=== PATIENT | male | born 1975 | race Caucasian/White ===

== ENCOUNTER 2016-03-17 | Inpatient (IN) | END 2017-03-16 23:59 | disposition other institution (70) | DRG 130 | DX: J96.10 Chronic respiratory failure, unspecified whether with hypoxia or hypercapnia (principal); I46.9 Cardiac arrest, cause unspecified; G93.1 Anoxic brain damage, not elsewhere classified; R40.3 Persistent vegetative state; R13.10 Dysphagia, unspecified; Z99.11 Dependence on respirator [ventilator] status; Z93.0 Tracheostomy status; F32.9 Major depressive disorder, single episode, unspecified; Z86.74 Personal history of sudden cardiac arrest; K27.9 Peptic ulcer, site unspecified, unspecified as acute or chronic, without hemorrhage or perforation; F18.10 Inhalant abuse, uncomplicated; Z93.1 Gastrostomy status; Z16.11 Resistance to penicillins; M24.50 Contracture, unspecified joint; S06.890S Other specified intracranial injury without loss of consciousness, sequela; X83.8XXS Intentional self-harm by other specified means, sequela; Z66 Do not resuscitate ==

== ENCOUNTER 2017-03-17 | Inpatient (IN) | END 2018-03-16 23:59 | disposition still patient (30) | DRG 130 | DX: J96.10 Chronic respiratory failure, unspecified whether with hypoxia or hypercapnia (principal); I46.9 Cardiac arrest, cause unspecified; G93.1 Anoxic brain damage, not elsewhere classified; R40.3 Persistent vegetative state; R13.10 Dysphagia, unspecified; Z99.11 Dependence on respirator [ventilator] status; Z93.0 Tracheostomy status; F32.9 Major depressive disorder, single episode, unspecified; Z86.74 Personal history of sudden cardiac arrest; K27.9 Peptic ulcer, site unspecified, unspecified as acute or chronic, without hemorrhage or perforation; F18.10 Inhalant abuse, uncomplicated; Z93.1 Gastrostomy status; T71.162S Asphyxiation due to hanging, intentional self-harm, sequela; Z16.11 Resistance to penicillins; M24.50 Contracture, unspecified joint; S06.890S Other specified intracranial injury without loss of consciousness, sequela; X83.8XXS Intentional self-harm by other specified means, sequela; Z66 Do not resuscitate; R47.02 Dysphasia ==

== ENCOUNTER 2018-03-17 | Inpatient (IN) | END 2019-03-16 23:59 | disposition still patient (30) | DRG 130 | DX: J96.10 Chronic respiratory failure, unspecified whether with hypoxia or hypercapnia (principal); G93.1 Anoxic brain damage, not elsewhere classified; R40.3 Persistent vegetative state; R13.10 Dysphagia, unspecified; Z86.74 Personal history of sudden cardiac arrest; Z93.1 Gastrostomy status; T79.7XXA Traumatic subcutaneous emphysema, initial encounter; Z99.11 Dependence on respirator [ventilator] status; Z93.0 Tracheostomy status; F32.9 Major depressive disorder, single episode, unspecified; K27.9 Peptic ulcer, site unspecified, unspecified as acute or chronic, without hemorrhage or perforation; F18.10 Inhalant abuse, uncomplicated; T71.162S Asphyxiation due to hanging, intentional self-harm, sequela; Z16.11 Resistance to penicillins; M24.50 Contracture, unspecified joint; S06.890S Other specified intracranial injury without loss of consciousness, sequela; X83.8XXS Intentional self-harm by other specified means, sequela; Z66 Do not resuscitate; R47.02 Dysphasia; X58.XXXA Exposure to other specified factors, initial encounter ==

== ENCOUNTER 2018-09-18 08:10 | Inpatient (IN) | payer MEDICARE, MEDICAID ==
[~2018-09-18] VITALS: Ht 172.7 cm; Wt 77.1 kg
--- NOTE | 2018-09-18 08:10 | NUR ---
PT TRANSFERRED TO ER BED 1B FROM SUB ACUTE ROOM 403. PT PLACED ON HOOPER VENT WITH SAME SETTINGS SUB ACUTE ORDER - AC 14, VT 700, 35%. SHILEY 8 DCT TRACH IS PATENT AND SECURED. BACK UP TRACH AND AMBU BAG ARE AT BEDSIDE. VENT ALARMS ARE ON AND AUDIBLE. VENT IS PLUGGED INTO RED EMERGENCY OUTLET. WILL CONTINUE TO MONITOR.
--- NOTE | 2018-09-18 08:20 | NUR ---
PT IS UNRESPONSIVE AND NON-VERBAL, WHICH IS HIS BASELINE, TERESA SUBRAMANIAN RN FROM SUB-ACUTE UNIT FOR SUBCUTANEOUS EMPHYSEMA. PER REPORT, PT IS VENT-DEPENDENT AND HAD HIS ROUTINE TRACH CHANGE ON 09/16/18 AND THE NURSE NOTICED FACIAL SWELLING AROUND 0100 THIS MORNING (09/18/18) AND SUBSEQUENT CXR REVEALED SUBCUTANEOUS EMPHYSEMA. NEW TRACH WAS PLACED BY THE RT THIS AM AT 0715 AND STAT CXR RESULT IS PENDING. PT WAS MEDICATED W/ 3 MG LORAZEPAM G-TUBE AT 0730 INTERVENTIONIST. VSS. PT DOES NOT APPEAR TO BE IN ANY RESPIRATORY DISTRESS AT THIS TIME. PT DOES HAVE FACIAL EDEMA BUT NAD.
--- NOTE | 2018-09-18 08:29 | NUR ---
PER MORIS REAVES'S REPORT, PT IS DNR/DNT, BUT WAS REQUESTED BY PT'S MOTHER TO TRANSFER TO THE ER. PT'S MOTHER IS AT THE PT'S BEDSIDE AT THIS TIME.
--- NOTE | 2018-09-18 08:38 | NUR ---
PT'S PCP, DR. MORE, SPEAKING W/ ER MD ON PHONE RE PT'S STATUS.
--- NOTE | 2018-09-18 08:45 | NUR ---
KAYLAH AMARO SPEAKING W/ DR. GARCIA, SWIMMING POOL CLEANER, RE PT'S CASE.
--- NOTE | 2018-09-18 09:11 | NUR ---
20G IV ACCESS ESTABLISHED IN R FOOT W/ ER APPROVAL.
[2018-09-18] MEDS ORDERED: BETA15CR4 TP (09:22)
[2018-09-18] MEDS ORDERED: ACET-2154 GT (09:22)
[2018-09-18] MEDS ORDERED: LORA1TAB GT (09:22)
[2018-09-18] MEDS ORDERED: OMEP20CA10 GT (09:22)
[2018-09-18] MEDS ORDERED: VIT60OIN3 TP (09:22)
[2018-09-18] MEDS ORDERED: LACT-209 GT (09:22)
[2018-09-18] MEDS ORDERED: [UNRECOGNIZED DRUG - OTHER] TP (09:22)
[2018-09-18] MEDS ORDERED: IPRATROPIUM NEB (09:22)
[2018-09-18] MEDS ORDERED: PHEN100C4 GT (09:22)
[2018-09-18] MEDS ORDERED: PHEN60TA11 GT (09:22)
[2018-09-18] MEDS ORDERED: COD56OIN TP (09:22)
[2018-09-18] MEDS ORDERED: HYDR1SOL TP (09:22)
[2018-09-18] MEDS ORDERED: PROT946L GT (09:22)
[2018-09-18] MEDS ORDERED: CHOL400T GT (09:22)
[2018-09-18] MEDS ORDERED: CLOT15CR63 TP (09:22)
[2018-09-18] MEDS ORDERED: [UNRECOGNIZED DRUG - CODE] GT (09:22)
[2018-09-18] MEDS ORDERED: ALBU2.5V13 NEB ×2 (09:22)
[2018-09-18] MEDS ORDERED: POLY17PO4 GT (09:22)
[2018-09-18] MEDS ORDERED: PROC25SU29 RC ×2 (09:22)
[2018-09-18 09:30] LABS: CREATININE 0.9 mg/dL (0.6-1.3); POTASSIUM 4.7 mmol/L (3.5-5.1)
[2018-09-18 09:36] LABS: BILIRUBIN,DIRECT 0.2 mg/dL (0.0-0.2); BILIRUBIN,TOTAL 0.7 mg/dL (0.2-1.0); TOTAL PROTEIN, SERUM 7.4 g/dL (6.4-8.2)
[2018-09-18 09:38] LABS: BASOPHILS # (AUTO) 0.1 K/uL (0.0-8.0); BASOPHILS % (AUTO) 0.3 % (0.0-2.0); EOSINOPHILS % (AUTO) 0.1 % (0.0-7.0); HEMATOCRIT 49.2 % (36.7-47.1); HEMOGLOBIN 16.3 g/dL (12.5-16.3); LYMPHOCYTES # (AUTO) 0.9 K/uL (20.0-40.0); MEAN CORPUSCULAR HEMOGLOBIN 32.1 uug (23.8-33.4); MEAN CORPUSCULAR HGB CONC 33 g/dL (32.5-36.3); MEAN CORPUSCULAR VOLUME 97.2 fL (73.0-96.2); MONOCYTES % (AUTO) 4.5 % (0.0-11.0); NEUTROPHILS # (AUTO) 19.6 K/uL (1.8-8.9); NEUTROPHILS % (AUTO) 91.1 % (38.5-71.5); PLATELET COUNT (AUTO) 122 K/uL (152-348); RED BLOOD CELL COUNT(AUTO) 5.06 MIL/uL (4.06-5.63); WHITE BLOOD COUNT (AUTO) 21.5 K/uL (3.6-10.2)
[2018-09-18 09:39] LABS: *BILIRUBIN,URIN NEGATIVE (NEGATIVE); *BLOOD, URINE NEGATIVE (NEGATIVE); *CLARITY,URINE CLEAR (CLEAR); *COLOR,URINE DARK YELLOW (YELLOW); *KETONES,URINE NEGATIVE (NEGATIVE); *UROBILINOGEN,URINE 0.2 E.U./dl (NORMAL); LEUKOCYTE ESTERASE ,URINE NEGATIVE (NEGATIVE); NITRITE, URINE NEGATIVE (NEGATIVE); PH,URINE 5.5 (5.0-8.0); UGLUCOSE NEGATIVE (NEGATIVE)
[2018-09-18 09:45] LABS: BACTERIA,URINE FEW /HPF (NONE SEEN); RBC,URINE NONE SEEN /HPF (0-3); SQUAMOUS EPITHELIAL CELL,UR FEW /HPF (NONE SEEN); WBC,URINE 0-3 /HPF (0-3)
[2018-09-18] MEDS ORDERED: IV NORMAL SALINE 1000 ML BAG IV ONE (10:00)
[2018-09-18] MEDS ORDERED: METRONIDAZOLE 500 MG/NS 100ML 100 ML IV ONE (10:00)
[2018-09-18] MEDS ORDERED: VANCOMYCIN IV 1,000 MG in IV DEXTROSE 5% 250 ML IV ONE (10:00)
[2018-09-18] MEDS ORDERED: CEFEPIME HCL 1 G in IV DEXTROSE 5% 50 ML IV ONE (10:00)
[2018-09-18] MEDS ORDERED: CEFEPIME HCL 1 G VIAL ONE (10:11)
--- NOTE | 2018-09-18 10:45 | NUR ---
ADMITTING REPORT GIVEN TO GEOFFREY REAVES.
--- NOTE | 2018-09-18 11:10 | NUR ---
Pt. admitted to [facility], under care of CARTER PARKS NP. Belongs List completed
--- NOTE | 2018-09-18 11:10 | NUR ---
PT TRANSFERRED TO ROOM 303. AMBU BAG AND BACK UP TRACH ARE AT BEDSIDE. VENT PLUGGED INTO RED EMERGENCY OUTLET. NO COMPLICATIONS DURING TRANSPORT.
--- NOTE | 2018-09-18 11:15 | NUR ---
Received patient from ER, Resident in Bed, trach tube intact and midline connected to Ventilator. No signs of Respiratory distress noted. Suctioned PRN. No signs of Pain or Discomfort. Right Foot Peripheral Line gauge 20 intact.l. Gtube intact and patent. kept clean and dry.
[2018-09-18] MEDS ORDERED: PROCHLORPERAZINE MALEATE 25 MG SUPP.RECT RC PRN (12:15)
[2018-09-18] MEDS ORDERED: JEVITY 1.2 1000 ML LIQUID GT SCH (12:15)
[2018-09-18] MEDS ORDERED: CHLORPROMAZINE GT SCH (12:15)
[2018-09-18] MEDS ORDERED: LORAZEPAM 1 MG TABLET GT PRN (12:15)
[2018-09-18 12:26] VITALS: BP 92/69
[2018-09-18] MEDS ORDERED: ONDANSETRON 4 MG/2 ML VIAL IV PRN (12:30)
--- NOTE | 2018-09-18 13:15 | NUR ---
Pt brought down for CT chest with radiology and RT. Pt stable and nad noted upon leaving the floor.
--- NOTE | 2018-09-18 13:27 | NUR ---
Resident in Bed, ISABELL Midline with single Lumen Inserted by PICC LINE RN.
[2018-09-18] MEDS: JEVITY 1.2 1000 ML LIQUID GT SCH (14:00)
[2018-09-18] MEDS ORDERED: CEFEPIME HCL 1 G in IV DEXTROSE 5% 50 ML IV SCH (14:00)
[2018-09-18] MEDS: IV NS 1000 ML 1,000 ML IV PRN (14:10)
[2018-09-18] MEDS ORDERED: chlorproMAZINE 25 MG TABLET GT PRN (14:30)
[2018-09-18] MEDS: ALBUTEROL SULFATE 2.5 MG/ 0.5 ML NEBU NEB SCH ×2 (15:05→19:08)
[2018-09-18] MEDS: IPRATROPIUM BROMIDE 0.5 MG/2.5 ML NEBU NEB SCH ×2 (15:05→19:08)
[2018-09-18] MEDS: METRONIDAZOLE 500 MG/NS 100ML 500 MG in PREMIXED 1 EACH IV SCH ×2 (15:14→21:31)
--- NOTE | 2018-09-18 15:14 | NUR ---
CLINICAL PHARMACY NOTE: VANCOMYCIN DOSING Request for vancomycin dosing on 42 y/o male 172.72cm 76.2Kg for sepsis temp 99.6 WBC 21.5 BUN 15 Scr 0.9 also on Cefepime and Flagyl Received vancomycin 1gm in ER. Continue vancomycin 1gm ivpb q10h estimated trough 15.7. Will order trough level prior to 4th dose. Will continue to monitor
[2018-09-18] MEDS ORDERED: ALBUTEROL SULFATE 2.5 MG/ 0.5 ML NEBU NEB PRN (15:30)
--- NOTE | 2018-09-18 15:34 | NUR ---
Spoke with Dr. Hammond on the telephone and reported CT chest results. New orders received and carried out. Ct Tech made aware of MD's plans.
[2018-09-18 15:53] VITALS: BP 97/66
--- NOTE | 2018-09-18 16:56 | NUR ---
Called KAUSHIK Blair (Mother) and Left Voicemail regarding Trach Placement and Bronchoscopy Consent, awaiting for call back.
[2018-09-18] MEDS ORDERED: Medication Not On Formulary EA (Omeprazole 20 MG) GT SCH (17:00)
--- NOTE | 2018-09-18 17:25 | NUR ---
Spoke with Gelacio (mother) on the telephone and made aware regarding pt's bronchoscopy procedure for 1000 tomorrow. Mother stated that she will be here around 0930 to speak with the MD before signing the consent.
[2018-09-18] MEDS: PANTOPRAZOLE ORAL SUSPENSION 40 MG SUSPDR.PKT GT SCH (17:26)
[2018-09-18] MEDS: CEFEPIME HCL 1 G in IV DEXTROSE 5% 50 ML IV SCH (17:26)
--- NOTE | 2018-09-18 20:00 | NUR ---
RECEIVED PT. OPENS HIS EYES TO ANY NOXIOUS STIMULI. TRACH TO VENT W/ SETTINGS OF AC-14, TV-700, FIO2-35% W/ O2 SAT OF 99%. SUCTIONED VIA TRACH W/ MINIMAL TANNISH THIN MUCOUS. G-TUBE INTACT & CHECKED RESIDUAL NONE NOTED. ON TUBE OF JEVITY 1.2 @70CC/HR. IVF NS @ 75CC/HR VIA ISABELL MIDLINE REPOSITIONED ON HIS SIDE W/ HOB ELEVATED.
[2018-09-18] MEDS: VANCOMYCIN IV 1 G in PREMIXED 0 EACH IV SCH (20:39)
[2018-09-18] MEDS: CHOLECALCIFEROL 400 UNITS TABLET GT SCH (20:39)
[2018-09-18] MEDS: PHENOBARBITAL 60 MG TABLET GT SCH (20:39)
[2018-09-18] MEDS: PHENYTOIN 100 MG/4 ML UDC GT SCH (20:39)
[2018-09-18 20:40] VITALS: BP 101/64
[2018-09-18] MEDS: PROTEIN SUPPLEMENT (PROSTAT) 30 ML LIQUID GT SCH (20:46)
[2018-09-18] MEDS: COD LIVER OIL/ZINC OXIDE OINT 113 GM TUBE TP SCH (20:51)
[2018-09-18] MEDS ORDERED: Medication Not On Formulary EA (Protein Supplement (Promod) 30 ML) GT SCH (21:00)
[2018-09-18] MEDS ORDERED: PHENYTOIN SODIUM EXTENDED 100 MG CAPSULE.SA PO SCH (21:00)
--- NOTE | 2018-09-18 22:00 | NUR ---
HS CARE DONE REPOSITIONED W/ HOB ELEVATED.
[2018-09-19] VITALS (10 sets, daily range): BP systolic 97–135; BP diastolic 56–72
--- NOTE | 2018-09-19 | NUR ---
OFF G-TUBE FDG, PT. IS NPO.
[2018-09-19] MEDS: CEFEPIME HCL 1 G in IV DEXTROSE 5% 50 ML IV SCH ×3 (01:57→17:50)
[2018-09-19] MEDS: METRONIDAZOLE 500 MG/NS 100ML 500 MG in PREMIXED 1 EACH IV SCH ×3 (05:19→21:43)
[2018-09-19 05:28] LABS: BASOPHILS % (AUTO) 0.5 % (0.0-2.0); EOSINOPHILS # (AUTO) 0.1 K/uL (0.0-0.7); EOSINOPHILS % (AUTO) 1.5 % (0.0-7.0); HEMATOCRIT 42.8 % (36.7-47.1); HEMOGLOBIN 14.6 g/dL (12.5-16.3); LYMPHOCYTES # (AUTO) 1.4 K/uL (20.0-40.0); LYMPHOCYTES % (AUTO) 15.8 % (20.5-51.5); MEAN CORPUSCULAR HEMOGLOBIN 32.9 uug (23.8-33.4); MEAN CORPUSCULAR HGB CONC 34 g/dL (32.5-36.3); MEAN CORPUSCULAR VOLUME 96.6 fL (73.0-96.2); MONOCYTES # (AUTO) 0.7 K/uL (2.0-10.0); MONOCYTES % (AUTO) 7.4 % (0.0-11.0); NEUTROPHILS # (AUTO) 6.8 K/uL (1.8-8.9); NEUTROPHILS % (AUTO) 74.8 % (38.5-71.5); PLATELET COUNT (AUTO) 99 K/uL (152-348); RED BLOOD CELL COUNT(AUTO) 4.43 MIL/uL (4.06-5.63); WHITE BLOOD COUNT (AUTO) 9.1 K/uL (3.6-10.2)
--- NOTE | 2018-09-19 05:40 | NUR ---
AM CARE DONE. ORAL CARE DONE. REMAINS NPO.REPOSITIONED W/ HOB ELEVATED.
[2018-09-19 05:47] LABS: BILIRUBIN,TOTAL 0.6 mg/dL (0.2-1.0); CREATININE 0.7 mg/dL (0.6-1.3); MAGNESIUM 1.8 mg/dL (1.8-2.4); PHOSPHOROUS 2.5 mg/dL (2.5-4.9); POTASSIUM 3.7 mmol/L (3.5-5.1); TOTAL PROTEIN, SERUM 6.2 g/dL (6.4-8.2)
[2018-09-19 05:53] LABS: LYMPHOCYTES % (MANUAL) 16 % (20-40); MONOCYTES % (MANUAL) 7 % (2-10); NEUTROPHILS % (MANUAL) 77 % (42-75)
[2018-09-19] MEDS: VANCOMYCIN IV 1 G in PREMIXED 0 EACH IV SCH ×2 (06:13→16:19)
[2018-09-19] MEDS: ALBUTEROL SULFATE 2.5 MG/ 0.5 ML NEBU NEB SCH ×4 (07:28→19:15)
[2018-09-19] MEDS: IPRATROPIUM BROMIDE 0.5 MG/2.5 ML NEBU NEB SCH ×4 (07:28→19:15)
--- NOTE | 2018-09-19 07:28 | NUR ---
PT RECEIVED TRACH TO VENT ON CMV, PT IS ON A HOOPER VENT ON SETTINGS OF A/C 14, VT 700, AND 35% FIO2. VENT PARAMETERS AND ALARMS CHECKED, ALARMS ARE AUDIBLE. SALVADOR #8 TRACH IS PATENT AND SECURE. IN-LINE TX TOLERATED WELL, NO ADVERSE REACTION NOTED. PT IS TOLERATING VENT SETTINGS WELL, NO RESP. DISTRESS NOTED AT THIS TIME. AMBU-BAG AND BACK-UP TRACH AT BEDSIDE. VENT PLUGGED INTO RED OUTLET. SUCTION PRN. WILL CONTINUE TO MONITOR.
[2018-09-19] MEDS ORDERED: LIDOCAINE 2% 30 ML JELLY MC ONE (07:40)
[2018-09-19] MEDS ORDERED: LIDOCAINE 4% TOPICAL 50 ML BOTTLE TP ONE ×2 (07:40→10:00)
[2018-09-19] MEDS: PHENOBARBITAL 60 MG TABLET GT SCH ×2 (08:07→21:29)
[2018-09-19] MEDS: PHENYTOIN 100 MG/4 ML UDC GT SCH ×2 (08:07→21:29)
[2018-09-19] MEDS: PANTOPRAZOLE ORAL SUSPENSION 40 MG SUSPDR.PKT GT SCH ×2 (08:07→16:19)
[2018-09-19] MEDS: CHOLECALCIFEROL 400 UNITS TABLET GT SCH ×2 (08:08→21:29)
[2018-09-19] MEDS: PROTEIN SUPPLEMENT (PROSTAT) 30 ML LIQUID GT SCH ×2 (08:08→21:43)
[2018-09-19] MEDS: MIRALAX 17 GM POWD.PACK GT SCH (08:09)
[2018-09-19] MEDS: COD LIVER OIL/ZINC OXIDE OINT 113 GM TUBE TP SCH ×2 (08:09→21:32)
[2018-09-19] MEDS: VITAMINS A AND D OINT TP SCH (08:09)
[2018-09-19 09:56] LABS: ABG BASE EXCESS -1.1 mmol/L; ABG HCO3 22.8 mmol/L; ABG PH 7.419 (7.350-7.450); ABG PO2 127.6 mmHg (75.0-100.0); ABG SITE RIGHT RADIAL; ABG TOTAL HEMOGLOBIN 15.6 G/dL (13.5-18.0); COHb 1.5 % (0.5-1.5); MetHb 0.2 % (0.0-1.5); O2Hb 97.4 % (94.0-97.0); VENT MODE VENT - A/C; VT, ABG 700 mL
[2018-09-19] MEDS ORDERED: MIDAZOLAM HCL 2 MG/2 ML VIAL IV ONE ×2 (10:15→11:00)
--- NOTE | 2018-09-19 10:45 | NUR ---
Dr. Hammond in the unit for broncoscopy consent signed by pt's mother. patient premedicated with versed 2mg as ordered by Md. vitals stable: HR 99 sbp of 97/64, saturation in the 95-98%. procedure lasted from this time to 1053 trache replaced and shiley #8 XLT distal left in placed. R. T. team at bedside and assisted with procedure, saturation wnl see VS flowsheet. 2nd dose of versed not given. waste of med done per px protocol with charge r.n. as witness. During recovery time patient remained with vitals and saturation wnl.
--- NOTE | 2018-09-19 10:55 | NUR ---
PRE PROCEDURE PT PLACED ON 100% FIO2. LIDOCAINE 4% NEBULIZED PRE PROCEDURE PER DR. GARCIA ORDER. TRACH CHANGE PERFORMED BY NIKI RT AND HARMEET RT, DR. GARCIA AT BEDSIDE. TRACH CHANGE SUCCESSFUL WITHOUT COMPLICATIONS. NEW SHILEY #[id number] DISTAL IS IN PLACE, TRACH IS PATENT AND SECURE. BRONCHOSCOPY PERFORMED BY DR. GARCIA, RT NIKI, HARMEET AND MINDA ASSISTED. PROCEDURE WENT WITHOUT INCIDENT. FIO2 TITRATED BACK TO 35%, SPO2 NORMAL. NO SOB NOTED. WILL CONTINUE TO MONITOR.
[2018-09-19] MEDS ORDERED: MIDAZOLAM HCL 2 MG/2 ML VIAL IV PRN (11:00)
[2018-09-19] MEDS: IV NS 1000 ML 1,000 ML IV PRN (11:14)
[2018-09-19] MEDS: ACETAMINOPHEN 325 MG TABLET GT PRN (12:50)
[2018-09-19] MEDS: JEVITY 1.2 1000 ML LIQUID GT SCH (12:50)
--- NOTE | 2018-09-19 14:16 | NUR ---
CLINICAL PHARMACY NOTE: VANCOMYCIN DOSING S:Continue vancomycin dosing on 42 y/o male 172.72cm 76.2Kg for sepsis O:temp 99.7 WBC 9.1 BUN 14 Scr 0.7 also on Cefepime and Flagyl A/P: Will continue Vancomycin 1gram IV every 10 hrs(3rd dose due at 1700 today) and draw trough by 4th dose(ordered for tomorrow at 0230) for expected trough around 15. Will endorse nurse to hold dose for over 20. Will follow the level in am for further dosing.
[2018-09-20 00:20] VITALS: BP 121/61
[2018-09-20] MEDS: CEFEPIME HCL 1 G in IV DEXTROSE 5% 50 ML IV SCH ×3 (01:52→17:15)
[2018-09-20] MEDS: IV NS 1000 ML 1,000 ML IV PRN ×2 (02:00→21:30)
[2018-09-20] MEDS: VANCOMYCIN IV 1 G in PREMIXED 0 EACH IV SCH (03:28)
[2018-09-20 04:05] VITALS: BP 120/66
[2018-09-20 05:25] LABS: BASOPHILS # (AUTO) 0.1 K/uL (0.0-8.0); BASOPHILS % (AUTO) 0.9 % (0.0-2.0); EOSINOPHILS # (AUTO) 0.2 K/uL (0.0-0.7); EOSINOPHILS % (AUTO) 3.4 % (0.0-7.0); HEMATOCRIT 40.2 % (36.7-47.1); HEMOGLOBIN 13.7 g/dL (12.5-16.3); LYMPHOCYTES # (AUTO) 1.1 K/uL (20.0-40.0); LYMPHOCYTES % (AUTO) 17.3 % (20.5-51.5); MEAN CORPUSCULAR HEMOGLOBIN 32.6 uug (23.8-33.4); MEAN CORPUSCULAR HGB CONC 34 g/dL (32.5-36.3); MEAN CORPUSCULAR VOLUME 95.8 fL (73.0-96.2); MONOCYTES # (AUTO) 0.6 K/uL (2.0-10.0); MONOCYTES % (AUTO) 8.9 % (0.0-11.0); NEUTROPHILS # (AUTO) 4.6 K/uL (1.8-8.9); NEUTROPHILS % (AUTO) 69.5 % (38.5-71.5); PLATELET COUNT (AUTO) 99 K/uL (152-348); WHITE BLOOD COUNT (AUTO) 6.7 K/uL (3.6-10.2)
[2018-09-20 05:31] LABS: CREATININE 0.7 mg/dL (0.6-1.3); MAGNESIUM 1.7 mg/dL (1.8-2.4); PHOSPHOROUS 2.7 mg/dL (2.5-4.9); POTASSIUM 3.6 mmol/L (3.5-5.1)
[2018-09-20] MEDS: METRONIDAZOLE 500 MG/NS 100ML 500 MG in PREMIXED 1 EACH IV SCH ×3 (06:28→22:12)
[2018-09-20] MEDS: ALBUTEROL SULFATE 2.5 MG/ 0.5 ML NEBU NEB SCH ×4 (07:15→19:25)
[2018-09-20] MEDS: IPRATROPIUM BROMIDE 0.5 MG/2.5 ML NEBU NEB SCH ×4 (07:15→19:25)
[2018-09-20] MEDS: PHENOBARBITAL 60 MG TABLET GT SCH ×2 (08:01→21:47)
[2018-09-20] MEDS: CHOLECALCIFEROL 400 UNITS TABLET GT SCH ×2 (08:02→21:47)
[2018-09-20] MEDS: PHENYTOIN 100 MG/4 ML UDC GT SCH ×2 (08:02→21:46)
[2018-09-20] MEDS: MIRALAX 17 GM POWD.PACK GT SCH (08:02)
[2018-09-20] MEDS: PANTOPRAZOLE ORAL SUSPENSION 40 MG SUSPDR.PKT GT SCH ×2 (08:02→17:15)
[2018-09-20 08:04] VITALS: BP 131/60
[2018-09-20] MEDS: VITAMINS A AND D OINT TP SCH (08:11)
[2018-09-20] MEDS: COD LIVER OIL/ZINC OXIDE OINT 113 GM TUBE TP SCH ×2 (08:12→21:51)
[2018-09-20] MEDS: PROTEIN SUPPLEMENT (PROSTAT) 30 ML LIQUID GT SCH ×2 (08:12→21:45)
--- NOTE | 2018-09-20 10:20 | NUR ---
CLINICAL PHARMACY NOTE: VANCOMYCIN DOSING S:To continue vancomycin dosing on 42 y/o male patient for sepsis (likely due to HCAP) O:temp 98.3 WBC 6.7 BUN 13 Scr 0.7 Vanco trough level: 11.6 (on 09/20 at 0230) wt 76 kg ht 172.7 cm A/P: Since vanco trough level is 11.6 mcg/ml, will change dose to Vancomycin 1250 mg IV every 10 hrs. 1st dose due at 1200 today) and draw trough by 4th dose(not yet ordered) for expected trough around 15. Will follow.
[2018-09-20] MEDS: JEVITY 1.2 1000 ML LIQUID GT SCH (11:43)
[2018-09-20] MEDS: MAGNESIUM SULFATE/D5W 100 ML IV SCH ×2 (11:44→13:21)
[2018-09-20 12:00] VITALS: BP 124/61
[2018-09-20] MEDS: VANCOMYCIN IV 1,250 MG in IV DEXTROSE 5% 500 ML IV SCH ×2 (12:15→22:47)
[2018-09-20 16:00] VITALS: BP 119/59
--- NOTE | 2018-09-20 16:50 | NUR ---
Report given to Flash Bolden all questions answered. pending medication administration and I&O doc. endorse to Flash Addendum: 09/20/18 at 1738 by KATI YAO RN patient left with vent and trache in place care done PP. Vent setting of A/C14, tv700, FIO2 35%. G-T to feeding JV 1.2 at 70cc/hr. no residuals, and pt. tolerating well. No skin complications noted. Patient afebrile.
--- NOTE | 2018-09-20 18:03 | NUR ---
PT CONTINUES ON MECHANICAL VENTILATION, NO S/S OF RESPIRATORY DISTRESS NOTED THROUGHOUT SHIFT. DOING WELL ON CURRENT SETTINGS, NO CHANGES MADE. WILL CONTINUE TO MONITOR.
[2018-09-20 20:03] VITALS: BP 151/72
--- NOTE | 2018-09-20 21:52 | NUR ---
Desitin medication does not have a barcode. Medication was transferred with patient from the subacute unit.
--- NOTE | 2018-09-20 23:01 | NUR ---
PT RECEIVED ON A HOOPER VENTILATOR WITH THE FOLLOWING SETTINGS THAT ARE CHARTED ON THE MECHANICAL VENT NOTES. TRACH TUBE IS PATENT AND SECURED WITH TRACH TIES. HME CHANGED. HHN TX GIVEN PER MD ORDER'S AND WAS TOLERATED WELL W/ NO ADVERSE REACTIONS. SUCTIONED SMALL AMOUNTS OF THICK WHITE/YELLOW SECRETIONS. VENT ALARMS ARE ON AND AUDIBLE. VENT IS PLUGGED IN THE RED OUTLET. BACK UP TRACH AND AMBU BAG IS BY BEDSIDE. PT IS TOLERATING CURRENT VENT SETTINGS WELL AT THIS TIME WITH NO SOB NOTED. WILL CONTINUE TO MONITOR.
[2018-09-21] VITALS: BP 111/51
[2018-09-21] MEDS: CEFEPIME HCL 1 G in IV DEXTROSE 5% 50 ML IV SCH ×3 (01:14→16:45)
[2018-09-21 04:00] VITALS: BP 120/52
[2018-09-21] MEDS: METRONIDAZOLE 500 MG/NS 100ML 500 MG in PREMIXED 1 EACH IV SCH ×3 (05:10→21:04)
[2018-09-21 05:45] LABS: CREATININE 0.7 mg/dL (0.6-1.3); MAGNESIUM 1.9 mg/dL (1.8-2.4); POTASSIUM 3.7 mmol/L (3.5-5.1)
[2018-09-21 05:48] LABS: BASOPHILS # (AUTO) 0.1 K/uL (0.0-8.0); EOSINOPHILS # (AUTO) 0.2 K/uL (0.0-0.7); EOSINOPHILS % (AUTO) 3.9 % (0.0-7.0); HEMOGLOBIN 13.7 g/dL (12.5-16.3); LYMPHOCYTES # (AUTO) 0.9 K/uL (20.0-40.0); LYMPHOCYTES % (AUTO) 17.5 % (20.5-51.5); MEAN CORPUSCULAR HEMOGLOBIN 32.4 uug (23.8-33.4); MEAN CORPUSCULAR HGB CONC 34 g/dL (32.5-36.3); MONOCYTES # (AUTO) 0.5 K/uL (2.0-10.0); MONOCYTES % (AUTO) 9.1 % (0.0-11.0); NEUTROPHILS # (AUTO) 3.7 K/uL (1.8-8.9); NEUTROPHILS % (AUTO) 68.5 % (38.5-71.5); PLATELET COUNT (AUTO) 107 K/uL (152-348); RED BLOOD CELL COUNT(AUTO) 4.21 MIL/uL (4.06-5.63); WHITE BLOOD COUNT (AUTO) 5.4 K/uL (3.6-10.2)
--- NOTE | 2018-09-21 07:41 | NUR ---
RECEIVED PT ON HOOPER VENT. PT IS TRACHED WITH A SHILEY 8 XLTD TRACH. TRACH IS PATENT AND SECURED VIA TRACH TIES. REFER TO RESPIRATORY VENT COMPLEX CHARTING FOR VENT SETTINGS. VENT ALARMS CHECKED, ARE ON AND FUNCTIONING PROPERLY. AMBU BAG AND BACK UP TRACH ARE AT BEDSIDE. SUCTIONED MODERATE AMOUNT OF THICK, PALE SECRETIONS. AMBU BAG IS AT BEDSIDE. WILL CONTINUE TO MONITOR.
[2018-09-21 07:45] VITALS: BP 127/72
[2018-09-21] MEDS: VANCOMYCIN IV 1,250 MG in IV DEXTROSE 5% 500 ML IV SCH ×2 (07:48→18:38)
[2018-09-21] MEDS: ALBUTEROL SULFATE 2.5 MG/ 0.5 ML NEBU NEB SCH ×4 (07:55→19:15)
[2018-09-21] MEDS: IPRATROPIUM BROMIDE 0.5 MG/2.5 ML NEBU NEB SCH ×4 (07:55→19:15)
--- NOTE | 2018-09-21 08:00 | NUR ---
RESTING COMFORTABLY, NO SS OF PAIN OR RESPIRATORY DISTRESS WITH CURRENT VENT SETTINGS.
[2018-09-21] MEDS: MIRALAX 17 GM POWD.PACK GT SCH (08:05)
[2018-09-21] MEDS: PANTOPRAZOLE ORAL SUSPENSION 40 MG SUSPDR.PKT GT SCH ×2 (08:06→16:31)
[2018-09-21] MEDS: PHENOBARBITAL 60 MG TABLET GT SCH ×2 (08:06→20:00)
[2018-09-21] MEDS: PHENYTOIN 100 MG/4 ML UDC GT SCH ×2 (08:06→20:00)
[2018-09-21] MEDS: CHOLECALCIFEROL 400 UNITS TABLET GT SCH ×2 (08:06→20:00)
[2018-09-21] MEDS: PROTEIN SUPPLEMENT (PROSTAT) 30 ML LIQUID GT SCH ×2 (08:07→20:03)
[2018-09-21] MEDS: COD LIVER OIL/ZINC OXIDE OINT 113 GM TUBE TP SCH ×2 (08:08→20:01)
[2018-09-21] MEDS: VITAMINS A AND D OINT TP SCH (08:09)
--- NOTE | 2018-09-21 10:09 | NUR ---
CLINICAL PHARMACY NOTE: VANCOMYCIN DOSING S:To continue vancomycin dosing on 42 y/o male patient for sepsis (likely due to HCAP) O:temp 98.7 WBC 5.4 BUN 10 Scr 0.7 Vanco trough level: 11.6 (on 09/20 at 0230) wt 76 kg ht 172.7 cm A/P: Will continue same dose of Vancomycin 1250 mg IV every 10 hrs for now. Plan to draw vanco trough level before 4 th dsoe (ordered for today at 1730). Pharmacy shall review the level & adjust the dose if needed. Will follow. Addendum: 09/21/18 at 1857 by ALAINA DAVIES vancomycin trough is back @ 16.9 within therapeutic range will continue with the same dose.
[2018-09-21 11:40] VITALS: BP 113/60
--- NOTE | 2018-09-21 12:00 | NUR ---
TOLERATING TF WELL AT 70ML/HR. CONTINUE WITH IV ANTIBIOTIC NO REACTION NOTED
[2018-09-21 16:00] VITALS: BP 109/70
--- NOTE | 2018-09-21 16:22 | NUR ---
NO ACUTE CHANGE CONTINUE CURRENT TX PLAN
[2018-09-21] MEDS: IV NS 1000 ML 1,000 ML IV PRN (16:31)
--- NOTE | 2018-09-21 19:15 | NUR ---
RECEIVED PT ON HOOPRE VENT AC 14 VT 700 FIO2 35%. PT AWAKE AND ALERT. TRACH IN PLACED AND SECURED WITH TRACH TIE. TRACH CARE DONE WITHOUT COMPLICATIONS NOTED. BACK UP TRACH AND AMBU BAG AT BEDSIDE. IN LINE TX GIVEN ORDERED. SUCTION LAVAGE PRN. VENT CHECKED, ALARMS WORKING WELL AND AUDIBLE. NO DISTRESS NOTED AT THIS TIME. WILL CONTINUE TO MONITOR.
[2018-09-21 19:30] VITALS: BP 130/76
[2018-09-21] MEDS: JEVITY 1.2 1000 ML LIQUID GT SCH (22:00)
[2018-09-21] MEDS: ACETAMINOPHEN 325 MG TABLET GT PRN (23:59)
[2018-09-22 00:26] VITALS: BP 142/85
[2018-09-22] MEDS: CEFEPIME HCL 1 G in IV DEXTROSE 5% 50 ML IV SCH ×3 (01:53→17:06)
[2018-09-22] MEDS: VANCOMYCIN IV 1,250 MG in IV DEXTROSE 5% 500 ML IV SCH ×2 (03:04→13:49)
[2018-09-22 04:00] VITALS: BP 139/80
[2018-09-22] MEDS: METRONIDAZOLE 500 MG/NS 100ML 500 MG in PREMIXED 1 EACH IV SCH ×2 (05:10→16:09)
--- NOTE | 2018-09-22 05:38 | NUR ---
Patient rested well in between care; suctioned secretions via trache and orally; low grade fever last night at 100.3; cooling measures done and Tylenol administered via GT; pt tolerated GTF no residual; repositioned q2h; aspiration precautions observed; trace and oral care done; continue to monitor; continue plan of care.
[2018-09-22 05:40] LABS: BASOPHILS % (AUTO) 0.9 % (0.0-2.0); EOSINOPHILS # (AUTO) 0.2 K/uL (0.0-0.7); EOSINOPHILS % (AUTO) 3.1 % (0.0-7.0); HEMATOCRIT 41.6 % (36.7-47.1); HEMOGLOBIN 14.3 g/dL (12.5-16.3); LYMPHOCYTES # (AUTO) 0.9 K/uL (20.0-40.0); LYMPHOCYTES % (AUTO) 16.8 % (20.5-51.5); MEAN CORPUSCULAR HEMOGLOBIN 32.8 uug (23.8-33.4); MEAN CORPUSCULAR HGB CONC 34 g/dL (32.5-36.3); MEAN CORPUSCULAR VOLUME 95.2 fL (73.0-96.2); MONOCYTES # (AUTO) 0.5 K/uL (2.0-10.0); NEUTROPHILS # (AUTO) 3.6 K/uL (1.8-8.9); NEUTROPHILS % (AUTO) 70.2 % (38.5-71.5); PLATELET COUNT (AUTO) 116 K/uL (152-348); RED BLOOD CELL COUNT(AUTO) 4.37 MIL/uL (4.06-5.63); WHITE BLOOD COUNT (AUTO) 5.1 K/uL (3.6-10.2)
[2018-09-22 06:08] LABS: CREATININE 0.8 mg/dL (0.6-1.3); MAGNESIUM 1.8 mg/dL (1.8-2.4); PHOSPHOROUS 2.8 mg/dL (2.5-4.9)
--- NOTE | 2018-09-22 07:42 | NUR ---
NO SIGNS OF DISTRESS NOTED ON CURRENT VENT SETTINGS. PT IS CURRENTLY RUNNING LOW GRADE FEVER. WILL INFORM MD. PT AWAKE PT RESPONDS TO VERBAL STIMULI. WILL CONTINUE WITH LIU CARE WILL REMAIN SINUS RHYTHM ON MONITOR. WILL CONTINUE WITH PLAN OF CARE.
[2018-09-22 07:53] VITALS: BP 141/96
[2018-09-22] MEDS: IPRATROPIUM BROMIDE 0.5 MG/2.5 ML NEBU NEB SCH ×4 (07:59→19:33)
[2018-09-22] MEDS: ALBUTEROL SULFATE 2.5 MG/ 0.5 ML NEBU NEB SCH ×4 (07:59→19:33)
--- NOTE | 2018-09-22 08:00 | NUR ---
PATIENT RECEIVED ON VENT WITH SETTINGS OF AC14, VT 700, 35% FiO2. NO SOB NOTED. PATIENT HAS A SHILEY 8XLT IN PLACE, PATENT AND SECURED WITH TRACH TIE. AMBUBAG/BACK UP TRACH AT PATIENT BEDSIDE. VENT IS PLUGGED INTO RED EMERGENCY OUTLET. B/S RHONCHI BILATERALLY. TXS WILL BE GIVEN ORDERED. VENT ALARMS ARE ON AND AUDIBLE. TRACH CARE DONE, NO COMPLICATIONS. ORAL CARE DONE. PATIENT WILL CONTINUE TO BE SUCTIONED PRN AND MONITORED THROUGHOUT SHIFT, WILL REPORT ANY CHANGES.
[2018-09-22] MEDS: PHENYTOIN 100 MG/4 ML UDC GT SCH ×2 (08:19→21:08)
[2018-09-22] MEDS: PANTOPRAZOLE ORAL SUSPENSION 40 MG SUSPDR.PKT GT SCH ×2 (08:19→16:47)
[2018-09-22] MEDS: PHENOBARBITAL 60 MG TABLET GT SCH ×2 (08:20→21:08)
[2018-09-22] MEDS: ACETAMINOPHEN 325 MG TABLET GT PRN (08:20)
[2018-09-22] MEDS: Z GUARD REMEDY PASTE 57 GM TUBE TOP PRN (08:20)
[2018-09-22] MEDS: CHOLECALCIFEROL 400 UNITS TABLET GT SCH ×2 (08:20→21:08)
[2018-09-22] MEDS: CLOTRIMAZOLE 1% CREAM 30 GM TUBE TP PRN (08:21)
[2018-09-22] MEDS: VITAMINS A AND D OINT TP SCH (08:21)
[2018-09-22] MEDS: COD LIVER OIL/ZINC OXIDE OINT 113 GM TUBE TP SCH ×2 (08:22→21:09)
[2018-09-22] MEDS: PROTEIN SUPPLEMENT (PROSTAT) 30 ML LIQUID GT SCH ×2 (08:22→21:08)
[2018-09-22] MEDS: MIRALAX 17 GM POWD.PACK GT SCH (08:23)
[2018-09-22] MEDS: JEVITY 1.2 1000 ML LIQUID GT SCH (09:13)
[2018-09-22 11:41] VITALS: BP 139/86
--- NOTE | 2018-09-22 12:10 | NUR ---
PT IS CURRENTLY RESTING RESTING COMFORTABLY, NO SS OF PAIN OR RESPIRATORY DISTRESS WITH CURRENT VENT SETTINGS. LOW GRADE FEVER OF 99.1 AXILLARY. AWARE. TYLENOL PRN ADMINISTERED. Addendum: 09/22/18 at 1551 by NOEMÍ WILSON RN TYLENOL 650 MG
--- NOTE | 2018-09-22 12:56 | NUR ---
CLINICAL PHARMACY NOTE: VANCOMYCIN DOSING S:To continue vancomycin dosing on 42 y/o male patient for sepsis (likely due to HCAP) O:temp 99 WBC 5.1 BUN 9 Scr 0.8 Vanco trough level: 11.6 (on 09/20 at 0230) Vanco trough level: 16.9 (on 09/21 at 1730) wt 76 kg ht 172.7 cm A/P: Will continue same dose of Vancomycin 1250 mg IV every 10 hrs for today as vanco trough level within therapeutic range yesterday. Will monitor renal function & repeat the level as needed. Will follow.
[2018-09-22] MEDS: IV NS 1000 ML 1,000 ML IV PRN ×2 (13:51→19:00)
--- NOTE | 2018-09-22 16:05 | NUR ---
Pt shows no distress or signs of sob on current vent settings; suctioned secretions via trach and orally; current temperature is 98.7; pt tolerated GTF well no residual; repositioned q2h; aspiration precautions observed; oral care done; continue to monitor; continue with current plan of care.
[2018-09-22 16:23] VITALS: BP 136/65
[2018-09-22 20:06] VITALS: BP 133/69
--- NOTE | 2018-09-22 20:16 | NUR ---
Trached patient endorsed on CMV with ordered vent settings of AC 14, vt700, 35% FiO2. He is trached with a Shiley 8 XT. ASSISTANT BASEBALL COACH used for cuff assessment. No signs of respiratory distress noted at this time. Inline treatment tolerated well, no adverse reactions noted. Alarms are on/audible. Spare trach at bedside. Will continue to monitor throughout shift.
[2018-09-23] MEDS: CEFEPIME HCL 1 G in IV DEXTROSE 5% 50 ML IV SCH ×3 (02:12→17:41)
[2018-09-23 04:00] VITALS: BP 110/62
[2018-09-23 06:25] LABS: BASOPHILS # (AUTO) 0.1 K/uL (0.0-8.0); BASOPHILS % (AUTO) 1.2 % (0.0-2.0); EOSINOPHILS # (AUTO) 0.2 K/uL (0.0-0.7); EOSINOPHILS % (AUTO) 3.7 % (0.0-7.0); HEMATOCRIT 38.6 % (36.7-47.1); HEMOGLOBIN 13.5 g/dL (12.5-16.3); LYMPHOCYTES # (AUTO) 1.1 K/uL (20.0-40.0); LYMPHOCYTES % (AUTO) 19.6 % (20.5-51.5); MEAN CORPUSCULAR HEMOGLOBIN 33.1 uug (23.8-33.4); MEAN CORPUSCULAR HGB CONC 35 g/dL (32.5-36.3); MEAN CORPUSCULAR VOLUME 94.9 fL (73.0-96.2); MONOCYTES # (AUTO) 0.7 K/uL (2.0-10.0); MONOCYTES % (AUTO) 11.7 % (0.0-11.0); NEUTROPHILS # (AUTO) 3.6 K/uL (1.8-8.9); NEUTROPHILS % (AUTO) 63.8 % (38.5-71.5); PLATELET COUNT (AUTO) 108 K/uL (152-348); RED BLOOD CELL COUNT(AUTO) 4.07 MIL/uL (4.06-5.63); WHITE BLOOD COUNT (AUTO) 5.6 K/uL (3.6-10.2)
[2018-09-23 06:47] LABS: CARBON DIOXIDE 26 mmol/L (21-32); CHLORIDE 109 mmol/L (98-107); CREATININE 0.6 mg/dL (0.6-1.3); GLUCOSE 112 mg/dL (74-106); POTASSIUM 3.7 mmol/L (3.5-5.1); UREA NITROGEN, BLOOD 11 mg/dL (7-18)
--- NOTE | 2018-09-23 07:30 | NUR ---
NO SIGNS OF DISTRESS NOTED ON CURRENT VENT SETTINGS. PT AWAKE PT RESPONDS TO VERBAL STIMULI. WILL CONTINUE WITH LIU CARE WILL REMAIN SINUS RHYTHM ON MONITOR. WILL CONTINUE WITH PLAN OF CARE.
[2018-09-23] MEDS: IPRATROPIUM BROMIDE 0.5 MG/2.5 ML NEBU NEB SCH ×3 (07:40→15:18)
[2018-09-23] MEDS: ALBUTEROL SULFATE 2.5 MG/ 0.5 ML NEBU NEB SCH ×3 (07:40→15:18)
[2018-09-23] MEDS: IV NS 1000 ML 1,000 ML IV PRN (08:15)
[2018-09-23] MEDS: MIRALAX 17 GM POWD.PACK GT SCH (08:53)
[2018-09-23] MEDS: PROTEIN SUPPLEMENT (PROSTAT) 30 ML LIQUID GT SCH ×2 (08:53→20:10)
[2018-09-23] MEDS: CHOLECALCIFEROL 400 UNITS TABLET GT SCH ×2 (08:54→20:07)
[2018-09-23] MEDS: PHENOBARBITAL 60 MG TABLET GT SCH ×2 (08:54→20:07)
[2018-09-23] MEDS: ACETAMINOPHEN 325 MG TABLET GT PRN (08:54)
[2018-09-23] MEDS: PANTOPRAZOLE ORAL SUSPENSION 40 MG SUSPDR.PKT GT SCH ×2 (08:54→17:40)
[2018-09-23] MEDS: PHENYTOIN 100 MG/4 ML UDC GT SCH ×2 (08:54→20:07)
[2018-09-23] MEDS: CLOTRIMAZOLE 1% CREAM 30 GM TUBE TP PRN (08:55)
[2018-09-23] MEDS: VITAMINS A AND D OINT TP SCH (08:55)
[2018-09-23] MEDS: Z GUARD REMEDY PASTE 57 GM TUBE TOP PRN (08:55)
[2018-09-23] MEDS: COD LIVER OIL/ZINC OXIDE OINT 113 GM TUBE TP SCH ×2 (08:56→20:10)
--- NOTE | 2018-09-23 10:13 | NUR ---
CLINICAL PHARMACY NOTE: VANCOMYCIN DOSING S:To continue vancomycin dosing on 42 y/o male patient for sepsis (likely due to HCAP) O:temp 98.7 WBC 5.6 BUN 11 Scr 0.6 Vanco trough level: 11.6 (on 09/20 at 0230) Vanco trough level: 16.9 (on 09/21 at 1730) wt 76 kg ht 172.7 cm A/P: Will continue same dose of Vancomycin 1250 mg IV every 10 hrs for today as last trough in range. Will monitor renal function & repeat the level as needed. Will follow.
[2018-09-23] MEDS ORDERED: CEFE1PIG3 IV (10:36)
[2018-09-23 11:00] VITALS: BP 131/57
--- NOTE | 2018-09-23 12:15 | NUR ---
PT IS CURRENTLY RESTING RESTING COMFORTABLY, NO SS OF PAIN OR RESPIRATORY DISTRESS WITH CURRENT VENT SETTINGS. LOW GRADE FEVER OF 99.3 RECTAL.TYLENOL PRN ADMINISTERED.
[2018-09-23 15:00] VITALS: BP 138/68
--- NOTE | 2018-09-23 16:15 | NUR ---
NO ACUTE CHANGE OR DISTRESS. CONTINUE CURRENT TREATMENT PLAN. PT TO BE TRANSFERRED TO [facility] SUBACUTE UNIT ON NEXT SHIFT.
[2018-09-23 20:05] VITALS: BP 141/74
--- NOTE | 2018-09-23 21:00 | NUR ---
Patient transferred dcd to Subacute at 4th floor; report given HS meds administered.
== END 2018-09-23 21:13 | DRG 870 ==
LOC: ER 08:10 → DOU3 10:56 → TELE-TD3 12:11
PROVIDERS: ADMIT Hospitalist; ATTEND Hospitalist
PROC: 5A1955Z Respiratory Ventilation, Greater than 96 Consecutive Hours (ICD-10-PCS; principal; 2018-09-18)
PROC: 05HB33Z Insertion of Infusion Device into Right Basilic Vein, Percutaneous Approach (ICD-10-PCS; 2018-09-18)
PROC: 0B978ZX Drainage of Left Main Bronchus, Via Natural or Artificial Opening Endoscopic, Diagnostic (ICD-10-PCS; 2018-09-19)
PROC: 0B938ZX Drainage of Right Main Bronchus, Via Natural or Artificial Opening Endoscopic, Diagnostic (ICD-10-PCS; 2018-09-19)
PROC: 0B21XFZ Change Tracheostomy Device in Trachea, External Approach (ICD-10-PCS; 2018-09-19)
DX: A41.9 Sepsis, unspecified organism (principal); G82.50 Quadriplegia, unspecified; J69.0 Pneumonitis due to inhalation of food and vomit; T17.890A Other foreign object in other parts of respiratory tract causing asphyxiation, initial encounter; J96.11 Chronic respiratory failure with hypoxia; G93.1 Anoxic brain damage, not elsewhere classified; Z99.11 Dependence on respirator [ventilator] status; E44.0 Moderate protein-calorie malnutrition; E87.2 Acidosis; R40.3 Persistent vegetative state; T81.82XA Emphysema (subcutaneous) resulting from a procedure, initial encounter; Y83.8 Other surgical procedures as the cause of abnormal reaction of the patient, or of later complication, without mention of misadventure at the time of the procedure; Y82.8 Other medical devices associated with adverse incidents; T14.91 Suicide attempt; X83.8XXS Intentional self-harm by other specified means, sequela; Z86.74 Personal history of sudden cardiac arrest; Z93.0 Tracheostomy status; Z93.1 Gastrostomy status; G40.909 Epilepsy, unspecified, not intractable, without status epilepticus; X58.XXXA Exposure to other specified factors, initial encounter; Y92.230 Patient room in hospital as the place of occurrence of the external cause; E83.42 Hypomagnesemia; R13.10 Dysphagia, unspecified; Z66 Do not resuscitate
CPT/HCPCS: 36415; 36600; 70030-TC; 71045; 71250; 83605; 83735; 84100; 85025; 85730; 87040; 87070; 87077; 87086; 87205; 93005; 94002; 94003; 94640; 94664; A4217; A4663; C1758; G0378; J0692; J2250; J3370; J3475; J3490; J3590; J7030; J7040; J7060; J8499

== ENCOUNTER → 2020-03-16 23:59 | Inpatient (IN) | payer MEDICARE, MEDICAID ==
[2019-03-18 08:00] VITALS: BP 122/83
--- NOTE | 2019-03-18 11:25 | NUR ---
PATIENT HAD LAB DONE TODAY, DILANTIN LEVEL WAS LOW; 7.7. PAGED DR. MORE WITH REGARDING THE ABNORMAL LAB RESULT. DR MORE STATED THAT NO ACTION NEEDED THERE HAD BEEN NO SIGN OF SEIZURE NOTED. WILL CONTINUE TO MONITOR.
[2019-03-18] MEDS: IPRATROPIUM BROMIDE 0.5 MG/2.5 ML NEBU NEB SCH (18:46)
[2019-03-18] MEDS: ALBUTEROL SULFATE 2.5 MG/ 0.5 ML NEBU NEB SCH (18:46)
--- NOTE | 2019-03-18 18:47 | NUR ---
Received pt on HT-50 ventilator with the following settings of AC-14, Vt-700, FIO2-35%, trached with Shiley#8 XLT Distal trach, which is in the place and secure. No s/s of respiratory distress noted. Airway care done, pt responded to physical stimuli. In-line HHN tx with 2.5mg Albuterol+0.5mg Atrovent given, no adverse reaction noted. HME changed. Resus. bag and back up trach at bedside. Vent and alarms checked and reset.
[2019-03-18 20:00] VITALS: BP 137/84
[2019-03-18] MEDS: HYDROGEN PEROXIDE 3% 118 ML BOTTLE TOP SCH (21:01)
[2019-03-18] MEDS: CETAPHIL TOP SCH (21:52)
[2019-03-18] MEDS: PROTEIN SUPPLEMENT (PROSTAT) 30 ML LIQUID GT SCH (21:52)
[2019-03-18] MEDS: Z GUARD REMEDY PASTE 57 GM TUBE TOP SCH (21:52)
[2019-03-18] MEDS: OMEPRAZOLE 20 MG CAPSULE.DR GT SCH (21:52)
[2019-03-18] MEDS: CHOLECALCIFEROL 400 UNITS TABLET GT SCH (21:52)
[2019-03-18] MEDS: CLOTRIMAZOLE 1% CREAM 30 GM TUBE TP SCH (21:52)
[2019-03-18] MEDS: VITAMINS A AND D OINT TP SCH (21:52)
[2019-03-18] MEDS: PHENYTOIN 100 MG/4 ML UDC GT SCH (21:52)
[2019-03-18] MEDS: PHENOBARBITAL 30 MG/7.5 ML LIQUID UDC GT SCH (21:52)
[2019-03-18] MEDS: BETAMET DP 0.05% AUGM CR 15 GM CREAM.GM. TP SCH (21:52)
[2019-03-19] MEDS: JEVITY 1.2 1000 ML LIQUID GT PRN (06:36)
[2019-03-19] MEDS: OMEPRAZOLE 20 MG CAPSULE.DR GT SCH ×2 (06:36→21:08)
[2019-03-19] MEDS: ALBUTEROL SULFATE 2.5 MG/ 0.5 ML NEBU NEB SCH ×4 (07:00→19:12)
[2019-03-19] MEDS: IPRATROPIUM BROMIDE 0.5 MG/2.5 ML NEBU NEB SCH ×4 (07:00→19:12)
[2019-03-19] MEDS: PHENYTOIN 100 MG/4 ML UDC GT SCH ×2 (08:51→21:04)
[2019-03-19] MEDS: CHOLECALCIFEROL 400 UNITS TABLET GT SCH ×2 (08:52→21:08)
[2019-03-19] MEDS: PROTEIN SUPPLEMENT (PROSTAT) 30 ML LIQUID GT SCH ×2 (08:52→21:08)
[2019-03-19] MEDS: CETAPHIL TOP SCH ×2 (08:52→21:09)
[2019-03-19] MEDS: CLOTRIMAZOLE 1% CREAM 30 GM TUBE TP SCH ×2 (08:52→21:09)
[2019-03-19] MEDS: VITAMINS A AND D OINT TP SCH ×3 (08:52→21:09)
[2019-03-19] MEDS: Z GUARD REMEDY PASTE 57 GM TUBE TOP SCH ×2 (08:52→21:09)
[2019-03-19] MEDS: PHENOBARBITAL 30 MG/7.5 ML LIQUID UDC GT SCH ×2 (08:52→21:06)
[2019-03-19] MEDS: BETAMET DP 0.05% AUGM CR 15 GM CREAM.GM. TP SCH ×2 (08:52→21:09)
[2019-03-19] MEDS: HYDROGEN PEROXIDE 3% 118 ML BOTTLE TOP SCH ×2 (09:52→20:16)
[2019-03-19 11:59] VITALS: BP 144/92
--- NOTE | 2019-03-19 19:12 | NUR ---
RECEIVED PATIENT ON THE HT-50 VENT WITH THE FOLLOWING SETTINGS THAT ARE CHARTED ON THE MECHANICAL VENT NOTES. TRACH TUBE IS PATENT AND SECURED WITH TRACH TIES. HME CHANGED. TRACH CARE DONE. SUCTIONED SMALL AMOUNTS OF THIN WHITE/YELLOW SECRETIONS. HHN GIVEN PER MD ORDERS AND TOLERATED WELL WITH NO ADVERSE REACTIONS. VENT ALARMS CHECKED AND THEY ARE ON AND AUDIBLE. VENT IS PLUGGED IN THE RED OUTLET. BACK UP TRACH AND AMBU BAG IS BY BEDSIDE. PATIENT IS TOLERATING CURRENT VENT SETTINGS WELL AT THIS TIME WITH NO SOB NOTED. WILL CONTINUE TO MONITOR PATIENT.
[2019-03-19 20:00] VITALS: BP 141/84
[2019-03-20] MEDS: OMEPRAZOLE 20 MG CAPSULE.DR GT SCH ×2 (05:32→21:26)
[2019-03-20] MEDS: IPRATROPIUM BROMIDE 0.5 MG/2.5 ML NEBU NEB SCH ×4 (07:00→19:05)
[2019-03-20] MEDS: ALBUTEROL SULFATE 2.5 MG/ 0.5 ML NEBU NEB SCH ×4 (07:00→19:05)
[2019-03-20] MEDS: HYDROGEN PEROXIDE 3% 118 ML BOTTLE TOP SCH ×2 (07:00→21:10)
[2019-03-20 08:00] VITALS: BP 135/87
[2019-03-20] MEDS: PHENYTOIN 100 MG/4 ML UDC GT SCH ×2 (08:32→21:22)
[2019-03-20] MEDS: CLOTRIMAZOLE 1% CREAM 30 GM TUBE TP SCH ×2 (08:32→21:28)
[2019-03-20] MEDS: VITAMINS A AND D OINT TP SCH ×3 (08:32→21:28)
[2019-03-20] MEDS: Z GUARD REMEDY PASTE 57 GM TUBE TOP SCH ×2 (08:32→21:28)
[2019-03-20] MEDS: PROTEIN SUPPLEMENT (PROSTAT) 30 ML LIQUID GT SCH ×2 (08:32→21:27)
[2019-03-20] MEDS: BETAMET DP 0.05% AUGM CR 15 GM CREAM.GM. TP SCH ×2 (08:32→21:28)
[2019-03-20] MEDS: CHOLECALCIFEROL 400 UNITS TABLET GT SCH ×2 (08:32→21:27)
[2019-03-20] MEDS: CETAPHIL TOP SCH ×2 (08:32→21:28)
[2019-03-20] MEDS: PHENOBARBITAL 30 MG/7.5 ML LIQUID UDC GT SCH ×2 (08:32→21:24)
[2019-03-20] MEDS: BISACODYL 10 MG SUPP.RECT RC PRN (17:21)
--- NOTE | 2019-03-20 19:06 | NUR ---
Received pt on HT-50 ventilator with the following settings of AC-14, Vt-700, FIO2-35%, trached with Shiley#8 XLT Distal trach, which is in the place and secure. No s/s of respiratory distress noted. Airway care done, pt responded to physical stimuli. In-line HHN tx with 2.5mg Albuterol+0.5mg Atrovent given, no adverse reaction noted. HME and Sx Rivera changed. Resus. bag at bedside. Vent and alarms checked and reset.
[2019-03-20 20:00] VITALS: BP 137/84
[2019-03-21] MEDS: JEVITY 1.2 1000 ML LIQUID GT PRN (01:34)
[2019-03-21] MEDS: OMEPRAZOLE 20 MG CAPSULE.DR GT SCH ×2 (05:40→20:40)
[2019-03-21 08:00] VITALS: BP 117/78
[2019-03-21] MEDS: IPRATROPIUM BROMIDE 0.5 MG/2.5 ML NEBU NEB SCH ×4 (08:20→19:00)
[2019-03-21] MEDS: ALBUTEROL SULFATE 2.5 MG/ 0.5 ML NEBU NEB SCH ×4 (08:20→19:00)
[2019-03-21] MEDS: PHENYTOIN 100 MG/4 ML UDC GT SCH ×2 (08:54→20:40)
[2019-03-21] MEDS: PHENOBARBITAL 30 MG/7.5 ML LIQUID UDC GT SCH ×2 (08:54→20:40)
[2019-03-21] MEDS: CHOLECALCIFEROL 400 UNITS TABLET GT SCH ×2 (08:55→20:40)
[2019-03-21] MEDS: PROTEIN SUPPLEMENT (PROSTAT) 30 ML LIQUID GT SCH ×2 (08:55→20:40)
[2019-03-21] MEDS: Z GUARD REMEDY PASTE 57 GM TUBE TOP SCH ×2 (08:55→20:41)
[2019-03-21] MEDS: CETAPHIL TOP SCH ×2 (08:55→20:41)
[2019-03-21] MEDS: CLOTRIMAZOLE 1% CREAM 30 GM TUBE TP SCH ×2 (08:56→20:41)
[2019-03-21] MEDS: VITAMINS A AND D OINT TP SCH ×3 (08:56→20:41)
[2019-03-21] MEDS: BETAMET DP 0.05% AUGM CR 15 GM CREAM.GM. TP SCH ×2 (08:56→20:41)
[2019-03-21] MEDS: HYDROGEN PEROXIDE 3% 118 ML BOTTLE TOP SCH ×2 (09:00→20:04)
--- NOTE | 2019-03-21 19:00 | NUR ---
PT RECEIVED ON THE HT-50 VENTILATOR WITH THE FOLLOWING SETTINGS THAT ARE CHARTED ON THE MECHANICAL VENTILATOR NOTES. TRACH CARE DONE AND HME CHANGED. TRACH TUBE IS PATENT AND SECURED WITH TRACH TIES. SUCTIONED SMALL AMOUNTS OF THICK WHITE/YELLOW SECRETIONS. HHN GIVEN PER MD ORDERS AND TOLERATED WELL WITH NO ADVERSE REACTIONS. VENTILATOR ALARMS CHECKED AND THEY ARE ON AND LOUD. VENTILATOR IS PLUGGED IN THE RED EMERGENCY OUTLET. SPARE TRACH AND BMV IS BY BEDSIDE. PT IS TOLERATING CURRENT VENTILATOR SETTINGS WELL AT THIS TIME WITH NO SHORTNESS OF BREATH NOTED. WILL CONTINUE TO MONITOR PT THROUGHOUT THE REST OF THE SHIFT.
[2019-03-21 20:10] VITALS: BP 125/79
[2019-03-22] MEDS: JEVITY 1.2 1000 ML LIQUID GT PRN (05:00)
[2019-03-22] MEDS: OMEPRAZOLE 20 MG CAPSULE.DR GT SCH ×2 (06:34→20:23)
[2019-03-22] MEDS: IPRATROPIUM BROMIDE 0.5 MG/2.5 ML NEBU NEB SCH ×4 (07:50→18:52)
[2019-03-22] MEDS: ALBUTEROL SULFATE 2.5 MG/ 0.5 ML NEBU NEB SCH ×4 (07:50→18:52)
[2019-03-22 08:00] VITALS: BP 123/69
[2019-03-22] MEDS: PHENYTOIN 100 MG/4 ML UDC GT SCH ×2 (08:03→20:23)
[2019-03-22] MEDS: PHENOBARBITAL 30 MG/7.5 ML LIQUID UDC GT SCH ×2 (08:03→20:23)
[2019-03-22] MEDS: Z GUARD REMEDY PASTE 57 GM TUBE TOP SCH ×2 (08:04→20:24)
[2019-03-22] MEDS: PROTEIN SUPPLEMENT (PROSTAT) 30 ML LIQUID GT SCH ×2 (08:04→20:23)
[2019-03-22] MEDS: CETAPHIL TOP SCH ×2 (08:04→20:24)
[2019-03-22] MEDS: CHOLECALCIFEROL 400 UNITS TABLET GT SCH ×2 (08:04→20:23)
[2019-03-22] MEDS: BETAMET DP 0.05% AUGM CR 15 GM CREAM.GM. TP SCH ×2 (08:05→20:24)
[2019-03-22] MEDS: VITAMINS A AND D OINT TP SCH ×3 (08:05→20:25)
[2019-03-22] MEDS: CLOTRIMAZOLE 1% CREAM 30 GM TUBE TP SCH ×2 (08:05→20:24)
[2019-03-22] MEDS: HYDROGEN PEROXIDE 3% 118 ML BOTTLE TOP SCH ×2 (08:56→21:14)
[2019-03-22 19:54] VITALS: BP 112/79
[2019-03-23] MEDS: OMEPRAZOLE 20 MG CAPSULE.DR GT SCH ×2 (05:39→21:15)
[2019-03-23] MEDS: JEVITY 1.2 1000 ML LIQUID GT PRN (05:40)
[2019-03-23] MEDS: IPRATROPIUM BROMIDE 0.5 MG/2.5 ML NEBU NEB SCH ×4 (06:08→18:08)
[2019-03-23] MEDS: ALBUTEROL SULFATE 2.5 MG/ 0.5 ML NEBU NEB SCH ×4 (06:08→18:08)
[2019-03-23 08:10] VITALS: BP 139/84
[2019-03-23] MEDS: PHENYTOIN 100 MG/4 ML UDC GT SCH ×2 (08:22→21:10)
[2019-03-23] MEDS: Z GUARD REMEDY PASTE 57 GM TUBE TOP SCH ×2 (08:23→21:16)
[2019-03-23] MEDS: CETAPHIL TOP SCH ×2 (08:23→21:16)
[2019-03-23] MEDS: PROTEIN SUPPLEMENT (PROSTAT) 30 ML LIQUID GT SCH ×2 (08:23→21:15)
[2019-03-23] MEDS: PHENOBARBITAL 30 MG/7.5 ML LIQUID UDC GT SCH ×2 (08:23→21:12)
[2019-03-23] MEDS: CHOLECALCIFEROL 400 UNITS TABLET GT SCH ×2 (08:23→21:15)
[2019-03-23] MEDS: CLOTRIMAZOLE 1% CREAM 30 GM TUBE TP SCH ×2 (08:24→21:16)
[2019-03-23] MEDS: BETAMET DP 0.05% AUGM CR 15 GM CREAM.GM. TP SCH ×2 (08:24→21:16)
[2019-03-23] MEDS: VITAMINS A AND D OINT TP SCH ×3 (08:24→21:16)
[2019-03-23] MEDS: HYDROGEN PEROXIDE 3% 118 ML BOTTLE TOP SCH ×2 (09:00→20:23)
[2019-03-23 19:47] VITALS: BP 101/73
[2019-03-24] MEDS: JEVITY 1.2 1000 ML LIQUID GT PRN (02:36)
[2019-03-24] MEDS: OMEPRAZOLE 20 MG CAPSULE.DR GT SCH ×2 (05:31→21:57)
[2019-03-24] MEDS: ALBUTEROL SULFATE 2.5 MG/ 0.5 ML NEBU NEB SCH ×4 (07:40→18:38)
[2019-03-24] MEDS: IPRATROPIUM BROMIDE 0.5 MG/2.5 ML NEBU NEB SCH ×4 (07:40→18:38)
[2019-03-24 08:00] VITALS: BP 141/82
[2019-03-24] MEDS: PHENYTOIN 100 MG/4 ML UDC GT SCH ×2 (08:59→21:54)
[2019-03-24] MEDS: PROTEIN SUPPLEMENT (PROSTAT) 30 ML LIQUID GT SCH ×2 (09:00→21:57)
[2019-03-24] MEDS: PHENOBARBITAL 30 MG/7.5 ML LIQUID UDC GT SCH ×2 (09:00→21:56)
[2019-03-24] MEDS: CHOLECALCIFEROL 400 UNITS TABLET GT SCH ×2 (09:00→21:58)
[2019-03-24] MEDS: HYDROGEN PEROXIDE 3% 118 ML BOTTLE TOP SCH ×2 (09:00→18:38)
[2019-03-24] MEDS: BETAMET DP 0.05% AUGM CR 15 GM CREAM.GM. TP SCH ×2 (09:01→21:58)
[2019-03-24] MEDS: Z GUARD REMEDY PASTE 57 GM TUBE TOP SCH ×2 (09:01→21:58)
[2019-03-24] MEDS: CETAPHIL TOP SCH ×2 (09:01→21:58)
[2019-03-24] MEDS: VITAMINS A AND D OINT TP SCH ×3 (09:01→21:58)
[2019-03-24] MEDS: CLOTRIMAZOLE 1% CREAM 30 GM TUBE TP SCH ×2 (09:01→21:58)
[2019-03-24 22:51] VITALS: BP 137/86
[2019-03-25] MEDS: OMEPRAZOLE 20 MG CAPSULE.DR GT SCH ×2 (06:05→21:48)
[2019-03-25] MEDS: IPRATROPIUM BROMIDE 0.5 MG/2.5 ML NEBU NEB SCH ×4 (07:59→18:52)
[2019-03-25 08:00] VITALS: BP 131/72
[2019-03-25] MEDS: ALBUTEROL SULFATE 2.5 MG/ 0.5 ML NEBU NEB SCH ×4 (08:00→18:52)
[2019-03-25] MEDS: HYDROGEN PEROXIDE 3% 118 ML BOTTLE TOP SCH ×2 (08:00→20:21)
[2019-03-25] MEDS: PROTEIN SUPPLEMENT (PROSTAT) 30 ML LIQUID GT SCH ×2 (09:12→21:48)
[2019-03-25] MEDS: PHENYTOIN 100 MG/4 ML UDC GT SCH ×2 (09:12→21:42)
[2019-03-25] MEDS: PHENOBARBITAL 30 MG/7.5 ML LIQUID UDC GT SCH ×2 (09:12→21:43)
[2019-03-25] MEDS: Z GUARD REMEDY PASTE 57 GM TUBE TOP SCH ×2 (09:13→21:49)
[2019-03-25] MEDS: BETAMET DP 0.05% AUGM CR 15 GM CREAM.GM. TP SCH ×2 (09:13→21:49)
[2019-03-25] MEDS: VITAMINS A AND D OINT TP SCH ×3 (09:13→21:49)
[2019-03-25] MEDS: CLOTRIMAZOLE 1% CREAM 30 GM TUBE TP SCH ×2 (09:13→21:49)
[2019-03-25] MEDS: CHOLECALCIFEROL 400 UNITS TABLET GT SCH ×2 (09:13→21:48)
[2019-03-25] MEDS: CETAPHIL TOP SCH ×2 (09:13→21:48)
[2019-03-25 22:15] VITALS: BP 129/83
[2019-03-26] MEDS: OMEPRAZOLE 20 MG CAPSULE.DR GT SCH ×2 (06:05→20:04)
[2019-03-26] MEDS: IPRATROPIUM BROMIDE 0.5 MG/2.5 ML NEBU NEB SCH ×4 (07:25→20:23)
[2019-03-26] MEDS: ALBUTEROL SULFATE 2.5 MG/ 0.5 ML NEBU NEB SCH ×4 (07:25→20:23)
[2019-03-26] MEDS: CHOLECALCIFEROL 400 UNITS TABLET GT SCH ×2 (08:35→20:04)
[2019-03-26] MEDS: PROTEIN SUPPLEMENT (PROSTAT) 30 ML LIQUID GT SCH ×2 (08:35→20:04)
[2019-03-26] MEDS: PHENYTOIN 100 MG/4 ML UDC GT SCH ×2 (08:35→20:04)
[2019-03-26] MEDS: PHENOBARBITAL 30 MG/7.5 ML LIQUID UDC GT SCH ×2 (08:35→20:04)
[2019-03-26] MEDS: Z GUARD REMEDY PASTE 57 GM TUBE TOP SCH ×2 (08:37→20:04)
[2019-03-26] MEDS: VITAMINS A AND D OINT TP SCH ×3 (08:37→20:05)
[2019-03-26] MEDS: CLOTRIMAZOLE 1% CREAM 30 GM TUBE TP SCH ×2 (08:37→20:05)
[2019-03-26] MEDS: CETAPHIL TOP SCH ×2 (08:37→20:04)
[2019-03-26] MEDS: BETAMET DP 0.05% AUGM CR 15 GM CREAM.GM. TP SCH ×2 (08:37→20:04)
[2019-03-26] MEDS: HYDROGEN PEROXIDE 3% 118 ML BOTTLE TOP SCH ×2 (09:10→20:23)
--- NOTE | 2019-03-26 15:09 | NUR ---
MCKENNA prepared all the annual admission paperwork and turned them over to JEAN PAUL Colon, asking her to give the paperwork to the patient's mother when she visits over the weekend, so the patient's mother can review and sign the forms. SW included instructions on how to review and where to sign on the forms. Darlene verbalized understanding and agreement.
[2019-03-26 22:03] VITALS: BP 122/74
[2019-03-27] MEDS: OMEPRAZOLE 20 MG CAPSULE.DR GT SCH ×2 (05:39→20:07)
[2019-03-27] MEDS: JEVITY 1.2 1000 ML LIQUID GT PRN (05:39)
[2019-03-27] MEDS: HYDROGEN PEROXIDE 3% 118 ML BOTTLE TOP SCH ×2 (07:49→21:00)
[2019-03-27] MEDS: IPRATROPIUM BROMIDE 0.5 MG/2.5 ML NEBU NEB SCH ×4 (07:49→19:05)
[2019-03-27] MEDS: ALBUTEROL SULFATE 2.5 MG/ 0.5 ML NEBU NEB SCH ×4 (07:49→19:05)
[2019-03-27 08:05] VITALS: BP 132/77
[2019-03-27] MEDS: CHOLECALCIFEROL 400 UNITS TABLET GT SCH ×2 (08:32→20:07)
[2019-03-27] MEDS: PHENYTOIN 100 MG/4 ML UDC GT SCH ×2 (08:32→20:07)
[2019-03-27] MEDS: PROTEIN SUPPLEMENT (PROSTAT) 30 ML LIQUID GT SCH ×2 (08:32→20:07)
[2019-03-27] MEDS: PHENOBARBITAL 30 MG/7.5 ML LIQUID UDC GT SCH ×2 (08:32→20:07)
[2019-03-27] MEDS: CETAPHIL TOP SCH ×2 (08:33→20:07)
[2019-03-27] MEDS: Z GUARD REMEDY PASTE 57 GM TUBE TOP SCH ×2 (08:33→20:07)
[2019-03-27] MEDS: CLOTRIMAZOLE 1% CREAM 30 GM TUBE TP SCH ×2 (09:00→20:07)
[2019-03-27] MEDS: VITAMINS A AND D OINT TP SCH ×3 (09:00→20:07)
[2019-03-27] MEDS: BETAMET DP 0.05% AUGM CR 15 GM CREAM.GM. TP SCH ×2 (09:30→20:07)
[2019-03-27 22:33] VITALS: BP 130/76
[2019-03-28] MEDS: OMEPRAZOLE 20 MG CAPSULE.DR GT SCH ×2 (05:36→20:33)
[2019-03-28] MEDS: JEVITY 1.2 1000 ML LIQUID GT PRN (05:36)
[2019-03-28] MEDS: IPRATROPIUM BROMIDE 0.5 MG/2.5 ML NEBU NEB SCH ×4 (07:03→19:18)
[2019-03-28] MEDS: ALBUTEROL SULFATE 2.5 MG/ 0.5 ML NEBU NEB SCH ×4 (07:03→19:18)
[2019-03-28 08:00] VITALS: BP 130/80
[2019-03-28] MEDS: PHENYTOIN 100 MG/4 ML UDC GT SCH ×2 (08:21→20:33)
[2019-03-28] MEDS: PHENOBARBITAL 30 MG/7.5 ML LIQUID UDC GT SCH ×2 (08:21→20:33)
[2019-03-28] MEDS: PROTEIN SUPPLEMENT (PROSTAT) 30 ML LIQUID GT SCH ×2 (08:21→20:33)
[2019-03-28] MEDS: CHOLECALCIFEROL 400 UNITS TABLET GT SCH ×2 (08:21→20:35)
[2019-03-28] MEDS: CETAPHIL TOP SCH ×2 (08:22→20:33)
[2019-03-28] MEDS: CLOTRIMAZOLE 1% CREAM 30 GM TUBE TP SCH ×2 (08:22→20:34)
[2019-03-28] MEDS: Z GUARD REMEDY PASTE 57 GM TUBE TOP SCH ×2 (08:22→20:33)
[2019-03-28] MEDS: VITAMINS A AND D OINT TP SCH ×3 (08:23→20:34)
[2019-03-28] MEDS: BETAMET DP 0.05% AUGM CR 15 GM CREAM.GM. TP SCH ×2 (08:29→20:33)
[2019-03-28] MEDS: HYDROGEN PEROXIDE 3% 118 ML BOTTLE TOP SCH ×2 (09:00→20:28)
[2019-03-28 22:42] VITALS: BP 130/75
[2019-03-29] MEDS: OMEPRAZOLE 20 MG CAPSULE.DR GT SCH ×2 (05:59→21:42)
[2019-03-29] MEDS: ALBUTEROL SULFATE 2.5 MG/ 0.5 ML NEBU NEB SCH ×4 (07:47→19:00)
[2019-03-29] MEDS: IPRATROPIUM BROMIDE 0.5 MG/2.5 ML NEBU NEB SCH ×4 (07:47→19:00)
[2019-03-29 08:00] VITALS: BP 127/82
[2019-03-29] MEDS: HYDROGEN PEROXIDE 3% 118 ML BOTTLE TOP SCH ×2 (08:17→21:10)
[2019-03-29] MEDS: PHENOBARBITAL 30 MG/7.5 ML LIQUID UDC GT SCH ×2 (08:26→21:40)
[2019-03-29] MEDS: CETAPHIL TOP SCH ×2 (08:26→21:47)
[2019-03-29] MEDS: PHENYTOIN 100 MG/4 ML UDC GT SCH ×2 (08:26→21:38)
[2019-03-29] MEDS: VITAMINS A AND D OINT TP SCH ×3 (08:26→21:47)
[2019-03-29] MEDS: CHOLECALCIFEROL 400 UNITS TABLET GT SCH ×2 (08:26→21:42)
[2019-03-29] MEDS: BETAMET DP 0.05% AUGM CR 15 GM CREAM.GM. TP SCH ×2 (08:26→21:47)
[2019-03-29] MEDS: PROTEIN SUPPLEMENT (PROSTAT) 30 ML LIQUID GT SCH ×2 (08:26→21:42)
[2019-03-29] MEDS: Z GUARD REMEDY PASTE 57 GM TUBE TOP SCH ×2 (08:26→21:47)
[2019-03-29] MEDS: CLOTRIMAZOLE 1% CREAM 30 GM TUBE TP SCH ×2 (08:26→21:47)
--- NOTE | 2019-03-29 09:16 | NUR ---
SW received a voicemail message this morning from JEAN PAUL Colon. Voicemail message was left for this SW on Friday03/27/2019, stating that patient's mother BJ had come in to visit the patient, and had taken the annual admission paperwork from Darlene, stating that she will be taking it home to review and sign, and will then return it to nursing and/or social work.
--- NOTE | 2019-03-29 19:01 | NUR ---
Received pt on HT-50 ventilator with the following settings of AC-14, Vt-700, FIO2-35%, trached with Shiley#8 XLT Distal trach, which is in the place and secure. No s/s of respiratory distress noted. Airway care done, pt responded to physical stimuli. In-line HHN tx with 2.5mg Albuterol+0.5mg Atrovent given, no adverse reaction noted. Resus. bag and back up trach at bedside. Vent and alarms checked and reset.
[2019-03-29 20:35] VITALS: BP 134/80
[2019-03-30] MEDS: JEVITY 1.2 1000 ML LIQUID GT PRN (02:04)
[2019-03-30] MEDS: OMEPRAZOLE 20 MG CAPSULE.DR GT SCH ×2 (05:52→20:20)
[2019-03-30 08:00] VITALS: BP 141/87
[2019-03-30] MEDS: IPRATROPIUM BROMIDE 0.5 MG/2.5 ML NEBU NEB SCH ×4 (08:13→19:39)
[2019-03-30] MEDS: ALBUTEROL SULFATE 2.5 MG/ 0.5 ML NEBU NEB SCH ×4 (08:13→19:39)
[2019-03-30] MEDS: Z GUARD REMEDY PASTE 57 GM TUBE TOP SCH ×2 (08:21→20:21)
[2019-03-30] MEDS: CETAPHIL TOP SCH ×2 (08:21→20:21)
[2019-03-30] MEDS: CHOLECALCIFEROL 400 UNITS TABLET GT SCH ×2 (08:21→20:21)
[2019-03-30] MEDS: PHENOBARBITAL 30 MG/7.5 ML LIQUID UDC GT SCH ×2 (08:21→20:27)
[2019-03-30] MEDS: PROTEIN SUPPLEMENT (PROSTAT) 30 ML LIQUID GT SCH ×2 (08:21→20:20)
[2019-03-30] MEDS: PHENYTOIN 100 MG/4 ML UDC GT SCH ×2 (08:21→20:29)
[2019-03-30] MEDS: VITAMINS A AND D OINT TP SCH ×3 (08:27→20:22)
[2019-03-30] MEDS: CLOTRIMAZOLE 1% CREAM 30 GM TUBE TP SCH ×2 (08:27→20:21)
[2019-03-30] MEDS: BETAMET DP 0.05% AUGM CR 15 GM CREAM.GM. TP SCH ×2 (08:27→20:21)
[2019-03-30] MEDS: HYDROGEN PEROXIDE 3% 118 ML BOTTLE TOP SCH ×2 (09:00→21:19)
[2019-03-30 20:00] VITALS: BP 135/77
[2019-03-31] MEDS: OMEPRAZOLE 20 MG CAPSULE.DR GT SCH ×2 (06:19→20:32)
[2019-03-31] MEDS: JEVITY 1.2 1000 ML LIQUID GT PRN (06:19)
--- NOTE | 2019-03-31 07:55 | NUR ---
Pt received in bed, laying semi-Miller's, unable to communicate, withdraws to physical stimuli, tracks with eyes.. Pt trach: Sophie [address]/secure with tie, no skin discoloration/irritation visible under/around trach tie.. Stoma appears normal, no redness noted, trach site clean/dry at this time.. Continuous mechanical ventilation, vent: HT-50 with settings: A/C 14, Vt 700, FiO2 35%, tolerating well, no changes made to vent settings at this time.. Vent alarms on/audible and functioning properly at this time.. Respiratory meds: 2.5 mg Albuterol + 0.5 mg Atrovent Q4 W/A will be given inline as ordered by .. BVM/back up trach at bedside.. Vent plugged in to red emergency outlet.. No s/s of respiratory distress/S.O.B noted, will continue to monitor..
[2019-03-31 08:00] VITALS: BP 124/73
[2019-03-31] MEDS: IPRATROPIUM BROMIDE 0.5 MG/2.5 ML NEBU NEB SCH ×4 (08:02→18:57)
[2019-03-31] MEDS: ALBUTEROL SULFATE 2.5 MG/ 0.5 ML NEBU NEB SCH ×4 (08:02→18:57)
[2019-03-31] MEDS: PHENYTOIN 100 MG/4 ML UDC GT SCH ×2 (08:49→20:30)
[2019-03-31] MEDS: PROTEIN SUPPLEMENT (PROSTAT) 30 ML LIQUID GT SCH ×2 (08:50→20:32)
[2019-03-31] MEDS: PHENOBARBITAL 30 MG/7.5 ML LIQUID UDC GT SCH ×2 (08:50→20:30)
[2019-03-31] MEDS: CHOLECALCIFEROL 400 UNITS TABLET GT SCH ×2 (08:50→20:33)
[2019-03-31] MEDS: Z GUARD REMEDY PASTE 57 GM TUBE TOP SCH ×2 (08:51→20:34)
[2019-03-31] MEDS: BETAMET DP 0.05% AUGM CR 15 GM CREAM.GM. TP SCH ×2 (08:51→20:34)
[2019-03-31] MEDS: CETAPHIL TOP SCH ×2 (08:51→20:34)
[2019-03-31] MEDS: CLOTRIMAZOLE 1% CREAM 30 GM TUBE TP SCH ×2 (08:51→20:34)
[2019-03-31] MEDS: VITAMINS A AND D OINT TP SCH ×3 (08:51→20:34)
[2019-03-31] MEDS: HYDROGEN PEROXIDE 3% 118 ML BOTTLE TOP SCH ×2 (09:00→21:09)
[2019-03-31 20:00] VITALS: BP 135/82
[2019-04-01] MEDS: chlorproMAZINE 25 MG TABLET GT PRN (05:00)
[2019-04-01] MEDS: OMEPRAZOLE 20 MG CAPSULE.DR GT SCH ×2 (05:21→20:32)
[2019-04-01] MEDS: ALBUTEROL SULFATE 2.5 MG/ 0.5 ML NEBU NEB SCH ×4 (07:12→18:59)
[2019-04-01] MEDS: IPRATROPIUM BROMIDE 0.5 MG/2.5 ML NEBU NEB SCH ×4 (07:12→18:58)
[2019-04-01] MEDS: HYDROGEN PEROXIDE 3% 118 ML BOTTLE TOP SCH ×2 (07:12→21:16)
[2019-04-01 08:30] VITALS: BP 142/88
[2019-04-01] MEDS: PHENYTOIN 100 MG/4 ML UDC GT SCH ×2 (08:36→20:32)
[2019-04-01] MEDS: PHENOBARBITAL 30 MG/7.5 ML LIQUID UDC GT SCH ×2 (08:38→20:32)
[2019-04-01] MEDS: CLOTRIMAZOLE 1% CREAM 30 GM TUBE TP SCH ×2 (08:39→20:33)
[2019-04-01] MEDS: CHOLECALCIFEROL 400 UNITS TABLET GT SCH ×2 (08:39→20:32)
[2019-04-01] MEDS: VITAMINS A AND D OINT TP SCH ×3 (08:39→20:33)
[2019-04-01] MEDS: Z GUARD REMEDY PASTE 57 GM TUBE TOP SCH ×2 (08:39→20:32)
[2019-04-01] MEDS: BETAMET DP 0.05% AUGM CR 15 GM CREAM.GM. TP SCH ×2 (08:39→20:33)
[2019-04-01] MEDS: CETAPHIL TOP SCH ×2 (08:39→20:32)
[2019-04-01] MEDS: PROTEIN SUPPLEMENT (PROSTAT) 30 ML LIQUID GT SCH ×2 (08:39→20:32)
[2019-04-01] MEDS: JEVITY 1.2 1000 ML LIQUID GT PRN (15:09)
--- NOTE | 2019-04-01 19:00 | NUR ---
Received pt on HT-50 ventilator with the following settings of AC-14, Vt-700, FIO2-35%, trached with Shiley#8 XLT Distal trach, which is in the place and secure. No respiratory distress noted. Airway care done, pt responded to physical stimuli. In-line HHN tx with 2.5mg Albuterol+0.5mg Atrovent given, no adverse reaction noted. HME changed. Resus. bag and back up trach at bedside. Vent and alarms checked and reset.
[2019-04-01 20:00] VITALS: BP 132/77
[2019-04-02] MEDS: BISACODYL 10 MG SUPP.RECT RC PRN (06:00)
[2019-04-02] MEDS: OMEPRAZOLE 20 MG CAPSULE.DR GT SCH ×2 (06:27→21:40)
[2019-04-02] MEDS: ALBUTEROL SULFATE 2.5 MG/ 0.5 ML NEBU NEB SCH ×4 (07:18→18:49)
[2019-04-02] MEDS: HYDROGEN PEROXIDE 3% 118 ML BOTTLE TOP SCH ×2 (07:18→18:49)
[2019-04-02] MEDS: IPRATROPIUM BROMIDE 0.5 MG/2.5 ML NEBU NEB SCH ×4 (07:18→18:49)
[2019-04-02 08:30] VITALS: BP 112/70
[2019-04-02] MEDS: PHENYTOIN 100 MG/4 ML UDC GT SCH ×2 (08:42→21:38)
[2019-04-02] MEDS: CHOLECALCIFEROL 400 UNITS TABLET GT SCH ×2 (08:43→21:40)
[2019-04-02] MEDS: CETAPHIL TOP SCH ×2 (08:43→21:41)
[2019-04-02] MEDS: PHENOBARBITAL 30 MG/7.5 ML LIQUID UDC GT SCH ×2 (08:43→21:40)
[2019-04-02] MEDS: PROTEIN SUPPLEMENT (PROSTAT) 30 ML LIQUID GT SCH ×2 (08:43→21:40)
[2019-04-02] MEDS: Z GUARD REMEDY PASTE 57 GM TUBE TOP SCH ×2 (08:44→21:41)
[2019-04-02] MEDS: BETAMET DP 0.05% AUGM CR 15 GM CREAM.GM. TP SCH ×2 (08:44→21:41)
[2019-04-02] MEDS: VITAMINS A AND D OINT TP SCH ×3 (08:45→21:41)
[2019-04-02] MEDS: CLOTRIMAZOLE 1% CREAM 30 GM TUBE TP SCH ×2 (08:45→21:41)
[2019-04-02] MEDS: JEVITY 1.2 1000 ML LIQUID GT PRN (11:51)
[2019-04-02 22:11] VITALS: BP 133/82
[2019-04-03] MEDS: OMEPRAZOLE 20 MG CAPSULE.DR GT SCH ×2 (05:50→21:14)
[2019-04-03] MEDS: ALBUTEROL SULFATE 2.5 MG/ 0.5 ML NEBU NEB SCH ×4 (07:15→18:48)
[2019-04-03] MEDS: IPRATROPIUM BROMIDE 0.5 MG/2.5 ML NEBU NEB SCH ×4 (07:15→18:48)
[2019-04-03 08:01] VITALS: BP 123/77
[2019-04-03] MEDS: HYDROGEN PEROXIDE 3% 118 ML BOTTLE TOP SCH ×2 (08:40→20:48)
[2019-04-03] MEDS: PHENYTOIN 100 MG/4 ML UDC GT SCH ×2 (09:10→21:11)
[2019-04-03] MEDS: PHENOBARBITAL 30 MG/7.5 ML LIQUID UDC GT SCH ×2 (09:11→21:12)
[2019-04-03] MEDS: PROTEIN SUPPLEMENT (PROSTAT) 30 ML LIQUID GT SCH ×2 (09:12→21:15)
[2019-04-03] MEDS: CHOLECALCIFEROL 400 UNITS TABLET GT SCH ×2 (09:12→21:15)
[2019-04-03] MEDS: CETAPHIL TOP SCH ×2 (09:12→21:15)
[2019-04-03] MEDS: BETAMET DP 0.05% AUGM CR 15 GM CREAM.GM. TP SCH ×2 (09:13→21:15)
[2019-04-03] MEDS: VITAMINS A AND D OINT TP SCH ×3 (09:13→21:16)
[2019-04-03] MEDS: CLOTRIMAZOLE 1% CREAM 30 GM TUBE TP SCH ×2 (09:13→21:16)
[2019-04-03] MEDS: Z GUARD REMEDY PASTE 57 GM TUBE TOP SCH ×2 (09:13→21:15)
--- NOTE | 2019-04-03 18:49 | NUR ---
Received pt on HT-50 ventilator with the following settings of AC-14, Vt-700, FIO2-35%, trached with Shiley#8 XLT Distal trach, which is in the place and secure. No s/s of respiratory distress noted. Airway care done, pt responded to physical stimuli. In-line HHN tx with 2.5mg Albuterol+0.5mg Atrovent given, no adverse reaction noted. HME, HHN adaptor and Sx Rivera changed. Resus. bag at bedside. Vent and alarms checked and reset.
[2019-04-03 22:08] VITALS: BP 126/77
[2019-04-04] MEDS: JEVITY 1.2 1000 ML LIQUID GT PRN ×2 (01:13→16:32)
[2019-04-04] MEDS: OMEPRAZOLE 20 MG CAPSULE.DR GT SCH ×2 (05:58→20:04)
[2019-04-04] MEDS: HYDROGEN PEROXIDE 3% 118 ML BOTTLE TOP SCH ×2 (07:40→21:09)
[2019-04-04] MEDS: IPRATROPIUM BROMIDE 0.5 MG/2.5 ML NEBU NEB SCH ×4 (07:40→18:47)
[2019-04-04] MEDS: ALBUTEROL SULFATE 2.5 MG/ 0.5 ML NEBU NEB SCH ×4 (07:40→18:47)
[2019-04-04 08:01] VITALS: BP 126/76
[2019-04-04] MEDS: PHENYTOIN 100 MG/4 ML UDC GT SCH ×2 (08:17→20:04)
[2019-04-04] MEDS: PHENOBARBITAL 30 MG/7.5 ML LIQUID UDC GT SCH ×2 (08:17→20:04)
[2019-04-04] MEDS: PROTEIN SUPPLEMENT (PROSTAT) 30 ML LIQUID GT SCH ×2 (08:17→20:04)
[2019-04-04] MEDS: CHOLECALCIFEROL 400 UNITS TABLET GT SCH ×2 (08:17→20:05)
[2019-04-04] MEDS: CETAPHIL TOP SCH ×2 (08:17→20:05)
[2019-04-04] MEDS: VITAMINS A AND D OINT TP SCH ×3 (08:18→20:05)
[2019-04-04] MEDS: Z GUARD REMEDY PASTE 57 GM TUBE TOP SCH ×2 (08:18→20:05)
[2019-04-04] MEDS: CLOTRIMAZOLE 1% CREAM 30 GM TUBE TP SCH ×2 (08:18→20:05)
[2019-04-04] MEDS: BETAMET DP 0.05% AUGM CR 15 GM CREAM.GM. TP SCH ×2 (08:18→20:05)
[2019-04-04 22:50] VITALS: BP 130/83
[2019-04-05] MEDS: OMEPRAZOLE 20 MG CAPSULE.DR GT SCH ×2 (05:34→20:32)
[2019-04-05] MEDS: ALBUTEROL SULFATE 2.5 MG/ 0.5 ML NEBU NEB SCH ×4 (07:10→18:50)
[2019-04-05] MEDS: IPRATROPIUM BROMIDE 0.5 MG/2.5 ML NEBU NEB SCH ×4 (07:10→18:50)
[2019-04-05 08:01] VITALS: BP 131/83
[2019-04-05] MEDS: PHENYTOIN 100 MG/4 ML UDC GT SCH ×2 (08:20→20:32)
[2019-04-05] MEDS: PROTEIN SUPPLEMENT (PROSTAT) 30 ML LIQUID GT SCH ×2 (08:20→20:32)
[2019-04-05] MEDS: Z GUARD REMEDY PASTE 57 GM TUBE TOP SCH ×2 (08:20→20:32)
[2019-04-05] MEDS: CLOTRIMAZOLE 1% CREAM 30 GM TUBE TP SCH ×2 (08:20→20:32)
[2019-04-05] MEDS: BETAMET DP 0.05% AUGM CR 15 GM CREAM.GM. TP SCH ×2 (08:20→20:32)
[2019-04-05] MEDS: VITAMINS A AND D OINT TP SCH ×3 (08:20→20:32)
[2019-04-05] MEDS: CHOLECALCIFEROL 400 UNITS TABLET GT SCH ×2 (08:20→20:32)
[2019-04-05] MEDS: PHENOBARBITAL 30 MG/7.5 ML LIQUID UDC GT SCH ×2 (08:20→20:32)
[2019-04-05] MEDS: CETAPHIL TOP SCH ×2 (08:20→20:32)
[2019-04-05] MEDS: HYDROGEN PEROXIDE 3% 118 ML BOTTLE TOP SCH ×2 (09:05→18:50)
[2019-04-05] MEDS: JEVITY 1.2 1000 ML LIQUID GT PRN (16:45)
[2019-04-05 20:16] VITALS: BP 144/78
[2019-04-06] MEDS: OMEPRAZOLE 20 MG CAPSULE.DR GT SCH ×2 (05:47→20:42)
[2019-04-06] MEDS: IPRATROPIUM BROMIDE 0.5 MG/2.5 ML NEBU NEB SCH ×4 (07:22→18:48)
[2019-04-06] MEDS: ALBUTEROL SULFATE 2.5 MG/ 0.5 ML NEBU NEB SCH ×4 (07:22→18:48)
--- NOTE | 2019-04-06 07:22 | NUR ---
PT REC'D ON HOOPER VENT TOLERATING CURRENT VENT SETTINGS WELL, NO DISTRESS NOTED GIVEN IN AM REPORT. PT VENT'D VIA TRACHEOSTOMY, TUBE IN PLACE PATENT AND SECURE WITH TRACH TIE. INH NEB TX'S TO BE GIVEN PER MD ORDER AND SXN'ING NEEDED. VENT ALARMS AUDIBLE, CHECKED AND RESET. BVM AND BACK-UP TRACH AT BEDSIDE.
[2019-04-06] MEDS: PHENYTOIN 100 MG/4 ML UDC GT SCH ×2 (08:20→20:42)
[2019-04-06 08:23] VITALS: BP 128/77
[2019-04-06] MEDS: CHOLECALCIFEROL 400 UNITS TABLET GT SCH ×2 (08:23→20:42)
[2019-04-06] MEDS: PHENOBARBITAL 30 MG/7.5 ML LIQUID UDC GT SCH ×2 (08:23→20:42)
[2019-04-06] MEDS: CETAPHIL TOP SCH ×2 (09:03→20:42)
[2019-04-06] MEDS: Z GUARD REMEDY PASTE 57 GM TUBE TOP SCH ×2 (09:03→20:42)
[2019-04-06] MEDS: BETAMET DP 0.05% AUGM CR 15 GM CREAM.GM. TP SCH ×2 (09:03→20:42)
[2019-04-06] MEDS: PROTEIN SUPPLEMENT (PROSTAT) 30 ML LIQUID GT SCH ×2 (09:03→20:42)
[2019-04-06] MEDS: CLOTRIMAZOLE 1% CREAM 30 GM TUBE TP SCH ×2 (09:03→20:42)
[2019-04-06] MEDS: VITAMINS A AND D OINT TP SCH ×3 (09:04→20:42)
[2019-04-06] MEDS: HYDROGEN PEROXIDE 3% 118 ML BOTTLE TOP SCH ×2 (09:12→21:00)
--- NOTE | 2019-04-06 14:32 | NUR ---
INTERDISCIPLINARY PLAN OF CARE CONFERENCE was held today. Patient's parents were not able to attend the meeting. Dr. Hammond and the Interdisciplinary Team reviewed the current plan of care in detail. RN reported on patient's current medical condition. No major changes in condition were reported. See RN IDT conference notes. See also all other disciplines IDT notes and physician's progress notes for additional details.
[2019-04-06 20:00] VITALS: BP 106/64
[2019-04-07] MEDS: OMEPRAZOLE 20 MG CAPSULE.DR GT SCH ×2 (06:04→21:28)
[2019-04-07] MEDS: JEVITY 1.2 1000 ML LIQUID GT PRN (06:17)
[2019-04-07] MEDS: IPRATROPIUM BROMIDE 0.5 MG/2.5 ML NEBU NEB SCH ×4 (07:09→18:33)
[2019-04-07] MEDS: ALBUTEROL SULFATE 2.5 MG/ 0.5 ML NEBU NEB SCH ×4 (07:09→18:33)
[2019-04-07 08:00] VITALS: BP 103/74
[2019-04-07] MEDS: PHENYTOIN 100 MG/4 ML UDC GT SCH ×2 (08:25→21:28)
[2019-04-07] MEDS: PROTEIN SUPPLEMENT (PROSTAT) 30 ML LIQUID GT SCH ×2 (08:27→21:28)
[2019-04-07] MEDS: PHENOBARBITAL 30 MG/7.5 ML LIQUID UDC GT SCH ×2 (08:27→21:29)
[2019-04-07] MEDS: CHOLECALCIFEROL 400 UNITS TABLET GT SCH ×2 (08:27→21:29)
[2019-04-07] MEDS: HYDROGEN PEROXIDE 3% 118 ML BOTTLE TOP SCH ×2 (08:42→18:33)
[2019-04-07] MEDS: CETAPHIL TOP SCH ×2 (09:00→21:29)
[2019-04-07] MEDS: CLOTRIMAZOLE 1% CREAM 30 GM TUBE TP SCH ×2 (09:00→21:29)
[2019-04-07] MEDS: BETAMET DP 0.05% AUGM CR 15 GM CREAM.GM. TP SCH ×2 (09:00→21:29)
[2019-04-07] MEDS: VITAMINS A AND D OINT TP SCH ×3 (09:00→21:29)
[2019-04-07] MEDS: Z GUARD REMEDY PASTE 57 GM TUBE TOP SCH ×2 (09:00→21:29)
[2019-04-07 20:02] VITALS: BP 131/75
[2019-04-08] MEDS: OMEPRAZOLE 20 MG CAPSULE.DR GT SCH ×2 (05:40→20:42)
[2019-04-08] MEDS: JEVITY 1.2 1000 ML LIQUID GT PRN (05:41)
[2019-04-08] MEDS: IPRATROPIUM BROMIDE 0.5 MG/2.5 ML NEBU NEB SCH ×4 (07:33→18:33)
[2019-04-08] MEDS: ALBUTEROL SULFATE 2.5 MG/ 0.5 ML NEBU NEB SCH ×4 (07:33→18:33)
[2019-04-08] MEDS: HYDROGEN PEROXIDE 3% 118 ML BOTTLE TOP SCH ×2 (07:33→18:33)
[2019-04-08 08:00] VITALS: BP 143/88
[2019-04-08] MEDS: PHENYTOIN 100 MG/4 ML UDC GT SCH ×2 (08:18→20:40)
[2019-04-08] MEDS: BETAMET DP 0.05% AUGM CR 15 GM CREAM.GM. TP SCH ×2 (08:20→20:42)
[2019-04-08] MEDS: CHOLECALCIFEROL 400 UNITS TABLET GT SCH ×2 (08:20→20:42)
[2019-04-08] MEDS: PHENOBARBITAL 30 MG/7.5 ML LIQUID UDC GT SCH ×2 (08:20→20:42)
[2019-04-08] MEDS: PROTEIN SUPPLEMENT (PROSTAT) 30 ML LIQUID GT SCH ×2 (08:20→20:42)
[2019-04-08] MEDS: CETAPHIL TOP SCH ×2 (08:20→20:42)
[2019-04-08] MEDS: Z GUARD REMEDY PASTE 57 GM TUBE TOP SCH ×2 (08:20→20:42)
[2019-04-08] MEDS: VITAMINS A AND D OINT TP SCH ×3 (08:21→20:43)
[2019-04-08] MEDS: CLOTRIMAZOLE 1% CREAM 30 GM TUBE TP SCH ×2 (08:21→20:42)
[2019-04-08 20:18] VITALS: BP 142/82
[2019-04-08] MEDS: chlorproMAZINE 25 MG TABLET GT PRN (21:12)
[2019-04-09] MEDS: JEVITY 1.2 1000 ML LIQUID GT PRN (01:30)
[2019-04-09] MEDS: OMEPRAZOLE 20 MG CAPSULE.DR GT SCH ×2 (05:41→20:49)
[2019-04-09] MEDS: IPRATROPIUM BROMIDE 0.5 MG/2.5 ML NEBU NEB SCH ×4 (07:59→19:13)
[2019-04-09] MEDS: ALBUTEROL SULFATE 2.5 MG/ 0.5 ML NEBU NEB SCH ×4 (07:59→19:13)
[2019-04-09 08:00] VITALS: BP 138/80
[2019-04-09] MEDS: PHENYTOIN 100 MG/4 ML UDC GT SCH ×2 (08:17→20:49)
[2019-04-09] MEDS: PHENOBARBITAL 30 MG/7.5 ML LIQUID UDC GT SCH ×2 (08:18→20:49)
[2019-04-09] MEDS: Z GUARD REMEDY PASTE 57 GM TUBE TOP SCH ×2 (08:19→20:51)
[2019-04-09] MEDS: PROTEIN SUPPLEMENT (PROSTAT) 30 ML LIQUID GT SCH ×2 (08:19→20:49)
[2019-04-09] MEDS: BETAMET DP 0.05% AUGM CR 15 GM CREAM.GM. TP SCH ×2 (08:19→20:51)
[2019-04-09] MEDS: CETAPHIL TOP SCH ×2 (08:19→20:49)
[2019-04-09] MEDS: VITAMINS A AND D OINT TP SCH ×3 (08:19→20:51)
[2019-04-09] MEDS: CLOTRIMAZOLE 1% CREAM 30 GM TUBE TP SCH ×2 (08:19→20:51)
[2019-04-09] MEDS: CHOLECALCIFEROL 400 UNITS TABLET GT SCH ×2 (08:19→20:49)
[2019-04-09] MEDS: HYDROGEN PEROXIDE 3% 118 ML BOTTLE TOP SCH ×2 (09:00→21:03)
[2019-04-09 20:01] VITALS: BP 109/61
[2019-04-10] MEDS: JEVITY 1.2 1000 ML LIQUID GT PRN (00:15)
[2019-04-10] MEDS: OMEPRAZOLE 20 MG CAPSULE.DR GT SCH ×2 (06:01→20:36)
[2019-04-10] MEDS: ALBUTEROL SULFATE 2.5 MG/ 0.5 ML NEBU NEB SCH ×4 (07:34→20:05)
[2019-04-10] MEDS: IPRATROPIUM BROMIDE 0.5 MG/2.5 ML NEBU NEB SCH ×4 (07:34→20:05)
[2019-04-10 08:00] VITALS: BP 128/70
[2019-04-10] MEDS: HYDROGEN PEROXIDE 3% 118 ML BOTTLE TOP SCH ×2 (09:00→21:45)
[2019-04-10] MEDS: PHENOBARBITAL 30 MG/7.5 ML LIQUID UDC GT SCH ×2 (09:40→20:36)
[2019-04-10] MEDS: PHENYTOIN 100 MG/4 ML UDC GT SCH ×2 (09:40→20:36)
[2019-04-10] MEDS: CHOLECALCIFEROL 400 UNITS TABLET GT SCH ×2 (09:41→20:38)
[2019-04-10] MEDS: Z GUARD REMEDY PASTE 57 GM TUBE TOP SCH ×2 (09:41→20:38)
[2019-04-10] MEDS: PROTEIN SUPPLEMENT (PROSTAT) 30 ML LIQUID GT SCH ×2 (09:41→20:36)
[2019-04-10] MEDS: VITAMINS A AND D OINT TP SCH ×3 (09:41→20:38)
[2019-04-10] MEDS: CETAPHIL TOP SCH ×2 (09:41→20:38)
[2019-04-10] MEDS: CLOTRIMAZOLE 1% CREAM 30 GM TUBE TP SCH ×2 (09:41→20:38)
[2019-04-10] MEDS: BETAMET DP 0.05% AUGM CR 15 GM CREAM.GM. TP SCH ×2 (09:41→20:38)
[2019-04-10 20:13] VITALS: BP 132/81
[2019-04-11] MEDS: JEVITY 1.2 1000 ML LIQUID GT PRN (04:30)
[2019-04-11] MEDS: OMEPRAZOLE 20 MG CAPSULE.DR GT SCH ×2 (05:33→20:03)
[2019-04-11] MEDS: ALBUTEROL SULFATE 2.5 MG/ 0.5 ML NEBU NEB SCH ×4 (07:57→19:11)
[2019-04-11] MEDS: IPRATROPIUM BROMIDE 0.5 MG/2.5 ML NEBU NEB SCH ×4 (07:57→19:11)
[2019-04-11 08:00] VITALS: BP 106/77
[2019-04-11] MEDS: CHOLECALCIFEROL 400 UNITS TABLET GT SCH ×2 (09:00→20:03)
[2019-04-11] MEDS: CETAPHIL TOP SCH ×2 (09:00→20:03)
[2019-04-11] MEDS: Z GUARD REMEDY PASTE 57 GM TUBE TOP SCH ×2 (09:00→20:03)
[2019-04-11] MEDS: PHENYTOIN 100 MG/4 ML UDC GT SCH ×2 (09:00→20:01)
[2019-04-11] MEDS: CLOTRIMAZOLE 1% CREAM 30 GM TUBE TP SCH ×2 (09:00→20:04)
[2019-04-11] MEDS: PROTEIN SUPPLEMENT (PROSTAT) 30 ML LIQUID GT SCH ×2 (09:00→20:03)
[2019-04-11] MEDS: VITAMINS A AND D OINT TP SCH ×3 (09:00→20:04)
[2019-04-11] MEDS: PHENOBARBITAL 30 MG/7.5 ML LIQUID UDC GT SCH ×2 (09:00→20:03)
[2019-04-11] MEDS: HYDROGEN PEROXIDE 3% 118 ML BOTTLE TOP SCH ×2 (09:00→21:23)
[2019-04-11] MEDS: BETAMET DP 0.05% AUGM CR 15 GM CREAM.GM. TP SCH ×2 (09:00→20:03)
--- NOTE | 2019-04-11 19:12 | NUR ---
Pt received on HT-50 ventilator with the following settings of AC-14, Vt-700, FIO2-35%, trached with Shiley#8 XLT Distal trach, which is in the place and secure. No distress noted. Airway care done, pt responded to physical stimuli. In-line HHN tx with 2.5mg Albuterol+0.5mg Atrovent given, no adverse reaction noted. HME changed. Resus. bag and back up trach at bedside. Vent and alarms checked and reset.
[2019-04-11 20:16] VITALS: BP 150/79
[2019-04-12] MEDS: JEVITY 1.2 1000 ML LIQUID GT PRN (05:00)
[2019-04-12] MEDS: OMEPRAZOLE 20 MG CAPSULE.DR GT SCH ×2 (05:15→20:36)
[2019-04-12] MEDS: IPRATROPIUM BROMIDE 0.5 MG/2.5 ML NEBU NEB SCH ×4 (07:38→19:01)
[2019-04-12] MEDS: ALBUTEROL SULFATE 2.5 MG/ 0.5 ML NEBU NEB SCH ×4 (07:38→19:01)
[2019-04-12 08:00] VITALS: BP 103/75
[2019-04-12] MEDS: HYDROGEN PEROXIDE 3% 118 ML BOTTLE TOP SCH ×2 (08:09→21:14)
--- NOTE | 2019-04-12 08:21 | NUR ---
Pharmacy Update from 04/06/19 IDT meeting VS: Temp 97.9 HR 80 BP 128/77 LABS: (from 03/18/18, no new labs) Wbc 6.4 H/H 16/46.5 Plt 138 Na 141 K 4.8 Cl 106 CO2 30 BUN/SCr 14/0.7 BS 85 Ca 9.1 MEDICATION USE REVIEW: > Pt is not any anti-psych medications > Pt is on Phenobarbital 60mg BID; last level on 03/18/19 was 22.2 (15-39) within therapeutic range. > Pt is on Phenytoin 150mg q12hrs; last level on 03/18/19 was 7.7 (10-20), no need for correction, alb wnl. MD elected to continue same dose as pt has been on current regimen for years without seizures. No seizure activity noted > PRN MED USAGE: (Dec) Tylenol for pain used x 0 Tylenol for temp used x 0 Thorazine for hiccups used x 0 Ativan used x 4 on 0 separate days for retching Compro used x 0 days (15min before getting up in chair) Compro used x 0 for N/V (may use with ativan) Bisacodyl PRN used x 3 NEW ORDERS NOTED: > NA Rx reviewed current regimen and patient was discussed in detail with no medication concerns at this time. Patient continues stable on current regimen, no further recs at this time. Recommended anti-seizure med levels ordered and resulted, please see above, no issues per MD or staff. Will continue to follow
[2019-04-12] MEDS: PROTEIN SUPPLEMENT (PROSTAT) 30 ML LIQUID GT SCH ×2 (09:04→20:36)
[2019-04-12] MEDS: CHOLECALCIFEROL 400 UNITS TABLET GT SCH ×2 (09:05→20:36)
[2019-04-12] MEDS: Z GUARD REMEDY PASTE 57 GM TUBE TOP SCH ×2 (09:06→20:36)
[2019-04-12] MEDS: PHENYTOIN 100 MG/4 ML UDC GT SCH ×2 (09:09→20:36)
[2019-04-12] MEDS: PHENOBARBITAL 30 MG/7.5 ML LIQUID UDC GT SCH ×2 (09:11→20:36)
[2019-04-12] MEDS: BETAMET DP 0.05% AUGM CR 15 GM CREAM.GM. TP SCH ×2 (09:11→20:37)
[2019-04-12] MEDS: CLOTRIMAZOLE 1% CREAM 30 GM TUBE TP SCH ×2 (09:11→20:37)
[2019-04-12] MEDS: VITAMINS A AND D OINT TP SCH ×3 (09:11→20:37)
[2019-04-12] MEDS: CETAPHIL TOP SCH ×2 (09:11→20:36)
--- NOTE | 2019-04-12 10:56 | NUR ---
SW received patient's annual admission paperwork that was signed by patient's mother KAUSHIK Blair. KAUSHIK was in on Friday04/10/2019 visiting the patient, and she had dropped the signed paperwork off for this SW. Received by this SW today, Friday04/12/2019. The signed paperwork included: Conditions of Admission, Patient Rights Acknowledgement, An Important Message from Medicare about your Rights, Documentation of Preferred Intensity of Care, Voluntary Prior Express Consent Form, Race and Ethnicity Patient Self-Identification, and the [facility] Agreement. For previous assessment/quarterly information, see patient's previous chart #[id number].
--- NOTE | 2019-04-12 19:02 | NUR ---
Pt received on HT-50 ventilator with the following settings of AC-14, Vt-700, FIO2-35%, trached with Shiley#8 XLT Distal trach, which is in the place and secure. No SOB noted. Airway care done, pt responded to physical stimuli. In-line HHN tx with 2.5mg Albuterol+0.5mg Atrovent given, no adverse reaction noted. HME changed. Resus. bag and back up trach at bedside. Vent and alarms checked and reset.
[2019-04-12 20:47] VITALS: BP 126/72
[2019-04-13] MEDS: JEVITY 1.2 1000 ML LIQUID GT PRN (05:00)
[2019-04-13] MEDS: chlorproMAZINE 25 MG TABLET GT PRN (05:00)
[2019-04-13] MEDS: OMEPRAZOLE 20 MG CAPSULE.DR GT SCH ×2 (06:07→21:03)
[2019-04-13] MEDS: ALBUTEROL SULFATE 2.5 MG/ 0.5 ML NEBU NEB SCH ×4 (07:58→19:10)
[2019-04-13] MEDS: IPRATROPIUM BROMIDE 0.5 MG/2.5 ML NEBU NEB SCH ×4 (07:58→19:10)
[2019-04-13 08:00] VITALS: BP 123/72
[2019-04-13] MEDS: CLOTRIMAZOLE 1% CREAM 30 GM TUBE TP SCH ×2 (08:13→21:03)
[2019-04-13] MEDS: BETAMET DP 0.05% AUGM CR 15 GM CREAM.GM. TP SCH ×2 (08:13→21:03)
[2019-04-13] MEDS: PHENOBARBITAL 30 MG/7.5 ML LIQUID UDC GT SCH ×2 (08:13→21:03)
[2019-04-13] MEDS: VITAMINS A AND D OINT TP SCH ×3 (08:13→21:04)
[2019-04-13] MEDS: Z GUARD REMEDY PASTE 57 GM TUBE TOP SCH ×2 (08:13→21:03)
[2019-04-13] MEDS: CETAPHIL TOP SCH ×2 (08:13→21:03)
[2019-04-13] MEDS: PROTEIN SUPPLEMENT (PROSTAT) 30 ML LIQUID GT SCH ×2 (08:13→21:03)
[2019-04-13] MEDS: CHOLECALCIFEROL 400 UNITS TABLET GT SCH ×2 (08:13→21:03)
[2019-04-13] MEDS: PHENYTOIN 100 MG/4 ML UDC GT SCH ×2 (08:13→21:03)
[2019-04-13] MEDS: HYDROGEN PEROXIDE 3% 118 ML BOTTLE TOP SCH ×2 (09:00→21:05)
[2019-04-13 20:02] VITALS: BP 128/75
--- NOTE | 2019-04-14 01:45 | NUR ---
PT ON CONT HT 50 VENT WITH SHILEY # [address] AND SECURED, WITH SAME CURRENT VENT SETTINGS, PT DOES ASSIST AT TIMES, STRONG COUGH EFFORT, SUCTIONED LIGHT PALE YELL TINGE SECRETIONS, CHECK CUFF, NEB INLINE X 1 TOLL WELL, CHANGE HME , TRACH CARE DONE. Kiki PADILLAP Addendum: 04/14/19 at 0147 by NA CARNES RT Amended: Links added.
[2019-04-14] MEDS: JEVITY 1.2 1000 ML LIQUID GT PRN (05:00)
[2019-04-14] MEDS: OMEPRAZOLE 20 MG CAPSULE.DR GT SCH ×2 (05:36→21:45)
[2019-04-14] MEDS: ALBUTEROL SULFATE 2.5 MG/ 0.5 ML NEBU NEB SCH ×4 (07:38→19:07)
[2019-04-14] MEDS: IPRATROPIUM BROMIDE 0.5 MG/2.5 ML NEBU NEB SCH ×4 (07:38→19:07)
[2019-04-14 08:00] VITALS: BP 110/64
[2019-04-14] MEDS: PHENYTOIN 100 MG/4 ML UDC GT SCH ×2 (08:49→21:42)
[2019-04-14] MEDS: PHENOBARBITAL 30 MG/7.5 ML LIQUID UDC GT SCH ×2 (08:50→21:43)
[2019-04-14] MEDS: PROTEIN SUPPLEMENT (PROSTAT) 30 ML LIQUID GT SCH ×2 (08:50→21:46)
[2019-04-14] MEDS: CHOLECALCIFEROL 400 UNITS TABLET GT SCH ×2 (08:51→21:47)
[2019-04-14] MEDS: CETAPHIL TOP SCH ×2 (08:52→21:48)
[2019-04-14] MEDS: Z GUARD REMEDY PASTE 57 GM TUBE TOP SCH ×2 (08:53→21:48)
[2019-04-14] MEDS: BETAMET DP 0.05% AUGM CR 15 GM CREAM.GM. TP SCH ×2 (08:53→21:48)
[2019-04-14] MEDS: CLOTRIMAZOLE 1% CREAM 30 GM TUBE TP SCH ×2 (08:55→21:48)
[2019-04-14] MEDS: VITAMINS A AND D OINT TP SCH ×3 (08:55→21:48)
[2019-04-14] MEDS: HYDROGEN PEROXIDE 3% 118 ML BOTTLE TOP SCH ×2 (09:00→21:49)
[2019-04-14 20:00] VITALS: BP 138/79
[2019-04-15] MEDS: OMEPRAZOLE 20 MG CAPSULE.DR GT SCH ×2 (06:02→20:21)
[2019-04-15] MEDS: IPRATROPIUM BROMIDE 0.5 MG/2.5 ML NEBU NEB SCH ×4 (07:27→19:11)
[2019-04-15] MEDS: ALBUTEROL SULFATE 2.5 MG/ 0.5 ML NEBU NEB SCH ×4 (07:27→19:11)
[2019-04-15] MEDS: HYDROGEN PEROXIDE 3% 118 ML BOTTLE TOP SCH ×2 (07:27→21:13)
[2019-04-15 08:00] VITALS: BP 115/70
[2019-04-15] MEDS: PHENYTOIN 100 MG/4 ML UDC GT SCH ×2 (08:43→20:21)
[2019-04-15] MEDS: PHENOBARBITAL 30 MG/7.5 ML LIQUID UDC GT SCH ×2 (08:43→20:21)
[2019-04-15] MEDS: PROTEIN SUPPLEMENT (PROSTAT) 30 ML LIQUID GT SCH ×2 (08:44→20:21)
[2019-04-15] MEDS: CHOLECALCIFEROL 400 UNITS TABLET GT SCH ×2 (08:44→20:21)
[2019-04-15] MEDS: BETAMET DP 0.05% AUGM CR 15 GM CREAM.GM. TP SCH ×2 (08:45→20:22)
[2019-04-15] MEDS: CLOTRIMAZOLE 1% CREAM 30 GM TUBE TP SCH ×2 (08:45→20:22)
[2019-04-15] MEDS: Z GUARD REMEDY PASTE 57 GM TUBE TOP SCH ×2 (08:45→20:22)
[2019-04-15] MEDS: VITAMINS A AND D OINT TP SCH ×3 (08:45→21:28)
[2019-04-15] MEDS: CETAPHIL TOP SCH ×2 (08:45→20:22)
[2019-04-15 20:00] VITALS: BP 129/78
[2019-04-16] MEDS: JEVITY 1.2 1000 ML LIQUID GT PRN ×2 (00:51→17:40)
[2019-04-16] MEDS: OMEPRAZOLE 20 MG CAPSULE.DR GT SCH ×2 (05:35→21:29)
[2019-04-16] MEDS: IPRATROPIUM BROMIDE 0.5 MG/2.5 ML NEBU NEB SCH ×4 (07:10→18:42)
[2019-04-16] MEDS: ALBUTEROL SULFATE 2.5 MG/ 0.5 ML NEBU NEB SCH ×4 (07:10→18:42)
[2019-04-16] MEDS: CETAPHIL TOP SCH ×2 (08:54→21:32)
[2019-04-16] MEDS: CHOLECALCIFEROL 400 UNITS TABLET GT SCH ×2 (08:54→21:31)
[2019-04-16] MEDS: PHENYTOIN 100 MG/4 ML UDC GT SCH ×2 (08:54→21:27)
[2019-04-16] MEDS: PHENOBARBITAL 30 MG/7.5 ML LIQUID UDC GT SCH ×2 (08:54→21:28)
[2019-04-16] MEDS: PROTEIN SUPPLEMENT (PROSTAT) 30 ML LIQUID GT SCH ×2 (08:54→21:31)
[2019-04-16] MEDS: BETAMET DP 0.05% AUGM CR 15 GM CREAM.GM. TP SCH ×2 (08:55→21:32)
[2019-04-16] MEDS: Z GUARD REMEDY PASTE 57 GM TUBE TOP SCH ×2 (08:55→21:32)
[2019-04-16] MEDS: CLOTRIMAZOLE 1% CREAM 30 GM TUBE TP SCH ×2 (08:55→21:32)
[2019-04-16] MEDS: VITAMINS A AND D OINT TP SCH ×3 (08:55→21:32)
[2019-04-16] MEDS: HYDROGEN PEROXIDE 3% 118 ML BOTTLE TOP SCH ×2 (09:00→18:42)
[2019-04-16 11:16] VITALS: BP 115/70
[2019-04-16 20:00] VITALS: BP 129/78
[2019-04-17] MEDS: OMEPRAZOLE 20 MG CAPSULE.DR GT SCH ×2 (05:42→21:43)
[2019-04-17] MEDS: IPRATROPIUM BROMIDE 0.5 MG/2.5 ML NEBU NEB SCH ×4 (07:19→19:41)
[2019-04-17] MEDS: ALBUTEROL SULFATE 2.5 MG/ 0.5 ML NEBU NEB SCH ×4 (07:19→19:41)
[2019-04-17] MEDS: PHENYTOIN 100 MG/4 ML UDC GT SCH ×2 (08:34→21:41)
[2019-04-17] MEDS: PHENOBARBITAL 30 MG/7.5 ML LIQUID UDC GT SCH ×2 (08:34→21:42)
[2019-04-17] MEDS: PROTEIN SUPPLEMENT (PROSTAT) 30 ML LIQUID GT SCH ×2 (08:35→21:44)
[2019-04-17] MEDS: CHOLECALCIFEROL 400 UNITS TABLET GT SCH ×2 (08:35→21:44)
[2019-04-17] MEDS: CETAPHIL TOP SCH ×2 (08:36→21:44)
[2019-04-17] MEDS: Z GUARD REMEDY PASTE 57 GM TUBE TOP SCH ×2 (08:36→21:44)
[2019-04-17] MEDS: VITAMINS A AND D OINT TP SCH ×3 (08:36→21:45)
[2019-04-17] MEDS: CLOTRIMAZOLE 1% CREAM 30 GM TUBE TP SCH ×2 (08:36→21:45)
[2019-04-17] MEDS: BETAMET DP 0.05% AUGM CR 15 GM CREAM.GM. TP SCH ×2 (08:36→21:45)
[2019-04-17] MEDS: BISACODYL 10 MG SUPP.RECT RC PRN (08:40)
[2019-04-17] MEDS: HYDROGEN PEROXIDE 3% 118 ML BOTTLE TOP SCH ×2 (10:00→21:00)
[2019-04-17 12:02] VITALS: BP 138/83
[2019-04-17] MEDS: JEVITY 1.2 1000 ML LIQUID GT PRN (13:48)
[2019-04-17 20:04] VITALS: BP 133/78
[2019-04-18] MEDS: OMEPRAZOLE 20 MG CAPSULE.DR GT SCH ×2 (05:45→21:53)
[2019-04-18] MEDS: IPRATROPIUM BROMIDE 0.5 MG/2.5 ML NEBU NEB SCH ×4 (07:32→18:36)
[2019-04-18] MEDS: ALBUTEROL SULFATE 2.5 MG/ 0.5 ML NEBU NEB SCH ×4 (07:32→18:36)
[2019-04-18 08:03] VITALS: BP 123/79
[2019-04-18] MEDS: PHENYTOIN 100 MG/4 ML UDC GT SCH ×2 (08:20→21:53)
[2019-04-18] MEDS: PHENOBARBITAL 30 MG/7.5 ML LIQUID UDC GT SCH ×2 (08:21→21:53)
[2019-04-18] MEDS: PROTEIN SUPPLEMENT (PROSTAT) 30 ML LIQUID GT SCH ×2 (08:22→21:53)
[2019-04-18] MEDS: Z GUARD REMEDY PASTE 57 GM TUBE TOP SCH ×2 (08:22→21:53)
[2019-04-18] MEDS: CHOLECALCIFEROL 400 UNITS TABLET GT SCH ×2 (08:22→21:53)
[2019-04-18] MEDS: CETAPHIL TOP SCH ×2 (08:22→21:53)
[2019-04-18] MEDS: CLOTRIMAZOLE 1% CREAM 30 GM TUBE TP SCH ×2 (08:23→21:54)
[2019-04-18] MEDS: BETAMET DP 0.05% AUGM CR 15 GM CREAM.GM. TP SCH ×2 (08:23→21:54)
[2019-04-18] MEDS: VITAMINS A AND D OINT TP SCH ×3 (08:23→21:54)
[2019-04-18] MEDS: HYDROGEN PEROXIDE 3% 118 ML BOTTLE TOP SCH ×2 (10:10→18:36)
[2019-04-18 20:44] VITALS: BP 140/90
[2019-04-19] MEDS: OMEPRAZOLE 20 MG CAPSULE.DR GT SCH ×2 (05:35→20:22)
[2019-04-19] MEDS: ALBUTEROL SULFATE 2.5 MG/ 0.5 ML NEBU NEB SCH ×4 (07:02→18:55)
[2019-04-19] MEDS: IPRATROPIUM BROMIDE 0.5 MG/2.5 ML NEBU NEB SCH ×4 (07:02→18:55)
--- NOTE | 2019-04-19 07:05 | NUR ---
PT RECEIVED ON CONTINUOUS VENT TOLERATING CURRENT VENT SETTINGS WELL, NO DISTRESS NOTED AT THIS TIME. TRACH CHANGED DONE WITH MINIMAL BLEEDING NOTED. IN LINE TX GIVEN ORDERED. TRACH TUBE IN PLACE PATENT AND SECURE WITH TRACH TIE. VENT ALARMS AUDIBLE, CHECKED AND RESET. AMBU BAG AND BACK-UP TRACH AT BEDSIDE. WILL CONTINUE TO MONITOR.
[2019-04-19 08:00] VITALS: BP 120/79
[2019-04-19] MEDS: PHENOBARBITAL 30 MG/7.5 ML LIQUID UDC GT SCH ×2 (08:07→20:22)
[2019-04-19] MEDS: PHENYTOIN 100 MG/4 ML UDC GT SCH ×2 (08:07→20:22)
[2019-04-19] MEDS: PROTEIN SUPPLEMENT (PROSTAT) 30 ML LIQUID GT SCH ×2 (08:08→20:22)
[2019-04-19] MEDS: CHOLECALCIFEROL 400 UNITS TABLET GT SCH ×2 (08:08→20:23)
[2019-04-19] MEDS: Z GUARD REMEDY PASTE 57 GM TUBE TOP SCH ×2 (08:09→20:24)
[2019-04-19] MEDS: BETAMET DP 0.05% AUGM CR 15 GM CREAM.GM. TP SCH ×2 (08:09→20:24)
[2019-04-19] MEDS: CLOTRIMAZOLE 1% CREAM 30 GM TUBE TP SCH ×2 (08:09→20:24)
[2019-04-19] MEDS: CETAPHIL TOP SCH ×2 (08:09→20:23)
[2019-04-19] MEDS: VITAMINS A AND D OINT TP SCH ×3 (08:09→20:24)
[2019-04-19] MEDS: HYDROGEN PEROXIDE 3% 118 ML BOTTLE TOP SCH ×2 (08:41→21:12)
[2019-04-19 20:10] VITALS: BP 127/80
[2019-04-20] MEDS: JEVITY 1.2 1000 ML LIQUID GT PRN (00:30)
[2019-04-20] MEDS: OMEPRAZOLE 20 MG CAPSULE.DR GT SCH ×2 (06:04→21:19)
[2019-04-20] MEDS: IPRATROPIUM BROMIDE 0.5 MG/2.5 ML NEBU NEB SCH ×4 (07:57→18:51)
[2019-04-20] MEDS: ALBUTEROL SULFATE 2.5 MG/ 0.5 ML NEBU NEB SCH ×4 (07:57→18:51)
[2019-04-20 08:00] VITALS: BP 108/68
[2019-04-20] MEDS: PHENYTOIN 100 MG/4 ML UDC GT SCH ×2 (08:29→21:19)
[2019-04-20] MEDS: PHENOBARBITAL 30 MG/7.5 ML LIQUID UDC GT SCH ×2 (08:29→21:19)
[2019-04-20] MEDS: CHOLECALCIFEROL 400 UNITS TABLET GT SCH ×2 (08:30→21:19)
[2019-04-20] MEDS: PROTEIN SUPPLEMENT (PROSTAT) 30 ML LIQUID GT SCH ×2 (08:30→21:19)
[2019-04-20] MEDS: Z GUARD REMEDY PASTE 57 GM TUBE TOP SCH ×2 (08:31→21:19)
[2019-04-20] MEDS: CETAPHIL TOP SCH ×2 (08:31→21:19)
[2019-04-20] MEDS: VITAMINS A AND D OINT TP SCH ×3 (08:31→21:20)
[2019-04-20] MEDS: CLOTRIMAZOLE 1% CREAM 30 GM TUBE TP SCH ×2 (08:31→21:19)
[2019-04-20] MEDS: BETAMET DP 0.05% AUGM CR 15 GM CREAM.GM. TP SCH ×2 (08:31→21:19)
[2019-04-20] MEDS: HYDROGEN PEROXIDE 3% 118 ML BOTTLE TOP SCH ×2 (09:00→21:31)
--- NOTE | 2019-04-20 18:52 | NUR ---
Received pt awake, on HT-50 ventilator with the following settings of AC-14, Vt-700, FIO2-35%, trached with Shiley#8 XLT Distal trach, which is in the place and secure. No s/s of respiratory distress noted. Airway care done, pt responded to physical stimuli. In-line HHN tx with 2.5mg Albuterol+0.5mg Atrovent given, pt tolerated well. HME changed. Resus. bag and back up trach at bedside. Vent and alarms checked and reset.
[2019-04-20 20:22] VITALS: BP 114/80
[2019-04-21] MEDS: JEVITY 1.2 1000 ML LIQUID GT PRN (02:00)
[2019-04-21] MEDS: OMEPRAZOLE 20 MG CAPSULE.DR GT SCH ×2 (05:19→21:33)
[2019-04-21] MEDS: ALBUTEROL SULFATE 2.5 MG/ 0.5 ML NEBU NEB SCH ×4 (07:30→18:36)
[2019-04-21] MEDS: IPRATROPIUM BROMIDE 0.5 MG/2.5 ML NEBU NEB SCH ×4 (07:30→18:36)
[2019-04-21 08:00] VITALS: BP 129/86
[2019-04-21] MEDS: HYDROGEN PEROXIDE 3% 118 ML BOTTLE TOP SCH ×2 (08:45→18:36)
[2019-04-21] MEDS: Z GUARD REMEDY PASTE 57 GM TUBE TOP SCH ×2 (08:58→21:33)
[2019-04-21] MEDS: CETAPHIL TOP SCH ×2 (08:58→21:33)
[2019-04-21] MEDS: PROTEIN SUPPLEMENT (PROSTAT) 30 ML LIQUID GT SCH ×2 (08:58→21:33)
[2019-04-21] MEDS: BETAMET DP 0.05% AUGM CR 15 GM CREAM.GM. TP SCH ×2 (08:58→21:33)
[2019-04-21] MEDS: PHENOBARBITAL 30 MG/7.5 ML LIQUID UDC GT SCH ×2 (08:58→21:33)
[2019-04-21] MEDS: CHOLECALCIFEROL 400 UNITS TABLET GT SCH ×2 (08:58→21:33)
[2019-04-21] MEDS: PHENYTOIN 100 MG/4 ML UDC GT SCH ×2 (08:58→21:32)
[2019-04-21] MEDS: CLOTRIMAZOLE 1% CREAM 30 GM TUBE TP SCH ×2 (08:59→21:33)
[2019-04-21] MEDS: VITAMINS A AND D OINT TP SCH ×3 (08:59→21:33)
[2019-04-21 22:38] VITALS: BP 132/75
[2019-04-22] MEDS: JEVITY 1.2 1000 ML LIQUID GT PRN (01:00)
[2019-04-22] MEDS: OMEPRAZOLE 20 MG CAPSULE.DR GT SCH ×2 (06:56→21:54)
[2019-04-22] MEDS: IPRATROPIUM BROMIDE 0.5 MG/2.5 ML NEBU NEB SCH ×4 (07:22→19:10)
[2019-04-22] MEDS: HYDROGEN PEROXIDE 3% 118 ML BOTTLE TOP SCH ×2 (07:22→21:04)
[2019-04-22] MEDS: ALBUTEROL SULFATE 2.5 MG/ 0.5 ML NEBU NEB SCH ×4 (07:22→19:10)
[2019-04-22 08:00] VITALS: BP 125/77
--- NOTE | 2019-04-22 08:30 | NUR ---
PT. RECEIVED WITH PERIANAL EXCORIATION AND WITH LOCAL TX STARTED FROM DR. MORE.
[2019-04-22] MEDS: PHENOBARBITAL 30 MG/7.5 ML LIQUID UDC GT SCH ×2 (08:31→21:54)
[2019-04-22] MEDS: PHENYTOIN 100 MG/4 ML UDC GT SCH ×2 (08:31→21:54)
[2019-04-22] MEDS: PROTEIN SUPPLEMENT (PROSTAT) 30 ML LIQUID GT SCH ×2 (08:33→21:54)
[2019-04-22] MEDS: CETAPHIL TOP SCH ×2 (08:33→21:54)
[2019-04-22] MEDS: CHOLECALCIFEROL 400 UNITS TABLET GT SCH ×2 (08:33→21:54)
[2019-04-22] MEDS: CLOTRIMAZOLE 1% CREAM 30 GM TUBE TP SCH ×2 (08:34→21:55)
[2019-04-22] MEDS: BETAMET DP 0.05% AUGM CR 15 GM CREAM.GM. TP SCH ×2 (08:34→21:55)
[2019-04-22] MEDS: Z GUARD REMEDY PASTE 57 GM TUBE TOP SCH ×2 (08:34→21:55)
[2019-04-22] MEDS: VITAMINS A AND D OINT TP SCH ×3 (08:34→21:55)
--- NOTE | 2019-04-22 12:20 | NUR ---
MESSAGE LEFT TO PT'S MOTHER RE:PERIANAL EXCORIATION.
[2019-04-22] MEDS: COD LIVER OIL/ZINC OXIDE OINT 113 GM TUBE TP SCH ×2 (12:54→21:55)
--- NOTE | 2019-04-22 13:50 | NUR ---
NEW ORDER WAS CARRIED OUT FROM DR. MONTANO ,PER YESSY([employer] IV PHARMACIST) START FROM GLENNA BUENO I.V.
--- NOTE | 2019-04-22 13:50 | NUR ---
WRONG ACCOUNT ENTRY.
--- NOTE | 2019-04-22 19:10 | NUR ---
PT RECEIVED ON CONTINUOUS VENT TOLERATING CURRENT VENT SETTINGS WELL, NO DISTRESS NOTED AT THIS TIME. TRACH CARE DONE . IN LINE TX GIVEN ORDERED. TRACH TUBE IN PLACE PATENT AND SECURE WITH TRACH TIE. VENT ALARMS AUDIBLE, CHECKED AND RESET. AMBU BAG AND BACK-UP TRACH AT BEDSIDE. WILL CONTINUE TO MONITOR.
[2019-04-22 20:07] VITALS: BP 138/81
[2019-04-23] MEDS: JEVITY 1.2 1000 ML LIQUID GT PRN (01:00)
[2019-04-23] MEDS: OMEPRAZOLE 20 MG CAPSULE.DR GT SCH ×2 (06:37→20:31)
[2019-04-23] MEDS: ALBUTEROL SULFATE 2.5 MG/ 0.5 ML NEBU NEB SCH ×4 (07:24→19:05)
[2019-04-23] MEDS: IPRATROPIUM BROMIDE 0.5 MG/2.5 ML NEBU NEB SCH ×4 (07:24→19:05)
[2019-04-23 08:02] VITALS: BP 115/79
[2019-04-23] MEDS: PHENYTOIN 100 MG/4 ML UDC GT SCH ×2 (08:44→20:29)
[2019-04-23] MEDS: CHOLECALCIFEROL 400 UNITS TABLET GT SCH ×2 (08:44→20:31)
[2019-04-23] MEDS: PHENOBARBITAL 30 MG/7.5 ML LIQUID UDC GT SCH ×2 (08:44→20:29)
[2019-04-23] MEDS: PROTEIN SUPPLEMENT (PROSTAT) 30 ML LIQUID GT SCH ×2 (08:44→20:31)
[2019-04-23] MEDS: CETAPHIL TOP SCH ×2 (08:44→20:33)
[2019-04-23] MEDS: Z GUARD REMEDY PASTE 57 GM TUBE TOP SCH ×2 (08:44→20:33)
[2019-04-23] MEDS: CLOTRIMAZOLE 1% CREAM 30 GM TUBE TP SCH ×2 (08:45→20:34)
[2019-04-23] MEDS: BETAMET DP 0.05% AUGM CR 15 GM CREAM.GM. TP SCH ×2 (08:45→20:33)
[2019-04-23] MEDS: COD LIVER OIL/ZINC OXIDE OINT 113 GM TUBE TP SCH ×2 (08:45→20:34)
[2019-04-23] MEDS: VITAMINS A AND D OINT TP SCH ×3 (08:45→20:34)
[2019-04-23] MEDS: HYDROGEN PEROXIDE 3% 118 ML BOTTLE TOP SCH ×2 (09:00→20:33)
[2019-04-23 22:42] VITALS: BP 133/83
[2019-04-24] MEDS: OMEPRAZOLE 20 MG CAPSULE.DR GT SCH ×2 (06:35→21:41)
[2019-04-24] MEDS: ALBUTEROL SULFATE 2.5 MG/ 0.5 ML NEBU NEB SCH ×4 (07:00→19:09)
[2019-04-24] MEDS: IPRATROPIUM BROMIDE 0.5 MG/2.5 ML NEBU NEB SCH ×4 (07:00→19:09)
[2019-04-24 08:03] VITALS: BP 127/69
[2019-04-24] MEDS: PHENYTOIN 100 MG/4 ML UDC GT SCH ×2 (08:30→21:41)
[2019-04-24] MEDS: PHENOBARBITAL 30 MG/7.5 ML LIQUID UDC GT SCH ×2 (08:34→21:41)
[2019-04-24] MEDS: PROTEIN SUPPLEMENT (PROSTAT) 30 ML LIQUID GT SCH ×2 (08:34→21:41)
[2019-04-24] MEDS: CHOLECALCIFEROL 400 UNITS TABLET GT SCH ×2 (08:34→21:42)
[2019-04-24] MEDS: CETAPHIL TOP SCH ×2 (08:35→21:42)
[2019-04-24] MEDS: HYDROGEN PEROXIDE 3% 118 ML BOTTLE TOP SCH ×2 (08:48→21:12)
[2019-04-24] MEDS: Z GUARD REMEDY PASTE 57 GM TUBE TOP SCH ×2 (09:00→21:42)
[2019-04-24] MEDS: VITAMINS A AND D OINT TP SCH ×3 (09:00→21:42)
[2019-04-24] MEDS: BETAMET DP 0.05% AUGM CR 15 GM CREAM.GM. TP SCH ×2 (09:00→21:42)
[2019-04-24] MEDS: CLOTRIMAZOLE 1% CREAM 30 GM TUBE TP SCH ×2 (09:00→21:42)
[2019-04-24] MEDS: COD LIVER OIL/ZINC OXIDE OINT 113 GM TUBE TP SCH ×2 (09:00→21:42)
[2019-04-24] MEDS: JEVITY 1.2 1000 ML LIQUID GT PRN (17:36)
[2019-04-24 23:00] VITALS: BP 129/76
[2019-04-25] MEDS: OMEPRAZOLE 20 MG CAPSULE.DR GT SCH ×2 (05:41→21:19)
[2019-04-25] MEDS: IPRATROPIUM BROMIDE 0.5 MG/2.5 ML NEBU NEB SCH ×4 (07:38→18:59)
[2019-04-25] MEDS: ALBUTEROL SULFATE 2.5 MG/ 0.5 ML NEBU NEB SCH ×4 (07:38→18:59)
[2019-04-25 08:00] VITALS: BP 126/80
[2019-04-25] MEDS: HYDROGEN PEROXIDE 3% 118 ML BOTTLE TOP SCH ×2 (08:27→20:57)
[2019-04-25] MEDS: PHENYTOIN 100 MG/4 ML UDC GT SCH ×2 (08:50→21:18)
[2019-04-25] MEDS: CETAPHIL TOP SCH ×2 (08:50→21:20)
[2019-04-25] MEDS: BETAMET DP 0.05% AUGM CR 15 GM CREAM.GM. TP SCH ×2 (08:50→21:20)
[2019-04-25] MEDS: Z GUARD REMEDY PASTE 57 GM TUBE TOP SCH ×2 (08:50→21:20)
[2019-04-25] MEDS: PROTEIN SUPPLEMENT (PROSTAT) 30 ML LIQUID GT SCH ×2 (08:50→21:19)
[2019-04-25] MEDS: PHENOBARBITAL 30 MG/7.5 ML LIQUID UDC GT SCH ×2 (08:50→21:18)
[2019-04-25] MEDS: CHOLECALCIFEROL 400 UNITS TABLET GT SCH ×2 (08:50→21:19)
[2019-04-25] MEDS: CLOTRIMAZOLE 1% CREAM 30 GM TUBE TP SCH ×2 (08:51→21:20)
[2019-04-25] MEDS: COD LIVER OIL/ZINC OXIDE OINT 113 GM TUBE TP SCH ×2 (08:51→21:20)
[2019-04-25] MEDS: VITAMINS A AND D OINT TP SCH ×3 (08:52→21:20)
[2019-04-25 23:00] VITALS: BP 138/85
[2019-04-26] MEDS: OMEPRAZOLE 20 MG CAPSULE.DR GT SCH ×2 (05:54→21:14)
[2019-04-26] MEDS: ALBUTEROL SULFATE 2.5 MG/ 0.5 ML NEBU NEB SCH ×4 (07:10→18:56)
[2019-04-26] MEDS: IPRATROPIUM BROMIDE 0.5 MG/2.5 ML NEBU NEB SCH ×4 (07:10→18:56)
[2019-04-26 08:00] VITALS: BP 133/90
[2019-04-26] MEDS: HYDROGEN PEROXIDE 3% 118 ML BOTTLE TOP SCH ×2 (08:14→20:53)
[2019-04-26] MEDS: BETAMET DP 0.05% AUGM CR 15 GM CREAM.GM. TP SCH ×2 (08:20→21:15)
[2019-04-26] MEDS: PROTEIN SUPPLEMENT (PROSTAT) 30 ML LIQUID GT SCH ×2 (08:20→21:14)
[2019-04-26] MEDS: PHENYTOIN 100 MG/4 ML UDC GT SCH ×2 (08:20→21:14)
[2019-04-26] MEDS: CLOTRIMAZOLE 1% CREAM 30 GM TUBE TP SCH ×2 (08:20→21:15)
[2019-04-26] MEDS: COD LIVER OIL/ZINC OXIDE OINT 113 GM TUBE TP SCH ×2 (08:20→21:15)
[2019-04-26] MEDS: VITAMINS A AND D OINT TP SCH ×3 (08:20→21:15)
[2019-04-26] MEDS: CHOLECALCIFEROL 400 UNITS TABLET GT SCH ×2 (08:20→21:14)
[2019-04-26] MEDS: CETAPHIL TOP SCH ×2 (08:20→21:15)
[2019-04-26] MEDS: PHENOBARBITAL 30 MG/7.5 ML LIQUID UDC GT SCH ×2 (08:20→21:14)
[2019-04-26] MEDS: Z GUARD REMEDY PASTE 57 GM TUBE TOP SCH ×2 (08:20→21:15)
--- NOTE | 2019-04-26 18:57 | NUR ---
Received pt on HT-50 ventilator with the following settings of AC-14, Vt-700, FIO2-35%, trached with Shiley#8 XLT Distal trach, which is in the place and secure. No s/s of respiratory distress noted. Airway care done, pt responded to physical stimuli. In-line HHN tx with 2.5mg Albuterol+0.5mg Atrovent given, no adverse reaction noted. HME changed. Resus. bag at bedside. Vent and alarms checked and reset.
[2019-04-26 20:05] VITALS: BP 143/82
[2019-04-27] MEDS: OMEPRAZOLE 20 MG CAPSULE.DR GT SCH ×2 (05:31→21:23)
[2019-04-27] MEDS: ALBUTEROL SULFATE 2.5 MG/ 0.5 ML NEBU NEB SCH ×4 (07:05→19:06)
[2019-04-27] MEDS: IPRATROPIUM BROMIDE 0.5 MG/2.5 ML NEBU NEB SCH ×4 (07:05→19:06)
[2019-04-27 08:30] VITALS: BP 134/77
[2019-04-27] MEDS: PHENYTOIN 100 MG/4 ML UDC GT SCH ×2 (09:27→21:22)
[2019-04-27] MEDS: PHENOBARBITAL 30 MG/7.5 ML LIQUID UDC GT SCH ×2 (09:27→21:22)
[2019-04-27] MEDS: CETAPHIL TOP SCH ×2 (09:27→21:23)
[2019-04-27] MEDS: PROTEIN SUPPLEMENT (PROSTAT) 30 ML LIQUID GT SCH ×2 (09:27→21:23)
[2019-04-27] MEDS: CHOLECALCIFEROL 400 UNITS TABLET GT SCH ×2 (09:27→21:23)
[2019-04-27] MEDS: BETAMET DP 0.05% AUGM CR 15 GM CREAM.GM. TP SCH ×2 (09:27→21:23)
[2019-04-27] MEDS: Z GUARD REMEDY PASTE 57 GM TUBE TOP SCH ×2 (09:28→21:23)
[2019-04-27] MEDS: COD LIVER OIL/ZINC OXIDE OINT 113 GM TUBE TP SCH ×2 (09:28→21:23)
[2019-04-27] MEDS: CLOTRIMAZOLE 1% CREAM 30 GM TUBE TP SCH ×2 (09:28→21:23)
[2019-04-27] MEDS: VITAMINS A AND D OINT TP SCH ×3 (09:28→21:23)
[2019-04-27] MEDS: HYDROGEN PEROXIDE 3% 118 ML BOTTLE TOP SCH ×2 (09:40→21:08)
[2019-04-27 20:42] VITALS: BP 132/84
[2019-04-28] MEDS: OMEPRAZOLE 20 MG CAPSULE.DR GT SCH ×2 (05:52→21:27)
[2019-04-28] MEDS: JEVITY 1.2 1000 ML LIQUID GT PRN (07:05)
[2019-04-28] MEDS: IPRATROPIUM BROMIDE 0.5 MG/2.5 ML NEBU NEB SCH ×4 (07:18→19:00)
[2019-04-28] MEDS: ALBUTEROL SULFATE 2.5 MG/ 0.5 ML NEBU NEB SCH ×4 (07:18→19:00)
[2019-04-28 08:00] VITALS: BP 110/64
[2019-04-28] MEDS: PHENYTOIN 100 MG/4 ML UDC GT SCH ×2 (09:15→21:27)
[2019-04-28] MEDS: PHENOBARBITAL 30 MG/7.5 ML LIQUID UDC GT SCH ×2 (09:15→21:27)
[2019-04-28] MEDS: CHOLECALCIFEROL 400 UNITS TABLET GT SCH ×2 (09:16→21:27)
[2019-04-28] MEDS: PROTEIN SUPPLEMENT (PROSTAT) 30 ML LIQUID GT SCH ×2 (09:16→21:27)
[2019-04-28] MEDS: BETAMET DP 0.05% AUGM CR 15 GM CREAM.GM. TP SCH ×2 (09:17→21:28)
[2019-04-28] MEDS: CETAPHIL TOP SCH ×2 (09:17→21:27)
[2019-04-28] MEDS: CLOTRIMAZOLE 1% CREAM 30 GM TUBE TP SCH ×2 (09:17→21:28)
[2019-04-28] MEDS: VITAMINS A AND D OINT TP SCH ×3 (09:17→21:28)
[2019-04-28] MEDS: Z GUARD REMEDY PASTE 57 GM TUBE TOP SCH ×2 (09:17→21:28)
[2019-04-28] MEDS: COD LIVER OIL/ZINC OXIDE OINT 113 GM TUBE TP SCH ×2 (09:17→21:28)
[2019-04-28] MEDS: HYDROGEN PEROXIDE 3% 118 ML BOTTLE TOP SCH ×2 (09:45→21:27)
--- NOTE | 2019-04-28 20:00 | NUR ---
VSS 98.1-92-14 BP 135/84. SATS 100%. PATIENT OPENS EYES AND TRACKS NURSE'S MOVEMENTS. TRACHED TO VENT: AC=14, FIO2=30%, PU=754, NO PEEP. GTUBE INTACT AND PATENT FOR JEVITY 1.2 @ 70 CC/HOUR. RESIDUAL MINIMAL AND FEEDING CONTINUES. PATIENT IS MAINTAINED ON SEIZURE PRECAUTIONS. ALL SIDERAILS PADDED AT ALL TIMES. NO SEIZURE ACTIVITY SO FAR. INCONTINENT OF BOWEL AND BLADDER. NO SIGNS OF DISTRESS.
[2019-04-28 20:46] VITALS: BP 135/84
--- NOTE | 2019-04-28 21:33 | NUR ---
Resident endorsed on Ht-50 [place] ventilator with ordered vent settings. No signs of SOB noted at this time. Inline treatments administered and tolerated well, no adverse reactions. Airway i patent and secure @midline. Alarms are on/audible. SXN'd small amounts of pale yellow secretions without complications. Alarms assessed and are on/audible. Spare trach/Ambubag at bedside. Will continue to monitor throughout shift.
[2019-04-29] MEDS: OMEPRAZOLE 20 MG CAPSULE.DR GT SCH ×2 (05:57→21:02)
[2019-04-29] MEDS: ALBUTEROL SULFATE 2.5 MG/ 0.5 ML NEBU NEB SCH ×4 (07:18→19:00)
[2019-04-29] MEDS: IPRATROPIUM BROMIDE 0.5 MG/2.5 ML NEBU NEB SCH ×4 (07:18→19:00)
[2019-04-29 08:00] VITALS: BP 119/64
[2019-04-29] MEDS: PHENOBARBITAL 30 MG/7.5 ML LIQUID UDC GT SCH ×2 (08:42→21:02)
[2019-04-29] MEDS: PHENYTOIN 100 MG/4 ML UDC GT SCH ×2 (08:42→21:02)
[2019-04-29] MEDS: CHOLECALCIFEROL 400 UNITS TABLET GT SCH ×2 (08:42→21:04)
[2019-04-29] MEDS: PROTEIN SUPPLEMENT (PROSTAT) 30 ML LIQUID GT SCH ×2 (08:42→21:03)
[2019-04-29] MEDS: CETAPHIL TOP SCH ×2 (08:43→21:04)
[2019-04-29] MEDS: CLOTRIMAZOLE 1% CREAM 30 GM TUBE TP SCH ×2 (08:43→21:00)
[2019-04-29] MEDS: BETAMET DP 0.05% AUGM CR 15 GM CREAM.GM. TP SCH ×2 (08:43→21:00)
[2019-04-29] MEDS: Z GUARD REMEDY PASTE 57 GM TUBE TOP SCH ×2 (08:43→21:04)
[2019-04-29] MEDS: VITAMINS A AND D OINT TP SCH ×3 (08:43→21:04)
[2019-04-29] MEDS: COD LIVER OIL/ZINC OXIDE OINT 113 GM TUBE TP SCH ×2 (08:43→21:04)
[2019-04-29] MEDS: HYDROGEN PEROXIDE 3% 118 ML BOTTLE TOP SCH ×2 (09:52→21:19)
[2019-04-29] MEDS: JEVITY 1.2 1000 ML LIQUID GT PRN (18:13)
[2019-04-29 20:04] VITALS: BP 136/74
--- NOTE | 2019-04-29 21:10 | NUR ---
PT RECEIVED ON CONTINUOUS VENT, TOLERATING CURRENT VENT SETTINGS WELL, NO DISTRESS NOTED AT THIS TIME. TRACH CARE DONE. IN LINE TX GIVEN ORDERED. TRACH TUBE IN PLACE PATENT AND SECURE WITH TRACH TIE. VENT ALARMS AUDIBLE, CHECKED AND RESET. AMBU BAG AND BACK-UP TRACH AT BEDSIDE. WILL CONTINUE TO MONITOR.
[2019-04-30] MEDS: OMEPRAZOLE 20 MG CAPSULE.DR GT SCH ×2 (05:53→21:12)
[2019-04-30] MEDS: ALBUTEROL SULFATE 2.5 MG/ 0.5 ML NEBU NEB SCH ×4 (07:11→20:06)
[2019-04-30] MEDS: IPRATROPIUM BROMIDE 0.5 MG/2.5 ML NEBU NEB SCH ×4 (07:11→20:06)
[2019-04-30 08:01] VITALS: BP 131/91
[2019-04-30] MEDS: HYDROGEN PEROXIDE 3% 118 ML BOTTLE TOP SCH ×2 (08:07→21:00)
[2019-04-30] MEDS: CETAPHIL TOP SCH ×2 (09:37→21:12)
[2019-04-30] MEDS: BETAMET DP 0.05% AUGM CR 15 GM CREAM.GM. TP SCH ×2 (09:37→21:12)
[2019-04-30] MEDS: CLOTRIMAZOLE 1% CREAM 30 GM TUBE TP SCH ×2 (09:37→21:12)
[2019-04-30] MEDS: VITAMINS A AND D OINT TP SCH ×3 (09:37→21:13)
[2019-04-30] MEDS: PROTEIN SUPPLEMENT (PROSTAT) 30 ML LIQUID GT SCH ×2 (09:37→21:12)
[2019-04-30] MEDS: PHENOBARBITAL 30 MG/7.5 ML LIQUID UDC GT SCH ×2 (09:37→21:12)
[2019-04-30] MEDS: PHENYTOIN 100 MG/4 ML UDC GT SCH ×2 (09:37→21:12)
[2019-04-30] MEDS: COD LIVER OIL/ZINC OXIDE OINT 113 GM TUBE TP SCH ×2 (09:37→21:12)
[2019-04-30] MEDS: CHOLECALCIFEROL 400 UNITS TABLET GT SCH ×2 (09:37→21:12)
[2019-04-30] MEDS: Z GUARD REMEDY PASTE 57 GM TUBE TOP SCH ×2 (09:37→21:12)
[2019-04-30] MEDS: JEVITY 1.2 1000 ML LIQUID GT PRN (13:59)
[2019-04-30 20:11] VITALS: BP 135/84
--- NOTE | 2019-05-01 00:37 | NUR ---
Trach resident endorsed on Ht-50 [place] ventilator with ordered vent settings. No signs of SOB noted at this time. Inline treatments administered and tolerated well, no adverse reactions. Airway is patent/secure @midline, RUBBER MILL TENDER used for cuff assessment. Alarms are on/audible. SXN'd small amounts of pale yellow secretions without complications. Alarms assessed and are on/audible. Spare trach/Ambubag at bedside. Will continue to monitor throughout shift.
[2019-05-01] MEDS: OMEPRAZOLE 20 MG CAPSULE.DR GT SCH ×2 (05:48→21:01)
[2019-05-01] MEDS: HYDROGEN PEROXIDE 3% 118 ML BOTTLE TOP SCH ×2 (07:29→21:13)
[2019-05-01] MEDS: IPRATROPIUM BROMIDE 0.5 MG/2.5 ML NEBU NEB SCH ×4 (07:29→19:05)
[2019-05-01] MEDS: ALBUTEROL SULFATE 2.5 MG/ 0.5 ML NEBU NEB SCH ×4 (07:29→19:05)
[2019-05-01 08:00] VITALS: BP 126/74
[2019-05-01] MEDS: COD LIVER OIL/ZINC OXIDE OINT 113 GM TUBE TP SCH ×2 (08:44→21:02)
[2019-05-01] MEDS: PHENOBARBITAL 30 MG/7.5 ML LIQUID UDC GT SCH ×2 (08:44→21:01)
[2019-05-01] MEDS: PROTEIN SUPPLEMENT (PROSTAT) 30 ML LIQUID GT SCH ×2 (08:44→21:02)
[2019-05-01] MEDS: CLOTRIMAZOLE 1% CREAM 30 GM TUBE TP SCH ×2 (08:44→21:02)
[2019-05-01] MEDS: CHOLECALCIFEROL 400 UNITS TABLET GT SCH ×2 (08:44→21:02)
[2019-05-01] MEDS: BETAMET DP 0.05% AUGM CR 15 GM CREAM.GM. TP SCH ×2 (08:44→21:02)
[2019-05-01] MEDS: VITAMINS A AND D OINT TP SCH ×3 (08:44→21:02)
[2019-05-01] MEDS: PHENYTOIN 100 MG/4 ML UDC GT SCH ×2 (08:44→21:01)
[2019-05-01] MEDS: CETAPHIL TOP SCH ×2 (08:44→21:02)
[2019-05-01] MEDS: Z GUARD REMEDY PASTE 57 GM TUBE TOP SCH ×2 (08:44→21:02)
[2019-05-01] MEDS: JEVITY 1.2 1000 ML LIQUID GT PRN (09:22)
[2019-05-01 20:18] VITALS: BP 132/88
[2019-05-02] MEDS: JEVITY 1.2 1000 ML LIQUID GT PRN ×2 (01:33→17:43)
[2019-05-02] MEDS: OMEPRAZOLE 20 MG CAPSULE.DR GT SCH ×2 (05:54→20:14)
[2019-05-02] MEDS: HYDROGEN PEROXIDE 3% 118 ML BOTTLE TOP SCH ×2 (07:25→18:41)
[2019-05-02] MEDS: IPRATROPIUM BROMIDE 0.5 MG/2.5 ML NEBU NEB SCH ×4 (07:25→18:41)
[2019-05-02] MEDS: ALBUTEROL SULFATE 2.5 MG/ 0.5 ML NEBU NEB SCH ×4 (07:25→18:41)
[2019-05-02 08:02] VITALS: BP 127/80
[2019-05-02] MEDS: PHENYTOIN 100 MG/4 ML UDC GT SCH ×2 (09:02→20:14)
[2019-05-02] MEDS: CHOLECALCIFEROL 400 UNITS TABLET GT SCH ×2 (09:03→20:14)
[2019-05-02] MEDS: PROTEIN SUPPLEMENT (PROSTAT) 30 ML LIQUID GT SCH ×2 (09:03→20:14)
[2019-05-02] MEDS: PHENOBARBITAL 30 MG/7.5 ML LIQUID UDC GT SCH ×2 (09:03→20:14)
[2019-05-02] MEDS: COD LIVER OIL/ZINC OXIDE OINT 113 GM TUBE TP SCH ×2 (09:04→20:15)
[2019-05-02] MEDS: CETAPHIL TOP SCH ×2 (09:04→20:14)
[2019-05-02] MEDS: BETAMET DP 0.05% AUGM CR 15 GM CREAM.GM. TP SCH ×2 (09:04→20:15)
[2019-05-02] MEDS: CLOTRIMAZOLE 1% CREAM 30 GM TUBE TP SCH ×2 (09:04→20:15)
[2019-05-02] MEDS: Z GUARD REMEDY PASTE 57 GM TUBE TOP SCH ×2 (09:04→20:14)
[2019-05-02] MEDS: VITAMINS A AND D OINT TP SCH ×3 (09:04→20:15)
[2019-05-02 20:44] VITALS: BP 148/84
[2019-05-03] MEDS: OMEPRAZOLE 20 MG CAPSULE.DR GT SCH ×2 (05:49→21:00)
[2019-05-03] MEDS: IPRATROPIUM BROMIDE 0.5 MG/2.5 ML NEBU NEB SCH ×4 (07:17→19:16)
[2019-05-03] MEDS: ALBUTEROL SULFATE 2.5 MG/ 0.5 ML NEBU NEB SCH ×4 (07:17→19:16)
[2019-05-03 08:04] VITALS: BP 110/78
[2019-05-03] MEDS: BETAMET DP 0.05% AUGM CR 15 GM CREAM.GM. TP SCH ×2 (08:33→21:00)
[2019-05-03] MEDS: PHENOBARBITAL 30 MG/7.5 ML LIQUID UDC GT SCH ×2 (08:33→21:00)
[2019-05-03] MEDS: CETAPHIL TOP SCH ×2 (08:33→21:00)
[2019-05-03] MEDS: CLOTRIMAZOLE 1% CREAM 30 GM TUBE TP SCH ×2 (08:33→21:00)
[2019-05-03] MEDS: PHENYTOIN 100 MG/4 ML UDC GT SCH ×2 (08:33→21:00)
[2019-05-03] MEDS: COD LIVER OIL/ZINC OXIDE OINT 113 GM TUBE TP SCH ×2 (08:33→21:00)
[2019-05-03] MEDS: PROTEIN SUPPLEMENT (PROSTAT) 30 ML LIQUID GT SCH ×2 (08:33→21:00)
[2019-05-03] MEDS: VITAMINS A AND D OINT TP SCH ×3 (08:33→21:00)
[2019-05-03] MEDS: CHOLECALCIFEROL 400 UNITS TABLET GT SCH ×2 (08:33→21:00)
[2019-05-03] MEDS: Z GUARD REMEDY PASTE 57 GM TUBE TOP SCH ×2 (08:33→21:00)
[2019-05-03] MEDS: HYDROGEN PEROXIDE 3% 118 ML BOTTLE TOP SCH ×2 (09:43→20:23)
[2019-05-03] MEDS: JEVITY 1.2 1000 ML LIQUID GT PRN (17:13)
[2019-05-03 19:40] VITALS: BP 138/81
[2019-05-04] MEDS: OMEPRAZOLE 20 MG CAPSULE.DR GT SCH ×2 (05:45→21:08)
[2019-05-04] MEDS: ALBUTEROL SULFATE 2.5 MG/ 0.5 ML NEBU NEB SCH ×4 (07:46→18:59)
[2019-05-04] MEDS: IPRATROPIUM BROMIDE 0.5 MG/2.5 ML NEBU NEB SCH ×4 (07:46→18:59)
[2019-05-04 08:05] VITALS: BP 136/88
[2019-05-04] MEDS: PROTEIN SUPPLEMENT (PROSTAT) 30 ML LIQUID GT SCH ×2 (08:47→21:08)
[2019-05-04] MEDS: VITAMINS A AND D OINT TP SCH ×3 (08:47→21:09)
[2019-05-04] MEDS: COD LIVER OIL/ZINC OXIDE OINT 113 GM TUBE TP SCH ×2 (08:47→21:09)
[2019-05-04] MEDS: CETAPHIL TOP SCH ×2 (08:47→21:08)
[2019-05-04] MEDS: CLOTRIMAZOLE 1% CREAM 30 GM TUBE TP SCH ×2 (08:47→21:09)
[2019-05-04] MEDS: CHOLECALCIFEROL 400 UNITS TABLET GT SCH ×2 (08:47→21:08)
[2019-05-04] MEDS: PHENYTOIN 100 MG/4 ML UDC GT SCH ×2 (08:47→21:08)
[2019-05-04] MEDS: PHENOBARBITAL 30 MG/7.5 ML LIQUID UDC GT SCH ×2 (08:47→21:08)
[2019-05-04] MEDS: Z GUARD REMEDY PASTE 57 GM TUBE TOP SCH ×2 (08:47→21:09)
[2019-05-04] MEDS: BETAMET DP 0.05% AUGM CR 15 GM CREAM.GM. TP SCH ×2 (08:47→21:09)
[2019-05-04] MEDS: HYDROGEN PEROXIDE 3% 118 ML BOTTLE TOP SCH ×2 (09:00→21:05)
--- NOTE | 2019-05-04 14:11 | NUR ---
Pharmacy Update from Today's 05/04/19 IDT meeting VS: Temp 97.8 HR 88 BP 136/88 LABS: (from 03/18/18, no new labs) Wbc 6.4 H/H 16/46.5 Plt 138 Na 141 K 4.8 Cl 106 CO2 30 BUN/SCr 14/0.7 BS 85 Ca 9.1 MEDICATION USE REVIEW: > Pt is not any anti-psych medications > Pt is on Phenobarbital 60mg BID; last level on 03/18/19 was 22.2 (15-39) within therapeutic range. > Pt is on Phenytoin 150mg q12hrs; last level on 03/18/19 was 7.7 (10-20), no need for correction, alb wnl. MD elected to continue same dose as pt has been on current regimen for years without seizures. No seizure activity noted > PRN MED USAGE: (Mar) Tylenol for pain used x 0 Tylenol for temp used x 0 Thorazine for hiccups used x 2 Ativan used x 4 on 0 separate days for retching Compro used x 0 days (15min before getting up in chair) Compro used x 0 for N/V (may use with ativan) Bisacodyl PRN used x 2 NEW ORDERS NOTED: > NA Rx reviewed current regimen and patient was discussed in detail with no medication concerns at this time. Patient continues stable on current regimen, no further recs at this time per rx. Will continue follow
--- NOTE | 2019-05-04 14:31 | NUR ---
INTERDISCIPLINARY PLAN OF CARE CONFERENCE was held today. Patient's parents are unable to attend the meeting, however visit every weekend. Dr. Hammond and the Interdisciplinary Team reviewed the current plan of care in detail. RN reported on patient's current medical condition. No major changes were reported in patient's condition. See RN IDT conference notes. See also all other disciplines IDT notes and physician's progress notes for additional details.
[2019-05-04] MEDS: JEVITY 1.2 1000 ML LIQUID GT PRN (14:50)
[2019-05-04 19:45] VITALS: BP 135/84
[2019-05-05] MEDS: OMEPRAZOLE 20 MG CAPSULE.DR GT SCH ×2 (06:30→21:18)
[2019-05-05] MEDS: JEVITY 1.2 1000 ML LIQUID GT PRN (07:00)
--- NOTE | 2019-05-05 07:00 | NUR ---
darion marroquin n.p. was in, no new orders.
[2019-05-05 08:13] VITALS: BP 141/85
[2019-05-05] MEDS: ALBUTEROL SULFATE 2.5 MG/ 0.5 ML NEBU NEB SCH ×4 (08:18→18:39)
[2019-05-05] MEDS: HYDROGEN PEROXIDE 3% 118 ML BOTTLE TOP SCH ×2 (08:18→18:39)
[2019-05-05] MEDS: IPRATROPIUM BROMIDE 0.5 MG/2.5 ML NEBU NEB SCH ×4 (08:18→18:39)
[2019-05-05] MEDS: PHENOBARBITAL 30 MG/7.5 ML LIQUID UDC GT SCH ×2 (09:51→21:18)
[2019-05-05] MEDS: PROTEIN SUPPLEMENT (PROSTAT) 30 ML LIQUID GT SCH ×2 (09:53→21:18)
[2019-05-05] MEDS: PHENYTOIN 100 MG/4 ML UDC GT SCH ×2 (09:53→21:18)
[2019-05-05] MEDS: CHOLECALCIFEROL 400 UNITS TABLET GT SCH ×2 (09:54→21:19)
[2019-05-05] MEDS: CLOTRIMAZOLE 1% CREAM 30 GM TUBE TP SCH ×2 (09:54→21:20)
[2019-05-05] MEDS: BETAMET DP 0.05% AUGM CR 15 GM CREAM.GM. TP SCH ×2 (09:54→21:20)
[2019-05-05] MEDS: Z GUARD REMEDY PASTE 57 GM TUBE TOP SCH ×2 (09:54→21:19)
[2019-05-05] MEDS: COD LIVER OIL/ZINC OXIDE OINT 113 GM TUBE TP SCH ×2 (09:54→21:20)
[2019-05-05] MEDS: CETAPHIL TOP SCH ×2 (09:54→21:19)
[2019-05-05] MEDS: VITAMINS A AND D OINT TP SCH ×3 (09:55→21:20)
[2019-05-05 19:42] VITALS: BP 133/83
[2019-05-06] MEDS: JEVITY 1.2 1000 ML LIQUID GT PRN ×2 (02:00→18:42)
[2019-05-06] MEDS: OMEPRAZOLE 20 MG CAPSULE.DR GT SCH ×2 (05:55→21:39)
[2019-05-06 08:07] VITALS: BP 133/91
[2019-05-06] MEDS: ALBUTEROL SULFATE 2.5 MG/ 0.5 ML NEBU NEB SCH ×4 (08:19→18:57)
[2019-05-06] MEDS: IPRATROPIUM BROMIDE 0.5 MG/2.5 ML NEBU NEB SCH ×4 (08:19→18:57)
[2019-05-06] MEDS: PHENYTOIN 100 MG/4 ML UDC GT SCH ×2 (08:27→21:36)
[2019-05-06] MEDS: CHOLECALCIFEROL 400 UNITS TABLET GT SCH ×2 (08:31→21:41)
[2019-05-06] MEDS: PROTEIN SUPPLEMENT (PROSTAT) 30 ML LIQUID GT SCH ×2 (08:31→21:39)
[2019-05-06] MEDS: PHENOBARBITAL 30 MG/7.5 ML LIQUID UDC GT SCH ×2 (08:31→21:39)
[2019-05-06] MEDS: CETAPHIL TOP SCH ×2 (09:00→21:41)
[2019-05-06] MEDS: VITAMINS A AND D OINT TP SCH ×3 (09:00→21:42)
[2019-05-06] MEDS: COD LIVER OIL/ZINC OXIDE OINT 113 GM TUBE TP SCH (09:00)
[2019-05-06] MEDS: BETAMET DP 0.05% AUGM CR 15 GM CREAM.GM. TP SCH ×2 (09:00→21:42)
[2019-05-06] MEDS: Z GUARD REMEDY PASTE 57 GM TUBE TOP SCH ×2 (09:00→21:41)
[2019-05-06] MEDS: CLOTRIMAZOLE 1% CREAM 30 GM TUBE TP SCH ×2 (09:00→21:42)
[2019-05-06] MEDS: HYDROGEN PEROXIDE 3% 118 ML BOTTLE TOP SCH ×2 (09:46→21:02)
--- NOTE | 2019-05-06 18:58 | NUR ---
Received pt on HT-50 ventilator with the following settings of AC-14, Vt-700, FIO2-35%, trached with Shiley#8 XLT Distal trach, which is in the place and secure. No respiratory distress noted. Airway care done, pt responded to physical stimuli. In-line HHN tx with 2.5mg Albuterol+0.5mg Atrovent given, no adverse reaction noted. HME changed. Resus. bag at bedside. Vent and alarms checked and reset.
[2019-05-06 20:47] VITALS: BP 130/86
[2019-05-07] MEDS: OMEPRAZOLE 20 MG CAPSULE.DR GT SCH ×2 (06:00→20:45)
[2019-05-07] MEDS: IPRATROPIUM BROMIDE 0.5 MG/2.5 ML NEBU NEB SCH ×4 (07:32→19:18)
[2019-05-07] MEDS: ALBUTEROL SULFATE 2.5 MG/ 0.5 ML NEBU NEB SCH ×4 (07:32→19:18)
[2019-05-07 08:00] VITALS: BP 135/86
[2019-05-07] MEDS: PHENOBARBITAL 30 MG/7.5 ML LIQUID UDC GT SCH ×2 (08:31→20:45)
[2019-05-07] MEDS: CHOLECALCIFEROL 400 UNITS TABLET GT SCH ×2 (08:31→20:45)
[2019-05-07] MEDS: PROTEIN SUPPLEMENT (PROSTAT) 30 ML LIQUID GT SCH ×2 (08:31→20:45)
[2019-05-07] MEDS: PHENYTOIN 100 MG/4 ML UDC GT SCH ×2 (08:31→20:45)
[2019-05-07] MEDS: CETAPHIL TOP SCH ×2 (08:32→20:45)
[2019-05-07] MEDS: Z GUARD REMEDY PASTE 57 GM TUBE TOP SCH ×2 (08:32→20:45)
[2019-05-07] MEDS: BETAMET DP 0.05% AUGM CR 15 GM CREAM.GM. TP SCH ×2 (08:32→20:45)
[2019-05-07] MEDS: CLOTRIMAZOLE 1% CREAM 30 GM TUBE TP SCH ×2 (08:33→20:45)
[2019-05-07] MEDS: VITAMINS A AND D OINT TP SCH ×3 (08:33→20:45)
[2019-05-07] MEDS: HYDROGEN PEROXIDE 3% 118 ML BOTTLE TOP SCH ×2 (09:54→21:30)
[2019-05-07] MEDS: JEVITY 1.2 1000 ML LIQUID GT PRN (17:52)
[2019-05-07 20:41] VITALS: BP 137/88
[2019-05-08] MEDS: OMEPRAZOLE 20 MG CAPSULE.DR GT SCH ×2 (05:36→20:58)
[2019-05-08] MEDS: ALBUTEROL SULFATE 2.5 MG/ 0.5 ML NEBU NEB SCH ×4 (07:56→19:10)
[2019-05-08] MEDS: IPRATROPIUM BROMIDE 0.5 MG/2.5 ML NEBU NEB SCH ×4 (07:56→19:10)
[2019-05-08] MEDS: PHENYTOIN 100 MG/4 ML UDC GT SCH ×2 (08:27→20:57)
[2019-05-08] MEDS: PHENOBARBITAL 30 MG/7.5 ML LIQUID UDC GT SCH ×2 (08:27→20:58)
[2019-05-08] MEDS: PROTEIN SUPPLEMENT (PROSTAT) 30 ML LIQUID GT SCH ×2 (08:27→20:58)
[2019-05-08] MEDS: CHOLECALCIFEROL 400 UNITS TABLET GT SCH ×2 (08:27→20:58)
[2019-05-08] MEDS: CETAPHIL TOP SCH ×2 (08:28→20:58)
[2019-05-08] MEDS: BETAMET DP 0.05% AUGM CR 15 GM CREAM.GM. TP SCH ×2 (08:29→20:58)
[2019-05-08] MEDS: VITAMINS A AND D OINT TP SCH ×3 (08:29→20:58)
[2019-05-08] MEDS: CLOTRIMAZOLE 1% CREAM 30 GM TUBE TP SCH ×2 (08:29→20:58)
[2019-05-08] MEDS: Z GUARD REMEDY PASTE 57 GM TUBE TOP SCH ×2 (08:29→20:58)
[2019-05-08] MEDS: HYDROGEN PEROXIDE 3% 118 ML BOTTLE TOP SCH ×2 (09:00→20:56)
[2019-05-08 11:30] VITALS: BP 136/87
[2019-05-08] MEDS: JEVITY 1.2 1000 ML LIQUID GT PRN (12:49)
[2019-05-08 20:48] VITALS: BP 134/82
[2019-05-09] MEDS: OMEPRAZOLE 20 MG CAPSULE.DR GT SCH ×2 (05:38→21:03)
[2019-05-09] MEDS: BISACODYL 10 MG SUPP.RECT RC PRN (06:20)
[2019-05-09] MEDS: IPRATROPIUM BROMIDE 0.5 MG/2.5 ML NEBU NEB SCH ×4 (07:55→19:10)
[2019-05-09] MEDS: ALBUTEROL SULFATE 2.5 MG/ 0.5 ML NEBU NEB SCH ×4 (07:55→19:10)
[2019-05-09 08:00] VITALS: BP 135/77
[2019-05-09] MEDS: HYDROGEN PEROXIDE 3% 118 ML BOTTLE TOP SCH ×2 (09:00→21:39)
[2019-05-09] MEDS: PHENYTOIN 100 MG/4 ML UDC GT SCH ×2 (09:00→21:03)
[2019-05-09] MEDS: PHENOBARBITAL 30 MG/7.5 ML LIQUID UDC GT SCH ×2 (09:01→21:03)
[2019-05-09] MEDS: CHOLECALCIFEROL 400 UNITS TABLET GT SCH ×2 (09:02→21:03)
[2019-05-09] MEDS: Z GUARD REMEDY PASTE 57 GM TUBE TOP SCH ×2 (09:02→21:03)
[2019-05-09] MEDS: CETAPHIL TOP SCH ×2 (09:02→21:03)
[2019-05-09] MEDS: PROTEIN SUPPLEMENT (PROSTAT) 30 ML LIQUID GT SCH ×2 (09:02→21:03)
[2019-05-09] MEDS: BETAMET DP 0.05% AUGM CR 15 GM CREAM.GM. TP SCH ×2 (09:03→21:03)
[2019-05-09] MEDS: VITAMINS A AND D OINT TP SCH ×3 (09:03→21:03)
[2019-05-09] MEDS: CLOTRIMAZOLE 1% CREAM 30 GM TUBE TP SCH ×2 (09:03→21:03)
--- NOTE | 2019-05-09 12:00 | NUR ---
SEEN BY ELICEO CHAIDEZ.
[2019-05-09] MEDS: JEVITY 1.2 1000 ML LIQUID GT PRN (14:21)
[2019-05-09 20:32] VITALS: BP 129/72
[2019-05-10] MEDS: JEVITY 1.2 1000 ML LIQUID GT PRN (03:23)
[2019-05-10] MEDS: OMEPRAZOLE 20 MG CAPSULE.DR GT SCH ×2 (05:50→20:24)
[2019-05-10] MEDS: ALBUTEROL SULFATE 2.5 MG/ 0.5 ML NEBU NEB SCH ×4 (07:55→18:57)
[2019-05-10] MEDS: IPRATROPIUM BROMIDE 0.5 MG/2.5 ML NEBU NEB SCH ×4 (07:55→18:57)
[2019-05-10 08:00] VITALS: BP 129/81
[2019-05-10] MEDS: PHENYTOIN 100 MG/4 ML UDC GT SCH ×2 (08:15→20:24)
[2019-05-10] MEDS: PHENOBARBITAL 30 MG/7.5 ML LIQUID UDC GT SCH ×2 (08:15→20:24)
[2019-05-10] MEDS: VITAMINS A AND D OINT TP SCH ×3 (08:16→20:25)
[2019-05-10] MEDS: CHOLECALCIFEROL 400 UNITS TABLET GT SCH ×2 (08:16→20:24)
[2019-05-10] MEDS: PROTEIN SUPPLEMENT (PROSTAT) 30 ML LIQUID GT SCH ×2 (08:16→20:24)
[2019-05-10] MEDS: Z GUARD REMEDY PASTE 57 GM TUBE TOP SCH ×2 (08:16→20:24)
[2019-05-10] MEDS: CLOTRIMAZOLE 1% CREAM 30 GM TUBE TP SCH ×2 (08:16→20:25)
[2019-05-10] MEDS: BETAMET DP 0.05% AUGM CR 15 GM CREAM.GM. TP SCH ×2 (08:16→20:24)
[2019-05-10] MEDS: CETAPHIL TOP SCH ×2 (08:16→20:24)
[2019-05-10] MEDS: HYDROGEN PEROXIDE 3% 118 ML BOTTLE TOP SCH ×2 (09:51→20:24)
--- NOTE | 2019-05-10 18:58 | NUR ---
Received pt on HT-50 ventilator with the following settings of AC-14, Vt-700, FIO2-35%, trached with Shiley#8 XLT Distal trach, which is in the place and secure. No distress noted. Airway care done, pt responded to physical stimuli. In-line HHN tx with 2.5mg Albuterol+0.5mg Atrovent given, no adverse reaction noted. HME changed. Resus. bag at bedside. Vent and alarms checked and reset.
[2019-05-10 20:21] VITALS: BP 112/81
[2019-05-11] MEDS: JEVITY 1.2 1000 ML LIQUID GT PRN ×2 (02:23→18:03)
[2019-05-11] MEDS: OMEPRAZOLE 20 MG CAPSULE.DR GT SCH ×2 (05:35→21:58)
[2019-05-11] MEDS: ALBUTEROL SULFATE 2.5 MG/ 0.5 ML NEBU NEB SCH ×4 (07:13→19:10)
[2019-05-11] MEDS: IPRATROPIUM BROMIDE 0.5 MG/2.5 ML NEBU NEB SCH ×4 (07:13→19:10)
[2019-05-11 08:00] VITALS: BP 138/85
[2019-05-11] MEDS: HYDROGEN PEROXIDE 3% 118 ML BOTTLE TOP SCH ×2 (09:00→21:06)
[2019-05-11] MEDS: BETAMET DP 0.05% AUGM CR 15 GM CREAM.GM. TP SCH ×2 (09:08→21:00)
[2019-05-11] MEDS: CLOTRIMAZOLE 1% CREAM 30 GM TUBE TP SCH ×2 (09:08→21:00)
[2019-05-11] MEDS: PHENYTOIN 100 MG/4 ML UDC GT SCH ×2 (09:08→21:57)
[2019-05-11] MEDS: PROTEIN SUPPLEMENT (PROSTAT) 30 ML LIQUID GT SCH ×2 (09:08→21:58)
[2019-05-11] MEDS: VITAMINS A AND D OINT TP SCH ×3 (09:08→21:00)
[2019-05-11] MEDS: Z GUARD REMEDY PASTE 57 GM TUBE TOP SCH ×2 (09:08→21:58)
[2019-05-11] MEDS: CHOLECALCIFEROL 400 UNITS TABLET GT SCH ×2 (09:08→21:58)
[2019-05-11] MEDS: PHENOBARBITAL 30 MG/7.5 ML LIQUID UDC GT SCH ×2 (09:08→21:58)
[2019-05-11] MEDS: CETAPHIL TOP SCH ×2 (09:08→21:58)
[2019-05-11 20:00] VITALS: BP 132/80
[2019-05-12] MEDS: OMEPRAZOLE 20 MG CAPSULE.DR GT SCH ×2 (06:17→21:54)
[2019-05-12] MEDS: IPRATROPIUM BROMIDE 0.5 MG/2.5 ML NEBU NEB SCH ×4 (07:18→19:20)
[2019-05-12] MEDS: ALBUTEROL SULFATE 2.5 MG/ 0.5 ML NEBU NEB SCH ×4 (07:18→19:20)
[2019-05-12] MEDS: PHENYTOIN 100 MG/4 ML UDC GT SCH ×2 (09:01→21:53)
[2019-05-12] MEDS: CHOLECALCIFEROL 400 UNITS TABLET GT SCH ×2 (09:01→21:55)
[2019-05-12] MEDS: PHENOBARBITAL 30 MG/7.5 ML LIQUID UDC GT SCH ×2 (09:01→21:54)
[2019-05-12] MEDS: PROTEIN SUPPLEMENT (PROSTAT) 30 ML LIQUID GT SCH ×2 (09:01→21:55)
[2019-05-12] MEDS: CLOTRIMAZOLE 1% CREAM 30 GM TUBE TP SCH ×2 (09:02→21:56)
[2019-05-12] MEDS: BETAMET DP 0.05% AUGM CR 15 GM CREAM.GM. TP SCH ×2 (09:02→21:56)
[2019-05-12] MEDS: Z GUARD REMEDY PASTE 57 GM TUBE TOP SCH ×2 (09:02→21:56)
[2019-05-12] MEDS: VITAMINS A AND D OINT TP SCH ×3 (09:02→21:56)
[2019-05-12] MEDS: CETAPHIL TOP SCH ×2 (09:02→21:56)
[2019-05-12 09:48] VITALS: BP 128/88
[2019-05-12] MEDS: HYDROGEN PEROXIDE 3% 118 ML BOTTLE TOP SCH ×2 (09:52→21:00)
[2019-05-12] MEDS: JEVITY 1.2 1000 ML LIQUID GT PRN (14:37)
[2019-05-12] MEDS: BISACODYL 10 MG SUPP.RECT RC PRN (18:18)
[2019-05-12 20:00] VITALS: BP 110/74
[2019-05-13] MEDS: OMEPRAZOLE 20 MG CAPSULE.DR GT SCH ×2 (05:55→21:53)
[2019-05-13] MEDS: HYDROGEN PEROXIDE 3% 118 ML BOTTLE TOP SCH ×2 (07:03→21:02)
[2019-05-13] MEDS: ALBUTEROL SULFATE 2.5 MG/ 0.5 ML NEBU NEB SCH ×4 (07:03→18:59)
[2019-05-13] MEDS: IPRATROPIUM BROMIDE 0.5 MG/2.5 ML NEBU NEB SCH ×4 (07:03→18:59)
[2019-05-13 08:00] VITALS: BP 136/78
[2019-05-13] MEDS: PHENYTOIN 100 MG/4 ML UDC GT SCH ×2 (09:32→21:53)
[2019-05-13] MEDS: PHENOBARBITAL 30 MG/7.5 ML LIQUID UDC GT SCH ×2 (09:36→21:53)
[2019-05-13] MEDS: CHOLECALCIFEROL 400 UNITS TABLET GT SCH ×2 (09:36→21:54)
[2019-05-13] MEDS: PROTEIN SUPPLEMENT (PROSTAT) 30 ML LIQUID GT SCH ×2 (09:36→21:54)
[2019-05-13] MEDS: CLOTRIMAZOLE 1% CREAM 30 GM TUBE TP SCH ×2 (09:37→21:55)
[2019-05-13] MEDS: VITAMINS A AND D OINT TP SCH ×3 (09:37→21:55)
[2019-05-13] MEDS: BETAMET DP 0.05% AUGM CR 15 GM CREAM.GM. TP SCH ×2 (09:37→21:55)
[2019-05-13] MEDS: Z GUARD REMEDY PASTE 57 GM TUBE TOP SCH ×2 (09:37→21:54)
[2019-05-13] MEDS: CETAPHIL TOP SCH ×2 (09:37→21:54)
--- NOTE | 2019-05-13 19:00 | NUR ---
PT RECEIVED ON CONTINUOUS VENT, IN LINE TX GIVEN ORDERED. TRACH TUBE IN PLACE PATENT AND SECURE WITH TRACH TIE. TRACH CARE DONE. VENT ALARMS AUDIBLE, CHECKED AND RESET. AMBU BAG AND BACK-UP TRACH AT BEDSIDE. WILL CONTINUE TO MONITOR.
[2019-05-13 20:00] VITALS: BP 121/77
[2019-05-14] MEDS: OMEPRAZOLE 20 MG CAPSULE.DR GT SCH ×2 (05:32→20:30)
[2019-05-14] MEDS: ALBUTEROL SULFATE 2.5 MG/ 0.5 ML NEBU NEB SCH ×4 (07:16→20:27)
[2019-05-14] MEDS: IPRATROPIUM BROMIDE 0.5 MG/2.5 ML NEBU NEB SCH ×4 (07:16→20:27)
[2019-05-14 08:02] VITALS: BP 123/79
[2019-05-14] MEDS: HYDROGEN PEROXIDE 3% 118 ML BOTTLE TOP SCH ×2 (08:45→21:25)
[2019-05-14] MEDS: PHENOBARBITAL 30 MG/7.5 ML LIQUID UDC GT SCH ×2 (08:47→20:30)
[2019-05-14] MEDS: PHENYTOIN 100 MG/4 ML UDC GT SCH ×2 (08:47→20:30)
[2019-05-14] MEDS: CHOLECALCIFEROL 400 UNITS TABLET GT SCH ×2 (08:47→20:30)
[2019-05-14] MEDS: CETAPHIL TOP SCH ×2 (08:47→20:31)
[2019-05-14] MEDS: Z GUARD REMEDY PASTE 57 GM TUBE TOP SCH ×2 (08:47→20:31)
[2019-05-14] MEDS: BETAMET DP 0.05% AUGM CR 15 GM CREAM.GM. TP SCH ×2 (08:47→20:31)
[2019-05-14] MEDS: PROTEIN SUPPLEMENT (PROSTAT) 30 ML LIQUID GT SCH ×2 (08:47→20:30)
[2019-05-14] MEDS: VITAMINS A AND D OINT TP SCH ×3 (08:48→20:31)
[2019-05-14] MEDS: CLOTRIMAZOLE 1% CREAM 30 GM TUBE TP SCH ×2 (08:48→20:31)
[2019-05-14 20:01] VITALS: BP 136/79
[2019-05-15] MEDS: OMEPRAZOLE 20 MG CAPSULE.DR GT SCH ×2 (05:37→21:34)
[2019-05-15 08:02] VITALS: BP 137/78
[2019-05-15] MEDS: IPRATROPIUM BROMIDE 0.5 MG/2.5 ML NEBU NEB SCH ×4 (08:11→18:50)
[2019-05-15] MEDS: ALBUTEROL SULFATE 2.5 MG/ 0.5 ML NEBU NEB SCH ×4 (08:11→18:50)
[2019-05-15] MEDS: CHOLECALCIFEROL 400 UNITS TABLET GT SCH ×2 (08:16→21:35)
[2019-05-15] MEDS: PHENYTOIN 100 MG/4 ML UDC GT SCH ×2 (08:16→21:34)
[2019-05-15] MEDS: PHENOBARBITAL 30 MG/7.5 ML LIQUID UDC GT SCH ×2 (08:16→21:34)
[2019-05-15] MEDS: PROTEIN SUPPLEMENT (PROSTAT) 30 ML LIQUID GT SCH ×2 (08:16→21:35)
[2019-05-15] MEDS: CETAPHIL TOP SCH ×2 (08:16→21:35)
[2019-05-15] MEDS: Z GUARD REMEDY PASTE 57 GM TUBE TOP SCH ×2 (08:16→21:35)
[2019-05-15] MEDS: CLOTRIMAZOLE 1% CREAM 30 GM TUBE TP SCH ×2 (08:17→21:35)
[2019-05-15] MEDS: VITAMINS A AND D OINT TP SCH ×3 (08:17→21:35)
[2019-05-15] MEDS: BETAMET DP 0.05% AUGM CR 15 GM CREAM.GM. TP SCH ×2 (08:17→21:35)
[2019-05-15] MEDS: HYDROGEN PEROXIDE 3% 118 ML BOTTLE TOP SCH ×2 (09:44→18:50)
[2019-05-15] MEDS: JEVITY 1.2 1000 ML LIQUID GT PRN (13:50)
[2019-05-15 20:37] VITALS: BP 143/85
[2019-05-15] MEDS: MIRALAX 17 GM POWD.PACK GT SCH (21:34)
[2019-05-16] MEDS: OMEPRAZOLE 20 MG CAPSULE.DR GT SCH ×2 (05:30→21:14)
[2019-05-16] MEDS: BISACODYL 10 MG SUPP.RECT RC PRN (06:13)
[2019-05-16 08:02] VITALS: BP 133/79
[2019-05-16] MEDS: IPRATROPIUM BROMIDE 0.5 MG/2.5 ML NEBU NEB SCH ×4 (08:25→18:40)
[2019-05-16] MEDS: ALBUTEROL SULFATE 2.5 MG/ 0.5 ML NEBU NEB SCH ×4 (08:25→18:40)
[2019-05-16] MEDS: VITAMINS A AND D OINT TP SCH ×3 (08:57→21:14)
[2019-05-16] MEDS: PHENYTOIN 100 MG/4 ML UDC GT SCH ×2 (08:57→21:14)
[2019-05-16] MEDS: CETAPHIL TOP SCH ×2 (08:57→21:14)
[2019-05-16] MEDS: PROTEIN SUPPLEMENT (PROSTAT) 30 ML LIQUID GT SCH ×2 (08:57→21:14)
[2019-05-16] MEDS: CHOLECALCIFEROL 400 UNITS TABLET GT SCH ×2 (08:57→21:14)
[2019-05-16] MEDS: PHENOBARBITAL 30 MG/7.5 ML LIQUID UDC GT SCH ×2 (08:57→21:14)
[2019-05-16] MEDS: BETAMET DP 0.05% AUGM CR 15 GM CREAM.GM. TP SCH ×2 (08:57→21:14)
[2019-05-16] MEDS: Z GUARD REMEDY PASTE 57 GM TUBE TOP SCH ×2 (08:57→21:14)
[2019-05-16] MEDS: CLOTRIMAZOLE 1% CREAM 30 GM TUBE TP SCH ×2 (08:57→21:14)
[2019-05-16] MEDS: HYDROGEN PEROXIDE 3% 118 ML BOTTLE TOP SCH ×2 (09:16→21:09)
[2019-05-16] MEDS: JEVITY 1.2 1000 ML LIQUID GT PRN (17:28)
--- NOTE | 2019-05-16 18:41 | NUR ---
Received pt on HT-50 ventilator with the following settings of AC-14, Vt-700, FIO2-35%, trached with Shiley#8 XLT Distal trach, which is in the place and secure. No SOB noted. Airway care done, pt responded to physical stimuli. In-line HHN tx with 2.5mg Albuterol+0.5mg Atrovent given, no adverse reaction noted. HME changed. Resus. bag at bedside. Vent and alarms checked and reset.
[2019-05-16 20:40] VITALS: BP 140/95
[2019-05-16] MEDS: MIRALAX 17 GM POWD.PACK GT SCH (21:14)
[2019-05-17] MEDS: OMEPRAZOLE 20 MG CAPSULE.DR GT SCH ×2 (05:32→21:18)
[2019-05-17] MEDS: IPRATROPIUM BROMIDE 0.5 MG/2.5 ML NEBU NEB SCH ×4 (07:14→19:15)
[2019-05-17] MEDS: ALBUTEROL SULFATE 2.5 MG/ 0.5 ML NEBU NEB SCH ×4 (07:15→19:15)
[2019-05-17 08:00] VITALS: BP 140/91
[2019-05-17] MEDS: Z GUARD REMEDY PASTE 57 GM TUBE TOP SCH ×2 (08:29→21:18)
[2019-05-17] MEDS: PHENOBARBITAL 30 MG/7.5 ML LIQUID UDC GT SCH ×2 (08:29→21:18)
[2019-05-17] MEDS: CETAPHIL TOP SCH ×2 (08:29→21:18)
[2019-05-17] MEDS: PHENYTOIN 100 MG/4 ML UDC GT SCH ×2 (08:29→21:18)
[2019-05-17] MEDS: PROTEIN SUPPLEMENT (PROSTAT) 30 ML LIQUID GT SCH ×2 (08:29→21:18)
[2019-05-17] MEDS: CHOLECALCIFEROL 400 UNITS TABLET GT SCH ×2 (08:29→21:18)
[2019-05-17] MEDS: VITAMINS A AND D OINT TP SCH ×3 (08:30→21:18)
[2019-05-17] MEDS: CLOTRIMAZOLE 1% CREAM 30 GM TUBE TP SCH ×2 (08:30→21:18)
[2019-05-17] MEDS: BETAMET DP 0.05% AUGM CR 15 GM CREAM.GM. TP SCH ×2 (08:30→21:18)
[2019-05-17] MEDS: HYDROGEN PEROXIDE 3% 118 ML BOTTLE TOP SCH ×2 (09:55→21:51)
[2019-05-17 20:32] VITALS: BP 122/74
[2019-05-17] MEDS: MIRALAX 17 GM POWD.PACK GT SCH (21:18)
[2019-05-18] MEDS: JEVITY 1.2 1000 ML LIQUID GT PRN (03:30)
[2019-05-18] MEDS: OMEPRAZOLE 20 MG CAPSULE.DR GT SCH ×2 (05:56→20:52)
[2019-05-18] MEDS: IPRATROPIUM BROMIDE 0.5 MG/2.5 ML NEBU NEB SCH ×4 (07:11→19:18)
[2019-05-18] MEDS: ALBUTEROL SULFATE 2.5 MG/ 0.5 ML NEBU NEB SCH ×4 (07:11→19:18)
[2019-05-18 08:00] VITALS: BP 112/74
[2019-05-18] MEDS: PROTEIN SUPPLEMENT (PROSTAT) 30 ML LIQUID GT SCH ×2 (08:23→21:51)
[2019-05-18] MEDS: CETAPHIL TOP SCH ×2 (08:23→20:53)
[2019-05-18] MEDS: CHOLECALCIFEROL 400 UNITS TABLET GT SCH ×2 (08:23→20:52)
[2019-05-18] MEDS: PHENOBARBITAL 30 MG/7.5 ML LIQUID UDC GT SCH ×2 (08:23→20:52)
[2019-05-18] MEDS: CLOTRIMAZOLE 1% CREAM 30 GM TUBE TP SCH ×2 (08:23→20:53)
[2019-05-18] MEDS: VITAMINS A AND D OINT TP SCH ×3 (08:23→20:53)
[2019-05-18] MEDS: BETAMET DP 0.05% AUGM CR 15 GM CREAM.GM. TP SCH ×2 (08:23→20:53)
[2019-05-18] MEDS: PHENYTOIN 100 MG/4 ML UDC GT SCH ×2 (08:23→20:52)
[2019-05-18] MEDS: Z GUARD REMEDY PASTE 57 GM TUBE TOP SCH ×2 (08:24→20:53)
[2019-05-18] MEDS: HYDROGEN PEROXIDE 3% 118 ML BOTTLE TOP SCH ×2 (09:10→21:15)
[2019-05-18] MEDS: MIRALAX 17 GM POWD.PACK GT SCH (20:52)
[2019-05-18 21:09] VITALS: BP 140/78
[2019-05-19] MEDS: JEVITY 1.2 1000 ML LIQUID GT PRN (03:32)
[2019-05-19] MEDS: OMEPRAZOLE 20 MG CAPSULE.DR GT SCH ×2 (05:43→20:13)
[2019-05-19] MEDS: IPRATROPIUM BROMIDE 0.5 MG/2.5 ML NEBU NEB SCH ×4 (07:02→19:12)
[2019-05-19] MEDS: ALBUTEROL SULFATE 2.5 MG/ 0.5 ML NEBU NEB SCH ×4 (07:02→19:12)
[2019-05-19 08:00] VITALS: BP 144/81
[2019-05-19] MEDS: PHENYTOIN 100 MG/4 ML UDC GT SCH ×2 (08:49→20:13)
[2019-05-19] MEDS: PHENOBARBITAL 30 MG/7.5 ML LIQUID UDC GT SCH ×2 (08:52→20:13)
[2019-05-19] MEDS: PROTEIN SUPPLEMENT (PROSTAT) 30 ML LIQUID GT SCH ×2 (08:53→20:13)
[2019-05-19] MEDS: CHOLECALCIFEROL 400 UNITS TABLET GT SCH ×2 (08:53→20:13)
[2019-05-19] MEDS: BETAMET DP 0.05% AUGM CR 15 GM CREAM.GM. TP SCH ×2 (09:00→20:13)
[2019-05-19] MEDS: VITAMINS A AND D OINT TP SCH ×3 (09:00→20:13)
[2019-05-19] MEDS: CETAPHIL TOP SCH ×2 (09:00→20:13)
[2019-05-19] MEDS: Z GUARD REMEDY PASTE 57 GM TUBE TOP SCH ×2 (09:00→20:13)
[2019-05-19] MEDS: CLOTRIMAZOLE 1% CREAM 30 GM TUBE TP SCH ×2 (09:00→20:13)
[2019-05-19] MEDS: HYDROGEN PEROXIDE 3% 118 ML BOTTLE TOP SCH ×2 (09:00→21:09)
[2019-05-19 20:00] VITALS: BP 125/85
[2019-05-19] MEDS: MIRALAX 17 GM POWD.PACK GT SCH (20:13)
[2019-05-20] MEDS: OMEPRAZOLE 20 MG CAPSULE.DR GT SCH ×2 (05:36→21:15)
[2019-05-20] MEDS: IPRATROPIUM BROMIDE 0.5 MG/2.5 ML NEBU NEB SCH ×3 (08:00→19:37)
[2019-05-20] MEDS: ALBUTEROL SULFATE 2.5 MG/ 0.5 ML NEBU NEB SCH ×3 (08:00→19:37)
[2019-05-20 08:05] VITALS: BP 130/80
[2019-05-20] MEDS: PHENYTOIN 100 MG/4 ML UDC GT SCH ×2 (08:52→21:15)
[2019-05-20] MEDS: PHENOBARBITAL 30 MG/7.5 ML LIQUID UDC GT SCH ×2 (08:53→21:15)
[2019-05-20] MEDS: Z GUARD REMEDY PASTE 57 GM TUBE TOP SCH ×2 (08:54→21:15)
[2019-05-20] MEDS: PROTEIN SUPPLEMENT (PROSTAT) 30 ML LIQUID GT SCH ×2 (08:54→21:15)
[2019-05-20] MEDS: CHOLECALCIFEROL 400 UNITS TABLET GT SCH ×2 (08:54→21:15)
[2019-05-20] MEDS: CETAPHIL TOP SCH ×2 (09:00→21:15)
[2019-05-20] MEDS: HYDROGEN PEROXIDE 3% 118 ML BOTTLE TOP SCH ×2 (09:00→20:25)
[2019-05-20] MEDS: CLOTRIMAZOLE 1% CREAM 30 GM TUBE TP SCH ×2 (09:00→21:15)
[2019-05-20] MEDS: BETAMET DP 0.05% AUGM CR 15 GM CREAM.GM. TP SCH ×2 (09:00→21:15)
[2019-05-20] MEDS: VITAMINS A AND D OINT TP SCH ×3 (09:00→21:15)
--- NOTE | 2019-05-20 19:06 | NUR ---
SEEN BY DR. MORE AND WITH NNO.
[2019-05-20 20:00] VITALS: BP 135/77
--- NOTE | 2019-05-20 20:27 | NUR ---
Resident endorsed on Ht-50 [place] ventilator with ordered vent settings. No signs of SOB noted at this time. Inline treatments administered and tolerated well, no adverse reactions. Airway is patent/secure @midline, AUTOMATIC STEEL TIE ADJUSTER used for cuff assessment. Alarms are on/audible. SXN'd small amounts of pale yellow secretions without complications. Alarms assessed and are on/audible. Spare trach/Ambubag at bedside. Will continue to monitor.
[2019-05-20] MEDS: MIRALAX 17 GM POWD.PACK GT SCH (21:15)
[2019-05-21] MEDS: JEVITY 1.2 1000 ML LIQUID GT PRN (03:28)
[2019-05-21] MEDS: OMEPRAZOLE 20 MG CAPSULE.DR GT SCH ×2 (05:32→21:15)
[2019-05-21] MEDS: ALBUTEROL SULFATE 2.5 MG/ 0.5 ML NEBU NEB SCH ×4 (07:39→19:05)
[2019-05-21] MEDS: IPRATROPIUM BROMIDE 0.5 MG/2.5 ML NEBU NEB SCH ×4 (07:39→19:05)
[2019-05-21 08:03] VITALS: BP 124/80
[2019-05-21] MEDS: PHENOBARBITAL 30 MG/7.5 ML LIQUID UDC GT SCH ×2 (08:38→21:15)
[2019-05-21] MEDS: PHENYTOIN 100 MG/4 ML UDC GT SCH ×2 (08:38→21:15)
[2019-05-21] MEDS: Z GUARD REMEDY PASTE 57 GM TUBE TOP SCH ×2 (08:39→21:16)
[2019-05-21] MEDS: PROTEIN SUPPLEMENT (PROSTAT) 30 ML LIQUID GT SCH ×2 (08:39→21:15)
[2019-05-21] MEDS: CETAPHIL TOP SCH ×2 (08:39→21:16)
[2019-05-21] MEDS: CHOLECALCIFEROL 400 UNITS TABLET GT SCH ×2 (08:39→21:15)
[2019-05-21] MEDS: VITAMINS A AND D OINT TP SCH ×3 (08:40→21:16)
[2019-05-21] MEDS: CLOTRIMAZOLE 1% CREAM 30 GM TUBE TP SCH ×2 (08:40→21:16)
[2019-05-21] MEDS: BETAMET DP 0.05% AUGM CR 15 GM CREAM.GM. TP SCH ×2 (08:40→21:16)
[2019-05-21] MEDS: HYDROGEN PEROXIDE 3% 118 ML BOTTLE TOP SCH ×2 (09:00→21:05)
--- NOTE | 2019-05-21 19:05 | NUR ---
PT RECEIVED ON CONTINUOUS VENT, TRACH TUBE IN PLACE PATENT AND SECURE WITH TRACH TIE. BACK UP TRACH AND AMBU BAG AT BEDSIDE. IN LINE TX GIVEN ORDERED. TOLERATING CURRENT VENT SETTINGS WELL, NO DISTRESS NOTED AT THIS TIME. TRACH CARE DONE. VENT ALARMS AUDIBLE, CHECKED AND RESET. WILL CONTINUE TO MONITOR.
[2019-05-21 20:00] VITALS: BP 120/78
[2019-05-21] MEDS: MIRALAX 17 GM POWD.PACK GT SCH (21:15)
[2019-05-22] MEDS: JEVITY 1.2 1000 ML LIQUID GT PRN (01:34)
[2019-05-22] MEDS: OMEPRAZOLE 20 MG CAPSULE.DR GT SCH ×2 (05:33→21:04)
[2019-05-22] MEDS: ALBUTEROL SULFATE 2.5 MG/ 0.5 ML NEBU NEB SCH ×4 (07:56→19:00)
[2019-05-22] MEDS: IPRATROPIUM BROMIDE 0.5 MG/2.5 ML NEBU NEB SCH ×4 (07:56→19:00)
[2019-05-22 08:04] VITALS: BP 138/80
[2019-05-22] MEDS: PHENOBARBITAL 30 MG/7.5 ML LIQUID UDC GT SCH ×2 (08:56→21:04)
[2019-05-22] MEDS: PHENYTOIN 100 MG/4 ML UDC GT SCH ×2 (08:56→21:02)
[2019-05-22] MEDS: PROTEIN SUPPLEMENT (PROSTAT) 30 ML LIQUID GT SCH ×2 (08:56→21:06)
[2019-05-22] MEDS: CHOLECALCIFEROL 400 UNITS TABLET GT SCH ×2 (08:58→21:06)
[2019-05-22] MEDS: BETAMET DP 0.05% AUGM CR 15 GM CREAM.GM. TP SCH ×2 (08:58→21:06)
[2019-05-22] MEDS: Z GUARD REMEDY PASTE 57 GM TUBE TOP SCH ×2 (08:58→21:06)
[2019-05-22] MEDS: CLOTRIMAZOLE 1% CREAM 30 GM TUBE TP SCH ×2 (08:58→21:06)
[2019-05-22] MEDS: VITAMINS A AND D OINT TP SCH ×3 (08:58→21:07)
[2019-05-22] MEDS: CETAPHIL TOP SCH ×2 (08:58→21:06)
[2019-05-22] MEDS: HYDROGEN PEROXIDE 3% 118 ML BOTTLE TOP SCH ×2 (09:00→21:42)
--- NOTE | 2019-05-22 19:01 | NUR ---
Received pt on HT-50 ventilator with the following settings of AC-14, Vt-700, FIO2-35%, trached with Shiley#8 XLT Distal trach, which is in the place and secure. No respiratory distress noted. Airway care done, pt responded to physical stimuli. In-line HHN tx with 2.5mg Albuterol+0.5mg Atrovent given, no adverse reaction noted. HME, Sx Rivera and HHN adaptor changed. Resus. bag at bedside. Vent and alarms checked and reset.
[2019-05-22 20:16] VITALS: BP 146/80
[2019-05-22] MEDS: MIRALAX 17 GM POWD.PACK GT SCH (21:04)
[2019-05-23] MEDS: JEVITY 1.2 1000 ML LIQUID GT PRN ×2 (00:07→17:47)
[2019-05-23] MEDS: OMEPRAZOLE 20 MG CAPSULE.DR GT SCH ×2 (05:33→20:09)
[2019-05-23] MEDS: IPRATROPIUM BROMIDE 0.5 MG/2.5 ML NEBU NEB SCH ×4 (07:33→19:12)
[2019-05-23] MEDS: ALBUTEROL SULFATE 2.5 MG/ 0.5 ML NEBU NEB SCH ×4 (07:33→19:12)
[2019-05-23] MEDS: HYDROGEN PEROXIDE 3% 118 ML BOTTLE TOP SCH ×2 (07:34→20:36)
[2019-05-23 08:00] VITALS: BP 129/82
[2019-05-23] MEDS: PHENOBARBITAL 30 MG/7.5 ML LIQUID UDC GT SCH ×2 (08:35→20:09)
[2019-05-23] MEDS: PHENYTOIN 100 MG/4 ML UDC GT SCH ×2 (08:35→20:09)
[2019-05-23] MEDS: CETAPHIL TOP SCH ×2 (08:36→20:09)
[2019-05-23] MEDS: PROTEIN SUPPLEMENT (PROSTAT) 30 ML LIQUID GT SCH ×2 (08:36→20:09)
[2019-05-23] MEDS: CHOLECALCIFEROL 400 UNITS TABLET GT SCH ×2 (08:36→20:09)
[2019-05-23] MEDS: Z GUARD REMEDY PASTE 57 GM TUBE TOP SCH ×2 (08:38→20:10)
[2019-05-23] MEDS: CLOTRIMAZOLE 1% CREAM 30 GM TUBE TP SCH ×2 (08:40→20:10)
[2019-05-23] MEDS: VITAMINS A AND D OINT TP SCH ×3 (08:40→20:10)
[2019-05-23] MEDS: BETAMET DP 0.05% AUGM CR 15 GM CREAM.GM. TP SCH ×2 (08:40→20:10)
[2019-05-23 20:04] VITALS: BP 131/78
[2019-05-23] MEDS: MIRALAX 17 GM POWD.PACK GT SCH (20:09)
[2019-05-24] MEDS: OMEPRAZOLE 20 MG CAPSULE.DR GT SCH ×2 (06:07→20:14)
[2019-05-24] MEDS: ALBUTEROL SULFATE 2.5 MG/ 0.5 ML NEBU NEB SCH ×4 (07:15→19:05)
[2019-05-24] MEDS: IPRATROPIUM BROMIDE 0.5 MG/2.5 ML NEBU NEB SCH ×4 (07:15→19:05)
--- NOTE | 2019-05-24 07:15 | NUR ---
PT REC'D ON [place] VENT TOLERATING CURRENT VENT SETTINGS WELL, NO DISTRESS/SOB NOTED AT THIS TIME. PT VENT'D VIA TRACHEOSTOMY, TUBE IN PLACE PATENT AND SECURE WITH TRACH TIE. INH NEB TX'S TO BE GIVEN PER MD ORDER AND SXN'ING NEEDED. VENT ALARMS AUDIBLE, CHECKED AND RESET. BVM AND BACK-UP TRACH AT BEDSIDE.
[2019-05-24 08:00] VITALS: BP 139/78
[2019-05-24] MEDS: PROTEIN SUPPLEMENT (PROSTAT) 30 ML LIQUID GT SCH ×2 (08:28→20:14)
[2019-05-24] MEDS: Z GUARD REMEDY PASTE 57 GM TUBE TOP SCH ×2 (08:28→20:15)
[2019-05-24] MEDS: CETAPHIL TOP SCH ×2 (08:28→20:15)
[2019-05-24] MEDS: PHENYTOIN 100 MG/4 ML UDC GT SCH ×2 (08:28→20:14)
[2019-05-24] MEDS: PHENOBARBITAL 30 MG/7.5 ML LIQUID UDC GT SCH ×2 (08:28→20:14)
[2019-05-24] MEDS: CHOLECALCIFEROL 400 UNITS TABLET GT SCH ×2 (08:28→20:15)
[2019-05-24] MEDS: CLOTRIMAZOLE 1% CREAM 30 GM TUBE TP SCH ×2 (08:29→20:15)
[2019-05-24] MEDS: BETAMET DP 0.05% AUGM CR 15 GM CREAM.GM. TP SCH ×2 (08:29→20:15)
[2019-05-24] MEDS: VITAMINS A AND D OINT TP SCH ×3 (08:29→20:15)
[2019-05-24] MEDS: HYDROGEN PEROXIDE 3% 118 ML BOTTLE TOP SCH ×2 (09:00→21:16)
[2019-05-24] MEDS: JEVITY 1.2 1000 ML LIQUID GT PRN (18:12)
[2019-05-24 20:10] VITALS: BP 152/84
[2019-05-24] MEDS: MIRALAX 17 GM POWD.PACK GT SCH (20:14)
[2019-05-25] MEDS: OMEPRAZOLE 20 MG CAPSULE.DR GT SCH ×2 (05:44→21:17)
[2019-05-25 08:00] VITALS: BP 135/82
[2019-05-25] MEDS: IPRATROPIUM BROMIDE 0.5 MG/2.5 ML NEBU NEB SCH ×4 (08:17→19:08)
[2019-05-25] MEDS: ALBUTEROL SULFATE 2.5 MG/ 0.5 ML NEBU NEB SCH ×4 (08:17→19:08)
[2019-05-25] MEDS: PHENOBARBITAL 30 MG/7.5 ML LIQUID UDC GT SCH ×2 (08:45→21:16)
[2019-05-25] MEDS: PHENYTOIN 100 MG/4 ML UDC GT SCH ×2 (08:45→21:13)
[2019-05-25] MEDS: CETAPHIL TOP SCH ×2 (08:46→21:18)
[2019-05-25] MEDS: CHOLECALCIFEROL 400 UNITS TABLET GT SCH ×2 (08:46→21:18)
[2019-05-25] MEDS: PROTEIN SUPPLEMENT (PROSTAT) 30 ML LIQUID GT SCH ×2 (08:46→21:18)
[2019-05-25] MEDS: BETAMET DP 0.05% AUGM CR 15 GM CREAM.GM. TP SCH ×2 (08:47→21:18)
[2019-05-25] MEDS: Z GUARD REMEDY PASTE 57 GM TUBE TOP SCH ×2 (08:47→21:18)
[2019-05-25] MEDS: VITAMINS A AND D OINT TP SCH ×3 (08:48→21:19)
[2019-05-25] MEDS: CLOTRIMAZOLE 1% CREAM 30 GM TUBE TP SCH ×2 (08:48→21:19)
[2019-05-25] MEDS: HYDROGEN PEROXIDE 3% 118 ML BOTTLE TOP SCH ×2 (09:00→20:36)
[2019-05-25] MEDS: JEVITY 1.2 1000 ML LIQUID GT PRN (15:29)
[2019-05-25 20:00] VITALS: BP 127/71
[2019-05-25] MEDS: MIRALAX 17 GM POWD.PACK GT SCH (21:13)
[2019-05-26] MEDS: OMEPRAZOLE 20 MG CAPSULE.DR GT SCH ×2 (06:32→21:55)
[2019-05-26] MEDS: IPRATROPIUM BROMIDE 0.5 MG/2.5 ML NEBU NEB SCH ×4 (07:51→19:00)
[2019-05-26] MEDS: ALBUTEROL SULFATE 2.5 MG/ 0.5 ML NEBU NEB SCH ×4 (07:51→19:00)
[2019-05-26 08:00] VITALS: BP 115/58
[2019-05-26] MEDS: HYDROGEN PEROXIDE 3% 118 ML BOTTLE TOP SCH ×2 (09:00→20:39)
[2019-05-26] MEDS: PHENOBARBITAL 30 MG/7.5 ML LIQUID UDC GT SCH ×2 (09:24→21:53)
[2019-05-26] MEDS: PHENYTOIN 100 MG/4 ML UDC GT SCH ×2 (09:24→21:47)
[2019-05-26] MEDS: CETAPHIL TOP SCH ×2 (09:26→21:55)
[2019-05-26] MEDS: Z GUARD REMEDY PASTE 57 GM TUBE TOP SCH ×2 (09:26→21:55)
[2019-05-26] MEDS: CHOLECALCIFEROL 400 UNITS TABLET GT SCH ×2 (09:26→21:55)
[2019-05-26] MEDS: PROTEIN SUPPLEMENT (PROSTAT) 30 ML LIQUID GT SCH ×2 (09:26→21:55)
[2019-05-26] MEDS: BETAMET DP 0.05% AUGM CR 15 GM CREAM.GM. TP SCH ×2 (09:26→21:55)
[2019-05-26] MEDS: CLOTRIMAZOLE 1% CREAM 30 GM TUBE TP SCH ×2 (09:27→21:55)
[2019-05-26] MEDS: VITAMINS A AND D OINT TP SCH ×3 (09:27→21:55)
[2019-05-26] MEDS: MIRALAX 17 GM POWD.PACK GT SCH (21:53)
[2019-05-27] MEDS: OMEPRAZOLE 20 MG CAPSULE.DR GT SCH ×2 (05:35→21:20)
[2019-05-27] MEDS: ALBUTEROL SULFATE 2.5 MG/ 0.5 ML NEBU NEB SCH ×4 (07:08→19:12)
[2019-05-27] MEDS: IPRATROPIUM BROMIDE 0.5 MG/2.5 ML NEBU NEB SCH ×4 (07:08→19:12)
[2019-05-27 08:00] VITALS: BP 127/62
[2019-05-27] MEDS: HYDROGEN PEROXIDE 3% 118 ML BOTTLE TOP SCH ×2 (09:00→21:00)
[2019-05-27] MEDS: PROTEIN SUPPLEMENT (PROSTAT) 30 ML LIQUID GT SCH ×2 (09:02→21:20)
[2019-05-27] MEDS: CETAPHIL TOP SCH ×2 (09:02→21:21)
[2019-05-27] MEDS: CHOLECALCIFEROL 400 UNITS TABLET GT SCH ×2 (09:02→21:20)
[2019-05-27] MEDS: CLOTRIMAZOLE 1% CREAM 30 GM TUBE TP SCH ×2 (09:02→21:21)
[2019-05-27] MEDS: PHENYTOIN 100 MG/4 ML UDC GT SCH ×2 (09:02→21:20)
[2019-05-27] MEDS: VITAMINS A AND D OINT TP SCH ×3 (09:02→21:21)
[2019-05-27] MEDS: PHENOBARBITAL 30 MG/7.5 ML LIQUID UDC GT SCH ×2 (09:02→21:20)
[2019-05-27] MEDS: Z GUARD REMEDY PASTE 57 GM TUBE TOP SCH ×2 (09:02→21:21)
[2019-05-27] MEDS: BETAMET DP 0.05% AUGM CR 15 GM CREAM.GM. TP SCH ×2 (09:02→21:21)
[2019-05-27] MEDS: JEVITY 1.2 1000 ML LIQUID GT PRN (14:04)
[2019-05-27 20:38] VITALS: BP 133/87
[2019-05-27] MEDS: MIRALAX 17 GM POWD.PACK GT SCH (21:20)
--- NOTE | 2019-05-28 02:59 | NUR ---
Resident endorsed on [place] ventilator with ordered vent settings. No signs of SOB noted at this time. HHN treatments administered and tolerated well, no adverse reactions. Airway is patent/secure @midline, BOBBIN CLEANER HAND used for cuff assessment. Alarms are on/audible. SXN'd small amounts of pale yellow secretions without complications. Alarms assessed and are on/audible. Spare trach/Ambubag at bedside. Will continue to monitor.
[2019-05-28] MEDS: OMEPRAZOLE 20 MG CAPSULE.DR GT SCH ×2 (06:09→21:07)
[2019-05-28] MEDS: ALBUTEROL SULFATE 2.5 MG/ 0.5 ML NEBU NEB SCH ×4 (07:48→19:18)
[2019-05-28] MEDS: IPRATROPIUM BROMIDE 0.5 MG/2.5 ML NEBU NEB SCH ×4 (07:48→19:18)
[2019-05-28] MEDS: PHENYTOIN 100 MG/4 ML UDC GT SCH ×2 (08:39→21:07)
[2019-05-28] MEDS: PROTEIN SUPPLEMENT (PROSTAT) 30 ML LIQUID GT SCH ×2 (08:41→21:07)
[2019-05-28] MEDS: PHENOBARBITAL 30 MG/7.5 ML LIQUID UDC GT SCH ×2 (08:41→21:07)
[2019-05-28] MEDS: CHOLECALCIFEROL 400 UNITS TABLET GT SCH ×2 (08:41→21:07)
[2019-05-28] MEDS: Z GUARD REMEDY PASTE 57 GM TUBE TOP SCH ×2 (08:46→21:07)
[2019-05-28] MEDS: CETAPHIL TOP SCH ×2 (08:46→21:07)
[2019-05-28] MEDS: BETAMET DP 0.05% AUGM CR 15 GM CREAM.GM. TP SCH ×2 (08:47→21:07)
[2019-05-28] MEDS: CLOTRIMAZOLE 1% CREAM 30 GM TUBE TP SCH ×2 (08:47→21:07)
[2019-05-28] MEDS: VITAMINS A AND D OINT TP SCH ×3 (08:47→21:07)
[2019-05-28] MEDS: HYDROGEN PEROXIDE 3% 118 ML BOTTLE TOP SCH ×2 (09:27→21:26)
--- NOTE | 2019-05-28 18:45 | NUR ---
JEAN PAUL Wilson spoke with patient's mother [phone] and informed her that per CDC and [facility] decision to minimize the risk of subacute residents becoming sick with the COVID-19 virus, visitation to all LTC facilities will be suspended, effective immediately, and until further notice. BJ expressed understanding.
[2019-05-28 20:50] VITALS: BP 134/83
[2019-05-28] MEDS: MIRALAX 17 GM POWD.PACK GT SCH (21:07)
[2019-05-29] MEDS: OMEPRAZOLE 20 MG CAPSULE.DR GT SCH ×2 (05:45→20:59)
[2019-05-29] MEDS: IPRATROPIUM BROMIDE 0.5 MG/2.5 ML NEBU NEB SCH ×4 (07:41→18:45)
[2019-05-29] MEDS: ALBUTEROL SULFATE 2.5 MG/ 0.5 ML NEBU NEB SCH ×4 (07:41→18:45)
[2019-05-29 08:00] VITALS: BP 110/60
[2019-05-29] MEDS: VITAMINS A AND D OINT TP SCH ×3 (09:00→20:59)
[2019-05-29] MEDS: HYDROGEN PEROXIDE 3% 118 ML BOTTLE TOP SCH ×2 (09:03→18:45)
--- NOTE | 2019-05-29 09:31 | NUR ---
received pt awake,no respiratory distress ,no discomfort noted,trach connected to ventilator,afebrile temp 97.3,o2 sat 98%.
[2019-05-29] MEDS: PHENOBARBITAL 30 MG/7.5 ML LIQUID UDC GT SCH ×2 (09:59→20:59)
[2019-05-29] MEDS: PHENYTOIN 100 MG/4 ML UDC GT SCH ×2 (09:59→20:59)
[2019-05-29] MEDS: CETAPHIL TOP SCH ×2 (09:59→20:59)
[2019-05-29] MEDS: BETAMET DP 0.05% AUGM CR 15 GM CREAM.GM. TP SCH ×2 (09:59→20:59)
[2019-05-29] MEDS: CLOTRIMAZOLE 1% CREAM 30 GM TUBE TP SCH ×2 (09:59→20:59)
[2019-05-29] MEDS: CHOLECALCIFEROL 400 UNITS TABLET GT SCH ×2 (09:59→20:59)
[2019-05-29] MEDS: Z GUARD REMEDY PASTE 57 GM TUBE TOP SCH ×2 (09:59→20:59)
[2019-05-29] MEDS: PROTEIN SUPPLEMENT (PROSTAT) 30 ML LIQUID GT SCH ×2 (09:59→20:59)
[2019-05-29] MEDS: JEVITY 1.2 1000 ML LIQUID GT PRN (10:29)
[2019-05-29 20:42] VITALS: BP 148/84
[2019-05-29] MEDS: MIRALAX 17 GM POWD.PACK GT SCH (20:59)
--- NOTE | 2019-05-29 21:05 | NUR ---
Patient is afebrile, Temperature i s 98.4F, trach is intact and patent, connected to vent, no SOB, no respiratory distress noted, turned and repositioned, kept clean and comfortable.
[2019-05-30] MEDS: JEVITY 1.2 1000 ML LIQUID GT PRN ×2 (01:01→22:24)
[2019-05-30] MEDS: OMEPRAZOLE 20 MG CAPSULE.DR GT SCH ×2 (05:48→21:01)
[2019-05-30 08:00] VITALS: BP 143/83
[2019-05-30] MEDS: ALBUTEROL SULFATE 2.5 MG/ 0.5 ML NEBU NEB SCH ×4 (08:01→18:40)
[2019-05-30] MEDS: IPRATROPIUM BROMIDE 0.5 MG/2.5 ML NEBU NEB SCH ×4 (08:01→18:40)
[2019-05-30] MEDS: PHENOBARBITAL 30 MG/7.5 ML LIQUID UDC GT SCH ×2 (08:56→21:01)
[2019-05-30] MEDS: PHENYTOIN 100 MG/4 ML UDC GT SCH ×2 (08:56→21:01)
[2019-05-30] MEDS: CHOLECALCIFEROL 400 UNITS TABLET GT SCH ×2 (08:57→21:01)
[2019-05-30] MEDS: PROTEIN SUPPLEMENT (PROSTAT) 30 ML LIQUID GT SCH ×2 (08:57→21:01)
[2019-05-30] MEDS: BETAMET DP 0.05% AUGM CR 15 GM CREAM.GM. TP SCH ×2 (08:58→21:02)
[2019-05-30] MEDS: CETAPHIL TOP SCH ×2 (08:58→21:01)
[2019-05-30] MEDS: VITAMINS A AND D OINT TP SCH ×3 (08:58→21:02)
[2019-05-30] MEDS: CLOTRIMAZOLE 1% CREAM 30 GM TUBE TP SCH ×2 (08:58→21:02)
[2019-05-30] MEDS: Z GUARD REMEDY PASTE 57 GM TUBE TOP SCH ×2 (08:58→21:01)
[2019-05-30] MEDS: HYDROGEN PEROXIDE 3% 118 ML BOTTLE TOP SCH ×2 (09:00→18:40)
--- NOTE | 2019-05-30 16:26 | NUR ---
No respiratory distress noted ,afebrile temp 98,enteral feeding tolerated well ,keep comfortable in bed,no changes on condition.
[2019-05-30 20:37] VITALS: BP 134/80
[2019-05-30] MEDS: MIRALAX 17 GM POWD.PACK GT SCH (21:01)
--- NOTE | 2019-05-30 21:10 | NUR ---
Afebrile, temperature is 98.7 Fahrenheit, trach is intact and patent, connected to vent, 02 sat is 100%, no respiratory distress noted, kept clean and comfortable.
[2019-05-31] MEDS: OMEPRAZOLE 20 MG CAPSULE.DR GT SCH ×2 (05:37→21:00)
[2019-05-31] MEDS: IPRATROPIUM BROMIDE 0.5 MG/2.5 ML NEBU NEB SCH ×4 (07:34→19:10)
[2019-05-31] MEDS: ALBUTEROL SULFATE 2.5 MG/ 0.5 ML NEBU NEB SCH ×4 (07:35→19:10)
[2019-05-31 08:00] VITALS: BP 160/87
[2019-05-31] MEDS: PHENYTOIN 100 MG/4 ML UDC GT SCH ×2 (08:44→21:57)
[2019-05-31] MEDS: PROTEIN SUPPLEMENT (PROSTAT) 30 ML LIQUID GT SCH ×2 (08:45→21:00)
[2019-05-31] MEDS: CHOLECALCIFEROL 400 UNITS TABLET GT SCH ×2 (08:45→21:00)
[2019-05-31] MEDS: CLOTRIMAZOLE 1% CREAM 30 GM TUBE TP SCH ×2 (08:45→21:00)
[2019-05-31] MEDS: CETAPHIL TOP SCH ×2 (08:45→21:00)
[2019-05-31] MEDS: BETAMET DP 0.05% AUGM CR 15 GM CREAM.GM. TP SCH ×2 (08:45→21:00)
[2019-05-31] MEDS: Z GUARD REMEDY PASTE 57 GM TUBE TOP SCH ×2 (08:45→21:00)
[2019-05-31] MEDS: VITAMINS A AND D OINT TP SCH ×3 (08:46→21:00)
[2019-05-31 09:23] VITALS: BP 160/87
[2019-05-31 09:25] VITALS: BP 160/87
[2019-05-31] MEDS: HYDROGEN PEROXIDE 3% 118 ML BOTTLE TOP SCH ×2 (09:58→20:42)
[2019-05-31] MEDS: PHENOBARBITAL 60 MG TABLET GT SCH ×2 (10:09→21:00)
--- NOTE | 2019-05-31 14:38 | NUR ---
Patient stable, no acute respiratory distress noted, repositioned q2hrs for comfort, Mother notified of patient's condition.
[2019-05-31 20:59] VITALS: BP 128/81
--- NOTE | 2019-05-31 21:00 | NUR ---
Phenobarbital 60 mg tablet form not given because Liquid form was available and that was given to patient.
--- NOTE | 2019-05-31 21:25 | NUR ---
Temperature is 98.4, no SOB, no signs of any respiratory distress noted, patient is stable, turned and repositioned, kept clean and comfortable.
[2019-05-31] MEDS: MIRALAX 17 GM POWD.PACK GT SCH (21:57)
--- NOTE | 2019-05-31 22:00 | NUR ---
Phenobarbital 30mg/7.5 ml; 15ml was administered by Licensed nurse ( Duplicate).
--- NOTE | 2019-05-31 22:00 | NUR ---
Discontinued Phenobarbital 60 mg tablet d/t Phenobarbital Liquid is now available.
[2019-06-01] MEDS: JEVITY 1.2 1000 ML LIQUID GT PRN ×2 (01:30→18:52)
[2019-06-01] MEDS: OMEPRAZOLE 20 MG CAPSULE.DR GT SCH ×2 (06:02→21:40)
[2019-06-01] MEDS: ALBUTEROL SULFATE 2.5 MG/ 0.5 ML NEBU NEB SCH ×4 (07:31→19:21)
[2019-06-01] MEDS: IPRATROPIUM BROMIDE 0.5 MG/2.5 ML NEBU NEB SCH ×4 (07:31→19:21)
[2019-06-01 08:12] VITALS: BP 131/81
[2019-06-01] MEDS: PROTEIN SUPPLEMENT (PROSTAT) 30 ML LIQUID GT SCH ×2 (09:17→21:40)
[2019-06-01] MEDS: CHOLECALCIFEROL 400 UNITS TABLET GT SCH ×2 (09:17→21:40)
[2019-06-01] MEDS: Z GUARD REMEDY PASTE 57 GM TUBE TOP SCH ×2 (09:17→21:41)
[2019-06-01] MEDS: PHENOBARBITAL 30 MG/7.5 ML LIQUID UDC GT SCH ×2 (09:17→21:40)
[2019-06-01] MEDS: PHENYTOIN 100 MG/4 ML UDC GT SCH ×2 (09:17→21:38)
[2019-06-01] MEDS: CLOTRIMAZOLE 1% CREAM 30 GM TUBE TP SCH ×2 (09:18→21:41)
[2019-06-01] MEDS: VITAMINS A AND D OINT TP SCH ×3 (09:18→21:41)
[2019-06-01] MEDS: BETAMET DP 0.05% AUGM CR 15 GM CREAM.GM. TP SCH ×2 (09:18→21:41)
[2019-06-01] MEDS: CETAPHIL TOP SCH ×2 (09:18→21:41)
[2019-06-01] MEDS: HYDROGEN PEROXIDE 3% 118 ML BOTTLE TOP SCH ×2 (09:50→20:59)
--- NOTE | 2019-06-01 16:41 | NUR ---
pt afebrile temp 98.1,has trach to ventilator,no respiratory distress ,no increase secretions ,o2 sat 99.On close observation.
[2019-06-01 20:00] VITALS: BP 140/76
[2019-06-01] MEDS: MIRALAX 17 GM POWD.PACK GT SCH (21:38)
[2019-06-02] MEDS: OMEPRAZOLE 20 MG CAPSULE.DR GT SCH ×2 (05:41→21:00)
[2019-06-02] MEDS: HYDROGEN PEROXIDE 3% 118 ML BOTTLE TOP SCH ×2 (07:44→18:47)
[2019-06-02] MEDS: IPRATROPIUM BROMIDE 0.5 MG/2.5 ML NEBU NEB SCH ×4 (07:44→18:47)
[2019-06-02] MEDS: ALBUTEROL SULFATE 2.5 MG/ 0.5 ML NEBU NEB SCH ×4 (07:44→18:47)
[2019-06-02 08:10] VITALS: BP 133/84
[2019-06-02] MEDS: PROTEIN SUPPLEMENT (PROSTAT) 30 ML LIQUID GT SCH ×2 (09:00→21:00)
[2019-06-02] MEDS: PHENYTOIN 100 MG/4 ML UDC GT SCH ×2 (09:00→21:00)
[2019-06-02] MEDS: Z GUARD REMEDY PASTE 57 GM TUBE TOP SCH ×2 (09:00→21:00)
[2019-06-02] MEDS: CETAPHIL TOP SCH ×2 (09:00→21:00)
[2019-06-02] MEDS: CLOTRIMAZOLE 1% CREAM 30 GM TUBE TP SCH ×2 (09:00→21:00)
[2019-06-02] MEDS: PHENOBARBITAL 30 MG/7.5 ML LIQUID UDC GT SCH ×2 (09:00→21:00)
[2019-06-02] MEDS: VITAMINS A AND D OINT TP SCH ×3 (09:00→21:00)
[2019-06-02] MEDS: CHOLECALCIFEROL 400 UNITS TABLET GT SCH ×2 (09:00→21:00)
[2019-06-02] MEDS: BETAMET DP 0.05% AUGM CR 15 GM CREAM.GM. TP SCH ×2 (09:00→21:00)
--- NOTE | 2019-06-02 18:08 | NUR ---
In stable condition,no respiratory distress,trach connected to ventilator,afebrile temp 97.9.
[2019-06-02 20:15] VITALS: BP 144/85
[2019-06-02] MEDS: MIRALAX 17 GM POWD.PACK GT SCH (21:00)
[2019-06-02] MEDS: JEVITY 1.2 1000 ML LIQUID GT PRN (23:30)
[2019-06-03] MEDS: OMEPRAZOLE 20 MG CAPSULE.DR GT SCH ×2 (05:59→21:40)
[2019-06-03] MEDS: IPRATROPIUM BROMIDE 0.5 MG/2.5 ML NEBU NEB SCH ×4 (07:23→19:09)
[2019-06-03] MEDS: ALBUTEROL SULFATE 2.5 MG/ 0.5 ML NEBU NEB SCH ×4 (07:23→19:09)
[2019-06-03 08:01] VITALS: BP 130/80
[2019-06-03] MEDS: PHENYTOIN 100 MG/4 ML UDC GT SCH ×2 (08:46→21:39)
[2019-06-03] MEDS: PHENOBARBITAL 30 MG/7.5 ML LIQUID UDC GT SCH ×2 (08:47→21:40)
[2019-06-03] MEDS: CLOTRIMAZOLE 1% CREAM 30 GM TUBE TP SCH ×2 (08:48→21:40)
[2019-06-03] MEDS: PROTEIN SUPPLEMENT (PROSTAT) 30 ML LIQUID GT SCH ×2 (08:48→21:40)
[2019-06-03] MEDS: CETAPHIL TOP SCH ×2 (08:48→21:40)
[2019-06-03] MEDS: Z GUARD REMEDY PASTE 57 GM TUBE TOP SCH ×2 (08:48→21:40)
[2019-06-03] MEDS: CHOLECALCIFEROL 400 UNITS TABLET GT SCH ×2 (08:48→21:40)
[2019-06-03] MEDS: BETAMET DP 0.05% AUGM CR 15 GM CREAM.GM. TP SCH ×2 (08:48→21:40)
[2019-06-03] MEDS: VITAMINS A AND D OINT TP SCH ×3 (08:49→21:40)
[2019-06-03] MEDS: HYDROGEN PEROXIDE 3% 118 ML BOTTLE TOP SCH ×2 (09:33→20:43)
[2019-06-03] MEDS: MIRALAX 17 GM POWD.PACK GT SCH (21:39)
[2019-06-03 23:34] VITALS: BP 139/82
[2019-06-04] MEDS: OMEPRAZOLE 20 MG CAPSULE.DR GT SCH ×2 (06:03→20:44)
[2019-06-04] MEDS: JEVITY 1.2 1000 ML LIQUID GT PRN (06:04)
[2019-06-04] MEDS: ALBUTEROL SULFATE 2.5 MG/ 0.5 ML NEBU NEB SCH ×4 (07:35→19:12)
[2019-06-04] MEDS: IPRATROPIUM BROMIDE 0.5 MG/2.5 ML NEBU NEB SCH ×4 (07:35→19:12)
--- NOTE | 2019-06-04 07:35 | NUR ---
PT REC'D ON HT-50 VENT TOLERATING CURRENT VENT SETTINGS WELL, NO DISTRESS/SOB NOTED AT THIS TIME. PT VENT'D VIA TRACHEOSTOMY, TUBE IN PLACE PATENT AND SECURE WITH TRACH TIE. INH NEB TX'S TO BE GIVEN PER MD ORDER AND SXN'ING NEEDED. VENT ALARMS AUDIBLE, CHECKED AND RESET. BVM AND BACK-UP TRACH AT BEDSIDE.
[2019-06-04 08:02] VITALS: BP 128/76
[2019-06-04] MEDS: Z GUARD REMEDY PASTE 57 GM TUBE TOP SCH ×2 (08:28→20:45)
[2019-06-04] MEDS: CLOTRIMAZOLE 1% CREAM 30 GM TUBE TP SCH ×2 (08:28→20:45)
[2019-06-04] MEDS: CETAPHIL TOP SCH ×2 (08:28→20:45)
[2019-06-04] MEDS: BETAMET DP 0.05% AUGM CR 15 GM CREAM.GM. TP SCH ×2 (08:28→20:45)
[2019-06-04] MEDS: PROTEIN SUPPLEMENT (PROSTAT) 30 ML LIQUID GT SCH ×2 (08:28→20:44)
[2019-06-04] MEDS: PHENYTOIN 100 MG/4 ML UDC GT SCH ×2 (08:28→20:41)
[2019-06-04] MEDS: PHENOBARBITAL 30 MG/7.5 ML LIQUID UDC GT SCH ×2 (08:28→20:41)
[2019-06-04] MEDS: CHOLECALCIFEROL 400 UNITS TABLET GT SCH ×2 (08:28→20:44)
[2019-06-04] MEDS: VITAMINS A AND D OINT TP SCH ×3 (08:29→20:45)
[2019-06-04] MEDS: HYDROGEN PEROXIDE 3% 118 ML BOTTLE TOP SCH ×2 (08:55→20:56)
--- NOTE | 2019-06-04 19:10 | NUR ---
PT RECEIVED ON CONTINUOUS VENT, TRACH TUBE IN PLACE AND SECURE WITH TRACH TIE. BACK UP TRACH AND AMBU BAG AT BEDSIDE. IN LINE TX GIVEN WITH UD ALBUTEROL+UD ATROVENT ORDERED. TOLERATING CURRENT VENT SETTINGS WELL, NO DISTRESS NOTED AT THIS TIME. TRACH CARE DONE. VENT ALARMS AUDIBLE, CHECKED AND RESET. WILL CONTINUE TO MONITOR.
[2019-06-04 20:21] VITALS: BP 127/78
[2019-06-04] MEDS: MIRALAX 17 GM POWD.PACK GT SCH (20:41)
[2019-06-05] MEDS: OMEPRAZOLE 20 MG CAPSULE.DR GT SCH ×2 (05:48→20:59)
[2019-06-05] MEDS: JEVITY 1.2 1000 ML LIQUID GT PRN (05:49)
[2019-06-05] MEDS: IPRATROPIUM BROMIDE 0.5 MG/2.5 ML NEBU NEB SCH ×4 (07:44→19:10)
[2019-06-05] MEDS: ALBUTEROL SULFATE 2.5 MG/ 0.5 ML NEBU NEB SCH ×4 (07:44→19:10)
[2019-06-05] MEDS: BETAMET DP 0.05% AUGM CR 15 GM CREAM.GM. TP SCH ×2 (08:27→20:56)
[2019-06-05] MEDS: PHENYTOIN 100 MG/4 ML UDC GT SCH ×2 (08:27→20:51)
[2019-06-05] MEDS: PHENOBARBITAL 30 MG/7.5 ML LIQUID UDC GT SCH ×2 (08:27→20:55)
[2019-06-05] MEDS: CLOTRIMAZOLE 1% CREAM 30 GM TUBE TP SCH ×2 (08:27→20:56)
[2019-06-05] MEDS: PROTEIN SUPPLEMENT (PROSTAT) 30 ML LIQUID GT SCH ×2 (08:27→20:55)
[2019-06-05] MEDS: CETAPHIL TOP SCH ×2 (08:27→20:56)
[2019-06-05] MEDS: CHOLECALCIFEROL 400 UNITS TABLET GT SCH ×2 (08:27→20:55)
[2019-06-05] MEDS: Z GUARD REMEDY PASTE 57 GM TUBE TOP SCH ×2 (08:27→20:56)
[2019-06-05] MEDS: VITAMINS A AND D OINT TP SCH ×3 (08:27→20:56)
[2019-06-05] MEDS: HYDROGEN PEROXIDE 3% 118 ML BOTTLE TOP SCH ×2 (09:00→20:56)
[2019-06-05 20:12] VITALS: BP 124/88
[2019-06-05] MEDS: MIRALAX 17 GM POWD.PACK GT SCH (20:59)
[2019-06-06] MEDS: JEVITY 1.2 1000 ML LIQUID GT PRN ×2 (02:01→18:27)
[2019-06-06] MEDS: OMEPRAZOLE 20 MG CAPSULE.DR GT SCH ×2 (05:31→20:26)
[2019-06-06 08:00] VITALS: BP 141/91
[2019-06-06] MEDS: IPRATROPIUM BROMIDE 0.5 MG/2.5 ML NEBU NEB SCH ×4 (08:10→19:15)
[2019-06-06] MEDS: ALBUTEROL SULFATE 2.5 MG/ 0.5 ML NEBU NEB SCH ×4 (08:10→19:15)
[2019-06-06] MEDS: PHENYTOIN 100 MG/4 ML UDC GT SCH ×2 (08:34→20:26)
[2019-06-06] MEDS: PROTEIN SUPPLEMENT (PROSTAT) 30 ML LIQUID GT SCH ×2 (08:38→20:27)
[2019-06-06] MEDS: CHOLECALCIFEROL 400 UNITS TABLET GT SCH ×2 (08:38→20:26)
[2019-06-06] MEDS: PHENOBARBITAL 30 MG/7.5 ML LIQUID UDC GT SCH ×2 (08:38→20:26)
--- NOTE | 2019-06-06 08:40 | NUR ---
SEEN BY LEOBARDO FENTON AND WITH NNO.
[2019-06-06] MEDS: CLOTRIMAZOLE 1% CREAM 30 GM TUBE TP SCH ×2 (09:00→20:26)
[2019-06-06] MEDS: BETAMET DP 0.05% AUGM CR 15 GM CREAM.GM. TP SCH ×2 (09:00→20:26)
[2019-06-06] MEDS: VITAMINS A AND D OINT TP SCH ×3 (09:00→20:27)
[2019-06-06] MEDS: CETAPHIL TOP SCH ×2 (09:00→20:27)
[2019-06-06] MEDS: Z GUARD REMEDY PASTE 57 GM TUBE TOP SCH ×2 (09:00→20:26)
[2019-06-06] MEDS: HYDROGEN PEROXIDE 3% 118 ML BOTTLE TOP SCH ×2 (09:00→21:37)
[2019-06-06] MEDS: MIRALAX 17 GM POWD.PACK GT SCH (20:26)
[2019-06-06 20:48] VITALS: BP 134/83
[2019-06-07] MEDS: OMEPRAZOLE 20 MG CAPSULE.DR GT SCH ×2 (05:30→21:12)
[2019-06-07] MEDS: IPRATROPIUM BROMIDE 0.5 MG/2.5 ML NEBU NEB SCH ×4 (07:35→19:09)
[2019-06-07] MEDS: ALBUTEROL SULFATE 2.5 MG/ 0.5 ML NEBU NEB SCH ×4 (07:35→19:09)
[2019-06-07 08:00] VITALS: BP 141/71
[2019-06-07] MEDS: HYDROGEN PEROXIDE 3% 118 ML BOTTLE TOP SCH ×2 (09:00→20:40)
[2019-06-07] MEDS: PHENOBARBITAL 30 MG/7.5 ML LIQUID UDC GT SCH ×2 (09:06→21:10)
[2019-06-07] MEDS: PROTEIN SUPPLEMENT (PROSTAT) 30 ML LIQUID GT SCH ×2 (09:06→21:12)
[2019-06-07] MEDS: PHENYTOIN 100 MG/4 ML UDC GT SCH ×2 (09:06→21:10)
[2019-06-07] MEDS: CHOLECALCIFEROL 400 UNITS TABLET GT SCH ×2 (09:07→21:13)
[2019-06-07] MEDS: CETAPHIL TOP SCH ×2 (09:08→21:15)
[2019-06-07] MEDS: Z GUARD REMEDY PASTE 57 GM TUBE TOP SCH ×2 (09:08→21:14)
[2019-06-07] MEDS: VITAMINS A AND D OINT TP SCH ×3 (09:08→21:15)
[2019-06-07] MEDS: CLOTRIMAZOLE 1% CREAM 30 GM TUBE TP SCH ×2 (09:08→21:14)
[2019-06-07] MEDS: BETAMET DP 0.05% AUGM CR 15 GM CREAM.GM. TP SCH ×2 (09:08→21:15)
--- NOTE | 2019-06-07 19:10 | NUR ---
PT RECEIVED ON CONTINUOUS VENT, TRACH IN PLACED AND SECURED WITH TRACH TIE. BACK UP TRACH AND AMBU BAG AT BEDSIDE. TRACH CARE DONE. IN LINE TX GIVEN ORDERED. SUCTION PRN. VENT CHECKED, ALARMS WORKING WELL AND AUDIBLE. NO DISTRESS NOTED AT THIS TIME. WILL CONTINUE TO MONITOR.
[2019-06-07 20:13] VITALS: BP 126/89
[2019-06-07] MEDS: MIRALAX 17 GM POWD.PACK GT SCH (21:10)
[2019-06-08] MEDS: OMEPRAZOLE 20 MG CAPSULE.DR GT SCH ×2 (05:32→20:20)
[2019-06-08] MEDS: IPRATROPIUM BROMIDE 0.5 MG/2.5 ML NEBU NEB SCH ×4 (07:00→19:07)
[2019-06-08] MEDS: ALBUTEROL SULFATE 2.5 MG/ 0.5 ML NEBU NEB SCH ×4 (07:00→19:07)
[2019-06-08 08:00] VITALS: BP 135/84
[2019-06-08] MEDS: HYDROGEN PEROXIDE 3% 118 ML BOTTLE TOP SCH ×2 (09:00→21:46)
[2019-06-08] MEDS: PHENOBARBITAL 30 MG/7.5 ML LIQUID UDC GT SCH ×2 (09:03→20:20)
[2019-06-08] MEDS: PHENYTOIN 100 MG/4 ML UDC GT SCH ×2 (09:03→20:20)
[2019-06-08] MEDS: CHOLECALCIFEROL 400 UNITS TABLET GT SCH ×2 (09:04→20:21)
[2019-06-08] MEDS: PROTEIN SUPPLEMENT (PROSTAT) 30 ML LIQUID GT SCH ×2 (09:04→20:20)
[2019-06-08] MEDS: Z GUARD REMEDY PASTE 57 GM TUBE TOP SCH ×2 (09:22→20:22)
[2019-06-08] MEDS: BETAMET DP 0.05% AUGM CR 15 GM CREAM.GM. TP SCH ×2 (09:22→20:22)
[2019-06-08] MEDS: CETAPHIL TOP SCH ×2 (09:22→20:22)
[2019-06-08] MEDS: CLOTRIMAZOLE 1% CREAM 30 GM TUBE TP SCH ×2 (09:22→20:22)
[2019-06-08] MEDS: VITAMINS A AND D OINT TP SCH ×3 (09:23→20:22)
--- NOTE | 2019-06-08 15:13 | NUR ---
INTERDISCIPLINARY PLAN OF CARE CONFERENCE was held today. Patient's parents were unable to attend the meeting. Dr. Hammond and the Interdisciplinary Team reviewed the current plan of care in detail. RN reported on patient's medical condition. See RN IDT conference notes. No major changes in condition were reported. See also all other disciplines IDT notes and physician's progress notes for additional details.
--- NOTE | 2019-06-08 15:19 | NUR ---
Pharmacy Update from Today's 06/08/19 IDT meeting VS: Temp 97.7 HR 81 BP 135/84 LABS: (from 03/18/19, no new labs) Wbc 6.4 H/H 16.4/48.2 Plt 120 Na 138 K 4.2 Cl 103 CO2 27 BUN/SCr 17/0.7 BS 85 Ca 9.0 Phos 2.8 Mg 1.8 MEDICATION USE REVIEW: > Pt is not any anti-psych medications > Pt is on Phenobarbital 60mg q12hr; last level on 03/18/19 was 22.2 (15-39) within therapeutic range. > Pt is on Phenytoin 150mg q12hrs; last level on 03/18/19 was 7.7 (10-20), no need for correction, alb wnl. MD elected to continue same dose as pt has been on current regimen for years without seizures. No seizure activity noted > PRN MED USAGE: (Apr) Tylenol for pain/temp used x 0 Thorazine for hiccups used x 0 Ativan used x 0 on 0 separate days for retching Compro used x 0 days (15min before getting up in chair) Compro used x 0 for N/V (may use with ativan) Bisacodyl PRN used x 2 NEW ORDERS NOTED: > NA Rx reviewed current regimen and patient was discussed in detail with no medication concerns at this time. Patient continues stable on current regimen, no further recs at this time per rx. Will continue follow
[2019-06-08 20:00] VITALS: BP 127/79
[2019-06-08] MEDS: MIRALAX 17 GM POWD.PACK GT SCH (20:20)
[2019-06-09] MEDS: OMEPRAZOLE 20 MG CAPSULE.DR GT SCH ×2 (05:34→20:23)
[2019-06-09] MEDS: JEVITY 1.2 1000 ML LIQUID GT PRN (05:34)
[2019-06-09] MEDS: ALBUTEROL SULFATE 2.5 MG/ 0.5 ML NEBU NEB SCH ×4 (07:07→18:43)
[2019-06-09] MEDS: IPRATROPIUM BROMIDE 0.5 MG/2.5 ML NEBU NEB SCH ×4 (07:07→18:43)
[2019-06-09 08:30] VITALS: BP 142/77
[2019-06-09] MEDS: CHOLECALCIFEROL 400 UNITS TABLET GT SCH ×2 (09:00→20:23)
[2019-06-09] MEDS: Z GUARD REMEDY PASTE 57 GM TUBE TOP SCH ×2 (09:00→20:23)
[2019-06-09] MEDS: PHENOBARBITAL 30 MG/7.5 ML LIQUID UDC GT SCH ×2 (09:00→20:23)
[2019-06-09] MEDS: CETAPHIL TOP SCH ×2 (09:00→20:23)
[2019-06-09] MEDS: PHENYTOIN 100 MG/4 ML UDC GT SCH ×2 (09:00→20:23)
[2019-06-09] MEDS: PROTEIN SUPPLEMENT (PROSTAT) 30 ML LIQUID GT SCH ×2 (09:00→20:23)
[2019-06-09] MEDS: BETAMET DP 0.05% AUGM CR 15 GM CREAM.GM. TP SCH ×2 (09:01→20:23)
[2019-06-09] MEDS: VITAMINS A AND D OINT TP SCH ×3 (09:01→20:24)
[2019-06-09] MEDS: CLOTRIMAZOLE 1% CREAM 30 GM TUBE TP SCH ×2 (09:01→20:23)
[2019-06-09] MEDS: HYDROGEN PEROXIDE 3% 118 ML BOTTLE TOP SCH ×2 (09:10→18:43)
[2019-06-09 20:00] VITALS: BP 116/64
[2019-06-09] MEDS: MIRALAX 17 GM POWD.PACK GT SCH (20:23)
[2019-06-10] MEDS: OMEPRAZOLE 20 MG CAPSULE.DR GT SCH ×2 (05:41→20:04)
[2019-06-10] MEDS: JEVITY 1.2 1000 ML LIQUID GT PRN (05:42)
[2019-06-10] MEDS: ALBUTEROL SULFATE 2.5 MG/ 0.5 ML NEBU NEB SCH ×4 (08:20→19:09)
[2019-06-10] MEDS: IPRATROPIUM BROMIDE 0.5 MG/2.5 ML NEBU NEB SCH ×4 (08:20→19:09)
[2019-06-10 08:30] VITALS: BP 129/69
[2019-06-10] MEDS: PHENOBARBITAL 30 MG/7.5 ML LIQUID UDC GT SCH ×2 (08:35→20:04)
[2019-06-10] MEDS: Z GUARD REMEDY PASTE 57 GM TUBE TOP SCH ×2 (08:35→20:04)
[2019-06-10] MEDS: CETAPHIL TOP SCH ×2 (08:35→20:04)
[2019-06-10] MEDS: CHOLECALCIFEROL 400 UNITS TABLET GT SCH ×2 (08:35→20:04)
[2019-06-10] MEDS: PROTEIN SUPPLEMENT (PROSTAT) 30 ML LIQUID GT SCH ×2 (08:35→20:04)
[2019-06-10] MEDS: PHENYTOIN 100 MG/4 ML UDC GT SCH ×2 (08:35→20:04)
[2019-06-10] MEDS: VITAMINS A AND D OINT TP SCH ×3 (08:40→20:04)
[2019-06-10] MEDS: BETAMET DP 0.05% AUGM CR 15 GM CREAM.GM. TP SCH ×2 (08:40→20:04)
[2019-06-10] MEDS: CLOTRIMAZOLE 1% CREAM 30 GM TUBE TP SCH ×2 (08:40→20:04)
[2019-06-10] MEDS: HYDROGEN PEROXIDE 3% 118 ML BOTTLE TOP SCH ×2 (09:00→21:26)
[2019-06-10] MEDS: MIRALAX 17 GM POWD.PACK GT SCH (20:04)
[2019-06-10 20:45] VITALS: BP 124/76
[2019-06-11] MEDS: OMEPRAZOLE 20 MG CAPSULE.DR GT SCH ×2 (06:06→21:22)
[2019-06-11] MEDS: IPRATROPIUM BROMIDE 0.5 MG/2.5 ML NEBU NEB SCH ×4 (07:21→19:08)
[2019-06-11] MEDS: ALBUTEROL SULFATE 2.5 MG/ 0.5 ML NEBU NEB SCH ×4 (07:21→19:08)
[2019-06-11] MEDS: CETAPHIL TOP SCH ×2 (08:08→21:22)
[2019-06-11] MEDS: Z GUARD REMEDY PASTE 57 GM TUBE TOP SCH ×2 (08:08→21:22)
[2019-06-11] MEDS: PROTEIN SUPPLEMENT (PROSTAT) 30 ML LIQUID GT SCH ×2 (08:08→21:22)
[2019-06-11] MEDS: PHENYTOIN 100 MG/4 ML UDC GT SCH ×2 (08:08→21:22)
[2019-06-11] MEDS: PHENOBARBITAL 30 MG/7.5 ML LIQUID UDC GT SCH ×2 (08:08→21:22)
[2019-06-11] MEDS: CLOTRIMAZOLE 1% CREAM 30 GM TUBE TP SCH ×2 (08:08→21:22)
[2019-06-11] MEDS: BETAMET DP 0.05% AUGM CR 15 GM CREAM.GM. TP SCH ×2 (08:08→21:22)
[2019-06-11] MEDS: VITAMINS A AND D OINT TP SCH ×3 (08:08→21:23)
[2019-06-11] MEDS: CHOLECALCIFEROL 400 UNITS TABLET GT SCH ×2 (08:08→21:22)
[2019-06-11] MEDS: HYDROGEN PEROXIDE 3% 118 ML BOTTLE TOP SCH ×2 (09:00→20:46)
[2019-06-11 09:49] VITALS: BP 126/82
--- NOTE | 2019-06-11 19:10 | NUR ---
PT RECEIVED ON CONTINUOUS VENT, TRACH TUBE IN PLACE AND SECURE WITH TRACH TIE. BACK UP TRACH AND AMBU BAG AT BEDSIDE. IN LINE TX GIVEN WITH UD ALBUTEROL+UD ATROVENT ORDERED. TRACH CARE DONE. VENT CHECKED, ALARMS WORKING WELL AND AUDIBLE. WILL CONTINUE TO MONITOR.
[2019-06-11 20:45] VITALS: BP 132/81
[2019-06-11] MEDS: MIRALAX 17 GM POWD.PACK GT SCH (21:22)
[2019-06-12] MEDS: OMEPRAZOLE 20 MG CAPSULE.DR GT SCH ×2 (05:39→21:23)
[2019-06-12] MEDS: IPRATROPIUM BROMIDE 0.5 MG/2.5 ML NEBU NEB SCH ×4 (08:27→18:38)
[2019-06-12] MEDS: PHENYTOIN 100 MG/4 ML UDC GT SCH ×2 (08:27→21:23)
[2019-06-12] MEDS: HYDROGEN PEROXIDE 3% 118 ML BOTTLE TOP SCH ×2 (08:27→18:38)
[2019-06-12] MEDS: PROTEIN SUPPLEMENT (PROSTAT) 30 ML LIQUID GT SCH ×2 (08:27→21:23)
[2019-06-12] MEDS: ALBUTEROL SULFATE 2.5 MG/ 0.5 ML NEBU NEB SCH ×4 (08:27→18:38)
[2019-06-12] MEDS: CHOLECALCIFEROL 400 UNITS TABLET GT SCH ×2 (08:27→21:23)
[2019-06-12] MEDS: PHENOBARBITAL 30 MG/7.5 ML LIQUID UDC GT SCH ×2 (08:27→21:23)
[2019-06-12] MEDS: BETAMET DP 0.05% AUGM CR 15 GM CREAM.GM. TP SCH ×2 (08:28→21:24)
[2019-06-12] MEDS: CLOTRIMAZOLE 1% CREAM 30 GM TUBE TP SCH ×2 (08:28→21:24)
[2019-06-12] MEDS: Z GUARD REMEDY PASTE 57 GM TUBE TOP SCH ×2 (08:28→21:24)
[2019-06-12] MEDS: CETAPHIL TOP SCH ×2 (08:28→21:24)
[2019-06-12] MEDS: VITAMINS A AND D OINT TP SCH ×3 (08:28→21:24)
[2019-06-12 11:33] VITALS: BP 139/86
[2019-06-12] MEDS: JEVITY 1.2 1000 ML LIQUID GT PRN (16:53)
[2019-06-12 20:52] VITALS: BP 132/81
[2019-06-12] MEDS: MIRALAX 17 GM POWD.PACK GT SCH (21:23)
[2019-06-13] MEDS: OMEPRAZOLE 20 MG CAPSULE.DR GT SCH ×2 (05:42→21:07)
[2019-06-13] MEDS: ALBUTEROL SULFATE 2.5 MG/ 0.5 ML NEBU NEB SCH ×4 (08:23→19:34)
[2019-06-13] MEDS: IPRATROPIUM BROMIDE 0.5 MG/2.5 ML NEBU NEB SCH ×4 (08:23→19:34)
[2019-06-13] MEDS: VITAMINS A AND D OINT TP SCH ×3 (08:27→21:08)
[2019-06-13] MEDS: PHENOBARBITAL 30 MG/7.5 ML LIQUID UDC GT SCH ×2 (08:27→21:07)
[2019-06-13] MEDS: CLOTRIMAZOLE 1% CREAM 30 GM TUBE TP SCH ×2 (08:27→21:08)
[2019-06-13] MEDS: BETAMET DP 0.05% AUGM CR 15 GM CREAM.GM. TP SCH ×2 (08:27→21:08)
[2019-06-13] MEDS: CETAPHIL TOP SCH ×2 (08:27→21:08)
[2019-06-13] MEDS: PROTEIN SUPPLEMENT (PROSTAT) 30 ML LIQUID GT SCH ×2 (08:27→21:08)
[2019-06-13] MEDS: CHOLECALCIFEROL 400 UNITS TABLET GT SCH ×2 (08:27→21:08)
[2019-06-13] MEDS: PHENYTOIN 100 MG/4 ML UDC GT SCH ×2 (08:27→21:07)
[2019-06-13] MEDS: Z GUARD REMEDY PASTE 57 GM TUBE TOP SCH ×2 (08:27→21:08)
[2019-06-13 08:30] VITALS: BP 119/66
[2019-06-13] MEDS: HYDROGEN PEROXIDE 3% 118 ML BOTTLE TOP SCH ×2 (09:00→21:50)
[2019-06-13] MEDS: JEVITY 1.2 1000 ML LIQUID GT PRN (13:02)
[2019-06-13 21:06] VITALS: BP 122/85
[2019-06-13] MEDS: MIRALAX 17 GM POWD.PACK GT SCH (21:07)
[2019-06-14] MEDS: JEVITY 1.2 1000 ML LIQUID GT PRN (03:47)
[2019-06-14] MEDS: OMEPRAZOLE 20 MG CAPSULE.DR GT SCH ×2 (05:50→20:57)
[2019-06-14] MEDS: ALBUTEROL SULFATE 2.5 MG/ 0.5 ML NEBU NEB SCH ×4 (07:55→19:05)
[2019-06-14] MEDS: IPRATROPIUM BROMIDE 0.5 MG/2.5 ML NEBU NEB SCH ×4 (07:55→19:05)
[2019-06-14 08:30] VITALS: BP 127/74
[2019-06-14] MEDS: VITAMINS A AND D OINT TP SCH ×3 (09:00→20:58)
[2019-06-14] MEDS: PROTEIN SUPPLEMENT (PROSTAT) 30 ML LIQUID GT SCH ×2 (09:00→20:57)
[2019-06-14] MEDS: CHOLECALCIFEROL 400 UNITS TABLET GT SCH ×2 (09:00→20:57)
[2019-06-14] MEDS: HYDROGEN PEROXIDE 3% 118 ML BOTTLE TOP SCH ×2 (09:00→21:31)
[2019-06-14] MEDS: CETAPHIL TOP SCH ×2 (09:00→20:58)
[2019-06-14] MEDS: Z GUARD REMEDY PASTE 57 GM TUBE TOP SCH ×2 (09:00→20:58)
[2019-06-14] MEDS: BETAMET DP 0.05% AUGM CR 15 GM CREAM.GM. TP SCH ×2 (09:00→20:58)
[2019-06-14] MEDS: PHENOBARBITAL 30 MG/7.5 ML LIQUID UDC GT SCH ×2 (09:00→20:56)
[2019-06-14] MEDS: CLOTRIMAZOLE 1% CREAM 30 GM TUBE TP SCH ×2 (09:00→20:58)
[2019-06-14] MEDS: PHENYTOIN 100 MG/4 ML UDC GT SCH ×2 (09:00→20:56)
--- NOTE | 2019-06-14 19:06 | NUR ---
Received pt on HT-50 ventilator with the following settings of AC-14, Vt-700, FIO2-35%, trached with Shiley#8 XLT Distal trach, which is in the place and secure. No distress noted. Airway care done, pt responded to physical stimuli. In-line HHN tx with 2.5mg Albuterol+0.5mg Atrovent given, pt tolerated well. HME changed. Resus. bag at bedside. Vent and alarms checked and reset.
[2019-06-14] MEDS: MIRALAX 17 GM POWD.PACK GT SCH (20:56)
[2019-06-14 21:25] VITALS: BP 131/87
[2019-06-15] MEDS: OMEPRAZOLE 20 MG CAPSULE.DR GT SCH ×2 (05:39→21:02)
[2019-06-15] MEDS: JEVITY 1.2 1000 ML LIQUID GT PRN (07:04)
[2019-06-15] MEDS: ALBUTEROL SULFATE 2.5 MG/ 0.5 ML NEBU NEB SCH ×4 (07:42→18:43)
[2019-06-15] MEDS: IPRATROPIUM BROMIDE 0.5 MG/2.5 ML NEBU NEB SCH ×4 (07:42→18:43)
[2019-06-15] MEDS: HYDROGEN PEROXIDE 3% 118 ML BOTTLE TOP SCH ×2 (08:11→18:43)
--- NOTE | 2019-06-15 08:30 | NUR ---
Seen and examined by Graeme BELL,no new orders .
[2019-06-15] MEDS: CHOLECALCIFEROL 400 UNITS TABLET GT SCH ×2 (09:27→21:02)
[2019-06-15] MEDS: PHENYTOIN 100 MG/4 ML UDC GT SCH ×2 (09:27→21:02)
[2019-06-15] MEDS: CETAPHIL TOP SCH ×2 (09:27→21:03)
[2019-06-15] MEDS: PHENOBARBITAL 30 MG/7.5 ML LIQUID UDC GT SCH ×2 (09:27→21:02)
[2019-06-15] MEDS: PROTEIN SUPPLEMENT (PROSTAT) 30 ML LIQUID GT SCH ×2 (09:27→21:02)
[2019-06-15] MEDS: Z GUARD REMEDY PASTE 57 GM TUBE TOP SCH ×2 (09:27→21:03)
[2019-06-15] MEDS: VITAMINS A AND D OINT TP SCH ×3 (09:28→21:03)
[2019-06-15] MEDS: CLOTRIMAZOLE 1% CREAM 30 GM TUBE TP SCH ×2 (09:28→21:03)
[2019-06-15] MEDS: BETAMET DP 0.05% AUGM CR 15 GM CREAM.GM. TP SCH ×2 (09:28→21:03)
[2019-06-15 11:44] VITALS: BP 115/77
--- NOTE | 2019-06-15 15:26 | NUR ---
This SW and Subacute International Logistics Analyst Cyril Romero called patient's mother KAUSHIK [phone] and informed her that per advisement from [facility], [facility], and CDC, visitation restrictions must continue to remain in place for all assisted care facilities in order to protect the health and safety of residents and staff. Therefore [facility] will continue to restrict all visitations, until further notice. KAUSHIK expressed understanding. MCKENNA checked in with KAUSHIK to see if she had any questions or concerns at this time, and KAUSHIK stated that although it is hard not to be able to see her son, she had no concerns at this time and thanked the staff for all their work.
[2019-06-15 20:42] VITALS: BP 130/78
[2019-06-15] MEDS: MIRALAX 17 GM POWD.PACK GT SCH (21:02)
[2019-06-16] MEDS: JEVITY 1.2 1000 ML LIQUID GT PRN (04:22)
[2019-06-16] MEDS: OMEPRAZOLE 20 MG CAPSULE.DR GT SCH ×2 (05:49→21:42)
[2019-06-16] MEDS: IPRATROPIUM BROMIDE 0.5 MG/2.5 ML NEBU NEB SCH ×4 (07:30→19:28)
[2019-06-16] MEDS: ALBUTEROL SULFATE 2.5 MG/ 0.5 ML NEBU NEB SCH ×4 (07:30→19:28)
[2019-06-16 08:03] VITALS: BP 116/56
[2019-06-16] MEDS: CHOLECALCIFEROL 400 UNITS TABLET GT SCH ×2 (08:46→21:42)
[2019-06-16] MEDS: PROTEIN SUPPLEMENT (PROSTAT) 30 ML LIQUID GT SCH ×2 (08:46→21:42)
[2019-06-16] MEDS: PHENOBARBITAL 30 MG/7.5 ML LIQUID UDC GT SCH ×2 (08:46→21:42)
[2019-06-16] MEDS: PHENYTOIN 100 MG/4 ML UDC GT SCH ×2 (08:46→21:42)
[2019-06-16] MEDS: BETAMET DP 0.05% AUGM CR 15 GM CREAM.GM. TP SCH ×2 (09:00→21:43)
[2019-06-16] MEDS: CETAPHIL TOP SCH ×2 (09:00→21:42)
[2019-06-16] MEDS: VITAMINS A AND D OINT TP SCH ×3 (09:00→21:43)
[2019-06-16] MEDS: CLOTRIMAZOLE 1% CREAM 30 GM TUBE TP SCH ×2 (09:00→21:43)
[2019-06-16] MEDS: Z GUARD REMEDY PASTE 57 GM TUBE TOP SCH ×2 (09:00→21:43)
[2019-06-16] MEDS: HYDROGEN PEROXIDE 3% 118 ML BOTTLE TOP SCH ×2 (09:39→21:47)
--- NOTE | 2019-06-16 14:00 | NUR ---
Superintendent Custodian Janitor care done by Dr Rivas.
[2019-06-16 20:00] VITALS: BP 132/79
[2019-06-16] MEDS: MIRALAX 17 GM POWD.PACK GT SCH (21:42)
[2019-06-17] MEDS: OMEPRAZOLE 20 MG CAPSULE.DR GT SCH ×2 (05:41→21:45)
[2019-06-17] MEDS: IPRATROPIUM BROMIDE 0.5 MG/2.5 ML NEBU NEB SCH ×4 (08:10→19:19)
[2019-06-17] MEDS: ALBUTEROL SULFATE 2.5 MG/ 0.5 ML NEBU NEB SCH ×4 (08:10→19:19)
[2019-06-17] MEDS: PROTEIN SUPPLEMENT (PROSTAT) 30 ML LIQUID GT SCH ×2 (08:23→21:45)
[2019-06-17] MEDS: PHENYTOIN 100 MG/4 ML UDC GT SCH ×2 (08:23→21:45)
[2019-06-17] MEDS: PHENOBARBITAL 30 MG/7.5 ML LIQUID UDC GT SCH ×2 (08:23→21:45)
[2019-06-17] MEDS: CHOLECALCIFEROL 400 UNITS TABLET GT SCH ×2 (08:23→21:46)
[2019-06-17] MEDS: BETAMET DP 0.05% AUGM CR 15 GM CREAM.GM. TP SCH ×2 (09:46→21:46)
[2019-06-17] MEDS: CETAPHIL TOP SCH ×2 (09:46→21:46)
[2019-06-17] MEDS: CLOTRIMAZOLE 1% CREAM 30 GM TUBE TP SCH ×2 (09:46→21:46)
[2019-06-17] MEDS: Z GUARD REMEDY PASTE 57 GM TUBE TOP SCH ×2 (09:46→21:46)
[2019-06-17] MEDS: VITAMINS A AND D OINT TP SCH ×3 (09:47→21:46)
[2019-06-17] MEDS: HYDROGEN PEROXIDE 3% 118 ML BOTTLE TOP SCH ×2 (09:55→21:49)
[2019-06-17 20:00] VITALS: BP 115/76
[2019-06-17] MEDS: MIRALAX 17 GM POWD.PACK GT SCH (21:45)
[2019-06-18] MEDS: JEVITY 1.2 1000 ML LIQUID GT PRN (03:02)
[2019-06-18] MEDS: OMEPRAZOLE 20 MG CAPSULE.DR GT SCH ×2 (06:14→21:02)
[2019-06-18] MEDS: PHENOBARBITAL 30 MG/7.5 ML LIQUID UDC GT SCH ×2 (08:11→21:02)
[2019-06-18] MEDS: PHENYTOIN 100 MG/4 ML UDC GT SCH ×2 (08:11→21:02)
[2019-06-18] MEDS: BETAMET DP 0.05% AUGM CR 15 GM CREAM.GM. TP SCH ×2 (08:12→21:03)
[2019-06-18] MEDS: CETAPHIL TOP SCH ×2 (08:12→21:02)
[2019-06-18] MEDS: CLOTRIMAZOLE 1% CREAM 30 GM TUBE TP SCH ×2 (08:12→21:03)
[2019-06-18] MEDS: CHOLECALCIFEROL 400 UNITS TABLET GT SCH ×2 (08:12→21:02)
[2019-06-18] MEDS: PROTEIN SUPPLEMENT (PROSTAT) 30 ML LIQUID GT SCH ×2 (08:12→21:02)
[2019-06-18] MEDS: Z GUARD REMEDY PASTE 57 GM TUBE TOP SCH ×2 (08:12→21:02)
[2019-06-18] MEDS: VITAMINS A AND D OINT TP SCH ×3 (08:12→21:03)
[2019-06-18] MEDS: IPRATROPIUM BROMIDE 0.5 MG/2.5 ML NEBU NEB SCH ×4 (08:20→19:03)
[2019-06-18] MEDS: ALBUTEROL SULFATE 2.5 MG/ 0.5 ML NEBU NEB SCH ×4 (08:20→19:03)
[2019-06-18] MEDS: HYDROGEN PEROXIDE 3% 118 ML BOTTLE TOP SCH ×2 (09:13→21:31)
--- NOTE | 2019-06-18 10:01 | NUR ---
SEEN BY LEOBARDO FENTON N.P. AND WITH NNO.
[2019-06-18 20:00] VITALS: BP 126/86
[2019-06-18] MEDS: MIRALAX 17 GM POWD.PACK GT SCH (21:02)
[2019-06-19] MEDS: JEVITY 1.2 1000 ML LIQUID GT PRN ×2 (00:08→17:35)
[2019-06-19] MEDS: OMEPRAZOLE 20 MG CAPSULE.DR GT SCH ×2 (06:05→21:31)
[2019-06-19] MEDS: IPRATROPIUM BROMIDE 0.5 MG/2.5 ML NEBU NEB SCH ×4 (07:40→19:18)
[2019-06-19] MEDS: ALBUTEROL SULFATE 2.5 MG/ 0.5 ML NEBU NEB SCH ×4 (07:40→19:18)
[2019-06-19] MEDS: CLOTRIMAZOLE 1% CREAM 30 GM TUBE TP SCH ×2 (08:25→21:31)
[2019-06-19] MEDS: VITAMINS A AND D OINT TP SCH ×3 (08:25→21:32)
[2019-06-19] MEDS: PHENOBARBITAL 30 MG/7.5 ML LIQUID UDC GT SCH ×2 (08:25→21:31)
[2019-06-19] MEDS: PHENYTOIN 100 MG/4 ML UDC GT SCH ×2 (08:25→21:31)
[2019-06-19] MEDS: CHOLECALCIFEROL 400 UNITS TABLET GT SCH ×2 (08:25→21:31)
[2019-06-19] MEDS: Z GUARD REMEDY PASTE 57 GM TUBE TOP SCH ×2 (08:25→21:31)
[2019-06-19] MEDS: CETAPHIL TOP SCH ×2 (08:25→21:31)
[2019-06-19] MEDS: PROTEIN SUPPLEMENT (PROSTAT) 30 ML LIQUID GT SCH ×2 (08:25→21:31)
[2019-06-19] MEDS: HYDROGEN PEROXIDE 3% 118 ML BOTTLE TOP SCH ×2 (08:25→21:31)
[2019-06-19] MEDS: BETAMET DP 0.05% AUGM CR 15 GM CREAM.GM. TP SCH ×2 (08:25→21:31)
[2019-06-19 11:20] VITALS: BP 152/54
[2019-06-19 20:43] VITALS: BP 130/75
[2019-06-19] MEDS: MIRALAX 17 GM POWD.PACK GT SCH (21:31)
--- NOTE | 2019-06-19 21:46 | NUR ---
Seen by Fanny No NP with no new orders.
[2019-06-20] MEDS: OMEPRAZOLE 20 MG CAPSULE.DR GT SCH ×2 (05:36→20:54)
[2019-06-20] MEDS: ALBUTEROL SULFATE 2.5 MG/ 0.5 ML NEBU NEB SCH ×4 (07:10→19:10)
[2019-06-20] MEDS: IPRATROPIUM BROMIDE 0.5 MG/2.5 ML NEBU NEB SCH ×4 (07:10→19:10)
[2019-06-20 08:00] VITALS: BP 124/76
[2019-06-20] MEDS: CETAPHIL TOP SCH ×2 (08:33→20:55)
[2019-06-20] MEDS: PROTEIN SUPPLEMENT (PROSTAT) 30 ML LIQUID GT SCH ×2 (08:33→20:54)
[2019-06-20] MEDS: CHOLECALCIFEROL 400 UNITS TABLET GT SCH ×2 (08:33→20:54)
[2019-06-20] MEDS: PHENYTOIN 100 MG/4 ML UDC GT SCH ×2 (08:33→20:54)
[2019-06-20] MEDS: PHENOBARBITAL 30 MG/7.5 ML LIQUID UDC GT SCH ×2 (08:33→20:54)
[2019-06-20] MEDS: VITAMINS A AND D OINT TP SCH ×3 (08:34→20:55)
[2019-06-20] MEDS: Z GUARD REMEDY PASTE 57 GM TUBE TOP SCH ×2 (08:34→20:55)
[2019-06-20] MEDS: CLOTRIMAZOLE 1% CREAM 30 GM TUBE TP SCH ×2 (08:34→20:55)
[2019-06-20] MEDS: BETAMET DP 0.05% AUGM CR 15 GM CREAM.GM. TP SCH ×2 (08:34→20:55)
[2019-06-20] MEDS: HYDROGEN PEROXIDE 3% 118 ML BOTTLE TOP SCH ×2 (09:10→21:45)
[2019-06-20] MEDS: JEVITY 1.2 1000 ML LIQUID GT PRN (17:50)
--- NOTE | 2019-06-20 19:10 | NUR ---
Received pt on HT-50 ventilator with the following settings of AC-14, Vt-700, FIO2-35%, trached with Shiley#8 XLT Distal trach, which is in the place and secure. No s/s of respiratory distress noted. Airway care done, pt responded to physical stimuli. In-line HHN tx with 2.5mg Albuterol+0.5mg Atrovent given, pt tolerated well. HME changed. Resus. bag at bedside. Vent and alarms checked and reset.
[2019-06-20] MEDS: MIRALAX 17 GM POWD.PACK GT SCH (20:54)
[2019-06-20 21:07] VITALS: BP 136/83
[2019-06-21] MEDS: OMEPRAZOLE 20 MG CAPSULE.DR GT SCH ×2 (05:31→21:35)
[2019-06-21 08:00] VITALS: BP 138/84
[2019-06-21] MEDS: ALBUTEROL SULFATE 2.5 MG/ 0.5 ML NEBU NEB SCH ×4 (08:20→19:17)
[2019-06-21] MEDS: IPRATROPIUM BROMIDE 0.5 MG/2.5 ML NEBU NEB SCH ×4 (08:20→19:17)
[2019-06-21] MEDS: HYDROGEN PEROXIDE 3% 118 ML BOTTLE TOP SCH ×2 (09:08→21:10)
[2019-06-21] MEDS: CLOTRIMAZOLE 1% CREAM 30 GM TUBE TP SCH ×2 (09:44→21:34)
[2019-06-21] MEDS: PHENOBARBITAL 30 MG/7.5 ML LIQUID UDC GT SCH ×2 (09:44→21:32)
[2019-06-21] MEDS: CETAPHIL TOP SCH ×2 (09:44→21:36)
[2019-06-21] MEDS: PROTEIN SUPPLEMENT (PROSTAT) 30 ML LIQUID GT SCH ×2 (09:44→21:33)
[2019-06-21] MEDS: BETAMET DP 0.05% AUGM CR 15 GM CREAM.GM. TP SCH ×2 (09:44→21:34)
[2019-06-21] MEDS: VITAMINS A AND D OINT TP SCH ×3 (09:44→21:34)
[2019-06-21] MEDS: PHENYTOIN 100 MG/4 ML UDC GT SCH ×2 (09:44→21:28)
[2019-06-21] MEDS: CHOLECALCIFEROL 400 UNITS TABLET GT SCH ×2 (09:44→21:34)
[2019-06-21] MEDS: Z GUARD REMEDY PASTE 57 GM TUBE TOP SCH ×2 (09:44→21:34)
[2019-06-21] MEDS: MIRALAX 17 GM POWD.PACK GT SCH (21:35)
[2019-06-21 21:59] VITALS: BP 134/76
[2019-06-22] MEDS: OMEPRAZOLE 20 MG CAPSULE.DR GT SCH ×2 (05:10→20:44)
[2019-06-22] MEDS: ALBUTEROL SULFATE 2.5 MG/ 0.5 ML NEBU NEB SCH ×4 (07:28→19:08)
[2019-06-22] MEDS: IPRATROPIUM BROMIDE 0.5 MG/2.5 ML NEBU NEB SCH ×4 (07:28→19:08)
[2019-06-22 08:00] VITALS: BP 139/86
[2019-06-22] MEDS: Z GUARD REMEDY PASTE 57 GM TUBE TOP SCH ×2 (09:00→20:45)
[2019-06-22] MEDS: PROTEIN SUPPLEMENT (PROSTAT) 30 ML LIQUID GT SCH ×2 (09:00→20:44)
[2019-06-22] MEDS: CLOTRIMAZOLE 1% CREAM 30 GM TUBE TP SCH ×2 (09:00→20:46)
[2019-06-22] MEDS: PHENYTOIN 100 MG/4 ML UDC GT SCH ×2 (09:00→20:44)
[2019-06-22] MEDS: CETAPHIL TOP SCH ×2 (09:00→20:45)
[2019-06-22] MEDS: PHENOBARBITAL 30 MG/7.5 ML LIQUID UDC GT SCH ×2 (09:00→20:44)
[2019-06-22] MEDS: VITAMINS A AND D OINT TP SCH ×3 (09:00→20:46)
[2019-06-22] MEDS: BETAMET DP 0.05% AUGM CR 15 GM CREAM.GM. TP SCH ×2 (09:00→20:46)
[2019-06-22] MEDS: CHOLECALCIFEROL 400 UNITS TABLET GT SCH ×2 (09:00→20:45)
[2019-06-22] MEDS: HYDROGEN PEROXIDE 3% 118 ML BOTTLE TOP SCH ×2 (09:05→20:48)
[2019-06-22] MEDS: JEVITY 1.2 1000 ML LIQUID GT PRN (10:28)
[2019-06-22] MEDS: MIRALAX 17 GM POWD.PACK GT SCH (20:44)
[2019-06-22 21:26] VITALS: BP 138/96
[2019-06-23] MEDS: OMEPRAZOLE 20 MG CAPSULE.DR GT SCH ×2 (06:05→20:14)
[2019-06-23] MEDS: ALBUTEROL SULFATE 2.5 MG/ 0.5 ML NEBU NEB SCH ×4 (07:24→19:11)
[2019-06-23] MEDS: IPRATROPIUM BROMIDE 0.5 MG/2.5 ML NEBU NEB SCH ×4 (07:24→19:11)
[2019-06-23 08:00] VITALS: BP 142/91
[2019-06-23] MEDS: PHENOBARBITAL 30 MG/7.5 ML LIQUID UDC GT SCH ×2 (08:18→20:14)
[2019-06-23] MEDS: PHENYTOIN 100 MG/4 ML UDC GT SCH ×2 (08:18→20:14)
[2019-06-23] MEDS: PROTEIN SUPPLEMENT (PROSTAT) 30 ML LIQUID GT SCH ×2 (08:20→20:14)
[2019-06-23] MEDS: CHOLECALCIFEROL 400 UNITS TABLET GT SCH ×2 (08:20→20:15)
[2019-06-23] MEDS: CLOTRIMAZOLE 1% CREAM 30 GM TUBE TP SCH (09:00)
[2019-06-23] MEDS: HYDROGEN PEROXIDE 3% 118 ML BOTTLE TOP SCH ×2 (09:00→21:20)
[2019-06-23] MEDS: BETAMET DP 0.05% AUGM CR 15 GM CREAM.GM. TP SCH (09:00)
[2019-06-23] MEDS: CETAPHIL TOP SCH ×2 (09:00→20:22)
[2019-06-23] MEDS: Z GUARD REMEDY PASTE 57 GM TUBE TOP SCH ×2 (09:00→20:22)
[2019-06-23] MEDS: VITAMINS A AND D OINT TP SCH ×3 (09:00→20:22)
[2019-06-23] MEDS: MIRALAX 17 GM POWD.PACK GT SCH (20:14)
[2019-06-23 22:19] VITALS: BP 125/71
[2019-06-24] MEDS: JEVITY 1.2 1000 ML LIQUID GT PRN (05:35)
[2019-06-24] MEDS: OMEPRAZOLE 20 MG CAPSULE.DR GT SCH ×2 (05:35→21:58)
[2019-06-24] MEDS: ALBUTEROL SULFATE 2.5 MG/ 0.5 ML NEBU NEB SCH ×4 (08:00→19:13)
[2019-06-24] MEDS: IPRATROPIUM BROMIDE 0.5 MG/2.5 ML NEBU NEB SCH ×4 (08:00→19:13)
[2019-06-24 08:30] VITALS: BP 134/85
[2019-06-24] MEDS: PHENYTOIN 100 MG/4 ML UDC GT SCH ×2 (08:47→21:58)
[2019-06-24] MEDS: PHENOBARBITAL 30 MG/7.5 ML LIQUID UDC GT SCH ×2 (08:48→21:58)
[2019-06-24] MEDS: CHOLECALCIFEROL 400 UNITS TABLET GT SCH ×2 (08:49→21:58)
[2019-06-24] MEDS: PROTEIN SUPPLEMENT (PROSTAT) 30 ML LIQUID GT SCH ×2 (08:49→21:58)
[2019-06-24] MEDS: CETAPHIL TOP SCH ×2 (09:00→21:58)
[2019-06-24] MEDS: Z GUARD REMEDY PASTE 57 GM TUBE TOP SCH ×2 (09:00→21:58)
[2019-06-24] MEDS: VITAMINS A AND D OINT TP SCH ×3 (09:00→21:58)
[2019-06-24] MEDS: HYDROGEN PEROXIDE 3% 118 ML BOTTLE TOP SCH ×2 (09:10→20:34)
[2019-06-24 20:10] VITALS: BP 143/82
[2019-06-24] MEDS: MIRALAX 17 GM POWD.PACK GT SCH (21:58)
[2019-06-25] MEDS: JEVITY 1.2 1000 ML LIQUID GT PRN ×2 (02:03→23:14)
[2019-06-25] MEDS: OMEPRAZOLE 20 MG CAPSULE.DR GT SCH ×2 (06:00→21:03)
[2019-06-25] MEDS: IPRATROPIUM BROMIDE 0.5 MG/2.5 ML NEBU NEB SCH ×4 (07:27→19:27)
[2019-06-25] MEDS: ALBUTEROL SULFATE 2.5 MG/ 0.5 ML NEBU NEB SCH ×4 (07:27→19:27)
[2019-06-25 08:30] VITALS: BP 152/87
[2019-06-25] MEDS: PHENYTOIN 100 MG/4 ML UDC GT SCH ×2 (08:57→21:03)
[2019-06-25] MEDS: PHENOBARBITAL 30 MG/7.5 ML LIQUID UDC GT SCH ×2 (08:57→21:03)
[2019-06-25] MEDS: CHOLECALCIFEROL 400 UNITS TABLET GT SCH ×2 (08:59→21:03)
[2019-06-25] MEDS: VITAMINS A AND D OINT TP SCH ×3 (08:59→21:03)
[2019-06-25] MEDS: PROTEIN SUPPLEMENT (PROSTAT) 30 ML LIQUID GT SCH ×2 (08:59→21:03)
[2019-06-25] MEDS: CETAPHIL TOP SCH ×2 (08:59→21:03)
[2019-06-25] MEDS: Z GUARD REMEDY PASTE 57 GM TUBE TOP SCH ×2 (08:59→21:03)
[2019-06-25] MEDS: HYDROGEN PEROXIDE 3% 118 ML BOTTLE TOP SCH ×2 (09:22→21:10)
[2019-06-25 20:27] VITALS: BP 142/72
[2019-06-25] MEDS: MIRALAX 17 GM POWD.PACK GT SCH (21:03)
[2019-06-26] MEDS: OMEPRAZOLE 20 MG CAPSULE.DR GT SCH ×2 (05:32→20:55)
[2019-06-26 08:00] VITALS: BP 120/66
[2019-06-26] MEDS: IPRATROPIUM BROMIDE 0.5 MG/2.5 ML NEBU NEB SCH ×4 (08:21→19:10)
[2019-06-26] MEDS: ALBUTEROL SULFATE 2.5 MG/ 0.5 ML NEBU NEB SCH ×4 (08:21→19:10)
[2019-06-26] MEDS: HYDROGEN PEROXIDE 3% 118 ML BOTTLE TOP SCH ×2 (08:21→21:41)
[2019-06-26] MEDS: PHENYTOIN 100 MG/4 ML UDC GT SCH ×2 (09:09→20:55)
[2019-06-26] MEDS: PHENOBARBITAL 30 MG/7.5 ML LIQUID UDC GT SCH ×2 (09:09→20:55)
[2019-06-26] MEDS: CETAPHIL TOP SCH ×2 (09:11→20:55)
[2019-06-26] MEDS: CHOLECALCIFEROL 400 UNITS TABLET GT SCH ×2 (09:11→20:55)
[2019-06-26] MEDS: VITAMINS A AND D OINT TP SCH ×3 (09:11→20:55)
[2019-06-26] MEDS: Z GUARD REMEDY PASTE 57 GM TUBE TOP SCH ×2 (09:11→20:55)
[2019-06-26] MEDS: PROTEIN SUPPLEMENT (PROSTAT) 30 ML LIQUID GT SCH ×2 (09:11→20:55)
[2019-06-26 20:19] VITALS: BP 134/89
[2019-06-26] MEDS: MIRALAX 17 GM POWD.PACK GT SCH (20:55)
[2019-06-26] MEDS: JEVITY 1.2 1000 ML LIQUID GT PRN (23:20)
[2019-06-27] MEDS: OMEPRAZOLE 20 MG CAPSULE.DR GT SCH ×2 (05:43→20:54)
[2019-06-27] MEDS: ALBUTEROL SULFATE 2.5 MG/ 0.5 ML NEBU NEB SCH ×4 (07:10→19:13)
[2019-06-27] MEDS: IPRATROPIUM BROMIDE 0.5 MG/2.5 ML NEBU NEB SCH ×4 (07:10→19:13)
[2019-06-27 08:02] VITALS: BP 135/80
[2019-06-27] MEDS: PHENYTOIN 100 MG/4 ML UDC GT SCH ×2 (08:56→20:53)
[2019-06-27] MEDS: PHENOBARBITAL 30 MG/7.5 ML LIQUID UDC GT SCH ×2 (08:57→20:53)
[2019-06-27] MEDS: CHOLECALCIFEROL 400 UNITS TABLET GT SCH ×2 (08:57→20:54)
[2019-06-27] MEDS: PROTEIN SUPPLEMENT (PROSTAT) 30 ML LIQUID GT SCH ×2 (08:57→20:54)
[2019-06-27] MEDS: VITAMINS A AND D OINT TP SCH ×3 (09:37→20:54)
[2019-06-27] MEDS: CETAPHIL TOP SCH ×2 (09:37→20:54)
[2019-06-27] MEDS: Z GUARD REMEDY PASTE 57 GM TUBE TOP SCH ×2 (09:37→20:54)
[2019-06-27] MEDS: HYDROGEN PEROXIDE 3% 118 ML BOTTLE TOP SCH ×2 (11:10→21:03)
[2019-06-27] MEDS: JEVITY 1.2 1000 ML LIQUID GT PRN (17:05)
[2019-06-27 20:38] VITALS: BP 127/83
[2019-06-27] MEDS: MIRALAX 17 GM POWD.PACK GT SCH (20:53)
[2019-06-28] MEDS: OMEPRAZOLE 20 MG CAPSULE.DR GT SCH ×2 (05:31→20:37)
[2019-06-28] MEDS: IPRATROPIUM BROMIDE 0.5 MG/2.5 ML NEBU NEB SCH ×4 (07:25→19:32)
[2019-06-28] MEDS: ALBUTEROL SULFATE 2.5 MG/ 0.5 ML NEBU NEB SCH ×4 (07:25→19:32)
[2019-06-28] MEDS: HYDROGEN PEROXIDE 3% 118 ML BOTTLE TOP SCH ×2 (08:15→20:38)
[2019-06-28] MEDS: PROTEIN SUPPLEMENT (PROSTAT) 30 ML LIQUID GT SCH ×2 (08:44→20:37)
[2019-06-28] MEDS: Z GUARD REMEDY PASTE 57 GM TUBE TOP SCH ×2 (08:45→20:39)
[2019-06-28] MEDS: VITAMINS A AND D OINT TP SCH ×3 (08:45→20:39)
[2019-06-28] MEDS: CETAPHIL TOP SCH ×2 (08:45→20:38)
[2019-06-28] MEDS: CHOLECALCIFEROL 400 UNITS TABLET GT SCH ×2 (08:45→20:38)
[2019-06-28] MEDS: PHENOBARBITAL 30 MG/7.5 ML LIQUID UDC GT SCH ×2 (09:01→20:37)
[2019-06-28] MEDS: PHENYTOIN 100 MG/4 ML UDC GT SCH ×2 (09:01→20:34)
[2019-06-28 10:44] VITALS: BP 142/81
--- NOTE | 2019-06-28 19:32 | NUR ---
Received pt on HT-50 ventilator with the following settings of AC-14, Vt-700, FIO2-35%, trached with Shiley#8 XLT Distal trach, which is in the place and secure. No respiratory distress noted. Airway care done, pt responded to physical stimuli. In-line HHN tx with 2.5mg Albuterol+0.5mg Atrovent given, pt tolerated well. HME changed. Resus. bag and back up trach at bedside. Vent and alarms checked and reset.
[2019-06-28 20:10] VITALS: BP 152/89
[2019-06-28] MEDS: MIRALAX 17 GM POWD.PACK GT SCH (20:34)
[2019-06-29] MEDS: OMEPRAZOLE 20 MG CAPSULE.DR GT SCH ×2 (06:10→20:36)
[2019-06-29] MEDS: ALBUTEROL SULFATE 2.5 MG/ 0.5 ML NEBU NEB SCH ×4 (07:57→19:18)
[2019-06-29] MEDS: IPRATROPIUM BROMIDE 0.5 MG/2.5 ML NEBU NEB SCH ×4 (07:57→19:18)
[2019-06-29 08:00] VITALS: BP 124/74
[2019-06-29] MEDS: HYDROGEN PEROXIDE 3% 118 ML BOTTLE TOP SCH ×2 (08:34→20:09)
[2019-06-29] MEDS: PROTEIN SUPPLEMENT (PROSTAT) 30 ML LIQUID GT SCH ×2 (09:00→20:38)
[2019-06-29] MEDS: Z GUARD REMEDY PASTE 57 GM TUBE TOP SCH ×2 (09:00→20:38)
[2019-06-29] MEDS: CHOLECALCIFEROL 400 UNITS TABLET GT SCH ×2 (09:00→20:38)
[2019-06-29] MEDS: PHENYTOIN 100 MG/4 ML UDC GT SCH ×2 (09:00→20:32)
[2019-06-29] MEDS: CETAPHIL TOP SCH ×2 (09:00→20:38)
[2019-06-29] MEDS: VITAMINS A AND D OINT TP SCH ×3 (09:00→20:38)
[2019-06-29] MEDS: PHENOBARBITAL 30 MG/7.5 ML LIQUID UDC GT SCH ×2 (09:00→20:35)
[2019-06-29] MEDS: JEVITY 1.2 1000 ML LIQUID GT PRN (11:49)
[2019-06-29 20:10] VITALS: BP 128/79
[2019-06-29] MEDS: MIRALAX 17 GM POWD.PACK GT SCH (20:33)
[2019-06-30] MEDS: JEVITY 1.2 1000 ML LIQUID GT PRN (04:30)
[2019-06-30] MEDS: OMEPRAZOLE 20 MG CAPSULE.DR GT SCH ×2 (05:48→20:21)
[2019-06-30] MEDS: ALBUTEROL SULFATE 2.5 MG/ 0.5 ML NEBU NEB SCH ×4 (08:03→19:28)
[2019-06-30] MEDS: IPRATROPIUM BROMIDE 0.5 MG/2.5 ML NEBU NEB SCH ×4 (08:03→19:28)
[2019-06-30 08:30] VITALS: BP 115/75
[2019-06-30] MEDS: HYDROGEN PEROXIDE 3% 118 ML BOTTLE TOP SCH ×2 (09:00→21:41)
[2019-06-30] MEDS: CETAPHIL TOP SCH ×2 (09:12→20:23)
[2019-06-30] MEDS: VITAMINS A AND D OINT TP SCH ×3 (09:12→20:23)
[2019-06-30] MEDS: Z GUARD REMEDY PASTE 57 GM TUBE TOP SCH ×2 (09:12→20:23)
[2019-06-30] MEDS: PHENOBARBITAL 30 MG/7.5 ML LIQUID UDC GT SCH ×2 (09:12→20:20)
[2019-06-30] MEDS: PROTEIN SUPPLEMENT (PROSTAT) 30 ML LIQUID GT SCH ×2 (09:12→20:21)
[2019-06-30] MEDS: CHOLECALCIFEROL 400 UNITS TABLET GT SCH ×2 (09:12→20:22)
[2019-06-30] MEDS: PHENYTOIN 100 MG/4 ML UDC GT SCH ×2 (09:12→21:56)
[2019-06-30 19:57] VITALS: BP 134/82
[2019-06-30] MEDS: MIRALAX 17 GM POWD.PACK GT SCH (20:19)
--- NOTE | 2019-07-01 01:25 | NUR ---
PT on cont ht 50 vent with shijoana trach in place and secured, with same current vent settings, pt does assist at times, with strong cough effort, suctioned light pale ,neb inline x 1, suction mouth with alan ojeda well, all vent alarms good, check cuff, change hme, no vent changes made, pt stable. Kiki PADILLAP Addendum: 07/01/19 at 0127 by NA CARNES RT Amended: Links added.
[2019-07-01] MEDS: JEVITY 1.2 1000 ML LIQUID GT PRN ×2 (05:30→11:52)
[2019-07-01] MEDS: OMEPRAZOLE 20 MG CAPSULE.DR GT SCH ×2 (05:56→20:31)
[2019-07-01] MEDS: IPRATROPIUM BROMIDE 0.5 MG/2.5 ML NEBU NEB SCH ×4 (07:00→19:25)
[2019-07-01] MEDS: ALBUTEROL SULFATE 2.5 MG/ 0.5 ML NEBU NEB SCH ×4 (07:00→19:25)
[2019-07-01] MEDS: PROTEIN SUPPLEMENT (PROSTAT) 30 ML LIQUID GT SCH ×2 (08:25→20:32)
[2019-07-01] MEDS: PHENOBARBITAL 30 MG/7.5 ML LIQUID UDC GT SCH ×2 (08:25→20:31)
[2019-07-01] MEDS: PHENYTOIN 100 MG/4 ML UDC GT SCH ×2 (08:25→20:30)
[2019-07-01] MEDS: CHOLECALCIFEROL 400 UNITS TABLET GT SCH ×2 (08:25→20:34)
[2019-07-01] MEDS: CETAPHIL TOP SCH ×2 (08:26→20:34)
[2019-07-01] MEDS: Z GUARD REMEDY PASTE 57 GM TUBE TOP SCH ×2 (08:26→20:34)
[2019-07-01] MEDS: VITAMINS A AND D OINT TP SCH ×3 (08:26→20:35)
[2019-07-01] MEDS: HYDROGEN PEROXIDE 3% 118 ML BOTTLE TOP SCH ×2 (09:17→21:12)
[2019-07-01 19:33] VITALS: BP 145/82
[2019-07-01] MEDS: MIRALAX 17 GM POWD.PACK GT SCH (20:31)
[2019-07-02] MEDS: JEVITY 1.2 1000 ML LIQUID GT PRN (04:31)
[2019-07-02] MEDS: OMEPRAZOLE 20 MG CAPSULE.DR GT SCH ×2 (05:55→21:35)
[2019-07-02] MEDS: IPRATROPIUM BROMIDE 0.5 MG/2.5 ML NEBU NEB SCH ×4 (07:47→19:19)
[2019-07-02] MEDS: ALBUTEROL SULFATE 2.5 MG/ 0.5 ML NEBU NEB SCH ×4 (07:47→19:19)
[2019-07-02 08:00] VITALS: BP 116/72
[2019-07-02] MEDS: Z GUARD REMEDY PASTE 57 GM TUBE TOP SCH ×2 (08:45→21:35)
[2019-07-02] MEDS: CETAPHIL TOP SCH ×2 (08:45→21:35)
[2019-07-02] MEDS: PHENYTOIN 100 MG/4 ML UDC GT SCH ×2 (08:45→21:34)
[2019-07-02] MEDS: PROTEIN SUPPLEMENT (PROSTAT) 30 ML LIQUID GT SCH ×2 (08:45→21:35)
[2019-07-02] MEDS: PHENOBARBITAL 30 MG/7.5 ML LIQUID UDC GT SCH ×2 (08:45→21:34)
[2019-07-02] MEDS: CHOLECALCIFEROL 400 UNITS TABLET GT SCH ×2 (08:45→21:35)
[2019-07-02] MEDS: VITAMINS A AND D OINT TP SCH ×3 (08:46→21:35)
[2019-07-02] MEDS: HYDROGEN PEROXIDE 3% 118 ML BOTTLE TOP SCH ×2 (09:57→21:48)
[2019-07-02] MEDS: MIRALAX 17 GM POWD.PACK GT SCH (21:34)
[2019-07-02 22:06] VITALS: BP 134/78
[2019-07-03] MEDS: JEVITY 1.2 1000 ML LIQUID GT PRN (00:30)
[2019-07-03] MEDS: OMEPRAZOLE 20 MG CAPSULE.DR GT SCH ×2 (05:38→20:09)
[2019-07-03] MEDS: IPRATROPIUM BROMIDE 0.5 MG/2.5 ML NEBU NEB SCH ×4 (07:50→18:55)
[2019-07-03] MEDS: ALBUTEROL SULFATE 2.5 MG/ 0.5 ML NEBU NEB SCH ×4 (07:51→18:55)
[2019-07-03 08:00] VITALS: BP 121/62
[2019-07-03] MEDS: HYDROGEN PEROXIDE 3% 118 ML BOTTLE TOP SCH ×2 (09:00→20:09)
[2019-07-03] MEDS: PHENYTOIN 100 MG/4 ML UDC GT SCH ×2 (09:11→20:09)
[2019-07-03] MEDS: CHOLECALCIFEROL 400 UNITS TABLET GT SCH ×2 (09:11→20:09)
[2019-07-03] MEDS: VITAMINS A AND D OINT TP SCH ×3 (09:11→20:09)
[2019-07-03] MEDS: Z GUARD REMEDY PASTE 57 GM TUBE TOP SCH ×2 (09:11→20:09)
[2019-07-03] MEDS: CETAPHIL TOP SCH ×2 (09:11→20:09)
[2019-07-03] MEDS: PROTEIN SUPPLEMENT (PROSTAT) 30 ML LIQUID GT SCH ×2 (09:11→20:09)
[2019-07-03] MEDS: PHENOBARBITAL 30 MG/7.5 ML LIQUID UDC GT SCH ×2 (09:11→20:09)
--- NOTE | 2019-07-03 18:55 | NUR ---
Pt received on HT-50 ventilator with the following settings of AC-14, Vt-700, FIO2-35%, trached with Shiley#8 XLT Distal trach, which is in the place and secure. No respiratory distress noted. Airway care done, pt responded to physical stimuli. In-line HHN tx with 2.5mg Albuterol+0.5mg Atrovent given, pt tolerated well. HME, Sx Rivera and HHN adaptor changed. Resus. bag and back up trach at bedside. Vent and alarms checked and reset.
[2019-07-03 20:05] VITALS: BP 131/81
[2019-07-03] MEDS: MIRALAX 17 GM POWD.PACK GT SCH (20:09)
[2019-07-04] MEDS: JEVITY 1.2 1000 ML LIQUID GT PRN ×2 (00:18→20:00)
[2019-07-04] MEDS: OMEPRAZOLE 20 MG CAPSULE.DR GT SCH ×2 (05:22→20:24)
[2019-07-04 08:00] VITALS: BP 137/81
[2019-07-04] MEDS: IPRATROPIUM BROMIDE 0.5 MG/2.5 ML NEBU NEB SCH ×4 (08:10→19:16)
[2019-07-04] MEDS: ALBUTEROL SULFATE 2.5 MG/ 0.5 ML NEBU NEB SCH ×4 (08:10→19:16)
[2019-07-04] MEDS: PHENYTOIN 100 MG/4 ML UDC GT SCH ×2 (08:25→20:24)
[2019-07-04] MEDS: PHENOBARBITAL 30 MG/7.5 ML LIQUID UDC GT SCH ×2 (08:26→20:24)
[2019-07-04] MEDS: PROTEIN SUPPLEMENT (PROSTAT) 30 ML LIQUID GT SCH ×2 (08:27→20:24)
[2019-07-04] MEDS: CHOLECALCIFEROL 400 UNITS TABLET GT SCH ×2 (08:27→20:24)
[2019-07-04] MEDS: HYDROGEN PEROXIDE 3% 118 ML BOTTLE TOP SCH ×2 (08:32→20:49)
[2019-07-04] MEDS: CETAPHIL TOP SCH ×2 (09:00→20:24)
[2019-07-04] MEDS: Z GUARD REMEDY PASTE 57 GM TUBE TOP SCH ×2 (09:00→20:24)
[2019-07-04] MEDS: VITAMINS A AND D OINT TP SCH ×3 (09:00→20:25)
[2019-07-04 20:02] VITALS: BP 132/83
[2019-07-04] MEDS: MIRALAX 17 GM POWD.PACK GT SCH (20:24)
[2019-07-05] MEDS: OMEPRAZOLE 20 MG CAPSULE.DR GT SCH ×2 (05:35→20:53)
[2019-07-05] MEDS: ALBUTEROL SULFATE 2.5 MG/ 0.5 ML NEBU NEB SCH ×4 (07:25→19:10)
[2019-07-05] MEDS: IPRATROPIUM BROMIDE 0.5 MG/2.5 ML NEBU NEB SCH ×4 (07:25→19:10)
[2019-07-05 08:00] VITALS: BP 149/87
[2019-07-05] MEDS: PHENYTOIN 100 MG/4 ML UDC GT SCH ×2 (08:57→20:51)
[2019-07-05] MEDS: PHENOBARBITAL 30 MG/7.5 ML LIQUID UDC GT SCH ×2 (08:59→20:53)
[2019-07-05] MEDS: CHOLECALCIFEROL 400 UNITS TABLET GT SCH ×2 (08:59→20:53)
[2019-07-05] MEDS: PROTEIN SUPPLEMENT (PROSTAT) 30 ML LIQUID GT SCH ×2 (08:59→20:53)
[2019-07-05] MEDS: HYDROGEN PEROXIDE 3% 118 ML BOTTLE TOP SCH ×2 (09:00→21:31)
[2019-07-05] MEDS: VITAMINS A AND D OINT TP SCH ×3 (09:00→20:56)
[2019-07-05] MEDS: CETAPHIL TOP SCH ×2 (09:00→20:56)
[2019-07-05] MEDS: Z GUARD REMEDY PASTE 57 GM TUBE TOP SCH ×2 (09:00→20:56)
[2019-07-05] MEDS: MIRALAX 17 GM POWD.PACK GT SCH (20:53)
[2019-07-05 21:14] VITALS: BP 139/86
[2019-07-05] MEDS: JEVITY 1.2 1000 ML LIQUID GT PRN (22:30)
[2019-07-06] MEDS: OMEPRAZOLE 20 MG CAPSULE.DR GT SCH ×2 (05:10→21:23)
[2019-07-06 08:09] VITALS: BP 130/84
[2019-07-06] MEDS: ALBUTEROL SULFATE 2.5 MG/ 0.5 ML NEBU NEB SCH ×4 (08:20→20:12)
[2019-07-06] MEDS: IPRATROPIUM BROMIDE 0.5 MG/2.5 ML NEBU NEB SCH ×4 (08:20→20:12)
[2019-07-06] MEDS: HYDROGEN PEROXIDE 3% 118 ML BOTTLE TOP SCH ×2 (09:02→21:51)
[2019-07-06] MEDS: PHENYTOIN 100 MG/4 ML UDC GT SCH ×2 (09:27→21:18)
[2019-07-06] MEDS: PHENOBARBITAL 30 MG/7.5 ML LIQUID UDC GT SCH ×2 (09:29→21:22)
[2019-07-06] MEDS: Z GUARD REMEDY PASTE 57 GM TUBE TOP SCH ×2 (09:30→21:24)
[2019-07-06] MEDS: CETAPHIL TOP SCH ×2 (09:30→21:24)
[2019-07-06] MEDS: CHOLECALCIFEROL 400 UNITS TABLET GT SCH ×2 (09:30→21:24)
[2019-07-06] MEDS: VITAMINS A AND D OINT TP SCH ×3 (09:30→21:24)
[2019-07-06] MEDS: PROTEIN SUPPLEMENT (PROSTAT) 30 ML LIQUID GT SCH ×2 (09:30→21:23)
--- NOTE | 2019-07-06 14:03 | NUR ---
INTERDISCIPLINARY PLAN OF CARE CONFERENCE was held today. Patient's parents were unable to participate in the meeting. Dr. Hammond and the Interdisciplinary Team reviewed the current plan of care in detail. RN reported on patient's medical condition. See RN IDT conference notes. No major changes in condition were reported. See also all other disciplines IDT notes and physician's progress notes for additional details.
--- NOTE | 2019-07-06 15:21 | NUR ---
Pharmacy Update from Today's 07/06/19 IDT meeting VS: Temp 98.3 HR 86 BP 130/84 LABS: (from 03/18/19, no new labs) Wbc 6.4 H/H 16.4/48.2 Plt 120 Na 138 K 4.2 Cl 103 CO2 27 BUN/SCr 17/0.7 BS 85 Ca 9.0 Phos 2.8 Mg 1.8 MEDICATION USE REVIEW: > Pt is not any anti-psych medications > Pt is on Phenobarbital 60mg q12hr; last level on 03/18/19 was 22.2 (15-39) within therapeutic range. > Pt is on Phenytoin 150mg q12hrs; last level on 03/18/19 was 7.7 (10-20), no need for correction, alb wnl. MD elected to continue same dose as pt has been on current regimen for years without seizures. No seizure activity noted > PRN MED USAGE: (May) Tylenol for pain/temp used x 0 Thorazine for hiccups used x 0 Ativan used x 0 on 0 separate days for retching Compro used x 0 days (15min before getting up in chair) Compro used x 0 for N/V (may use with ativan) Bisacodyl PRN used x 1 NEW ORDERS NOTED: > Rx clarified duration and indication for betamethasone/lotrimin creams for rash treatment as no duration and per rns, pt receives on and off instead of scheduled. vocal music instructor clarified order with MD as treatment duration is not indefinite however schedule is now PRN as needed as pt often has on and off. Rx reviewed current regimen and patient was discussed in detail with no medication concerns at this time. Patient continues stable on current regimen, no further recs at this time per rx (pls see above for cream indication rec). Will continue follow
--- NOTE | 2019-07-06 15:44 | NUR ---
MCKENNA called patient's mother KAUSHIK [phone] to check in on how she and her were doing. KAUSHIK was receptive to speaking with this MCKENNA. BJ stated that she and her were doing fine. MCKENNA explored needs for any community resources/services, and KAUSHIK stated that they were doing well, and did not need any resources at this time. KAUSHIK mentioned that she checks in with nursing several times a week to get updates on patient's status, and stated that she did not have any concerns at this time, however wanted SW to remind nursing about making sure to shave patient 1 x week. MCKENNA stated that she will follow up with nursing regarding this request, and BJ expressed appreciation. MCKENNA asked BJ if they are using the video chat option that the facility is offering families in order to communicate with the patient, and BJ stated that at this time they are choosing not the use video chat, and are content with getting patient status updates from nursing via telephone several times a week. MCKENNA expressed understanding, but reminded KAUSHIK that if she changes her mind, she can just let nursing know and nursing to coordinate video chats with the patient. KAUSHIK expressed understanding and thanked MCKENNA for her time. Addendum: 07/06/19 at 1612 by ATUL ANDRES MCKENNA met with transmitter engineer in charge Miriam and abi Burnham of patient's mother KAUSHIK's request that KAUSHIK had relayed to MCKENNA during phone conversation earlier. See above for details on request.
[2019-07-06] MEDS: JEVITY 1.2 1000 ML LIQUID GT PRN (17:09)
[2019-07-06 20:00] VITALS: BP 126/80
[2019-07-06] MEDS: MIRALAX 17 GM POWD.PACK GT SCH (21:20)
[2019-07-07] MEDS: OMEPRAZOLE 20 MG CAPSULE.DR GT SCH ×2 (06:01→21:50)
[2019-07-07 08:00] VITALS: BP 130/64
[2019-07-07] MEDS: IPRATROPIUM BROMIDE 0.5 MG/2.5 ML NEBU NEB SCH ×4 (08:04→19:12)
[2019-07-07] MEDS: ALBUTEROL SULFATE 2.5 MG/ 0.5 ML NEBU NEB SCH ×4 (08:04→19:12)
[2019-07-07] MEDS: HYDROGEN PEROXIDE 3% 118 ML BOTTLE TOP SCH ×2 (09:00→21:48)
[2019-07-07] MEDS: PHENYTOIN 100 MG/4 ML UDC GT SCH ×2 (09:39→21:49)
[2019-07-07] MEDS: PHENOBARBITAL 30 MG/7.5 ML LIQUID UDC GT SCH ×2 (09:40→21:50)
[2019-07-07] MEDS: PROTEIN SUPPLEMENT (PROSTAT) 30 ML LIQUID GT SCH ×2 (09:42→21:50)
[2019-07-07] MEDS: CHOLECALCIFEROL 400 UNITS TABLET GT SCH ×2 (09:42→21:50)
[2019-07-07] MEDS: CETAPHIL TOP SCH ×2 (09:44→21:51)
[2019-07-07] MEDS: Z GUARD REMEDY PASTE 57 GM TUBE TOP SCH ×2 (09:44→21:51)
[2019-07-07] MEDS: VITAMINS A AND D OINT TP SCH ×3 (09:44→21:51)
[2019-07-07] MEDS: JEVITY 1.2 1000 ML LIQUID GT PRN (13:37)
--- NOTE | 2019-07-07 19:12 | NUR ---
Pt received on HT-50 ventilator with the following settings of AC-14, Vt-700, FIO2-35%, trached with Shiley#8 XLT Distal trach, which is in the place and secure. No distress noted. Airway care done, pt responded to physical stimuli. In-line HHN tx with 2.5mg Albuterol+0.5mg Atrovent given, pt tolerated well. HME changed. Resus. bag and back up trach at bedside. Vent and alarms checked and reset.
[2019-07-07 20:00] VITALS: BP 129/86
[2019-07-07] MEDS: MIRALAX 17 GM POWD.PACK GT SCH (21:50)
[2019-07-08] MEDS: OMEPRAZOLE 20 MG CAPSULE.DR GT SCH ×2 (05:47→21:48)
[2019-07-08] MEDS: IPRATROPIUM BROMIDE 0.5 MG/2.5 ML NEBU NEB SCH ×4 (07:26→19:06)
[2019-07-08] MEDS: ALBUTEROL SULFATE 2.5 MG/ 0.5 ML NEBU NEB SCH ×4 (07:26→19:06)
[2019-07-08 08:00] VITALS: BP 128/67
[2019-07-08] MEDS: PHENYTOIN 100 MG/4 ML UDC GT SCH ×2 (08:20→21:47)
[2019-07-08] MEDS: PHENOBARBITAL 30 MG/7.5 ML LIQUID UDC GT SCH ×2 (08:22→21:47)
[2019-07-08] MEDS: PROTEIN SUPPLEMENT (PROSTAT) 30 ML LIQUID GT SCH ×2 (08:22→21:49)
[2019-07-08] MEDS: VITAMINS A AND D OINT TP SCH ×3 (08:23→21:50)
[2019-07-08] MEDS: CHOLECALCIFEROL 400 UNITS TABLET GT SCH ×2 (08:23→21:49)
[2019-07-08] MEDS: Z GUARD REMEDY PASTE 57 GM TUBE TOP SCH ×2 (08:23→21:49)
[2019-07-08] MEDS: CETAPHIL TOP SCH ×2 (08:23→21:49)
[2019-07-08] MEDS: JEVITY 1.2 1000 ML LIQUID GT PRN (09:36)
[2019-07-08] MEDS: HYDROGEN PEROXIDE 3% 118 ML BOTTLE TOP SCH ×2 (09:47→20:57)
--- NOTE | 2019-07-08 18:19 | NUR ---
EOS: No significant changes during this shift. Pt. remain non-verbal but responsive to tactile stimuli. Pt. remain stable with no acute distress. Skin care rendered. Pt. afebrile, no chills. Safety measures in place. Will endorse to oncoming shift accordingly.
[2019-07-08 20:00] VITALS: BP 122/75
[2019-07-08] MEDS: MIRALAX 17 GM POWD.PACK GT SCH (21:47)
[2019-07-09] MEDS: JEVITY 1.2 1000 ML LIQUID GT PRN ×2 (03:37→21:31)
[2019-07-09] MEDS: OMEPRAZOLE 20 MG CAPSULE.DR GT SCH ×2 (05:55→20:51)
[2019-07-09] MEDS: HYDROGEN PEROXIDE 3% 118 ML BOTTLE TOP SCH ×2 (07:10→21:44)
[2019-07-09] MEDS: IPRATROPIUM BROMIDE 0.5 MG/2.5 ML NEBU NEB SCH ×4 (07:10→20:43)
[2019-07-09] MEDS: ALBUTEROL SULFATE 2.5 MG/ 0.5 ML NEBU NEB SCH ×4 (07:10→20:43)
[2019-07-09 07:35] VITALS: BP 97/59
[2019-07-09] MEDS: VITAMINS A AND D OINT TP SCH ×3 (08:08→20:51)
[2019-07-09] MEDS: PHENOBARBITAL 30 MG/7.5 ML LIQUID UDC GT SCH ×2 (08:08→20:51)
[2019-07-09] MEDS: CHOLECALCIFEROL 400 UNITS TABLET GT SCH ×2 (08:08→20:51)
[2019-07-09] MEDS: CETAPHIL TOP SCH ×2 (08:08→20:51)
[2019-07-09] MEDS: PHENYTOIN 100 MG/4 ML UDC GT SCH ×2 (08:08→20:51)
[2019-07-09] MEDS: Z GUARD REMEDY PASTE 57 GM TUBE TOP SCH ×2 (08:08→20:51)
[2019-07-09] MEDS: PROTEIN SUPPLEMENT (PROSTAT) 30 ML LIQUID GT SCH ×2 (08:08→20:51)
[2019-07-09 20:18] VITALS: BP 126/89
[2019-07-09] MEDS: MIRALAX 17 GM POWD.PACK GT SCH (20:51)
[2019-07-10] MEDS: OMEPRAZOLE 20 MG CAPSULE.DR GT SCH ×2 (05:40→21:01)
[2019-07-10] MEDS: IPRATROPIUM BROMIDE 0.5 MG/2.5 ML NEBU NEB SCH ×4 (08:15→19:38)
[2019-07-10] MEDS: ALBUTEROL SULFATE 2.5 MG/ 0.5 ML NEBU NEB SCH ×4 (08:15→19:38)
[2019-07-10] MEDS: PROTEIN SUPPLEMENT (PROSTAT) 30 ML LIQUID GT SCH ×2 (08:27→21:01)
[2019-07-10] MEDS: PHENYTOIN 100 MG/4 ML UDC GT SCH ×2 (08:27→21:01)
[2019-07-10] MEDS: PHENOBARBITAL 30 MG/7.5 ML LIQUID UDC GT SCH ×2 (08:27→21:01)
[2019-07-10] MEDS: CETAPHIL TOP SCH ×2 (08:28→21:01)
[2019-07-10] MEDS: Z GUARD REMEDY PASTE 57 GM TUBE TOP SCH ×2 (08:28→21:01)
[2019-07-10] MEDS: CHOLECALCIFEROL 400 UNITS TABLET GT SCH ×2 (08:28→21:01)
[2019-07-10] MEDS: VITAMINS A AND D OINT TP SCH ×3 (08:28→21:02)
--- NOTE | 2019-07-10 08:30 | NUR ---
reported by Wine Steward/Stewardess ,pt has redness on the L and R buttocks ,picture was taken.
[2019-07-10] MEDS: HYDROGEN PEROXIDE 3% 118 ML BOTTLE TOP SCH ×2 (09:03→21:00)
--- NOTE | 2019-07-10 11:40 | NUR ---
New tx orders carried out for L and R buttocks redness,pt's mother BJ aware.and agreed with plan of care.
[2019-07-10 11:52] VITALS: BP 117/69
[2019-07-10] MEDS: COD LIVER OIL/ZINC OXIDE OINT 113 GM TUBE TP SCH ×4 (15:27→21:02)
[2019-07-10] MEDS: JEVITY 1.2 1000 ML LIQUID GT PRN (17:20)
[2019-07-10 20:00] VITALS: BP 143/72
[2019-07-10] MEDS: MIRALAX 17 GM POWD.PACK GT SCH (21:01)
[2019-07-11] MEDS: OMEPRAZOLE 20 MG CAPSULE.DR GT SCH ×2 (05:47→21:13)
[2019-07-11] MEDS: IPRATROPIUM BROMIDE 0.5 MG/2.5 ML NEBU NEB SCH ×4 (07:25→19:19)
[2019-07-11] MEDS: ALBUTEROL SULFATE 2.5 MG/ 0.5 ML NEBU NEB SCH ×4 (07:25→19:19)
[2019-07-11 08:30] VITALS: BP 139/78
[2019-07-11] MEDS: PHENYTOIN 100 MG/4 ML UDC GT SCH ×2 (08:40→21:13)
[2019-07-11] MEDS: PROTEIN SUPPLEMENT (PROSTAT) 30 ML LIQUID GT SCH ×2 (08:45→21:13)
[2019-07-11] MEDS: CHOLECALCIFEROL 400 UNITS TABLET GT SCH ×2 (08:45→21:13)
[2019-07-11] MEDS: Z GUARD REMEDY PASTE 57 GM TUBE TOP SCH ×2 (08:45→21:13)
[2019-07-11] MEDS: CETAPHIL TOP SCH ×2 (08:45→21:13)
[2019-07-11] MEDS: PHENOBARBITAL 30 MG/7.5 ML LIQUID UDC GT SCH ×2 (08:45→21:13)
[2019-07-11] MEDS: VITAMINS A AND D OINT TP SCH ×3 (08:46→21:13)
[2019-07-11] MEDS: COD LIVER OIL/ZINC OXIDE OINT 113 GM TUBE TP SCH ×4 (08:46→21:13)
[2019-07-11] MEDS: HYDROGEN PEROXIDE 3% 118 ML BOTTLE TOP SCH ×2 (08:47→21:17)
[2019-07-11 20:00] VITALS: BP 111/69
[2019-07-11] MEDS: MIRALAX 17 GM POWD.PACK GT SCH (21:13)
[2019-07-11] MEDS: JEVITY 1.2 1000 ML LIQUID GT PRN (21:27)
[2019-07-12] MEDS: OMEPRAZOLE 20 MG CAPSULE.DR GT SCH ×2 (05:44→20:50)
[2019-07-12] MEDS: ALBUTEROL SULFATE 2.5 MG/ 0.5 ML NEBU NEB SCH ×4 (07:11→19:50)
[2019-07-12] MEDS: IPRATROPIUM BROMIDE 0.5 MG/2.5 ML NEBU NEB SCH ×4 (07:11→19:50)
[2019-07-12] MEDS: HYDROGEN PEROXIDE 3% 118 ML BOTTLE TOP SCH ×2 (07:12→20:52)
[2019-07-12 08:30] VITALS: BP 125/76
[2019-07-12] MEDS: PHENYTOIN 100 MG/4 ML UDC GT SCH ×2 (08:38→20:46)
[2019-07-12] MEDS: PHENOBARBITAL 30 MG/7.5 ML LIQUID UDC GT SCH ×2 (08:39→20:50)
[2019-07-12] MEDS: VITAMINS A AND D OINT TP SCH ×3 (08:39→20:53)
[2019-07-12] MEDS: CHOLECALCIFEROL 400 UNITS TABLET GT SCH ×2 (08:39→20:51)
[2019-07-12] MEDS: COD LIVER OIL/ZINC OXIDE OINT 113 GM TUBE TP SCH ×4 (08:39→20:53)
[2019-07-12] MEDS: PROTEIN SUPPLEMENT (PROSTAT) 30 ML LIQUID GT SCH ×2 (08:39→20:51)
[2019-07-12] MEDS: Z GUARD REMEDY PASTE 57 GM TUBE TOP SCH ×2 (08:39→20:53)
[2019-07-12] MEDS: CETAPHIL TOP SCH ×2 (08:39→20:52)
[2019-07-12 20:07] VITALS: BP 117/83
[2019-07-12] MEDS: MIRALAX 17 GM POWD.PACK GT SCH (20:46)
[2019-07-13 02:07] VITALS: BP 117/83
[2019-07-13] MEDS: OMEPRAZOLE 20 MG CAPSULE.DR GT SCH ×2 (05:38→21:37)
[2019-07-13] MEDS: ALBUTEROL SULFATE 2.5 MG/ 0.5 ML NEBU NEB SCH ×4 (07:29→19:20)
[2019-07-13] MEDS: IPRATROPIUM BROMIDE 0.5 MG/2.5 ML NEBU NEB SCH ×4 (07:29→19:20)
[2019-07-13 08:00] VITALS: BP 143/81
[2019-07-13] MEDS: PHENYTOIN 100 MG/4 ML UDC GT SCH ×2 (08:35→21:35)
[2019-07-13] MEDS: PHENOBARBITAL 30 MG/7.5 ML LIQUID UDC GT SCH ×2 (08:37→21:37)
[2019-07-13] MEDS: PROTEIN SUPPLEMENT (PROSTAT) 30 ML LIQUID GT SCH ×2 (08:39→21:38)
[2019-07-13] MEDS: CHOLECALCIFEROL 400 UNITS TABLET GT SCH ×2 (08:39→21:38)
[2019-07-13] MEDS: COD LIVER OIL/ZINC OXIDE OINT 113 GM TUBE TP SCH ×4 (09:30→21:39)
[2019-07-13] MEDS: VITAMINS A AND D OINT TP SCH ×3 (09:30→21:40)
[2019-07-13] MEDS: Z GUARD REMEDY PASTE 57 GM TUBE TOP SCH ×2 (09:30→21:39)
[2019-07-13] MEDS: CETAPHIL TOP SCH ×2 (09:30→21:39)
[2019-07-13] MEDS: HYDROGEN PEROXIDE 3% 118 ML BOTTLE TOP SCH ×2 (09:45→21:37)
[2019-07-13] MEDS: JEVITY 1.2 1000 ML LIQUID GT PRN (15:09)
[2019-07-13 20:10] VITALS: BP 128/81
[2019-07-13] MEDS: MIRALAX 17 GM POWD.PACK GT SCH (21:35)
[2019-07-14] MEDS: OMEPRAZOLE 20 MG CAPSULE.DR GT SCH ×2 (06:12→21:52)
[2019-07-14] MEDS: ALBUTEROL SULFATE 2.5 MG/ 0.5 ML NEBU NEB SCH ×4 (07:35→19:22)
[2019-07-14] MEDS: IPRATROPIUM BROMIDE 0.5 MG/2.5 ML NEBU NEB SCH ×4 (07:35→19:22)
[2019-07-14 08:03] VITALS: BP 127/81
[2019-07-14] MEDS: PHENYTOIN 100 MG/4 ML UDC GT SCH ×2 (08:30→21:51)
[2019-07-14] MEDS: PHENOBARBITAL 30 MG/7.5 ML LIQUID UDC GT SCH ×2 (08:31→21:52)
[2019-07-14] MEDS: PROTEIN SUPPLEMENT (PROSTAT) 30 ML LIQUID GT SCH ×2 (08:31→21:52)
[2019-07-14] MEDS: CHOLECALCIFEROL 400 UNITS TABLET GT SCH ×2 (08:32→21:53)
[2019-07-14] MEDS: HYDROGEN PEROXIDE 3% 118 ML BOTTLE TOP SCH ×2 (08:49→21:00)
[2019-07-14] MEDS: VITAMINS A AND D OINT TP SCH ×3 (09:00→21:53)
[2019-07-14] MEDS: COD LIVER OIL/ZINC OXIDE OINT 113 GM TUBE TP SCH ×4 (09:00→21:53)
[2019-07-14] MEDS: CETAPHIL TOP SCH ×2 (09:00→21:53)
[2019-07-14] MEDS: Z GUARD REMEDY PASTE 57 GM TUBE TOP SCH ×2 (09:00→21:53)
[2019-07-14] MEDS: JEVITY 1.2 1000 ML LIQUID GT PRN (15:53)
[2019-07-14 19:46] VITALS: BP 132/86
[2019-07-14] MEDS: MIRALAX 17 GM POWD.PACK GT SCH (21:51)
[2019-07-15] MEDS: OMEPRAZOLE 20 MG CAPSULE.DR GT SCH ×2 (06:25→21:00)
[2019-07-15] MEDS: ALBUTEROL SULFATE 2.5 MG/ 0.5 ML NEBU NEB SCH ×4 (07:39→19:23)
[2019-07-15] MEDS: IPRATROPIUM BROMIDE 0.5 MG/2.5 ML NEBU NEB SCH ×4 (07:39→19:23)
[2019-07-15 07:55] VITALS: BP 129/72
[2019-07-15] MEDS: CHOLECALCIFEROL 400 UNITS TABLET GT SCH ×2 (08:10→21:00)
[2019-07-15] MEDS: VITAMINS A AND D OINT TP SCH ×3 (08:11→21:00)
[2019-07-15] MEDS: CETAPHIL TOP SCH ×2 (08:11→21:00)
[2019-07-15] MEDS: PROTEIN SUPPLEMENT (PROSTAT) 30 ML LIQUID GT SCH ×2 (08:11→21:00)
[2019-07-15] MEDS: COD LIVER OIL/ZINC OXIDE OINT 113 GM TUBE TP SCH ×4 (08:11→21:00)
[2019-07-15] MEDS: Z GUARD REMEDY PASTE 57 GM TUBE TOP SCH ×2 (08:11→21:00)
[2019-07-15] MEDS: PHENOBARBITAL 30 MG/7.5 ML LIQUID UDC GT SCH ×2 (08:12→21:00)
[2019-07-15] MEDS: PHENYTOIN 100 MG/4 ML UDC GT SCH ×2 (08:12→21:00)
[2019-07-15] MEDS: HYDROGEN PEROXIDE 3% 118 ML BOTTLE TOP SCH ×2 (09:00→21:21)
--- NOTE | 2019-07-15 09:00 | NUR ---
SEEN BY YUE Florez AND WITH KENDALLO.
[2019-07-15] MEDS: JEVITY 1.2 1000 ML LIQUID GT PRN (17:53)
[2019-07-15 20:14] VITALS: BP 126/81
[2019-07-15] MEDS: MIRALAX 17 GM POWD.PACK GT SCH (21:00)
[2019-07-16] MEDS: OMEPRAZOLE 20 MG CAPSULE.DR GT SCH ×2 (05:52→20:43)
[2019-07-16] MEDS: ALBUTEROL SULFATE 2.5 MG/ 0.5 ML NEBU NEB SCH ×4 (07:15→19:26)
[2019-07-16] MEDS: IPRATROPIUM BROMIDE 0.5 MG/2.5 ML NEBU NEB SCH ×4 (07:15→19:26)
[2019-07-16] MEDS: PHENOBARBITAL 30 MG/7.5 ML LIQUID UDC GT SCH ×2 (08:14→20:42)
[2019-07-16] MEDS: PHENYTOIN 100 MG/4 ML UDC GT SCH ×2 (08:14→20:39)
[2019-07-16] MEDS: PROTEIN SUPPLEMENT (PROSTAT) 30 ML LIQUID GT SCH ×2 (08:15→20:44)
[2019-07-16] MEDS: CHOLECALCIFEROL 400 UNITS TABLET GT SCH ×2 (08:15→20:45)
[2019-07-16] MEDS: Z GUARD REMEDY PASTE 57 GM TUBE TOP SCH ×2 (08:16→20:45)
[2019-07-16] MEDS: COD LIVER OIL/ZINC OXIDE OINT 113 GM TUBE TP SCH ×4 (08:16→20:45)
[2019-07-16] MEDS: CETAPHIL TOP SCH ×2 (08:16→20:45)
[2019-07-16] MEDS: VITAMINS A AND D OINT TP SCH ×3 (08:17→20:45)
[2019-07-16] MEDS: HYDROGEN PEROXIDE 3% 118 ML BOTTLE TOP SCH ×2 (09:11→20:45)
[2019-07-16] MEDS: JEVITY 1.2 1000 ML LIQUID GT PRN (13:52)
[2019-07-16 20:28] VITALS: BP 128/87
[2019-07-16] MEDS: MIRALAX 17 GM POWD.PACK GT SCH (20:39)
[2019-07-17] MEDS: OMEPRAZOLE 20 MG CAPSULE.DR GT SCH ×2 (05:19→20:03)
[2019-07-17] MEDS: IPRATROPIUM BROMIDE 0.5 MG/2.5 ML NEBU NEB SCH ×4 (07:24→19:10)
[2019-07-17] MEDS: ALBUTEROL SULFATE 2.5 MG/ 0.5 ML NEBU NEB SCH ×4 (07:24→19:10)
[2019-07-17 07:44] VITALS: BP 151/93
[2019-07-17] MEDS: PHENYTOIN 100 MG/4 ML UDC GT SCH ×2 (08:08→20:03)
[2019-07-17] MEDS: PHENOBARBITAL 30 MG/7.5 ML LIQUID UDC GT SCH ×2 (08:08→20:03)
[2019-07-17] MEDS: Z GUARD REMEDY PASTE 57 GM TUBE TOP SCH ×2 (08:08→20:05)
[2019-07-17] MEDS: PROTEIN SUPPLEMENT (PROSTAT) 30 ML LIQUID GT SCH ×2 (08:08→20:03)
[2019-07-17] MEDS: CHOLECALCIFEROL 400 UNITS TABLET GT SCH ×2 (08:08→20:04)
[2019-07-17] MEDS: CETAPHIL TOP SCH ×2 (08:08→20:05)
[2019-07-17] MEDS: VITAMINS A AND D OINT TP SCH ×3 (08:09→20:05)
[2019-07-17] MEDS: COD LIVER OIL/ZINC OXIDE OINT 113 GM TUBE TP SCH ×4 (08:09→20:05)
[2019-07-17] MEDS: HYDROGEN PEROXIDE 3% 118 ML BOTTLE TOP SCH ×2 (08:38→21:21)
[2019-07-17] MEDS: JEVITY 1.2 1000 ML LIQUID GT PRN (12:50)
--- NOTE | 2019-07-17 19:10 | NUR ---
Received pt on HT-50 ventilator with the following settings of AC-14, Vt-700, FIO2-35%, trached with Shiley#8 XLT Distal trach, which is in the place and secure. No s/s of respiratory distress noted. Airway care done, pt responded to physical stimuli. In-line HHN tx with 2.5mg Albuterol+0.5mg Atrovent given, pt tolerated well. HME, Sx Rivera and HHN adaptor changed. Resus. bag and back up trach at bedside. Vent and alarms checked and reset.
[2019-07-17 19:58] VITALS: BP 136/79
[2019-07-17] MEDS: MIRALAX 17 GM POWD.PACK GT SCH (20:03)
[2019-07-18] MEDS: OMEPRAZOLE 20 MG CAPSULE.DR GT SCH ×2 (05:40→20:03)
[2019-07-18] MEDS: JEVITY 1.2 1000 ML LIQUID GT PRN (05:41)
[2019-07-18] MEDS: ALBUTEROL SULFATE 2.5 MG/ 0.5 ML NEBU NEB SCH ×4 (07:10→19:10)
[2019-07-18] MEDS: IPRATROPIUM BROMIDE 0.5 MG/2.5 ML NEBU NEB SCH ×4 (07:10→19:10)
[2019-07-18] MEDS: HYDROGEN PEROXIDE 3% 118 ML BOTTLE TOP SCH ×2 (07:10→21:05)
[2019-07-18 07:59] VITALS: BP 128/82
--- NOTE | 2019-07-18 09:08 | NUR ---
SEEN BY LEOBARDO FENTON N.P AND WITH NNO.
[2019-07-18] MEDS: PHENOBARBITAL 30 MG/7.5 ML LIQUID UDC GT SCH ×2 (09:27→20:03)
[2019-07-18] MEDS: PHENYTOIN 100 MG/4 ML UDC GT SCH ×2 (09:27→20:03)
[2019-07-18] MEDS: PROTEIN SUPPLEMENT (PROSTAT) 30 ML LIQUID GT SCH ×2 (09:29→20:03)
[2019-07-18] MEDS: Z GUARD REMEDY PASTE 57 GM TUBE TOP SCH ×2 (09:29→20:04)
[2019-07-18] MEDS: COD LIVER OIL/ZINC OXIDE OINT 113 GM TUBE TP SCH ×4 (09:29→20:04)
[2019-07-18] MEDS: CETAPHIL TOP SCH ×2 (09:29→20:04)
[2019-07-18] MEDS: CHOLECALCIFEROL 400 UNITS TABLET GT SCH ×2 (09:29→20:04)
[2019-07-18] MEDS: VITAMINS A AND D OINT TP SCH ×3 (09:30→20:04)
[2019-07-18] MEDS: MIRALAX 17 GM POWD.PACK GT SCH (20:03)
[2019-07-18 20:23] VITALS: BP 136/83
[2019-07-19] MEDS: OMEPRAZOLE 20 MG CAPSULE.DR GT SCH ×2 (05:33→21:40)
[2019-07-19] MEDS: JEVITY 1.2 1000 ML LIQUID GT PRN (05:33)
[2019-07-19] MEDS: IPRATROPIUM BROMIDE 0.5 MG/2.5 ML NEBU NEB SCH ×4 (07:10→19:18)
[2019-07-19] MEDS: ALBUTEROL SULFATE 2.5 MG/ 0.5 ML NEBU NEB SCH ×4 (07:10→19:18)
[2019-07-19 08:03] VITALS: BP 143/80
[2019-07-19] MEDS: PHENOBARBITAL 30 MG/7.5 ML LIQUID UDC GT SCH ×2 (08:18→21:51)
[2019-07-19] MEDS: PHENYTOIN 100 MG/4 ML UDC GT SCH ×2 (08:18→21:49)
[2019-07-19] MEDS: PROTEIN SUPPLEMENT (PROSTAT) 30 ML LIQUID GT SCH ×2 (08:18→21:40)
[2019-07-19] MEDS: COD LIVER OIL/ZINC OXIDE OINT 113 GM TUBE TP SCH ×4 (08:20→21:42)
[2019-07-19] MEDS: Z GUARD REMEDY PASTE 57 GM TUBE TOP SCH ×2 (08:20→21:42)
[2019-07-19] MEDS: CHOLECALCIFEROL 400 UNITS TABLET GT SCH ×2 (08:20→21:41)
[2019-07-19] MEDS: CETAPHIL TOP SCH ×2 (08:20→21:49)
[2019-07-19] MEDS: VITAMINS A AND D OINT TP SCH ×3 (08:21→21:42)
[2019-07-19] MEDS: HYDROGEN PEROXIDE 3% 118 ML BOTTLE TOP SCH ×2 (09:22→21:11)
[2019-07-19 20:09] VITALS: BP 132/83
[2019-07-19] MEDS: MIRALAX 17 GM POWD.PACK GT SCH (21:44)
[2019-07-20] MEDS: JEVITY 1.2 1000 ML LIQUID GT PRN (02:30)
[2019-07-20] MEDS: OMEPRAZOLE 20 MG CAPSULE.DR GT SCH ×2 (06:31→21:51)
[2019-07-20 07:56] VITALS: BP 120/84
[2019-07-20] MEDS: ALBUTEROL SULFATE 2.5 MG/ 0.5 ML NEBU NEB SCH ×4 (07:56→19:07)
[2019-07-20] MEDS: IPRATROPIUM BROMIDE 0.5 MG/2.5 ML NEBU NEB SCH ×4 (07:56→19:07)
[2019-07-20] MEDS: PHENYTOIN 100 MG/4 ML UDC GT SCH ×2 (08:41→21:45)
[2019-07-20] MEDS: CHOLECALCIFEROL 400 UNITS TABLET GT SCH ×2 (08:41→21:52)
[2019-07-20] MEDS: PHENOBARBITAL 30 MG/7.5 ML LIQUID UDC GT SCH ×2 (08:41→21:50)
[2019-07-20] MEDS: PROTEIN SUPPLEMENT (PROSTAT) 30 ML LIQUID GT SCH ×2 (08:41→21:51)
[2019-07-20] MEDS: CETAPHIL TOP SCH ×2 (08:41→21:54)
[2019-07-20] MEDS: Z GUARD REMEDY PASTE 57 GM TUBE TOP SCH ×2 (08:44→21:54)
[2019-07-20] MEDS: COD LIVER OIL/ZINC OXIDE OINT 113 GM TUBE TP SCH ×4 (08:44→21:54)
[2019-07-20] MEDS: VITAMINS A AND D OINT TP SCH ×3 (08:45→21:54)
[2019-07-20] MEDS: HYDROGEN PEROXIDE 3% 118 ML BOTTLE TOP SCH ×2 (09:00→20:38)
[2019-07-20 19:40] VITALS: BP 133/80
[2019-07-20] MEDS: MIRALAX 17 GM POWD.PACK GT SCH (21:45)
[2019-07-21] MEDS: JEVITY 1.2 1000 ML LIQUID GT PRN (02:15)
[2019-07-21] MEDS: OMEPRAZOLE 20 MG CAPSULE.DR GT SCH ×2 (06:09→21:53)
[2019-07-21 07:57] VITALS: BP 121/78
[2019-07-21] MEDS: IPRATROPIUM BROMIDE 0.5 MG/2.5 ML NEBU NEB SCH ×4 (08:15→19:10)
[2019-07-21] MEDS: ALBUTEROL SULFATE 2.5 MG/ 0.5 ML NEBU NEB SCH ×4 (08:15→19:10)
[2019-07-21] MEDS: PHENYTOIN 100 MG/4 ML UDC GT SCH ×2 (08:51→21:51)
[2019-07-21] MEDS: PHENOBARBITAL 30 MG/7.5 ML LIQUID UDC GT SCH ×2 (08:51→21:53)
[2019-07-21] MEDS: CHOLECALCIFEROL 400 UNITS TABLET GT SCH ×2 (08:53→21:53)
[2019-07-21] MEDS: PROTEIN SUPPLEMENT (PROSTAT) 30 ML LIQUID GT SCH ×2 (08:53→21:53)
[2019-07-21] MEDS: COD LIVER OIL/ZINC OXIDE OINT 113 GM TUBE TP SCH ×4 (08:54→21:54)
[2019-07-21] MEDS: Z GUARD REMEDY PASTE 57 GM TUBE TOP SCH ×2 (08:54→21:54)
[2019-07-21] MEDS: CETAPHIL TOP SCH ×2 (08:54→21:54)
[2019-07-21] MEDS: VITAMINS A AND D OINT TP SCH ×3 (08:56→21:54)
[2019-07-21] MEDS: HYDROGEN PEROXIDE 3% 118 ML BOTTLE TOP SCH ×2 (09:00→21:40)
[2019-07-21 19:56] VITALS: BP 113/79
[2019-07-21] MEDS: MIRALAX 17 GM POWD.PACK GT SCH (21:51)
[2019-07-22] MEDS: JEVITY 1.2 1000 ML LIQUID GT PRN (01:42)
[2019-07-22] MEDS: OMEPRAZOLE 20 MG CAPSULE.DR GT SCH ×2 (06:18→21:31)
[2019-07-22] MEDS: ALBUTEROL SULFATE 2.5 MG/ 0.5 ML NEBU NEB SCH ×4 (07:36→19:10)
[2019-07-22] MEDS: IPRATROPIUM BROMIDE 0.5 MG/2.5 ML NEBU NEB SCH ×4 (07:36→19:10)
[2019-07-22 07:41] VITALS: BP 118/83
[2019-07-22] MEDS: PROTEIN SUPPLEMENT (PROSTAT) 30 ML LIQUID GT SCH ×2 (08:19→21:31)
[2019-07-22] MEDS: PHENOBARBITAL 30 MG/7.5 ML LIQUID UDC GT SCH ×2 (08:19→21:31)
[2019-07-22] MEDS: CETAPHIL TOP SCH ×2 (08:19→21:32)
[2019-07-22] MEDS: PHENYTOIN 100 MG/4 ML UDC GT SCH ×2 (08:19→21:31)
[2019-07-22] MEDS: CHOLECALCIFEROL 400 UNITS TABLET GT SCH ×2 (08:19→21:32)
[2019-07-22] MEDS: COD LIVER OIL/ZINC OXIDE OINT 113 GM TUBE TP SCH ×4 (08:19→21:32)
[2019-07-22] MEDS: Z GUARD REMEDY PASTE 57 GM TUBE TOP SCH ×2 (08:19→21:32)
[2019-07-22] MEDS: VITAMINS A AND D OINT TP SCH ×3 (08:19→21:32)
[2019-07-22] MEDS: HYDROGEN PEROXIDE 3% 118 ML BOTTLE TOP SCH ×2 (09:00→21:24)
[2019-07-22 20:00] VITALS: BP 117/78
[2019-07-22] MEDS: MIRALAX 17 GM POWD.PACK GT SCH (21:31)
[2019-07-23] MEDS: JEVITY 1.2 1000 ML LIQUID GT PRN ×2 (01:25→19:44)
[2019-07-23] MEDS: OMEPRAZOLE 20 MG CAPSULE.DR GT SCH ×2 (05:49→20:49)
[2019-07-23] MEDS: IPRATROPIUM BROMIDE 0.5 MG/2.5 ML NEBU NEB SCH ×4 (07:21→19:50)
[2019-07-23] MEDS: ALBUTEROL SULFATE 2.5 MG/ 0.5 ML NEBU NEB SCH ×4 (07:21→19:50)
[2019-07-23 07:35] VITALS: BP 129/83
[2019-07-23] MEDS: HYDROGEN PEROXIDE 3% 118 ML BOTTLE TOP SCH ×2 (08:13→21:00)
[2019-07-23] MEDS: VITAMINS A AND D OINT TP SCH ×3 (08:18→20:49)
[2019-07-23] MEDS: Z GUARD REMEDY PASTE 57 GM TUBE TOP SCH ×2 (08:18→20:49)
[2019-07-23] MEDS: CHOLECALCIFEROL 400 UNITS TABLET GT SCH ×2 (08:18→20:49)
[2019-07-23] MEDS: COD LIVER OIL/ZINC OXIDE OINT 113 GM TUBE TP SCH ×4 (08:18→20:49)
[2019-07-23] MEDS: PHENOBARBITAL 30 MG/7.5 ML LIQUID UDC GT SCH ×2 (08:18→20:49)
[2019-07-23] MEDS: CETAPHIL TOP SCH ×2 (08:18→20:49)
[2019-07-23] MEDS: PHENYTOIN 100 MG/4 ML UDC GT SCH ×2 (08:18→20:49)
[2019-07-23] MEDS: PROTEIN SUPPLEMENT (PROSTAT) 30 ML LIQUID GT SCH ×2 (08:18→20:49)
[2019-07-23 20:00] VITALS: BP 119/60
[2019-07-23] MEDS: MIRALAX 17 GM POWD.PACK GT SCH (20:49)
[2019-07-24] MEDS: OMEPRAZOLE 20 MG CAPSULE.DR GT SCH ×2 (05:44→20:37)
[2019-07-24 07:42] VITALS: BP 119/74
[2019-07-24] MEDS: IPRATROPIUM BROMIDE 0.5 MG/2.5 ML NEBU NEB SCH ×4 (07:57→19:16)
[2019-07-24] MEDS: ALBUTEROL SULFATE 2.5 MG/ 0.5 ML NEBU NEB SCH ×4 (07:57→19:16)
[2019-07-24] MEDS: PROTEIN SUPPLEMENT (PROSTAT) 30 ML LIQUID GT SCH ×2 (08:41→20:37)
[2019-07-24] MEDS: CETAPHIL TOP SCH ×2 (08:41→20:37)
[2019-07-24] MEDS: PHENOBARBITAL 30 MG/7.5 ML LIQUID UDC GT SCH ×2 (08:41→20:37)
[2019-07-24] MEDS: CHOLECALCIFEROL 400 UNITS TABLET GT SCH ×2 (08:41→20:37)
[2019-07-24] MEDS: COD LIVER OIL/ZINC OXIDE OINT 113 GM TUBE TP SCH ×2 (08:41)
[2019-07-24] MEDS: PHENYTOIN 100 MG/4 ML UDC GT SCH ×2 (08:41→20:37)
[2019-07-24] MEDS: Z GUARD REMEDY PASTE 57 GM TUBE TOP SCH ×2 (08:41→20:38)
[2019-07-24] MEDS: VITAMINS A AND D OINT TP SCH ×3 (08:41→20:38)
[2019-07-24] MEDS: HYDROGEN PEROXIDE 3% 118 ML BOTTLE TOP SCH ×2 (09:00→19:16)
[2019-07-24] MEDS: JEVITY 1.2 1000 ML LIQUID GT PRN (12:33)
[2019-07-24 20:00] VITALS: BP 139/88
[2019-07-24] MEDS: MIRALAX 17 GM POWD.PACK GT SCH (20:37)
[2019-07-25] MEDS: JEVITY 1.2 1000 ML LIQUID GT PRN (05:12)
[2019-07-25] MEDS: OMEPRAZOLE 20 MG CAPSULE.DR GT SCH ×2 (05:40→20:56)
[2019-07-25 07:49] VITALS: BP 137/83
[2019-07-25] MEDS: IPRATROPIUM BROMIDE 0.5 MG/2.5 ML NEBU NEB SCH ×4 (08:05→19:17)
[2019-07-25] MEDS: ALBUTEROL SULFATE 2.5 MG/ 0.5 ML NEBU NEB SCH ×4 (08:05→19:17)
[2019-07-25] MEDS: CHOLECALCIFEROL 400 UNITS TABLET GT SCH ×2 (08:20→20:56)
[2019-07-25] MEDS: PROTEIN SUPPLEMENT (PROSTAT) 30 ML LIQUID GT SCH ×2 (08:20→20:56)
[2019-07-25] MEDS: PHENOBARBITAL 30 MG/7.5 ML LIQUID UDC GT SCH ×2 (08:20→20:56)
[2019-07-25] MEDS: Z GUARD REMEDY PASTE 57 GM TUBE TOP SCH ×2 (08:20→20:56)
[2019-07-25] MEDS: CETAPHIL TOP SCH ×2 (08:20→20:56)
[2019-07-25] MEDS: PHENYTOIN 100 MG/4 ML UDC GT SCH ×2 (08:20→20:56)
[2019-07-25] MEDS: VITAMINS A AND D OINT TP SCH ×3 (08:21→20:56)
[2019-07-25] MEDS: HYDROGEN PEROXIDE 3% 118 ML BOTTLE TOP SCH ×2 (09:17→21:01)
[2019-07-25 20:10] VITALS: BP 135/90
[2019-07-25] MEDS: MIRALAX 17 GM POWD.PACK GT SCH (20:56)
[2019-07-26] MEDS: JEVITY 1.2 1000 ML LIQUID GT PRN (01:26)
[2019-07-26] MEDS: OMEPRAZOLE 20 MG CAPSULE.DR GT SCH ×2 (05:34→20:11)
[2019-07-26] MEDS: ALBUTEROL SULFATE 2.5 MG/ 0.5 ML NEBU NEB SCH ×4 (07:53→19:05)
[2019-07-26] MEDS: IPRATROPIUM BROMIDE 0.5 MG/2.5 ML NEBU NEB SCH ×4 (07:53→19:05)
[2019-07-26 08:01] VITALS: BP 140/86
[2019-07-26] MEDS: PROTEIN SUPPLEMENT (PROSTAT) 30 ML LIQUID GT SCH ×2 (08:05→20:12)
[2019-07-26] MEDS: CHOLECALCIFEROL 400 UNITS TABLET GT SCH ×2 (08:05→20:12)
[2019-07-26] MEDS: PHENYTOIN 100 MG/4 ML UDC GT SCH ×2 (08:05→20:09)
[2019-07-26] MEDS: PHENOBARBITAL 30 MG/7.5 ML LIQUID UDC GT SCH ×2 (08:05→20:11)
[2019-07-26] MEDS: CETAPHIL TOP SCH ×2 (08:05→20:14)
[2019-07-26] MEDS: VITAMINS A AND D OINT TP SCH ×3 (08:06→20:14)
[2019-07-26] MEDS: Z GUARD REMEDY PASTE 57 GM TUBE TOP SCH ×2 (08:06→20:14)
[2019-07-26] MEDS: HYDROGEN PEROXIDE 3% 118 ML BOTTLE TOP SCH ×2 (08:55→21:33)
--- NOTE | 2019-07-26 10:00 | NUR ---
Seen by Fanny BELL, with no new order.
[2019-07-26 19:41] VITALS: BP 142/89
[2019-07-26] MEDS: MIRALAX 17 GM POWD.PACK GT SCH (20:11)
[2019-07-27] MEDS: OMEPRAZOLE 20 MG CAPSULE.DR GT SCH ×2 (05:41→21:44)
[2019-07-27] MEDS: ALBUTEROL SULFATE 2.5 MG/ 0.5 ML NEBU NEB SCH ×4 (07:26→18:56)
[2019-07-27] MEDS: IPRATROPIUM BROMIDE 0.5 MG/2.5 ML NEBU NEB SCH ×4 (07:26→18:56)
[2019-07-27 07:49] VITALS: BP 154/84
[2019-07-27] MEDS: HYDROGEN PEROXIDE 3% 118 ML BOTTLE TOP SCH ×2 (08:26→21:08)
[2019-07-27] MEDS: CETAPHIL TOP SCH ×2 (09:08→21:44)
[2019-07-27] MEDS: PHENYTOIN 100 MG/4 ML UDC GT SCH ×2 (09:08→21:43)
[2019-07-27] MEDS: CHOLECALCIFEROL 400 UNITS TABLET GT SCH ×2 (09:08→21:44)
[2019-07-27] MEDS: PHENOBARBITAL 30 MG/7.5 ML LIQUID UDC GT SCH ×2 (09:08→21:44)
[2019-07-27] MEDS: PROTEIN SUPPLEMENT (PROSTAT) 30 ML LIQUID GT SCH ×2 (09:08→21:44)
[2019-07-27] MEDS: Z GUARD REMEDY PASTE 57 GM TUBE TOP SCH ×2 (09:09→21:44)
[2019-07-27] MEDS: VITAMINS A AND D OINT TP SCH ×3 (09:09→21:44)
--- NOTE | 2019-07-27 18:56 | NUR ---
Received pt on HT-50 ventilator with the following settings of AC-14, Vt-700, FIO2-35%, trached with Shiley#8 XLT Distal trach, which is in the place and secure. No SOB noted. Airway care done, pt responded to physical stimuli. In-line HHN tx with 2.5mg Albuterol+0.5mg Atrovent given, pt tolerated well. HME changed. Resus. bag and back up trach at bedside. Vent and alarms checked and reset.
[2019-07-27 20:00] VITALS: BP 141/69
[2019-07-27] MEDS: MIRALAX 17 GM POWD.PACK GT SCH (21:43)
[2019-07-28] MEDS: OMEPRAZOLE 20 MG CAPSULE.DR GT SCH ×2 (06:16→21:00)
[2019-07-28] MEDS: ALBUTEROL SULFATE 2.5 MG/ 0.5 ML NEBU NEB SCH ×4 (07:29→18:52)
[2019-07-28] MEDS: HYDROGEN PEROXIDE 3% 118 ML BOTTLE TOP SCH ×2 (07:29→18:52)
[2019-07-28] MEDS: IPRATROPIUM BROMIDE 0.5 MG/2.5 ML NEBU NEB SCH ×4 (07:29→18:52)
[2019-07-28 08:01] VITALS: BP 142/80
[2019-07-28] MEDS: VITAMINS A AND D OINT TP SCH ×3 (08:24→21:00)
[2019-07-28] MEDS: Z GUARD REMEDY PASTE 57 GM TUBE TOP SCH ×2 (08:24→21:00)
[2019-07-28] MEDS: CHOLECALCIFEROL 400 UNITS TABLET GT SCH ×2 (08:24→21:00)
[2019-07-28] MEDS: PHENOBARBITAL 30 MG/7.5 ML LIQUID UDC GT SCH ×2 (08:24→21:00)
[2019-07-28] MEDS: PHENYTOIN 100 MG/4 ML UDC GT SCH ×2 (08:24→21:00)
[2019-07-28] MEDS: CETAPHIL TOP SCH ×2 (08:24→21:00)
[2019-07-28] MEDS: PROTEIN SUPPLEMENT (PROSTAT) 30 ML LIQUID GT SCH ×2 (08:24→21:00)
[2019-07-28 19:54] VITALS: BP 126/75
[2019-07-28] MEDS: MIRALAX 17 GM POWD.PACK GT SCH (21:00)
[2019-07-29] MEDS: OMEPRAZOLE 20 MG CAPSULE.DR GT SCH ×2 (05:45→21:53)
[2019-07-29] MEDS: IPRATROPIUM BROMIDE 0.5 MG/2.5 ML NEBU NEB SCH ×4 (07:10→18:44)
[2019-07-29] MEDS: ALBUTEROL SULFATE 2.5 MG/ 0.5 ML NEBU NEB SCH ×4 (07:10→18:44)
[2019-07-29 07:57] VITALS: BP 138/80
[2019-07-29] MEDS: PHENYTOIN 100 MG/4 ML UDC GT SCH ×2 (08:23→21:51)
[2019-07-29] MEDS: VITAMINS A AND D OINT TP SCH ×3 (08:24→21:54)
[2019-07-29] MEDS: PROTEIN SUPPLEMENT (PROSTAT) 30 ML LIQUID GT SCH ×2 (08:24→21:54)
[2019-07-29] MEDS: CHOLECALCIFEROL 400 UNITS TABLET GT SCH ×2 (08:24→21:54)
[2019-07-29] MEDS: Z GUARD REMEDY PASTE 57 GM TUBE TOP SCH ×2 (08:24→21:54)
[2019-07-29] MEDS: CETAPHIL TOP SCH ×2 (08:24→21:54)
[2019-07-29] MEDS: PHENOBARBITAL 30 MG/7.5 ML LIQUID UDC GT SCH ×2 (08:24→21:51)
[2019-07-29] MEDS: HYDROGEN PEROXIDE 3% 118 ML BOTTLE TOP SCH ×2 (08:50→18:44)
[2019-07-29 20:06] VITALS: BP 137/78
[2019-07-29] MEDS: MIRALAX 17 GM POWD.PACK GT SCH (21:51)
[2019-07-30] MEDS: OMEPRAZOLE 20 MG CAPSULE.DR GT SCH ×2 (06:00→21:50)
[2019-07-30] MEDS: ALBUTEROL SULFATE 2.5 MG/ 0.5 ML NEBU NEB SCH ×4 (07:27→18:36)
[2019-07-30] MEDS: IPRATROPIUM BROMIDE 0.5 MG/2.5 ML NEBU NEB SCH ×4 (07:27→18:36)
[2019-07-30 07:35] VITALS: BP 127/78
[2019-07-30] MEDS: HYDROGEN PEROXIDE 3% 118 ML BOTTLE TOP SCH ×2 (08:03→18:36)
[2019-07-30] MEDS: VITAMINS A AND D OINT TP SCH ×3 (10:00→21:50)
[2019-07-30] MEDS: CETAPHIL TOP SCH ×2 (10:00→21:50)
[2019-07-30] MEDS: CHOLECALCIFEROL 400 UNITS TABLET GT SCH ×2 (10:00→21:50)
[2019-07-30] MEDS: PHENYTOIN 100 MG/4 ML UDC GT SCH ×2 (10:00→21:49)
[2019-07-30] MEDS: PROTEIN SUPPLEMENT (PROSTAT) 30 ML LIQUID GT SCH ×2 (10:00→21:50)
[2019-07-30] MEDS: PHENOBARBITAL 30 MG/7.5 ML LIQUID UDC GT SCH ×2 (10:00→21:50)
[2019-07-30] MEDS: Z GUARD REMEDY PASTE 57 GM TUBE TOP SCH ×2 (10:00→21:50)
[2019-07-30] MEDS: JEVITY 1.2 1000 ML LIQUID GT PRN (12:48)
[2019-07-30] MEDS: MIRALAX 17 GM POWD.PACK GT SCH (21:50)
[2019-07-30 22:35] VITALS: BP 115/65
[2019-07-31] MEDS: OMEPRAZOLE 20 MG CAPSULE.DR GT SCH ×2 (05:35→20:40)
[2019-07-31] MEDS: IPRATROPIUM BROMIDE 0.5 MG/2.5 ML NEBU NEB SCH ×4 (07:30→19:03)
[2019-07-31] MEDS: ALBUTEROL SULFATE 2.5 MG/ 0.5 ML NEBU NEB SCH ×4 (07:30→19:03)
[2019-07-31 07:43] VITALS: BP 133/78
[2019-07-31] MEDS: PHENYTOIN 100 MG/4 ML UDC GT SCH ×2 (08:35→20:39)
[2019-07-31] MEDS: PHENOBARBITAL 30 MG/7.5 ML LIQUID UDC GT SCH ×2 (08:36→20:39)
[2019-07-31] MEDS: PROTEIN SUPPLEMENT (PROSTAT) 30 ML LIQUID GT SCH ×2 (08:36→20:40)
[2019-07-31] MEDS: CHOLECALCIFEROL 400 UNITS TABLET GT SCH ×2 (08:36→20:40)
[2019-07-31] MEDS: Z GUARD REMEDY PASTE 57 GM TUBE TOP SCH ×2 (08:37→20:40)
[2019-07-31] MEDS: CETAPHIL TOP SCH ×2 (08:37→20:40)
[2019-07-31] MEDS: VITAMINS A AND D OINT TP SCH ×3 (08:38→20:40)
[2019-07-31] MEDS: HYDROGEN PEROXIDE 3% 118 ML BOTTLE TOP SCH ×2 (09:45→21:00)
[2019-07-31] MEDS: JEVITY 1.2 1000 ML LIQUID GT PRN (11:59)
[2019-07-31] MEDS: MIRALAX 17 GM POWD.PACK GT SCH (20:39)
[2019-07-31 22:01] VITALS: BP 133/83
[2019-08-01] MEDS: JEVITY 1.2 1000 ML LIQUID GT PRN ×2 (01:05→18:26)
[2019-08-01] MEDS: OMEPRAZOLE 20 MG CAPSULE.DR GT SCH ×2 (05:54→21:34)
[2019-08-01] MEDS: ALBUTEROL SULFATE 2.5 MG/ 0.5 ML NEBU NEB SCH ×4 (07:00→19:12)
[2019-08-01] MEDS: IPRATROPIUM BROMIDE 0.5 MG/2.5 ML NEBU NEB SCH ×4 (07:00→19:12)
[2019-08-01 07:43] VITALS: BP 144/80
[2019-08-01] MEDS: VITAMINS A AND D OINT TP SCH ×3 (09:00→21:36)
[2019-08-01] MEDS: Z GUARD REMEDY PASTE 57 GM TUBE TOP SCH ×2 (09:00→21:36)
[2019-08-01] MEDS: CETAPHIL TOP SCH ×2 (09:00→21:34)
[2019-08-01] MEDS: PHENYTOIN 100 MG/4 ML UDC GT SCH ×2 (09:14→21:34)
[2019-08-01] MEDS: PROTEIN SUPPLEMENT (PROSTAT) 30 ML LIQUID GT SCH ×2 (09:16→21:34)
[2019-08-01] MEDS: PHENOBARBITAL 30 MG/7.5 ML LIQUID UDC GT SCH ×2 (09:16→21:34)
[2019-08-01] MEDS: CHOLECALCIFEROL 400 UNITS TABLET GT SCH ×2 (09:16→21:34)
[2019-08-01] MEDS: HYDROGEN PEROXIDE 3% 118 ML BOTTLE TOP SCH ×2 (09:49→21:34)
[2019-08-01] MEDS: MIRALAX 17 GM POWD.PACK GT SCH (21:34)
[2019-08-01 22:36] VITALS: BP 134/82
[2019-08-02] MEDS: OMEPRAZOLE 20 MG CAPSULE.DR GT SCH ×2 (05:32→21:12)
[2019-08-02 07:51] VITALS: BP 120/80
[2019-08-02] MEDS: ALBUTEROL SULFATE 2.5 MG/ 0.5 ML NEBU NEB SCH ×4 (08:21→20:04)
[2019-08-02] MEDS: IPRATROPIUM BROMIDE 0.5 MG/2.5 ML NEBU NEB SCH ×4 (08:21→20:04)
[2019-08-02] MEDS: PROTEIN SUPPLEMENT (PROSTAT) 30 ML LIQUID GT SCH ×2 (08:30→21:12)
[2019-08-02] MEDS: Z GUARD REMEDY PASTE 57 GM TUBE TOP SCH ×2 (08:31→21:13)
[2019-08-02] MEDS: CHOLECALCIFEROL 400 UNITS TABLET GT SCH ×2 (08:31→21:12)
[2019-08-02] MEDS: VITAMINS A AND D OINT TP SCH ×3 (08:31→21:13)
[2019-08-02] MEDS: CETAPHIL TOP SCH ×2 (08:32→21:13)
[2019-08-02] MEDS: PHENYTOIN 100 MG/4 ML UDC GT SCH ×2 (08:37→21:10)
[2019-08-02] MEDS: PHENOBARBITAL 30 MG/7.5 ML LIQUID UDC GT SCH ×2 (08:37→21:10)
[2019-08-02] MEDS: HYDROGEN PEROXIDE 3% 118 ML BOTTLE TOP SCH ×2 (09:00→20:53)
--- NOTE | 2019-08-02 09:55 | NUR ---
SEEN BY LEOBARDO FENTON N.P AND WITH NNO.
[2019-08-02] MEDS: JEVITY 1.2 1000 ML LIQUID GT PRN (12:32)
[2019-08-02 20:19] VITALS: BP 117/56
[2019-08-02] MEDS: MIRALAX 17 GM POWD.PACK GT SCH (21:10)
[2019-08-03] MEDS: OMEPRAZOLE 20 MG CAPSULE.DR GT SCH ×2 (05:31→20:51)
[2019-08-03] MEDS: ALBUTEROL SULFATE 2.5 MG/ 0.5 ML NEBU NEB SCH ×4 (06:53→18:57)
[2019-08-03] MEDS: IPRATROPIUM BROMIDE 0.5 MG/2.5 ML NEBU NEB SCH ×4 (06:53→18:57)
[2019-08-03 07:32] VITALS: BP 128/72
[2019-08-03] MEDS: HYDROGEN PEROXIDE 3% 118 ML BOTTLE TOP SCH ×2 (09:02→20:33)
[2019-08-03] MEDS: PHENYTOIN 100 MG/4 ML UDC GT SCH ×2 (09:14→20:51)
[2019-08-03] MEDS: PHENOBARBITAL 30 MG/7.5 ML LIQUID UDC GT SCH ×2 (09:14→20:51)
[2019-08-03] MEDS: PROTEIN SUPPLEMENT (PROSTAT) 30 ML LIQUID GT SCH ×2 (09:14→20:52)
[2019-08-03] MEDS: CETAPHIL TOP SCH ×2 (09:14→20:52)
[2019-08-03] MEDS: Z GUARD REMEDY PASTE 57 GM TUBE TOP SCH ×2 (09:14→20:52)
[2019-08-03] MEDS: CHOLECALCIFEROL 400 UNITS TABLET GT SCH ×2 (09:14→20:52)
[2019-08-03] MEDS: VITAMINS A AND D OINT TP SCH ×3 (09:15→20:53)
--- NOTE | 2019-08-03 12:49 | NUR ---
INTERDISCIPLINARY PLAN OF CARE CONFERENCE was held today. Patient's parents were not available to participate in th meeting. Dr. Hammond and the Interdisciplinary Team reviewed the current plan of care in detail. RN reported on patient's current medical condition. No major changes in condition were reported. See RN IDT conference notes. See all also other disciplines IDT notes and physician's progress notes for additional details.
--- NOTE | 2019-08-03 13:05 | NUR ---
Pharmacy Update from Today's 08/03/19 IDT meeting VS: Temp 97.9 HR 83 BP 128/72 LABS: (from 03/18/19, no new labs) Wbc 6.4 H/H 16.4/48.2 Plt 120 Na 138 K 4.2 Cl 103 CO2 27 BUN/SCr 17/0.7 BS 85 Ca 9.0 Phos 2.8 Mg 1.8 MEDICATION USE REVIEW: > Pt is not any anti-psych medications > Pt is on Phenobarbital 60mg q12hr; last level on 03/18/19 was 22.2 (15-39) within therapeutic range. > Pt is on Phenytoin 150mg q12hrs; last level on 03/18/19 was 7.7 (10-20), no need for correction, alb wnl. MD elected to continue same dose as pt has been on current regimen for years without seizures. No seizure activity noted > PRN MED USAGE: (June) Tylenol for pain/temp used x 0 Thorazine for hiccups used x 0 Ativan used x 0 on 0 separate days for retching Compro used x 0 days (15min before getting up in chair) Compro used x 0 for N/V (may use with ativan) Bisacodyl PRN used x 0 Note: thorazine/ativan/compro not to d/c as for chronic conditions NEW ORDERS NOTED: > NA Patient was reviewed and discussed in detail with no medication concerns per IDT staff at this time. Patient continues stable on current regimen, no further recommendations at this time per Rx. Will continue follow
[2019-08-03 20:00] VITALS: BP 135/80
[2019-08-03] MEDS: MIRALAX 17 GM POWD.PACK GT SCH (20:51)
[2019-08-04] MEDS: OMEPRAZOLE 20 MG CAPSULE.DR GT SCH ×2 (05:38→21:03)
[2019-08-04] MEDS: IPRATROPIUM BROMIDE 0.5 MG/2.5 ML NEBU NEB SCH ×4 (07:32→18:58)
[2019-08-04] MEDS: ALBUTEROL SULFATE 2.5 MG/ 0.5 ML NEBU NEB SCH ×4 (07:32→18:58)
[2019-08-04 07:55] VITALS: BP 151/87
[2019-08-04] MEDS: HYDROGEN PEROXIDE 3% 118 ML BOTTLE TOP SCH ×2 (08:15→21:05)
[2019-08-04] MEDS: PHENYTOIN 100 MG/4 ML UDC GT SCH ×2 (09:03→20:59)
[2019-08-04] MEDS: CHOLECALCIFEROL 400 UNITS TABLET GT SCH ×2 (09:03→21:05)
[2019-08-04] MEDS: PROTEIN SUPPLEMENT (PROSTAT) 30 ML LIQUID GT SCH ×2 (09:03→21:04)
[2019-08-04] MEDS: PHENOBARBITAL 30 MG/7.5 ML LIQUID UDC GT SCH ×2 (09:03→21:09)
[2019-08-04] MEDS: VITAMINS A AND D OINT TP SCH ×3 (09:03→21:07)
[2019-08-04] MEDS: CETAPHIL TOP SCH ×2 (09:03→21:05)
[2019-08-04] MEDS: Z GUARD REMEDY PASTE 57 GM TUBE TOP SCH ×2 (09:03→21:05)
[2019-08-04] MEDS: CLOTRIMAZOLE 1% CREAM 30 GM TUBE TP PRN (09:04)
[2019-08-04] MEDS: BETAMET DP 0.05% AUGM CR 15 GM CREAM.GM. TP PRN (09:04)
[2019-08-04] MEDS: JEVITY 1.2 1000 ML LIQUID GT PRN (15:54)
[2019-08-04 20:00] VITALS: BP 132/83
[2019-08-04] MEDS: MIRALAX 17 GM POWD.PACK GT SCH (21:02)
[2019-08-05] MEDS: OMEPRAZOLE 20 MG CAPSULE.DR GT SCH ×2 (06:12→21:22)
[2019-08-05] MEDS: ALBUTEROL SULFATE 2.5 MG/ 0.5 ML NEBU NEB SCH ×4 (07:18→19:06)
[2019-08-05] MEDS: HYDROGEN PEROXIDE 3% 118 ML BOTTLE TOP SCH ×2 (07:18→20:50)
[2019-08-05] MEDS: IPRATROPIUM BROMIDE 0.5 MG/2.5 ML NEBU NEB SCH ×4 (07:18→19:06)
[2019-08-05 07:42] VITALS: BP 145/79
[2019-08-05] MEDS: PHENYTOIN 100 MG/4 ML UDC GT SCH ×2 (09:30→21:22)
[2019-08-05] MEDS: Z GUARD REMEDY PASTE 57 GM TUBE TOP SCH ×2 (09:31→21:22)
[2019-08-05] MEDS: CETAPHIL TOP SCH ×2 (09:31→21:22)
[2019-08-05] MEDS: VITAMINS A AND D OINT TP SCH ×3 (09:31→21:23)
[2019-08-05] MEDS: CHOLECALCIFEROL 400 UNITS TABLET GT SCH ×2 (09:31→21:22)
[2019-08-05] MEDS: PROTEIN SUPPLEMENT (PROSTAT) 30 ML LIQUID GT SCH ×2 (09:31→21:22)
[2019-08-05] MEDS: PHENOBARBITAL 30 MG/7.5 ML LIQUID UDC GT SCH ×2 (09:31→21:22)
[2019-08-05 20:00] VITALS: BP 116/73
[2019-08-05] MEDS: MIRALAX 17 GM POWD.PACK GT SCH (21:22)
[2019-08-06] MEDS: JEVITY 1.2 1000 ML LIQUID GT PRN (02:59)
[2019-08-06] MEDS: OMEPRAZOLE 20 MG CAPSULE.DR GT SCH ×2 (05:50→21:18)
[2019-08-06] MEDS: IPRATROPIUM BROMIDE 0.5 MG/2.5 ML NEBU NEB SCH ×4 (07:10→19:07)
[2019-08-06] MEDS: ALBUTEROL SULFATE 2.5 MG/ 0.5 ML NEBU NEB SCH ×4 (07:10→19:07)
[2019-08-06 07:43] VITALS: BP 107/64
[2019-08-06 07:44] VITALS: BP 153/65
[2019-08-06] MEDS: VITAMINS A AND D OINT TP SCH ×3 (08:58→21:18)
[2019-08-06] MEDS: CETAPHIL TOP SCH ×2 (08:58→21:18)
[2019-08-06] MEDS: CHOLECALCIFEROL 400 UNITS TABLET GT SCH ×2 (08:58→21:18)
[2019-08-06] MEDS: PHENYTOIN 100 MG/4 ML UDC GT SCH ×2 (08:58→21:18)
[2019-08-06] MEDS: PROTEIN SUPPLEMENT (PROSTAT) 30 ML LIQUID GT SCH ×2 (08:58→21:18)
[2019-08-06] MEDS: PHENOBARBITAL 30 MG/7.5 ML LIQUID UDC GT SCH ×2 (08:58→21:18)
[2019-08-06] MEDS: Z GUARD REMEDY PASTE 57 GM TUBE TOP SCH ×2 (09:00→21:18)
[2019-08-06] MEDS: HYDROGEN PEROXIDE 3% 118 ML BOTTLE TOP SCH ×2 (09:00→21:04)
--- NOTE | 2019-08-06 17:39 | NUR ---
Seen by Dr. Vance with no new order.
[2019-08-06 20:11] VITALS: BP 137/77
[2019-08-06] MEDS: MIRALAX 17 GM POWD.PACK GT SCH (21:18)
[2019-08-07] MEDS: JEVITY 1.2 1000 ML LIQUID GT PRN (03:05)
[2019-08-07] MEDS: OMEPRAZOLE 20 MG CAPSULE.DR GT SCH ×2 (05:43→21:18)
[2019-08-07] MEDS: HYDROGEN PEROXIDE 3% 118 ML BOTTLE TOP SCH ×2 (07:02→21:28)
[2019-08-07] MEDS: ALBUTEROL SULFATE 2.5 MG/ 0.5 ML NEBU NEB SCH ×4 (07:02→19:00)
[2019-08-07] MEDS: IPRATROPIUM BROMIDE 0.5 MG/2.5 ML NEBU NEB SCH ×4 (07:02→19:00)
[2019-08-07 07:54] VITALS: BP 135/80
[2019-08-07] MEDS: CHOLECALCIFEROL 400 UNITS TABLET GT SCH ×2 (09:04→21:18)
[2019-08-07] MEDS: PHENOBARBITAL 30 MG/7.5 ML LIQUID UDC GT SCH ×2 (09:04→21:18)
[2019-08-07] MEDS: CETAPHIL TOP SCH ×2 (09:04→21:18)
[2019-08-07] MEDS: VITAMINS A AND D OINT TP SCH ×3 (09:04→21:19)
[2019-08-07] MEDS: PHENYTOIN 100 MG/4 ML UDC GT SCH ×2 (09:04→21:18)
[2019-08-07] MEDS: PROTEIN SUPPLEMENT (PROSTAT) 30 ML LIQUID GT SCH ×2 (09:04→21:18)
[2019-08-07] MEDS: Z GUARD REMEDY PASTE 57 GM TUBE TOP SCH ×2 (09:04→21:23)
[2019-08-07 20:01] VITALS: BP 129/69
[2019-08-07] MEDS: MIRALAX 17 GM POWD.PACK GT SCH (21:18)
[2019-08-08] MEDS: JEVITY 1.2 1000 ML LIQUID GT PRN (00:38)
[2019-08-08] MEDS: OMEPRAZOLE 20 MG CAPSULE.DR GT SCH ×2 (05:41→21:23)
[2019-08-08] MEDS: IPRATROPIUM BROMIDE 0.5 MG/2.5 ML NEBU NEB SCH ×4 (07:13→19:02)
[2019-08-08] MEDS: ALBUTEROL SULFATE 2.5 MG/ 0.5 ML NEBU NEB SCH ×4 (07:13→19:02)
[2019-08-08 08:01] VITALS: BP 130/79
[2019-08-08] MEDS: PROTEIN SUPPLEMENT (PROSTAT) 30 ML LIQUID GT SCH ×2 (08:37→21:23)
[2019-08-08] MEDS: PHENOBARBITAL 30 MG/7.5 ML LIQUID UDC GT SCH ×2 (08:37→21:23)
[2019-08-08] MEDS: Z GUARD REMEDY PASTE 57 GM TUBE TOP SCH ×2 (08:37→21:23)
[2019-08-08] MEDS: CHOLECALCIFEROL 400 UNITS TABLET GT SCH ×2 (08:37→21:23)
[2019-08-08] MEDS: PHENYTOIN 100 MG/4 ML UDC GT SCH ×2 (08:37→21:23)
[2019-08-08] MEDS: CETAPHIL TOP SCH ×2 (08:37→21:23)
[2019-08-08] MEDS: VITAMINS A AND D OINT TP SCH ×3 (08:37→21:23)
[2019-08-08] MEDS: HYDROGEN PEROXIDE 3% 118 ML BOTTLE TOP SCH ×2 (08:40→21:03)
[2019-08-08 20:02] VITALS: BP 138/83
[2019-08-08] MEDS: MIRALAX 17 GM POWD.PACK GT SCH (21:23)
[2019-08-09] MEDS: chlorproMAZINE 25 MG TABLET GT PRN (00:35)
[2019-08-09] MEDS: JEVITY 1.2 1000 ML LIQUID GT PRN (02:48)
[2019-08-09] MEDS: OMEPRAZOLE 20 MG CAPSULE.DR GT SCH ×2 (05:42→21:00)
[2019-08-09 07:45] VITALS: BP 118/84
[2019-08-09] MEDS: IPRATROPIUM BROMIDE 0.5 MG/2.5 ML NEBU NEB SCH ×4 (07:46→19:17)
[2019-08-09] MEDS: ALBUTEROL SULFATE 2.5 MG/ 0.5 ML NEBU NEB SCH ×4 (07:46→19:17)
[2019-08-09] MEDS: HYDROGEN PEROXIDE 3% 118 ML BOTTLE TOP SCH ×2 (08:23→21:37)
[2019-08-09] MEDS: PHENYTOIN 100 MG/4 ML UDC GT SCH ×2 (08:24→21:00)
[2019-08-09] MEDS: PHENOBARBITAL 30 MG/7.5 ML LIQUID UDC GT SCH ×2 (08:24→21:00)
[2019-08-09] MEDS: VITAMINS A AND D OINT TP SCH ×3 (08:25→21:00)
[2019-08-09] MEDS: Z GUARD REMEDY PASTE 57 GM TUBE TOP SCH ×2 (08:25→21:00)
[2019-08-09] MEDS: PROTEIN SUPPLEMENT (PROSTAT) 30 ML LIQUID GT SCH ×2 (08:25→21:00)
[2019-08-09] MEDS: CETAPHIL TOP SCH ×2 (08:25→21:00)
[2019-08-09] MEDS: CHOLECALCIFEROL 400 UNITS TABLET GT SCH ×2 (08:25→21:00)
[2019-08-09 19:57] VITALS: BP 125/81
[2019-08-09] MEDS: MIRALAX 17 GM POWD.PACK GT SCH (21:00)
[2019-08-10] MEDS: OMEPRAZOLE 20 MG CAPSULE.DR GT SCH ×2 (05:40→21:51)
[2019-08-10 07:40] VITALS: BP 117/80
[2019-08-10] MEDS: ALBUTEROL SULFATE 2.5 MG/ 0.5 ML NEBU NEB SCH ×4 (07:48→19:29)
[2019-08-10] MEDS: IPRATROPIUM BROMIDE 0.5 MG/2.5 ML NEBU NEB SCH ×4 (07:48→19:29)
[2019-08-10] MEDS: HYDROGEN PEROXIDE 3% 118 ML BOTTLE TOP SCH ×2 (08:44→21:06)
[2019-08-10] MEDS: PHENYTOIN 100 MG/4 ML UDC GT SCH ×2 (08:52→21:51)
[2019-08-10] MEDS: PROTEIN SUPPLEMENT (PROSTAT) 30 ML LIQUID GT SCH ×2 (08:55→21:51)
[2019-08-10] MEDS: PHENOBARBITAL 30 MG/7.5 ML LIQUID UDC GT SCH ×2 (08:55→21:51)
[2019-08-10] MEDS: CHOLECALCIFEROL 400 UNITS TABLET GT SCH ×2 (08:55→21:51)
[2019-08-10] MEDS: VITAMINS A AND D OINT TP SCH ×3 (09:00→21:52)
[2019-08-10] MEDS: Z GUARD REMEDY PASTE 57 GM TUBE TOP SCH ×2 (09:00→21:52)
[2019-08-10] MEDS: CETAPHIL TOP SCH ×2 (09:00→21:52)
[2019-08-10] MEDS: JEVITY 1.2 1000 ML LIQUID GT PRN (17:29)
[2019-08-10 19:48] VITALS: BP 129/78
[2019-08-10] MEDS: MIRALAX 17 GM POWD.PACK GT SCH (21:51)
[2019-08-11] MEDS: OMEPRAZOLE 20 MG CAPSULE.DR GT SCH ×2 (05:58→21:51)
[2019-08-11 07:56] VITALS: BP 119/75
[2019-08-11] MEDS: ALBUTEROL SULFATE 2.5 MG/ 0.5 ML NEBU NEB SCH ×4 (08:05→18:59)
[2019-08-11] MEDS: IPRATROPIUM BROMIDE 0.5 MG/2.5 ML NEBU NEB SCH ×4 (08:05→18:59)
[2019-08-11] MEDS: PHENYTOIN 100 MG/4 ML UDC GT SCH ×2 (08:38→21:50)
[2019-08-11] MEDS: CHOLECALCIFEROL 400 UNITS TABLET GT SCH ×2 (08:40→21:51)
[2019-08-11] MEDS: PHENOBARBITAL 30 MG/7.5 ML LIQUID UDC GT SCH ×2 (08:40→21:51)
[2019-08-11] MEDS: PROTEIN SUPPLEMENT (PROSTAT) 30 ML LIQUID GT SCH ×2 (08:40→21:51)
[2019-08-11] MEDS: VITAMINS A AND D OINT TP SCH ×3 (09:00→21:52)
[2019-08-11] MEDS: Z GUARD REMEDY PASTE 57 GM TUBE TOP SCH ×2 (09:00→21:52)
[2019-08-11] MEDS: CETAPHIL TOP SCH ×2 (09:00→21:52)
[2019-08-11] MEDS: HYDROGEN PEROXIDE 3% 118 ML BOTTLE TOP SCH ×2 (09:15→21:18)
--- NOTE | 2019-08-11 17:05 | NUR ---
New orders to do the Baseline [facility] Covid 19 test requirement.
[2019-08-11 19:48] VITALS: BP 110/70
[2019-08-11] MEDS: MIRALAX 17 GM POWD.PACK GT SCH (21:50)
[2019-08-12] MEDS: OMEPRAZOLE 20 MG CAPSULE.DR GT SCH ×2 (05:59→21:53)
[2019-08-12] MEDS: IPRATROPIUM BROMIDE 0.5 MG/2.5 ML NEBU NEB SCH ×4 (07:09→18:39)
[2019-08-12] MEDS: ALBUTEROL SULFATE 2.5 MG/ 0.5 ML NEBU NEB SCH ×4 (07:09→18:39)
[2019-08-12] MEDS: HYDROGEN PEROXIDE 3% 118 ML BOTTLE TOP SCH ×2 (07:09→18:39)
[2019-08-12 07:34] VITALS: BP 127/78
[2019-08-12] MEDS: PHENOBARBITAL 30 MG/7.5 ML LIQUID UDC GT SCH ×2 (08:51→21:53)
[2019-08-12] MEDS: PROTEIN SUPPLEMENT (PROSTAT) 30 ML LIQUID GT SCH ×2 (08:51→21:54)
[2019-08-12] MEDS: CHOLECALCIFEROL 400 UNITS TABLET GT SCH ×2 (08:51→21:54)
[2019-08-12] MEDS: PHENYTOIN 100 MG/4 ML UDC GT SCH ×2 (08:51→21:53)
[2019-08-12] MEDS: Z GUARD REMEDY PASTE 57 GM TUBE TOP SCH ×2 (08:52→21:54)
[2019-08-12] MEDS: VITAMINS A AND D OINT TP SCH ×3 (08:52→21:54)
[2019-08-12] MEDS: CETAPHIL TOP SCH ×2 (08:52→21:54)
[2019-08-12] MEDS: JEVITY 1.2 1000 ML LIQUID GT PRN (12:03)
[2019-08-12 20:00] VITALS: BP 150/81
[2019-08-12] MEDS: MIRALAX 17 GM POWD.PACK GT SCH (21:53)
[2019-08-13] MEDS: OMEPRAZOLE 20 MG CAPSULE.DR GT SCH ×2 (05:49→21:04)
[2019-08-13] MEDS: ALBUTEROL SULFATE 2.5 MG/ 0.5 ML NEBU NEB SCH ×4 (07:15→19:15)
[2019-08-13] MEDS: IPRATROPIUM BROMIDE 0.5 MG/2.5 ML NEBU NEB SCH ×4 (07:15→19:15)
[2019-08-13 07:50] VITALS: BP 131/79
[2019-08-13] MEDS: PHENYTOIN 100 MG/4 ML UDC GT SCH ×2 (08:37→21:04)
[2019-08-13] MEDS: PHENOBARBITAL 30 MG/7.5 ML LIQUID UDC GT SCH ×2 (08:37→21:04)
[2019-08-13] MEDS: HYDROGEN PEROXIDE 3% 118 ML BOTTLE TOP SCH ×2 (08:37→21:33)
[2019-08-13] MEDS: CHOLECALCIFEROL 400 UNITS TABLET GT SCH ×2 (08:38→21:04)
[2019-08-13] MEDS: VITAMINS A AND D OINT TP SCH ×3 (08:38→21:04)
[2019-08-13] MEDS: PROTEIN SUPPLEMENT (PROSTAT) 30 ML LIQUID GT SCH ×2 (08:38→21:04)
[2019-08-13] MEDS: CETAPHIL TOP SCH ×2 (08:38→21:04)
[2019-08-13] MEDS: Z GUARD REMEDY PASTE 57 GM TUBE TOP SCH ×2 (08:38→21:04)
[2019-08-13] MEDS: JEVITY 1.2 1000 ML LIQUID GT PRN (11:22)
--- NOTE | 2019-08-13 18:00 | NUR ---
PT. NEGATIVE FOR COVID 19 TEST.
[2019-08-13] MEDS: MIRALAX 17 GM POWD.PACK GT SCH (21:04)
[2019-08-13 22:40] VITALS: BP 121/79
[2019-08-14] MEDS: JEVITY 1.2 1000 ML LIQUID GT PRN ×2 (01:27→22:57)
[2019-08-14] MEDS: OMEPRAZOLE 20 MG CAPSULE.DR GT SCH ×2 (05:32→21:06)
[2019-08-14 07:38] VITALS: BP 140/78
[2019-08-14] MEDS: ALBUTEROL SULFATE 2.5 MG/ 0.5 ML NEBU NEB SCH ×4 (08:00→19:43)
[2019-08-14] MEDS: IPRATROPIUM BROMIDE 0.5 MG/2.5 ML NEBU NEB SCH ×4 (08:00→19:43)
[2019-08-14] MEDS: PHENOBARBITAL 30 MG/7.5 ML LIQUID UDC GT SCH ×2 (08:36→21:06)
[2019-08-14] MEDS: PHENYTOIN 100 MG/4 ML UDC GT SCH ×2 (08:36→21:06)
[2019-08-14] MEDS: PROTEIN SUPPLEMENT (PROSTAT) 30 ML LIQUID GT SCH ×2 (08:37→21:06)
[2019-08-14] MEDS: CETAPHIL TOP SCH ×2 (08:38→21:06)
[2019-08-14] MEDS: Z GUARD REMEDY PASTE 57 GM TUBE TOP SCH ×2 (08:38→21:06)
[2019-08-14] MEDS: CHOLECALCIFEROL 400 UNITS TABLET GT SCH ×2 (08:38→21:06)
[2019-08-14] MEDS: VITAMINS A AND D OINT TP SCH ×3 (08:40→21:06)
[2019-08-14] MEDS: HYDROGEN PEROXIDE 3% 118 ML BOTTLE TOP SCH ×2 (09:45→21:31)
--- NOTE | 2019-08-14 19:55 | NUR ---
PT RECEIVED ON CONTINUOUS VENT, TRACH IN PLACED AND SECURED WITH TRACH TIE. BACK UP TRACH AND AMBU BAG AT BEDSIDE. TRACH CARE DONE. IN LINE TX GIVEN WITH UD ALBUTEROL + UD ATROVENT ORDERED. SUCTION PRN. VENT CHECKED, ALARMS WORKING WELL AND AUDIBLE. NO DISTRESS NOTED AT THIS TIME. WILL CONTINUE TO MONITOR.
[2019-08-14] MEDS: MIRALAX 17 GM POWD.PACK GT SCH (21:06)
[2019-08-14 22:00] VITALS: BP 142/87
[2019-08-15] MEDS: OMEPRAZOLE 20 MG CAPSULE.DR GT SCH ×2 (05:35→20:57)
[2019-08-15] MEDS: ALBUTEROL SULFATE 2.5 MG/ 0.5 ML NEBU NEB SCH ×4 (07:10→19:56)
[2019-08-15] MEDS: IPRATROPIUM BROMIDE 0.5 MG/2.5 ML NEBU NEB SCH ×4 (07:10→19:56)
[2019-08-15 07:45] VITALS: BP 111/70
[2019-08-15] MEDS: PHENYTOIN 100 MG/4 ML UDC GT SCH ×2 (08:22→20:57)
[2019-08-15] MEDS: CHOLECALCIFEROL 400 UNITS TABLET GT SCH ×2 (08:23→20:57)
[2019-08-15] MEDS: PHENOBARBITAL 30 MG/7.5 ML LIQUID UDC GT SCH ×2 (08:23→20:57)
[2019-08-15] MEDS: CETAPHIL TOP SCH ×2 (08:23→20:57)
[2019-08-15] MEDS: PROTEIN SUPPLEMENT (PROSTAT) 30 ML LIQUID GT SCH ×2 (08:23→20:57)
[2019-08-15] MEDS: Z GUARD REMEDY PASTE 57 GM TUBE TOP SCH ×2 (08:24→20:57)
[2019-08-15] MEDS: VITAMINS A AND D OINT TP SCH ×3 (08:24→20:57)
[2019-08-15] MEDS: HYDROGEN PEROXIDE 3% 118 ML BOTTLE TOP SCH ×2 (08:48→21:25)
[2019-08-15] MEDS: JEVITY 1.2 1000 ML LIQUID GT PRN (15:33)
[2019-08-15] MEDS: MIRALAX 17 GM POWD.PACK GT SCH (20:57)
[2019-08-15 21:52] VITALS: BP 131/80
[2019-08-16] MEDS: OMEPRAZOLE 20 MG CAPSULE.DR GT SCH ×2 (05:32→20:26)
[2019-08-16] MEDS: ALBUTEROL SULFATE 2.5 MG/ 0.5 ML NEBU NEB SCH ×4 (07:09→19:02)
[2019-08-16] MEDS: IPRATROPIUM BROMIDE 0.5 MG/2.5 ML NEBU NEB SCH ×4 (07:09→19:02)
[2019-08-16] MEDS: HYDROGEN PEROXIDE 3% 118 ML BOTTLE TOP SCH ×2 (07:09→21:40)
[2019-08-16 07:20] VITALS: BP 125/83
[2019-08-16] MEDS: VITAMINS A AND D OINT TP SCH ×3 (08:23→20:28)
[2019-08-16] MEDS: PHENYTOIN 100 MG/4 ML UDC GT SCH ×2 (08:23→20:25)
[2019-08-16] MEDS: CHOLECALCIFEROL 400 UNITS TABLET GT SCH ×2 (08:23→20:26)
[2019-08-16] MEDS: CETAPHIL TOP SCH ×2 (08:23→20:28)
[2019-08-16] MEDS: PHENOBARBITAL 30 MG/7.5 ML LIQUID UDC GT SCH ×2 (08:23→20:26)
[2019-08-16] MEDS: Z GUARD REMEDY PASTE 57 GM TUBE TOP SCH ×2 (08:23→20:28)
[2019-08-16] MEDS: PROTEIN SUPPLEMENT (PROSTAT) 30 ML LIQUID GT SCH ×2 (08:23→20:26)
[2019-08-16] MEDS: JEVITY 1.2 1000 ML LIQUID GT PRN (12:10)
[2019-08-16 20:05] VITALS: BP 144/78
[2019-08-16] MEDS: MIRALAX 17 GM POWD.PACK GT SCH (20:26)
[2019-08-17] MEDS: OMEPRAZOLE 20 MG CAPSULE.DR GT SCH ×2 (05:53→21:43)
[2019-08-17] MEDS: ALBUTEROL SULFATE 2.5 MG/ 0.5 ML NEBU NEB SCH ×4 (08:00→20:09)
[2019-08-17] MEDS: IPRATROPIUM BROMIDE 0.5 MG/2.5 ML NEBU NEB SCH ×4 (08:00→20:09)
[2019-08-17 08:14] VITALS: BP 136/84
[2019-08-17] MEDS: HYDROGEN PEROXIDE 3% 118 ML BOTTLE TOP SCH ×2 (08:55→21:25)
[2019-08-17] MEDS: PHENOBARBITAL 30 MG/7.5 ML LIQUID UDC GT SCH ×2 (09:00→21:42)
[2019-08-17] MEDS: PROTEIN SUPPLEMENT (PROSTAT) 30 ML LIQUID GT SCH ×2 (09:00→21:44)
[2019-08-17] MEDS: PHENYTOIN 100 MG/4 ML UDC GT SCH ×2 (09:00→21:42)
[2019-08-17] MEDS: Z GUARD REMEDY PASTE 57 GM TUBE TOP SCH ×2 (09:00→21:44)
[2019-08-17] MEDS: CHOLECALCIFEROL 400 UNITS TABLET GT SCH ×2 (09:00→21:44)
[2019-08-17] MEDS: CETAPHIL TOP SCH ×2 (09:00→21:44)
[2019-08-17] MEDS: VITAMINS A AND D OINT TP SCH ×3 (09:01→21:45)
[2019-08-17] MEDS: JEVITY 1.2 1000 ML LIQUID GT PRN (10:51)
[2019-08-17 20:23] VITALS: BP 143/84
[2019-08-17] MEDS: MIRALAX 17 GM POWD.PACK GT SCH (21:42)
[2019-08-18] MEDS: OMEPRAZOLE 20 MG CAPSULE.DR GT SCH ×2 (05:34→21:00)
[2019-08-18] MEDS: JEVITY 1.2 1000 ML LIQUID GT PRN (06:00)
[2019-08-18 07:44] VITALS: BP 120/67
[2019-08-18] MEDS: IPRATROPIUM BROMIDE 0.5 MG/2.5 ML NEBU NEB SCH ×4 (07:51→18:59)
[2019-08-18] MEDS: ALBUTEROL SULFATE 2.5 MG/ 0.5 ML NEBU NEB SCH ×4 (07:51→18:59)
[2019-08-18] MEDS: CETAPHIL TOP SCH ×2 (08:59→21:00)
[2019-08-18] MEDS: CHOLECALCIFEROL 400 UNITS TABLET GT SCH ×2 (08:59→21:00)
[2019-08-18] MEDS: PROTEIN SUPPLEMENT (PROSTAT) 30 ML LIQUID GT SCH ×2 (08:59→21:00)
[2019-08-18] MEDS: PHENYTOIN 100 MG/4 ML UDC GT SCH ×2 (08:59→21:00)
[2019-08-18] MEDS: HYDROGEN PEROXIDE 3% 118 ML BOTTLE TOP SCH ×2 (09:00→21:45)
[2019-08-18] MEDS: VITAMINS A AND D OINT TP SCH ×3 (09:00→21:00)
[2019-08-18] MEDS: PHENOBARBITAL 30 MG/7.5 ML LIQUID UDC GT SCH ×2 (09:00→21:00)
[2019-08-18] MEDS: Z GUARD REMEDY PASTE 57 GM TUBE TOP SCH ×2 (09:00→21:00)
--- NOTE | 2019-08-18 12:30 | NUR ---
Trach change not done. Spoke to central supply; no available shiley #8.0 xlt distal trach. Charge nurse Chacha krishnan.
[2019-08-18 20:00] VITALS: BP 123/79
[2019-08-18] MEDS: MIRALAX 17 GM POWD.PACK GT SCH (21:00)
[2019-08-19] MEDS: JEVITY 1.2 1000 ML LIQUID GT PRN (03:36)
[2019-08-19] MEDS: OMEPRAZOLE 20 MG CAPSULE.DR GT SCH ×2 (05:56→21:00)
[2019-08-19] MEDS: IPRATROPIUM BROMIDE 0.5 MG/2.5 ML NEBU NEB SCH ×4 (07:42→19:02)
[2019-08-19] MEDS: ALBUTEROL SULFATE 2.5 MG/ 0.5 ML NEBU NEB SCH ×4 (07:42→19:02)
[2019-08-19 07:43] VITALS: BP 120/62
[2019-08-19] MEDS: HYDROGEN PEROXIDE 3% 118 ML BOTTLE TOP SCH ×2 (09:00→21:15)
[2019-08-19] MEDS: CETAPHIL TOP SCH ×2 (09:26→21:00)
[2019-08-19] MEDS: PHENYTOIN 100 MG/4 ML UDC GT SCH ×2 (09:26→21:00)
[2019-08-19] MEDS: CHOLECALCIFEROL 400 UNITS TABLET GT SCH ×2 (09:26→21:00)
[2019-08-19] MEDS: PHENOBARBITAL 30 MG/7.5 ML LIQUID UDC GT SCH ×2 (09:26→21:00)
[2019-08-19] MEDS: VITAMINS A AND D OINT TP SCH ×3 (09:26→21:00)
[2019-08-19] MEDS: Z GUARD REMEDY PASTE 57 GM TUBE TOP SCH ×2 (09:26→21:00)
[2019-08-19] MEDS: PROTEIN SUPPLEMENT (PROSTAT) 30 ML LIQUID GT SCH ×2 (09:26→21:00)
[2019-08-19 20:07] VITALS: BP 115/80
[2019-08-19] MEDS: MIRALAX 17 GM POWD.PACK GT SCH (21:00)
[2019-08-20] MEDS: JEVITY 1.2 1000 ML LIQUID GT PRN (03:56)
[2019-08-20] MEDS: OMEPRAZOLE 20 MG CAPSULE.DR GT SCH ×2 (05:39→21:44)
[2019-08-20] MEDS: ALBUTEROL SULFATE 2.5 MG/ 0.5 ML NEBU NEB SCH ×4 (07:27→19:49)
[2019-08-20] MEDS: IPRATROPIUM BROMIDE 0.5 MG/2.5 ML NEBU NEB SCH ×4 (07:27→19:49)
[2019-08-20 07:44] VITALS: BP 112/68
[2019-08-20] MEDS: PHENYTOIN 100 MG/4 ML UDC GT SCH ×2 (08:34→21:44)
[2019-08-20] MEDS: PHENOBARBITAL 30 MG/7.5 ML LIQUID UDC GT SCH ×2 (08:35→21:44)
[2019-08-20] MEDS: PROTEIN SUPPLEMENT (PROSTAT) 30 ML LIQUID GT SCH ×2 (08:35→21:44)
[2019-08-20] MEDS: CHOLECALCIFEROL 400 UNITS TABLET GT SCH ×2 (08:36→21:44)
[2019-08-20] MEDS: Z GUARD REMEDY PASTE 57 GM TUBE TOP SCH ×2 (08:37→21:44)
[2019-08-20] MEDS: CETAPHIL TOP SCH ×2 (08:37→21:44)
[2019-08-20] MEDS: VITAMINS A AND D OINT TP SCH ×3 (08:37→21:45)
[2019-08-20] MEDS: HYDROGEN PEROXIDE 3% 118 ML BOTTLE TOP SCH ×2 (09:56→21:25)
[2019-08-20 20:01] VITALS: BP 125/74
[2019-08-20] MEDS: MIRALAX 17 GM POWD.PACK GT SCH (21:44)
[2019-08-21] MEDS: JEVITY 1.2 1000 ML LIQUID GT PRN (02:02)
[2019-08-21] MEDS: OMEPRAZOLE 20 MG CAPSULE.DR GT SCH ×2 (06:39→20:02)
[2019-08-21] MEDS: ALBUTEROL SULFATE 2.5 MG/ 0.5 ML NEBU NEB SCH ×4 (07:13→19:10)
[2019-08-21] MEDS: IPRATROPIUM BROMIDE 0.5 MG/2.5 ML NEBU NEB SCH ×4 (07:13→19:10)
[2019-08-21 07:54] VITALS: BP 110/75
[2019-08-21] MEDS: HYDROGEN PEROXIDE 3% 118 ML BOTTLE TOP SCH ×2 (08:40→21:01)
[2019-08-21] MEDS: PHENYTOIN 100 MG/4 ML UDC GT SCH ×2 (08:43→20:02)
[2019-08-21] MEDS: PHENOBARBITAL 30 MG/7.5 ML LIQUID UDC GT SCH ×2 (08:43→20:02)
[2019-08-21] MEDS: PROTEIN SUPPLEMENT (PROSTAT) 30 ML LIQUID GT SCH ×2 (08:45→20:02)
[2019-08-21] MEDS: Z GUARD REMEDY PASTE 57 GM TUBE TOP SCH ×2 (08:46→20:02)
[2019-08-21] MEDS: CETAPHIL TOP SCH ×2 (08:46→20:02)
[2019-08-21] MEDS: VITAMINS A AND D OINT TP SCH ×3 (08:46→20:02)
[2019-08-21] MEDS: CHOLECALCIFEROL 400 UNITS TABLET GT SCH ×2 (08:46→20:02)
[2019-08-21 19:51] VITALS: BP 122/70
[2019-08-21] MEDS: MIRALAX 17 GM POWD.PACK GT SCH (20:02)
[2019-08-22] MEDS: OMEPRAZOLE 20 MG CAPSULE.DR GT SCH ×2 (05:38→21:28)
[2019-08-22] MEDS: JEVITY 1.2 1000 ML LIQUID GT PRN (05:38)
[2019-08-22] MEDS: HYDROGEN PEROXIDE 3% 118 ML BOTTLE TOP SCH ×2 (07:17→21:16)
[2019-08-22] MEDS: ALBUTEROL SULFATE 2.5 MG/ 0.5 ML NEBU NEB SCH ×4 (07:17→19:07)
[2019-08-22] MEDS: IPRATROPIUM BROMIDE 0.5 MG/2.5 ML NEBU NEB SCH ×4 (07:17→19:07)
[2019-08-22 07:43] VITALS: BP 127/74
[2019-08-22] MEDS: PHENOBARBITAL 30 MG/7.5 ML LIQUID UDC GT SCH ×2 (09:50→21:28)
[2019-08-22] MEDS: PHENYTOIN 100 MG/4 ML UDC GT SCH ×2 (09:50→21:28)
[2019-08-22] MEDS: VITAMINS A AND D OINT TP SCH ×3 (09:51→21:29)
[2019-08-22] MEDS: Z GUARD REMEDY PASTE 57 GM TUBE TOP SCH ×2 (09:51→21:29)
[2019-08-22] MEDS: PROTEIN SUPPLEMENT (PROSTAT) 30 ML LIQUID GT SCH ×2 (09:51→21:28)
[2019-08-22] MEDS: CETAPHIL TOP SCH ×2 (09:51→21:29)
[2019-08-22] MEDS: CHOLECALCIFEROL 400 UNITS TABLET GT SCH ×2 (09:51→21:29)
[2019-08-22 19:58] VITALS: BP 128/73
[2019-08-22] MEDS: MIRALAX 17 GM POWD.PACK GT SCH (21:28)
[2019-08-23] MEDS: JEVITY 1.2 1000 ML LIQUID GT PRN ×2 (02:24→23:55)
[2019-08-23] MEDS: OMEPRAZOLE 20 MG CAPSULE.DR GT SCH ×2 (05:56→20:34)
[2019-08-23 07:36] VITALS: BP 130/87
[2019-08-23] MEDS: HYDROGEN PEROXIDE 3% 118 ML BOTTLE TOP SCH ×2 (08:02→21:17)
[2019-08-23] MEDS: IPRATROPIUM BROMIDE 0.5 MG/2.5 ML NEBU NEB SCH ×4 (08:02→18:50)
[2019-08-23] MEDS: ALBUTEROL SULFATE 2.5 MG/ 0.5 ML NEBU NEB SCH ×4 (08:02→18:50)
[2019-08-23] MEDS: PROTEIN SUPPLEMENT (PROSTAT) 30 ML LIQUID GT SCH ×2 (09:25→20:40)
[2019-08-23] MEDS: Z GUARD REMEDY PASTE 57 GM TUBE TOP SCH ×2 (09:25→20:41)
[2019-08-23] MEDS: CHOLECALCIFEROL 400 UNITS TABLET GT SCH ×2 (09:25→20:40)
[2019-08-23] MEDS: CETAPHIL TOP SCH ×2 (09:25→20:41)
[2019-08-23] MEDS: VITAMINS A AND D OINT TP SCH ×3 (09:25→20:41)
[2019-08-23] MEDS: PHENYTOIN 100 MG/4 ML UDC GT SCH ×2 (09:25→20:34)
[2019-08-23] MEDS: PHENOBARBITAL 30 MG/7.5 ML LIQUID UDC GT SCH ×2 (09:25→20:34)
[2019-08-23 20:24] VITALS: BP 133/79
[2019-08-23] MEDS: MIRALAX 17 GM POWD.PACK GT SCH (20:34)
[2019-08-24] MEDS: OMEPRAZOLE 20 MG CAPSULE.DR GT SCH ×2 (05:42→21:08)
[2019-08-24 07:44] VITALS: BP 126/80
[2019-08-24] MEDS: IPRATROPIUM BROMIDE 0.5 MG/2.5 ML NEBU NEB SCH ×4 (07:59→18:53)
[2019-08-24] MEDS: ALBUTEROL SULFATE 2.5 MG/ 0.5 ML NEBU NEB SCH ×4 (07:59→18:53)
[2019-08-24] MEDS: PHENOBARBITAL 30 MG/7.5 ML LIQUID UDC GT SCH ×2 (08:09→21:08)
[2019-08-24] MEDS: PROTEIN SUPPLEMENT (PROSTAT) 30 ML LIQUID GT SCH ×2 (08:09→21:08)
[2019-08-24] MEDS: CHOLECALCIFEROL 400 UNITS TABLET GT SCH ×2 (08:09→21:09)
[2019-08-24] MEDS: PHENYTOIN 100 MG/4 ML UDC GT SCH ×2 (08:09→21:06)
[2019-08-24] MEDS: CETAPHIL TOP SCH ×2 (08:09→21:09)
[2019-08-24] MEDS: VITAMINS A AND D OINT TP SCH ×3 (08:10→21:09)
[2019-08-24] MEDS: Z GUARD REMEDY PASTE 57 GM TUBE TOP SCH ×2 (08:10→21:09)
[2019-08-24] MEDS: HYDROGEN PEROXIDE 3% 118 ML BOTTLE TOP SCH ×2 (09:00→21:27)
[2019-08-24 20:00] VITALS: BP 138/83
[2019-08-24] MEDS: MIRALAX 17 GM POWD.PACK GT SCH (21:06)
[2019-08-25] MEDS: OMEPRAZOLE 20 MG CAPSULE.DR GT SCH ×2 (06:50→21:51)
[2019-08-25] MEDS: ALBUTEROL SULFATE 2.5 MG/ 0.5 ML NEBU NEB SCH ×4 (07:12→19:11)
[2019-08-25] MEDS: IPRATROPIUM BROMIDE 0.5 MG/2.5 ML NEBU NEB SCH ×4 (07:12→19:11)
[2019-08-25 07:56] VITALS: BP 133/77
[2019-08-25] MEDS: HYDROGEN PEROXIDE 3% 118 ML BOTTLE TOP SCH ×2 (08:40→21:14)
[2019-08-25] MEDS: PHENYTOIN 100 MG/4 ML UDC GT SCH ×2 (08:56→21:51)
[2019-08-25] MEDS: CHOLECALCIFEROL 400 UNITS TABLET GT SCH ×2 (08:58→21:51)
[2019-08-25] MEDS: PROTEIN SUPPLEMENT (PROSTAT) 30 ML LIQUID GT SCH ×2 (08:58→21:51)
[2019-08-25] MEDS: PHENOBARBITAL 30 MG/7.5 ML LIQUID UDC GT SCH ×2 (08:58→21:54)
[2019-08-25] MEDS: CETAPHIL TOP SCH ×2 (09:00→21:52)
[2019-08-25] MEDS: VITAMINS A AND D OINT TP SCH ×3 (09:00→21:52)
[2019-08-25] MEDS: Z GUARD REMEDY PASTE 57 GM TUBE TOP SCH ×2 (09:00→21:52)
[2019-08-25] MEDS: JEVITY 1.2 1000 ML LIQUID GT PRN (17:24)
[2019-08-25 20:07] VITALS: BP 133/81
[2019-08-25] MEDS: MIRALAX 17 GM POWD.PACK GT SCH (21:51)
[2019-08-26] MEDS: OMEPRAZOLE 20 MG CAPSULE.DR GT SCH ×2 (06:16→21:22)
[2019-08-26] MEDS: IPRATROPIUM BROMIDE 0.5 MG/2.5 ML NEBU NEB SCH ×4 (07:22→19:08)
[2019-08-26] MEDS: ALBUTEROL SULFATE 2.5 MG/ 0.5 ML NEBU NEB SCH ×4 (07:22→19:08)
[2019-08-26 08:00] VITALS: BP 116/70
[2019-08-26] MEDS: PHENYTOIN 100 MG/4 ML UDC GT SCH ×2 (08:16→21:21)
[2019-08-26] MEDS: PHENOBARBITAL 30 MG/7.5 ML LIQUID UDC GT SCH ×2 (08:18→21:21)
[2019-08-26] MEDS: PROTEIN SUPPLEMENT (PROSTAT) 30 ML LIQUID GT SCH ×2 (08:18→21:22)
[2019-08-26] MEDS: CHOLECALCIFEROL 400 UNITS TABLET GT SCH ×2 (08:18→21:22)
[2019-08-26] MEDS: Z GUARD REMEDY PASTE 57 GM TUBE TOP SCH ×2 (09:00→21:22)
[2019-08-26] MEDS: CETAPHIL TOP SCH ×2 (09:00→21:22)
[2019-08-26] MEDS: VITAMINS A AND D OINT TP SCH ×3 (09:00→21:22)
[2019-08-26] MEDS: HYDROGEN PEROXIDE 3% 118 ML BOTTLE TOP SCH ×2 (09:41→21:02)
[2019-08-26] MEDS: JEVITY 1.2 1000 ML LIQUID GT PRN (18:07)
[2019-08-26 20:11] VITALS: BP 125/70
[2019-08-26] MEDS: MIRALAX 17 GM POWD.PACK GT SCH (21:21)
[2019-08-27] MEDS: OMEPRAZOLE 20 MG CAPSULE.DR GT SCH ×2 (05:31→21:08)
[2019-08-27 07:48] VITALS: BP 140/81
[2019-08-27] MEDS: ALBUTEROL SULFATE 2.5 MG/ 0.5 ML NEBU NEB SCH ×4 (08:04→19:33)
[2019-08-27] MEDS: IPRATROPIUM BROMIDE 0.5 MG/2.5 ML NEBU NEB SCH ×4 (08:04→19:33)
[2019-08-27] MEDS: PHENYTOIN 100 MG/4 ML UDC GT SCH ×2 (08:42→21:08)
[2019-08-27] MEDS: PHENOBARBITAL 30 MG/7.5 ML LIQUID UDC GT SCH ×2 (08:42→21:08)
[2019-08-27] MEDS: PROTEIN SUPPLEMENT (PROSTAT) 30 ML LIQUID GT SCH ×2 (08:44→21:09)
[2019-08-27] MEDS: CHOLECALCIFEROL 400 UNITS TABLET GT SCH ×2 (08:44→21:09)
[2019-08-27] MEDS: HYDROGEN PEROXIDE 3% 118 ML BOTTLE TOP SCH ×2 (08:58→21:05)
[2019-08-27] MEDS: Z GUARD REMEDY PASTE 57 GM TUBE TOP SCH ×2 (09:00→21:09)
[2019-08-27] MEDS: CETAPHIL TOP SCH ×2 (09:00→21:09)
[2019-08-27] MEDS: VITAMINS A AND D OINT TP SCH ×3 (09:00→21:09)
--- NOTE | 2019-08-27 15:57 | NUR ---
3:50pm: MCKENNA called patient's mother KAUSHIK [phone] to check in. KAUSHIK was available and receptive to speaking with this SW. MCKENNA asked KAUSHIK if she had any questions/concerns at this time, and inquired about how communication has been with the nurses. KAUSHIK stated that she continues to be in constant communication with the nurses, and that the nurses have been very informative and helpful whenever she has called to check on the patient. KAUSHIK expressed being anxious about wanting to visit the patient, but stated that she understands the importance of the restrictions. MCKENNA validated KAUSHIK's feelings, and explained to KAUSHIK that there have been no new update or changes from the health department regarding the lifting of the restrictions. MCKENNA reassured KAUSHIK that as soon as the facility is notified by the health department that visitations can resume, that all family members would be notified. KAUSHIK expressed understanding and agreement, and thanked this SW for her call and for all the work that the subacute staff have been doing to take care of the patient. MCKENNA will continue to check-in with the patient's family, as needed.
[2019-08-27] MEDS: JEVITY 1.2 1000 ML LIQUID GT PRN (18:03)
[2019-08-27 20:01] VITALS: BP 130/85
[2019-08-27] MEDS: MIRALAX 17 GM POWD.PACK GT SCH (21:08)
[2019-08-28] MEDS: OMEPRAZOLE 20 MG CAPSULE.DR GT SCH ×2 (05:37→21:07)
[2019-08-28] MEDS: IPRATROPIUM BROMIDE 0.5 MG/2.5 ML NEBU NEB SCH ×4 (07:06→19:42)
[2019-08-28] MEDS: ALBUTEROL SULFATE 2.5 MG/ 0.5 ML NEBU NEB SCH ×4 (07:06→19:42)
[2019-08-28 07:38] VITALS: BP 124/60
[2019-08-28] MEDS: Z GUARD REMEDY PASTE 57 GM TUBE TOP SCH ×2 (08:17→21:08)
[2019-08-28] MEDS: VITAMINS A AND D OINT TP SCH ×3 (08:17→21:08)
[2019-08-28] MEDS: PROTEIN SUPPLEMENT (PROSTAT) 30 ML LIQUID GT SCH ×2 (08:17→21:07)
[2019-08-28] MEDS: PHENOBARBITAL 30 MG/7.5 ML LIQUID UDC GT SCH ×2 (08:17→21:07)
[2019-08-28] MEDS: PHENYTOIN 100 MG/4 ML UDC GT SCH ×2 (08:17→21:07)
[2019-08-28] MEDS: CHOLECALCIFEROL 400 UNITS TABLET GT SCH ×2 (08:17→21:07)
[2019-08-28] MEDS: CETAPHIL TOP SCH ×2 (08:17→21:08)
[2019-08-28] MEDS: HYDROGEN PEROXIDE 3% 118 ML BOTTLE TOP SCH ×2 (08:41→21:42)
[2019-08-28] MEDS: JEVITY 1.2 1000 ML LIQUID GT PRN (16:33)
--- NOTE | 2019-08-28 19:45 | NUR ---
PT RECEIVED ON CONTINUOUS VENT, TRACH CARE DONE. TRACH IN PLACED AND SECURED WITH TRACH TIE. BACK UP TRACH AND AMBU BAG AT BEDSIDE. IN LINE TX GIVEN WITH UD ALBUTEROL + UD ATROVENT ORDERED. SUCTION PRN. VENT CHECKED, ALARMS WORKING WELL AND AUDIBLE. NO DISTRESS NOTED AT THIS TIME. WILL CONTINUE TO MONITOR.
[2019-08-28 20:26] VITALS: BP 137/72
[2019-08-28] MEDS: MIRALAX 17 GM POWD.PACK GT SCH (21:07)
[2019-08-29] MEDS: OMEPRAZOLE 20 MG CAPSULE.DR GT SCH ×2 (06:08→21:38)
[2019-08-29 07:46] VITALS: BP 137/83
[2019-08-29] MEDS: IPRATROPIUM BROMIDE 0.5 MG/2.5 ML NEBU NEB SCH ×4 (08:01→19:14)
[2019-08-29] MEDS: ALBUTEROL SULFATE 2.5 MG/ 0.5 ML NEBU NEB SCH ×4 (08:01→19:14)
[2019-08-29] MEDS: CHOLECALCIFEROL 400 UNITS TABLET GT SCH ×2 (08:11→21:38)
[2019-08-29] MEDS: PROTEIN SUPPLEMENT (PROSTAT) 30 ML LIQUID GT SCH ×2 (08:11→21:38)
[2019-08-29] MEDS: CETAPHIL TOP SCH ×2 (08:11→21:38)
[2019-08-29] MEDS: PHENYTOIN 100 MG/4 ML UDC GT SCH ×2 (08:11→21:38)
[2019-08-29] MEDS: VITAMINS A AND D OINT TP SCH ×3 (08:11→21:38)
[2019-08-29] MEDS: Z GUARD REMEDY PASTE 57 GM TUBE TOP SCH ×2 (08:11→21:38)
[2019-08-29] MEDS: PHENOBARBITAL 30 MG/7.5 ML LIQUID UDC GT SCH ×2 (08:11→21:38)
[2019-08-29] MEDS: HYDROGEN PEROXIDE 3% 118 ML BOTTLE TOP SCH ×2 (08:33→21:33)
[2019-08-29] MEDS: JEVITY 1.2 1000 ML LIQUID GT PRN (13:17)
[2019-08-29 20:24] VITALS: BP 125/80
[2019-08-29] MEDS: MIRALAX 17 GM POWD.PACK GT SCH (21:38)
[2019-08-30] MEDS: OMEPRAZOLE 20 MG CAPSULE.DR GT SCH ×2 (05:42→21:52)
--- NOTE | 2019-08-30 06:24 | NUR ---
Seen by Fnany No NP with no new orders.
[2019-08-30] MEDS: ALBUTEROL SULFATE 2.5 MG/ 0.5 ML NEBU NEB SCH ×4 (07:18→19:19)
[2019-08-30] MEDS: IPRATROPIUM BROMIDE 0.5 MG/2.5 ML NEBU NEB SCH ×4 (07:18→19:19)
[2019-08-30 07:45] VITALS: BP 119/75
[2019-08-30] MEDS: PHENYTOIN 100 MG/4 ML UDC GT SCH ×2 (08:11→21:52)
[2019-08-30] MEDS: CETAPHIL TOP SCH ×2 (08:12→21:52)
[2019-08-30] MEDS: VITAMINS A AND D OINT TP SCH ×3 (08:12→21:52)
[2019-08-30] MEDS: Z GUARD REMEDY PASTE 57 GM TUBE TOP SCH ×2 (08:12→21:52)
[2019-08-30] MEDS: PROTEIN SUPPLEMENT (PROSTAT) 30 ML LIQUID GT SCH ×2 (08:12→21:52)
[2019-08-30] MEDS: CHOLECALCIFEROL 400 UNITS TABLET GT SCH ×2 (08:12→21:52)
[2019-08-30] MEDS: PHENOBARBITAL 30 MG/7.5 ML LIQUID UDC GT SCH ×2 (08:12→21:52)
[2019-08-30] MEDS: HYDROGEN PEROXIDE 3% 118 ML BOTTLE TOP SCH ×2 (09:25→21:46)
[2019-08-30] MEDS: JEVITY 1.2 1000 ML LIQUID GT PRN (12:34)
[2019-08-30 20:18] VITALS: BP 118/74
[2019-08-30] MEDS: MIRALAX 17 GM POWD.PACK GT SCH (21:52)
[2019-08-31] MEDS: OMEPRAZOLE 20 MG CAPSULE.DR GT SCH ×2 (06:51→21:48)
[2019-08-31] MEDS: ALBUTEROL SULFATE 2.5 MG/ 0.5 ML NEBU NEB SCH ×4 (07:05→19:10)
[2019-08-31] MEDS: IPRATROPIUM BROMIDE 0.5 MG/2.5 ML NEBU NEB SCH ×4 (07:05→19:10)
[2019-08-31 07:53] VITALS: BP 151/78
[2019-08-31] MEDS: CETAPHIL TOP SCH ×2 (08:35→21:48)
[2019-08-31] MEDS: PROTEIN SUPPLEMENT (PROSTAT) 30 ML LIQUID GT SCH ×2 (08:35→21:48)
[2019-08-31] MEDS: VITAMINS A AND D OINT TP SCH ×3 (08:35→21:48)
[2019-08-31] MEDS: CHOLECALCIFEROL 400 UNITS TABLET GT SCH ×2 (08:35→21:48)
[2019-08-31] MEDS: PHENOBARBITAL 30 MG/7.5 ML LIQUID UDC GT SCH ×2 (08:35→21:48)
[2019-08-31] MEDS: Z GUARD REMEDY PASTE 57 GM TUBE TOP SCH ×2 (08:35→21:48)
[2019-08-31] MEDS: PHENYTOIN 100 MG/4 ML UDC GT SCH ×2 (08:35→21:48)
[2019-08-31] MEDS: HYDROGEN PEROXIDE 3% 118 ML BOTTLE TOP SCH ×2 (09:48→21:15)
[2019-08-31] MEDS: JEVITY 1.2 1000 ML LIQUID GT PRN (12:18)
[2019-08-31 20:19] VITALS: BP 130/78
[2019-08-31] MEDS: MIRALAX 17 GM POWD.PACK GT SCH (21:48)
[2019-09-01] MEDS: JEVITY 1.2 1000 ML LIQUID GT PRN (05:00)
[2019-09-01] MEDS: OMEPRAZOLE 20 MG CAPSULE.DR GT SCH ×2 (06:20→21:47)
[2019-09-01 07:44] VITALS: BP 130/53
[2019-09-01] MEDS: ALBUTEROL SULFATE 2.5 MG/ 0.5 ML NEBU NEB SCH ×4 (08:01→18:59)
[2019-09-01] MEDS: IPRATROPIUM BROMIDE 0.5 MG/2.5 ML NEBU NEB SCH ×4 (08:01→18:59)
[2019-09-01] MEDS: PHENYTOIN 100 MG/4 ML UDC GT SCH ×2 (08:36→21:47)
[2019-09-01] MEDS: PHENOBARBITAL 30 MG/7.5 ML LIQUID UDC GT SCH ×2 (08:39→21:47)
[2019-09-01] MEDS: PROTEIN SUPPLEMENT (PROSTAT) 30 ML LIQUID GT SCH ×2 (08:39→21:47)
[2019-09-01] MEDS: CETAPHIL TOP SCH ×2 (08:42→21:47)
[2019-09-01] MEDS: CHOLECALCIFEROL 400 UNITS TABLET GT SCH ×2 (08:42→21:47)
[2019-09-01] MEDS: VITAMINS A AND D OINT TP SCH ×3 (08:42→21:47)
[2019-09-01] MEDS: Z GUARD REMEDY PASTE 57 GM TUBE TOP SCH ×2 (08:42→21:47)
[2019-09-01] MEDS: HYDROGEN PEROXIDE 3% 118 ML BOTTLE TOP SCH ×2 (09:05→20:59)
[2019-09-01 20:00] VITALS: BP 118/70
[2019-09-01] MEDS: MIRALAX 17 GM POWD.PACK GT SCH (21:47)
[2019-09-02] MEDS: JEVITY 1.2 1000 ML LIQUID GT PRN (02:41)
[2019-09-02] MEDS: OMEPRAZOLE 20 MG CAPSULE.DR GT SCH ×2 (05:51→21:55)
[2019-09-02] MEDS: ALBUTEROL SULFATE 2.5 MG/ 0.5 ML NEBU NEB SCH ×4 (07:35→18:58)
[2019-09-02] MEDS: IPRATROPIUM BROMIDE 0.5 MG/2.5 ML NEBU NEB SCH ×4 (07:35→18:58)
[2019-09-02 07:45] VITALS: BP 137/83
[2019-09-02] MEDS: PHENYTOIN 100 MG/4 ML UDC GT SCH ×2 (08:26→21:54)
[2019-09-02] MEDS: PHENOBARBITAL 30 MG/7.5 ML LIQUID UDC GT SCH ×2 (08:26→21:55)
[2019-09-02] MEDS: PROTEIN SUPPLEMENT (PROSTAT) 30 ML LIQUID GT SCH ×2 (08:27→21:55)
[2019-09-02] MEDS: CHOLECALCIFEROL 400 UNITS TABLET GT SCH ×2 (08:27→21:56)
[2019-09-02] MEDS: CETAPHIL TOP SCH ×2 (08:28→21:56)
[2019-09-02] MEDS: VITAMINS A AND D OINT TP SCH ×3 (08:28→21:57)
[2019-09-02] MEDS: Z GUARD REMEDY PASTE 57 GM TUBE TOP SCH ×2 (08:28→21:56)
[2019-09-02] MEDS: HYDROGEN PEROXIDE 3% 118 ML BOTTLE TOP SCH ×2 (08:44→21:07)
[2019-09-02 20:40] VITALS: BP 121/80
[2019-09-02] MEDS: MIRALAX 17 GM POWD.PACK GT SCH (21:54)
[2019-09-03] MEDS: JEVITY 1.2 1000 ML LIQUID GT PRN ×2 (03:21→21:58)
[2019-09-03] MEDS: OMEPRAZOLE 20 MG CAPSULE.DR GT SCH ×2 (06:13→21:08)
[2019-09-03] MEDS: IPRATROPIUM BROMIDE 0.5 MG/2.5 ML NEBU NEB SCH ×4 (07:13→19:10)
[2019-09-03] MEDS: ALBUTEROL SULFATE 2.5 MG/ 0.5 ML NEBU NEB SCH ×4 (07:14→19:10)
[2019-09-03 07:49] VITALS: BP 135/79
[2019-09-03] MEDS: PHENOBARBITAL 30 MG/7.5 ML LIQUID UDC GT SCH ×2 (08:49→21:08)
[2019-09-03] MEDS: PROTEIN SUPPLEMENT (PROSTAT) 30 ML LIQUID GT SCH ×2 (08:49→21:08)
[2019-09-03] MEDS: PHENYTOIN 100 MG/4 ML UDC GT SCH ×2 (08:49→21:08)
[2019-09-03] MEDS: VITAMINS A AND D OINT TP SCH ×3 (08:50→21:08)
[2019-09-03] MEDS: CETAPHIL TOP SCH ×2 (08:50→21:08)
[2019-09-03] MEDS: Z GUARD REMEDY PASTE 57 GM TUBE TOP SCH ×2 (08:50→21:08)
[2019-09-03] MEDS: CHOLECALCIFEROL 400 UNITS TABLET GT SCH ×2 (08:50→21:08)
[2019-09-03] MEDS: HYDROGEN PEROXIDE 3% 118 ML BOTTLE TOP SCH ×2 (09:00→21:28)
[2019-09-03 19:54] VITALS: BP 143/81
[2019-09-03] MEDS: MIRALAX 17 GM POWD.PACK GT SCH (21:08)
[2019-09-04] MEDS: OMEPRAZOLE 20 MG CAPSULE.DR GT SCH ×2 (05:34→21:11)
[2019-09-04] MEDS: IPRATROPIUM BROMIDE 0.5 MG/2.5 ML NEBU NEB SCH ×4 (07:16→19:02)
[2019-09-04] MEDS: ALBUTEROL SULFATE 2.5 MG/ 0.5 ML NEBU NEB SCH ×4 (07:16→19:02)
[2019-09-04 07:48] VITALS: BP 124/69
[2019-09-04] MEDS: PHENYTOIN 100 MG/4 ML UDC GT SCH ×2 (08:02→21:11)
[2019-09-04] MEDS: CHOLECALCIFEROL 400 UNITS TABLET GT SCH ×2 (08:15→21:11)
[2019-09-04] MEDS: CETAPHIL TOP SCH ×2 (08:15→21:11)
[2019-09-04] MEDS: VITAMINS A AND D OINT TP SCH ×3 (08:15→21:11)
[2019-09-04] MEDS: PROTEIN SUPPLEMENT (PROSTAT) 30 ML LIQUID GT SCH ×2 (08:15→21:11)
[2019-09-04] MEDS: PHENOBARBITAL 30 MG/7.5 ML LIQUID UDC GT SCH ×2 (08:15→21:11)
[2019-09-04] MEDS: Z GUARD REMEDY PASTE 57 GM TUBE TOP SCH ×2 (08:15→21:11)
[2019-09-04] MEDS: HYDROGEN PEROXIDE 3% 118 ML BOTTLE TOP SCH ×2 (08:40→21:10)
[2019-09-04] MEDS: JEVITY 1.2 1000 ML LIQUID GT PRN (17:27)
[2019-09-04 20:00] VITALS: BP 131/76
[2019-09-04] MEDS: MIRALAX 17 GM POWD.PACK GT SCH (21:11)
[2019-09-05] MEDS: OMEPRAZOLE 20 MG CAPSULE.DR GT SCH ×2 (05:36→21:08)
[2019-09-05 07:32] VITALS: BP 133/76
[2019-09-05] MEDS: ALBUTEROL SULFATE 2.5 MG/ 0.5 ML NEBU NEB SCH ×4 (07:50→19:08)
[2019-09-05] MEDS: IPRATROPIUM BROMIDE 0.5 MG/2.5 ML NEBU NEB SCH ×4 (07:50→19:08)
[2019-09-05] MEDS: PHENOBARBITAL 30 MG/7.5 ML LIQUID UDC GT SCH ×2 (08:38→21:08)
[2019-09-05] MEDS: PHENYTOIN 100 MG/4 ML UDC GT SCH ×2 (08:38→21:08)
[2019-09-05] MEDS: PROTEIN SUPPLEMENT (PROSTAT) 30 ML LIQUID GT SCH ×2 (08:39→21:08)
[2019-09-05] MEDS: CHOLECALCIFEROL 400 UNITS TABLET GT SCH ×2 (08:39→21:08)
[2019-09-05] MEDS: VITAMINS A AND D OINT TP SCH ×3 (08:40→21:08)
[2019-09-05] MEDS: Z GUARD REMEDY PASTE 57 GM TUBE TOP SCH ×2 (08:40→21:08)
[2019-09-05] MEDS: CETAPHIL TOP SCH ×2 (08:40→21:08)
[2019-09-05] MEDS: HYDROGEN PEROXIDE 3% 118 ML BOTTLE TOP SCH ×2 (09:27→21:14)
[2019-09-05] MEDS: JEVITY 1.2 1000 ML LIQUID GT PRN (14:54)
[2019-09-05 20:24] VITALS: BP 128/86
[2019-09-05] MEDS: MIRALAX 17 GM POWD.PACK GT SCH (21:08)
[2019-09-06] MEDS: OMEPRAZOLE 20 MG CAPSULE.DR GT SCH ×2 (05:35→20:14)
[2019-09-06 07:25] VITALS: BP 134/94
[2019-09-06] MEDS: ALBUTEROL SULFATE 2.5 MG/ 0.5 ML NEBU NEB SCH ×4 (07:50→18:48)
[2019-09-06] MEDS: IPRATROPIUM BROMIDE 0.5 MG/2.5 ML NEBU NEB SCH ×4 (07:50→18:48)
[2019-09-06] MEDS: PHENOBARBITAL 30 MG/7.5 ML LIQUID UDC GT SCH ×2 (08:07→20:21)
[2019-09-06] MEDS: PHENYTOIN 100 MG/4 ML UDC GT SCH ×2 (08:07→20:13)
[2019-09-06] MEDS: PROTEIN SUPPLEMENT (PROSTAT) 30 ML LIQUID GT SCH ×2 (08:07→20:14)
[2019-09-06] MEDS: CHOLECALCIFEROL 400 UNITS TABLET GT SCH ×2 (08:07→20:18)
[2019-09-06] MEDS: Z GUARD REMEDY PASTE 57 GM TUBE TOP SCH ×2 (08:08→20:18)
[2019-09-06] MEDS: VITAMINS A AND D OINT TP SCH ×3 (08:08→20:18)
[2019-09-06] MEDS: CETAPHIL TOP SCH ×2 (08:08→20:18)
[2019-09-06] MEDS: HYDROGEN PEROXIDE 3% 118 ML BOTTLE TOP SCH ×2 (09:29→20:18)
[2019-09-06 20:10] VITALS: BP 129/87
[2019-09-06] MEDS: MIRALAX 17 GM POWD.PACK GT SCH (20:13)
[2019-09-07] MEDS: OMEPRAZOLE 20 MG CAPSULE.DR GT SCH ×2 (04:53→21:33)
[2019-09-07] MEDS: IPRATROPIUM BROMIDE 0.5 MG/2.5 ML NEBU NEB SCH ×4 (07:15→18:58)
[2019-09-07] MEDS: ALBUTEROL SULFATE 2.5 MG/ 0.5 ML NEBU NEB SCH ×4 (07:15→18:58)
[2019-09-07 07:44] VITALS: BP 135/74
[2019-09-07] MEDS: HYDROGEN PEROXIDE 3% 118 ML BOTTLE TOP SCH ×2 (08:19→20:57)
[2019-09-07] MEDS: PROTEIN SUPPLEMENT (PROSTAT) 30 ML LIQUID GT SCH ×2 (09:17→21:33)
[2019-09-07] MEDS: Z GUARD REMEDY PASTE 57 GM TUBE TOP SCH ×2 (09:17→21:34)
[2019-09-07] MEDS: PHENYTOIN 100 MG/4 ML UDC GT SCH ×2 (09:17→21:31)
[2019-09-07] MEDS: VITAMINS A AND D OINT TP SCH ×3 (09:17→21:34)
[2019-09-07] MEDS: PHENOBARBITAL 30 MG/7.5 ML LIQUID UDC GT SCH ×2 (09:17→21:32)
[2019-09-07] MEDS: CHOLECALCIFEROL 400 UNITS TABLET GT SCH ×2 (09:17→21:33)
[2019-09-07] MEDS: CETAPHIL TOP SCH ×2 (09:17→21:34)
[2019-09-07] MEDS: JEVITY 1.2 1000 ML LIQUID GT PRN (12:15)
--- NOTE | 2019-09-07 14:38 | NUR ---
INTERDISCIPLINARY PLAN OF CARE CONFERENCE was held today. Patient's parents were not able to participate in the meeting, but nursing reported that patient's mother is in regular contact with nursing and has expressed not having any concerns. Dr. Hammond and the Interdisciplinary Team reviewed the current plan of care in detail. RN reported on patient's medical condition. No major changes in condition were reported. See RN IDT conference notes. See also all other disciplines IDT notes and physician's progress notes for additional details.
--- NOTE | 2019-09-07 16:46 | NUR ---
Pharmacy Update from Today's 09/07/19 IDT meeting VS: Temp 97.8 HR 75 BP 134/94 LABS: (from 03/18/19, no new labs) Wbc 6.4 H/H 16.4/48.2 Plt 120 Na 138 K 4.2 Cl 103 CO2 27 BUN/SCr 17/0.7 BS 85 Ca 9.0 Phos 2.8 Mg 1.8 MEDICATION USE REVIEW: > Pt is not any anti-psych medications > Pt is on Phenobarbital 60mg q12hr; last level on 03/18/19 was 22.2 (15-39) within therapeutic range. > Pt is on Phenytoin 150mg q12hrs; last level on 03/18/19 was 7.7 (10-20), no need for correction, alb wnl. MD elected to continue same dose as pt has been on current regimen for years without seizures. No seizure activity noted > PRN MED USAGE: (May) Tylenol for pain/temp used x 0 Thorazine for hiccups used x 1 Ativan used x 0 on 0 separate days for retching Compro used x 0 days (15min before getting up in chair) Compro used x 0 for N/V (may use with ativan) Bisacodyl PRN used x 0 Note: thorazine/ativan/compro not to d/c as for chronic conditions NEW ORDERS NOTED: > Covid test 08/10 negative Patient was reviewed and discussed in detail with no medication concerns per IDT staff at this time. Rx recommended for repeat phenobarbital and dilantin levels for routine monitoring, pharmacy technology instructor to f/u with primary MD for order. No other recommendations at this time, pt remains stable on current meds, will follow
[2019-09-07 19:59] VITALS: BP 127/70
[2019-09-07] MEDS: MIRALAX 17 GM POWD.PACK GT SCH (21:32)
[2019-09-08] MEDS: JEVITY 1.2 1000 ML LIQUID GT PRN (06:17)
[2019-09-08] MEDS: OMEPRAZOLE 20 MG CAPSULE.DR GT SCH ×2 (06:17→21:53)
[2019-09-08] MEDS: ALBUTEROL SULFATE 2.5 MG/ 0.5 ML NEBU NEB SCH ×4 (07:20→19:10)
[2019-09-08] MEDS: IPRATROPIUM BROMIDE 0.5 MG/2.5 ML NEBU NEB SCH ×4 (07:20→19:10)
[2019-09-08 07:47] VITALS: BP 138/82
[2019-09-08] MEDS: HYDROGEN PEROXIDE 3% 118 ML BOTTLE TOP SCH ×2 (08:40→21:00)
[2019-09-08] MEDS: BETAMET DP 0.05% AUGM CR 15 GM CREAM.GM. TP PRN (09:00)
[2019-09-08] MEDS: PHENYTOIN 100 MG/4 ML UDC GT SCH ×2 (09:00→21:53)
[2019-09-08] MEDS: PHENOBARBITAL 30 MG/7.5 ML LIQUID UDC GT SCH ×2 (09:00→21:53)
[2019-09-08] MEDS: PROTEIN SUPPLEMENT (PROSTAT) 30 ML LIQUID GT SCH ×2 (09:00→21:54)
[2019-09-08] MEDS: CLOTRIMAZOLE 1% CREAM 30 GM TUBE TP PRN (09:00)
[2019-09-08] MEDS: CHOLECALCIFEROL 400 UNITS TABLET GT SCH ×2 (09:01→21:54)
[2019-09-08] MEDS: Z GUARD REMEDY PASTE 57 GM TUBE TOP SCH ×2 (09:03→21:56)
[2019-09-08] MEDS: CETAPHIL TOP SCH ×2 (09:03→21:56)
[2019-09-08] MEDS: VITAMINS A AND D OINT TP SCH ×3 (09:03→21:56)
[2019-09-08 20:00] VITALS: BP 128/82
--- NOTE | 2019-09-08 20:00 | NUR ---
Seen and examined by Fanny with new orders noted and carried out ,pt's mother BJ aware ,she agreed but she wants only Ana M medical assistant to do it.
[2019-09-08] MEDS: MIRALAX 17 GM POWD.PACK GT SCH (21:53)
[2019-09-09] MEDS: JEVITY 1.2 1000 ML LIQUID GT PRN (06:00)
[2019-09-09] MEDS: OMEPRAZOLE 20 MG CAPSULE.DR GT SCH ×2 (06:42→21:00)
[2019-09-09] MEDS: ALBUTEROL SULFATE 2.5 MG/ 0.5 ML NEBU NEB SCH ×4 (07:05→18:58)
[2019-09-09] MEDS: IPRATROPIUM BROMIDE 0.5 MG/2.5 ML NEBU NEB SCH ×4 (07:05→18:58)
[2019-09-09 07:53] VITALS: BP 138/87
[2019-09-09] MEDS: PHENYTOIN 100 MG/4 ML UDC GT SCH ×2 (08:16→21:00)
[2019-09-09] MEDS: PHENOBARBITAL 30 MG/7.5 ML LIQUID UDC GT SCH ×2 (08:16→21:00)
[2019-09-09] MEDS: PROTEIN SUPPLEMENT (PROSTAT) 30 ML LIQUID GT SCH ×2 (08:17→21:00)
[2019-09-09] MEDS: VITAMINS A AND D OINT TP SCH ×3 (08:18→21:00)
[2019-09-09] MEDS: CETAPHIL TOP SCH ×2 (08:18→21:00)
[2019-09-09] MEDS: Z GUARD REMEDY PASTE 57 GM TUBE TOP SCH ×2 (08:18→21:00)
[2019-09-09] MEDS: CHOLECALCIFEROL 400 UNITS TABLET GT SCH ×2 (08:18→21:00)
[2019-09-09] MEDS: HYDROGEN PEROXIDE 3% 118 ML BOTTLE TOP SCH ×2 (09:00→20:57)
--- NOTE | 2019-09-09 14:24 | NUR ---
MCKENNA received a voicemail message from [facility] at Dr. Teague's office [phone] Teague will be at this facility on 09/17/2019 in order to see the patient for his annual eye exam.
--- NOTE | 2019-09-09 17:31 | NUR ---
PT'S MOTHER WAS CONTACTED AND AWARE OF LAB ORDERS AND STATED THAT SHE ONLY WANTS ZAKIA (INFORMATION TECHNOLOGY CONSULTANT)TO DRAW BLOOD AND NOBODY ELSE AND SHE IS AWARE THAT ZAKIA WONT BE AVAILABLE FOR A LONG TIME AND SHE STILL DOES NOT CARE SHE REFUSED BLOOD WORK.
[2019-09-09 20:00] VITALS: BP 143/78
[2019-09-09] MEDS: MIRALAX 17 GM POWD.PACK GT SCH (21:00)
[2019-09-10] MEDS: JEVITY 1.2 1000 ML LIQUID GT PRN (03:00)
[2019-09-10] MEDS: OMEPRAZOLE 20 MG CAPSULE.DR GT SCH ×2 (05:45→21:27)
[2019-09-10] MEDS: IPRATROPIUM BROMIDE 0.5 MG/2.5 ML NEBU NEB SCH ×4 (07:06→18:54)
[2019-09-10] MEDS: ALBUTEROL SULFATE 2.5 MG/ 0.5 ML NEBU NEB SCH ×4 (07:07→18:54)
[2019-09-10 08:02] VITALS: BP 150/82
[2019-09-10] MEDS: HYDROGEN PEROXIDE 3% 118 ML BOTTLE TOP SCH ×2 (08:10→21:01)
[2019-09-10] MEDS: PHENYTOIN 100 MG/4 ML UDC GT SCH ×2 (08:43→21:27)
[2019-09-10] MEDS: PHENOBARBITAL 30 MG/7.5 ML LIQUID UDC GT SCH ×2 (08:43→21:27)
[2019-09-10] MEDS: PROTEIN SUPPLEMENT (PROSTAT) 30 ML LIQUID GT SCH ×2 (08:44→21:27)
[2019-09-10] MEDS: CHOLECALCIFEROL 400 UNITS TABLET GT SCH ×2 (08:44→21:27)
[2019-09-10] MEDS: VITAMINS A AND D OINT TP SCH ×3 (08:45→21:28)
[2019-09-10] MEDS: Z GUARD REMEDY PASTE 57 GM TUBE TOP SCH ×2 (08:45→21:27)
[2019-09-10] MEDS: CETAPHIL TOP SCH ×2 (08:45→21:27)
--- NOTE | 2019-09-10 18:00 | NUR ---
SEEN AND EXAMINED BY DR. MORE AND WITH NNO AND AWARE THAT PT'S MOTHER REFUSED LAB WORK UNLESS THAT MAKING MACHINE CATCHER ZAKIA DRAW THE BLOOD AND SHE WON'T BE AVAILABLE FOR A LONG TIME,DR. MORE HAD NNO.
[2019-09-10 20:00] VITALS: BP 136/79
[2019-09-10] MEDS: MIRALAX 17 GM POWD.PACK GT SCH (21:27)
[2019-09-11] MEDS: JEVITY 1.2 1000 ML LIQUID GT PRN (04:25)
[2019-09-11] MEDS: OMEPRAZOLE 20 MG CAPSULE.DR GT SCH ×2 (05:51→20:02)
[2019-09-11 07:42] VITALS: BP 122/77
[2019-09-11] MEDS: IPRATROPIUM BROMIDE 0.5 MG/2.5 ML NEBU NEB SCH ×4 (08:09→19:01)
[2019-09-11] MEDS: ALBUTEROL SULFATE 2.5 MG/ 0.5 ML NEBU NEB SCH ×4 (08:09→19:01)
[2019-09-11] MEDS: HYDROGEN PEROXIDE 3% 118 ML BOTTLE TOP SCH ×2 (09:00→21:39)
[2019-09-11] MEDS: PHENYTOIN 100 MG/4 ML UDC GT SCH ×2 (09:13→20:00)
[2019-09-11] MEDS: PHENOBARBITAL 30 MG/7.5 ML LIQUID UDC GT SCH ×2 (09:13→20:00)
[2019-09-11] MEDS: PROTEIN SUPPLEMENT (PROSTAT) 30 ML LIQUID GT SCH ×2 (09:13→20:02)
[2019-09-11] MEDS: CETAPHIL TOP SCH ×2 (09:14→20:03)
[2019-09-11] MEDS: CHOLECALCIFEROL 400 UNITS TABLET GT SCH ×2 (09:14→20:02)
[2019-09-11] MEDS: VITAMINS A AND D OINT TP SCH ×3 (09:14→20:03)
[2019-09-11] MEDS: Z GUARD REMEDY PASTE 57 GM TUBE TOP SCH ×2 (09:14→20:03)
[2019-09-11 20:00] VITALS: BP 120/86
[2019-09-11] MEDS: MIRALAX 17 GM POWD.PACK GT SCH (20:00)
--- NOTE | 2019-09-11 23:30 | NUR ---
Received a call from the lab reporting about patient's COVID test result that is negative.
[2019-09-12] MEDS: JEVITY 1.2 1000 ML LIQUID GT PRN (05:35)
[2019-09-12] MEDS: OMEPRAZOLE 20 MG CAPSULE.DR GT SCH ×2 (05:35→21:21)
[2019-09-12 07:54] VITALS: BP 137/88
[2019-09-12] MEDS: ALBUTEROL SULFATE 2.5 MG/ 0.5 ML NEBU NEB SCH ×4 (08:13→19:06)
[2019-09-12] MEDS: IPRATROPIUM BROMIDE 0.5 MG/2.5 ML NEBU NEB SCH ×4 (08:13→19:06)
[2019-09-12] MEDS: HYDROGEN PEROXIDE 3% 118 ML BOTTLE TOP SCH ×2 (09:00→21:23)
[2019-09-12] MEDS: PROTEIN SUPPLEMENT (PROSTAT) 30 ML LIQUID GT SCH ×2 (09:11→21:21)
[2019-09-12] MEDS: PHENYTOIN 100 MG/4 ML UDC GT SCH ×2 (09:11→21:21)
[2019-09-12] MEDS: CHOLECALCIFEROL 400 UNITS TABLET GT SCH ×2 (09:11→21:21)
[2019-09-12] MEDS: PHENOBARBITAL 30 MG/7.5 ML LIQUID UDC GT SCH ×2 (09:11→21:21)
[2019-09-12] MEDS: Z GUARD REMEDY PASTE 57 GM TUBE TOP SCH ×2 (09:12→21:22)
[2019-09-12] MEDS: CETAPHIL TOP SCH ×2 (09:12→21:22)
[2019-09-12] MEDS: VITAMINS A AND D OINT TP SCH ×3 (09:12→21:22)
[2019-09-12 20:00] VITALS: BP 138/84
[2019-09-12] MEDS: MIRALAX 17 GM POWD.PACK GT SCH (21:21)
[2019-09-13] MEDS: OMEPRAZOLE 20 MG CAPSULE.DR GT SCH ×2 (06:25→21:06)
[2019-09-13] MEDS: IPRATROPIUM BROMIDE 0.5 MG/2.5 ML NEBU NEB SCH ×4 (07:31→19:05)
[2019-09-13] MEDS: ALBUTEROL SULFATE 2.5 MG/ 0.5 ML NEBU NEB SCH ×4 (07:31→19:06)
[2019-09-13] MEDS: HYDROGEN PEROXIDE 3% 118 ML BOTTLE TOP SCH ×2 (07:31→21:34)
[2019-09-13 07:52] VITALS: BP 114/65
[2019-09-13] MEDS: PHENYTOIN 100 MG/4 ML UDC GT SCH ×2 (09:25→21:05)
[2019-09-13] MEDS: PHENOBARBITAL 30 MG/7.5 ML LIQUID UDC GT SCH ×2 (09:26→21:06)
[2019-09-13] MEDS: CETAPHIL TOP SCH ×2 (09:26→21:07)
[2019-09-13] MEDS: CHOLECALCIFEROL 400 UNITS TABLET GT SCH ×2 (09:26→21:06)
[2019-09-13] MEDS: PROTEIN SUPPLEMENT (PROSTAT) 30 ML LIQUID GT SCH ×2 (09:26→21:06)
[2019-09-13] MEDS: VITAMINS A AND D OINT TP SCH ×3 (09:26→21:07)
[2019-09-13] MEDS: Z GUARD REMEDY PASTE 57 GM TUBE TOP SCH ×2 (09:26→21:07)
--- NOTE | 2019-09-13 10:00 | NUR ---
SEEN BY LEOBARDO FENTON N.P. AND WITH NNO.
[2019-09-13] MEDS: MIRALAX 17 GM POWD.PACK GT SCH (21:05)
[2019-09-13 21:23] VITALS: BP 130/79
[2019-09-14] MEDS: OMEPRAZOLE 20 MG CAPSULE.DR GT SCH ×2 (05:44→21:02)
[2019-09-14] MEDS: IPRATROPIUM BROMIDE 0.5 MG/2.5 ML NEBU NEB SCH ×4 (07:37→19:05)
[2019-09-14] MEDS: ALBUTEROL SULFATE 2.5 MG/ 0.5 ML NEBU NEB SCH ×4 (07:37→19:05)
[2019-09-14 07:49] VITALS: BP 124/79
[2019-09-14] MEDS: HYDROGEN PEROXIDE 3% 118 ML BOTTLE TOP SCH ×2 (09:34→21:16)
[2019-09-14] MEDS: PHENYTOIN 100 MG/4 ML UDC GT SCH ×2 (09:38→21:02)
[2019-09-14] MEDS: PHENOBARBITAL 30 MG/7.5 ML LIQUID UDC GT SCH ×2 (09:40→21:02)
[2019-09-14] MEDS: CHOLECALCIFEROL 400 UNITS TABLET GT SCH ×2 (09:42→21:03)
[2019-09-14] MEDS: PROTEIN SUPPLEMENT (PROSTAT) 30 ML LIQUID GT SCH ×2 (09:42→21:03)
[2019-09-14] MEDS: Z GUARD REMEDY PASTE 57 GM TUBE TOP SCH ×2 (09:43→21:03)
[2019-09-14] MEDS: VITAMINS A AND D OINT TP SCH ×3 (09:43→21:03)
[2019-09-14] MEDS: CETAPHIL TOP SCH ×2 (09:43→21:03)
[2019-09-14] MEDS: JEVITY 1.2 1000 ML LIQUID GT PRN (17:48)
--- NOTE | 2019-09-14 19:15 | NUR ---
PT RECEIVED ON CONTINUOUS VENT, TRACH CARE DONE. TRACH IN PLACED AND SECURED WITH TRACH TIE. BACK UP TRACH AND AMBU BAG AT BEDSIDE. IN LINE TX GIVEN WITH UD ALBUTEROL + UD ATROVENT ORDERED. SUCTION PRN. VENT CIRCUIT CHANGED. VENT CHECKED, ALARMS WORKING WELL AND AUDIBLE. NO DISTRESS NOTED AT THIS TIME. WILL CONTINUE TO MONITOR.
[2019-09-14 20:18] VITALS: BP 132/77
--- NOTE | 2019-09-14 20:24 | NUR ---
SEEN BY LEOBARDO FENTON N.P. AND WITH NNO.
[2019-09-14] MEDS: MIRALAX 17 GM POWD.PACK GT SCH (21:02)
[2019-09-15] MEDS: OMEPRAZOLE 20 MG CAPSULE.DR GT SCH ×2 (05:51→21:52)
[2019-09-15 07:41] VITALS: BP 110/63
[2019-09-15] MEDS: ALBUTEROL SULFATE 2.5 MG/ 0.5 ML NEBU NEB SCH ×4 (08:03→19:16)
[2019-09-15] MEDS: IPRATROPIUM BROMIDE 0.5 MG/2.5 ML NEBU NEB SCH ×4 (08:03→19:16)
[2019-09-15] MEDS: CETAPHIL TOP SCH ×2 (08:54→21:52)
[2019-09-15] MEDS: PHENOBARBITAL 30 MG/7.5 ML LIQUID UDC GT SCH ×2 (08:54→21:52)
[2019-09-15] MEDS: PROTEIN SUPPLEMENT (PROSTAT) 30 ML LIQUID GT SCH ×2 (08:54→21:52)
[2019-09-15] MEDS: VITAMINS A AND D OINT TP SCH ×3 (08:54→21:52)
[2019-09-15] MEDS: Z GUARD REMEDY PASTE 57 GM TUBE TOP SCH ×2 (08:54→21:52)
[2019-09-15] MEDS: CHOLECALCIFEROL 400 UNITS TABLET GT SCH ×2 (08:54→21:52)
[2019-09-15] MEDS: PHENYTOIN 100 MG/4 ML UDC GT SCH ×2 (08:54→21:56)
[2019-09-15] MEDS: HYDROGEN PEROXIDE 3% 118 ML BOTTLE TOP SCH ×2 (09:00→21:18)
[2019-09-15 20:03] VITALS: BP 118/82
[2019-09-15] MEDS: MIRALAX 17 GM POWD.PACK GT SCH (21:52)
[2019-09-16] MEDS: OMEPRAZOLE 20 MG CAPSULE.DR GT SCH ×2 (06:15→21:09)
[2019-09-16] MEDS: IPRATROPIUM BROMIDE 0.5 MG/2.5 ML NEBU NEB SCH ×4 (07:17→19:16)
[2019-09-16] MEDS: ALBUTEROL SULFATE 2.5 MG/ 0.5 ML NEBU NEB SCH ×4 (07:17→19:16)
[2019-09-16 07:36] VITALS: BP 120/70
[2019-09-16] MEDS: CHOLECALCIFEROL 400 UNITS TABLET GT SCH ×2 (08:35→21:10)
[2019-09-16] MEDS: Z GUARD REMEDY PASTE 57 GM TUBE TOP SCH ×2 (08:35→21:10)
[2019-09-16] MEDS: CETAPHIL TOP SCH ×2 (08:35→21:10)
[2019-09-16] MEDS: VITAMINS A AND D OINT TP SCH ×3 (08:35→21:11)
[2019-09-16] MEDS: PHENOBARBITAL 30 MG/7.5 ML LIQUID UDC GT SCH ×2 (08:35→21:09)
[2019-09-16] MEDS: PHENYTOIN 100 MG/4 ML UDC GT SCH ×2 (08:35→21:09)
[2019-09-16] MEDS: PROTEIN SUPPLEMENT (PROSTAT) 30 ML LIQUID GT SCH ×2 (08:35→21:10)
[2019-09-16] MEDS: HYDROGEN PEROXIDE 3% 118 ML BOTTLE TOP SCH ×2 (08:45→21:54)
[2019-09-16 20:12] VITALS: BP 134/82
[2019-09-16] MEDS: MIRALAX 17 GM POWD.PACK GT SCH (21:09)
[2019-09-17] MEDS: OMEPRAZOLE 20 MG CAPSULE.DR GT SCH ×2 (05:30→21:25)
[2019-09-17] MEDS: ALBUTEROL SULFATE 2.5 MG/ 0.5 ML NEBU NEB SCH ×4 (07:12→19:05)
[2019-09-17] MEDS: IPRATROPIUM BROMIDE 0.5 MG/2.5 ML NEBU NEB SCH ×4 (07:12→19:05)
[2019-09-17 07:41] VITALS: BP 131/78
[2019-09-17] MEDS: HYDROGEN PEROXIDE 3% 118 ML BOTTLE TOP SCH ×2 (08:19→21:17)
[2019-09-17] MEDS: PHENOBARBITAL 30 MG/7.5 ML LIQUID UDC GT SCH ×2 (09:03→21:25)
[2019-09-17] MEDS: PROTEIN SUPPLEMENT (PROSTAT) 30 ML LIQUID GT SCH ×2 (09:03→21:26)
[2019-09-17] MEDS: PHENYTOIN 100 MG/4 ML UDC GT SCH ×2 (09:03→21:25)
[2019-09-17] MEDS: CHOLECALCIFEROL 400 UNITS TABLET GT SCH ×2 (09:05→21:26)
[2019-09-17] MEDS: VITAMINS A AND D OINT TP SCH ×3 (09:06→21:27)
[2019-09-17] MEDS: CETAPHIL TOP SCH ×2 (09:06→21:26)
[2019-09-17] MEDS: Z GUARD REMEDY PASTE 57 GM TUBE TOP SCH ×2 (09:06→21:27)
--- NOTE | 2019-09-17 11:00 | NUR ---
Seen by Dr. Teague with no new order.
[2019-09-17] MEDS: JEVITY 1.2 1000 ML LIQUID GT PRN (13:02)
[2019-09-17 20:47] VITALS: BP 138/77
[2019-09-17] MEDS: MIRALAX 17 GM POWD.PACK GT SCH (21:25)
[2019-09-18] MEDS: OMEPRAZOLE 20 MG CAPSULE.DR GT SCH ×2 (05:30→21:20)
[2019-09-18 07:43] VITALS: BP 137/77
[2019-09-18] MEDS: ALBUTEROL SULFATE 2.5 MG/ 0.5 ML NEBU NEB SCH ×4 (08:20→18:57)
[2019-09-18] MEDS: IPRATROPIUM BROMIDE 0.5 MG/2.5 ML NEBU NEB SCH ×4 (08:20→18:57)
[2019-09-18] MEDS: HYDROGEN PEROXIDE 3% 118 ML BOTTLE TOP SCH ×2 (09:00→21:25)
[2019-09-18] MEDS: PHENYTOIN 100 MG/4 ML UDC GT SCH ×2 (09:34→21:20)
[2019-09-18] MEDS: PHENOBARBITAL 30 MG/7.5 ML LIQUID UDC GT SCH ×2 (09:34→21:20)
[2019-09-18] MEDS: CHOLECALCIFEROL 400 UNITS TABLET GT SCH ×2 (09:38→21:20)
[2019-09-18] MEDS: PROTEIN SUPPLEMENT (PROSTAT) 30 ML LIQUID GT SCH ×2 (09:38→21:20)
[2019-09-18] MEDS: VITAMINS A AND D OINT TP SCH ×3 (09:39→21:20)
[2019-09-18] MEDS: CETAPHIL TOP SCH ×2 (09:39→21:20)
[2019-09-18] MEDS: Z GUARD REMEDY PASTE 57 GM TUBE TOP SCH ×2 (09:39→21:20)
[2019-09-18] MEDS: JEVITY 1.2 1000 ML LIQUID GT PRN (18:06)
--- NOTE | 2019-09-18 18:57 | NUR ---
Received pt on HT-50 ventilator with the following settings of AC-14, Vt-700, FIO2-35%, trached with Shiley#8 XLT Distal trach, which is in the place and secure. No respiratory distress noted. Airway care done, pt responded to physical stimuli. In-line HHN tx with 2.5mg Albuterol+0.5mg Atrovent given, no adverse reaction noted. HME, Sx Rivera and HHN adaptor changed. Resus. bag and back up trach at bedside. Vent and alarms checked and reset.
[2019-09-18 20:12] VITALS: BP 131/83
[2019-09-18] MEDS: MIRALAX 17 GM POWD.PACK GT SCH (21:20)
[2019-09-19] MEDS: OMEPRAZOLE 20 MG CAPSULE.DR GT SCH ×2 (05:35→21:33)
[2019-09-19 07:41] VITALS: BP 117/81
[2019-09-19] MEDS: ALBUTEROL SULFATE 2.5 MG/ 0.5 ML NEBU NEB SCH ×4 (08:20→18:48)
[2019-09-19] MEDS: IPRATROPIUM BROMIDE 0.5 MG/2.5 ML NEBU NEB SCH ×4 (08:20→18:48)
[2019-09-19] MEDS: PHENOBARBITAL 30 MG/7.5 ML LIQUID UDC GT SCH ×2 (08:23→21:33)
[2019-09-19] MEDS: VITAMINS A AND D OINT TP SCH ×3 (08:23→21:34)
[2019-09-19] MEDS: CHOLECALCIFEROL 400 UNITS TABLET GT SCH ×2 (08:23→21:33)
[2019-09-19] MEDS: Z GUARD REMEDY PASTE 57 GM TUBE TOP SCH ×2 (08:23→21:34)
[2019-09-19] MEDS: PHENYTOIN 100 MG/4 ML UDC GT SCH ×2 (08:23→21:33)
[2019-09-19] MEDS: PROTEIN SUPPLEMENT (PROSTAT) 30 ML LIQUID GT SCH ×2 (08:23→21:33)
[2019-09-19] MEDS: CETAPHIL TOP SCH ×2 (08:23→21:34)
[2019-09-19] MEDS: HYDROGEN PEROXIDE 3% 118 ML BOTTLE TOP SCH ×2 (08:55→18:48)
--- NOTE | 2019-09-19 10:48 | NUR ---
Seen by Fanny BELL no new orders noted.
[2019-09-19 20:17] VITALS: BP 125/76
[2019-09-19] MEDS: MIRALAX 17 GM POWD.PACK GT SCH (21:33)
[2019-09-20] MEDS: JEVITY 1.2 1000 ML LIQUID GT PRN (03:06)
[2019-09-20] MEDS: OMEPRAZOLE 20 MG CAPSULE.DR GT SCH ×2 (05:44→21:55)
[2019-09-20 07:27] VITALS: BP 117/72
[2019-09-20] MEDS: IPRATROPIUM BROMIDE 0.5 MG/2.5 ML NEBU NEB SCH ×4 (07:30→18:54)
[2019-09-20] MEDS: ALBUTEROL SULFATE 2.5 MG/ 0.5 ML NEBU NEB SCH ×4 (07:30→18:54)
[2019-09-20] MEDS: HYDROGEN PEROXIDE 3% 118 ML BOTTLE TOP SCH ×2 (07:30→21:22)
[2019-09-20] MEDS: CETAPHIL TOP SCH ×2 (08:13→21:55)
[2019-09-20] MEDS: CHOLECALCIFEROL 400 UNITS TABLET GT SCH ×2 (08:13→21:55)
[2019-09-20] MEDS: PHENOBARBITAL 30 MG/7.5 ML LIQUID UDC GT SCH ×2 (08:13→21:55)
[2019-09-20] MEDS: VITAMINS A AND D OINT TP SCH ×3 (08:13→21:55)
[2019-09-20] MEDS: Z GUARD REMEDY PASTE 57 GM TUBE TOP SCH ×2 (08:13→21:55)
[2019-09-20] MEDS: PROTEIN SUPPLEMENT (PROSTAT) 30 ML LIQUID GT SCH ×2 (08:13→21:55)
[2019-09-20] MEDS: PHENYTOIN 100 MG/4 ML UDC GT SCH ×2 (08:13→21:55)
[2019-09-20 20:15] VITALS: BP 131/87
[2019-09-20] MEDS: MIRALAX 17 GM POWD.PACK GT SCH (21:55)
[2019-09-21] MEDS: JEVITY 1.2 1000 ML LIQUID GT PRN (03:09)
[2019-09-21] MEDS: OMEPRAZOLE 20 MG CAPSULE.DR GT SCH ×2 (06:32→21:00)
[2019-09-21] MEDS: ALBUTEROL SULFATE 2.5 MG/ 0.5 ML NEBU NEB SCH ×4 (07:18→18:40)
[2019-09-21] MEDS: IPRATROPIUM BROMIDE 0.5 MG/2.5 ML NEBU NEB SCH ×4 (07:18→18:40)
[2019-09-21] MEDS: PROTEIN SUPPLEMENT (PROSTAT) 30 ML LIQUID GT SCH ×2 (08:45→21:00)
[2019-09-21] MEDS: PHENYTOIN 100 MG/4 ML UDC GT SCH ×2 (08:45→21:57)
[2019-09-21] MEDS: PHENOBARBITAL 30 MG/7.5 ML LIQUID UDC GT SCH ×2 (08:45→21:00)
[2019-09-21] MEDS: CHOLECALCIFEROL 400 UNITS TABLET GT SCH ×2 (08:45→21:00)
[2019-09-21] MEDS: CETAPHIL TOP SCH ×2 (08:46→21:00)
[2019-09-21] MEDS: Z GUARD REMEDY PASTE 57 GM TUBE TOP SCH ×2 (08:46→21:00)
[2019-09-21] MEDS: VITAMINS A AND D OINT TP SCH ×3 (08:46→21:00)
[2019-09-21] MEDS: HYDROGEN PEROXIDE 3% 118 ML BOTTLE TOP SCH ×2 (09:32→21:21)
[2019-09-21 20:23] VITALS: BP 118/75
[2019-09-21] MEDS: MIRALAX 17 GM POWD.PACK GT SCH (21:00)
[2019-09-22] MEDS: JEVITY 1.2 1000 ML LIQUID GT PRN (01:07)
[2019-09-22] MEDS: OMEPRAZOLE 20 MG CAPSULE.DR GT SCH ×2 (05:32→21:56)
[2019-09-22] MEDS: IPRATROPIUM BROMIDE 0.5 MG/2.5 ML NEBU NEB SCH ×4 (07:09→19:25)
[2019-09-22] MEDS: HYDROGEN PEROXIDE 3% 118 ML BOTTLE TOP SCH ×2 (07:09→20:51)
[2019-09-22] MEDS: ALBUTEROL SULFATE 2.5 MG/ 0.5 ML NEBU NEB SCH ×4 (07:09→19:25)
[2019-09-22 07:39] VITALS: BP 102/73
[2019-09-22] MEDS: PHENYTOIN 100 MG/4 ML UDC GT SCH ×2 (09:00→21:56)
[2019-09-22] MEDS: PROTEIN SUPPLEMENT (PROSTAT) 30 ML LIQUID GT SCH ×2 (09:10→21:56)
[2019-09-22] MEDS: CETAPHIL TOP SCH ×2 (09:10→21:56)
[2019-09-22] MEDS: CHOLECALCIFEROL 400 UNITS TABLET GT SCH ×2 (09:10→21:56)
[2019-09-22] MEDS: Z GUARD REMEDY PASTE 57 GM TUBE TOP SCH ×2 (09:10→21:56)
[2019-09-22] MEDS: PHENOBARBITAL 30 MG/7.5 ML LIQUID UDC GT SCH ×2 (09:10→21:56)
[2019-09-22] MEDS: VITAMINS A AND D OINT TP SCH ×3 (09:11→21:57)
[2019-09-22 19:54] VITALS: BP 137/81
[2019-09-22] MEDS: MIRALAX 17 GM POWD.PACK GT SCH (21:56)
[2019-09-23] MEDS: OMEPRAZOLE 20 MG CAPSULE.DR GT SCH ×2 (05:38→21:58)
[2019-09-23] MEDS: IPRATROPIUM BROMIDE 0.5 MG/2.5 ML NEBU NEB SCH ×4 (07:19→18:41)
[2019-09-23] MEDS: HYDROGEN PEROXIDE 3% 118 ML BOTTLE TOP SCH ×2 (07:19→18:41)
[2019-09-23] MEDS: ALBUTEROL SULFATE 2.5 MG/ 0.5 ML NEBU NEB SCH ×4 (07:19→18:41)
[2019-09-23 08:11] VITALS: BP 136/73
[2019-09-23] MEDS: PHENYTOIN 100 MG/4 ML UDC GT SCH ×2 (08:44→21:58)
[2019-09-23] MEDS: CETAPHIL TOP SCH ×2 (08:53→21:58)
[2019-09-23] MEDS: PROTEIN SUPPLEMENT (PROSTAT) 30 ML LIQUID GT SCH ×2 (08:53→21:58)
[2019-09-23] MEDS: Z GUARD REMEDY PASTE 57 GM TUBE TOP SCH ×2 (08:53→21:58)
[2019-09-23] MEDS: VITAMINS A AND D OINT TP SCH ×3 (08:53→21:58)
[2019-09-23] MEDS: CHOLECALCIFEROL 400 UNITS TABLET GT SCH ×2 (08:54→21:58)
[2019-09-23] MEDS: PHENOBARBITAL 30 MG/7.5 ML LIQUID UDC GT SCH ×2 (08:57→21:58)
--- NOTE | 2019-09-23 18:24 | NUR ---
No significant acute changes during this shift. All due medications given as ordered and tolerated well. No s/sx of respiratory distress. Skin care rendered. No new skin condition noted. Tolerating GT feeding well. Safety measures in place. Will endorse to oncoming shift accordingly.
[2019-09-23 20:00] VITALS: BP 121/73
[2019-09-23] MEDS: MIRALAX 17 GM POWD.PACK GT SCH (21:58)
[2019-09-24] MEDS: OMEPRAZOLE 20 MG CAPSULE.DR GT SCH ×2 (06:12→21:02)
[2019-09-24] MEDS: IPRATROPIUM BROMIDE 0.5 MG/2.5 ML NEBU NEB SCH ×4 (07:28→19:05)
[2019-09-24] MEDS: ALBUTEROL SULFATE 2.5 MG/ 0.5 ML NEBU NEB SCH ×4 (07:28→19:05)
[2019-09-24 08:08] VITALS: BP 128/84
[2019-09-24] MEDS: HYDROGEN PEROXIDE 3% 118 ML BOTTLE TOP SCH ×2 (08:08→21:15)
[2019-09-24] MEDS: PHENYTOIN 100 MG/4 ML UDC GT SCH ×2 (08:08→21:02)
[2019-09-24] MEDS: PHENOBARBITAL 30 MG/7.5 ML LIQUID UDC GT SCH ×2 (08:10→21:02)
[2019-09-24] MEDS: PROTEIN SUPPLEMENT (PROSTAT) 30 ML LIQUID GT SCH ×2 (08:10→21:02)
[2019-09-24] MEDS: CHOLECALCIFEROL 400 UNITS TABLET GT SCH ×2 (08:10→21:02)
[2019-09-24] MEDS: Z GUARD REMEDY PASTE 57 GM TUBE TOP SCH ×2 (08:11→21:02)
[2019-09-24] MEDS: VITAMINS A AND D OINT TP SCH ×3 (08:11→21:02)
[2019-09-24] MEDS: CETAPHIL TOP SCH ×2 (08:11→21:02)
--- NOTE | 2019-09-24 09:00 | NUR ---
SEEN BY LEOBARDO FENTON N.P. AND WITH NNO.
[2019-09-24 20:15] VITALS: BP 140/82
[2019-09-24] MEDS: MIRALAX 17 GM POWD.PACK GT SCH (21:02)
[2019-09-25] MEDS: OMEPRAZOLE 20 MG CAPSULE.DR GT SCH ×2 (05:34→21:09)
[2019-09-25] MEDS: ALBUTEROL SULFATE 2.5 MG/ 0.5 ML NEBU NEB SCH ×4 (07:35→18:52)
[2019-09-25] MEDS: IPRATROPIUM BROMIDE 0.5 MG/2.5 ML NEBU NEB SCH ×4 (07:35→18:52)
[2019-09-25 07:52] VITALS: BP 106/73
[2019-09-25] MEDS: HYDROGEN PEROXIDE 3% 118 ML BOTTLE TOP SCH ×2 (08:09→21:12)
[2019-09-25] MEDS: PROTEIN SUPPLEMENT (PROSTAT) 30 ML LIQUID GT SCH ×2 (08:32→21:09)
[2019-09-25] MEDS: CETAPHIL TOP SCH ×2 (08:32→21:09)
[2019-09-25] MEDS: Z GUARD REMEDY PASTE 57 GM TUBE TOP SCH ×2 (08:32→21:09)
[2019-09-25] MEDS: PHENOBARBITAL 30 MG/7.5 ML LIQUID UDC GT SCH ×2 (08:32→21:09)
[2019-09-25] MEDS: PHENYTOIN 100 MG/4 ML UDC GT SCH ×2 (08:32→21:09)
[2019-09-25] MEDS: CHOLECALCIFEROL 400 UNITS TABLET GT SCH ×2 (08:32→21:09)
[2019-09-25] MEDS: VITAMINS A AND D OINT TP SCH ×3 (08:33→21:09)
--- NOTE | 2019-09-25 18:52 | NUR ---
Pt received on HT-50 ventilator with the following settings of AC-14, Vt-700, FIO2-35%, trached with Shiley#8 XLT Distal trach, which is in the place and secure. No s/s of respiratory distress noted. Airway care done, pt responded to physical stimuli. In-line HHN tx with 2.5mg Albuterol+0.5mg Atrovent given, no adverse reaction noted. HME, Sx Rivera and HHN adaptor changed. Resus. bag and back up trach at bedside. Vent and alarms checked and reset.
[2019-09-25 20:05] VITALS: BP 139/76
[2019-09-25] MEDS: MIRALAX 17 GM POWD.PACK GT SCH (21:09)
[2019-09-26] MEDS: OMEPRAZOLE 20 MG CAPSULE.DR GT SCH ×2 (05:33→21:00)
[2019-09-26] MEDS: ALBUTEROL SULFATE 2.5 MG/ 0.5 ML NEBU NEB SCH ×4 (07:06→19:04)
[2019-09-26] MEDS: HYDROGEN PEROXIDE 3% 118 ML BOTTLE TOP SCH ×2 (07:06→21:31)
[2019-09-26] MEDS: IPRATROPIUM BROMIDE 0.5 MG/2.5 ML NEBU NEB SCH ×4 (07:06→19:04)
[2019-09-26 07:52] VITALS: BP 124/72
[2019-09-26] MEDS: PHENOBARBITAL 30 MG/7.5 ML LIQUID UDC GT SCH ×2 (08:10→21:00)
[2019-09-26] MEDS: PHENYTOIN 100 MG/4 ML UDC GT SCH ×2 (08:10→20:59)
[2019-09-26] MEDS: Z GUARD REMEDY PASTE 57 GM TUBE TOP SCH ×2 (08:10→21:00)
[2019-09-26] MEDS: PROTEIN SUPPLEMENT (PROSTAT) 30 ML LIQUID GT SCH ×2 (08:10→21:00)
[2019-09-26] MEDS: VITAMINS A AND D OINT TP SCH ×3 (08:10→21:00)
[2019-09-26] MEDS: CHOLECALCIFEROL 400 UNITS TABLET GT SCH ×2 (08:10→21:00)
[2019-09-26] MEDS: CETAPHIL TOP SCH ×2 (08:10→21:00)
[2019-09-26 20:28] VITALS: BP 116/77
[2019-09-26] MEDS: MIRALAX 17 GM POWD.PACK GT SCH (21:00)
[2019-09-27] MEDS: OMEPRAZOLE 20 MG CAPSULE.DR GT SCH ×2 (05:30→21:37)
[2019-09-27] MEDS: ALBUTEROL SULFATE 2.5 MG/ 0.5 ML NEBU NEB SCH ×4 (07:18→19:06)
[2019-09-27] MEDS: IPRATROPIUM BROMIDE 0.5 MG/2.5 ML NEBU NEB SCH ×4 (07:18→19:06)
[2019-09-27 07:24] VITALS: BP 14/73
[2019-09-27] MEDS: CHOLECALCIFEROL 400 UNITS TABLET GT SCH ×2 (08:16→21:37)
[2019-09-27] MEDS: PHENOBARBITAL 30 MG/7.5 ML LIQUID UDC GT SCH ×2 (08:16→21:41)
[2019-09-27] MEDS: PHENYTOIN 100 MG/4 ML UDC GT SCH ×2 (08:16→21:36)
[2019-09-27] MEDS: PROTEIN SUPPLEMENT (PROSTAT) 30 ML LIQUID GT SCH ×2 (08:16→21:37)
[2019-09-27] MEDS: VITAMINS A AND D OINT TP SCH ×3 (08:17→21:38)
[2019-09-27] MEDS: CETAPHIL TOP SCH ×2 (08:17→21:38)
[2019-09-27] MEDS: Z GUARD REMEDY PASTE 57 GM TUBE TOP SCH ×2 (08:17→21:38)
[2019-09-27] MEDS: HYDROGEN PEROXIDE 3% 118 ML BOTTLE TOP SCH ×2 (09:03→21:33)
[2019-09-27 20:15] VITALS: BP 136/74
[2019-09-27] MEDS: MIRALAX 17 GM POWD.PACK GT SCH (21:36)
[2019-09-28] MEDS: OMEPRAZOLE 20 MG CAPSULE.DR GT SCH ×2 (06:04→21:53)
[2019-09-28 07:46] VITALS: BP 116/79
[2019-09-28] MEDS: PHENYTOIN 100 MG/4 ML UDC GT SCH ×2 (08:07→21:51)
[2019-09-28] MEDS: PHENOBARBITAL 30 MG/7.5 ML LIQUID UDC GT SCH ×2 (08:08→21:52)
[2019-09-28] MEDS: CETAPHIL TOP SCH ×2 (08:09→21:55)
[2019-09-28] MEDS: CHOLECALCIFEROL 400 UNITS TABLET GT SCH ×2 (08:09→21:54)
[2019-09-28] MEDS: PROTEIN SUPPLEMENT (PROSTAT) 30 ML LIQUID GT SCH ×2 (08:09→21:54)
[2019-09-28] MEDS: ALBUTEROL SULFATE 2.5 MG/ 0.5 ML NEBU NEB SCH ×4 (08:10→19:27)
[2019-09-28] MEDS: VITAMINS A AND D OINT TP SCH ×3 (08:10→21:56)
[2019-09-28] MEDS: Z GUARD REMEDY PASTE 57 GM TUBE TOP SCH ×2 (08:10→21:56)
[2019-09-28] MEDS: IPRATROPIUM BROMIDE 0.5 MG/2.5 ML NEBU NEB SCH ×4 (08:10→19:27)
[2019-09-28] MEDS: HYDROGEN PEROXIDE 3% 118 ML BOTTLE TOP SCH ×2 (09:16→21:01)
[2019-09-28 20:23] VITALS: BP 117/80
[2019-09-28] MEDS: MIRALAX 17 GM POWD.PACK GT SCH (21:52)
[2019-09-29] MEDS: OMEPRAZOLE 20 MG CAPSULE.DR GT SCH ×2 (06:18→21:38)
[2019-09-29] MEDS: IPRATROPIUM BROMIDE 0.5 MG/2.5 ML NEBU NEB SCH ×4 (07:18→19:47)
[2019-09-29] MEDS: ALBUTEROL SULFATE 2.5 MG/ 0.5 ML NEBU NEB SCH ×4 (07:18→19:47)
[2019-09-29 07:35] VITALS: BP 118/76
[2019-09-29] MEDS: HYDROGEN PEROXIDE 3% 118 ML BOTTLE TOP SCH ×2 (09:06→21:51)
[2019-09-29] MEDS: PHENOBARBITAL 30 MG/7.5 ML LIQUID UDC GT SCH ×2 (09:13→21:37)
[2019-09-29] MEDS: PROTEIN SUPPLEMENT (PROSTAT) 30 ML LIQUID GT SCH ×2 (09:13→21:39)
[2019-09-29] MEDS: PHENYTOIN 100 MG/4 ML UDC GT SCH ×2 (09:13→21:36)
[2019-09-29] MEDS: VITAMINS A AND D OINT TP SCH ×3 (09:16→21:42)
[2019-09-29] MEDS: Z GUARD REMEDY PASTE 57 GM TUBE TOP SCH ×2 (09:16→21:41)
[2019-09-29] MEDS: CHOLECALCIFEROL 400 UNITS TABLET GT SCH ×2 (09:16→21:41)
[2019-09-29] MEDS: CETAPHIL TOP SCH ×2 (09:16→21:41)
[2019-09-29] MEDS: JEVITY 1.2 1000 ML LIQUID GT PRN (15:00)
[2019-09-29 19:47] VITALS: BP 124/75
[2019-09-29] MEDS: MIRALAX 17 GM POWD.PACK GT SCH (21:36)
[2019-09-30] MEDS: OMEPRAZOLE 20 MG CAPSULE.DR GT SCH ×2 (05:51→21:34)
[2019-09-30] MEDS: IPRATROPIUM BROMIDE 0.5 MG/2.5 ML NEBU NEB SCH ×4 (07:11→19:28)
[2019-09-30] MEDS: ALBUTEROL SULFATE 2.5 MG/ 0.5 ML NEBU NEB SCH ×4 (07:11→19:28)
[2019-09-30] MEDS: HYDROGEN PEROXIDE 3% 118 ML BOTTLE TOP SCH ×2 (07:11→21:10)
[2019-09-30 08:00] VITALS: BP 128/77
[2019-09-30] MEDS: PHENOBARBITAL 30 MG/7.5 ML LIQUID UDC GT SCH ×2 (08:32→21:34)
[2019-09-30] MEDS: PHENYTOIN 100 MG/4 ML UDC GT SCH ×2 (08:32→21:33)
[2019-09-30] MEDS: PROTEIN SUPPLEMENT (PROSTAT) 30 ML LIQUID GT SCH ×2 (08:33→21:35)
[2019-09-30] MEDS: CHOLECALCIFEROL 400 UNITS TABLET GT SCH ×2 (08:33→21:35)
[2019-09-30] MEDS: Z GUARD REMEDY PASTE 57 GM TUBE TOP SCH ×2 (08:34→21:35)
[2019-09-30] MEDS: CETAPHIL TOP SCH ×2 (08:34→21:35)
[2019-09-30] MEDS: VITAMINS A AND D OINT TP SCH ×3 (08:34→21:35)
--- NOTE | 2019-09-30 18:01 | NUR ---
Informed family member BJ, of COVID 19 possible exposure and testing plan with good understanding.
[2019-09-30 20:01] VITALS: BP 137/60
[2019-09-30] MEDS: MIRALAX 17 GM POWD.PACK GT SCH (21:34)
[2019-10-01] MEDS: JEVITY 1.2 1000 ML LIQUID GT PRN (01:00)
--- NOTE | 2019-10-01 02:00 | NUR ---
New order for COVID-19 test per [facility] COVID-19 requirement.
[2019-10-01] MEDS: OMEPRAZOLE 20 MG CAPSULE.DR GT SCH ×2 (05:32→21:00)
[2019-10-01] MEDS: ALBUTEROL SULFATE 2.5 MG/ 0.5 ML NEBU NEB SCH ×4 (07:05→19:00)
[2019-10-01] MEDS: IPRATROPIUM BROMIDE 0.5 MG/2.5 ML NEBU NEB SCH ×4 (07:05→19:00)
[2019-10-01] MEDS: HYDROGEN PEROXIDE 3% 118 ML BOTTLE TOP SCH ×2 (07:05→21:04)
[2019-10-01 07:37] VITALS: BP 126/77
[2019-10-01] MEDS: CETAPHIL TOP SCH ×2 (08:13→21:00)
[2019-10-01] MEDS: PHENYTOIN 100 MG/4 ML UDC GT SCH ×2 (08:13→21:59)
[2019-10-01] MEDS: PHENOBARBITAL 30 MG/7.5 ML LIQUID UDC GT SCH ×2 (08:13→21:00)
[2019-10-01] MEDS: PROTEIN SUPPLEMENT (PROSTAT) 30 ML LIQUID GT SCH ×2 (08:13→21:00)
[2019-10-01] MEDS: CHOLECALCIFEROL 400 UNITS TABLET GT SCH ×2 (08:13→21:00)
[2019-10-01] MEDS: Z GUARD REMEDY PASTE 57 GM TUBE TOP SCH ×2 (08:16→21:00)
[2019-10-01] MEDS: VITAMINS A AND D OINT TP SCH ×3 (08:16→21:00)
[2019-10-01 19:44] VITALS: BP 129/88
[2019-10-01] MEDS: MIRALAX 17 GM POWD.PACK GT SCH (21:00)
[2019-10-02] MEDS: JEVITY 1.2 1000 ML LIQUID GT PRN ×2 (00:44→18:00)
[2019-10-02] MEDS: OMEPRAZOLE 20 MG CAPSULE.DR GT SCH ×2 (05:53→20:34)
[2019-10-02 07:37] VITALS: BP 118/80
[2019-10-02] MEDS: CHOLECALCIFEROL 400 UNITS TABLET GT SCH ×2 (08:05→20:34)
[2019-10-02] MEDS: ALBUTEROL SULFATE 2.5 MG/ 0.5 ML NEBU NEB SCH ×4 (08:05→18:50)
[2019-10-02] MEDS: IPRATROPIUM BROMIDE 0.5 MG/2.5 ML NEBU NEB SCH ×4 (08:05→18:50)
[2019-10-02] MEDS: PHENYTOIN 100 MG/4 ML UDC GT SCH ×2 (08:05→20:34)
[2019-10-02] MEDS: PROTEIN SUPPLEMENT (PROSTAT) 30 ML LIQUID GT SCH ×2 (08:05→20:34)
[2019-10-02] MEDS: VITAMINS A AND D OINT TP SCH ×3 (08:06→20:35)
[2019-10-02] MEDS: CETAPHIL TOP SCH ×2 (08:06→20:34)
[2019-10-02] MEDS: Z GUARD REMEDY PASTE 57 GM TUBE TOP SCH ×2 (08:06→20:34)
[2019-10-02] MEDS: PHENOBARBITAL 30 MG/7.5 ML LIQUID UDC GT SCH ×2 (08:10→20:34)
[2019-10-02] MEDS: HYDROGEN PEROXIDE 3% 118 ML BOTTLE TOP SCH ×2 (09:00→21:40)
--- NOTE | 2019-10-02 18:39 | NUR ---
Laboratory call with results,Covid 19 negative.
[2019-10-02 19:59] VITALS: BP 132/75
[2019-10-02] MEDS: MIRALAX 17 GM POWD.PACK GT SCH (20:34)
[2019-10-03] MEDS: OMEPRAZOLE 20 MG CAPSULE.DR GT SCH ×2 (05:07→21:00)
[2019-10-03] MEDS: IPRATROPIUM BROMIDE 0.5 MG/2.5 ML NEBU NEB SCH ×4 (07:19→18:46)
[2019-10-03] MEDS: ALBUTEROL SULFATE 2.5 MG/ 0.5 ML NEBU NEB SCH ×4 (07:19→18:46)
[2019-10-03 07:54] VITALS: BP 125/70
[2019-10-03] MEDS: HYDROGEN PEROXIDE 3% 118 ML BOTTLE TOP SCH ×2 (08:40→18:46)
[2019-10-03] MEDS: PHENOBARBITAL 30 MG/7.5 ML LIQUID UDC GT SCH ×2 (08:47→21:00)
[2019-10-03] MEDS: PHENYTOIN 100 MG/4 ML UDC GT SCH ×2 (08:47→21:00)
[2019-10-03] MEDS: CHOLECALCIFEROL 400 UNITS TABLET GT SCH ×2 (08:48→21:00)
[2019-10-03] MEDS: PROTEIN SUPPLEMENT (PROSTAT) 30 ML LIQUID GT SCH ×2 (08:48→21:00)
[2019-10-03] MEDS: CETAPHIL TOP SCH ×2 (08:49→21:00)
[2019-10-03] MEDS: Z GUARD REMEDY PASTE 57 GM TUBE TOP SCH ×2 (08:49→21:00)
[2019-10-03] MEDS: VITAMINS A AND D OINT TP SCH ×3 (08:49→21:00)
--- NOTE | 2019-10-03 19:00 | NUR ---
Spoke to BJ pt's mother aware of Covid 19 results are negative.
[2019-10-03 20:37] VITALS: BP 120/80
[2019-10-03] MEDS: MIRALAX 17 GM POWD.PACK GT SCH (21:00)
[2019-10-04] MEDS: OMEPRAZOLE 20 MG CAPSULE.DR GT SCH ×2 (06:30→21:02)
[2019-10-04] MEDS: ALBUTEROL SULFATE 2.5 MG/ 0.5 ML NEBU NEB SCH ×4 (07:19→18:53)
[2019-10-04] MEDS: IPRATROPIUM BROMIDE 0.5 MG/2.5 ML NEBU NEB SCH ×4 (07:19→18:53)
[2019-10-04 07:31] VITALS: BP 126/79
[2019-10-04] MEDS: PHENYTOIN 100 MG/4 ML UDC GT SCH ×2 (08:25→21:01)
[2019-10-04] MEDS: CETAPHIL TOP SCH ×2 (08:25→21:01)
[2019-10-04] MEDS: CHOLECALCIFEROL 400 UNITS TABLET GT SCH ×2 (08:25→21:01)
[2019-10-04] MEDS: PHENOBARBITAL 30 MG/7.5 ML LIQUID UDC GT SCH ×2 (08:25→21:01)
[2019-10-04] MEDS: PROTEIN SUPPLEMENT (PROSTAT) 30 ML LIQUID GT SCH ×2 (08:25→21:00)
[2019-10-04] MEDS: VITAMINS A AND D OINT TP SCH ×3 (08:25→21:00)
[2019-10-04] MEDS: Z GUARD REMEDY PASTE 57 GM TUBE TOP SCH ×2 (08:25→21:00)
[2019-10-04] MEDS: HYDROGEN PEROXIDE 3% 118 ML BOTTLE TOP SCH ×2 (09:28→21:16)
[2019-10-04 20:04] VITALS: BP 121/73
[2019-10-04] MEDS: MIRALAX 17 GM POWD.PACK GT SCH (21:01)
[2019-10-05] MEDS: OMEPRAZOLE 20 MG CAPSULE.DR GT SCH ×2 (05:30→21:02)
[2019-10-05] MEDS: JEVITY 1.2 1000 ML LIQUID GT PRN (05:31)
[2019-10-05] MEDS: IPRATROPIUM BROMIDE 0.5 MG/2.5 ML NEBU NEB SCH ×4 (07:19→18:53)
[2019-10-05] MEDS: ALBUTEROL SULFATE 2.5 MG/ 0.5 ML NEBU NEB SCH ×4 (07:19→18:53)
[2019-10-05] MEDS: HYDROGEN PEROXIDE 3% 118 ML BOTTLE TOP SCH ×2 (07:19→21:23)
[2019-10-05 07:30] VITALS: BP 141/85
[2019-10-05] MEDS: PHENYTOIN 100 MG/4 ML UDC GT SCH ×2 (09:50→21:02)
[2019-10-05] MEDS: VITAMINS A AND D OINT TP SCH ×3 (09:50→21:02)
[2019-10-05] MEDS: Z GUARD REMEDY PASTE 57 GM TUBE TOP SCH ×2 (09:50→21:02)
[2019-10-05] MEDS: PROTEIN SUPPLEMENT (PROSTAT) 30 ML LIQUID GT SCH ×2 (09:50→21:02)
[2019-10-05] MEDS: CHOLECALCIFEROL 400 UNITS TABLET GT SCH ×2 (09:50→21:02)
[2019-10-05] MEDS: PHENOBARBITAL 30 MG/7.5 ML LIQUID UDC GT SCH ×2 (09:50→21:02)
[2019-10-05] MEDS: CETAPHIL TOP SCH ×2 (09:50→21:02)
--- NOTE | 2019-10-05 16:04 | NUR ---
INTERDISCIPLINARY PLAN OF CARE CONFERENCE was held today. Patient's parents were not available to participate in the meeting. Dr. Hammond and the Interdisciplinary team reviewed the current plan of care in detail. RN reported on patient's current medical condition, reporting that there have been no changes in condition at this time. See RN IDT conference notes. See also all other disciplines IDT notes and physician's progress notes for additional details.
[2019-10-05 20:00] VITALS: BP 123/79
[2019-10-05] MEDS: MIRALAX 17 GM POWD.PACK GT SCH (21:02)
[2019-10-06] MEDS: OMEPRAZOLE 20 MG CAPSULE.DR GT SCH ×2 (06:41→21:09)
[2019-10-06] MEDS: JEVITY 1.2 1000 ML LIQUID GT PRN (06:48)
[2019-10-06] MEDS: ALBUTEROL SULFATE 2.5 MG/ 0.5 ML NEBU NEB SCH ×4 (07:20→18:45)
[2019-10-06] MEDS: IPRATROPIUM BROMIDE 0.5 MG/2.5 ML NEBU NEB SCH ×4 (07:20→18:45)
[2019-10-06 07:29] VITALS: BP 141/77
[2019-10-06] MEDS: HYDROGEN PEROXIDE 3% 118 ML BOTTLE TOP SCH ×2 (08:40→18:45)
[2019-10-06] MEDS: PROTEIN SUPPLEMENT (PROSTAT) 30 ML LIQUID GT SCH ×2 (09:24→21:09)
[2019-10-06] MEDS: PHENOBARBITAL 30 MG/7.5 ML LIQUID UDC GT SCH ×2 (09:24→21:09)
[2019-10-06] MEDS: PHENYTOIN 100 MG/4 ML UDC GT SCH ×2 (09:24→21:09)
[2019-10-06] MEDS: VITAMINS A AND D OINT TP SCH ×3 (09:28→21:15)
[2019-10-06] MEDS: CETAPHIL TOP SCH ×2 (09:28→21:15)
[2019-10-06] MEDS: Z GUARD REMEDY PASTE 57 GM TUBE TOP SCH ×2 (09:28→21:15)
[2019-10-06] MEDS: CHOLECALCIFEROL 400 UNITS TABLET GT SCH ×2 (09:28→21:09)
--- NOTE | 2019-10-06 15:53 | NUR ---
New order for COVID-19 test per [facility] COVID-19 requirement.
[2019-10-06 20:00] VITALS: BP 114/78
--- NOTE | 2019-10-06 20:50 | NUR ---
[facility] n.p. was in, no new orders.
[2019-10-06] MEDS: MIRALAX 17 GM POWD.PACK GT SCH (21:09)
[2019-10-07] MEDS: JEVITY 1.2 1000 ML LIQUID GT PRN ×2 (01:15→05:00)
[2019-10-07] MEDS: OMEPRAZOLE 20 MG CAPSULE.DR GT SCH ×2 (05:00→21:36)
[2019-10-07 07:44] VITALS: BP 136/78
[2019-10-07] MEDS: IPRATROPIUM BROMIDE 0.5 MG/2.5 ML NEBU NEB SCH ×4 (08:05→18:58)
[2019-10-07] MEDS: ALBUTEROL SULFATE 2.5 MG/ 0.5 ML NEBU NEB SCH ×4 (08:05→18:58)
[2019-10-07] MEDS: HYDROGEN PEROXIDE 3% 118 ML BOTTLE TOP SCH ×2 (09:08→20:34)
[2019-10-07] MEDS: PHENYTOIN 100 MG/4 ML UDC GT SCH ×2 (09:10→21:36)
[2019-10-07] MEDS: PHENOBARBITAL 30 MG/7.5 ML LIQUID UDC GT SCH ×2 (09:11→21:36)
[2019-10-07] MEDS: CETAPHIL TOP SCH ×2 (09:12→21:36)
[2019-10-07] MEDS: PROTEIN SUPPLEMENT (PROSTAT) 30 ML LIQUID GT SCH ×2 (09:12→21:36)
[2019-10-07] MEDS: CHOLECALCIFEROL 400 UNITS TABLET GT SCH ×2 (09:12→21:36)
[2019-10-07] MEDS: Z GUARD REMEDY PASTE 57 GM TUBE TOP SCH ×2 (09:12→21:36)
[2019-10-07] MEDS: VITAMINS A AND D OINT TP SCH ×3 (09:13→21:36)
--- NOTE | 2019-10-07 18:45 | NUR ---
PT'S MOTHER AWARE OF COVID 19 TESTING TOMORROW AND IN AGREEMENT.
[2019-10-07 20:00] VITALS: BP 137/74
[2019-10-07] MEDS: MIRALAX 17 GM POWD.PACK GT SCH (21:36)
[2019-10-08] MEDS: JEVITY 1.2 1000 ML LIQUID GT PRN (02:45)
[2019-10-08] MEDS: OMEPRAZOLE 20 MG CAPSULE.DR GT SCH ×2 (06:02→21:40)
[2019-10-08] MEDS: ALBUTEROL SULFATE 2.5 MG/ 0.5 ML NEBU NEB SCH ×4 (07:37→18:58)
[2019-10-08] MEDS: IPRATROPIUM BROMIDE 0.5 MG/2.5 ML NEBU NEB SCH ×4 (07:37→18:58)
[2019-10-08 07:54] VITALS: BP 105/75
[2019-10-08] MEDS: HYDROGEN PEROXIDE 3% 118 ML BOTTLE TOP SCH ×2 (08:42→21:01)
[2019-10-08] MEDS: PHENYTOIN 100 MG/4 ML UDC GT SCH ×2 (08:59→21:40)
[2019-10-08] MEDS: PHENOBARBITAL 30 MG/7.5 ML LIQUID UDC GT SCH ×2 (09:00→21:40)
[2019-10-08] MEDS: PROTEIN SUPPLEMENT (PROSTAT) 30 ML LIQUID GT SCH ×2 (09:01→21:40)
[2019-10-08] MEDS: Z GUARD REMEDY PASTE 57 GM TUBE TOP SCH ×2 (09:01→21:40)
[2019-10-08] MEDS: CETAPHIL TOP SCH ×2 (09:01→21:40)
[2019-10-08] MEDS: CHOLECALCIFEROL 400 UNITS TABLET GT SCH ×2 (09:01→21:40)
[2019-10-08] MEDS: VITAMINS A AND D OINT TP SCH ×3 (09:01→21:40)
--- NOTE | 2019-10-08 19:00 | NUR ---
PT REMAIN ON CONTINUOUS VENT, TRACH CARE DONE. TRACH IN PLACED AND SECURED WITH TRACH TIE. BACK UP TRACH AND AMBU BAG AT BEDSIDE. IN LINE TX GIVEN WITH UD ALBUTEROL + UD ATROVENT ORDERED. SUCTION PRN. VENT CHECKED, ALARMS WORKING WELL AND AUDIBLE. NO DISTRESS NOTED AT THIS TIME. WILL CONTINUE TO MONITOR.
[2019-10-08 20:00] VITALS: BP 132/75
[2019-10-08] MEDS: MIRALAX 17 GM POWD.PACK GT SCH (21:40)
[2019-10-09] MEDS: JEVITY 1.2 1000 ML LIQUID GT PRN ×2 (03:20→18:56)
[2019-10-09] MEDS: OMEPRAZOLE 20 MG CAPSULE.DR GT SCH ×2 (05:31→21:16)
[2019-10-09] MEDS: ALBUTEROL SULFATE 2.5 MG/ 0.5 ML NEBU NEB SCH ×4 (07:23→18:50)
[2019-10-09] MEDS: IPRATROPIUM BROMIDE 0.5 MG/2.5 ML NEBU NEB SCH ×4 (07:23→18:50)
[2019-10-09 07:33] VITALS: BP 144/14
[2019-10-09] MEDS: HYDROGEN PEROXIDE 3% 118 ML BOTTLE TOP SCH ×2 (08:48→21:12)
[2019-10-09] MEDS: PHENYTOIN 100 MG/4 ML UDC GT SCH ×2 (08:50→21:15)
[2019-10-09] MEDS: CHOLECALCIFEROL 400 UNITS TABLET GT SCH ×2 (08:52→21:16)
[2019-10-09] MEDS: PROTEIN SUPPLEMENT (PROSTAT) 30 ML LIQUID GT SCH ×2 (08:52→21:16)
[2019-10-09] MEDS: PHENOBARBITAL 30 MG/7.5 ML LIQUID UDC GT SCH ×2 (08:52→21:16)
[2019-10-09] MEDS: Z GUARD REMEDY PASTE 57 GM TUBE TOP SCH ×2 (08:53→21:16)
[2019-10-09] MEDS: VITAMINS A AND D OINT TP SCH ×3 (08:53→21:16)
[2019-10-09] MEDS: CETAPHIL TOP SCH ×2 (08:53→21:16)
[2019-10-09] MEDS: MIRALAX 17 GM POWD.PACK GT SCH (21:15)
[2019-10-09 22:38] VITALS: BP 146/75
[2019-10-10] MEDS: OMEPRAZOLE 20 MG CAPSULE.DR GT SCH ×2 (05:53→21:56)
[2019-10-10] MEDS: ALBUTEROL SULFATE 2.5 MG/ 0.5 ML NEBU NEB SCH ×4 (07:20→18:54)
[2019-10-10] MEDS: IPRATROPIUM BROMIDE 0.5 MG/2.5 ML NEBU NEB SCH ×4 (07:20→18:54)
[2019-10-10 07:45] VITALS: BP 135/85
[2019-10-10] MEDS: PHENOBARBITAL 30 MG/7.5 ML LIQUID UDC GT SCH ×2 (08:56→21:56)
[2019-10-10] MEDS: CHOLECALCIFEROL 400 UNITS TABLET GT SCH ×2 (08:58→21:56)
[2019-10-10] MEDS: CETAPHIL TOP SCH ×2 (08:58→21:56)
[2019-10-10] MEDS: PROTEIN SUPPLEMENT (PROSTAT) 30 ML LIQUID GT SCH ×2 (08:58→21:56)
[2019-10-10] MEDS: Z GUARD REMEDY PASTE 57 GM TUBE TOP SCH ×2 (08:58→21:56)
[2019-10-10] MEDS: VITAMINS A AND D OINT TP SCH ×3 (08:59→21:57)
[2019-10-10] MEDS: HYDROGEN PEROXIDE 3% 118 ML BOTTLE TOP SCH ×2 (09:00→21:16)
[2019-10-10] MEDS: PHENYTOIN 100 MG/4 ML UDC GT SCH ×2 (09:04→21:56)
--- NOTE | 2019-10-10 16:27 | NUR ---
PT'S MOTHER AWARE THAT PT.IS NEGATIVE FOR COVID 19 TEST.
[2019-10-10] MEDS: JEVITY 1.2 1000 ML LIQUID GT PRN (18:18)
[2019-10-10 19:47] VITALS: BP 124/88
[2019-10-10] MEDS: MIRALAX 17 GM POWD.PACK GT SCH (21:56)
[2019-10-11] MEDS: OMEPRAZOLE 20 MG CAPSULE.DR GT SCH ×2 (05:48→21:47)
[2019-10-11] MEDS: IPRATROPIUM BROMIDE 0.5 MG/2.5 ML NEBU NEB SCH ×4 (07:10→18:50)
[2019-10-11] MEDS: ALBUTEROL SULFATE 2.5 MG/ 0.5 ML NEBU NEB SCH ×4 (07:11→18:50)
[2019-10-11 07:32] VITALS: BP 136/86
[2019-10-11] MEDS: PHENYTOIN 100 MG/4 ML UDC GT SCH ×2 (08:27→21:47)
[2019-10-11] MEDS: PHENOBARBITAL 30 MG/7.5 ML LIQUID UDC GT SCH ×2 (08:28→21:47)
[2019-10-11] MEDS: CHOLECALCIFEROL 400 UNITS TABLET GT SCH ×2 (08:29→21:47)
[2019-10-11] MEDS: Z GUARD REMEDY PASTE 57 GM TUBE TOP SCH ×2 (08:29→21:47)
[2019-10-11] MEDS: PROTEIN SUPPLEMENT (PROSTAT) 30 ML LIQUID GT SCH ×2 (08:29→21:47)
[2019-10-11] MEDS: VITAMINS A AND D OINT TP SCH ×3 (08:29→21:47)
[2019-10-11] MEDS: CETAPHIL TOP SCH ×2 (08:29→21:47)
[2019-10-11] MEDS: HYDROGEN PEROXIDE 3% 118 ML BOTTLE TOP SCH ×2 (08:35→21:34)
[2019-10-11 20:43] VITALS: BP 129/83
[2019-10-11] MEDS: MIRALAX 17 GM POWD.PACK GT SCH (21:47)
[2019-10-12] MEDS: OMEPRAZOLE 20 MG CAPSULE.DR GT SCH ×2 (05:47→21:34)
[2019-10-12] MEDS: IPRATROPIUM BROMIDE 0.5 MG/2.5 ML NEBU NEB SCH ×4 (07:22→19:12)
[2019-10-12] MEDS: ALBUTEROL SULFATE 2.5 MG/ 0.5 ML NEBU NEB SCH ×4 (07:22→19:12)
[2019-10-12 07:43] VITALS: BP 123/77
[2019-10-12] MEDS: HYDROGEN PEROXIDE 3% 118 ML BOTTLE TOP SCH ×2 (09:10→20:50)
[2019-10-12] MEDS: PHENYTOIN 100 MG/4 ML UDC GT SCH ×2 (09:15→21:32)
[2019-10-12] MEDS: PHENOBARBITAL 30 MG/7.5 ML LIQUID UDC GT SCH ×2 (09:18→21:34)
[2019-10-12] MEDS: PROTEIN SUPPLEMENT (PROSTAT) 30 ML LIQUID GT SCH ×2 (09:18→21:34)
[2019-10-12] MEDS: CETAPHIL TOP SCH ×2 (09:20→21:34)
[2019-10-12] MEDS: CHOLECALCIFEROL 400 UNITS TABLET GT SCH ×2 (09:20→21:34)
[2019-10-12] MEDS: VITAMINS A AND D OINT TP SCH ×3 (09:21→21:35)
[2019-10-12] MEDS: Z GUARD REMEDY PASTE 57 GM TUBE TOP SCH ×2 (09:27→21:35)
[2019-10-12] MEDS: JEVITY 1.2 1000 ML LIQUID GT PRN (11:56)
[2019-10-12 19:58] VITALS: BP 147/87
[2019-10-12] MEDS: MIRALAX 17 GM POWD.PACK GT SCH (21:32)
[2019-10-13] MEDS: OMEPRAZOLE 20 MG CAPSULE.DR GT SCH ×2 (05:47→21:00)
[2019-10-13] MEDS: ALBUTEROL SULFATE 2.5 MG/ 0.5 ML NEBU NEB SCH ×4 (07:26→19:10)
[2019-10-13] MEDS: IPRATROPIUM BROMIDE 0.5 MG/2.5 ML NEBU NEB SCH ×4 (07:26→19:10)
[2019-10-13 07:44] VITALS: BP 117/63
[2019-10-13] MEDS: PHENYTOIN 100 MG/4 ML UDC GT SCH ×2 (08:02→21:00)
[2019-10-13] MEDS: PHENOBARBITAL 30 MG/7.5 ML LIQUID UDC GT SCH ×2 (08:02→21:00)
[2019-10-13] MEDS: VITAMINS A AND D OINT TP SCH ×3 (08:03→21:00)
[2019-10-13] MEDS: PROTEIN SUPPLEMENT (PROSTAT) 30 ML LIQUID GT SCH ×2 (08:03→21:00)
[2019-10-13] MEDS: Z GUARD REMEDY PASTE 57 GM TUBE TOP SCH ×2 (08:03→21:00)
[2019-10-13] MEDS: CHOLECALCIFEROL 400 UNITS TABLET GT SCH ×2 (08:03→21:00)
[2019-10-13] MEDS: CETAPHIL TOP SCH ×2 (08:03→21:00)
[2019-10-13] MEDS: HYDROGEN PEROXIDE 3% 118 ML BOTTLE TOP SCH ×2 (08:21→21:05)
--- NOTE | 2019-10-13 19:15 | NUR ---
PT REMAIN ON CONTINUOUS VENT, TRACH IN PLACED AND SECURED WITH TRACH TIE. BACK UP TRACH AND AMBU BAG AT BEDSIDE. IN LINE TX GIVEN WITH UD ALBUTEROL + UD ATROVENT ORDERED. SUCTION PRN. VENT CHECKED, ALARMS WORKING WELL AND AUDIBLE. TRACH CARE DONE WITHOUT COMPLICATIONS NOTED. NO DISTRESS NOTED AT THIS TIME. WILL CONTINUE TO MONITOR.
[2019-10-13 20:43] VITALS: BP 121/65
[2019-10-13] MEDS: MIRALAX 17 GM POWD.PACK GT SCH (21:00)
[2019-10-14] MEDS: JEVITY 1.2 1000 ML LIQUID GT PRN (04:16)
[2019-10-14] MEDS: OMEPRAZOLE 20 MG CAPSULE.DR GT SCH ×2 (06:05→21:52)
[2019-10-14 07:31] VITALS: BP 109/67
[2019-10-14] MEDS: IPRATROPIUM BROMIDE 0.5 MG/2.5 ML NEBU NEB SCH ×4 (08:06→19:10)
[2019-10-14] MEDS: ALBUTEROL SULFATE 2.5 MG/ 0.5 ML NEBU NEB SCH ×4 (08:06→19:10)
[2019-10-14] MEDS: PHENYTOIN 100 MG/4 ML UDC GT SCH ×2 (08:33→21:50)
[2019-10-14] MEDS: PHENOBARBITAL 30 MG/7.5 ML LIQUID UDC GT SCH ×2 (08:37→21:51)
[2019-10-14] MEDS: PROTEIN SUPPLEMENT (PROSTAT) 30 ML LIQUID GT SCH ×2 (08:38→21:52)
[2019-10-14] MEDS: CETAPHIL TOP SCH ×2 (08:39→21:53)
[2019-10-14] MEDS: Z GUARD REMEDY PASTE 57 GM TUBE TOP SCH ×2 (08:39→21:53)
[2019-10-14] MEDS: CHOLECALCIFEROL 400 UNITS TABLET GT SCH ×2 (08:39→21:53)
[2019-10-14] MEDS: VITAMINS A AND D OINT TP SCH ×3 (08:40→21:53)
[2019-10-14] MEDS: HYDROGEN PEROXIDE 3% 118 ML BOTTLE TOP SCH ×2 (09:00→21:30)
[2019-10-14] MEDS: MIRALAX 17 GM POWD.PACK GT SCH (21:50)
[2019-10-15] MEDS: OMEPRAZOLE 20 MG CAPSULE.DR GT SCH ×2 (06:06→20:44)
[2019-10-15] MEDS: ALBUTEROL SULFATE 2.5 MG/ 0.5 ML NEBU NEB SCH ×4 (07:37→19:05)
[2019-10-15] MEDS: IPRATROPIUM BROMIDE 0.5 MG/2.5 ML NEBU NEB SCH ×4 (07:37→19:05)
[2019-10-15 07:44] VITALS: BP 112/61
[2019-10-15] MEDS: PHENYTOIN 100 MG/4 ML UDC GT SCH ×2 (08:28→20:44)
[2019-10-15] MEDS: PHENOBARBITAL 30 MG/7.5 ML LIQUID UDC GT SCH ×2 (08:29→20:44)
[2019-10-15] MEDS: PROTEIN SUPPLEMENT (PROSTAT) 30 ML LIQUID GT SCH ×2 (08:29→20:44)
[2019-10-15] MEDS: CHOLECALCIFEROL 400 UNITS TABLET GT SCH ×2 (08:30→20:44)
[2019-10-15] MEDS: CETAPHIL TOP SCH ×2 (08:31→20:44)
[2019-10-15] MEDS: Z GUARD REMEDY PASTE 57 GM TUBE TOP SCH ×2 (08:31→20:44)
[2019-10-15] MEDS: VITAMINS A AND D OINT TP SCH ×3 (08:31→20:44)
[2019-10-15] MEDS: HYDROGEN PEROXIDE 3% 118 ML BOTTLE TOP SCH ×2 (09:21→21:07)
--- NOTE | 2019-10-15 17:02 | NUR ---
Mother was informed result for covid19 test was negative.
--- NOTE | 2019-10-15 19:10 | NUR ---
PT REMAIN ON CONTINUOUS VENT, TRACH CARE DONE. VENT CIRCUIT CHANGED . TRACH IN PLACED AND SECURED WITH TRACH TIE. BACK UP TRACH AND AMBU BAG AT BEDSIDE. IN LINE TX GIVEN WITH UD ALBUTEROL + UD ATROVENT ORDERED. SUCTION PRN. VENT CHECKED, ALARMS WORKING WELL AND AUDIBLE. NO DISTRESS NOTED AT THIS TIME. WILL CONTINUE TO MONITOR.
[2019-10-15] MEDS: JEVITY 1.2 1000 ML LIQUID GT PRN (19:46)
[2019-10-15 20:08] VITALS: BP 138/80
[2019-10-15] MEDS: MIRALAX 17 GM POWD.PACK GT SCH (20:44)
[2019-10-16] MEDS: OMEPRAZOLE 20 MG CAPSULE.DR GT SCH ×2 (05:46→20:52)
[2019-10-16] MEDS: IPRATROPIUM BROMIDE 0.5 MG/2.5 ML NEBU NEB SCH ×4 (07:23→18:55)
[2019-10-16] MEDS: ALBUTEROL SULFATE 2.5 MG/ 0.5 ML NEBU NEB SCH ×4 (07:23→18:55)
[2019-10-16 07:43] VITALS: BP 129/79
[2019-10-16] MEDS: CHOLECALCIFEROL 400 UNITS TABLET GT SCH ×2 (08:23→20:52)
[2019-10-16] MEDS: PROTEIN SUPPLEMENT (PROSTAT) 30 ML LIQUID GT SCH ×2 (08:23→20:52)
[2019-10-16] MEDS: PHENYTOIN 100 MG/4 ML UDC GT SCH ×2 (08:23→20:52)
[2019-10-16] MEDS: CETAPHIL TOP SCH ×2 (08:23→20:52)
[2019-10-16] MEDS: PHENOBARBITAL 30 MG/7.5 ML LIQUID UDC GT SCH ×2 (08:23→20:52)
[2019-10-16] MEDS: VITAMINS A AND D OINT TP SCH ×3 (08:24→20:52)
[2019-10-16] MEDS: Z GUARD REMEDY PASTE 57 GM TUBE TOP SCH ×2 (08:24→20:52)
[2019-10-16] MEDS: HYDROGEN PEROXIDE 3% 118 ML BOTTLE TOP SCH ×2 (08:50→21:23)
[2019-10-16] MEDS: JEVITY 1.2 1000 ML LIQUID GT PRN (17:27)
[2019-10-16 20:10] VITALS: BP 120/62
[2019-10-16] MEDS: MIRALAX 17 GM POWD.PACK GT SCH (20:52)
[2019-10-17] MEDS: OMEPRAZOLE 20 MG CAPSULE.DR GT SCH ×2 (05:35→20:49)
[2019-10-17] MEDS: IPRATROPIUM BROMIDE 0.5 MG/2.5 ML NEBU NEB SCH ×4 (07:45→19:02)
[2019-10-17] MEDS: ALBUTEROL SULFATE 2.5 MG/ 0.5 ML NEBU NEB SCH ×4 (07:45→19:02)
[2019-10-17 07:47] VITALS: BP 116/76
[2019-10-17] MEDS: PROTEIN SUPPLEMENT (PROSTAT) 30 ML LIQUID GT SCH ×2 (08:25→20:49)
[2019-10-17] MEDS: Z GUARD REMEDY PASTE 57 GM TUBE TOP SCH ×2 (08:25→20:49)
[2019-10-17] MEDS: VITAMINS A AND D OINT TP SCH ×3 (08:25→20:49)
[2019-10-17] MEDS: CHOLECALCIFEROL 400 UNITS TABLET GT SCH ×2 (08:25→20:49)
[2019-10-17] MEDS: PHENYTOIN 100 MG/4 ML UDC GT SCH ×2 (08:25→20:49)
[2019-10-17] MEDS: CETAPHIL TOP SCH ×2 (08:25→20:49)
[2019-10-17] MEDS: PHENOBARBITAL 30 MG/7.5 ML LIQUID UDC GT SCH ×2 (08:25→20:49)
[2019-10-17] MEDS: HYDROGEN PEROXIDE 3% 118 ML BOTTLE TOP SCH ×2 (09:41→21:20)
[2019-10-17] MEDS: JEVITY 1.2 1000 ML LIQUID GT PRN (16:41)
[2019-10-17 20:02] VITALS: BP 102/77
[2019-10-17] MEDS: MIRALAX 17 GM POWD.PACK GT SCH (20:49)
[2019-10-18] MEDS: OMEPRAZOLE 20 MG CAPSULE.DR GT SCH ×2 (05:31→21:13)
[2019-10-18 07:45] VITALS: BP 129/80
[2019-10-18] MEDS: IPRATROPIUM BROMIDE 0.5 MG/2.5 ML NEBU NEB SCH ×4 (07:45→19:05)
[2019-10-18] MEDS: ALBUTEROL SULFATE 2.5 MG/ 0.5 ML NEBU NEB SCH ×4 (07:45→19:05)
[2019-10-18] MEDS: HYDROGEN PEROXIDE 3% 118 ML BOTTLE TOP SCH ×2 (08:17→21:40)
[2019-10-18] MEDS: Z GUARD REMEDY PASTE 57 GM TUBE TOP SCH ×2 (08:52→21:14)
[2019-10-18] MEDS: PROTEIN SUPPLEMENT (PROSTAT) 30 ML LIQUID GT SCH ×2 (08:52→21:13)
[2019-10-18] MEDS: CHOLECALCIFEROL 400 UNITS TABLET GT SCH ×2 (08:52→21:13)
[2019-10-18] MEDS: PHENOBARBITAL 30 MG/7.5 ML LIQUID UDC GT SCH ×2 (08:52→21:13)
[2019-10-18] MEDS: VITAMINS A AND D OINT TP SCH ×3 (08:52→21:14)
[2019-10-18] MEDS: CETAPHIL TOP SCH ×2 (08:52→21:14)
[2019-10-18] MEDS: PHENYTOIN 100 MG/4 ML UDC GT SCH ×2 (08:52→21:13)
[2019-10-18 20:02] VITALS: BP 122/79
[2019-10-18] MEDS: MIRALAX 17 GM POWD.PACK GT SCH (21:13)
[2019-10-19] MEDS: OMEPRAZOLE 20 MG CAPSULE.DR GT SCH ×2 (06:36→21:00)
[2019-10-19] MEDS: IPRATROPIUM BROMIDE 0.5 MG/2.5 ML NEBU NEB SCH ×4 (07:17→18:56)
[2019-10-19] MEDS: ALBUTEROL SULFATE 2.5 MG/ 0.5 ML NEBU NEB SCH ×4 (07:17→18:56)
[2019-10-19 07:34] VITALS: BP 147/71
[2019-10-19] MEDS: PHENYTOIN 100 MG/4 ML UDC GT SCH ×2 (08:14→20:59)
[2019-10-19] MEDS: CHOLECALCIFEROL 400 UNITS TABLET GT SCH ×2 (08:17→21:01)
[2019-10-19] MEDS: PROTEIN SUPPLEMENT (PROSTAT) 30 ML LIQUID GT SCH ×2 (08:17→21:01)
[2019-10-19] MEDS: CETAPHIL TOP SCH ×2 (08:17→21:01)
[2019-10-19] MEDS: Z GUARD REMEDY PASTE 57 GM TUBE TOP SCH ×2 (08:17→21:01)
[2019-10-19] MEDS: PHENOBARBITAL 30 MG/7.5 ML LIQUID UDC GT SCH ×2 (08:17→21:00)
[2019-10-19] MEDS: VITAMINS A AND D OINT TP SCH ×3 (08:18→21:02)
[2019-10-19] MEDS: HYDROGEN PEROXIDE 3% 118 ML BOTTLE TOP SCH ×2 (09:09→18:56)
[2019-10-19] MEDS: JEVITY 1.2 1000 ML LIQUID GT PRN (16:09)
[2019-10-19 19:52] VITALS: BP 122/73
[2019-10-19] MEDS: MIRALAX 17 GM POWD.PACK GT SCH (20:59)
[2019-10-20] MEDS: OMEPRAZOLE 20 MG CAPSULE.DR GT SCH ×2 (05:37→21:48)
[2019-10-20] MEDS: ALBUTEROL SULFATE 2.5 MG/ 0.5 ML NEBU NEB SCH ×4 (07:10→18:49)
[2019-10-20] MEDS: HYDROGEN PEROXIDE 3% 118 ML BOTTLE TOP SCH ×2 (07:10→21:27)
[2019-10-20] MEDS: IPRATROPIUM BROMIDE 0.5 MG/2.5 ML NEBU NEB SCH ×4 (07:10→18:49)
[2019-10-20 07:40] VITALS: BP 135/79
[2019-10-20] MEDS: PHENOBARBITAL 30 MG/7.5 ML LIQUID UDC GT SCH ×2 (09:30→21:47)
[2019-10-20] MEDS: PROTEIN SUPPLEMENT (PROSTAT) 30 ML LIQUID GT SCH ×2 (09:34→21:48)
[2019-10-20] MEDS: PHENYTOIN 100 MG/4 ML UDC GT SCH ×2 (09:34→21:46)
[2019-10-20] MEDS: Z GUARD REMEDY PASTE 57 GM TUBE TOP SCH ×2 (09:35→21:49)
[2019-10-20] MEDS: CHOLECALCIFEROL 400 UNITS TABLET GT SCH ×2 (09:35→21:48)
[2019-10-20] MEDS: VITAMINS A AND D OINT TP SCH ×3 (09:35→21:49)
[2019-10-20] MEDS: CETAPHIL TOP SCH ×2 (09:35→21:49)
[2019-10-20 19:52] VITALS: BP 117/76
[2019-10-20] MEDS: MIRALAX 17 GM POWD.PACK GT SCH (21:47)
[2019-10-21] MEDS: OMEPRAZOLE 20 MG CAPSULE.DR GT SCH ×2 (05:56→21:42)
[2019-10-21] MEDS: ALBUTEROL SULFATE 2.5 MG/ 0.5 ML NEBU NEB SCH ×4 (07:35→18:47)
[2019-10-21] MEDS: IPRATROPIUM BROMIDE 0.5 MG/2.5 ML NEBU NEB SCH ×4 (07:35→18:47)
[2019-10-21 07:37] VITALS: BP 128/58
[2019-10-21] MEDS: HYDROGEN PEROXIDE 3% 118 ML BOTTLE TOP SCH ×2 (09:31→21:39)
[2019-10-21] MEDS: PHENYTOIN 100 MG/4 ML UDC GT SCH ×2 (09:45→21:42)
[2019-10-21] MEDS: PHENOBARBITAL 30 MG/7.5 ML LIQUID UDC GT SCH ×2 (09:45→21:42)
[2019-10-21] MEDS: Z GUARD REMEDY PASTE 57 GM TUBE TOP SCH ×2 (09:46→21:45)
[2019-10-21] MEDS: CETAPHIL TOP SCH ×2 (09:46→21:45)
[2019-10-21] MEDS: VITAMINS A AND D OINT TP SCH ×3 (09:46→21:45)
[2019-10-21] MEDS: PROTEIN SUPPLEMENT (PROSTAT) 30 ML LIQUID GT SCH ×2 (09:46→21:45)
[2019-10-21] MEDS: CHOLECALCIFEROL 400 UNITS TABLET GT SCH ×2 (09:46→21:45)
[2019-10-21] MEDS: MIRALAX 17 GM POWD.PACK GT SCH (21:42)
[2019-10-21 22:13] VITALS: BP 120/79
[2019-10-22] MEDS: OMEPRAZOLE 20 MG CAPSULE.DR GT SCH ×2 (05:52→21:44)
[2019-10-22 07:40] VITALS: BP 129/72
[2019-10-22] MEDS: PHENYTOIN 100 MG/4 ML UDC GT SCH ×2 (08:07→21:44)
[2019-10-22] MEDS: PHENOBARBITAL 30 MG/7.5 ML LIQUID UDC GT SCH ×2 (08:08→21:44)
[2019-10-22] MEDS: CETAPHIL TOP SCH ×2 (08:09→21:44)
[2019-10-22] MEDS: CHOLECALCIFEROL 400 UNITS TABLET GT SCH ×2 (08:09→21:44)
[2019-10-22] MEDS: PROTEIN SUPPLEMENT (PROSTAT) 30 ML LIQUID GT SCH ×2 (08:09→21:44)
[2019-10-22] MEDS: VITAMINS A AND D OINT TP SCH ×3 (08:10→21:45)
[2019-10-22] MEDS: Z GUARD REMEDY PASTE 57 GM TUBE TOP SCH ×2 (08:10→21:45)
[2019-10-22] MEDS: IPRATROPIUM BROMIDE 0.5 MG/2.5 ML NEBU NEB SCH ×4 (08:12→19:05)
[2019-10-22] MEDS: ALBUTEROL SULFATE 2.5 MG/ 0.5 ML NEBU NEB SCH ×4 (08:12→19:05)
[2019-10-22] MEDS: HYDROGEN PEROXIDE 3% 118 ML BOTTLE TOP SCH ×2 (09:02→21:14)
[2019-10-22] MEDS: JEVITY 1.2 1000 ML LIQUID GT PRN (10:37)
[2019-10-22] MEDS: MIRALAX 17 GM POWD.PACK GT SCH (21:44)
[2019-10-22 22:58] VITALS: BP 132/84
--- NOTE | 2019-10-22 23:00 | NUR ---
Pt received on HT-50 ventilator with the following settings of AC-14, Vt-700, FIO2-35%, trached with Shiley#8 XLT Distal trach, which is in the place and secure. No distress noted. Airway care done, pt responded to physical stimuli. HME changed. Resus. bag and back up trach at bedside. Vent and alarms checked and reset.
--- NOTE | 2019-10-23 00:05 | NUR ---
Change GT site care to wash with soap and water and cover with dry dressing daily.
[2019-10-23] MEDS: OMEPRAZOLE 20 MG CAPSULE.DR GT SCH ×2 (06:37→20:08)
[2019-10-23] MEDS: JEVITY 1.2 1000 ML LIQUID GT PRN (07:05)
[2019-10-23] MEDS: ALBUTEROL SULFATE 2.5 MG/ 0.5 ML NEBU NEB SCH ×4 (07:15→19:07)
[2019-10-23] MEDS: IPRATROPIUM BROMIDE 0.5 MG/2.5 ML NEBU NEB SCH ×4 (07:15→19:07)
[2019-10-23 07:37] VITALS: BP 94/61
[2019-10-23] MEDS: PHENYTOIN 100 MG/4 ML UDC GT SCH ×2 (08:55→20:07)
[2019-10-23] MEDS: CETAPHIL TOP SCH ×2 (08:55→20:08)
[2019-10-23] MEDS: CHOLECALCIFEROL 400 UNITS TABLET GT SCH ×2 (08:55→20:08)
[2019-10-23] MEDS: PHENOBARBITAL 30 MG/7.5 ML LIQUID UDC GT SCH ×2 (08:55→20:07)
[2019-10-23] MEDS: PROTEIN SUPPLEMENT (PROSTAT) 30 ML LIQUID GT SCH ×2 (08:55→20:08)
[2019-10-23] MEDS: Z GUARD REMEDY PASTE 57 GM TUBE TOP SCH ×2 (08:56→20:08)
[2019-10-23] MEDS: VITAMINS A AND D OINT TP SCH ×3 (08:56→20:08)
[2019-10-23] MEDS: HYDROGEN PEROXIDE 3% 118 ML BOTTLE TOP SCH ×2 (11:09→21:04)
--- NOTE | 2019-10-23 19:15 | NUR ---
PT REMAIN ON CONTINUOUS VENT, TRACH CARE DONE. ODELL CHANGED . TRACH IN PLACED AND SECURED WITH TRACH TIE. BACK UP TRACH AND AMBU BAG AT BEDSIDE. IN LINE TX GIVEN WITH UD ALBUTEROL + UD ATROVENT ORDERED. SUCTION PRN. VENT CHECKED, ALARMS WORKING WELL AND AUDIBLE. NO DISTRESS NOTED AT THIS TIME. WILL CONTINUE TO MONITOR.
[2019-10-23] MEDS: MIRALAX 17 GM POWD.PACK GT SCH (20:07)
[2019-10-23 22:31] VITALS: BP 115/70
[2019-10-24] MEDS: OMEPRAZOLE 20 MG CAPSULE.DR GT SCH ×2 (06:05→20:43)
[2019-10-24] MEDS: JEVITY 1.2 1000 ML LIQUID GT PRN (06:05)
[2019-10-24] MEDS: ALBUTEROL SULFATE 2.5 MG/ 0.5 ML NEBU NEB SCH ×4 (07:10→19:22)
[2019-10-24] MEDS: HYDROGEN PEROXIDE 3% 118 ML BOTTLE TOP SCH ×2 (07:10→19:22)
[2019-10-24] MEDS: IPRATROPIUM BROMIDE 0.5 MG/2.5 ML NEBU NEB SCH ×4 (07:10→19:22)
[2019-10-24 07:45] VITALS: BP 140/75
[2019-10-24] MEDS: PROTEIN SUPPLEMENT (PROSTAT) 30 ML LIQUID GT SCH ×2 (08:43→20:43)
[2019-10-24] MEDS: PHENOBARBITAL 30 MG/7.5 ML LIQUID UDC GT SCH ×2 (08:43→20:43)
[2019-10-24] MEDS: VITAMINS A AND D OINT TP SCH ×3 (08:43→20:44)
[2019-10-24] MEDS: Z GUARD REMEDY PASTE 57 GM TUBE TOP SCH ×2 (08:43→20:44)
[2019-10-24] MEDS: CHOLECALCIFEROL 400 UNITS TABLET GT SCH ×2 (08:43→20:44)
[2019-10-24] MEDS: CETAPHIL TOP SCH ×2 (08:43→20:44)
[2019-10-24] MEDS: PHENYTOIN 100 MG/4 ML UDC GT SCH ×2 (08:43→20:43)
[2019-10-24] MEDS: MIRALAX 17 GM POWD.PACK GT SCH (20:43)
[2019-10-24 22:48] VITALS: BP 122/79
[2019-10-25] MEDS: JEVITY 1.2 1000 ML LIQUID GT PRN (02:13)
[2019-10-25] MEDS: OMEPRAZOLE 20 MG CAPSULE.DR GT SCH ×2 (07:05→21:50)
[2019-10-25] MEDS: IPRATROPIUM BROMIDE 0.5 MG/2.5 ML NEBU NEB SCH ×4 (07:15→19:21)
[2019-10-25] MEDS: ALBUTEROL SULFATE 2.5 MG/ 0.5 ML NEBU NEB SCH ×4 (07:15→19:21)
[2019-10-25 07:35] VITALS: BP 125/71
[2019-10-25] MEDS: CHOLECALCIFEROL 400 UNITS TABLET GT SCH ×2 (08:13→21:51)
[2019-10-25] MEDS: CETAPHIL TOP SCH ×2 (08:13→21:51)
[2019-10-25] MEDS: PHENYTOIN 100 MG/4 ML UDC GT SCH ×2 (08:13→21:50)
[2019-10-25] MEDS: Z GUARD REMEDY PASTE 57 GM TUBE TOP SCH ×2 (08:13→21:51)
[2019-10-25] MEDS: PROTEIN SUPPLEMENT (PROSTAT) 30 ML LIQUID GT SCH ×2 (08:13→21:50)
[2019-10-25] MEDS: VITAMINS A AND D OINT TP SCH ×3 (08:13→21:51)
[2019-10-25] MEDS: PHENOBARBITAL 30 MG/7.5 ML LIQUID UDC GT SCH ×2 (08:13→21:50)
[2019-10-25] MEDS: HYDROGEN PEROXIDE 3% 118 ML BOTTLE TOP SCH ×2 (09:15→21:10)
[2019-10-25 20:08] VITALS: BP 134/76
[2019-10-25] MEDS: MIRALAX 17 GM POWD.PACK GT SCH (21:50)
[2019-10-26] MEDS: JEVITY 1.2 1000 ML LIQUID GT PRN (01:58)
[2019-10-26] MEDS: OMEPRAZOLE 20 MG CAPSULE.DR GT SCH ×2 (06:12→21:18)
[2019-10-26] MEDS: HYDROGEN PEROXIDE 3% 118 ML BOTTLE TOP SCH ×2 (06:57→21:42)
[2019-10-26] MEDS: ALBUTEROL SULFATE 2.5 MG/ 0.5 ML NEBU NEB SCH ×4 (06:57→18:54)
[2019-10-26] MEDS: IPRATROPIUM BROMIDE 0.5 MG/2.5 ML NEBU NEB SCH ×4 (06:57→18:54)
[2019-10-26 07:42] VITALS: BP 114/70
[2019-10-26] MEDS: PHENYTOIN 100 MG/4 ML UDC GT SCH ×2 (08:27→21:18)
[2019-10-26] MEDS: PROTEIN SUPPLEMENT (PROSTAT) 30 ML LIQUID GT SCH ×2 (08:28→21:18)
[2019-10-26] MEDS: PHENOBARBITAL 30 MG/7.5 ML LIQUID UDC GT SCH ×2 (08:28→21:18)
[2019-10-26] MEDS: Z GUARD REMEDY PASTE 57 GM TUBE TOP SCH ×2 (08:29→21:19)
[2019-10-26] MEDS: CHOLECALCIFEROL 400 UNITS TABLET GT SCH ×2 (08:29→21:18)
[2019-10-26] MEDS: VITAMINS A AND D OINT TP SCH ×3 (08:29→21:19)
[2019-10-26] MEDS: CETAPHIL TOP SCH ×2 (08:29→21:18)
[2019-10-26 20:17] VITALS: BP 128/80
[2019-10-26] MEDS: MIRALAX 17 GM POWD.PACK GT SCH (21:18)
[2019-10-27] MEDS: JEVITY 1.2 1000 ML LIQUID GT PRN ×2 (01:50→22:52)
[2019-10-27] MEDS: OMEPRAZOLE 20 MG CAPSULE.DR GT SCH ×2 (05:45→21:59)
[2019-10-27] MEDS: IPRATROPIUM BROMIDE 0.5 MG/2.5 ML NEBU NEB SCH ×4 (07:13→19:03)
[2019-10-27] MEDS: ALBUTEROL SULFATE 2.5 MG/ 0.5 ML NEBU NEB SCH ×4 (07:13→19:03)
[2019-10-27 07:44] VITALS: BP 126/78
[2019-10-27] MEDS: PROTEIN SUPPLEMENT (PROSTAT) 30 ML LIQUID GT SCH ×2 (08:03→21:59)
[2019-10-27] MEDS: CHOLECALCIFEROL 400 UNITS TABLET GT SCH ×2 (08:04→21:59)
[2019-10-27] MEDS: VITAMINS A AND D OINT TP SCH ×3 (08:04→21:00)
[2019-10-27] MEDS: Z GUARD REMEDY PASTE 57 GM TUBE TOP SCH ×2 (08:04→21:00)
[2019-10-27] MEDS: CETAPHIL TOP SCH ×2 (08:04→21:00)
[2019-10-27] MEDS: HYDROGEN PEROXIDE 3% 118 ML BOTTLE TOP SCH ×2 (08:05→21:41)
[2019-10-27] MEDS: PHENOBARBITAL 30 MG/7.5 ML LIQUID UDC GT SCH ×2 (08:09→21:58)
[2019-10-27] MEDS: PHENYTOIN 100 MG/4 ML UDC GT SCH ×2 (08:11→21:53)
[2019-10-27 20:05] VITALS: BP 137/87
[2019-10-27] MEDS: MIRALAX 17 GM POWD.PACK GT SCH (21:58)
[2019-10-28] MEDS: OMEPRAZOLE 20 MG CAPSULE.DR GT SCH ×2 (05:42→21:20)
[2019-10-28] MEDS: ALBUTEROL SULFATE 2.5 MG/ 0.5 ML NEBU NEB SCH ×4 (07:13→18:50)
[2019-10-28] MEDS: IPRATROPIUM BROMIDE 0.5 MG/2.5 ML NEBU NEB SCH ×4 (07:13→18:50)
[2019-10-28] MEDS: HYDROGEN PEROXIDE 3% 118 ML BOTTLE TOP SCH ×2 (07:15→21:33)
[2019-10-28 07:39] VITALS: BP 140/83
[2019-10-28] MEDS: PHENOBARBITAL 30 MG/7.5 ML LIQUID UDC GT SCH ×2 (08:23→21:20)
[2019-10-28] MEDS: CHOLECALCIFEROL 400 UNITS TABLET GT SCH ×2 (08:23→21:21)
[2019-10-28] MEDS: PHENYTOIN 100 MG/4 ML UDC GT SCH ×2 (08:23→21:20)
[2019-10-28] MEDS: PROTEIN SUPPLEMENT (PROSTAT) 30 ML LIQUID GT SCH ×2 (08:23→21:21)
[2019-10-28] MEDS: CETAPHIL TOP SCH ×2 (08:24→21:21)
[2019-10-28] MEDS: Z GUARD REMEDY PASTE 57 GM TUBE TOP SCH ×2 (08:24→21:21)
[2019-10-28] MEDS: VITAMINS A AND D OINT TP SCH ×3 (08:24→21:21)
[2019-10-28] MEDS: JEVITY 1.2 1000 ML LIQUID GT PRN (18:19)
[2019-10-28 21:04] VITALS: BP 113/70
[2019-10-28] MEDS: MIRALAX 17 GM POWD.PACK GT SCH (21:20)
[2019-10-29] MEDS: OMEPRAZOLE 20 MG CAPSULE.DR GT SCH ×2 (05:34→21:12)
[2019-10-29] MEDS: IPRATROPIUM BROMIDE 0.5 MG/2.5 ML NEBU NEB SCH ×4 (07:23→19:07)
[2019-10-29] MEDS: ALBUTEROL SULFATE 2.5 MG/ 0.5 ML NEBU NEB SCH ×4 (07:23→19:07)
[2019-10-29 07:41] VITALS: BP 130/74
[2019-10-29] MEDS: HYDROGEN PEROXIDE 3% 118 ML BOTTLE TOP SCH ×2 (09:00→20:59)
[2019-10-29] MEDS: PROTEIN SUPPLEMENT (PROSTAT) 30 ML LIQUID GT SCH ×2 (09:03→21:13)
[2019-10-29] MEDS: PHENOBARBITAL 30 MG/7.5 ML LIQUID UDC GT SCH ×2 (09:03→21:12)
[2019-10-29] MEDS: CHOLECALCIFEROL 400 UNITS TABLET GT SCH ×2 (09:03→21:13)
[2019-10-29] MEDS: PHENYTOIN 100 MG/4 ML UDC GT SCH ×2 (09:03→21:12)
[2019-10-29] MEDS: CETAPHIL TOP SCH ×2 (09:04→21:13)
[2019-10-29] MEDS: Z GUARD REMEDY PASTE 57 GM TUBE TOP SCH ×2 (09:04→21:13)
[2019-10-29] MEDS: VITAMINS A AND D OINT TP SCH ×3 (09:04→21:13)
[2019-10-29] MEDS: JEVITY 1.2 1000 ML LIQUID GT PRN (15:30)
[2019-10-29] MEDS: MIRALAX 17 GM POWD.PACK GT SCH (21:12)
[2019-10-29 21:58] VITALS: BP 124/81
[2019-10-30] MEDS: OMEPRAZOLE 20 MG CAPSULE.DR GT SCH ×2 (05:50→21:16)
[2019-10-30] MEDS: ALBUTEROL SULFATE 2.5 MG/ 0.5 ML NEBU NEB SCH ×4 (07:39→19:00)
[2019-10-30] MEDS: IPRATROPIUM BROMIDE 0.5 MG/2.5 ML NEBU NEB SCH ×4 (07:39→19:00)
[2019-10-30] MEDS: HYDROGEN PEROXIDE 3% 118 ML BOTTLE TOP SCH ×2 (07:39→19:00)
[2019-10-30 08:00] VITALS: BP_SYST 112; BP_SYST 141; BP_DIAS 65; BP_DIAS 77
[2019-10-30] MEDS: PROTEIN SUPPLEMENT (PROSTAT) 30 ML LIQUID GT SCH ×2 (08:12→21:17)
[2019-10-30] MEDS: CHOLECALCIFEROL 400 UNITS TABLET GT SCH ×2 (08:12→21:17)
[2019-10-30] MEDS: PHENOBARBITAL 30 MG/7.5 ML LIQUID UDC GT SCH ×2 (08:12→21:16)
[2019-10-30] MEDS: PHENYTOIN 100 MG/4 ML UDC GT SCH ×2 (08:12→21:16)
[2019-10-30] MEDS: VITAMINS A AND D OINT TP SCH ×3 (08:13→21:18)
[2019-10-30] MEDS: Z GUARD REMEDY PASTE 57 GM TUBE TOP SCH ×2 (08:13→21:18)
[2019-10-30] MEDS: CETAPHIL TOP SCH ×2 (08:13→21:18)
[2019-10-30 20:09] VITALS: BP 135/87
[2019-10-30] MEDS: MIRALAX 17 GM POWD.PACK GT SCH (21:16)
[2019-10-31] MEDS: JEVITY 1.2 1000 ML LIQUID GT PRN (04:53)
[2019-10-31] MEDS: OMEPRAZOLE 20 MG CAPSULE.DR GT SCH ×2 (06:30→21:46)
[2019-10-31] MEDS: ALBUTEROL SULFATE 2.5 MG/ 0.5 ML NEBU NEB SCH ×4 (07:16→18:41)
[2019-10-31] MEDS: IPRATROPIUM BROMIDE 0.5 MG/2.5 ML NEBU NEB SCH ×4 (07:16→18:41)
[2019-10-31 07:41] VITALS: BP 123/75
[2019-10-31] MEDS: PROTEIN SUPPLEMENT (PROSTAT) 30 ML LIQUID GT SCH ×2 (08:46→21:46)
[2019-10-31] MEDS: VITAMINS A AND D OINT TP SCH ×3 (08:46→21:47)
[2019-10-31] MEDS: CHOLECALCIFEROL 400 UNITS TABLET GT SCH ×2 (08:46→21:46)
[2019-10-31] MEDS: PHENYTOIN 100 MG/4 ML UDC GT SCH ×2 (08:46→21:46)
[2019-10-31] MEDS: Z GUARD REMEDY PASTE 57 GM TUBE TOP SCH ×2 (08:46→21:47)
[2019-10-31] MEDS: CETAPHIL TOP SCH ×2 (08:46→21:46)
[2019-10-31] MEDS: PHENOBARBITAL 30 MG/7.5 ML LIQUID UDC GT SCH ×2 (08:46→21:46)
[2019-10-31] MEDS: HYDROGEN PEROXIDE 3% 118 ML BOTTLE TOP SCH ×2 (09:33→18:41)
--- NOTE | 2019-10-31 16:22 | NUR ---
Covid19 test done.
[2019-10-31 20:14] VITALS: BP 140/87
[2019-10-31] MEDS: MIRALAX 17 GM POWD.PACK GT SCH (21:46)
[2019-11-01] MEDS: JEVITY 1.2 1000 ML LIQUID GT PRN (04:39)
[2019-11-01] MEDS: OMEPRAZOLE 20 MG CAPSULE.DR GT SCH ×2 (06:49→21:45)
[2019-11-01 07:24] VITALS: BP 122/79
[2019-11-01] MEDS: IPRATROPIUM BROMIDE 0.5 MG/2.5 ML NEBU NEB SCH ×4 (08:00→18:45)
[2019-11-01] MEDS: ALBUTEROL SULFATE 2.5 MG/ 0.5 ML NEBU NEB SCH ×4 (08:00→18:45)
[2019-11-01] MEDS: PROTEIN SUPPLEMENT (PROSTAT) 30 ML LIQUID GT SCH ×2 (09:08→21:45)
[2019-11-01] MEDS: CETAPHIL TOP SCH ×2 (09:09→21:46)
[2019-11-01] MEDS: Z GUARD REMEDY PASTE 57 GM TUBE TOP SCH ×2 (09:09→21:46)
[2019-11-01] MEDS: VITAMINS A AND D OINT TP SCH ×3 (09:09→21:46)
[2019-11-01] MEDS: CHOLECALCIFEROL 400 UNITS TABLET GT SCH ×2 (09:11→21:45)
[2019-11-01] MEDS: PHENYTOIN 100 MG/4 ML UDC GT SCH ×2 (09:12→21:45)
[2019-11-01] MEDS: HYDROGEN PEROXIDE 3% 118 ML BOTTLE TOP SCH ×2 (09:16→21:17)
[2019-11-01] MEDS: PHENOBARBITAL 30 MG/7.5 ML LIQUID UDC GT SCH ×2 (09:21→21:45)
--- NOTE | 2019-11-01 15:23 | NUR ---
NOTIFIED RESPONSIBLE LIBERTARIAN, Rufino PINTO OF COVID-19 POSSIBLE EXPOSURE AND TESTING PLAN FOR CURRENT AND NEXT WEEK MANDATED. RESPONSIBLE LIBERTARIAN VERBALIZED GOOD UNDERSTANDING.
[2019-11-01 20:42] VITALS: BP 124/80
[2019-11-01] MEDS: MIRALAX 17 GM POWD.PACK GT SCH (21:45)
[2019-11-02] MEDS: JEVITY 1.2 1000 ML LIQUID GT PRN (03:44)
[2019-11-02] MEDS: OMEPRAZOLE 20 MG CAPSULE.DR GT SCH ×2 (06:41→21:33)
[2019-11-02] MEDS: IPRATROPIUM BROMIDE 0.5 MG/2.5 ML NEBU NEB SCH ×4 (07:10→18:46)
[2019-11-02] MEDS: ALBUTEROL SULFATE 2.5 MG/ 0.5 ML NEBU NEB SCH ×4 (07:10→18:46)
[2019-11-02 08:00] VITALS: BP 118/87
[2019-11-02] MEDS: PROTEIN SUPPLEMENT (PROSTAT) 30 ML LIQUID GT SCH ×2 (08:14→21:33)
[2019-11-02] MEDS: CHOLECALCIFEROL 400 UNITS TABLET GT SCH ×2 (08:14→21:35)
[2019-11-02] MEDS: PHENOBARBITAL 30 MG/7.5 ML LIQUID UDC GT SCH ×2 (08:14→21:32)
[2019-11-02] MEDS: PHENYTOIN 100 MG/4 ML UDC GT SCH ×2 (08:14→21:31)
[2019-11-02] MEDS: VITAMINS A AND D OINT TP SCH ×3 (08:17→21:35)
[2019-11-02] MEDS: CETAPHIL TOP SCH ×2 (08:17→21:35)
[2019-11-02] MEDS: Z GUARD REMEDY PASTE 57 GM TUBE TOP SCH ×2 (08:17→21:35)
[2019-11-02] MEDS: HYDROGEN PEROXIDE 3% 118 ML BOTTLE TOP SCH ×2 (09:34→21:42)
[2019-11-02 20:22] VITALS: BP 130/83
[2019-11-02] MEDS: MIRALAX 17 GM POWD.PACK GT SCH (21:32)
[2019-11-03] MEDS: JEVITY 1.2 1000 ML LIQUID GT PRN (03:36)
[2019-11-03] MEDS: OMEPRAZOLE 20 MG CAPSULE.DR GT SCH ×2 (05:56→21:39)
[2019-11-03] MEDS: IPRATROPIUM BROMIDE 0.5 MG/2.5 ML NEBU NEB SCH ×4 (07:18→18:45)
[2019-11-03] MEDS: ALBUTEROL SULFATE 2.5 MG/ 0.5 ML NEBU NEB SCH ×4 (07:18→18:45)
[2019-11-03 07:40] VITALS: BP 124/87
[2019-11-03] MEDS: PHENOBARBITAL 30 MG/7.5 ML LIQUID UDC GT SCH ×2 (09:13→21:39)
[2019-11-03] MEDS: PHENYTOIN 100 MG/4 ML UDC GT SCH ×2 (09:13→21:36)
[2019-11-03] MEDS: CETAPHIL TOP SCH ×2 (09:15→21:40)
[2019-11-03] MEDS: PROTEIN SUPPLEMENT (PROSTAT) 30 ML LIQUID GT SCH ×2 (09:15→21:40)
[2019-11-03] MEDS: VITAMINS A AND D OINT TP SCH ×3 (09:15→21:40)
[2019-11-03] MEDS: CHOLECALCIFEROL 400 UNITS TABLET GT SCH ×2 (09:15→21:40)
[2019-11-03] MEDS: Z GUARD REMEDY PASTE 57 GM TUBE TOP SCH ×2 (09:15→21:40)
[2019-11-03] MEDS: HYDROGEN PEROXIDE 3% 118 ML BOTTLE TOP SCH ×2 (09:18→18:45)
[2019-11-03 20:00] VITALS: BP 119/87
[2019-11-03] MEDS: MIRALAX 17 GM POWD.PACK GT SCH (21:37)
[2019-11-04] MEDS: JEVITY 1.2 1000 ML LIQUID GT PRN (01:18)
[2019-11-04] MEDS: OMEPRAZOLE 20 MG CAPSULE.DR GT SCH ×2 (05:32→21:58)
[2019-11-04] MEDS: ALBUTEROL SULFATE 2.5 MG/ 0.5 ML NEBU NEB SCH ×4 (07:25→18:40)
[2019-11-04] MEDS: IPRATROPIUM BROMIDE 0.5 MG/2.5 ML NEBU NEB SCH ×4 (07:25→18:40)
[2019-11-04 07:43] VITALS: BP 132/81
[2019-11-04] MEDS: HYDROGEN PEROXIDE 3% 118 ML BOTTLE TOP SCH ×2 (08:50→18:40)
[2019-11-04] MEDS: PHENOBARBITAL 30 MG/7.5 ML LIQUID UDC GT SCH ×2 (08:55→21:58)
[2019-11-04] MEDS: PROTEIN SUPPLEMENT (PROSTAT) 30 ML LIQUID GT SCH ×2 (08:55→21:58)
[2019-11-04] MEDS: PHENYTOIN 100 MG/4 ML UDC GT SCH ×2 (08:55→21:58)
[2019-11-04] MEDS: CHOLECALCIFEROL 400 UNITS TABLET GT SCH ×2 (08:56→21:58)
[2019-11-04] MEDS: VITAMINS A AND D OINT TP SCH ×3 (08:57→21:59)
[2019-11-04] MEDS: CETAPHIL TOP SCH ×2 (08:57→21:58)
[2019-11-04] MEDS: Z GUARD REMEDY PASTE 57 GM TUBE TOP SCH ×2 (08:57→21:59)
[2019-11-04 20:00] VITALS: BP 118/74
[2019-11-04] MEDS: MIRALAX 17 GM POWD.PACK GT SCH (21:58)
[2019-11-05] MEDS: JEVITY 1.2 1000 ML LIQUID GT PRN ×2 (03:31→22:38)
[2019-11-05] MEDS: OMEPRAZOLE 20 MG CAPSULE.DR GT SCH ×2 (06:04→20:38)
[2019-11-05] MEDS: IPRATROPIUM BROMIDE 0.5 MG/2.5 ML NEBU NEB SCH ×4 (07:26→19:10)
[2019-11-05] MEDS: ALBUTEROL SULFATE 2.5 MG/ 0.5 ML NEBU NEB SCH ×4 (07:26→19:10)
[2019-11-05 07:27] VITALS: BP 125/80
[2019-11-05] MEDS: PHENYTOIN 100 MG/4 ML UDC GT SCH ×2 (08:20→20:38)
[2019-11-05] MEDS: PHENOBARBITAL 30 MG/7.5 ML LIQUID UDC GT SCH ×2 (08:21→20:38)
[2019-11-05] MEDS: PROTEIN SUPPLEMENT (PROSTAT) 30 ML LIQUID GT SCH ×2 (08:24→20:38)
[2019-11-05] MEDS: CHOLECALCIFEROL 400 UNITS TABLET GT SCH ×2 (08:25→20:38)
[2019-11-05] MEDS: HYDROGEN PEROXIDE 3% 118 ML BOTTLE TOP SCH ×2 (08:50→21:12)
[2019-11-05] MEDS: CETAPHIL TOP SCH ×2 (09:00→20:38)
[2019-11-05] MEDS: Z GUARD REMEDY PASTE 57 GM TUBE TOP SCH ×2 (09:00→20:38)
[2019-11-05] MEDS: VITAMINS A AND D OINT TP SCH ×3 (09:00→20:38)
[2019-11-05 20:00] VITALS: BP 132/86
[2019-11-05] MEDS: MIRALAX 17 GM POWD.PACK GT SCH (20:38)
[2019-11-06] MEDS: OMEPRAZOLE 20 MG CAPSULE.DR GT SCH ×2 (05:34→20:54)
[2019-11-06 07:39] VITALS: BP 151/100
[2019-11-06] MEDS: ALBUTEROL SULFATE 2.5 MG/ 0.5 ML NEBU NEB SCH ×4 (08:00→18:45)
[2019-11-06] MEDS: IPRATROPIUM BROMIDE 0.5 MG/2.5 ML NEBU NEB SCH ×4 (08:00→18:44)
[2019-11-06] MEDS: HYDROGEN PEROXIDE 3% 118 ML BOTTLE TOP SCH ×2 (08:38→21:40)
[2019-11-06] MEDS: PHENYTOIN 100 MG/4 ML UDC GT SCH ×2 (08:46→20:54)
[2019-11-06] MEDS: PHENOBARBITAL 30 MG/7.5 ML LIQUID UDC GT SCH ×2 (08:46→20:54)
[2019-11-06] MEDS: CHOLECALCIFEROL 400 UNITS TABLET GT SCH ×2 (08:47→20:54)
[2019-11-06] MEDS: CETAPHIL TOP SCH ×2 (08:47→20:54)
[2019-11-06] MEDS: PROTEIN SUPPLEMENT (PROSTAT) 30 ML LIQUID GT SCH ×2 (08:47→20:54)
[2019-11-06] MEDS: Z GUARD REMEDY PASTE 57 GM TUBE TOP SCH ×2 (08:48→20:54)
[2019-11-06] MEDS: VITAMINS A AND D OINT TP SCH ×3 (08:48→20:54)
[2019-11-06 20:14] VITALS: BP 129/74
[2019-11-06] MEDS: MIRALAX 17 GM POWD.PACK GT SCH (20:54)
[2019-11-07] MEDS: OMEPRAZOLE 20 MG CAPSULE.DR GT SCH ×2 (05:33→20:52)
[2019-11-07] MEDS: IPRATROPIUM BROMIDE 0.5 MG/2.5 ML NEBU NEB SCH ×4 (07:29→18:45)
[2019-11-07] MEDS: ALBUTEROL SULFATE 2.5 MG/ 0.5 ML NEBU NEB SCH ×4 (07:29→18:45)
[2019-11-07] MEDS: HYDROGEN PEROXIDE 3% 118 ML BOTTLE TOP SCH ×2 (07:29→20:28)
[2019-11-07 07:39] VITALS: BP 138/82
[2019-11-07] MEDS: PHENOBARBITAL 30 MG/7.5 ML LIQUID UDC GT SCH ×2 (08:20→20:52)
[2019-11-07] MEDS: PHENYTOIN 100 MG/4 ML UDC GT SCH ×2 (08:20→20:52)
[2019-11-07] MEDS: CETAPHIL TOP SCH ×2 (08:21→20:52)
[2019-11-07] MEDS: CHOLECALCIFEROL 400 UNITS TABLET GT SCH ×2 (08:21→20:52)
[2019-11-07] MEDS: Z GUARD REMEDY PASTE 57 GM TUBE TOP SCH ×2 (08:21→20:52)
[2019-11-07] MEDS: PROTEIN SUPPLEMENT (PROSTAT) 30 ML LIQUID GT SCH ×2 (08:21→20:52)
[2019-11-07] MEDS: VITAMINS A AND D OINT TP SCH ×3 (08:21→20:52)
[2019-11-07 20:12] VITALS: BP 121/82
[2019-11-07] MEDS: MIRALAX 17 GM POWD.PACK GT SCH (20:52)
[2019-11-08] MEDS: OMEPRAZOLE 20 MG CAPSULE.DR GT SCH ×2 (05:42→21:55)
[2019-11-08] MEDS: IPRATROPIUM BROMIDE 0.5 MG/2.5 ML NEBU NEB SCH ×4 (07:29→19:17)
[2019-11-08] MEDS: ALBUTEROL SULFATE 2.5 MG/ 0.5 ML NEBU NEB SCH ×4 (07:29→19:17)
[2019-11-08 07:51] VITALS: BP 136/70
[2019-11-08] MEDS: PHENYTOIN 100 MG/4 ML UDC GT SCH ×2 (08:31→21:52)
[2019-11-08] MEDS: Z GUARD REMEDY PASTE 57 GM TUBE TOP SCH ×2 (08:32→21:55)
[2019-11-08] MEDS: CETAPHIL TOP SCH ×2 (08:32→21:55)
[2019-11-08] MEDS: CHOLECALCIFEROL 400 UNITS TABLET GT SCH ×2 (08:32→21:55)
[2019-11-08] MEDS: VITAMINS A AND D OINT TP SCH ×3 (08:32→21:55)
[2019-11-08] MEDS: PROTEIN SUPPLEMENT (PROSTAT) 30 ML LIQUID GT SCH ×2 (08:32→21:55)
[2019-11-08] MEDS: PHENOBARBITAL 30 MG/7.5 ML LIQUID UDC GT SCH ×2 (08:37→21:53)
[2019-11-08] MEDS: HYDROGEN PEROXIDE 3% 118 ML BOTTLE TOP SCH ×2 (08:50→19:17)
--- NOTE | 2019-11-08 15:30 | NUR ---
NEW ORDER CARRIED OUT FOR COVID 19 TEST.
--- NOTE | 2019-11-08 16:34 | NUR ---
Patient relative notified for covid test today.
[2019-11-08 19:49] VITALS: BP 125/78
[2019-11-08] MEDS: MIRALAX 17 GM POWD.PACK GT SCH (21:53)
[2019-11-09] MEDS: JEVITY 1.2 1000 ML LIQUID GT PRN (03:20)
[2019-11-09] MEDS: OMEPRAZOLE 20 MG CAPSULE.DR GT SCH ×2 (05:48→21:54)
[2019-11-09] MEDS: IPRATROPIUM BROMIDE 0.5 MG/2.5 ML NEBU NEB SCH ×4 (07:12→19:06)
[2019-11-09] MEDS: ALBUTEROL SULFATE 2.5 MG/ 0.5 ML NEBU NEB SCH ×4 (07:12→19:06)
[2019-11-09 07:27] VITALS: BP 119/65
[2019-11-09] MEDS: PHENYTOIN 100 MG/4 ML UDC GT SCH ×2 (08:09→21:52)
[2019-11-09] MEDS: PHENOBARBITAL 30 MG/7.5 ML LIQUID UDC GT SCH ×2 (08:16→21:54)
[2019-11-09] MEDS: PROTEIN SUPPLEMENT (PROSTAT) 30 ML LIQUID GT SCH ×2 (08:16→21:54)
[2019-11-09] MEDS: CHOLECALCIFEROL 400 UNITS TABLET GT SCH ×2 (08:16→21:55)
[2019-11-09] MEDS: CETAPHIL TOP SCH ×2 (08:17→21:55)
[2019-11-09] MEDS: VITAMINS A AND D OINT TP SCH ×3 (08:17→21:55)
[2019-11-09] MEDS: Z GUARD REMEDY PASTE 57 GM TUBE TOP SCH ×2 (08:17→21:55)
[2019-11-09] MEDS: HYDROGEN PEROXIDE 3% 118 ML BOTTLE TOP SCH ×2 (09:33→20:40)
--- NOTE | 2019-11-09 15:17 | NUR ---
INTERDISCIPLINARY PLAN OF CARE CONFERENCE was held today. Patient's parents were not able to participate in the meeting, however they are in contact with nursing staff on a regular basis and involved in patient's care. Dr. Hammond and the Interdisciplinary Team reviewed the current plan of care in detail. RN reported on patient's medical condition. See RN IDT conference notes. No major changes in medical condition were reported by nursing or by other disciplines. See all other disciplines IDT notes and physician's progress notes for additional details.
[2019-11-09 20:26] VITALS: BP 127/79
[2019-11-09] MEDS: MIRALAX 17 GM POWD.PACK GT SCH (21:54)
[2019-11-10] MEDS: JEVITY 1.2 1000 ML LIQUID GT PRN (03:27)
[2019-11-10] MEDS: OMEPRAZOLE 20 MG CAPSULE.DR GT SCH ×2 (06:10→21:00)
[2019-11-10 07:30] VITALS: BP 136/76
[2019-11-10] MEDS: IPRATROPIUM BROMIDE 0.5 MG/2.5 ML NEBU NEB SCH ×4 (07:40→18:46)
[2019-11-10] MEDS: ALBUTEROL SULFATE 2.5 MG/ 0.5 ML NEBU NEB SCH ×4 (07:40→18:46)
[2019-11-10] MEDS: Z GUARD REMEDY PASTE 57 GM TUBE TOP SCH ×2 (08:18→21:00)
[2019-11-10] MEDS: VITAMINS A AND D OINT TP SCH ×3 (08:18→21:00)
[2019-11-10] MEDS: PHENYTOIN 100 MG/4 ML UDC GT SCH ×2 (08:18→21:00)
[2019-11-10] MEDS: CHOLECALCIFEROL 400 UNITS TABLET GT SCH ×2 (08:18→21:00)
[2019-11-10] MEDS: PHENOBARBITAL 30 MG/7.5 ML LIQUID UDC GT SCH ×2 (08:18→21:00)
[2019-11-10] MEDS: PROTEIN SUPPLEMENT (PROSTAT) 30 ML LIQUID GT SCH ×2 (08:18→21:00)
[2019-11-10] MEDS: CETAPHIL TOP SCH ×2 (08:18→21:00)
[2019-11-10] MEDS: HYDROGEN PEROXIDE 3% 118 ML BOTTLE TOP SCH ×2 (11:15→21:27)
--- NOTE | 2019-11-10 17:43 | NUR ---
Pt's mother was informed result for covid19 test was negative.regarding the labs ,she doesn't want anybody to withdraw blood from his son,until she is able to visit him again.
[2019-11-10 20:06] VITALS: BP 142/78
[2019-11-10] MEDS: MIRALAX 17 GM POWD.PACK GT SCH (21:00)
[2019-11-11] MEDS: JEVITY 1.2 1000 ML LIQUID GT PRN (04:02)
[2019-11-11] MEDS: OMEPRAZOLE 20 MG CAPSULE.DR GT SCH ×2 (06:11→21:39)
[2019-11-11] MEDS: IPRATROPIUM BROMIDE 0.5 MG/2.5 ML NEBU NEB SCH ×4 (07:24→18:55)
[2019-11-11] MEDS: ALBUTEROL SULFATE 2.5 MG/ 0.5 ML NEBU NEB SCH ×4 (07:24→18:55)
[2019-11-11] MEDS: HYDROGEN PEROXIDE 3% 118 ML BOTTLE TOP SCH ×2 (07:24→20:39)
[2019-11-11 07:44] VITALS: BP 123/80
[2019-11-11] MEDS: PHENYTOIN 100 MG/4 ML UDC GT SCH ×2 (08:05→21:38)
[2019-11-11] MEDS: CHOLECALCIFEROL 400 UNITS TABLET GT SCH ×2 (08:05→21:39)
[2019-11-11] MEDS: PROTEIN SUPPLEMENT (PROSTAT) 30 ML LIQUID GT SCH ×2 (08:05→21:39)
[2019-11-11] MEDS: PHENOBARBITAL 30 MG/7.5 ML LIQUID UDC GT SCH ×2 (08:05→21:38)
[2019-11-11] MEDS: Z GUARD REMEDY PASTE 57 GM TUBE TOP SCH ×2 (08:06→21:40)
[2019-11-11] MEDS: CETAPHIL TOP SCH ×2 (08:06→21:40)
[2019-11-11] MEDS: VITAMINS A AND D OINT TP SCH ×3 (08:06→21:40)
[2019-11-11 20:13] VITALS: BP 122/78
[2019-11-11] MEDS: MIRALAX 17 GM POWD.PACK GT SCH (21:38)
[2019-11-12] MEDS: OMEPRAZOLE 20 MG CAPSULE.DR GT SCH ×2 (05:55→21:48)
[2019-11-12] MEDS: IPRATROPIUM BROMIDE 0.5 MG/2.5 ML NEBU NEB SCH ×4 (07:38→19:05)
[2019-11-12] MEDS: HYDROGEN PEROXIDE 3% 118 ML BOTTLE TOP SCH ×2 (07:38→20:40)
[2019-11-12] MEDS: ALBUTEROL SULFATE 2.5 MG/ 0.5 ML NEBU NEB SCH ×4 (07:38→19:05)
[2019-11-12 07:57] VITALS: BP 95/65
[2019-11-12] MEDS: CETAPHIL TOP SCH ×2 (08:19→21:48)
[2019-11-12] MEDS: Z GUARD REMEDY PASTE 57 GM TUBE TOP SCH ×2 (08:19→21:48)
[2019-11-12] MEDS: PHENYTOIN 100 MG/4 ML UDC GT SCH ×2 (08:19→21:48)
[2019-11-12] MEDS: CHOLECALCIFEROL 400 UNITS TABLET GT SCH ×2 (08:19→21:48)
[2019-11-12] MEDS: PROTEIN SUPPLEMENT (PROSTAT) 30 ML LIQUID GT SCH ×2 (08:19→21:48)
[2019-11-12] MEDS: VITAMINS A AND D OINT TP SCH ×3 (08:19→21:48)
[2019-11-12] MEDS: PHENOBARBITAL 30 MG/7.5 ML LIQUID UDC GT SCH ×2 (08:19→21:48)
[2019-11-12 20:14] VITALS: BP 130/78
[2019-11-12] MEDS: MIRALAX 17 GM POWD.PACK GT SCH (21:48)
[2019-11-13] MEDS: JEVITY 1.2 1000 ML LIQUID GT PRN (04:09)
[2019-11-13] MEDS: OMEPRAZOLE 20 MG CAPSULE.DR GT SCH ×2 (06:04→21:02)
[2019-11-13] MEDS: ALBUTEROL SULFATE 2.5 MG/ 0.5 ML NEBU NEB SCH ×4 (07:10→19:07)
[2019-11-13] MEDS: IPRATROPIUM BROMIDE 0.5 MG/2.5 ML NEBU NEB SCH ×4 (07:10→19:07)
[2019-11-13 08:04] VITALS: BP 123/84
[2019-11-13] MEDS: PHENOBARBITAL 30 MG/7.5 ML LIQUID UDC GT SCH ×2 (08:05→21:07)
[2019-11-13] MEDS: PHENYTOIN 100 MG/4 ML UDC GT SCH ×2 (08:05→21:02)
[2019-11-13] MEDS: PROTEIN SUPPLEMENT (PROSTAT) 30 ML LIQUID GT SCH ×2 (08:07→21:03)
[2019-11-13] MEDS: CHOLECALCIFEROL 400 UNITS TABLET GT SCH ×2 (08:07→21:03)
[2019-11-13] MEDS: CETAPHIL TOP SCH ×2 (08:07→21:03)
[2019-11-13] MEDS: Z GUARD REMEDY PASTE 57 GM TUBE TOP SCH ×2 (08:08→21:03)
[2019-11-13] MEDS: VITAMINS A AND D OINT TP SCH ×3 (08:08→21:03)
[2019-11-13] MEDS: HYDROGEN PEROXIDE 3% 118 ML BOTTLE TOP SCH ×2 (09:00→21:02)
[2019-11-13 20:00] VITALS: BP 127/72
[2019-11-13] MEDS: MIRALAX 17 GM POWD.PACK GT SCH (21:02)
[2019-11-14] MEDS: JEVITY 1.2 1000 ML LIQUID GT PRN (01:30)
[2019-11-14] MEDS: OMEPRAZOLE 20 MG CAPSULE.DR GT SCH ×2 (06:31→21:36)
[2019-11-14] MEDS: ALBUTEROL SULFATE 2.5 MG/ 0.5 ML NEBU NEB SCH ×4 (07:10→19:15)
[2019-11-14] MEDS: IPRATROPIUM BROMIDE 0.5 MG/2.5 ML NEBU NEB SCH ×4 (07:10→19:15)
[2019-11-14 07:57] VITALS: BP 130/72
[2019-11-14] MEDS: PHENYTOIN 100 MG/4 ML UDC GT SCH ×2 (08:24→21:34)
[2019-11-14] MEDS: Z GUARD REMEDY PASTE 57 GM TUBE TOP SCH ×2 (08:26→21:37)
[2019-11-14] MEDS: CETAPHIL TOP SCH ×2 (08:26→21:37)
[2019-11-14] MEDS: CHOLECALCIFEROL 400 UNITS TABLET GT SCH ×2 (08:26→21:36)
[2019-11-14] MEDS: PROTEIN SUPPLEMENT (PROSTAT) 30 ML LIQUID GT SCH ×2 (08:26→21:36)
[2019-11-14] MEDS: PHENOBARBITAL 30 MG/7.5 ML LIQUID UDC GT SCH ×2 (08:26→21:36)
[2019-11-14] MEDS: VITAMINS A AND D OINT TP SCH ×3 (08:27→21:37)
[2019-11-14] MEDS: HYDROGEN PEROXIDE 3% 118 ML BOTTLE TOP SCH ×2 (09:21→21:00)
[2019-11-14 20:47] VITALS: BP 115/74
[2019-11-14] MEDS: MIRALAX 17 GM POWD.PACK GT SCH (21:34)
[2019-11-15] MEDS: JEVITY 1.2 1000 ML LIQUID GT PRN (01:30)
[2019-11-15] MEDS: OMEPRAZOLE 20 MG CAPSULE.DR GT SCH ×2 (06:06→21:34)
[2019-11-15] MEDS: IPRATROPIUM BROMIDE 0.5 MG/2.5 ML NEBU NEB SCH ×4 (07:15→18:50)
[2019-11-15] MEDS: ALBUTEROL SULFATE 2.5 MG/ 0.5 ML NEBU NEB SCH ×4 (07:15→18:50)
[2019-11-15 07:49] VITALS: BP 149/84
[2019-11-15] MEDS: PHENYTOIN 100 MG/4 ML UDC GT SCH ×2 (08:22→21:24)
[2019-11-15] MEDS: PROTEIN SUPPLEMENT (PROSTAT) 30 ML LIQUID GT SCH ×2 (08:23→21:36)
[2019-11-15] MEDS: CHOLECALCIFEROL 400 UNITS TABLET GT SCH ×2 (08:23→21:36)
[2019-11-15] MEDS: PHENOBARBITAL 30 MG/7.5 ML LIQUID UDC GT SCH ×2 (08:23→21:34)
[2019-11-15] MEDS: CETAPHIL TOP SCH ×2 (08:24→21:36)
[2019-11-15] MEDS: VITAMINS A AND D OINT TP SCH ×3 (08:24→21:36)
[2019-11-15] MEDS: Z GUARD REMEDY PASTE 57 GM TUBE TOP SCH ×2 (08:24→21:36)
[2019-11-15] MEDS: HYDROGEN PEROXIDE 3% 118 ML BOTTLE TOP SCH ×2 (09:34→20:36)
[2019-11-15 20:27] VITALS: BP 139/60
[2019-11-15] MEDS: MIRALAX 17 GM POWD.PACK GT SCH (21:24)
[2019-11-16] MEDS: JEVITY 1.2 1000 ML LIQUID GT PRN (00:30)
[2019-11-16] MEDS: OMEPRAZOLE 20 MG CAPSULE.DR GT SCH ×2 (05:58→21:37)
[2019-11-16] MEDS: ALBUTEROL SULFATE 2.5 MG/ 0.5 ML NEBU NEB SCH ×4 (07:16→18:45)
[2019-11-16] MEDS: IPRATROPIUM BROMIDE 0.5 MG/2.5 ML NEBU NEB SCH ×4 (07:16→18:45)
[2019-11-16] MEDS: HYDROGEN PEROXIDE 3% 118 ML BOTTLE TOP SCH ×2 (07:24→21:11)
[2019-11-16 07:29] VITALS: BP 151/90
[2019-11-16] MEDS: PHENYTOIN 100 MG/4 ML UDC GT SCH ×2 (08:33→21:35)
[2019-11-16] MEDS: PHENOBARBITAL 30 MG/7.5 ML LIQUID UDC GT SCH ×2 (08:34→21:37)
[2019-11-16] MEDS: CHOLECALCIFEROL 400 UNITS TABLET GT SCH ×2 (08:35→21:38)
[2019-11-16] MEDS: PROTEIN SUPPLEMENT (PROSTAT) 30 ML LIQUID GT SCH ×2 (08:35→21:37)
[2019-11-16] MEDS: CETAPHIL TOP SCH ×2 (09:00→21:38)
[2019-11-16] MEDS: Z GUARD REMEDY PASTE 57 GM TUBE TOP SCH ×2 (09:00→21:38)
[2019-11-16] MEDS: VITAMINS A AND D OINT TP SCH ×3 (09:00→21:38)
--- NOTE | 2019-11-16 16:16 | NUR ---
Patient's mother Bj notified for covid [address] [facility] requirement.
[2019-11-16 20:12] VITALS: BP 146/76
[2019-11-16] MEDS: MIRALAX 17 GM POWD.PACK GT SCH (21:36)
[2019-11-17] MEDS: JEVITY 1.2 1000 ML LIQUID GT PRN ×2 (00:20→18:36)
[2019-11-17] MEDS: OMEPRAZOLE 20 MG CAPSULE.DR GT SCH ×2 (06:07→21:50)
[2019-11-17] MEDS: IPRATROPIUM BROMIDE 0.5 MG/2.5 ML NEBU NEB SCH ×4 (07:24→19:39)
[2019-11-17] MEDS: ALBUTEROL SULFATE 2.5 MG/ 0.5 ML NEBU NEB SCH ×4 (07:24→19:39)
[2019-11-17 07:48] VITALS: BP 124/63
[2019-11-17] MEDS: HYDROGEN PEROXIDE 3% 118 ML BOTTLE TOP SCH ×2 (08:16→20:31)
[2019-11-17] MEDS: PHENYTOIN 100 MG/4 ML UDC GT SCH ×2 (08:47→21:50)
[2019-11-17] MEDS: PHENOBARBITAL 30 MG/7.5 ML LIQUID UDC GT SCH ×2 (08:48→21:50)
[2019-11-17] MEDS: PROTEIN SUPPLEMENT (PROSTAT) 30 ML LIQUID GT SCH ×2 (08:49→21:50)
[2019-11-17] MEDS: CHOLECALCIFEROL 400 UNITS TABLET GT SCH ×2 (08:49→21:51)
[2019-11-17] MEDS: Z GUARD REMEDY PASTE 57 GM TUBE TOP SCH ×2 (08:50→21:56)
[2019-11-17] MEDS: VITAMINS A AND D OINT TP SCH ×3 (08:50→21:56)
[2019-11-17] MEDS: CETAPHIL TOP SCH ×2 (08:50→21:56)
[2019-11-17 20:00] VITALS: BP 139/84
--- NOTE | 2019-11-17 20:00 | NUR ---
Patient's mother Bj notified covid 19 test negative results.
[2019-11-17] MEDS: MIRALAX 17 GM POWD.PACK GT SCH (21:50)
[2019-11-18] MEDS: OMEPRAZOLE 20 MG CAPSULE.DR GT SCH ×2 (06:20→21:30)
[2019-11-18] MEDS: IPRATROPIUM BROMIDE 0.5 MG/2.5 ML NEBU NEB SCH ×4 (07:02→19:23)
[2019-11-18] MEDS: ALBUTEROL SULFATE 2.5 MG/ 0.5 ML NEBU NEB SCH ×4 (07:02→19:23)
[2019-11-18] MEDS: HYDROGEN PEROXIDE 3% 118 ML BOTTLE TOP SCH ×2 (07:03→20:26)
[2019-11-18 07:43] VITALS: BP 137/88
[2019-11-18] MEDS: VITAMINS A AND D OINT TP SCH ×3 (08:39→21:31)
[2019-11-18] MEDS: CHOLECALCIFEROL 400 UNITS TABLET GT SCH ×2 (08:39→21:31)
[2019-11-18] MEDS: PHENYTOIN 100 MG/4 ML UDC GT SCH ×2 (08:39→21:30)
[2019-11-18] MEDS: PHENOBARBITAL 30 MG/7.5 ML LIQUID UDC GT SCH ×2 (08:39→21:30)
[2019-11-18] MEDS: Z GUARD REMEDY PASTE 57 GM TUBE TOP SCH ×2 (08:39→21:31)
[2019-11-18] MEDS: CETAPHIL TOP SCH ×2 (08:39→21:31)
[2019-11-18] MEDS: PROTEIN SUPPLEMENT (PROSTAT) 30 ML LIQUID GT SCH ×2 (08:39→21:31)
--- NOTE | 2019-11-18 17:02 | NUR ---
PER RT EARL TRACH WAS CHANGED TODAY (MONTHLY) WITH SCANT LOCAL BLEEDING.
[2019-11-18 20:00] VITALS: BP 128/76
[2019-11-18] MEDS: MIRALAX 17 GM POWD.PACK GT SCH (21:30)
[2019-11-19] MEDS: OMEPRAZOLE 20 MG CAPSULE.DR GT SCH ×2 (05:59→21:43)
[2019-11-19] MEDS: ALBUTEROL SULFATE 2.5 MG/ 0.5 ML NEBU NEB SCH ×4 (07:08→18:56)
[2019-11-19] MEDS: IPRATROPIUM BROMIDE 0.5 MG/2.5 ML NEBU NEB SCH ×4 (07:08→18:56)
[2019-11-19] MEDS: HYDROGEN PEROXIDE 3% 118 ML BOTTLE TOP SCH ×2 (07:08→20:49)
[2019-11-19 07:38] VITALS: BP 137/85
[2019-11-19] MEDS: PHENYTOIN 100 MG/4 ML UDC GT SCH ×2 (08:42→21:43)
[2019-11-19] MEDS: PHENOBARBITAL 30 MG/7.5 ML LIQUID UDC GT SCH ×2 (08:43→21:43)
[2019-11-19] MEDS: PROTEIN SUPPLEMENT (PROSTAT) 30 ML LIQUID GT SCH ×2 (08:44→21:44)
[2019-11-19] MEDS: CHOLECALCIFEROL 400 UNITS TABLET GT SCH ×2 (08:44→21:44)
[2019-11-19] MEDS: VITAMINS A AND D OINT TP SCH ×3 (08:45→21:44)
[2019-11-19] MEDS: Z GUARD REMEDY PASTE 57 GM TUBE TOP SCH ×2 (08:45→21:44)
[2019-11-19] MEDS: CETAPHIL TOP SCH ×2 (08:45→21:44)
[2019-11-19 20:00] VITALS: BP 126/84
[2019-11-19] MEDS: MIRALAX 17 GM POWD.PACK GT SCH (21:43)
[2019-11-20] MEDS: OMEPRAZOLE 20 MG CAPSULE.DR GT SCH ×2 (05:48→21:00)
[2019-11-20] MEDS: IPRATROPIUM BROMIDE 0.5 MG/2.5 ML NEBU NEB SCH ×4 (07:15→18:46)
[2019-11-20] MEDS: HYDROGEN PEROXIDE 3% 118 ML BOTTLE TOP SCH ×2 (07:15→21:30)
[2019-11-20] MEDS: ALBUTEROL SULFATE 2.5 MG/ 0.5 ML NEBU NEB SCH ×4 (07:15→18:46)
[2019-11-20 07:59] VITALS: BP 108/61
[2019-11-20] MEDS: PHENYTOIN 100 MG/4 ML UDC GT SCH ×2 (09:26→21:00)
[2019-11-20] MEDS: PHENOBARBITAL 30 MG/7.5 ML LIQUID UDC GT SCH ×2 (09:27→21:00)
[2019-11-20] MEDS: CETAPHIL TOP SCH ×2 (09:28→21:00)
[2019-11-20] MEDS: CHOLECALCIFEROL 400 UNITS TABLET GT SCH ×2 (09:28→21:00)
[2019-11-20] MEDS: VITAMINS A AND D OINT TP SCH ×3 (09:28→21:00)
[2019-11-20] MEDS: PROTEIN SUPPLEMENT (PROSTAT) 30 ML LIQUID GT SCH ×2 (09:28→21:00)
[2019-11-20] MEDS: Z GUARD REMEDY PASTE 57 GM TUBE TOP SCH ×2 (09:28→21:00)
[2019-11-20 20:07] VITALS: BP 124/60
[2019-11-20] MEDS: MIRALAX 17 GM POWD.PACK GT SCH (21:00)
[2019-11-21] MEDS: OMEPRAZOLE 20 MG CAPSULE.DR GT SCH ×2 (06:12→20:07)
[2019-11-21] MEDS: JEVITY 1.2 1000 ML LIQUID GT PRN (06:28)
[2019-11-21] MEDS: HYDROGEN PEROXIDE 3% 118 ML BOTTLE TOP SCH ×2 (07:15→20:07)
[2019-11-21] MEDS: IPRATROPIUM BROMIDE 0.5 MG/2.5 ML NEBU NEB SCH ×4 (07:15→18:48)
[2019-11-21] MEDS: ALBUTEROL SULFATE 2.5 MG/ 0.5 ML NEBU NEB SCH ×4 (07:15→18:48)
[2019-11-21 08:00] VITALS: BP 155/88
[2019-11-21] MEDS: PHENOBARBITAL 30 MG/7.5 ML LIQUID UDC GT SCH ×2 (08:39→20:07)
[2019-11-21] MEDS: PROTEIN SUPPLEMENT (PROSTAT) 30 ML LIQUID GT SCH ×2 (08:39→20:07)
[2019-11-21] MEDS: CHOLECALCIFEROL 400 UNITS TABLET GT SCH ×2 (08:39→20:07)
[2019-11-21] MEDS: PHENYTOIN 100 MG/4 ML UDC GT SCH ×2 (08:39→20:07)
[2019-11-21] MEDS: CETAPHIL TOP SCH ×2 (08:39→20:07)
[2019-11-21] MEDS: Z GUARD REMEDY PASTE 57 GM TUBE TOP SCH ×2 (08:40→20:07)
[2019-11-21] MEDS: VITAMINS A AND D OINT TP SCH ×3 (08:40→20:08)
[2019-11-21] MEDS: MIRALAX 17 GM POWD.PACK GT SCH (20:07)
[2019-11-21 20:14] VITALS: BP 133/86
[2019-11-22] MEDS: JEVITY 1.2 1000 ML LIQUID GT PRN ×2 (00:43→21:30)
[2019-11-22] MEDS: OMEPRAZOLE 20 MG CAPSULE.DR GT SCH ×2 (05:31→21:20)
[2019-11-22 07:42] VITALS: BP 138/80
[2019-11-22] MEDS: ALBUTEROL SULFATE 2.5 MG/ 0.5 ML NEBU NEB SCH ×4 (08:17→18:41)
[2019-11-22] MEDS: IPRATROPIUM BROMIDE 0.5 MG/2.5 ML NEBU NEB SCH ×4 (08:17→18:41)
[2019-11-22] MEDS: PHENYTOIN 100 MG/4 ML UDC GT SCH ×2 (08:43→21:20)
[2019-11-22] MEDS: CHOLECALCIFEROL 400 UNITS TABLET GT SCH ×2 (08:43→21:20)
[2019-11-22] MEDS: VITAMINS A AND D OINT TP SCH ×3 (08:43→21:20)
[2019-11-22] MEDS: Z GUARD REMEDY PASTE 57 GM TUBE TOP SCH ×2 (08:43→21:20)
[2019-11-22] MEDS: PROTEIN SUPPLEMENT (PROSTAT) 30 ML LIQUID GT SCH ×2 (08:43→21:20)
[2019-11-22] MEDS: CETAPHIL TOP SCH ×2 (08:43→21:20)
[2019-11-22] MEDS: PHENOBARBITAL 30 MG/7.5 ML LIQUID UDC GT SCH ×2 (08:43→21:20)
[2019-11-22] MEDS: HYDROGEN PEROXIDE 3% 118 ML BOTTLE TOP SCH ×2 (09:00→21:24)
[2019-11-22 20:27] VITALS: BP 132/81
[2019-11-22] MEDS: MIRALAX 17 GM POWD.PACK GT SCH (21:20)
[2019-11-23] MEDS: OMEPRAZOLE 20 MG CAPSULE.DR GT SCH ×2 (05:31→20:40)
[2019-11-23] MEDS: IPRATROPIUM BROMIDE 0.5 MG/2.5 ML NEBU NEB SCH ×4 (07:22→19:05)
[2019-11-23] MEDS: ALBUTEROL SULFATE 2.5 MG/ 0.5 ML NEBU NEB SCH ×4 (07:22→19:05)
[2019-11-23 07:25] VITALS: BP 132/86
[2019-11-23] MEDS: PHENOBARBITAL 30 MG/7.5 ML LIQUID UDC GT SCH ×2 (09:00→20:40)
[2019-11-23] MEDS: PROTEIN SUPPLEMENT (PROSTAT) 30 ML LIQUID GT SCH ×2 (09:00→20:41)
[2019-11-23] MEDS: Z GUARD REMEDY PASTE 57 GM TUBE TOP SCH ×2 (09:00→20:41)
[2019-11-23] MEDS: PHENYTOIN 100 MG/4 ML UDC GT SCH ×2 (09:00→20:40)
[2019-11-23] MEDS: VITAMINS A AND D OINT TP SCH ×3 (09:00→20:41)
[2019-11-23] MEDS: CETAPHIL TOP SCH ×2 (09:00→20:41)
[2019-11-23] MEDS: CHOLECALCIFEROL 400 UNITS TABLET GT SCH ×2 (09:00→20:41)
[2019-11-23] MEDS: HYDROGEN PEROXIDE 3% 118 ML BOTTLE TOP SCH ×2 (09:41→20:57)
--- NOTE | 2019-11-23 19:10 | NUR ---
PT RECEIVED ON CONTINUOUS VENT, TRACH CARE DONE. TRACH IN PLACED AND SECURED WITH TRACH TIE. BACK UP TRACH AND AMBU BAG AT BEDSIDE. IN LINE TX GIVEN WITH UD ALBUTEROL + UD ATROVENT ORDERED. BS MILD RHONCHI. SUCTION SMALL AMOUNT THICK PALE YELLOW SECRETIONS. VENT CHECKED, ALARMS WORKING WELL AND AUDIBLE. NO DISTRESS NOTED AT THIS TIME. WILL CONTINUE TO MONITOR.
[2019-11-23] MEDS: MIRALAX 17 GM POWD.PACK GT SCH (20:40)
[2019-11-23 20:46] VITALS: BP 139/82
[2019-11-24] MEDS: OMEPRAZOLE 20 MG CAPSULE.DR GT SCH ×2 (06:01→20:07)
[2019-11-24] MEDS: JEVITY 1.2 1000 ML LIQUID GT PRN (06:02)
[2019-11-24] MEDS: HYDROGEN PEROXIDE 3% 118 ML BOTTLE TOP SCH ×2 (07:11→18:48)
[2019-11-24] MEDS: IPRATROPIUM BROMIDE 0.5 MG/2.5 ML NEBU NEB SCH ×4 (07:11→18:48)
[2019-11-24] MEDS: ALBUTEROL SULFATE 2.5 MG/ 0.5 ML NEBU NEB SCH ×4 (07:11→18:48)
[2019-11-24 07:46] VITALS: BP 122/82
[2019-11-24] MEDS: PHENYTOIN 100 MG/4 ML UDC GT SCH ×2 (08:21→20:07)
[2019-11-24] MEDS: PROTEIN SUPPLEMENT (PROSTAT) 30 ML LIQUID GT SCH ×2 (08:23→20:07)
[2019-11-24] MEDS: PHENOBARBITAL 30 MG/7.5 ML LIQUID UDC GT SCH ×2 (08:23→20:07)
[2019-11-24] MEDS: CHOLECALCIFEROL 400 UNITS TABLET GT SCH ×2 (08:23→20:07)
[2019-11-24] MEDS: Z GUARD REMEDY PASTE 57 GM TUBE TOP SCH ×2 (08:23→20:07)
[2019-11-24] MEDS: VITAMINS A AND D OINT TP SCH ×3 (09:00→20:07)
[2019-11-24] MEDS: CETAPHIL TOP SCH ×2 (09:00→20:07)
[2019-11-24] MEDS: MIRALAX 17 GM POWD.PACK GT SCH (20:07)
[2019-11-24 20:39] VITALS: BP 144/85
[2019-11-25] MEDS: OMEPRAZOLE 20 MG CAPSULE.DR GT SCH ×2 (05:30→20:30)
[2019-11-25] MEDS: IPRATROPIUM BROMIDE 0.5 MG/2.5 ML NEBU NEB SCH ×4 (07:33→18:50)
[2019-11-25] MEDS: ALBUTEROL SULFATE 2.5 MG/ 0.5 ML NEBU NEB SCH ×4 (07:33→18:50)
[2019-11-25 07:35] VITALS: BP 136/80
[2019-11-25] MEDS: HYDROGEN PEROXIDE 3% 118 ML BOTTLE TOP SCH ×2 (08:40→18:50)
[2019-11-25] MEDS: PHENYTOIN 100 MG/4 ML UDC GT SCH ×2 (08:49→20:30)
[2019-11-25] MEDS: PROTEIN SUPPLEMENT (PROSTAT) 30 ML LIQUID GT SCH ×2 (08:52→20:30)
[2019-11-25] MEDS: CHOLECALCIFEROL 400 UNITS TABLET GT SCH ×2 (08:52→20:30)
[2019-11-25] MEDS: PHENOBARBITAL 30 MG/7.5 ML LIQUID UDC GT SCH ×2 (08:52→20:30)
[2019-11-25] MEDS: CETAPHIL TOP SCH ×2 (09:00→20:30)
[2019-11-25] MEDS: Z GUARD REMEDY PASTE 57 GM TUBE TOP SCH ×2 (09:00→20:30)
[2019-11-25] MEDS: VITAMINS A AND D OINT TP SCH ×3 (09:00→20:30)
[2019-11-25] MEDS: JEVITY 1.2 1000 ML LIQUID GT PRN (16:35)
[2019-11-25 20:18] VITALS: BP 145/79
[2019-11-25] MEDS: MIRALAX 17 GM POWD.PACK GT SCH (20:30)
[2019-11-26] MEDS: OMEPRAZOLE 20 MG CAPSULE.DR GT SCH ×2 (05:32→21:05)
[2019-11-26 07:34] VITALS: BP 128/74
[2019-11-26] MEDS: IPRATROPIUM BROMIDE 0.5 MG/2.5 ML NEBU NEB SCH ×4 (08:05→19:28)
[2019-11-26] MEDS: ALBUTEROL SULFATE 2.5 MG/ 0.5 ML NEBU NEB SCH ×4 (08:05→19:28)
[2019-11-26] MEDS: PHENYTOIN 100 MG/4 ML UDC GT SCH ×2 (08:36→21:05)
[2019-11-26] MEDS: PHENOBARBITAL 30 MG/7.5 ML LIQUID UDC GT SCH ×2 (08:38→21:05)
[2019-11-26] MEDS: PROTEIN SUPPLEMENT (PROSTAT) 30 ML LIQUID GT SCH ×2 (08:38→21:05)
[2019-11-26] MEDS: CHOLECALCIFEROL 400 UNITS TABLET GT SCH ×2 (08:38→21:05)
[2019-11-26] MEDS: HYDROGEN PEROXIDE 3% 118 ML BOTTLE TOP SCH ×2 (08:50→21:09)
[2019-11-26] MEDS: Z GUARD REMEDY PASTE 57 GM TUBE TOP SCH ×2 (09:00→21:05)
[2019-11-26] MEDS: CETAPHIL TOP SCH ×2 (09:00→21:05)
[2019-11-26] MEDS: VITAMINS A AND D OINT TP SCH ×3 (09:00→21:05)
[2019-11-26 20:15] VITALS: BP 142/83
[2019-11-26] MEDS: MIRALAX 17 GM POWD.PACK GT SCH (21:05)
[2019-11-27] MEDS: OMEPRAZOLE 20 MG CAPSULE.DR GT SCH ×2 (05:33→20:58)
[2019-11-27] MEDS: IPRATROPIUM BROMIDE 0.5 MG/2.5 ML NEBU NEB SCH ×4 (07:10→18:41)
[2019-11-27] MEDS: ALBUTEROL SULFATE 2.5 MG/ 0.5 ML NEBU NEB SCH ×4 (07:10→18:41)
[2019-11-27 08:05] VITALS: BP 136/74
[2019-11-27] MEDS: PHENYTOIN 100 MG/4 ML UDC GT SCH ×2 (08:49→20:58)
[2019-11-27] MEDS: VITAMINS A AND D OINT TP SCH ×3 (08:50→20:58)
[2019-11-27] MEDS: PROTEIN SUPPLEMENT (PROSTAT) 30 ML LIQUID GT SCH ×2 (08:50→20:58)
[2019-11-27] MEDS: CETAPHIL TOP SCH ×2 (08:50→20:58)
[2019-11-27] MEDS: PHENOBARBITAL 30 MG/7.5 ML LIQUID UDC GT SCH ×2 (08:50→20:58)
[2019-11-27] MEDS: CHOLECALCIFEROL 400 UNITS TABLET GT SCH ×2 (08:50→20:58)
[2019-11-27] MEDS: Z GUARD REMEDY PASTE 57 GM TUBE TOP SCH ×2 (08:50→20:58)
[2019-11-27] MEDS: HYDROGEN PEROXIDE 3% 118 ML BOTTLE TOP SCH ×2 (09:32→20:50)
[2019-11-27] MEDS: JEVITY 1.2 1000 ML LIQUID GT PRN (16:23)
[2019-11-27 20:08] VITALS: BP 144/74
[2019-11-27] MEDS: MIRALAX 17 GM POWD.PACK GT SCH (20:58)
[2019-11-28] MEDS: OMEPRAZOLE 20 MG CAPSULE.DR GT SCH ×2 (05:41→21:14)
[2019-11-28] MEDS: IPRATROPIUM BROMIDE 0.5 MG/2.5 ML NEBU NEB SCH ×4 (07:17→18:41)
[2019-11-28] MEDS: ALBUTEROL SULFATE 2.5 MG/ 0.5 ML NEBU NEB SCH ×4 (07:18→18:41)
[2019-11-28] MEDS: HYDROGEN PEROXIDE 3% 118 ML BOTTLE TOP SCH ×2 (07:18→21:25)
[2019-11-28 07:48] VITALS: BP 136/84
[2019-11-28] MEDS: PROTEIN SUPPLEMENT (PROSTAT) 30 ML LIQUID GT SCH ×2 (09:00→21:14)
[2019-11-28] MEDS: VITAMINS A AND D OINT TP SCH ×3 (09:00→21:14)
[2019-11-28] MEDS: PHENOBARBITAL 30 MG/7.5 ML LIQUID UDC GT SCH ×2 (09:00→21:14)
[2019-11-28] MEDS: PHENYTOIN 100 MG/4 ML UDC GT SCH ×2 (09:00→21:14)
[2019-11-28] MEDS: Z GUARD REMEDY PASTE 57 GM TUBE TOP SCH ×2 (09:00→21:14)
[2019-11-28] MEDS: CHOLECALCIFEROL 400 UNITS TABLET GT SCH ×2 (09:00→21:14)
[2019-11-28] MEDS: CETAPHIL TOP SCH ×2 (09:00→21:14)
[2019-11-28] MEDS: JEVITY 1.2 1000 ML LIQUID GT PRN (12:43)
[2019-11-28 20:07] VITALS: BP 123/84
[2019-11-28] MEDS: MIRALAX 17 GM POWD.PACK GT SCH (21:14)
[2019-11-29] MEDS: OMEPRAZOLE 20 MG CAPSULE.DR GT SCH ×2 (05:42→20:27)
[2019-11-29 07:32] VITALS: BP 118/73
[2019-11-29] MEDS: IPRATROPIUM BROMIDE 0.5 MG/2.5 ML NEBU NEB SCH ×4 (07:35→18:45)
[2019-11-29] MEDS: ALBUTEROL SULFATE 2.5 MG/ 0.5 ML NEBU NEB SCH ×4 (07:35→18:45)
[2019-11-29] MEDS: HYDROGEN PEROXIDE 3% 118 ML BOTTLE TOP SCH ×2 (08:04→21:44)
[2019-11-29] MEDS: VITAMINS A AND D OINT TP SCH ×3 (09:04→20:28)
[2019-11-29] MEDS: CETAPHIL TOP SCH ×2 (09:04→20:28)
[2019-11-29] MEDS: PHENOBARBITAL 30 MG/7.5 ML LIQUID UDC GT SCH ×2 (09:04→20:27)
[2019-11-29] MEDS: PROTEIN SUPPLEMENT (PROSTAT) 30 ML LIQUID GT SCH ×2 (09:04→20:27)
[2019-11-29] MEDS: Z GUARD REMEDY PASTE 57 GM TUBE TOP SCH ×2 (09:04→20:28)
[2019-11-29] MEDS: PHENYTOIN 100 MG/4 ML UDC GT SCH ×2 (09:04→20:26)
[2019-11-29] MEDS: CHOLECALCIFEROL 400 UNITS TABLET GT SCH ×2 (09:04→20:27)
[2019-11-29] MEDS: JEVITY 1.2 1000 ML LIQUID GT PRN (13:20)
[2019-11-29 19:55] VITALS: BP 118/79
[2019-11-29] MEDS: MIRALAX 17 GM POWD.PACK GT SCH (20:27)
[2019-11-30] MEDS: JEVITY 1.2 1000 ML LIQUID GT PRN (05:00)
[2019-11-30] MEDS: OMEPRAZOLE 20 MG CAPSULE.DR GT SCH ×2 (05:44→21:51)
[2019-11-30 07:25] VITALS: BP 124/73
[2019-11-30] MEDS: IPRATROPIUM BROMIDE 0.5 MG/2.5 ML NEBU NEB SCH ×4 (07:54→19:00)
[2019-11-30] MEDS: ALBUTEROL SULFATE 2.5 MG/ 0.5 ML NEBU NEB SCH ×4 (07:54→19:00)
[2019-11-30] MEDS: HYDROGEN PEROXIDE 3% 118 ML BOTTLE TOP SCH ×2 (08:00→20:49)
[2019-11-30] MEDS: Z GUARD REMEDY PASTE 57 GM TUBE TOP SCH ×2 (09:01→21:54)
[2019-11-30] MEDS: PHENOBARBITAL 30 MG/7.5 ML LIQUID UDC GT SCH ×2 (09:01→21:50)
[2019-11-30] MEDS: CETAPHIL TOP SCH ×2 (09:01→21:53)
[2019-11-30] MEDS: VITAMINS A AND D OINT TP SCH ×3 (09:01→21:54)
[2019-11-30] MEDS: CHOLECALCIFEROL 400 UNITS TABLET GT SCH ×2 (09:01→21:53)
[2019-11-30] MEDS: PHENYTOIN 100 MG/4 ML UDC GT SCH ×2 (09:01→21:49)
[2019-11-30] MEDS: PROTEIN SUPPLEMENT (PROSTAT) 30 ML LIQUID GT SCH ×2 (09:01→21:52)
[2019-11-30 20:06] VITALS: BP 117/84
[2019-11-30] MEDS: MIRALAX 17 GM POWD.PACK GT SCH (21:49)
[2019-12-01] MEDS: JEVITY 1.2 1000 ML LIQUID GT PRN (03:00)
[2019-12-01] MEDS: OMEPRAZOLE 20 MG CAPSULE.DR GT SCH ×2 (06:03→21:30)
[2019-12-01] MEDS: IPRATROPIUM BROMIDE 0.5 MG/2.5 ML NEBU NEB SCH ×4 (07:35→18:55)
[2019-12-01] MEDS: ALBUTEROL SULFATE 2.5 MG/ 0.5 ML NEBU NEB SCH ×4 (07:35→18:55)
[2019-12-01 07:50] VITALS: BP 116/65
[2019-12-01] MEDS: PHENOBARBITAL 30 MG/7.5 ML LIQUID UDC GT SCH ×2 (08:52→21:30)
[2019-12-01] MEDS: PHENYTOIN 100 MG/4 ML UDC GT SCH ×2 (08:52→21:28)
[2019-12-01] MEDS: PROTEIN SUPPLEMENT (PROSTAT) 30 ML LIQUID GT SCH ×2 (08:52→21:30)
[2019-12-01] MEDS: CHOLECALCIFEROL 400 UNITS TABLET GT SCH ×2 (08:52→21:32)
[2019-12-01] MEDS: VITAMINS A AND D OINT TP SCH ×3 (08:53→21:33)
[2019-12-01] MEDS: CETAPHIL TOP SCH ×2 (08:53→21:32)
[2019-12-01] MEDS: Z GUARD REMEDY PASTE 57 GM TUBE TOP SCH ×2 (08:53→21:32)
[2019-12-01] MEDS: HYDROGEN PEROXIDE 3% 118 ML BOTTLE TOP SCH ×2 (09:00→18:55)
[2019-12-01 20:08] VITALS: BP 139/77
[2019-12-01] MEDS: MIRALAX 17 GM POWD.PACK GT SCH (21:30)
[2019-12-02] MEDS: JEVITY 1.2 1000 ML LIQUID GT PRN (01:58)
[2019-12-02] MEDS: OMEPRAZOLE 20 MG CAPSULE.DR GT SCH ×2 (05:55→21:00)
[2019-12-02] MEDS: IPRATROPIUM BROMIDE 0.5 MG/2.5 ML NEBU NEB SCH ×4 (07:31→19:26)
[2019-12-02] MEDS: ALBUTEROL SULFATE 2.5 MG/ 0.5 ML NEBU NEB SCH ×4 (07:31→19:26)
[2019-12-02] MEDS: HYDROGEN PEROXIDE 3% 118 ML BOTTLE TOP SCH ×2 (07:31→21:33)
[2019-12-02 07:51] VITALS: BP 121/62
[2019-12-02] MEDS: PHENOBARBITAL 30 MG/7.5 ML LIQUID UDC GT SCH ×2 (08:37→21:00)
[2019-12-02] MEDS: PROTEIN SUPPLEMENT (PROSTAT) 30 ML LIQUID GT SCH ×2 (08:37→21:00)
[2019-12-02] MEDS: PHENYTOIN 100 MG/4 ML UDC GT SCH ×2 (08:37→21:00)
[2019-12-02] MEDS: Z GUARD REMEDY PASTE 57 GM TUBE TOP SCH ×2 (08:38→21:00)
[2019-12-02] MEDS: CETAPHIL TOP SCH ×2 (08:38→21:00)
[2019-12-02] MEDS: CHOLECALCIFEROL 400 UNITS TABLET GT SCH ×2 (08:38→21:00)
[2019-12-02] MEDS: VITAMINS A AND D OINT TP SCH ×3 (08:38→21:00)
--- NOTE | 2019-12-02 17:33 | NUR ---
SEEN BY DR. MORE AND WITH NNO.
[2019-12-02 20:07] VITALS: BP 126/78
[2019-12-02] MEDS: MIRALAX 17 GM POWD.PACK GT SCH (21:00)
[2019-12-03] MEDS: JEVITY 1.2 1000 ML LIQUID GT PRN (03:21)
[2019-12-03] MEDS: OMEPRAZOLE 20 MG CAPSULE.DR GT SCH ×2 (06:05→21:00)
[2019-12-03] MEDS: IPRATROPIUM BROMIDE 0.5 MG/2.5 ML NEBU NEB SCH ×4 (07:23→19:20)
[2019-12-03] MEDS: ALBUTEROL SULFATE 2.5 MG/ 0.5 ML NEBU NEB SCH ×4 (07:23→19:20)
[2019-12-03 07:50] VITALS: BP 120/69
[2019-12-03] MEDS: PHENOBARBITAL 30 MG/7.5 ML LIQUID UDC GT SCH ×2 (08:23→21:00)
[2019-12-03] MEDS: PROTEIN SUPPLEMENT (PROSTAT) 30 ML LIQUID GT SCH ×2 (08:23→21:00)
[2019-12-03] MEDS: PHENYTOIN 100 MG/4 ML UDC GT SCH ×2 (08:23→21:00)
[2019-12-03] MEDS: VITAMINS A AND D OINT TP SCH ×3 (08:24→21:00)
[2019-12-03] MEDS: CETAPHIL TOP SCH ×2 (08:24→21:00)
[2019-12-03] MEDS: CHOLECALCIFEROL 400 UNITS TABLET GT SCH ×2 (08:24→21:00)
[2019-12-03] MEDS: Z GUARD REMEDY PASTE 57 GM TUBE TOP SCH ×2 (08:24→21:00)
[2019-12-03] MEDS: HYDROGEN PEROXIDE 3% 118 ML BOTTLE TOP SCH ×2 (09:29→21:10)
[2019-12-03] MEDS: MIRALAX 17 GM POWD.PACK GT SCH (21:00)
[2019-12-03 22:16] VITALS: BP 120/78
[2019-12-04] MEDS: JEVITY 1.2 1000 ML LIQUID GT PRN ×2 (02:04→17:46)
[2019-12-04] MEDS: OMEPRAZOLE 20 MG CAPSULE.DR GT SCH ×2 (05:44→20:13)
[2019-12-04] MEDS: IPRATROPIUM BROMIDE 0.5 MG/2.5 ML NEBU NEB SCH ×4 (07:11→18:40)
[2019-12-04] MEDS: ALBUTEROL SULFATE 2.5 MG/ 0.5 ML NEBU NEB SCH ×4 (07:11→18:40)
[2019-12-04 07:34] VITALS: BP 119/60
[2019-12-04] MEDS: HYDROGEN PEROXIDE 3% 118 ML BOTTLE TOP SCH ×2 (09:00→21:12)
[2019-12-04] MEDS: PHENYTOIN 100 MG/4 ML UDC GT SCH ×2 (09:01→20:13)
[2019-12-04] MEDS: PHENOBARBITAL 30 MG/7.5 ML LIQUID UDC GT SCH ×2 (09:01→20:13)
[2019-12-04] MEDS: VITAMINS A AND D OINT TP SCH ×3 (09:02→20:13)
[2019-12-04] MEDS: CHOLECALCIFEROL 400 UNITS TABLET GT SCH ×2 (09:02→20:13)
[2019-12-04] MEDS: Z GUARD REMEDY PASTE 57 GM TUBE TOP SCH ×2 (09:02→20:13)
[2019-12-04] MEDS: PROTEIN SUPPLEMENT (PROSTAT) 30 ML LIQUID GT SCH ×2 (09:02→20:13)
[2019-12-04] MEDS: CETAPHIL TOP SCH ×2 (09:02→20:13)
[2019-12-04] MEDS: MIRALAX 17 GM POWD.PACK GT SCH (20:13)
[2019-12-04 22:12] VITALS: BP 127/77
[2019-12-05] MEDS: OMEPRAZOLE 20 MG CAPSULE.DR GT SCH ×2 (06:06→21:16)
[2019-12-05 07:26] VITALS: BP 124/78
[2019-12-05] MEDS: HYDROGEN PEROXIDE 3% 118 ML BOTTLE TOP SCH ×2 (07:47→21:09)
[2019-12-05] MEDS: ALBUTEROL SULFATE 2.5 MG/ 0.5 ML NEBU NEB SCH ×4 (07:47→18:40)
[2019-12-05] MEDS: IPRATROPIUM BROMIDE 0.5 MG/2.5 ML NEBU NEB SCH ×4 (07:47→18:40)
[2019-12-05] MEDS: PHENOBARBITAL 30 MG/7.5 ML LIQUID UDC GT SCH ×2 (08:23→21:16)
[2019-12-05] MEDS: PHENYTOIN 100 MG/4 ML UDC GT SCH ×2 (08:23→21:16)
[2019-12-05] MEDS: CETAPHIL TOP SCH ×2 (08:24→21:17)
[2019-12-05] MEDS: CHOLECALCIFEROL 400 UNITS TABLET GT SCH ×2 (08:24→21:17)
[2019-12-05] MEDS: PROTEIN SUPPLEMENT (PROSTAT) 30 ML LIQUID GT SCH ×2 (08:24→21:17)
[2019-12-05] MEDS: VITAMINS A AND D OINT TP SCH ×3 (08:24→21:17)
[2019-12-05] MEDS: Z GUARD REMEDY PASTE 57 GM TUBE TOP SCH ×2 (08:24→21:17)
[2019-12-05] MEDS: MIRALAX 17 GM POWD.PACK GT SCH (21:16)
[2019-12-05 22:16] VITALS: BP 134/79
[2019-12-06] MEDS: OMEPRAZOLE 20 MG CAPSULE.DR GT SCH ×2 (05:51→21:02)
[2019-12-06 07:32] VITALS: BP 147/90
[2019-12-06] MEDS: HYDROGEN PEROXIDE 3% 118 ML BOTTLE TOP SCH ×2 (07:39→21:31)
[2019-12-06] MEDS: IPRATROPIUM BROMIDE 0.5 MG/2.5 ML NEBU NEB SCH ×4 (07:39→18:40)
[2019-12-06] MEDS: ALBUTEROL SULFATE 2.5 MG/ 0.5 ML NEBU NEB SCH ×4 (07:39→18:40)
[2019-12-06] MEDS: PHENYTOIN 100 MG/4 ML UDC GT SCH ×2 (08:27→21:01)
[2019-12-06] MEDS: PHENOBARBITAL 30 MG/7.5 ML LIQUID UDC GT SCH ×2 (08:29→21:02)
[2019-12-06] MEDS: PROTEIN SUPPLEMENT (PROSTAT) 30 ML LIQUID GT SCH ×2 (08:30→21:02)
[2019-12-06] MEDS: VITAMINS A AND D OINT TP SCH ×3 (08:30→21:03)
[2019-12-06] MEDS: Z GUARD REMEDY PASTE 57 GM TUBE TOP SCH ×2 (08:30→21:03)
[2019-12-06] MEDS: CETAPHIL TOP SCH ×2 (08:30→21:03)
[2019-12-06] MEDS: CHOLECALCIFEROL 400 UNITS TABLET GT SCH ×2 (08:30→21:03)
[2019-12-06] MEDS: JEVITY 1.2 1000 ML LIQUID GT PRN (11:10)
[2019-12-06 20:17] VITALS: BP 138/83
[2019-12-06] MEDS: MIRALAX 17 GM POWD.PACK GT SCH (21:01)
[2019-12-07] MEDS: OMEPRAZOLE 20 MG CAPSULE.DR GT SCH ×2 (06:49→21:05)
[2019-12-07] MEDS: JEVITY 1.2 1000 ML LIQUID GT PRN (06:49)
[2019-12-07] MEDS: ALBUTEROL SULFATE 2.5 MG/ 0.5 ML NEBU NEB SCH ×4 (07:12→19:15)
[2019-12-07] MEDS: HYDROGEN PEROXIDE 3% 118 ML BOTTLE TOP SCH ×2 (07:12→20:47)
[2019-12-07] MEDS: IPRATROPIUM BROMIDE 0.5 MG/2.5 ML NEBU NEB SCH ×4 (07:12→19:15)
[2019-12-07 07:27] VITALS: BP 124/75
[2019-12-07] MEDS: PHENOBARBITAL 30 MG/7.5 ML LIQUID UDC GT SCH ×2 (08:48→21:05)
[2019-12-07] MEDS: CHOLECALCIFEROL 400 UNITS TABLET GT SCH ×2 (08:48→21:06)
[2019-12-07] MEDS: PROTEIN SUPPLEMENT (PROSTAT) 30 ML LIQUID GT SCH ×2 (08:48→21:06)
[2019-12-07] MEDS: PHENYTOIN 100 MG/4 ML UDC GT SCH ×2 (08:48→21:05)
[2019-12-07] MEDS: VITAMINS A AND D OINT TP SCH ×3 (08:49→21:06)
[2019-12-07] MEDS: CETAPHIL TOP SCH ×2 (08:49→21:06)
[2019-12-07] MEDS: Z GUARD REMEDY PASTE 57 GM TUBE TOP SCH ×2 (08:49→21:06)
--- NOTE | 2019-12-07 15:27 | NUR ---
INTERDISCIPLINARY PLAN OF CARE CONFERENCE was held today. Patient's parents were not available to participate in the meeting. Dr. Hammond and the Interdisciplinary Team reviewed the current plan of care in detail. RN reported on patient's medical condition. See RN IDT conference notes. No major changes in medical condition were reported by nursing or by other disciplines. See all other disciplines IDT notes and physician's progress notes for additional details.
[2019-12-07 20:00] VITALS: BP 140/89
[2019-12-07] MEDS: MIRALAX 17 GM POWD.PACK GT SCH (21:05)
[2019-12-08] MEDS: JEVITY 1.2 1000 ML LIQUID GT PRN (04:29)
[2019-12-08] MEDS: OMEPRAZOLE 20 MG CAPSULE.DR GT SCH ×2 (06:33→21:01)
[2019-12-08] MEDS: ALBUTEROL SULFATE 2.5 MG/ 0.5 ML NEBU NEB SCH ×4 (07:12→19:38)
[2019-12-08] MEDS: IPRATROPIUM BROMIDE 0.5 MG/2.5 ML NEBU NEB SCH ×4 (07:12→19:38)
[2019-12-08 07:53] VITALS: BP 135/90
[2019-12-08] MEDS: PROTEIN SUPPLEMENT (PROSTAT) 30 ML LIQUID GT SCH ×2 (09:00→21:08)
[2019-12-08] MEDS: Z GUARD REMEDY PASTE 57 GM TUBE TOP SCH ×2 (09:00→21:01)
[2019-12-08] MEDS: CHOLECALCIFEROL 400 UNITS TABLET GT SCH ×2 (09:00→21:08)
[2019-12-08] MEDS: CETAPHIL TOP SCH ×2 (09:00→21:01)
[2019-12-08] MEDS: VITAMINS A AND D OINT TP SCH ×3 (09:00→21:01)
[2019-12-08] MEDS: HYDROGEN PEROXIDE 3% 118 ML BOTTLE TOP SCH ×2 (09:27→20:58)
[2019-12-08] MEDS: PHENOBARBITAL 30 MG/7.5 ML LIQUID UDC GT SCH ×2 (09:58→21:08)
[2019-12-08] MEDS: PHENYTOIN 100 MG/4 ML UDC GT SCH ×2 (09:58→21:04)
[2019-12-08 20:00] VITALS: BP 145/80
[2019-12-08] MEDS: MIRALAX 17 GM POWD.PACK GT SCH (21:00)
[2019-12-09] MEDS: JEVITY 1.2 1000 ML LIQUID GT PRN ×2 (00:44→17:53)
[2019-12-09] MEDS: OMEPRAZOLE 20 MG CAPSULE.DR GT SCH ×2 (05:33→20:42)
[2019-12-09] MEDS: IPRATROPIUM BROMIDE 0.5 MG/2.5 ML NEBU NEB SCH ×4 (07:21→19:11)
[2019-12-09] MEDS: ALBUTEROL SULFATE 2.5 MG/ 0.5 ML NEBU NEB SCH ×4 (07:21→19:11)
[2019-12-09 08:00] VITALS: BP 135/85
[2019-12-09] MEDS: PHENOBARBITAL 30 MG/7.5 ML LIQUID UDC GT SCH ×2 (08:06→20:42)
[2019-12-09] MEDS: PHENYTOIN 100 MG/4 ML UDC GT SCH ×2 (08:06→20:42)
[2019-12-09] MEDS: PROTEIN SUPPLEMENT (PROSTAT) 30 ML LIQUID GT SCH ×2 (08:07→20:42)
[2019-12-09] MEDS: CHOLECALCIFEROL 400 UNITS TABLET GT SCH ×2 (08:07→20:48)
[2019-12-09] MEDS: VITAMINS A AND D OINT TP SCH ×3 (08:09→21:00)
[2019-12-09] MEDS: Z GUARD REMEDY PASTE 57 GM TUBE TOP SCH ×2 (08:09→21:00)
[2019-12-09] MEDS: CETAPHIL TOP SCH ×2 (08:09→21:00)
[2019-12-09] MEDS: HYDROGEN PEROXIDE 3% 118 ML BOTTLE TOP SCH ×2 (09:27→20:45)
[2019-12-09 20:00] VITALS: BP 132/61
[2019-12-09] MEDS: MIRALAX 17 GM POWD.PACK GT SCH (20:42)
[2019-12-10] MEDS: OMEPRAZOLE 20 MG CAPSULE.DR GT SCH ×2 (05:53→21:02)
[2019-12-10] MEDS: IPRATROPIUM BROMIDE 0.5 MG/2.5 ML NEBU NEB SCH ×4 (07:24→19:10)
[2019-12-10] MEDS: ALBUTEROL SULFATE 2.5 MG/ 0.5 ML NEBU NEB SCH ×4 (07:24→19:10)
[2019-12-10 07:38] VITALS: BP 135/80
[2019-12-10] MEDS: PHENYTOIN 100 MG/4 ML UDC GT SCH ×2 (08:08→21:02)
[2019-12-10] MEDS: PHENOBARBITAL 30 MG/7.5 ML LIQUID UDC GT SCH ×2 (08:08→21:02)
[2019-12-10] MEDS: PROTEIN SUPPLEMENT (PROSTAT) 30 ML LIQUID GT SCH ×2 (08:10→21:02)
[2019-12-10] MEDS: CETAPHIL TOP SCH ×2 (08:12→21:02)
[2019-12-10] MEDS: VITAMINS A AND D OINT TP SCH ×3 (08:12→21:02)
[2019-12-10] MEDS: CHOLECALCIFEROL 400 UNITS TABLET GT SCH ×2 (08:12→21:02)
[2019-12-10] MEDS: Z GUARD REMEDY PASTE 57 GM TUBE TOP SCH ×2 (08:12→21:02)
[2019-12-10] MEDS: HYDROGEN PEROXIDE 3% 118 ML BOTTLE TOP SCH ×2 (09:08→21:07)
[2019-12-10] MEDS: JEVITY 1.2 1000 ML LIQUID GT PRN (15:09)
[2019-12-10 20:22] VITALS: BP 90/58
[2019-12-10] MEDS: MIRALAX 17 GM POWD.PACK GT SCH (21:02)
[2019-12-11] MEDS: OMEPRAZOLE 20 MG CAPSULE.DR GT SCH ×2 (05:55→21:35)
[2019-12-11] MEDS: JEVITY 1.2 1000 ML LIQUID GT PRN (06:43)
[2019-12-11] MEDS: IPRATROPIUM BROMIDE 0.5 MG/2.5 ML NEBU NEB SCH ×4 (07:29→19:00)
[2019-12-11] MEDS: ALBUTEROL SULFATE 2.5 MG/ 0.5 ML NEBU NEB SCH ×4 (07:29→19:00)
[2019-12-11 08:00] VITALS: BP 132/82
[2019-12-11] MEDS: CETAPHIL TOP SCH ×2 (08:47→21:36)
[2019-12-11] MEDS: PHENOBARBITAL 30 MG/7.5 ML LIQUID UDC GT SCH ×2 (08:47→21:35)
[2019-12-11] MEDS: Z GUARD REMEDY PASTE 57 GM TUBE TOP SCH ×2 (08:47→21:36)
[2019-12-11] MEDS: CHOLECALCIFEROL 400 UNITS TABLET GT SCH ×2 (08:47→21:36)
[2019-12-11] MEDS: PHENYTOIN 100 MG/4 ML UDC GT SCH ×2 (08:47→21:35)
[2019-12-11] MEDS: PROTEIN SUPPLEMENT (PROSTAT) 30 ML LIQUID GT SCH ×2 (08:47→21:35)
[2019-12-11] MEDS: VITAMINS A AND D OINT TP SCH ×3 (08:47→21:36)
[2019-12-11] MEDS: HYDROGEN PEROXIDE 3% 118 ML BOTTLE TOP SCH ×2 (09:00→21:39)
[2019-12-11 20:04] VITALS: BP 136/80
[2019-12-11] MEDS: MIRALAX 17 GM POWD.PACK GT SCH (21:35)
[2019-12-12] MEDS: JEVITY 1.2 1000 ML LIQUID GT PRN (02:40)
[2019-12-12] MEDS: OMEPRAZOLE 20 MG CAPSULE.DR GT SCH ×2 (05:56→21:37)
[2019-12-12] MEDS: IPRATROPIUM BROMIDE 0.5 MG/2.5 ML NEBU NEB SCH ×4 (07:26→18:40)
[2019-12-12] MEDS: ALBUTEROL SULFATE 2.5 MG/ 0.5 ML NEBU NEB SCH ×4 (07:26→18:40)
[2019-12-12 08:01] VITALS: BP 135/82
[2019-12-12] MEDS: PHENOBARBITAL 30 MG/7.5 ML LIQUID UDC GT SCH ×2 (08:38→21:37)
[2019-12-12] MEDS: PROTEIN SUPPLEMENT (PROSTAT) 30 ML LIQUID GT SCH ×2 (08:38→21:37)
[2019-12-12] MEDS: PHENYTOIN 100 MG/4 ML UDC GT SCH ×2 (08:38→21:36)
[2019-12-12] MEDS: Z GUARD REMEDY PASTE 57 GM TUBE TOP SCH ×2 (08:39→21:37)
[2019-12-12] MEDS: VITAMINS A AND D OINT TP SCH ×3 (08:39→21:38)
[2019-12-12] MEDS: CHOLECALCIFEROL 400 UNITS TABLET GT SCH ×2 (08:39→21:37)
[2019-12-12] MEDS: CETAPHIL TOP SCH ×2 (08:39→21:37)
[2019-12-12] MEDS: HYDROGEN PEROXIDE 3% 118 ML BOTTLE TOP SCH ×2 (09:00→21:08)
[2019-12-12 20:15] VITALS: BP 119/76
[2019-12-12] MEDS: MIRALAX 17 GM POWD.PACK GT SCH (21:37)
[2019-12-13] MEDS: OMEPRAZOLE 20 MG CAPSULE.DR GT SCH ×2 (05:01→21:48)
[2019-12-13] MEDS: IPRATROPIUM BROMIDE 0.5 MG/2.5 ML NEBU NEB SCH ×4 (07:09→18:40)
[2019-12-13] MEDS: ALBUTEROL SULFATE 2.5 MG/ 0.5 ML NEBU NEB SCH ×4 (07:09→18:40)
[2019-12-13 07:40] VITALS: BP 129/83
[2019-12-13] MEDS: Z GUARD REMEDY PASTE 57 GM TUBE TOP SCH ×2 (09:00→21:48)
[2019-12-13] MEDS: CETAPHIL TOP SCH ×2 (09:09→21:48)
[2019-12-13] MEDS: VITAMINS A AND D OINT TP SCH ×3 (09:09→21:48)
[2019-12-13] MEDS: PHENYTOIN 100 MG/4 ML UDC GT SCH ×2 (09:09→21:47)
[2019-12-13] MEDS: PROTEIN SUPPLEMENT (PROSTAT) 30 ML LIQUID GT SCH ×2 (09:09→21:48)
[2019-12-13] MEDS: CHOLECALCIFEROL 400 UNITS TABLET GT SCH ×2 (09:09→21:48)
[2019-12-13] MEDS: PHENOBARBITAL 30 MG/7.5 ML LIQUID UDC GT SCH ×2 (09:09→21:52)
[2019-12-13] MEDS: HYDROGEN PEROXIDE 3% 118 ML BOTTLE TOP SCH ×2 (09:13→21:37)
[2019-12-13 20:18] VITALS: BP 168/85
[2019-12-13] MEDS: MIRALAX 17 GM POWD.PACK GT SCH (21:47)
[2019-12-13 22:00] VITALS: BP 136/82
[2019-12-14] MEDS: OMEPRAZOLE 20 MG CAPSULE.DR GT SCH ×2 (06:10→21:59)
[2019-12-14] MEDS: JEVITY 1.2 1000 ML LIQUID GT PRN (06:10)
[2019-12-14] MEDS: IPRATROPIUM BROMIDE 0.5 MG/2.5 ML NEBU NEB SCH ×4 (07:27→19:10)
[2019-12-14] MEDS: ALBUTEROL SULFATE 2.5 MG/ 0.5 ML NEBU NEB SCH ×4 (07:28→19:10)
[2019-12-14 07:58] VITALS: BP 126/92
[2019-12-14] MEDS: HYDROGEN PEROXIDE 3% 118 ML BOTTLE TOP SCH ×2 (08:15→20:57)
[2019-12-14] MEDS: CHOLECALCIFEROL 400 UNITS TABLET GT SCH ×2 (08:27→21:00)
[2019-12-14] MEDS: PHENOBARBITAL 30 MG/7.5 ML LIQUID UDC GT SCH ×2 (08:27→21:59)
[2019-12-14] MEDS: CETAPHIL TOP SCH ×2 (08:27→21:00)
[2019-12-14] MEDS: PROTEIN SUPPLEMENT (PROSTAT) 30 ML LIQUID GT SCH ×2 (08:27→21:00)
[2019-12-14] MEDS: Z GUARD REMEDY PASTE 57 GM TUBE TOP SCH ×2 (08:27→21:00)
[2019-12-14] MEDS: PHENYTOIN 100 MG/4 ML UDC GT SCH ×2 (08:27→21:58)
[2019-12-14] MEDS: VITAMINS A AND D OINT TP SCH ×3 (08:28→21:00)
--- NOTE | 2019-12-14 16:00 | NUR ---
Pt's mother BJ notified Covid 19 test ,was done today,Per mother is okay to give Flu shot to her Son. Addendum: 12/14/19 at 2004 by PARMINDER DUFFY RN Pt's mother says No to Flu vaccine.
[2019-12-14 20:47] VITALS: BP 133/74
[2019-12-14] MEDS: MIRALAX 17 GM POWD.PACK GT SCH (21:58)
[2019-12-15] MEDS: OMEPRAZOLE 20 MG CAPSULE.DR GT SCH ×2 (05:55→21:00)
[2019-12-15] MEDS: IPRATROPIUM BROMIDE 0.5 MG/2.5 ML NEBU NEB SCH ×4 (07:10→19:04)
[2019-12-15] MEDS: ALBUTEROL SULFATE 2.5 MG/ 0.5 ML NEBU NEB SCH ×4 (07:10→19:04)
[2019-12-15 07:31] VITALS: BP 103/70
[2019-12-15] MEDS: PHENYTOIN 100 MG/4 ML UDC GT SCH ×2 (08:12→21:00)
[2019-12-15] MEDS: PHENOBARBITAL 30 MG/7.5 ML LIQUID UDC GT SCH ×2 (08:14→21:00)
[2019-12-15] MEDS: CETAPHIL TOP SCH ×2 (08:14→21:00)
[2019-12-15] MEDS: PROTEIN SUPPLEMENT (PROSTAT) 30 ML LIQUID GT SCH ×2 (08:14→21:00)
[2019-12-15] MEDS: CHOLECALCIFEROL 400 UNITS TABLET GT SCH ×2 (08:14→21:00)
[2019-12-15] MEDS: VITAMINS A AND D OINT TP SCH ×3 (08:15→21:00)
[2019-12-15] MEDS: Z GUARD REMEDY PASTE 57 GM TUBE TOP SCH ×2 (08:15→21:00)
[2019-12-15] MEDS: HYDROGEN PEROXIDE 3% 118 ML BOTTLE TOP SCH ×2 (08:39→19:04)
--- NOTE | 2019-12-15 19:15 | NUR ---
BJ pt's mother was informed the result for Covid19 test was negative
[2019-12-15 20:19] VITALS: BP 134/79
[2019-12-15] MEDS: MIRALAX 17 GM POWD.PACK GT SCH (21:00)
[2019-12-16] MEDS: OMEPRAZOLE 20 MG CAPSULE.DR GT SCH ×2 (05:58→21:00)
[2019-12-16] MEDS: JEVITY 1.2 1000 ML LIQUID GT PRN (06:57)
[2019-12-16] MEDS: IPRATROPIUM BROMIDE 0.5 MG/2.5 ML NEBU NEB SCH ×4 (07:14→19:05)
[2019-12-16] MEDS: HYDROGEN PEROXIDE 3% 118 ML BOTTLE TOP SCH ×2 (07:14→21:27)
[2019-12-16] MEDS: ALBUTEROL SULFATE 2.5 MG/ 0.5 ML NEBU NEB SCH ×4 (07:14→19:05)
[2019-12-16 07:57] VITALS: BP 137/81
[2019-12-16] MEDS: PROTEIN SUPPLEMENT (PROSTAT) 30 ML LIQUID GT SCH ×2 (08:03→21:00)
[2019-12-16] MEDS: CETAPHIL TOP SCH ×2 (08:03→21:00)
[2019-12-16] MEDS: Z GUARD REMEDY PASTE 57 GM TUBE TOP SCH ×2 (08:03→21:00)
[2019-12-16] MEDS: PHENOBARBITAL 30 MG/7.5 ML LIQUID UDC GT SCH ×2 (08:03→21:00)
[2019-12-16] MEDS: CHOLECALCIFEROL 400 UNITS TABLET GT SCH ×2 (08:03→21:00)
[2019-12-16] MEDS: PHENYTOIN 100 MG/4 ML UDC GT SCH ×2 (08:03→21:00)
[2019-12-16] MEDS: VITAMINS A AND D OINT TP SCH ×3 (08:04→21:00)
[2019-12-16 20:35] VITALS: BP 129/83
[2019-12-16] MEDS: MIRALAX 17 GM POWD.PACK GT SCH (21:00)
[2019-12-17] MEDS: OMEPRAZOLE 20 MG CAPSULE.DR GT SCH ×2 (05:41→20:56)
[2019-12-17] MEDS: JEVITY 1.2 1000 ML LIQUID GT PRN (05:42)
[2019-12-17] MEDS: IPRATROPIUM BROMIDE 0.5 MG/2.5 ML NEBU NEB SCH ×4 (07:11→19:02)
[2019-12-17] MEDS: ALBUTEROL SULFATE 2.5 MG/ 0.5 ML NEBU NEB SCH ×4 (07:11→19:02)
[2019-12-17 07:43] VITALS: BP 119/71
[2019-12-17] MEDS: HYDROGEN PEROXIDE 3% 118 ML BOTTLE TOP SCH ×2 (08:09→21:03)
[2019-12-17] MEDS: PROTEIN SUPPLEMENT (PROSTAT) 30 ML LIQUID GT SCH ×2 (08:43→20:56)
[2019-12-17] MEDS: PHENOBARBITAL 30 MG/7.5 ML LIQUID UDC GT SCH ×2 (08:43→20:56)
[2019-12-17] MEDS: CHOLECALCIFEROL 400 UNITS TABLET GT SCH ×2 (08:43→20:56)
[2019-12-17] MEDS: PHENYTOIN 100 MG/4 ML UDC GT SCH ×2 (08:43→20:56)
[2019-12-17] MEDS: CETAPHIL TOP SCH ×2 (08:43→20:56)
[2019-12-17] MEDS: VITAMINS A AND D OINT TP SCH ×3 (08:43→20:57)
[2019-12-17] MEDS: Z GUARD REMEDY PASTE 57 GM TUBE TOP SCH ×2 (08:43→20:56)
[2019-12-17 20:43] VITALS: BP 136/80
[2019-12-17] MEDS: MIRALAX 17 GM POWD.PACK GT SCH (20:56)
[2019-12-18] MEDS: OMEPRAZOLE 20 MG CAPSULE.DR GT SCH ×2 (05:35→20:10)
[2019-12-18] MEDS: ALBUTEROL SULFATE 2.5 MG/ 0.5 ML NEBU NEB SCH ×4 (07:15→19:04)
[2019-12-18] MEDS: HYDROGEN PEROXIDE 3% 118 ML BOTTLE TOP SCH ×2 (07:15→19:05)
[2019-12-18] MEDS: IPRATROPIUM BROMIDE 0.5 MG/2.5 ML NEBU NEB SCH ×4 (07:15→19:04)
[2019-12-18 07:44] VITALS: BP 133/78
[2019-12-18] MEDS: PHENYTOIN 100 MG/4 ML UDC GT SCH ×2 (09:12→20:10)
[2019-12-18] MEDS: CETAPHIL TOP SCH ×2 (09:14→20:10)
[2019-12-18] MEDS: CHOLECALCIFEROL 400 UNITS TABLET GT SCH ×2 (09:14→20:10)
[2019-12-18] MEDS: PROTEIN SUPPLEMENT (PROSTAT) 30 ML LIQUID GT SCH ×2 (09:14→20:10)
[2019-12-18] MEDS: PHENOBARBITAL 30 MG/7.5 ML LIQUID UDC GT SCH ×2 (09:14→20:10)
[2019-12-18] MEDS: Z GUARD REMEDY PASTE 57 GM TUBE TOP SCH ×2 (09:15→20:10)
[2019-12-18] MEDS: VITAMINS A AND D OINT TP SCH ×3 (09:15→20:10)
[2019-12-18] MEDS: MIRALAX 17 GM POWD.PACK GT SCH (20:10)
[2019-12-18 20:48] VITALS: BP 131/80
--- NOTE | 2019-12-18 21:22 | NUR ---
Afebrile, trach is intact and patent, no bleeding from the trach secondary to routine trach replacement today. No signs of any respiratory distress noted, 02 sat is 99%, kept clean and comfortable.
[2019-12-19] MEDS: OMEPRAZOLE 20 MG CAPSULE.DR GT SCH ×2 (05:57→21:00)
[2019-12-19] MEDS: JEVITY 1.2 1000 ML LIQUID GT PRN (05:58)
[2019-12-19] MEDS: HYDROGEN PEROXIDE 3% 118 ML BOTTLE TOP SCH ×2 (07:43→20:51)
[2019-12-19] MEDS: IPRATROPIUM BROMIDE 0.5 MG/2.5 ML NEBU NEB SCH ×4 (07:43→19:06)
[2019-12-19] MEDS: ALBUTEROL SULFATE 2.5 MG/ 0.5 ML NEBU NEB SCH ×4 (07:43→19:06)
[2019-12-19 07:45] VITALS: BP 121/79
[2019-12-19] MEDS: CHOLECALCIFEROL 400 UNITS TABLET GT SCH ×2 (09:22→21:00)
[2019-12-19] MEDS: VITAMINS A AND D OINT TP SCH ×3 (09:22→21:00)
[2019-12-19] MEDS: Z GUARD REMEDY PASTE 57 GM TUBE TOP SCH ×2 (09:22→21:00)
[2019-12-19] MEDS: PHENYTOIN 100 MG/4 ML UDC GT SCH ×2 (09:22→21:00)
[2019-12-19] MEDS: PROTEIN SUPPLEMENT (PROSTAT) 30 ML LIQUID GT SCH ×2 (09:22→21:00)
[2019-12-19] MEDS: CETAPHIL TOP SCH ×2 (09:22→21:00)
[2019-12-19] MEDS: PHENOBARBITAL 30 MG/7.5 ML LIQUID UDC GT SCH ×2 (09:22→21:00)
[2019-12-19 20:23] VITALS: BP 130/74
[2019-12-19] MEDS: MIRALAX 17 GM POWD.PACK GT SCH (21:00)
[2019-12-20] MEDS: JEVITY 1.2 1000 ML LIQUID GT PRN (00:52)
[2019-12-20] MEDS: OMEPRAZOLE 20 MG CAPSULE.DR GT SCH ×2 (05:56→20:40)
[2019-12-20] MEDS: IPRATROPIUM BROMIDE 0.5 MG/2.5 ML NEBU NEB SCH ×4 (07:15→18:50)
[2019-12-20] MEDS: ALBUTEROL SULFATE 2.5 MG/ 0.5 ML NEBU NEB SCH ×4 (07:15→18:50)
[2019-12-20 07:45] VITALS: BP 122/65
[2019-12-20] MEDS: PHENYTOIN 100 MG/4 ML UDC GT SCH ×2 (08:33→20:40)
[2019-12-20] MEDS: PROTEIN SUPPLEMENT (PROSTAT) 30 ML LIQUID GT SCH ×2 (08:35→20:40)
[2019-12-20] MEDS: PHENOBARBITAL 30 MG/7.5 ML LIQUID UDC GT SCH ×2 (08:35→20:40)
[2019-12-20] MEDS: CHOLECALCIFEROL 400 UNITS TABLET GT SCH ×2 (08:35→20:40)
[2019-12-20] MEDS: CETAPHIL TOP SCH ×2 (08:35→20:40)
[2019-12-20] MEDS: Z GUARD REMEDY PASTE 57 GM TUBE TOP SCH ×2 (09:00→20:40)
[2019-12-20] MEDS: VITAMINS A AND D OINT TP SCH ×3 (09:00→20:43)
[2019-12-20] MEDS: HYDROGEN PEROXIDE 3% 118 ML BOTTLE TOP SCH ×2 (09:42→21:36)
--- NOTE | 2019-12-20 10:00 | NUR ---
SEEN BY ELICEO Florez AND WITH KENDALLO.
[2019-12-20 20:39] VITALS: BP 130/81
[2019-12-20] MEDS: MIRALAX 17 GM POWD.PACK GT SCH (20:40)
[2019-12-21] MEDS: OMEPRAZOLE 20 MG CAPSULE.DR GT SCH ×2 (05:36→21:44)
[2019-12-21] MEDS: IPRATROPIUM BROMIDE 0.5 MG/2.5 ML NEBU NEB SCH ×4 (07:18→18:50)
[2019-12-21] MEDS: ALBUTEROL SULFATE 2.5 MG/ 0.5 ML NEBU NEB SCH ×4 (07:18→18:50)
[2019-12-21 07:58] VITALS: BP 121/73
[2019-12-21] MEDS: HYDROGEN PEROXIDE 3% 118 ML BOTTLE TOP SCH ×2 (08:10→21:36)
[2019-12-21] MEDS: CHOLECALCIFEROL 400 UNITS TABLET GT SCH ×2 (08:39→21:45)
[2019-12-21] MEDS: CETAPHIL TOP SCH ×2 (08:39→21:45)
[2019-12-21] MEDS: PHENOBARBITAL 30 MG/7.5 ML LIQUID UDC GT SCH ×2 (08:39→21:44)
[2019-12-21] MEDS: VITAMINS A AND D OINT TP SCH ×3 (08:39→21:45)
[2019-12-21] MEDS: PROTEIN SUPPLEMENT (PROSTAT) 30 ML LIQUID GT SCH ×2 (08:39→21:44)
[2019-12-21] MEDS: Z GUARD REMEDY PASTE 57 GM TUBE TOP SCH ×2 (08:39→21:45)
[2019-12-21] MEDS: PHENYTOIN 100 MG/4 ML UDC GT SCH ×2 (08:39→21:44)
[2019-12-21 20:00] VITALS: BP 134/73
[2019-12-21] MEDS: MIRALAX 17 GM POWD.PACK GT SCH (21:44)
[2019-12-22] MEDS: JEVITY 1.2 1000 ML LIQUID GT PRN ×2 (00:51→13:51)
[2019-12-22] MEDS: OMEPRAZOLE 20 MG CAPSULE.DR GT SCH ×2 (06:21→21:53)
[2019-12-22] MEDS: ALBUTEROL SULFATE 2.5 MG/ 0.5 ML NEBU NEB SCH ×4 (07:06→19:01)
[2019-12-22] MEDS: HYDROGEN PEROXIDE 3% 118 ML BOTTLE TOP SCH ×2 (07:06→20:57)
[2019-12-22] MEDS: IPRATROPIUM BROMIDE 0.5 MG/2.5 ML NEBU NEB SCH ×4 (07:06→19:01)
[2019-12-22 07:43] VITALS: BP 117/79
[2019-12-22] MEDS: PHENYTOIN 100 MG/4 ML UDC GT SCH ×2 (09:25→21:51)
[2019-12-22] MEDS: PROTEIN SUPPLEMENT (PROSTAT) 30 ML LIQUID GT SCH ×2 (09:33→21:53)
[2019-12-22] MEDS: PHENOBARBITAL 30 MG/7.5 ML LIQUID UDC GT SCH ×2 (09:33→21:51)
[2019-12-22] MEDS: CHOLECALCIFEROL 400 UNITS TABLET GT SCH ×2 (09:34→21:53)
[2019-12-22] MEDS: CETAPHIL TOP SCH ×2 (09:34→21:54)
[2019-12-22] MEDS: Z GUARD REMEDY PASTE 57 GM TUBE TOP SCH ×2 (09:35→21:54)
[2019-12-22] MEDS: VITAMINS A AND D OINT TP SCH ×3 (09:35→21:54)
--- NOTE | 2019-12-22 19:16 | NUR ---
Seen and examined by Fanny No NP with no new order.
[2019-12-22 20:00] VITALS: BP 133/77
[2019-12-22 20:08] VITALS: BP 146/80
[2019-12-22] MEDS: MIRALAX 17 GM POWD.PACK GT SCH (21:51)
[2019-12-23] MEDS: OMEPRAZOLE 20 MG CAPSULE.DR GT SCH ×2 (06:05→21:00)
[2019-12-23 07:22] VITALS: BP 130/66
[2019-12-23] MEDS: ALBUTEROL SULFATE 2.5 MG/ 0.5 ML NEBU NEB SCH ×4 (08:10→19:00)
[2019-12-23] MEDS: IPRATROPIUM BROMIDE 0.5 MG/2.5 ML NEBU NEB SCH ×4 (08:10→19:00)
[2019-12-23] MEDS: HYDROGEN PEROXIDE 3% 118 ML BOTTLE TOP SCH ×2 (09:00→21:10)
[2019-12-23] MEDS: CETAPHIL TOP SCH ×2 (09:32→21:00)
[2019-12-23] MEDS: Z GUARD REMEDY PASTE 57 GM TUBE TOP SCH ×2 (09:32→21:00)
[2019-12-23] MEDS: PROTEIN SUPPLEMENT (PROSTAT) 30 ML LIQUID GT SCH ×2 (09:32→21:00)
[2019-12-23] MEDS: VITAMINS A AND D OINT TP SCH ×3 (09:32→21:00)
[2019-12-23] MEDS: CHOLECALCIFEROL 400 UNITS TABLET GT SCH ×2 (09:34→21:00)
[2019-12-23] MEDS: PHENYTOIN 100 MG/4 ML UDC GT SCH ×2 (09:35→21:00)
[2019-12-23] MEDS: PHENOBARBITAL 30 MG/7.5 ML LIQUID UDC GT SCH ×2 (09:38→21:00)
[2019-12-23] MEDS: JEVITY 1.2 1000 ML LIQUID GT PRN (14:46)
--- NOTE | 2019-12-23 19:12 | NUR ---
CALLED RESPONSIBLE ALLIANCE PARTY, Sylvester PINTO ON [phone] AND INFORMED HER OF POSSIBLE COVID-19 EXPOSURE ON THE SUBACUTE UNIT AND THE FOLLOW UP TESTING PLAN FOR THE NEXT 14 DAYS, MANDATED BY [facility] REGULATIONS. ALSO NOTIFIED Sylvester THAT NURSING WILL CALL HIM WITH THE RESULT IT BECOMES AVAILABLE. Sylvester EXPRESSED UNDERSTANDING.
[2019-12-23 20:00] VITALS: BP 107/68
[2019-12-23] MEDS: MIRALAX 17 GM POWD.PACK GT SCH (21:00)
--- NOTE | 2019-12-24 01:02 | NUR ---
Patient is afebrile, no respiratory symptoms or distress noted, will continue monitor.
[2019-12-24] MEDS: OMEPRAZOLE 20 MG CAPSULE.DR GT SCH ×2 (05:45→21:00)
[2019-12-24] MEDS: IPRATROPIUM BROMIDE 0.5 MG/2.5 ML NEBU NEB SCH ×4 (07:32→19:55)
[2019-12-24] MEDS: ALBUTEROL SULFATE 2.5 MG/ 0.5 ML NEBU NEB SCH ×4 (07:33→19:55)
[2019-12-24 07:36] VITALS: BP 120/74
[2019-12-24] MEDS: PHENOBARBITAL 30 MG/7.5 ML LIQUID UDC GT SCH ×2 (08:01→20:59)
[2019-12-24] MEDS: PHENYTOIN 100 MG/4 ML UDC GT SCH ×2 (08:01→20:59)
[2019-12-24] MEDS: CHOLECALCIFEROL 400 UNITS TABLET GT SCH ×2 (08:03→21:00)
[2019-12-24] MEDS: VITAMINS A AND D OINT TP SCH ×3 (08:03→21:00)
[2019-12-24] MEDS: Z GUARD REMEDY PASTE 57 GM TUBE TOP SCH ×2 (08:03→21:00)
[2019-12-24] MEDS: CETAPHIL TOP SCH ×2 (08:03→21:00)
[2019-12-24] MEDS: PROTEIN SUPPLEMENT (PROSTAT) 30 ML LIQUID GT SCH ×2 (08:03→21:00)
[2019-12-24] MEDS: HYDROGEN PEROXIDE 3% 118 ML BOTTLE TOP SCH ×2 (08:40→21:00)
[2019-12-24] MEDS: JEVITY 1.2 1000 ML LIQUID GT PRN (15:37)
[2019-12-24] MEDS: MIRALAX 17 GM POWD.PACK GT SCH (20:59)
[2019-12-24 22:39] VITALS: BP 117/80
[2019-12-25] MEDS: JEVITY 1.2 1000 ML LIQUID GT PRN ×2 (04:15→23:37)
[2019-12-25] MEDS: OMEPRAZOLE 20 MG CAPSULE.DR GT SCH ×2 (05:33→20:57)
[2019-12-25] MEDS: ALBUTEROL SULFATE 2.5 MG/ 0.5 ML NEBU NEB SCH ×4 (07:06→18:40)
[2019-12-25] MEDS: HYDROGEN PEROXIDE 3% 118 ML BOTTLE TOP SCH ×2 (07:06→21:00)
[2019-12-25] MEDS: IPRATROPIUM BROMIDE 0.5 MG/2.5 ML NEBU NEB SCH ×4 (07:06→18:40)
[2019-12-25 07:50] VITALS: BP 158/89
[2019-12-25] MEDS: PHENYTOIN 100 MG/4 ML UDC GT SCH ×2 (09:15→20:57)
[2019-12-25] MEDS: CETAPHIL TOP SCH ×2 (09:15→20:57)
[2019-12-25] MEDS: PHENOBARBITAL 30 MG/7.5 ML LIQUID UDC GT SCH ×2 (09:15→20:57)
[2019-12-25] MEDS: VITAMINS A AND D OINT TP SCH ×3 (09:15→20:57)
[2019-12-25] MEDS: Z GUARD REMEDY PASTE 57 GM TUBE TOP SCH ×2 (09:15→20:57)
[2019-12-25] MEDS: PROTEIN SUPPLEMENT (PROSTAT) 30 ML LIQUID GT SCH ×2 (09:15→20:57)
[2019-12-25] MEDS: CHOLECALCIFEROL 400 UNITS TABLET GT SCH ×2 (09:15→20:57)
[2019-12-25] MEDS: MIRALAX 17 GM POWD.PACK GT SCH (20:57)
[2019-12-25 22:53] VITALS: BP 131/74
[2019-12-26] MEDS: OMEPRAZOLE 20 MG CAPSULE.DR GT SCH ×2 (05:34→20:58)
[2019-12-26 07:39] VITALS: BP 146/80
[2019-12-26] MEDS: IPRATROPIUM BROMIDE 0.5 MG/2.5 ML NEBU NEB SCH ×4 (07:40→18:36)
[2019-12-26] MEDS: ALBUTEROL SULFATE 2.5 MG/ 0.5 ML NEBU NEB SCH ×4 (07:41→18:36)
[2019-12-26] MEDS: PHENYTOIN 100 MG/4 ML UDC GT SCH ×2 (08:01→20:58)
[2019-12-26] MEDS: PHENOBARBITAL 30 MG/7.5 ML LIQUID UDC GT SCH ×2 (08:01→20:58)
[2019-12-26] MEDS: Z GUARD REMEDY PASTE 57 GM TUBE TOP SCH ×2 (08:02→20:59)
[2019-12-26] MEDS: CHOLECALCIFEROL 400 UNITS TABLET GT SCH ×2 (08:02→20:59)
[2019-12-26] MEDS: PROTEIN SUPPLEMENT (PROSTAT) 30 ML LIQUID GT SCH ×2 (08:02→20:59)
[2019-12-26] MEDS: CETAPHIL TOP SCH ×2 (08:02→20:59)
[2019-12-26] MEDS: VITAMINS A AND D OINT TP SCH ×3 (08:02→20:59)
[2019-12-26] MEDS: HYDROGEN PEROXIDE 3% 118 ML BOTTLE TOP SCH ×2 (09:11→21:20)
[2019-12-26] MEDS: JEVITY 1.2 1000 ML LIQUID GT PRN (17:27)
[2019-12-26] MEDS: MIRALAX 17 GM POWD.PACK GT SCH (20:58)
[2019-12-26 22:42] VITALS: BP 133/73
[2019-12-27] MEDS: OMEPRAZOLE 20 MG CAPSULE.DR GT SCH ×2 (05:51→21:27)
[2019-12-27] MEDS: IPRATROPIUM BROMIDE 0.5 MG/2.5 ML NEBU NEB SCH ×4 (07:17→19:00)
[2019-12-27] MEDS: ALBUTEROL SULFATE 2.5 MG/ 0.5 ML NEBU NEB SCH ×4 (07:17→19:00)
[2019-12-27] MEDS: HYDROGEN PEROXIDE 3% 118 ML BOTTLE TOP SCH ×2 (07:17→21:20)
[2019-12-27 07:31] VITALS: BP 123/78
[2019-12-27] MEDS: PHENYTOIN 100 MG/4 ML UDC GT SCH ×2 (08:28→21:26)
[2019-12-27] MEDS: PROTEIN SUPPLEMENT (PROSTAT) 30 ML LIQUID GT SCH ×2 (08:28→21:28)
[2019-12-27] MEDS: CHOLECALCIFEROL 400 UNITS TABLET GT SCH ×2 (08:28→21:28)
[2019-12-27] MEDS: CETAPHIL TOP SCH ×2 (08:29→21:28)
[2019-12-27] MEDS: Z GUARD REMEDY PASTE 57 GM TUBE TOP SCH ×2 (08:29→21:28)
[2019-12-27] MEDS: VITAMINS A AND D OINT TP SCH ×3 (08:29→21:30)
[2019-12-27] MEDS: PHENOBARBITAL 30 MG/7.5 ML LIQUID UDC GT SCH ×2 (08:30→21:33)
[2019-12-27] MEDS: JEVITY 1.2 1000 ML LIQUID GT PRN (18:22)
[2019-12-27] MEDS: BISACODYL 10 MG SUPP.RECT RC PRN (18:22)
[2019-12-27] MEDS: BETAMET DP 0.05% AUGM CR 15 GM CREAM.GM. TP PRN (18:23)
[2019-12-27] MEDS: CLOTRIMAZOLE 1% CREAM 30 GM TUBE TP PRN (18:23)
[2019-12-27 20:29] VITALS: BP 139/86
[2019-12-27] MEDS: MIRALAX 17 GM POWD.PACK GT SCH (21:27)
[2019-12-27 23:25] VITALS: BP 139/86
--- NOTE | 2019-12-28 01:22 | NUR ---
Jose Ramon from the Lab called about the COVID-19 test that was done on Friday had resulted and the patient's result is negative.
[2019-12-28] MEDS: OMEPRAZOLE 20 MG CAPSULE.DR GT SCH ×2 (06:29→21:00)
[2019-12-28] MEDS: HYDROGEN PEROXIDE 3% 118 ML BOTTLE TOP SCH ×2 (07:21→20:43)
[2019-12-28] MEDS: IPRATROPIUM BROMIDE 0.5 MG/2.5 ML NEBU NEB SCH ×4 (07:21→19:07)
[2019-12-28] MEDS: ALBUTEROL SULFATE 2.5 MG/ 0.5 ML NEBU NEB SCH ×4 (07:21→19:07)
[2019-12-28 07:23] VITALS: BP 119/74
[2019-12-28] MEDS: PROTEIN SUPPLEMENT (PROSTAT) 30 ML LIQUID GT SCH ×2 (08:56→21:00)
[2019-12-28] MEDS: CETAPHIL TOP SCH ×2 (08:57→21:01)
[2019-12-28] MEDS: CHOLECALCIFEROL 400 UNITS TABLET GT SCH ×2 (08:57→21:01)
[2019-12-28] MEDS: Z GUARD REMEDY PASTE 57 GM TUBE TOP SCH ×2 (08:57→21:01)
[2019-12-28] MEDS: VITAMINS A AND D OINT TP SCH ×3 (08:57→21:01)
[2019-12-28] MEDS: PHENYTOIN 100 MG/4 ML UDC GT SCH ×2 (09:02→20:59)
[2019-12-28] MEDS: PHENOBARBITAL 30 MG/7.5 ML LIQUID UDC GT SCH ×2 (09:02→21:00)
[2019-12-28] MEDS: JEVITY 1.2 1000 ML LIQUID GT PRN (18:10)
--- NOTE | 2019-12-28 18:21 | NUR ---
BJ pt's moter informed COVID-19 test result was negative.
[2019-12-28 20:14] VITALS: BP 137/89
[2019-12-28] MEDS: MIRALAX 17 GM POWD.PACK GT SCH (20:59)
[2019-12-29] MEDS: OMEPRAZOLE 20 MG CAPSULE.DR GT SCH ×2 (05:59→21:05)
--- NOTE | 2019-12-29 06:19 | NUR ---
[facility] n.p. was in, no new orders.
[2019-12-29 07:28] VITALS: BP 127/77
[2019-12-29] MEDS: IPRATROPIUM BROMIDE 0.5 MG/2.5 ML NEBU NEB SCH ×4 (07:47→18:50)
[2019-12-29] MEDS: ALBUTEROL SULFATE 2.5 MG/ 0.5 ML NEBU NEB SCH ×4 (07:47→18:50)
[2019-12-29] MEDS: HYDROGEN PEROXIDE 3% 118 ML BOTTLE TOP SCH ×2 (08:16→21:30)
[2019-12-29] MEDS: CETAPHIL TOP SCH ×2 (09:05→21:05)
[2019-12-29] MEDS: CHOLECALCIFEROL 400 UNITS TABLET GT SCH ×2 (09:05→21:05)
[2019-12-29] MEDS: PHENYTOIN 100 MG/4 ML UDC GT SCH ×2 (09:05→21:05)
[2019-12-29] MEDS: Z GUARD REMEDY PASTE 57 GM TUBE TOP SCH ×2 (09:05→21:06)
[2019-12-29] MEDS: VITAMINS A AND D OINT TP SCH ×3 (09:05→21:06)
[2019-12-29] MEDS: PHENOBARBITAL 30 MG/7.5 ML LIQUID UDC GT SCH ×2 (09:05→21:05)
[2019-12-29] MEDS: PROTEIN SUPPLEMENT (PROSTAT) 30 ML LIQUID GT SCH ×2 (09:05→21:05)
[2019-12-29] MEDS: JEVITY 1.2 1000 ML LIQUID GT PRN (17:55)
[2019-12-29 20:25] VITALS: BP 157/88
[2019-12-29] MEDS: MIRALAX 17 GM POWD.PACK GT SCH (21:05)
[2019-12-30] MEDS: OMEPRAZOLE 20 MG CAPSULE.DR GT SCH ×2 (05:32→21:29)
[2019-12-30] MEDS: ALBUTEROL SULFATE 2.5 MG/ 0.5 ML NEBU NEB SCH ×4 (07:10→18:40)
[2019-12-30] MEDS: IPRATROPIUM BROMIDE 0.5 MG/2.5 ML NEBU NEB SCH ×4 (07:10→18:40)
[2019-12-30 08:02] VITALS: BP 128/84
[2019-12-30] MEDS: PHENYTOIN 100 MG/4 ML UDC GT SCH ×2 (08:40→21:28)
[2019-12-30] MEDS: PHENOBARBITAL 30 MG/7.5 ML LIQUID UDC GT SCH ×2 (08:40→21:29)
[2019-12-30] MEDS: CETAPHIL TOP SCH ×2 (08:41→21:30)
[2019-12-30] MEDS: CHOLECALCIFEROL 400 UNITS TABLET GT SCH ×2 (08:41→21:29)
[2019-12-30] MEDS: PROTEIN SUPPLEMENT (PROSTAT) 30 ML LIQUID GT SCH ×2 (08:41→21:29)
[2019-12-30] MEDS: VITAMINS A AND D OINT TP SCH ×3 (08:41→21:30)
[2019-12-30] MEDS: Z GUARD REMEDY PASTE 57 GM TUBE TOP SCH ×2 (08:41→21:30)
[2019-12-30] MEDS: HYDROGEN PEROXIDE 3% 118 ML BOTTLE TOP SCH ×2 (09:50→21:31)
[2019-12-30] MEDS: JEVITY 1.2 1000 ML LIQUID GT PRN (17:39)
--- NOTE | 2019-12-30 18:35 | NUR ---
SEEN BY DR. MONSON AND WITH NNO.
[2019-12-30 20:00] VITALS: BP 137/80
[2019-12-30] MEDS: MIRALAX 17 GM POWD.PACK GT SCH (21:28)
[2019-12-31] MEDS: OMEPRAZOLE 20 MG CAPSULE.DR GT SCH ×2 (06:03→20:06)
[2019-12-31] MEDS: IPRATROPIUM BROMIDE 0.5 MG/2.5 ML NEBU NEB SCH ×4 (07:14→19:15)
[2019-12-31] MEDS: ALBUTEROL SULFATE 2.5 MG/ 0.5 ML NEBU NEB SCH ×4 (07:14→19:15)
[2019-12-31 08:04] VITALS: BP 121/73
[2019-12-31] MEDS: CETAPHIL TOP SCH ×2 (08:17→20:06)
[2019-12-31] MEDS: PHENYTOIN 100 MG/4 ML UDC GT SCH ×2 (08:17→20:06)
[2019-12-31] MEDS: PHENOBARBITAL 30 MG/7.5 ML LIQUID UDC GT SCH ×2 (08:17→20:06)
[2019-12-31] MEDS: CHOLECALCIFEROL 400 UNITS TABLET GT SCH ×2 (08:17→20:06)
[2019-12-31] MEDS: PROTEIN SUPPLEMENT (PROSTAT) 30 ML LIQUID GT SCH ×2 (08:17→20:06)
[2019-12-31] MEDS: Z GUARD REMEDY PASTE 57 GM TUBE TOP SCH ×2 (08:17→20:06)
[2019-12-31] MEDS: VITAMINS A AND D OINT TP SCH ×3 (08:20→20:06)
[2019-12-31] MEDS: HYDROGEN PEROXIDE 3% 118 ML BOTTLE TOP SCH ×2 (09:11→20:26)
[2019-12-31] MEDS: JEVITY 1.2 1000 ML LIQUID GT PRN (12:07)
[2019-12-31 20:06] VITALS: BP 134/85
[2019-12-31] MEDS: MIRALAX 17 GM POWD.PACK GT SCH (20:06)
[2020-01-01] MEDS: OMEPRAZOLE 20 MG CAPSULE.DR GT SCH ×2 (05:52→20:06)
[2020-01-01] MEDS: IPRATROPIUM BROMIDE 0.5 MG/2.5 ML NEBU NEB SCH ×4 (07:22→19:01)
[2020-01-01] MEDS: HYDROGEN PEROXIDE 3% 118 ML BOTTLE TOP SCH ×2 (07:22→21:44)
[2020-01-01] MEDS: ALBUTEROL SULFATE 2.5 MG/ 0.5 ML NEBU NEB SCH ×4 (07:22→19:01)
[2020-01-01 07:57] VITALS: BP 127/69
[2020-01-01] MEDS: PHENOBARBITAL 30 MG/7.5 ML LIQUID UDC GT SCH ×2 (09:07→20:06)
[2020-01-01] MEDS: PHENYTOIN 100 MG/4 ML UDC GT SCH ×2 (09:07→20:06)
[2020-01-01] MEDS: CETAPHIL TOP SCH ×2 (09:08→20:22)
[2020-01-01] MEDS: Z GUARD REMEDY PASTE 57 GM TUBE TOP SCH ×2 (09:08→20:22)
[2020-01-01] MEDS: PROTEIN SUPPLEMENT (PROSTAT) 30 ML LIQUID GT SCH ×2 (09:08→20:06)
[2020-01-01] MEDS: VITAMINS A AND D OINT TP SCH ×3 (09:08→20:22)
[2020-01-01] MEDS: CHOLECALCIFEROL 400 UNITS TABLET GT SCH ×2 (09:08→20:06)
[2020-01-01] MEDS: MIRALAX 17 GM POWD.PACK GT SCH (20:06)
[2020-01-01 20:11] VITALS: BP 139/83
[2020-01-02] MEDS: OMEPRAZOLE 20 MG CAPSULE.DR GT SCH ×2 (05:35→21:03)
[2020-01-02] MEDS: ALBUTEROL SULFATE 2.5 MG/ 0.5 ML NEBU NEB SCH ×4 (07:19→19:02)
[2020-01-02] MEDS: IPRATROPIUM BROMIDE 0.5 MG/2.5 ML NEBU NEB SCH ×4 (07:19→19:02)
[2020-01-02] MEDS: HYDROGEN PEROXIDE 3% 118 ML BOTTLE TOP SCH ×2 (07:20→21:10)
[2020-01-02 08:02] VITALS: BP 114/72
[2020-01-02] MEDS: PHENYTOIN 100 MG/4 ML UDC GT SCH ×2 (08:28→21:03)
[2020-01-02] MEDS: PHENOBARBITAL 30 MG/7.5 ML LIQUID UDC GT SCH ×2 (08:30→21:03)
[2020-01-02] MEDS: PROTEIN SUPPLEMENT (PROSTAT) 30 ML LIQUID GT SCH ×2 (08:30→21:03)
[2020-01-02] MEDS: CHOLECALCIFEROL 400 UNITS TABLET GT SCH ×2 (08:30→21:03)
[2020-01-02] MEDS: Z GUARD REMEDY PASTE 57 GM TUBE TOP SCH ×2 (08:31→21:05)
[2020-01-02] MEDS: VITAMINS A AND D OINT TP SCH ×3 (09:00→21:05)
[2020-01-02] MEDS: CETAPHIL TOP SCH ×2 (09:00→21:05)
[2020-01-02 20:55] VITALS: BP 128/70
[2020-01-02] MEDS: MIRALAX 17 GM POWD.PACK GT SCH (21:03)
[2020-01-03] MEDS: JEVITY 1.2 1000 ML LIQUID GT PRN (03:55)
[2020-01-03] MEDS: OMEPRAZOLE 20 MG CAPSULE.DR GT SCH ×2 (05:53→21:04)
[2020-01-03] MEDS: IPRATROPIUM BROMIDE 0.5 MG/2.5 ML NEBU NEB SCH ×4 (07:20→18:40)
[2020-01-03] MEDS: ALBUTEROL SULFATE 2.5 MG/ 0.5 ML NEBU NEB SCH ×4 (07:20→18:40)
[2020-01-03 07:30] VITALS: BP 128/82
[2020-01-03] MEDS: PHENOBARBITAL 30 MG/7.5 ML LIQUID UDC GT SCH ×2 (08:16→21:04)
[2020-01-03] MEDS: PHENYTOIN 100 MG/4 ML UDC GT SCH ×2 (08:16→21:04)
[2020-01-03] MEDS: PROTEIN SUPPLEMENT (PROSTAT) 30 ML LIQUID GT SCH ×2 (08:19→21:04)
[2020-01-03] MEDS: CHOLECALCIFEROL 400 UNITS TABLET GT SCH ×2 (08:19→21:04)
[2020-01-03] MEDS: VITAMINS A AND D OINT TP SCH ×3 (08:20→21:04)
[2020-01-03] MEDS: Z GUARD REMEDY PASTE 57 GM TUBE TOP SCH ×2 (08:20→21:04)
[2020-01-03] MEDS: CETAPHIL TOP SCH ×2 (08:20→21:04)
[2020-01-03] MEDS: HYDROGEN PEROXIDE 3% 118 ML BOTTLE TOP SCH ×2 (08:40→21:29)
[2020-01-03 20:32] VITALS: BP 132/80
[2020-01-03] MEDS: MIRALAX 17 GM POWD.PACK GT SCH (21:04)
[2020-01-04] MEDS: JEVITY 1.2 1000 ML LIQUID GT PRN (03:33)
[2020-01-04] MEDS: OMEPRAZOLE 20 MG CAPSULE.DR GT SCH ×2 (05:38→20:43)
[2020-01-04] MEDS: ALBUTEROL SULFATE 2.5 MG/ 0.5 ML NEBU NEB SCH ×4 (07:18→18:45)
[2020-01-04] MEDS: IPRATROPIUM BROMIDE 0.5 MG/2.5 ML NEBU NEB SCH ×4 (07:18→18:45)
[2020-01-04] MEDS: HYDROGEN PEROXIDE 3% 118 ML BOTTLE TOP SCH ×2 (07:18→21:12)
[2020-01-04 07:52] VITALS: BP 134/82
[2020-01-04] MEDS: PHENYTOIN 100 MG/4 ML UDC GT SCH ×2 (08:51→20:43)
[2020-01-04] MEDS: PROTEIN SUPPLEMENT (PROSTAT) 30 ML LIQUID GT SCH ×2 (08:55→20:43)
[2020-01-04] MEDS: PHENOBARBITAL 30 MG/7.5 ML LIQUID UDC GT SCH ×2 (08:55→20:43)
[2020-01-04] MEDS: CHOLECALCIFEROL 400 UNITS TABLET GT SCH ×2 (08:58→20:43)
[2020-01-04] MEDS: Z GUARD REMEDY PASTE 57 GM TUBE TOP SCH ×2 (08:59→20:44)
[2020-01-04] MEDS: CETAPHIL TOP SCH ×2 (08:59→20:43)
[2020-01-04] MEDS: VITAMINS A AND D OINT TP SCH ×3 (08:59→20:44)
[2020-01-04 20:40] VITALS: BP 137/80
[2020-01-04] MEDS: MIRALAX 17 GM POWD.PACK GT SCH (20:43)
[2020-01-05] MEDS: JEVITY 1.2 1000 ML LIQUID GT PRN (02:16)
[2020-01-05] MEDS: OMEPRAZOLE 20 MG CAPSULE.DR GT SCH ×2 (05:52→21:27)
[2020-01-05 07:25] VITALS: BP 111/69
[2020-01-05] MEDS: ALBUTEROL SULFATE 2.5 MG/ 0.5 ML NEBU NEB SCH ×4 (07:26→19:26)
[2020-01-05] MEDS: IPRATROPIUM BROMIDE 0.5 MG/2.5 ML NEBU NEB SCH ×4 (07:26→19:26)
[2020-01-05] MEDS: HYDROGEN PEROXIDE 3% 118 ML BOTTLE TOP SCH ×2 (08:06→21:45)
[2020-01-05] MEDS: Z GUARD REMEDY PASTE 57 GM TUBE TOP SCH ×2 (08:34→21:28)
[2020-01-05] MEDS: PHENYTOIN 100 MG/4 ML UDC GT SCH ×2 (08:34→21:24)
[2020-01-05] MEDS: PHENOBARBITAL 30 MG/7.5 ML LIQUID UDC GT SCH ×2 (08:34→21:27)
[2020-01-05] MEDS: PROTEIN SUPPLEMENT (PROSTAT) 30 ML LIQUID GT SCH ×2 (08:34→21:27)
[2020-01-05] MEDS: VITAMINS A AND D OINT TP SCH ×3 (08:34→21:28)
[2020-01-05] MEDS: CETAPHIL TOP SCH ×2 (08:34→21:28)
[2020-01-05] MEDS: CHOLECALCIFEROL 400 UNITS TABLET GT SCH ×2 (08:34→21:28)
--- NOTE | 2020-01-05 16:00 | NUR ---
Covid 19 test done today.per [facility] requirement.
[2020-01-05 20:52] VITALS: BP 113/77
[2020-01-05] MEDS: MIRALAX 17 GM POWD.PACK GT SCH (21:25)
[2020-01-06] MEDS: OMEPRAZOLE 20 MG CAPSULE.DR GT SCH ×2 (06:48→21:26)
[2020-01-06] MEDS: ALBUTEROL SULFATE 2.5 MG/ 0.5 ML NEBU NEB SCH ×4 (07:10→19:03)
[2020-01-06] MEDS: IPRATROPIUM BROMIDE 0.5 MG/2.5 ML NEBU NEB SCH ×4 (07:10→19:03)
[2020-01-06 07:43] VITALS: BP 125/85
[2020-01-06] MEDS: CHOLECALCIFEROL 400 UNITS TABLET GT SCH ×2 (08:53→21:26)
[2020-01-06] MEDS: PROTEIN SUPPLEMENT (PROSTAT) 30 ML LIQUID GT SCH ×2 (08:53→21:26)
[2020-01-06] MEDS: PHENYTOIN 100 MG/4 ML UDC GT SCH ×2 (08:53→21:26)
[2020-01-06] MEDS: PHENOBARBITAL 30 MG/7.5 ML LIQUID UDC GT SCH ×2 (08:53→21:26)
[2020-01-06] MEDS: CETAPHIL TOP SCH ×2 (08:53→21:26)
[2020-01-06] MEDS: Z GUARD REMEDY PASTE 57 GM TUBE TOP SCH ×2 (08:54→21:26)
[2020-01-06] MEDS: VITAMINS A AND D OINT TP SCH ×3 (08:54→21:27)
[2020-01-06] MEDS: HYDROGEN PEROXIDE 3% 118 ML BOTTLE TOP SCH ×2 (09:15→20:52)
[2020-01-06] MEDS: MIRALAX 17 GM POWD.PACK GT SCH (21:26)
[2020-01-06 22:12] VITALS: BP 133/78
[2020-01-07] MEDS: JEVITY 1.2 1000 ML LIQUID GT PRN (01:34)
[2020-01-07] MEDS: OMEPRAZOLE 20 MG CAPSULE.DR GT SCH ×2 (05:33→21:30)
[2020-01-07 07:29] VITALS: BP 140/86
[2020-01-07] MEDS: ALBUTEROL SULFATE 2.5 MG/ 0.5 ML NEBU NEB SCH ×4 (07:36→19:00)
[2020-01-07] MEDS: IPRATROPIUM BROMIDE 0.5 MG/2.5 ML NEBU NEB SCH ×4 (07:36→19:00)
[2020-01-07] MEDS: PHENOBARBITAL 30 MG/7.5 ML LIQUID UDC GT SCH ×2 (08:41→21:30)
[2020-01-07] MEDS: PHENYTOIN 100 MG/4 ML UDC GT SCH ×2 (08:41→21:30)
[2020-01-07] MEDS: VITAMINS A AND D OINT TP SCH ×3 (08:42→21:31)
[2020-01-07] MEDS: CETAPHIL TOP SCH ×2 (08:42→21:30)
[2020-01-07] MEDS: CHOLECALCIFEROL 400 UNITS TABLET GT SCH ×2 (08:42→21:30)
[2020-01-07] MEDS: PROTEIN SUPPLEMENT (PROSTAT) 30 ML LIQUID GT SCH ×2 (08:42→21:30)
[2020-01-07] MEDS: Z GUARD REMEDY PASTE 57 GM TUBE TOP SCH ×2 (08:42→21:31)
[2020-01-07] MEDS: HYDROGEN PEROXIDE 3% 118 ML BOTTLE TOP SCH ×2 (09:00→21:00)
[2020-01-07] MEDS: MIRALAX 17 GM POWD.PACK GT SCH (21:30)
[2020-01-07 22:19] VITALS: BP 115/75
[2020-01-08] MEDS: JEVITY 1.2 1000 ML LIQUID GT PRN ×2 (00:22→19:13)
[2020-01-08] MEDS: OMEPRAZOLE 20 MG CAPSULE.DR GT SCH ×2 (05:36→21:11)
[2020-01-08] MEDS: IPRATROPIUM BROMIDE 0.5 MG/2.5 ML NEBU NEB SCH ×4 (07:22→18:40)
[2020-01-08] MEDS: ALBUTEROL SULFATE 2.5 MG/ 0.5 ML NEBU NEB SCH ×4 (07:22→18:40)
[2020-01-08 07:34] VITALS: BP 121/74
[2020-01-08] MEDS: PROTEIN SUPPLEMENT (PROSTAT) 30 ML LIQUID GT SCH ×2 (08:11→21:11)
[2020-01-08] MEDS: CETAPHIL TOP SCH ×2 (08:11→21:11)
[2020-01-08] MEDS: VITAMINS A AND D OINT TP SCH ×3 (08:11→21:11)
[2020-01-08] MEDS: CHOLECALCIFEROL 400 UNITS TABLET GT SCH ×2 (08:11→21:11)
[2020-01-08] MEDS: PHENOBARBITAL 30 MG/7.5 ML LIQUID UDC GT SCH ×2 (08:11→21:11)
[2020-01-08] MEDS: PHENYTOIN 100 MG/4 ML UDC GT SCH ×2 (08:11→21:11)
[2020-01-08] MEDS: Z GUARD REMEDY PASTE 57 GM TUBE TOP SCH ×2 (08:11→21:11)
[2020-01-08] MEDS: HYDROGEN PEROXIDE 3% 118 ML BOTTLE TOP SCH ×2 (08:40→20:26)
[2020-01-08] MEDS: MIRALAX 17 GM POWD.PACK GT SCH (21:11)
[2020-01-08 22:32] VITALS: BP 130/68
[2020-01-09] MEDS: OMEPRAZOLE 20 MG CAPSULE.DR GT SCH ×2 (05:33→21:00)
[2020-01-09] MEDS: ALBUTEROL SULFATE 2.5 MG/ 0.5 ML NEBU NEB SCH ×5 (07:12→18:45)
[2020-01-09] MEDS: IPRATROPIUM BROMIDE 0.5 MG/2.5 ML NEBU NEB SCH ×5 (07:12→18:45)
[2020-01-09 07:47] VITALS: BP 122/80
[2020-01-09] MEDS: CETAPHIL TOP SCH ×2 (08:34→21:00)
[2020-01-09] MEDS: VITAMINS A AND D OINT TP SCH ×3 (08:34→21:00)
[2020-01-09] MEDS: Z GUARD REMEDY PASTE 57 GM TUBE TOP SCH ×2 (08:34→21:00)
[2020-01-09] MEDS: CHOLECALCIFEROL 400 UNITS TABLET GT SCH ×2 (08:34→21:00)
[2020-01-09] MEDS: PHENYTOIN 100 MG/4 ML UDC GT SCH ×2 (08:34→21:00)
[2020-01-09] MEDS: PHENOBARBITAL 30 MG/7.5 ML LIQUID UDC GT SCH ×2 (08:34→21:00)
[2020-01-09] MEDS: PROTEIN SUPPLEMENT (PROSTAT) 30 ML LIQUID GT SCH ×2 (08:34→21:00)
[2020-01-09] MEDS: HYDROGEN PEROXIDE 3% 118 ML BOTTLE TOP SCH ×2 (09:19→21:13)
[2020-01-09] MEDS: JEVITY 1.2 1000 ML LIQUID GT PRN (16:57)
[2020-01-09] MEDS: MIRALAX 17 GM POWD.PACK GT SCH (21:00)
[2020-01-09 22:52] VITALS: BP 117/78
[2020-01-10] MEDS: OMEPRAZOLE 20 MG CAPSULE.DR GT SCH ×2 (05:47→21:00)
[2020-01-10] MEDS: IPRATROPIUM BROMIDE 0.5 MG/2.5 ML NEBU NEB SCH ×4 (07:10→19:08)
[2020-01-10] MEDS: ALBUTEROL SULFATE 2.5 MG/ 0.5 ML NEBU NEB SCH ×4 (07:10→19:08)
[2020-01-10 07:35] VITALS: BP 138/81
[2020-01-10] MEDS: PHENYTOIN 100 MG/4 ML UDC GT SCH ×2 (08:18→21:00)
[2020-01-10] MEDS: PHENOBARBITAL 30 MG/7.5 ML LIQUID UDC GT SCH ×2 (08:18→21:00)
[2020-01-10] MEDS: CHOLECALCIFEROL 400 UNITS TABLET GT SCH ×2 (08:19→21:00)
[2020-01-10] MEDS: PROTEIN SUPPLEMENT (PROSTAT) 30 ML LIQUID GT SCH ×2 (08:19→21:00)
[2020-01-10] MEDS: Z GUARD REMEDY PASTE 57 GM TUBE TOP SCH ×2 (08:20→21:00)
[2020-01-10] MEDS: CETAPHIL TOP SCH ×2 (08:20→21:00)
[2020-01-10] MEDS: VITAMINS A AND D OINT TP SCH ×3 (08:21→21:00)
[2020-01-10] MEDS: HYDROGEN PEROXIDE 3% 118 ML BOTTLE TOP SCH ×2 (09:24→21:27)
[2020-01-10] MEDS: JEVITY 1.2 1000 ML LIQUID GT PRN (15:38)
[2020-01-10 20:22] VITALS: BP 122/81
[2020-01-10] MEDS: MIRALAX 17 GM POWD.PACK GT SCH (21:00)
[2020-01-11] MEDS: OMEPRAZOLE 20 MG CAPSULE.DR GT SCH ×2 (05:42→20:53)
[2020-01-11] MEDS: ALBUTEROL SULFATE 2.5 MG/ 0.5 ML NEBU NEB SCH ×4 (07:13→19:02)
[2020-01-11] MEDS: IPRATROPIUM BROMIDE 0.5 MG/2.5 ML NEBU NEB SCH ×4 (07:13→19:02)
[2020-01-11 07:29] VITALS: BP 143/75
[2020-01-11] MEDS: PHENYTOIN 100 MG/4 ML UDC GT SCH ×2 (08:18→20:53)
[2020-01-11] MEDS: PROTEIN SUPPLEMENT (PROSTAT) 30 ML LIQUID GT SCH ×2 (08:18→20:53)
[2020-01-11] MEDS: PHENOBARBITAL 30 MG/7.5 ML LIQUID UDC GT SCH ×2 (08:18→20:53)
[2020-01-11] MEDS: Z GUARD REMEDY PASTE 57 GM TUBE TOP SCH ×2 (08:19→20:53)
[2020-01-11] MEDS: CHOLECALCIFEROL 400 UNITS TABLET GT SCH ×2 (08:19→20:53)
[2020-01-11] MEDS: VITAMINS A AND D OINT TP SCH ×3 (08:19→20:53)
[2020-01-11] MEDS: CETAPHIL TOP SCH ×2 (08:19→20:53)
[2020-01-11] MEDS: HYDROGEN PEROXIDE 3% 118 ML BOTTLE TOP SCH ×2 (08:41→20:51)
[2020-01-11] MEDS: JEVITY 1.2 1000 ML LIQUID GT PRN (11:13)
--- NOTE | 2020-01-11 15:19 | NUR ---
INTERDISCIPLINARY PLAN OF CARE CONFERENCE was held today. Patient's parents were not available to participate in the meeting. Dr. Hammond and the Interdisciplinary team reviewed the current plan of care in detail. RN reported on the patient's medical condition. No major changes were reported by RN or by other disciplines in patient's condition. See RN IDT conference notes. See also all other disciplines IDT notes and physician's progress notes for additional details.
[2020-01-11 20:17] VITALS: BP 144/82
[2020-01-11] MEDS: MIRALAX 17 GM POWD.PACK GT SCH (20:53)
[2020-01-12] MEDS: OMEPRAZOLE 20 MG CAPSULE.DR GT SCH ×2 (05:50→21:00)
[2020-01-12 07:28] VITALS: BP 141/79
[2020-01-12] MEDS: IPRATROPIUM BROMIDE 0.5 MG/2.5 ML NEBU NEB SCH ×4 (07:28→18:58)
[2020-01-12] MEDS: HYDROGEN PEROXIDE 3% 118 ML BOTTLE TOP SCH ×2 (07:28→18:58)
[2020-01-12] MEDS: ALBUTEROL SULFATE 2.5 MG/ 0.5 ML NEBU NEB SCH ×4 (07:28→18:58)
[2020-01-12] MEDS: PHENOBARBITAL 30 MG/7.5 ML LIQUID UDC GT SCH ×2 (08:16→21:00)
[2020-01-12] MEDS: PHENYTOIN 100 MG/4 ML UDC GT SCH ×2 (08:16→21:00)
[2020-01-12] MEDS: PROTEIN SUPPLEMENT (PROSTAT) 30 ML LIQUID GT SCH ×2 (08:16→21:00)
[2020-01-12] MEDS: Z GUARD REMEDY PASTE 57 GM TUBE TOP SCH ×2 (08:17→21:00)
[2020-01-12] MEDS: CETAPHIL TOP SCH ×2 (08:17→21:00)
[2020-01-12] MEDS: VITAMINS A AND D OINT TP SCH ×3 (08:17→21:00)
[2020-01-12] MEDS: CHOLECALCIFEROL 400 UNITS TABLET GT SCH ×2 (08:17→21:00)
[2020-01-12 19:49] VITALS: BP 143/84
[2020-01-12] MEDS: MIRALAX 17 GM POWD.PACK GT SCH (21:00)
[2020-01-13] MEDS: OMEPRAZOLE 20 MG CAPSULE.DR GT SCH ×2 (06:18→21:33)
[2020-01-13] MEDS: ALBUTEROL SULFATE 2.5 MG/ 0.5 ML NEBU NEB SCH ×4 (07:31→18:40)
[2020-01-13] MEDS: IPRATROPIUM BROMIDE 0.5 MG/2.5 ML NEBU NEB SCH ×4 (07:31→18:40)
[2020-01-13] MEDS: HYDROGEN PEROXIDE 3% 118 ML BOTTLE TOP SCH ×2 (07:31→21:22)
[2020-01-13 07:50] VITALS: BP 139/77
[2020-01-13] MEDS: PHENYTOIN 100 MG/4 ML UDC GT SCH ×2 (08:38→21:33)
[2020-01-13] MEDS: PROTEIN SUPPLEMENT (PROSTAT) 30 ML LIQUID GT SCH ×2 (08:38→21:33)
[2020-01-13] MEDS: PHENOBARBITAL 30 MG/7.5 ML LIQUID UDC GT SCH ×2 (08:38→21:33)
[2020-01-13] MEDS: VITAMINS A AND D OINT TP SCH ×3 (08:38→21:34)
[2020-01-13] MEDS: CHOLECALCIFEROL 400 UNITS TABLET GT SCH ×2 (08:38→21:34)
[2020-01-13] MEDS: CETAPHIL TOP SCH ×2 (08:38→21:34)
[2020-01-13] MEDS: Z GUARD REMEDY PASTE 57 GM TUBE TOP SCH ×2 (08:38→21:34)
[2020-01-13] MEDS: JEVITY 1.2 1000 ML LIQUID GT PRN (10:56)
[2020-01-13 19:58] VITALS: BP 131/82
[2020-01-13] MEDS: MIRALAX 17 GM POWD.PACK GT SCH (21:33)
[2020-01-14] MEDS: OMEPRAZOLE 20 MG CAPSULE.DR GT SCH ×2 (06:17→21:08)
[2020-01-14] MEDS: IPRATROPIUM BROMIDE 0.5 MG/2.5 ML NEBU NEB SCH ×4 (07:05→18:44)
[2020-01-14] MEDS: HYDROGEN PEROXIDE 3% 118 ML BOTTLE TOP SCH ×2 (07:05→18:44)
[2020-01-14] MEDS: ALBUTEROL SULFATE 2.5 MG/ 0.5 ML NEBU NEB SCH ×4 (07:05→18:44)
[2020-01-14 07:27] VITALS: BP 106/67
--- NOTE | 2020-01-14 07:30 | NUR ---
SEEN BY YUE Florez AND WITH KENDALLO.
[2020-01-14] MEDS: VITAMINS A AND D OINT TP SCH ×3 (08:02→21:08)
[2020-01-14] MEDS: PHENYTOIN 100 MG/4 ML UDC GT SCH ×2 (08:02→21:08)
[2020-01-14] MEDS: Z GUARD REMEDY PASTE 57 GM TUBE TOP SCH ×2 (08:02→21:08)
[2020-01-14] MEDS: PROTEIN SUPPLEMENT (PROSTAT) 30 ML LIQUID GT SCH ×2 (08:02→21:08)
[2020-01-14] MEDS: CETAPHIL TOP SCH ×2 (08:02→21:08)
[2020-01-14] MEDS: PHENOBARBITAL 30 MG/7.5 ML LIQUID UDC GT SCH ×2 (08:02→21:08)
[2020-01-14] MEDS: CHOLECALCIFEROL 400 UNITS TABLET GT SCH ×2 (08:02→21:08)
[2020-01-14] MEDS: JEVITY 1.2 1000 ML LIQUID GT PRN (12:14)
[2020-01-14 20:31] VITALS: BP 134/77
[2020-01-14] MEDS: MIRALAX 17 GM POWD.PACK GT SCH (21:08)
[2020-01-15] MEDS: OMEPRAZOLE 20 MG CAPSULE.DR GT SCH ×2 (05:41→21:05)
[2020-01-15] MEDS: HYDROGEN PEROXIDE 3% 118 ML BOTTLE TOP SCH ×2 (07:11→21:28)
[2020-01-15] MEDS: IPRATROPIUM BROMIDE 0.5 MG/2.5 ML NEBU NEB SCH ×4 (07:11→18:40)
[2020-01-15] MEDS: ALBUTEROL SULFATE 2.5 MG/ 0.5 ML NEBU NEB SCH ×4 (07:11→18:40)
[2020-01-15 07:25] VITALS: BP 140/76
[2020-01-15] MEDS: CETAPHIL TOP SCH ×2 (08:17→21:05)
[2020-01-15] MEDS: VITAMINS A AND D OINT TP SCH ×3 (08:17→21:05)
[2020-01-15] MEDS: Z GUARD REMEDY PASTE 57 GM TUBE TOP SCH ×2 (08:17→21:05)
[2020-01-15] MEDS: PROTEIN SUPPLEMENT (PROSTAT) 30 ML LIQUID GT SCH ×2 (08:18→21:05)
[2020-01-15] MEDS: PHENYTOIN 100 MG/4 ML UDC GT SCH ×2 (08:26→21:05)
[2020-01-15] MEDS: PHENOBARBITAL 30 MG/7.5 ML LIQUID UDC GT SCH ×2 (08:27→21:05)
[2020-01-15] MEDS: CHOLECALCIFEROL 400 UNITS TABLET GT SCH ×2 (08:29→21:05)
[2020-01-15] MEDS: JEVITY 1.2 1000 ML LIQUID GT PRN (12:19)
[2020-01-15 20:00] VITALS: BP 119/80
[2020-01-15] MEDS: MIRALAX 17 GM POWD.PACK GT SCH (21:05)
[2020-01-16] MEDS: JEVITY 1.2 1000 ML LIQUID GT PRN (04:20)
[2020-01-16] MEDS: OMEPRAZOLE 20 MG CAPSULE.DR GT SCH ×2 (05:33→20:56)
[2020-01-16] MEDS: ALBUTEROL SULFATE 2.5 MG/ 0.5 ML NEBU NEB SCH ×4 (07:11→18:40)
[2020-01-16] MEDS: IPRATROPIUM BROMIDE 0.5 MG/2.5 ML NEBU NEB SCH ×4 (07:11→18:40)
[2020-01-16] MEDS: HYDROGEN PEROXIDE 3% 118 ML BOTTLE TOP SCH ×2 (07:12→21:20)
[2020-01-16 07:23] VITALS: BP 137/86
[2020-01-16] MEDS: PHENOBARBITAL 30 MG/7.5 ML LIQUID UDC GT SCH ×2 (08:13→20:56)
[2020-01-16] MEDS: CHOLECALCIFEROL 400 UNITS TABLET GT SCH ×2 (08:13→20:56)
[2020-01-16] MEDS: PHENYTOIN 100 MG/4 ML UDC GT SCH ×2 (08:13→20:56)
[2020-01-16] MEDS: PROTEIN SUPPLEMENT (PROSTAT) 30 ML LIQUID GT SCH ×2 (08:13→20:56)
[2020-01-16] MEDS: Z GUARD REMEDY PASTE 57 GM TUBE TOP SCH ×2 (08:14→20:56)
[2020-01-16] MEDS: CETAPHIL TOP SCH ×2 (08:14→20:56)
[2020-01-16] MEDS: VITAMINS A AND D OINT TP SCH ×3 (08:15→20:56)
--- NOTE | 2020-01-16 15:41 | NUR ---
NEW ORDER CARRIED OUT FROM DR. MORE FOR COVID19 TEST PER [facility] REQUIREMENT AND PT'S MOTHER BUT UNABLE TO LEAVE MESSAGE D/T MAILBOX FULL NAD NOT ACCEPTING ANY MESSAGES.
--- NOTE | 2020-01-16 15:52 | NUR ---
PT'S MOTHER CALLED BACK AND AWARE OF ORDERS FOR COVID 19 TEST AND IN AGREEMENT.
[2020-01-16 20:24] VITALS: BP 130/80
[2020-01-16] MEDS: MIRALAX 17 GM POWD.PACK GT SCH (20:56)
[2020-01-17] MEDS: JEVITY 1.2 1000 ML LIQUID GT PRN (04:17)
[2020-01-17] MEDS: OMEPRAZOLE 20 MG CAPSULE.DR GT SCH ×2 (05:39→20:15)
[2020-01-17 07:27] VITALS: BP 126/88
[2020-01-17] MEDS: IPRATROPIUM BROMIDE 0.5 MG/2.5 ML NEBU NEB SCH ×4 (07:32→18:50)
[2020-01-17] MEDS: ALBUTEROL SULFATE 2.5 MG/ 0.5 ML NEBU NEB SCH ×4 (07:32→18:50)
[2020-01-17] MEDS: HYDROGEN PEROXIDE 3% 118 ML BOTTLE TOP SCH ×2 (07:32→21:03)
[2020-01-17] MEDS: PHENYTOIN 100 MG/4 ML UDC GT SCH ×2 (08:20→20:15)
[2020-01-17] MEDS: PHENOBARBITAL 30 MG/7.5 ML LIQUID UDC GT SCH ×2 (08:21→20:15)
[2020-01-17] MEDS: CHOLECALCIFEROL 400 UNITS TABLET GT SCH ×2 (08:21→20:15)
[2020-01-17] MEDS: VITAMINS A AND D OINT TP SCH ×3 (08:21→20:17)
[2020-01-17] MEDS: CETAPHIL TOP SCH ×2 (08:21→20:16)
[2020-01-17] MEDS: PROTEIN SUPPLEMENT (PROSTAT) 30 ML LIQUID GT SCH ×2 (08:21→20:15)
[2020-01-17] MEDS: Z GUARD REMEDY PASTE 57 GM TUBE TOP SCH ×2 (08:21→20:17)
--- NOTE | 2020-01-17 15:31 | NUR ---
PT'S MOTHER WAS NOTIFIED THAT PT. WAS NEGATIVE FOR COVID 19 TEST FROM YESTERDAY.
[2020-01-17] MEDS: MIRALAX 17 GM POWD.PACK GT SCH (20:15)
[2020-01-17 20:33] VITALS: BP 139/81
[2020-01-18] MEDS: OMEPRAZOLE 20 MG CAPSULE.DR GT SCH ×2 (05:32→21:53)
[2020-01-18] MEDS: JEVITY 1.2 1000 ML LIQUID GT PRN (05:35)
[2020-01-18 07:27] VITALS: BP 131/86
[2020-01-18] MEDS: ALBUTEROL SULFATE 2.5 MG/ 0.5 ML NEBU NEB SCH ×4 (08:23→18:40)
[2020-01-18] MEDS: HYDROGEN PEROXIDE 3% 118 ML BOTTLE TOP SCH ×2 (08:24→18:40)
[2020-01-18] MEDS: IPRATROPIUM BROMIDE 0.5 MG/2.5 ML NEBU NEB SCH ×4 (08:24→18:40)
[2020-01-18] MEDS: VITAMINS A AND D OINT TP SCH ×3 (08:54→21:53)
[2020-01-18] MEDS: CETAPHIL TOP SCH ×2 (08:54→21:53)
[2020-01-18] MEDS: PHENOBARBITAL 30 MG/7.5 ML LIQUID UDC GT SCH ×2 (08:54→21:53)
[2020-01-18] MEDS: PROTEIN SUPPLEMENT (PROSTAT) 30 ML LIQUID GT SCH ×2 (08:54→21:53)
[2020-01-18] MEDS: CHOLECALCIFEROL 400 UNITS TABLET GT SCH ×2 (08:54→21:53)
[2020-01-18] MEDS: PHENYTOIN 100 MG/4 ML UDC GT SCH ×2 (08:54→21:53)
[2020-01-18] MEDS: Z GUARD REMEDY PASTE 57 GM TUBE TOP SCH ×2 (08:54→21:53)
[2020-01-18 19:44] VITALS: BP 126/81
[2020-01-18] MEDS: MIRALAX 17 GM POWD.PACK GT SCH (21:53)
[2020-01-19] MEDS: JEVITY 1.2 1000 ML LIQUID GT PRN (03:20)
[2020-01-19] MEDS: OMEPRAZOLE 20 MG CAPSULE.DR GT SCH ×2 (06:15→21:55)
[2020-01-19] MEDS: ALBUTEROL SULFATE 2.5 MG/ 0.5 ML NEBU NEB SCH ×4 (07:16→19:10)
[2020-01-19] MEDS: IPRATROPIUM BROMIDE 0.5 MG/2.5 ML NEBU NEB SCH ×4 (07:16→19:10)
[2020-01-19 07:25] VITALS: BP 129/77
[2020-01-19] MEDS: PHENYTOIN 100 MG/4 ML UDC GT SCH ×2 (08:24→21:54)
[2020-01-19] MEDS: PHENOBARBITAL 30 MG/7.5 ML LIQUID UDC GT SCH ×2 (08:26→21:55)
[2020-01-19] MEDS: PROTEIN SUPPLEMENT (PROSTAT) 30 ML LIQUID GT SCH ×2 (08:26→21:55)
[2020-01-19] MEDS: CHOLECALCIFEROL 400 UNITS TABLET GT SCH ×2 (08:26→21:55)
[2020-01-19] MEDS: VITAMINS A AND D OINT TP SCH ×3 (09:00→21:55)
[2020-01-19] MEDS: CETAPHIL TOP SCH ×2 (09:00→21:55)
[2020-01-19] MEDS: Z GUARD REMEDY PASTE 57 GM TUBE TOP SCH ×2 (09:00→21:55)
[2020-01-19] MEDS: HYDROGEN PEROXIDE 3% 118 ML BOTTLE TOP SCH ×2 (09:16→21:34)
[2020-01-19 19:50] VITALS: BP 130/81
[2020-01-19] MEDS: MIRALAX 17 GM POWD.PACK GT SCH (21:54)
[2020-01-20] MEDS: JEVITY 1.2 1000 ML LIQUID GT PRN (05:05)
[2020-01-20] MEDS: OMEPRAZOLE 20 MG CAPSULE.DR GT SCH ×2 (05:32→21:05)
[2020-01-20 07:28] VITALS: BP 137/83
[2020-01-20] MEDS: HYDROGEN PEROXIDE 3% 118 ML BOTTLE TOP SCH ×2 (07:31→21:17)
[2020-01-20] MEDS: IPRATROPIUM BROMIDE 0.5 MG/2.5 ML NEBU NEB SCH ×4 (07:31→19:14)
[2020-01-20] MEDS: ALBUTEROL SULFATE 2.5 MG/ 0.5 ML NEBU NEB SCH ×4 (07:31→19:14)
[2020-01-20] MEDS: PHENYTOIN 100 MG/4 ML UDC GT SCH ×2 (08:41→21:04)
[2020-01-20] MEDS: PHENOBARBITAL 30 MG/7.5 ML LIQUID UDC GT SCH ×2 (08:42→21:05)
[2020-01-20] MEDS: CETAPHIL TOP SCH ×2 (08:42→21:09)
[2020-01-20] MEDS: PROTEIN SUPPLEMENT (PROSTAT) 30 ML LIQUID GT SCH ×2 (08:42→21:05)
[2020-01-20] MEDS: CHOLECALCIFEROL 400 UNITS TABLET GT SCH ×2 (08:42→21:08)
[2020-01-20] MEDS: Z GUARD REMEDY PASTE 57 GM TUBE TOP SCH ×2 (08:43→21:09)
[2020-01-20] MEDS: VITAMINS A AND D OINT TP SCH ×3 (08:43→21:09)
[2020-01-20 20:31] VITALS: BP 129/81
[2020-01-20] MEDS: MIRALAX 17 GM POWD.PACK GT SCH (21:05)
[2020-01-21] MEDS: JEVITY 1.2 1000 ML LIQUID GT PRN (04:00)
[2020-01-21] MEDS: OMEPRAZOLE 20 MG CAPSULE.DR GT SCH ×2 (05:41→21:12)
[2020-01-21] MEDS: IPRATROPIUM BROMIDE 0.5 MG/2.5 ML NEBU NEB SCH ×4 (07:06→18:44)
[2020-01-21] MEDS: ALBUTEROL SULFATE 2.5 MG/ 0.5 ML NEBU NEB SCH ×4 (07:06→18:44)
[2020-01-21 07:29] VITALS: BP 132/84
[2020-01-21] MEDS: HYDROGEN PEROXIDE 3% 118 ML BOTTLE TOP SCH ×2 (08:35→18:44)
[2020-01-21] MEDS: CHOLECALCIFEROL 400 UNITS TABLET GT SCH ×2 (08:49→21:21)
[2020-01-21] MEDS: PHENYTOIN 100 MG/4 ML UDC GT SCH ×2 (08:49→21:11)
[2020-01-21] MEDS: VITAMINS A AND D OINT TP SCH ×3 (08:49→21:19)
[2020-01-21] MEDS: PHENOBARBITAL 30 MG/7.5 ML LIQUID UDC GT SCH ×2 (08:49→21:12)
[2020-01-21] MEDS: CETAPHIL TOP SCH ×2 (08:49→21:19)
[2020-01-21] MEDS: Z GUARD REMEDY PASTE 57 GM TUBE TOP SCH ×2 (08:49→21:19)
[2020-01-21] MEDS: PROTEIN SUPPLEMENT (PROSTAT) 30 ML LIQUID GT SCH ×2 (08:49→21:15)
[2020-01-21] MEDS: MIRALAX 17 GM POWD.PACK GT SCH (21:12)
[2020-01-21 22:17] VITALS: BP 135/86
[2020-01-22] MEDS: JEVITY 1.2 1000 ML LIQUID GT PRN (04:09)
[2020-01-22] MEDS: OMEPRAZOLE 20 MG CAPSULE.DR GT SCH ×2 (06:13→20:03)
[2020-01-22] MEDS: IPRATROPIUM BROMIDE 0.5 MG/2.5 ML NEBU NEB SCH ×4 (07:08→18:40)
[2020-01-22] MEDS: ALBUTEROL SULFATE 2.5 MG/ 0.5 ML NEBU NEB SCH ×4 (07:08→18:40)
[2020-01-22 07:38] VITALS: BP 138/87
[2020-01-22] MEDS: HYDROGEN PEROXIDE 3% 118 ML BOTTLE TOP SCH ×2 (09:00→21:22)
[2020-01-22] MEDS: PHENOBARBITAL 30 MG/7.5 ML LIQUID UDC GT SCH ×2 (09:39→20:03)
[2020-01-22] MEDS: PHENYTOIN 100 MG/4 ML UDC GT SCH ×2 (09:39→20:03)
[2020-01-22] MEDS: PROTEIN SUPPLEMENT (PROSTAT) 30 ML LIQUID GT SCH ×2 (09:41→20:03)
[2020-01-22] MEDS: CETAPHIL TOP SCH ×2 (09:41→20:03)
[2020-01-22] MEDS: Z GUARD REMEDY PASTE 57 GM TUBE TOP SCH ×2 (09:41→20:03)
[2020-01-22] MEDS: VITAMINS A AND D OINT TP SCH ×3 (09:41→20:03)
[2020-01-22] MEDS: CHOLECALCIFEROL 400 UNITS TABLET GT SCH ×2 (09:41→20:03)
[2020-01-22] MEDS: MIRALAX 17 GM POWD.PACK GT SCH (20:03)
[2020-01-22 22:26] VITALS: BP 115/76
[2020-01-23] MEDS: OMEPRAZOLE 20 MG CAPSULE.DR GT SCH ×2 (05:58→21:29)
[2020-01-23] MEDS: JEVITY 1.2 1000 ML LIQUID GT PRN (06:02)
[2020-01-23] MEDS: ALBUTEROL SULFATE 2.5 MG/ 0.5 ML NEBU NEB SCH ×4 (07:13→18:40)
[2020-01-23] MEDS: IPRATROPIUM BROMIDE 0.5 MG/2.5 ML NEBU NEB SCH ×4 (07:13→18:40)
[2020-01-23 07:47] VITALS: BP 135/80
[2020-01-23] MEDS: PHENYTOIN 100 MG/4 ML UDC GT SCH ×2 (09:10→21:29)
[2020-01-23] MEDS: PHENOBARBITAL 30 MG/7.5 ML LIQUID UDC GT SCH ×2 (09:10→21:29)
[2020-01-23] MEDS: CHOLECALCIFEROL 400 UNITS TABLET GT SCH ×2 (09:11→21:29)
[2020-01-23] MEDS: CETAPHIL TOP SCH ×2 (09:11→21:29)
[2020-01-23] MEDS: PROTEIN SUPPLEMENT (PROSTAT) 30 ML LIQUID GT SCH ×2 (09:11→21:29)
[2020-01-23] MEDS: VITAMINS A AND D OINT TP SCH ×3 (09:12→21:29)
[2020-01-23] MEDS: Z GUARD REMEDY PASTE 57 GM TUBE TOP SCH ×2 (09:12→21:29)
[2020-01-23] MEDS: HYDROGEN PEROXIDE 3% 118 ML BOTTLE TOP SCH ×2 (09:18→21:03)
--- NOTE | 2020-01-23 18:34 | NUR ---
Covid 19 test done today.per [facility] requirement.Responsible democrat notified.
[2020-01-23] MEDS: MIRALAX 17 GM POWD.PACK GT SCH (21:29)
[2020-01-23 22:23] VITALS: BP 120/75
[2020-01-24] MEDS: JEVITY 1.2 1000 ML LIQUID GT PRN ×2 (00:42→17:57)
[2020-01-24] MEDS: OMEPRAZOLE 20 MG CAPSULE.DR GT SCH ×2 (05:38→21:09)
[2020-01-24] MEDS: IPRATROPIUM BROMIDE 0.5 MG/2.5 ML NEBU NEB SCH ×4 (07:13→18:40)
[2020-01-24] MEDS: ALBUTEROL SULFATE 2.5 MG/ 0.5 ML NEBU NEB SCH ×4 (07:13→18:40)
[2020-01-24 07:29] VITALS: BP 143/76
[2020-01-24] MEDS: HYDROGEN PEROXIDE 3% 118 ML BOTTLE TOP SCH ×2 (08:23→21:18)
[2020-01-24] MEDS: PHENYTOIN 100 MG/4 ML UDC GT SCH ×2 (08:26→21:09)
[2020-01-24] MEDS: PHENOBARBITAL 30 MG/7.5 ML LIQUID UDC GT SCH ×2 (08:27→21:09)
[2020-01-24] MEDS: PROTEIN SUPPLEMENT (PROSTAT) 30 ML LIQUID GT SCH ×2 (08:27→21:09)
[2020-01-24] MEDS: CHOLECALCIFEROL 400 UNITS TABLET GT SCH ×2 (08:27→21:09)
[2020-01-24] MEDS: CETAPHIL TOP SCH ×2 (08:28→21:09)
[2020-01-24] MEDS: Z GUARD REMEDY PASTE 57 GM TUBE TOP SCH ×2 (08:29→21:10)
[2020-01-24] MEDS: VITAMINS A AND D OINT TP SCH ×3 (08:29→21:10)
--- NOTE | 2020-01-24 17:35 | NUR ---
PT'S MOTHER AWARE THAT PT. IS NEGATIVE FOR COVID 19 TEST.
[2020-01-24 20:07] VITALS: BP 140/83
[2020-01-24 20:10] VITALS: BP 132/78
[2020-01-24] MEDS: MIRALAX 17 GM POWD.PACK GT SCH (21:09)
[2020-01-25] MEDS: OMEPRAZOLE 20 MG CAPSULE.DR GT SCH ×2 (05:33→21:04)
[2020-01-25 07:16] VITALS: BP 115/80
[2020-01-25] MEDS: ALBUTEROL SULFATE 2.5 MG/ 0.5 ML NEBU NEB SCH ×4 (07:32→18:58)
[2020-01-25] MEDS: IPRATROPIUM BROMIDE 0.5 MG/2.5 ML NEBU NEB SCH ×4 (07:32→18:58)
[2020-01-25] MEDS: VITAMINS A AND D OINT TP SCH ×3 (08:05→21:05)
[2020-01-25] MEDS: PROTEIN SUPPLEMENT (PROSTAT) 30 ML LIQUID GT SCH ×2 (08:05→21:05)
[2020-01-25] MEDS: CETAPHIL TOP SCH ×2 (08:05→21:22)
[2020-01-25] MEDS: PHENOBARBITAL 30 MG/7.5 ML LIQUID UDC GT SCH ×2 (08:05→21:20)
[2020-01-25] MEDS: Z GUARD REMEDY PASTE 57 GM TUBE TOP SCH ×2 (08:05→21:05)
[2020-01-25] MEDS: CHOLECALCIFEROL 400 UNITS TABLET GT SCH ×2 (08:05→21:08)
[2020-01-25] MEDS: PHENYTOIN 100 MG/4 ML UDC GT SCH ×2 (08:05→21:25)
[2020-01-25] MEDS: HYDROGEN PEROXIDE 3% 118 ML BOTTLE TOP SCH ×2 (08:35→21:06)
[2020-01-25] MEDS: JEVITY 1.2 1000 ML LIQUID GT PRN (14:23)
[2020-01-25 20:02] VITALS: BP 125/85
[2020-01-25] MEDS: MIRALAX 17 GM POWD.PACK GT SCH (21:10)
[2020-01-26] MEDS: OMEPRAZOLE 20 MG CAPSULE.DR GT SCH ×2 (05:34→21:44)
[2020-01-26] MEDS: HYDROGEN PEROXIDE 3% 118 ML BOTTLE TOP SCH ×2 (07:10→18:37)
[2020-01-26] MEDS: IPRATROPIUM BROMIDE 0.5 MG/2.5 ML NEBU NEB SCH ×4 (07:10→18:37)
[2020-01-26] MEDS: ALBUTEROL SULFATE 2.5 MG/ 0.5 ML NEBU NEB SCH ×4 (07:10→18:37)
[2020-01-26 07:27] VITALS: BP 146/76
[2020-01-26] MEDS: PHENYTOIN 100 MG/4 ML UDC GT SCH ×2 (09:08→21:43)
[2020-01-26] MEDS: PHENOBARBITAL 30 MG/7.5 ML LIQUID UDC GT SCH ×2 (09:08→21:46)
[2020-01-26] MEDS: PROTEIN SUPPLEMENT (PROSTAT) 30 ML LIQUID GT SCH ×2 (09:08→21:44)
[2020-01-26] MEDS: VITAMINS A AND D OINT TP SCH ×3 (09:09→21:45)
[2020-01-26] MEDS: CETAPHIL TOP SCH ×2 (09:09→21:44)
[2020-01-26] MEDS: CHOLECALCIFEROL 400 UNITS TABLET GT SCH ×2 (09:09→21:45)
[2020-01-26] MEDS: Z GUARD REMEDY PASTE 57 GM TUBE TOP SCH ×2 (09:10→21:44)
[2020-01-26 19:43] VITALS: BP 139/80
[2020-01-26] MEDS: MIRALAX 17 GM POWD.PACK GT SCH (21:44)
[2020-01-27] MEDS: OMEPRAZOLE 20 MG CAPSULE.DR GT SCH ×2 (06:32→21:02)
[2020-01-27] MEDS: IPRATROPIUM BROMIDE 0.5 MG/2.5 ML NEBU NEB SCH ×4 (07:09→18:40)
[2020-01-27] MEDS: HYDROGEN PEROXIDE 3% 118 ML BOTTLE TOP SCH ×2 (07:09→18:41)
[2020-01-27] MEDS: ALBUTEROL SULFATE 2.5 MG/ 0.5 ML NEBU NEB SCH ×4 (07:09→18:40)
[2020-01-27 07:48] VITALS: BP 139/73
[2020-01-27] MEDS: PHENYTOIN 100 MG/4 ML UDC GT SCH ×2 (08:21→21:02)
[2020-01-27] MEDS: CETAPHIL TOP SCH ×2 (08:22→21:03)
[2020-01-27] MEDS: Z GUARD REMEDY PASTE 57 GM TUBE TOP SCH ×2 (08:22→21:03)
[2020-01-27] MEDS: PHENOBARBITAL 30 MG/7.5 ML LIQUID UDC GT SCH ×2 (08:22→21:02)
[2020-01-27] MEDS: VITAMINS A AND D OINT TP SCH ×3 (08:22→21:03)
[2020-01-27] MEDS: CHOLECALCIFEROL 400 UNITS TABLET GT SCH ×2 (08:22→21:02)
[2020-01-27] MEDS: PROTEIN SUPPLEMENT (PROSTAT) 30 ML LIQUID GT SCH ×2 (08:22→21:02)
[2020-01-27] MEDS: JEVITY 1.2 1000 ML LIQUID GT PRN (12:00)
[2020-01-27 19:47] VITALS: BP 127/83
[2020-01-27] MEDS: MIRALAX 17 GM POWD.PACK GT SCH (21:02)
[2020-01-28] MEDS: JEVITY 1.2 1000 ML LIQUID GT PRN (04:16)
[2020-01-28] MEDS: OMEPRAZOLE 20 MG CAPSULE.DR GT SCH ×2 (05:48→20:17)
[2020-01-28 07:29] VITALS: BP 121/81
[2020-01-28] MEDS: IPRATROPIUM BROMIDE 0.5 MG/2.5 ML NEBU NEB SCH ×4 (08:00→18:56)
[2020-01-28] MEDS: ALBUTEROL SULFATE 2.5 MG/ 0.5 ML NEBU NEB SCH ×4 (08:00→18:56)
[2020-01-28] MEDS: PHENYTOIN 100 MG/4 ML UDC GT SCH ×2 (08:18→20:17)
[2020-01-28] MEDS: PHENOBARBITAL 30 MG/7.5 ML LIQUID UDC GT SCH ×2 (08:18→20:17)
[2020-01-28] MEDS: VITAMINS A AND D OINT TP SCH ×3 (08:19→21:00)
[2020-01-28] MEDS: CETAPHIL TOP SCH ×2 (08:19→21:00)
[2020-01-28] MEDS: CHOLECALCIFEROL 400 UNITS TABLET GT SCH ×2 (08:19→20:17)
[2020-01-28] MEDS: PROTEIN SUPPLEMENT (PROSTAT) 30 ML LIQUID GT SCH ×2 (08:19→20:17)
[2020-01-28] MEDS: Z GUARD REMEDY PASTE 57 GM TUBE TOP SCH ×2 (08:19→21:00)
[2020-01-28] MEDS: HYDROGEN PEROXIDE 3% 118 ML BOTTLE TOP SCH ×2 (09:09→21:07)
[2020-01-28] MEDS: MIRALAX 17 GM POWD.PACK GT SCH (20:17)
[2020-01-28 20:24] VITALS: BP 142/77
[2020-01-29] MEDS: JEVITY 1.2 1000 ML LIQUID GT PRN ×2 (02:23→20:28)
[2020-01-29] MEDS: OMEPRAZOLE 20 MG CAPSULE.DR GT SCH ×2 (05:34→20:24)
[2020-01-29] MEDS: ALBUTEROL SULFATE 2.5 MG/ 0.5 ML NEBU NEB SCH ×4 (07:30→18:40)
[2020-01-29] MEDS: IPRATROPIUM BROMIDE 0.5 MG/2.5 ML NEBU NEB SCH ×4 (07:30→18:40)
[2020-01-29 07:32] VITALS: BP 134/90
[2020-01-29] MEDS: PHENOBARBITAL 30 MG/7.5 ML LIQUID UDC GT SCH ×2 (08:17→20:24)
[2020-01-29] MEDS: PHENYTOIN 100 MG/4 ML UDC GT SCH ×2 (08:17→20:24)
[2020-01-29] MEDS: CHOLECALCIFEROL 400 UNITS TABLET GT SCH ×2 (08:18→20:28)
[2020-01-29] MEDS: VITAMINS A AND D OINT TP SCH ×3 (08:18→20:28)
[2020-01-29] MEDS: Z GUARD REMEDY PASTE 57 GM TUBE TOP SCH ×2 (08:18→20:28)
[2020-01-29] MEDS: CETAPHIL TOP SCH ×2 (08:18→20:28)
[2020-01-29] MEDS: PROTEIN SUPPLEMENT (PROSTAT) 30 ML LIQUID GT SCH ×2 (08:18→20:25)
[2020-01-29] MEDS: HYDROGEN PEROXIDE 3% 118 ML BOTTLE TOP SCH ×2 (08:55→21:18)
--- NOTE | 2020-01-29 18:40 | NUR ---
Received pt on HT-50 ventilator with the following settings of AC-14, Vt-700, FIO2-35%, trached with Shiley#8 XLT Distal trach, which is in the place and secure. No s/s of respiratory distress noted. Airway care done, pt responded to physical stimuli. In-line HHN tx with 2.5mg Albuterol+0.5mg Atrovent given, no adverse reaction noted. HME, Sx Rivera changed. Resus. bag and back up trach at bedside. Vent and alarms checked and reset.
[2020-01-29 20:10] VITALS: BP 141/76
[2020-01-29] MEDS: MIRALAX 17 GM POWD.PACK GT SCH (20:24)
[2020-01-30] MEDS: OMEPRAZOLE 20 MG CAPSULE.DR GT SCH ×2 (05:55→20:35)
[2020-01-30] MEDS: HYDROGEN PEROXIDE 3% 118 ML BOTTLE TOP SCH ×2 (07:13→20:48)
[2020-01-30] MEDS: IPRATROPIUM BROMIDE 0.5 MG/2.5 ML NEBU NEB SCH ×4 (07:13→18:45)
[2020-01-30] MEDS: ALBUTEROL SULFATE 2.5 MG/ 0.5 ML NEBU NEB SCH ×4 (07:13→18:45)
[2020-01-30 07:45] VITALS: BP 113/78
[2020-01-30] MEDS: PHENOBARBITAL 30 MG/7.5 ML LIQUID UDC GT SCH ×2 (08:12→20:35)
[2020-01-30] MEDS: PHENYTOIN 100 MG/4 ML UDC GT SCH ×2 (08:12→20:33)
[2020-01-30] MEDS: CHOLECALCIFEROL 400 UNITS TABLET GT SCH ×2 (08:13→20:35)
[2020-01-30] MEDS: PROTEIN SUPPLEMENT (PROSTAT) 30 ML LIQUID GT SCH ×2 (08:13→20:35)
[2020-01-30] MEDS: CETAPHIL TOP SCH ×2 (08:14→21:00)
[2020-01-30] MEDS: VITAMINS A AND D OINT TP SCH ×3 (08:14→21:00)
[2020-01-30] MEDS: Z GUARD REMEDY PASTE 57 GM TUBE TOP SCH ×2 (08:14→21:00)
[2020-01-30 20:15] VITALS: BP 134/86
[2020-01-30] MEDS: JEVITY 1.2 1000 ML LIQUID GT PRN (20:20)
[2020-01-30] MEDS: MIRALAX 17 GM POWD.PACK GT SCH (20:34)
[2020-01-31] MEDS: OMEPRAZOLE 20 MG CAPSULE.DR GT SCH ×2 (05:26→21:00)
--- NOTE | 2020-01-31 06:59 | NUR ---
Will test patient for COVID-19 today.
[2020-01-31 07:25] VITALS: BP 113/74
[2020-01-31] MEDS: IPRATROPIUM BROMIDE 0.5 MG/2.5 ML NEBU NEB SCH ×4 (07:40→19:45)
[2020-01-31] MEDS: ALBUTEROL SULFATE 2.5 MG/ 0.5 ML NEBU NEB SCH ×4 (07:40→19:45)
[2020-01-31] MEDS: PHENYTOIN 100 MG/4 ML UDC GT SCH ×2 (08:46→21:00)
[2020-01-31] MEDS: CHOLECALCIFEROL 400 UNITS TABLET GT SCH ×2 (08:49→21:00)
[2020-01-31] MEDS: PHENOBARBITAL 30 MG/7.5 ML LIQUID UDC GT SCH ×2 (08:49→21:00)
[2020-01-31] MEDS: VITAMINS A AND D OINT TP SCH ×3 (08:49→21:00)
[2020-01-31] MEDS: PROTEIN SUPPLEMENT (PROSTAT) 30 ML LIQUID GT SCH ×2 (08:49→21:00)
[2020-01-31] MEDS: Z GUARD REMEDY PASTE 57 GM TUBE TOP SCH ×2 (08:49→21:00)
[2020-01-31] MEDS: CETAPHIL TOP SCH ×2 (08:49→21:00)
[2020-01-31] MEDS: HYDROGEN PEROXIDE 3% 118 ML BOTTLE TOP SCH ×2 (09:23→19:45)
--- NOTE | 2020-01-31 10:20 | NUR ---
PT'S MOTHER AWARE AND IN AGREEMENT OF COVID 19 TEST TODAY.
[2020-01-31 20:13] VITALS: BP 138/84
[2020-01-31] MEDS: MIRALAX 17 GM POWD.PACK GT SCH (21:00)
[2020-02-01] MEDS: JEVITY 1.2 1000 ML LIQUID GT PRN ×2 (01:24→18:00)
[2020-02-01] MEDS: OMEPRAZOLE 20 MG CAPSULE.DR GT SCH ×2 (06:24→21:03)
[2020-02-01] MEDS: IPRATROPIUM BROMIDE 0.5 MG/2.5 ML NEBU NEB SCH ×4 (07:20→18:40)
[2020-02-01] MEDS: ALBUTEROL SULFATE 2.5 MG/ 0.5 ML NEBU NEB SCH ×4 (07:20→18:40)
[2020-02-01] MEDS: HYDROGEN PEROXIDE 3% 118 ML BOTTLE TOP SCH ×2 (07:20→21:08)
[2020-02-01 07:32] VITALS: BP 107/63
[2020-02-01] MEDS: PROTEIN SUPPLEMENT (PROSTAT) 30 ML LIQUID GT SCH ×2 (08:27→21:03)
[2020-02-01] MEDS: CHOLECALCIFEROL 400 UNITS TABLET GT SCH ×2 (08:28→21:04)
[2020-02-01] MEDS: Z GUARD REMEDY PASTE 57 GM TUBE TOP SCH ×2 (08:29→21:05)
[2020-02-01] MEDS: VITAMINS A AND D OINT TP SCH ×3 (08:29→21:05)
[2020-02-01] MEDS: CETAPHIL TOP SCH ×2 (08:29→21:05)
[2020-02-01] MEDS: PHENOBARBITAL 30 MG/7.5 ML LIQUID UDC GT SCH ×2 (08:30→21:02)
[2020-02-01] MEDS: PHENYTOIN 100 MG/4 ML UDC GT SCH ×2 (08:30→21:00)
--- NOTE | 2020-02-01 13:22 | NUR ---
INTERDISCIPLINARY PLAN OF CARE CONFERENCE was held today. Patient's parents were not available to participate in the meeting. Dr. Hammond and the Interdisciplinary team reviewed the current plan of care in detail. RN reported on the patient's medical condition. No major changes in patient's condition were reported by RN or by the other disciplines. See RN IDT conference notes. See also all other disciplines IDT notes and physician's progress notes for additional details.
[2020-02-01 20:04] VITALS: BP 134/82
[2020-02-01] MEDS: MIRALAX 17 GM POWD.PACK GT SCH (21:01)
--- NOTE | 2020-02-01 22:31 | NUR ---
Jose Ramon from Lab called and stated that patient's Covid-19 test resulted negative.
[2020-02-02] MEDS: OMEPRAZOLE 20 MG CAPSULE.DR GT SCH ×2 (05:56→21:31)
[2020-02-02] MEDS: ALBUTEROL SULFATE 2.5 MG/ 0.5 ML NEBU NEB SCH ×4 (07:11→18:40)
[2020-02-02] MEDS: IPRATROPIUM BROMIDE 0.5 MG/2.5 ML NEBU NEB SCH ×4 (07:11→18:40)
[2020-02-02 07:19] VITALS: BP 140/81
[2020-02-02] MEDS: PHENOBARBITAL 30 MG/7.5 ML LIQUID UDC GT SCH ×2 (09:04→21:31)
[2020-02-02] MEDS: PHENYTOIN 100 MG/4 ML UDC GT SCH ×2 (09:05→21:31)
[2020-02-02] MEDS: HYDROGEN PEROXIDE 3% 118 ML BOTTLE TOP SCH ×2 (09:05→20:45)
[2020-02-02] MEDS: CHOLECALCIFEROL 400 UNITS TABLET GT SCH ×2 (09:11→21:31)
[2020-02-02] MEDS: PROTEIN SUPPLEMENT (PROSTAT) 30 ML LIQUID GT SCH ×2 (09:11→21:31)
[2020-02-02] MEDS: VITAMINS A AND D OINT TP SCH ×3 (09:12→21:31)
[2020-02-02] MEDS: Z GUARD REMEDY PASTE 57 GM TUBE TOP SCH ×2 (09:12→21:31)
[2020-02-02] MEDS: CETAPHIL TOP SCH ×2 (09:12→21:31)
[2020-02-02] MEDS: BETAMET DP 0.05% AUGM CR 15 GM CREAM.GM. TP PRN (09:13)
[2020-02-02] MEDS: CLOTRIMAZOLE 1% CREAM 30 GM TUBE TP PRN (09:13)
--- NOTE | 2020-02-02 16:00 | NUR ---
BJ pt's moter informed COVID-19 test result was negative.
[2020-02-02] MEDS: MIRALAX 17 GM POWD.PACK GT SCH (21:31)
[2020-02-02 22:22] VITALS: BP 128/83
[2020-02-03] MEDS: JEVITY 1.2 1000 ML LIQUID GT PRN (04:12)
[2020-02-03] MEDS: OMEPRAZOLE 20 MG CAPSULE.DR GT SCH ×2 (06:09→21:57)
[2020-02-03] MEDS: HYDROGEN PEROXIDE 3% 118 ML BOTTLE TOP SCH ×2 (07:09→18:50)
[2020-02-03] MEDS: ALBUTEROL SULFATE 2.5 MG/ 0.5 ML NEBU NEB SCH ×4 (07:09→18:43)
[2020-02-03] MEDS: IPRATROPIUM BROMIDE 0.5 MG/2.5 ML NEBU NEB SCH ×4 (07:09→18:43)
[2020-02-03 07:24] VITALS: BP 133/79
[2020-02-03] MEDS: CHOLECALCIFEROL 400 UNITS TABLET GT SCH ×2 (09:06→21:59)
[2020-02-03] MEDS: PHENOBARBITAL 30 MG/7.5 ML LIQUID UDC GT SCH ×2 (09:06→21:54)
[2020-02-03] MEDS: Z GUARD REMEDY PASTE 57 GM TUBE TOP SCH ×2 (09:06→21:59)
[2020-02-03] MEDS: PHENYTOIN 100 MG/4 ML UDC GT SCH ×2 (09:06→21:54)
[2020-02-03] MEDS: VITAMINS A AND D OINT TP SCH ×3 (09:06→21:59)
[2020-02-03] MEDS: CETAPHIL TOP SCH ×2 (09:06→21:59)
[2020-02-03] MEDS: PROTEIN SUPPLEMENT (PROSTAT) 30 ML LIQUID GT SCH ×2 (09:06→21:57)
[2020-02-03 19:55] VITALS: BP 141/79
[2020-02-03] MEDS: MIRALAX 17 GM POWD.PACK GT SCH (21:54)
[2020-02-04] MEDS: JEVITY 1.2 1000 ML LIQUID GT PRN (00:45)
[2020-02-04] MEDS: OMEPRAZOLE 20 MG CAPSULE.DR GT SCH ×2 (06:10→21:06)
[2020-02-04] MEDS: IPRATROPIUM BROMIDE 0.5 MG/2.5 ML NEBU NEB SCH ×4 (07:10→18:57)
[2020-02-04] MEDS: ALBUTEROL SULFATE 2.5 MG/ 0.5 ML NEBU NEB SCH ×4 (07:10→18:57)
[2020-02-04 07:31] VITALS: BP 138/83
[2020-02-04] MEDS: HYDROGEN PEROXIDE 3% 118 ML BOTTLE TOP SCH ×2 (08:55→21:07)
[2020-02-04] MEDS: CHOLECALCIFEROL 400 UNITS TABLET GT SCH ×2 (09:32→21:06)
[2020-02-04] MEDS: PHENYTOIN 100 MG/4 ML UDC GT SCH ×2 (09:32→21:06)
[2020-02-04] MEDS: PHENOBARBITAL 30 MG/7.5 ML LIQUID UDC GT SCH ×2 (09:32→21:06)
[2020-02-04] MEDS: Z GUARD REMEDY PASTE 57 GM TUBE TOP SCH ×2 (09:32→21:06)
[2020-02-04] MEDS: CETAPHIL TOP SCH ×2 (09:32→21:06)
[2020-02-04] MEDS: VITAMINS A AND D OINT TP SCH ×3 (09:32→21:06)
[2020-02-04] MEDS: PROTEIN SUPPLEMENT (PROSTAT) 30 ML LIQUID GT SCH ×2 (09:32→21:06)
[2020-02-04 19:22] VITALS: BP 140/70
[2020-02-04] MEDS: MIRALAX 17 GM POWD.PACK GT SCH (21:06)
[2020-02-05] MEDS: OMEPRAZOLE 20 MG CAPSULE.DR GT SCH ×2 (05:39→21:19)
[2020-02-05] MEDS: ALBUTEROL SULFATE 2.5 MG/ 0.5 ML NEBU NEB SCH ×4 (07:10→18:35)
[2020-02-05] MEDS: IPRATROPIUM BROMIDE 0.5 MG/2.5 ML NEBU NEB SCH ×4 (07:10→18:35)
[2020-02-05 07:27] VITALS: BP 140/86
[2020-02-05] MEDS: HYDROGEN PEROXIDE 3% 118 ML BOTTLE TOP SCH ×2 (08:57→21:46)
[2020-02-05] MEDS: PHENYTOIN 100 MG/4 ML UDC GT SCH ×2 (09:00→21:19)
[2020-02-05] MEDS: PROTEIN SUPPLEMENT (PROSTAT) 30 ML LIQUID GT SCH ×2 (09:00→21:19)
[2020-02-05] MEDS: CHOLECALCIFEROL 400 UNITS TABLET GT SCH ×2 (09:00→21:19)
[2020-02-05] MEDS: PHENOBARBITAL 30 MG/7.5 ML LIQUID UDC GT SCH ×2 (09:00→21:19)
[2020-02-05] MEDS: CETAPHIL TOP SCH ×2 (09:01→21:19)
[2020-02-05] MEDS: Z GUARD REMEDY PASTE 57 GM TUBE TOP SCH ×2 (09:01→21:19)
[2020-02-05] MEDS: VITAMINS A AND D OINT TP SCH ×3 (09:01→21:19)
[2020-02-05] MEDS: JEVITY 1.2 1000 ML LIQUID GT PRN (15:51)
[2020-02-05 19:23] VITALS: BP 140/75
[2020-02-05] MEDS: MIRALAX 17 GM POWD.PACK GT SCH (21:19)
[2020-02-06] MEDS: OMEPRAZOLE 20 MG CAPSULE.DR GT SCH ×2 (05:40→21:29)
[2020-02-06] MEDS: IPRATROPIUM BROMIDE 0.5 MG/2.5 ML NEBU NEB SCH ×4 (07:10→19:23)
[2020-02-06] MEDS: ALBUTEROL SULFATE 2.5 MG/ 0.5 ML NEBU NEB SCH ×4 (07:10→19:23)
[2020-02-06 07:21] VITALS: BP 138/81
[2020-02-06] MEDS: PHENYTOIN 100 MG/4 ML UDC GT SCH ×2 (08:42→21:29)
[2020-02-06] MEDS: PHENOBARBITAL 30 MG/7.5 ML LIQUID UDC GT SCH ×2 (08:43→21:29)
[2020-02-06] MEDS: PROTEIN SUPPLEMENT (PROSTAT) 30 ML LIQUID GT SCH ×2 (08:44→21:29)
[2020-02-06] MEDS: CHOLECALCIFEROL 400 UNITS TABLET GT SCH ×2 (08:44→21:29)
[2020-02-06] MEDS: Z GUARD REMEDY PASTE 57 GM TUBE TOP SCH ×2 (09:00→21:29)
[2020-02-06] MEDS: HYDROGEN PEROXIDE 3% 118 ML BOTTLE TOP SCH ×2 (09:00→20:28)
[2020-02-06] MEDS: VITAMINS A AND D OINT TP SCH ×3 (09:00→21:29)
[2020-02-06] MEDS: CETAPHIL TOP SCH ×2 (09:00→21:29)
[2020-02-06] MEDS: JEVITY 1.2 1000 ML LIQUID GT PRN (15:04)
[2020-02-06 19:25] VITALS: BP 123/61
[2020-02-06] MEDS: MIRALAX 17 GM POWD.PACK GT SCH (21:29)
[2020-02-07] MEDS: OMEPRAZOLE 20 MG CAPSULE.DR GT SCH ×2 (05:44→21:58)
[2020-02-07] MEDS: ALBUTEROL SULFATE 2.5 MG/ 0.5 ML NEBU NEB SCH ×4 (07:11→18:46)
[2020-02-07] MEDS: IPRATROPIUM BROMIDE 0.5 MG/2.5 ML NEBU NEB SCH ×4 (07:11→18:46)
[2020-02-07] MEDS: HYDROGEN PEROXIDE 3% 118 ML BOTTLE TOP SCH ×2 (07:11→21:07)
[2020-02-07 07:33] VITALS: BP 147/86
[2020-02-07] MEDS: CHOLECALCIFEROL 400 UNITS TABLET GT SCH ×2 (08:35→21:00)
[2020-02-07] MEDS: PROTEIN SUPPLEMENT (PROSTAT) 30 ML LIQUID GT SCH ×2 (08:35→21:00)
[2020-02-07] MEDS: PHENOBARBITAL 30 MG/7.5 ML LIQUID UDC GT SCH ×2 (08:35→21:58)
[2020-02-07] MEDS: PHENYTOIN 100 MG/4 ML UDC GT SCH ×2 (08:35→21:58)
[2020-02-07] MEDS: VITAMINS A AND D OINT TP SCH ×3 (08:36→21:00)
[2020-02-07] MEDS: CETAPHIL TOP SCH ×2 (08:36→21:00)
[2020-02-07] MEDS: Z GUARD REMEDY PASTE 57 GM TUBE TOP SCH ×2 (08:36→21:00)
[2020-02-07] MEDS: JEVITY 1.2 1000 ML LIQUID GT PRN (14:44)
[2020-02-07 20:22] VITALS: BP 135/84
[2020-02-07] MEDS: MIRALAX 17 GM POWD.PACK GT SCH (21:58)
[2020-02-08] MEDS: OMEPRAZOLE 20 MG CAPSULE.DR GT SCH ×2 (05:40→21:00)
[2020-02-08] MEDS: ALBUTEROL SULFATE 2.5 MG/ 0.5 ML NEBU NEB SCH ×4 (07:11→19:00)
[2020-02-08] MEDS: IPRATROPIUM BROMIDE 0.5 MG/2.5 ML NEBU NEB SCH ×4 (07:11→19:00)
[2020-02-08 07:27] VITALS: BP 126/76
[2020-02-08] MEDS: PHENYTOIN 100 MG/4 ML UDC GT SCH ×2 (08:13→21:00)
[2020-02-08] MEDS: PHENOBARBITAL 30 MG/7.5 ML LIQUID UDC GT SCH ×2 (08:13→21:00)
[2020-02-08] MEDS: PROTEIN SUPPLEMENT (PROSTAT) 30 ML LIQUID GT SCH ×2 (08:13→21:00)
[2020-02-08] MEDS: CETAPHIL TOP SCH ×2 (08:13→21:00)
[2020-02-08] MEDS: Z GUARD REMEDY PASTE 57 GM TUBE TOP SCH ×2 (08:13→21:00)
[2020-02-08] MEDS: CHOLECALCIFEROL 400 UNITS TABLET GT SCH ×2 (08:13→21:00)
[2020-02-08] MEDS: VITAMINS A AND D OINT TP SCH ×3 (08:16→21:00)
[2020-02-08] MEDS: HYDROGEN PEROXIDE 3% 118 ML BOTTLE TOP SCH ×2 (09:34→20:36)
[2020-02-08] MEDS: JEVITY 1.2 1000 ML LIQUID GT PRN (12:24)
[2020-02-08 20:13] VITALS: BP 128/83
[2020-02-08] MEDS: MIRALAX 17 GM POWD.PACK GT SCH (21:00)
[2020-02-09] MEDS: JEVITY 1.2 1000 ML LIQUID GT PRN (02:00)
[2020-02-09] MEDS: OMEPRAZOLE 20 MG CAPSULE.DR GT SCH ×2 (05:32→21:48)
[2020-02-09] MEDS: IPRATROPIUM BROMIDE 0.5 MG/2.5 ML NEBU NEB SCH ×4 (07:05→18:40)
[2020-02-09] MEDS: ALBUTEROL SULFATE 2.5 MG/ 0.5 ML NEBU NEB SCH ×4 (07:05→18:40)
[2020-02-09 07:49] VITALS: BP 132/95
[2020-02-09] MEDS: HYDROGEN PEROXIDE 3% 118 ML BOTTLE TOP SCH ×2 (08:41→21:00)
[2020-02-09] MEDS: PHENOBARBITAL 30 MG/7.5 ML LIQUID UDC GT SCH ×2 (09:16→21:48)
[2020-02-09] MEDS: PROTEIN SUPPLEMENT (PROSTAT) 30 ML LIQUID GT SCH ×2 (09:16→21:50)
[2020-02-09] MEDS: PHENYTOIN 100 MG/4 ML UDC GT SCH ×2 (09:16→21:47)
[2020-02-09] MEDS: CHOLECALCIFEROL 400 UNITS TABLET GT SCH ×2 (09:19→21:50)
[2020-02-09] MEDS: VITAMINS A AND D OINT TP SCH ×3 (09:19→21:51)
[2020-02-09] MEDS: Z GUARD REMEDY PASTE 57 GM TUBE TOP SCH ×2 (09:19→21:51)
[2020-02-09] MEDS: CETAPHIL TOP SCH ×2 (09:19→21:51)
[2020-02-09] MEDS: MIRALAX 17 GM POWD.PACK GT SCH (21:48)
[2020-02-09 22:38] VITALS: BP 117/71
[2020-02-10] MEDS: OMEPRAZOLE 20 MG CAPSULE.DR GT SCH ×2 (05:39→21:23)
[2020-02-10] MEDS: JEVITY 1.2 1000 ML LIQUID GT PRN (05:40)
[2020-02-10] MEDS: IPRATROPIUM BROMIDE 0.5 MG/2.5 ML NEBU NEB SCH ×4 (07:29→19:32)
[2020-02-10] MEDS: HYDROGEN PEROXIDE 3% 118 ML BOTTLE TOP SCH ×2 (07:29→20:53)
[2020-02-10] MEDS: ALBUTEROL SULFATE 2.5 MG/ 0.5 ML NEBU NEB SCH ×4 (07:29→19:32)
[2020-02-10 07:43] VITALS: BP 126/73
[2020-02-10] MEDS: PHENYTOIN 100 MG/4 ML UDC GT SCH ×2 (08:58→21:22)
[2020-02-10] MEDS: PHENOBARBITAL 30 MG/7.5 ML LIQUID UDC GT SCH ×2 (08:58→21:23)
[2020-02-10] MEDS: CHOLECALCIFEROL 400 UNITS TABLET GT SCH ×2 (09:00→21:24)
[2020-02-10] MEDS: VITAMINS A AND D OINT TP SCH ×3 (09:00→21:24)
[2020-02-10] MEDS: PROTEIN SUPPLEMENT (PROSTAT) 30 ML LIQUID GT SCH ×2 (09:00→21:23)
[2020-02-10] MEDS: Z GUARD REMEDY PASTE 57 GM TUBE TOP SCH ×2 (09:00→21:24)
[2020-02-10] MEDS: CETAPHIL TOP SCH ×2 (09:00→21:24)
[2020-02-10 20:00] VITALS: BP 110/80
[2020-02-10] MEDS: MIRALAX 17 GM POWD.PACK GT SCH (21:22)
[2020-02-10 22:00] VITALS: BP 130/80
[2020-02-11] MEDS: JEVITY 1.2 1000 ML LIQUID GT PRN (04:00)
[2020-02-11] MEDS: OMEPRAZOLE 20 MG CAPSULE.DR GT SCH ×2 (05:38→21:11)
[2020-02-11] MEDS: IPRATROPIUM BROMIDE 0.5 MG/2.5 ML NEBU NEB SCH ×4 (07:10→18:55)
[2020-02-11] MEDS: ALBUTEROL SULFATE 2.5 MG/ 0.5 ML NEBU NEB SCH ×4 (07:10→18:55)
[2020-02-11 07:43] VITALS: BP 126/73
[2020-02-11] MEDS: PHENYTOIN 100 MG/4 ML UDC GT SCH ×2 (08:54→21:11)
[2020-02-11] MEDS: CETAPHIL TOP SCH ×2 (08:54→21:12)
[2020-02-11] MEDS: Z GUARD REMEDY PASTE 57 GM TUBE TOP SCH ×2 (08:54→21:12)
[2020-02-11] MEDS: PHENOBARBITAL 30 MG/7.5 ML LIQUID UDC GT SCH ×2 (08:54→21:11)
[2020-02-11] MEDS: CHOLECALCIFEROL 400 UNITS TABLET GT SCH ×2 (08:54→21:11)
[2020-02-11] MEDS: PROTEIN SUPPLEMENT (PROSTAT) 30 ML LIQUID GT SCH ×2 (08:54→21:11)
[2020-02-11] MEDS: VITAMINS A AND D OINT TP SCH ×3 (08:55→21:12)
[2020-02-11] MEDS: HYDROGEN PEROXIDE 3% 118 ML BOTTLE TOP SCH ×2 (09:21→21:16)
[2020-02-11] MEDS: MIRALAX 17 GM POWD.PACK GT SCH (21:11)
[2020-02-11 22:16] VITALS: BP 136/79
[2020-02-12] MEDS: OMEPRAZOLE 20 MG CAPSULE.DR GT SCH ×2 (05:46→20:44)
[2020-02-12] MEDS: IPRATROPIUM BROMIDE 0.5 MG/2.5 ML NEBU NEB SCH ×4 (07:24→18:40)
[2020-02-12] MEDS: ALBUTEROL SULFATE 2.5 MG/ 0.5 ML NEBU NEB SCH ×4 (07:24→18:40)
[2020-02-12 07:32] VITALS: BP 114/71
[2020-02-12] MEDS: PROTEIN SUPPLEMENT (PROSTAT) 30 ML LIQUID GT SCH ×2 (08:22→20:44)
[2020-02-12] MEDS: PHENOBARBITAL 30 MG/7.5 ML LIQUID UDC GT SCH ×2 (08:22→20:44)
[2020-02-12] MEDS: CHOLECALCIFEROL 400 UNITS TABLET GT SCH ×2 (08:22→20:44)
[2020-02-12] MEDS: CETAPHIL TOP SCH ×2 (08:22→20:44)
[2020-02-12] MEDS: Z GUARD REMEDY PASTE 57 GM TUBE TOP SCH ×2 (08:22→20:44)
[2020-02-12] MEDS: PHENYTOIN 100 MG/4 ML UDC GT SCH ×2 (08:22→20:38)
[2020-02-12] MEDS: VITAMINS A AND D OINT TP SCH ×3 (08:23→20:44)
[2020-02-12] MEDS: HYDROGEN PEROXIDE 3% 118 ML BOTTLE TOP SCH ×2 (09:08→20:44)
--- NOTE | 2020-02-12 18:40 | NUR ---
Received pt on HT-50 ventilator with the following settings of AC-14, Vt-700, FIO2-35%, trached with Shiley#8 XLT Distal trach, which is in the place and secure. No distress noted. Airway care done, pt responded to physical stimuli. In-line HHN tx with 2.5mg Albuterol+0.5mg Atrovent given, no adverse reaction noted. HME, HHN adaptor and Sx Rivera changed. Resus. bag and back up trach at bedside. Vent and alarms checked and reset.
[2020-02-12] MEDS: MIRALAX 17 GM POWD.PACK GT SCH (20:46)
[2020-02-12] MEDS: JEVITY 1.2 1000 ML LIQUID GT PRN (21:22)
[2020-02-12 22:15] VITALS: BP 130/79
[2020-02-13] MEDS: OMEPRAZOLE 20 MG CAPSULE.DR GT SCH ×2 (05:36→21:14)
[2020-02-13] MEDS: IPRATROPIUM BROMIDE 0.5 MG/2.5 ML NEBU NEB SCH ×4 (07:24→18:40)
[2020-02-13] MEDS: ALBUTEROL SULFATE 2.5 MG/ 0.5 ML NEBU NEB SCH ×4 (07:24→18:40)
[2020-02-13] MEDS: HYDROGEN PEROXIDE 3% 118 ML BOTTLE TOP SCH ×2 (07:24→21:13)
[2020-02-13 07:33] VITALS: BP 130/92
[2020-02-13] MEDS: PHENYTOIN 100 MG/4 ML UDC GT SCH ×2 (08:58→21:14)
[2020-02-13] MEDS: CHOLECALCIFEROL 400 UNITS TABLET GT SCH ×2 (08:59→21:14)
[2020-02-13] MEDS: PHENOBARBITAL 30 MG/7.5 ML LIQUID UDC GT SCH ×2 (08:59→21:14)
[2020-02-13] MEDS: PROTEIN SUPPLEMENT (PROSTAT) 30 ML LIQUID GT SCH ×2 (08:59→21:14)
[2020-02-13] MEDS: Z GUARD REMEDY PASTE 57 GM TUBE TOP SCH ×2 (09:00→21:14)
[2020-02-13] MEDS: CETAPHIL TOP SCH ×2 (09:00→21:14)
[2020-02-13] MEDS: VITAMINS A AND D OINT TP SCH ×3 (09:00→21:15)
--- NOTE | 2020-02-13 09:06 | NUR ---
PT. OBSERVED DURING THE MORNING BATH WITH GT SITE REDNESS AND OLD GT SITE REDNESS AND A TINY OPENING WITH MOISTURE.PICTURE WAS TAKEN AND LOCAL TX WAS CARRIED OUT FROM DR. MORE.PT'S MOTHER WAS NOTIFIED AND IN AGREEMENT.
[2020-02-13] MEDS: NEOMY/BACITRA/POLYMYXIN B OINT UD PACKET TP SCH ×4 (09:19→21:15)
[2020-02-13] MEDS: MIRALAX 17 GM POWD.PACK GT SCH (21:14)
[2020-02-13 21:23] VITALS: BP 131/78
[2020-02-14] MEDS: OMEPRAZOLE 20 MG CAPSULE.DR GT SCH ×2 (05:48→20:39)
[2020-02-14 07:24] VITALS: BP 142/92
[2020-02-14] MEDS: IPRATROPIUM BROMIDE 0.5 MG/2.5 ML NEBU NEB SCH ×4 (07:25→19:00)
[2020-02-14] MEDS: ALBUTEROL SULFATE 2.5 MG/ 0.5 ML NEBU NEB SCH ×4 (07:25→19:00)
[2020-02-14] MEDS: HYDROGEN PEROXIDE 3% 118 ML BOTTLE TOP SCH ×2 (07:25→19:00)
[2020-02-14] MEDS: PHENYTOIN 100 MG/4 ML UDC GT SCH ×2 (08:09→20:39)
[2020-02-14] MEDS: CETAPHIL TOP SCH ×2 (08:10→20:40)
[2020-02-14] MEDS: PHENOBARBITAL 30 MG/7.5 ML LIQUID UDC GT SCH ×2 (08:10→20:39)
[2020-02-14] MEDS: PROTEIN SUPPLEMENT (PROSTAT) 30 ML LIQUID GT SCH ×2 (08:10→20:39)
[2020-02-14] MEDS: CHOLECALCIFEROL 400 UNITS TABLET GT SCH ×2 (08:10→20:40)
[2020-02-14] MEDS: NEOMY/BACITRA/POLYMYXIN B OINT UD PACKET TP SCH ×4 (08:10→20:40)
[2020-02-14] MEDS: Z GUARD REMEDY PASTE 57 GM TUBE TOP SCH ×2 (08:10→20:40)
[2020-02-14] MEDS: VITAMINS A AND D OINT TP SCH ×3 (08:11→20:40)
--- NOTE | 2020-02-14 10:37 | NUR ---
DR. MORE WAS CALLED AND MESSAGE LEFT WITH ASSISTANT PROFESSOR OF SURGERY RE:F/U OLD GT SITE REOPENING AND SHE STATED THAT HE WILL BE AVAILABLE AFTER 12:30 TODAY.
[2020-02-14] MEDS: JEVITY 1.2 1000 ML LIQUID GT PRN (12:33)
--- NOTE | 2020-02-14 16:05 | NUR ---
DR. MORE WAS NOTIFIED RE: OLD GT SITE RE OPENING AND HE STATED CONTINUE WITH CURRENT LOCAL TX AND MONITOR IF ANY GASTRIC CONTENT COMES OUT FROM IT.AT THIS TIME NO ERYTHEMA ,NO INCREASE ON LOCAL TEMPERATURE OBSERVED ONLY TINY OPENING ON OLD SCARRED TISSUE WITH SCANT MOISTURE FROM IT.DR. MORE WAS AWARE THAT PT'S MOTHER WAS CONCERN ABOUT A FISTULA FORMING AND THEN HE STATED HE WILL TAKE A LOOK NEXT TIME HE VISITS BUT HE WILL CONTACT SURGEON TO TAKE A A LOOK ,CURRENTLY AFEBRILE AND NO S/S OF INFECTION,P/A 0/10.PT'S MOTHER WAS NOTIFIED AND IN AGREEMENT.
[2020-02-14 20:13] VITALS: BP 137/78
[2020-02-14] MEDS: MIRALAX 17 GM POWD.PACK GT SCH (20:39)
--- NOTE | 2020-02-15 06:18 | NUR ---
old g tube site has scant amount of drainage, afebrile,continue monitor. no s/s of infection noted.
[2020-02-15] MEDS: OMEPRAZOLE 20 MG CAPSULE.DR GT SCH ×2 (06:36→21:16)
[2020-02-15] MEDS: JEVITY 1.2 1000 ML LIQUID GT PRN (07:01)
[2020-02-15 07:31] VITALS: BP 125/73
[2020-02-15] MEDS: IPRATROPIUM BROMIDE 0.5 MG/2.5 ML NEBU NEB SCH ×4 (08:10→19:39)
[2020-02-15] MEDS: ALBUTEROL SULFATE 2.5 MG/ 0.5 ML NEBU NEB SCH ×4 (08:10→19:39)
[2020-02-15] MEDS: PHENYTOIN 100 MG/4 ML UDC GT SCH ×2 (08:29→21:16)
[2020-02-15] MEDS: PHENOBARBITAL 30 MG/7.5 ML LIQUID UDC GT SCH ×2 (08:30→21:16)
[2020-02-15] MEDS: CETAPHIL TOP SCH ×2 (08:34→21:16)
[2020-02-15] MEDS: Z GUARD REMEDY PASTE 57 GM TUBE TOP SCH ×2 (08:34→21:16)
[2020-02-15] MEDS: CHOLECALCIFEROL 400 UNITS TABLET GT SCH ×2 (08:34→21:16)
[2020-02-15] MEDS: PROTEIN SUPPLEMENT (PROSTAT) 30 ML LIQUID GT SCH ×2 (08:34→21:16)
[2020-02-15] MEDS: VITAMINS A AND D OINT TP SCH ×3 (08:35→21:17)
[2020-02-15] MEDS: NEOMY/BACITRA/POLYMYXIN B OINT UD PACKET TP SCH ×4 (08:35→21:17)
[2020-02-15] MEDS: HYDROGEN PEROXIDE 3% 118 ML BOTTLE TOP SCH ×2 (09:48→20:50)
--- NOTE | 2020-02-15 10:00 | NUR ---
Seen and examined By [place],notified regarding the old Gt site leakage with new orders noted.
--- NOTE | 2020-02-15 10:05 | NUR ---
PT. WAS UP IN W/CH AND WELLTOLERATED.
[2020-02-15] MEDS: CLOTRIMAZOLE 1% CREAM 30 GM TUBE TP PRN (12:29)
--- NOTE | 2020-02-15 12:34 | NUR ---
CLOTRIMAZOLE 1% CREAM APPLIED ON NECK AREA PRN ORDERED
--- NOTE | 2020-02-15 16:07 | NUR ---
OLD GT SITE CLEAR VERY SMALL LEAKAGE SPECIMEN COLLECTED AND SENT TOLAB FOR C&S .
[2020-02-15 19:58] VITALS: BP 141/79
[2020-02-15] MEDS: MIRALAX 17 GM POWD.PACK GT SCH (21:16)
[2020-02-16] MEDS: JEVITY 1.2 1000 ML LIQUID GT PRN ×2 (01:19→18:12)
[2020-02-16] MEDS: OMEPRAZOLE 20 MG CAPSULE.DR GT SCH ×2 (05:48→20:41)
[2020-02-16] MEDS: IPRATROPIUM BROMIDE 0.5 MG/2.5 ML NEBU NEB SCH ×4 (07:12→18:45)
[2020-02-16] MEDS: ALBUTEROL SULFATE 2.5 MG/ 0.5 ML NEBU NEB SCH ×4 (07:12→18:45)
[2020-02-16 07:22] VITALS: BP 125/89
[2020-02-16] MEDS: PHENOBARBITAL 30 MG/7.5 ML LIQUID UDC GT SCH ×2 (08:26→20:41)
[2020-02-16] MEDS: PROTEIN SUPPLEMENT (PROSTAT) 30 ML LIQUID GT SCH ×2 (08:47→20:41)
[2020-02-16] MEDS: PHENYTOIN 100 MG/4 ML UDC GT SCH ×2 (08:47→20:40)
[2020-02-16] MEDS: CHOLECALCIFEROL 400 UNITS TABLET GT SCH ×2 (08:48→20:41)
[2020-02-16] MEDS: VITAMINS A AND D OINT TP SCH ×3 (08:49→20:41)
[2020-02-16] MEDS: NEOMY/BACITRA/POLYMYXIN B OINT UD PACKET TP SCH ×4 (08:49→20:41)
[2020-02-16] MEDS: Z GUARD REMEDY PASTE 57 GM TUBE TOP SCH ×2 (08:49→20:41)
[2020-02-16] MEDS: CETAPHIL TOP SCH ×2 (08:49→20:41)
[2020-02-16] MEDS: HYDROGEN PEROXIDE 3% 118 ML BOTTLE TOP SCH ×2 (09:00→21:25)
--- NOTE | 2020-02-16 11:14 | NUR ---
Dr Allen was called for Gi consult regarding the old Gt Site leaking,spoke to Lynne..
--- NOTE | 2020-02-16 18:16 | NUR ---
Seen and examined By Marissa Urban Machine Operator Transplanter ,consult for old Gt site leakage,no new orders at this time,she will wait for Dr Allen to see what he recommend for this problem.
--- NOTE | 2020-02-16 18:45 | NUR ---
Received pt awake, on HT-50 ventilator with the following settings of AC-14, Vt-700, FIO2-35%, trached with Shiley#8 XLT Distal trach, which is in the place and secure. No SOB noted. Airway care done, pt responded to physical stimuli. In-line HHN tx with 2.5mg Albuterol+0.5mg Atrovent given, no adverse reaction noted. HME changed. Resus. bag and back up trach at bedside. Vent and alarms checked and reset.
[2020-02-16 19:57] VITALS: BP 126/79
[2020-02-16] MEDS: MIRALAX 17 GM POWD.PACK GT SCH (20:40)
--- NOTE | 2020-02-17 03:10 | NUR ---
Patient is afebrile, monitoring patient for leaking from old gt site, treatment to site was done, no leaking noted at this time, kept patient clean and comfortable.
[2020-02-17] MEDS: OMEPRAZOLE 20 MG CAPSULE.DR GT SCH ×2 (05:45→21:06)
[2020-02-17 07:41] VITALS: BP 121/75
[2020-02-17] MEDS: IPRATROPIUM BROMIDE 0.5 MG/2.5 ML NEBU NEB SCH ×4 (07:47→18:52)
[2020-02-17] MEDS: ALBUTEROL SULFATE 2.5 MG/ 0.5 ML NEBU NEB SCH ×4 (07:47→18:52)
[2020-02-17] MEDS: HYDROGEN PEROXIDE 3% 118 ML BOTTLE TOP SCH ×2 (09:00→21:01)
[2020-02-17] MEDS: CHOLECALCIFEROL 400 UNITS TABLET GT SCH ×2 (09:04→21:06)
[2020-02-17] MEDS: PHENOBARBITAL 30 MG/7.5 ML LIQUID UDC GT SCH ×2 (09:04→21:06)
[2020-02-17] MEDS: CETAPHIL TOP SCH ×2 (09:04→21:06)
[2020-02-17] MEDS: VITAMINS A AND D OINT TP SCH ×3 (09:04→21:07)
[2020-02-17] MEDS: Z GUARD REMEDY PASTE 57 GM TUBE TOP SCH ×2 (09:04→21:06)
[2020-02-17] MEDS: PROTEIN SUPPLEMENT (PROSTAT) 30 ML LIQUID GT SCH ×2 (09:04→21:06)
[2020-02-17] MEDS: NEOMY/BACITRA/POLYMYXIN B OINT UD PACKET TP SCH ×4 (09:04→21:07)
[2020-02-17] MEDS: PHENYTOIN 100 MG/4 ML UDC GT SCH ×2 (09:04→21:05)
[2020-02-17] MEDS: JEVITY 1.2 1000 ML LIQUID GT PRN (15:42)
--- NOTE | 2020-02-17 17:10 | NUR ---
CALLED AND NOTIFIED RESPONSIBLE DEMOCRAT OF ANNUAL PPD TEST. NOTIFIED Rufino OF THE PPD TEST AND SHE OKAYED TO GIVE TEST.
[2020-02-17 20:00] VITALS: BP 133/89
[2020-02-17] MEDS: MIRALAX 17 GM POWD.PACK GT SCH (21:00)
[2020-02-18] MEDS: OMEPRAZOLE 20 MG CAPSULE.DR GT SCH ×2 (05:31→21:04)
[2020-02-18] MEDS: ALBUTEROL SULFATE 2.5 MG/ 0.5 ML NEBU NEB SCH ×4 (07:11→19:43)
[2020-02-18] MEDS: IPRATROPIUM BROMIDE 0.5 MG/2.5 ML NEBU NEB SCH ×4 (07:11→19:43)
[2020-02-18 07:29] VITALS: BP 133/70
[2020-02-18] MEDS: PHENYTOIN 100 MG/4 ML UDC GT SCH ×2 (08:22→21:04)
[2020-02-18] MEDS: PHENOBARBITAL 30 MG/7.5 ML LIQUID UDC GT SCH ×2 (08:22→21:04)
[2020-02-18] MEDS: PROTEIN SUPPLEMENT (PROSTAT) 30 ML LIQUID GT SCH ×2 (08:22→21:04)
[2020-02-18] MEDS: CETAPHIL TOP SCH ×2 (08:23→21:04)
[2020-02-18] MEDS: CHOLECALCIFEROL 400 UNITS TABLET GT SCH ×2 (08:23→21:04)
[2020-02-18] MEDS: NEOMY/BACITRA/POLYMYXIN B OINT UD PACKET TP SCH ×4 (08:23→21:04)
[2020-02-18] MEDS: VITAMINS A AND D OINT TP SCH ×3 (08:23→21:04)
[2020-02-18] MEDS: Z GUARD REMEDY PASTE 57 GM TUBE TOP SCH ×2 (08:23→21:04)
[2020-02-18] MEDS: HYDROGEN PEROXIDE 3% 118 ML BOTTLE TOP SCH ×2 (08:40→21:21)
[2020-02-18] MEDS: BISACODYL 10 MG SUPP.RECT RC PRN (18:31)
[2020-02-18] MEDS: JEVITY 1.2 1000 ML LIQUID GT PRN (18:31)
[2020-02-18 20:00] VITALS: BP 122/75
[2020-02-18] MEDS: MIRALAX 17 GM POWD.PACK GT SCH (21:04)
[2020-02-19] MEDS: JEVITY 1.2 1000 ML LIQUID GT PRN (03:58)
[2020-02-19] MEDS: OMEPRAZOLE 20 MG CAPSULE.DR GT SCH ×2 (05:38→21:00)
[2020-02-19 07:44] VITALS: BP 135/77
[2020-02-19] MEDS: ALBUTEROL SULFATE 2.5 MG/ 0.5 ML NEBU NEB SCH ×4 (07:46→18:40)
[2020-02-19] MEDS: HYDROGEN PEROXIDE 3% 118 ML BOTTLE TOP SCH ×2 (07:46→21:29)
[2020-02-19] MEDS: IPRATROPIUM BROMIDE 0.5 MG/2.5 ML NEBU NEB SCH ×4 (07:46→18:40)
[2020-02-19] MEDS: Z GUARD REMEDY PASTE 57 GM TUBE TOP SCH ×2 (08:27→21:01)
[2020-02-19] MEDS: PROTEIN SUPPLEMENT (PROSTAT) 30 ML LIQUID GT SCH ×2 (08:27→21:00)
[2020-02-19] MEDS: PHENYTOIN 100 MG/4 ML UDC GT SCH ×2 (08:27→21:00)
[2020-02-19] MEDS: CHOLECALCIFEROL 400 UNITS TABLET GT SCH ×2 (08:27→21:00)
[2020-02-19] MEDS: VITAMINS A AND D OINT TP SCH ×3 (08:27→21:01)
[2020-02-19] MEDS: CETAPHIL TOP SCH ×2 (08:27→21:01)
[2020-02-19] MEDS: NEOMY/BACITRA/POLYMYXIN B OINT UD PACKET TP SCH ×4 (08:27→21:01)
[2020-02-19] MEDS: PHENOBARBITAL 30 MG/7.5 ML LIQUID UDC GT SCH ×2 (08:27→21:00)
--- NOTE | 2020-02-19 13:30 | NUR ---
Dr Vance notified old gt site culture results are Mrsa,with new orders noted to repeat the culture,no isolation at this time.
--- NOTE | 2020-02-19 18:40 | NUR ---
Pt received on HT-50 ventilator with the following settings of AC-14, Vt-700, FIO2-35%, trached with Shiley#8 XLT Distal trach, which is in the place and secure. No respiratory distress noted. Airway care done, pt responded to physical stimuli. In-line HHN tx with 2.5mg Albuterol+0.5mg Atrovent given, no adverse reaction noted. HME and Sx Rivera changed. Resus. bag and back up trach at bedside. Vent and alarms checked and reset.
[2020-02-19] MEDS: MIRALAX 17 GM POWD.PACK GT SCH (21:00)
[2020-02-19 22:00] VITALS: BP 114/85
[2020-02-20] MEDS: JEVITY 1.2 1000 ML LIQUID GT PRN (00:14)
[2020-02-20] MEDS: OMEPRAZOLE 20 MG CAPSULE.DR GT SCH ×2 (05:32→20:18)
[2020-02-20] MEDS: ALBUTEROL SULFATE 2.5 MG/ 0.5 ML NEBU NEB SCH ×4 (07:28→18:58)
[2020-02-20] MEDS: IPRATROPIUM BROMIDE 0.5 MG/2.5 ML NEBU NEB SCH ×4 (07:28→18:58)
[2020-02-20 07:33] VITALS: BP 131/77
[2020-02-20] MEDS: PHENOBARBITAL 30 MG/7.5 ML LIQUID UDC GT SCH ×2 (08:50→20:18)
[2020-02-20] MEDS: CHOLECALCIFEROL 400 UNITS TABLET GT SCH ×2 (08:50→20:18)
[2020-02-20] MEDS: VITAMINS A AND D OINT TP SCH ×3 (08:50→20:19)
[2020-02-20] MEDS: PROTEIN SUPPLEMENT (PROSTAT) 30 ML LIQUID GT SCH ×2 (08:50→20:18)
[2020-02-20] MEDS: Z GUARD REMEDY PASTE 57 GM TUBE TOP SCH ×2 (08:50→20:19)
[2020-02-20] MEDS: CETAPHIL TOP SCH ×2 (08:50→20:18)
[2020-02-20] MEDS: PHENYTOIN 100 MG/4 ML UDC GT SCH ×2 (08:50→20:18)
[2020-02-20] MEDS: NEOMY/BACITRA/POLYMYXIN B OINT UD PACKET TP SCH ×4 (08:50→20:19)
[2020-02-20] MEDS: HYDROGEN PEROXIDE 3% 118 ML BOTTLE TOP SCH ×2 (09:52→18:58)
[2020-02-20 20:17] VITALS: BP 128/76
[2020-02-20] MEDS: MIRALAX 17 GM POWD.PACK GT SCH (20:18)
[2020-02-21] MEDS: OMEPRAZOLE 20 MG CAPSULE.DR GT SCH ×2 (05:36→21:08)
[2020-02-21] MEDS: ALBUTEROL SULFATE 2.5 MG/ 0.5 ML NEBU NEB SCH ×4 (07:17→19:56)
[2020-02-21] MEDS: IPRATROPIUM BROMIDE 0.5 MG/2.5 ML NEBU NEB SCH ×4 (07:17→19:56)
[2020-02-21 07:39] VITALS: BP 126/83
[2020-02-21] MEDS: CETAPHIL TOP SCH ×2 (08:36→21:08)
[2020-02-21] MEDS: NEOMY/BACITRA/POLYMYXIN B OINT UD PACKET TP SCH ×4 (08:36→21:08)
[2020-02-21] MEDS: Z GUARD REMEDY PASTE 57 GM TUBE TOP SCH ×2 (08:36→21:08)
[2020-02-21] MEDS: CHOLECALCIFEROL 400 UNITS TABLET GT SCH ×2 (08:36→21:08)
[2020-02-21] MEDS: PHENYTOIN 100 MG/4 ML UDC GT SCH ×2 (08:36→21:07)
[2020-02-21] MEDS: PROTEIN SUPPLEMENT (PROSTAT) 30 ML LIQUID GT SCH ×2 (08:36→21:08)
[2020-02-21] MEDS: VITAMINS A AND D OINT TP SCH ×3 (08:36→21:08)
[2020-02-21] MEDS: PHENOBARBITAL 30 MG/7.5 ML LIQUID UDC GT SCH ×2 (08:36→21:07)
[2020-02-21] MEDS: HYDROGEN PEROXIDE 3% 118 ML BOTTLE TOP SCH ×2 (11:58→21:58)
--- NOTE | 2020-02-21 14:14 | NUR ---
Called Mother to notified covid19 test will be done, unable to leave message (mail box is full).
--- NOTE | 2020-02-21 14:58 | NUR ---
Mother notified of covid19 test to be done today, Mother requested to be notified for results only.
[2020-02-21 20:04] VITALS: BP 141/79
[2020-02-21] MEDS: MIRALAX 17 GM POWD.PACK GT SCH (21:07)
[2020-02-22] MEDS: OMEPRAZOLE 20 MG CAPSULE.DR GT SCH ×2 (05:43→21:56)
[2020-02-22] MEDS: IPRATROPIUM BROMIDE 0.5 MG/2.5 ML NEBU NEB SCH ×4 (07:10→19:16)
[2020-02-22] MEDS: HYDROGEN PEROXIDE 3% 118 ML BOTTLE TOP SCH ×2 (07:10→21:05)
[2020-02-22] MEDS: ALBUTEROL SULFATE 2.5 MG/ 0.5 ML NEBU NEB SCH ×4 (07:10→19:16)
[2020-02-22 07:23] VITALS: BP 108/69
[2020-02-22] MEDS: PHENOBARBITAL 30 MG/7.5 ML LIQUID UDC GT SCH ×2 (08:58→21:56)
[2020-02-22] MEDS: NEOMY/BACITRA/POLYMYXIN B OINT UD PACKET TP SCH ×4 (08:58→21:56)
[2020-02-22] MEDS: Z GUARD REMEDY PASTE 57 GM TUBE TOP SCH ×2 (08:58→21:56)
[2020-02-22] MEDS: PHENYTOIN 100 MG/4 ML UDC GT SCH ×2 (08:58→21:56)
[2020-02-22] MEDS: CETAPHIL TOP SCH ×2 (08:58→21:56)
[2020-02-22] MEDS: VITAMINS A AND D OINT TP SCH ×3 (08:58→21:56)
[2020-02-22] MEDS: PROTEIN SUPPLEMENT (PROSTAT) 30 ML LIQUID GT SCH ×2 (08:58→21:56)
[2020-02-22] MEDS: CHOLECALCIFEROL 400 UNITS TABLET GT SCH ×2 (08:58→21:56)
[2020-02-22 19:58] VITALS: BP 133/78
[2020-02-22] MEDS: MIRALAX 17 GM POWD.PACK GT SCH (21:56)
[2020-02-23] MEDS: OMEPRAZOLE 20 MG CAPSULE.DR GT SCH ×2 (06:30→21:00)
[2020-02-23] MEDS: IPRATROPIUM BROMIDE 0.5 MG/2.5 ML NEBU NEB SCH ×4 (07:20→19:08)
[2020-02-23] MEDS: ALBUTEROL SULFATE 2.5 MG/ 0.5 ML NEBU NEB SCH ×4 (07:20→19:08)
[2020-02-23 07:27] VITALS: BP 143/86
[2020-02-23] MEDS: PHENYTOIN 100 MG/4 ML UDC GT SCH ×2 (08:55→21:59)
[2020-02-23] MEDS: CETAPHIL TOP SCH ×2 (08:56→21:59)
[2020-02-23] MEDS: VITAMINS A AND D OINT TP SCH ×3 (08:56→22:00)
[2020-02-23] MEDS: CHOLECALCIFEROL 400 UNITS TABLET GT SCH ×2 (08:56→21:59)
[2020-02-23] MEDS: PROTEIN SUPPLEMENT (PROSTAT) 30 ML LIQUID GT SCH ×2 (08:56→21:59)
[2020-02-23] MEDS: Z GUARD REMEDY PASTE 57 GM TUBE TOP SCH ×2 (08:56→21:59)
[2020-02-23] MEDS: PHENOBARBITAL 30 MG/7.5 ML LIQUID UDC GT SCH ×2 (08:56→21:59)
[2020-02-23] MEDS: HYDROGEN PEROXIDE 3% 118 ML BOTTLE TOP SCH ×2 (09:00→20:48)
[2020-02-23 20:05] VITALS: BP 139/81
[2020-02-23] MEDS: MIRALAX 17 GM POWD.PACK GT SCH (21:59)
[2020-02-24] MEDS: JEVITY 1.2 1000 ML LIQUID GT PRN (03:53)
[2020-02-24] MEDS: OMEPRAZOLE 20 MG CAPSULE.DR GT SCH ×2 (05:51→21:53)
[2020-02-24] MEDS: ALBUTEROL SULFATE 2.5 MG/ 0.5 ML NEBU NEB SCH ×4 (07:19→19:00)
[2020-02-24] MEDS: HYDROGEN PEROXIDE 3% 118 ML BOTTLE TOP SCH ×2 (07:19→21:02)
[2020-02-24] MEDS: IPRATROPIUM BROMIDE 0.5 MG/2.5 ML NEBU NEB SCH ×4 (07:19→19:00)
[2020-02-24 07:34] VITALS: BP 128/86
[2020-02-24] MEDS: CHOLECALCIFEROL 400 UNITS TABLET GT SCH ×2 (09:07→21:53)
[2020-02-24] MEDS: PROTEIN SUPPLEMENT (PROSTAT) 30 ML LIQUID GT SCH ×2 (09:07→21:53)
[2020-02-24] MEDS: PHENYTOIN 100 MG/4 ML UDC GT SCH ×2 (09:07→21:53)
[2020-02-24] MEDS: PHENOBARBITAL 30 MG/7.5 ML LIQUID UDC GT SCH ×2 (09:07→21:53)
[2020-02-24] MEDS: Z GUARD REMEDY PASTE 57 GM TUBE TOP SCH ×2 (09:08→21:53)
[2020-02-24] MEDS: VITAMINS A AND D OINT TP SCH ×3 (09:08→21:53)
[2020-02-24] MEDS: CETAPHIL TOP SCH ×2 (09:08→21:53)
--- NOTE | 2020-02-24 16:49 | NUR ---
SEEN BY ELICEO BOOTH N.P. AND WITH NNO.
[2020-02-24] MEDS: MIRALAX 17 GM POWD.PACK GT SCH (21:53)
[2020-02-24 22:42] VITALS: BP 130/83
[2020-02-25] MEDS: JEVITY 1.2 1000 ML LIQUID GT PRN (01:49)
[2020-02-25] MEDS: OMEPRAZOLE 20 MG CAPSULE.DR GT SCH ×2 (05:33→20:58)
[2020-02-25] MEDS: IPRATROPIUM BROMIDE 0.5 MG/2.5 ML NEBU NEB SCH ×4 (07:18→19:13)
[2020-02-25] MEDS: ALBUTEROL SULFATE 2.5 MG/ 0.5 ML NEBU NEB SCH ×4 (07:18→19:13)
[2020-02-25 07:28] VITALS: BP 114/72
[2020-02-25] MEDS: CHOLECALCIFEROL 400 UNITS TABLET GT SCH ×2 (08:16→20:59)
[2020-02-25] MEDS: PHENOBARBITAL 30 MG/7.5 ML LIQUID UDC GT SCH ×2 (08:16→20:58)
[2020-02-25] MEDS: PROTEIN SUPPLEMENT (PROSTAT) 30 ML LIQUID GT SCH ×2 (08:16→20:58)
[2020-02-25] MEDS: Z GUARD REMEDY PASTE 57 GM TUBE TOP SCH ×2 (08:16→20:59)
[2020-02-25] MEDS: PHENYTOIN 100 MG/4 ML UDC GT SCH ×2 (08:16→20:58)
[2020-02-25] MEDS: VITAMINS A AND D OINT TP SCH ×3 (08:16→20:59)
[2020-02-25] MEDS: CETAPHIL TOP SCH ×2 (08:16→20:59)
[2020-02-25] MEDS: HYDROGEN PEROXIDE 3% 118 ML BOTTLE TOP SCH ×2 (08:40→21:05)
[2020-02-25] MEDS: MIRALAX 17 GM POWD.PACK GT SCH (20:58)
[2020-02-25 22:07] VITALS: BP 128/78
--- NOTE | 2020-02-26 00:02 | NUR ---
For COVID-19 testing tomorrow as per [facility] requirement.
[2020-02-26] MEDS: OMEPRAZOLE 20 MG CAPSULE.DR GT SCH ×2 (05:46→21:04)
[2020-02-26 07:29] VITALS: BP 129/79
[2020-02-26] MEDS: ALBUTEROL SULFATE 2.5 MG/ 0.5 ML NEBU NEB SCH ×4 (08:10→19:10)
[2020-02-26] MEDS: IPRATROPIUM BROMIDE 0.5 MG/2.5 ML NEBU NEB SCH ×4 (08:10→19:10)
[2020-02-26] MEDS: PHENOBARBITAL 30 MG/7.5 ML LIQUID UDC GT SCH ×2 (08:30→21:04)
[2020-02-26] MEDS: PROTEIN SUPPLEMENT (PROSTAT) 30 ML LIQUID GT SCH ×2 (08:30→21:04)
[2020-02-26] MEDS: PHENYTOIN 100 MG/4 ML UDC GT SCH ×2 (08:30→21:04)
[2020-02-26] MEDS: CETAPHIL TOP SCH ×2 (08:32→21:04)
[2020-02-26] MEDS: VITAMINS A AND D OINT TP SCH ×3 (08:32→21:04)
[2020-02-26] MEDS: CHOLECALCIFEROL 400 UNITS TABLET GT SCH ×2 (08:32→21:04)
[2020-02-26] MEDS: Z GUARD REMEDY PASTE 57 GM TUBE TOP SCH ×2 (08:32→21:04)
[2020-02-26] MEDS: HYDROGEN PEROXIDE 3% 118 ML BOTTLE TOP SCH ×2 (08:56→20:40)
--- NOTE | 2020-02-26 12:29 | NUR ---
PT'S MOTHER AWARE OF NEW ORDER FOR COVID 19 TEST AND IN AGREEMENT.
[2020-02-26] MEDS: MIRALAX 17 GM POWD.PACK GT SCH (21:04)
[2020-02-26 22:01] VITALS: BP 125/80
[2020-02-26] MEDS: JEVITY 1.2 1000 ML LIQUID GT PRN (22:36)
[2020-02-27] MEDS: JEVITY 1.2 1000 ML LIQUID GT PRN (05:00)
[2020-02-27] MEDS: OMEPRAZOLE 20 MG CAPSULE.DR GT SCH ×2 (05:28→21:19)
[2020-02-27 07:24] VITALS: BP 132/69
[2020-02-27] MEDS: IPRATROPIUM BROMIDE 0.5 MG/2.5 ML NEBU NEB SCH ×4 (08:00→19:20)
[2020-02-27] MEDS: ALBUTEROL SULFATE 2.5 MG/ 0.5 ML NEBU NEB SCH ×4 (08:00→19:20)
[2020-02-27] MEDS: PHENYTOIN 100 MG/4 ML UDC GT SCH ×2 (08:01→21:18)
[2020-02-27] MEDS: Z GUARD REMEDY PASTE 57 GM TUBE TOP SCH ×2 (08:01→21:19)
[2020-02-27] MEDS: PHENOBARBITAL 30 MG/7.5 ML LIQUID UDC GT SCH ×2 (08:01→21:19)
[2020-02-27] MEDS: PROTEIN SUPPLEMENT (PROSTAT) 30 ML LIQUID GT SCH ×2 (08:01→21:19)
[2020-02-27] MEDS: VITAMINS A AND D OINT TP SCH ×3 (08:01→21:19)
[2020-02-27] MEDS: CETAPHIL TOP SCH ×2 (08:01→21:19)
[2020-02-27] MEDS: CHOLECALCIFEROL 400 UNITS TABLET GT SCH ×2 (08:01→21:19)
[2020-02-27] MEDS: HYDROGEN PEROXIDE 3% 118 ML BOTTLE TOP SCH ×2 (08:39→21:33)
--- NOTE | 2020-02-27 18:19 | NUR ---
COVID 19 TEST NEGATIVE,PT'S MOTHER AWARE AFTER 3 TIMES TRYING TO CALL HER D/T HER VOICE MAIL IS FULL.
[2020-02-27] MEDS: MIRALAX 17 GM POWD.PACK GT SCH (21:18)
[2020-02-27 22:04] VITALS: BP 132/78
[2020-02-28] MEDS: OMEPRAZOLE 20 MG CAPSULE.DR GT SCH ×2 (07:00→21:41)
[2020-02-28 07:31] VITALS: BP 119/74
[2020-02-28] MEDS: ALBUTEROL SULFATE 2.5 MG/ 0.5 ML NEBU NEB SCH ×4 (07:51→18:58)
[2020-02-28] MEDS: IPRATROPIUM BROMIDE 0.5 MG/2.5 ML NEBU NEB SCH ×4 (07:51→18:58)
[2020-02-28] MEDS: HYDROGEN PEROXIDE 3% 118 ML BOTTLE TOP SCH ×2 (07:51→21:16)
[2020-02-28] MEDS: PROTEIN SUPPLEMENT (PROSTAT) 30 ML LIQUID GT SCH ×2 (08:01→21:41)
[2020-02-28] MEDS: PHENOBARBITAL 30 MG/7.5 ML LIQUID UDC GT SCH ×2 (08:01→21:41)
[2020-02-28] MEDS: PHENYTOIN 100 MG/4 ML UDC GT SCH ×2 (08:01→21:40)
[2020-02-28] MEDS: CHOLECALCIFEROL 400 UNITS TABLET GT SCH ×2 (08:01→21:41)
[2020-02-28] MEDS: VITAMINS A AND D OINT TP SCH ×3 (08:02→21:42)
[2020-02-28] MEDS: Z GUARD REMEDY PASTE 57 GM TUBE TOP SCH ×2 (08:02→21:42)
[2020-02-28] MEDS: CETAPHIL TOP SCH ×2 (08:02→21:42)
[2020-02-28] MEDS: JEVITY 1.2 1000 ML LIQUID GT PRN (18:28)
[2020-02-28 20:00] VITALS: BP 135/92
[2020-02-28] MEDS: MIRALAX 17 GM POWD.PACK GT SCH (21:41)
[2020-02-29] MEDS: OMEPRAZOLE 20 MG CAPSULE.DR GT SCH ×2 (06:46→21:32)
[2020-02-29 07:23] VITALS: BP 121/72
[2020-02-29] MEDS: IPRATROPIUM BROMIDE 0.5 MG/2.5 ML NEBU NEB SCH ×4 (07:30→19:02)
[2020-02-29] MEDS: ALBUTEROL SULFATE 2.5 MG/ 0.5 ML NEBU NEB SCH ×4 (07:30→19:02)
[2020-02-29] MEDS: HYDROGEN PEROXIDE 3% 118 ML BOTTLE TOP SCH ×2 (08:51→20:58)
[2020-02-29] MEDS: PHENOBARBITAL 30 MG/7.5 ML LIQUID UDC GT SCH ×2 (09:07→21:32)
[2020-02-29] MEDS: CHOLECALCIFEROL 400 UNITS TABLET GT SCH ×2 (09:07→21:32)
[2020-02-29] MEDS: CETAPHIL TOP SCH ×2 (09:07→21:33)
[2020-02-29] MEDS: PROTEIN SUPPLEMENT (PROSTAT) 30 ML LIQUID GT SCH ×2 (09:07→21:32)
[2020-02-29] MEDS: PHENYTOIN 100 MG/4 ML UDC GT SCH ×2 (09:07→21:31)
[2020-02-29] MEDS: VITAMINS A AND D OINT TP SCH ×3 (09:08→21:33)
[2020-02-29] MEDS: Z GUARD REMEDY PASTE 57 GM TUBE TOP SCH ×2 (09:08→21:33)
[2020-02-29] MEDS: JEVITY 1.2 1000 ML LIQUID GT PRN (14:29)
[2020-02-29 20:00] VITALS: BP 137/83
[2020-02-29] MEDS: MIRALAX 17 GM POWD.PACK GT SCH (21:31)
--- NOTE | 2020-03-01 05:28 | NUR ---
Patient is afebrile, noted with clear drainage from old gt site, cleansed and initiated in-house treatment with triple antibiotic and cover with dry dressing every shift X 21 days, no redness noted, kept skin clean and dry.
[2020-03-01] MEDS: OMEPRAZOLE 20 MG CAPSULE.DR GT SCH ×2 (05:58→21:54)
--- NOTE | 2020-03-01 06:27 | NUR ---
Seen and examined by Fanny No NP with no new orders.
[2020-03-01 07:24] VITALS: BP 126/69
[2020-03-01] MEDS: HYDROGEN PEROXIDE 3% 118 ML BOTTLE TOP SCH ×2 (07:38→21:35)
[2020-03-01] MEDS: ALBUTEROL SULFATE 2.5 MG/ 0.5 ML NEBU NEB SCH ×4 (07:38→19:33)
[2020-03-01] MEDS: IPRATROPIUM BROMIDE 0.5 MG/2.5 ML NEBU NEB SCH ×4 (07:38→19:33)
[2020-03-01] MEDS: PHENYTOIN 100 MG/4 ML UDC GT SCH ×2 (08:03→21:54)
[2020-03-01] MEDS: CETAPHIL TOP SCH ×2 (08:05→21:55)
[2020-03-01] MEDS: PHENOBARBITAL 30 MG/7.5 ML LIQUID UDC GT SCH ×2 (08:05→21:54)
[2020-03-01] MEDS: NEOMY/BACITRA/POLYMYXIN B OINT UD PACKET TP SCH ×2 (08:05→21:55)
[2020-03-01] MEDS: PROTEIN SUPPLEMENT (PROSTAT) 30 ML LIQUID GT SCH ×2 (08:05→21:54)
[2020-03-01] MEDS: VITAMINS A AND D OINT TP SCH ×3 (08:05→21:55)
[2020-03-01] MEDS: CHOLECALCIFEROL 400 UNITS TABLET GT SCH ×2 (08:05→21:55)
[2020-03-01] MEDS: Z GUARD REMEDY PASTE 57 GM TUBE TOP SCH ×2 (08:05→21:55)
[2020-03-01] MEDS: JEVITY 1.2 1000 ML LIQUID GT PRN (14:39)
[2020-03-01 20:00] VITALS: BP 131/79
[2020-03-01] MEDS: MIRALAX 17 GM POWD.PACK GT SCH (21:54)
[2020-03-02] MEDS: OMEPRAZOLE 20 MG CAPSULE.DR GT SCH ×2 (05:32→21:00)
[2020-03-02] MEDS: JEVITY 1.2 1000 ML LIQUID GT PRN (06:05)
[2020-03-02] MEDS: HYDROGEN PEROXIDE 3% 118 ML BOTTLE TOP SCH ×2 (07:14→21:32)
[2020-03-02] MEDS: ALBUTEROL SULFATE 2.5 MG/ 0.5 ML NEBU NEB SCH ×4 (07:14→18:24)
[2020-03-02] MEDS: IPRATROPIUM BROMIDE 0.5 MG/2.5 ML NEBU NEB SCH ×4 (07:14→18:24)
[2020-03-02 07:30] VITALS: BP 125/84
[2020-03-02] MEDS: PHENOBARBITAL 30 MG/7.5 ML LIQUID UDC GT SCH ×2 (08:46→21:00)
[2020-03-02] MEDS: PROTEIN SUPPLEMENT (PROSTAT) 30 ML LIQUID GT SCH ×2 (08:46→21:00)
[2020-03-02] MEDS: PHENYTOIN 100 MG/4 ML UDC GT SCH ×2 (08:46→21:00)
[2020-03-02] MEDS: Z GUARD REMEDY PASTE 57 GM TUBE TOP SCH ×2 (08:50→21:00)
[2020-03-02] MEDS: CETAPHIL TOP SCH ×2 (08:50→21:00)
[2020-03-02] MEDS: CHOLECALCIFEROL 400 UNITS TABLET GT SCH ×2 (08:50→21:00)
[2020-03-02] MEDS: NEOMY/BACITRA/POLYMYXIN B OINT UD PACKET TP SCH ×2 (08:51→21:00)
[2020-03-02] MEDS: VITAMINS A AND D OINT TP SCH ×3 (08:51→21:00)
[2020-03-02 20:00] VITALS: BP 131/80
[2020-03-02] MEDS: MIRALAX 17 GM POWD.PACK GT SCH (21:00)
[2020-03-03] MEDS: JEVITY 1.2 1000 ML LIQUID GT PRN (03:51)
[2020-03-03] MEDS: OMEPRAZOLE 20 MG CAPSULE.DR GT SCH ×2 (05:34→21:00)
[2020-03-03] MEDS: IPRATROPIUM BROMIDE 0.5 MG/2.5 ML NEBU NEB SCH ×4 (07:18→19:38)
[2020-03-03] MEDS: ALBUTEROL SULFATE 2.5 MG/ 0.5 ML NEBU NEB SCH ×4 (07:18→19:38)
[2020-03-03 07:31] VITALS: BP 131/85
[2020-03-03] MEDS: PHENOBARBITAL 30 MG/7.5 ML LIQUID UDC GT SCH ×2 (08:05→21:00)
[2020-03-03] MEDS: PHENYTOIN 100 MG/4 ML UDC GT SCH ×2 (08:05→21:00)
[2020-03-03] MEDS: VITAMINS A AND D OINT TP SCH ×3 (08:05→21:00)
[2020-03-03] MEDS: CHOLECALCIFEROL 400 UNITS TABLET GT SCH ×2 (08:05→21:00)
[2020-03-03] MEDS: PROTEIN SUPPLEMENT (PROSTAT) 30 ML LIQUID GT SCH ×2 (08:05→21:00)
[2020-03-03] MEDS: CETAPHIL TOP SCH ×2 (08:05→21:00)
[2020-03-03] MEDS: Z GUARD REMEDY PASTE 57 GM TUBE TOP SCH ×2 (08:05→21:00)
[2020-03-03] MEDS: NEOMY/BACITRA/POLYMYXIN B OINT UD PACKET TP SCH ×2 (08:05→21:00)
[2020-03-03] MEDS: HYDROGEN PEROXIDE 3% 118 ML BOTTLE TOP SCH ×2 (09:27→21:37)
--- NOTE | 2020-03-03 11:05 | NUR ---
Spoke with Mother, notified covid19 test will be done today, mother requested to be call for results only.
[2020-03-03 20:00] VITALS: BP 119/79
[2020-03-03] MEDS: MIRALAX 17 GM POWD.PACK GT SCH (21:00)
[2020-03-04] MEDS: JEVITY 1.2 1000 ML LIQUID GT PRN (04:25)
[2020-03-04] MEDS: OMEPRAZOLE 20 MG CAPSULE.DR GT SCH ×2 (05:44→21:08)
[2020-03-04] MEDS: IPRATROPIUM BROMIDE 0.5 MG/2.5 ML NEBU NEB SCH ×4 (07:18→19:50)
[2020-03-04] MEDS: ALBUTEROL SULFATE 2.5 MG/ 0.5 ML NEBU NEB SCH ×4 (07:18→19:50)
[2020-03-04 07:46] VITALS: BP 125/83
[2020-03-04] MEDS: PROTEIN SUPPLEMENT (PROSTAT) 30 ML LIQUID GT SCH ×2 (08:34→21:08)
[2020-03-04] MEDS: CHOLECALCIFEROL 400 UNITS TABLET GT SCH ×2 (08:34→21:08)
[2020-03-04] MEDS: PHENOBARBITAL 30 MG/7.5 ML LIQUID UDC GT SCH ×2 (08:34→21:08)
[2020-03-04] MEDS: PHENYTOIN 100 MG/4 ML UDC GT SCH ×2 (08:34→21:08)
[2020-03-04] MEDS: NEOMY/BACITRA/POLYMYXIN B OINT UD PACKET TP SCH ×2 (08:34→21:09)
[2020-03-04] MEDS: CETAPHIL TOP SCH ×2 (08:34→21:09)
[2020-03-04] MEDS: Z GUARD REMEDY PASTE 57 GM TUBE TOP SCH ×2 (08:34→21:09)
[2020-03-04] MEDS: VITAMINS A AND D OINT TP SCH ×3 (08:35→21:09)
[2020-03-04] MEDS: HYDROGEN PEROXIDE 3% 118 ML BOTTLE TOP SCH ×2 (08:50→19:48)
[2020-03-04 20:24] VITALS: BP 133/74
[2020-03-04] MEDS: MIRALAX 17 GM POWD.PACK GT SCH (21:08)
[2020-03-05] MEDS: JEVITY 1.2 1000 ML LIQUID GT PRN ×2 (03:00→20:45)
[2020-03-05] MEDS: OMEPRAZOLE 20 MG CAPSULE.DR GT SCH ×2 (05:51→20:40)
[2020-03-05] MEDS: IPRATROPIUM BROMIDE 0.5 MG/2.5 ML NEBU NEB SCH ×4 (07:22→19:00)
[2020-03-05] MEDS: ALBUTEROL SULFATE 2.5 MG/ 0.5 ML NEBU NEB SCH ×4 (07:22→19:00)
[2020-03-05 07:30] VITALS: BP 133/79
[2020-03-05] MEDS: PHENOBARBITAL 30 MG/7.5 ML LIQUID UDC GT SCH ×2 (08:28→20:40)
[2020-03-05] MEDS: CHOLECALCIFEROL 400 UNITS TABLET GT SCH ×2 (08:28→20:41)
[2020-03-05] MEDS: PROTEIN SUPPLEMENT (PROSTAT) 30 ML LIQUID GT SCH ×2 (08:28→20:40)
[2020-03-05] MEDS: Z GUARD REMEDY PASTE 57 GM TUBE TOP SCH ×2 (08:28→20:41)
[2020-03-05] MEDS: PHENYTOIN 100 MG/4 ML UDC GT SCH ×2 (08:28→20:39)
[2020-03-05] MEDS: CETAPHIL TOP SCH ×2 (08:28→20:41)
[2020-03-05] MEDS: NEOMY/BACITRA/POLYMYXIN B OINT UD PACKET TP SCH ×2 (08:29→20:41)
[2020-03-05] MEDS: VITAMINS A AND D OINT TP SCH ×3 (08:29→20:41)
[2020-03-05] MEDS: HYDROGEN PEROXIDE 3% 118 ML BOTTLE TOP SCH ×2 (09:00→21:06)
[2020-03-05 19:59] VITALS: BP 139/80
[2020-03-05] MEDS: MIRALAX 17 GM POWD.PACK GT SCH (20:40)
[2020-03-06] MEDS: OMEPRAZOLE 20 MG CAPSULE.DR GT SCH ×2 (05:14→21:02)
[2020-03-06] MEDS: ALBUTEROL SULFATE 2.5 MG/ 0.5 ML NEBU NEB SCH ×4 (07:10→19:15)
[2020-03-06] MEDS: IPRATROPIUM BROMIDE 0.5 MG/2.5 ML NEBU NEB SCH ×4 (07:10→19:15)
[2020-03-06 07:31] VITALS: BP 126/78
[2020-03-06] MEDS: HYDROGEN PEROXIDE 3% 118 ML BOTTLE TOP SCH ×2 (09:10→21:10)
[2020-03-06] MEDS: PHENYTOIN 100 MG/4 ML UDC GT SCH ×2 (09:30→21:02)
[2020-03-06] MEDS: CHOLECALCIFEROL 400 UNITS TABLET GT SCH ×2 (09:30→21:02)
[2020-03-06] MEDS: PHENOBARBITAL 30 MG/7.5 ML LIQUID UDC GT SCH ×2 (09:30→21:02)
[2020-03-06] MEDS: VITAMINS A AND D OINT TP SCH ×3 (09:30→21:03)
[2020-03-06] MEDS: Z GUARD REMEDY PASTE 57 GM TUBE TOP SCH ×2 (09:30→21:03)
[2020-03-06] MEDS: CETAPHIL TOP SCH ×2 (09:30→21:02)
[2020-03-06] MEDS: NEOMY/BACITRA/POLYMYXIN B OINT UD PACKET TP SCH ×2 (09:30→21:03)
[2020-03-06] MEDS: PROTEIN SUPPLEMENT (PROSTAT) 30 ML LIQUID GT SCH ×2 (09:30→21:02)
[2020-03-06 20:20] VITALS: BP 132/77
[2020-03-06] MEDS: MIRALAX 17 GM POWD.PACK GT SCH (21:02)
[2020-03-07] MEDS: OMEPRAZOLE 20 MG CAPSULE.DR GT SCH ×2 (05:53→21:11)
[2020-03-07] MEDS: ALBUTEROL SULFATE 2.5 MG/ 0.5 ML NEBU NEB SCH ×4 (07:05→19:00)
[2020-03-07] MEDS: HYDROGEN PEROXIDE 3% 118 ML BOTTLE TOP SCH ×2 (07:05→21:57)
[2020-03-07] MEDS: IPRATROPIUM BROMIDE 0.5 MG/2.5 ML NEBU NEB SCH ×4 (07:05→19:00)
[2020-03-07 07:28] VITALS: BP 135/72
[2020-03-07] MEDS: PHENOBARBITAL 30 MG/7.5 ML LIQUID UDC GT SCH ×2 (08:41→21:09)
[2020-03-07] MEDS: PROTEIN SUPPLEMENT (PROSTAT) 30 ML LIQUID GT SCH ×2 (08:41→21:11)
[2020-03-07] MEDS: Z GUARD REMEDY PASTE 57 GM TUBE TOP SCH ×2 (08:41→21:11)
[2020-03-07] MEDS: CETAPHIL TOP SCH ×2 (08:41→21:11)
[2020-03-07] MEDS: CHOLECALCIFEROL 400 UNITS TABLET GT SCH ×2 (08:41→21:11)
[2020-03-07] MEDS: PHENYTOIN 100 MG/4 ML UDC GT SCH ×2 (08:41→21:09)
[2020-03-07] MEDS: NEOMY/BACITRA/POLYMYXIN B OINT UD PACKET TP SCH ×2 (08:42→21:11)
[2020-03-07] MEDS: VITAMINS A AND D OINT TP SCH ×3 (08:42→21:11)
[2020-03-07 20:00] VITALS: BP 117/80
[2020-03-07] MEDS: MIRALAX 17 GM POWD.PACK GT SCH (21:09)
[2020-03-08] MEDS: OMEPRAZOLE 20 MG CAPSULE.DR GT SCH ×2 (06:30→21:00)
[2020-03-08 07:32] VITALS: BP 131/77
[2020-03-08] MEDS: ALBUTEROL SULFATE 2.5 MG/ 0.5 ML NEBU NEB SCH ×5 (08:00→19:08)
[2020-03-08] MEDS: IPRATROPIUM BROMIDE 0.5 MG/2.5 ML NEBU NEB SCH ×5 (08:00→19:08)
[2020-03-08] MEDS: PHENOBARBITAL 30 MG/7.5 ML LIQUID UDC GT SCH ×2 (09:04→21:28)
[2020-03-08] MEDS: PHENYTOIN 100 MG/4 ML UDC GT SCH ×2 (09:05→21:28)
[2020-03-08] MEDS: CHOLECALCIFEROL 400 UNITS TABLET GT SCH ×2 (09:17→21:28)
[2020-03-08] MEDS: PROTEIN SUPPLEMENT (PROSTAT) 30 ML LIQUID GT SCH ×2 (09:17→21:28)
[2020-03-08] MEDS: NEOMY/BACITRA/POLYMYXIN B OINT UD PACKET TP SCH ×2 (09:18→21:29)
[2020-03-08] MEDS: VITAMINS A AND D OINT TP SCH ×3 (09:18→21:29)
[2020-03-08] MEDS: Z GUARD REMEDY PASTE 57 GM TUBE TOP SCH ×2 (09:18→21:29)
[2020-03-08] MEDS: CETAPHIL TOP SCH ×2 (09:18→21:29)
[2020-03-08] MEDS: HYDROGEN PEROXIDE 3% 118 ML BOTTLE TOP SCH ×2 (09:19→21:16)
[2020-03-08 20:00] VITALS: BP 138/86
[2020-03-08] MEDS: MIRALAX 17 GM POWD.PACK GT SCH (21:28)
[2020-03-09] MEDS: OMEPRAZOLE 20 MG CAPSULE.DR GT SCH ×2 (05:30→21:00)
[2020-03-09 07:48] VITALS: BP 128/80
[2020-03-09] MEDS: IPRATROPIUM BROMIDE 0.5 MG/2.5 ML NEBU NEB SCH ×4 (08:00→18:40)
[2020-03-09] MEDS: ALBUTEROL SULFATE 2.5 MG/ 0.5 ML NEBU NEB SCH ×4 (08:00→18:40)
[2020-03-09] MEDS: PHENYTOIN 100 MG/4 ML UDC GT SCH ×2 (08:13→21:00)
[2020-03-09] MEDS: NEOMY/BACITRA/POLYMYXIN B OINT UD PACKET TP SCH ×2 (08:13→21:00)
[2020-03-09] MEDS: CHOLECALCIFEROL 400 UNITS TABLET GT SCH ×2 (08:13→21:00)
[2020-03-09] MEDS: VITAMINS A AND D OINT TP SCH ×3 (08:13→21:00)
[2020-03-09] MEDS: PROTEIN SUPPLEMENT (PROSTAT) 30 ML LIQUID GT SCH ×2 (08:13→21:00)
[2020-03-09] MEDS: CETAPHIL TOP SCH ×2 (08:13→21:00)
[2020-03-09] MEDS: Z GUARD REMEDY PASTE 57 GM TUBE TOP SCH ×2 (08:13→21:00)
[2020-03-09] MEDS: PHENOBARBITAL 30 MG/7.5 ML LIQUID UDC GT SCH ×2 (08:13→21:00)
[2020-03-09] MEDS: HYDROGEN PEROXIDE 3% 118 ML BOTTLE TOP SCH ×2 (09:00→21:35)
--- NOTE | 2020-03-09 12:05 | NUR ---
Spoke with Pt's Mother KAUSHIK Blair. Verbal consent given by KAUSHIK Blair for patient to receive COVID 19 Vaccine.
[2020-03-09 20:00] VITALS: BP 124/73
[2020-03-09] MEDS: MIRALAX 17 GM POWD.PACK GT SCH (21:00)
[2020-03-10] MEDS: OMEPRAZOLE 20 MG CAPSULE.DR GT SCH ×2 (05:34→21:14)
[2020-03-10] MEDS: IPRATROPIUM BROMIDE 0.5 MG/2.5 ML NEBU NEB SCH ×4 (07:13→18:41)
[2020-03-10] MEDS: ALBUTEROL SULFATE 2.5 MG/ 0.5 ML NEBU NEB SCH ×4 (07:13→18:41)
[2020-03-10 08:05] VITALS: BP 123/75
[2020-03-10] MEDS: HYDROGEN PEROXIDE 3% 118 ML BOTTLE TOP SCH ×2 (09:00→21:33)
[2020-03-10] MEDS: PHENOBARBITAL 30 MG/7.5 ML LIQUID UDC GT SCH ×2 (09:31→21:13)
[2020-03-10] MEDS: PHENYTOIN 100 MG/4 ML UDC GT SCH ×2 (09:31→21:13)
[2020-03-10] MEDS: Z GUARD REMEDY PASTE 57 GM TUBE TOP SCH ×2 (09:32→21:15)
[2020-03-10] MEDS: VITAMINS A AND D OINT TP SCH ×3 (09:32→21:15)
[2020-03-10] MEDS: CETAPHIL TOP SCH ×2 (09:32→21:15)
[2020-03-10] MEDS: NEOMY/BACITRA/POLYMYXIN B OINT UD PACKET TP SCH ×2 (09:32→21:15)
[2020-03-10] MEDS: CHOLECALCIFEROL 400 UNITS TABLET GT SCH ×2 (09:32→21:15)
[2020-03-10] MEDS: PROTEIN SUPPLEMENT (PROSTAT) 30 ML LIQUID GT SCH ×2 (09:32→21:15)
[2020-03-10] MEDS: JEVITY 1.2 1000 ML LIQUID GT PRN (18:46)
[2020-03-10] MEDS: MIRALAX 17 GM POWD.PACK GT SCH (21:13)
[2020-03-11 01:49] VITALS: BP 120/79
[2020-03-11] MEDS: OMEPRAZOLE 20 MG CAPSULE.DR GT SCH ×2 (05:43→21:06)
[2020-03-11] MEDS: ALBUTEROL SULFATE 2.5 MG/ 0.5 ML NEBU NEB SCH ×4 (07:10→18:03)
[2020-03-11] MEDS: HYDROGEN PEROXIDE 3% 118 ML BOTTLE TOP SCH ×2 (07:10→21:06)
[2020-03-11] MEDS: IPRATROPIUM BROMIDE 0.5 MG/2.5 ML NEBU NEB SCH ×4 (07:10→18:03)
[2020-03-11 08:01] VITALS: BP 125/81
[2020-03-11] MEDS: PHENYTOIN 100 MG/4 ML UDC GT SCH ×2 (09:33→21:06)
[2020-03-11] MEDS: CHOLECALCIFEROL 400 UNITS TABLET GT SCH ×2 (09:37→21:06)
[2020-03-11] MEDS: PHENOBARBITAL 30 MG/7.5 ML LIQUID UDC GT SCH ×2 (09:37→21:06)
[2020-03-11] MEDS: PROTEIN SUPPLEMENT (PROSTAT) 30 ML LIQUID GT SCH ×2 (09:37→21:06)
[2020-03-11] MEDS: CETAPHIL TOP SCH ×2 (09:38→21:06)
[2020-03-11] MEDS: Z GUARD REMEDY PASTE 57 GM TUBE TOP SCH ×2 (09:38→21:06)
[2020-03-11] MEDS: VITAMINS A AND D OINT TP SCH ×3 (09:39→21:06)
[2020-03-11] MEDS: NEOMY/BACITRA/POLYMYXIN B OINT UD PACKET TP SCH ×2 (09:39→21:06)
[2020-03-11] MEDS: MIRALAX 17 GM POWD.PACK GT SCH (21:06)
[2020-03-11 21:54] VITALS: BP 126/78
--- NOTE | 2020-03-12 02:33 | NUR ---
Jose Ramon from the Lab called RE: Patient's covid 19 result is negative.
[2020-03-12] MEDS: OMEPRAZOLE 20 MG CAPSULE.DR GT SCH ×2 (05:57→21:00)
[2020-03-12] MEDS: ALBUTEROL SULFATE 2.5 MG/ 0.5 ML NEBU NEB SCH ×4 (07:39→18:37)
[2020-03-12] MEDS: IPRATROPIUM BROMIDE 0.5 MG/2.5 ML NEBU NEB SCH ×4 (07:39→18:37)
[2020-03-12] MEDS: HYDROGEN PEROXIDE 3% 118 ML BOTTLE TOP SCH ×2 (07:39→21:34)
[2020-03-12 07:43] VITALS: BP 118/72
[2020-03-12] MEDS: NEOMY/BACITRA/POLYMYXIN B OINT UD PACKET TP SCH ×2 (09:00→21:00)
[2020-03-12] MEDS: Z GUARD REMEDY PASTE 57 GM TUBE TOP SCH ×2 (09:00→21:00)
[2020-03-12] MEDS: CHOLECALCIFEROL 400 UNITS TABLET GT SCH ×2 (09:00→21:00)
[2020-03-12] MEDS: PHENOBARBITAL 30 MG/7.5 ML LIQUID UDC GT SCH ×2 (09:00→21:00)
[2020-03-12] MEDS: PHENYTOIN 100 MG/4 ML UDC GT SCH ×2 (09:00→21:00)
[2020-03-12] MEDS: CETAPHIL TOP SCH ×2 (09:00→21:00)
[2020-03-12] MEDS: PROTEIN SUPPLEMENT (PROSTAT) 30 ML LIQUID GT SCH ×2 (09:00→21:00)
[2020-03-12] MEDS: VITAMINS A AND D OINT TP SCH ×3 (09:00→21:00)
--- NOTE | 2020-03-12 09:10 | NUR ---
PT'S MOTHER AWARE THAT COVID 19 TEST IS NEGATIVE FROM 03/09/20.
[2020-03-12] MEDS: JEVITY 1.2 1000 ML LIQUID GT PRN (10:47)
[2020-03-12] MEDS: MIRALAX 17 GM POWD.PACK GT SCH (21:00)
[2020-03-12 22:23] VITALS: BP 117/79
[2020-03-13] MEDS: OMEPRAZOLE 20 MG CAPSULE.DR GT SCH ×2 (05:48→21:00)
[2020-03-13] MEDS: JEVITY 1.2 1000 ML LIQUID GT PRN (06:19)
[2020-03-13] MEDS: IPRATROPIUM BROMIDE 0.5 MG/2.5 ML NEBU NEB SCH ×4 (07:21→19:12)
[2020-03-13] MEDS: ALBUTEROL SULFATE 2.5 MG/ 0.5 ML NEBU NEB SCH ×4 (07:21→19:12)
[2020-03-13 07:30] VITALS: BP 140/89
[2020-03-13] MEDS: PHENYTOIN 100 MG/4 ML UDC GT SCH ×2 (08:24→21:00)
[2020-03-13] MEDS: PHENOBARBITAL 30 MG/7.5 ML LIQUID UDC GT SCH ×2 (08:25→21:00)
[2020-03-13] MEDS: PROTEIN SUPPLEMENT (PROSTAT) 30 ML LIQUID GT SCH ×2 (08:25→21:00)
[2020-03-13] MEDS: NEOMY/BACITRA/POLYMYXIN B OINT UD PACKET TP SCH ×2 (08:26→21:00)
[2020-03-13] MEDS: VITAMINS A AND D OINT TP SCH ×3 (08:26→21:00)
[2020-03-13] MEDS: CETAPHIL TOP SCH ×2 (08:26→21:00)
[2020-03-13] MEDS: Z GUARD REMEDY PASTE 57 GM TUBE TOP SCH ×2 (08:26→21:00)
[2020-03-13] MEDS: CHOLECALCIFEROL 400 UNITS TABLET GT SCH ×2 (08:26→21:00)
[2020-03-13] MEDS: HYDROGEN PEROXIDE 3% 118 ML BOTTLE TOP SCH ×2 (09:56→21:00)
[2020-03-13 20:42] VITALS: BP 139/77
[2020-03-13] MEDS: MIRALAX 17 GM POWD.PACK GT SCH (21:00)
[2020-03-14] MEDS: OMEPRAZOLE 20 MG CAPSULE.DR GT SCH ×2 (05:51→21:48)
[2020-03-14] MEDS: ALBUTEROL SULFATE 2.5 MG/ 0.5 ML NEBU NEB SCH ×5 (07:20→18:37)
[2020-03-14] MEDS: IPRATROPIUM BROMIDE 0.5 MG/2.5 ML NEBU NEB SCH ×5 (07:20→18:37)
[2020-03-14] MEDS: HYDROGEN PEROXIDE 3% 118 ML BOTTLE TOP SCH ×2 (07:21→21:46)
[2020-03-14] MEDS: JEVITY 1.2 1000 ML LIQUID GT PRN (07:23)
[2020-03-14 07:31] VITALS: BP 130/76
[2020-03-14] MEDS: PHENYTOIN 100 MG/4 ML UDC GT SCH ×2 (08:11→21:48)
[2020-03-14] MEDS: PHENOBARBITAL 30 MG/7.5 ML LIQUID UDC GT SCH ×2 (08:13→21:48)
[2020-03-14] MEDS: CETAPHIL TOP SCH ×2 (08:13→21:48)
[2020-03-14] MEDS: PROTEIN SUPPLEMENT (PROSTAT) 30 ML LIQUID GT SCH ×2 (08:13→21:48)
[2020-03-14] MEDS: Z GUARD REMEDY PASTE 57 GM TUBE TOP SCH ×2 (08:13→21:48)
[2020-03-14] MEDS: NEOMY/BACITRA/POLYMYXIN B OINT UD PACKET TP SCH ×2 (08:13→21:48)
[2020-03-14] MEDS: CHOLECALCIFEROL 400 UNITS TABLET GT SCH ×2 (08:13→21:48)
[2020-03-14] MEDS: VITAMINS A AND D OINT TP SCH ×3 (08:14→21:48)
--- NOTE | 2020-03-14 19:45 | NUR ---
New orders to Give COVID vaccine x 1 carried out.
[2020-03-14 20:00] VITALS: BP 140/77
[2020-03-14] MEDS: MIRALAX 17 GM POWD.PACK GT SCH (21:48)
[2020-03-15] MEDS: JEVITY 1.2 1000 ML LIQUID GT PRN (03:15)
[2020-03-15] MEDS: OMEPRAZOLE 20 MG CAPSULE.DR GT SCH ×2 (06:01→21:59)
[2020-03-15] MEDS: IPRATROPIUM BROMIDE 0.5 MG/2.5 ML NEBU NEB SCH ×4 (07:10→18:47)
[2020-03-15] MEDS: HYDROGEN PEROXIDE 3% 118 ML BOTTLE TOP SCH ×2 (07:10→21:25)
[2020-03-15] MEDS: ALBUTEROL SULFATE 2.5 MG/ 0.5 ML NEBU NEB SCH ×4 (07:10→18:47)
[2020-03-15 07:29] VITALS: BP 142/79
[2020-03-15] MEDS: CHOLECALCIFEROL 400 UNITS TABLET GT SCH ×2 (08:32→21:59)
[2020-03-15] MEDS: PROTEIN SUPPLEMENT (PROSTAT) 30 ML LIQUID GT SCH ×2 (08:32→21:59)
[2020-03-15] MEDS: CETAPHIL TOP SCH ×2 (08:32→21:59)
[2020-03-15] MEDS: PHENYTOIN 100 MG/4 ML UDC GT SCH ×2 (08:32→21:59)
[2020-03-15] MEDS: PHENOBARBITAL 30 MG/7.5 ML LIQUID UDC GT SCH ×2 (08:32→21:59)
[2020-03-15] MEDS: NEOMY/BACITRA/POLYMYXIN B OINT UD PACKET TP SCH ×2 (08:33→21:59)
[2020-03-15] MEDS: VITAMINS A AND D OINT TP SCH ×3 (08:33→21:59)
[2020-03-15] MEDS: Z GUARD REMEDY PASTE 57 GM TUBE TOP SCH ×2 (09:00→21:59)
--- NOTE | 2020-03-15 17:45 | NUR ---
PT. HAD COVID 19 VACCINE ON RT. DELTOID.
--- NOTE | 2020-03-15 17:46 | NUR ---
PT'S MOTHER WAS CALLED AND AWARE OF COVID 19 VACCINE ADMINISTRATION GIVEN BY MR. HANLEY AND NO A/R AND SHE WANTS TO BE NOTIFIED IF ANY REACTION HAPPENS.
[2020-03-15 20:32] VITALS: BP 129/78
[2020-03-15] MEDS: MIRALAX 17 GM POWD.PACK GT SCH (21:59)
[~2020-03-16] VITALS: Ht 177.8 cm; Wt 88.5 kg
[2020-03-16] MEDS: OMEPRAZOLE 20 MG CAPSULE.DR GT SCH ×2 (06:07→21:42)
[2020-03-16] MEDS: ALBUTEROL SULFATE 2.5 MG/ 0.5 ML NEBU NEB SCH ×4 (07:10→18:04)
[2020-03-16] MEDS: IPRATROPIUM BROMIDE 0.5 MG/2.5 ML NEBU NEB SCH ×4 (07:10→18:04)
[2020-03-16 08:25] VITALS: BP 113/79
[2020-03-16] MEDS: CETAPHIL TOP SCH ×2 (09:00→21:42)
[2020-03-16] MEDS: Z GUARD REMEDY PASTE 57 GM TUBE TOP SCH ×2 (09:00→21:42)
[2020-03-16] MEDS: NEOMY/BACITRA/POLYMYXIN B OINT UD PACKET TP SCH ×2 (09:00→21:42)
[2020-03-16] MEDS: VITAMINS A AND D OINT TP SCH ×3 (09:00→21:42)
[2020-03-16] MEDS: PHENOBARBITAL 30 MG/7.5 ML LIQUID UDC GT SCH ×2 (09:00→21:42)
[2020-03-16] MEDS: PROTEIN SUPPLEMENT (PROSTAT) 30 ML LIQUID GT SCH ×2 (09:00→21:42)
[2020-03-16] MEDS: CHOLECALCIFEROL 400 UNITS TABLET GT SCH ×2 (09:00→21:42)
[2020-03-16] MEDS: PHENYTOIN 100 MG/4 ML UDC GT SCH ×2 (09:00→21:38)
[2020-03-16] MEDS: HYDROGEN PEROXIDE 3% 118 ML BOTTLE TOP SCH ×2 (09:18→20:32)
--- NOTE | 2020-03-16 19:03 | NUR ---
CONTINUE TO MONITOR PATIENT S/P COVID-19 VACCINATION. NOTE S/S OF VACCINE REACTION NOTED. WILL CONTINUE TO MONITOR.
[2020-03-16] MEDS: JEVITY 1.2 1000 ML LIQUID GT PRN (21:35)
[2020-03-16] MEDS: MIRALAX 17 GM POWD.PACK GT SCH (21:42)
[2020-03-16 22:50] VITALS: BP 131/74
--- NOTE | 2020-03-16 23:28 | NUR ---
Patient is afebrile, no signs of any adverse reactions noted from the COVID-19 vaccine.
[~2020-03-16 23:59] MED LIST: ACET-2154 GT; ACETAMINOPHEN 650 MG/20.3 ML LIQUID UDC GT PRN; ALBU2.5V13 NEB; ALBUTEROL SULFATE 2.5 MG/3 ML NEBU NEB PRN; BETA15CR4 TP; CEFE1PIG3 IV; CHOL400T GT; CLOT15CR27 TP; COD LIVER OIL/ZINC OXIDE OINT 113 GM TUBE TP PRN; COD56OIN TP; COVID-19 VACC,MRNA(MODERNA)/PF 100 MCG/0.5 ML VIAL IM ONE; HYDR1SOL TP; HYDROGEN PEROXIDE 3% 118 ML BOTTLE TOP PRN; IPRATROPIUM NEB; LACT-209 GT; LORA1TAB GT; LORAZEPAM 1 MG TABLET GT PRN; OMEP20CA15 GT; PHEN100C4 GT; PHEN60TA11 GT; PHENOBARBITAL 30 MG/7.5 ML LIQUID UDC GT SCH; PHENOBARBITAL 60 MG TABLET PO ONE; POLY17PO4 GT; PROC25SU29 RC; PROCHLORPERAZINE MALEATE 25 MG SUPP.RECT RC PRN; PROT946L GT; TUBERCULIN,PURIF.PROT.DERIV. 5 TU/0.1 ML TEST ID ONE; VIT60OIN3 TP; [UNRECOGNIZED DRUG - CODE] GT; [UNRECOGNIZED DRUG - OTHER] TP
[2020-03-17] MEDS: OMEPRAZOLE 20 MG CAPSULE.DR GT SCH ×2 (05:58→20:20)
[2020-03-17] MEDS: ALBUTEROL SULFATE 2.5 MG/ 0.5 ML NEBU NEB SCH ×4 (07:24→19:10)
[2020-03-17] MEDS: HYDROGEN PEROXIDE 3% 118 ML BOTTLE TOP SCH ×2 (07:24→21:10)
[2020-03-17] MEDS: IPRATROPIUM BROMIDE 0.5 MG/2.5 ML NEBU NEB SCH ×4 (07:24→19:10)
[2020-03-17 07:45] VITALS: BP 136/81
[2020-03-17] MEDS: Z GUARD REMEDY PASTE 57 GM TUBE TOP SCH ×2 (08:33→20:20)
[2020-03-17] MEDS: PHENYTOIN 100 MG/4 ML UDC GT SCH ×2 (08:33→20:20)
[2020-03-17] MEDS: PROTEIN SUPPLEMENT (PROSTAT) 30 ML LIQUID GT SCH ×2 (08:33→20:20)
[2020-03-17] MEDS: PHENOBARBITAL 30 MG/7.5 ML LIQUID UDC GT SCH ×2 (08:33→20:20)
[2020-03-17] MEDS: CETAPHIL TOP SCH ×2 (08:33→20:20)
[2020-03-17] MEDS: VITAMINS A AND D OINT TP SCH ×3 (08:33→20:21)
[2020-03-17] MEDS: NEOMY/BACITRA/POLYMYXIN B OINT UD PACKET TP SCH ×2 (08:33→20:21)
[2020-03-17] MEDS: CHOLECALCIFEROL 400 UNITS TABLET GT SCH ×2 (08:33→20:20)
--- NOTE | 2020-03-17 17:50 | NUR ---
No a/r noted from covid19 vaccine.
[2020-03-17] MEDS: MIRALAX 17 GM POWD.PACK GT SCH (20:20)
[2020-03-17 20:30] VITALS: BP 128/65
--- NOTE | 2020-03-17 22:13 | NUR ---
Patient is afebrile, no signs of adverse effects from Covid-19 vaccine.
[2020-03-18] MEDS: OMEPRAZOLE 20 MG CAPSULE.DR GT SCH ×2 (06:18→20:05)
[2020-03-18] MEDS: IPRATROPIUM BROMIDE 0.5 MG/2.5 ML NEBU NEB SCH ×4 (07:10→20:10)
[2020-03-18] MEDS: ALBUTEROL SULFATE 2.5 MG/ 0.5 ML NEBU NEB SCH ×4 (07:10→20:10)
[2020-03-18 07:39] VITALS: BP 131/79
[2020-03-18] MEDS: HYDROGEN PEROXIDE 3% 118 ML BOTTLE TOP SCH ×2 (08:50→20:39)
[2020-03-18] MEDS: PHENYTOIN 100 MG/4 ML UDC GT SCH ×2 (09:02→20:05)
[2020-03-18] MEDS: PHENOBARBITAL 30 MG/7.5 ML LIQUID UDC GT SCH ×2 (09:02→20:05)
[2020-03-18] MEDS: Z GUARD REMEDY PASTE 57 GM TUBE TOP SCH ×2 (09:02→20:07)
[2020-03-18] MEDS: CETAPHIL TOP SCH ×2 (09:02→20:07)
[2020-03-18] MEDS: PROTEIN SUPPLEMENT (PROSTAT) 30 ML LIQUID GT SCH ×2 (09:02→20:05)
[2020-03-18] MEDS: CHOLECALCIFEROL 400 UNITS TABLET GT SCH ×2 (09:02→20:06)
[2020-03-18] MEDS: NEOMY/BACITRA/POLYMYXIN B OINT UD PACKET TP SCH ×2 (09:03→20:07)
[2020-03-18] MEDS: VITAMINS A AND D OINT TP SCH ×4 (09:03→20:07)
[2020-03-18] MEDS: JEVITY 1.2 1000 ML LIQUID GT PRN (17:00)
--- NOTE | 2020-03-18 18:13 | NUR ---
V/S STABLE, NO A/R TO COVID19 VACCINE NOTED. WILL CONTINUE MONITORING.
[2020-03-18 20:02] VITALS: BP 137/79
[2020-03-18] MEDS: MIRALAX 17 GM POWD.PACK GT SCH (20:05)
[2020-03-19] MEDS: OMEPRAZOLE 20 MG CAPSULE.DR GT SCH ×2 (05:38→21:24)
[2020-03-19] MEDS: IPRATROPIUM BROMIDE 0.5 MG/2.5 ML NEBU NEB SCH ×4 (07:09→20:10)
[2020-03-19] MEDS: ALBUTEROL SULFATE 2.5 MG/ 0.5 ML NEBU NEB SCH ×4 (07:09→20:10)
[2020-03-19 07:39] VITALS: BP 132/80
[2020-03-19] MEDS: HYDROGEN PEROXIDE 3% 118 ML BOTTLE TOP SCH ×2 (09:00→20:36)
[2020-03-19] MEDS: PHENYTOIN 100 MG/4 ML UDC GT SCH ×2 (09:03→21:24)
[2020-03-19] MEDS: PHENOBARBITAL 30 MG/7.5 ML LIQUID UDC GT SCH ×2 (09:03→21:24)
[2020-03-19] MEDS: PROTEIN SUPPLEMENT (PROSTAT) 30 ML LIQUID GT SCH ×2 (09:03→21:24)
[2020-03-19] MEDS: CHOLECALCIFEROL 400 UNITS TABLET GT SCH ×2 (09:03→21:24)
[2020-03-19] MEDS: NEOMY/BACITRA/POLYMYXIN B OINT UD PACKET TP SCH ×2 (09:03→21:25)
[2020-03-19] MEDS: Z GUARD REMEDY PASTE 57 GM TUBE TOP SCH ×2 (09:03→21:24)
[2020-03-19] MEDS: VITAMINS A AND D OINT TP SCH ×2 (09:03→21:25)
[2020-03-19] MEDS: CETAPHIL TOP SCH ×2 (09:03→21:24)
[2020-03-19 20:00] VITALS: BP 105/69
[2020-03-19] MEDS: MIRALAX 17 GM POWD.PACK GT SCH (21:24)
[2020-03-20] MEDS: OMEPRAZOLE 20 MG CAPSULE.DR GT SCH (05:45)
== END | disposition still patient (30) | DRG 207 ==
LOC: SA 03-17
PROVIDERS: ADMIT Specialist; ATTEND Specialist
PROC: 5A1955Z Respiratory Ventilation, Greater than 96 Consecutive Hours (ICD-10-PCS; principal; 2019-03-17)
DX: J96.10 Chronic respiratory failure, unspecified whether with hypoxia or hypercapnia (principal); G82.50 Quadriplegia, unspecified; G93.1 Anoxic brain damage, not elsewhere classified; Z99.11 Dependence on respirator [ventilator] status; Z16.11 Resistance to penicillins; R13.10 Dysphagia, unspecified; Z86.74 Personal history of sudden cardiac arrest; Z93.1 Gastrostomy status; Z93.0 Tracheostomy status; F32.9 Major depressive disorder, single episode, unspecified; F18.10 Inhalant abuse, uncomplicated; T71.162S Asphyxiation due to hanging, intentional self-harm, sequela; M24.50 Contracture, unspecified joint; S06.890S Other specified intracranial injury without loss of consciousness, sequela; X83.8XXS Intentional self-harm by other specified means, sequela; Z66 Do not resuscitate; R47.02 Dysphasia; G40.909 Epilepsy, unspecified, not intractable, without status epilepticus
CPT/HCPCS: 86580; 87070; 87077; 94002; 94003; 94640; 94664; A4663; C1758; J3590; J8499; U0003

== ENCOUNTER 2022-03-17 | Inpatient (IN) | payer MEDICARE, MEDICAID ==
[~2022-03-17] VITALS: Ht 177.8 cm; Wt 78.0 kg
[~2022-03-17] MED LIST changes: -ACETAMINOPHEN 650 MG/20.3 ML LIQUID UDC GT PRN; -ALBUTEROL SULFATE 2.5 MG/3 ML NEBU NEB PRN; -COD LIVER OIL/ZINC OXIDE OINT 113 GM TUBE TP PRN; -COVID-19 VACC,MRNA(MODERNA)/PF 100 MCG/0.5 ML VIAL IM ONE; -HYDROGEN PEROXIDE 3% 118 ML BOTTLE TOP PRN; -LORAZEPAM 1 MG TABLET GT PRN; -PHENOBARBITAL 30 MG/7.5 ML LIQUID UDC GT SCH; -PHENOBARBITAL 60 MG TABLET PO ONE; -PROCHLORPERAZINE MALEATE 25 MG SUPP.RECT RC PRN; -TUBERCULIN,PURIF.PROT.DERIV. 5 TU/0.1 ML TEST ID ONE
[2022-03-19] MEDS ORDERED: HYDROGEN PEROXIDE 3% 118 ML BOTTLE TOP PRN (07:00)
[2022-03-19] MEDS ORDERED: BISACODYL 10 MG SUPP.RECT RC PRN (07:00)
[2022-03-19] MEDS ORDERED: ALBUTEROL SULFATE 2.5 MG/3 ML NEBU NEB PRN (07:00)
[2022-03-19] MEDS ORDERED: ACETAMINOPHEN 650 MG/20 ML UDC- SA PATIENTS-FEVER ONLY GT PRN (07:00)
[2022-03-19] MEDS ORDERED: LORAZEPAM 1 MG TABLET GT PRN (07:00)
[2022-03-19] MEDS ORDERED: PROCHLORPERAZINE MALEATE 25 MG SUPP.RECT RC PRN ×2 (07:00)
[2022-03-19] MEDS ORDERED: [UNRECOGNIZED DRUG - OTHER] RC PRN (07:00)
[2022-03-19] MEDS: IPRATROPIUM BROMIDE 0.5 MG/2.5 ML NEBU NEB SCH ×4 (07:57→19:07)
[2022-03-19] MEDS: ALBUTEROL SULFATE 2.5 MG/ 0.5 ML NEBU NEB SCH ×4 (07:57→19:07)
[2022-03-19] MEDS: HYDROGEN PEROXIDE 3% 118 ML BOTTLE TOP SCH ×2 (07:58→21:04)
[2022-03-19 08:00] VITALS: TEMP 97.7
[2022-03-19] MEDS: PROTEIN SUPPLEMENT (PROSTAT) 30 ML LIQUID GT SCH (08:00)
[2022-03-19] MEDS: AMOXICILLIN-CLAVUL 875-125MG TABLET GT SCH ×2 (09:14→21:31)
[2022-03-19] MEDS: CULTURELLE CAPSULE GT SCH ×2 (09:15→21:31)
[2022-03-19] MEDS: ASCORBIC ACID 500 MG TABLET GT SCH (09:15)
[2022-03-19] MEDS: REMEDY ESSENTIAL ZINC PASTE 113 GM TP SCH ×2 (09:15→21:31)
[2022-03-19] MEDS: PHENYTOIN 100 MG/4 ML UDC GT SCH ×2 (09:15→21:31)
[2022-03-19] MEDS: PHENOBARBITAL 64.8 MG TABLET GT SCH ×2 (09:15→21:31)
[2022-03-19] MEDS: ARGININE/GLUTAMINE/CALCIUM BMB 1 EACH POWD.PACK GT SCH ×2 (09:15→17:01)
[2022-03-19] MEDS: CETAPHIL TOP SCH ×2 (09:15→21:31)
[2022-03-19] MEDS: CHOLECALCIFEROL 400 UNITS TABLET GT SCH ×2 (09:15→21:31)
[2022-03-19] MEDS: VITAMINS A AND D OINT 42 GM TUBE TP SCH ×2 (09:16)
[2022-03-19] MEDS: NEOMY/BACITRAC/POLYMI OINT 28.35 GM TUBE TP SCH ×2 (09:16→21:31)
[2022-03-19] MEDS: BACLOFEN 10 MG TABLET GT SCH ×2 (13:47→21:31)
[2022-03-19 17:54] VITALS: O2SAT 98
[2022-03-19 20:50] VITALS: TEMP 97.9
[2022-03-19] MEDS: OMEPRAZOLE 20 MG CAPSULE.DR GT SCH (21:31)
[2022-03-19] MEDS: MIRALAX 17 GM POWD.PACK GT SCH (21:31)
[2022-03-20] MEDS: JEVITY 1.2 1000 ML LIQUID GT PRN (02:37)
[2022-03-20] MEDS: OMEPRAZOLE 20 MG CAPSULE.DR GT SCH ×2 (05:40→20:29)
[2022-03-20] MEDS: BACLOFEN 10 MG TABLET GT SCH ×3 (05:40→22:00)
[2022-03-20] MEDS: ALBUTEROL SULFATE 2.5 MG/ 0.5 ML NEBU NEB SCH ×4 (07:18→19:30)
[2022-03-20] MEDS: IPRATROPIUM BROMIDE 0.5 MG/2.5 ML NEBU NEB SCH ×4 (07:18→19:30)
[2022-03-20] MEDS: HYDROGEN PEROXIDE 3% 118 ML BOTTLE TOP SCH ×2 (07:18→20:44)
[2022-03-20 08:00] VITALS: TEMP 98
[2022-03-20] MEDS: PROTEIN SUPPLEMENT (PROSTAT) 30 ML LIQUID GT SCH (08:43)
[2022-03-20] MEDS: CHOLECALCIFEROL 400 UNITS TABLET GT SCH ×2 (09:11→20:29)
[2022-03-20] MEDS: PHENYTOIN 100 MG/4 ML UDC GT SCH ×2 (09:11→20:29)
[2022-03-20] MEDS: ARGININE/GLUTAMINE/CALCIUM BMB 1 EACH POWD.PACK GT SCH ×2 (09:11→17:00)
[2022-03-20] MEDS: PHENOBARBITAL 64.8 MG TABLET GT SCH ×2 (09:11→20:29)
[2022-03-20] MEDS: ASCORBIC ACID 500 MG TABLET GT SCH (09:11)
[2022-03-20] MEDS: CULTURELLE CAPSULE GT SCH ×2 (09:11→20:28)
[2022-03-20] MEDS: AMOXICILLIN-CLAVUL 875-125MG TABLET GT SCH ×2 (09:11→20:28)
[2022-03-20] MEDS: VITAMINS A AND D OINT 42 GM TUBE TP SCH ×2 (09:12)
[2022-03-20] MEDS: REMEDY ESSENTIAL ZINC PASTE 113 GM TP SCH ×2 (09:12→20:30)
[2022-03-20] MEDS: NEOMY/BACITRAC/POLYMI OINT 28.35 GM TUBE TP SCH ×2 (09:12→20:30)
[2022-03-20] MEDS: CETAPHIL TOP SCH ×2 (09:12→20:29)
[2022-03-20 20:00] VITALS: TEMP 97.2
[2022-03-20] MEDS: MIRALAX 17 GM POWD.PACK GT SCH (20:29)
[2022-03-21] MEDS: BACLOFEN 10 MG TABLET GT SCH ×3 (05:26→21:42)
[2022-03-21] MEDS: JEVITY 1.2 1000 ML LIQUID GT PRN (05:26)
[2022-03-21] MEDS: OMEPRAZOLE 20 MG CAPSULE.DR GT SCH ×2 (06:09→21:05)
[2022-03-21] MEDS: HYDROGEN PEROXIDE 3% 118 ML BOTTLE TOP SCH ×2 (07:14→21:22)
[2022-03-21] MEDS: ALBUTEROL SULFATE 2.5 MG/ 0.5 ML NEBU NEB SCH ×4 (07:14→19:07)
[2022-03-21] MEDS: IPRATROPIUM BROMIDE 0.5 MG/2.5 ML NEBU NEB SCH ×4 (07:14→19:07)
[2022-03-21] MEDS: PROTEIN SUPPLEMENT (PROSTAT) 30 ML LIQUID GT SCH (08:00)
[2022-03-21 08:03] VITALS: TEMP 97.8
[2022-03-21] MEDS: CETAPHIL TOP SCH ×2 (09:00→21:00)
[2022-03-21] MEDS: ARGININE/GLUTAMINE/CALCIUM BMB 1 EACH POWD.PACK GT SCH ×2 (09:10→17:24)
[2022-03-21] MEDS: AMOXICILLIN-CLAVUL 875-125MG TABLET GT SCH ×2 (09:10→20:57)
[2022-03-21] MEDS: PHENYTOIN 100 MG/4 ML UDC GT SCH ×2 (09:10→20:58)
[2022-03-21] MEDS: CULTURELLE CAPSULE GT SCH ×2 (09:10→20:58)
[2022-03-21] MEDS: PHENOBARBITAL 64.8 MG TABLET GT SCH ×2 (09:12→20:59)
[2022-03-21] MEDS: VITAMINS A AND D OINT 42 GM TUBE TP SCH ×2 (09:13)
[2022-03-21] MEDS: ASCORBIC ACID 500 MG TABLET GT SCH (09:13)
[2022-03-21] MEDS: NEOMY/BACITRAC/POLYMI OINT 28.35 GM TUBE TP SCH ×2 (09:13→21:03)
[2022-03-21] MEDS: CHOLECALCIFEROL 400 UNITS TABLET GT SCH ×2 (09:13→21:05)
[2022-03-21] MEDS: REMEDY ESSENTIAL ZINC PASTE 113 GM TP SCH ×2 (09:13→21:05)
[2022-03-21 20:44] VITALS: TEMP 97.8
[2022-03-21] MEDS: MIRALAX 17 GM POWD.PACK GT SCH (21:03)
[2022-03-22] MEDS: BACLOFEN 10 MG TABLET GT SCH ×3 (05:50→21:27)
[2022-03-22] MEDS: OMEPRAZOLE 20 MG CAPSULE.DR GT SCH ×2 (05:50→21:26)
[2022-03-22] MEDS: IPRATROPIUM BROMIDE 0.5 MG/2.5 ML NEBU NEB SCH ×4 (07:17→19:05)
[2022-03-22] MEDS: HYDROGEN PEROXIDE 3% 118 ML BOTTLE TOP SCH ×2 (07:17→21:00)
[2022-03-22] MEDS: ALBUTEROL SULFATE 2.5 MG/ 0.5 ML NEBU NEB SCH ×2 (07:17→11:15)
[2022-03-22 07:43] VITALS: TEMP 97.9
[2022-03-22] MEDS: PHENYTOIN 100 MG/4 ML UDC GT SCH ×2 (10:00→21:26)
[2022-03-22] MEDS: NEOMY/BACITRAC/POLYMI OINT 28.35 GM TUBE TP SCH ×2 (10:00→21:26)
[2022-03-22] MEDS: PROTEIN SUPPLEMENT (PROSTAT) 30 ML LIQUID GT SCH (10:00)
[2022-03-22] MEDS: VITAMINS A AND D OINT 42 GM TUBE TP SCH ×2 (10:00)
[2022-03-22] MEDS: CULTURELLE CAPSULE GT SCH ×2 (10:00→21:26)
[2022-03-22] MEDS: PHENOBARBITAL 64.8 MG TABLET GT SCH ×2 (10:00→21:26)
[2022-03-22] MEDS: ARGININE/GLUTAMINE/CALCIUM BMB 1 EACH POWD.PACK GT SCH ×2 (10:00→16:50)
[2022-03-22] MEDS: ASCORBIC ACID 500 MG TABLET GT SCH (10:00)
[2022-03-22] MEDS: REMEDY ESSENTIAL ZINC PASTE 113 GM TP SCH ×2 (10:00→21:26)
[2022-03-22] MEDS: CETAPHIL TOP SCH ×2 (10:00→21:26)
[2022-03-22] MEDS: AMOXICILLIN-CLAVUL 875-125MG TABLET GT SCH ×2 (10:00→21:26)
[2022-03-22] MEDS: CHOLECALCIFEROL 400 UNITS TABLET GT SCH ×2 (10:00→21:26)
[2022-03-22] MEDS: ALBUTEROL SULFATE 2.5 MG/3 ML NEBU NEB SCH ×2 (15:08→19:05)
[2022-03-22 20:43] VITALS: TEMP 97.9
[2022-03-22] MEDS: MIRALAX 17 GM POWD.PACK GT SCH (21:26)
[2022-03-23] MEDS: JEVITY 1.2 1000 ML LIQUID GT PRN (04:47)
[2022-03-23] MEDS: BACLOFEN 10 MG TABLET GT SCH ×3 (05:22→22:29)
[2022-03-23] MEDS: OMEPRAZOLE 20 MG CAPSULE.DR GT SCH ×2 (07:15→20:29)
[2022-03-23] MEDS: IPRATROPIUM BROMIDE 0.5 MG/2.5 ML NEBU NEB SCH ×4 (07:35→19:14)
[2022-03-23] MEDS: ALBUTEROL SULFATE 2.5 MG/3 ML NEBU NEB SCH ×4 (07:35→19:14)
[2022-03-23] MEDS: PROTEIN SUPPLEMENT (PROSTAT) 30 ML LIQUID GT SCH (08:00)
[2022-03-23 08:34] VITALS: TEMP 97.8
[2022-03-23] MEDS: HYDROGEN PEROXIDE 3% 118 ML BOTTLE TOP SCH ×2 (08:35→21:05)
[2022-03-23] MEDS: AMOXICILLIN-CLAVUL 875-125MG TABLET GT SCH (09:43)
[2022-03-23] MEDS: CULTURELLE CAPSULE GT SCH ×2 (09:43→20:19)
[2022-03-23] MEDS: PHENYTOIN 100 MG/4 ML UDC GT SCH ×2 (09:46→20:19)
[2022-03-23] MEDS: PHENOBARBITAL 64.8 MG TABLET GT SCH ×2 (09:46→20:19)
[2022-03-23] MEDS: ARGININE/GLUTAMINE/CALCIUM BMB 1 EACH POWD.PACK GT SCH ×2 (09:46→17:18)
[2022-03-23] MEDS: NEOMY/BACITRAC/POLYMI OINT 28.35 GM TUBE TP SCH ×2 (09:48→20:29)
[2022-03-23] MEDS: CETAPHIL TOP SCH ×2 (09:48→20:29)
[2022-03-23] MEDS: ASCORBIC ACID 500 MG TABLET GT SCH (09:48)
[2022-03-23] MEDS: CHOLECALCIFEROL 400 UNITS TABLET GT SCH ×2 (09:48→20:29)
[2022-03-23] MEDS: VITAMINS A AND D OINT 42 GM TUBE TP SCH ×2 (09:48)
[2022-03-23] MEDS: REMEDY ESSENTIAL ZINC PASTE 113 GM TP SCH ×2 (09:48→20:29)
[2022-03-23] MEDS: MIRALAX 17 GM POWD.PACK GT SCH (20:29)
[2022-03-23 20:53] VITALS: TEMP 97.8
[2022-03-24] MEDS ORDERED: NORMAL SALINE FLUSH 10 ML DISP.SYRIN IV SCH (02:00)
[2022-03-24] MEDS: JEVITY 1.2 1000 ML LIQUID GT PRN (04:28)
[2022-03-24] MEDS: OMEPRAZOLE 20 MG CAPSULE.DR GT SCH ×2 (05:04→21:00)
[2022-03-24] MEDS: BACLOFEN 10 MG TABLET GT SCH ×3 (05:04→21:02)
[2022-03-24] MEDS: ALBUTEROL SULFATE 2.5 MG/3 ML NEBU NEB SCH ×4 (07:52→19:30)
[2022-03-24] MEDS: IPRATROPIUM BROMIDE 0.5 MG/2.5 ML NEBU NEB SCH ×4 (07:52→19:30)
[2022-03-24 08:00] VITALS: TEMP 97.8
[2022-03-24] MEDS: PROTEIN SUPPLEMENT (PROSTAT) 30 ML LIQUID GT SCH (08:00)
[2022-03-24] MEDS: HYDROGEN PEROXIDE 3% 118 ML BOTTLE TOP SCH ×2 (08:13→21:49)
[2022-03-24] MEDS: PHENOBARBITAL 64.8 MG TABLET GT SCH ×2 (09:19→21:00)
[2022-03-24] MEDS: PHENYTOIN 100 MG/4 ML UDC GT SCH ×2 (09:19→20:57)
[2022-03-24] MEDS: CULTURELLE CAPSULE GT SCH ×2 (09:19→20:56)
[2022-03-24] MEDS: ARGININE/GLUTAMINE/CALCIUM BMB 1 EACH POWD.PACK GT SCH ×2 (09:19→16:27)
[2022-03-24] MEDS: VITAMINS A AND D OINT 42 GM TUBE TP SCH ×2 (09:20)
[2022-03-24] MEDS: ASCORBIC ACID 500 MG TABLET GT SCH (09:20)
[2022-03-24] MEDS: NEOMY/BACITRAC/POLYMI OINT 28.35 GM TUBE TP SCH ×2 (09:20→21:01)
[2022-03-24] MEDS: REMEDY ESSENTIAL ZINC PASTE 113 GM TP SCH ×2 (09:20→21:01)
[2022-03-24] MEDS: CHOLECALCIFEROL 400 UNITS TABLET GT SCH ×2 (09:20→21:00)
[2022-03-24] MEDS: CETAPHIL TOP SCH ×2 (09:20→21:00)
[2022-03-24 20:15] VITALS: TEMP 97.6
[2022-03-24] MEDS: MIRALAX 17 GM POWD.PACK GT SCH (21:00)
[2022-03-25] MEDS: BACLOFEN 10 MG TABLET GT SCH ×3 (05:30→22:17)
[2022-03-25] MEDS: OMEPRAZOLE 20 MG CAPSULE.DR GT SCH ×2 (05:30→21:00)
[2022-03-25 07:26] VITALS: TEMP 98.1
[2022-03-25] MEDS: ALBUTEROL SULFATE 2.5 MG/3 ML NEBU NEB SCH ×4 (07:32→18:58)
[2022-03-25] MEDS: IPRATROPIUM BROMIDE 0.5 MG/2.5 ML NEBU NEB SCH ×4 (07:32→18:58)
[2022-03-25] MEDS: PROTEIN SUPPLEMENT (PROSTAT) 30 ML LIQUID GT SCH (08:00)
[2022-03-25] MEDS: HYDROGEN PEROXIDE 3% 118 ML BOTTLE TOP SCH ×2 (08:29→20:53)
[2022-03-25] MEDS: VITAMINS A AND D OINT 42 GM TUBE TP SCH ×2 (09:00)
[2022-03-25] MEDS: PHENYTOIN 100 MG/4 ML UDC GT SCH ×2 (09:00→21:00)
[2022-03-25] MEDS: NEOMY/BACITRAC/POLYMI OINT 28.35 GM TUBE TP SCH (09:00)
[2022-03-25] MEDS: PHENOBARBITAL 64.8 MG TABLET GT SCH ×2 (09:00→21:00)
[2022-03-25] MEDS: CHOLECALCIFEROL 400 UNITS TABLET GT SCH ×2 (09:00→21:00)
[2022-03-25] MEDS: ASCORBIC ACID 500 MG TABLET GT SCH (09:00)
[2022-03-25] MEDS: CETAPHIL TOP SCH ×2 (09:00→21:00)
[2022-03-25] MEDS: REMEDY ESSENTIAL ZINC PASTE 113 GM TP SCH ×2 (09:00→21:00)
[2022-03-25] MEDS: CULTURELLE CAPSULE GT SCH ×2 (09:00→21:00)
[2022-03-25] MEDS: ARGININE/GLUTAMINE/CALCIUM BMB 1 EACH POWD.PACK GT SCH ×2 (09:00→16:03)
[2022-03-25 12:04] LABS: BASOPHILS % (AUTO) 0.7 % (0.0-2.0); EOSINOPHILS # (AUTO) 0.2 K/uL (0.0-0.7); EOSINOPHILS % (AUTO) 3.2 % (0.0-7.0); HEMATOCRIT 44.9 % (36.7-47.1); HEMOGLOBIN 15.3 g/dL (12.5-16.3); LYMPHOCYTES # (AUTO) 1.6 K/uL (0.8-4.8); LYMPHOCYTES % (AUTO) 29.3 % (20.5-51.5); MEAN CORPUSCULAR HEMOGLOBIN 31.9 uug (23.8-33.4); MEAN CORPUSCULAR HGB CONC 34 g/dL (32.5-36.3); MEAN CORPUSCULAR VOLUME 93.2 fL (73.0-96.2); MONOCYTES # (AUTO) 0.3 K/uL (0.1-1.30); MONOCYTES % (AUTO) 6.2 % (0.0-11.0); NEUTROPHILS # (AUTO) 3.4 K/uL (1.8-8.9); NEUTROPHILS % (AUTO) 60.6 % (38.5-71.5); PLATELET COUNT (AUTO) 157 K/uL (152-348); RED BLOOD CELL COUNT(AUTO) 4.81 MIL/uL (4.06-5.63); RED CELL DISTRIBUTION WIDTH 14.1 % (12.1-16.2); WHITE BLOOD COUNT (AUTO) 5.6 K/uL (3.6-10.2)
[2022-03-25 12:09] LABS: DIFFERENTIAL COMMENT 1
[2022-03-25 12:14] LABS: CREATININE 0.9 mg/dL (0.6-1.3); POTASSIUM 3.9 mmol/L (3.5-5.1)
[2022-03-25] MEDS: COD LIVER OIL/ZINC OXIDE OINT 113 GM TUBE TP SCH ×2 (14:00→21:00)
[2022-03-25] MEDS: PIPERACILLIN SODIUM/TAZOBACTAM 4.5 G in IV DEXTROSE 5% 50 ML IV SCH (16:31)
[2022-03-25] MEDS: JEVITY 1.2 1000 ML LIQUID GT PRN (17:11)
[2022-03-25 20:00] VITALS: TEMP 97.8
[2022-03-25] MEDS: MIRALAX 17 GM POWD.PACK GT SCH (21:00)
[2022-03-26] MEDS: PIPERACILLIN SODIUM/TAZOBACTAM 4.5 G in IV DEXTROSE 5% 50 ML IV SCH ×3 (01:00→17:48)
[2022-03-26] MEDS: OMEPRAZOLE 20 MG CAPSULE.DR GT SCH ×2 (06:11→21:28)
[2022-03-26] MEDS: BACLOFEN 10 MG TABLET GT SCH ×3 (06:11→21:29)
[2022-03-26 07:22] VITALS: TEMP 97.6
[2022-03-26] MEDS: ALBUTEROL SULFATE 2.5 MG/3 ML NEBU NEB SCH ×4 (07:54→19:01)
[2022-03-26] MEDS: HYDROGEN PEROXIDE 3% 118 ML BOTTLE TOP SCH ×2 (07:54→21:48)
[2022-03-26] MEDS: IPRATROPIUM BROMIDE 0.5 MG/2.5 ML NEBU NEB SCH ×4 (07:54→19:01)
[2022-03-26] MEDS: PROTEIN SUPPLEMENT (PROSTAT) 30 ML LIQUID GT SCH (08:29)
[2022-03-26] MEDS: CULTURELLE CAPSULE GT SCH ×2 (08:30→21:28)
[2022-03-26] MEDS: PHENYTOIN 100 MG/4 ML UDC GT SCH ×2 (08:31→21:28)
[2022-03-26] MEDS: PHENOBARBITAL 64.8 MG TABLET GT SCH ×2 (08:34→21:28)
[2022-03-26] MEDS: ARGININE/GLUTAMINE/CALCIUM BMB 1 EACH POWD.PACK GT SCH ×2 (08:34→16:50)
[2022-03-26] MEDS: CHOLECALCIFEROL 400 UNITS TABLET GT SCH ×2 (08:35→21:28)
[2022-03-26] MEDS: CETAPHIL TOP SCH ×2 (08:35→21:28)
[2022-03-26] MEDS: ASCORBIC ACID 500 MG TABLET GT SCH (08:35)
[2022-03-26] MEDS: REMEDY ESSENTIAL ZINC PASTE 113 GM TP SCH ×2 (08:36→21:29)
[2022-03-26] MEDS: VITAMINS A AND D OINT 42 GM TUBE TP SCH ×2 (08:36)
[2022-03-26] MEDS: COD LIVER OIL/ZINC OXIDE OINT 113 GM TUBE TP SCH ×2 (08:36→21:28)
[2022-03-26] MEDS: JEVITY 1.2 1000 ML LIQUID GT PRN (12:52)
[2022-03-26 20:00] VITALS: TEMP 98
[2022-03-26] MEDS: NORMAL SALINE FLUSH 10 ML DISP.SYRIN IV SCH (21:00)
[2022-03-26] MEDS: MIRALAX 17 GM POWD.PACK GT SCH (21:28)
[2022-03-27] MEDS: PIPERACILLIN SODIUM/TAZOBACTAM 4.5 G in IV DEXTROSE 5% 50 ML IV SCH ×3 (00:10→17:30)
[2022-03-27] MEDS: OMEPRAZOLE 20 MG CAPSULE.DR GT SCH ×2 (06:16→21:14)
[2022-03-27] MEDS: BACLOFEN 10 MG TABLET GT SCH ×3 (06:16→21:17)
[2022-03-27] MEDS: ALBUTEROL SULFATE 2.5 MG/3 ML NEBU NEB SCH ×4 (07:50→19:20)
[2022-03-27] MEDS: IPRATROPIUM BROMIDE 0.5 MG/2.5 ML NEBU NEB SCH ×4 (07:50→19:20)
[2022-03-27] MEDS: CULTURELLE CAPSULE GT SCH ×2 (08:09→21:10)
[2022-03-27] MEDS: ARGININE/GLUTAMINE/CALCIUM BMB 1 EACH POWD.PACK GT SCH ×2 (08:09→17:00)
[2022-03-27] MEDS: PHENOBARBITAL 64.8 MG TABLET GT SCH ×2 (08:09→21:13)
[2022-03-27] MEDS: PHENYTOIN 100 MG/4 ML UDC GT SCH ×2 (08:09→21:10)
[2022-03-27] MEDS: PROTEIN SUPPLEMENT (PROSTAT) 30 ML LIQUID GT SCH (08:09)
[2022-03-27] MEDS: ASCORBIC ACID 500 MG TABLET GT SCH (08:12)
[2022-03-27] MEDS: CHOLECALCIFEROL 400 UNITS TABLET GT SCH ×2 (08:12→21:14)
[2022-03-27 08:18] VITALS: TEMP 97.5
[2022-03-27] MEDS: HYDROGEN PEROXIDE 3% 118 ML BOTTLE TOP SCH ×2 (08:41→19:20)
[2022-03-27] MEDS: CETAPHIL TOP SCH ×2 (09:25→21:17)
[2022-03-27] MEDS: COD LIVER OIL/ZINC OXIDE OINT 113 GM TUBE TP SCH ×2 (09:26→21:17)
[2022-03-27] MEDS: VITAMINS A AND D OINT 42 GM TUBE TP SCH ×2 (09:26)
[2022-03-27] MEDS: REMEDY ESSENTIAL ZINC PASTE 113 GM TP SCH ×2 (09:26→21:17)
[2022-03-27] MEDS: NORMAL SALINE FLUSH 10 ML DISP.SYRIN IV SCH ×2 (09:31→21:42)
[2022-03-27] MEDS: JEVITY 1.2 1000 ML LIQUID GT PRN (13:04)
[2022-03-27 20:00] VITALS: TEMP 97.8
[2022-03-27] MEDS: MIRALAX 17 GM POWD.PACK GT SCH (21:14)
[2022-03-28] MEDS: PIPERACILLIN SODIUM/TAZOBACTAM 4.5 G in IV DEXTROSE 5% 50 ML IV SCH ×3 (01:00→17:38)
[2022-03-28] MEDS: BACLOFEN 10 MG TABLET GT SCH ×3 (05:17→21:38)
[2022-03-28] MEDS: OMEPRAZOLE 20 MG CAPSULE.DR GT SCH ×2 (05:30→21:38)
[2022-03-28] MEDS: IPRATROPIUM BROMIDE 0.5 MG/2.5 ML NEBU NEB SCH ×6 (06:52→19:15)
[2022-03-28] MEDS: ALBUTEROL SULFATE 2.5 MG/3 ML NEBU NEB SCH ×6 (06:52→19:15)
[2022-03-28 07:46] VITALS: TEMP 97.4
[2022-03-28] MEDS: PROTEIN SUPPLEMENT (PROSTAT) 30 ML LIQUID GT SCH (08:00)
[2022-03-28] MEDS: HYDROGEN PEROXIDE 3% 118 ML BOTTLE TOP SCH ×2 (08:51→21:45)
[2022-03-28] MEDS: NORMAL SALINE FLUSH 10 ML DISP.SYRIN IV SCH ×2 (08:56→21:00)
[2022-03-28] MEDS: CULTURELLE CAPSULE GT SCH ×2 (09:16→21:34)
[2022-03-28] MEDS: PHENYTOIN 100 MG/4 ML UDC GT SCH ×2 (09:20→21:34)
[2022-03-28] MEDS: ARGININE/GLUTAMINE/CALCIUM BMB 1 EACH POWD.PACK GT SCH ×2 (09:21→16:32)
[2022-03-28] MEDS: CHOLECALCIFEROL 400 UNITS TABLET GT SCH ×2 (09:22→21:38)
[2022-03-28] MEDS: CETAPHIL TOP SCH ×2 (09:22→21:38)
[2022-03-28] MEDS: PHENOBARBITAL 64.8 MG TABLET GT SCH ×2 (09:22→21:37)
[2022-03-28] MEDS: ASCORBIC ACID 500 MG TABLET GT SCH (09:22)
[2022-03-28] MEDS: COD LIVER OIL/ZINC OXIDE OINT 113 GM TUBE TP SCH ×2 (09:23→21:38)
[2022-03-28] MEDS: VITAMINS A AND D OINT 42 GM TUBE TP SCH ×2 (09:23)
[2022-03-28] MEDS: REMEDY ESSENTIAL ZINC PASTE 113 GM TP SCH ×2 (09:23→21:38)
[2022-03-28] MEDS: JEVITY 1.2 1000 ML LIQUID GT PRN (12:28)
[2022-03-28 20:00] VITALS: TEMP 98
[2022-03-28] MEDS: MIRALAX 17 GM POWD.PACK GT SCH (21:37)
[2022-03-29] MEDS: PIPERACILLIN SODIUM/TAZOBACTAM 4.5 G in IV DEXTROSE 5% 50 ML IV SCH ×3 (01:00→16:53)
[2022-03-29] MEDS: BACLOFEN 10 MG TABLET GT SCH ×3 (05:50→20:49)
[2022-03-29] MEDS: OMEPRAZOLE 20 MG CAPSULE.DR GT SCH ×2 (05:50→20:47)
[2022-03-29 07:40] VITALS: TEMP 97.1
[2022-03-29] MEDS: ALBUTEROL SULFATE 2.5 MG/3 ML NEBU NEB SCH ×4 (07:49→19:58)
[2022-03-29] MEDS: IPRATROPIUM BROMIDE 0.5 MG/2.5 ML NEBU NEB SCH ×4 (07:49→19:58)
[2022-03-29] MEDS: NORMAL SALINE FLUSH 10 ML DISP.SYRIN IV SCH ×2 (09:00→20:31)
[2022-03-29] MEDS: PROTEIN SUPPLEMENT (PROSTAT) 30 ML LIQUID GT SCH (09:00)
[2022-03-29] MEDS: PHENOBARBITAL 64.8 MG TABLET GT SCH ×2 (09:14→20:46)
[2022-03-29] MEDS: CULTURELLE CAPSULE GT SCH ×2 (09:14→20:49)
[2022-03-29] MEDS: PHENYTOIN 100 MG/4 ML UDC GT SCH ×2 (09:14→20:46)
[2022-03-29] MEDS: ARGININE/GLUTAMINE/CALCIUM BMB 1 EACH POWD.PACK GT SCH ×2 (09:14→17:08)
[2022-03-29] MEDS: CHOLECALCIFEROL 400 UNITS TABLET GT SCH ×2 (09:16→20:47)
[2022-03-29] MEDS: ASCORBIC ACID 500 MG TABLET GT SCH (09:16)
[2022-03-29] MEDS: COD LIVER OIL/ZINC OXIDE OINT 113 GM TUBE TP SCH ×2 (09:17→20:49)
[2022-03-29] MEDS: CETAPHIL TOP SCH ×2 (09:17→20:48)
[2022-03-29] MEDS: REMEDY ESSENTIAL ZINC PASTE 113 GM TP SCH ×2 (09:17→20:49)
[2022-03-29] MEDS: VITAMINS A AND D OINT 42 GM TUBE TP SCH ×2 (09:17)
[2022-03-29] MEDS: HYDROGEN PEROXIDE 3% 118 ML BOTTLE TOP SCH ×2 (09:48→19:58)
[2022-03-29] MEDS: JEVITY 1.2 1000 ML LIQUID GT PRN (17:00)
[2022-03-29] MEDS: MIRALAX 17 GM POWD.PACK GT SCH (20:47)
[2022-03-29 22:29] VITALS: TEMP 98
[2022-03-30] MEDS: PIPERACILLIN SODIUM/TAZOBACTAM 4.5 G in IV DEXTROSE 5% 50 ML IV SCH ×3 (01:00→17:00)
[2022-03-30] MEDS: OMEPRAZOLE 20 MG CAPSULE.DR GT SCH ×2 (05:05→20:37)
[2022-03-30] MEDS: BACLOFEN 10 MG TABLET GT SCH ×3 (05:05→20:40)
[2022-03-30] MEDS: IPRATROPIUM BROMIDE 0.5 MG/2.5 ML NEBU NEB SCH ×4 (07:43→19:51)
[2022-03-30] MEDS: HYDROGEN PEROXIDE 3% 118 ML BOTTLE TOP SCH ×2 (07:43→19:51)
[2022-03-30] MEDS: ALBUTEROL SULFATE 2.5 MG/3 ML NEBU NEB SCH ×4 (07:43→19:51)
[2022-03-30 08:00] VITALS: TEMP 97.8
[2022-03-30] MEDS: PROTEIN SUPPLEMENT (PROSTAT) 30 ML LIQUID GT SCH (08:00)
[2022-03-30] MEDS: NORMAL SALINE FLUSH 10 ML DISP.SYRIN IV SCH ×2 (09:00→20:37)
[2022-03-30] MEDS: PHENYTOIN 100 MG/4 ML UDC GT SCH ×2 (09:15→20:34)
[2022-03-30] MEDS: CULTURELLE CAPSULE GT SCH ×2 (09:15→20:34)
[2022-03-30] MEDS: PHENOBARBITAL 64.8 MG TABLET GT SCH ×2 (09:16→20:37)
[2022-03-30] MEDS: ARGININE/GLUTAMINE/CALCIUM BMB 1 EACH POWD.PACK GT SCH ×2 (09:16→18:00)
[2022-03-30] MEDS: COD LIVER OIL/ZINC OXIDE OINT 113 GM TUBE TP SCH ×2 (09:17→20:39)
[2022-03-30] MEDS: ASCORBIC ACID 500 MG TABLET GT SCH (09:17)
[2022-03-30] MEDS: CHOLECALCIFEROL 400 UNITS TABLET GT SCH ×2 (09:17→20:37)
[2022-03-30] MEDS: VITAMINS A AND D OINT 42 GM TUBE TP SCH ×2 (09:17)
[2022-03-30] MEDS: REMEDY ESSENTIAL ZINC PASTE 113 GM TP SCH ×2 (09:17→20:39)
[2022-03-30] MEDS: CETAPHIL TOP SCH ×2 (09:18→20:39)
[2022-03-30] MEDS: JEVITY 1.2 1000 ML LIQUID GT PRN (18:13)
[2022-03-30] MEDS: MIRALAX 17 GM POWD.PACK GT SCH (20:37)
[2022-03-30 20:38] VITALS: TEMP 98.4
[2022-03-31] MEDS: PIPERACILLIN SODIUM/TAZOBACTAM 4.5 G in IV DEXTROSE 5% 50 ML IV SCH ×3 (01:37→17:56)
[2022-03-31] MEDS: OMEPRAZOLE 20 MG CAPSULE.DR GT SCH ×2 (05:16→21:13)
[2022-03-31] MEDS: BACLOFEN 10 MG TABLET GT SCH ×3 (05:16→21:13)
[2022-03-31] MEDS: HYDROGEN PEROXIDE 3% 118 ML BOTTLE TOP SCH ×2 (07:35→19:48)
[2022-03-31] MEDS: ALBUTEROL SULFATE 2.5 MG/3 ML NEBU NEB SCH ×4 (07:35→19:48)
[2022-03-31] MEDS: IPRATROPIUM BROMIDE 0.5 MG/2.5 ML NEBU NEB SCH ×4 (07:35→19:48)
[2022-03-31 07:41] VITALS: TEMP 98.3
[2022-03-31] MEDS: CHOLECALCIFEROL 400 UNITS TABLET GT SCH ×2 (08:57→21:13)
[2022-03-31] MEDS: CULTURELLE CAPSULE GT SCH ×2 (08:57→21:27)
[2022-03-31] MEDS: ASCORBIC ACID 500 MG TABLET GT SCH (08:57)
[2022-03-31] MEDS: ARGININE/GLUTAMINE/CALCIUM BMB 1 EACH POWD.PACK GT SCH ×2 (08:57→17:56)
[2022-03-31] MEDS: NORMAL SALINE FLUSH 10 ML DISP.SYRIN IV SCH ×2 (08:57→21:00)
[2022-03-31] MEDS: PHENOBARBITAL 64.8 MG TABLET GT SCH ×2 (08:57→21:13)
[2022-03-31] MEDS: PHENYTOIN 100 MG/4 ML UDC GT SCH ×2 (08:57→21:13)
[2022-03-31] MEDS: PROTEIN SUPPLEMENT (PROSTAT) 30 ML LIQUID GT SCH (08:57)
[2022-03-31] MEDS: CETAPHIL TOP SCH ×2 (08:57→21:13)
[2022-03-31] MEDS: REMEDY ESSENTIAL ZINC PASTE 113 GM TP SCH ×2 (08:58→21:13)
[2022-03-31] MEDS: VITAMINS A AND D OINT 42 GM TUBE TP SCH ×2 (08:58)
[2022-03-31] MEDS: COD LIVER OIL/ZINC OXIDE OINT 113 GM TUBE TP SCH ×2 (08:58→21:13)
[2022-03-31] MEDS: MIRALAX 17 GM POWD.PACK GT SCH (21:13)
[2022-03-31 22:27] VITALS: TEMP 98.2
[2022-04-01] MEDS: PIPERACILLIN SODIUM/TAZOBACTAM 4.5 G in IV DEXTROSE 5% 50 ML IV SCH ×2 (01:00→08:40)
[2022-04-01] MEDS: OMEPRAZOLE 20 MG CAPSULE.DR GT SCH ×2 (05:47→21:23)
[2022-04-01] MEDS: BACLOFEN 10 MG TABLET GT SCH ×3 (05:47→21:28)
[2022-04-01] MEDS: IPRATROPIUM BROMIDE 0.5 MG/2.5 ML NEBU NEB SCH ×4 (07:12→19:10)
[2022-04-01] MEDS: ALBUTEROL SULFATE 2.5 MG/3 ML NEBU NEB SCH ×4 (07:12→19:10)
[2022-04-01] MEDS: HYDROGEN PEROXIDE 3% 118 ML BOTTLE TOP SCH ×2 (07:12→21:27)
[2022-04-01 07:20] VITALS: TEMP 98.6
[2022-04-01] MEDS: PROTEIN SUPPLEMENT (PROSTAT) 30 ML LIQUID GT SCH (08:34)
[2022-04-01] MEDS: ARGININE/GLUTAMINE/CALCIUM BMB 1 EACH POWD.PACK GT SCH ×2 (08:38→17:36)
[2022-04-01] MEDS: PHENYTOIN 100 MG/4 ML UDC GT SCH ×2 (08:38→21:33)
[2022-04-01] MEDS: VITAMINS A AND D OINT 42 GM TUBE TP SCH ×2 (08:40→08:41)
[2022-04-01] MEDS: NORMAL SALINE FLUSH 10 ML DISP.SYRIN IV SCH ×2 (08:40→21:26)
[2022-04-01] MEDS: REMEDY ESSENTIAL ZINC PASTE 113 GM TP SCH ×2 (08:40→21:28)
[2022-04-01] MEDS: CULTURELLE CAPSULE GT SCH ×2 (08:40→21:07)
[2022-04-01] MEDS: PHENOBARBITAL 64.8 MG TABLET GT SCH ×2 (08:40→21:23)
[2022-04-01] MEDS: COD LIVER OIL/ZINC OXIDE OINT 113 GM TUBE TP SCH ×2 (08:40→21:27)
[2022-04-01] MEDS: ASCORBIC ACID 500 MG TABLET GT SCH (08:40)
[2022-04-01] MEDS: CHOLECALCIFEROL 400 UNITS TABLET GT SCH ×2 (08:40→21:26)
[2022-04-01] MEDS: CETAPHIL TOP SCH (09:00)
[2022-04-01 20:00] VITALS: TEMP 98.3
[2022-04-01] MEDS: MIRALAX 17 GM POWD.PACK GT SCH (21:23)
[2022-04-02] MEDS: BACLOFEN 10 MG TABLET GT SCH ×3 (05:30→22:37)
[2022-04-02] MEDS: OMEPRAZOLE 20 MG CAPSULE.DR GT SCH ×2 (05:30→20:26)
[2022-04-02] MEDS: HYDROGEN PEROXIDE 3% 118 ML BOTTLE TOP SCH ×2 (07:16→20:36)
[2022-04-02] MEDS: IPRATROPIUM BROMIDE 0.5 MG/2.5 ML NEBU NEB SCH ×4 (07:16→19:16)
[2022-04-02] MEDS: ALBUTEROL SULFATE 2.5 MG/3 ML NEBU NEB SCH ×4 (07:16→19:16)
[2022-04-02 07:20] VITALS: TEMP 97.8
[2022-04-02] MEDS: PROTEIN SUPPLEMENT (PROSTAT) 30 ML LIQUID GT SCH (08:00)
[2022-04-02] MEDS: NORMAL SALINE FLUSH 10 ML DISP.SYRIN IV SCH ×2 (09:00→20:29)
[2022-04-02] MEDS: CHOLECALCIFEROL 400 UNITS TABLET GT SCH ×2 (09:17→20:29)
[2022-04-02] MEDS: ASCORBIC ACID 500 MG TABLET GT SCH (09:17)
[2022-04-02] MEDS: PHENOBARBITAL 64.8 MG TABLET GT SCH ×2 (09:17→20:26)
[2022-04-02] MEDS: REMEDY ESSENTIAL ZINC PASTE 113 GM TP SCH ×2 (09:17→20:29)
[2022-04-02] MEDS: PHENYTOIN 100 MG/4 ML UDC GT SCH ×2 (09:17→20:26)
[2022-04-02] MEDS: ARGININE/GLUTAMINE/CALCIUM BMB 1 EACH POWD.PACK GT SCH ×2 (09:17→17:00)
[2022-04-02] MEDS: COD LIVER OIL/ZINC OXIDE OINT 113 GM TUBE TP SCH ×2 (09:17→20:29)
[2022-04-02] MEDS: CULTURELLE CAPSULE GT SCH ×2 (09:17→20:26)
[2022-04-02] MEDS: VITAMINS A AND D OINT 42 GM TUBE TP SCH ×2 (09:18)
[2022-04-02 11:46] LABS: BASOPHILS # (AUTO) 0.1 K/UL (0.0-0.2); BASOPHILS % (AUTO) 0.8 % (0.0-2.0); EOSINOPHILS # (AUTO) 0.2 K/uL (0.0-0.7); EOSINOPHILS % (AUTO) 1.5 % (0.0-7.0); HEMATOCRIT 46.7 % (36.7-47.1); HEMOGLOBIN 15.7 g/dL (12.5-16.3); LYMPHOCYTES # (AUTO) 1.6 K/uL (0.8-4.8); LYMPHOCYTES % (AUTO) 15.1 % (20.5-51.5); MEAN CORPUSCULAR HEMOGLOBIN 31.8 uug (23.8-33.4); MEAN CORPUSCULAR HGB CONC 34 g/dL (32.5-36.3); MEAN CORPUSCULAR VOLUME 94.9 fL (73.0-96.2); MONOCYTES # (AUTO) 0.4 K/uL (0.1-1.30); MONOCYTES % (AUTO) 4.1 % (0.0-11.0); NEUTROPHILS # (AUTO) 8.2 K/uL (1.8-8.9); NEUTROPHILS % (AUTO) 78.5 % (38.5-71.5); PLATELET COUNT (AUTO) 145 K/uL (152-348); RED BLOOD CELL COUNT(AUTO) 4.92 MIL/uL (4.06-5.63); RED CELL DISTRIBUTION WIDTH 14.4 % (12.1-16.2); WHITE BLOOD COUNT (AUTO) 10.5 K/uL (3.6-10.2)
[2022-04-02 11:49] LABS: DIFFERENTIAL COMMENT 1
[2022-04-02 11:59] LABS: CALCIUM 8.6 mg/dL (8.5-10.1); CREATININE 0.8 mg/dL (0.6-1.3); POTASSIUM 3.7 mmol/L (3.5-5.1)
[2022-04-02 12:05] LABS: ALBUMIN 3.5 g/dL (3.4-5.0); BILIRUBIN,TOTAL 0.4 mg/dL (0.2-1.0); TOTAL PROTEIN, SERUM 7.8 g/dL (6.4-8.2)
[2022-04-02 20:18] VITALS: TEMP 97.5
[2022-04-02] MEDS: MIRALAX 17 GM POWD.PACK GT SCH (20:26)
[2022-04-03] MEDS: BACLOFEN 10 MG TABLET GT SCH ×3 (05:06→21:21)
[2022-04-03] MEDS: JEVITY 1.2 1000 ML LIQUID GT PRN (05:06)
[2022-04-03] MEDS: OMEPRAZOLE 20 MG CAPSULE.DR GT SCH ×2 (05:31→21:19)
[2022-04-03] MEDS: ALBUTEROL SULFATE 2.5 MG/3 ML NEBU NEB SCH ×4 (07:18→19:02)
[2022-04-03] MEDS: IPRATROPIUM BROMIDE 0.5 MG/2.5 ML NEBU NEB SCH ×4 (07:18→19:02)
[2022-04-03] MEDS: HYDROGEN PEROXIDE 3% 118 ML BOTTLE TOP SCH ×2 (07:18→20:48)
[2022-04-03 07:27] VITALS: TEMP 97.6
[2022-04-03] MEDS: PROTEIN SUPPLEMENT (PROSTAT) 30 ML LIQUID GT SCH (08:00)
[2022-04-03] MEDS: REMEDY ESSENTIAL ZINC PASTE 113 GM TP SCH ×2 (09:00→21:21)
[2022-04-03] MEDS: COD LIVER OIL/ZINC OXIDE OINT 113 GM TUBE TP SCH ×2 (09:00→21:20)
[2022-04-03] MEDS: VITAMINS A AND D OINT 42 GM TUBE TP SCH ×2 (09:00)
[2022-04-03] MEDS: PHENOBARBITAL 64.8 MG TABLET GT SCH ×2 (09:00→21:17)
[2022-04-03] MEDS: NORMAL SALINE FLUSH 10 ML DISP.SYRIN IV SCH (09:00)
[2022-04-03] MEDS: PHENYTOIN 100 MG/4 ML UDC GT SCH ×2 (09:00→21:17)
[2022-04-03] MEDS: ARGININE/GLUTAMINE/CALCIUM BMB 1 EACH POWD.PACK GT SCH ×2 (09:00→17:10)
[2022-04-03] MEDS: CHOLECALCIFEROL 400 UNITS TABLET GT SCH ×2 (09:00→21:19)
[2022-04-03] MEDS: CULTURELLE CAPSULE GT SCH ×2 (09:00→21:14)
[2022-04-03] MEDS: ASCORBIC ACID 500 MG TABLET GT SCH (09:00)
[2022-04-03 20:00] VITALS: TEMP 98.1
[2022-04-03] MEDS: MIRALAX 17 GM POWD.PACK GT SCH (21:17)
[2022-04-03] MEDS: TRIAMCINOLONE ACET 0.1% CREAM 15 GM TUBE TP SCH (21:21)
[2022-04-03] MEDS: NYSTATIN CREAM 30 GM TUBE TP SCH (21:21)
[2022-04-04] MEDS: JEVITY 1.2 1000 ML LIQUID GT PRN (02:00)
[2022-04-04] MEDS: BACLOFEN 10 MG TABLET GT SCH ×3 (05:45→22:04)
[2022-04-04] MEDS: OMEPRAZOLE 20 MG CAPSULE.DR GT SCH ×2 (05:45→20:42)
[2022-04-04] MEDS: HYDROGEN PEROXIDE 3% 118 ML BOTTLE TOP SCH ×2 (07:25→19:48)
[2022-04-04] MEDS: ALBUTEROL SULFATE 2.5 MG/3 ML NEBU NEB SCH ×4 (07:25→19:48)
[2022-04-04] MEDS: IPRATROPIUM BROMIDE 0.5 MG/2.5 ML NEBU NEB SCH ×4 (07:25→19:48)
[2022-04-04 07:53] VITALS: TEMP 97.6
[2022-04-04] MEDS: PROTEIN SUPPLEMENT (PROSTAT) 30 ML LIQUID GT SCH (08:00)
[2022-04-04] MEDS: CULTURELLE CAPSULE GT SCH ×2 (09:09→20:39)
[2022-04-04] MEDS: ARGININE/GLUTAMINE/CALCIUM BMB 1 EACH POWD.PACK GT SCH ×2 (09:09→17:03)
[2022-04-04] MEDS: PHENYTOIN 100 MG/4 ML UDC GT SCH ×2 (09:09→20:39)
[2022-04-04] MEDS: TRIAMCINOLONE ACET 0.1% CREAM 15 GM TUBE TP SCH ×2 (09:11→20:43)
[2022-04-04] MEDS: PHENOBARBITAL 64.8 MG TABLET GT SCH ×2 (09:11→20:40)
[2022-04-04] MEDS: ASCORBIC ACID 500 MG TABLET GT SCH (09:11)
[2022-04-04] MEDS: COD LIVER OIL/ZINC OXIDE OINT 113 GM TUBE TP SCH ×2 (09:11→20:43)
[2022-04-04] MEDS: NYSTATIN CREAM 30 GM TUBE TP SCH ×2 (09:11→20:43)
[2022-04-04] MEDS: CHOLECALCIFEROL 400 UNITS TABLET GT SCH ×2 (09:11→20:42)
[2022-04-04] MEDS: REMEDY ESSENTIAL ZINC PASTE 113 GM TP SCH ×2 (09:11→20:43)
[2022-04-04] MEDS: VITAMINS A AND D OINT 42 GM TUBE TP SCH ×2 (09:11→09:12)
[2022-04-04 20:00] VITALS: TEMP 98.1
[2022-04-04] MEDS: MIRALAX 17 GM POWD.PACK GT SCH (20:41)
[2022-04-05] MEDS: JEVITY 1.2 1000 ML LIQUID GT PRN (04:30)
[2022-04-05] MEDS: OMEPRAZOLE 20 MG CAPSULE.DR GT SCH ×2 (05:53→20:50)
[2022-04-05] MEDS: BACLOFEN 10 MG TABLET GT SCH ×3 (05:53→21:49)
[2022-04-05] MEDS: IPRATROPIUM BROMIDE 0.5 MG/2.5 ML NEBU NEB SCH ×4 (07:15→19:14)
[2022-04-05] MEDS: HYDROGEN PEROXIDE 3% 118 ML BOTTLE TOP SCH ×2 (07:15→19:14)
[2022-04-05] MEDS: ALBUTEROL SULFATE 2.5 MG/3 ML NEBU NEB SCH ×4 (07:15→19:14)
[2022-04-05 07:49] VITALS: TEMP 97.5
[2022-04-05] MEDS: PROTEIN SUPPLEMENT (PROSTAT) 30 ML LIQUID GT SCH (08:30)
[2022-04-05] MEDS: CULTURELLE CAPSULE GT SCH ×2 (08:30→20:47)
[2022-04-05] MEDS: ARGININE/GLUTAMINE/CALCIUM BMB 1 EACH POWD.PACK GT SCH ×2 (08:31→17:15)
[2022-04-05] MEDS: CHOLECALCIFEROL 400 UNITS TABLET GT SCH ×2 (08:31→20:51)
[2022-04-05] MEDS: NYSTATIN CREAM 30 GM TUBE TP SCH ×2 (08:31→20:52)
[2022-04-05] MEDS: ASCORBIC ACID 500 MG TABLET GT SCH (08:31)
[2022-04-05] MEDS: PHENYTOIN 100 MG/4 ML UDC GT SCH ×2 (08:31→20:47)
[2022-04-05] MEDS: REMEDY ESSENTIAL ZINC PASTE 113 GM TP SCH ×2 (08:31→20:52)
[2022-04-05] MEDS: PHENOBARBITAL 64.8 MG TABLET GT SCH ×2 (08:31→20:50)
[2022-04-05] MEDS: COD LIVER OIL/ZINC OXIDE OINT 113 GM TUBE TP SCH ×2 (08:31→20:52)
[2022-04-05] MEDS: TRIAMCINOLONE ACET 0.1% CREAM 15 GM TUBE TP SCH ×2 (08:31→20:52)
[2022-04-05] MEDS: VITAMINS A AND D OINT 42 GM TUBE TP SCH ×2 (08:32)
[2022-04-05 20:33] VITALS: TEMP 98
[2022-04-05] MEDS: MIRALAX 17 GM POWD.PACK GT SCH (20:50)
[2022-04-06] MEDS: JEVITY 1.2 1000 ML LIQUID GT PRN (03:00)
[2022-04-06] MEDS: OMEPRAZOLE 20 MG CAPSULE.DR GT SCH ×2 (06:28→21:16)
[2022-04-06] MEDS: BACLOFEN 10 MG TABLET GT SCH ×3 (06:28→21:17)
[2022-04-06] MEDS: IPRATROPIUM BROMIDE 0.5 MG/2.5 ML NEBU NEB SCH ×4 (07:30→19:08)
[2022-04-06] MEDS: ALBUTEROL SULFATE 2.5 MG/3 ML NEBU NEB SCH ×4 (07:30→19:08)
[2022-04-06 07:34] VITALS: TEMP 97.7
[2022-04-06] MEDS: HYDROGEN PEROXIDE 3% 118 ML BOTTLE TOP SCH ×2 (08:21→19:08)
[2022-04-06] MEDS: CULTURELLE CAPSULE GT SCH ×2 (08:55→21:00)
[2022-04-06] MEDS: PROTEIN SUPPLEMENT (PROSTAT) 30 ML LIQUID GT SCH (08:55)
[2022-04-06] MEDS: PHENYTOIN 100 MG/4 ML UDC GT SCH ×2 (08:56→21:11)
[2022-04-06] MEDS: ARGININE/GLUTAMINE/CALCIUM BMB 1 EACH POWD.PACK GT SCH ×2 (08:57→17:00)
[2022-04-06] MEDS: PHENOBARBITAL 64.8 MG TABLET GT SCH ×2 (08:57→21:29)
[2022-04-06] MEDS: ASCORBIC ACID 500 MG TABLET GT SCH (08:59)
[2022-04-06] MEDS: CHOLECALCIFEROL 400 UNITS TABLET GT SCH ×2 (08:59→21:26)
[2022-04-06] MEDS: REMEDY ESSENTIAL ZINC PASTE 113 GM TP SCH ×2 (08:59→21:17)
[2022-04-06] MEDS: TRIAMCINOLONE ACET 0.1% CREAM 15 GM TUBE TP SCH ×2 (08:59→21:17)
[2022-04-06] MEDS: COD LIVER OIL/ZINC OXIDE OINT 113 GM TUBE TP SCH ×2 (08:59→21:17)
[2022-04-06] MEDS: NYSTATIN CREAM 30 GM TUBE TP SCH ×2 (08:59→21:17)
[2022-04-06] MEDS: VITAMINS A AND D OINT 42 GM TUBE TP SCH ×2 (09:00)
[2022-04-06 20:20] VITALS: TEMP 97.9
[2022-04-06] MEDS: MIRALAX 17 GM POWD.PACK GT SCH (21:26)
[2022-04-07] MEDS: JEVITY 1.2 1000 ML LIQUID GT PRN ×2 (02:46→18:39)
[2022-04-07] MEDS: OMEPRAZOLE 20 MG CAPSULE.DR GT SCH ×2 (05:52→20:39)
[2022-04-07] MEDS: BACLOFEN 10 MG TABLET GT SCH ×3 (05:52→22:11)
[2022-04-07] MEDS: IPRATROPIUM BROMIDE 0.5 MG/2.5 ML NEBU NEB SCH ×3 (07:05→19:01)
[2022-04-07] MEDS: ALBUTEROL SULFATE 2.5 MG/3 ML NEBU NEB SCH ×4 (07:05→19:40)
[2022-04-07 08:00] VITALS: TEMP 97.7
[2022-04-07] MEDS: PROTEIN SUPPLEMENT (PROSTAT) 30 ML LIQUID GT SCH (08:00)
[2022-04-07] MEDS: HYDROGEN PEROXIDE 3% 118 ML BOTTLE TOP SCH ×3 (09:09→19:40)
[2022-04-07] MEDS: PHENYTOIN 100 MG/4 ML UDC GT SCH ×2 (09:34→20:36)
[2022-04-07] MEDS: CULTURELLE CAPSULE GT SCH ×2 (09:34→20:36)
[2022-04-07] MEDS: PHENOBARBITAL 64.8 MG TABLET GT SCH ×2 (09:34→20:38)
[2022-04-07] MEDS: ASCORBIC ACID 500 MG TABLET GT SCH (09:37)
[2022-04-07] MEDS: CHOLECALCIFEROL 400 UNITS TABLET GT SCH ×2 (09:37→20:40)
[2022-04-07] MEDS: VITAMINS A AND D OINT 42 GM TUBE TP SCH ×2 (09:38)
[2022-04-07] MEDS: REMEDY ESSENTIAL ZINC PASTE 113 GM TP SCH ×2 (09:38→20:41)
[2022-04-07] MEDS: COD LIVER OIL/ZINC OXIDE OINT 113 GM TUBE TP SCH ×2 (09:38→20:40)
[2022-04-07] MEDS: TRIAMCINOLONE ACET 0.1% CREAM 15 GM TUBE TP SCH ×2 (09:38→20:40)
[2022-04-07] MEDS: NYSTATIN CREAM 30 GM TUBE TP SCH ×2 (09:38→20:40)
[2022-04-07] MEDS: ARGININE/GLUTAMINE/CALCIUM BMB 1 EACH POWD.PACK GT SCH ×2 (09:40→17:00)
[2022-04-07] MEDS ORDERED: CETAPHIL TOP PRN ×2 (12:00)
[2022-04-07] MEDS: CLOTRIMAZOLE 1% CREAM 30 GM TUBE TP PRN (15:14)
[2022-04-07 20:14] VITALS: TEMP 98.6
[2022-04-07] MEDS: MIRALAX 17 GM POWD.PACK GT SCH (20:39)
[2022-04-08] MEDS: BACLOFEN 10 MG TABLET GT SCH ×3 (05:10→21:56)
[2022-04-08] MEDS: OMEPRAZOLE 20 MG CAPSULE.DR GT SCH ×2 (05:41→20:54)
[2022-04-08 07:27] VITALS: TEMP 97.7
[2022-04-08] MEDS: ALBUTEROL SULFATE 2.5 MG/3 ML NEBU NEB SCH ×4 (08:18→19:06)
[2022-04-08] MEDS: IPRATROPIUM BROMIDE 0.5 MG/2.5 ML NEBU NEB SCH ×4 (08:18→19:06)
[2022-04-08] MEDS: ASCORBIC ACID 500 MG TABLET GT SCH (08:35)
[2022-04-08] MEDS: CULTURELLE CAPSULE GT SCH ×2 (08:35→20:52)
[2022-04-08] MEDS: PHENOBARBITAL 64.8 MG TABLET GT SCH ×2 (08:35→20:54)
[2022-04-08] MEDS: PHENYTOIN 100 MG/4 ML UDC GT SCH ×2 (08:35→20:52)
[2022-04-08] MEDS: PROTEIN SUPPLEMENT (PROSTAT) 30 ML LIQUID GT SCH (08:35)
[2022-04-08] MEDS: ARGININE/GLUTAMINE/CALCIUM BMB 1 EACH POWD.PACK GT SCH ×2 (08:35→17:00)
[2022-04-08] MEDS: TRIAMCINOLONE ACET 0.1% CREAM 15 GM TUBE TP SCH ×2 (08:36→20:55)
[2022-04-08] MEDS: COD LIVER OIL/ZINC OXIDE OINT 113 GM TUBE TP SCH ×2 (08:36→20:55)
[2022-04-08] MEDS: NYSTATIN CREAM 30 GM TUBE TP SCH ×2 (08:36→20:55)
[2022-04-08] MEDS: REMEDY ESSENTIAL ZINC PASTE 113 GM TP SCH ×2 (08:36→20:55)
[2022-04-08] MEDS: VITAMINS A AND D OINT 42 GM TUBE TP SCH ×3 (08:36)
[2022-04-08] MEDS: CHOLECALCIFEROL 400 UNITS TABLET GT SCH ×2 (08:36→20:54)
[2022-04-08] MEDS: JEVITY 1.2 1000 ML LIQUID GT PRN (18:54)
[2022-04-08 19:49] VITALS: TEMP 98.3
[2022-04-08] MEDS: MIRALAX 17 GM POWD.PACK GT SCH (20:54)
[2022-04-08] MEDS: HYDROGEN PEROXIDE 3% 118 ML BOTTLE TOP SCH (21:37)
[2022-04-09] MEDS: BACLOFEN 10 MG TABLET GT SCH ×3 (05:28→21:20)
[2022-04-09] MEDS: OMEPRAZOLE 20 MG CAPSULE.DR GT SCH ×2 (05:33→21:19)
[2022-04-09 07:17] VITALS: TEMP 97.6
[2022-04-09] MEDS: HYDROGEN PEROXIDE 3% 118 ML BOTTLE TOP SCH ×2 (07:21→19:11)
[2022-04-09] MEDS: ALBUTEROL SULFATE 2.5 MG/3 ML NEBU NEB SCH ×4 (07:21→19:11)
[2022-04-09] MEDS: IPRATROPIUM BROMIDE 0.5 MG/2.5 ML NEBU NEB SCH ×4 (07:21→19:11)
[2022-04-09] MEDS: PROTEIN SUPPLEMENT (PROSTAT) 30 ML LIQUID GT SCH (08:00)
[2022-04-09] MEDS: PHENYTOIN 100 MG/4 ML UDC GT SCH ×2 (09:17→21:17)
[2022-04-09] MEDS: ARGININE/GLUTAMINE/CALCIUM BMB 1 EACH POWD.PACK GT SCH ×2 (09:17→17:00)
[2022-04-09] MEDS: CHOLECALCIFEROL 400 UNITS TABLET GT SCH ×2 (09:17→21:19)
[2022-04-09] MEDS: PHENOBARBITAL 64.8 MG TABLET GT SCH ×2 (09:17→21:17)
[2022-04-09] MEDS: CULTURELLE CAPSULE GT SCH ×2 (09:17→21:15)
[2022-04-09] MEDS: ASCORBIC ACID 500 MG TABLET GT SCH (09:17)
[2022-04-09] MEDS: TRIAMCINOLONE ACET 0.1% CREAM 15 GM TUBE TP SCH ×2 (09:18→21:20)
[2022-04-09] MEDS: COD LIVER OIL/ZINC OXIDE OINT 113 GM TUBE TP SCH ×2 (09:18→21:20)
[2022-04-09] MEDS: VITAMINS A AND D OINT 42 GM TUBE TP SCH ×3 (09:19)
[2022-04-09] MEDS: NYSTATIN CREAM 30 GM TUBE TP SCH ×2 (09:19→21:20)
[2022-04-09] MEDS: REMEDY ESSENTIAL ZINC PASTE 113 GM TP SCH ×2 (09:19→21:20)
[2022-04-09] MEDS: JEVITY 1.2 1000 ML LIQUID GT PRN (18:31)
[2022-04-09 20:05] VITALS: TEMP 98.3
[2022-04-09] MEDS: MIRALAX 17 GM POWD.PACK GT SCH (21:19)
[2022-04-10] MEDS: OMEPRAZOLE 20 MG CAPSULE.DR GT SCH ×2 (06:16→21:40)
[2022-04-10] MEDS: BACLOFEN 10 MG TABLET GT SCH ×3 (06:16→21:41)
[2022-04-10] MEDS: IPRATROPIUM BROMIDE 0.5 MG/2.5 ML NEBU NEB SCH ×4 (07:15→18:59)
[2022-04-10] MEDS: ALBUTEROL SULFATE 2.5 MG/3 ML NEBU NEB SCH ×4 (07:15→18:59)
[2022-04-10 07:31] VITALS: TEMP 98
[2022-04-10] MEDS: PROTEIN SUPPLEMENT (PROSTAT) 30 ML LIQUID GT SCH (08:00)
[2022-04-10] MEDS: HYDROGEN PEROXIDE 3% 118 ML BOTTLE TOP SCH ×2 (08:51→20:55)
[2022-04-10] MEDS: REMEDY ESSENTIAL ZINC PASTE 113 GM TP SCH ×2 (08:59→21:41)
[2022-04-10] MEDS: PHENYTOIN 100 MG/4 ML UDC GT SCH ×2 (08:59→21:37)
[2022-04-10] MEDS: ARGININE/GLUTAMINE/CALCIUM BMB 1 EACH POWD.PACK GT SCH ×2 (08:59→17:38)
[2022-04-10] MEDS: ASCORBIC ACID 500 MG TABLET GT SCH (08:59)
[2022-04-10] MEDS: CHOLECALCIFEROL 400 UNITS TABLET GT SCH ×2 (08:59→21:40)
[2022-04-10] MEDS: CULTURELLE CAPSULE GT SCH ×2 (08:59→21:37)
[2022-04-10] MEDS: NYSTATIN CREAM 30 GM TUBE TP SCH ×2 (08:59→21:41)
[2022-04-10] MEDS: TRIAMCINOLONE ACET 0.1% CREAM 15 GM TUBE TP SCH ×2 (08:59→21:41)
[2022-04-10] MEDS: PHENOBARBITAL 64.8 MG TABLET GT SCH ×2 (08:59→21:38)
[2022-04-10] MEDS: COD LIVER OIL/ZINC OXIDE OINT 113 GM TUBE TP SCH ×2 (08:59→21:41)
[2022-04-10] MEDS: VITAMINS A AND D OINT 42 GM TUBE TP SCH ×3 (09:00)
[2022-04-10] MEDS: JEVITY 1.2 1000 ML LIQUID GT PRN (17:40)
[2022-04-10 19:55] VITALS: TEMP 97.9
[2022-04-10] MEDS: MIRALAX 17 GM POWD.PACK GT SCH (21:39)
[2022-04-11] MEDS: OMEPRAZOLE 20 MG CAPSULE.DR GT SCH ×2 (05:59→21:38)
[2022-04-11] MEDS: BACLOFEN 10 MG TABLET GT SCH ×3 (05:59→21:39)
[2022-04-11] MEDS: ALBUTEROL SULFATE 2.5 MG/3 ML NEBU NEB SCH ×4 (07:13→19:45)
[2022-04-11] MEDS: IPRATROPIUM BROMIDE 0.5 MG/2.5 ML NEBU NEB SCH ×4 (07:13→19:45)
[2022-04-11 07:43] VITALS: TEMP 97.6
[2022-04-11] MEDS: PROTEIN SUPPLEMENT (PROSTAT) 30 ML LIQUID GT SCH (08:29)
[2022-04-11] MEDS: PHENYTOIN 100 MG/4 ML UDC GT SCH ×2 (08:31→21:29)
[2022-04-11] MEDS: ARGININE/GLUTAMINE/CALCIUM BMB 1 EACH POWD.PACK GT SCH ×2 (08:31→17:02)
[2022-04-11] MEDS: CULTURELLE CAPSULE GT SCH ×2 (08:31→21:28)
[2022-04-11] MEDS: CHOLECALCIFEROL 400 UNITS TABLET GT SCH ×2 (08:33→21:38)
[2022-04-11] MEDS: PHENOBARBITAL 64.8 MG TABLET GT SCH ×2 (08:33→21:29)
[2022-04-11] MEDS: ASCORBIC ACID 500 MG TABLET GT SCH (08:33)
[2022-04-11] MEDS: TRIAMCINOLONE ACET 0.1% CREAM 15 GM TUBE TP SCH ×2 (08:34→21:39)
[2022-04-11] MEDS: COD LIVER OIL/ZINC OXIDE OINT 113 GM TUBE TP SCH ×2 (08:34→21:38)
[2022-04-11] MEDS: REMEDY ESSENTIAL ZINC PASTE 113 GM TP SCH ×2 (08:34→21:39)
[2022-04-11] MEDS: NYSTATIN CREAM 30 GM TUBE TP SCH ×2 (08:34→21:39)
[2022-04-11] MEDS: VITAMINS A AND D OINT 42 GM TUBE TP SCH ×3 (08:34)
[2022-04-11] MEDS: HYDROGEN PEROXIDE 3% 118 ML BOTTLE TOP SCH ×2 (08:40→19:45)
[2022-04-11 20:00] VITALS: TEMP 98
[2022-04-11] MEDS: MIRALAX 17 GM POWD.PACK GT SCH (21:38)
[2022-04-12] MEDS: OMEPRAZOLE 20 MG CAPSULE.DR GT SCH ×2 (05:30→20:43)
[2022-04-12] MEDS: BACLOFEN 10 MG TABLET GT SCH ×3 (05:30→21:24)
[2022-04-12 07:36] VITALS: TEMP 97.4
[2022-04-12] MEDS: IPRATROPIUM BROMIDE 0.5 MG/2.5 ML NEBU NEB SCH ×4 (07:51→19:54)
[2022-04-12] MEDS: ALBUTEROL SULFATE 2.5 MG/3 ML NEBU NEB SCH ×4 (07:51→19:54)
[2022-04-12] MEDS: PROTEIN SUPPLEMENT (PROSTAT) 30 ML LIQUID GT SCH (08:30)
[2022-04-12] MEDS: PHENYTOIN 100 MG/4 ML UDC GT SCH ×2 (08:36→20:43)
[2022-04-12] MEDS: CULTURELLE CAPSULE GT SCH ×2 (08:36→21:00)
[2022-04-12] MEDS: ARGININE/GLUTAMINE/CALCIUM BMB 1 EACH POWD.PACK GT SCH ×2 (08:37→17:19)
[2022-04-12] MEDS: PHENOBARBITAL 64.8 MG TABLET GT SCH ×2 (08:37→20:43)
[2022-04-12] MEDS: CHOLECALCIFEROL 400 UNITS TABLET GT SCH ×2 (08:39→20:43)
[2022-04-12] MEDS: ASCORBIC ACID 500 MG TABLET GT SCH (08:39)
[2022-04-12] MEDS: REMEDY ESSENTIAL ZINC PASTE 113 GM TP SCH ×2 (08:40→20:44)
[2022-04-12] MEDS: COD LIVER OIL/ZINC OXIDE OINT 113 GM TUBE TP SCH ×2 (08:40→20:43)
[2022-04-12] MEDS: TRIAMCINOLONE ACET 0.1% CREAM 15 GM TUBE TP SCH ×2 (08:40→20:44)
[2022-04-12] MEDS: NYSTATIN CREAM 30 GM TUBE TP SCH ×2 (08:40→20:44)
[2022-04-12] MEDS: VITAMINS A AND D OINT 42 GM TUBE TP SCH ×3 (09:00)
[2022-04-12] MEDS: HYDROGEN PEROXIDE 3% 118 ML BOTTLE TOP SCH ×2 (09:16→19:54)
[2022-04-12] MEDS: JEVITY 1.2 1000 ML LIQUID GT PRN (12:30)
[2022-04-12 20:00] VITALS: TEMP 98.1
[2022-04-12] MEDS: MIRALAX 17 GM POWD.PACK GT SCH (20:43)
[2022-04-13] MEDS: BACLOFEN 10 MG TABLET GT SCH ×3 (05:25→22:00)
[2022-04-13] MEDS: OMEPRAZOLE 20 MG CAPSULE.DR GT SCH ×2 (05:33→20:44)
[2022-04-13] MEDS: IPRATROPIUM BROMIDE 0.5 MG/2.5 ML NEBU NEB SCH ×4 (07:38→19:48)
[2022-04-13] MEDS: HYDROGEN PEROXIDE 3% 118 ML BOTTLE TOP SCH ×2 (07:38→19:48)
[2022-04-13] MEDS: ALBUTEROL SULFATE 2.5 MG/3 ML NEBU NEB SCH ×4 (07:38→19:48)
[2022-04-13 07:56] VITALS: TEMP 97.6
[2022-04-13] MEDS: PROTEIN SUPPLEMENT (PROSTAT) 30 ML LIQUID GT SCH (08:00)
[2022-04-13] MEDS: CULTURELLE CAPSULE GT SCH ×2 (08:42→20:39)
[2022-04-13] MEDS: PHENYTOIN 100 MG/4 ML UDC GT SCH ×2 (08:42→20:39)
[2022-04-13] MEDS: PHENOBARBITAL 64.8 MG TABLET GT SCH ×2 (08:43→20:41)
[2022-04-13] MEDS: ARGININE/GLUTAMINE/CALCIUM BMB 1 EACH POWD.PACK GT SCH ×2 (08:43→17:45)
[2022-04-13] MEDS: CHOLECALCIFEROL 400 UNITS TABLET GT SCH ×2 (08:45→20:44)
[2022-04-13] MEDS: ASCORBIC ACID 500 MG TABLET GT SCH (08:45)
[2022-04-13] MEDS: NYSTATIN CREAM 30 GM TUBE TP SCH ×2 (08:46→20:45)
[2022-04-13] MEDS: VITAMINS A AND D OINT 42 GM TUBE TP SCH ×3 (08:46)
[2022-04-13] MEDS: REMEDY ESSENTIAL ZINC PASTE 113 GM TP SCH ×2 (08:46→20:46)
[2022-04-13] MEDS: TRIAMCINOLONE ACET 0.1% CREAM 15 GM TUBE TP SCH ×2 (08:46→20:44)
[2022-04-13] MEDS: COD LIVER OIL/ZINC OXIDE OINT 113 GM TUBE TP SCH ×2 (08:46→20:44)
[2022-04-13 20:00] VITALS: TEMP 98
[2022-04-13] MEDS: MIRALAX 17 GM POWD.PACK GT SCH (20:43)
[2022-04-14] MEDS: JEVITY 1.2 1000 ML LIQUID GT PRN (00:45)
[2022-04-14] MEDS: BACLOFEN 10 MG TABLET GT SCH ×3 (05:40→21:16)
[2022-04-14] MEDS: OMEPRAZOLE 20 MG CAPSULE.DR GT SCH ×2 (05:40→20:51)
[2022-04-14] MEDS: IPRATROPIUM BROMIDE 0.5 MG/2.5 ML NEBU NEB SCH ×4 (05:53→19:47)
[2022-04-14] MEDS: ALBUTEROL SULFATE 2.5 MG/3 ML NEBU NEB SCH ×4 (05:54→19:47)
[2022-04-14] MEDS: HYDROGEN PEROXIDE 3% 118 ML BOTTLE TOP SCH ×2 (05:54→19:47)
[2022-04-14 07:58] VITALS: TEMP 97.5
[2022-04-14] MEDS: PROTEIN SUPPLEMENT (PROSTAT) 30 ML LIQUID GT SCH (08:00)
[2022-04-14] MEDS: CULTURELLE CAPSULE GT SCH ×2 (08:15→20:49)
[2022-04-14] MEDS: PHENYTOIN 100 MG/4 ML UDC GT SCH ×2 (08:15→20:49)
[2022-04-14] MEDS: ARGININE/GLUTAMINE/CALCIUM BMB 1 EACH POWD.PACK GT SCH ×2 (08:16→17:33)
[2022-04-14] MEDS: PHENOBARBITAL 64.8 MG TABLET GT SCH ×2 (08:18→20:49)
[2022-04-14] MEDS: VITAMINS A AND D OINT 42 GM TUBE TP SCH ×3 (08:19)
[2022-04-14] MEDS: ASCORBIC ACID 500 MG TABLET GT SCH (08:19)
[2022-04-14] MEDS: COD LIVER OIL/ZINC OXIDE OINT 113 GM TUBE TP SCH ×2 (08:19→20:51)
[2022-04-14] MEDS: CHOLECALCIFEROL 400 UNITS TABLET GT SCH ×2 (08:19→20:51)
[2022-04-14] MEDS: NYSTATIN CREAM 30 GM TUBE TP SCH ×2 (08:19→20:51)
[2022-04-14] MEDS: TRIAMCINOLONE ACET 0.1% CREAM 15 GM TUBE TP SCH ×2 (08:19→20:51)
[2022-04-14] MEDS: REMEDY ESSENTIAL ZINC PASTE 113 GM TP SCH ×2 (08:19→20:51)
[2022-04-14 20:26] VITALS: TEMP 97.8
[2022-04-14] MEDS: MIRALAX 17 GM POWD.PACK GT SCH (20:50)
[2022-04-15] MEDS: BACLOFEN 10 MG TABLET GT SCH ×3 (05:24→21:25)
[2022-04-15] MEDS: OMEPRAZOLE 20 MG CAPSULE.DR GT SCH ×2 (05:33→21:25)
[2022-04-15 07:25] VITALS: TEMP 97.6
[2022-04-15] MEDS: ALBUTEROL SULFATE 2.5 MG/3 ML NEBU NEB SCH ×4 (07:35→19:00)
[2022-04-15] MEDS: IPRATROPIUM BROMIDE 0.5 MG/2.5 ML NEBU NEB SCH ×4 (07:35→19:00)
[2022-04-15] MEDS: PROTEIN SUPPLEMENT (PROSTAT) 30 ML LIQUID GT SCH (08:00)
[2022-04-15] MEDS: ARGININE/GLUTAMINE/CALCIUM BMB 1 EACH POWD.PACK GT SCH ×2 (08:17→16:48)
[2022-04-15] MEDS: PHENYTOIN 100 MG/4 ML UDC GT SCH ×2 (08:17→21:23)
[2022-04-15] MEDS: CULTURELLE CAPSULE GT SCH ×2 (08:17→21:23)
[2022-04-15] MEDS: ASCORBIC ACID 500 MG TABLET GT SCH (08:18)
[2022-04-15] MEDS: CHOLECALCIFEROL 400 UNITS TABLET GT SCH ×2 (08:18→21:25)
[2022-04-15] MEDS: PHENOBARBITAL 64.8 MG TABLET GT SCH ×2 (08:18→21:23)
[2022-04-15] MEDS: VITAMINS A AND D OINT 42 GM TUBE TP SCH ×3 (08:22→08:23)
[2022-04-15] MEDS: TRIAMCINOLONE ACET 0.1% CREAM 15 GM TUBE TP SCH ×2 (08:22→21:25)
[2022-04-15] MEDS: REMEDY ESSENTIAL ZINC PASTE 113 GM TP SCH ×2 (08:22→21:25)
[2022-04-15] MEDS: COD LIVER OIL/ZINC OXIDE OINT 113 GM TUBE TP SCH ×2 (08:22→21:25)
[2022-04-15] MEDS: NYSTATIN CREAM 30 GM TUBE TP SCH ×2 (08:22→21:25)
[2022-04-15] MEDS: HYDROGEN PEROXIDE 3% 118 ML BOTTLE TOP SCH ×2 (09:00→19:00)
[2022-04-15 19:53] VITALS: TEMP 98
[2022-04-15] MEDS: MIRALAX 17 GM POWD.PACK GT SCH (21:24)
[2022-04-16] MEDS: JEVITY 1.2 1000 ML LIQUID GT PRN (04:07)
[2022-04-16] MEDS: BACLOFEN 10 MG TABLET GT SCH ×3 (05:14→21:29)
[2022-04-16] MEDS: OMEPRAZOLE 20 MG CAPSULE.DR GT SCH ×2 (05:52→21:28)
[2022-04-16 07:11] VITALS: TEMP 97.7
[2022-04-16] MEDS: ALBUTEROL SULFATE 2.5 MG/3 ML NEBU NEB SCH ×4 (07:22→19:05)
[2022-04-16] MEDS: HYDROGEN PEROXIDE 3% 118 ML BOTTLE TOP SCH ×2 (07:22→19:05)
[2022-04-16] MEDS: IPRATROPIUM BROMIDE 0.5 MG/2.5 ML NEBU NEB SCH ×4 (07:22→19:05)
[2022-04-16] MEDS: PROTEIN SUPPLEMENT (PROSTAT) 30 ML LIQUID GT SCH (08:00)
[2022-04-16] MEDS: PHENYTOIN 100 MG/4 ML UDC GT SCH ×2 (08:15→21:28)
[2022-04-16] MEDS: ARGININE/GLUTAMINE/CALCIUM BMB 1 EACH POWD.PACK GT SCH ×2 (08:15→17:11)
[2022-04-16] MEDS: CULTURELLE CAPSULE GT SCH ×2 (08:15→21:28)
[2022-04-16] MEDS: PHENOBARBITAL 64.8 MG TABLET GT SCH ×2 (08:16→21:28)
[2022-04-16] MEDS: CHOLECALCIFEROL 400 UNITS TABLET GT SCH ×2 (08:18→21:28)
[2022-04-16] MEDS: COD LIVER OIL/ZINC OXIDE OINT 113 GM TUBE TP SCH ×2 (08:18→21:28)
[2022-04-16] MEDS: TRIAMCINOLONE ACET 0.1% CREAM 15 GM TUBE TP SCH ×2 (08:18→21:28)
[2022-04-16] MEDS: ASCORBIC ACID 500 MG TABLET GT SCH (08:18)
[2022-04-16] MEDS: VITAMINS A AND D OINT 42 GM TUBE TP SCH ×3 (08:19)
[2022-04-16] MEDS: NYSTATIN CREAM 30 GM TUBE TP SCH ×2 (08:19→21:28)
[2022-04-16] MEDS: REMEDY ESSENTIAL ZINC PASTE 113 GM TP SCH ×2 (08:19→21:29)
[2022-04-16 19:50] VITALS: TEMP 98
[2022-04-16] MEDS: MIRALAX 17 GM POWD.PACK GT SCH (21:28)
[2022-04-17] MEDS: JEVITY 1.2 1000 ML LIQUID GT PRN (01:07)
[2022-04-17] MEDS: OMEPRAZOLE 20 MG CAPSULE.DR GT SCH ×2 (05:49→21:33)
[2022-04-17] MEDS: BACLOFEN 10 MG TABLET GT SCH ×3 (05:49→21:33)
[2022-04-17 07:22] VITALS: TEMP 97.7
[2022-04-17] MEDS: PROTEIN SUPPLEMENT (PROSTAT) 30 ML LIQUID GT SCH (08:00)
[2022-04-17] MEDS: ALBUTEROL SULFATE 2.5 MG/3 ML NEBU NEB SCH ×4 (08:01→19:05)
[2022-04-17] MEDS: HYDROGEN PEROXIDE 3% 118 ML BOTTLE TOP SCH ×2 (08:01→21:29)
[2022-04-17] MEDS: IPRATROPIUM BROMIDE 0.5 MG/2.5 ML NEBU NEB SCH ×4 (08:01→19:05)
[2022-04-17] MEDS: CULTURELLE CAPSULE GT SCH ×2 (08:05→21:34)
[2022-04-17] MEDS: ARGININE/GLUTAMINE/CALCIUM BMB 1 EACH POWD.PACK GT SCH ×2 (08:06→17:09)
[2022-04-17] MEDS: PHENYTOIN 100 MG/4 ML UDC GT SCH ×2 (08:06→21:34)
[2022-04-17] MEDS: ASCORBIC ACID 500 MG TABLET GT SCH (08:07)
[2022-04-17] MEDS: CHOLECALCIFEROL 400 UNITS TABLET GT SCH ×2 (08:07→21:33)
[2022-04-17] MEDS: PHENOBARBITAL 64.8 MG TABLET GT SCH ×2 (08:07→21:34)
[2022-04-17] MEDS: TRIAMCINOLONE ACET 0.1% CREAM 15 GM TUBE TP SCH ×2 (08:08→21:33)
[2022-04-17] MEDS: COD LIVER OIL/ZINC OXIDE OINT 113 GM TUBE TP SCH ×2 (08:08→21:33)
[2022-04-17] MEDS: NYSTATIN CREAM 30 GM TUBE TP SCH ×2 (08:08→21:33)
[2022-04-17] MEDS: VITAMINS A AND D OINT 42 GM TUBE TP SCH ×3 (08:08)
[2022-04-17] MEDS: REMEDY ESSENTIAL ZINC PASTE 113 GM TP SCH ×2 (08:08→21:33)
[2022-04-17] MEDS: BETAMET DP 0.05% AUGM CR 15 GM CREAM.GM. TP PRN (17:10)
[2022-04-17] MEDS: CLOTRIMAZOLE 1% CREAM 30 GM TUBE TP PRN (17:10)
[2022-04-17 20:00] VITALS: TEMP 98
[2022-04-17] MEDS: MIRALAX 17 GM POWD.PACK GT SCH (21:34)
[2022-04-18] MEDS: JEVITY 1.2 1000 ML LIQUID GT PRN (02:00)
[2022-04-18] MEDS: BACLOFEN 10 MG TABLET GT SCH ×3 (05:54→21:32)
[2022-04-18] MEDS: OMEPRAZOLE 20 MG CAPSULE.DR GT SCH ×2 (05:54→20:45)
[2022-04-18] MEDS: IPRATROPIUM BROMIDE 0.5 MG/2.5 ML NEBU NEB SCH ×4 (06:03→20:02)
[2022-04-18] MEDS: ALBUTEROL SULFATE 2.5 MG/3 ML NEBU NEB SCH ×4 (06:03→20:02)
[2022-04-18 07:18] VITALS: TEMP 97.9
[2022-04-18] MEDS: PROTEIN SUPPLEMENT (PROSTAT) 30 ML LIQUID GT SCH (08:00)
[2022-04-18] MEDS: CULTURELLE CAPSULE GT SCH ×2 (08:21→20:45)
[2022-04-18] MEDS: PHENYTOIN 100 MG/4 ML UDC GT SCH ×2 (08:22→20:45)
[2022-04-18] MEDS: ARGININE/GLUTAMINE/CALCIUM BMB 1 EACH POWD.PACK GT SCH ×2 (08:23→16:15)
[2022-04-18] MEDS: PHENOBARBITAL 64.8 MG TABLET GT SCH ×2 (08:26→20:45)
[2022-04-18] MEDS: CHOLECALCIFEROL 400 UNITS TABLET GT SCH ×2 (08:26→20:45)
[2022-04-18] MEDS: ASCORBIC ACID 500 MG TABLET GT SCH (08:26)
[2022-04-18] MEDS: TRIAMCINOLONE ACET 0.1% CREAM 15 GM TUBE TP SCH ×2 (08:27→20:45)
[2022-04-18] MEDS: COD LIVER OIL/ZINC OXIDE OINT 113 GM TUBE TP SCH ×2 (08:27→20:45)
[2022-04-18] MEDS: REMEDY ESSENTIAL ZINC PASTE 113 GM TP SCH ×2 (08:28→20:45)
[2022-04-18] MEDS: VITAMINS A AND D OINT 42 GM TUBE TP SCH ×3 (08:28)
[2022-04-18] MEDS: NYSTATIN CREAM 30 GM TUBE TP SCH ×2 (08:28→20:45)
[2022-04-18] MEDS: HYDROGEN PEROXIDE 3% 118 ML BOTTLE TOP SCH ×2 (09:00→20:02)
[2022-04-18 20:00] VITALS: TEMP 98
[2022-04-18] MEDS: MIRALAX 17 GM POWD.PACK GT SCH (20:45)
[2022-04-19] MEDS: JEVITY 1.2 1000 ML LIQUID GT PRN ×2 (01:44→18:49)
[2022-04-19] MEDS: BACLOFEN 10 MG TABLET GT SCH ×3 (05:27→22:26)
[2022-04-19] MEDS: OMEPRAZOLE 20 MG CAPSULE.DR GT SCH ×2 (05:41→20:34)
[2022-04-19 07:05] VITALS: O2SAT 98
[2022-04-19] MEDS: IPRATROPIUM BROMIDE 0.5 MG/2.5 ML NEBU NEB SCH ×4 (07:05→19:04)
[2022-04-19] MEDS: ALBUTEROL SULFATE 2.5 MG/3 ML NEBU NEB SCH ×4 (07:05→19:04)
[2022-04-19] MEDS: HYDROGEN PEROXIDE 3% 118 ML BOTTLE TOP SCH ×2 (07:05→21:19)
[2022-04-19 07:47] VITALS: TEMP 97.6
[2022-04-19] MEDS: PROTEIN SUPPLEMENT (PROSTAT) 30 ML LIQUID GT SCH (08:00)
[2022-04-19] MEDS: CULTURELLE CAPSULE GT SCH ×2 (08:25→20:34)
[2022-04-19] MEDS: PHENYTOIN 100 MG/4 ML UDC GT SCH ×2 (08:25→20:34)
[2022-04-19] MEDS: ARGININE/GLUTAMINE/CALCIUM BMB 1 EACH POWD.PACK GT SCH ×2 (08:27→16:03)
[2022-04-19] MEDS: PHENOBARBITAL 64.8 MG TABLET GT SCH ×2 (08:27→20:34)
[2022-04-19] MEDS: ASCORBIC ACID 500 MG TABLET GT SCH (08:28)
[2022-04-19] MEDS: CHOLECALCIFEROL 400 UNITS TABLET GT SCH ×2 (08:28→20:34)
[2022-04-19] MEDS: COD LIVER OIL/ZINC OXIDE OINT 113 GM TUBE TP SCH ×2 (08:28→20:34)
[2022-04-19] MEDS: VITAMINS A AND D OINT 42 GM TUBE TP SCH ×3 (08:29)
[2022-04-19] MEDS: TRIAMCINOLONE ACET 0.1% CREAM 15 GM TUBE TP SCH ×2 (08:29→20:35)
[2022-04-19] MEDS: NYSTATIN CREAM 30 GM TUBE TP SCH ×2 (08:29→20:35)
[2022-04-19] MEDS: REMEDY ESSENTIAL ZINC PASTE 113 GM TP SCH ×2 (08:29→20:35)
[2022-04-19 19:56] VITALS: TEMP 97.9
[2022-04-19] MEDS: MIRALAX 17 GM POWD.PACK GT SCH (20:34)
[2022-04-20] MEDS: BACLOFEN 10 MG TABLET GT SCH ×3 (05:33→21:01)
[2022-04-20] MEDS: OMEPRAZOLE 20 MG CAPSULE.DR GT SCH ×2 (05:34→21:01)
[2022-04-20] MEDS: IPRATROPIUM BROMIDE 0.5 MG/2.5 ML NEBU NEB SCH ×4 (07:36→19:12)
[2022-04-20] MEDS: ALBUTEROL SULFATE 2.5 MG/3 ML NEBU NEB SCH ×4 (07:36→19:13)
[2022-04-20 07:46] VITALS: TEMP 98.9
[2022-04-20] MEDS: PROTEIN SUPPLEMENT (PROSTAT) 30 ML LIQUID GT SCH (08:00)
[2022-04-20] MEDS: HYDROGEN PEROXIDE 3% 118 ML BOTTLE TOP SCH ×2 (08:21→19:05)
[2022-04-20] MEDS: PHENYTOIN 100 MG/4 ML UDC GT SCH ×2 (09:10→21:00)
[2022-04-20] MEDS: CULTURELLE CAPSULE GT SCH ×2 (09:10→21:00)
[2022-04-20] MEDS: ARGININE/GLUTAMINE/CALCIUM BMB 1 EACH POWD.PACK GT SCH ×2 (09:11→17:00)
[2022-04-20] MEDS: CHOLECALCIFEROL 400 UNITS TABLET GT SCH ×2 (09:14→21:01)
[2022-04-20] MEDS: ASCORBIC ACID 500 MG TABLET GT SCH (09:14)
[2022-04-20] MEDS: PHENOBARBITAL 64.8 MG TABLET GT SCH ×2 (09:14→21:00)
[2022-04-20] MEDS: REMEDY ESSENTIAL ZINC PASTE 113 GM TP SCH ×2 (09:15→21:01)
[2022-04-20] MEDS: COD LIVER OIL/ZINC OXIDE OINT 113 GM TUBE TP SCH ×2 (09:15→21:01)
[2022-04-20] MEDS: VITAMINS A AND D OINT 42 GM TUBE TP SCH ×3 (09:15)
[2022-04-20] MEDS: TRIAMCINOLONE ACET 0.1% CREAM 15 GM TUBE TP SCH ×2 (09:15→21:01)
[2022-04-20] MEDS: NYSTATIN CREAM 30 GM TUBE TP SCH ×2 (09:15→21:01)
[2022-04-20] MEDS: JEVITY 1.2 1000 ML LIQUID GT PRN (15:30)
[2022-04-20 20:00] VITALS: TEMP 97.8
[2022-04-20] MEDS: MIRALAX 17 GM POWD.PACK GT SCH (21:00)
[2022-04-21] MEDS: BACLOFEN 10 MG TABLET GT SCH ×3 (06:12→21:28)
[2022-04-21] MEDS: OMEPRAZOLE 20 MG CAPSULE.DR GT SCH ×2 (06:12→21:28)
[2022-04-21 07:31] VITALS: TEMP 98
[2022-04-21] MEDS: IPRATROPIUM BROMIDE 0.5 MG/2.5 ML NEBU NEB SCH ×4 (07:51→19:14)
[2022-04-21] MEDS: ALBUTEROL SULFATE 2.5 MG/3 ML NEBU NEB SCH ×4 (07:51→19:14)
[2022-04-21] MEDS: PROTEIN SUPPLEMENT (PROSTAT) 30 ML LIQUID GT SCH (08:24)
[2022-04-21] MEDS: HYDROGEN PEROXIDE 3% 118 ML BOTTLE TOP SCH ×2 (08:26→21:00)
[2022-04-21] MEDS: PHENYTOIN 100 MG/4 ML UDC GT SCH ×2 (08:27→21:28)
[2022-04-21] MEDS: ARGININE/GLUTAMINE/CALCIUM BMB 1 EACH POWD.PACK GT SCH ×2 (08:27→17:35)
[2022-04-21] MEDS: CULTURELLE CAPSULE GT SCH ×2 (08:27→21:28)
[2022-04-21] MEDS: PHENOBARBITAL 64.8 MG TABLET GT SCH ×2 (08:28→21:28)
[2022-04-21] MEDS: ASCORBIC ACID 500 MG TABLET GT SCH (08:28)
[2022-04-21] MEDS: REMEDY ESSENTIAL ZINC PASTE 113 GM TP SCH ×2 (08:29→21:28)
[2022-04-21] MEDS: COD LIVER OIL/ZINC OXIDE OINT 113 GM TUBE TP SCH ×2 (08:29→21:28)
[2022-04-21] MEDS: CHOLECALCIFEROL 400 UNITS TABLET GT SCH ×2 (08:29→21:28)
[2022-04-21] MEDS: NYSTATIN CREAM 30 GM TUBE TP SCH ×2 (08:29→21:28)
[2022-04-21] MEDS: TRIAMCINOLONE ACET 0.1% CREAM 15 GM TUBE TP SCH ×2 (08:29→21:28)
[2022-04-21] MEDS: VITAMINS A AND D OINT 42 GM TUBE TP SCH ×3 (08:30)
[2022-04-21 19:53] VITALS: TEMP 98.3
[2022-04-21] MEDS: MIRALAX 17 GM POWD.PACK GT SCH (21:28)
[2022-04-22] MEDS: JEVITY 1.2 1000 ML LIQUID GT PRN (04:07)
[2022-04-22] MEDS: OMEPRAZOLE 20 MG CAPSULE.DR GT SCH ×2 (05:50→21:19)
[2022-04-22] MEDS: BACLOFEN 10 MG TABLET GT SCH ×3 (05:50→21:23)
[2022-04-22 07:22] VITALS: TEMP 97.6
[2022-04-22] MEDS: ALBUTEROL SULFATE 2.5 MG/3 ML NEBU NEB SCH ×4 (07:57→19:20)
[2022-04-22] MEDS: IPRATROPIUM BROMIDE 0.5 MG/2.5 ML NEBU NEB SCH ×4 (07:57→19:20)
[2022-04-22] MEDS: PROTEIN SUPPLEMENT (PROSTAT) 30 ML LIQUID GT SCH (08:00)
[2022-04-22] MEDS: HYDROGEN PEROXIDE 3% 118 ML BOTTLE TOP SCH ×2 (08:02→21:00)
[2022-04-22] MEDS: CULTURELLE CAPSULE GT SCH ×2 (08:40→21:29)
[2022-04-22] MEDS: PHENYTOIN 100 MG/4 ML UDC GT SCH ×2 (08:40→21:21)
[2022-04-22] MEDS: PHENOBARBITAL 64.8 MG TABLET GT SCH ×2 (08:41→21:26)
[2022-04-22] MEDS: ARGININE/GLUTAMINE/CALCIUM BMB 1 EACH POWD.PACK GT SCH ×2 (08:41→17:59)
[2022-04-22] MEDS: COD LIVER OIL/ZINC OXIDE OINT 113 GM TUBE TP SCH ×3 (08:43→21:23)
[2022-04-22] MEDS: ASCORBIC ACID 500 MG TABLET GT SCH (08:43)
[2022-04-22] MEDS: CHOLECALCIFEROL 400 UNITS TABLET GT SCH ×2 (08:43→21:26)
[2022-04-22] MEDS: VITAMINS A AND D OINT 42 GM TUBE TP SCH ×3 (08:44)
[2022-04-22] MEDS: TRIAMCINOLONE ACET 0.1% CREAM 15 GM TUBE TP SCH (08:44)
[2022-04-22] MEDS: NYSTATIN CREAM 30 GM TUBE TP SCH (08:44)
[2022-04-22] MEDS: REMEDY ESSENTIAL ZINC PASTE 113 GM TP SCH ×2 (08:44→21:23)
[2022-04-22] MEDS ORDERED: COD LIVER OIL/ZINC OXIDE OINT 113 GM TUBE TP PRN (13:45)
[2022-04-22] MEDS ORDERED: CLOTRIMAZOLE 1% CREAM 30 GM TUBE TP PRN (13:45)
[2022-04-22] MEDS: CLOTRIMAZOLE 1% CREAM 30 GM TUBE TP SCH (14:00)
[2022-04-22 20:36] VITALS: TEMP 98.4
[2022-04-22] MEDS: MIRALAX 17 GM POWD.PACK GT SCH (21:30)
[2022-04-23] MEDS: JEVITY 1.2 1000 ML LIQUID GT PRN (04:51)
[2022-04-23] MEDS: BACLOFEN 10 MG TABLET GT SCH ×3 (05:17→21:17)
[2022-04-23] MEDS: OMEPRAZOLE 20 MG CAPSULE.DR GT SCH ×2 (05:17→21:16)
[2022-04-23 07:25] VITALS: TEMP 97.6
[2022-04-23] MEDS: HYDROGEN PEROXIDE 3% 118 ML BOTTLE TOP SCH ×2 (07:38→19:54)
[2022-04-23] MEDS: ALBUTEROL SULFATE 2.5 MG/3 ML NEBU NEB SCH ×4 (08:05→19:54)
[2022-04-23] MEDS: IPRATROPIUM BROMIDE 0.5 MG/2.5 ML NEBU NEB SCH ×4 (08:05→19:54)
[2022-04-23] MEDS: PROTEIN SUPPLEMENT (PROSTAT) 30 ML LIQUID GT SCH (09:00)
[2022-04-23] MEDS: CULTURELLE CAPSULE GT SCH ×2 (09:25→21:12)
[2022-04-23] MEDS: PHENYTOIN 100 MG/4 ML UDC GT SCH ×2 (09:25→21:12)
[2022-04-23] MEDS: ARGININE/GLUTAMINE/CALCIUM BMB 1 EACH POWD.PACK GT SCH ×2 (09:27→16:23)
[2022-04-23] MEDS: ASCORBIC ACID 500 MG TABLET GT SCH (09:29)
[2022-04-23] MEDS: CHOLECALCIFEROL 400 UNITS TABLET GT SCH ×2 (09:29→21:16)
[2022-04-23] MEDS: COD LIVER OIL/ZINC OXIDE OINT 113 GM TUBE TP SCH ×3 (09:29→21:16)
[2022-04-23] MEDS: CLOTRIMAZOLE 1% CREAM 30 GM TUBE TP SCH (09:30)
[2022-04-23] MEDS: VITAMINS A AND D OINT 42 GM TUBE TP SCH ×3 (09:30)
[2022-04-23] MEDS: REMEDY ESSENTIAL ZINC PASTE 113 GM TP SCH ×2 (09:30→21:17)
[2022-04-23] MEDS: PHENOBARBITAL 64.8 MG TABLET GT SCH ×2 (09:32→21:15)
[2022-04-23 20:21] VITALS: TEMP 97.8
[2022-04-23] MEDS: MIRALAX 17 GM POWD.PACK GT SCH (21:19)
[2022-04-24] MEDS: BACLOFEN 10 MG TABLET GT SCH ×3 (05:27→22:56)
[2022-04-24] MEDS: OMEPRAZOLE 20 MG CAPSULE.DR GT SCH ×2 (05:28→20:22)
[2022-04-24 07:21] VITALS: TEMP 97.9
[2022-04-24] MEDS: IPRATROPIUM BROMIDE 0.5 MG/2.5 ML NEBU NEB SCH ×4 (07:22→19:18)
[2022-04-24] MEDS: ALBUTEROL SULFATE 2.5 MG/3 ML NEBU NEB SCH ×4 (07:22→19:18)
[2022-04-24] MEDS: HYDROGEN PEROXIDE 3% 118 ML BOTTLE TOP SCH ×2 (07:22→19:18)
[2022-04-24] MEDS: PROTEIN SUPPLEMENT (PROSTAT) 30 ML LIQUID GT SCH (08:00)
[2022-04-24] MEDS: PHENYTOIN 100 MG/4 ML UDC GT SCH ×2 (08:21→20:21)
[2022-04-24] MEDS: CULTURELLE CAPSULE GT SCH ×2 (08:21→20:21)
[2022-04-24] MEDS: COD LIVER OIL/ZINC OXIDE OINT 113 GM TUBE TP SCH ×3 (08:23→20:25)
[2022-04-24] MEDS: ASCORBIC ACID 500 MG TABLET GT SCH (08:23)
[2022-04-24] MEDS: CHOLECALCIFEROL 400 UNITS TABLET GT SCH ×2 (08:23→20:25)
[2022-04-24] MEDS: PHENOBARBITAL 64.8 MG TABLET GT SCH ×2 (08:23→20:22)
[2022-04-24] MEDS: CLOTRIMAZOLE 1% CREAM 30 GM TUBE TP SCH (08:23)
[2022-04-24] MEDS: ARGININE/GLUTAMINE/CALCIUM BMB 1 EACH POWD.PACK GT SCH ×2 (08:23→16:10)
[2022-04-24] MEDS: VITAMINS A AND D OINT 42 GM TUBE TP SCH ×3 (08:24)
[2022-04-24] MEDS: REMEDY ESSENTIAL ZINC PASTE 113 GM TP SCH ×2 (08:24→20:25)
[2022-04-24] MEDS: MIRALAX 17 GM POWD.PACK GT SCH (20:22)
[2022-04-24 20:38] VITALS: TEMP 98.3
[2022-04-24] MEDS: JEVITY 1.2 1000 ML LIQUID GT PRN (22:10)
[2022-04-25] MEDS: BACLOFEN 10 MG TABLET GT SCH ×3 (05:12→21:04)
[2022-04-25] MEDS: OMEPRAZOLE 20 MG CAPSULE.DR GT SCH ×2 (06:03→20:46)
[2022-04-25] MEDS: ALBUTEROL SULFATE 2.5 MG/3 ML NEBU NEB SCH ×4 (07:26→19:17)
[2022-04-25] MEDS: HYDROGEN PEROXIDE 3% 118 ML BOTTLE TOP SCH ×2 (07:26→20:50)
[2022-04-25] MEDS: IPRATROPIUM BROMIDE 0.5 MG/2.5 ML NEBU NEB SCH ×4 (07:26→19:17)
[2022-04-25 07:36] VITALS: TEMP 97.9
[2022-04-25] MEDS: PROTEIN SUPPLEMENT (PROSTAT) 30 ML LIQUID GT SCH (08:00)
[2022-04-25] MEDS: CHOLECALCIFEROL 400 UNITS TABLET GT SCH ×2 (08:33→20:46)
[2022-04-25] MEDS: PHENYTOIN 100 MG/4 ML UDC GT SCH ×2 (08:33→20:49)
[2022-04-25] MEDS: ARGININE/GLUTAMINE/CALCIUM BMB 1 EACH POWD.PACK GT SCH ×2 (08:33→17:21)
[2022-04-25] MEDS: PHENOBARBITAL 64.8 MG TABLET GT SCH ×2 (08:33→20:50)
[2022-04-25] MEDS: ASCORBIC ACID 500 MG TABLET GT SCH (08:33)
[2022-04-25] MEDS: CULTURELLE CAPSULE GT SCH ×2 (08:33→20:53)
[2022-04-25] MEDS: COD LIVER OIL/ZINC OXIDE OINT 113 GM TUBE TP SCH ×3 (08:36→20:46)
[2022-04-25] MEDS: VITAMINS A AND D OINT 42 GM TUBE TP SCH ×3 (08:37)
[2022-04-25] MEDS: REMEDY ESSENTIAL ZINC PASTE 113 GM TP SCH ×2 (08:37→20:47)
[2022-04-25] MEDS: CLOTRIMAZOLE 1% CREAM 30 GM TUBE TP SCH (08:37)
[2022-04-25] MEDS: JEVITY 1.2 1000 ML LIQUID GT PRN (18:14)
[2022-04-25 20:28] VITALS: TEMP 98
[2022-04-25] MEDS: MIRALAX 17 GM POWD.PACK GT SCH (20:46)
[2022-04-26] MEDS: BACLOFEN 10 MG TABLET GT SCH ×3 (05:43→22:00)
[2022-04-26] MEDS: OMEPRAZOLE 20 MG CAPSULE.DR GT SCH ×2 (05:43→20:38)
[2022-04-26] MEDS: IPRATROPIUM BROMIDE 0.5 MG/2.5 ML NEBU NEB SCH ×5 (07:00→19:57)
[2022-04-26] MEDS: ALBUTEROL SULFATE 2.5 MG/3 ML NEBU NEB SCH ×5 (07:00→19:57)
[2022-04-26 07:31] VITALS: TEMP 97
[2022-04-26] MEDS: PROTEIN SUPPLEMENT (PROSTAT) 30 ML LIQUID GT SCH (08:00)
[2022-04-26] MEDS: CULTURELLE CAPSULE GT SCH ×2 (08:38→20:28)
[2022-04-26] MEDS: PHENYTOIN 100 MG/4 ML UDC GT SCH ×2 (08:40→20:36)
[2022-04-26] MEDS: ARGININE/GLUTAMINE/CALCIUM BMB 1 EACH POWD.PACK GT SCH ×2 (08:40→17:00)
[2022-04-26] MEDS: HYDROGEN PEROXIDE 3% 118 ML BOTTLE TOP SCH ×2 (08:40→21:01)
[2022-04-26] MEDS: ASCORBIC ACID 500 MG TABLET GT SCH (08:40)
[2022-04-26] MEDS: REMEDY ESSENTIAL ZINC PASTE 113 GM TP SCH ×2 (08:41→20:39)
[2022-04-26] MEDS: PHENOBARBITAL 64.8 MG TABLET GT SCH ×2 (08:41→20:38)
[2022-04-26] MEDS: COD LIVER OIL/ZINC OXIDE OINT 113 GM TUBE TP SCH ×3 (08:41→20:39)
[2022-04-26] MEDS: CLOTRIMAZOLE 1% CREAM 30 GM TUBE TP SCH (08:41)
[2022-04-26] MEDS: VITAMINS A AND D OINT 42 GM TUBE TP SCH ×3 (08:41)
[2022-04-26] MEDS: CHOLECALCIFEROL 400 UNITS TABLET GT SCH ×2 (08:41→20:38)
[2022-04-26] MEDS: JEVITY 1.2 1000 ML LIQUID GT PRN (13:36)
[2022-04-26 20:33] VITALS: TEMP 98.5
[2022-04-26] MEDS: MIRALAX 17 GM POWD.PACK GT SCH (20:38)
[2022-04-27] MEDS: BACLOFEN 10 MG TABLET GT SCH ×3 (06:00→21:22)
[2022-04-27] MEDS: OMEPRAZOLE 20 MG CAPSULE.DR GT SCH ×2 (06:00→20:27)
[2022-04-27 07:33] VITALS: TEMP 97.3
[2022-04-27] MEDS: IPRATROPIUM BROMIDE 0.5 MG/2.5 ML NEBU NEB SCH ×4 (08:02→19:59)
[2022-04-27] MEDS: ALBUTEROL SULFATE 2.5 MG/3 ML NEBU NEB SCH ×4 (08:02→19:59)
[2022-04-27] MEDS: PROTEIN SUPPLEMENT (PROSTAT) 30 ML LIQUID GT SCH (09:00)
[2022-04-27] MEDS: HYDROGEN PEROXIDE 3% 118 ML BOTTLE TOP SCH ×2 (09:00→19:59)
[2022-04-27] MEDS: CULTURELLE CAPSULE GT SCH ×2 (09:58→20:27)
[2022-04-27] MEDS: ARGININE/GLUTAMINE/CALCIUM BMB 1 EACH POWD.PACK GT SCH ×2 (09:58→17:18)
[2022-04-27] MEDS: COD LIVER OIL/ZINC OXIDE OINT 113 GM TUBE TP SCH ×3 (09:58→20:28)
[2022-04-27] MEDS: PHENOBARBITAL 64.8 MG TABLET GT SCH ×2 (09:58→20:01)
[2022-04-27] MEDS: CLOTRIMAZOLE 1% CREAM 30 GM TUBE TP SCH (09:58)
[2022-04-27] MEDS: ASCORBIC ACID 500 MG TABLET GT SCH (09:58)
[2022-04-27] MEDS: PHENYTOIN 100 MG/4 ML UDC GT SCH ×2 (09:58→20:27)
[2022-04-27] MEDS: CHOLECALCIFEROL 400 UNITS TABLET GT SCH ×2 (09:58→20:27)
[2022-04-27] MEDS: JEVITY 1.2 1000 ML LIQUID GT PRN (09:58)
[2022-04-27] MEDS: VITAMINS A AND D OINT 42 GM TUBE TP SCH ×3 (09:58)
[2022-04-27] MEDS: REMEDY ESSENTIAL ZINC PASTE 113 GM TP SCH ×2 (09:58→20:28)
[2022-04-27 20:00] VITALS: TEMP 98.5
[2022-04-27] MEDS: MIRALAX 17 GM POWD.PACK GT SCH (20:27)
[2022-04-28] MEDS: BACLOFEN 10 MG TABLET GT SCH ×3 (05:25→22:05)
[2022-04-28] MEDS: OMEPRAZOLE 20 MG CAPSULE.DR GT SCH ×2 (05:42→20:50)
[2022-04-28] MEDS: JEVITY 1.2 1000 ML LIQUID GT PRN (05:42)
[2022-04-28] MEDS: ALBUTEROL SULFATE 2.5 MG/3 ML NEBU NEB SCH ×4 (07:54→20:01)
[2022-04-28] MEDS: IPRATROPIUM BROMIDE 0.5 MG/2.5 ML NEBU NEB SCH ×4 (07:54→20:01)
[2022-04-28 07:56] VITALS: TEMP 97.5
[2022-04-28] MEDS: PROTEIN SUPPLEMENT (PROSTAT) 30 ML LIQUID GT SCH (08:00)
[2022-04-28] MEDS: PHENYTOIN 100 MG/4 ML UDC GT SCH ×2 (08:25→20:47)
[2022-04-28] MEDS: CULTURELLE CAPSULE GT SCH ×2 (08:25→20:43)
[2022-04-28] MEDS: PHENOBARBITAL 64.8 MG TABLET GT SCH ×2 (08:26→20:49)
[2022-04-28] MEDS: ASCORBIC ACID 500 MG TABLET GT SCH (08:26)
[2022-04-28] MEDS: ARGININE/GLUTAMINE/CALCIUM BMB 1 EACH POWD.PACK GT SCH ×2 (08:26→16:49)
[2022-04-28] MEDS: CHOLECALCIFEROL 400 UNITS TABLET GT SCH ×2 (08:27→20:50)
[2022-04-28] MEDS: COD LIVER OIL/ZINC OXIDE OINT 113 GM TUBE TP SCH ×3 (08:27→20:51)
[2022-04-28] MEDS: CLOTRIMAZOLE 1% CREAM 30 GM TUBE TP SCH (08:27)
[2022-04-28] MEDS: REMEDY ESSENTIAL ZINC PASTE 113 GM TP SCH ×2 (08:28→20:51)
[2022-04-28] MEDS: VITAMINS A AND D OINT 42 GM TUBE TP SCH ×3 (08:28)
[2022-04-28] MEDS: HYDROGEN PEROXIDE 3% 118 ML BOTTLE TOP SCH ×2 (09:34→20:01)
[2022-04-28] MEDS: MIRALAX 17 GM POWD.PACK GT SCH (20:49)
[2022-04-29] MEDS: OMEPRAZOLE 20 MG CAPSULE.DR GT SCH ×2 (06:28→20:52)
[2022-04-29] MEDS: BACLOFEN 10 MG TABLET GT SCH ×3 (06:28→22:04)
[2022-04-29] MEDS: IPRATROPIUM BROMIDE 0.5 MG/2.5 ML NEBU NEB SCH ×4 (07:19→18:59)
[2022-04-29] MEDS: ALBUTEROL SULFATE 2.5 MG/3 ML NEBU NEB SCH ×4 (07:19→18:59)
[2022-04-29 07:27] VITALS: TEMP 97.7
[2022-04-29] MEDS: PROTEIN SUPPLEMENT (PROSTAT) 30 ML LIQUID GT SCH (08:00)
[2022-04-29] MEDS: CULTURELLE CAPSULE GT SCH ×2 (08:07→20:50)
[2022-04-29] MEDS: PHENYTOIN 100 MG/4 ML UDC GT SCH ×2 (08:07→20:50)
[2022-04-29] MEDS: HYDROGEN PEROXIDE 3% 118 ML BOTTLE TOP SCH ×2 (08:08→20:55)
[2022-04-29] MEDS: PHENOBARBITAL 64.8 MG TABLET GT SCH ×2 (08:09→20:51)
[2022-04-29] MEDS: ARGININE/GLUTAMINE/CALCIUM BMB 1 EACH POWD.PACK GT SCH ×2 (08:09→17:02)
[2022-04-29] MEDS: CHOLECALCIFEROL 400 UNITS TABLET GT SCH ×2 (08:10→20:52)
[2022-04-29] MEDS: CLOTRIMAZOLE 1% CREAM 30 GM TUBE TP SCH (08:10)
[2022-04-29] MEDS: COD LIVER OIL/ZINC OXIDE OINT 113 GM TUBE TP SCH ×3 (08:10→20:53)
[2022-04-29] MEDS: REMEDY ESSENTIAL ZINC PASTE 113 GM TP SCH ×2 (08:10→20:53)
[2022-04-29] MEDS: ASCORBIC ACID 500 MG TABLET GT SCH (08:10)
[2022-04-29] MEDS: VITAMINS A AND D OINT 42 GM TUBE TP SCH ×3 (08:11)
[2022-04-29 20:08] VITALS: TEMP 98.4
[2022-04-29] MEDS: MIRALAX 17 GM POWD.PACK GT SCH (20:51)
[2022-04-30] MEDS: BACLOFEN 10 MG TABLET GT SCH ×3 (05:18→21:04)
[2022-04-30] MEDS: OMEPRAZOLE 20 MG CAPSULE.DR GT SCH ×2 (05:31→20:36)
[2022-04-30 07:16] VITALS: TEMP 97.6
[2022-04-30] MEDS: PROTEIN SUPPLEMENT (PROSTAT) 30 ML LIQUID GT SCH (08:00)
[2022-04-30] MEDS: ALBUTEROL SULFATE 2.5 MG/3 ML NEBU NEB SCH ×4 (08:13→19:06)
[2022-04-30] MEDS: IPRATROPIUM BROMIDE 0.5 MG/2.5 ML NEBU NEB SCH ×4 (08:13→19:06)
[2022-04-30] MEDS: HYDROGEN PEROXIDE 3% 118 ML BOTTLE TOP SCH ×2 (08:14→19:18)
[2022-04-30] MEDS: CULTURELLE CAPSULE GT SCH ×2 (08:35→20:33)
[2022-04-30] MEDS: PHENYTOIN 100 MG/4 ML UDC GT SCH ×2 (08:35→20:33)
[2022-04-30] MEDS: ARGININE/GLUTAMINE/CALCIUM BMB 1 EACH POWD.PACK GT SCH ×2 (08:37→16:37)
[2022-04-30] MEDS: PHENOBARBITAL 64.8 MG TABLET GT SCH ×2 (08:38→20:33)
[2022-04-30] MEDS: CHOLECALCIFEROL 400 UNITS TABLET GT SCH ×2 (08:38→20:36)
[2022-04-30] MEDS: ASCORBIC ACID 500 MG TABLET GT SCH (08:38)
[2022-04-30] MEDS: VITAMINS A AND D OINT 42 GM TUBE TP SCH ×3 (08:39)
[2022-04-30] MEDS: REMEDY ESSENTIAL ZINC PASTE 113 GM TP SCH ×2 (08:39→20:38)
[2022-04-30] MEDS: CLOTRIMAZOLE 1% CREAM 30 GM TUBE TP SCH (08:39)
[2022-04-30] MEDS: COD LIVER OIL/ZINC OXIDE OINT 113 GM TUBE TP SCH ×3 (08:39→20:38)
[2022-04-30 20:00] VITALS: TEMP 98.3
[2022-04-30] MEDS: MIRALAX 17 GM POWD.PACK GT SCH (20:34)
[2022-05-01] MEDS: BACLOFEN 10 MG TABLET GT SCH ×3 (05:15→21:22)
[2022-05-01] MEDS: OMEPRAZOLE 20 MG CAPSULE.DR GT SCH ×2 (05:35→21:22)
[2022-05-01] MEDS: ALBUTEROL SULFATE 2.5 MG/3 ML NEBU NEB SCH ×4 (07:17→19:58)
[2022-05-01] MEDS: IPRATROPIUM BROMIDE 0.5 MG/2.5 ML NEBU NEB SCH ×4 (07:17→19:58)
[2022-05-01 07:23] VITALS: TEMP 97.6
[2022-05-01] MEDS: PROTEIN SUPPLEMENT (PROSTAT) 30 ML LIQUID GT SCH (08:00)
[2022-05-01] MEDS: HYDROGEN PEROXIDE 3% 118 ML BOTTLE TOP SCH ×2 (08:14→19:58)
[2022-05-01] MEDS: PHENYTOIN 100 MG/4 ML UDC GT SCH ×2 (08:31→21:22)
[2022-05-01] MEDS: CULTURELLE CAPSULE GT SCH ×2 (08:31→21:31)
[2022-05-01] MEDS: PHENOBARBITAL 64.8 MG TABLET GT SCH ×2 (08:33→21:22)
[2022-05-01] MEDS: REMEDY ESSENTIAL ZINC PASTE 113 GM TP SCH ×2 (08:33→21:22)
[2022-05-01] MEDS: VITAMINS A AND D OINT 42 GM TUBE TP SCH ×3 (08:33)
[2022-05-01] MEDS: CLOTRIMAZOLE 1% CREAM 30 GM TUBE TP SCH (08:33)
[2022-05-01] MEDS: CHOLECALCIFEROL 400 UNITS TABLET GT SCH ×2 (08:33→21:22)
[2022-05-01] MEDS: ASCORBIC ACID 500 MG TABLET GT SCH (08:33)
[2022-05-01] MEDS: ARGININE/GLUTAMINE/CALCIUM BMB 1 EACH POWD.PACK GT SCH ×2 (08:33→17:06)
[2022-05-01] MEDS: COD LIVER OIL/ZINC OXIDE OINT 113 GM TUBE TP SCH ×3 (08:33→21:22)
[2022-05-01 20:00] VITALS: TEMP 97.6
[2022-05-01] MEDS: MIRALAX 17 GM POWD.PACK GT SCH (21:22)
[2022-05-02] MEDS: BACLOFEN 10 MG TABLET GT SCH ×3 (06:02→21:25)
[2022-05-02] MEDS: OMEPRAZOLE 20 MG CAPSULE.DR GT SCH ×2 (06:05→20:49)
[2022-05-02] MEDS: ALBUTEROL SULFATE 2.5 MG/3 ML NEBU NEB SCH ×4 (07:05→20:03)
[2022-05-02] MEDS: IPRATROPIUM BROMIDE 0.5 MG/2.5 ML NEBU NEB SCH ×4 (07:05→20:03)
[2022-05-02] MEDS: HYDROGEN PEROXIDE 3% 118 ML BOTTLE TOP SCH ×2 (07:05→20:03)
[2022-05-02 07:39] VITALS: TEMP 98.1
[2022-05-02] MEDS: PROTEIN SUPPLEMENT (PROSTAT) 30 ML LIQUID GT SCH (08:00)
[2022-05-02] MEDS: PHENYTOIN 100 MG/4 ML UDC GT SCH ×2 (08:52→20:47)
[2022-05-02] MEDS: ASCORBIC ACID 500 MG TABLET GT SCH (08:53)
[2022-05-02] MEDS: ARGININE/GLUTAMINE/CALCIUM BMB 1 EACH POWD.PACK GT SCH ×2 (08:53→17:45)
[2022-05-02] MEDS: PHENOBARBITAL 64.8 MG TABLET GT SCH ×2 (08:53→20:48)
[2022-05-02] MEDS: CHOLECALCIFEROL 400 UNITS TABLET GT SCH ×2 (08:54→20:49)
[2022-05-02] MEDS: VITAMINS A AND D OINT 42 GM TUBE TP SCH ×3 (08:54)
[2022-05-02] MEDS: CLOTRIMAZOLE 1% CREAM 30 GM TUBE TP SCH (08:54)
[2022-05-02] MEDS: REMEDY ESSENTIAL ZINC PASTE 113 GM TP SCH ×2 (08:54→20:49)
[2022-05-02] MEDS: COD LIVER OIL/ZINC OXIDE OINT 113 GM TUBE TP SCH ×3 (08:54→20:49)
[2022-05-02] MEDS: CULTURELLE CAPSULE GT SCH ×2 (08:57→20:47)
[2022-05-02 20:10] VITALS: TEMP 97.8
[2022-05-02] MEDS: MIRALAX 17 GM POWD.PACK GT SCH (20:48)
[2022-05-03] MEDS: BACLOFEN 10 MG TABLET GT SCH ×3 (05:11→22:06)
[2022-05-03] MEDS: OMEPRAZOLE 20 MG CAPSULE.DR GT SCH ×2 (05:31→21:00)
[2022-05-03 07:34] VITALS: TEMP 98.2
[2022-05-03] MEDS: ALBUTEROL SULFATE 2.5 MG/3 ML NEBU NEB SCH ×4 (07:37→20:08)
[2022-05-03] MEDS: IPRATROPIUM BROMIDE 0.5 MG/2.5 ML NEBU NEB SCH ×4 (07:37→20:08)
[2022-05-03] MEDS: PROTEIN SUPPLEMENT (PROSTAT) 30 ML LIQUID GT SCH (08:00)
[2022-05-03] MEDS: HYDROGEN PEROXIDE 3% 118 ML BOTTLE TOP SCH ×2 (09:06→20:08)
[2022-05-03] MEDS: CULTURELLE CAPSULE GT SCH ×2 (09:07→20:50)
[2022-05-03] MEDS: PHENYTOIN 100 MG/4 ML UDC GT SCH ×2 (09:10→20:41)
[2022-05-03] MEDS: ARGININE/GLUTAMINE/CALCIUM BMB 1 EACH POWD.PACK GT SCH ×2 (09:11→17:37)
[2022-05-03] MEDS: PHENOBARBITAL 64.8 MG TABLET GT SCH ×2 (09:14→20:44)
[2022-05-03] MEDS: REMEDY ESSENTIAL ZINC PASTE 113 GM TP SCH ×2 (09:17→20:37)
[2022-05-03] MEDS: ASCORBIC ACID 500 MG TABLET GT SCH (09:17)
[2022-05-03] MEDS: COD LIVER OIL/ZINC OXIDE OINT 113 GM TUBE TP SCH ×3 (09:17→20:37)
[2022-05-03] MEDS: CHOLECALCIFEROL 400 UNITS TABLET GT SCH ×2 (09:17→20:38)
[2022-05-03] MEDS: CLOTRIMAZOLE 1% CREAM 30 GM TUBE TP SCH (09:17)
[2022-05-03] MEDS: VITAMINS A AND D OINT 42 GM TUBE TP SCH ×3 (09:18)
[2022-05-03 20:00] VITALS: TEMP 97.8
[2022-05-03] MEDS: MIRALAX 17 GM POWD.PACK GT SCH (20:39)
[2022-05-04] MEDS: BACLOFEN 10 MG TABLET GT SCH ×3 (05:08→22:00)
[2022-05-04] MEDS: OMEPRAZOLE 20 MG CAPSULE.DR GT SCH ×2 (05:08→21:00)
[2022-05-04] MEDS: IPRATROPIUM BROMIDE 0.5 MG/2.5 ML NEBU NEB SCH ×4 (07:21→20:20)
[2022-05-04] MEDS: ALBUTEROL SULFATE 2.5 MG/3 ML NEBU NEB SCH ×4 (07:21→20:20)
[2022-05-04 07:33] VITALS: TEMP 98
[2022-05-04] MEDS: PROTEIN SUPPLEMENT (PROSTAT) 30 ML LIQUID GT SCH (08:00)
[2022-05-04] MEDS: HYDROGEN PEROXIDE 3% 118 ML BOTTLE TOP SCH ×2 (08:17→20:20)
[2022-05-04] MEDS: CULTURELLE CAPSULE GT SCH ×2 (09:17→20:29)
[2022-05-04] MEDS: PHENYTOIN 100 MG/4 ML UDC GT SCH ×2 (09:19→20:33)
[2022-05-04] MEDS: ARGININE/GLUTAMINE/CALCIUM BMB 1 EACH POWD.PACK GT SCH ×2 (09:22→17:51)
[2022-05-04] MEDS: PHENOBARBITAL 64.8 MG TABLET GT SCH ×2 (09:24→20:35)
[2022-05-04] MEDS: CHOLECALCIFEROL 400 UNITS TABLET GT SCH ×2 (09:38→20:33)
[2022-05-04] MEDS: ASCORBIC ACID 500 MG TABLET GT SCH (09:38)
[2022-05-04] MEDS: COD LIVER OIL/ZINC OXIDE OINT 113 GM TUBE TP SCH ×3 (09:38→20:37)
[2022-05-04] MEDS: VITAMINS A AND D OINT 42 GM TUBE TP SCH ×3 (09:39)
[2022-05-04] MEDS: CLOTRIMAZOLE 1% CREAM 30 GM TUBE TP SCH (09:39)
[2022-05-04] MEDS: REMEDY ESSENTIAL ZINC PASTE 113 GM TP SCH ×2 (09:39→20:37)
[2022-05-04 19:47] VITALS: TEMP 98
[2022-05-04] MEDS: MIRALAX 17 GM POWD.PACK GT SCH (20:31)
[2022-05-05] MEDS: OMEPRAZOLE 20 MG CAPSULE.DR GT SCH ×2 (06:44→21:33)
[2022-05-05] MEDS: BACLOFEN 10 MG TABLET GT SCH ×3 (06:44→21:34)
[2022-05-05] MEDS: ALBUTEROL SULFATE 2.5 MG/3 ML NEBU NEB SCH ×4 (07:18→19:12)
[2022-05-05] MEDS: IPRATROPIUM BROMIDE 0.5 MG/2.5 ML NEBU NEB SCH ×4 (07:18→19:12)
[2022-05-05 07:23] VITALS: TEMP 97.8
[2022-05-05] MEDS: HYDROGEN PEROXIDE 3% 118 ML BOTTLE TOP SCH ×2 (08:23→19:13)
[2022-05-05] MEDS: COD LIVER OIL/ZINC OXIDE OINT 113 GM TUBE TP SCH ×3 (08:37→21:34)
[2022-05-05] MEDS: ARGININE/GLUTAMINE/CALCIUM BMB 1 EACH POWD.PACK GT SCH ×2 (08:37→17:21)
[2022-05-05] MEDS: CHOLECALCIFEROL 400 UNITS TABLET GT SCH ×2 (08:37→21:33)
[2022-05-05] MEDS: PROTEIN SUPPLEMENT (PROSTAT) 30 ML LIQUID GT SCH (08:37)
[2022-05-05] MEDS: ASCORBIC ACID 500 MG TABLET GT SCH (08:37)
[2022-05-05] MEDS: PHENOBARBITAL 64.8 MG TABLET GT SCH ×2 (08:37→21:33)
[2022-05-05] MEDS: PHENYTOIN 100 MG/4 ML UDC GT SCH ×2 (08:37→21:31)
[2022-05-05] MEDS: CULTURELLE CAPSULE GT SCH ×2 (08:37→21:33)
[2022-05-05] MEDS: VITAMINS A AND D OINT 42 GM TUBE TP SCH ×3 (08:38)
[2022-05-05] MEDS: REMEDY ESSENTIAL ZINC PASTE 113 GM TP SCH ×2 (08:38→21:34)
[2022-05-05] MEDS: CLOTRIMAZOLE 1% CREAM 30 GM TUBE TP SCH (08:38)
[2022-05-05 20:37] VITALS: TEMP 98.3
[2022-05-05] MEDS: MIRALAX 17 GM POWD.PACK GT SCH (21:30)
[2022-05-06] MEDS: BACLOFEN 10 MG TABLET GT SCH ×3 (06:30→22:39)
[2022-05-06] MEDS: OMEPRAZOLE 20 MG CAPSULE.DR GT SCH ×2 (06:31→21:00)
[2022-05-06 07:20] VITALS: TEMP 97.8
[2022-05-06] MEDS: IPRATROPIUM BROMIDE 0.5 MG/2.5 ML NEBU NEB SCH ×4 (07:50→19:14)
[2022-05-06] MEDS: ALBUTEROL SULFATE 2.5 MG/3 ML NEBU NEB SCH ×4 (07:50→19:14)
[2022-05-06] MEDS: HYDROGEN PEROXIDE 3% 118 ML BOTTLE TOP SCH ×2 (07:50→19:14)
[2022-05-06] MEDS: PROTEIN SUPPLEMENT (PROSTAT) 30 ML LIQUID GT SCH (08:00)
[2022-05-06] MEDS: CULTURELLE CAPSULE GT SCH ×2 (08:53→21:00)
[2022-05-06] MEDS: PHENYTOIN 100 MG/4 ML UDC GT SCH ×2 (08:54→21:00)
[2022-05-06] MEDS: ARGININE/GLUTAMINE/CALCIUM BMB 1 EACH POWD.PACK GT SCH ×2 (08:56→17:00)
[2022-05-06] MEDS: PHENOBARBITAL 64.8 MG TABLET GT SCH ×2 (08:56→21:00)
[2022-05-06] MEDS: ASCORBIC ACID 500 MG TABLET GT SCH (08:58)
[2022-05-06] MEDS: CHOLECALCIFEROL 400 UNITS TABLET GT SCH ×2 (08:58→21:00)
[2022-05-06] MEDS: COD LIVER OIL/ZINC OXIDE OINT 113 GM TUBE TP SCH ×3 (08:59→21:00)
[2022-05-06] MEDS: CLOTRIMAZOLE 1% CREAM 30 GM TUBE TP SCH (09:00)
[2022-05-06] MEDS: VITAMINS A AND D OINT 42 GM TUBE TP SCH ×3 (09:00)
[2022-05-06] MEDS: REMEDY ESSENTIAL ZINC PASTE 113 GM TP SCH ×2 (09:00→21:00)
[2022-05-06 19:48] VITALS: TEMP 98.2
[2022-05-06 19:49] VITALS: TEMP 98.2
[2022-05-06] MEDS: MIRALAX 17 GM POWD.PACK GT SCH (21:00)
[2022-05-07] MEDS: OMEPRAZOLE 20 MG CAPSULE.DR GT SCH ×2 (05:52→21:33)
[2022-05-07] MEDS: BACLOFEN 10 MG TABLET GT SCH ×3 (05:52→21:41)
[2022-05-07 07:17] VITALS: TEMP 97.7
[2022-05-07] MEDS: IPRATROPIUM BROMIDE 0.5 MG/2.5 ML NEBU NEB SCH ×4 (07:37→19:49)
[2022-05-07] MEDS: ALBUTEROL SULFATE 2.5 MG/3 ML NEBU NEB SCH ×4 (07:37→19:49)
[2022-05-07] MEDS: HYDROGEN PEROXIDE 3% 118 ML BOTTLE TOP SCH ×2 (07:37→19:49)
[2022-05-07] MEDS: PROTEIN SUPPLEMENT (PROSTAT) 30 ML LIQUID GT SCH (07:49)
[2022-05-07] MEDS: PHENOBARBITAL 64.8 MG TABLET GT SCH ×2 (08:02→21:31)
[2022-05-07] MEDS: ARGININE/GLUTAMINE/CALCIUM BMB 1 EACH POWD.PACK GT SCH ×2 (08:02→17:35)
[2022-05-07] MEDS: PHENYTOIN 100 MG/4 ML UDC GT SCH ×2 (08:02→21:31)
[2022-05-07] MEDS: CULTURELLE CAPSULE GT SCH ×2 (08:02→21:31)
[2022-05-07] MEDS: ASCORBIC ACID 500 MG TABLET GT SCH (08:02)
[2022-05-07] MEDS: COD LIVER OIL/ZINC OXIDE OINT 113 GM TUBE TP SCH ×3 (08:02→21:34)
[2022-05-07] MEDS: CHOLECALCIFEROL 400 UNITS TABLET GT SCH ×2 (08:02→21:34)
[2022-05-07] MEDS: VITAMINS A AND D OINT 42 GM TUBE TP SCH ×3 (08:03)
[2022-05-07] MEDS: REMEDY ESSENTIAL ZINC PASTE 113 GM TP SCH ×2 (08:03→21:34)
[2022-05-07] MEDS: CLOTRIMAZOLE 1% CREAM 30 GM TUBE TP SCH (08:03)
[2022-05-07 20:10] VITALS: TEMP 98.4
[2022-05-07] MEDS: MIRALAX 17 GM POWD.PACK GT SCH (21:33)
[2022-05-08] MEDS: OMEPRAZOLE 20 MG CAPSULE.DR GT SCH ×2 (06:05→21:22)
[2022-05-08] MEDS: BACLOFEN 10 MG TABLET GT SCH ×3 (06:05→21:23)
[2022-05-08] MEDS: ALBUTEROL SULFATE 2.5 MG/3 ML NEBU NEB SCH ×4 (07:02→19:05)
[2022-05-08] MEDS: HYDROGEN PEROXIDE 3% 118 ML BOTTLE TOP SCH ×2 (07:02→19:13)
[2022-05-08] MEDS: IPRATROPIUM BROMIDE 0.5 MG/2.5 ML NEBU NEB SCH ×4 (07:02→19:05)
[2022-05-08 08:00] VITALS: TEMP 97.6
[2022-05-08] MEDS: PROTEIN SUPPLEMENT (PROSTAT) 30 ML LIQUID GT SCH (08:00)
[2022-05-08] MEDS: PHENYTOIN 100 MG/4 ML UDC GT SCH ×2 (08:55→21:22)
[2022-05-08] MEDS: CULTURELLE CAPSULE GT SCH ×2 (08:55→21:22)
[2022-05-08] MEDS: ARGININE/GLUTAMINE/CALCIUM BMB 1 EACH POWD.PACK GT SCH ×2 (08:55→17:00)
[2022-05-08] MEDS: CLOTRIMAZOLE 1% CREAM 30 GM TUBE TP SCH (08:56)
[2022-05-08] MEDS: REMEDY ESSENTIAL ZINC PASTE 113 GM TP SCH ×2 (08:56→21:23)
[2022-05-08] MEDS: ASCORBIC ACID 500 MG TABLET GT SCH (08:56)
[2022-05-08] MEDS: COD LIVER OIL/ZINC OXIDE OINT 113 GM TUBE TP SCH ×3 (08:56→21:23)
[2022-05-08] MEDS: CHOLECALCIFEROL 400 UNITS TABLET GT SCH ×2 (08:56→21:22)
[2022-05-08] MEDS: PHENOBARBITAL 64.8 MG TABLET GT SCH ×2 (08:56→21:00)
[2022-05-08] MEDS: VITAMINS A AND D OINT 42 GM TUBE TP SCH ×3 (08:57)
[2022-05-08 20:54] VITALS: TEMP 97.8
[2022-05-08] MEDS: MIRALAX 17 GM POWD.PACK GT SCH (21:22)
[2022-05-09] MEDS: JEVITY 1.2 1000 ML LIQUID GT PRN (03:26)
[2022-05-09] MEDS: BACLOFEN 10 MG TABLET GT SCH ×3 (05:25→21:36)
[2022-05-09] MEDS: OMEPRAZOLE 20 MG CAPSULE.DR GT SCH ×2 (05:44→21:36)
[2022-05-09] MEDS: HYDROGEN PEROXIDE 3% 118 ML BOTTLE TOP SCH ×2 (07:52→19:06)
[2022-05-09] MEDS: ALBUTEROL SULFATE 2.5 MG/3 ML NEBU NEB SCH ×4 (07:52→19:04)
[2022-05-09] MEDS: IPRATROPIUM BROMIDE 0.5 MG/2.5 ML NEBU NEB SCH ×4 (07:52→19:04)
[2022-05-09 08:00] VITALS: TEMP 98
[2022-05-09] MEDS: PROTEIN SUPPLEMENT (PROSTAT) 30 ML LIQUID GT SCH (08:00)
[2022-05-09] MEDS: CULTURELLE CAPSULE GT SCH ×2 (08:30→21:34)
[2022-05-09] MEDS: PHENYTOIN 100 MG/4 ML UDC GT SCH ×2 (08:31→21:34)
[2022-05-09] MEDS: ARGININE/GLUTAMINE/CALCIUM BMB 1 EACH POWD.PACK GT SCH ×2 (08:32→17:19)
[2022-05-09] MEDS: ASCORBIC ACID 500 MG TABLET GT SCH (08:33)
[2022-05-09] MEDS: CHOLECALCIFEROL 400 UNITS TABLET GT SCH ×2 (08:33→21:36)
[2022-05-09] MEDS: PHENOBARBITAL 64.8 MG TABLET GT SCH ×2 (08:33→21:34)
[2022-05-09] MEDS: COD LIVER OIL/ZINC OXIDE OINT 113 GM TUBE TP SCH ×3 (08:33→21:36)
[2022-05-09] MEDS: REMEDY ESSENTIAL ZINC PASTE 113 GM TP SCH ×2 (08:34→21:36)
[2022-05-09] MEDS: VITAMINS A AND D OINT 42 GM TUBE TP SCH ×3 (08:34)
[2022-05-09] MEDS: CLOTRIMAZOLE 1% CREAM 30 GM TUBE TP SCH (08:34)
[2022-05-09 20:00] VITALS: TEMP 97.8
[2022-05-09] MEDS: MIRALAX 17 GM POWD.PACK GT SCH (21:35)
[2022-05-10] MEDS: BACLOFEN 10 MG TABLET GT SCH ×3 (05:14→21:15)
[2022-05-10] MEDS: OMEPRAZOLE 20 MG CAPSULE.DR GT SCH ×2 (06:24→21:14)
[2022-05-10] MEDS: IPRATROPIUM BROMIDE 0.5 MG/2.5 ML NEBU NEB SCH ×4 (07:04→19:16)
[2022-05-10] MEDS: ALBUTEROL SULFATE 2.5 MG/3 ML NEBU NEB SCH ×4 (07:04→19:16)
[2022-05-10 07:45] VITALS: TEMP 97
[2022-05-10] MEDS: PROTEIN SUPPLEMENT (PROSTAT) 30 ML LIQUID GT SCH (08:00)
[2022-05-10] MEDS: HYDROGEN PEROXIDE 3% 118 ML BOTTLE TOP SCH ×2 (08:30→21:08)
[2022-05-10] MEDS: COD LIVER OIL/ZINC OXIDE OINT 113 GM TUBE TP SCH ×3 (10:00→20:00)
[2022-05-10] MEDS: PHENYTOIN 100 MG/4 ML UDC GT SCH ×2 (10:00→20:00)
[2022-05-10] MEDS: REMEDY ESSENTIAL ZINC PASTE 113 GM TP SCH ×2 (10:00→20:01)
[2022-05-10] MEDS: VITAMINS A AND D OINT 42 GM TUBE TP SCH ×3 (10:00)
[2022-05-10] MEDS: ARGININE/GLUTAMINE/CALCIUM BMB 1 EACH POWD.PACK GT SCH ×2 (10:00→17:52)
[2022-05-10] MEDS: ASCORBIC ACID 500 MG TABLET GT SCH (10:00)
[2022-05-10] MEDS: CLOTRIMAZOLE 1% CREAM 30 GM TUBE TP SCH (10:00)
[2022-05-10] MEDS: CULTURELLE CAPSULE GT SCH ×2 (10:00→20:03)
[2022-05-10] MEDS: CHOLECALCIFEROL 400 UNITS TABLET GT SCH ×2 (10:00→20:00)
[2022-05-10] MEDS: PHENOBARBITAL 64.8 MG TABLET GT SCH ×2 (10:00→20:00)
[2022-05-10] MEDS: JEVITY 1.2 1000 ML LIQUID GT PRN (17:53)
[2022-05-10] MEDS: MIRALAX 17 GM POWD.PACK GT SCH (20:00)
[2022-05-10 21:37] VITALS: TEMP 97.9
[2022-05-11] MEDS: ALBUTEROL SULFATE 2.5 MG/3 ML NEBU NEB SCH ×4 (06:13→17:26)
[2022-05-11] MEDS: IPRATROPIUM BROMIDE 0.5 MG/2.5 ML NEBU NEB SCH ×4 (06:13→17:26)
[2022-05-11] MEDS: BACLOFEN 10 MG TABLET GT SCH ×3 (06:45→22:07)
[2022-05-11] MEDS: OMEPRAZOLE 20 MG CAPSULE.DR GT SCH ×2 (06:45→20:18)
[2022-05-11 07:37] VITALS: TEMP 97.1
[2022-05-11] MEDS: PROTEIN SUPPLEMENT (PROSTAT) 30 ML LIQUID GT SCH (08:00)
[2022-05-11] MEDS: HYDROGEN PEROXIDE 3% 118 ML BOTTLE TOP SCH ×2 (08:01→17:26)
[2022-05-11] MEDS: PHENYTOIN 100 MG/4 ML UDC GT SCH ×2 (08:46→20:17)
[2022-05-11] MEDS: ARGININE/GLUTAMINE/CALCIUM BMB 1 EACH POWD.PACK GT SCH ×2 (08:46→17:02)
[2022-05-11] MEDS: CULTURELLE CAPSULE GT SCH ×2 (08:46→20:17)
[2022-05-11] MEDS: PHENOBARBITAL 64.8 MG TABLET GT SCH ×2 (08:46→20:17)
[2022-05-11] MEDS: CLOTRIMAZOLE 1% CREAM 30 GM TUBE TP SCH (08:50)
[2022-05-11] MEDS: REMEDY ESSENTIAL ZINC PASTE 113 GM TP SCH ×2 (08:50→20:20)
[2022-05-11] MEDS: CHOLECALCIFEROL 400 UNITS TABLET GT SCH ×2 (08:50→20:18)
[2022-05-11] MEDS: ASCORBIC ACID 500 MG TABLET GT SCH (08:50)
[2022-05-11] MEDS: COD LIVER OIL/ZINC OXIDE OINT 113 GM TUBE TP SCH ×3 (08:50→20:20)
[2022-05-11] MEDS: VITAMINS A AND D OINT 42 GM TUBE TP SCH ×3 (08:50)
[2022-05-11 20:00] VITALS: TEMP 97.5
[2022-05-11] MEDS: MIRALAX 17 GM POWD.PACK GT SCH (20:17)
[2022-05-12] MEDS: OMEPRAZOLE 20 MG CAPSULE.DR GT SCH ×2 (06:11→20:40)
[2022-05-12] MEDS: BACLOFEN 10 MG TABLET GT SCH ×3 (06:11→21:19)
[2022-05-12] MEDS: ALBUTEROL SULFATE 2.5 MG/3 ML NEBU NEB SCH ×4 (06:26→20:22)
[2022-05-12] MEDS: IPRATROPIUM BROMIDE 0.5 MG/2.5 ML NEBU NEB SCH ×4 (06:26→20:22)
[2022-05-12] MEDS: PROTEIN SUPPLEMENT (PROSTAT) 30 ML LIQUID GT SCH (08:00)
[2022-05-12 08:01] VITALS: TEMP 97.8
[2022-05-12] MEDS: CULTURELLE CAPSULE GT SCH ×2 (08:41→20:39)
[2022-05-12] MEDS: PHENYTOIN 100 MG/4 ML UDC GT SCH ×2 (08:42→20:39)
[2022-05-12] MEDS: ARGININE/GLUTAMINE/CALCIUM BMB 1 EACH POWD.PACK GT SCH ×2 (08:43→16:10)
[2022-05-12] MEDS: ASCORBIC ACID 500 MG TABLET GT SCH (08:44)
[2022-05-12] MEDS: PHENOBARBITAL 64.8 MG TABLET GT SCH ×2 (08:44→20:40)
[2022-05-12] MEDS: CLOTRIMAZOLE 1% CREAM 30 GM TUBE TP SCH (08:45)
[2022-05-12] MEDS: REMEDY ESSENTIAL ZINC PASTE 113 GM TP SCH ×2 (08:45→20:41)
[2022-05-12] MEDS: CHOLECALCIFEROL 400 UNITS TABLET GT SCH ×2 (08:45→20:41)
[2022-05-12] MEDS: COD LIVER OIL/ZINC OXIDE OINT 113 GM TUBE TP SCH ×3 (08:45→20:41)
[2022-05-12] MEDS: VITAMINS A AND D OINT 42 GM TUBE TP SCH ×3 (08:45)
[2022-05-12] MEDS: HYDROGEN PEROXIDE 3% 118 ML BOTTLE TOP SCH ×2 (09:00→20:40)
[2022-05-12 20:00] VITALS: TEMP 98.4
[2022-05-12] MEDS: MIRALAX 17 GM POWD.PACK GT SCH (20:40)
[2022-05-13] MEDS: BACLOFEN 10 MG TABLET GT SCH ×3 (05:04→21:24)
[2022-05-13] MEDS: OMEPRAZOLE 20 MG CAPSULE.DR GT SCH ×2 (05:31→21:23)
[2022-05-13 07:30] VITALS: TEMP 98.1
[2022-05-13] MEDS: ALBUTEROL SULFATE 2.5 MG/3 ML NEBU NEB SCH ×4 (07:34→19:10)
[2022-05-13] MEDS: IPRATROPIUM BROMIDE 0.5 MG/2.5 ML NEBU NEB SCH ×4 (07:34→19:10)
[2022-05-13] MEDS: PROTEIN SUPPLEMENT (PROSTAT) 30 ML LIQUID GT SCH (08:00)
[2022-05-13] MEDS: HYDROGEN PEROXIDE 3% 118 ML BOTTLE TOP SCH ×2 (08:07→19:10)
[2022-05-13] MEDS: PHENYTOIN 100 MG/4 ML UDC GT SCH ×2 (09:01→21:19)
[2022-05-13] MEDS: ARGININE/GLUTAMINE/CALCIUM BMB 1 EACH POWD.PACK GT SCH ×2 (09:01→17:25)
[2022-05-13] MEDS: CULTURELLE CAPSULE GT SCH ×2 (09:01→21:19)
[2022-05-13] MEDS: PHENOBARBITAL 64.8 MG TABLET GT SCH ×2 (09:02→21:22)
[2022-05-13] MEDS: ASCORBIC ACID 500 MG TABLET GT SCH (09:03)
[2022-05-13] MEDS: CHOLECALCIFEROL 400 UNITS TABLET GT SCH ×2 (09:03→21:24)
[2022-05-13] MEDS: VITAMINS A AND D OINT 42 GM TUBE TP SCH ×3 (09:04)
[2022-05-13] MEDS: REMEDY ESSENTIAL ZINC PASTE 113 GM TP SCH ×2 (09:04→21:24)
[2022-05-13] MEDS: COD LIVER OIL/ZINC OXIDE OINT 113 GM TUBE TP SCH ×2 (09:04→21:24)
[2022-05-13 20:17] VITALS: TEMP 97.6
[2022-05-13] MEDS: MIRALAX 17 GM POWD.PACK GT SCH (21:22)
[2022-05-14] MEDS: BACLOFEN 10 MG TABLET GT SCH ×3 (05:04→21:42)
[2022-05-14] MEDS: OMEPRAZOLE 20 MG CAPSULE.DR GT SCH ×2 (06:00→21:42)
[2022-05-14] MEDS: IPRATROPIUM BROMIDE 0.5 MG/2.5 ML NEBU NEB SCH ×4 (06:13→19:08)
[2022-05-14] MEDS: ALBUTEROL SULFATE 2.5 MG/3 ML NEBU NEB SCH ×4 (06:13→19:09)
[2022-05-14 07:24] VITALS: TEMP 97.8
[2022-05-14] MEDS: PROTEIN SUPPLEMENT (PROSTAT) 30 ML LIQUID GT SCH (08:00)
[2022-05-14] MEDS: COD LIVER OIL/ZINC OXIDE OINT 113 GM TUBE TP SCH ×2 (09:00→21:42)
[2022-05-14] MEDS: REMEDY ESSENTIAL ZINC PASTE 113 GM TP SCH ×2 (09:00→21:42)
[2022-05-14] MEDS: VITAMINS A AND D OINT 42 GM TUBE TP SCH ×3 (09:00)
[2022-05-14] MEDS: HYDROGEN PEROXIDE 3% 118 ML BOTTLE TOP SCH ×2 (09:00→21:16)
[2022-05-14] MEDS: PHENYTOIN 100 MG/4 ML UDC GT SCH ×2 (09:53→21:39)
[2022-05-14] MEDS: ASCORBIC ACID 500 MG TABLET GT SCH (09:53)
[2022-05-14] MEDS: CHOLECALCIFEROL 400 UNITS TABLET GT SCH ×2 (09:53→21:42)
[2022-05-14] MEDS: CULTURELLE CAPSULE GT SCH ×2 (09:53→21:39)
[2022-05-14] MEDS: PHENOBARBITAL 64.8 MG TABLET GT SCH ×2 (09:53→21:40)
[2022-05-14] MEDS: ARGININE/GLUTAMINE/CALCIUM BMB 1 EACH POWD.PACK GT SCH ×2 (09:53→17:15)
[2022-05-14] MEDS: JEVITY 1.2 1000 ML LIQUID GT PRN (15:16)
[2022-05-14 21:06] VITALS: TEMP 98.9
[2022-05-14] MEDS: MIRALAX 17 GM POWD.PACK GT SCH (21:41)
[2022-05-15] MEDS: BACLOFEN 10 MG TABLET GT SCH ×3 (06:00→21:49)
[2022-05-15] MEDS: OMEPRAZOLE 20 MG CAPSULE.DR GT SCH ×2 (06:00→21:47)
[2022-05-15 07:19] VITALS: TEMP 97.7
[2022-05-15] MEDS: HYDROGEN PEROXIDE 3% 118 ML BOTTLE TOP SCH ×2 (07:22→19:47)
[2022-05-15] MEDS: IPRATROPIUM BROMIDE 0.5 MG/2.5 ML NEBU NEB SCH ×4 (07:22→19:46)
[2022-05-15] MEDS: ALBUTEROL SULFATE 2.5 MG/3 ML NEBU NEB SCH ×4 (07:22→19:46)
[2022-05-15] MEDS: PROTEIN SUPPLEMENT (PROSTAT) 30 ML LIQUID GT SCH (08:00)
[2022-05-15] MEDS: PHENOBARBITAL 64.8 MG TABLET GT SCH ×2 (09:26→21:46)
[2022-05-15] MEDS: ASCORBIC ACID 500 MG TABLET GT SCH (09:26)
[2022-05-15] MEDS: CHOLECALCIFEROL 400 UNITS TABLET GT SCH ×2 (09:26→21:48)
[2022-05-15] MEDS: CULTURELLE CAPSULE GT SCH ×2 (09:26→21:39)
[2022-05-15] MEDS: PHENYTOIN 100 MG/4 ML UDC GT SCH ×2 (09:26→21:46)
[2022-05-15] MEDS: ARGININE/GLUTAMINE/CALCIUM BMB 1 EACH POWD.PACK GT SCH ×2 (09:26→16:55)
[2022-05-15] MEDS: VITAMINS A AND D OINT 42 GM TUBE TP SCH ×3 (09:27)
[2022-05-15] MEDS: COD LIVER OIL/ZINC OXIDE OINT 113 GM TUBE TP SCH ×2 (09:27→21:48)
[2022-05-15] MEDS: REMEDY ESSENTIAL ZINC PASTE 113 GM TP SCH ×2 (09:27→21:49)
[2022-05-15] MEDS: JEVITY 1.2 1000 ML LIQUID GT PRN (16:58)
[2022-05-15 20:00] VITALS: TEMP 98
[2022-05-15] MEDS: MIRALAX 17 GM POWD.PACK GT SCH (21:47)
[2022-05-16] MEDS: BACLOFEN 10 MG TABLET GT SCH ×3 (05:59→21:40)
[2022-05-16] MEDS: OMEPRAZOLE 20 MG CAPSULE.DR GT SCH ×2 (05:59→21:40)
[2022-05-16] MEDS: IPRATROPIUM BROMIDE 0.5 MG/2.5 ML NEBU NEB SCH ×4 (07:15→19:46)
[2022-05-16] MEDS: HYDROGEN PEROXIDE 3% 118 ML BOTTLE TOP SCH ×2 (07:15→19:46)
[2022-05-16] MEDS: ALBUTEROL SULFATE 2.5 MG/3 ML NEBU NEB SCH ×4 (07:15→19:46)
[2022-05-16 07:28] VITALS: TEMP 97.3
[2022-05-16] MEDS: PROTEIN SUPPLEMENT (PROSTAT) 30 ML LIQUID GT SCH (08:00)
[2022-05-16] MEDS: CULTURELLE CAPSULE GT SCH ×2 (08:58→21:35)
[2022-05-16] MEDS: PHENYTOIN 100 MG/4 ML UDC GT SCH ×2 (08:58→21:35)
[2022-05-16] MEDS: PHENOBARBITAL 64.8 MG TABLET GT SCH ×2 (09:02→21:38)
[2022-05-16] MEDS: ASCORBIC ACID 500 MG TABLET GT SCH (09:04)
[2022-05-16] MEDS: CHOLECALCIFEROL 400 UNITS TABLET GT SCH ×2 (09:04→21:40)
[2022-05-16] MEDS: VITAMINS A AND D OINT 42 GM TUBE TP SCH ×3 (09:05)
[2022-05-16] MEDS: COD LIVER OIL/ZINC OXIDE OINT 113 GM TUBE TP SCH ×2 (09:05→21:40)
[2022-05-16] MEDS: REMEDY ESSENTIAL ZINC PASTE 113 GM TP SCH ×2 (09:05→21:40)
[2022-05-16] MEDS: ARGININE/GLUTAMINE/CALCIUM BMB 1 EACH POWD.PACK GT SCH ×2 (09:37→17:01)
[2022-05-16 20:00] VITALS: TEMP 97.8
[2022-05-16] MEDS: MIRALAX 17 GM POWD.PACK GT SCH (21:38)
[2022-05-17] MEDS: OMEPRAZOLE 20 MG CAPSULE.DR GT SCH ×2 (05:31→21:00)
[2022-05-17] MEDS: BACLOFEN 10 MG TABLET GT SCH ×3 (05:31→21:58)
[2022-05-17 07:48] VITALS: TEMP 97.6
[2022-05-17] MEDS: PROTEIN SUPPLEMENT (PROSTAT) 30 ML LIQUID GT SCH (08:00)
[2022-05-17] MEDS: ALBUTEROL SULFATE 2.5 MG/3 ML NEBU NEB SCH ×4 (08:21→19:19)
[2022-05-17] MEDS: IPRATROPIUM BROMIDE 0.5 MG/2.5 ML NEBU NEB SCH ×4 (08:21→19:19)
[2022-05-17] MEDS: CULTURELLE CAPSULE GT SCH ×2 (09:16→21:00)
[2022-05-17] MEDS: PHENYTOIN 100 MG/4 ML UDC GT SCH ×2 (09:17→21:00)
[2022-05-17] MEDS: ARGININE/GLUTAMINE/CALCIUM BMB 1 EACH POWD.PACK GT SCH ×2 (09:19→17:05)
[2022-05-17] MEDS: PHENOBARBITAL 64.8 MG TABLET GT SCH ×2 (09:19→21:00)
[2022-05-17] MEDS: REMEDY ESSENTIAL ZINC PASTE 113 GM TP SCH ×2 (09:20→21:58)
[2022-05-17] MEDS: COD LIVER OIL/ZINC OXIDE OINT 113 GM TUBE TP SCH ×2 (09:20→21:58)
[2022-05-17] MEDS: CHOLECALCIFEROL 400 UNITS TABLET GT SCH ×2 (09:20→21:00)
[2022-05-17] MEDS: VITAMINS A AND D OINT 42 GM TUBE TP SCH ×3 (09:20→09:21)
[2022-05-17] MEDS: ASCORBIC ACID 500 MG TABLET GT SCH (09:20)
[2022-05-17] MEDS: HYDROGEN PEROXIDE 3% 118 ML BOTTLE TOP SCH ×2 (09:35→19:19)
[2022-05-17 11:05] VITALS: O2SAT 98
[2022-05-17 19:57] VITALS: TEMP 96.4
[2022-05-17] MEDS: MIRALAX 17 GM POWD.PACK GT SCH (21:00)
[2022-05-17] MEDS: JEVITY 1.2 1000 ML LIQUID GT PRN (22:01)
[2022-05-18] MEDS: BACLOFEN 10 MG TABLET GT SCH ×3 (05:28→21:11)
[2022-05-18] MEDS: OMEPRAZOLE 20 MG CAPSULE.DR GT SCH ×2 (05:33→21:11)
[2022-05-18 07:51] VITALS: TEMP 97.6
[2022-05-18] MEDS: PROTEIN SUPPLEMENT (PROSTAT) 30 ML LIQUID GT SCH (08:00)
[2022-05-18] MEDS: IPRATROPIUM BROMIDE 0.5 MG/2.5 ML NEBU NEB SCH ×4 (08:03→19:11)
[2022-05-18] MEDS: ALBUTEROL SULFATE 2.5 MG/3 ML NEBU NEB SCH ×4 (08:03→19:11)
[2022-05-18] MEDS: HYDROGEN PEROXIDE 3% 118 ML BOTTLE TOP SCH ×2 (08:03→19:11)
[2022-05-18] MEDS: CULTURELLE CAPSULE GT SCH ×2 (09:50→20:05)
[2022-05-18] MEDS: PHENYTOIN 100 MG/4 ML UDC GT SCH ×2 (09:51→20:05)
[2022-05-18] MEDS: ARGININE/GLUTAMINE/CALCIUM BMB 1 EACH POWD.PACK GT SCH ×2 (09:52→17:30)
[2022-05-18] MEDS: PHENOBARBITAL 64.8 MG TABLET GT SCH ×2 (09:54→20:05)
[2022-05-18] MEDS: CHOLECALCIFEROL 400 UNITS TABLET GT SCH ×2 (09:55→20:06)
[2022-05-18] MEDS: ASCORBIC ACID 500 MG TABLET GT SCH (09:55)
[2022-05-18] MEDS: VITAMINS A AND D OINT 42 GM TUBE TP SCH ×3 (09:56)
[2022-05-18] MEDS: REMEDY ESSENTIAL ZINC PASTE 113 GM TP SCH ×2 (09:56→20:05)
[2022-05-18] MEDS: COD LIVER OIL/ZINC OXIDE OINT 113 GM TUBE TP SCH ×2 (09:56→20:05)
[2022-05-18 19:43] VITALS: TEMP 97.6
[2022-05-18] MEDS: MIRALAX 17 GM POWD.PACK GT SCH (20:06)
[2022-05-18] MEDS: JEVITY 1.2 1000 ML LIQUID GT PRN (22:32)
[2022-05-19] MEDS: BACLOFEN 10 MG TABLET GT SCH ×3 (05:26→22:50)
[2022-05-19] MEDS: OMEPRAZOLE 20 MG CAPSULE.DR GT SCH ×2 (05:27→21:00)
[2022-05-19] MEDS: IPRATROPIUM BROMIDE 0.5 MG/2.5 ML NEBU NEB SCH ×4 (07:22→19:12)
[2022-05-19] MEDS: ALBUTEROL SULFATE 2.5 MG/3 ML NEBU NEB SCH ×4 (07:22→19:12)
[2022-05-19 07:28] VITALS: TEMP 97.8
[2022-05-19] MEDS: HYDROGEN PEROXIDE 3% 118 ML BOTTLE TOP SCH ×2 (08:01→21:31)
[2022-05-19] MEDS: PROTEIN SUPPLEMENT (PROSTAT) 30 ML LIQUID GT SCH (08:19)
[2022-05-19] MEDS: CULTURELLE CAPSULE GT SCH ×2 (08:20→20:34)
[2022-05-19] MEDS: PHENYTOIN 100 MG/4 ML UDC GT SCH ×2 (08:20→20:23)
[2022-05-19] MEDS: ARGININE/GLUTAMINE/CALCIUM BMB 1 EACH POWD.PACK GT SCH ×2 (08:21→17:00)
[2022-05-19] MEDS: PHENOBARBITAL 64.8 MG TABLET GT SCH ×2 (08:21→20:24)
[2022-05-19] MEDS: ASCORBIC ACID 500 MG TABLET GT SCH (08:22)
[2022-05-19] MEDS: CHOLECALCIFEROL 400 UNITS TABLET GT SCH ×2 (08:22→20:25)
[2022-05-19] MEDS: REMEDY ESSENTIAL ZINC PASTE 113 GM TP SCH ×2 (08:23→20:25)
[2022-05-19] MEDS: COD LIVER OIL/ZINC OXIDE OINT 113 GM TUBE TP SCH ×2 (08:23→20:25)
[2022-05-19] MEDS: VITAMINS A AND D OINT 42 GM TUBE TP SCH ×3 (08:23)
[2022-05-19] MEDS: JEVITY 1.2 1000 ML LIQUID GT PRN (18:08)
[2022-05-19 20:10] VITALS: TEMP 97.5
[2022-05-19] MEDS: MIRALAX 17 GM POWD.PACK GT SCH (20:24)
[2022-05-20] MEDS: BACLOFEN 10 MG TABLET GT SCH ×3 (06:21→22:13)
[2022-05-20] MEDS: OMEPRAZOLE 20 MG CAPSULE.DR GT SCH ×2 (06:21→20:12)
[2022-05-20] MEDS: IPRATROPIUM BROMIDE 0.5 MG/2.5 ML NEBU NEB SCH ×4 (07:22→19:14)
[2022-05-20] MEDS: ALBUTEROL SULFATE 2.5 MG/3 ML NEBU NEB SCH ×4 (07:22→19:14)
[2022-05-20 07:25] VITALS: TEMP 97.6
[2022-05-20] MEDS: PROTEIN SUPPLEMENT (PROSTAT) 30 ML LIQUID GT SCH (08:00)
[2022-05-20] MEDS: HYDROGEN PEROXIDE 3% 118 ML BOTTLE TOP SCH ×2 (09:00→19:14)
[2022-05-20] MEDS: CULTURELLE CAPSULE GT SCH ×2 (09:17→21:15)
[2022-05-20] MEDS: PHENYTOIN 100 MG/4 ML UDC GT SCH ×2 (09:19→20:12)
[2022-05-20] MEDS: ARGININE/GLUTAMINE/CALCIUM BMB 1 EACH POWD.PACK GT SCH ×2 (09:20→17:00)
[2022-05-20] MEDS: PHENOBARBITAL 64.8 MG TABLET GT SCH ×2 (09:21→20:15)
[2022-05-20] MEDS: REMEDY ESSENTIAL ZINC PASTE 113 GM TP SCH ×2 (09:22→20:15)
[2022-05-20] MEDS: ASCORBIC ACID 500 MG TABLET GT SCH (09:22)
[2022-05-20] MEDS: CHOLECALCIFEROL 400 UNITS TABLET GT SCH ×2 (09:22→20:12)
[2022-05-20] MEDS: COD LIVER OIL/ZINC OXIDE OINT 113 GM TUBE TP SCH ×2 (09:22→20:15)
[2022-05-20] MEDS: VITAMINS A AND D OINT 42 GM TUBE TP SCH ×3 (09:23)
[2022-05-20 20:00] VITALS: TEMP 98.1
[2022-05-20] MEDS: MIRALAX 17 GM POWD.PACK GT SCH (20:12)
[2022-05-20 22:00] VITALS: TEMP 98.1
[2022-05-21] MEDS: BACLOFEN 10 MG TABLET GT SCH ×3 (06:31→22:23)
[2022-05-21] MEDS: OMEPRAZOLE 20 MG CAPSULE.DR GT SCH ×2 (06:31→20:57)
[2022-05-21 07:20] VITALS: TEMP 97.8
[2022-05-21] MEDS: HYDROGEN PEROXIDE 3% 118 ML BOTTLE TOP SCH ×2 (07:31→20:01)
[2022-05-21] MEDS: ALBUTEROL SULFATE 2.5 MG/3 ML NEBU NEB SCH ×4 (07:31→20:01)
[2022-05-21] MEDS: IPRATROPIUM BROMIDE 0.5 MG/2.5 ML NEBU NEB SCH ×4 (07:31→20:01)
[2022-05-21] MEDS: PROTEIN SUPPLEMENT (PROSTAT) 30 ML LIQUID GT SCH (08:00)
[2022-05-21] MEDS: PHENOBARBITAL 64.8 MG TABLET GT SCH ×2 (09:12→20:57)
[2022-05-21] MEDS: PHENYTOIN 100 MG/4 ML UDC GT SCH ×2 (09:12→20:57)
[2022-05-21] MEDS: ASCORBIC ACID 500 MG TABLET GT SCH (09:15)
[2022-05-21] MEDS: CULTURELLE CAPSULE GT SCH ×2 (09:15→20:57)
[2022-05-21] MEDS: COD LIVER OIL/ZINC OXIDE OINT 113 GM TUBE TP SCH ×2 (09:15→20:58)
[2022-05-21] MEDS: CHOLECALCIFEROL 400 UNITS TABLET GT SCH ×2 (09:15→20:57)
[2022-05-21] MEDS: ARGININE/GLUTAMINE/CALCIUM BMB 1 EACH POWD.PACK GT SCH ×2 (09:17→16:24)
[2022-05-21] MEDS: VITAMINS A AND D OINT 42 GM TUBE TP SCH ×3 (09:17→09:18)
[2022-05-21] MEDS: REMEDY ESSENTIAL ZINC PASTE 113 GM TP SCH ×2 (09:17→20:58)
[2022-05-21 20:00] VITALS: TEMP 98
[2022-05-21] MEDS: MIRALAX 17 GM POWD.PACK GT SCH (20:57)
[2022-05-22] MEDS: OMEPRAZOLE 20 MG CAPSULE.DR GT SCH ×2 (05:39→20:52)
[2022-05-22] MEDS: BACLOFEN 10 MG TABLET GT SCH ×3 (05:39→22:57)
[2022-05-22] MEDS: IPRATROPIUM BROMIDE 0.5 MG/2.5 ML NEBU NEB SCH ×4 (07:22→19:12)
[2022-05-22] MEDS: HYDROGEN PEROXIDE 3% 118 ML BOTTLE TOP SCH ×2 (07:22→19:12)
[2022-05-22] MEDS: ALBUTEROL SULFATE 2.5 MG/3 ML NEBU NEB SCH ×4 (07:22→19:12)
[2022-05-22] MEDS: PROTEIN SUPPLEMENT (PROSTAT) 30 ML LIQUID GT SCH (08:00)
[2022-05-22 08:04] VITALS: TEMP 98.3
[2022-05-22] MEDS: PHENYTOIN 100 MG/4 ML UDC GT SCH ×2 (09:46→20:52)
[2022-05-22] MEDS: ARGININE/GLUTAMINE/CALCIUM BMB 1 EACH POWD.PACK GT SCH ×2 (09:46→17:13)
[2022-05-22] MEDS: CULTURELLE CAPSULE GT SCH ×2 (09:46→20:52)
[2022-05-22] MEDS: PHENOBARBITAL 64.8 MG TABLET GT SCH ×2 (09:47→20:52)
[2022-05-22] MEDS: ASCORBIC ACID 500 MG TABLET GT SCH (09:48)
[2022-05-22] MEDS: CHOLECALCIFEROL 400 UNITS TABLET GT SCH ×2 (09:49→20:52)
[2022-05-22] MEDS: VITAMINS A AND D OINT 42 GM TUBE TP SCH ×3 (09:49)
[2022-05-22] MEDS: COD LIVER OIL/ZINC OXIDE OINT 113 GM TUBE TP SCH ×2 (09:49→20:52)
[2022-05-22] MEDS: REMEDY ESSENTIAL ZINC PASTE 113 GM TP SCH ×2 (09:49→20:53)
[2022-05-22 20:30] VITALS: TEMP 97.4
[2022-05-22] MEDS: MIRALAX 17 GM POWD.PACK GT SCH (20:52)
[2022-05-23] MEDS: OMEPRAZOLE 20 MG CAPSULE.DR GT SCH ×2 (05:17→21:34)
[2022-05-23] MEDS: BACLOFEN 10 MG TABLET GT SCH ×3 (05:17→21:34)
[2022-05-23] MEDS: ALBUTEROL SULFATE 2.5 MG/3 ML NEBU NEB SCH ×4 (07:01→20:00)
[2022-05-23] MEDS: IPRATROPIUM BROMIDE 0.5 MG/2.5 ML NEBU NEB SCH ×4 (07:01→20:00)
[2022-05-23 07:49] VITALS: TEMP 97.5
[2022-05-23] MEDS: PROTEIN SUPPLEMENT (PROSTAT) 30 ML LIQUID GT SCH (08:00)
[2022-05-23] MEDS: HYDROGEN PEROXIDE 3% 118 ML BOTTLE TOP SCH ×2 (08:37→20:00)
[2022-05-23] MEDS: ASCORBIC ACID 500 MG TABLET GT SCH (09:00)
[2022-05-23] MEDS: PHENYTOIN 100 MG/4 ML UDC GT SCH ×2 (09:00→21:34)
[2022-05-23] MEDS: CHOLECALCIFEROL 400 UNITS TABLET GT SCH ×2 (09:00→21:34)
[2022-05-23] MEDS: REMEDY ESSENTIAL ZINC PASTE 113 GM TP SCH ×2 (09:00→21:34)
[2022-05-23] MEDS: COD LIVER OIL/ZINC OXIDE OINT 113 GM TUBE TP SCH ×2 (09:00→21:34)
[2022-05-23] MEDS: VITAMINS A AND D OINT 42 GM TUBE TP SCH ×3 (09:00)
[2022-05-23] MEDS: PHENOBARBITAL 64.8 MG TABLET GT SCH ×2 (09:00→21:34)
[2022-05-23] MEDS: ARGININE/GLUTAMINE/CALCIUM BMB 1 EACH POWD.PACK GT SCH ×2 (09:00→16:52)
[2022-05-23] MEDS: CULTURELLE CAPSULE GT SCH ×2 (09:00→21:34)
[2022-05-23 19:55] VITALS: TEMP 97.6
[2022-05-23] MEDS: MIRALAX 17 GM POWD.PACK GT SCH (21:34)
[2022-05-24] MEDS: JEVITY 1.2 1000 ML LIQUID GT PRN (02:51)
[2022-05-24] MEDS: OMEPRAZOLE 20 MG CAPSULE.DR GT SCH ×2 (05:31→21:36)
[2022-05-24] MEDS: BACLOFEN 10 MG TABLET GT SCH ×3 (05:31→21:36)
[2022-05-24] MEDS: IPRATROPIUM BROMIDE 0.5 MG/2.5 ML NEBU NEB SCH ×4 (06:01→20:03)
[2022-05-24] MEDS: ALBUTEROL SULFATE 2.5 MG/3 ML NEBU NEB SCH ×4 (06:01→20:03)
[2022-05-24 07:48] VITALS: TEMP 97.4
[2022-05-24] MEDS: PROTEIN SUPPLEMENT (PROSTAT) 30 ML LIQUID GT SCH (08:00)
[2022-05-24] MEDS: HYDROGEN PEROXIDE 3% 118 ML BOTTLE TOP SCH ×2 (08:01→20:03)
[2022-05-24] MEDS: CULTURELLE CAPSULE GT SCH ×2 (09:04→21:36)
[2022-05-24] MEDS: PHENYTOIN 100 MG/4 ML UDC GT SCH ×2 (09:07→21:36)
[2022-05-24] MEDS: PHENOBARBITAL 64.8 MG TABLET GT SCH ×2 (09:08→21:36)
[2022-05-24] MEDS: ARGININE/GLUTAMINE/CALCIUM BMB 1 EACH POWD.PACK GT SCH ×2 (09:08→16:28)
[2022-05-24] MEDS: ASCORBIC ACID 500 MG TABLET GT SCH (09:09)
[2022-05-24] MEDS: REMEDY ESSENTIAL ZINC PASTE 113 GM TP SCH ×2 (09:10→21:36)
[2022-05-24] MEDS: VITAMINS A AND D OINT 42 GM TUBE TP SCH ×3 (09:10)
[2022-05-24] MEDS: COD LIVER OIL/ZINC OXIDE OINT 113 GM TUBE TP SCH ×2 (09:10→21:36)
[2022-05-24] MEDS: CHOLECALCIFEROL 400 UNITS TABLET GT SCH ×2 (09:10→21:36)
[2022-05-24 20:13] VITALS: TEMP 97.9
[2022-05-24] MEDS: MIRALAX 17 GM POWD.PACK GT SCH (21:36)
[2022-05-25] MEDS: BACLOFEN 10 MG TABLET GT SCH ×3 (05:12→21:28)
[2022-05-25] MEDS: OMEPRAZOLE 20 MG CAPSULE.DR GT SCH ×2 (05:38→21:28)
[2022-05-25 07:37] VITALS: TEMP 98.3
[2022-05-25] MEDS: PROTEIN SUPPLEMENT (PROSTAT) 30 ML LIQUID GT SCH (08:00)
[2022-05-25] MEDS: ALBUTEROL SULFATE 2.5 MG/3 ML NEBU NEB SCH ×4 (08:02→19:58)
[2022-05-25] MEDS: IPRATROPIUM BROMIDE 0.5 MG/2.5 ML NEBU NEB SCH ×4 (08:02→19:58)
[2022-05-25] MEDS: CULTURELLE CAPSULE GT SCH ×2 (09:34→21:28)
[2022-05-25] MEDS: ASCORBIC ACID 500 MG TABLET GT SCH (09:34)
[2022-05-25] MEDS: PHENYTOIN 100 MG/4 ML UDC GT SCH ×2 (09:34→21:28)
[2022-05-25] MEDS: CHOLECALCIFEROL 400 UNITS TABLET GT SCH ×2 (09:34→21:28)
[2022-05-25] MEDS: ARGININE/GLUTAMINE/CALCIUM BMB 1 EACH POWD.PACK GT SCH ×2 (09:34→17:58)
[2022-05-25] MEDS: PHENOBARBITAL 64.8 MG TABLET GT SCH ×2 (09:34→21:28)
[2022-05-25] MEDS: VITAMINS A AND D OINT 42 GM TUBE TP SCH ×3 (09:35)
[2022-05-25] MEDS: REMEDY ESSENTIAL ZINC PASTE 113 GM TP SCH ×2 (09:35→21:28)
[2022-05-25] MEDS: COD LIVER OIL/ZINC OXIDE OINT 113 GM TUBE TP SCH ×2 (09:35→21:28)
[2022-05-25] MEDS: HYDROGEN PEROXIDE 3% 118 ML BOTTLE TOP SCH ×2 (09:36→19:58)
[2022-05-25 20:16] VITALS: TEMP 98
[2022-05-25] MEDS: MIRALAX 17 GM POWD.PACK GT SCH (21:28)
[2022-05-26] MEDS: BACLOFEN 10 MG TABLET GT SCH ×3 (05:40→22:27)
[2022-05-26] MEDS: OMEPRAZOLE 20 MG CAPSULE.DR GT SCH ×2 (05:40→20:15)
[2022-05-26] MEDS: IPRATROPIUM BROMIDE 0.5 MG/2.5 ML NEBU NEB SCH ×4 (07:11→19:46)
[2022-05-26] MEDS: ALBUTEROL SULFATE 2.5 MG/3 ML NEBU NEB SCH ×4 (07:11→19:46)
[2022-05-26] MEDS: HYDROGEN PEROXIDE 3% 118 ML BOTTLE TOP SCH ×2 (07:11→19:46)
[2022-05-26 07:34] VITALS: TEMP 98.1
[2022-05-26] MEDS: PROTEIN SUPPLEMENT (PROSTAT) 30 ML LIQUID GT SCH (08:19)
[2022-05-26] MEDS: ARGININE/GLUTAMINE/CALCIUM BMB 1 EACH POWD.PACK GT SCH ×2 (08:20→17:06)
[2022-05-26] MEDS: PHENOBARBITAL 64.8 MG TABLET GT SCH ×2 (08:20→20:15)
[2022-05-26] MEDS: CULTURELLE CAPSULE GT SCH ×2 (08:20→20:14)
[2022-05-26] MEDS: PHENYTOIN 100 MG/4 ML UDC GT SCH ×2 (08:20→20:14)
[2022-05-26] MEDS: ASCORBIC ACID 500 MG TABLET GT SCH (08:21)
[2022-05-26] MEDS: CHOLECALCIFEROL 400 UNITS TABLET GT SCH ×2 (08:21→20:17)
[2022-05-26] MEDS: VITAMINS A AND D OINT 42 GM TUBE TP SCH ×3 (08:21→08:22)
[2022-05-26] MEDS: COD LIVER OIL/ZINC OXIDE OINT 113 GM TUBE TP SCH ×2 (08:21→20:17)
[2022-05-26] MEDS: REMEDY ESSENTIAL ZINC PASTE 113 GM TP SCH ×2 (08:21→20:17)
[2022-05-26] MEDS: MIRALAX 17 GM POWD.PACK GT SCH (20:15)
[2022-05-26 20:23] VITALS: TEMP 98.3
[2022-05-27] MEDS: BACLOFEN 10 MG TABLET GT SCH ×3 (05:11→22:09)
[2022-05-27] MEDS: OMEPRAZOLE 20 MG CAPSULE.DR GT SCH ×2 (05:42→21:00)
[2022-05-27 07:20] VITALS: TEMP 97.7
[2022-05-27] MEDS: IPRATROPIUM BROMIDE 0.5 MG/2.5 ML NEBU NEB SCH ×4 (07:24→19:18)
[2022-05-27] MEDS: ALBUTEROL SULFATE 2.5 MG/3 ML NEBU NEB SCH ×4 (07:24→19:18)
[2022-05-27] MEDS: CULTURELLE CAPSULE GT SCH ×2 (08:12→21:00)
[2022-05-27] MEDS: PROTEIN SUPPLEMENT (PROSTAT) 30 ML LIQUID GT SCH (08:12)
[2022-05-27] MEDS: PHENYTOIN 100 MG/4 ML UDC GT SCH ×2 (08:13→21:00)
[2022-05-27] MEDS: ARGININE/GLUTAMINE/CALCIUM BMB 1 EACH POWD.PACK GT SCH ×2 (08:13→16:46)
[2022-05-27] MEDS: CHOLECALCIFEROL 400 UNITS TABLET GT SCH ×2 (08:14→21:00)
[2022-05-27] MEDS: ASCORBIC ACID 500 MG TABLET GT SCH (08:14)
[2022-05-27] MEDS: PHENOBARBITAL 64.8 MG TABLET GT SCH ×2 (08:14→21:00)
[2022-05-27] MEDS: REMEDY ESSENTIAL ZINC PASTE 113 GM TP SCH ×2 (08:15→21:00)
[2022-05-27] MEDS: COD LIVER OIL/ZINC OXIDE OINT 113 GM TUBE TP SCH ×2 (08:15→21:00)
[2022-05-27] MEDS: VITAMINS A AND D OINT 42 GM TUBE TP SCH ×3 (08:15)
[2022-05-27] MEDS: HYDROGEN PEROXIDE 3% 118 ML BOTTLE TOP SCH ×2 (08:16→21:00)
[2022-05-27] MEDS: JEVITY 1.2 1000 ML LIQUID GT PRN (17:50)
[2022-05-27 19:55] VITALS: TEMP 98.7
[2022-05-27] MEDS: MIRALAX 17 GM POWD.PACK GT SCH (21:00)
[2022-05-28] MEDS: BACLOFEN 10 MG TABLET GT SCH ×3 (05:47→21:35)
[2022-05-28] MEDS: OMEPRAZOLE 20 MG CAPSULE.DR GT SCH ×2 (05:47→21:34)
[2022-05-28 07:18] VITALS: TEMP 97.5
[2022-05-28] MEDS: PHENYTOIN 100 MG/4 ML UDC GT SCH ×2 (08:22→21:31)
[2022-05-28] MEDS: CULTURELLE CAPSULE GT SCH ×2 (08:22→21:29)
[2022-05-28] MEDS: PROTEIN SUPPLEMENT (PROSTAT) 30 ML LIQUID GT SCH (08:22)
[2022-05-28] MEDS: PHENOBARBITAL 64.8 MG TABLET GT SCH ×2 (08:22→21:32)
[2022-05-28] MEDS: ARGININE/GLUTAMINE/CALCIUM BMB 1 EACH POWD.PACK GT SCH ×2 (08:23→16:59)
[2022-05-28] MEDS: CHOLECALCIFEROL 400 UNITS TABLET GT SCH ×2 (08:24→21:34)
[2022-05-28] MEDS: ASCORBIC ACID 500 MG TABLET GT SCH (08:24)
[2022-05-28] MEDS: IPRATROPIUM BROMIDE 0.5 MG/2.5 ML NEBU NEB SCH ×4 (08:25→19:19)
[2022-05-28] MEDS: HYDROGEN PEROXIDE 3% 118 ML BOTTLE TOP SCH ×2 (08:25→19:19)
[2022-05-28] MEDS: ALBUTEROL SULFATE 2.5 MG/3 ML NEBU NEB SCH ×4 (08:25→19:19)
[2022-05-28] MEDS: COD LIVER OIL/ZINC OXIDE OINT 113 GM TUBE TP SCH ×2 (09:12→21:35)
[2022-05-28] MEDS: VITAMINS A AND D OINT 42 GM TUBE TP SCH ×3 (09:12)
[2022-05-28] MEDS: REMEDY ESSENTIAL ZINC PASTE 113 GM TP SCH ×2 (09:12→21:35)
[2022-05-28] MEDS: JEVITY 1.2 1000 ML LIQUID GT PRN (18:03)
[2022-05-28 19:49] VITALS: TEMP 98
[2022-05-28] MEDS: MIRALAX 17 GM POWD.PACK GT SCH (21:34)
[2022-05-29] MEDS: BACLOFEN 10 MG TABLET GT SCH ×3 (05:56→21:21)
[2022-05-29] MEDS: OMEPRAZOLE 20 MG CAPSULE.DR GT SCH ×2 (05:56→21:21)
[2022-05-29] MEDS: IPRATROPIUM BROMIDE 0.5 MG/2.5 ML NEBU NEB SCH ×4 (07:11→19:37)
[2022-05-29] MEDS: ALBUTEROL SULFATE 2.5 MG/3 ML NEBU NEB SCH ×4 (07:12→19:37)
[2022-05-29 07:20] VITALS: TEMP 97.4
[2022-05-29] MEDS: CULTURELLE CAPSULE GT SCH ×2 (08:37→21:20)
[2022-05-29] MEDS: PROTEIN SUPPLEMENT (PROSTAT) 30 ML LIQUID GT SCH (08:37)
[2022-05-29] MEDS: ARGININE/GLUTAMINE/CALCIUM BMB 1 EACH POWD.PACK GT SCH ×2 (08:38→16:42)
[2022-05-29] MEDS: PHENOBARBITAL 64.8 MG TABLET GT SCH ×2 (08:41→21:21)
[2022-05-29] MEDS: CHOLECALCIFEROL 400 UNITS TABLET GT SCH ×2 (08:42→21:21)
[2022-05-29] MEDS: PHENYTOIN 100 MG/4 ML UDC GT SCH ×2 (08:42→21:21)
[2022-05-29] MEDS: ASCORBIC ACID 500 MG TABLET GT SCH (08:42)
[2022-05-29] MEDS: COD LIVER OIL/ZINC OXIDE OINT 113 GM TUBE TP SCH ×2 (08:48→21:21)
[2022-05-29] MEDS: REMEDY ESSENTIAL ZINC PASTE 113 GM TP SCH ×2 (08:48→21:21)
[2022-05-29] MEDS: VITAMINS A AND D OINT 42 GM TUBE TP SCH ×3 (08:48)
[2022-05-29] MEDS: HYDROGEN PEROXIDE 3% 118 ML BOTTLE TOP SCH ×2 (09:14→19:38)
[2022-05-29 20:50] VITALS: TEMP 97.9
[2022-05-29] MEDS: MIRALAX 17 GM POWD.PACK GT SCH (21:21)
[2022-05-30] MEDS: BACLOFEN 10 MG TABLET GT SCH ×3 (05:52→21:44)
[2022-05-30] MEDS: OMEPRAZOLE 20 MG CAPSULE.DR GT SCH ×2 (05:52→21:43)
[2022-05-30] MEDS: IPRATROPIUM BROMIDE 0.5 MG/2.5 ML NEBU NEB SCH ×4 (07:14→19:17)
[2022-05-30] MEDS: HYDROGEN PEROXIDE 3% 118 ML BOTTLE TOP SCH ×2 (07:14→19:17)
[2022-05-30] MEDS: ALBUTEROL SULFATE 2.5 MG/3 ML NEBU NEB SCH ×4 (07:14→19:17)
[2022-05-30 07:48] VITALS: TEMP 97.5
[2022-05-30] MEDS: PROTEIN SUPPLEMENT (PROSTAT) 30 ML LIQUID GT SCH (08:15)
[2022-05-30] MEDS: PHENOBARBITAL 64.8 MG TABLET GT SCH ×2 (08:18→21:42)
[2022-05-30] MEDS: PHENYTOIN 100 MG/4 ML UDC GT SCH ×2 (08:18→21:41)
[2022-05-30] MEDS: CULTURELLE CAPSULE GT SCH ×2 (08:18→21:33)
[2022-05-30] MEDS: ARGININE/GLUTAMINE/CALCIUM BMB 1 EACH POWD.PACK GT SCH ×2 (08:18→16:17)
[2022-05-30] MEDS: COD LIVER OIL/ZINC OXIDE OINT 113 GM TUBE TP SCH ×2 (08:20→21:44)
[2022-05-30] MEDS: VITAMINS A AND D OINT 42 GM TUBE TP SCH ×3 (08:20→08:21)
[2022-05-30] MEDS: REMEDY ESSENTIAL ZINC PASTE 113 GM TP SCH ×2 (08:20→21:44)
[2022-05-30] MEDS: CHOLECALCIFEROL 400 UNITS TABLET GT SCH ×2 (08:20→21:44)
[2022-05-30] MEDS: ASCORBIC ACID 500 MG TABLET GT SCH (08:21)
[2022-05-30] MEDS: JEVITY 1.2 1000 ML LIQUID GT PRN (13:00)
[2022-05-30 19:53] VITALS: TEMP 97.9
[2022-05-30] MEDS: MIRALAX 17 GM POWD.PACK GT SCH (21:43)
[2022-05-31] MEDS: BACLOFEN 10 MG TABLET GT SCH ×3 (05:45→22:00)
[2022-05-31] MEDS: OMEPRAZOLE 20 MG CAPSULE.DR GT SCH ×2 (05:45→20:25)
[2022-05-31] MEDS: ALBUTEROL SULFATE 2.5 MG/3 ML NEBU NEB SCH ×4 (07:31→19:06)
[2022-05-31] MEDS: IPRATROPIUM BROMIDE 0.5 MG/2.5 ML NEBU NEB SCH ×4 (07:31→19:06)
[2022-05-31] MEDS: HYDROGEN PEROXIDE 3% 118 ML BOTTLE TOP SCH ×2 (07:31→21:03)
[2022-05-31 07:42] VITALS: TEMP 97.4
[2022-05-31] MEDS: PROTEIN SUPPLEMENT (PROSTAT) 30 ML LIQUID GT SCH (08:13)
[2022-05-31] MEDS: CULTURELLE CAPSULE GT SCH ×2 (08:14→20:19)
[2022-05-31] MEDS: PHENYTOIN 100 MG/4 ML UDC GT SCH ×2 (08:15→20:21)
[2022-05-31] MEDS: ARGININE/GLUTAMINE/CALCIUM BMB 1 EACH POWD.PACK GT SCH ×2 (08:15→16:26)
[2022-05-31] MEDS: REMEDY ESSENTIAL ZINC PASTE 113 GM TP SCH ×2 (08:17→20:26)
[2022-05-31] MEDS: PHENOBARBITAL 64.8 MG TABLET GT SCH ×2 (08:17→20:24)
[2022-05-31] MEDS: ASCORBIC ACID 500 MG TABLET GT SCH (08:17)
[2022-05-31] MEDS: CHOLECALCIFEROL 400 UNITS TABLET GT SCH ×2 (08:17→20:26)
[2022-05-31] MEDS: VITAMINS A AND D OINT 42 GM TUBE TP SCH ×3 (08:17→08:18)
[2022-05-31] MEDS: COD LIVER OIL/ZINC OXIDE OINT 113 GM TUBE TP SCH ×2 (08:17→20:26)
[2022-05-31 19:48] VITALS: TEMP 97.8
[2022-05-31] MEDS: MIRALAX 17 GM POWD.PACK GT SCH (20:24)
[2022-06-01] MEDS: OMEPRAZOLE 20 MG CAPSULE.DR GT SCH ×2 (05:47→20:03)
[2022-06-01] MEDS: BACLOFEN 10 MG TABLET GT SCH ×3 (05:47→22:10)
[2022-06-01] MEDS: IPRATROPIUM BROMIDE 0.5 MG/2.5 ML NEBU NEB SCH ×4 (07:15→19:03)
[2022-06-01] MEDS: ALBUTEROL SULFATE 2.5 MG/3 ML NEBU NEB SCH ×4 (07:15→19:03)
[2022-06-01 07:29] VITALS: TEMP 97.4
[2022-06-01] MEDS: HYDROGEN PEROXIDE 3% 118 ML BOTTLE TOP SCH ×2 (08:33→21:02)
[2022-06-01] MEDS: CULTURELLE CAPSULE GT SCH ×2 (08:40→20:02)
[2022-06-01] MEDS: PROTEIN SUPPLEMENT (PROSTAT) 30 ML LIQUID GT SCH (08:40)
[2022-06-01] MEDS: PHENYTOIN 100 MG/4 ML UDC GT SCH ×2 (08:41→20:03)
[2022-06-01] MEDS: ARGININE/GLUTAMINE/CALCIUM BMB 1 EACH POWD.PACK GT SCH ×2 (08:42→16:18)
[2022-06-01] MEDS: PHENOBARBITAL 64.8 MG TABLET GT SCH ×2 (08:42→20:03)
[2022-06-01] MEDS: CHOLECALCIFEROL 400 UNITS TABLET GT SCH ×2 (08:42→20:04)
[2022-06-01] MEDS: ASCORBIC ACID 500 MG TABLET GT SCH (08:42)
[2022-06-01] MEDS: COD LIVER OIL/ZINC OXIDE OINT 113 GM TUBE TP SCH ×2 (08:43→20:04)
[2022-06-01] MEDS: VITAMINS A AND D OINT 42 GM TUBE TP SCH ×3 (08:43)
[2022-06-01] MEDS: REMEDY ESSENTIAL ZINC PASTE 113 GM TP SCH ×2 (08:43→20:04)
[2022-06-01] MEDS: JEVITY 1.2 1000 ML LIQUID GT PRN (16:18)
[2022-06-01 20:00] VITALS: TEMP 98.6
[2022-06-01] MEDS: MIRALAX 17 GM POWD.PACK GT SCH (20:03)
[2022-06-02] MEDS: BACLOFEN 10 MG TABLET GT SCH ×3 (05:34→21:05)
[2022-06-02] MEDS: OMEPRAZOLE 20 MG CAPSULE.DR GT SCH ×2 (05:34→21:05)
[2022-06-02] MEDS: ALBUTEROL SULFATE 2.5 MG/3 ML NEBU NEB SCH ×4 (07:11→19:52)
[2022-06-02] MEDS: IPRATROPIUM BROMIDE 0.5 MG/2.5 ML NEBU NEB SCH ×4 (07:11→19:52)
[2022-06-02 07:26] VITALS: TEMP 98.5
[2022-06-02] MEDS: HYDROGEN PEROXIDE 3% 118 ML BOTTLE TOP SCH ×2 (08:19→19:52)
[2022-06-02] MEDS: CULTURELLE CAPSULE GT SCH ×2 (08:32→21:05)
[2022-06-02] MEDS: PROTEIN SUPPLEMENT (PROSTAT) 30 ML LIQUID GT SCH (08:32)
[2022-06-02] MEDS: COD LIVER OIL/ZINC OXIDE OINT 113 GM TUBE TP SCH ×2 (08:33→21:05)
[2022-06-02] MEDS: REMEDY ESSENTIAL ZINC PASTE 113 GM TP SCH ×2 (08:33→21:05)
[2022-06-02] MEDS: VITAMINS A AND D OINT 42 GM TUBE TP SCH ×3 (08:33)
[2022-06-02] MEDS: CHOLECALCIFEROL 400 UNITS TABLET GT SCH ×2 (08:33→21:05)
[2022-06-02] MEDS: PHENYTOIN 100 MG/4 ML UDC GT SCH ×2 (08:33→21:05)
[2022-06-02] MEDS: ARGININE/GLUTAMINE/CALCIUM BMB 1 EACH POWD.PACK GT SCH ×2 (08:33→17:09)
[2022-06-02] MEDS: ASCORBIC ACID 500 MG TABLET GT SCH (08:33)
[2022-06-02] MEDS: PHENOBARBITAL 64.8 MG TABLET GT SCH ×2 (08:33→21:05)
[2022-06-02 20:00] VITALS: BP 127/78; TEMP 98.4; O2SAT 100
[2022-06-02 20:29] VITALS: TEMP 98.4
[2022-06-02] MEDS: MIRALAX 17 GM POWD.PACK GT SCH (21:05)
[2022-06-03] MEDS: OMEPRAZOLE 20 MG CAPSULE.DR GT SCH ×2 (05:34→21:16)
[2022-06-03] MEDS: BACLOFEN 10 MG TABLET GT SCH ×3 (05:34→21:17)
[2022-06-03 07:20] VITALS: TEMP 97.4
[2022-06-03] MEDS: IPRATROPIUM BROMIDE 0.5 MG/2.5 ML NEBU NEB SCH ×4 (07:32→19:59)
[2022-06-03] MEDS: ALBUTEROL SULFATE 2.5 MG/3 ML NEBU NEB SCH ×4 (07:32→19:59)
[2022-06-03] MEDS: HYDROGEN PEROXIDE 3% 118 ML BOTTLE TOP SCH ×2 (08:39→20:00)
[2022-06-03] MEDS: VITAMINS A AND D OINT 42 GM TUBE TP SCH ×3 (08:42)
[2022-06-03] MEDS: PHENOBARBITAL 64.8 MG TABLET GT SCH ×2 (08:42→21:16)
[2022-06-03] MEDS: REMEDY ESSENTIAL ZINC PASTE 113 GM TP SCH ×2 (08:42→21:17)
[2022-06-03] MEDS: PHENYTOIN 100 MG/4 ML UDC GT SCH ×2 (08:42→21:16)
[2022-06-03] MEDS: PROTEIN SUPPLEMENT (PROSTAT) 30 ML LIQUID GT SCH (08:42)
[2022-06-03] MEDS: COD LIVER OIL/ZINC OXIDE OINT 113 GM TUBE TP SCH ×2 (08:42→21:17)
[2022-06-03] MEDS: ASCORBIC ACID 500 MG TABLET GT SCH (08:42)
[2022-06-03] MEDS: CULTURELLE CAPSULE GT SCH ×2 (08:42→21:16)
[2022-06-03] MEDS: CHOLECALCIFEROL 400 UNITS TABLET GT SCH ×2 (08:42→21:17)
[2022-06-03] MEDS: ARGININE/GLUTAMINE/CALCIUM BMB 1 EACH POWD.PACK GT SCH ×2 (08:42→17:31)
[2022-06-03 20:21] VITALS: TEMP 98.2
[2022-06-03] MEDS: MIRALAX 17 GM POWD.PACK GT SCH (21:16)
[2022-06-04] MEDS: JEVITY 1.2 1000 ML LIQUID GT PRN (03:19)
[2022-06-04] MEDS: OMEPRAZOLE 20 MG CAPSULE.DR GT SCH ×2 (05:33→21:37)
[2022-06-04] MEDS: BACLOFEN 10 MG TABLET GT SCH ×3 (05:33→21:40)
[2022-06-04 07:27] VITALS: TEMP 97.6
[2022-06-04] MEDS: ALBUTEROL SULFATE 2.5 MG/3 ML NEBU NEB SCH ×4 (08:04→19:10)
[2022-06-04] MEDS: IPRATROPIUM BROMIDE 0.5 MG/2.5 ML NEBU NEB SCH ×4 (08:04→19:10)
[2022-06-04] MEDS: HYDROGEN PEROXIDE 3% 118 ML BOTTLE TOP SCH ×2 (08:04→19:10)
[2022-06-04] MEDS: PROTEIN SUPPLEMENT (PROSTAT) 30 ML LIQUID GT SCH (08:09)
[2022-06-04] MEDS: ARGININE/GLUTAMINE/CALCIUM BMB 1 EACH POWD.PACK GT SCH ×2 (08:10→17:05)
[2022-06-04] MEDS: CHOLECALCIFEROL 400 UNITS TABLET GT SCH ×2 (08:10→21:37)
[2022-06-04] MEDS: PHENOBARBITAL 64.8 MG TABLET GT SCH ×2 (08:10→21:35)
[2022-06-04] MEDS: ASCORBIC ACID 500 MG TABLET GT SCH (08:10)
[2022-06-04] MEDS: PHENYTOIN 100 MG/4 ML UDC GT SCH ×2 (08:10→21:34)
[2022-06-04] MEDS: CULTURELLE CAPSULE GT SCH ×2 (08:10→21:32)
[2022-06-04] MEDS: REMEDY ESSENTIAL ZINC PASTE 113 GM TP SCH ×2 (08:11→21:40)
[2022-06-04] MEDS: COD LIVER OIL/ZINC OXIDE OINT 113 GM TUBE TP SCH ×2 (08:11→21:40)
[2022-06-04] MEDS: VITAMINS A AND D OINT 42 GM TUBE TP SCH ×3 (08:11)
[2022-06-04 19:57] VITALS: TEMP 98.4
[2022-06-04] MEDS: MIRALAX 17 GM POWD.PACK GT SCH (21:36)
[2022-06-05] MEDS: JEVITY 1.2 1000 ML LIQUID GT PRN (03:09)
[2022-06-05] MEDS: BACLOFEN 10 MG TABLET GT SCH ×3 (06:10→21:04)
[2022-06-05] MEDS: HYDROGEN PEROXIDE 3% 118 ML BOTTLE TOP SCH ×2 (07:13→18:59)
[2022-06-05] MEDS: ALBUTEROL SULFATE 2.5 MG/3 ML NEBU NEB SCH ×4 (07:13→18:59)
[2022-06-05] MEDS: IPRATROPIUM BROMIDE 0.5 MG/2.5 ML NEBU NEB SCH ×4 (07:13→18:59)
[2022-06-05 07:32] VITALS: TEMP 97
[2022-06-05] MEDS: OMEPRAZOLE 20 MG CAPSULE.DR GT SCH ×2 (08:25→21:02)
[2022-06-05] MEDS: PROTEIN SUPPLEMENT (PROSTAT) 30 ML LIQUID GT SCH (08:25)
[2022-06-05] MEDS: CULTURELLE CAPSULE GT SCH ×2 (08:26→20:56)
[2022-06-05] MEDS: ARGININE/GLUTAMINE/CALCIUM BMB 1 EACH POWD.PACK GT SCH ×2 (08:27→17:37)
[2022-06-05] MEDS: PHENYTOIN 100 MG/4 ML UDC GT SCH ×2 (08:27→20:59)
[2022-06-05] MEDS: PHENOBARBITAL 64.8 MG TABLET GT SCH ×2 (08:28→21:00)
[2022-06-05] MEDS: ASCORBIC ACID 500 MG TABLET GT SCH (08:29)
[2022-06-05] MEDS: CHOLECALCIFEROL 400 UNITS TABLET GT SCH ×2 (08:29→21:02)
[2022-06-05] MEDS: VITAMINS A AND D OINT 42 GM TUBE TP SCH ×3 (09:44)
[2022-06-05] MEDS: REMEDY ESSENTIAL ZINC PASTE 113 GM TP SCH ×2 (09:44→21:04)
[2022-06-05] MEDS: COD LIVER OIL/ZINC OXIDE OINT 113 GM TUBE TP SCH ×2 (09:44→21:04)
[2022-06-05 20:00] VITALS: TEMP 97.6
[2022-06-05] MEDS: MIRALAX 17 GM POWD.PACK GT SCH (21:02)
[2022-06-06] MEDS: JEVITY 1.2 1000 ML LIQUID GT PRN (03:57)
[2022-06-06] MEDS: OMEPRAZOLE 20 MG CAPSULE.DR GT SCH ×2 (06:14→21:33)
[2022-06-06] MEDS: BACLOFEN 10 MG TABLET GT SCH ×3 (06:14→21:33)
[2022-06-06] MEDS: IPRATROPIUM BROMIDE 0.5 MG/2.5 ML NEBU NEB SCH ×4 (07:22→18:01)
[2022-06-06] MEDS: ALBUTEROL SULFATE 2.5 MG/3 ML NEBU NEB SCH ×4 (07:22→18:01)
[2022-06-06 07:38] VITALS: TEMP 98.1
[2022-06-06] MEDS: HYDROGEN PEROXIDE 3% 118 ML BOTTLE TOP SCH ×2 (08:30→20:30)
[2022-06-06] MEDS: PROTEIN SUPPLEMENT (PROSTAT) 30 ML LIQUID GT SCH (08:57)
[2022-06-06] MEDS: PHENYTOIN 100 MG/4 ML UDC GT SCH ×2 (08:58→21:33)
[2022-06-06] MEDS: COD LIVER OIL/ZINC OXIDE OINT 113 GM TUBE TP SCH ×2 (09:00→21:33)
[2022-06-06] MEDS: CULTURELLE CAPSULE GT SCH ×2 (09:01→21:33)
[2022-06-06] MEDS: ARGININE/GLUTAMINE/CALCIUM BMB 1 EACH POWD.PACK GT SCH ×2 (09:01→17:12)
[2022-06-06] MEDS: ASCORBIC ACID 500 MG TABLET GT SCH (09:03)
[2022-06-06] MEDS: CHOLECALCIFEROL 400 UNITS TABLET GT SCH ×2 (09:03→21:33)
[2022-06-06] MEDS: PHENOBARBITAL 64.8 MG TABLET GT SCH ×2 (09:03→21:33)
[2022-06-06] MEDS: REMEDY ESSENTIAL ZINC PASTE 113 GM TP SCH ×2 (09:04→21:33)
[2022-06-06] MEDS: VITAMINS A AND D OINT 42 GM TUBE TP SCH ×3 (09:05)
[2022-06-06 20:00] VITALS: TEMP 97.6
[2022-06-06] MEDS: MIRALAX 17 GM POWD.PACK GT SCH (21:33)
[2022-06-07] MEDS: JEVITY 1.2 1000 ML LIQUID GT PRN (03:40)
[2022-06-07] MEDS: OMEPRAZOLE 20 MG CAPSULE.DR GT SCH ×2 (06:03→21:01)
[2022-06-07] MEDS: BACLOFEN 10 MG TABLET GT SCH ×3 (06:03→22:07)
[2022-06-07 07:50] VITALS: TEMP 97.2
[2022-06-07] MEDS: IPRATROPIUM BROMIDE 0.5 MG/2.5 ML NEBU NEB SCH ×4 (08:04→19:00)
[2022-06-07] MEDS: ALBUTEROL SULFATE 2.5 MG/3 ML NEBU NEB SCH ×4 (08:04→19:00)
[2022-06-07] MEDS: HYDROGEN PEROXIDE 3% 118 ML BOTTLE TOP SCH ×2 (08:05→21:11)
[2022-06-07] MEDS: PHENYTOIN 100 MG/4 ML UDC GT SCH ×2 (08:51→20:59)
[2022-06-07] MEDS: PROTEIN SUPPLEMENT (PROSTAT) 30 ML LIQUID GT SCH (08:51)
[2022-06-07] MEDS: CULTURELLE CAPSULE GT SCH ×2 (08:51→20:58)
[2022-06-07] MEDS: ARGININE/GLUTAMINE/CALCIUM BMB 1 EACH POWD.PACK GT SCH ×2 (08:53→17:40)
[2022-06-07] MEDS: PHENOBARBITAL 64.8 MG TABLET GT SCH ×2 (08:53→20:59)
[2022-06-07] MEDS: VITAMINS A AND D OINT 42 GM TUBE TP SCH ×3 (08:54)
[2022-06-07] MEDS: ASCORBIC ACID 500 MG TABLET GT SCH (08:54)
[2022-06-07] MEDS: COD LIVER OIL/ZINC OXIDE OINT 113 GM TUBE TP SCH ×2 (08:54→21:03)
[2022-06-07] MEDS: CHOLECALCIFEROL 400 UNITS TABLET GT SCH ×2 (08:54→21:01)
[2022-06-07] MEDS: REMEDY ESSENTIAL ZINC PASTE 113 GM TP SCH ×2 (08:54→21:03)
[2022-06-07 20:00] VITALS: TEMP 97.6
[2022-06-07] MEDS: MIRALAX 17 GM POWD.PACK GT SCH (21:01)
[2022-06-08] MEDS: OMEPRAZOLE 20 MG CAPSULE.DR GT SCH ×2 (05:20→21:27)
[2022-06-08] MEDS: BACLOFEN 10 MG TABLET GT SCH ×3 (05:20→22:08)
[2022-06-08] MEDS: ALBUTEROL SULFATE 2.5 MG/3 ML NEBU NEB SCH ×4 (07:24→18:31)
[2022-06-08] MEDS: IPRATROPIUM BROMIDE 0.5 MG/2.5 ML NEBU NEB SCH ×4 (07:24→18:31)
[2022-06-08] MEDS: HYDROGEN PEROXIDE 3% 118 ML BOTTLE TOP SCH ×2 (07:25→20:54)
[2022-06-08 08:06] VITALS: BP 120/64; TEMP 98.3; O2SAT 100
[2022-06-08] MEDS: PROTEIN SUPPLEMENT (PROSTAT) 30 ML LIQUID GT SCH (08:19)
[2022-06-08] MEDS: CULTURELLE CAPSULE GT SCH ×2 (08:21→20:20)
[2022-06-08] MEDS: PHENYTOIN 100 MG/4 ML UDC GT SCH ×2 (08:21→20:58)
[2022-06-08] MEDS: ARGININE/GLUTAMINE/CALCIUM BMB 1 EACH POWD.PACK GT SCH ×2 (08:22→17:41)
[2022-06-08] MEDS: VITAMINS A AND D OINT 42 GM TUBE TP SCH ×3 (08:24)
[2022-06-08] MEDS: CHOLECALCIFEROL 400 UNITS TABLET GT SCH ×2 (08:24→20:03)
[2022-06-08] MEDS: ASCORBIC ACID 500 MG TABLET GT SCH (08:24)
[2022-06-08] MEDS: REMEDY ESSENTIAL ZINC PASTE 113 GM TP SCH ×2 (08:24→20:20)
[2022-06-08] MEDS: COD LIVER OIL/ZINC OXIDE OINT 113 GM TUBE TP SCH ×2 (08:24→20:20)
[2022-06-08] MEDS: PHENOBARBITAL 64.8 MG TABLET GT SCH ×2 (08:32→20:01)
[2022-06-08 20:00] VITALS: TEMP 97.6
[2022-06-08] MEDS: MIRALAX 17 GM POWD.PACK GT SCH (20:02)
[2022-06-09] MEDS: OMEPRAZOLE 20 MG CAPSULE.DR GT SCH ×2 (06:05→21:20)
[2022-06-09] MEDS: BACLOFEN 10 MG TABLET GT SCH ×3 (06:05→21:20)
[2022-06-09] MEDS: JEVITY 1.2 1000 ML LIQUID GT PRN (06:15)
[2022-06-09 07:29] VITALS: TEMP 97.6
[2022-06-09] MEDS: HYDROGEN PEROXIDE 3% 118 ML BOTTLE TOP SCH ×2 (07:33→21:35)
[2022-06-09] MEDS: ALBUTEROL SULFATE 2.5 MG/3 ML NEBU NEB SCH ×4 (07:33→18:35)
[2022-06-09] MEDS: IPRATROPIUM BROMIDE 0.5 MG/2.5 ML NEBU NEB SCH ×4 (07:33→18:35)
[2022-06-09] MEDS: PROTEIN SUPPLEMENT (PROSTAT) 30 ML LIQUID GT SCH (08:00)
[2022-06-09] MEDS: CHOLECALCIFEROL 400 UNITS TABLET GT SCH ×2 (09:11→21:20)
[2022-06-09] MEDS: VITAMINS A AND D OINT 42 GM TUBE TP SCH ×3 (09:11)
[2022-06-09] MEDS: ASCORBIC ACID 500 MG TABLET GT SCH (09:11)
[2022-06-09] MEDS: ARGININE/GLUTAMINE/CALCIUM BMB 1 EACH POWD.PACK GT SCH ×2 (09:11→17:49)
[2022-06-09] MEDS: CULTURELLE CAPSULE GT SCH ×2 (09:11→21:20)
[2022-06-09] MEDS: COD LIVER OIL/ZINC OXIDE OINT 113 GM TUBE TP SCH ×2 (09:11→21:20)
[2022-06-09] MEDS: REMEDY ESSENTIAL ZINC PASTE 113 GM TP SCH ×2 (09:11→21:20)
[2022-06-09] MEDS: PHENYTOIN 100 MG/4 ML UDC GT SCH ×2 (09:11→21:20)
[2022-06-09] MEDS: PHENOBARBITAL 64.8 MG TABLET GT SCH ×2 (09:11→21:20)
[2022-06-09 20:02] VITALS: TEMP 97.7
[2022-06-09] MEDS: MIRALAX 17 GM POWD.PACK GT SCH (21:20)
[2022-06-10] MEDS: JEVITY 1.2 1000 ML LIQUID GT PRN (03:18)
[2022-06-10] MEDS: BACLOFEN 10 MG TABLET GT SCH ×3 (05:47→21:44)
[2022-06-10] MEDS: OMEPRAZOLE 20 MG CAPSULE.DR GT SCH ×2 (05:47→21:44)
[2022-06-10] MEDS: IPRATROPIUM BROMIDE 0.5 MG/2.5 ML NEBU NEB SCH ×4 (07:37→19:09)
[2022-06-10] MEDS: ALBUTEROL SULFATE 2.5 MG/3 ML NEBU NEB SCH ×4 (07:37→19:09)
[2022-06-10 08:00] VITALS: TEMP 97.8
[2022-06-10] MEDS: HYDROGEN PEROXIDE 3% 118 ML BOTTLE TOP SCH ×2 (08:18→19:09)
[2022-06-10] MEDS: CULTURELLE CAPSULE GT SCH ×2 (08:44→21:44)
[2022-06-10] MEDS: PHENYTOIN 100 MG/4 ML UDC GT SCH ×2 (08:44→21:44)
[2022-06-10] MEDS: PROTEIN SUPPLEMENT (PROSTAT) 30 ML LIQUID GT SCH (08:44)
[2022-06-10] MEDS: ARGININE/GLUTAMINE/CALCIUM BMB 1 EACH POWD.PACK GT SCH ×2 (08:45→16:34)
[2022-06-10] MEDS: COD LIVER OIL/ZINC OXIDE OINT 113 GM TUBE TP SCH ×2 (08:45→21:44)
[2022-06-10] MEDS: REMEDY ESSENTIAL ZINC PASTE 113 GM TP SCH ×2 (08:45→21:44)
[2022-06-10] MEDS: VITAMINS A AND D OINT 42 GM TUBE TP SCH ×3 (08:45)
[2022-06-10] MEDS: PHENOBARBITAL 64.8 MG TABLET GT SCH ×2 (08:45→21:44)
[2022-06-10] MEDS: ASCORBIC ACID 500 MG TABLET GT SCH (08:45)
[2022-06-10] MEDS: CHOLECALCIFEROL 400 UNITS TABLET GT SCH ×2 (08:45→21:44)
[2022-06-10 20:29] VITALS: TEMP 97.7
[2022-06-10] MEDS: MIRALAX 17 GM POWD.PACK GT SCH (21:44)
[2022-06-11] MEDS: JEVITY 1.2 1000 ML LIQUID GT PRN (04:09)
[2022-06-11] MEDS: BACLOFEN 10 MG TABLET GT SCH ×3 (05:31→22:32)
[2022-06-11] MEDS: OMEPRAZOLE 20 MG CAPSULE.DR GT SCH ×2 (05:31→20:24)
[2022-06-11 07:18] VITALS: TEMP 97.8
[2022-06-11] MEDS: IPRATROPIUM BROMIDE 0.5 MG/2.5 ML NEBU NEB SCH ×4 (07:46→19:15)
[2022-06-11] MEDS: ALBUTEROL SULFATE 2.5 MG/3 ML NEBU NEB SCH ×4 (07:46→19:15)
[2022-06-11] MEDS: PROTEIN SUPPLEMENT (PROSTAT) 30 ML LIQUID GT SCH (08:00)
[2022-06-11] MEDS: CHOLECALCIFEROL 400 UNITS TABLET GT SCH ×2 (09:11→20:24)
[2022-06-11] MEDS: CULTURELLE CAPSULE GT SCH ×2 (09:11→20:23)
[2022-06-11] MEDS: PHENYTOIN 100 MG/4 ML UDC GT SCH ×2 (09:11→20:23)
[2022-06-11] MEDS: ASCORBIC ACID 500 MG TABLET GT SCH (09:11)
[2022-06-11] MEDS: PHENOBARBITAL 64.8 MG TABLET GT SCH ×2 (09:11→20:23)
[2022-06-11] MEDS: ARGININE/GLUTAMINE/CALCIUM BMB 1 EACH POWD.PACK GT SCH ×2 (09:11→17:00)
[2022-06-11] MEDS: REMEDY ESSENTIAL ZINC PASTE 113 GM TP SCH ×2 (09:12→20:24)
[2022-06-11] MEDS: VITAMINS A AND D OINT 42 GM TUBE TP SCH ×3 (09:12)
[2022-06-11] MEDS: COD LIVER OIL/ZINC OXIDE OINT 113 GM TUBE TP SCH ×2 (09:12→20:24)
[2022-06-11] MEDS: HYDROGEN PEROXIDE 3% 118 ML BOTTLE TOP SCH ×2 (09:13→19:15)
[2022-06-11 20:00] VITALS: TEMP 97.9
[2022-06-11] MEDS: MIRALAX 17 GM POWD.PACK GT SCH (20:23)
[2022-06-12] MEDS: BACLOFEN 10 MG TABLET GT SCH ×3 (05:17→21:24)
[2022-06-12] MEDS: OMEPRAZOLE 20 MG CAPSULE.DR GT SCH ×2 (05:31→21:24)
[2022-06-12] MEDS: JEVITY 1.2 1000 ML LIQUID GT PRN (05:32)
[2022-06-12] MEDS: ALBUTEROL SULFATE 2.5 MG/3 ML NEBU NEB SCH ×4 (07:11→19:15)
[2022-06-12] MEDS: IPRATROPIUM BROMIDE 0.5 MG/2.5 ML NEBU NEB SCH ×4 (07:11→19:15)
[2022-06-12 08:00] VITALS: TEMP 97.1
[2022-06-12] MEDS: PROTEIN SUPPLEMENT (PROSTAT) 30 ML LIQUID GT SCH (08:00)
[2022-06-12] MEDS: HYDROGEN PEROXIDE 3% 118 ML BOTTLE TOP SCH ×2 (08:07→19:16)
[2022-06-12] MEDS: PHENYTOIN 100 MG/4 ML UDC GT SCH ×2 (09:06→21:24)
[2022-06-12] MEDS: CULTURELLE CAPSULE GT SCH ×2 (09:06→21:24)
[2022-06-12] MEDS: ARGININE/GLUTAMINE/CALCIUM BMB 1 EACH POWD.PACK GT SCH ×2 (09:06→17:16)
[2022-06-12] MEDS: PHENOBARBITAL 64.8 MG TABLET GT SCH ×2 (09:08→21:24)
[2022-06-12] MEDS: CHOLECALCIFEROL 400 UNITS TABLET GT SCH ×2 (09:08→21:24)
[2022-06-12] MEDS: ASCORBIC ACID 500 MG TABLET GT SCH (09:08)
[2022-06-12] MEDS: REMEDY ESSENTIAL ZINC PASTE 113 GM TP SCH ×2 (09:09→21:24)
[2022-06-12] MEDS: COD LIVER OIL/ZINC OXIDE OINT 113 GM TUBE TP SCH ×2 (09:09→21:24)
[2022-06-12] MEDS: VITAMINS A AND D OINT 42 GM TUBE TP SCH ×3 (09:09)
[2022-06-12 20:00] VITALS: TEMP 98
[2022-06-12] MEDS: MIRALAX 17 GM POWD.PACK GT SCH (21:24)
[2022-06-13] MEDS: JEVITY 1.2 1000 ML LIQUID GT PRN (03:49)
[2022-06-13] MEDS: OMEPRAZOLE 20 MG CAPSULE.DR GT SCH ×2 (05:35→21:31)
[2022-06-13] MEDS: BACLOFEN 10 MG TABLET GT SCH ×3 (05:35→21:48)
[2022-06-13] MEDS: ALBUTEROL SULFATE 2.5 MG/3 ML NEBU NEB SCH ×4 (07:44→19:12)
[2022-06-13] MEDS: IPRATROPIUM BROMIDE 0.5 MG/2.5 ML NEBU NEB SCH ×4 (07:44→19:12)
[2022-06-13] MEDS: HYDROGEN PEROXIDE 3% 118 ML BOTTLE TOP SCH ×2 (07:44→19:12)
[2022-06-13 08:00] VITALS: TEMP 98.6
[2022-06-13] MEDS: PROTEIN SUPPLEMENT (PROSTAT) 30 ML LIQUID GT SCH (08:49)
[2022-06-13] MEDS: CULTURELLE CAPSULE GT SCH ×2 (08:49→21:31)
[2022-06-13] MEDS: PHENYTOIN 100 MG/4 ML UDC GT SCH ×2 (08:50→21:31)
[2022-06-13] MEDS: ASCORBIC ACID 500 MG TABLET GT SCH (08:50)
[2022-06-13] MEDS: ARGININE/GLUTAMINE/CALCIUM BMB 1 EACH POWD.PACK GT SCH ×2 (08:50→17:06)
[2022-06-13] MEDS: PHENOBARBITAL 64.8 MG TABLET GT SCH ×2 (08:50→21:31)
[2022-06-13] MEDS: VITAMINS A AND D OINT 42 GM TUBE TP SCH ×3 (08:51)
[2022-06-13] MEDS: COD LIVER OIL/ZINC OXIDE OINT 113 GM TUBE TP SCH ×2 (08:51→21:31)
[2022-06-13] MEDS: CHOLECALCIFEROL 400 UNITS TABLET GT SCH ×2 (08:51→21:31)
[2022-06-13] MEDS: REMEDY ESSENTIAL ZINC PASTE 113 GM TP SCH ×2 (08:51→21:31)
[2022-06-13 20:00] VITALS: TEMP 98.1
[2022-06-13] MEDS: MIRALAX 17 GM POWD.PACK GT SCH (21:31)
[2022-06-14] MEDS: JEVITY 1.2 1000 ML LIQUID GT PRN (02:34)
[2022-06-14] MEDS: OMEPRAZOLE 20 MG CAPSULE.DR GT SCH ×2 (05:49→21:16)
[2022-06-14] MEDS: BACLOFEN 10 MG TABLET GT SCH ×3 (05:49→21:17)
[2022-06-14] MEDS: IPRATROPIUM BROMIDE 0.5 MG/2.5 ML NEBU NEB SCH ×4 (07:30→19:12)
[2022-06-14] MEDS: HYDROGEN PEROXIDE 3% 118 ML BOTTLE TOP SCH ×2 (07:30→19:00)
[2022-06-14] MEDS: ALBUTEROL SULFATE 2.5 MG/3 ML NEBU NEB SCH ×4 (07:30→19:12)
[2022-06-14 07:34] VITALS: TEMP 98.4
[2022-06-14] MEDS: CULTURELLE CAPSULE GT SCH ×2 (08:40→21:16)
[2022-06-14] MEDS: PROTEIN SUPPLEMENT (PROSTAT) 30 ML LIQUID GT SCH (08:40)
[2022-06-14] MEDS: ARGININE/GLUTAMINE/CALCIUM BMB 1 EACH POWD.PACK GT SCH ×2 (08:44→17:41)
[2022-06-14] MEDS: PHENOBARBITAL 64.8 MG TABLET GT SCH ×2 (08:44→21:16)
[2022-06-14] MEDS: ASCORBIC ACID 500 MG TABLET GT SCH (08:44)
[2022-06-14] MEDS: PHENYTOIN 100 MG/4 ML UDC GT SCH ×2 (08:44→21:16)
[2022-06-14] MEDS: CHOLECALCIFEROL 400 UNITS TABLET GT SCH ×2 (08:46→21:16)
[2022-06-14] MEDS: COD LIVER OIL/ZINC OXIDE OINT 113 GM TUBE TP SCH ×2 (08:46→21:16)
[2022-06-14] MEDS: VITAMINS A AND D OINT 42 GM TUBE TP SCH ×3 (08:47→08:48)
[2022-06-14] MEDS: REMEDY ESSENTIAL ZINC PASTE 113 GM TP SCH ×2 (08:47→21:17)
[2022-06-14 20:00] VITALS: TEMP 98
[2022-06-14] MEDS: MIRALAX 17 GM POWD.PACK GT SCH (21:16)
[2022-06-15] MEDS: JEVITY 1.2 1000 ML LIQUID GT PRN (03:43)
[2022-06-15] MEDS: OMEPRAZOLE 20 MG CAPSULE.DR GT SCH ×2 (05:33→21:32)
[2022-06-15] MEDS: BACLOFEN 10 MG TABLET GT SCH ×3 (05:33→21:32)
[2022-06-15] MEDS: ALBUTEROL SULFATE 2.5 MG/3 ML NEBU NEB SCH ×4 (07:05→19:13)
[2022-06-15] MEDS: HYDROGEN PEROXIDE 3% 118 ML BOTTLE TOP SCH ×3 (07:05→19:13)
[2022-06-15] MEDS: IPRATROPIUM BROMIDE 0.5 MG/2.5 ML NEBU NEB SCH ×4 (07:05→19:13)
[2022-06-15 07:46] VITALS: TEMP 97.8
[2022-06-15] MEDS: PROTEIN SUPPLEMENT (PROSTAT) 30 ML LIQUID GT SCH (08:00)
[2022-06-15] MEDS: CULTURELLE CAPSULE GT SCH ×2 (09:24→21:32)
[2022-06-15] MEDS: ARGININE/GLUTAMINE/CALCIUM BMB 1 EACH POWD.PACK GT SCH ×2 (09:25→17:00)
[2022-06-15] MEDS: PHENYTOIN 100 MG/4 ML UDC GT SCH ×2 (09:25→21:32)
[2022-06-15] MEDS: ASCORBIC ACID 500 MG TABLET GT SCH (09:27)
[2022-06-15] MEDS: CHOLECALCIFEROL 400 UNITS TABLET GT SCH ×2 (09:27→21:32)
[2022-06-15] MEDS: PHENOBARBITAL 64.8 MG TABLET GT SCH ×2 (09:27→21:32)
[2022-06-15] MEDS: VITAMINS A AND D OINT 42 GM TUBE TP SCH ×3 (09:28)
[2022-06-15] MEDS: COD LIVER OIL/ZINC OXIDE OINT 113 GM TUBE TP SCH ×2 (09:28→21:32)
[2022-06-15] MEDS: REMEDY ESSENTIAL ZINC PASTE 113 GM TP SCH ×2 (09:28→21:32)
[2022-06-15 20:00] VITALS: TEMP 97.8
[2022-06-15] MEDS: MIRALAX 17 GM POWD.PACK GT SCH (21:32)
[2022-06-15] MEDS: NEOMY/BACITRAC/POLYMI OINT 28.35 GM TUBE TOP SCH (22:01)
[2022-06-16] MEDS: JEVITY 1.2 1000 ML LIQUID GT PRN (04:13)
[2022-06-16] MEDS: BACLOFEN 10 MG TABLET GT SCH ×3 (05:53→21:12)
[2022-06-16] MEDS: OMEPRAZOLE 20 MG CAPSULE.DR GT SCH ×2 (05:53→21:11)
[2022-06-16] MEDS: IPRATROPIUM BROMIDE 0.5 MG/2.5 ML NEBU NEB SCH ×4 (07:32→19:10)
[2022-06-16] MEDS: ALBUTEROL SULFATE 2.5 MG/3 ML NEBU NEB SCH ×4 (07:32→19:10)
[2022-06-16] MEDS: HYDROGEN PEROXIDE 3% 118 ML BOTTLE TOP SCH ×2 (07:33→19:10)
[2022-06-16 07:53] VITALS: TEMP 97.4
[2022-06-16] MEDS: PROTEIN SUPPLEMENT (PROSTAT) 30 ML LIQUID GT SCH (08:51)
[2022-06-16] MEDS: PHENYTOIN 100 MG/4 ML UDC GT SCH ×2 (08:54→21:08)
[2022-06-16] MEDS: CULTURELLE CAPSULE GT SCH ×2 (08:54→21:08)
[2022-06-16] MEDS: ARGININE/GLUTAMINE/CALCIUM BMB 1 EACH POWD.PACK GT SCH ×2 (08:55→17:00)
[2022-06-16] MEDS: PHENOBARBITAL 64.8 MG TABLET GT SCH ×2 (08:58→21:09)
[2022-06-16] MEDS: CHOLECALCIFEROL 400 UNITS TABLET GT SCH ×2 (08:58→21:11)
[2022-06-16] MEDS: ASCORBIC ACID 500 MG TABLET GT SCH (08:58)
[2022-06-16] MEDS: REMEDY ESSENTIAL ZINC PASTE 113 GM TP SCH ×2 (08:59→21:12)
[2022-06-16] MEDS: COD LIVER OIL/ZINC OXIDE OINT 113 GM TUBE TP SCH ×2 (08:59→21:12)
[2022-06-16] MEDS: NEOMY/BACITRAC/POLYMI OINT 28.35 GM TUBE TOP SCH ×2 (08:59→21:11)
[2022-06-16] MEDS: VITAMINS A AND D OINT 42 GM TUBE TP SCH ×3 (09:00)
[2022-06-16] MEDS: MIRALAX 17 GM POWD.PACK GT SCH (21:09)
[2022-06-16 21:38] VITALS: TEMP 97.7
[2022-06-17] MEDS: JEVITY 1.2 1000 ML LIQUID GT PRN ×2 (01:08→18:53)
[2022-06-17] MEDS: BACLOFEN 10 MG TABLET GT SCH ×3 (05:30→21:02)
[2022-06-17] MEDS: OMEPRAZOLE 20 MG CAPSULE.DR GT SCH ×2 (05:30→21:00)
[2022-06-17] MEDS: ALBUTEROL SULFATE 2.5 MG/3 ML NEBU NEB SCH ×4 (07:46→19:13)
[2022-06-17] MEDS: IPRATROPIUM BROMIDE 0.5 MG/2.5 ML NEBU NEB SCH ×4 (07:46→19:13)
[2022-06-17 07:56] VITALS: TEMP 97.5
[2022-06-17] MEDS: PROTEIN SUPPLEMENT (PROSTAT) 30 ML LIQUID GT SCH (08:00)
[2022-06-17] MEDS: PHENOBARBITAL 64.8 MG TABLET GT SCH ×3 (09:00→20:59)
[2022-06-17] MEDS: NEOMY/BACITRAC/POLYMI OINT 28.35 GM TUBE TOP SCH ×3 (09:00→21:02)
[2022-06-17] MEDS: COD LIVER OIL/ZINC OXIDE OINT 113 GM TUBE TP SCH ×3 (09:00→21:02)
[2022-06-17] MEDS: CHOLECALCIFEROL 400 UNITS TABLET GT SCH ×3 (09:00→21:01)
[2022-06-17] MEDS: VITAMINS A AND D OINT 42 GM TUBE TP SCH ×6 (09:00→09:37)
[2022-06-17] MEDS: ARGININE/GLUTAMINE/CALCIUM BMB 1 EACH POWD.PACK GT SCH ×3 (09:00→16:05)
[2022-06-17] MEDS: ASCORBIC ACID 500 MG TABLET GT SCH ×2 (09:00→09:36)
[2022-06-17] MEDS: CULTURELLE CAPSULE GT SCH ×3 (09:00→20:57)
[2022-06-17] MEDS: PHENYTOIN 100 MG/4 ML UDC GT SCH ×3 (09:00→20:58)
[2022-06-17] MEDS: REMEDY ESSENTIAL ZINC PASTE 113 GM TP SCH ×3 (09:00→21:02)
[2022-06-17] MEDS: HYDROGEN PEROXIDE 3% 118 ML BOTTLE TOP SCH ×2 (09:20→19:14)
[2022-06-17 10:20] VITALS: O2SAT 98
[2022-06-17 20:04] VITALS: TEMP 98.8
[2022-06-17] MEDS: MIRALAX 17 GM POWD.PACK GT SCH (21:00)
[2022-06-18] MEDS: OMEPRAZOLE 20 MG CAPSULE.DR GT SCH ×2 (05:41→21:21)
[2022-06-18] MEDS: BACLOFEN 10 MG TABLET GT SCH ×3 (05:41→21:22)
[2022-06-18] MEDS: ALBUTEROL SULFATE 2.5 MG/3 ML NEBU NEB SCH ×4 (07:20→19:11)
[2022-06-18] MEDS: HYDROGEN PEROXIDE 3% 118 ML BOTTLE TOP SCH ×2 (07:20→19:11)
[2022-06-18] MEDS: IPRATROPIUM BROMIDE 0.5 MG/2.5 ML NEBU NEB SCH ×4 (07:20→19:10)
[2022-06-18] MEDS: PROTEIN SUPPLEMENT (PROSTAT) 30 ML LIQUID GT SCH (08:00)
[2022-06-18] MEDS: ASCORBIC ACID 500 MG TABLET GT SCH (09:00)
[2022-06-18] MEDS: VITAMINS A AND D OINT 42 GM TUBE TP SCH ×3 (09:00)
[2022-06-18] MEDS: COD LIVER OIL/ZINC OXIDE OINT 113 GM TUBE TP SCH ×2 (09:00→21:21)
[2022-06-18] MEDS: REMEDY ESSENTIAL ZINC PASTE 113 GM TP SCH ×2 (09:00→21:21)
[2022-06-18] MEDS: CHOLECALCIFEROL 400 UNITS TABLET GT SCH ×2 (09:00→21:21)
[2022-06-18] MEDS: NEOMY/BACITRAC/POLYMI OINT 28.35 GM TUBE TOP SCH ×2 (09:00→21:21)
[2022-06-18 09:15] VITALS: TEMP 98.2
[2022-06-18] MEDS: PHENYTOIN 100 MG/4 ML UDC GT SCH ×2 (09:47→21:18)
[2022-06-18] MEDS: CULTURELLE CAPSULE GT SCH ×2 (09:47→21:16)
[2022-06-18] MEDS: ARGININE/GLUTAMINE/CALCIUM BMB 1 EACH POWD.PACK GT SCH ×2 (09:49→17:29)
[2022-06-18] MEDS: PHENOBARBITAL 64.8 MG TABLET GT SCH ×2 (09:49→21:19)
[2022-06-18 19:50] VITALS: TEMP 98.5
[2022-06-18] MEDS: MIRALAX 17 GM POWD.PACK GT SCH (21:20)
[2022-06-19] MEDS: OMEPRAZOLE 20 MG CAPSULE.DR GT SCH ×2 (06:26→21:00)
[2022-06-19] MEDS: BACLOFEN 10 MG TABLET GT SCH ×3 (06:26→22:05)
[2022-06-19] MEDS: ALBUTEROL SULFATE 2.5 MG/3 ML NEBU NEB SCH ×4 (07:30→19:06)
[2022-06-19] MEDS: IPRATROPIUM BROMIDE 0.5 MG/2.5 ML NEBU NEB SCH ×4 (07:30→19:06)
[2022-06-19] MEDS: HYDROGEN PEROXIDE 3% 118 ML BOTTLE TOP SCH ×2 (07:30→19:06)
[2022-06-19 07:39] VITALS: TEMP 97.6
[2022-06-19] MEDS: PROTEIN SUPPLEMENT (PROSTAT) 30 ML LIQUID GT SCH (08:47)
[2022-06-19] MEDS: PHENYTOIN 100 MG/4 ML UDC GT SCH ×2 (08:48→21:00)
[2022-06-19] MEDS: CULTURELLE CAPSULE GT SCH ×2 (08:48→21:00)
[2022-06-19] MEDS: ARGININE/GLUTAMINE/CALCIUM BMB 1 EACH POWD.PACK GT SCH ×2 (08:49→17:13)
[2022-06-19] MEDS: PHENOBARBITAL 64.8 MG TABLET GT SCH ×2 (08:51→21:00)
[2022-06-19] MEDS: CHOLECALCIFEROL 400 UNITS TABLET GT SCH ×2 (08:51→21:00)
[2022-06-19] MEDS: ASCORBIC ACID 500 MG TABLET GT SCH (08:51)
[2022-06-19] MEDS: VITAMINS A AND D OINT 42 GM TUBE TP SCH ×3 (08:52→08:53)
[2022-06-19] MEDS: COD LIVER OIL/ZINC OXIDE OINT 113 GM TUBE TP SCH ×2 (08:52→21:00)
[2022-06-19] MEDS: REMEDY ESSENTIAL ZINC PASTE 113 GM TP SCH ×2 (08:52→21:00)
[2022-06-19] MEDS: NEOMY/BACITRAC/POLYMI OINT 28.35 GM TUBE TOP SCH ×2 (09:00→21:00)
[2022-06-19] MEDS: JEVITY 1.2 1000 ML LIQUID GT PRN ×2 (18:41→18:43)
[2022-06-19 20:00] VITALS: TEMP 97.6
[2022-06-19] MEDS: MIRALAX 17 GM POWD.PACK GT SCH (21:00)
[2022-06-20] MEDS: BACLOFEN 10 MG TABLET GT SCH ×3 (06:17→21:34)
[2022-06-20] MEDS: OMEPRAZOLE 20 MG CAPSULE.DR GT SCH ×2 (06:17→21:33)
[2022-06-20] MEDS: ALBUTEROL SULFATE 2.5 MG/3 ML NEBU NEB SCH ×4 (07:16→19:06)
[2022-06-20] MEDS: IPRATROPIUM BROMIDE 0.5 MG/2.5 ML NEBU NEB SCH ×4 (07:16→19:06)
[2022-06-20] MEDS: HYDROGEN PEROXIDE 3% 118 ML BOTTLE TOP SCH ×2 (08:00→21:26)
[2022-06-20] MEDS: PROTEIN SUPPLEMENT (PROSTAT) 30 ML LIQUID GT SCH (08:03)
[2022-06-20] MEDS: ARGININE/GLUTAMINE/CALCIUM BMB 1 EACH POWD.PACK GT SCH ×2 (08:07→16:08)
[2022-06-20] MEDS: PHENOBARBITAL 64.8 MG TABLET GT SCH ×2 (08:07→21:32)
[2022-06-20] MEDS: ASCORBIC ACID 500 MG TABLET GT SCH (08:08)
[2022-06-20] MEDS: CULTURELLE CAPSULE GT SCH ×2 (08:08→21:31)
[2022-06-20] MEDS: CHOLECALCIFEROL 400 UNITS TABLET GT SCH ×2 (08:08→21:33)
[2022-06-20] MEDS: PHENYTOIN 100 MG/4 ML UDC GT SCH ×2 (08:10→21:31)
[2022-06-20] MEDS: REMEDY ESSENTIAL ZINC PASTE 113 GM TP SCH ×2 (09:38→21:34)
[2022-06-20] MEDS: NEOMY/BACITRAC/POLYMI OINT 28.35 GM TUBE TOP SCH ×2 (09:38→21:33)
[2022-06-20] MEDS: COD LIVER OIL/ZINC OXIDE OINT 113 GM TUBE TP SCH ×2 (09:38→21:33)
[2022-06-20] MEDS: VITAMINS A AND D OINT 42 GM TUBE TP SCH ×3 (09:38)
[2022-06-20] MEDS: JEVITY 1.2 1000 ML LIQUID GT PRN (16:32)
[2022-06-20 20:00] VITALS: TEMP 98.4
[2022-06-20] MEDS: MIRALAX 17 GM POWD.PACK GT SCH (21:33)
[2022-06-21] MEDS: OMEPRAZOLE 20 MG CAPSULE.DR GT SCH ×2 (05:51→20:31)
[2022-06-21] MEDS: BACLOFEN 10 MG TABLET GT SCH ×3 (05:51→22:19)
[2022-06-21 07:28] VITALS: TEMP 97
[2022-06-21] MEDS: IPRATROPIUM BROMIDE 0.5 MG/2.5 ML NEBU NEB SCH ×4 (07:44→18:06)
[2022-06-21] MEDS: ALBUTEROL SULFATE 2.5 MG/3 ML NEBU NEB SCH ×4 (07:44→18:06)
[2022-06-21] MEDS: PROTEIN SUPPLEMENT (PROSTAT) 30 ML LIQUID GT SCH (08:03)
[2022-06-21] MEDS: CULTURELLE CAPSULE GT SCH ×2 (08:03→20:27)
[2022-06-21] MEDS: PHENOBARBITAL 64.8 MG TABLET GT SCH ×2 (08:04→20:26)
[2022-06-21] MEDS: ASCORBIC ACID 500 MG TABLET GT SCH (08:04)
[2022-06-21] MEDS: CHOLECALCIFEROL 400 UNITS TABLET GT SCH ×2 (08:04→20:31)
[2022-06-21] MEDS: NEOMY/BACITRAC/POLYMI OINT 28.35 GM TUBE TOP SCH ×2 (08:04→20:35)
[2022-06-21] MEDS: PHENYTOIN 100 MG/4 ML UDC GT SCH ×2 (08:04→20:27)
[2022-06-21] MEDS: COD LIVER OIL/ZINC OXIDE OINT 113 GM TUBE TP SCH ×2 (08:04→20:35)
[2022-06-21] MEDS: ARGININE/GLUTAMINE/CALCIUM BMB 1 EACH POWD.PACK GT SCH ×2 (08:04→17:13)
[2022-06-21] MEDS: REMEDY ESSENTIAL ZINC PASTE 113 GM TP SCH ×2 (08:05→20:35)
[2022-06-21] MEDS: VITAMINS A AND D OINT 42 GM TUBE TP SCH ×3 (08:05)
[2022-06-21] MEDS: HYDROGEN PEROXIDE 3% 118 ML BOTTLE TOP SCH ×2 (08:28→18:06)
[2022-06-21] MEDS: JEVITY 1.2 1000 ML LIQUID GT PRN (16:38)
[2022-06-21 20:00] VITALS: TEMP 97.8
[2022-06-21] MEDS: MIRALAX 17 GM POWD.PACK GT SCH (20:27)
[2022-06-22] MEDS: OMEPRAZOLE 20 MG CAPSULE.DR GT SCH ×2 (06:06→20:28)
[2022-06-22] MEDS: BACLOFEN 10 MG TABLET GT SCH ×3 (06:06→22:20)
[2022-06-22] MEDS: HYDROGEN PEROXIDE 3% 118 ML BOTTLE TOP SCH ×2 (07:38→19:00)
[2022-06-22] MEDS: IPRATROPIUM BROMIDE 0.5 MG/2.5 ML NEBU NEB SCH ×4 (07:38→19:07)
[2022-06-22] MEDS: ALBUTEROL SULFATE 2.5 MG/3 ML NEBU NEB SCH ×4 (07:38→19:07)
[2022-06-22 07:48] VITALS: TEMP 97.4
[2022-06-22] MEDS: PROTEIN SUPPLEMENT (PROSTAT) 30 ML LIQUID GT SCH (08:38)
[2022-06-22] MEDS: PHENYTOIN 100 MG/4 ML UDC GT SCH ×2 (08:41→20:27)
[2022-06-22] MEDS: CULTURELLE CAPSULE GT SCH ×2 (08:41→20:27)
[2022-06-22] MEDS: ARGININE/GLUTAMINE/CALCIUM BMB 1 EACH POWD.PACK GT SCH ×2 (08:44→17:00)
[2022-06-22] MEDS: ASCORBIC ACID 500 MG TABLET GT SCH (08:45)
[2022-06-22] MEDS: PHENOBARBITAL 64.8 MG TABLET GT SCH ×2 (08:45→20:30)
[2022-06-22] MEDS: CHOLECALCIFEROL 400 UNITS TABLET GT SCH ×2 (08:46→20:30)
[2022-06-22] MEDS: VITAMINS A AND D OINT 42 GM TUBE TP SCH ×3 (09:00)
[2022-06-22] MEDS: NEOMY/BACITRAC/POLYMI OINT 28.35 GM TUBE TOP SCH ×2 (09:00→20:31)
[2022-06-22] MEDS: REMEDY ESSENTIAL ZINC PASTE 113 GM TP SCH ×2 (09:00→20:31)
[2022-06-22] MEDS: COD LIVER OIL/ZINC OXIDE OINT 113 GM TUBE TP SCH ×2 (09:00→20:31)
[2022-06-22 20:00] VITALS: TEMP 98
[2022-06-22] MEDS: MIRALAX 17 GM POWD.PACK GT SCH (20:28)
[2022-06-23] MEDS: OMEPRAZOLE 20 MG CAPSULE.DR GT SCH ×2 (05:39→21:00)
[2022-06-23] MEDS: BACLOFEN 10 MG TABLET GT SCH ×3 (05:39→22:46)
[2022-06-23] MEDS: IPRATROPIUM BROMIDE 0.5 MG/2.5 ML NEBU NEB SCH ×4 (05:57→18:31)
[2022-06-23] MEDS: ALBUTEROL SULFATE 2.5 MG/3 ML NEBU NEB SCH ×4 (05:57→18:31)
[2022-06-23] MEDS: HYDROGEN PEROXIDE 3% 118 ML BOTTLE TOP SCH ×2 (06:14→20:51)
[2022-06-23 08:00] VITALS: TEMP 97.3
[2022-06-23] MEDS: PROTEIN SUPPLEMENT (PROSTAT) 30 ML LIQUID GT SCH (08:00)
[2022-06-23] MEDS: PHENOBARBITAL 64.8 MG TABLET GT SCH ×2 (09:33→21:00)
[2022-06-23] MEDS: ASCORBIC ACID 500 MG TABLET GT SCH (09:33)
[2022-06-23] MEDS: CHOLECALCIFEROL 400 UNITS TABLET GT SCH ×2 (09:33→21:00)
[2022-06-23] MEDS: NEOMY/BACITRAC/POLYMI OINT 28.35 GM TUBE TOP SCH ×2 (09:33→21:00)
[2022-06-23] MEDS: PHENYTOIN 100 MG/4 ML UDC GT SCH ×2 (09:33→21:00)
[2022-06-23] MEDS: REMEDY ESSENTIAL ZINC PASTE 113 GM TP SCH ×2 (09:33→21:00)
[2022-06-23] MEDS: CULTURELLE CAPSULE GT SCH ×2 (09:33→21:00)
[2022-06-23] MEDS: ARGININE/GLUTAMINE/CALCIUM BMB 1 EACH POWD.PACK GT SCH ×2 (09:33→17:57)
[2022-06-23] MEDS: VITAMINS A AND D OINT 42 GM TUBE TP SCH ×3 (09:33)
[2022-06-23] MEDS: COD LIVER OIL/ZINC OXIDE OINT 113 GM TUBE TP SCH ×2 (09:33→21:00)
[2022-06-23] MEDS: JEVITY 1.2 1000 ML LIQUID GT PRN (14:52)
[2022-06-23 20:35] VITALS: TEMP 98.6
[2022-06-23] MEDS: MIRALAX 17 GM POWD.PACK GT SCH (21:00)
[2022-06-24] MEDS: BACLOFEN 10 MG TABLET GT SCH ×3 (06:05→21:35)
[2022-06-24] MEDS: OMEPRAZOLE 20 MG CAPSULE.DR GT SCH ×2 (06:05→21:34)
[2022-06-24] MEDS: ALBUTEROL SULFATE 2.5 MG/3 ML NEBU NEB SCH ×4 (07:17→19:01)
[2022-06-24] MEDS: IPRATROPIUM BROMIDE 0.5 MG/2.5 ML NEBU NEB SCH ×4 (07:17→19:01)
[2022-06-24 08:00] VITALS: TEMP 97.6
[2022-06-24] MEDS: PROTEIN SUPPLEMENT (PROSTAT) 30 ML LIQUID GT SCH (08:56)
[2022-06-24] MEDS: CULTURELLE CAPSULE GT SCH ×2 (08:56→21:34)
[2022-06-24] MEDS: PHENYTOIN 100 MG/4 ML UDC GT SCH ×2 (08:58→21:34)
[2022-06-24] MEDS: ARGININE/GLUTAMINE/CALCIUM BMB 1 EACH POWD.PACK GT SCH ×2 (08:59→16:39)
[2022-06-24] MEDS: PHENOBARBITAL 64.8 MG TABLET GT SCH ×2 (09:00→21:34)
[2022-06-24] MEDS: CHOLECALCIFEROL 400 UNITS TABLET GT SCH ×2 (09:01→21:34)
[2022-06-24] MEDS: COD LIVER OIL/ZINC OXIDE OINT 113 GM TUBE TP SCH ×2 (09:01→21:35)
[2022-06-24] MEDS: NEOMY/BACITRAC/POLYMI OINT 28.35 GM TUBE TOP SCH ×2 (09:01→21:34)
[2022-06-24] MEDS: ASCORBIC ACID 500 MG TABLET GT SCH (09:01)
[2022-06-24] MEDS: REMEDY ESSENTIAL ZINC PASTE 113 GM TP SCH ×2 (09:02→21:35)
[2022-06-24] MEDS: VITAMINS A AND D OINT 42 GM TUBE TP SCH ×3 (09:02)
[2022-06-24] MEDS: HYDROGEN PEROXIDE 3% 118 ML BOTTLE TOP SCH ×2 (09:46→19:01)
[2022-06-24] MEDS: JEVITY 1.2 1000 ML LIQUID GT PRN (11:34)
[2022-06-24 20:00] VITALS: TEMP 98.3
[2022-06-24] MEDS: MIRALAX 17 GM POWD.PACK GT SCH (21:34)
[2022-06-25] MEDS: BACLOFEN 10 MG TABLET GT SCH ×3 (05:39→21:51)
[2022-06-25] MEDS: OMEPRAZOLE 20 MG CAPSULE.DR GT SCH ×2 (05:39→21:50)
[2022-06-25] MEDS: ALBUTEROL SULFATE 2.5 MG/3 ML NEBU NEB SCH ×4 (07:30→19:20)
[2022-06-25] MEDS: IPRATROPIUM BROMIDE 0.5 MG/2.5 ML NEBU NEB SCH ×4 (07:30→19:20)
[2022-06-25 08:00] VITALS: TEMP 98.2
[2022-06-25] MEDS: HYDROGEN PEROXIDE 3% 118 ML BOTTLE TOP SCH ×2 (08:05→20:40)
[2022-06-25] MEDS: PROTEIN SUPPLEMENT (PROSTAT) 30 ML LIQUID GT SCH (08:42)
[2022-06-25] MEDS: CULTURELLE CAPSULE GT SCH ×2 (08:45→21:50)
[2022-06-25] MEDS: PHENYTOIN 100 MG/4 ML UDC GT SCH ×2 (08:45→21:50)
[2022-06-25] MEDS: ARGININE/GLUTAMINE/CALCIUM BMB 1 EACH POWD.PACK GT SCH ×2 (08:48→17:13)
[2022-06-25] MEDS: ASCORBIC ACID 500 MG TABLET GT SCH (08:53)
[2022-06-25] MEDS: PHENOBARBITAL 64.8 MG TABLET GT SCH ×2 (08:53→21:50)
[2022-06-25] MEDS: CHOLECALCIFEROL 400 UNITS TABLET GT SCH ×2 (08:53→21:50)
[2022-06-25] MEDS: NEOMY/BACITRAC/POLYMI OINT 28.35 GM TUBE TOP SCH (08:54)
[2022-06-25] MEDS: VITAMINS A AND D OINT 42 GM TUBE TP SCH ×3 (08:54)
[2022-06-25] MEDS: COD LIVER OIL/ZINC OXIDE OINT 113 GM TUBE TP SCH ×2 (08:54→21:50)
[2022-06-25] MEDS: REMEDY ESSENTIAL ZINC PASTE 113 GM TP SCH ×2 (08:54→21:51)
[2022-06-25] MEDS: JEVITY 1.2 1000 ML LIQUID GT PRN (11:01)
[2022-06-25 20:00] VITALS: TEMP 98.5
[2022-06-25] MEDS: MIRALAX 17 GM POWD.PACK GT SCH (21:50)
[2022-06-25] MEDS: chlorproMAZINE 25 MG TABLET GT PRN (21:51)
[2022-06-26] MEDS: JEVITY 1.2 1000 ML LIQUID GT PRN (04:10)
[2022-06-26] MEDS: BACLOFEN 10 MG TABLET GT SCH ×3 (05:33→22:55)
[2022-06-26] MEDS: OMEPRAZOLE 20 MG CAPSULE.DR GT SCH ×2 (05:33→20:30)
[2022-06-26] MEDS: ALBUTEROL SULFATE 2.5 MG/3 ML NEBU NEB SCH ×4 (07:17→19:04)
[2022-06-26] MEDS: IPRATROPIUM BROMIDE 0.5 MG/2.5 ML NEBU NEB SCH ×4 (07:17→19:04)
[2022-06-26 07:28] VITALS: TEMP 98.3
[2022-06-26] MEDS: HYDROGEN PEROXIDE 3% 118 ML BOTTLE TOP SCH ×2 (08:02→19:04)
[2022-06-26] MEDS: PROTEIN SUPPLEMENT (PROSTAT) 30 ML LIQUID GT SCH (08:47)
[2022-06-26] MEDS: CULTURELLE CAPSULE GT SCH ×2 (08:49→20:30)
[2022-06-26] MEDS: PHENYTOIN 100 MG/4 ML UDC GT SCH ×2 (08:54→20:30)
[2022-06-26] MEDS: ARGININE/GLUTAMINE/CALCIUM BMB 1 EACH POWD.PACK GT SCH ×2 (08:56→17:22)
[2022-06-26] MEDS: PHENOBARBITAL 64.8 MG TABLET GT SCH ×2 (08:59→20:30)
[2022-06-26] MEDS: ASCORBIC ACID 500 MG TABLET GT SCH (09:00)
[2022-06-26] MEDS: CHOLECALCIFEROL 400 UNITS TABLET GT SCH ×2 (09:00→20:30)
[2022-06-26] MEDS: VITAMINS A AND D OINT 42 GM TUBE TP SCH ×3 (09:01→09:02)
[2022-06-26] MEDS: COD LIVER OIL/ZINC OXIDE OINT 113 GM TUBE TP SCH ×2 (09:01→20:30)
[2022-06-26] MEDS: REMEDY ESSENTIAL ZINC PASTE 113 GM TP SCH ×2 (09:01→20:30)
[2022-06-26 20:00] VITALS: TEMP 98.5
[2022-06-26] MEDS: MIRALAX 17 GM POWD.PACK GT SCH (20:30)
[2022-06-27] MEDS: JEVITY 1.2 1000 ML LIQUID GT PRN (01:16)
[2022-06-27] MEDS: BACLOFEN 10 MG TABLET GT SCH ×3 (05:08→21:37)
[2022-06-27] MEDS: OMEPRAZOLE 20 MG CAPSULE.DR GT SCH ×2 (05:49→21:36)
[2022-06-27] MEDS: IPRATROPIUM BROMIDE 0.5 MG/2.5 ML NEBU NEB SCH ×4 (07:58→19:14)
[2022-06-27] MEDS: HYDROGEN PEROXIDE 3% 118 ML BOTTLE TOP SCH ×2 (07:58→19:14)
[2022-06-27] MEDS: ALBUTEROL SULFATE 2.5 MG/3 ML NEBU NEB SCH ×4 (07:58→19:14)
[2022-06-27 08:03] VITALS: TEMP 98.4
[2022-06-27 08:05] VITALS: TEMP 98.4
[2022-06-27] MEDS: ARGININE/GLUTAMINE/CALCIUM BMB 1 EACH POWD.PACK GT SCH ×2 (08:53→16:23)
[2022-06-27] MEDS: ASCORBIC ACID 500 MG TABLET GT SCH (08:53)
[2022-06-27] MEDS: PROTEIN SUPPLEMENT (PROSTAT) 30 ML LIQUID GT SCH (08:53)
[2022-06-27] MEDS: PHENOBARBITAL 64.8 MG TABLET GT SCH ×2 (08:53→21:36)
[2022-06-27] MEDS: COD LIVER OIL/ZINC OXIDE OINT 113 GM TUBE TP SCH ×2 (08:53→21:36)
[2022-06-27] MEDS: CHOLECALCIFEROL 400 UNITS TABLET GT SCH ×2 (08:53→21:36)
[2022-06-27] MEDS: PHENYTOIN 100 MG/4 ML UDC GT SCH ×2 (08:53→21:36)
[2022-06-27] MEDS: CULTURELLE CAPSULE GT SCH ×2 (08:53→21:36)
[2022-06-27] MEDS: VITAMINS A AND D OINT 42 GM TUBE TP SCH ×3 (08:53→08:54)
[2022-06-27] MEDS: REMEDY ESSENTIAL ZINC PASTE 113 GM TP SCH ×2 (08:53→21:36)
[2022-06-27 20:00] VITALS: TEMP 97.6
[2022-06-27] MEDS: MIRALAX 17 GM POWD.PACK GT SCH (21:36)
[2022-06-28] MEDS: JEVITY 1.2 1000 ML LIQUID GT PRN (01:15)
[2022-06-28] MEDS: BACLOFEN 10 MG TABLET GT SCH ×3 (05:45→21:44)
[2022-06-28] MEDS: OMEPRAZOLE 20 MG CAPSULE.DR GT SCH ×2 (05:45→21:44)
[2022-06-28] MEDS: ALBUTEROL SULFATE 2.5 MG/3 ML NEBU NEB SCH ×4 (06:58→19:16)
[2022-06-28] MEDS: IPRATROPIUM BROMIDE 0.5 MG/2.5 ML NEBU NEB SCH ×4 (06:58→19:16)
[2022-06-28] MEDS: HYDROGEN PEROXIDE 3% 118 ML BOTTLE TOP SCH ×2 (06:58→19:16)
[2022-06-28 08:01] VITALS: TEMP 98.3
[2022-06-28] MEDS: PROTEIN SUPPLEMENT (PROSTAT) 30 ML LIQUID GT SCH (08:21)
[2022-06-28] MEDS: CULTURELLE CAPSULE GT SCH ×2 (08:23→21:44)
[2022-06-28] MEDS: PHENYTOIN 100 MG/4 ML UDC GT SCH ×2 (08:23→21:44)
[2022-06-28] MEDS: ARGININE/GLUTAMINE/CALCIUM BMB 1 EACH POWD.PACK GT SCH ×2 (08:24→16:07)
[2022-06-28] MEDS: REMEDY ESSENTIAL ZINC PASTE 113 GM TP SCH ×2 (08:25→21:44)
[2022-06-28] MEDS: COD LIVER OIL/ZINC OXIDE OINT 113 GM TUBE TP SCH ×2 (08:25→21:44)
[2022-06-28] MEDS: CHOLECALCIFEROL 400 UNITS TABLET GT SCH ×2 (08:25→21:44)
[2022-06-28] MEDS: PHENOBARBITAL 64.8 MG TABLET GT SCH ×2 (08:25→21:44)
[2022-06-28] MEDS: ASCORBIC ACID 500 MG TABLET GT SCH (08:25)
[2022-06-28] MEDS: VITAMINS A AND D OINT 42 GM TUBE TP SCH ×3 (08:26)
[2022-06-28 20:00] VITALS: TEMP 98.3
[2022-06-28] MEDS: MIRALAX 17 GM POWD.PACK GT SCH (21:44)
[2022-06-29] MEDS: JEVITY 1.2 1000 ML LIQUID GT PRN (01:19)
[2022-06-29] MEDS: OMEPRAZOLE 20 MG CAPSULE.DR GT SCH ×2 (06:07→21:48)
[2022-06-29] MEDS: BACLOFEN 10 MG TABLET GT SCH ×3 (06:07→21:48)
[2022-06-29] MEDS: IPRATROPIUM BROMIDE 0.5 MG/2.5 ML NEBU NEB SCH ×4 (06:29→19:11)
[2022-06-29] MEDS: ALBUTEROL SULFATE 2.5 MG/3 ML NEBU NEB SCH ×4 (06:29→19:11)
[2022-06-29 07:32] VITALS: TEMP 97.2
[2022-06-29] MEDS: PROTEIN SUPPLEMENT (PROSTAT) 30 ML LIQUID GT SCH (08:47)
[2022-06-29] MEDS: CULTURELLE CAPSULE GT SCH ×2 (08:50→21:48)
[2022-06-29] MEDS: ARGININE/GLUTAMINE/CALCIUM BMB 1 EACH POWD.PACK GT SCH ×2 (08:50→17:26)
[2022-06-29] MEDS: PHENYTOIN 100 MG/4 ML UDC GT SCH ×2 (08:50→21:48)
[2022-06-29] MEDS: ASCORBIC ACID 500 MG TABLET GT SCH (08:52)
[2022-06-29] MEDS: PHENOBARBITAL 64.8 MG TABLET GT SCH ×2 (08:52→21:48)
[2022-06-29] MEDS: CHOLECALCIFEROL 400 UNITS TABLET GT SCH ×2 (08:53→21:48)
[2022-06-29] MEDS: REMEDY ESSENTIAL ZINC PASTE 113 GM TP SCH ×2 (09:00→21:48)
[2022-06-29] MEDS: VITAMINS A AND D OINT 42 GM TUBE TP SCH ×3 (09:00)
[2022-06-29] MEDS: COD LIVER OIL/ZINC OXIDE OINT 113 GM TUBE TP SCH ×2 (09:00→21:48)
[2022-06-29] MEDS: HYDROGEN PEROXIDE 3% 118 ML BOTTLE TOP SCH ×2 (09:34→19:11)
[2022-06-29 20:00] VITALS: TEMP 97.8
[2022-06-29] MEDS: MIRALAX 17 GM POWD.PACK GT SCH (21:48)
[2022-06-30] MEDS: JEVITY 1.2 1000 ML LIQUID GT PRN ×2 (01:02→20:00)
[2022-06-30] MEDS: BACLOFEN 10 MG TABLET GT SCH ×3 (05:32→21:18)
[2022-06-30] MEDS: OMEPRAZOLE 20 MG CAPSULE.DR GT SCH ×2 (05:32→20:05)
[2022-06-30] MEDS: IPRATROPIUM BROMIDE 0.5 MG/2.5 ML NEBU NEB SCH ×5 (06:00→19:13)
[2022-06-30] MEDS: ALBUTEROL SULFATE 2.5 MG/3 ML NEBU NEB SCH ×5 (06:00→19:13)
[2022-06-30 07:39] VITALS: TEMP 97.5
[2022-06-30] MEDS: PROTEIN SUPPLEMENT (PROSTAT) 30 ML LIQUID GT SCH (08:21)
[2022-06-30] MEDS: CULTURELLE CAPSULE GT SCH ×2 (08:22→20:01)
[2022-06-30] MEDS: ARGININE/GLUTAMINE/CALCIUM BMB 1 EACH POWD.PACK GT SCH ×2 (08:23→16:46)
[2022-06-30] MEDS: PHENYTOIN 100 MG/4 ML UDC GT SCH ×2 (08:23→20:02)
[2022-06-30] MEDS: COD LIVER OIL/ZINC OXIDE OINT 113 GM TUBE TP SCH ×2 (08:24→20:05)
[2022-06-30] MEDS: REMEDY ESSENTIAL ZINC PASTE 113 GM TP SCH ×2 (08:24→20:05)
[2022-06-30] MEDS: ASCORBIC ACID 500 MG TABLET GT SCH (08:24)
[2022-06-30] MEDS: CHOLECALCIFEROL 400 UNITS TABLET GT SCH ×2 (08:24→20:05)
[2022-06-30] MEDS: VITAMINS A AND D OINT 42 GM TUBE TP SCH ×3 (08:24→08:25)
[2022-06-30] MEDS: PHENOBARBITAL 64.8 MG TABLET GT SCH ×2 (08:24→20:05)
[2022-06-30] MEDS: HYDROGEN PEROXIDE 3% 118 ML BOTTLE TOP SCH ×2 (09:12→19:15)
[2022-06-30 20:00] VITALS: TEMP 98.4
[2022-06-30] MEDS: MIRALAX 17 GM POWD.PACK GT SCH (20:05)
[2022-07-01] MEDS: BACLOFEN 10 MG TABLET GT SCH ×3 (05:13→22:06)
[2022-07-01] MEDS: OMEPRAZOLE 20 MG CAPSULE.DR GT SCH ×2 (05:35→21:00)
[2022-07-01] MEDS: ALBUTEROL SULFATE 2.5 MG/3 ML NEBU NEB SCH ×4 (07:27→19:00)
[2022-07-01] MEDS: HYDROGEN PEROXIDE 3% 118 ML BOTTLE TOP SCH ×2 (07:27→19:00)
[2022-07-01] MEDS: IPRATROPIUM BROMIDE 0.5 MG/2.5 ML NEBU NEB SCH ×4 (07:27→19:00)
[2022-07-01 07:28] VITALS: TEMP 98.1
[2022-07-01] MEDS: PROTEIN SUPPLEMENT (PROSTAT) 30 ML LIQUID GT SCH (08:00)
[2022-07-01] MEDS: ARGININE/GLUTAMINE/CALCIUM BMB 1 EACH POWD.PACK GT SCH ×2 (09:14→17:16)
[2022-07-01] MEDS: PHENYTOIN 100 MG/4 ML UDC GT SCH ×2 (09:14→21:00)
[2022-07-01] MEDS: CHOLECALCIFEROL 400 UNITS TABLET GT SCH ×2 (09:15→21:00)
[2022-07-01] MEDS: REMEDY ESSENTIAL ZINC PASTE 113 GM TP SCH ×2 (09:15→21:00)
[2022-07-01] MEDS: COD LIVER OIL/ZINC OXIDE OINT 113 GM TUBE TP SCH ×2 (09:15→21:00)
[2022-07-01] MEDS: VITAMINS A AND D OINT 42 GM TUBE TP SCH ×3 (09:15→09:16)
[2022-07-01] MEDS: ASCORBIC ACID 500 MG TABLET GT SCH (09:15)
[2022-07-01] MEDS: CULTURELLE CAPSULE GT SCH ×2 (09:20→21:00)
[2022-07-01] MEDS: PHENOBARBITAL 64.8 MG TABLET GT SCH ×3 (09:35→21:00)
[2022-07-01 20:00] VITALS: TEMP 98.4
[2022-07-01] MEDS: MIRALAX 17 GM POWD.PACK GT SCH (21:00)
[2022-07-02] MEDS: IPRATROPIUM BROMIDE 0.5 MG/2.5 ML NEBU NEB SCH ×4 (06:00→19:00)
[2022-07-02] MEDS: ALBUTEROL SULFATE 2.5 MG/3 ML NEBU NEB SCH ×4 (06:00→19:00)
[2022-07-02] MEDS: BACLOFEN 10 MG TABLET GT SCH ×3 (06:05→21:25)
[2022-07-02] MEDS: OMEPRAZOLE 20 MG CAPSULE.DR GT SCH ×2 (06:05→21:24)
[2022-07-02] MEDS: HYDROGEN PEROXIDE 3% 118 ML BOTTLE TOP SCH ×2 (08:51→19:00)
[2022-07-02] MEDS: PHENOBARBITAL 64.8 MG TABLET GT SCH ×2 (08:58→21:24)
[2022-07-02] MEDS: CULTURELLE CAPSULE GT SCH ×2 (08:58→21:22)
[2022-07-02] MEDS: PHENYTOIN 100 MG/4 ML UDC GT SCH ×2 (08:58→21:22)
[2022-07-02] MEDS: ASCORBIC ACID 500 MG TABLET GT SCH (08:58)
[2022-07-02] MEDS: ARGININE/GLUTAMINE/CALCIUM BMB 1 EACH POWD.PACK GT SCH ×2 (08:58→17:18)
[2022-07-02] MEDS: CHOLECALCIFEROL 400 UNITS TABLET GT SCH ×2 (08:58→21:24)
[2022-07-02] MEDS: PROTEIN SUPPLEMENT (PROSTAT) 30 ML LIQUID GT SCH (08:58)
[2022-07-02] MEDS: COD LIVER OIL/ZINC OXIDE OINT 113 GM TUBE TP SCH ×2 (08:59→21:25)
[2022-07-02] MEDS: VITAMINS A AND D OINT 42 GM TUBE TP SCH ×3 (08:59→09:00)
[2022-07-02] MEDS: REMEDY ESSENTIAL ZINC PASTE 113 GM TP SCH ×2 (08:59→21:25)
[2022-07-02 09:22] VITALS: TEMP 97.8
[2022-07-02 20:34] VITALS: TEMP 98.4
[2022-07-02] MEDS: MIRALAX 17 GM POWD.PACK GT SCH (21:24)
[2022-07-03] MEDS: BACLOFEN 10 MG TABLET GT SCH ×3 (05:20→21:58)
[2022-07-03] MEDS: OMEPRAZOLE 20 MG CAPSULE.DR GT SCH ×2 (05:47→21:58)
[2022-07-03] MEDS: HYDROGEN PEROXIDE 3% 118 ML BOTTLE TOP SCH ×2 (07:33→19:14)
[2022-07-03] MEDS: ALBUTEROL SULFATE 2.5 MG/3 ML NEBU NEB SCH ×4 (07:33→19:14)
[2022-07-03] MEDS: IPRATROPIUM BROMIDE 0.5 MG/2.5 ML NEBU NEB SCH ×4 (07:33→19:13)
[2022-07-03 08:00] VITALS: TEMP 97.5
[2022-07-03] MEDS: PROTEIN SUPPLEMENT (PROSTAT) 30 ML LIQUID GT SCH (08:00)
[2022-07-03] MEDS: CULTURELLE CAPSULE GT SCH ×2 (09:00→21:58)
[2022-07-03] MEDS: PHENYTOIN 100 MG/4 ML UDC GT SCH ×2 (09:02→21:58)
[2022-07-03] MEDS: COD LIVER OIL/ZINC OXIDE OINT 113 GM TUBE TP SCH ×2 (09:04→21:58)
[2022-07-03] MEDS: ASCORBIC ACID 500 MG TABLET GT SCH (09:04)
[2022-07-03] MEDS: PHENOBARBITAL 64.8 MG TABLET GT SCH ×2 (09:04→21:58)
[2022-07-03] MEDS: REMEDY ESSENTIAL ZINC PASTE 113 GM TP SCH ×2 (09:04→21:58)
[2022-07-03] MEDS: VITAMINS A AND D OINT 42 GM TUBE TP SCH ×3 (09:04)
[2022-07-03] MEDS: CHOLECALCIFEROL 400 UNITS TABLET GT SCH ×2 (09:04→21:58)
[2022-07-03] MEDS: ARGININE/GLUTAMINE/CALCIUM BMB 1 EACH POWD.PACK GT SCH ×2 (09:04→16:13)
[2022-07-03 20:00] VITALS: TEMP 97.6
[2022-07-03] MEDS: MIRALAX 17 GM POWD.PACK GT SCH (21:58)
[2022-07-04] MEDS: JEVITY 1.2 1000 ML LIQUID GT PRN (03:43)
[2022-07-04] MEDS: BACLOFEN 10 MG TABLET GT SCH ×3 (05:50→21:55)
[2022-07-04] MEDS: OMEPRAZOLE 20 MG CAPSULE.DR GT SCH ×2 (05:51→21:54)
[2022-07-04] MEDS: IPRATROPIUM BROMIDE 0.5 MG/2.5 ML NEBU NEB SCH ×4 (07:52→19:01)
[2022-07-04] MEDS: ALBUTEROL SULFATE 2.5 MG/3 ML NEBU NEB SCH ×4 (07:52→19:01)
[2022-07-04] MEDS: HYDROGEN PEROXIDE 3% 118 ML BOTTLE TOP SCH ×2 (07:53→19:01)
[2022-07-04 08:00] VITALS: TEMP 98.2
[2022-07-04] MEDS: PROTEIN SUPPLEMENT (PROSTAT) 30 ML LIQUID GT SCH (08:48)
[2022-07-04] MEDS: CULTURELLE CAPSULE GT SCH ×2 (08:50→21:54)
[2022-07-04] MEDS: PHENYTOIN 100 MG/4 ML UDC GT SCH ×2 (08:50→21:54)
[2022-07-04] MEDS: ARGININE/GLUTAMINE/CALCIUM BMB 1 EACH POWD.PACK GT SCH ×2 (08:51→16:23)
[2022-07-04] MEDS: PHENOBARBITAL 64.8 MG TABLET GT SCH ×2 (08:51→21:54)
[2022-07-04] MEDS: VITAMINS A AND D OINT 42 GM TUBE TP SCH ×3 (08:53→08:54)
[2022-07-04] MEDS: CHOLECALCIFEROL 400 UNITS TABLET GT SCH ×2 (08:53→21:54)
[2022-07-04] MEDS: REMEDY ESSENTIAL ZINC PASTE 113 GM TP SCH ×2 (08:53→21:55)
[2022-07-04] MEDS: ASCORBIC ACID 500 MG TABLET GT SCH (08:53)
[2022-07-04] MEDS: COD LIVER OIL/ZINC OXIDE OINT 113 GM TUBE TP SCH ×2 (08:53→21:55)
[2022-07-04 20:15] VITALS: TEMP 97.8
[2022-07-04] MEDS: MIRALAX 17 GM POWD.PACK GT SCH (21:54)
[2022-07-04] MEDS: NEOMY/BACITRA/POLYMYXIN B OINT UD PACKET TP SCH (21:55)
[2022-07-05] MEDS: JEVITY 1.2 1000 ML LIQUID GT PRN (03:23)
[2022-07-05] MEDS: OMEPRAZOLE 20 MG CAPSULE.DR GT SCH ×2 (05:56→21:50)
[2022-07-05] MEDS: BACLOFEN 10 MG TABLET GT SCH ×3 (05:56→21:52)
[2022-07-05 07:32] VITALS: TEMP 97.6
[2022-07-05] MEDS: ALBUTEROL SULFATE 2.5 MG/3 ML NEBU NEB SCH ×4 (08:02→19:57)
[2022-07-05] MEDS: IPRATROPIUM BROMIDE 0.5 MG/2.5 ML NEBU NEB SCH ×4 (08:02→19:57)
[2022-07-05] MEDS: PHENOBARBITAL 64.8 MG TABLET GT SCH ×2 (08:23→21:50)
[2022-07-05] MEDS: PROTEIN SUPPLEMENT (PROSTAT) 30 ML LIQUID GT SCH (08:23)
[2022-07-05] MEDS: PHENYTOIN 100 MG/4 ML UDC GT SCH ×2 (08:23→21:50)
[2022-07-05] MEDS: ARGININE/GLUTAMINE/CALCIUM BMB 1 EACH POWD.PACK GT SCH ×2 (08:23→17:20)
[2022-07-05] MEDS: CULTURELLE CAPSULE GT SCH ×2 (08:23→21:50)
[2022-07-05] MEDS: COD LIVER OIL/ZINC OXIDE OINT 113 GM TUBE TP SCH ×2 (08:23→21:52)
[2022-07-05] MEDS: ASCORBIC ACID 500 MG TABLET GT SCH (08:23)
[2022-07-05] MEDS: CHOLECALCIFEROL 400 UNITS TABLET GT SCH ×2 (08:23→21:51)
[2022-07-05] MEDS: NEOMY/BACITRA/POLYMYXIN B OINT UD PACKET TP SCH ×2 (08:24→21:52)
[2022-07-05] MEDS: VITAMINS A AND D OINT 42 GM TUBE TP SCH ×3 (08:24)
[2022-07-05] MEDS: REMEDY ESSENTIAL ZINC PASTE 113 GM TP SCH ×2 (09:18→21:52)
[2022-07-05] MEDS: HYDROGEN PEROXIDE 3% 118 ML BOTTLE TOP SCH ×2 (09:23→19:57)
[2022-07-05 20:00] VITALS: TEMP 97.6
[2022-07-05] MEDS: MIRALAX 17 GM POWD.PACK GT SCH (21:50)
[2022-07-06] MEDS: JEVITY 1.2 1000 ML LIQUID GT PRN (01:37)
[2022-07-06] MEDS: OMEPRAZOLE 20 MG CAPSULE.DR GT SCH ×2 (05:40→20:34)
[2022-07-06] MEDS: BACLOFEN 10 MG TABLET GT SCH ×3 (05:40→22:04)
[2022-07-06 07:39] VITALS: TEMP 97.3
[2022-07-06] MEDS: ALBUTEROL SULFATE 2.5 MG/3 ML NEBU NEB SCH ×4 (08:20→19:00)
[2022-07-06] MEDS: IPRATROPIUM BROMIDE 0.5 MG/2.5 ML NEBU NEB SCH ×4 (08:20→19:00)
[2022-07-06] MEDS: PROTEIN SUPPLEMENT (PROSTAT) 30 ML LIQUID GT SCH (08:32)
[2022-07-06] MEDS: CULTURELLE CAPSULE GT SCH ×2 (08:32→20:34)
[2022-07-06] MEDS: ARGININE/GLUTAMINE/CALCIUM BMB 1 EACH POWD.PACK GT SCH ×2 (08:33→17:03)
[2022-07-06] MEDS: PHENYTOIN 100 MG/4 ML UDC GT SCH ×2 (08:33→20:34)
[2022-07-06] MEDS: COD LIVER OIL/ZINC OXIDE OINT 113 GM TUBE TP SCH ×2 (08:35→20:35)
[2022-07-06] MEDS: REMEDY ESSENTIAL ZINC PASTE 113 GM TP SCH ×2 (08:35→20:35)
[2022-07-06] MEDS: PHENOBARBITAL 64.8 MG TABLET GT SCH ×2 (08:35→20:34)
[2022-07-06] MEDS: CHOLECALCIFEROL 400 UNITS TABLET GT SCH ×2 (08:35→20:34)
[2022-07-06] MEDS: ASCORBIC ACID 500 MG TABLET GT SCH (08:35)
[2022-07-06] MEDS: VITAMINS A AND D OINT 42 GM TUBE TP SCH ×3 (08:36)
[2022-07-06] MEDS: NEOMY/BACITRA/POLYMYXIN B OINT UD PACKET TP SCH ×2 (08:36→20:35)
[2022-07-06] MEDS: HYDROGEN PEROXIDE 3% 118 ML BOTTLE TOP SCH ×2 (09:00→20:52)
[2022-07-06 20:00] VITALS: TEMP 98.4
[2022-07-06] MEDS: MIRALAX 17 GM POWD.PACK GT SCH (20:34)
[2022-07-07] MEDS: ARGININE/GLUTAMINE/CALCIUM BMB 1 EACH POWD.PACK GT SCH ×2 (05:32→17:03)
[2022-07-07] MEDS: BACLOFEN 10 MG TABLET GT SCH ×3 (05:32→21:44)
[2022-07-07] MEDS: OMEPRAZOLE 20 MG CAPSULE.DR GT SCH ×2 (05:32→20:29)
[2022-07-07] MEDS: JEVITY 1.2 1000 ML LIQUID GT PRN (05:33)
[2022-07-07] MEDS ORDERED: ASCORBIC ACID 500 MG TABLET GT SCH (06:00)
[2022-07-07] MEDS: IPRATROPIUM BROMIDE 0.5 MG/2.5 ML NEBU NEB SCH ×4 (07:42→19:31)
[2022-07-07] MEDS: ALBUTEROL SULFATE 2.5 MG/3 ML NEBU NEB SCH ×4 (07:42→19:31)
[2022-07-07] MEDS: HYDROGEN PEROXIDE 3% 118 ML BOTTLE TOP SCH ×2 (07:43→21:53)
[2022-07-07 08:00] VITALS: TEMP 98.2
[2022-07-07] MEDS: PROTEIN SUPPLEMENT (PROSTAT) 30 ML LIQUID GT SCH (08:00)
[2022-07-07] MEDS: CULTURELLE CAPSULE GT SCH ×2 (09:22→20:27)
[2022-07-07] MEDS: PHENYTOIN 100 MG/4 ML UDC GT SCH ×2 (09:22→20:27)
[2022-07-07] MEDS: PHENOBARBITAL 64.8 MG TABLET GT SCH ×2 (09:23→20:28)
[2022-07-07] MEDS: CHOLECALCIFEROL 400 UNITS TABLET GT SCH ×2 (09:23→20:29)
[2022-07-07] MEDS: REMEDY ESSENTIAL ZINC PASTE 113 GM TP SCH ×2 (09:24→20:29)
[2022-07-07] MEDS: NEOMY/BACITRA/POLYMYXIN B OINT UD PACKET TP SCH ×2 (09:24→20:29)
[2022-07-07] MEDS: COD LIVER OIL/ZINC OXIDE OINT 113 GM TUBE TP SCH ×2 (09:24→20:29)
[2022-07-07] MEDS: VITAMINS A AND D OINT 42 GM TUBE TP SCH ×3 (09:24)
[2022-07-07] MEDS: CLOTRIMAZOLE 1% CREAM 30 GM TUBE TP PRN (12:47)
[2022-07-07] MEDS: BETAMET DP 0.05% AUGM CR 15 GM CREAM.GM. TP PRN (12:47)
[2022-07-07] MEDS: ACETAMINOPHEN 650 MG/20 ML UDC- SA PATIENTS-PAIN ONLY GT PRN (14:17)
[2022-07-07] MEDS: MIRALAX 17 GM POWD.PACK GT SCH (20:28)
[2022-07-07 20:53] VITALS: TEMP 98.4
[2022-07-08] MEDS: JEVITY 1.2 1000 ML LIQUID GT PRN (02:20)
[2022-07-08] MEDS: BACLOFEN 10 MG TABLET GT SCH ×3 (05:14→21:45)
[2022-07-08] MEDS: ARGININE/GLUTAMINE/CALCIUM BMB 1 EACH POWD.PACK GT SCH ×2 (05:14→18:23)
[2022-07-08] MEDS: ASCORBIC ACID 500 MG TABLET GT SCH (05:14)
[2022-07-08] MEDS: OMEPRAZOLE 20 MG CAPSULE.DR GT SCH ×2 (05:44→20:31)
[2022-07-08] MEDS: ALBUTEROL SULFATE 2.5 MG/3 ML NEBU NEB SCH ×4 (07:14→19:03)
[2022-07-08] MEDS: IPRATROPIUM BROMIDE 0.5 MG/2.5 ML NEBU NEB SCH ×4 (07:14→19:03)
[2022-07-08 08:00] VITALS: TEMP 97.8
[2022-07-08] MEDS: HYDROGEN PEROXIDE 3% 118 ML BOTTLE TOP SCH ×2 (08:00→21:01)
[2022-07-08] MEDS: PHENYTOIN 100 MG/4 ML UDC GT SCH ×2 (08:40→20:30)
[2022-07-08] MEDS: CULTURELLE CAPSULE GT SCH ×2 (08:40→20:30)
[2022-07-08] MEDS: PROTEIN SUPPLEMENT (PROSTAT) 30 ML LIQUID GT SCH (08:40)
[2022-07-08] MEDS: PHENOBARBITAL 64.8 MG TABLET GT SCH ×2 (08:41→20:30)
[2022-07-08] MEDS: REMEDY ESSENTIAL ZINC PASTE 113 GM TP SCH ×2 (08:42→20:32)
[2022-07-08] MEDS: VITAMINS A AND D OINT 42 GM TUBE TP SCH ×3 (08:42)
[2022-07-08] MEDS: NEOMY/BACITRA/POLYMYXIN B OINT UD PACKET TP SCH ×2 (08:42→20:32)
[2022-07-08] MEDS: CHOLECALCIFEROL 400 UNITS TABLET GT SCH ×2 (08:42→20:31)
[2022-07-08] MEDS: COD LIVER OIL/ZINC OXIDE OINT 113 GM TUBE TP SCH ×2 (08:42→20:31)
[2022-07-08 19:52] VITALS: TEMP 98.5
[2022-07-08] MEDS: MIRALAX 17 GM POWD.PACK GT SCH (20:30)
[2022-07-09] MEDS: ASCORBIC ACID 500 MG TABLET GT SCH (05:07)
[2022-07-09] MEDS: BACLOFEN 10 MG TABLET GT SCH ×3 (05:07→21:40)
[2022-07-09] MEDS: ARGININE/GLUTAMINE/CALCIUM BMB 1 EACH POWD.PACK GT SCH ×2 (05:07→17:32)
[2022-07-09] MEDS: OMEPRAZOLE 20 MG CAPSULE.DR GT SCH ×2 (05:32→21:39)
[2022-07-09] MEDS: ALBUTEROL SULFATE 2.5 MG/3 ML NEBU NEB SCH ×4 (07:56→19:14)
[2022-07-09] MEDS: IPRATROPIUM BROMIDE 0.5 MG/2.5 ML NEBU NEB SCH ×4 (07:56→19:14)
[2022-07-09 08:01] VITALS: TEMP 97.8
[2022-07-09] MEDS: PHENYTOIN 100 MG/4 ML UDC GT SCH ×2 (08:27→21:36)
[2022-07-09] MEDS: PROTEIN SUPPLEMENT (PROSTAT) 30 ML LIQUID GT SCH (08:27)
[2022-07-09] MEDS: CULTURELLE CAPSULE GT SCH ×2 (08:27→21:35)
[2022-07-09] MEDS: REMEDY ESSENTIAL ZINC PASTE 113 GM TP SCH ×2 (08:30→21:40)
[2022-07-09] MEDS: COD LIVER OIL/ZINC OXIDE OINT 113 GM TUBE TP SCH ×2 (08:30→21:40)
[2022-07-09] MEDS: VITAMINS A AND D OINT 42 GM TUBE TP SCH ×3 (08:30)
[2022-07-09] MEDS: CHOLECALCIFEROL 400 UNITS TABLET GT SCH ×2 (08:30→21:39)
[2022-07-09] MEDS: PHENOBARBITAL 64.8 MG TABLET GT SCH ×2 (08:30→21:37)
[2022-07-09] MEDS: NEOMY/BACITRA/POLYMYXIN B OINT UD PACKET TP SCH ×2 (09:00→21:40)
[2022-07-09] MEDS: HYDROGEN PEROXIDE 3% 118 ML BOTTLE TOP SCH ×2 (09:14→19:14)
[2022-07-09 19:51] VITALS: TEMP 98.6
[2022-07-09] MEDS: MIRALAX 17 GM POWD.PACK GT SCH (21:38)
[2022-07-09] MEDS: ERYTHROMYCIN 0.5% OPHT OINT 3.5 GM TUBE RIGHTEYE SCH (21:41)
[2022-07-10] MEDS: JEVITY 1.2 1000 ML LIQUID GT PRN (01:13)
[2022-07-10] MEDS: OMEPRAZOLE 20 MG CAPSULE.DR GT SCH ×2 (05:34→21:00)
[2022-07-10] MEDS: BACLOFEN 10 MG TABLET GT SCH ×3 (05:34→22:03)
[2022-07-10] MEDS: ASCORBIC ACID 500 MG TABLET GT SCH (05:34)
[2022-07-10] MEDS: ARGININE/GLUTAMINE/CALCIUM BMB 1 EACH POWD.PACK GT SCH ×2 (05:34→17:30)
[2022-07-10] MEDS: ERYTHROMYCIN 0.5% OPHT OINT 3.5 GM TUBE RIGHTEYE SCH ×3 (05:34→22:03)
[2022-07-10] MEDS: IPRATROPIUM BROMIDE 0.5 MG/2.5 ML NEBU NEB SCH ×4 (07:12→19:17)
[2022-07-10] MEDS: ALBUTEROL SULFATE 2.5 MG/3 ML NEBU NEB SCH ×4 (07:12→19:17)
[2022-07-10 07:40] VITALS: TEMP 98.1
[2022-07-10] MEDS: HYDROGEN PEROXIDE 3% 118 ML BOTTLE TOP SCH ×2 (08:01→19:17)
[2022-07-10] MEDS: PHENYTOIN 100 MG/4 ML UDC GT SCH ×2 (08:25→21:00)
[2022-07-10] MEDS: PROTEIN SUPPLEMENT (PROSTAT) 30 ML LIQUID GT SCH (08:25)
[2022-07-10] MEDS: CULTURELLE CAPSULE GT SCH ×2 (08:25→21:00)
[2022-07-10] MEDS: CHOLECALCIFEROL 400 UNITS TABLET GT SCH ×2 (08:26→21:00)
[2022-07-10] MEDS: REMEDY ESSENTIAL ZINC PASTE 113 GM TP SCH ×2 (08:26→21:00)
[2022-07-10] MEDS: VITAMINS A AND D OINT 42 GM TUBE TP SCH ×3 (08:26→08:27)
[2022-07-10] MEDS: PHENOBARBITAL 64.8 MG TABLET GT SCH ×2 (08:26→21:00)
[2022-07-10] MEDS: COD LIVER OIL/ZINC OXIDE OINT 113 GM TUBE TP SCH ×2 (08:26→21:00)
[2022-07-10] MEDS: NEOMY/BACITRA/POLYMYXIN B OINT UD PACKET TP SCH ×2 (08:27→21:00)
[2022-07-10] MEDS: MIRALAX 17 GM POWD.PACK GT SCH (21:00)
[2022-07-10 21:35] VITALS: TEMP 98.3
[2022-07-11] MEDS: JEVITY 1.2 1000 ML LIQUID GT PRN (03:42)
[2022-07-11] MEDS: ASCORBIC ACID 500 MG TABLET GT SCH (05:40)
[2022-07-11] MEDS: BACLOFEN 10 MG TABLET GT SCH ×3 (05:40→21:26)
[2022-07-11] MEDS: ARGININE/GLUTAMINE/CALCIUM BMB 1 EACH POWD.PACK GT SCH ×2 (05:40→17:07)
[2022-07-11] MEDS: ERYTHROMYCIN 0.5% OPHT OINT 3.5 GM TUBE RIGHTEYE SCH ×3 (05:41→21:27)
[2022-07-11] MEDS: OMEPRAZOLE 20 MG CAPSULE.DR GT SCH ×2 (05:41→21:25)
[2022-07-11] MEDS: IPRATROPIUM BROMIDE 0.5 MG/2.5 ML NEBU NEB SCH ×4 (07:36→19:13)
[2022-07-11] MEDS: HYDROGEN PEROXIDE 3% 118 ML BOTTLE TOP SCH ×2 (07:36→19:13)
[2022-07-11] MEDS: ALBUTEROL SULFATE 2.5 MG/3 ML NEBU NEB SCH ×4 (07:36→19:13)
[2022-07-11 07:52] VITALS: TEMP 98.4
[2022-07-11] MEDS: PROTEIN SUPPLEMENT (PROSTAT) 30 ML LIQUID GT SCH (08:12)
[2022-07-11] MEDS: PHENOBARBITAL 64.8 MG TABLET GT SCH ×2 (08:14→21:24)
[2022-07-11] MEDS: PHENYTOIN 100 MG/4 ML UDC GT SCH ×2 (08:14→21:23)
[2022-07-11] MEDS: NEOMY/BACITRA/POLYMYXIN B OINT UD PACKET TP SCH ×2 (08:15→21:26)
[2022-07-11] MEDS: COD LIVER OIL/ZINC OXIDE OINT 113 GM TUBE TP SCH ×2 (08:15→21:26)
[2022-07-11] MEDS: CHOLECALCIFEROL 400 UNITS TABLET GT SCH ×2 (08:15→21:25)
[2022-07-11] MEDS: REMEDY ESSENTIAL ZINC PASTE 113 GM TP SCH ×2 (08:15→21:26)
[2022-07-11] MEDS: VITAMINS A AND D OINT 42 GM TUBE TP SCH ×3 (08:15→08:16)
[2022-07-11] MEDS: CULTURELLE CAPSULE GT SCH ×2 (09:00→21:23)
[2022-07-11 20:00] VITALS: TEMP 97.8
[2022-07-11] MEDS: MIRALAX 17 GM POWD.PACK GT SCH (21:24)
[2022-07-12] MEDS: JEVITY 1.2 1000 ML LIQUID GT PRN (01:28)
[2022-07-12] MEDS: ARGININE/GLUTAMINE/CALCIUM BMB 1 EACH POWD.PACK GT SCH ×2 (05:37→17:27)
[2022-07-12] MEDS: BACLOFEN 10 MG TABLET GT SCH ×3 (05:38→21:41)
[2022-07-12] MEDS: ASCORBIC ACID 500 MG TABLET GT SCH (05:38)
[2022-07-12] MEDS: ERYTHROMYCIN 0.5% OPHT OINT 3.5 GM TUBE RIGHTEYE SCH ×3 (05:38→21:41)
[2022-07-12] MEDS: OMEPRAZOLE 20 MG CAPSULE.DR GT SCH ×2 (05:38→21:40)
[2022-07-12] MEDS: IPRATROPIUM BROMIDE 0.5 MG/2.5 ML NEBU NEB SCH ×4 (06:30→19:01)
[2022-07-12] MEDS: ALBUTEROL SULFATE 2.5 MG/3 ML NEBU NEB SCH ×4 (06:30→19:01)
[2022-07-12] MEDS: HYDROGEN PEROXIDE 3% 118 ML BOTTLE TOP SCH ×2 (07:10→19:01)
[2022-07-12] MEDS: PROTEIN SUPPLEMENT (PROSTAT) 30 ML LIQUID GT SCH (08:00)
[2022-07-12 08:03] VITALS: TEMP 97.5
[2022-07-12] MEDS: CULTURELLE CAPSULE GT SCH ×2 (09:32→21:40)
[2022-07-12] MEDS: PHENYTOIN 100 MG/4 ML UDC GT SCH ×2 (09:32→21:40)
[2022-07-12] MEDS: CHOLECALCIFEROL 400 UNITS TABLET GT SCH ×2 (09:33→21:41)
[2022-07-12] MEDS: PHENOBARBITAL 64.8 MG TABLET GT SCH ×2 (09:33→21:40)
[2022-07-12] MEDS: REMEDY ESSENTIAL ZINC PASTE 113 GM TP SCH ×2 (09:34→21:41)
[2022-07-12] MEDS: COD LIVER OIL/ZINC OXIDE OINT 113 GM TUBE TP SCH ×2 (09:34→21:41)
[2022-07-12] MEDS: VITAMINS A AND D OINT 42 GM TUBE TP SCH ×3 (09:34)
[2022-07-12] MEDS: NEOMY/BACITRA/POLYMYXIN B OINT UD PACKET TP SCH ×2 (09:34→21:41)
[2022-07-12 20:00] VITALS: TEMP 97.8
[2022-07-12] MEDS: MIRALAX 17 GM POWD.PACK GT SCH (21:40)
[2022-07-13] MEDS: JEVITY 1.2 1000 ML LIQUID GT PRN (03:00)
[2022-07-13] MEDS: OMEPRAZOLE 20 MG CAPSULE.DR GT SCH ×2 (05:34→20:38)
[2022-07-13] MEDS: ARGININE/GLUTAMINE/CALCIUM BMB 1 EACH POWD.PACK GT SCH ×2 (05:34→17:08)
[2022-07-13] MEDS: ASCORBIC ACID 500 MG TABLET GT SCH (05:34)
[2022-07-13] MEDS: BACLOFEN 10 MG TABLET GT SCH ×3 (05:34→22:00)
[2022-07-13] MEDS: ERYTHROMYCIN 0.5% OPHT OINT 3.5 GM TUBE RIGHTEYE SCH ×3 (05:34→22:00)
[2022-07-13] MEDS: IPRATROPIUM BROMIDE 0.5 MG/2.5 ML NEBU NEB SCH ×4 (07:15→18:04)
[2022-07-13] MEDS: ALBUTEROL SULFATE 2.5 MG/3 ML NEBU NEB SCH ×4 (07:15→18:04)
[2022-07-13 08:00] VITALS: TEMP 98
[2022-07-13] MEDS: HYDROGEN PEROXIDE 3% 118 ML BOTTLE TOP SCH ×2 (08:06→21:06)
[2022-07-13] MEDS: PROTEIN SUPPLEMENT (PROSTAT) 30 ML LIQUID GT SCH (08:58)
[2022-07-13] MEDS: CULTURELLE CAPSULE GT SCH ×2 (09:00→20:38)
[2022-07-13] MEDS: PHENYTOIN 100 MG/4 ML UDC GT SCH ×2 (09:00→20:38)
[2022-07-13] MEDS: CHOLECALCIFEROL 400 UNITS TABLET GT SCH ×2 (09:01→20:39)
[2022-07-13] MEDS: PHENOBARBITAL 64.8 MG TABLET GT SCH ×2 (09:01→20:38)
[2022-07-13] MEDS: VITAMINS A AND D OINT 42 GM TUBE TP SCH ×3 (09:03)
[2022-07-13] MEDS: REMEDY ESSENTIAL ZINC PASTE 113 GM TP SCH ×2 (09:03→20:39)
[2022-07-13] MEDS: NEOMY/BACITRA/POLYMYXIN B OINT UD PACKET TP SCH ×4 (09:03→20:39)
[2022-07-13] MEDS: COD LIVER OIL/ZINC OXIDE OINT 113 GM TUBE TP SCH ×2 (09:03→20:39)
[2022-07-13] MEDS: MIRALAX 17 GM POWD.PACK GT SCH (20:38)
[2022-07-13 21:16] VITALS: TEMP 98.7
[2022-07-14] MEDS: JEVITY 1.2 1000 ML LIQUID GT PRN (05:00)
[2022-07-14] MEDS: ARGININE/GLUTAMINE/CALCIUM BMB 1 EACH POWD.PACK GT SCH ×2 (05:04→17:37)
[2022-07-14] MEDS: ASCORBIC ACID 500 MG TABLET GT SCH (05:06)
[2022-07-14] MEDS: ERYTHROMYCIN 0.5% OPHT OINT 3.5 GM TUBE RIGHTEYE SCH ×2 (05:06→13:44)
[2022-07-14] MEDS: BACLOFEN 10 MG TABLET GT SCH ×3 (05:06→21:20)
[2022-07-14] MEDS: OMEPRAZOLE 20 MG CAPSULE.DR GT SCH ×2 (05:06→20:20)
[2022-07-14] MEDS: IPRATROPIUM BROMIDE 0.5 MG/2.5 ML NEBU NEB SCH ×4 (07:14→19:12)
[2022-07-14] MEDS: ALBUTEROL SULFATE 2.5 MG/3 ML NEBU NEB SCH ×4 (07:14→19:12)
[2022-07-14 07:27] VITALS: TEMP 98.6
[2022-07-14] MEDS: HYDROGEN PEROXIDE 3% 118 ML BOTTLE TOP SCH ×2 (08:15→19:12)
[2022-07-14] MEDS: PROTEIN SUPPLEMENT (PROSTAT) 30 ML LIQUID GT SCH (08:52)
[2022-07-14] MEDS: CULTURELLE CAPSULE GT SCH ×2 (08:54→20:17)
[2022-07-14] MEDS: PHENYTOIN 100 MG/4 ML UDC GT SCH ×2 (08:54→20:17)
[2022-07-14] MEDS: NEOMY/BACITRA/POLYMYXIN B OINT UD PACKET TP SCH ×4 (08:55→20:21)
[2022-07-14] MEDS: REMEDY ESSENTIAL ZINC PASTE 113 GM TP SCH ×2 (08:55→20:21)
[2022-07-14] MEDS: PHENOBARBITAL 64.8 MG TABLET GT SCH ×2 (08:55→20:18)
[2022-07-14] MEDS: VITAMINS A AND D OINT 42 GM TUBE TP SCH ×3 (08:55)
[2022-07-14] MEDS: COD LIVER OIL/ZINC OXIDE OINT 113 GM TUBE TP SCH ×2 (08:55→20:21)
[2022-07-14] MEDS: CHOLECALCIFEROL 400 UNITS TABLET GT SCH ×2 (08:55→20:21)
[2022-07-14 20:00] VITALS: TEMP 97.9
[2022-07-14] MEDS: MIRALAX 17 GM POWD.PACK GT SCH (20:19)
[2022-07-15] MEDS: JEVITY 1.2 1000 ML LIQUID GT PRN (04:37)
[2022-07-15] MEDS: ARGININE/GLUTAMINE/CALCIUM BMB 1 EACH POWD.PACK GT SCH ×2 (05:11→17:51)
[2022-07-15] MEDS: ASCORBIC ACID 500 MG TABLET GT SCH (05:11)
[2022-07-15] MEDS: BACLOFEN 10 MG TABLET GT SCH ×3 (05:11→22:14)
[2022-07-15] MEDS: OMEPRAZOLE 20 MG CAPSULE.DR GT SCH ×2 (05:32→20:03)
[2022-07-15 07:17] VITALS: TEMP 97.6
[2022-07-15] MEDS: ALBUTEROL SULFATE 2.5 MG/3 ML NEBU NEB SCH ×4 (07:39→19:00)
[2022-07-15] MEDS: IPRATROPIUM BROMIDE 0.5 MG/2.5 ML NEBU NEB SCH ×4 (07:39→19:00)
[2022-07-15] MEDS: HYDROGEN PEROXIDE 3% 118 ML BOTTLE TOP SCH ×2 (08:45→19:00)
[2022-07-15] MEDS: PROTEIN SUPPLEMENT (PROSTAT) 30 ML LIQUID GT SCH (08:47)
[2022-07-15] MEDS: CULTURELLE CAPSULE GT SCH ×2 (08:47→20:02)
[2022-07-15] MEDS: PHENYTOIN 100 MG/4 ML UDC GT SCH ×2 (08:50→20:02)
[2022-07-15] MEDS: CHOLECALCIFEROL 400 UNITS TABLET GT SCH ×2 (08:51→20:03)
[2022-07-15] MEDS: COD LIVER OIL/ZINC OXIDE OINT 113 GM TUBE TP SCH ×2 (08:51→20:03)
[2022-07-15] MEDS: PHENOBARBITAL 64.8 MG TABLET GT SCH ×2 (08:51→20:02)
[2022-07-15] MEDS: NEOMY/BACITRA/POLYMYXIN B OINT UD PACKET TP SCH ×4 (08:52→20:04)
[2022-07-15] MEDS: REMEDY ESSENTIAL ZINC PASTE 113 GM TP SCH ×2 (08:52→20:04)
[2022-07-15] MEDS: VITAMINS A AND D OINT 42 GM TUBE TP SCH ×3 (08:52)
[2022-07-15 20:00] VITALS: TEMP 98.2
[2022-07-15] MEDS: MIRALAX 17 GM POWD.PACK GT SCH (20:03)
[2022-07-16] MEDS: JEVITY 1.2 1000 ML LIQUID GT PRN ×2 (00:45→22:35)
[2022-07-16] MEDS: ARGININE/GLUTAMINE/CALCIUM BMB 1 EACH POWD.PACK GT SCH ×2 (05:07→17:13)
[2022-07-16] MEDS: ASCORBIC ACID 500 MG TABLET GT SCH (05:07)
[2022-07-16] MEDS: BACLOFEN 10 MG TABLET GT SCH ×3 (05:07→22:35)
[2022-07-16] MEDS: OMEPRAZOLE 20 MG CAPSULE.DR GT SCH ×2 (05:39→20:17)
[2022-07-16 08:00] VITALS: TEMP 97.8
[2022-07-16] MEDS: IPRATROPIUM BROMIDE 0.5 MG/2.5 ML NEBU NEB SCH ×4 (08:01→19:03)
[2022-07-16] MEDS: ALBUTEROL SULFATE 2.5 MG/3 ML NEBU NEB SCH ×4 (08:01→19:03)
[2022-07-16] MEDS: HYDROGEN PEROXIDE 3% 118 ML BOTTLE TOP SCH ×2 (08:02→18:48)
[2022-07-16] MEDS: CULTURELLE CAPSULE GT SCH ×2 (08:30→20:20)
[2022-07-16] MEDS: PHENYTOIN 100 MG/4 ML UDC GT SCH ×2 (08:30→20:17)
[2022-07-16] MEDS: PROTEIN SUPPLEMENT (PROSTAT) 30 ML LIQUID GT SCH (08:30)
[2022-07-16] MEDS: PHENOBARBITAL 64.8 MG TABLET GT SCH ×2 (08:31→20:17)
[2022-07-16] MEDS: CHOLECALCIFEROL 400 UNITS TABLET GT SCH ×2 (08:32→20:17)
[2022-07-16] MEDS: REMEDY ESSENTIAL ZINC PASTE 113 GM TP SCH ×2 (08:32→20:18)
[2022-07-16] MEDS: NEOMY/BACITRA/POLYMYXIN B OINT UD PACKET TP SCH ×4 (08:32→20:18)
[2022-07-16] MEDS: COD LIVER OIL/ZINC OXIDE OINT 113 GM TUBE TP SCH ×2 (08:32→20:17)
[2022-07-16] MEDS: VITAMINS A AND D OINT 42 GM TUBE TP SCH ×3 (08:33)
[2022-07-16 20:15] VITALS: BP 138/76; TEMP 97.5; O2SAT 100
[2022-07-16] MEDS: MIRALAX 17 GM POWD.PACK GT SCH (20:17)
[2022-07-17] MEDS: ARGININE/GLUTAMINE/CALCIUM BMB 1 EACH POWD.PACK GT SCH ×2 (05:58→17:19)
[2022-07-17] MEDS: ASCORBIC ACID 500 MG TABLET GT SCH (05:58)
[2022-07-17] MEDS: BACLOFEN 10 MG TABLET GT SCH ×3 (05:58→21:29)
[2022-07-17] MEDS: OMEPRAZOLE 20 MG CAPSULE.DR GT SCH ×2 (05:58→20:32)
[2022-07-17] MEDS: ALBUTEROL SULFATE 2.5 MG/3 ML NEBU NEB SCH ×4 (07:35→19:02)
[2022-07-17] MEDS: IPRATROPIUM BROMIDE 0.5 MG/2.5 ML NEBU NEB SCH ×4 (07:35→19:02)
[2022-07-17 07:45] VITALS: TEMP 97.8
[2022-07-17] MEDS: PROTEIN SUPPLEMENT (PROSTAT) 30 ML LIQUID GT SCH (08:30)
[2022-07-17] MEDS: CULTURELLE CAPSULE GT SCH ×2 (08:30→20:31)
[2022-07-17] MEDS: PHENYTOIN 100 MG/4 ML UDC GT SCH ×2 (08:37→20:31)
[2022-07-17] MEDS: PHENOBARBITAL 64.8 MG TABLET GT SCH ×2 (08:38→20:31)
[2022-07-17] MEDS: CHOLECALCIFEROL 400 UNITS TABLET GT SCH ×2 (08:38→20:33)
[2022-07-17] MEDS: COD LIVER OIL/ZINC OXIDE OINT 113 GM TUBE TP SCH ×2 (08:40→20:33)
[2022-07-17] MEDS: VITAMINS A AND D OINT 42 GM TUBE TP SCH ×3 (08:40)
[2022-07-17] MEDS: NEOMY/BACITRA/POLYMYXIN B OINT UD PACKET TP SCH ×4 (08:40→20:33)
[2022-07-17] MEDS: REMEDY ESSENTIAL ZINC PASTE 113 GM TP SCH ×2 (08:40→20:33)
[2022-07-17] MEDS: HYDROGEN PEROXIDE 3% 118 ML BOTTLE TOP SCH ×2 (09:00→19:02)
[2022-07-17 11:15] VITALS: O2SAT 98
[2022-07-17] MEDS: MIRALAX 17 GM POWD.PACK GT SCH (20:32)
[2022-07-17] MEDS: JEVITY 1.2 1000 ML LIQUID GT PRN (21:29)
[2022-07-18 00:55] VITALS: TEMP 97.7
[2022-07-18] MEDS: ASCORBIC ACID 500 MG TABLET GT SCH (05:15)
[2022-07-18] MEDS: ARGININE/GLUTAMINE/CALCIUM BMB 1 EACH POWD.PACK GT SCH ×2 (05:15→17:15)
[2022-07-18] MEDS: BACLOFEN 10 MG TABLET GT SCH ×3 (05:15→21:06)
[2022-07-18] MEDS: OMEPRAZOLE 20 MG CAPSULE.DR GT SCH ×2 (05:30→21:06)
[2022-07-18] MEDS: HYDROGEN PEROXIDE 3% 118 ML BOTTLE TOP SCH ×2 (07:34→19:07)
[2022-07-18] MEDS: IPRATROPIUM BROMIDE 0.5 MG/2.5 ML NEBU NEB SCH ×4 (07:34→19:07)
[2022-07-18] MEDS: ALBUTEROL SULFATE 2.5 MG/3 ML NEBU NEB SCH ×4 (07:34→19:07)
[2022-07-18 07:53] VITALS: TEMP 98.3
[2022-07-18] MEDS: PROTEIN SUPPLEMENT (PROSTAT) 30 ML LIQUID GT SCH (08:31)
[2022-07-18] MEDS: PHENYTOIN 100 MG/4 ML UDC GT SCH ×2 (08:35→21:05)
[2022-07-18] MEDS: PHENOBARBITAL 64.8 MG TABLET GT SCH ×2 (08:37→21:06)
[2022-07-18] MEDS: CHOLECALCIFEROL 400 UNITS TABLET GT SCH ×2 (08:39→21:06)
[2022-07-18] MEDS: COD LIVER OIL/ZINC OXIDE OINT 113 GM TUBE TP SCH ×2 (08:39→21:06)
[2022-07-18] MEDS: VITAMINS A AND D OINT 42 GM TUBE TP SCH ×3 (08:40→08:41)
[2022-07-18] MEDS: REMEDY ESSENTIAL ZINC PASTE 113 GM TP SCH ×2 (08:40→21:06)
[2022-07-18] MEDS: NEOMY/BACITRA/POLYMYXIN B OINT UD PACKET TP SCH ×3 (08:40→21:06)
[2022-07-18] MEDS: CULTURELLE CAPSULE GT SCH ×2 (08:41→21:05)
[2022-07-18 20:00] VITALS: TEMP 98
[2022-07-18] MEDS: MIRALAX 17 GM POWD.PACK GT SCH (21:06)
[2022-07-19] MEDS: JEVITY 1.2 1000 ML LIQUID GT PRN (00:05)
[2022-07-19] MEDS: ARGININE/GLUTAMINE/CALCIUM BMB 1 EACH POWD.PACK GT SCH ×2 (05:56→17:31)
[2022-07-19] MEDS: ASCORBIC ACID 500 MG TABLET GT SCH (05:56)
[2022-07-19] MEDS: OMEPRAZOLE 20 MG CAPSULE.DR GT SCH ×2 (05:56→21:30)
[2022-07-19] MEDS: BACLOFEN 10 MG TABLET GT SCH ×3 (05:56→21:30)
[2022-07-19] MEDS: ALBUTEROL SULFATE 2.5 MG/3 ML NEBU NEB SCH ×4 (07:05→19:16)
[2022-07-19] MEDS: IPRATROPIUM BROMIDE 0.5 MG/2.5 ML NEBU NEB SCH ×4 (07:05→19:16)
[2022-07-19] MEDS: HYDROGEN PEROXIDE 3% 118 ML BOTTLE TOP SCH ×2 (07:05→19:16)
[2022-07-19 07:31] VITALS: TEMP 98.3
[2022-07-19] MEDS: PROTEIN SUPPLEMENT (PROSTAT) 30 ML LIQUID GT SCH (08:35)
[2022-07-19] MEDS: CULTURELLE CAPSULE GT SCH ×2 (08:37→21:30)
[2022-07-19] MEDS: PHENYTOIN 100 MG/4 ML UDC GT SCH ×2 (08:39→21:30)
[2022-07-19] MEDS: PHENOBARBITAL 64.8 MG TABLET GT SCH ×2 (08:39→21:30)
[2022-07-19] MEDS: CHOLECALCIFEROL 400 UNITS TABLET GT SCH ×2 (08:41→21:30)
[2022-07-19] MEDS: REMEDY ESSENTIAL ZINC PASTE 113 GM TP SCH ×2 (08:41→21:30)
[2022-07-19] MEDS: NEOMY/BACITRA/POLYMYXIN B OINT UD PACKET TP SCH ×2 (09:00→21:30)
[2022-07-19] MEDS: VITAMINS A AND D OINT 42 GM TUBE TP SCH ×3 (09:00)
[2022-07-19] MEDS: COD LIVER OIL/ZINC OXIDE OINT 113 GM TUBE TP SCH ×2 (09:00→21:30)
[2022-07-19 20:00] VITALS: TEMP 98
[2022-07-19] MEDS: MIRALAX 17 GM POWD.PACK GT SCH (21:30)
[2022-07-20] MEDS: JEVITY 1.2 1000 ML LIQUID GT PRN (02:26)
[2022-07-20] MEDS: ASCORBIC ACID 500 MG TABLET GT SCH (05:36)
[2022-07-20] MEDS: ARGININE/GLUTAMINE/CALCIUM BMB 1 EACH POWD.PACK GT SCH ×2 (05:36→17:11)
[2022-07-20] MEDS: OMEPRAZOLE 20 MG CAPSULE.DR GT SCH ×2 (05:36→21:06)
[2022-07-20] MEDS: BACLOFEN 10 MG TABLET GT SCH ×3 (05:36→21:07)
[2022-07-20] MEDS: ALBUTEROL SULFATE 2.5 MG/3 ML NEBU NEB SCH ×4 (07:35→19:01)
[2022-07-20] MEDS: IPRATROPIUM BROMIDE 0.5 MG/2.5 ML NEBU NEB SCH ×4 (07:35→19:01)
[2022-07-20 07:39] VITALS: TEMP 98.6
[2022-07-20] MEDS: PHENYTOIN 100 MG/4 ML UDC GT SCH ×2 (08:24→21:06)
[2022-07-20] MEDS: PROTEIN SUPPLEMENT (PROSTAT) 30 ML LIQUID GT SCH (08:24)
[2022-07-20] MEDS: CULTURELLE CAPSULE GT SCH ×2 (08:24→21:06)
[2022-07-20] MEDS: PHENOBARBITAL 64.8 MG TABLET GT SCH ×2 (08:26→21:06)
[2022-07-20] MEDS: COD LIVER OIL/ZINC OXIDE OINT 113 GM TUBE TP SCH ×2 (08:27→21:06)
[2022-07-20] MEDS: CHOLECALCIFEROL 400 UNITS TABLET GT SCH ×2 (08:27→21:06)
[2022-07-20] MEDS: NEOMY/BACITRA/POLYMYXIN B OINT UD PACKET TP SCH ×2 (08:28→21:06)
[2022-07-20] MEDS: VITAMINS A AND D OINT 42 GM TUBE TP SCH ×3 (08:28)
[2022-07-20] MEDS: REMEDY ESSENTIAL ZINC PASTE 113 GM TP SCH ×2 (08:28→21:06)
[2022-07-20] MEDS: HYDROGEN PEROXIDE 3% 118 ML BOTTLE TOP SCH ×2 (08:52→19:01)
[2022-07-20 20:00] VITALS: TEMP 98.6
[2022-07-20] MEDS: MIRALAX 17 GM POWD.PACK GT SCH (21:06)
[2022-07-21] MEDS: JEVITY 1.2 1000 ML LIQUID GT PRN (00:10)
[2022-07-21] MEDS ORDERED: NEOMY/BACITRAC/POLYMI OINT 28.35 GM TUBE TOP SCH (05:00)
[2022-07-21] MEDS: BACLOFEN 10 MG TABLET GT SCH ×3 (05:42→21:24)
[2022-07-21] MEDS: OMEPRAZOLE 20 MG CAPSULE.DR GT SCH ×2 (05:42→21:24)
[2022-07-21] MEDS: ASCORBIC ACID 500 MG TABLET GT SCH (05:42)
[2022-07-21] MEDS: ARGININE/GLUTAMINE/CALCIUM BMB 1 EACH POWD.PACK GT SCH ×2 (05:42→17:44)
[2022-07-21] MEDS: IPRATROPIUM BROMIDE 0.5 MG/2.5 ML NEBU NEB SCH ×4 (07:23→19:35)
[2022-07-21] MEDS: ALBUTEROL SULFATE 2.5 MG/3 ML NEBU NEB SCH ×4 (07:23→19:35)
[2022-07-21] MEDS: HYDROGEN PEROXIDE 3% 118 ML BOTTLE TOP SCH ×2 (07:23→20:56)
[2022-07-21 07:55] VITALS: TEMP 97.5
[2022-07-21] MEDS: PROTEIN SUPPLEMENT (PROSTAT) 30 ML LIQUID GT SCH (08:43)
[2022-07-21] MEDS: CULTURELLE CAPSULE GT SCH ×2 (08:45→21:24)
[2022-07-21] MEDS: PHENYTOIN 100 MG/4 ML UDC GT SCH ×2 (09:08→21:24)
[2022-07-21] MEDS: PHENOBARBITAL 64.8 MG TABLET GT SCH ×2 (09:13→21:24)
[2022-07-21] MEDS: CHOLECALCIFEROL 400 UNITS TABLET GT SCH ×2 (09:14→21:24)
[2022-07-21] MEDS: REMEDY ESSENTIAL ZINC PASTE 113 GM TP SCH ×2 (09:15→21:09)
[2022-07-21] MEDS: NEOMY/BACITRA/POLYMYXIN B OINT UD PACKET TP SCH ×4 (09:15→21:09)
[2022-07-21] MEDS: COD LIVER OIL/ZINC OXIDE OINT 113 GM TUBE TP SCH ×2 (09:15→21:09)
[2022-07-21] MEDS: VITAMINS A AND D OINT 42 GM TUBE TP SCH ×3 (09:17)
[2022-07-21 21:02] VITALS: TEMP 98.5
[2022-07-21] MEDS: MIRALAX 17 GM POWD.PACK GT SCH (21:24)
[2022-07-22] MEDS: OMEPRAZOLE 20 MG CAPSULE.DR GT SCH ×2 (06:17→20:03)
[2022-07-22] MEDS: BACLOFEN 10 MG TABLET GT SCH ×3 (06:17→22:00)
[2022-07-22] MEDS: ARGININE/GLUTAMINE/CALCIUM BMB 1 EACH POWD.PACK GT SCH ×2 (06:17→17:07)
[2022-07-22] MEDS: ASCORBIC ACID 500 MG TABLET GT SCH (06:17)
[2022-07-22] MEDS: ALBUTEROL SULFATE 2.5 MG/3 ML NEBU NEB SCH ×4 (07:15→19:01)
[2022-07-22] MEDS: IPRATROPIUM BROMIDE 0.5 MG/2.5 ML NEBU NEB SCH ×4 (07:15→19:01)
[2022-07-22 07:27] VITALS: TEMP 97.7
[2022-07-22] MEDS: NEOMY/BACITRA/POLYMYXIN B OINT UD PACKET TP SCH ×4 (08:39→20:04)
[2022-07-22] MEDS: PHENOBARBITAL 64.8 MG TABLET GT SCH ×2 (08:39→20:03)
[2022-07-22] MEDS: PROTEIN SUPPLEMENT (PROSTAT) 30 ML LIQUID GT SCH (08:39)
[2022-07-22] MEDS: CHOLECALCIFEROL 400 UNITS TABLET GT SCH ×2 (08:39→20:03)
[2022-07-22] MEDS: COD LIVER OIL/ZINC OXIDE OINT 113 GM TUBE TP SCH ×2 (08:39→20:04)
[2022-07-22] MEDS: CULTURELLE CAPSULE GT SCH ×2 (08:39→20:03)
[2022-07-22] MEDS: VITAMINS A AND D OINT 42 GM TUBE TP SCH ×3 (08:39→08:40)
[2022-07-22] MEDS: PHENYTOIN 100 MG/4 ML UDC GT SCH ×2 (08:39→20:03)
[2022-07-22] MEDS: HYDROGEN PEROXIDE 3% 118 ML BOTTLE TOP SCH ×2 (09:00→19:01)
[2022-07-22] MEDS: REMEDY ESSENTIAL ZINC PASTE 113 GM TP SCH ×2 (09:00→20:04)
[2022-07-22] MEDS: MIRALAX 17 GM POWD.PACK GT SCH (20:03)
[2022-07-22 20:13] VITALS: TEMP 98.2
[2022-07-23] MEDS: ARGININE/GLUTAMINE/CALCIUM BMB 1 EACH POWD.PACK GT SCH ×2 (05:02→17:13)
[2022-07-23] MEDS: ASCORBIC ACID 500 MG TABLET GT SCH (05:02)
[2022-07-23] MEDS: JEVITY 1.2 1000 ML LIQUID GT PRN (05:02)
[2022-07-23] MEDS: BACLOFEN 10 MG TABLET GT SCH ×3 (05:02→21:00)
[2022-07-23 07:19] VITALS: TEMP 97.6
[2022-07-23] MEDS: HYDROGEN PEROXIDE 3% 118 ML BOTTLE TOP SCH ×2 (07:30→19:12)
[2022-07-23] MEDS: ALBUTEROL SULFATE 2.5 MG/3 ML NEBU NEB SCH ×4 (07:30→19:12)
[2022-07-23] MEDS: IPRATROPIUM BROMIDE 0.5 MG/2.5 ML NEBU NEB SCH ×4 (07:30→19:12)
[2022-07-23] MEDS: PROTEIN SUPPLEMENT (PROSTAT) 30 ML LIQUID GT SCH (08:27)
[2022-07-23] MEDS: PHENYTOIN 100 MG/4 ML UDC GT SCH ×2 (08:28→20:59)
[2022-07-23] MEDS: CULTURELLE CAPSULE GT SCH ×2 (08:28→20:58)
[2022-07-23] MEDS: REMEDY ESSENTIAL ZINC PASTE 113 GM TP SCH ×2 (08:30→20:59)
[2022-07-23] MEDS: CHOLECALCIFEROL 400 UNITS TABLET GT SCH ×2 (08:30→20:59)
[2022-07-23] MEDS: COD LIVER OIL/ZINC OXIDE OINT 113 GM TUBE TP SCH ×2 (08:30→20:59)
[2022-07-23] MEDS: PHENOBARBITAL 64.8 MG TABLET GT SCH ×2 (08:30→20:59)
[2022-07-23] MEDS: VITAMINS A AND D OINT 42 GM TUBE TP SCH ×3 (08:31)
[2022-07-23] MEDS: NEOMY/BACITRA/POLYMYXIN B OINT UD PACKET TP SCH ×2 (09:00→20:59)
[2022-07-23 19:45] VITALS: TEMP 98.5
[2022-07-23] MEDS: OMEPRAZOLE 20 MG CAPSULE.DR GT SCH ×2 (20:58→21:00)
[2022-07-23] MEDS: MIRALAX 17 GM POWD.PACK GT SCH (20:59)
[2022-07-24] MEDS: ASCORBIC ACID 500 MG TABLET GT SCH (05:09)
[2022-07-24] MEDS: BACLOFEN 10 MG TABLET GT SCH ×3 (05:09→21:09)
[2022-07-24] MEDS: ARGININE/GLUTAMINE/CALCIUM BMB 1 EACH POWD.PACK GT SCH ×2 (05:09→17:05)
[2022-07-24] MEDS: OMEPRAZOLE 20 MG CAPSULE.DR GT SCH ×2 (05:43→20:40)
[2022-07-24] MEDS: IPRATROPIUM BROMIDE 0.5 MG/2.5 ML NEBU NEB SCH ×4 (07:15→18:50)
[2022-07-24] MEDS: ALBUTEROL SULFATE 2.5 MG/3 ML NEBU NEB SCH ×4 (07:15→18:50)
[2022-07-24 07:46] VITALS: TEMP 97.7
[2022-07-24] MEDS: HYDROGEN PEROXIDE 3% 118 ML BOTTLE TOP SCH ×2 (08:08→18:51)
[2022-07-24] MEDS: PROTEIN SUPPLEMENT (PROSTAT) 30 ML LIQUID GT SCH (08:32)
[2022-07-24] MEDS: CULTURELLE CAPSULE GT SCH ×2 (08:33→20:50)
[2022-07-24] MEDS: REMEDY ESSENTIAL ZINC PASTE 113 GM TP SCH ×2 (08:36→20:42)
[2022-07-24] MEDS: CHOLECALCIFEROL 400 UNITS TABLET GT SCH ×2 (08:36→20:40)
[2022-07-24] MEDS: PHENYTOIN 100 MG/4 ML UDC GT SCH ×2 (08:36→20:42)
[2022-07-24] MEDS: COD LIVER OIL/ZINC OXIDE OINT 113 GM TUBE TP SCH ×2 (08:36→20:42)
[2022-07-24] MEDS: PHENOBARBITAL 64.8 MG TABLET GT SCH ×2 (08:36→20:48)
[2022-07-24] MEDS: VITAMINS A AND D OINT 42 GM TUBE TP SCH ×3 (08:37)
[2022-07-24] MEDS: NEOMY/BACITRA/POLYMYXIN B OINT UD PACKET TP SCH ×2 (09:00→20:43)
[2022-07-24 20:00] VITALS: TEMP 98
[2022-07-24] MEDS: MIRALAX 17 GM POWD.PACK GT SCH (20:48)
[2022-07-24] MEDS: JEVITY 1.2 1000 ML LIQUID GT PRN (23:45)
[2022-07-25] MEDS: JEVITY 1.2 1000 ML LIQUID GT PRN ×2 (03:26→17:03)
[2022-07-25] MEDS: ASCORBIC ACID 500 MG TABLET GT SCH (05:03)
[2022-07-25] MEDS: ARGININE/GLUTAMINE/CALCIUM BMB 1 EACH POWD.PACK GT SCH ×2 (05:03→17:34)
[2022-07-25] MEDS: BACLOFEN 10 MG TABLET GT SCH ×3 (05:03→22:00)
[2022-07-25] MEDS: OMEPRAZOLE 20 MG CAPSULE.DR GT SCH ×2 (05:03→20:54)
[2022-07-25] MEDS: ALBUTEROL SULFATE 2.5 MG/3 ML NEBU NEB SCH ×5 (07:34→19:15)
[2022-07-25] MEDS: IPRATROPIUM BROMIDE 0.5 MG/2.5 ML NEBU NEB SCH ×5 (07:34→19:15)
[2022-07-25] MEDS: HYDROGEN PEROXIDE 3% 118 ML BOTTLE TOP SCH ×2 (07:34→19:15)
[2022-07-25 08:00] VITALS: TEMP 97.6
[2022-07-25] MEDS: PROTEIN SUPPLEMENT (PROSTAT) 30 ML LIQUID GT SCH (08:26)
[2022-07-25] MEDS: CULTURELLE CAPSULE GT SCH ×2 (08:28→20:45)
[2022-07-25] MEDS: PHENYTOIN 100 MG/4 ML UDC GT SCH ×2 (08:29→20:54)
[2022-07-25] MEDS: PHENOBARBITAL 64.8 MG TABLET GT SCH ×2 (08:29→20:54)
[2022-07-25] MEDS: VITAMINS A AND D OINT 42 GM TUBE TP SCH ×3 (08:30)
[2022-07-25] MEDS: COD LIVER OIL/ZINC OXIDE OINT 113 GM TUBE TP SCH ×2 (08:30→20:55)
[2022-07-25] MEDS: REMEDY ESSENTIAL ZINC PASTE 113 GM TP SCH ×2 (08:30→20:55)
[2022-07-25] MEDS: CHOLECALCIFEROL 400 UNITS TABLET GT SCH ×2 (08:30→20:54)
[2022-07-25] MEDS: NEOMY/BACITRA/POLYMYXIN B OINT UD PACKET TP SCH ×2 (08:30→20:55)
[2022-07-25 20:00] VITALS: TEMP 98
[2022-07-25] MEDS: MIRALAX 17 GM POWD.PACK GT SCH (20:54)
[2022-07-26] MEDS: BACLOFEN 10 MG TABLET GT SCH ×3 (06:14→21:46)
[2022-07-26] MEDS: ARGININE/GLUTAMINE/CALCIUM BMB 1 EACH POWD.PACK GT SCH ×2 (06:14→17:31)
[2022-07-26] MEDS: OMEPRAZOLE 20 MG CAPSULE.DR GT SCH ×2 (06:14→20:41)
[2022-07-26] MEDS: ASCORBIC ACID 500 MG TABLET GT SCH (06:14)
[2022-07-26 07:53] VITALS: TEMP 98.2
[2022-07-26] MEDS: ALBUTEROL SULFATE 2.5 MG/3 ML NEBU NEB SCH ×4 (08:24→18:55)
[2022-07-26] MEDS: HYDROGEN PEROXIDE 3% 118 ML BOTTLE TOP SCH ×2 (08:24→18:56)
[2022-07-26] MEDS: IPRATROPIUM BROMIDE 0.5 MG/2.5 ML NEBU NEB SCH ×4 (08:24→18:55)
[2022-07-26] MEDS: PHENYTOIN 100 MG/4 ML UDC GT SCH ×2 (08:35→20:41)
[2022-07-26] MEDS: REMEDY ESSENTIAL ZINC PASTE 113 GM TP SCH ×2 (08:35→20:48)
[2022-07-26] MEDS: VITAMINS A AND D OINT 42 GM TUBE TP SCH ×3 (08:35→08:37)
[2022-07-26] MEDS: CHOLECALCIFEROL 400 UNITS TABLET GT SCH ×2 (08:35→20:41)
[2022-07-26] MEDS: PROTEIN SUPPLEMENT (PROSTAT) 30 ML LIQUID GT SCH (08:35)
[2022-07-26] MEDS: CULTURELLE CAPSULE GT SCH ×2 (08:35→20:48)
[2022-07-26] MEDS: PHENOBARBITAL 64.8 MG TABLET GT SCH ×2 (08:35→20:41)
[2022-07-26] MEDS: NEOMY/BACITRA/POLYMYXIN B OINT UD PACKET TP SCH ×2 (08:35→20:48)
[2022-07-26] MEDS: COD LIVER OIL/ZINC OXIDE OINT 113 GM TUBE TP SCH ×2 (08:35→20:48)
[2022-07-26 20:00] VITALS: TEMP 98
[2022-07-26] MEDS: MIRALAX 17 GM POWD.PACK GT SCH (20:41)
[2022-07-27] MEDS: ASCORBIC ACID 500 MG TABLET GT SCH (05:14)
[2022-07-27] MEDS: BACLOFEN 10 MG TABLET GT SCH ×3 (05:14→22:00)
[2022-07-27] MEDS: ARGININE/GLUTAMINE/CALCIUM BMB 1 EACH POWD.PACK GT SCH ×2 (05:14→17:30)
[2022-07-27] MEDS: OMEPRAZOLE 20 MG CAPSULE.DR GT SCH ×2 (06:09→21:10)
[2022-07-27] MEDS: IPRATROPIUM BROMIDE 0.5 MG/2.5 ML NEBU NEB SCH ×4 (07:10→19:11)
[2022-07-27] MEDS: ALBUTEROL SULFATE 2.5 MG/3 ML NEBU NEB SCH ×4 (07:10→19:11)
[2022-07-27 07:43] VITALS: TEMP 98.2
[2022-07-27] MEDS: HYDROGEN PEROXIDE 3% 118 ML BOTTLE TOP SCH ×2 (08:20→19:11)
[2022-07-27] MEDS: PROTEIN SUPPLEMENT (PROSTAT) 30 ML LIQUID GT SCH (08:46)
[2022-07-27] MEDS: PHENYTOIN 100 MG/4 ML UDC GT SCH ×2 (08:51→21:09)
[2022-07-27] MEDS: CULTURELLE CAPSULE GT SCH ×2 (08:51→21:09)
[2022-07-27] MEDS: PHENOBARBITAL 64.8 MG TABLET GT SCH ×2 (08:53→21:09)
[2022-07-27] MEDS: CHOLECALCIFEROL 400 UNITS TABLET GT SCH ×2 (08:53→21:10)
[2022-07-27] MEDS: REMEDY ESSENTIAL ZINC PASTE 113 GM TP SCH ×2 (08:53→21:10)
[2022-07-27] MEDS: COD LIVER OIL/ZINC OXIDE OINT 113 GM TUBE TP SCH ×2 (08:53→21:10)
[2022-07-27] MEDS: NEOMY/BACITRA/POLYMYXIN B OINT UD PACKET TP SCH ×2 (08:54→21:10)
[2022-07-27] MEDS: VITAMINS A AND D OINT 42 GM TUBE TP SCH ×3 (08:54)
[2022-07-27 20:00] VITALS: TEMP 98
[2022-07-27] MEDS: MIRALAX 17 GM POWD.PACK GT SCH (21:09)
[2022-07-27] MEDS: COD LIVER OIL/ZINC OXIDE OINT 113 GM TUBE TOP SCH (23:45)
[2022-07-28] MEDS: ARGININE/GLUTAMINE/CALCIUM BMB 1 EACH POWD.PACK GT SCH ×2 (05:10→17:40)
[2022-07-28] MEDS: BACLOFEN 10 MG TABLET GT SCH ×3 (05:10→21:54)
[2022-07-28] MEDS: ASCORBIC ACID 500 MG TABLET GT SCH (05:11)
[2022-07-28] MEDS: OMEPRAZOLE 20 MG CAPSULE.DR GT SCH ×2 (05:11→20:20)
[2022-07-28] MEDS: IPRATROPIUM BROMIDE 0.5 MG/2.5 ML NEBU NEB SCH ×4 (06:03→19:34)
[2022-07-28] MEDS: ALBUTEROL SULFATE 2.5 MG/3 ML NEBU NEB SCH ×4 (06:03→19:34)
[2022-07-28 07:23] VITALS: TEMP 97.8
[2022-07-28] MEDS: VITAMINS A AND D OINT 42 GM TUBE TP SCH ×3 (08:13)
[2022-07-28] MEDS: COD LIVER OIL/ZINC OXIDE OINT 113 GM TUBE TOP SCH ×2 (08:13→20:21)
[2022-07-28] MEDS: REMEDY ESSENTIAL ZINC PASTE 113 GM TP SCH ×2 (08:13→20:21)
[2022-07-28] MEDS: CHOLECALCIFEROL 400 UNITS TABLET GT SCH ×2 (08:13→20:21)
[2022-07-28] MEDS: CULTURELLE CAPSULE GT SCH ×2 (08:13→20:19)
[2022-07-28] MEDS: PHENYTOIN 100 MG/4 ML UDC GT SCH ×2 (08:13→20:19)
[2022-07-28] MEDS: PROTEIN SUPPLEMENT (PROSTAT) 30 ML LIQUID GT SCH (08:13)
[2022-07-28] MEDS: PHENOBARBITAL 64.8 MG TABLET GT SCH ×2 (08:13→20:20)
[2022-07-28] MEDS: COD LIVER OIL/ZINC OXIDE OINT 113 GM TUBE TP SCH ×2 (08:13→20:21)
[2022-07-28] MEDS: HYDROGEN PEROXIDE 3% 118 ML BOTTLE TOP SCH ×2 (11:22→19:34)
[2022-07-28] MEDS: JEVITY 1.2 1000 ML LIQUID GT PRN (17:41)
[2022-07-28 20:00] VITALS: TEMP 98.4
[2022-07-28] MEDS: MIRALAX 17 GM POWD.PACK GT SCH (20:20)
[2022-07-29] MEDS: ASCORBIC ACID 500 MG TABLET GT SCH (05:31)
[2022-07-29] MEDS: BACLOFEN 10 MG TABLET GT SCH ×3 (05:31→22:07)
[2022-07-29] MEDS: OMEPRAZOLE 20 MG CAPSULE.DR GT SCH ×2 (05:31→20:10)
[2022-07-29] MEDS: ARGININE/GLUTAMINE/CALCIUM BMB 1 EACH POWD.PACK GT SCH ×2 (05:31→17:53)
[2022-07-29 07:22] VITALS: TEMP 97.6
[2022-07-29] MEDS: IPRATROPIUM BROMIDE 0.5 MG/2.5 ML NEBU NEB SCH ×4 (07:22→18:56)
[2022-07-29] MEDS: HYDROGEN PEROXIDE 3% 118 ML BOTTLE TOP SCH ×2 (07:22→18:56)
[2022-07-29] MEDS: ALBUTEROL SULFATE 2.5 MG/3 ML NEBU NEB SCH ×4 (07:22→18:56)
[2022-07-29] MEDS: COD LIVER OIL/ZINC OXIDE OINT 113 GM TUBE TOP SCH ×2 (08:16→20:11)
[2022-07-29] MEDS: PROTEIN SUPPLEMENT (PROSTAT) 30 ML LIQUID GT SCH (08:16)
[2022-07-29] MEDS: PHENOBARBITAL 64.8 MG TABLET GT SCH ×2 (08:16→20:10)
[2022-07-29] MEDS: PHENYTOIN 100 MG/4 ML UDC GT SCH ×2 (08:16→20:10)
[2022-07-29] MEDS: CHOLECALCIFEROL 400 UNITS TABLET GT SCH ×2 (08:16→20:10)
[2022-07-29] MEDS: CULTURELLE CAPSULE GT SCH ×2 (08:16→20:10)
[2022-07-29] MEDS: REMEDY ESSENTIAL ZINC PASTE 113 GM TP SCH ×2 (08:17→20:11)
[2022-07-29] MEDS: COD LIVER OIL/ZINC OXIDE OINT 113 GM TUBE TP SCH ×2 (08:17→20:11)
[2022-07-29] MEDS: VITAMINS A AND D OINT 42 GM TUBE TP SCH ×3 (08:17)
[2022-07-29] MEDS: JEVITY 1.2 1000 ML LIQUID GT PRN (17:53)
[2022-07-29 20:00] VITALS: TEMP 98
[2022-07-29] MEDS: MIRALAX 17 GM POWD.PACK GT SCH (20:10)
[2022-07-30] MEDS: ARGININE/GLUTAMINE/CALCIUM BMB 1 EACH POWD.PACK GT SCH ×2 (05:03→18:38)
[2022-07-30] MEDS: BACLOFEN 10 MG TABLET GT SCH ×3 (05:03→22:39)
[2022-07-30] MEDS: ASCORBIC ACID 500 MG TABLET GT SCH (05:03)
[2022-07-30] MEDS: OMEPRAZOLE 20 MG CAPSULE.DR GT SCH ×2 (06:30→20:01)
[2022-07-30 07:22] VITALS: TEMP 97.6
[2022-07-30] MEDS: IPRATROPIUM BROMIDE 0.5 MG/2.5 ML NEBU NEB SCH ×4 (07:35→18:50)
[2022-07-30] MEDS: ALBUTEROL SULFATE 2.5 MG/3 ML NEBU NEB SCH ×4 (07:35→18:50)
[2022-07-30] MEDS: HYDROGEN PEROXIDE 3% 118 ML BOTTLE TOP SCH ×2 (07:35→18:50)
[2022-07-30] MEDS: PROTEIN SUPPLEMENT (PROSTAT) 30 ML LIQUID GT SCH (08:00)
[2022-07-30] MEDS: COD LIVER OIL/ZINC OXIDE OINT 113 GM TUBE TOP SCH ×2 (09:00→20:01)
[2022-07-30] MEDS: VITAMINS A AND D OINT 42 GM TUBE TP SCH ×3 (09:00)
[2022-07-30] MEDS: COD LIVER OIL/ZINC OXIDE OINT 113 GM TUBE TP SCH ×2 (09:00→20:01)
[2022-07-30] MEDS: REMEDY ESSENTIAL ZINC PASTE 113 GM TP SCH ×2 (09:00→20:01)
[2022-07-30] MEDS: PHENOBARBITAL 64.8 MG TABLET GT SCH ×2 (09:21→20:01)
[2022-07-30] MEDS: CHOLECALCIFEROL 400 UNITS TABLET GT SCH ×2 (09:21→20:01)
[2022-07-30] MEDS: PHENYTOIN 100 MG/4 ML UDC GT SCH ×2 (09:21→20:01)
[2022-07-30] MEDS: CULTURELLE CAPSULE GT SCH ×2 (09:21→20:01)
[2022-07-30] MEDS: JEVITY 1.2 1000 ML LIQUID GT PRN (18:46)
[2022-07-30 20:00] VITALS: TEMP 97.8
[2022-07-30] MEDS: MIRALAX 17 GM POWD.PACK GT SCH (20:01)
[2022-07-31] MEDS: BACLOFEN 10 MG TABLET GT SCH ×3 (05:16→21:44)
[2022-07-31] MEDS: ARGININE/GLUTAMINE/CALCIUM BMB 1 EACH POWD.PACK GT SCH ×2 (05:16→16:51)
[2022-07-31] MEDS: ASCORBIC ACID 500 MG TABLET GT SCH (05:16)
[2022-07-31] MEDS: OMEPRAZOLE 20 MG CAPSULE.DR GT SCH ×2 (06:02→20:24)
[2022-07-31 07:33] VITALS: TEMP 97.4
[2022-07-31] MEDS: ALBUTEROL SULFATE 2.5 MG/3 ML NEBU NEB SCH ×4 (07:50→19:00)
[2022-07-31] MEDS: IPRATROPIUM BROMIDE 0.5 MG/2.5 ML NEBU NEB SCH ×4 (07:50→19:00)
[2022-07-31] MEDS: CULTURELLE CAPSULE GT SCH ×2 (08:36→20:24)
[2022-07-31] MEDS: PROTEIN SUPPLEMENT (PROSTAT) 30 ML LIQUID GT SCH (08:36)
[2022-07-31] MEDS: PHENYTOIN 100 MG/4 ML UDC GT SCH ×2 (08:38→20:24)
[2022-07-31] MEDS: PHENOBARBITAL 64.8 MG TABLET GT SCH ×2 (08:39→20:24)
[2022-07-31] MEDS: CHOLECALCIFEROL 400 UNITS TABLET GT SCH ×2 (08:40→20:24)
[2022-07-31] MEDS: COD LIVER OIL/ZINC OXIDE OINT 113 GM TUBE TOP SCH ×2 (08:42→20:24)
[2022-07-31] MEDS: VITAMINS A AND D OINT 42 GM TUBE TP SCH ×3 (08:42→08:43)
[2022-07-31] MEDS: REMEDY ESSENTIAL ZINC PASTE 113 GM TP SCH ×2 (08:42→20:25)
[2022-07-31] MEDS: COD LIVER OIL/ZINC OXIDE OINT 113 GM TUBE TP SCH ×2 (08:42→20:24)
[2022-07-31] MEDS: HYDROGEN PEROXIDE 3% 118 ML BOTTLE TOP SCH ×2 (09:25→19:00)
[2022-07-31] MEDS: JEVITY 1.2 1000 ML LIQUID GT PRN (16:47)
[2022-07-31 20:00] VITALS: TEMP 98.4
[2022-07-31] MEDS: MIRALAX 17 GM POWD.PACK GT SCH (20:24)
[2022-08-01] MEDS: ARGININE/GLUTAMINE/CALCIUM BMB 1 EACH POWD.PACK GT SCH ×2 (05:07→17:30)
[2022-08-01] MEDS: ASCORBIC ACID 500 MG TABLET GT SCH (05:08)
[2022-08-01] MEDS: BACLOFEN 10 MG TABLET GT SCH ×3 (05:08→22:31)
[2022-08-01] MEDS: OMEPRAZOLE 20 MG CAPSULE.DR GT SCH ×2 (05:39→21:00)
[2022-08-01 07:43] VITALS: TEMP 97.7
[2022-08-01] MEDS: ALBUTEROL SULFATE 2.5 MG/3 ML NEBU NEB SCH ×4 (08:07→19:12)
[2022-08-01] MEDS: IPRATROPIUM BROMIDE 0.5 MG/2.5 ML NEBU NEB SCH ×4 (08:07→19:11)
[2022-08-01] MEDS: HYDROGEN PEROXIDE 3% 118 ML BOTTLE TOP SCH ×2 (08:07→19:12)
[2022-08-01] MEDS: PROTEIN SUPPLEMENT (PROSTAT) 30 ML LIQUID GT SCH (08:50)
[2022-08-01] MEDS: CULTURELLE CAPSULE GT SCH ×2 (08:51→22:25)
[2022-08-01] MEDS: PHENYTOIN 100 MG/4 ML UDC GT SCH ×2 (08:52→21:00)
[2022-08-01] MEDS: COD LIVER OIL/ZINC OXIDE OINT 113 GM TUBE TOP SCH ×2 (08:53→21:00)
[2022-08-01] MEDS: COD LIVER OIL/ZINC OXIDE OINT 113 GM TUBE TP SCH ×2 (08:53→21:00)
[2022-08-01] MEDS: CHOLECALCIFEROL 400 UNITS TABLET GT SCH ×2 (08:53→21:00)
[2022-08-01] MEDS: PHENOBARBITAL 64.8 MG TABLET GT SCH ×2 (08:53→21:00)
[2022-08-01] MEDS: VITAMINS A AND D OINT 42 GM TUBE TP SCH ×3 (08:54)
[2022-08-01] MEDS: REMEDY ESSENTIAL ZINC PASTE 113 GM TP SCH ×2 (08:54→21:00)
[2022-08-01] MEDS: JEVITY 1.2 1000 ML LIQUID GT PRN (16:41)
[2022-08-01 20:00] VITALS: TEMP 98.2
[2022-08-01] MEDS: MIRALAX 17 GM POWD.PACK GT SCH (21:00)
[2022-08-02] MEDS: OMEPRAZOLE 20 MG CAPSULE.DR GT SCH ×2 (06:33→20:33)
[2022-08-02] MEDS: ARGININE/GLUTAMINE/CALCIUM BMB 1 EACH POWD.PACK GT SCH ×2 (06:33→18:10)
[2022-08-02] MEDS: BACLOFEN 10 MG TABLET GT SCH ×3 (06:33→22:00)
[2022-08-02] MEDS: ASCORBIC ACID 500 MG TABLET GT SCH (06:33)
[2022-08-02] MEDS: ALBUTEROL SULFATE 2.5 MG/3 ML NEBU NEB SCH ×4 (07:35→17:50)
[2022-08-02] MEDS: IPRATROPIUM BROMIDE 0.5 MG/2.5 ML NEBU NEB SCH ×4 (07:35→17:50)
[2022-08-02 07:38] VITALS: TEMP 97.9
[2022-08-02] MEDS: PROTEIN SUPPLEMENT (PROSTAT) 30 ML LIQUID GT SCH (08:27)
[2022-08-02] MEDS: CULTURELLE CAPSULE GT SCH ×2 (08:29→20:32)
[2022-08-02] MEDS: PHENYTOIN 100 MG/4 ML UDC GT SCH ×2 (08:29→20:32)
[2022-08-02] MEDS: CHOLECALCIFEROL 400 UNITS TABLET GT SCH ×2 (08:32→20:33)
[2022-08-02] MEDS: COD LIVER OIL/ZINC OXIDE OINT 113 GM TUBE TOP SCH ×2 (08:32→20:33)
[2022-08-02] MEDS: PHENOBARBITAL 64.8 MG TABLET GT SCH ×2 (08:32→20:33)
[2022-08-02] MEDS: VITAMINS A AND D OINT 42 GM TUBE TP SCH ×3 (08:33→08:37)
[2022-08-02] MEDS: REMEDY ESSENTIAL ZINC PASTE 113 GM TP SCH ×2 (08:33→20:33)
[2022-08-02] MEDS: COD LIVER OIL/ZINC OXIDE OINT 113 GM TUBE TP SCH ×2 (08:33→20:33)
[2022-08-02] MEDS: HYDROGEN PEROXIDE 3% 118 ML BOTTLE TOP SCH ×2 (09:00→18:19)
[2022-08-02] MEDS: JEVITY 1.2 1000 ML LIQUID GT PRN (18:10)
[2022-08-02] MEDS: MIRALAX 17 GM POWD.PACK GT SCH (20:33)
[2022-08-02 22:53] VITALS: TEMP 97.9
[2022-08-03] MEDS: OMEPRAZOLE 20 MG CAPSULE.DR GT SCH ×2 (06:41→21:15)
[2022-08-03] MEDS: ARGININE/GLUTAMINE/CALCIUM BMB 1 EACH POWD.PACK GT SCH ×2 (06:41→18:03)
[2022-08-03] MEDS: BACLOFEN 10 MG TABLET GT SCH ×3 (06:41→21:16)
[2022-08-03] MEDS: ASCORBIC ACID 500 MG TABLET GT SCH (06:41)
[2022-08-03 07:33] VITALS: TEMP 97.8
[2022-08-03] MEDS: IPRATROPIUM BROMIDE 0.5 MG/2.5 ML NEBU NEB SCH ×4 (07:37→19:00)
[2022-08-03] MEDS: ALBUTEROL SULFATE 2.5 MG/3 ML NEBU NEB SCH ×4 (07:38→19:30)
[2022-08-03] MEDS: PROTEIN SUPPLEMENT (PROSTAT) 30 ML LIQUID GT SCH (08:34)
[2022-08-03] MEDS: CULTURELLE CAPSULE GT SCH ×2 (08:34→21:11)
[2022-08-03] MEDS: PHENYTOIN 100 MG/4 ML UDC GT SCH ×2 (08:36→21:14)
[2022-08-03] MEDS: PHENOBARBITAL 64.8 MG TABLET GT SCH ×2 (08:38→21:15)
[2022-08-03] MEDS: COD LIVER OIL/ZINC OXIDE OINT 113 GM TUBE TOP SCH ×2 (08:38→21:16)
[2022-08-03] MEDS: REMEDY ESSENTIAL ZINC PASTE 113 GM TP SCH ×2 (08:38→21:16)
[2022-08-03] MEDS: COD LIVER OIL/ZINC OXIDE OINT 113 GM TUBE TP SCH ×2 (08:38→21:16)
[2022-08-03] MEDS: VITAMINS A AND D OINT 42 GM TUBE TP SCH ×3 (08:38)
[2022-08-03] MEDS: CHOLECALCIFEROL 400 UNITS TABLET GT SCH ×2 (08:38→21:16)
[2022-08-03] MEDS: HYDROGEN PEROXIDE 3% 118 ML BOTTLE TOP SCH ×2 (08:44→21:26)
[2022-08-03] MEDS: JEVITY 1.2 1000 ML LIQUID GT PRN (18:03)
[2022-08-03] MEDS: MIRALAX 17 GM POWD.PACK GT SCH (21:15)
[2022-08-03] MEDS: chlorproMAZINE 25 MG TABLET GT PRN (22:00)
[2022-08-03 22:43] VITALS: TEMP 98.6
[2022-08-04] MEDS: OMEPRAZOLE 20 MG CAPSULE.DR GT SCH ×2 (05:54→21:40)
[2022-08-04] MEDS: ASCORBIC ACID 500 MG TABLET GT SCH (05:54)
[2022-08-04] MEDS: ARGININE/GLUTAMINE/CALCIUM BMB 1 EACH POWD.PACK GT SCH ×2 (05:54→17:01)
[2022-08-04] MEDS: BACLOFEN 10 MG TABLET GT SCH ×3 (05:54→21:41)
[2022-08-04] MEDS: ALBUTEROL SULFATE 2.5 MG/3 ML NEBU NEB SCH ×4 (08:13→19:36)
[2022-08-04] MEDS: IPRATROPIUM BROMIDE 0.5 MG/2.5 ML NEBU NEB SCH ×4 (08:13→19:36)
[2022-08-04] MEDS: PROTEIN SUPPLEMENT (PROSTAT) 30 ML LIQUID GT SCH (08:15)
[2022-08-04] MEDS: CULTURELLE CAPSULE GT SCH ×2 (08:15→21:40)
[2022-08-04] MEDS: PHENYTOIN 100 MG/4 ML UDC GT SCH ×2 (08:17→21:40)
[2022-08-04] MEDS: PHENOBARBITAL 64.8 MG TABLET GT SCH ×2 (08:18→21:40)
[2022-08-04] MEDS: CHOLECALCIFEROL 400 UNITS TABLET GT SCH ×2 (08:18→21:40)
[2022-08-04] MEDS: COD LIVER OIL/ZINC OXIDE OINT 113 GM TUBE TOP SCH ×2 (08:18→21:40)
[2022-08-04] MEDS: COD LIVER OIL/ZINC OXIDE OINT 113 GM TUBE TP SCH ×2 (08:19→21:40)
[2022-08-04] MEDS: REMEDY ESSENTIAL ZINC PASTE 113 GM TP SCH ×2 (08:19→21:41)
[2022-08-04] MEDS: VITAMINS A AND D OINT 42 GM TUBE TP SCH ×3 (08:19)
[2022-08-04] MEDS: HYDROGEN PEROXIDE 3% 118 ML BOTTLE TOP SCH ×2 (11:19→19:36)
[2022-08-04] MEDS: JEVITY 1.2 1000 ML LIQUID GT PRN (15:31)
[2022-08-04 20:30] VITALS: TEMP 98.8
[2022-08-04] MEDS: MIRALAX 17 GM POWD.PACK GT SCH (21:40)
[2022-08-05] MEDS: BACLOFEN 10 MG TABLET GT SCH ×3 (05:52→21:27)
[2022-08-05] MEDS: OMEPRAZOLE 20 MG CAPSULE.DR GT SCH ×2 (05:52→21:26)
[2022-08-05] MEDS: ARGININE/GLUTAMINE/CALCIUM BMB 1 EACH POWD.PACK GT SCH ×2 (05:52→17:26)
[2022-08-05] MEDS: ASCORBIC ACID 500 MG TABLET GT SCH (05:52)
[2022-08-05] MEDS: IPRATROPIUM BROMIDE 0.5 MG/2.5 ML NEBU NEB SCH ×4 (06:00→19:08)
[2022-08-05] MEDS: ALBUTEROL SULFATE 2.5 MG/3 ML NEBU NEB SCH ×4 (06:00→19:08)
[2022-08-05 07:26] VITALS: TEMP 97.7
[2022-08-05] MEDS: PROTEIN SUPPLEMENT (PROSTAT) 30 ML LIQUID GT SCH (08:31)
[2022-08-05] MEDS: CULTURELLE CAPSULE GT SCH ×2 (08:33→21:36)
[2022-08-05] MEDS: PHENYTOIN 100 MG/4 ML UDC GT SCH ×2 (08:33→21:32)
[2022-08-05] MEDS: PHENOBARBITAL 64.8 MG TABLET GT SCH ×2 (08:34→21:32)
[2022-08-05] MEDS: COD LIVER OIL/ZINC OXIDE OINT 113 GM TUBE TP SCH ×2 (08:35→21:26)
[2022-08-05] MEDS: REMEDY ESSENTIAL ZINC PASTE 113 GM TP SCH ×2 (08:35→21:26)
[2022-08-05] MEDS: CHOLECALCIFEROL 400 UNITS TABLET GT SCH ×2 (08:35→21:26)
[2022-08-05] MEDS: VITAMINS A AND D OINT 42 GM TUBE TP SCH ×3 (08:35)
[2022-08-05] MEDS: COD LIVER OIL/ZINC OXIDE OINT 113 GM TUBE TOP SCH ×2 (08:35→21:26)
[2022-08-05] MEDS: HYDROGEN PEROXIDE 3% 118 ML BOTTLE TOP SCH ×2 (09:18→19:09)
[2022-08-05 19:49] VITALS: TEMP 98.1
[2022-08-05] MEDS: MIRALAX 17 GM POWD.PACK GT SCH (21:26)
[2022-08-06] MEDS: ASCORBIC ACID 500 MG TABLET GT SCH (05:11)
[2022-08-06] MEDS: ARGININE/GLUTAMINE/CALCIUM BMB 1 EACH POWD.PACK GT SCH ×2 (05:11→17:43)
[2022-08-06] MEDS: BACLOFEN 10 MG TABLET GT SCH ×3 (05:11→22:54)
[2022-08-06 07:20] VITALS: TEMP 97.7
[2022-08-06] MEDS: IPRATROPIUM BROMIDE 0.5 MG/2.5 ML NEBU NEB SCH ×4 (07:30→19:04)
[2022-08-06] MEDS: ALBUTEROL SULFATE 2.5 MG/3 ML NEBU NEB SCH ×4 (07:30→19:04)
[2022-08-06] MEDS: PROTEIN SUPPLEMENT (PROSTAT) 30 ML LIQUID GT SCH (08:00)
[2022-08-06] MEDS: HYDROGEN PEROXIDE 3% 118 ML BOTTLE TOP SCH ×2 (09:20→19:04)
[2022-08-06] MEDS: CHOLECALCIFEROL 400 UNITS TABLET GT SCH ×2 (09:46→20:04)
[2022-08-06] MEDS: CULTURELLE CAPSULE GT SCH ×2 (09:46→20:04)
[2022-08-06] MEDS: COD LIVER OIL/ZINC OXIDE OINT 113 GM TUBE TOP SCH ×2 (09:46→20:05)
[2022-08-06] MEDS: PHENYTOIN 100 MG/4 ML UDC GT SCH ×2 (09:46→20:04)
[2022-08-06] MEDS: VITAMINS A AND D OINT 42 GM TUBE TP SCH ×3 (09:47)
[2022-08-06] MEDS: REMEDY ESSENTIAL ZINC PASTE 113 GM TP SCH ×2 (09:47→20:05)
[2022-08-06] MEDS: COD LIVER OIL/ZINC OXIDE OINT 113 GM TUBE TP SCH ×2 (09:47→20:05)
[2022-08-06] MEDS ORDERED: PHENOBARBITAL 32.4 MG TABLET GT SCH (10:30)
[2022-08-06 20:00] VITALS: TEMP 98.1
[2022-08-06] MEDS: MIRALAX 17 GM POWD.PACK GT SCH (20:04)
[2022-08-06] MEDS: OMEPRAZOLE 20 MG CAPSULE.DR GT SCH (20:04)
[2022-08-06] MEDS: PHENOBARBITAL 64.8 MG TABLET GT SCH (20:04)
[2022-08-06] MEDS: JEVITY 1.2 1000 ML LIQUID GT PRN (22:55)
[2022-08-07] MEDS: ARGININE/GLUTAMINE/CALCIUM BMB 1 EACH POWD.PACK GT SCH ×2 (05:03→17:49)
[2022-08-07] MEDS: BACLOFEN 10 MG TABLET GT SCH ×3 (05:04→22:13)
[2022-08-07] MEDS: ASCORBIC ACID 500 MG TABLET GT SCH (05:04)
[2022-08-07] MEDS: HYDROGEN PEROXIDE 3% 118 ML BOTTLE TOP SCH ×2 (07:10→18:59)
[2022-08-07] MEDS: ALBUTEROL SULFATE 2.5 MG/3 ML NEBU NEB SCH ×4 (07:10→18:59)
[2022-08-07] MEDS: IPRATROPIUM BROMIDE 0.5 MG/2.5 ML NEBU NEB SCH ×4 (07:10→18:59)
[2022-08-07 07:19] VITALS: TEMP 97.5
[2022-08-07] MEDS: PROTEIN SUPPLEMENT (PROSTAT) 30 ML LIQUID GT SCH (08:26)
[2022-08-07] MEDS: PHENYTOIN 100 MG/4 ML UDC GT SCH ×2 (08:27→21:00)
[2022-08-07] MEDS: CULTURELLE CAPSULE GT SCH ×2 (08:29→21:00)
[2022-08-07] MEDS: CHOLECALCIFEROL 400 UNITS TABLET GT SCH ×2 (08:30→21:00)
[2022-08-07] MEDS: COD LIVER OIL/ZINC OXIDE OINT 113 GM TUBE TP SCH ×2 (08:31→21:00)
[2022-08-07] MEDS: COD LIVER OIL/ZINC OXIDE OINT 113 GM TUBE TOP SCH ×2 (08:31→21:00)
[2022-08-07] MEDS: REMEDY ESSENTIAL ZINC PASTE 113 GM TP SCH ×2 (08:31→21:00)
[2022-08-07] MEDS: VITAMINS A AND D OINT 42 GM TUBE TP SCH ×3 (08:32)
[2022-08-07] MEDS: PHENOBARBITAL 64.8 MG TABLET GT SCH ×2 (08:45→21:00)
[2022-08-07 20:00] VITALS: TEMP 98
[2022-08-07] MEDS: MIRALAX 17 GM POWD.PACK GT SCH (21:00)
[2022-08-07] MEDS: OMEPRAZOLE 20 MG CAPSULE.DR GT SCH (21:00)
[2022-08-08] MEDS: ASCORBIC ACID 500 MG TABLET GT SCH (06:21)
[2022-08-08] MEDS: OMEPRAZOLE 20 MG CAPSULE.DR GT SCH ×2 (06:21→21:00)
[2022-08-08] MEDS: ARGININE/GLUTAMINE/CALCIUM BMB 1 EACH POWD.PACK GT SCH ×2 (06:21→17:41)
[2022-08-08] MEDS: BACLOFEN 10 MG TABLET GT SCH ×3 (06:21→22:04)
[2022-08-08 07:22] VITALS: TEMP 97.5
[2022-08-08] MEDS: HYDROGEN PEROXIDE 3% 118 ML BOTTLE TOP SCH ×2 (07:48→19:02)
[2022-08-08] MEDS: IPRATROPIUM BROMIDE 0.5 MG/2.5 ML NEBU NEB SCH ×4 (07:48→19:02)
[2022-08-08] MEDS: ALBUTEROL SULFATE 2.5 MG/3 ML NEBU NEB SCH ×4 (07:48→19:02)
[2022-08-08] MEDS: PROTEIN SUPPLEMENT (PROSTAT) 30 ML LIQUID GT SCH (08:23)
[2022-08-08] MEDS: CHOLECALCIFEROL 400 UNITS TABLET GT SCH ×2 (08:23→21:00)
[2022-08-08] MEDS: PHENYTOIN 100 MG/4 ML UDC GT SCH ×2 (08:23→21:00)
[2022-08-08] MEDS: PHENOBARBITAL 64.8 MG TABLET GT SCH ×2 (08:23→21:00)
[2022-08-08] MEDS: CULTURELLE CAPSULE GT SCH ×2 (08:23→21:00)
[2022-08-08] MEDS: VITAMINS A AND D OINT 42 GM TUBE TP SCH ×3 (08:24)
[2022-08-08] MEDS: COD LIVER OIL/ZINC OXIDE OINT 113 GM TUBE TOP SCH ×2 (08:24→21:00)
[2022-08-08] MEDS: REMEDY ESSENTIAL ZINC PASTE 113 GM TP SCH ×2 (08:24→21:00)
[2022-08-08] MEDS: COD LIVER OIL/ZINC OXIDE OINT 113 GM TUBE TP SCH ×2 (08:24→21:00)
[2022-08-08 19:56] VITALS: TEMP 98
[2022-08-08] MEDS: MIRALAX 17 GM POWD.PACK GT SCH (21:00)
[2022-08-09] MEDS: BACLOFEN 10 MG TABLET GT SCH ×3 (06:35→21:44)
[2022-08-09] MEDS: OMEPRAZOLE 20 MG CAPSULE.DR GT SCH ×2 (06:35→21:44)
[2022-08-09] MEDS: ASCORBIC ACID 500 MG TABLET GT SCH (06:35)
[2022-08-09] MEDS: ARGININE/GLUTAMINE/CALCIUM BMB 1 EACH POWD.PACK GT SCH ×2 (06:35→17:47)
[2022-08-09 07:35] VITALS: TEMP 97.7
[2022-08-09] MEDS: IPRATROPIUM BROMIDE 0.5 MG/2.5 ML NEBU NEB SCH ×4 (08:03→19:05)
[2022-08-09] MEDS: ALBUTEROL SULFATE 2.5 MG/3 ML NEBU NEB SCH ×4 (08:03→19:05)
[2022-08-09] MEDS: HYDROGEN PEROXIDE 3% 118 ML BOTTLE TOP SCH ×2 (08:03→19:05)
[2022-08-09] MEDS: PROTEIN SUPPLEMENT (PROSTAT) 30 ML LIQUID GT SCH (08:17)
[2022-08-09] MEDS: PHENYTOIN 100 MG/4 ML UDC GT SCH ×2 (08:19→21:44)
[2022-08-09] MEDS: CULTURELLE CAPSULE GT SCH ×2 (08:19→21:44)
[2022-08-09] MEDS: CHOLECALCIFEROL 400 UNITS TABLET GT SCH ×2 (08:21→21:44)
[2022-08-09] MEDS: PHENOBARBITAL 64.8 MG TABLET GT SCH ×2 (08:21→21:44)
[2022-08-09] MEDS: VITAMINS A AND D OINT 42 GM TUBE TP SCH ×3 (09:00)
[2022-08-09] MEDS: COD LIVER OIL/ZINC OXIDE OINT 113 GM TUBE TP SCH ×2 (09:00→21:44)
[2022-08-09] MEDS: COD LIVER OIL/ZINC OXIDE OINT 113 GM TUBE TOP SCH ×2 (09:00→21:44)
[2022-08-09] MEDS: REMEDY ESSENTIAL ZINC PASTE 113 GM TP SCH ×2 (09:00→21:44)
[2022-08-09] MEDS: JEVITY 1.2 1000 ML LIQUID GT PRN (15:50)
[2022-08-09 19:54] VITALS: TEMP 97.8
[2022-08-09] MEDS: MIRALAX 17 GM POWD.PACK GT SCH (21:44)
[2022-08-10] MEDS: ASCORBIC ACID 500 MG TABLET GT SCH (05:11)
[2022-08-10] MEDS: BACLOFEN 10 MG TABLET GT SCH ×3 (05:11→21:55)
[2022-08-10] MEDS: ARGININE/GLUTAMINE/CALCIUM BMB 1 EACH POWD.PACK GT SCH ×2 (05:11→17:33)
[2022-08-10] MEDS: OMEPRAZOLE 20 MG CAPSULE.DR GT SCH ×2 (06:33→21:04)
[2022-08-10] MEDS: IPRATROPIUM BROMIDE 0.5 MG/2.5 ML NEBU NEB SCH ×4 (07:12→19:15)
[2022-08-10] MEDS: ALBUTEROL SULFATE 2.5 MG/3 ML NEBU NEB SCH ×4 (07:12→19:15)
[2022-08-10 08:00] VITALS: TEMP 97.4
[2022-08-10] MEDS: PROTEIN SUPPLEMENT (PROSTAT) 30 ML LIQUID GT SCH (08:00)
[2022-08-10] MEDS: CULTURELLE CAPSULE GT SCH ×2 (09:03→21:04)
[2022-08-10] MEDS: PHENYTOIN 100 MG/4 ML UDC GT SCH ×2 (09:03→21:04)
[2022-08-10] MEDS: PHENOBARBITAL 64.8 MG TABLET GT SCH ×2 (09:04→21:04)
[2022-08-10] MEDS: COD LIVER OIL/ZINC OXIDE OINT 113 GM TUBE TP SCH ×2 (09:06→21:04)
[2022-08-10] MEDS: REMEDY ESSENTIAL ZINC PASTE 113 GM TP SCH ×2 (09:06→21:05)
[2022-08-10] MEDS: CHOLECALCIFEROL 400 UNITS TABLET GT SCH ×2 (09:06→21:04)
[2022-08-10] MEDS: COD LIVER OIL/ZINC OXIDE OINT 113 GM TUBE TOP SCH ×2 (09:06→21:04)
[2022-08-10] MEDS: VITAMINS A AND D OINT 42 GM TUBE TP SCH ×3 (09:06)
[2022-08-10] MEDS: HYDROGEN PEROXIDE 3% 118 ML BOTTLE TOP SCH ×2 (09:10→21:05)
[2022-08-10] MEDS: JEVITY 1.2 1000 ML LIQUID GT PRN (13:57)
[2022-08-10 20:00] VITALS: TEMP 97.6
[2022-08-10] MEDS: MIRALAX 17 GM POWD.PACK GT SCH (21:04)
[2022-08-11] MEDS: ARGININE/GLUTAMINE/CALCIUM BMB 1 EACH POWD.PACK GT SCH ×2 (05:13→18:07)
[2022-08-11] MEDS: ASCORBIC ACID 500 MG TABLET GT SCH (05:13)
[2022-08-11] MEDS: BACLOFEN 10 MG TABLET GT SCH ×3 (05:13→22:56)
[2022-08-11] MEDS: OMEPRAZOLE 20 MG CAPSULE.DR GT SCH ×2 (05:13→20:43)
[2022-08-11] MEDS: IPRATROPIUM BROMIDE 0.5 MG/2.5 ML NEBU NEB SCH ×4 (05:38→19:15)
[2022-08-11] MEDS: ALBUTEROL SULFATE 2.5 MG/3 ML NEBU NEB SCH ×4 (05:38→19:15)
[2022-08-11 07:30] VITALS: TEMP 97.6
[2022-08-11] MEDS: HYDROGEN PEROXIDE 3% 118 ML BOTTLE TOP SCH ×2 (08:06→19:15)
[2022-08-11] MEDS: VITAMINS A AND D OINT 42 GM TUBE TP SCH ×3 (08:43→08:44)
[2022-08-11] MEDS: PHENOBARBITAL 64.8 MG TABLET GT SCH ×2 (08:43→20:42)
[2022-08-11] MEDS: COD LIVER OIL/ZINC OXIDE OINT 113 GM TUBE TP SCH ×2 (08:43→20:43)
[2022-08-11] MEDS: PROTEIN SUPPLEMENT (PROSTAT) 30 ML LIQUID GT SCH (08:43)
[2022-08-11] MEDS: REMEDY ESSENTIAL ZINC PASTE 113 GM TP SCH ×2 (08:43→20:43)
[2022-08-11] MEDS: PHENYTOIN 100 MG/4 ML UDC GT SCH ×2 (08:43→20:42)
[2022-08-11] MEDS: COD LIVER OIL/ZINC OXIDE OINT 113 GM TUBE TOP SCH ×2 (08:43→20:43)
[2022-08-11] MEDS: CHOLECALCIFEROL 400 UNITS TABLET GT SCH ×2 (08:43→20:43)
[2022-08-11] MEDS: CULTURELLE CAPSULE GT SCH ×2 (08:43→20:42)
[2022-08-11 20:25] VITALS: TEMP 98
[2022-08-11] MEDS: MIRALAX 17 GM POWD.PACK GT SCH (20:42)
[2022-08-12] MEDS: BACLOFEN 10 MG TABLET GT SCH ×3 (05:25→21:01)
[2022-08-12] MEDS: ASCORBIC ACID 500 MG TABLET GT SCH (05:25)
[2022-08-12] MEDS: ARGININE/GLUTAMINE/CALCIUM BMB 1 EACH POWD.PACK GT SCH ×2 (05:25→17:08)
[2022-08-12] MEDS: OMEPRAZOLE 20 MG CAPSULE.DR GT SCH ×2 (06:55→21:00)
[2022-08-12 07:23] VITALS: TEMP 97.6
[2022-08-12] MEDS: IPRATROPIUM BROMIDE 0.5 MG/2.5 ML NEBU NEB SCH ×4 (07:51→19:22)
[2022-08-12] MEDS: ALBUTEROL SULFATE 2.5 MG/3 ML NEBU NEB SCH ×4 (07:51→19:22)
[2022-08-12] MEDS: HYDROGEN PEROXIDE 3% 118 ML BOTTLE TOP SCH ×2 (08:07→19:22)
[2022-08-12] MEDS: CULTURELLE CAPSULE GT SCH ×2 (08:31→20:59)
[2022-08-12] MEDS: PROTEIN SUPPLEMENT (PROSTAT) 30 ML LIQUID GT SCH (08:31)
[2022-08-12] MEDS: CHOLECALCIFEROL 400 UNITS TABLET GT SCH ×2 (08:32→21:00)
[2022-08-12] MEDS: PHENYTOIN 100 MG/4 ML UDC GT SCH ×2 (08:33→20:59)
[2022-08-12] MEDS: REMEDY ESSENTIAL ZINC PASTE 113 GM TP SCH ×2 (08:34→21:00)
[2022-08-12] MEDS: COD LIVER OIL/ZINC OXIDE OINT 113 GM TUBE TP SCH ×3 (08:34→21:00)
[2022-08-12] MEDS: COD LIVER OIL/ZINC OXIDE OINT 113 GM TUBE TOP SCH ×2 (08:34→21:00)
[2022-08-12] MEDS: VITAMINS A AND D OINT 42 GM TUBE TP SCH ×3 (08:34→08:35)
[2022-08-12] MEDS: PHENOBARBITAL 64.8 MG TABLET GT SCH ×2 (08:36→20:59)
[2022-08-12] MEDS: JEVITY 1.2 1000 ML LIQUID GT PRN (13:02)
[2022-08-12 21:00] VITALS: TEMP 97.5
[2022-08-12] MEDS: MIRALAX 17 GM POWD.PACK GT SCH (21:00)
[2022-08-12] MEDS: NYSTATIN CREAM 30 GM TUBE TP SCH (21:00)
[2022-08-13] MEDS: OMEPRAZOLE 20 MG CAPSULE.DR GT SCH ×2 (05:44→21:00)
[2022-08-13] MEDS: ASCORBIC ACID 500 MG TABLET GT SCH (05:44)
[2022-08-13] MEDS: ARGININE/GLUTAMINE/CALCIUM BMB 1 EACH POWD.PACK GT SCH ×2 (05:44→18:39)
[2022-08-13] MEDS: BACLOFEN 10 MG TABLET GT SCH ×3 (05:44→22:17)
[2022-08-13 07:30] VITALS: TEMP 97.5
[2022-08-13] MEDS: HYDROGEN PEROXIDE 3% 118 ML BOTTLE TOP SCH ×2 (07:45→21:00)
[2022-08-13] MEDS: ALBUTEROL SULFATE 2.5 MG/3 ML NEBU NEB SCH ×4 (07:45→19:01)
[2022-08-13] MEDS: IPRATROPIUM BROMIDE 0.5 MG/2.5 ML NEBU NEB SCH ×4 (07:45→19:01)
[2022-08-13] MEDS: PROTEIN SUPPLEMENT (PROSTAT) 30 ML LIQUID GT SCH (08:00)
[2022-08-13] MEDS: REMEDY ESSENTIAL ZINC PASTE 113 GM TP SCH ×2 (09:00→21:00)
[2022-08-13] MEDS: VITAMINS A AND D OINT 42 GM TUBE TP SCH ×3 (09:00)
[2022-08-13] MEDS: PHENYTOIN 100 MG/4 ML UDC GT SCH ×2 (09:00→21:00)
[2022-08-13] MEDS: CHOLECALCIFEROL 400 UNITS TABLET GT SCH ×2 (09:00→21:00)
[2022-08-13] MEDS: COD LIVER OIL/ZINC OXIDE OINT 113 GM TUBE TOP SCH ×2 (09:00→21:00)
[2022-08-13] MEDS: COD LIVER OIL/ZINC OXIDE OINT 113 GM TUBE TP SCH ×4 (09:00→21:00)
[2022-08-13] MEDS: PHENOBARBITAL 64.8 MG TABLET GT SCH ×2 (09:00→21:00)
[2022-08-13] MEDS: NYSTATIN CREAM 30 GM TUBE TP SCH ×2 (09:00→21:00)
[2022-08-13] MEDS: CULTURELLE CAPSULE GT SCH ×2 (09:00→21:00)
[2022-08-13 20:30] VITALS: TEMP 97.8
[2022-08-13] MEDS: MIRALAX 17 GM POWD.PACK GT SCH (21:00)
[2022-08-14] MEDS: JEVITY 1.2 1000 ML LIQUID GT PRN (03:14)
[2022-08-14] MEDS: BACLOFEN 10 MG TABLET GT SCH ×3 (05:37→22:16)
[2022-08-14] MEDS: ARGININE/GLUTAMINE/CALCIUM BMB 1 EACH POWD.PACK GT SCH ×2 (05:37→18:35)
[2022-08-14] MEDS: OMEPRAZOLE 20 MG CAPSULE.DR GT SCH ×2 (05:37→21:00)
[2022-08-14] MEDS: ASCORBIC ACID 500 MG TABLET GT SCH (05:37)
[2022-08-14] MEDS: IPRATROPIUM BROMIDE 0.5 MG/2.5 ML NEBU NEB SCH ×4 (07:20→19:16)
[2022-08-14] MEDS: ALBUTEROL SULFATE 2.5 MG/3 ML NEBU NEB SCH ×4 (07:21→19:16)
[2022-08-14] MEDS: HYDROGEN PEROXIDE 3% 118 ML BOTTLE TOP SCH ×2 (07:21→19:16)
[2022-08-14 08:00] VITALS: TEMP 98
[2022-08-14] MEDS: PROTEIN SUPPLEMENT (PROSTAT) 30 ML LIQUID GT SCH (08:10)
[2022-08-14] MEDS: CULTURELLE CAPSULE GT SCH ×2 (08:59→22:16)
[2022-08-14] MEDS: PHENYTOIN 100 MG/4 ML UDC GT SCH ×2 (09:01→21:00)
[2022-08-14] MEDS: CHOLECALCIFEROL 400 UNITS TABLET GT SCH ×2 (09:03→21:00)
[2022-08-14] MEDS: PHENOBARBITAL 64.8 MG TABLET GT SCH ×2 (09:03→21:00)
[2022-08-14] MEDS: COD LIVER OIL/ZINC OXIDE OINT 113 GM TUBE TOP SCH ×2 (09:04→21:00)
[2022-08-14] MEDS: COD LIVER OIL/ZINC OXIDE OINT 113 GM TUBE TP SCH ×4 (09:04→21:00)
[2022-08-14] MEDS: NYSTATIN CREAM 30 GM TUBE TP SCH ×2 (09:06→21:00)
[2022-08-14] MEDS: REMEDY ESSENTIAL ZINC PASTE 113 GM TP SCH ×2 (09:06→21:00)
[2022-08-14] MEDS: VITAMINS A AND D OINT 42 GM TUBE TP SCH ×3 (09:06)
[2022-08-14 21:00] VITALS: TEMP 98.4
[2022-08-14] MEDS: MIRALAX 17 GM POWD.PACK GT SCH (21:00)
[2022-08-15] MEDS: BACLOFEN 10 MG TABLET GT SCH ×3 (05:15→22:31)
[2022-08-15] MEDS: ARGININE/GLUTAMINE/CALCIUM BMB 1 EACH POWD.PACK GT SCH ×2 (05:15→18:14)
[2022-08-15] MEDS: ASCORBIC ACID 500 MG TABLET GT SCH (05:15)
[2022-08-15] MEDS: JEVITY 1.2 1000 ML LIQUID GT PRN (05:50)
[2022-08-15] MEDS: OMEPRAZOLE 20 MG CAPSULE.DR GT SCH ×2 (05:50→21:00)
[2022-08-15] MEDS: ALBUTEROL SULFATE 2.5 MG/3 ML NEBU NEB SCH ×4 (07:25→19:25)
[2022-08-15] MEDS: IPRATROPIUM BROMIDE 0.5 MG/2.5 ML NEBU NEB SCH ×4 (07:25→19:25)
[2022-08-15 08:00] VITALS: TEMP 97
[2022-08-15] MEDS: PROTEIN SUPPLEMENT (PROSTAT) 30 ML LIQUID GT SCH (08:00)
[2022-08-15] MEDS: CHOLECALCIFEROL 400 UNITS TABLET GT SCH ×2 (09:00→21:00)
[2022-08-15] MEDS: PHENOBARBITAL 64.8 MG TABLET GT SCH ×2 (09:00→21:00)
[2022-08-15] MEDS: VITAMINS A AND D OINT 42 GM TUBE TP SCH ×3 (09:00→10:00)
[2022-08-15] MEDS: PHENYTOIN 100 MG/4 ML UDC GT SCH ×2 (09:00→21:00)
[2022-08-15] MEDS: COD LIVER OIL/ZINC OXIDE OINT 113 GM TUBE TP SCH ×4 (09:00→21:00)
[2022-08-15] MEDS: REMEDY ESSENTIAL ZINC PASTE 113 GM TP SCH ×2 (09:00→21:00)
[2022-08-15] MEDS: COD LIVER OIL/ZINC OXIDE OINT 113 GM TUBE TOP SCH ×2 (09:00→21:00)
[2022-08-15] MEDS: NYSTATIN CREAM 30 GM TUBE TP SCH ×2 (09:00→21:00)
[2022-08-15] MEDS: HYDROGEN PEROXIDE 3% 118 ML BOTTLE TOP SCH ×2 (09:40→19:25)
[2022-08-15] MEDS: CULTURELLE CAPSULE GT SCH ×2 (10:57→21:00)
[2022-08-15 21:00] VITALS: TEMP 98.2
[2022-08-15] MEDS: MIRALAX 17 GM POWD.PACK GT SCH (21:00)
[2022-08-16] MEDS: JEVITY 1.2 1000 ML LIQUID GT PRN
[2022-08-16] MEDS: OMEPRAZOLE 20 MG CAPSULE.DR GT SCH ×2 (06:19→21:26)
[2022-08-16] MEDS: ARGININE/GLUTAMINE/CALCIUM BMB 1 EACH POWD.PACK GT SCH ×2 (06:19→18:10)
[2022-08-16] MEDS: BACLOFEN 10 MG TABLET GT SCH ×3 (06:19→21:26)
[2022-08-16] MEDS: ASCORBIC ACID 500 MG TABLET GT SCH (06:19)
[2022-08-16] MEDS: ALBUTEROL SULFATE 2.5 MG/3 ML NEBU NEB SCH ×4 (07:02→19:05)
[2022-08-16] MEDS: IPRATROPIUM BROMIDE 0.5 MG/2.5 ML NEBU NEB SCH ×4 (07:02→19:05)
[2022-08-16 07:43] VITALS: TEMP 97.5
[2022-08-16] MEDS: CULTURELLE CAPSULE GT SCH ×2 (08:46→21:22)
[2022-08-16] MEDS: PROTEIN SUPPLEMENT (PROSTAT) 30 ML LIQUID GT SCH (08:47)
[2022-08-16] MEDS: PHENYTOIN 100 MG/4 ML UDC GT SCH ×2 (08:49→21:24)
[2022-08-16] MEDS: HYDROGEN PEROXIDE 3% 118 ML BOTTLE TOP SCH ×2 (08:50→19:05)
[2022-08-16] MEDS: PHENOBARBITAL 64.8 MG TABLET GT SCH ×2 (08:52→21:24)
[2022-08-16] MEDS: CHOLECALCIFEROL 400 UNITS TABLET GT SCH ×2 (08:53→21:26)
[2022-08-16] MEDS: COD LIVER OIL/ZINC OXIDE OINT 113 GM TUBE TOP SCH ×2 (08:54→21:26)
[2022-08-16] MEDS: COD LIVER OIL/ZINC OXIDE OINT 113 GM TUBE TP SCH ×4 (08:55→21:26)
[2022-08-16] MEDS: NYSTATIN CREAM 30 GM TUBE TP SCH ×2 (08:56→21:26)
[2022-08-16] MEDS: REMEDY ESSENTIAL ZINC PASTE 113 GM TP SCH ×2 (08:56→21:26)
[2022-08-16] MEDS: VITAMINS A AND D OINT 42 GM TUBE TP SCH ×3 (08:56)
[2022-08-16 20:12] VITALS: TEMP 97.3
[2022-08-16] MEDS: MIRALAX 17 GM POWD.PACK GT SCH (21:24)
[2022-08-17] MEDS: ASCORBIC ACID 500 MG TABLET GT SCH (05:18)
[2022-08-17] MEDS: OMEPRAZOLE 20 MG CAPSULE.DR GT SCH ×2 (05:18→21:39)
[2022-08-17] MEDS: BACLOFEN 10 MG TABLET GT SCH ×3 (05:18→21:40)
[2022-08-17] MEDS: ARGININE/GLUTAMINE/CALCIUM BMB 1 EACH POWD.PACK GT SCH ×2 (05:18→18:38)
[2022-08-17] MEDS: IPRATROPIUM BROMIDE 0.5 MG/2.5 ML NEBU NEB SCH ×4 (07:31→19:02)
[2022-08-17] MEDS: HYDROGEN PEROXIDE 3% 118 ML BOTTLE TOP SCH ×2 (07:31→19:03)
[2022-08-17] MEDS: ALBUTEROL SULFATE 2.5 MG/3 ML NEBU NEB SCH ×4 (07:31→19:02)
[2022-08-17 08:00] VITALS: TEMP 98
[2022-08-17] MEDS: PROTEIN SUPPLEMENT (PROSTAT) 30 ML LIQUID GT SCH (08:00)
[2022-08-17] MEDS: PHENYTOIN 100 MG/4 ML UDC GT SCH ×2 (09:25→21:37)
[2022-08-17] MEDS: PHENOBARBITAL 64.8 MG TABLET GT SCH ×2 (09:26→21:37)
[2022-08-17] MEDS: CHOLECALCIFEROL 400 UNITS TABLET GT SCH ×2 (09:27→21:39)
[2022-08-17] MEDS: COD LIVER OIL/ZINC OXIDE OINT 113 GM TUBE TP SCH ×4 (09:28→21:40)
[2022-08-17] MEDS: NYSTATIN CREAM 30 GM TUBE TP SCH ×2 (09:29→21:40)
[2022-08-17] MEDS: REMEDY ESSENTIAL ZINC PASTE 113 GM TP SCH ×2 (09:30→21:40)
[2022-08-17] MEDS: VITAMINS A AND D OINT 42 GM TUBE TP SCH ×3 (09:30→09:31)
[2022-08-17] MEDS: CULTURELLE CAPSULE GT SCH ×2 (09:33→21:36)
[2022-08-17 15:00] VITALS: O2SAT 98
[2022-08-17] MEDS: MIRALAX 17 GM POWD.PACK GT SCH (21:37)
[2022-08-17] MEDS: JEVITY 1.2 1000 ML LIQUID GT PRN ×2 (22:00)
[2022-08-17 22:57] VITALS: TEMP 98.4
[2022-08-18] MEDS: ASCORBIC ACID 500 MG TABLET GT SCH (06:05)
[2022-08-18] MEDS: BACLOFEN 10 MG TABLET GT SCH ×3 (06:05→22:00)
[2022-08-18] MEDS: ARGININE/GLUTAMINE/CALCIUM BMB 1 EACH POWD.PACK GT SCH ×2 (06:05→17:31)
[2022-08-18] MEDS: OMEPRAZOLE 20 MG CAPSULE.DR GT SCH ×2 (06:58→20:55)
[2022-08-18] MEDS: IPRATROPIUM BROMIDE 0.5 MG/2.5 ML NEBU NEB SCH ×4 (07:39→19:33)
[2022-08-18] MEDS: ALBUTEROL SULFATE 2.5 MG/3 ML NEBU NEB SCH ×4 (07:39→19:34)
[2022-08-18] MEDS: HYDROGEN PEROXIDE 3% 118 ML BOTTLE TOP SCH ×3 (07:40→19:34)
[2022-08-18 08:00] VITALS: TEMP 98.1
[2022-08-18] MEDS: PROTEIN SUPPLEMENT (PROSTAT) 30 ML LIQUID GT SCH (08:00)
[2022-08-18] MEDS: PHENOBARBITAL 64.8 MG TABLET GT SCH ×2 (09:03→20:54)
[2022-08-18] MEDS: PHENYTOIN 100 MG/4 ML UDC GT SCH ×2 (09:03→20:54)
[2022-08-18] MEDS: COD LIVER OIL/ZINC OXIDE OINT 113 GM TUBE TP SCH ×4 (09:06→20:55)
[2022-08-18] MEDS: CULTURELLE CAPSULE GT SCH ×2 (09:06→20:54)
[2022-08-18] MEDS: CHOLECALCIFEROL 400 UNITS TABLET GT SCH ×2 (09:06→20:55)
[2022-08-18] MEDS: NYSTATIN CREAM 30 GM TUBE TP SCH ×2 (09:07→20:55)
[2022-08-18] MEDS: REMEDY ESSENTIAL ZINC PASTE 113 GM TP SCH ×2 (09:07→20:55)
[2022-08-18] MEDS: VITAMINS A AND D OINT 42 GM TUBE TP SCH ×3 (09:07)
[2022-08-18 19:58] VITALS: TEMP 98.3
[2022-08-18] MEDS: MIRALAX 17 GM POWD.PACK GT SCH (20:55)
[2022-08-18] MEDS: JEVITY 1.2 1000 ML LIQUID GT PRN (23:36)
[2022-08-19] MEDS: BACLOFEN 10 MG TABLET GT SCH ×3 (05:52→21:48)
[2022-08-19] MEDS: ARGININE/GLUTAMINE/CALCIUM BMB 1 EACH POWD.PACK GT SCH ×2 (05:52→17:21)
[2022-08-19] MEDS: ASCORBIC ACID 500 MG TABLET GT SCH (05:53)
[2022-08-19] MEDS: OMEPRAZOLE 20 MG CAPSULE.DR GT SCH ×2 (05:53→21:48)
[2022-08-19] MEDS: ALBUTEROL SULFATE 2.5 MG/3 ML NEBU NEB SCH ×4 (07:04→19:11)
[2022-08-19] MEDS: IPRATROPIUM BROMIDE 0.5 MG/2.5 ML NEBU NEB SCH ×4 (07:04→19:11)
[2022-08-19 07:23] VITALS: TEMP 97.9
[2022-08-19] MEDS: HYDROGEN PEROXIDE 3% 118 ML BOTTLE TOP SCH ×2 (08:09→19:11)
[2022-08-19] MEDS: PROTEIN SUPPLEMENT (PROSTAT) 30 ML LIQUID GT SCH (09:57)
[2022-08-19] MEDS: PHENOBARBITAL 64.8 MG TABLET GT SCH ×2 (09:59→21:48)
[2022-08-19] MEDS: NYSTATIN CREAM 30 GM TUBE TP SCH ×2 (10:01→21:48)
[2022-08-19] MEDS: VITAMINS A AND D OINT 42 GM TUBE TP SCH ×3 (10:01→10:02)
[2022-08-19] MEDS: REMEDY ESSENTIAL ZINC PASTE 113 GM TP SCH ×2 (10:01→21:48)
[2022-08-19] MEDS: CHOLECALCIFEROL 400 UNITS TABLET GT SCH ×2 (10:01→21:48)
[2022-08-19] MEDS: COD LIVER OIL/ZINC OXIDE OINT 113 GM TUBE TP SCH ×4 (10:01→21:48)
[2022-08-19] MEDS: PHENYTOIN 100 MG/4 ML UDC GT SCH ×2 (10:03→21:48)
[2022-08-19] MEDS: CULTURELLE CAPSULE GT SCH ×2 (10:06→21:48)
[2022-08-19 20:00] VITALS: TEMP 98.1
[2022-08-19] MEDS: JEVITY 1.2 1000 ML LIQUID GT PRN (21:39)
[2022-08-19] MEDS: MIRALAX 17 GM POWD.PACK GT SCH (21:48)
[2022-08-20] MEDS: BACLOFEN 10 MG TABLET GT SCH ×3 (05:34→21:51)
[2022-08-20] MEDS: OMEPRAZOLE 20 MG CAPSULE.DR GT SCH ×2 (05:34→21:50)
[2022-08-20] MEDS: ARGININE/GLUTAMINE/CALCIUM BMB 1 EACH POWD.PACK GT SCH ×2 (05:34→17:34)
[2022-08-20] MEDS: ASCORBIC ACID 500 MG TABLET GT SCH (05:34)
[2022-08-20 07:15] VITALS: TEMP 97.9
[2022-08-20] MEDS: HYDROGEN PEROXIDE 3% 118 ML BOTTLE TOP SCH ×2 (08:05→19:07)
[2022-08-20] MEDS: IPRATROPIUM BROMIDE 0.5 MG/2.5 ML NEBU NEB SCH ×4 (08:05→19:07)
[2022-08-20] MEDS: ALBUTEROL SULFATE 2.5 MG/3 ML NEBU NEB SCH ×4 (08:05→19:07)
[2022-08-20] MEDS: PHENYTOIN 100 MG/4 ML UDC GT SCH ×2 (08:44→21:50)
[2022-08-20] MEDS: PROTEIN SUPPLEMENT (PROSTAT) 30 ML LIQUID GT SCH (08:44)
[2022-08-20] MEDS: COD LIVER OIL/ZINC OXIDE OINT 113 GM TUBE TP SCH ×4 (08:45→21:50)
[2022-08-20] MEDS: CHOLECALCIFEROL 400 UNITS TABLET GT SCH ×2 (08:45→21:50)
[2022-08-20] MEDS: PHENOBARBITAL 64.8 MG TABLET GT SCH ×2 (08:45→21:50)
[2022-08-20] MEDS: NYSTATIN CREAM 30 GM TUBE TP SCH ×2 (08:46→21:51)
[2022-08-20] MEDS: VITAMINS A AND D OINT 42 GM TUBE TP SCH ×3 (08:46)
[2022-08-20] MEDS: REMEDY ESSENTIAL ZINC PASTE 113 GM TP SCH ×2 (08:46→21:51)
[2022-08-20] MEDS: CULTURELLE CAPSULE GT SCH ×2 (09:52→21:50)
[2022-08-20] MEDS: JEVITY 1.2 1000 ML LIQUID GT PRN (17:35)
[2022-08-20 20:00] VITALS: TEMP 98
[2022-08-20] MEDS: MIRALAX 17 GM POWD.PACK GT SCH (21:50)
[2022-08-21] MEDS: BACLOFEN 10 MG TABLET GT SCH ×3 (05:13→21:57)
[2022-08-21] MEDS: ARGININE/GLUTAMINE/CALCIUM BMB 1 EACH POWD.PACK GT SCH ×2 (05:13→17:24)
[2022-08-21] MEDS: ASCORBIC ACID 500 MG TABLET GT SCH (05:13)
[2022-08-21] MEDS: OMEPRAZOLE 20 MG CAPSULE.DR GT SCH ×2 (05:51→21:56)
[2022-08-21] MEDS: IPRATROPIUM BROMIDE 0.5 MG/2.5 ML NEBU NEB SCH ×4 (07:04→18:53)
[2022-08-21] MEDS: ALBUTEROL SULFATE 2.5 MG/3 ML NEBU NEB SCH ×4 (07:04→18:53)
[2022-08-21 07:19] VITALS: TEMP 98.5
[2022-08-21] MEDS: PROTEIN SUPPLEMENT (PROSTAT) 30 ML LIQUID GT SCH (08:05)
[2022-08-21] MEDS: CULTURELLE CAPSULE GT SCH ×2 (08:06→21:56)
[2022-08-21] MEDS: PHENYTOIN 100 MG/4 ML UDC GT SCH ×2 (08:06→21:56)
[2022-08-21] MEDS: PHENOBARBITAL 64.8 MG TABLET GT SCH ×2 (08:07→21:56)
[2022-08-21] MEDS: CHOLECALCIFEROL 400 UNITS TABLET GT SCH ×2 (08:07→21:56)
[2022-08-21] MEDS: REMEDY ESSENTIAL ZINC PASTE 113 GM TP SCH ×2 (08:07→21:57)
[2022-08-21] MEDS: NYSTATIN CREAM 30 GM TUBE TP SCH ×2 (08:07→21:56)
[2022-08-21] MEDS: COD LIVER OIL/ZINC OXIDE OINT 113 GM TUBE TP SCH ×4 (08:07→21:56)
[2022-08-21] MEDS: VITAMINS A AND D OINT 42 GM TUBE TP SCH ×3 (08:07→08:08)
[2022-08-21] MEDS: HYDROGEN PEROXIDE 3% 118 ML BOTTLE TOP SCH ×2 (08:12→18:53)
[2022-08-21] MEDS: JEVITY 1.2 1000 ML LIQUID GT PRN (17:26)
[2022-08-21 20:00] VITALS: TEMP 98.1
[2022-08-21] MEDS: MIRALAX 17 GM POWD.PACK GT SCH (21:56)
[2022-08-22] MEDS: ASCORBIC ACID 500 MG TABLET GT SCH (05:51)
[2022-08-22] MEDS: BACLOFEN 10 MG TABLET GT SCH ×3 (05:51→21:47)
[2022-08-22] MEDS: OMEPRAZOLE 20 MG CAPSULE.DR GT SCH ×2 (05:51→21:46)
[2022-08-22] MEDS: ARGININE/GLUTAMINE/CALCIUM BMB 1 EACH POWD.PACK GT SCH ×2 (05:51→17:17)
[2022-08-22 07:20] VITALS: TEMP 97.7
[2022-08-22] MEDS: IPRATROPIUM BROMIDE 0.5 MG/2.5 ML NEBU NEB SCH ×4 (08:04→19:14)
[2022-08-22] MEDS: ALBUTEROL SULFATE 2.5 MG/3 ML NEBU NEB SCH ×4 (08:04→19:14)
[2022-08-22] MEDS: HYDROGEN PEROXIDE 3% 118 ML BOTTLE TOP SCH ×2 (08:04→21:20)
[2022-08-22] MEDS: PHENYTOIN 100 MG/4 ML UDC GT SCH ×2 (08:49→21:43)
[2022-08-22] MEDS: PROTEIN SUPPLEMENT (PROSTAT) 30 ML LIQUID GT SCH (08:49)
[2022-08-22] MEDS: PHENOBARBITAL 64.8 MG TABLET GT SCH ×2 (08:50→21:45)
[2022-08-22] MEDS: CHOLECALCIFEROL 400 UNITS TABLET GT SCH ×2 (08:51→21:46)
[2022-08-22] MEDS: COD LIVER OIL/ZINC OXIDE OINT 113 GM TUBE TP SCH ×3 (08:51→21:46)
[2022-08-22] MEDS: CULTURELLE CAPSULE GT SCH ×2 (08:52→21:43)
[2022-08-22] MEDS: REMEDY ESSENTIAL ZINC PASTE 113 GM TP SCH ×2 (09:00→21:46)
[2022-08-22] MEDS: VITAMINS A AND D OINT 42 GM TUBE TP SCH ×3 (09:00)
[2022-08-22] MEDS: NYSTATIN CREAM 30 GM TUBE TP SCH (09:00)
[2022-08-22] MEDS: JEVITY 1.2 1000 ML LIQUID GT PRN (17:24)
[2022-08-22 20:00] VITALS: TEMP 98.1
[2022-08-22] MEDS: MIRALAX 17 GM POWD.PACK GT SCH (21:46)
[2022-08-23] MEDS: ASCORBIC ACID 500 MG TABLET GT SCH (05:38)
[2022-08-23] MEDS: ARGININE/GLUTAMINE/CALCIUM BMB 1 EACH POWD.PACK GT SCH ×2 (05:38→17:09)
[2022-08-23] MEDS: BACLOFEN 10 MG TABLET GT SCH ×3 (05:38→22:10)
[2022-08-23] MEDS: OMEPRAZOLE 20 MG CAPSULE.DR GT SCH ×2 (05:39→21:49)
[2022-08-23] MEDS: HYDROGEN PEROXIDE 3% 118 ML BOTTLE TOP SCH ×2 (07:44→20:24)
[2022-08-23] MEDS: IPRATROPIUM BROMIDE 0.5 MG/2.5 ML NEBU NEB SCH ×4 (07:44→20:24)
[2022-08-23] MEDS: ALBUTEROL SULFATE 2.5 MG/3 ML NEBU NEB SCH ×4 (07:44→20:24)
[2022-08-23 07:50] VITALS: TEMP 97.4
[2022-08-23] MEDS: PROTEIN SUPPLEMENT (PROSTAT) 30 ML LIQUID GT SCH (08:31)
[2022-08-23] MEDS: CULTURELLE CAPSULE GT SCH ×2 (08:32→21:45)
[2022-08-23] MEDS: PHENYTOIN 100 MG/4 ML UDC GT SCH ×2 (08:33→21:48)
[2022-08-23] MEDS: CHOLECALCIFEROL 400 UNITS TABLET GT SCH ×2 (08:34→21:51)
[2022-08-23] MEDS: COD LIVER OIL/ZINC OXIDE OINT 113 GM TUBE TP SCH ×2 (08:34→21:51)
[2022-08-23] MEDS: VITAMINS A AND D OINT 42 GM TUBE TP SCH ×3 (08:34)
[2022-08-23] MEDS: REMEDY ESSENTIAL ZINC PASTE 113 GM TP SCH ×2 (08:34→21:51)
[2022-08-23] MEDS: PHENOBARBITAL 64.8 MG TABLET GT SCH ×2 (08:40→21:49)
[2022-08-23 20:00] VITALS: TEMP 98
[2022-08-23] MEDS: MIRALAX 17 GM POWD.PACK GT SCH (21:49)
[2022-08-24] MEDS: ARGININE/GLUTAMINE/CALCIUM BMB 1 EACH POWD.PACK GT SCH ×2 (05:04→18:03)
[2022-08-24] MEDS: ASCORBIC ACID 500 MG TABLET GT SCH (05:04)
[2022-08-24] MEDS: BACLOFEN 10 MG TABLET GT SCH ×3 (05:41→21:02)
[2022-08-24] MEDS: OMEPRAZOLE 20 MG CAPSULE.DR GT SCH ×2 (05:41→20:57)
[2022-08-24] MEDS: IPRATROPIUM BROMIDE 0.5 MG/2.5 ML NEBU NEB SCH ×4 (07:29→19:10)
[2022-08-24] MEDS: ALBUTEROL SULFATE 2.5 MG/3 ML NEBU NEB SCH ×4 (07:29→19:10)
[2022-08-24] MEDS: HYDROGEN PEROXIDE 3% 118 ML BOTTLE TOP SCH ×2 (07:30→19:10)
[2022-08-24 08:00] VITALS: TEMP 97.7
[2022-08-24] MEDS: CHOLECALCIFEROL 400 UNITS TABLET GT SCH ×2 (08:14→20:57)
[2022-08-24] MEDS: PROTEIN SUPPLEMENT (PROSTAT) 30 ML LIQUID GT SCH (08:14)
[2022-08-24] MEDS: PHENOBARBITAL 64.8 MG TABLET GT SCH ×2 (08:14→21:02)
[2022-08-24] MEDS: REMEDY ESSENTIAL ZINC PASTE 113 GM TP SCH ×2 (08:14→20:57)
[2022-08-24] MEDS: CULTURELLE CAPSULE GT SCH ×2 (08:14→20:55)
[2022-08-24] MEDS: COD LIVER OIL/ZINC OXIDE OINT 113 GM TUBE TP SCH ×2 (08:14→20:57)
[2022-08-24] MEDS: PHENYTOIN 100 MG/4 ML UDC GT SCH ×2 (08:14→20:56)
[2022-08-24] MEDS: VITAMINS A AND D OINT 42 GM TUBE TP SCH ×3 (08:14)
[2022-08-24] MEDS: JEVITY 1.2 1000 ML LIQUID GT PRN (14:44)
[2022-08-24 20:49] VITALS: TEMP 98
[2022-08-24] MEDS: MIRALAX 17 GM POWD.PACK GT SCH (20:57)
[2022-08-25] MEDS: BACLOFEN 10 MG TABLET GT SCH ×3 (05:09→22:52)
[2022-08-25] MEDS: ASCORBIC ACID 500 MG TABLET GT SCH (05:09)
[2022-08-25] MEDS: ARGININE/GLUTAMINE/CALCIUM BMB 1 EACH POWD.PACK GT SCH ×2 (05:09→17:48)
[2022-08-25] MEDS: OMEPRAZOLE 20 MG CAPSULE.DR GT SCH ×2 (05:10→20:23)
[2022-08-25 07:27] VITALS: TEMP 98
[2022-08-25] MEDS: IPRATROPIUM BROMIDE 0.5 MG/2.5 ML NEBU NEB SCH ×4 (07:27→19:15)
[2022-08-25] MEDS: ALBUTEROL SULFATE 2.5 MG/3 ML NEBU NEB SCH ×4 (07:27→19:15)
[2022-08-25] MEDS: HYDROGEN PEROXIDE 3% 118 ML BOTTLE TOP SCH ×2 (08:03→19:15)
[2022-08-25] MEDS: CHOLECALCIFEROL 400 UNITS TABLET GT SCH ×2 (08:12→20:23)
[2022-08-25] MEDS: CULTURELLE CAPSULE GT SCH ×2 (08:12→20:23)
[2022-08-25] MEDS: PHENOBARBITAL 64.8 MG TABLET GT SCH ×2 (08:12→20:23)
[2022-08-25] MEDS: PROTEIN SUPPLEMENT (PROSTAT) 30 ML LIQUID GT SCH (08:12)
[2022-08-25] MEDS: VITAMINS A AND D OINT 42 GM TUBE TP SCH ×3 (08:12)
[2022-08-25] MEDS: COD LIVER OIL/ZINC OXIDE OINT 113 GM TUBE TP SCH ×2 (08:12→20:23)
[2022-08-25] MEDS: REMEDY ESSENTIAL ZINC PASTE 113 GM TP SCH ×2 (08:12→20:23)
[2022-08-25] MEDS: PHENYTOIN 100 MG/4 ML UDC GT SCH ×2 (08:12→20:23)
[2022-08-25] MEDS: JEVITY 1.2 1000 ML LIQUID GT PRN (14:38)
[2022-08-25] MEDS: MIRALAX 17 GM POWD.PACK GT SCH (20:23)
[2022-08-25 20:59] VITALS: TEMP 98
[2022-08-26] MEDS: BACLOFEN 10 MG TABLET GT SCH ×3 (05:03→22:14)
[2022-08-26] MEDS: ASCORBIC ACID 500 MG TABLET GT SCH (05:03)
[2022-08-26] MEDS: ARGININE/GLUTAMINE/CALCIUM BMB 1 EACH POWD.PACK GT SCH ×2 (05:03→18:47)
[2022-08-26] MEDS: OMEPRAZOLE 20 MG CAPSULE.DR GT SCH ×2 (06:06→20:44)
[2022-08-26] MEDS: IPRATROPIUM BROMIDE 0.5 MG/2.5 ML NEBU NEB SCH ×4 (07:19→19:22)
[2022-08-26] MEDS: HYDROGEN PEROXIDE 3% 118 ML BOTTLE TOP SCH ×2 (07:19→20:44)
[2022-08-26] MEDS: ALBUTEROL SULFATE 2.5 MG/3 ML NEBU NEB SCH ×4 (07:19→19:22)
[2022-08-26 07:22] VITALS: TEMP 97.7
[2022-08-26] MEDS: PROTEIN SUPPLEMENT (PROSTAT) 30 ML LIQUID GT SCH (08:00)
[2022-08-26] MEDS: PHENOBARBITAL 64.8 MG TABLET GT SCH ×2 (09:57→20:44)
[2022-08-26] MEDS: CULTURELLE CAPSULE GT SCH ×2 (09:57→20:44)
[2022-08-26] MEDS: PHENYTOIN 100 MG/4 ML UDC GT SCH ×2 (09:57→20:44)
[2022-08-26] MEDS: CHOLECALCIFEROL 400 UNITS TABLET GT SCH ×2 (09:58→20:44)
[2022-08-26] MEDS: VITAMINS A AND D OINT 42 GM TUBE TP SCH ×3 (09:58)
[2022-08-26] MEDS: COD LIVER OIL/ZINC OXIDE OINT 113 GM TUBE TP SCH ×2 (09:58→20:44)
[2022-08-26] MEDS: REMEDY ESSENTIAL ZINC PASTE 113 GM TP SCH ×2 (09:58→20:44)
[2022-08-26] MEDS: JEVITY 1.2 1000 ML LIQUID GT PRN (14:43)
[2022-08-26 20:23] VITALS: TEMP 98.5
[2022-08-26] MEDS: MIRALAX 17 GM POWD.PACK GT SCH (20:44)
[2022-08-27] MEDS: OMEPRAZOLE 20 MG CAPSULE.DR GT SCH ×2 (06:11→21:31)
[2022-08-27] MEDS: ARGININE/GLUTAMINE/CALCIUM BMB 1 EACH POWD.PACK GT SCH ×2 (06:11→17:49)
[2022-08-27] MEDS: BACLOFEN 10 MG TABLET GT SCH ×3 (06:11→21:32)
[2022-08-27] MEDS: ASCORBIC ACID 500 MG TABLET GT SCH (06:11)
[2022-08-27] MEDS: JEVITY 1.2 1000 ML LIQUID GT PRN (06:34)
[2022-08-27 07:24] VITALS: TEMP 98.4
[2022-08-27] MEDS: HYDROGEN PEROXIDE 3% 118 ML BOTTLE TOP SCH ×2 (07:58→19:15)
[2022-08-27] MEDS: IPRATROPIUM BROMIDE 0.5 MG/2.5 ML NEBU NEB SCH ×4 (07:58→19:15)
[2022-08-27] MEDS: ALBUTEROL SULFATE 2.5 MG/3 ML NEBU NEB SCH ×4 (07:58→19:15)
[2022-08-27] MEDS: PROTEIN SUPPLEMENT (PROSTAT) 30 ML LIQUID GT SCH (08:00)
[2022-08-27] MEDS: CULTURELLE CAPSULE GT SCH ×2 (09:36→21:31)
[2022-08-27] MEDS: PHENYTOIN 100 MG/4 ML UDC GT SCH ×2 (09:36→21:31)
[2022-08-27] MEDS: PHENOBARBITAL 64.8 MG TABLET GT SCH ×2 (09:43→21:31)
[2022-08-27] MEDS: CHOLECALCIFEROL 400 UNITS TABLET GT SCH ×2 (09:43→21:31)
[2022-08-27] MEDS: VITAMINS A AND D OINT 42 GM TUBE TP SCH ×3 (09:44→09:45)
[2022-08-27] MEDS: REMEDY ESSENTIAL ZINC PASTE 113 GM TP SCH ×2 (09:44→21:31)
[2022-08-27] MEDS: COD LIVER OIL/ZINC OXIDE OINT 113 GM TUBE TP SCH ×2 (09:44→21:31)
[2022-08-27 20:00] VITALS: TEMP 98.3
[2022-08-27] MEDS: MIRALAX 17 GM POWD.PACK GT SCH (21:31)
[2022-08-28] MEDS: OMEPRAZOLE 20 MG CAPSULE.DR GT SCH ×2 (06:23→22:00)
[2022-08-28] MEDS: BACLOFEN 10 MG TABLET GT SCH ×3 (06:23→22:11)
[2022-08-28] MEDS: ARGININE/GLUTAMINE/CALCIUM BMB 1 EACH POWD.PACK GT SCH ×2 (06:23→18:14)
[2022-08-28] MEDS: ASCORBIC ACID 500 MG TABLET GT SCH (06:23)
[2022-08-28] MEDS: ALBUTEROL SULFATE 2.5 MG/3 ML NEBU NEB SCH ×4 (07:57→19:14)
[2022-08-28] MEDS: HYDROGEN PEROXIDE 3% 118 ML BOTTLE TOP SCH ×2 (07:57→19:14)
[2022-08-28] MEDS: IPRATROPIUM BROMIDE 0.5 MG/2.5 ML NEBU NEB SCH ×4 (07:57→19:14)
[2022-08-28] MEDS: PROTEIN SUPPLEMENT (PROSTAT) 30 ML LIQUID GT SCH (08:00)
[2022-08-28] MEDS: REMEDY ESSENTIAL ZINC PASTE 113 GM TP SCH ×2 (09:39→22:00)
[2022-08-28] MEDS: COD LIVER OIL/ZINC OXIDE OINT 113 GM TUBE TP SCH ×2 (09:39→22:00)
[2022-08-28] MEDS: VITAMINS A AND D OINT 42 GM TUBE TP SCH ×3 (09:39→09:40)
[2022-08-28] MEDS: PHENYTOIN 100 MG/4 ML UDC GT SCH ×2 (09:39→22:00)
[2022-08-28] MEDS: PHENOBARBITAL 64.8 MG TABLET GT SCH ×2 (09:39→22:00)
[2022-08-28] MEDS: CULTURELLE CAPSULE GT SCH ×2 (09:39→22:00)
[2022-08-28] MEDS: CHOLECALCIFEROL 400 UNITS TABLET GT SCH ×2 (09:39→22:00)
[2022-08-28] MEDS: JEVITY 1.2 1000 ML LIQUID GT PRN (13:25)
[2022-08-28 20:20] VITALS: TEMP 98.5
[2022-08-28] MEDS: MIRALAX 17 GM POWD.PACK GT SCH (22:00)
[2022-08-29] MEDS: ARGININE/GLUTAMINE/CALCIUM BMB 1 EACH POWD.PACK GT SCH ×2 (06:27→18:03)
[2022-08-29] MEDS: BACLOFEN 10 MG TABLET GT SCH ×3 (06:27→22:33)
[2022-08-29] MEDS: ASCORBIC ACID 500 MG TABLET GT SCH (06:27)
[2022-08-29] MEDS: OMEPRAZOLE 20 MG CAPSULE.DR GT SCH ×2 (06:32→21:00)
[2022-08-29] MEDS: ALBUTEROL SULFATE 2.5 MG/3 ML NEBU NEB SCH ×4 (06:40→19:02)
[2022-08-29] MEDS: IPRATROPIUM BROMIDE 0.5 MG/2.5 ML NEBU NEB SCH ×4 (06:40→19:02)
[2022-08-29 08:00] VITALS: TEMP 97.6
[2022-08-29] MEDS: PROTEIN SUPPLEMENT (PROSTAT) 30 ML LIQUID GT SCH (08:19)
[2022-08-29] MEDS: PHENYTOIN 100 MG/4 ML UDC GT SCH ×2 (08:20→21:00)
[2022-08-29] MEDS: CHOLECALCIFEROL 400 UNITS TABLET GT SCH ×2 (08:22→21:00)
[2022-08-29] MEDS: PHENOBARBITAL 64.8 MG TABLET GT SCH ×2 (08:22→21:00)
[2022-08-29] MEDS: REMEDY ESSENTIAL ZINC PASTE 113 GM TP SCH ×2 (08:23→21:00)
[2022-08-29] MEDS: COD LIVER OIL/ZINC OXIDE OINT 113 GM TUBE TP SCH ×2 (08:24→21:00)
[2022-08-29] MEDS: VITAMINS A AND D OINT 42 GM TUBE TP SCH ×3 (08:24)
[2022-08-29] MEDS: CULTURELLE CAPSULE GT SCH ×2 (08:32→21:00)
[2022-08-29] MEDS: HYDROGEN PEROXIDE 3% 118 ML BOTTLE TOP SCH ×2 (09:25→19:02)
[2022-08-29] MEDS: JEVITY 1.2 1000 ML LIQUID GT PRN (10:37)
[2022-08-29 20:47] VITALS: TEMP 98.6
[2022-08-29] MEDS: MIRALAX 17 GM POWD.PACK GT SCH (21:00)
[2022-08-30] MEDS: ARGININE/GLUTAMINE/CALCIUM BMB 1 EACH POWD.PACK GT SCH ×2 (05:40→17:51)
[2022-08-30] MEDS: ASCORBIC ACID 500 MG TABLET GT SCH (05:40)
[2022-08-30] MEDS: BACLOFEN 10 MG TABLET GT SCH ×3 (05:40→21:31)
[2022-08-30] MEDS: OMEPRAZOLE 20 MG CAPSULE.DR GT SCH ×2 (05:40→21:30)
[2022-08-30] MEDS: HYDROGEN PEROXIDE 3% 118 ML BOTTLE TOP SCH ×2 (07:40→21:43)
[2022-08-30] MEDS: IPRATROPIUM BROMIDE 0.5 MG/2.5 ML NEBU NEB SCH ×4 (07:40→19:10)
[2022-08-30] MEDS: ALBUTEROL SULFATE 2.5 MG/3 ML NEBU NEB SCH ×4 (07:40→19:10)
[2022-08-30 08:00] VITALS: TEMP 97.8
[2022-08-30] MEDS: PROTEIN SUPPLEMENT (PROSTAT) 30 ML LIQUID GT SCH (08:00)
[2022-08-30] MEDS: VITAMINS A AND D OINT 42 GM TUBE TP SCH ×3 (09:00)
[2022-08-30] MEDS: REMEDY ESSENTIAL ZINC PASTE 113 GM TP SCH ×2 (09:00→21:31)
[2022-08-30] MEDS: COD LIVER OIL/ZINC OXIDE OINT 113 GM TUBE TP SCH ×2 (09:00→21:31)
[2022-08-30] MEDS: CULTURELLE CAPSULE GT SCH ×2 (09:28→21:19)
[2022-08-30] MEDS: PHENYTOIN 100 MG/4 ML UDC GT SCH ×2 (09:29→21:30)
[2022-08-30] MEDS: PHENOBARBITAL 64.8 MG TABLET GT SCH ×2 (09:33→21:30)
[2022-08-30] MEDS: CHOLECALCIFEROL 400 UNITS TABLET GT SCH ×2 (09:33→21:30)
[2022-08-30] MEDS: JEVITY 1.2 1000 ML LIQUID GT PRN (10:56)
[2022-08-30 20:30] VITALS: TEMP 98.1
[2022-08-30] MEDS: MIRALAX 17 GM POWD.PACK GT SCH (21:30)
[2022-08-31] MEDS: ASCORBIC ACID 500 MG TABLET GT SCH (05:18)
[2022-08-31] MEDS: BACLOFEN 10 MG TABLET GT SCH ×3 (05:18→21:03)
[2022-08-31] MEDS: OMEPRAZOLE 20 MG CAPSULE.DR GT SCH ×2 (05:18→20:56)
[2022-08-31] MEDS: ARGININE/GLUTAMINE/CALCIUM BMB 1 EACH POWD.PACK GT SCH ×2 (05:18→17:08)
[2022-08-31] MEDS: HYDROGEN PEROXIDE 3% 118 ML BOTTLE TOP SCH ×3 (07:26→20:38)
[2022-08-31] MEDS: IPRATROPIUM BROMIDE 0.5 MG/2.5 ML NEBU NEB SCH ×5 (07:26→19:31)
[2022-08-31] MEDS: ALBUTEROL SULFATE 2.5 MG/3 ML NEBU NEB SCH ×5 (07:26→19:31)
[2022-08-31 08:00] VITALS: TEMP 98.5
[2022-08-31] MEDS: PROTEIN SUPPLEMENT (PROSTAT) 30 ML LIQUID GT SCH (08:16)
[2022-08-31] MEDS: CULTURELLE CAPSULE GT SCH ×2 (08:27→20:54)
[2022-08-31] MEDS: CHOLECALCIFEROL 400 UNITS TABLET GT SCH ×2 (08:31→20:56)
[2022-08-31] MEDS: PHENYTOIN 100 MG/4 ML UDC GT SCH ×2 (08:31→20:54)
[2022-08-31] MEDS: PHENOBARBITAL 64.8 MG TABLET GT SCH ×2 (08:31→20:56)
[2022-08-31] MEDS: COD LIVER OIL/ZINC OXIDE OINT 113 GM TUBE TP SCH ×2 (08:32→20:56)
[2022-08-31] MEDS: VITAMINS A AND D OINT 42 GM TUBE TP SCH ×3 (08:33)
[2022-08-31] MEDS: REMEDY ESSENTIAL ZINC PASTE 113 GM TP SCH ×2 (08:33→20:56)
[2022-08-31 20:45] VITALS: TEMP 98.2
[2022-08-31] MEDS: MIRALAX 17 GM POWD.PACK GT SCH (20:56)
[2022-09-01] MEDS: JEVITY 1.2 1000 ML LIQUID GT PRN (03:00)
[2022-09-01] MEDS: BACLOFEN 10 MG TABLET GT SCH ×3 (05:26→22:00)
[2022-09-01] MEDS: ASCORBIC ACID 500 MG TABLET GT SCH (05:26)
[2022-09-01] MEDS: ARGININE/GLUTAMINE/CALCIUM BMB 1 EACH POWD.PACK GT SCH ×2 (05:26→17:52)
[2022-09-01] MEDS: OMEPRAZOLE 20 MG CAPSULE.DR GT SCH ×2 (05:30→20:49)
[2022-09-01] MEDS: IPRATROPIUM BROMIDE 0.5 MG/2.5 ML NEBU NEB SCH ×4 (07:16→19:12)
[2022-09-01] MEDS: ALBUTEROL SULFATE 2.5 MG/3 ML NEBU NEB SCH ×4 (07:16→19:12)
[2022-09-01 07:20] VITALS: TEMP 97.7
[2022-09-01] MEDS: PROTEIN SUPPLEMENT (PROSTAT) 30 ML LIQUID GT SCH (08:00)
[2022-09-01] MEDS: HYDROGEN PEROXIDE 3% 118 ML BOTTLE TOP SCH ×2 (09:00→19:12)
[2022-09-01] MEDS: PHENOBARBITAL 64.8 MG TABLET GT SCH ×2 (09:40→20:48)
[2022-09-01] MEDS: PHENYTOIN 100 MG/4 ML UDC GT SCH ×2 (09:40→20:48)
[2022-09-01] MEDS: CULTURELLE CAPSULE GT SCH ×2 (09:40→20:49)
[2022-09-01] MEDS: CHOLECALCIFEROL 400 UNITS TABLET GT SCH ×2 (09:41→20:49)
[2022-09-01] MEDS: VITAMINS A AND D OINT 42 GM TUBE TP SCH ×3 (09:41→09:42)
[2022-09-01] MEDS: COD LIVER OIL/ZINC OXIDE OINT 113 GM TUBE TP SCH ×2 (09:41→20:49)
[2022-09-01] MEDS: REMEDY ESSENTIAL ZINC PASTE 113 GM TP SCH ×2 (09:41→20:49)
[2022-09-01] MEDS: MIRALAX 17 GM POWD.PACK GT SCH (20:48)
[2022-09-01 21:25] VITALS: TEMP 97.5
[2022-09-02] MEDS: ARGININE/GLUTAMINE/CALCIUM BMB 1 EACH POWD.PACK GT SCH ×2 (06:09→17:23)
[2022-09-02] MEDS: OMEPRAZOLE 20 MG CAPSULE.DR GT SCH ×2 (06:10→21:00)
[2022-09-02] MEDS: BACLOFEN 10 MG TABLET GT SCH ×3 (06:10→22:04)
[2022-09-02] MEDS: ASCORBIC ACID 500 MG TABLET GT SCH (06:10)
[2022-09-02] MEDS: JEVITY 1.2 1000 ML LIQUID GT PRN (06:11)
[2022-09-02 07:24] VITALS: TEMP 97.6
[2022-09-02] MEDS: ALBUTEROL SULFATE 2.5 MG/3 ML NEBU NEB SCH ×4 (08:05→19:21)
[2022-09-02] MEDS: IPRATROPIUM BROMIDE 0.5 MG/2.5 ML NEBU NEB SCH ×4 (08:05→19:21)
[2022-09-02] MEDS: HYDROGEN PEROXIDE 3% 118 ML BOTTLE TOP SCH ×2 (08:05→19:21)
[2022-09-02] MEDS: CULTURELLE CAPSULE GT SCH ×2 (08:54→21:00)
[2022-09-02] MEDS: COD LIVER OIL/ZINC OXIDE OINT 113 GM TUBE TP SCH ×2 (08:54→21:00)
[2022-09-02] MEDS: REMEDY ESSENTIAL ZINC PASTE 113 GM TP SCH ×2 (08:54→21:00)
[2022-09-02] MEDS: VITAMINS A AND D OINT 42 GM TUBE TP SCH ×3 (08:54)
[2022-09-02] MEDS: PROTEIN SUPPLEMENT (PROSTAT) 30 ML LIQUID GT SCH (08:54)
[2022-09-02] MEDS: PHENYTOIN 100 MG/4 ML UDC GT SCH ×2 (08:54→21:00)
[2022-09-02] MEDS: CHOLECALCIFEROL 400 UNITS TABLET GT SCH ×2 (08:54→21:00)
[2022-09-02] MEDS: PHENOBARBITAL 64.8 MG TABLET GT SCH ×2 (08:54→21:00)
[2022-09-02 20:00] VITALS: TEMP 98
[2022-09-02] MEDS: MIRALAX 17 GM POWD.PACK GT SCH (21:00)
[2022-09-03] MEDS: OMEPRAZOLE 20 MG CAPSULE.DR GT SCH ×2 (05:55→20:46)
[2022-09-03] MEDS: ASCORBIC ACID 500 MG TABLET GT SCH (05:55)
[2022-09-03] MEDS: ARGININE/GLUTAMINE/CALCIUM BMB 1 EACH POWD.PACK GT SCH ×2 (05:55→17:15)
[2022-09-03] MEDS: BACLOFEN 10 MG TABLET GT SCH ×3 (05:55→22:31)
[2022-09-03 07:28] VITALS: TEMP 97.8
[2022-09-03] MEDS: PROTEIN SUPPLEMENT (PROSTAT) 30 ML LIQUID GT SCH (08:00)
[2022-09-03] MEDS: HYDROGEN PEROXIDE 3% 118 ML BOTTLE TOP SCH ×2 (08:26→19:06)
[2022-09-03] MEDS: IPRATROPIUM BROMIDE 0.5 MG/2.5 ML NEBU NEB SCH ×4 (08:26→19:06)
[2022-09-03] MEDS: ALBUTEROL SULFATE 2.5 MG/3 ML NEBU NEB SCH ×4 (08:26→19:06)
[2022-09-03] MEDS: CULTURELLE CAPSULE GT SCH ×2 (09:52→20:42)
[2022-09-03] MEDS: PHENYTOIN 100 MG/4 ML UDC GT SCH ×2 (09:54→20:42)
[2022-09-03] MEDS: CHOLECALCIFEROL 400 UNITS TABLET GT SCH ×2 (09:56→20:46)
[2022-09-03] MEDS: COD LIVER OIL/ZINC OXIDE OINT 113 GM TUBE TP SCH ×2 (09:56→20:52)
[2022-09-03] MEDS: PHENOBARBITAL 64.8 MG TABLET GT SCH ×2 (09:56→20:45)
[2022-09-03] MEDS: REMEDY ESSENTIAL ZINC PASTE 113 GM TP SCH ×2 (09:56→20:52)
[2022-09-03] MEDS: VITAMINS A AND D OINT 42 GM TUBE TP SCH ×3 (09:56)
[2022-09-03 19:52] VITALS: TEMP 98
[2022-09-03] MEDS: MIRALAX 17 GM POWD.PACK GT SCH (20:46)
[2022-09-04] MEDS: OMEPRAZOLE 20 MG CAPSULE.DR GT SCH ×2 (06:05→20:13)
[2022-09-04] MEDS: ARGININE/GLUTAMINE/CALCIUM BMB 1 EACH POWD.PACK GT SCH ×2 (06:05→17:11)
[2022-09-04] MEDS: JEVITY 1.2 1000 ML LIQUID GT PRN (06:05)
[2022-09-04] MEDS: ASCORBIC ACID 500 MG TABLET GT SCH (06:05)
[2022-09-04] MEDS: BACLOFEN 10 MG TABLET GT SCH ×3 (06:05→21:50)
[2022-09-04 07:20] VITALS: TEMP 97.6
[2022-09-04] MEDS: IPRATROPIUM BROMIDE 0.5 MG/2.5 ML NEBU NEB SCH ×4 (07:36→19:00)
[2022-09-04] MEDS: ALBUTEROL SULFATE 2.5 MG/3 ML NEBU NEB SCH ×4 (07:36→19:00)
[2022-09-04] MEDS: HYDROGEN PEROXIDE 3% 118 ML BOTTLE TOP SCH ×2 (07:36→19:00)
[2022-09-04] MEDS: PROTEIN SUPPLEMENT (PROSTAT) 30 ML LIQUID GT SCH (08:56)
[2022-09-04] MEDS: CULTURELLE CAPSULE GT SCH ×2 (08:57→20:13)
[2022-09-04] MEDS: PHENYTOIN 100 MG/4 ML UDC GT SCH ×2 (08:57→20:13)
[2022-09-04] MEDS: PHENOBARBITAL 64.8 MG TABLET GT SCH ×2 (08:59→20:13)
[2022-09-04] MEDS: VITAMINS A AND D OINT 42 GM TUBE TP SCH ×3 (09:00)
[2022-09-04] MEDS: COD LIVER OIL/ZINC OXIDE OINT 113 GM TUBE TP SCH ×2 (09:00→20:14)
[2022-09-04] MEDS: CHOLECALCIFEROL 400 UNITS TABLET GT SCH ×2 (09:00→20:13)
[2022-09-04] MEDS: REMEDY ESSENTIAL ZINC PASTE 113 GM TP SCH ×2 (09:00→20:14)
[2022-09-04 19:49] VITALS: TEMP 98.1
[2022-09-04] MEDS: MIRALAX 17 GM POWD.PACK GT SCH (20:13)
[2022-09-05] MEDS: ASCORBIC ACID 500 MG TABLET GT SCH (05:28)
[2022-09-05] MEDS: BACLOFEN 10 MG TABLET GT SCH ×3 (05:28→21:22)
[2022-09-05] MEDS: ARGININE/GLUTAMINE/CALCIUM BMB 1 EACH POWD.PACK GT SCH ×2 (05:28→18:33)
[2022-09-05] MEDS: JEVITY 1.2 1000 ML LIQUID GT PRN (05:31)
[2022-09-05] MEDS: OMEPRAZOLE 20 MG CAPSULE.DR GT SCH ×2 (05:31→20:14)
[2022-09-05] MEDS: HYDROGEN PEROXIDE 3% 118 ML BOTTLE TOP SCH ×2 (07:04→19:12)
[2022-09-05] MEDS: IPRATROPIUM BROMIDE 0.5 MG/2.5 ML NEBU NEB SCH ×4 (07:04→19:12)
[2022-09-05] MEDS: ALBUTEROL SULFATE 2.5 MG/3 ML NEBU NEB SCH ×4 (07:04→19:12)
[2022-09-05 07:57] VITALS: TEMP 97.7
[2022-09-05] MEDS: PROTEIN SUPPLEMENT (PROSTAT) 30 ML LIQUID GT SCH (08:00)
[2022-09-05] MEDS: COD LIVER OIL/ZINC OXIDE OINT 113 GM TUBE TP SCH ×2 (09:04→20:15)
[2022-09-05] MEDS: VITAMINS A AND D OINT 42 GM TUBE TP SCH ×3 (09:04)
[2022-09-05] MEDS: REMEDY ESSENTIAL ZINC PASTE 113 GM TP SCH ×2 (09:04→20:15)
[2022-09-05] MEDS: PHENOBARBITAL 64.8 MG TABLET GT SCH ×2 (09:04→20:14)
[2022-09-05] MEDS: CULTURELLE CAPSULE GT SCH ×2 (09:04→20:14)
[2022-09-05] MEDS: CHOLECALCIFEROL 400 UNITS TABLET GT SCH ×2 (09:04→20:14)
[2022-09-05] MEDS: PHENYTOIN 100 MG/4 ML UDC GT SCH ×2 (09:04→20:14)
[2022-09-05 19:46] VITALS: TEMP 98
[2022-09-05] MEDS: MIRALAX 17 GM POWD.PACK GT SCH (20:14)
[2022-09-06] MEDS: OMEPRAZOLE 20 MG CAPSULE.DR GT SCH ×2 (05:32→21:30)
[2022-09-06] MEDS: BACLOFEN 10 MG TABLET GT SCH ×3 (05:32→21:30)
[2022-09-06] MEDS: JEVITY 1.2 1000 ML LIQUID GT PRN (05:32)
[2022-09-06] MEDS: ASCORBIC ACID 500 MG TABLET GT SCH (05:32)
[2022-09-06] MEDS: ARGININE/GLUTAMINE/CALCIUM BMB 1 EACH POWD.PACK GT SCH ×2 (05:32→18:48)
[2022-09-06] MEDS: HYDROGEN PEROXIDE 3% 118 ML BOTTLE TOP SCH ×2 (07:10→19:01)
[2022-09-06] MEDS: ALBUTEROL SULFATE 2.5 MG/3 ML NEBU NEB SCH ×4 (07:10→19:00)
[2022-09-06] MEDS: IPRATROPIUM BROMIDE 0.5 MG/2.5 ML NEBU NEB SCH ×4 (07:10→19:00)
[2022-09-06 07:41] VITALS: TEMP 97.5
[2022-09-06] MEDS: PROTEIN SUPPLEMENT (PROSTAT) 30 ML LIQUID GT SCH (08:51)
[2022-09-06] MEDS: CULTURELLE CAPSULE GT SCH ×2 (08:52→21:27)
[2022-09-06] MEDS: PHENYTOIN 100 MG/4 ML UDC GT SCH ×2 (08:52→21:29)
[2022-09-06] MEDS: PHENOBARBITAL 64.8 MG TABLET GT SCH ×2 (08:54→21:29)
[2022-09-06] MEDS: COD LIVER OIL/ZINC OXIDE OINT 113 GM TUBE TP SCH ×2 (08:54→21:30)
[2022-09-06] MEDS: CHOLECALCIFEROL 400 UNITS TABLET GT SCH ×2 (08:54→21:30)
[2022-09-06] MEDS: REMEDY ESSENTIAL ZINC PASTE 113 GM TP SCH ×2 (08:54→21:30)
[2022-09-06] MEDS: VITAMINS A AND D OINT 42 GM TUBE TP SCH ×3 (09:00)
[2022-09-06 19:53] VITALS: TEMP 98.1
[2022-09-06] MEDS: MIRALAX 17 GM POWD.PACK GT SCH (21:30)
[2022-09-07] MEDS: JEVITY 1.2 1000 ML LIQUID GT PRN (02:15)
[2022-09-07] MEDS: OMEPRAZOLE 20 MG CAPSULE.DR GT SCH ×2 (05:50→21:31)
[2022-09-07] MEDS: BACLOFEN 10 MG TABLET GT SCH ×3 (05:50→21:32)
[2022-09-07] MEDS: ASCORBIC ACID 500 MG TABLET GT SCH (05:50)
[2022-09-07] MEDS: ARGININE/GLUTAMINE/CALCIUM BMB 1 EACH POWD.PACK GT SCH ×2 (05:50→17:56)
[2022-09-07] MEDS: IPRATROPIUM BROMIDE 0.5 MG/2.5 ML NEBU NEB SCH ×4 (07:10→19:08)
[2022-09-07] MEDS: ALBUTEROL SULFATE 2.5 MG/3 ML NEBU NEB SCH ×4 (07:10→19:08)
[2022-09-07 07:44] VITALS: TEMP 97.7
[2022-09-07] MEDS: PROTEIN SUPPLEMENT (PROSTAT) 30 ML LIQUID GT SCH (08:00)
[2022-09-07] MEDS: CULTURELLE CAPSULE GT SCH ×2 (09:19→21:28)
[2022-09-07] MEDS: PHENYTOIN 100 MG/4 ML UDC GT SCH ×2 (09:20→21:31)
[2022-09-07] MEDS: CHOLECALCIFEROL 400 UNITS TABLET GT SCH ×2 (09:20→21:31)
[2022-09-07] MEDS: PHENOBARBITAL 64.8 MG TABLET GT SCH ×2 (09:20→21:31)
[2022-09-07] MEDS: HYDROGEN PEROXIDE 3% 118 ML BOTTLE TOP SCH ×2 (09:20→19:00)
[2022-09-07] MEDS: VITAMINS A AND D OINT 42 GM TUBE TP SCH ×3 (09:21)
[2022-09-07] MEDS: REMEDY ESSENTIAL ZINC PASTE 113 GM TP SCH ×2 (09:21→21:32)
[2022-09-07] MEDS: COD LIVER OIL/ZINC OXIDE OINT 113 GM TUBE TP SCH ×2 (09:21→21:32)
[2022-09-07 20:00] VITALS: TEMP 98.1
[2022-09-07] MEDS: MIRALAX 17 GM POWD.PACK GT SCH (21:31)
[2022-09-08] MEDS: JEVITY 1.2 1000 ML LIQUID GT PRN (00:30)
[2022-09-08] MEDS: BACLOFEN 10 MG TABLET GT SCH ×3 (05:40→21:22)
[2022-09-08] MEDS: OMEPRAZOLE 20 MG CAPSULE.DR GT SCH ×2 (05:40→20:28)
[2022-09-08] MEDS: ARGININE/GLUTAMINE/CALCIUM BMB 1 EACH POWD.PACK GT SCH ×2 (05:40→18:30)
[2022-09-08] MEDS: ASCORBIC ACID 500 MG TABLET GT SCH (05:40)
[2022-09-08] MEDS: IPRATROPIUM BROMIDE 0.5 MG/2.5 ML NEBU NEB SCH ×4 (06:00→18:46)
[2022-09-08] MEDS: ALBUTEROL SULFATE 2.5 MG/3 ML NEBU NEB SCH ×4 (06:00→18:46)
[2022-09-08] MEDS: HYDROGEN PEROXIDE 3% 118 ML BOTTLE TOP SCH ×2 (07:22→21:00)
[2022-09-08 07:32] VITALS: TEMP 97.8
[2022-09-08] MEDS: PROTEIN SUPPLEMENT (PROSTAT) 30 ML LIQUID GT SCH (08:00)
[2022-09-08] MEDS: PHENYTOIN 100 MG/4 ML UDC GT SCH ×2 (09:07→20:27)
[2022-09-08] MEDS: CULTURELLE CAPSULE GT SCH ×2 (09:07→20:27)
[2022-09-08] MEDS: PHENOBARBITAL 64.8 MG TABLET GT SCH ×2 (09:09→20:27)
[2022-09-08] MEDS: COD LIVER OIL/ZINC OXIDE OINT 113 GM TUBE TP SCH ×2 (09:09→20:28)
[2022-09-08] MEDS: CHOLECALCIFEROL 400 UNITS TABLET GT SCH ×2 (09:09→20:28)
[2022-09-08] MEDS: REMEDY ESSENTIAL ZINC PASTE 113 GM TP SCH ×2 (09:10→20:28)
[2022-09-08] MEDS: VITAMINS A AND D OINT 42 GM TUBE TP SCH ×3 (09:10→09:11)
[2022-09-08] MEDS: MIRALAX 17 GM POWD.PACK GT SCH (20:28)
[2022-09-08 20:31] VITALS: TEMP 98.8
[2022-09-09] MEDS: OMEPRAZOLE 20 MG CAPSULE.DR GT SCH ×2 (05:30→21:00)
[2022-09-09] MEDS: BACLOFEN 10 MG TABLET GT SCH ×3 (05:30→22:00)
[2022-09-09] MEDS: ARGININE/GLUTAMINE/CALCIUM BMB 1 EACH POWD.PACK GT SCH ×2 (05:30→17:48)
[2022-09-09] MEDS: JEVITY 1.2 1000 ML LIQUID GT PRN ×2 (05:30→17:49)
[2022-09-09] MEDS: ASCORBIC ACID 500 MG TABLET GT SCH (05:30)
[2022-09-09] MEDS: ALBUTEROL SULFATE 2.5 MG/3 ML NEBU NEB SCH ×4 (07:12→19:00)
[2022-09-09] MEDS: IPRATROPIUM BROMIDE 0.5 MG/2.5 ML NEBU NEB SCH ×4 (07:12→19:00)
[2022-09-09 07:25] VITALS: TEMP 97.6
[2022-09-09] MEDS: HYDROGEN PEROXIDE 3% 118 ML BOTTLE TOP SCH ×2 (08:15→21:00)
[2022-09-09] MEDS: PROTEIN SUPPLEMENT (PROSTAT) 30 ML LIQUID GT SCH (09:00)
[2022-09-09] MEDS: PHENYTOIN 100 MG/4 ML UDC GT SCH ×2 (09:49→21:00)
[2022-09-09] MEDS: PHENOBARBITAL 64.8 MG TABLET GT SCH ×2 (09:52→21:00)
[2022-09-09] MEDS: CHOLECALCIFEROL 400 UNITS TABLET GT SCH ×2 (09:53→21:00)
[2022-09-09] MEDS: REMEDY ESSENTIAL ZINC PASTE 113 GM TP SCH ×2 (09:54→21:00)
[2022-09-09] MEDS: COD LIVER OIL/ZINC OXIDE OINT 113 GM TUBE TP SCH ×2 (09:54→21:00)
[2022-09-09] MEDS: VITAMINS A AND D OINT 42 GM TUBE TP SCH ×3 (09:54)
[2022-09-09] MEDS: CULTURELLE CAPSULE GT SCH ×2 (09:55→21:00)
[2022-09-09 19:46] VITALS: TEMP 98
[2022-09-09] MEDS: MIRALAX 17 GM POWD.PACK GT SCH (21:00)
[2022-09-10] MEDS: ASCORBIC ACID 500 MG TABLET GT SCH (05:30)
[2022-09-10] MEDS: BACLOFEN 10 MG TABLET GT SCH ×3 (05:30→21:48)
[2022-09-10] MEDS: ARGININE/GLUTAMINE/CALCIUM BMB 1 EACH POWD.PACK GT SCH ×2 (05:30→17:38)
[2022-09-10] MEDS: OMEPRAZOLE 20 MG CAPSULE.DR GT SCH ×2 (05:30→20:10)
[2022-09-10 07:24] VITALS: TEMP 97.7
[2022-09-10] MEDS: HYDROGEN PEROXIDE 3% 118 ML BOTTLE TOP SCH ×2 (07:30→19:00)
[2022-09-10] MEDS: ALBUTEROL SULFATE 2.5 MG/3 ML NEBU NEB SCH ×4 (07:30→19:00)
[2022-09-10] MEDS: IPRATROPIUM BROMIDE 0.5 MG/2.5 ML NEBU NEB SCH ×4 (07:30→19:00)
[2022-09-10] MEDS: PHENYTOIN 100 MG/4 ML UDC GT SCH ×2 (08:47→20:09)
[2022-09-10] MEDS: CULTURELLE CAPSULE GT SCH ×2 (08:47→20:09)
[2022-09-10] MEDS: PHENOBARBITAL 64.8 MG TABLET GT SCH ×2 (08:48→20:10)
[2022-09-10] MEDS: CHOLECALCIFEROL 400 UNITS TABLET GT SCH ×2 (08:49→20:10)
[2022-09-10] MEDS: COD LIVER OIL/ZINC OXIDE OINT 113 GM TUBE TP SCH ×2 (08:55→20:10)
[2022-09-10] MEDS: REMEDY ESSENTIAL ZINC PASTE 113 GM TP SCH ×2 (08:55→20:10)
[2022-09-10] MEDS: VITAMINS A AND D OINT 42 GM TUBE TP SCH ×3 (08:57→08:58)
[2022-09-10] MEDS: PROTEIN SUPPLEMENT (PROSTAT) 30 ML LIQUID GT SCH (08:59)
[2022-09-10] MEDS: JEVITY 1.2 1000 ML LIQUID GT PRN (19:14)
[2022-09-10 20:00] VITALS: TEMP 98.1
[2022-09-10] MEDS: MIRALAX 17 GM POWD.PACK GT SCH (20:10)
[2022-09-11] MEDS: ARGININE/GLUTAMINE/CALCIUM BMB 1 EACH POWD.PACK GT SCH ×2 (06:00→18:00)
[2022-09-11] MEDS: ASCORBIC ACID 500 MG TABLET GT SCH (06:00)
[2022-09-11] MEDS: BACLOFEN 10 MG TABLET GT SCH ×3 (06:00→22:00)
[2022-09-11] MEDS: OMEPRAZOLE 20 MG CAPSULE.DR GT SCH ×2 (06:30→20:13)
[2022-09-11] MEDS: ALBUTEROL SULFATE 2.5 MG/3 ML NEBU NEB SCH ×5 (07:12→19:30)
[2022-09-11] MEDS: IPRATROPIUM BROMIDE 0.5 MG/2.5 ML NEBU NEB SCH ×5 (07:12→19:30)
[2022-09-11 08:00] VITALS: TEMP 98.6
[2022-09-11] MEDS: HYDROGEN PEROXIDE 3% 118 ML BOTTLE TOP SCH ×2 (08:25→21:23)
[2022-09-11] MEDS: PROTEIN SUPPLEMENT (PROSTAT) 30 ML LIQUID GT SCH (08:44)
[2022-09-11] MEDS: PHENYTOIN 100 MG/4 ML UDC GT SCH ×2 (08:45→20:13)
[2022-09-11] MEDS: PHENOBARBITAL 64.8 MG TABLET GT SCH ×2 (08:46→20:13)
[2022-09-11] MEDS: CHOLECALCIFEROL 400 UNITS TABLET GT SCH ×2 (08:46→20:15)
[2022-09-11] MEDS: VITAMINS A AND D OINT 42 GM TUBE TP SCH ×3 (08:46)
[2022-09-11] MEDS: REMEDY ESSENTIAL ZINC PASTE 113 GM TP SCH ×2 (08:46→20:18)
[2022-09-11] MEDS: COD LIVER OIL/ZINC OXIDE OINT 113 GM TUBE TP SCH ×2 (08:46→20:16)
[2022-09-11] MEDS: CULTURELLE CAPSULE GT SCH ×2 (08:55→20:13)
[2022-09-11 20:00] VITALS: TEMP 98
[2022-09-11] MEDS: MIRALAX 17 GM POWD.PACK GT SCH (20:13)
[2022-09-12] MEDS: ASCORBIC ACID 500 MG TABLET GT SCH (06:23)
[2022-09-12] MEDS: JEVITY 1.2 1000 ML LIQUID GT PRN ×2 (06:23→14:41)
[2022-09-12] MEDS: BACLOFEN 10 MG TABLET GT SCH ×3 (06:23→22:00)
[2022-09-12] MEDS: OMEPRAZOLE 20 MG CAPSULE.DR GT SCH ×2 (06:23→20:13)
[2022-09-12] MEDS: ARGININE/GLUTAMINE/CALCIUM BMB 1 EACH POWD.PACK GT SCH ×2 (06:23→18:25)
[2022-09-12 08:00] VITALS: TEMP 97.9
[2022-09-12] MEDS: IPRATROPIUM BROMIDE 0.5 MG/2.5 ML NEBU NEB SCH ×4 (08:12→19:12)
[2022-09-12] MEDS: HYDROGEN PEROXIDE 3% 118 ML BOTTLE TOP SCH ×2 (08:12→19:12)
[2022-09-12] MEDS: ALBUTEROL SULFATE 2.5 MG/3 ML NEBU NEB SCH ×4 (08:12→19:12)
[2022-09-12] MEDS: PROTEIN SUPPLEMENT (PROSTAT) 30 ML LIQUID GT SCH (08:44)
[2022-09-12] MEDS: PHENYTOIN 100 MG/4 ML UDC GT SCH ×2 (08:46→20:13)
[2022-09-12] MEDS: CULTURELLE CAPSULE GT SCH ×2 (08:46→20:13)
[2022-09-12] MEDS: CHOLECALCIFEROL 400 UNITS TABLET GT SCH ×2 (08:47→20:14)
[2022-09-12] MEDS: PHENOBARBITAL 64.8 MG TABLET GT SCH ×2 (08:47→20:13)
[2022-09-12] MEDS: COD LIVER OIL/ZINC OXIDE OINT 113 GM TUBE TP SCH ×2 (08:47→20:14)
[2022-09-12] MEDS: VITAMINS A AND D OINT 42 GM TUBE TP SCH ×3 (08:48)
[2022-09-12] MEDS: REMEDY ESSENTIAL ZINC PASTE 113 GM TP SCH ×2 (08:48→20:14)
[2022-09-12 19:43] VITALS: TEMP 98
[2022-09-12] MEDS: MIRALAX 17 GM POWD.PACK GT SCH (20:13)
[2022-09-13] MEDS: BACLOFEN 10 MG TABLET GT SCH ×3 (05:44→21:51)
[2022-09-13] MEDS: ARGININE/GLUTAMINE/CALCIUM BMB 1 EACH POWD.PACK GT SCH ×2 (05:44→18:14)
[2022-09-13] MEDS: ASCORBIC ACID 500 MG TABLET GT SCH (05:44)
[2022-09-13] MEDS: OMEPRAZOLE 20 MG CAPSULE.DR GT SCH ×2 (05:45→21:51)
[2022-09-13 07:18] VITALS: TEMP 97.5
[2022-09-13] MEDS: ALBUTEROL SULFATE 2.5 MG/3 ML NEBU NEB SCH ×4 (07:30→19:01)
[2022-09-13] MEDS: IPRATROPIUM BROMIDE 0.5 MG/2.5 ML NEBU NEB SCH ×4 (07:30→19:01)
[2022-09-13] MEDS: HYDROGEN PEROXIDE 3% 118 ML BOTTLE TOP SCH ×2 (07:31→19:01)
[2022-09-13] MEDS: CHOLECALCIFEROL 400 UNITS TABLET GT SCH ×2 (08:57→21:51)
[2022-09-13] MEDS: PHENOBARBITAL 64.8 MG TABLET GT SCH ×2 (08:57→21:49)
[2022-09-13] MEDS: PROTEIN SUPPLEMENT (PROSTAT) 30 ML LIQUID GT SCH (08:57)
[2022-09-13] MEDS: PHENYTOIN 100 MG/4 ML UDC GT SCH ×2 (08:57→21:49)
[2022-09-13] MEDS: CULTURELLE CAPSULE GT SCH ×2 (08:57→21:47)
[2022-09-13] MEDS: COD LIVER OIL/ZINC OXIDE OINT 113 GM TUBE TP SCH ×2 (08:58→21:51)
[2022-09-13] MEDS: REMEDY ESSENTIAL ZINC PASTE 113 GM TP SCH ×2 (09:30→21:51)
[2022-09-13] MEDS: VITAMINS A AND D OINT 42 GM TUBE TP SCH ×3 (09:30)
[2022-09-13 20:00] VITALS: TEMP 98.1
[2022-09-13] MEDS: MIRALAX 17 GM POWD.PACK GT SCH (21:50)
[2022-09-14] MEDS: ARGININE/GLUTAMINE/CALCIUM BMB 1 EACH POWD.PACK GT SCH ×2 (05:15→17:51)
[2022-09-14] MEDS: ASCORBIC ACID 500 MG TABLET GT SCH (05:16)
[2022-09-14] MEDS: OMEPRAZOLE 20 MG CAPSULE.DR GT SCH ×2 (05:16→20:47)
[2022-09-14] MEDS: BACLOFEN 10 MG TABLET GT SCH ×3 (05:16→22:00)
[2022-09-14] MEDS: IPRATROPIUM BROMIDE 0.5 MG/2.5 ML NEBU NEB SCH ×4 (07:28→19:13)
[2022-09-14] MEDS: ALBUTEROL SULFATE 2.5 MG/3 ML NEBU NEB SCH ×4 (07:28→19:13)
[2022-09-14] MEDS: HYDROGEN PEROXIDE 3% 118 ML BOTTLE TOP SCH ×2 (07:29→19:13)
[2022-09-14] MEDS: PROTEIN SUPPLEMENT (PROSTAT) 30 ML LIQUID GT SCH (08:29)
[2022-09-14] MEDS: CULTURELLE CAPSULE GT SCH ×2 (08:31→20:38)
[2022-09-14] MEDS: PHENYTOIN 100 MG/4 ML UDC GT SCH ×2 (08:31→20:47)
[2022-09-14] MEDS: PHENOBARBITAL 64.8 MG TABLET GT SCH ×2 (08:32→20:44)
[2022-09-14] MEDS: CHOLECALCIFEROL 400 UNITS TABLET GT SCH ×2 (08:33→20:48)
[2022-09-14] MEDS: VITAMINS A AND D OINT 42 GM TUBE TP SCH ×3 (08:34)
[2022-09-14] MEDS: COD LIVER OIL/ZINC OXIDE OINT 113 GM TUBE TP SCH ×2 (08:34→20:48)
[2022-09-14] MEDS: REMEDY ESSENTIAL ZINC PASTE 113 GM TP SCH ×2 (08:34→20:48)
[2022-09-14 11:53] VITALS: TEMP 98.5
[2022-09-14] MEDS: JEVITY 1.2 1000 ML LIQUID GT PRN (19:08)
[2022-09-14 20:00] VITALS: TEMP 98.1
[2022-09-14] MEDS: MIRALAX 17 GM POWD.PACK GT SCH (20:47)
[2022-09-15] MEDS: ASCORBIC ACID 500 MG TABLET GT SCH (05:15)
[2022-09-15] MEDS: BACLOFEN 10 MG TABLET GT SCH ×3 (05:15→21:36)
[2022-09-15] MEDS: ARGININE/GLUTAMINE/CALCIUM BMB 1 EACH POWD.PACK GT SCH ×2 (05:15→18:52)
[2022-09-15] MEDS: OMEPRAZOLE 20 MG CAPSULE.DR GT SCH ×2 (06:31→21:35)
[2022-09-15 07:52] VITALS: TEMP 97.8
[2022-09-15] MEDS: PROTEIN SUPPLEMENT (PROSTAT) 30 ML LIQUID GT SCH (08:00)
[2022-09-15] MEDS: IPRATROPIUM BROMIDE 0.5 MG/2.5 ML NEBU NEB SCH ×4 (08:08→19:13)
[2022-09-15] MEDS: ALBUTEROL SULFATE 2.5 MG/3 ML NEBU NEB SCH ×4 (08:08→19:13)
[2022-09-15] MEDS: HYDROGEN PEROXIDE 3% 118 ML BOTTLE TOP SCH ×2 (08:08→19:13)
[2022-09-15] MEDS: VITAMINS A AND D OINT 42 GM TUBE TP SCH ×3 (09:27→09:29)
[2022-09-15] MEDS: PHENOBARBITAL 64.8 MG TABLET GT SCH ×2 (09:27→21:35)
[2022-09-15] MEDS: PHENYTOIN 100 MG/4 ML UDC GT SCH ×2 (09:27→21:35)
[2022-09-15] MEDS: CULTURELLE CAPSULE GT SCH ×2 (09:27→21:35)
[2022-09-15] MEDS: REMEDY ESSENTIAL ZINC PASTE 113 GM TP SCH ×2 (09:27→21:35)
[2022-09-15] MEDS: COD LIVER OIL/ZINC OXIDE OINT 113 GM TUBE TP SCH ×2 (09:27→21:35)
[2022-09-15] MEDS: CHOLECALCIFEROL 400 UNITS TABLET GT SCH ×2 (09:27→21:35)
[2022-09-15] MEDS: JEVITY 1.2 1000 ML LIQUID GT PRN (16:42)
[2022-09-15 20:00] VITALS: TEMP 98.1
[2022-09-15] MEDS: MIRALAX 17 GM POWD.PACK GT SCH (21:35)
[2022-09-16] MEDS: ARGININE/GLUTAMINE/CALCIUM BMB 1 EACH POWD.PACK GT SCH ×2 (05:22→17:39)
[2022-09-16] MEDS: BACLOFEN 10 MG TABLET GT SCH ×3 (05:23→22:00)
[2022-09-16] MEDS: ASCORBIC ACID 500 MG TABLET GT SCH (05:23)
[2022-09-16] MEDS: OMEPRAZOLE 20 MG CAPSULE.DR GT SCH ×2 (06:06→20:16)
[2022-09-16] MEDS: ALBUTEROL SULFATE 2.5 MG/3 ML NEBU NEB SCH ×4 (07:07→19:40)
[2022-09-16] MEDS: IPRATROPIUM BROMIDE 0.5 MG/2.5 ML NEBU NEB SCH ×4 (07:07→19:40)
[2022-09-16 07:18] VITALS: TEMP 98.3
[2022-09-16] MEDS: HYDROGEN PEROXIDE 3% 118 ML BOTTLE TOP SCH ×2 (08:05→20:16)
[2022-09-16] MEDS: CHOLECALCIFEROL 400 UNITS TABLET GT SCH ×2 (08:10→20:16)
[2022-09-16] MEDS: REMEDY ESSENTIAL ZINC PASTE 113 GM TP SCH ×2 (08:10→20:17)
[2022-09-16] MEDS: CULTURELLE CAPSULE GT SCH ×2 (08:10→20:16)
[2022-09-16] MEDS: COD LIVER OIL/ZINC OXIDE OINT 113 GM TUBE TP SCH ×2 (08:10→20:16)
[2022-09-16] MEDS: PHENYTOIN 100 MG/4 ML UDC GT SCH ×2 (08:10→20:16)
[2022-09-16] MEDS: PROTEIN SUPPLEMENT (PROSTAT) 30 ML LIQUID GT SCH (08:10)
[2022-09-16] MEDS: PHENOBARBITAL 64.8 MG TABLET GT SCH ×2 (08:10→20:16)
[2022-09-16] MEDS: VITAMINS A AND D OINT 42 GM TUBE TP SCH ×3 (08:10→08:11)
[2022-09-16 10:00] VITALS: O2SAT 98
[2022-09-16] MEDS: JEVITY 1.2 1000 ML LIQUID GT PRN (17:39)
[2022-09-16 20:00] VITALS: TEMP 98
[2022-09-16] MEDS: MIRALAX 17 GM POWD.PACK GT SCH (20:16)
[2022-09-17] MEDS: BACLOFEN 10 MG TABLET GT SCH ×3 (05:10→22:00)
[2022-09-17] MEDS: ARGININE/GLUTAMINE/CALCIUM BMB 1 EACH POWD.PACK GT SCH ×2 (05:10→17:12)
[2022-09-17] MEDS: ASCORBIC ACID 500 MG TABLET GT SCH (05:10)
[2022-09-17] MEDS: OMEPRAZOLE 20 MG CAPSULE.DR GT SCH ×2 (05:39→20:31)
[2022-09-17] MEDS: ALBUTEROL SULFATE 2.5 MG/3 ML NEBU NEB SCH ×4 (07:11→19:01)
[2022-09-17] MEDS: IPRATROPIUM BROMIDE 0.5 MG/2.5 ML NEBU NEB SCH ×4 (07:11→19:01)
[2022-09-17 07:23] VITALS: TEMP 97.8
[2022-09-17] MEDS: HYDROGEN PEROXIDE 3% 118 ML BOTTLE TOP SCH ×2 (08:06→19:01)
[2022-09-17] MEDS: PHENYTOIN 100 MG/4 ML UDC GT SCH ×2 (08:23→20:31)
[2022-09-17] MEDS: PROTEIN SUPPLEMENT (PROSTAT) 30 ML LIQUID GT SCH (08:23)
[2022-09-17] MEDS: COD LIVER OIL/ZINC OXIDE OINT 113 GM TUBE TP SCH ×2 (08:23→20:32)
[2022-09-17] MEDS: PHENOBARBITAL 64.8 MG TABLET GT SCH ×2 (08:23→20:31)
[2022-09-17] MEDS: CHOLECALCIFEROL 400 UNITS TABLET GT SCH ×2 (08:23→20:31)
[2022-09-17] MEDS: CULTURELLE CAPSULE GT SCH ×2 (08:23→20:31)
[2022-09-17] MEDS: VITAMINS A AND D OINT 42 GM TUBE TP SCH ×3 (08:23)
[2022-09-17] MEDS: REMEDY ESSENTIAL ZINC PASTE 113 GM TP SCH ×2 (08:23→20:32)
[2022-09-17 20:00] VITALS: TEMP 98.1
[2022-09-17] MEDS: MIRALAX 17 GM POWD.PACK GT SCH (20:31)
[2022-09-18] MEDS: BACLOFEN 10 MG TABLET GT SCH ×3 (05:26→21:35)
[2022-09-18] MEDS: ASCORBIC ACID 500 MG TABLET GT SCH (05:26)
[2022-09-18] MEDS: ARGININE/GLUTAMINE/CALCIUM BMB 1 EACH POWD.PACK GT SCH ×2 (05:26→17:04)
[2022-09-18] MEDS: OMEPRAZOLE 20 MG CAPSULE.DR GT SCH ×2 (05:43→20:07)
[2022-09-18] MEDS: ALBUTEROL SULFATE 2.5 MG/3 ML NEBU NEB SCH ×5 (07:10→19:10)
[2022-09-18] MEDS: IPRATROPIUM BROMIDE 0.5 MG/2.5 ML NEBU NEB SCH ×5 (07:10→19:10)
[2022-09-18] MEDS: HYDROGEN PEROXIDE 3% 118 ML BOTTLE TOP SCH ×3 (07:11→21:26)
[2022-09-18 07:30] VITALS: TEMP 98.6
[2022-09-18] MEDS: PROTEIN SUPPLEMENT (PROSTAT) 30 ML LIQUID GT SCH (08:47)
[2022-09-18] MEDS: CULTURELLE CAPSULE GT SCH ×2 (08:48→20:06)
[2022-09-18] MEDS: PHENYTOIN 100 MG/4 ML UDC GT SCH ×2 (08:49→20:06)
[2022-09-18] MEDS: PHENOBARBITAL 64.8 MG TABLET GT SCH ×2 (08:49→20:07)
[2022-09-18] MEDS: CHOLECALCIFEROL 400 UNITS TABLET GT SCH ×2 (08:51→20:07)
[2022-09-18] MEDS: REMEDY ESSENTIAL ZINC PASTE 113 GM TP SCH ×2 (08:51→20:07)
[2022-09-18] MEDS: COD LIVER OIL/ZINC OXIDE OINT 113 GM TUBE TP SCH ×2 (08:51→20:07)
[2022-09-18] MEDS: VITAMINS A AND D OINT 42 GM TUBE TP SCH ×3 (08:51)
[2022-09-18 20:00] VITALS: TEMP 98.1
[2022-09-18] MEDS: MIRALAX 17 GM POWD.PACK GT SCH (20:07)
[2022-09-18] MEDS: JEVITY 1.2 1000 ML LIQUID GT PRN (23:52)
[2022-09-19] MEDS: ASCORBIC ACID 500 MG TABLET GT SCH (05:29)
[2022-09-19] MEDS: BACLOFEN 10 MG TABLET GT SCH ×3 (05:29→22:00)
[2022-09-19] MEDS: ARGININE/GLUTAMINE/CALCIUM BMB 1 EACH POWD.PACK GT SCH ×2 (05:29→17:34)
[2022-09-19] MEDS: OMEPRAZOLE 20 MG CAPSULE.DR GT SCH ×2 (05:31→20:58)
[2022-09-19] MEDS: IPRATROPIUM BROMIDE 0.5 MG/2.5 ML NEBU NEB SCH ×4 (07:47→19:15)
[2022-09-19] MEDS: HYDROGEN PEROXIDE 3% 118 ML BOTTLE TOP SCH ×2 (07:47→21:32)
[2022-09-19] MEDS: ALBUTEROL SULFATE 2.5 MG/3 ML NEBU NEB SCH ×4 (07:47→19:15)
[2022-09-19 07:50] VITALS: TEMP 97.4
[2022-09-19] MEDS: PROTEIN SUPPLEMENT (PROSTAT) 30 ML LIQUID GT SCH (08:49)
[2022-09-19] MEDS: CULTURELLE CAPSULE GT SCH ×2 (08:49→20:58)
[2022-09-19] MEDS: PHENOBARBITAL 64.8 MG TABLET GT SCH ×2 (08:51→20:58)
[2022-09-19] MEDS: PHENYTOIN 100 MG/4 ML UDC GT SCH ×2 (08:51→20:58)
[2022-09-19] MEDS: CHOLECALCIFEROL 400 UNITS TABLET GT SCH ×2 (08:51→20:58)
[2022-09-19] MEDS: REMEDY ESSENTIAL ZINC PASTE 113 GM TP SCH ×2 (08:54→21:00)
[2022-09-19] MEDS: VITAMINS A AND D OINT 42 GM TUBE TP SCH ×3 (08:54)
[2022-09-19] MEDS: COD LIVER OIL/ZINC OXIDE OINT 113 GM TUBE TP SCH ×2 (08:54→20:58)
[2022-09-19 19:54] VITALS: TEMP 98
[2022-09-19] MEDS: MIRALAX 17 GM POWD.PACK GT SCH (20:58)
[2022-09-20] MEDS: ASCORBIC ACID 500 MG TABLET GT SCH (06:00)
[2022-09-20] MEDS: ALBUTEROL SULFATE 2.5 MG/3 ML NEBU NEB SCH ×4 (07:37→19:38)
[2022-09-20] MEDS: IPRATROPIUM BROMIDE 0.5 MG/2.5 ML NEBU NEB SCH ×4 (07:37→19:38)
[2022-09-20] MEDS: HYDROGEN PEROXIDE 3% 118 ML BOTTLE TOP SCH ×2 (07:37→19:38)
[2022-09-20 07:45] VITALS: TEMP 98
[2022-09-20] MEDS: PROTEIN SUPPLEMENT (PROSTAT) 30 ML LIQUID GT SCH (08:58)
[2022-09-20] MEDS: CULTURELLE CAPSULE GT SCH ×2 (08:58→21:35)
[2022-09-20] MEDS: PHENYTOIN 100 MG/4 ML UDC GT SCH ×2 (08:58→21:35)
[2022-09-20] MEDS: PHENOBARBITAL 64.8 MG TABLET GT SCH ×2 (08:58→21:36)
[2022-09-20] MEDS: REMEDY ESSENTIAL ZINC PASTE 113 GM TP SCH ×2 (08:59→21:38)
[2022-09-20] MEDS: COD LIVER OIL/ZINC OXIDE OINT 113 GM TUBE TP SCH ×2 (08:59→21:38)
[2022-09-20] MEDS: CHOLECALCIFEROL 400 UNITS TABLET GT SCH ×2 (08:59→21:38)
[2022-09-20] MEDS: VITAMINS A AND D OINT 42 GM TUBE TP SCH ×3 (09:00)
[2022-09-20] MEDS: BACLOFEN 10 MG TABLET GT SCH ×2 (13:46→21:38)
[2022-09-20] MEDS: JEVITY 1.2 1000 ML LIQUID GT PRN (13:46)
[2022-09-20] MEDS: ARGININE/GLUTAMINE/CALCIUM BMB 1 EACH POWD.PACK GT SCH (18:00)
[2022-09-20 20:00] VITALS: TEMP 98.1
[2022-09-20] MEDS: OMEPRAZOLE 20 MG CAPSULE.DR GT SCH (21:00)
[2022-09-20] MEDS: MIRALAX 17 GM POWD.PACK GT SCH (21:37)
[2022-09-21] MEDS: ARGININE/GLUTAMINE/CALCIUM BMB 1 EACH POWD.PACK GT SCH ×2 (05:08→17:17)
[2022-09-21] MEDS: BACLOFEN 10 MG TABLET GT SCH ×3 (05:08→22:27)
[2022-09-21] MEDS: OMEPRAZOLE 20 MG CAPSULE.DR GT SCH ×2 (05:09→21:00)
[2022-09-21] MEDS: ASCORBIC ACID 500 MG TABLET GT SCH (06:00)
[2022-09-21] MEDS: ALBUTEROL SULFATE 2.5 MG/3 ML NEBU NEB SCH ×4 (07:17→19:16)
[2022-09-21] MEDS: IPRATROPIUM BROMIDE 0.5 MG/2.5 ML NEBU NEB SCH ×4 (07:17→19:16)
[2022-09-21 07:38] VITALS: TEMP 97.8
[2022-09-21] MEDS: HYDROGEN PEROXIDE 3% 118 ML BOTTLE TOP SCH ×2 (08:12→19:16)
[2022-09-21] MEDS: CHOLECALCIFEROL 400 UNITS TABLET GT SCH ×2 (08:50→21:00)
[2022-09-21] MEDS: PHENOBARBITAL 64.8 MG TABLET GT SCH ×2 (08:50→21:00)
[2022-09-21] MEDS: COD LIVER OIL/ZINC OXIDE OINT 113 GM TUBE TP SCH ×2 (08:50→21:00)
[2022-09-21] MEDS: PHENYTOIN 100 MG/4 ML UDC GT SCH ×2 (08:50→21:00)
[2022-09-21] MEDS: CULTURELLE CAPSULE GT SCH ×2 (08:50→22:02)
[2022-09-21] MEDS: PROTEIN SUPPLEMENT (PROSTAT) 30 ML LIQUID GT SCH (08:50)
[2022-09-21] MEDS: VITAMINS A AND D OINT 42 GM TUBE TP SCH ×3 (08:51)
[2022-09-21] MEDS: REMEDY ESSENTIAL ZINC PASTE 113 GM TP SCH ×2 (08:51→21:00)
[2022-09-21] MEDS: JEVITY 1.2 1000 ML LIQUID GT PRN (12:27)
[2022-09-21 20:00] VITALS: TEMP 98
[2022-09-21] MEDS: MIRALAX 17 GM POWD.PACK GT SCH (21:00)
[2022-09-22] MEDS: ASCORBIC ACID 500 MG TABLET GT SCH (05:07)
[2022-09-22] MEDS: ARGININE/GLUTAMINE/CALCIUM BMB 1 EACH POWD.PACK GT SCH ×2 (05:07→17:07)
[2022-09-22] MEDS: BACLOFEN 10 MG TABLET GT SCH ×3 (05:07→21:29)
[2022-09-22] MEDS: OMEPRAZOLE 20 MG CAPSULE.DR GT SCH ×2 (05:07→21:28)
[2022-09-22] MEDS: IPRATROPIUM BROMIDE 0.5 MG/2.5 ML NEBU NEB SCH ×4 (07:10→19:41)
[2022-09-22] MEDS: ALBUTEROL SULFATE 2.5 MG/3 ML NEBU NEB SCH ×4 (07:10→19:41)
[2022-09-22 07:23] VITALS: TEMP 98
[2022-09-22] MEDS: PROTEIN SUPPLEMENT (PROSTAT) 30 ML LIQUID GT SCH (08:13)
[2022-09-22] MEDS: CULTURELLE CAPSULE GT SCH ×2 (08:15→21:28)
[2022-09-22] MEDS: PHENYTOIN 100 MG/4 ML UDC GT SCH ×2 (08:15→21:28)
[2022-09-22] MEDS: CHOLECALCIFEROL 400 UNITS TABLET GT SCH ×2 (08:16→21:28)
[2022-09-22] MEDS: PHENOBARBITAL 64.8 MG TABLET GT SCH ×2 (08:16→21:28)
[2022-09-22] MEDS: REMEDY ESSENTIAL ZINC PASTE 113 GM TP SCH ×2 (08:16→21:29)
[2022-09-22] MEDS: COD LIVER OIL/ZINC OXIDE OINT 113 GM TUBE TP SCH ×3 (08:16→21:28)
[2022-09-22] MEDS: VITAMINS A AND D OINT 42 GM TUBE TP SCH ×3 (08:17)
[2022-09-22] MEDS: HYDROGEN PEROXIDE 3% 118 ML BOTTLE TOP SCH ×2 (08:31→19:41)
[2022-09-22] MEDS: JEVITY 1.2 1000 ML LIQUID GT PRN (10:22)
[2022-09-22 19:40] VITALS: TEMP 98.3
[2022-09-22] MEDS: NYSTATIN CREAM 30 GM TUBE TP SCH (21:28)
[2022-09-22] MEDS: MIRALAX 17 GM POWD.PACK GT SCH (21:28)
[2022-09-23] MEDS: BACLOFEN 10 MG TABLET GT SCH ×3 (06:26→21:17)
[2022-09-23] MEDS: ASCORBIC ACID 500 MG TABLET GT SCH (06:26)
[2022-09-23] MEDS: ARGININE/GLUTAMINE/CALCIUM BMB 1 EACH POWD.PACK GT SCH ×2 (06:26→18:15)
[2022-09-23] MEDS: OMEPRAZOLE 20 MG CAPSULE.DR GT SCH ×2 (06:26→21:16)
[2022-09-23] MEDS: JEVITY 1.2 1000 ML LIQUID GT PRN (06:27)
[2022-09-23] MEDS: IPRATROPIUM BROMIDE 0.5 MG/2.5 ML NEBU NEB SCH ×4 (07:18→19:12)
[2022-09-23] MEDS: HYDROGEN PEROXIDE 3% 118 ML BOTTLE TOP SCH ×2 (07:18→20:48)
[2022-09-23] MEDS: ALBUTEROL SULFATE 2.5 MG/3 ML NEBU NEB SCH ×4 (07:18→19:12)
[2022-09-23 07:19] VITALS: TEMP 97.8
[2022-09-23] MEDS: PHENYTOIN 100 MG/4 ML UDC GT SCH ×2 (08:18→21:19)
[2022-09-23] MEDS: CULTURELLE CAPSULE GT SCH ×2 (08:18→21:19)
[2022-09-23] MEDS: PROTEIN SUPPLEMENT (PROSTAT) 30 ML LIQUID GT SCH (08:18)
[2022-09-23] MEDS: PHENOBARBITAL 64.8 MG TABLET GT SCH ×2 (08:19→21:21)
[2022-09-23] MEDS: CHOLECALCIFEROL 400 UNITS TABLET GT SCH ×2 (08:20→21:16)
[2022-09-23] MEDS: NYSTATIN CREAM 30 GM TUBE TP SCH ×2 (08:21→21:16)
[2022-09-23] MEDS: REMEDY ESSENTIAL ZINC PASTE 113 GM TP SCH ×2 (08:21→21:16)
[2022-09-23] MEDS: COD LIVER OIL/ZINC OXIDE OINT 113 GM TUBE TP SCH ×4 (08:21→21:16)
[2022-09-23] MEDS: VITAMINS A AND D OINT 42 GM TUBE TP SCH ×3 (08:21)
[2022-09-23 20:27] VITALS: TEMP 98
[2022-09-23] MEDS: MIRALAX 17 GM POWD.PACK GT SCH (21:16)
[2022-09-24] MEDS: ARGININE/GLUTAMINE/CALCIUM BMB 1 EACH POWD.PACK GT SCH ×2 (05:03→17:22)
[2022-09-24] MEDS: BACLOFEN 10 MG TABLET GT SCH ×3 (05:03→22:06)
[2022-09-24] MEDS: ASCORBIC ACID 500 MG TABLET GT SCH (05:03)
[2022-09-24] MEDS: OMEPRAZOLE 20 MG CAPSULE.DR GT SCH ×2 (06:48→20:09)
[2022-09-24 07:20] VITALS: TEMP 97.4
[2022-09-24] MEDS: IPRATROPIUM BROMIDE 0.5 MG/2.5 ML NEBU NEB SCH ×4 (07:25→19:02)
[2022-09-24] MEDS: ALBUTEROL SULFATE 2.5 MG/3 ML NEBU NEB SCH ×4 (07:25→19:02)
[2022-09-24] MEDS: HYDROGEN PEROXIDE 3% 118 ML BOTTLE TOP SCH ×2 (07:26→19:02)
[2022-09-24] MEDS: CULTURELLE CAPSULE GT SCH ×2 (08:21→20:09)
[2022-09-24] MEDS: PHENOBARBITAL 64.8 MG TABLET GT SCH ×2 (08:21→20:09)
[2022-09-24] MEDS: PHENYTOIN 100 MG/4 ML UDC GT SCH ×2 (08:21→20:09)
[2022-09-24] MEDS: CHOLECALCIFEROL 400 UNITS TABLET GT SCH ×2 (08:21→20:09)
[2022-09-24] MEDS: PROTEIN SUPPLEMENT (PROSTAT) 30 ML LIQUID GT SCH (08:21)
[2022-09-24] MEDS: COD LIVER OIL/ZINC OXIDE OINT 113 GM TUBE TP SCH ×4 (08:22→20:10)
[2022-09-24] MEDS: NYSTATIN CREAM 30 GM TUBE TP SCH ×2 (08:22→20:10)
[2022-09-24] MEDS: VITAMINS A AND D OINT 42 GM TUBE TP SCH ×3 (08:22)
[2022-09-24] MEDS: REMEDY ESSENTIAL ZINC PASTE 113 GM TP SCH ×2 (08:22→20:10)
[2022-09-24] MEDS: MIRALAX 17 GM POWD.PACK GT SCH (20:09)
[2022-09-24 20:12] VITALS: TEMP 98
[2022-09-25] MEDS: BACLOFEN 10 MG TABLET GT SCH ×3 (05:23→22:39)
[2022-09-25] MEDS: ASCORBIC ACID 500 MG TABLET GT SCH (05:23)
[2022-09-25] MEDS: ARGININE/GLUTAMINE/CALCIUM BMB 1 EACH POWD.PACK GT SCH ×2 (05:23→17:06)
[2022-09-25] MEDS: OMEPRAZOLE 20 MG CAPSULE.DR GT SCH ×2 (06:05→20:43)
[2022-09-25] MEDS: IPRATROPIUM BROMIDE 0.5 MG/2.5 ML NEBU NEB SCH ×4 (07:10→18:53)
[2022-09-25] MEDS: HYDROGEN PEROXIDE 3% 118 ML BOTTLE TOP SCH ×2 (07:10→18:53)
[2022-09-25] MEDS: ALBUTEROL SULFATE 2.5 MG/3 ML NEBU NEB SCH ×4 (07:10→18:53)
[2022-09-25 08:00] VITALS: TEMP 98.5
[2022-09-25] MEDS: PROTEIN SUPPLEMENT (PROSTAT) 30 ML LIQUID GT SCH (08:00)
[2022-09-25] MEDS: REMEDY ESSENTIAL ZINC PASTE 113 GM TP SCH ×2 (09:23→20:43)
[2022-09-25] MEDS: CULTURELLE CAPSULE GT SCH ×2 (09:23→20:43)
[2022-09-25] MEDS: PHENYTOIN 100 MG/4 ML UDC GT SCH ×2 (09:23→20:43)
[2022-09-25] MEDS: PHENOBARBITAL 64.8 MG TABLET GT SCH ×2 (09:23→20:43)
[2022-09-25] MEDS: CHOLECALCIFEROL 400 UNITS TABLET GT SCH ×2 (09:23→20:43)
[2022-09-25] MEDS: VITAMINS A AND D OINT 42 GM TUBE TP SCH ×3 (09:23)
[2022-09-25] MEDS: COD LIVER OIL/ZINC OXIDE OINT 113 GM TUBE TP SCH ×4 (09:23→20:43)
[2022-09-25] MEDS: NYSTATIN CREAM 30 GM TUBE TP SCH ×2 (09:23→20:43)
[2022-09-25 20:31] VITALS: TEMP 97.7
[2022-09-25] MEDS: MIRALAX 17 GM POWD.PACK GT SCH (20:43)
[2022-09-26] MEDS: ARGININE/GLUTAMINE/CALCIUM BMB 1 EACH POWD.PACK GT SCH ×2 (05:54→17:18)
[2022-09-26] MEDS: BACLOFEN 10 MG TABLET GT SCH ×3 (05:54→22:00)
[2022-09-26] MEDS: ASCORBIC ACID 500 MG TABLET GT SCH (05:55)
[2022-09-26] MEDS: OMEPRAZOLE 20 MG CAPSULE.DR GT SCH ×2 (05:55→20:00)
[2022-09-26] MEDS: IPRATROPIUM BROMIDE 0.5 MG/2.5 ML NEBU NEB SCH ×4 (07:00→19:03)
[2022-09-26] MEDS: ALBUTEROL SULFATE 2.5 MG/3 ML NEBU NEB SCH ×4 (07:00→19:03)
[2022-09-26 08:00] VITALS: TEMP 97.4
[2022-09-26] MEDS: PROTEIN SUPPLEMENT (PROSTAT) 30 ML LIQUID GT SCH (08:23)
[2022-09-26] MEDS: PHENYTOIN 100 MG/4 ML UDC GT SCH ×2 (08:24→20:00)
[2022-09-26] MEDS: CULTURELLE CAPSULE GT SCH ×2 (08:27→20:00)
[2022-09-26] MEDS: NYSTATIN CREAM 30 GM TUBE TP SCH ×2 (08:27→20:01)
[2022-09-26] MEDS: CHOLECALCIFEROL 400 UNITS TABLET GT SCH ×2 (08:27→20:00)
[2022-09-26] MEDS: PHENOBARBITAL 64.8 MG TABLET GT SCH ×2 (08:27→20:00)
[2022-09-26] MEDS: COD LIVER OIL/ZINC OXIDE OINT 113 GM TUBE TP SCH ×4 (08:27→20:01)
[2022-09-26] MEDS: REMEDY ESSENTIAL ZINC PASTE 113 GM TP SCH ×2 (08:28→20:02)
[2022-09-26] MEDS: VITAMINS A AND D OINT 42 GM TUBE TP SCH ×3 (08:28)
[2022-09-26] MEDS: HYDROGEN PEROXIDE 3% 118 ML BOTTLE TOP SCH ×2 (09:00→19:03)
[2022-09-26] MEDS: JEVITY 1.2 1000 ML LIQUID GT PRN (09:26)
[2022-09-26 20:00] VITALS: TEMP 98.4
[2022-09-26] MEDS: MIRALAX 17 GM POWD.PACK GT SCH (20:00)
[2022-09-27] MEDS: ARGININE/GLUTAMINE/CALCIUM BMB 1 EACH POWD.PACK GT SCH ×2 (05:30→18:39)
[2022-09-27] MEDS: OMEPRAZOLE 20 MG CAPSULE.DR GT SCH ×2 (05:30→21:12)
[2022-09-27] MEDS: ASCORBIC ACID 500 MG TABLET GT SCH (05:30)
[2022-09-27] MEDS: BACLOFEN 10 MG TABLET GT SCH ×3 (05:30→21:13)
[2022-09-27] MEDS: IPRATROPIUM BROMIDE 0.5 MG/2.5 ML NEBU NEB SCH ×4 (07:18→19:07)
[2022-09-27] MEDS: HYDROGEN PEROXIDE 3% 118 ML BOTTLE TOP SCH ×2 (07:18→19:07)
[2022-09-27] MEDS: ALBUTEROL SULFATE 2.5 MG/3 ML NEBU NEB SCH ×4 (07:18→19:07)
[2022-09-27 08:00] VITALS: TEMP 97.4
[2022-09-27] MEDS: PHENYTOIN 100 MG/4 ML UDC GT SCH ×2 (08:55→21:10)
[2022-09-27] MEDS: PROTEIN SUPPLEMENT (PROSTAT) 30 ML LIQUID GT SCH (08:55)
[2022-09-27] MEDS: CULTURELLE CAPSULE GT SCH ×2 (08:55→21:09)
[2022-09-27] MEDS: CHOLECALCIFEROL 400 UNITS TABLET GT SCH ×2 (08:56→21:12)
[2022-09-27] MEDS: PHENOBARBITAL 64.8 MG TABLET GT SCH ×2 (08:56→21:10)
[2022-09-27] MEDS: COD LIVER OIL/ZINC OXIDE OINT 113 GM TUBE TP SCH ×4 (08:57→21:13)
[2022-09-27] MEDS: NYSTATIN CREAM 30 GM TUBE TP SCH ×2 (08:57→21:13)
[2022-09-27] MEDS: REMEDY ESSENTIAL ZINC PASTE 113 GM TP SCH ×2 (08:57→21:13)
[2022-09-27] MEDS: VITAMINS A AND D OINT 42 GM TUBE TP SCH ×3 (08:57)
[2022-09-27 20:00] VITALS: TEMP 98.1
[2022-09-27] MEDS: MIRALAX 17 GM POWD.PACK GT SCH (21:12)
[2022-09-28] MEDS: JEVITY 1.2 1000 ML LIQUID GT PRN (05:00)
[2022-09-28] MEDS: ARGININE/GLUTAMINE/CALCIUM BMB 1 EACH POWD.PACK GT SCH ×2 (05:37→17:25)
[2022-09-28] MEDS: BACLOFEN 10 MG TABLET GT SCH ×3 (05:37→22:14)
[2022-09-28] MEDS: OMEPRAZOLE 20 MG CAPSULE.DR GT SCH ×2 (05:38→21:00)
[2022-09-28] MEDS: ASCORBIC ACID 500 MG TABLET GT SCH (05:38)
[2022-09-28] MEDS: ALBUTEROL SULFATE 2.5 MG/3 ML NEBU NEB SCH ×4 (07:29→19:03)
[2022-09-28] MEDS: HYDROGEN PEROXIDE 3% 118 ML BOTTLE TOP SCH ×2 (07:29→19:03)
[2022-09-28] MEDS: IPRATROPIUM BROMIDE 0.5 MG/2.5 ML NEBU NEB SCH ×4 (07:29→19:03)
[2022-09-28 07:30] VITALS: TEMP 97.9
[2022-09-28] MEDS: PROTEIN SUPPLEMENT (PROSTAT) 30 ML LIQUID GT SCH (09:00)
[2022-09-28] MEDS: PHENOBARBITAL 64.8 MG TABLET GT SCH ×2 (09:03→21:00)
[2022-09-28] MEDS: CULTURELLE CAPSULE GT SCH ×2 (09:03→22:09)
[2022-09-28] MEDS: PHENYTOIN 100 MG/4 ML UDC GT SCH ×2 (09:03→21:00)
[2022-09-28] MEDS: CHOLECALCIFEROL 400 UNITS TABLET GT SCH ×2 (09:05→21:00)
[2022-09-28] MEDS: COD LIVER OIL/ZINC OXIDE OINT 113 GM TUBE TP SCH ×4 (09:05→21:00)
[2022-09-28] MEDS: NYSTATIN CREAM 30 GM TUBE TP SCH ×2 (09:06→21:00)
[2022-09-28] MEDS: VITAMINS A AND D OINT 42 GM TUBE TP SCH ×3 (09:06)
[2022-09-28] MEDS: REMEDY ESSENTIAL ZINC PASTE 113 GM TP SCH ×2 (09:06→21:00)
[2022-09-28 20:00] VITALS: TEMP 98.5
[2022-09-28] MEDS: MIRALAX 17 GM POWD.PACK GT SCH (21:00)
[2022-09-29] MEDS: OMEPRAZOLE 20 MG CAPSULE.DR GT SCH ×2 (05:54→20:55)
[2022-09-29] MEDS: ARGININE/GLUTAMINE/CALCIUM BMB 1 EACH POWD.PACK GT SCH ×2 (05:54→17:05)
[2022-09-29] MEDS: ASCORBIC ACID 500 MG TABLET GT SCH (05:54)
[2022-09-29] MEDS: BACLOFEN 10 MG TABLET GT SCH ×3 (05:54→21:24)
[2022-09-29] MEDS: JEVITY 1.2 1000 ML LIQUID GT PRN (06:07)
[2022-09-29 07:15] VITALS: TEMP 97.7
[2022-09-29] MEDS: IPRATROPIUM BROMIDE 0.5 MG/2.5 ML NEBU NEB SCH ×4 (08:08→19:01)
[2022-09-29] MEDS: ALBUTEROL SULFATE 2.5 MG/3 ML NEBU NEB SCH ×4 (08:08→19:01)
[2022-09-29] MEDS: HYDROGEN PEROXIDE 3% 118 ML BOTTLE TOP SCH ×2 (08:08→19:01)
[2022-09-29] MEDS: PROTEIN SUPPLEMENT (PROSTAT) 30 ML LIQUID GT SCH (08:58)
[2022-09-29] MEDS: CULTURELLE CAPSULE GT SCH ×2 (09:00→20:54)
[2022-09-29] MEDS: PHENYTOIN 100 MG/4 ML UDC GT SCH ×2 (09:00→20:54)
[2022-09-29] MEDS: PHENOBARBITAL 64.8 MG TABLET GT SCH ×2 (09:03→20:55)
[2022-09-29] MEDS: CHOLECALCIFEROL 400 UNITS TABLET GT SCH ×2 (09:03→20:55)
[2022-09-29] MEDS: COD LIVER OIL/ZINC OXIDE OINT 113 GM TUBE TP SCH ×4 (09:03→20:56)
[2022-09-29] MEDS: NYSTATIN CREAM 30 GM TUBE TP SCH ×2 (09:03→20:56)
[2022-09-29] MEDS: REMEDY ESSENTIAL ZINC PASTE 113 GM TP SCH ×2 (09:04→20:56)
[2022-09-29] MEDS: VITAMINS A AND D OINT 42 GM TUBE TP SCH ×3 (09:04)
[2022-09-29 20:00] VITALS: TEMP 98
[2022-09-29] MEDS: MIRALAX 17 GM POWD.PACK GT SCH (20:55)
[2022-09-30] MEDS: ARGININE/GLUTAMINE/CALCIUM BMB 1 EACH POWD.PACK GT SCH ×2 (05:00→17:16)
[2022-09-30] MEDS: ASCORBIC ACID 500 MG TABLET GT SCH (05:00)
[2022-09-30] MEDS: BACLOFEN 10 MG TABLET GT SCH ×3 (05:00→22:00)
[2022-09-30] MEDS: OMEPRAZOLE 20 MG CAPSULE.DR GT SCH ×2 (05:35→20:07)
[2022-09-30] MEDS: IPRATROPIUM BROMIDE 0.5 MG/2.5 ML NEBU NEB SCH ×4 (07:12→19:01)
[2022-09-30] MEDS: ALBUTEROL SULFATE 2.5 MG/3 ML NEBU NEB SCH ×4 (07:12→19:01)
[2022-09-30] MEDS: HYDROGEN PEROXIDE 3% 118 ML BOTTLE TOP SCH ×2 (07:13→19:10)
[2022-09-30 07:16] VITALS: TEMP 98.5
[2022-09-30] MEDS: CULTURELLE CAPSULE GT SCH ×2 (08:54→20:07)
[2022-09-30] MEDS: PHENYTOIN 100 MG/4 ML UDC GT SCH ×2 (08:54→20:07)
[2022-09-30] MEDS: PROTEIN SUPPLEMENT (PROSTAT) 30 ML LIQUID GT SCH (08:54)
[2022-09-30] MEDS: CHOLECALCIFEROL 400 UNITS TABLET GT SCH ×2 (08:54→20:08)
[2022-09-30] MEDS: COD LIVER OIL/ZINC OXIDE OINT 113 GM TUBE TP SCH ×4 (08:54→20:08)
[2022-09-30] MEDS: PHENOBARBITAL 64.8 MG TABLET GT SCH ×2 (08:54→20:07)
[2022-09-30] MEDS: REMEDY ESSENTIAL ZINC PASTE 113 GM TP SCH ×2 (08:55→20:08)
[2022-09-30] MEDS: VITAMINS A AND D OINT 42 GM TUBE TP SCH ×3 (08:55)
[2022-09-30] MEDS: NYSTATIN CREAM 30 GM TUBE TP SCH ×2 (08:55→20:08)
[2022-09-30 20:00] VITALS: TEMP 97.6
[2022-09-30] MEDS: MIRALAX 17 GM POWD.PACK GT SCH (20:07)
[2022-10-01] MEDS: BACLOFEN 10 MG TABLET GT SCH ×3 (05:41→22:00)
[2022-10-01] MEDS: ARGININE/GLUTAMINE/CALCIUM BMB 1 EACH POWD.PACK GT SCH ×2 (05:41→17:05)
[2022-10-01] MEDS: ASCORBIC ACID 500 MG TABLET GT SCH (05:41)
[2022-10-01] MEDS: OMEPRAZOLE 20 MG CAPSULE.DR GT SCH ×2 (05:44→20:55)
[2022-10-01 07:21] VITALS: TEMP 97.9
[2022-10-01] MEDS: ALBUTEROL SULFATE 2.5 MG/3 ML NEBU NEB SCH ×4 (07:21→19:43)
[2022-10-01] MEDS: HYDROGEN PEROXIDE 3% 118 ML BOTTLE TOP SCH ×2 (07:21→20:41)
[2022-10-01] MEDS: IPRATROPIUM BROMIDE 0.5 MG/2.5 ML NEBU NEB SCH ×4 (07:21→19:43)
[2022-10-01] MEDS: CULTURELLE CAPSULE GT SCH ×2 (08:45→20:54)
[2022-10-01] MEDS: PHENYTOIN 100 MG/4 ML UDC GT SCH ×2 (08:45→20:54)
[2022-10-01] MEDS: PROTEIN SUPPLEMENT (PROSTAT) 30 ML LIQUID GT SCH (08:45)
[2022-10-01] MEDS: PHENOBARBITAL 64.8 MG TABLET GT SCH ×2 (08:46→20:55)
[2022-10-01] MEDS: CHOLECALCIFEROL 400 UNITS TABLET GT SCH ×2 (08:46→20:55)
[2022-10-01] MEDS: VITAMINS A AND D OINT 42 GM TUBE TP SCH ×3 (08:47→08:48)
[2022-10-01] MEDS: NYSTATIN CREAM 30 GM TUBE TP SCH ×2 (08:47→20:55)
[2022-10-01] MEDS: COD LIVER OIL/ZINC OXIDE OINT 113 GM TUBE TP SCH ×4 (08:47→20:55)
[2022-10-01] MEDS: REMEDY ESSENTIAL ZINC PASTE 113 GM TP SCH ×2 (08:47→20:55)
[2022-10-01 20:00] VITALS: TEMP 98.3
[2022-10-01] MEDS: MIRALAX 17 GM POWD.PACK GT SCH (20:55)
[2022-10-02] MEDS: ARGININE/GLUTAMINE/CALCIUM BMB 1 EACH POWD.PACK GT SCH ×2 (05:49→17:21)
[2022-10-02] MEDS: BACLOFEN 10 MG TABLET GT SCH ×3 (05:49→22:00)
[2022-10-02] MEDS: OMEPRAZOLE 20 MG CAPSULE.DR GT SCH ×2 (05:49→20:17)
[2022-10-02] MEDS: ASCORBIC ACID 500 MG TABLET GT SCH (05:49)
[2022-10-02 07:22] VITALS: TEMP 97.7
[2022-10-02] MEDS: HYDROGEN PEROXIDE 3% 118 ML BOTTLE TOP SCH ×2 (07:25→19:11)
[2022-10-02] MEDS: ALBUTEROL SULFATE 2.5 MG/3 ML NEBU NEB SCH ×4 (07:25→19:11)
[2022-10-02] MEDS: IPRATROPIUM BROMIDE 0.5 MG/2.5 ML NEBU NEB SCH ×4 (07:25→19:11)
[2022-10-02] MEDS: PROTEIN SUPPLEMENT (PROSTAT) 30 ML LIQUID GT SCH (08:48)
[2022-10-02] MEDS: CULTURELLE CAPSULE GT SCH ×2 (08:48→20:16)
[2022-10-02] MEDS: PHENYTOIN 100 MG/4 ML UDC GT SCH ×2 (08:51→20:16)
[2022-10-02] MEDS: CHOLECALCIFEROL 400 UNITS TABLET GT SCH ×2 (08:53→20:17)
[2022-10-02] MEDS: COD LIVER OIL/ZINC OXIDE OINT 113 GM TUBE TP SCH ×4 (08:53→20:17)
[2022-10-02] MEDS: REMEDY ESSENTIAL ZINC PASTE 113 GM TP SCH ×2 (08:53→20:19)
[2022-10-02] MEDS: VITAMINS A AND D OINT 42 GM TUBE TP SCH ×3 (08:53→08:54)
[2022-10-02] MEDS: NYSTATIN CREAM 30 GM TUBE TP SCH ×2 (08:53→20:17)
[2022-10-02] MEDS: PHENOBARBITAL 64.8 MG TABLET GT SCH ×2 (08:53→20:17)
[2022-10-02 20:00] VITALS: TEMP 98.5
[2022-10-02] MEDS: MIRALAX 17 GM POWD.PACK GT SCH (20:17)
[2022-10-03] MEDS: ASCORBIC ACID 500 MG TABLET GT SCH (05:17)
[2022-10-03] MEDS: BACLOFEN 10 MG TABLET GT SCH ×3 (05:17→22:00)
[2022-10-03] MEDS: ARGININE/GLUTAMINE/CALCIUM BMB 1 EACH POWD.PACK GT SCH ×2 (05:17→18:29)
[2022-10-03] MEDS: OMEPRAZOLE 20 MG CAPSULE.DR GT SCH ×2 (05:46→20:36)
[2022-10-03] MEDS: IPRATROPIUM BROMIDE 0.5 MG/2.5 ML NEBU NEB SCH ×4 (07:17→19:02)
[2022-10-03] MEDS: HYDROGEN PEROXIDE 3% 118 ML BOTTLE TOP SCH ×2 (07:17→19:02)
[2022-10-03] MEDS: ALBUTEROL SULFATE 2.5 MG/3 ML NEBU NEB SCH ×4 (07:17→19:02)
[2022-10-03 08:00] VITALS: TEMP 98.2
[2022-10-03] MEDS: PHENYTOIN 100 MG/4 ML UDC GT SCH ×2 (08:50→20:36)
[2022-10-03] MEDS: PROTEIN SUPPLEMENT (PROSTAT) 30 ML LIQUID GT SCH (08:50)
[2022-10-03] MEDS: CULTURELLE CAPSULE GT SCH ×2 (08:50→20:36)
[2022-10-03] MEDS: PHENOBARBITAL 64.8 MG TABLET GT SCH ×2 (08:55→20:36)
[2022-10-03] MEDS: CHOLECALCIFEROL 400 UNITS TABLET GT SCH ×2 (08:55→20:37)
[2022-10-03] MEDS: VITAMINS A AND D OINT 42 GM TUBE TP SCH ×3 (08:56)
[2022-10-03] MEDS: COD LIVER OIL/ZINC OXIDE OINT 113 GM TUBE TP SCH ×4 (08:56→20:37)
[2022-10-03] MEDS: REMEDY ESSENTIAL ZINC PASTE 113 GM TP SCH ×2 (08:56→20:37)
[2022-10-03] MEDS: NYSTATIN CREAM 30 GM TUBE TP SCH ×2 (08:56→20:37)
[2022-10-03 20:00] VITALS: TEMP 98.7
[2022-10-03] MEDS: MIRALAX 17 GM POWD.PACK GT SCH (20:36)
[2022-10-04] MEDS: ASCORBIC ACID 500 MG TABLET GT SCH (05:22)
[2022-10-04] MEDS: BACLOFEN 10 MG TABLET GT SCH ×3 (05:22→21:35)
[2022-10-04] MEDS: ARGININE/GLUTAMINE/CALCIUM BMB 1 EACH POWD.PACK GT SCH ×2 (05:22→16:18)
[2022-10-04] MEDS: IPRATROPIUM BROMIDE 0.5 MG/2.5 ML NEBU NEB SCH ×4 (07:05→19:19)
[2022-10-04] MEDS: OMEPRAZOLE 20 MG CAPSULE.DR GT SCH ×2 (07:05→21:33)
[2022-10-04] MEDS: ALBUTEROL SULFATE 2.5 MG/3 ML NEBU NEB SCH ×4 (07:05→19:19)
[2022-10-04 08:00] VITALS: TEMP 98.4
[2022-10-04] MEDS: PROTEIN SUPPLEMENT (PROSTAT) 30 ML LIQUID GT SCH (08:00)
[2022-10-04] MEDS: NYSTATIN CREAM 30 GM TUBE TP SCH ×2 (09:00→21:35)
[2022-10-04] MEDS: CULTURELLE CAPSULE GT SCH ×2 (09:00→21:39)
[2022-10-04] MEDS: PHENYTOIN 100 MG/4 ML UDC GT SCH ×2 (09:00→21:31)
[2022-10-04] MEDS: HYDROGEN PEROXIDE 3% 118 ML BOTTLE TOP SCH ×2 (09:00→19:19)
[2022-10-04] MEDS: REMEDY ESSENTIAL ZINC PASTE 113 GM TP SCH ×2 (09:00→21:35)
[2022-10-04] MEDS: PHENOBARBITAL 64.8 MG TABLET GT SCH ×2 (09:00→21:33)
[2022-10-04] MEDS: CHOLECALCIFEROL 400 UNITS TABLET GT SCH ×2 (09:00→21:34)
[2022-10-04] MEDS: COD LIVER OIL/ZINC OXIDE OINT 113 GM TUBE TP SCH ×4 (09:00→21:34)
[2022-10-04] MEDS: VITAMINS A AND D OINT 42 GM TUBE TP SCH ×3 (09:00)
[2022-10-04] MEDS: MIRALAX 17 GM POWD.PACK GT SCH (21:33)
[2022-10-05] MEDS: ARGININE/GLUTAMINE/CALCIUM BMB 1 EACH POWD.PACK GT SCH ×2 (05:05→17:39)
[2022-10-05] MEDS: BACLOFEN 10 MG TABLET GT SCH ×3 (05:08→21:19)
[2022-10-05] MEDS: ASCORBIC ACID 500 MG TABLET GT SCH (05:08)
[2022-10-05] MEDS: OMEPRAZOLE 20 MG CAPSULE.DR GT SCH ×2 (06:10→21:19)
[2022-10-05] MEDS: IPRATROPIUM BROMIDE 0.5 MG/2.5 ML NEBU NEB SCH ×4 (07:03→19:09)
[2022-10-05] MEDS: ALBUTEROL SULFATE 2.5 MG/3 ML NEBU NEB SCH ×4 (07:03→19:09)
[2022-10-05] MEDS: PROTEIN SUPPLEMENT (PROSTAT) 30 ML LIQUID GT SCH (08:00)
[2022-10-05 08:20] VITALS: TEMP 97.6
[2022-10-05] MEDS: HYDROGEN PEROXIDE 3% 118 ML BOTTLE TOP SCH ×2 (08:50→19:09)
[2022-10-05] MEDS: CULTURELLE CAPSULE GT SCH ×2 (09:16→21:19)
[2022-10-05] MEDS: PHENYTOIN 100 MG/4 ML UDC GT SCH ×2 (09:16→21:19)
[2022-10-05] MEDS: CHOLECALCIFEROL 400 UNITS TABLET GT SCH ×2 (09:18→21:19)
[2022-10-05] MEDS: COD LIVER OIL/ZINC OXIDE OINT 113 GM TUBE TP SCH ×4 (09:18→21:19)
[2022-10-05] MEDS: PHENOBARBITAL 64.8 MG TABLET GT SCH ×2 (09:18→21:19)
[2022-10-05] MEDS: REMEDY ESSENTIAL ZINC PASTE 113 GM TP SCH ×2 (09:19→21:19)
[2022-10-05] MEDS: NYSTATIN CREAM 30 GM TUBE TP SCH ×2 (09:19→21:19)
[2022-10-05] MEDS: VITAMINS A AND D OINT 42 GM TUBE TP SCH ×3 (09:20)
[2022-10-05] MEDS: MIRALAX 17 GM POWD.PACK GT SCH (21:19)
[2022-10-05] MEDS: JEVITY 1.2 1000 ML LIQUID GT PRN (21:20)
[2022-10-05 21:22] VITALS: TEMP 98.4
[2022-10-06] MEDS: ARGININE/GLUTAMINE/CALCIUM BMB 1 EACH POWD.PACK GT SCH ×2 (05:46→18:00)
[2022-10-06] MEDS: OMEPRAZOLE 20 MG CAPSULE.DR GT SCH ×2 (05:47→20:47)
[2022-10-06] MEDS: ASCORBIC ACID 500 MG TABLET GT SCH (05:47)
[2022-10-06] MEDS: BACLOFEN 10 MG TABLET GT SCH ×3 (05:47→21:48)
[2022-10-06] MEDS: HYDROGEN PEROXIDE 3% 118 ML BOTTLE TOP SCH ×2 (07:12→19:23)
[2022-10-06] MEDS: ALBUTEROL SULFATE 2.5 MG/3 ML NEBU NEB SCH ×4 (07:12→19:23)
[2022-10-06] MEDS: IPRATROPIUM BROMIDE 0.5 MG/2.5 ML NEBU NEB SCH ×4 (07:12→19:23)
[2022-10-06 07:25] VITALS: TEMP 98
[2022-10-06] MEDS: PROTEIN SUPPLEMENT (PROSTAT) 30 ML LIQUID GT SCH (08:00)
[2022-10-06] MEDS: CULTURELLE CAPSULE GT SCH ×2 (09:00→20:47)
[2022-10-06] MEDS: PHENYTOIN 100 MG/4 ML UDC GT SCH ×2 (09:00→20:47)
[2022-10-06] MEDS: PHENOBARBITAL 64.8 MG TABLET GT SCH ×2 (09:00→20:47)
[2022-10-06] MEDS: REMEDY ESSENTIAL ZINC PASTE 113 GM TP SCH ×2 (09:00→20:50)
[2022-10-06] MEDS: COD LIVER OIL/ZINC OXIDE OINT 113 GM TUBE TP SCH ×3 (09:00→20:50)
[2022-10-06] MEDS: NYSTATIN CREAM 30 GM TUBE TP SCH (09:00)
[2022-10-06] MEDS: VITAMINS A AND D OINT 42 GM TUBE TP SCH ×3 (09:00)
[2022-10-06] MEDS: CHOLECALCIFEROL 400 UNITS TABLET GT SCH ×2 (09:00→20:49)
[2022-10-06 20:00] VITALS: TEMP 98.4
[2022-10-06] MEDS: MIRALAX 17 GM POWD.PACK GT SCH (20:47)
[2022-10-07] MEDS: ASCORBIC ACID 500 MG TABLET GT SCH (05:25)
[2022-10-07] MEDS: ARGININE/GLUTAMINE/CALCIUM BMB 1 EACH POWD.PACK GT SCH ×2 (05:25→17:38)
[2022-10-07] MEDS: BACLOFEN 10 MG TABLET GT SCH ×3 (05:25→21:43)
[2022-10-07] MEDS: OMEPRAZOLE 20 MG CAPSULE.DR GT SCH ×2 (06:30→20:29)
[2022-10-07 07:18] VITALS: TEMP 97.8
[2022-10-07] MEDS: IPRATROPIUM BROMIDE 0.5 MG/2.5 ML NEBU NEB SCH ×4 (07:41→19:10)
[2022-10-07] MEDS: HYDROGEN PEROXIDE 3% 118 ML BOTTLE TOP SCH ×2 (07:41→19:10)
[2022-10-07] MEDS: ALBUTEROL SULFATE 2.5 MG/3 ML NEBU NEB SCH ×4 (07:41→19:10)
[2022-10-07] MEDS: CHOLECALCIFEROL 400 UNITS TABLET GT SCH ×2 (08:20→20:30)
[2022-10-07] MEDS: PROTEIN SUPPLEMENT (PROSTAT) 30 ML LIQUID GT SCH (08:20)
[2022-10-07] MEDS: CULTURELLE CAPSULE GT SCH ×2 (08:20→20:29)
[2022-10-07] MEDS: PHENYTOIN 100 MG/4 ML UDC GT SCH ×2 (08:20→20:29)
[2022-10-07] MEDS: PHENOBARBITAL 64.8 MG TABLET GT SCH ×2 (08:20→20:29)
[2022-10-07] MEDS: REMEDY ESSENTIAL ZINC PASTE 113 GM TP SCH ×2 (08:21→20:30)
[2022-10-07] MEDS: COD LIVER OIL/ZINC OXIDE OINT 113 GM TUBE TP SCH ×2 (08:21→20:30)
[2022-10-07] MEDS: VITAMINS A AND D OINT 42 GM TUBE TP SCH ×3 (08:21)
[2022-10-07] MEDS: JEVITY 1.2 1000 ML LIQUID GT PRN (14:43)
[2022-10-07 20:00] VITALS: TEMP 98.4
[2022-10-07] MEDS: MIRALAX 17 GM POWD.PACK GT SCH (20:29)
[2022-10-08] MEDS: BACLOFEN 10 MG TABLET GT SCH ×3 (06:00→22:33)
[2022-10-08] MEDS: ARGININE/GLUTAMINE/CALCIUM BMB 1 EACH POWD.PACK GT SCH ×2 (06:00→17:29)
[2022-10-08] MEDS: OMEPRAZOLE 20 MG CAPSULE.DR GT SCH ×2 (06:00→20:28)
[2022-10-08] MEDS: ASCORBIC ACID 500 MG TABLET GT SCH (06:00)
[2022-10-08 07:19] VITALS: TEMP 97.5
[2022-10-08] MEDS: HYDROGEN PEROXIDE 3% 118 ML BOTTLE TOP SCH ×2 (08:14→19:01)
[2022-10-08] MEDS: ALBUTEROL SULFATE 2.5 MG/3 ML NEBU NEB SCH ×4 (08:14→19:01)
[2022-10-08] MEDS: IPRATROPIUM BROMIDE 0.5 MG/2.5 ML NEBU NEB SCH ×4 (08:14→19:00)
[2022-10-08] MEDS: CULTURELLE CAPSULE GT SCH ×2 (08:23→20:28)
[2022-10-08] MEDS: PROTEIN SUPPLEMENT (PROSTAT) 30 ML LIQUID GT SCH (08:23)
[2022-10-08] MEDS: PHENYTOIN 100 MG/4 ML UDC GT SCH ×2 (08:25→20:28)
[2022-10-08] MEDS: REMEDY ESSENTIAL ZINC PASTE 113 GM TP SCH ×2 (08:30→20:28)
[2022-10-08] MEDS: CHOLECALCIFEROL 400 UNITS TABLET GT SCH ×2 (08:30→20:28)
[2022-10-08] MEDS: COD LIVER OIL/ZINC OXIDE OINT 113 GM TUBE TP SCH ×2 (08:30→20:28)
[2022-10-08] MEDS: PHENOBARBITAL 64.8 MG TABLET GT SCH ×2 (08:30→20:28)
[2022-10-08] MEDS: VITAMINS A AND D OINT 42 GM TUBE TP SCH ×3 (08:31)
[2022-10-08] MEDS: JEVITY 1.2 1000 ML LIQUID GT PRN (13:45)
[2022-10-08 20:00] VITALS: TEMP 98.8
[2022-10-08] MEDS: MIRALAX 17 GM POWD.PACK GT SCH (20:28)
[2022-10-08] MEDS ORDERED: VANCOMYCIN IV 1,000 MG in IV DEXTROSE 5% 250 ML IV SCH (23:00)
[2022-10-08] MEDS ORDERED: VANCOMYCIN IV 1,250 MG in IV DEXTROSE 5% 250 ML IV SCH (23:00)
[2022-10-09] MEDS: BACLOFEN 10 MG TABLET GT SCH ×3 (05:10→21:56)
[2022-10-09] MEDS: ARGININE/GLUTAMINE/CALCIUM BMB 1 EACH POWD.PACK GT SCH ×2 (05:10→18:00)
[2022-10-09] MEDS: ASCORBIC ACID 500 MG TABLET GT SCH (05:10)
[2022-10-09] MEDS: JEVITY 1.2 1000 ML LIQUID GT PRN (06:50)
[2022-10-09] MEDS: OMEPRAZOLE 20 MG CAPSULE.DR GT SCH ×2 (06:50→20:06)
[2022-10-09] MEDS: IPRATROPIUM BROMIDE 0.5 MG/2.5 ML NEBU NEB SCH ×4 (07:15→19:02)
[2022-10-09] MEDS: ALBUTEROL SULFATE 2.5 MG/3 ML NEBU NEB SCH ×4 (07:16→19:02)
[2022-10-09 07:21] LABS: BASOPHILS # (AUTO) 0.2 K/UL (0.0-0.2); BASOPHILS % (AUTO) 2.5 % (0.0-2.0); EOSINOPHILS # (AUTO) 0.3 K/uL (0.0-0.7); EOSINOPHILS % (AUTO) 4.2 % (0.0-7.0); HEMATOCRIT 44.6 % (36.7-47.1); HEMOGLOBIN 15.2 g/dL (12.5-16.3); LYMPHOCYTES # (AUTO) 2.1 K/uL (0.8-4.8); LYMPHOCYTES % (AUTO) 29.4 % (20.5-51.5); MEAN CORPUSCULAR HEMOGLOBIN 32.6 uug (23.8-33.4); MEAN CORPUSCULAR HGB CONC 34 g/dL (32.5-36.3); MEAN CORPUSCULAR VOLUME 95.4 fL (73.0-96.2); MONOCYTES # (AUTO) 0.8 K/uL (0.1-1.30); MONOCYTES % (AUTO) 11.5 % (0.0-11.0); NEUTROPHILS # (AUTO) 3.7 K/uL (1.8-8.9); NEUTROPHILS % (AUTO) 52.4 % (38.5-71.5); PLATELET COUNT (AUTO) 132 K/uL (152-348); RED BLOOD CELL COUNT(AUTO) 4.67 MIL/uL (4.06-5.63); RED CELL DISTRIBUTION WIDTH 13.6 % (12.1-16.2)
[2022-10-09 07:24] LABS: DIFFERENTIAL COMMENT 1
[2022-10-09] MEDS: HYDROGEN PEROXIDE 3% 118 ML BOTTLE TOP SCH ×2 (07:24→20:43)
[2022-10-09 07:51] LABS: CALCIUM 8.3 mg/dL (8.5-10.1); CREATININE 0.7 mg/dL (0.6-1.3); MAGNESIUM 2.2 mg/dL (1.8-2.4); PHOSPHOROUS 3.3 mg/dL (2.5-4.9); POTASSIUM 4.1 mmol/L (3.5-5.1)
[2022-10-09 08:00] VITALS: TEMP 97.6
[2022-10-09] MEDS: PROTEIN SUPPLEMENT (PROSTAT) 30 ML LIQUID GT SCH (08:00)
[2022-10-09] MEDS ORDERED: DIATR MEGLU/DIATRIZOATE SODIUM 30 ML BOTTLE PO ONE (09:00)
[2022-10-09] MEDS: VITAMINS A AND D OINT 42 GM TUBE TP SCH ×3 (09:00)
[2022-10-09] MEDS: REMEDY ESSENTIAL ZINC PASTE 113 GM TP SCH ×2 (09:00→20:08)
[2022-10-09] MEDS: COD LIVER OIL/ZINC OXIDE OINT 113 GM TUBE TP SCH ×2 (09:00→20:08)
[2022-10-09] MEDS: PHENYTOIN 100 MG/4 ML UDC GT SCH ×2 (09:12→20:06)
[2022-10-09] MEDS: CULTURELLE CAPSULE GT SCH ×2 (09:12→20:06)
[2022-10-09] MEDS: PHENOBARBITAL 64.8 MG TABLET GT SCH ×2 (09:15→20:06)
[2022-10-09] MEDS: CHOLECALCIFEROL 400 UNITS TABLET GT SCH ×2 (09:17→20:07)
[2022-10-09] MEDS: MEROPENEM 0.5 G in IV NORMAL SALINE 50 ML IV SCH ×2 (14:00→21:55)
[2022-10-09] MEDS ORDERED: VANCOMYCIN IV 1,250 MG in IV DEXTROSE 5% 250 ML IV SCH (14:45)
[2022-10-09] MEDS: VANCOMYCIN IV 1,250 MG in IV DEXTROSE 5% 250 ML IV SCH (15:00)
[2022-10-09 20:00] VITALS: TEMP 98.4
[2022-10-09] MEDS: MIRALAX 17 GM POWD.PACK GT SCH (20:06)
[2022-10-09] MEDS: NORMAL SALINE FLUSH 10 ML DISP.SYRIN IV SCH (20:07)
[2022-10-10] MEDS: BACLOFEN 10 MG TABLET GT SCH ×3 (05:31→22:21)
[2022-10-10] MEDS: OMEPRAZOLE 20 MG CAPSULE.DR GT SCH ×2 (05:31→21:00)
[2022-10-10] MEDS: ASCORBIC ACID 500 MG TABLET GT SCH (05:31)
[2022-10-10] MEDS: MEROPENEM 0.5 G in IV NORMAL SALINE 50 ML IV SCH ×3 (05:31→22:48)
[2022-10-10] MEDS: ARGININE/GLUTAMINE/CALCIUM BMB 1 EACH POWD.PACK GT SCH ×2 (05:31→17:42)
[2022-10-10] MEDS: IPRATROPIUM BROMIDE 0.5 MG/2.5 ML NEBU NEB SCH ×4 (07:48→19:30)
[2022-10-10] MEDS: HYDROGEN PEROXIDE 3% 118 ML BOTTLE TOP SCH ×2 (07:48→21:00)
[2022-10-10] MEDS: ALBUTEROL SULFATE 2.5 MG/3 ML NEBU NEB SCH ×4 (07:48→19:30)
[2022-10-10 08:00] VITALS: TEMP 98.2
[2022-10-10] MEDS: PROTEIN SUPPLEMENT (PROSTAT) 30 ML LIQUID GT SCH (08:00)
[2022-10-10] MEDS: CULTURELLE CAPSULE GT SCH ×2 (09:30→21:00)
[2022-10-10] MEDS: PHENYTOIN 100 MG/4 ML UDC GT SCH ×2 (09:31→21:00)
[2022-10-10] MEDS: CHOLECALCIFEROL 400 UNITS TABLET GT SCH ×2 (09:32→21:00)
[2022-10-10] MEDS: PHENOBARBITAL 64.8 MG TABLET GT SCH ×2 (09:32→21:00)
[2022-10-10] MEDS: REMEDY ESSENTIAL ZINC PASTE 113 GM TP SCH ×2 (09:33→21:00)
[2022-10-10] MEDS: VITAMINS A AND D OINT 42 GM TUBE TP SCH ×3 (09:33)
[2022-10-10] MEDS: NORMAL SALINE FLUSH 10 ML DISP.SYRIN IV SCH ×2 (09:33→21:00)
[2022-10-10] MEDS: COD LIVER OIL/ZINC OXIDE OINT 113 GM TUBE TP SCH ×2 (09:33→21:00)
[2022-10-10] MEDS: VANCOMYCIN IV 1,250 MG in IV DEXTROSE 5% 250 ML IV SCH ×4 (09:38→20:00)
[2022-10-10] MEDS: MIRALAX 17 GM POWD.PACK GT SCH (21:00)
[2022-10-11 00:40] VITALS: TEMP 98.4
[2022-10-11] MEDS: ASCORBIC ACID 500 MG TABLET GT SCH (06:13)
[2022-10-11] MEDS: BACLOFEN 10 MG TABLET GT SCH ×3 (06:13→21:25)
[2022-10-11] MEDS: MEROPENEM 0.5 G in IV NORMAL SALINE 50 ML IV SCH ×3 (06:13→21:27)
[2022-10-11] MEDS: ARGININE/GLUTAMINE/CALCIUM BMB 1 EACH POWD.PACK GT SCH ×2 (06:13→17:52)
[2022-10-11] MEDS: OMEPRAZOLE 20 MG CAPSULE.DR GT SCH ×2 (06:14→21:24)
[2022-10-11] MEDS: VANCOMYCIN IV 1,250 MG in IV DEXTROSE 5% 250 ML IV SCH ×2 (06:14→16:00)
[2022-10-11] MEDS: JEVITY 1.2 1000 ML LIQUID GT PRN (06:15)
[2022-10-11] MEDS: HYDROGEN PEROXIDE 3% 118 ML BOTTLE TOP SCH ×2 (08:13→21:36)
[2022-10-11] MEDS: IPRATROPIUM BROMIDE 0.5 MG/2.5 ML NEBU NEB SCH ×4 (08:13→21:35)
[2022-10-11] MEDS: ALBUTEROL SULFATE 2.5 MG/3 ML NEBU NEB SCH ×4 (08:13→21:36)
[2022-10-11] MEDS: PROTEIN SUPPLEMENT (PROSTAT) 30 ML LIQUID GT SCH (08:49)
[2022-10-11] MEDS: CULTURELLE CAPSULE GT SCH ×2 (08:49→21:14)
[2022-10-11] MEDS: CHOLECALCIFEROL 400 UNITS TABLET GT SCH ×2 (08:50→21:25)
[2022-10-11] MEDS: COD LIVER OIL/ZINC OXIDE OINT 113 GM TUBE TP SCH ×2 (08:50→21:25)
[2022-10-11] MEDS: REMEDY ESSENTIAL ZINC PASTE 113 GM TP SCH ×2 (08:50→21:25)
[2022-10-11] MEDS: PHENYTOIN 100 MG/4 ML UDC GT SCH ×2 (08:50→21:19)
[2022-10-11] MEDS: PHENOBARBITAL 64.8 MG TABLET GT SCH ×2 (08:50→21:24)
[2022-10-11] MEDS: VITAMINS A AND D OINT 42 GM TUBE TP SCH ×3 (08:50)
[2022-10-11] MEDS: NORMAL SALINE FLUSH 10 ML DISP.SYRIN IV SCH ×2 (08:50→21:25)
[2022-10-11 11:17] VITALS: TEMP 98.8
[2022-10-11 21:22] VITALS: TEMP 98.4
[2022-10-11] MEDS: MIRALAX 17 GM POWD.PACK GT SCH (21:24)
[2022-10-12] MEDS: JEVITY 1.2 1000 ML LIQUID GT PRN (01:08)
[2022-10-12] MEDS: VANCOMYCIN IV 1,250 MG in IV DEXTROSE 5% 250 ML IV SCH ×3 (02:00→22:00)
[2022-10-12] MEDS: ASCORBIC ACID 500 MG TABLET GT SCH (05:12)
[2022-10-12] MEDS: ARGININE/GLUTAMINE/CALCIUM BMB 1 EACH POWD.PACK GT SCH ×2 (05:12→17:09)
[2022-10-12] MEDS: BACLOFEN 10 MG TABLET GT SCH ×3 (05:12→21:28)
[2022-10-12] MEDS: OMEPRAZOLE 20 MG CAPSULE.DR GT SCH ×2 (05:13→21:27)
[2022-10-12] MEDS: MEROPENEM 0.5 G in IV NORMAL SALINE 50 ML IV SCH ×3 (06:13→21:28)
[2022-10-12] MEDS: ALBUTEROL SULFATE 2.5 MG/3 ML NEBU NEB SCH ×4 (08:01→19:03)
[2022-10-12] MEDS: HYDROGEN PEROXIDE 3% 118 ML BOTTLE TOP SCH ×2 (08:01→19:03)
[2022-10-12] MEDS: IPRATROPIUM BROMIDE 0.5 MG/2.5 ML NEBU NEB SCH ×4 (08:01→19:03)
[2022-10-12 08:19] VITALS: TEMP 98.8
[2022-10-12] MEDS: PROTEIN SUPPLEMENT (PROSTAT) 30 ML LIQUID GT SCH (08:55)
[2022-10-12] MEDS: CULTURELLE CAPSULE GT SCH ×2 (08:55→21:25)
[2022-10-12] MEDS: CHOLECALCIFEROL 400 UNITS TABLET GT SCH ×2 (08:57→21:27)
[2022-10-12] MEDS: PHENOBARBITAL 64.8 MG TABLET GT SCH ×2 (08:57→21:27)
[2022-10-12] MEDS: PHENYTOIN 100 MG/4 ML UDC GT SCH ×2 (08:57→21:27)
[2022-10-12] MEDS: COD LIVER OIL/ZINC OXIDE OINT 113 GM TUBE TP SCH ×2 (08:59→21:28)
[2022-10-12] MEDS: REMEDY ESSENTIAL ZINC PASTE 113 GM TP SCH ×2 (08:59→21:28)
[2022-10-12] MEDS: VITAMINS A AND D OINT 42 GM TUBE TP SCH ×3 (08:59)
[2022-10-12] MEDS: NORMAL SALINE FLUSH 10 ML DISP.SYRIN IV SCH ×2 (09:00→21:28)
[2022-10-12 20:00] VITALS: TEMP 98
[2022-10-12] MEDS: MIRALAX 17 GM POWD.PACK GT SCH (21:27)
[2022-10-13] MEDS: ASCORBIC ACID 500 MG TABLET GT SCH (06:06)
[2022-10-13] MEDS: MEROPENEM 0.5 G in IV NORMAL SALINE 50 ML IV SCH (06:06)
[2022-10-13] MEDS: BACLOFEN 10 MG TABLET GT SCH ×3 (06:06→21:46)
[2022-10-13] MEDS: ARGININE/GLUTAMINE/CALCIUM BMB 1 EACH POWD.PACK GT SCH ×2 (06:06→17:46)
[2022-10-13] MEDS: OMEPRAZOLE 20 MG CAPSULE.DR GT SCH ×2 (06:30→21:45)
[2022-10-13] MEDS: VANCOMYCIN IV 1,250 MG in IV DEXTROSE 5% 250 ML IV SCH (08:00)
[2022-10-13] MEDS: PROTEIN SUPPLEMENT (PROSTAT) 30 ML LIQUID GT SCH (08:00)
[2022-10-13 08:02] VITALS: TEMP 97.7
[2022-10-13] MEDS: IPRATROPIUM BROMIDE 0.5 MG/2.5 ML NEBU NEB SCH ×4 (08:27→20:00)
[2022-10-13] MEDS: ALBUTEROL SULFATE 2.5 MG/3 ML NEBU NEB SCH ×4 (08:27→20:00)
[2022-10-13] MEDS: HYDROGEN PEROXIDE 3% 118 ML BOTTLE TOP SCH ×2 (08:28→20:00)
[2022-10-13] MEDS: NORMAL SALINE FLUSH 10 ML DISP.SYRIN IV SCH (09:00)
[2022-10-13] MEDS: PHENYTOIN 100 MG/4 ML UDC GT SCH ×2 (09:11→21:45)
[2022-10-13] MEDS: PHENOBARBITAL 64.8 MG TABLET GT SCH ×2 (09:13→21:45)
[2022-10-13] MEDS: VITAMINS A AND D OINT 42 GM TUBE TP SCH ×3 (09:14→09:15)
[2022-10-13] MEDS: COD LIVER OIL/ZINC OXIDE OINT 113 GM TUBE TP SCH ×2 (09:14→21:46)
[2022-10-13] MEDS: REMEDY ESSENTIAL ZINC PASTE 113 GM TP SCH ×2 (09:14→21:46)
[2022-10-13] MEDS: CHOLECALCIFEROL 400 UNITS TABLET GT SCH ×2 (09:14→21:46)
[2022-10-13] MEDS: CULTURELLE CAPSULE GT SCH ×2 (09:21→21:45)
[2022-10-13 20:00] VITALS: TEMP 97.5
[2022-10-13] MEDS: MIRALAX 17 GM POWD.PACK GT SCH (21:45)
[2022-10-13] MEDS: SULFAMETH/TRIMETH 800/160 MG TABLET GT SCH (21:45)
[2022-10-14] MEDS: JEVITY 1.2 1000 ML LIQUID GT PRN (02:54)
[2022-10-14] MEDS: ASCORBIC ACID 500 MG TABLET GT SCH (05:27)
[2022-10-14] MEDS: BACLOFEN 10 MG TABLET GT SCH ×3 (05:27→22:00)
[2022-10-14] MEDS: ARGININE/GLUTAMINE/CALCIUM BMB 1 EACH POWD.PACK GT SCH ×2 (05:27→18:08)
[2022-10-14] MEDS: OMEPRAZOLE 20 MG CAPSULE.DR GT SCH ×2 (07:07→20:51)
[2022-10-14] MEDS: IPRATROPIUM BROMIDE 0.5 MG/2.5 ML NEBU NEB SCH ×4 (07:18→19:00)
[2022-10-14] MEDS: HYDROGEN PEROXIDE 3% 118 ML BOTTLE TOP SCH ×2 (07:18→19:01)
[2022-10-14] MEDS: ALBUTEROL SULFATE 2.5 MG/3 ML NEBU NEB SCH ×4 (07:18→19:01)
[2022-10-14 07:30] VITALS: TEMP 97.9
[2022-10-14] MEDS: PROTEIN SUPPLEMENT (PROSTAT) 30 ML LIQUID GT SCH (08:00)
[2022-10-14] MEDS: PHENOBARBITAL 64.8 MG TABLET GT SCH ×2 (09:00→20:51)
[2022-10-14] MEDS: PHENYTOIN 100 MG/4 ML UDC GT SCH ×2 (09:00→20:51)
[2022-10-14] MEDS: SULFAMETH/TRIMETH 800/160 MG TABLET GT SCH ×2 (09:00→20:51)
[2022-10-14] MEDS: COD LIVER OIL/ZINC OXIDE OINT 113 GM TUBE TP SCH ×2 (09:00→20:51)
[2022-10-14] MEDS: CHOLECALCIFEROL 400 UNITS TABLET GT SCH ×2 (09:00→20:51)
[2022-10-14] MEDS: VITAMINS A AND D OINT 42 GM TUBE TP SCH ×3 (09:00)
[2022-10-14] MEDS: CULTURELLE CAPSULE GT SCH ×2 (09:00→20:51)
[2022-10-14] MEDS: REMEDY ESSENTIAL ZINC PASTE 113 GM TP SCH ×2 (09:00→20:52)
[2022-10-14 19:54] VITALS: TEMP 97.9
[2022-10-14] MEDS: MIRALAX 17 GM POWD.PACK GT SCH (20:51)
[2022-10-15] MEDS: JEVITY 1.2 1000 ML LIQUID GT PRN (02:36)
[2022-10-15] MEDS: ARGININE/GLUTAMINE/CALCIUM BMB 1 EACH POWD.PACK GT SCH ×2 (06:39→18:34)
[2022-10-15] MEDS: ASCORBIC ACID 500 MG TABLET GT SCH (06:39)
[2022-10-15] MEDS: BACLOFEN 10 MG TABLET GT SCH ×3 (06:39→22:16)
[2022-10-15] MEDS: OMEPRAZOLE 20 MG CAPSULE.DR GT SCH ×2 (06:39→20:50)
[2022-10-15 07:22] VITALS: TEMP 98.5
[2022-10-15] MEDS: ALBUTEROL SULFATE 2.5 MG/3 ML NEBU NEB SCH ×4 (07:27→19:00)
[2022-10-15] MEDS: IPRATROPIUM BROMIDE 0.5 MG/2.5 ML NEBU NEB SCH ×4 (07:27→19:00)
[2022-10-15] MEDS: HYDROGEN PEROXIDE 3% 118 ML BOTTLE TOP SCH ×2 (07:27→19:00)
[2022-10-15] MEDS: PROTEIN SUPPLEMENT (PROSTAT) 30 ML LIQUID GT SCH (08:00)
[2022-10-15] MEDS: SULFAMETH/TRIMETH 800/160 MG TABLET GT SCH ×2 (09:23→20:36)
[2022-10-15] MEDS: COD LIVER OIL/ZINC OXIDE OINT 113 GM TUBE TP SCH ×2 (09:24→20:50)
[2022-10-15] MEDS: REMEDY ESSENTIAL ZINC PASTE 113 GM TP SCH ×2 (09:24→20:50)
[2022-10-15] MEDS: CULTURELLE CAPSULE GT SCH ×2 (09:24→20:45)
[2022-10-15] MEDS: VITAMINS A AND D OINT 42 GM TUBE TP SCH ×3 (09:24)
[2022-10-15] MEDS: PHENYTOIN 100 MG/4 ML UDC GT SCH ×2 (09:24→20:45)
[2022-10-15] MEDS: CHOLECALCIFEROL 400 UNITS TABLET GT SCH ×2 (09:24→20:50)
[2022-10-15] MEDS: PHENOBARBITAL 64.8 MG TABLET GT SCH ×2 (09:24→20:45)
[2022-10-15 20:00] VITALS: TEMP 98
[2022-10-15] MEDS: MIRALAX 17 GM POWD.PACK GT SCH (20:50)
[2022-10-16] MEDS: ASCORBIC ACID 500 MG TABLET GT SCH (05:06)
[2022-10-16] MEDS: ARGININE/GLUTAMINE/CALCIUM BMB 1 EACH POWD.PACK GT SCH ×2 (05:06→17:29)
[2022-10-16] MEDS: BACLOFEN 10 MG TABLET GT SCH ×3 (05:06→22:00)
[2022-10-16] MEDS: OMEPRAZOLE 20 MG CAPSULE.DR GT SCH ×2 (05:51→20:23)
[2022-10-16] MEDS: ALBUTEROL SULFATE 2.5 MG/3 ML NEBU NEB SCH ×4 (07:18→19:08)
[2022-10-16] MEDS: IPRATROPIUM BROMIDE 0.5 MG/2.5 ML NEBU NEB SCH ×4 (07:18→19:08)
[2022-10-16 07:23] VITALS: TEMP 97.9
[2022-10-16] MEDS: PROTEIN SUPPLEMENT (PROSTAT) 30 ML LIQUID GT SCH (08:00)
[2022-10-16] MEDS: HYDROGEN PEROXIDE 3% 118 ML BOTTLE TOP SCH ×2 (08:35→19:08)
[2022-10-16] MEDS: SULFAMETH/TRIMETH 800/160 MG TABLET GT SCH ×2 (09:07→20:23)
[2022-10-16] MEDS: PHENYTOIN 100 MG/4 ML UDC GT SCH ×2 (09:09→20:23)
[2022-10-16] MEDS: CULTURELLE CAPSULE GT SCH ×2 (09:09→20:23)
[2022-10-16] MEDS: PHENOBARBITAL 64.8 MG TABLET GT SCH ×2 (09:10→20:23)
[2022-10-16] MEDS: COD LIVER OIL/ZINC OXIDE OINT 113 GM TUBE TP SCH ×2 (09:10→20:24)
[2022-10-16] MEDS: CHOLECALCIFEROL 400 UNITS TABLET GT SCH ×2 (09:10→20:23)
[2022-10-16] MEDS: REMEDY ESSENTIAL ZINC PASTE 113 GM TP SCH ×2 (09:11→20:24)
[2022-10-16] MEDS: VITAMINS A AND D OINT 42 GM TUBE TP SCH ×3 (09:11)
[2022-10-16 20:00] VITALS: TEMP 97.8
[2022-10-16] MEDS: MIRALAX 17 GM POWD.PACK GT SCH (20:23)
[2022-10-17] MEDS: BACLOFEN 10 MG TABLET GT SCH ×3 (06:23→22:37)
[2022-10-17] MEDS: ASCORBIC ACID 500 MG TABLET GT SCH (06:23)
[2022-10-17] MEDS: ARGININE/GLUTAMINE/CALCIUM BMB 1 EACH POWD.PACK GT SCH (06:23)
[2022-10-17] MEDS: JEVITY 1.2 1000 ML LIQUID GT PRN (06:23)
[2022-10-17] MEDS: OMEPRAZOLE 20 MG CAPSULE.DR GT SCH ×2 (06:23→20:05)
[2022-10-17 07:17] VITALS: TEMP 97.9
[2022-10-17] MEDS: IPRATROPIUM BROMIDE 0.5 MG/2.5 ML NEBU NEB SCH ×4 (07:46→19:17)
[2022-10-17] MEDS: ALBUTEROL SULFATE 2.5 MG/3 ML NEBU NEB SCH ×4 (07:46→19:17)
[2022-10-17] MEDS: HYDROGEN PEROXIDE 3% 118 ML BOTTLE TOP SCH ×2 (07:46→19:17)
[2022-10-17] MEDS: PROTEIN SUPPLEMENT (PROSTAT) 30 ML LIQUID GT SCH (08:00)
[2022-10-17] MEDS: CHOLECALCIFEROL 400 UNITS TABLET GT SCH ×2 (09:52→20:05)
[2022-10-17] MEDS: PHENOBARBITAL 64.8 MG TABLET GT SCH ×2 (09:52→20:05)
[2022-10-17] MEDS: SULFAMETH/TRIMETH 800/160 MG TABLET GT SCH ×2 (09:52→20:05)
[2022-10-17] MEDS: PHENYTOIN 100 MG/4 ML UDC GT SCH ×2 (09:52→20:05)
[2022-10-17] MEDS: CULTURELLE CAPSULE GT SCH ×2 (09:52→20:05)
[2022-10-17] MEDS: VITAMINS A AND D OINT 42 GM TUBE TP SCH ×3 (09:53)
[2022-10-17] MEDS: REMEDY ESSENTIAL ZINC PASTE 113 GM TP SCH ×2 (09:53→20:06)
[2022-10-17] MEDS: COD LIVER OIL/ZINC OXIDE OINT 113 GM TUBE TP SCH ×2 (09:53→20:05)
[2022-10-17 17:27] VITALS: O2SAT 98
[2022-10-17 19:59] VITALS: TEMP 98
[2022-10-17] MEDS: MIRALAX 17 GM POWD.PACK GT SCH (20:05)
[2022-10-18] MEDS: BACLOFEN 10 MG TABLET GT SCH ×3 (05:12→22:17)
[2022-10-18] MEDS: ARGININE/GLUTAMINE/CALCIUM BMB 1 EACH POWD.PACK GT SCH ×2 (05:12→17:22)
[2022-10-18] MEDS: ASCORBIC ACID 500 MG TABLET GT SCH (05:12)
[2022-10-18] MEDS: JEVITY 1.2 1000 ML LIQUID GT PRN (05:13)
[2022-10-18] MEDS: OMEPRAZOLE 20 MG CAPSULE.DR GT SCH ×2 (06:30→20:25)
[2022-10-18] MEDS: HYDROGEN PEROXIDE 3% 118 ML BOTTLE TOP SCH ×2 (07:42→19:00)
[2022-10-18] MEDS: ALBUTEROL SULFATE 2.5 MG/3 ML NEBU NEB SCH ×4 (07:42→19:00)
[2022-10-18] MEDS: IPRATROPIUM BROMIDE 0.5 MG/2.5 ML NEBU NEB SCH ×4 (07:42→19:00)
[2022-10-18 07:43] VITALS: TEMP 97.4
[2022-10-18] MEDS: SULFAMETH/TRIMETH 800/160 MG TABLET GT SCH (08:35)
[2022-10-18] MEDS: PROTEIN SUPPLEMENT (PROSTAT) 30 ML LIQUID GT SCH (08:35)
[2022-10-18] MEDS: CULTURELLE CAPSULE GT SCH ×2 (08:35→20:21)
[2022-10-18] MEDS: CHOLECALCIFEROL 400 UNITS TABLET GT SCH ×2 (08:36→20:25)
[2022-10-18] MEDS: PHENOBARBITAL 64.8 MG TABLET GT SCH ×2 (08:36→20:24)
[2022-10-18] MEDS: PHENYTOIN 100 MG/4 ML UDC GT SCH ×2 (08:36→20:24)
[2022-10-18] MEDS: REMEDY ESSENTIAL ZINC PASTE 113 GM TP SCH ×2 (08:37→20:26)
[2022-10-18] MEDS: COD LIVER OIL/ZINC OXIDE OINT 113 GM TUBE TP SCH ×2 (08:37→20:25)
[2022-10-18] MEDS: VITAMINS A AND D OINT 42 GM TUBE TP SCH ×3 (08:37)
[2022-10-18] MEDS ORDERED: DIATR MEGLU/DIATRIZOATE SODIUM 30 ML BOTTLE ONE (12:32)
[2022-10-18] MEDS: VANCOMYCIN IV 1,000 MG in IV DEXTROSE 5% 250 ML IV SCH ×2 (14:19→22:17)
[2022-10-18] MEDS ORDERED: MEROPENEM 0.5 G in IV NORMAL SALINE 50 ML IV SCH (16:00)
[2022-10-18 20:00] VITALS: TEMP 98
[2022-10-18] MEDS: MIRALAX 17 GM POWD.PACK GT SCH (20:25)
[2022-10-19] MEDS: ACETAMINOPHEN 650 MG/20 ML UDC- SA PATIENTS-PAIN ONLY GT PRN (02:03)
[2022-10-19] MEDS: JEVITY 1.2 1000 ML LIQUID GT PRN ×2 (05:00→21:30)
[2022-10-19] MEDS: ARGININE/GLUTAMINE/CALCIUM BMB 1 EACH POWD.PACK GT SCH ×2 (05:06→18:36)
[2022-10-19] MEDS: OMEPRAZOLE 20 MG CAPSULE.DR GT SCH ×2 (05:07→21:00)
[2022-10-19] MEDS: BACLOFEN 10 MG TABLET GT SCH ×3 (05:07→22:00)
[2022-10-19] MEDS: ASCORBIC ACID 500 MG TABLET GT SCH (05:07)
[2022-10-19] MEDS: VANCOMYCIN IV 1,000 MG in IV DEXTROSE 5% 250 ML IV SCH ×3 (06:12→22:00)
[2022-10-19] MEDS: IPRATROPIUM BROMIDE 0.5 MG/2.5 ML NEBU NEB SCH ×4 (07:04→19:10)
[2022-10-19] MEDS: ALBUTEROL SULFATE 2.5 MG/3 ML NEBU NEB SCH ×4 (07:04→19:10)
[2022-10-19 07:38] VITALS: TEMP 97.1
[2022-10-19] MEDS: PROTEIN SUPPLEMENT (PROSTAT) 30 ML LIQUID GT SCH (08:45)
[2022-10-19] MEDS: CULTURELLE CAPSULE GT SCH ×2 (08:48→21:00)
[2022-10-19] MEDS: PHENYTOIN 100 MG/4 ML UDC GT SCH ×2 (08:48→21:00)
[2022-10-19] MEDS: HYDROGEN PEROXIDE 3% 118 ML BOTTLE TOP SCH ×2 (08:48→19:10)
[2022-10-19] MEDS: CHOLECALCIFEROL 400 UNITS TABLET GT SCH ×2 (08:50→21:00)
[2022-10-19] MEDS: PHENOBARBITAL 64.8 MG TABLET GT SCH ×2 (08:50→21:00)
[2022-10-19] MEDS: COD LIVER OIL/ZINC OXIDE OINT 113 GM TUBE TP SCH ×2 (08:51→21:00)
[2022-10-19] MEDS: VITAMINS A AND D OINT 42 GM TUBE TP SCH ×3 (08:51)
[2022-10-19] MEDS: REMEDY ESSENTIAL ZINC PASTE 113 GM TP SCH ×2 (08:51→21:00)
[2022-10-19 13:42] LABS: CREATININE 0.7 mg/dL (0.6-1.3)
[2022-10-19 20:00] VITALS: TEMP 97.6
[2022-10-19] MEDS: MIRALAX 17 GM POWD.PACK GT SCH (21:00)
[2022-10-20] MEDS: JEVITY 1.2 1000 ML LIQUID GT PRN (04:28)
[2022-10-20] MEDS: ASCORBIC ACID 500 MG TABLET GT SCH (05:46)
[2022-10-20] MEDS: BACLOFEN 10 MG TABLET GT SCH ×3 (05:46→21:12)
[2022-10-20] MEDS: OMEPRAZOLE 20 MG CAPSULE.DR GT SCH ×2 (05:46→21:12)
[2022-10-20] MEDS: VANCOMYCIN IV 1,000 MG in IV DEXTROSE 5% 250 ML IV SCH ×3 (05:46→21:43)
[2022-10-20] MEDS: ARGININE/GLUTAMINE/CALCIUM BMB 1 EACH POWD.PACK GT SCH ×2 (05:46→17:31)
[2022-10-20] MEDS: ALBUTEROL SULFATE 2.5 MG/3 ML NEBU NEB SCH ×4 (06:20→19:08)
[2022-10-20] MEDS: IPRATROPIUM BROMIDE 0.5 MG/2.5 ML NEBU NEB SCH ×4 (06:20→19:08)
[2022-10-20] MEDS: PROTEIN SUPPLEMENT (PROSTAT) 30 ML LIQUID GT SCH (08:00)
[2022-10-20 08:04] VITALS: TEMP 97.5
[2022-10-20] MEDS: HYDROGEN PEROXIDE 3% 118 ML BOTTLE TOP SCH ×2 (08:54→19:20)
[2022-10-20] MEDS: COD LIVER OIL/ZINC OXIDE OINT 113 GM TUBE TP SCH ×3 (09:00→21:43)
[2022-10-20] MEDS: PHENYTOIN 100 MG/4 ML UDC GT SCH ×2 (09:30→21:12)
[2022-10-20] MEDS: PHENOBARBITAL 64.8 MG TABLET GT SCH ×2 (09:31→21:12)
[2022-10-20] MEDS: CHOLECALCIFEROL 400 UNITS TABLET GT SCH ×2 (09:32→21:12)
[2022-10-20] MEDS: VITAMINS A AND D 5 GM UD PKT TP SCH ×3 (09:34→09:35)
[2022-10-20] MEDS: REMEDY ESSENTIAL ZINC PASTE 113 GM TP SCH ×2 (09:34→21:12)
[2022-10-20] MEDS: CULTURELLE CAPSULE GT SCH ×2 (09:37→21:12)
[2022-10-20] MEDS ORDERED: JEVITY 1.2 1000 ML LIQUID GT PRN (13:30)
[2022-10-20] MEDS: ACETAMINOPHEN 650 MG/20 ML UDC- SA PATIENTS-PAIN ONLY GT PRN (13:33)
[2022-10-20] MEDS: IV D5/ 0.9% NACL 1,000 ML IV SCH (14:57)
[2022-10-20 20:00] VITALS: TEMP 97.6
[2022-10-20] MEDS: MIRALAX 17 GM POWD.PACK GT SCH (21:12)
[2022-10-21] MEDS: ARGININE/GLUTAMINE/CALCIUM BMB 1 EACH POWD.PACK GT SCH ×2 (05:30→17:51)
[2022-10-21] MEDS: IV D5/ 0.9% NACL 1,000 ML IV SCH ×2 (05:30→19:06)
[2022-10-21] MEDS: ASCORBIC ACID 500 MG TABLET GT SCH (05:30)
[2022-10-21] MEDS: BACLOFEN 10 MG TABLET GT SCH ×3 (05:30→21:20)
[2022-10-21] MEDS: VANCOMYCIN IV 1,000 MG in IV DEXTROSE 5% 250 ML IV SCH ×3 (05:46→22:00)
[2022-10-21] MEDS: OMEPRAZOLE 20 MG CAPSULE.DR GT SCH ×2 (05:46→21:20)
[2022-10-21 06:39] LABS: BASOPHILS # (AUTO) 0.1 K/UL (0.0-0.2); BASOPHILS % (AUTO) 1.5 % (0.0-2.0); EOSINOPHILS # (AUTO) 0.3 K/uL (0.0-0.7); EOSINOPHILS % (AUTO) 4.7 % (0.0-7.0); HEMATOCRIT 44.6 % (36.7-47.1); HEMOGLOBIN 15.3 g/dL (12.5-16.3); LYMPHOCYTES % (AUTO) 36.9 % (20.5-51.5); MEAN CORPUSCULAR HEMOGLOBIN 32.6 uug (23.8-33.4); MEAN CORPUSCULAR HGB CONC 34 g/dL (32.5-36.3); MEAN CORPUSCULAR VOLUME 94.8 fL (73.0-96.2); MONOCYTES # (AUTO) 0.5 K/uL (0.1-1.30); MONOCYTES % (AUTO) 8.5 % (0.0-11.0); NEUTROPHILS # (AUTO) 2.6 K/uL (1.8-8.9); NEUTROPHILS % (AUTO) 48.4 % (38.5-71.5); PLATELET COUNT (AUTO) 114 K/uL (152-348); RED BLOOD CELL COUNT(AUTO) 4.71 MIL/uL (4.06-5.63); RED CELL DISTRIBUTION WIDTH 13.2 % (12.1-16.2); WHITE BLOOD COUNT (AUTO) 5.3 K/uL (3.6-10.2)
[2022-10-21 06:50] LABS: DIFFERENTIAL COMMENT 1
[2022-10-21 07:07] LABS: ALANINE AMINOTRANSFERASE 40 U/L (16-63); ALBUMIN 2.9 g/dL (3.4-5.0); ASPARTATE AMINOTRANSFERASE 19 U/L (15-37); BILIRUBIN,TOTAL 0.6 mg/dL (0.2-1.0); CALCIUM 8.1 mg/dL (8.5-10.1); CARBON DIOXIDE 19 mmol/L (21-32); CHLORIDE 111 mmol/L (98-107); CREATININE 0.6 mg/dL (0.6-1.3); GLUCOSE 94 mg/dL (74-106); POTASSIUM 3.5 mmol/L (3.5-5.1); SODIUM SERUM 141 mmol/L (136-145); TOTAL PROTEIN, SERUM 6.7 g/dL (6.4-8.2); UREA NITROGEN, BLOOD 19 mg/dL (7-18)
[2022-10-21 07:23] LABS: ALKALINE PHOSPHATASE 122 U/L (50-136)
[2022-10-21 07:28] VITALS: TEMP 97.8
[2022-10-21] MEDS: PROTEIN SUPPLEMENT (PROSTAT) 30 ML LIQUID GT SCH (08:00)
[2022-10-21] MEDS: HYDROGEN PEROXIDE 3% 118 ML BOTTLE TOP SCH ×2 (08:05→21:20)
[2022-10-21] MEDS: IPRATROPIUM BROMIDE 0.5 MG/2.5 ML NEBU NEB SCH ×4 (08:05→19:16)
[2022-10-21] MEDS: ALBUTEROL SULFATE 2.5 MG/3 ML NEBU NEB SCH ×4 (08:05→19:16)
[2022-10-21] MEDS: CULTURELLE CAPSULE GT SCH ×2 (09:00→21:20)
[2022-10-21] MEDS: PHENYTOIN 100 MG/4 ML UDC GT SCH ×2 (09:00→21:20)
[2022-10-21] MEDS: PHENOBARBITAL 64.8 MG TABLET GT SCH ×2 (09:02→21:20)
[2022-10-21] MEDS: CHOLECALCIFEROL 400 UNITS TABLET GT SCH ×2 (09:02→21:20)
[2022-10-21] MEDS: VITAMINS A AND D 5 GM UD PKT TP SCH ×3 (09:03)
[2022-10-21] MEDS: REMEDY ESSENTIAL ZINC PASTE 113 GM TP SCH ×2 (09:03→21:20)
[2022-10-21] MEDS: COD LIVER OIL/ZINC OXIDE OINT 113 GM TUBE TP SCH ×2 (09:03→21:20)
[2022-10-21] MEDS: ACETAMINOPHEN 650 MG/20 ML UDC- SA PATIENTS-PAIN ONLY GT PRN (10:36)
[2022-10-21 20:00] VITALS: TEMP 98.2
[2022-10-21] MEDS: MIRALAX 17 GM POWD.PACK GT SCH (21:20)
[2022-10-22] MEDS: VANCOMYCIN IV 1,000 MG in IV DEXTROSE 5% 250 ML IV SCH (06:00)
[2022-10-22] MEDS: ASCORBIC ACID 500 MG TABLET GT SCH (06:07)
[2022-10-22] MEDS: ARGININE/GLUTAMINE/CALCIUM BMB 1 EACH POWD.PACK GT SCH ×2 (06:07→17:17)
[2022-10-22] MEDS: BACLOFEN 10 MG TABLET GT SCH ×3 (06:07→22:36)
[2022-10-22] MEDS: OMEPRAZOLE 20 MG CAPSULE.DR GT SCH ×2 (06:09→20:00)
[2022-10-22 07:26] VITALS: TEMP 98.9
[2022-10-22] MEDS: HYDROGEN PEROXIDE 3% 118 ML BOTTLE TOP SCH ×2 (08:11→19:01)
[2022-10-22] MEDS: ALBUTEROL SULFATE 2.5 MG/3 ML NEBU NEB SCH ×5 (08:11→19:00)
[2022-10-22] MEDS: IPRATROPIUM BROMIDE 0.5 MG/2.5 ML NEBU NEB SCH ×5 (08:11→19:00)
[2022-10-22] MEDS: PHENYTOIN 100 MG/4 ML UDC GT SCH ×2 (08:45→20:00)
[2022-10-22] MEDS: PROTEIN SUPPLEMENT (PROSTAT) 30 ML LIQUID GT SCH (08:45)
[2022-10-22] MEDS: PHENOBARBITAL 64.8 MG TABLET GT SCH ×2 (08:47→20:00)
[2022-10-22] MEDS: CHOLECALCIFEROL 400 UNITS TABLET GT SCH ×2 (08:48→20:00)
[2022-10-22] MEDS: COD LIVER OIL/ZINC OXIDE OINT 113 GM TUBE TP SCH ×2 (08:49→20:00)
[2022-10-22] MEDS: VITAMINS A AND D 5 GM UD PKT TP SCH ×3 (08:50)
[2022-10-22] MEDS: REMEDY ESSENTIAL ZINC PASTE 113 GM TP SCH ×2 (08:50→20:00)
[2022-10-22] MEDS: CULTURELLE CAPSULE GT SCH ×2 (08:59→20:00)
[2022-10-22] MEDS: IV D5/ 0.9% NACL 1,000 ML IV SCH ×2 (09:24→23:42)
[2022-10-22] MEDS: VANCOMYCIN IV 1,250 MG in IV DEXTROSE 5% 250 ML IV SCH ×2 (10:35→22:36)
[2022-10-22 20:00] VITALS: TEMP 97.3
[2022-10-22] MEDS: MIRALAX 17 GM POWD.PACK GT SCH (20:00)
[2022-10-23] MEDS: ARGININE/GLUTAMINE/CALCIUM BMB 1 EACH POWD.PACK GT SCH ×2 (05:10→17:30)
[2022-10-23] MEDS: ASCORBIC ACID 500 MG TABLET GT SCH (05:11)
[2022-10-23] MEDS: BACLOFEN 10 MG TABLET GT SCH ×3 (05:11→22:55)
[2022-10-23] MEDS: OMEPRAZOLE 20 MG CAPSULE.DR GT SCH ×2 (05:55→20:32)
[2022-10-23] MEDS: IPRATROPIUM BROMIDE 0.5 MG/2.5 ML NEBU NEB SCH ×4 (07:20→19:01)
[2022-10-23] MEDS: HYDROGEN PEROXIDE 3% 118 ML BOTTLE TOP SCH ×2 (07:20→20:35)
[2022-10-23] MEDS: ALBUTEROL SULFATE 2.5 MG/3 ML NEBU NEB SCH ×4 (07:20→19:01)
[2022-10-23 07:21] VITALS: TEMP 97.8
[2022-10-23] MEDS: PROTEIN SUPPLEMENT (PROSTAT) 30 ML LIQUID GT SCH (08:00)
[2022-10-23] MEDS: REMEDY ESSENTIAL ZINC PASTE 113 GM TP SCH ×2 (09:10→20:33)
[2022-10-23] MEDS: PHENOBARBITAL 64.8 MG TABLET GT SCH ×2 (09:10→20:32)
[2022-10-23] MEDS: COD LIVER OIL/ZINC OXIDE OINT 113 GM TUBE TP SCH ×2 (09:10→20:33)
[2022-10-23] MEDS: VITAMINS A AND D 5 GM UD PKT TP SCH ×3 (09:10)
[2022-10-23] MEDS: PHENYTOIN 100 MG/4 ML UDC GT SCH ×2 (09:10→20:32)
[2022-10-23] MEDS: CULTURELLE CAPSULE GT SCH ×2 (09:10→20:32)
[2022-10-23] MEDS: CHOLECALCIFEROL 400 UNITS TABLET GT SCH ×2 (09:10→20:33)
[2022-10-23] MEDS: VANCOMYCIN IV 1,250 MG in IV DEXTROSE 5% 250 ML IV SCH ×2 (09:15→22:53)
[2022-10-23] MEDS: IV D5/ 0.9% NACL 1,000 ML IV SCH (14:00)
[2022-10-23 20:00] VITALS: TEMP 97
[2022-10-23] MEDS: MIRALAX 17 GM POWD.PACK GT SCH (20:32)
[2022-10-24] MEDS: BACLOFEN 10 MG TABLET GT SCH ×3 (05:20→22:00)
[2022-10-24] MEDS: ASCORBIC ACID 500 MG TABLET GT SCH (05:20)
[2022-10-24] MEDS: ARGININE/GLUTAMINE/CALCIUM BMB 1 EACH POWD.PACK GT SCH ×2 (05:20→18:10)
[2022-10-24] MEDS: JEVITY 1.2 1000 ML LIQUID GT PRN (05:21)
[2022-10-24] MEDS: OMEPRAZOLE 20 MG CAPSULE.DR GT SCH ×2 (07:27→20:12)
[2022-10-24] MEDS: ALBUTEROL SULFATE 2.5 MG/3 ML NEBU NEB SCH ×4 (07:35→19:04)
[2022-10-24] MEDS: IPRATROPIUM BROMIDE 0.5 MG/2.5 ML NEBU NEB SCH ×4 (07:35→19:04)
[2022-10-24 07:44] VITALS: TEMP 97
[2022-10-24] MEDS: PROTEIN SUPPLEMENT (PROSTAT) 30 ML LIQUID GT SCH (08:24)
[2022-10-24] MEDS: CULTURELLE CAPSULE GT SCH ×2 (08:24→20:13)
[2022-10-24] MEDS: PHENYTOIN 100 MG/4 ML UDC GT SCH ×2 (08:25→20:12)
[2022-10-24] MEDS: CHOLECALCIFEROL 400 UNITS TABLET GT SCH ×2 (08:27→20:12)
[2022-10-24] MEDS: PHENOBARBITAL 64.8 MG TABLET GT SCH ×2 (08:27→20:12)
[2022-10-24] MEDS: COD LIVER OIL/ZINC OXIDE OINT 113 GM TUBE TP SCH ×2 (08:30→20:13)
[2022-10-24] MEDS: REMEDY ESSENTIAL ZINC PASTE 113 GM TP SCH ×2 (08:30→20:13)
[2022-10-24] MEDS: VITAMINS A AND D 5 GM UD PKT TP SCH ×3 (08:31)
[2022-10-24] MEDS: HYDROGEN PEROXIDE 3% 118 ML BOTTLE TOP SCH ×2 (08:35→20:51)
[2022-10-24 09:43] LABS: BASOPHILS # (AUTO) 0.1 K/UL (0.0-0.2); BASOPHILS % (AUTO) 2.1 % (0.0-2.0); DIFFERENTIAL COMMENT 1; EOSINOPHILS # (AUTO) 0.3 K/uL (0.0-0.7); EOSINOPHILS % (AUTO) 4.4 % (0.0-7.0); HEMATOCRIT 45.7 % (36.7-47.1); HEMOGLOBIN 15.7 g/dL (12.5-16.3); LYMPHOCYTES # (AUTO) 1.5 K/uL (0.8-4.8); LYMPHOCYTES % (AUTO) 23.7 % (20.5-51.5); MEAN CORPUSCULAR HEMOGLOBIN 32.5 uug (23.8-33.4); MEAN CORPUSCULAR HGB CONC 34 g/dL (32.5-36.3); MEAN CORPUSCULAR VOLUME 94.6 fL (73.0-96.2); MONOCYTES # (AUTO) 0.8 K/uL (0.1-1.30); MONOCYTES % (AUTO) 12.6 % (0.0-11.0); NEUTROPHILS # (AUTO) 3.7 K/uL (1.8-8.9); NEUTROPHILS % (AUTO) 57.2 % (38.5-71.5); PLATELET COUNT (AUTO) 122 K/uL (152-348); RED BLOOD CELL COUNT(AUTO) 4.83 MIL/uL (4.06-5.63); RED CELL DISTRIBUTION WIDTH 13.3 % (12.1-16.2); WHITE BLOOD COUNT (AUTO) 6.4 K/uL (3.6-10.2)
[2022-10-24 09:56] LABS: CREATININE 0.7 mg/dL (0.6-1.3); VANCOMYCIN,TROUGH 20.6 ug/mL (12.0-20.0)
[2022-10-24] MEDS: VANCOMYCIN IV 1,250 MG in IV DEXTROSE 5% 250 ML IV SCH (10:00)
[2022-10-24] MEDS: MIRALAX 17 GM POWD.PACK GT SCH (20:12)
[2022-10-24 21:32] VITALS: TEMP 97.8
[2022-10-24] MEDS: VANCOMYCIN IV 1,000 MG in IV DEXTROSE 5% 250 ML IV SCH (22:00)
[2022-10-25] MEDS: ARGININE/GLUTAMINE/CALCIUM BMB 1 EACH POWD.PACK GT SCH ×2 (05:26→18:06)
[2022-10-25] MEDS: ASCORBIC ACID 500 MG TABLET GT SCH (05:26)
[2022-10-25] MEDS: BACLOFEN 10 MG TABLET GT SCH ×3 (05:26→21:56)
[2022-10-25] MEDS: OMEPRAZOLE 20 MG CAPSULE.DR GT SCH ×2 (06:05→20:26)
[2022-10-25] MEDS: IPRATROPIUM BROMIDE 0.5 MG/2.5 ML NEBU NEB SCH ×4 (07:26→19:16)
[2022-10-25] MEDS: HYDROGEN PEROXIDE 3% 118 ML BOTTLE TOP SCH ×2 (07:26→19:16)
[2022-10-25] MEDS: ALBUTEROL SULFATE 2.5 MG/3 ML NEBU NEB SCH ×4 (07:26→19:16)
[2022-10-25 07:47] VITALS: TEMP 97.7
[2022-10-25] MEDS: PROTEIN SUPPLEMENT (PROSTAT) 30 ML LIQUID GT SCH (08:00)
[2022-10-25] MEDS: CULTURELLE CAPSULE GT SCH ×2 (09:24→20:21)
[2022-10-25] MEDS: REMEDY ESSENTIAL ZINC PASTE 113 GM TP SCH ×2 (09:25→20:27)
[2022-10-25] MEDS: CHOLECALCIFEROL 400 UNITS TABLET GT SCH ×2 (09:25→20:27)
[2022-10-25] MEDS: PHENOBARBITAL 64.8 MG TABLET GT SCH ×2 (09:25→20:26)
[2022-10-25] MEDS: VITAMINS A AND D 5 GM UD PKT TP SCH ×3 (09:25)
[2022-10-25] MEDS: PHENYTOIN 100 MG/4 ML UDC GT SCH ×2 (09:25→20:25)
[2022-10-25] MEDS: COD LIVER OIL/ZINC OXIDE OINT 113 GM TUBE TP SCH ×2 (09:25→20:27)
[2022-10-25] MEDS: VANCOMYCIN IV 1,000 MG in IV DEXTROSE 5% 250 ML IV SCH ×2 (09:28→21:56)
[2022-10-25 20:00] VITALS: TEMP 98
[2022-10-25] MEDS: MIRALAX 17 GM POWD.PACK GT SCH (20:26)
[2022-10-26] MEDS: BACLOFEN 10 MG TABLET GT SCH ×3 (05:17→21:53)
[2022-10-26] MEDS: OMEPRAZOLE 20 MG CAPSULE.DR GT SCH ×2 (05:17→20:32)
[2022-10-26] MEDS: ARGININE/GLUTAMINE/CALCIUM BMB 1 EACH POWD.PACK GT SCH ×2 (05:17→17:42)
[2022-10-26] MEDS: ASCORBIC ACID 500 MG TABLET GT SCH (05:17)
[2022-10-26] MEDS: ALBUTEROL SULFATE 2.5 MG/3 ML NEBU NEB SCH ×4 (07:09→19:12)
[2022-10-26] MEDS: IPRATROPIUM BROMIDE 0.5 MG/2.5 ML NEBU NEB SCH ×4 (07:09→19:12)
[2022-10-26] MEDS: HYDROGEN PEROXIDE 3% 118 ML BOTTLE TOP SCH ×2 (07:09→19:12)
[2022-10-26 08:00] VITALS: TEMP 98.1
[2022-10-26] MEDS: PROTEIN SUPPLEMENT (PROSTAT) 30 ML LIQUID GT SCH (08:00)
[2022-10-26] MEDS: CULTURELLE CAPSULE GT SCH ×2 (09:04→20:30)
[2022-10-26] MEDS: CHOLECALCIFEROL 400 UNITS TABLET GT SCH ×2 (09:04→20:33)
[2022-10-26] MEDS: PHENYTOIN 100 MG/4 ML UDC GT SCH ×2 (09:04→20:31)
[2022-10-26] MEDS: PHENOBARBITAL 64.8 MG TABLET GT SCH ×2 (09:04→20:31)
[2022-10-26] MEDS: COD LIVER OIL/ZINC OXIDE OINT 113 GM TUBE TP SCH ×2 (09:05→20:33)
[2022-10-26] MEDS: VITAMINS A AND D 5 GM UD PKT TP SCH ×3 (09:06)
[2022-10-26] MEDS: REMEDY ESSENTIAL ZINC PASTE 113 GM TP SCH ×2 (09:06→20:33)
[2022-10-26 09:44] LABS: CREATININE 0.7 mg/dL (0.6-1.3); VANCOMYCIN,TROUGH 15.9 ug/mL (12.0-20.0)
[2022-10-26] MEDS: VANCOMYCIN IV 1,000 MG in IV DEXTROSE 5% 250 ML IV SCH ×2 (11:00→21:53)
[2022-10-26 20:00] VITALS: TEMP 98.1
[2022-10-26] MEDS: MIRALAX 17 GM POWD.PACK GT SCH (20:31)
[2022-10-27] MEDS: ASCORBIC ACID 500 MG TABLET GT SCH (05:02)
[2022-10-27] MEDS: ARGININE/GLUTAMINE/CALCIUM BMB 1 EACH POWD.PACK GT SCH ×2 (05:02→17:00)
[2022-10-27] MEDS: OMEPRAZOLE 20 MG CAPSULE.DR GT SCH ×2 (05:02→20:58)
[2022-10-27] MEDS: BACLOFEN 10 MG TABLET GT SCH ×3 (05:02→21:01)
[2022-10-27] MEDS: ALBUTEROL SULFATE 2.5 MG/3 ML NEBU NEB SCH ×4 (07:41→19:17)
[2022-10-27] MEDS: IPRATROPIUM BROMIDE 0.5 MG/2.5 ML NEBU NEB SCH ×4 (07:41→19:17)
[2022-10-27] MEDS: HYDROGEN PEROXIDE 3% 118 ML BOTTLE TOP SCH ×2 (07:41→19:17)
[2022-10-27] MEDS: PROTEIN SUPPLEMENT (PROSTAT) 30 ML LIQUID GT SCH (08:34)
[2022-10-27] MEDS: CULTURELLE CAPSULE GT SCH ×2 (08:36→20:58)
[2022-10-27] MEDS: COD LIVER OIL/ZINC OXIDE OINT 113 GM TUBE TP SCH ×2 (08:39→21:01)
[2022-10-27] MEDS: PHENOBARBITAL 64.8 MG TABLET GT SCH ×2 (08:39→20:58)
[2022-10-27] MEDS: REMEDY ESSENTIAL ZINC PASTE 113 GM TP SCH ×2 (08:39→21:01)
[2022-10-27] MEDS: CHOLECALCIFEROL 400 UNITS TABLET GT SCH ×2 (08:39→20:59)
[2022-10-27] MEDS: PHENYTOIN 100 MG/4 ML UDC GT SCH ×2 (08:39→20:58)
[2022-10-27] MEDS: VITAMINS A AND D 5 GM UD PKT TP SCH ×3 (08:40)
[2022-10-27] MEDS: VANCOMYCIN IV 1,000 MG in IV DEXTROSE 5% 250 ML IV SCH ×2 (10:00→22:20)
[2022-10-27] MEDS: JEVITY 1.2 1000 ML LIQUID GT PRN (17:00)
[2022-10-27 20:00] VITALS: TEMP 98
[2022-10-27] MEDS: MIRALAX 17 GM POWD.PACK GT SCH (20:58)
[2022-10-28] MEDS ORDERED: DIATR MEGLU/DIATRIZOATE SODIUM 30 ML BOTTLE ONE (05:27)
[2022-10-28] MEDS: ASCORBIC ACID 500 MG TABLET GT SCH (06:00)
[2022-10-28] MEDS: BACLOFEN 10 MG TABLET GT SCH ×3 (06:00→21:11)
[2022-10-28] MEDS: ARGININE/GLUTAMINE/CALCIUM BMB 1 EACH POWD.PACK GT SCH ×2 (06:00→18:26)
[2022-10-28] MEDS: OMEPRAZOLE 20 MG CAPSULE.DR GT SCH ×2 (06:30→21:11)
[2022-10-28] MEDS: ALBUTEROL SULFATE 2.5 MG/3 ML NEBU NEB SCH ×4 (07:19→19:10)
[2022-10-28] MEDS: IPRATROPIUM BROMIDE 0.5 MG/2.5 ML NEBU NEB SCH ×4 (07:19→19:09)
[2022-10-28 07:29] VITALS: TEMP 97.4
[2022-10-28] MEDS: PROTEIN SUPPLEMENT (PROSTAT) 30 ML LIQUID GT SCH (08:00)
[2022-10-28] MEDS: HYDROGEN PEROXIDE 3% 118 ML BOTTLE TOP SCH ×2 (08:05→19:10)
[2022-10-28] MEDS: CULTURELLE CAPSULE GT SCH ×2 (09:04→21:11)
[2022-10-28] MEDS: PHENYTOIN 100 MG/4 ML UDC GT SCH ×2 (09:04→21:11)
[2022-10-28] MEDS: PHENOBARBITAL 64.8 MG TABLET GT SCH ×2 (09:05→21:11)
[2022-10-28] MEDS: CHOLECALCIFEROL 400 UNITS TABLET GT SCH ×2 (09:06→21:11)
[2022-10-28] MEDS: COD LIVER OIL/ZINC OXIDE OINT 113 GM TUBE TP SCH ×2 (10:00→21:11)
[2022-10-28] MEDS: REMEDY ESSENTIAL ZINC PASTE 113 GM TP SCH ×2 (10:00→21:11)
[2022-10-28] MEDS: VITAMINS A AND D 5 GM UD PKT TP SCH ×3 (10:00)
[2022-10-28] MEDS: VANCOMYCIN IV 1,000 MG in IV DEXTROSE 5% 250 ML IV SCH ×2 (10:00→22:22)
[2022-10-28 16:00] VITALS: BP 155/81; TEMP 98.4; O2SAT 96
[2022-10-28 20:00] VITALS: TEMP 98
[2022-10-28] MEDS: MIRALAX 17 GM POWD.PACK GT SCH (21:11)
[2022-10-29] MEDS: BACLOFEN 10 MG TABLET GT SCH ×3 (05:34→21:49)
[2022-10-29] MEDS: OMEPRAZOLE 20 MG CAPSULE.DR GT SCH ×2 (05:34→20:08)
[2022-10-29] MEDS: ASCORBIC ACID 500 MG TABLET GT SCH (05:34)
[2022-10-29] MEDS: ARGININE/GLUTAMINE/CALCIUM BMB 1 EACH POWD.PACK GT SCH ×2 (05:34→18:12)
[2022-10-29] MEDS: IPRATROPIUM BROMIDE 0.5 MG/2.5 ML NEBU NEB SCH ×4 (07:09→19:36)
[2022-10-29] MEDS: HYDROGEN PEROXIDE 3% 118 ML BOTTLE TOP SCH ×2 (07:10→19:36)
[2022-10-29] MEDS: ALBUTEROL SULFATE 2.5 MG/3 ML NEBU NEB SCH ×4 (07:10→19:36)
[2022-10-29 07:22] VITALS: TEMP 98.1
[2022-10-29] MEDS: PROTEIN SUPPLEMENT (PROSTAT) 30 ML LIQUID GT SCH (08:00)
[2022-10-29] MEDS: VITAMINS A AND D 5 GM UD PKT TP SCH ×3 (09:54→09:55)
[2022-10-29] MEDS: PHENOBARBITAL 64.8 MG TABLET GT SCH ×2 (09:54→20:08)
[2022-10-29] MEDS: CHOLECALCIFEROL 400 UNITS TABLET GT SCH ×2 (09:54→20:08)
[2022-10-29] MEDS: CULTURELLE CAPSULE GT SCH ×2 (09:54→20:08)
[2022-10-29] MEDS: COD LIVER OIL/ZINC OXIDE OINT 113 GM TUBE TP SCH ×2 (09:54→20:09)
[2022-10-29] MEDS: PHENYTOIN 100 MG/4 ML UDC GT SCH ×2 (09:54→20:08)
[2022-10-29] MEDS: REMEDY ESSENTIAL ZINC PASTE 113 GM TP SCH ×2 (09:54→20:09)
[2022-10-29] MEDS: VANCOMYCIN IV 1,000 MG in IV DEXTROSE 5% 250 ML IV SCH ×2 (09:55→21:49)
[2022-10-29] MEDS: JEVITY 1.2 1000 ML LIQUID GT PRN ×2 (18:12→18:14)
[2022-10-29 19:59] VITALS: TEMP 98.1
[2022-10-29] MEDS: MIRALAX 17 GM POWD.PACK GT SCH (20:08)
[2022-10-30] MEDS: ARGININE/GLUTAMINE/CALCIUM BMB 1 EACH POWD.PACK GT SCH ×2 (05:05→18:52)
[2022-10-30] MEDS: ASCORBIC ACID 500 MG TABLET GT SCH (05:05)
[2022-10-30] MEDS: BACLOFEN 10 MG TABLET GT SCH ×3 (05:05→22:37)
[2022-10-30] MEDS: OMEPRAZOLE 20 MG CAPSULE.DR GT SCH ×2 (05:56→20:06)
[2022-10-30] MEDS: ALBUTEROL SULFATE 2.5 MG/3 ML NEBU NEB SCH ×4 (07:05→19:11)
[2022-10-30] MEDS: IPRATROPIUM BROMIDE 0.5 MG/2.5 ML NEBU NEB SCH ×4 (07:05→19:11)
[2022-10-30 08:00] VITALS: TEMP 97.5
[2022-10-30] MEDS: PROTEIN SUPPLEMENT (PROSTAT) 30 ML LIQUID GT SCH (08:00)
[2022-10-30] MEDS: HYDROGEN PEROXIDE 3% 118 ML BOTTLE TOP SCH ×2 (09:00→19:11)
[2022-10-30] MEDS: CULTURELLE CAPSULE GT SCH ×2 (09:32→20:06)
[2022-10-30] MEDS: PHENYTOIN 100 MG/4 ML UDC GT SCH ×2 (09:32→20:06)
[2022-10-30] MEDS: PHENOBARBITAL 64.8 MG TABLET GT SCH ×2 (09:33→20:06)
[2022-10-30] MEDS: CHOLECALCIFEROL 400 UNITS TABLET GT SCH ×2 (09:34→20:06)
[2022-10-30] MEDS: REMEDY ESSENTIAL ZINC PASTE 113 GM TP SCH ×2 (09:34→20:08)
[2022-10-30] MEDS: VITAMINS A AND D 5 GM UD PKT TP SCH ×3 (09:34→09:36)
[2022-10-30] MEDS: COD LIVER OIL/ZINC OXIDE OINT 113 GM TUBE TP SCH ×2 (09:34→20:06)
[2022-10-30] MEDS: VANCOMYCIN IV 1,000 MG in IV DEXTROSE 5% 250 ML IV SCH (10:23)
[2022-10-30 19:59] VITALS: TEMP 98.1
[2022-10-30] MEDS: MIRALAX 17 GM POWD.PACK GT SCH (20:06)
[2022-10-31] MEDS: ARGININE/GLUTAMINE/CALCIUM BMB 1 EACH POWD.PACK GT SCH ×2 (06:00→18:51)
[2022-10-31] MEDS: BACLOFEN 10 MG TABLET GT SCH ×3 (06:00→22:00)
[2022-10-31] MEDS: ASCORBIC ACID 500 MG TABLET GT SCH (06:00)
[2022-10-31] MEDS: OMEPRAZOLE 20 MG CAPSULE.DR GT SCH ×2 (07:03→20:00)
[2022-10-31 07:50] VITALS: TEMP 98.8
[2022-10-31] MEDS: PROTEIN SUPPLEMENT (PROSTAT) 30 ML LIQUID GT SCH (08:00)
[2022-10-31] MEDS: IPRATROPIUM BROMIDE 0.5 MG/2.5 ML NEBU NEB SCH ×4 (08:04→19:10)
[2022-10-31] MEDS: ALBUTEROL SULFATE 2.5 MG/3 ML NEBU NEB SCH ×4 (08:05→19:10)
[2022-10-31] MEDS: HYDROGEN PEROXIDE 3% 118 ML BOTTLE TOP SCH ×2 (09:00→19:10)
[2022-10-31] MEDS: PHENYTOIN 100 MG/4 ML UDC GT SCH ×2 (09:02→20:00)
[2022-10-31] MEDS: CULTURELLE CAPSULE GT SCH ×2 (09:02→20:00)
[2022-10-31] MEDS: PHENOBARBITAL 64.8 MG TABLET GT SCH ×2 (09:03→20:00)
[2022-10-31] MEDS: COD LIVER OIL/ZINC OXIDE OINT 113 GM TUBE TP SCH ×2 (09:04→20:00)
[2022-10-31] MEDS: REMEDY ESSENTIAL ZINC PASTE 113 GM TP SCH ×2 (09:04→20:00)
[2022-10-31] MEDS: VITAMINS A AND D 5 GM UD PKT TP SCH ×3 (09:04)
[2022-10-31] MEDS: CHOLECALCIFEROL 400 UNITS TABLET GT SCH ×2 (09:04→20:00)
[2022-10-31 20:00] VITALS: TEMP 98.1
[2022-10-31] MEDS: MIRALAX 17 GM POWD.PACK GT SCH (20:00)
[2022-11-01] MEDS: BACLOFEN 10 MG TABLET GT SCH ×3 (05:17→21:06)
[2022-11-01] MEDS: ARGININE/GLUTAMINE/CALCIUM BMB 1 EACH POWD.PACK GT SCH ×2 (05:17→17:57)
[2022-11-01] MEDS: ASCORBIC ACID 500 MG TABLET GT SCH (05:17)
[2022-11-01] MEDS: OMEPRAZOLE 20 MG CAPSULE.DR GT SCH ×2 (06:00→20:49)
[2022-11-01] MEDS: ALBUTEROL SULFATE 2.5 MG/3 ML NEBU NEB SCH ×4 (07:29→19:13)
[2022-11-01] MEDS: IPRATROPIUM BROMIDE 0.5 MG/2.5 ML NEBU NEB SCH ×4 (07:29→19:13)
[2022-11-01] MEDS: HYDROGEN PEROXIDE 3% 118 ML BOTTLE TOP SCH ×2 (07:30→19:13)
[2022-11-01 07:44] VITALS: TEMP 97
[2022-11-01] MEDS: PROTEIN SUPPLEMENT (PROSTAT) 30 ML LIQUID GT SCH (08:38)
[2022-11-01] MEDS: PHENYTOIN 100 MG/4 ML UDC GT SCH ×2 (08:41→20:40)
[2022-11-01] MEDS: PHENOBARBITAL 64.8 MG TABLET GT SCH ×2 (08:42→20:41)
[2022-11-01] MEDS: CHOLECALCIFEROL 400 UNITS TABLET GT SCH ×2 (08:42→21:06)
[2022-11-01] MEDS: REMEDY ESSENTIAL ZINC PASTE 113 GM TP SCH ×2 (08:43→21:06)
[2022-11-01] MEDS: VITAMINS A AND D 5 GM UD PKT TP SCH ×3 (08:43)
[2022-11-01] MEDS: COD LIVER OIL/ZINC OXIDE OINT 113 GM TUBE TP SCH ×2 (08:43→21:06)
[2022-11-01] MEDS: CULTURELLE CAPSULE GT SCH ×2 (08:49→20:40)
[2022-11-01] MEDS: JEVITY 1.2 1000 ML LIQUID GT PRN (18:00)
[2022-11-01 20:00] VITALS: TEMP 98.1
[2022-11-01] MEDS: MIRALAX 17 GM POWD.PACK GT SCH (20:49)
[2022-11-02] MEDS: ASCORBIC ACID 500 MG TABLET GT SCH (05:05)
[2022-11-02] MEDS: BACLOFEN 10 MG TABLET GT SCH ×3 (05:05→21:13)
[2022-11-02] MEDS: ARGININE/GLUTAMINE/CALCIUM BMB 1 EACH POWD.PACK GT SCH ×2 (05:05→18:17)
[2022-11-02] MEDS: OMEPRAZOLE 20 MG CAPSULE.DR GT SCH ×2 (05:05→21:10)
[2022-11-02] MEDS: HYDROGEN PEROXIDE 3% 118 ML BOTTLE TOP SCH ×2 (07:11→19:08)
[2022-11-02] MEDS: ALBUTEROL SULFATE 2.5 MG/3 ML NEBU NEB SCH ×4 (07:11→19:08)
[2022-11-02] MEDS: IPRATROPIUM BROMIDE 0.5 MG/2.5 ML NEBU NEB SCH ×4 (07:11→19:08)
[2022-11-02 07:25] VITALS: TEMP 97.7
[2022-11-02] MEDS: PROTEIN SUPPLEMENT (PROSTAT) 30 ML LIQUID GT SCH (08:00)
[2022-11-02] MEDS: PHENYTOIN 100 MG/4 ML UDC GT SCH ×2 (09:26→21:08)
[2022-11-02] MEDS: CULTURELLE CAPSULE GT SCH ×2 (09:26→21:05)
[2022-11-02] MEDS: PHENOBARBITAL 64.8 MG TABLET GT SCH ×2 (09:27→21:08)
[2022-11-02] MEDS: REMEDY ESSENTIAL ZINC PASTE 113 GM TP SCH ×2 (09:29→21:13)
[2022-11-02] MEDS: VITAMINS A AND D 5 GM UD PKT TP SCH ×3 (09:29)
[2022-11-02] MEDS: CHOLECALCIFEROL 400 UNITS TABLET GT SCH ×2 (09:29→21:11)
[2022-11-02] MEDS: COD LIVER OIL/ZINC OXIDE OINT 113 GM TUBE TP SCH ×2 (09:29→21:13)
[2022-11-02] MEDS: JEVITY 1.2 1000 ML LIQUID GT PRN (16:27)
[2022-11-02 20:00] VITALS: TEMP 97.8
[2022-11-02] MEDS: MIRALAX 17 GM POWD.PACK GT SCH (21:09)
[2022-11-02] MEDS: ACETAMINOPHEN 650 MG/20 ML UDC- SA PATIENTS-PAIN ONLY GT PRN (22:00)
[2022-11-03] MEDS: BACLOFEN 10 MG TABLET GT SCH ×3 (05:03→21:02)
[2022-11-03] MEDS: OMEPRAZOLE 20 MG CAPSULE.DR GT SCH ×2 (05:03→21:02)
[2022-11-03] MEDS: ARGININE/GLUTAMINE/CALCIUM BMB 1 EACH POWD.PACK GT SCH ×2 (05:03→17:45)
[2022-11-03] MEDS: ASCORBIC ACID 500 MG TABLET GT SCH (05:03)
[2022-11-03] MEDS: ALBUTEROL SULFATE 2.5 MG/3 ML NEBU NEB SCH ×4 (07:08→19:08)
[2022-11-03] MEDS: IPRATROPIUM BROMIDE 0.5 MG/2.5 ML NEBU NEB SCH ×4 (07:08→19:08)
[2022-11-03 07:19] VITALS: TEMP 97.9
[2022-11-03] MEDS: HYDROGEN PEROXIDE 3% 118 ML BOTTLE TOP SCH ×2 (08:17→21:16)
[2022-11-03] MEDS: PROTEIN SUPPLEMENT (PROSTAT) 30 ML LIQUID GT SCH (08:43)
[2022-11-03] MEDS: CULTURELLE CAPSULE GT SCH ×2 (08:43→21:02)
[2022-11-03] MEDS: PHENYTOIN 100 MG/4 ML UDC GT SCH ×2 (08:44→21:02)
[2022-11-03] MEDS: CHOLECALCIFEROL 400 UNITS TABLET GT SCH ×2 (08:48→21:02)
[2022-11-03] MEDS: PHENOBARBITAL 64.8 MG TABLET GT SCH ×2 (08:48→21:02)
[2022-11-03] MEDS: COD LIVER OIL/ZINC OXIDE OINT 113 GM TUBE TP SCH ×2 (08:49→21:02)
[2022-11-03] MEDS: VITAMINS A AND D 5 GM UD PKT TP SCH ×3 (08:49)
[2022-11-03] MEDS: REMEDY ESSENTIAL ZINC PASTE 113 GM TP SCH ×2 (08:49→21:02)
[2022-11-03] MEDS: JEVITY 1.2 1000 ML LIQUID GT PRN (15:03)
[2022-11-03 20:33] VITALS: TEMP 97.8
[2022-11-03] MEDS: MIRALAX 17 GM POWD.PACK GT SCH (21:02)
[2022-11-04] MEDS: ASCORBIC ACID 500 MG TABLET GT SCH (05:45)
[2022-11-04] MEDS: BACLOFEN 10 MG TABLET GT SCH ×3 (05:45→22:23)
[2022-11-04] MEDS: ARGININE/GLUTAMINE/CALCIUM BMB 1 EACH POWD.PACK GT SCH ×2 (05:45→17:27)
[2022-11-04] MEDS: OMEPRAZOLE 20 MG CAPSULE.DR GT SCH ×2 (05:45→20:41)
[2022-11-04] MEDS: HYDROGEN PEROXIDE 3% 118 ML BOTTLE TOP SCH ×2 (07:43→19:03)
[2022-11-04] MEDS: ALBUTEROL SULFATE 2.5 MG/3 ML NEBU NEB SCH ×4 (07:43→19:03)
[2022-11-04] MEDS: IPRATROPIUM BROMIDE 0.5 MG/2.5 ML NEBU NEB SCH ×4 (07:43→19:03)
[2022-11-04 08:00] VITALS: TEMP 97.7
[2022-11-04] MEDS: PROTEIN SUPPLEMENT (PROSTAT) 30 ML LIQUID GT SCH (08:00)
[2022-11-04] MEDS: REMEDY ESSENTIAL ZINC PASTE 113 GM TP SCH ×2 (09:12→20:42)
[2022-11-04] MEDS: PHENOBARBITAL 64.8 MG TABLET GT SCH ×2 (09:12→20:41)
[2022-11-04] MEDS: VITAMINS A AND D 5 GM UD PKT TP SCH ×3 (09:12)
[2022-11-04] MEDS: COD LIVER OIL/ZINC OXIDE OINT 113 GM TUBE TP SCH ×2 (09:12→20:42)
[2022-11-04] MEDS: CHOLECALCIFEROL 400 UNITS TABLET GT SCH ×2 (09:12→20:42)
[2022-11-04] MEDS: PHENYTOIN 100 MG/4 ML UDC GT SCH ×2 (09:12→20:41)
[2022-11-04] MEDS: CULTURELLE CAPSULE GT SCH ×2 (09:12→20:41)
[2022-11-04] MEDS: JEVITY 1.2 1000 ML LIQUID GT PRN (13:52)
[2022-11-04 19:54] VITALS: TEMP 98.6
[2022-11-04] MEDS: MIRALAX 17 GM POWD.PACK GT SCH (20:41)
[2022-11-05] MEDS: ARGININE/GLUTAMINE/CALCIUM BMB 1 EACH POWD.PACK GT SCH ×2 (05:49→17:23)
[2022-11-05] MEDS: OMEPRAZOLE 20 MG CAPSULE.DR GT SCH ×2 (05:49→20:22)
[2022-11-05] MEDS: ASCORBIC ACID 500 MG TABLET GT SCH (05:49)
[2022-11-05] MEDS: BACLOFEN 10 MG TABLET GT SCH ×3 (05:49→22:44)
[2022-11-05] MEDS: JEVITY 1.2 1000 ML LIQUID GT PRN (06:43)
[2022-11-05 07:20] VITALS: TEMP 97.8
[2022-11-05] MEDS: PROTEIN SUPPLEMENT (PROSTAT) 30 ML LIQUID GT SCH (08:07)
[2022-11-05] MEDS: CULTURELLE CAPSULE GT SCH ×2 (08:10→20:22)
[2022-11-05] MEDS: PHENOBARBITAL 64.8 MG TABLET GT SCH ×2 (08:11→20:22)
[2022-11-05] MEDS: PHENYTOIN 100 MG/4 ML UDC GT SCH ×2 (08:11→20:19)
[2022-11-05] MEDS: REMEDY ESSENTIAL ZINC PASTE 113 GM TP SCH ×2 (08:11→20:22)
[2022-11-05] MEDS: COD LIVER OIL/ZINC OXIDE OINT 113 GM TUBE TP SCH ×2 (08:11→20:22)
[2022-11-05] MEDS: CHOLECALCIFEROL 400 UNITS TABLET GT SCH ×2 (08:11→20:22)
[2022-11-05] MEDS: VITAMINS A AND D 5 GM UD PKT TP SCH ×3 (08:11)
[2022-11-05] MEDS: ALBUTEROL SULFATE 2.5 MG/3 ML NEBU NEB SCH ×4 (08:18→19:14)
[2022-11-05] MEDS: IPRATROPIUM BROMIDE 0.5 MG/2.5 ML NEBU NEB SCH ×4 (08:18→19:14)
[2022-11-05] MEDS: HYDROGEN PEROXIDE 3% 118 ML BOTTLE TOP SCH ×2 (09:05→19:14)
[2022-11-05 19:46] VITALS: TEMP 97.7
[2022-11-05] MEDS: MIRALAX 17 GM POWD.PACK GT SCH (20:18)
[2022-11-06] MEDS: BACLOFEN 10 MG TABLET GT SCH ×3 (06:05→22:03)
[2022-11-06] MEDS: ARGININE/GLUTAMINE/CALCIUM BMB 1 EACH POWD.PACK GT SCH ×2 (06:05→17:51)
[2022-11-06] MEDS: OMEPRAZOLE 20 MG CAPSULE.DR GT SCH ×2 (06:05→21:00)
[2022-11-06] MEDS: ASCORBIC ACID 500 MG TABLET GT SCH (06:05)
[2022-11-06 07:23] VITALS: TEMP 97.7
[2022-11-06] MEDS: IPRATROPIUM BROMIDE 0.5 MG/2.5 ML NEBU NEB SCH ×4 (07:26→19:10)
[2022-11-06] MEDS: ALBUTEROL SULFATE 2.5 MG/3 ML NEBU NEB SCH ×4 (07:26→19:11)
[2022-11-06] MEDS: HYDROGEN PEROXIDE 3% 118 ML BOTTLE TOP SCH ×2 (07:26→21:37)
[2022-11-06] MEDS: PROTEIN SUPPLEMENT (PROSTAT) 30 ML LIQUID GT SCH (08:51)
[2022-11-06] MEDS: PHENYTOIN 100 MG/4 ML UDC GT SCH ×2 (08:52→21:00)
[2022-11-06] MEDS: CULTURELLE CAPSULE GT SCH ×2 (08:52→21:00)
[2022-11-06] MEDS: PHENOBARBITAL 64.8 MG TABLET GT SCH ×2 (08:54→21:00)
[2022-11-06] MEDS: CHOLECALCIFEROL 400 UNITS TABLET GT SCH ×2 (08:54→21:00)
[2022-11-06] MEDS: COD LIVER OIL/ZINC OXIDE OINT 113 GM TUBE TP SCH ×2 (08:55→21:00)
[2022-11-06] MEDS: VITAMINS A AND D 5 GM UD PKT TP SCH ×3 (09:00)
[2022-11-06] MEDS: REMEDY ESSENTIAL ZINC PASTE 113 GM TP SCH ×2 (09:00→21:00)
[2022-11-06 20:00] VITALS: TEMP 97.6
[2022-11-06] MEDS: MIRALAX 17 GM POWD.PACK GT SCH (21:00)
[2022-11-07] MEDS: ASCORBIC ACID 500 MG TABLET GT SCH (05:44)
[2022-11-07] MEDS: BACLOFEN 10 MG TABLET GT SCH ×3 (05:44→22:00)
[2022-11-07] MEDS: ARGININE/GLUTAMINE/CALCIUM BMB 1 EACH POWD.PACK GT SCH ×2 (05:44→18:21)
[2022-11-07] MEDS: OMEPRAZOLE 20 MG CAPSULE.DR GT SCH ×2 (05:44→20:09)
[2022-11-07] MEDS: JEVITY 1.2 1000 ML LIQUID GT PRN (05:45)
[2022-11-07 07:30] VITALS: TEMP 98.3
[2022-11-07] MEDS: ALBUTEROL SULFATE 2.5 MG/3 ML NEBU NEB SCH ×4 (07:30→19:10)
[2022-11-07] MEDS: HYDROGEN PEROXIDE 3% 118 ML BOTTLE TOP SCH ×2 (07:30→19:10)
[2022-11-07] MEDS: IPRATROPIUM BROMIDE 0.5 MG/2.5 ML NEBU NEB SCH ×4 (07:30→19:10)
[2022-11-07] MEDS: PROTEIN SUPPLEMENT (PROSTAT) 30 ML LIQUID GT SCH (08:52)
[2022-11-07] MEDS: CULTURELLE CAPSULE GT SCH ×2 (08:56→20:09)
[2022-11-07] MEDS: PHENYTOIN 100 MG/4 ML UDC GT SCH ×2 (08:57→20:09)
[2022-11-07] MEDS: CHOLECALCIFEROL 400 UNITS TABLET GT SCH ×2 (08:59→20:09)
[2022-11-07] MEDS: COD LIVER OIL/ZINC OXIDE OINT 113 GM TUBE TP SCH ×2 (08:59→20:09)
[2022-11-07] MEDS: PHENOBARBITAL 64.8 MG TABLET GT SCH ×2 (08:59→20:09)
[2022-11-07] MEDS: REMEDY ESSENTIAL ZINC PASTE 113 GM TP SCH ×2 (09:00→20:09)
[2022-11-07] MEDS: VITAMINS A AND D 5 GM UD PKT TP SCH ×3 (09:00)
[2022-11-07 20:00] VITALS: TEMP 97
[2022-11-07] MEDS: MIRALAX 17 GM POWD.PACK GT SCH (20:09)
[2022-11-08] MEDS: JEVITY 1.2 1000 ML LIQUID GT PRN (05:08)
[2022-11-08] MEDS: ASCORBIC ACID 500 MG TABLET GT SCH (05:08)
[2022-11-08] MEDS: ARGININE/GLUTAMINE/CALCIUM BMB 1 EACH POWD.PACK GT SCH ×2 (05:08→18:32)
[2022-11-08] MEDS: BACLOFEN 10 MG TABLET GT SCH ×3 (05:08→21:14)
[2022-11-08 07:56] VITALS: TEMP 97.5
[2022-11-08] MEDS: PROTEIN SUPPLEMENT (PROSTAT) 30 ML LIQUID GT SCH (08:15)
[2022-11-08] MEDS: CULTURELLE CAPSULE GT SCH ×2 (08:16→21:20)
[2022-11-08] MEDS: PHENYTOIN 100 MG/4 ML UDC GT SCH ×2 (08:17→21:00)
[2022-11-08] MEDS: PHENOBARBITAL 64.8 MG TABLET GT SCH ×2 (08:18→21:00)
[2022-11-08] MEDS: CHOLECALCIFEROL 400 UNITS TABLET GT SCH ×2 (08:18→21:00)
[2022-11-08] MEDS: ALBUTEROL SULFATE 2.5 MG/3 ML NEBU NEB SCH ×4 (08:20→19:18)
[2022-11-08] MEDS: IPRATROPIUM BROMIDE 0.5 MG/2.5 ML NEBU NEB SCH ×4 (08:20→19:18)
[2022-11-08] MEDS: HYDROGEN PEROXIDE 3% 118 ML BOTTLE TOP SCH ×2 (08:20→19:18)
[2022-11-08] MEDS: COD LIVER OIL/ZINC OXIDE OINT 113 GM TUBE TP SCH ×2 (08:21→21:00)
[2022-11-08] MEDS: REMEDY ESSENTIAL ZINC PASTE 113 GM TP SCH ×2 (08:21→21:00)
[2022-11-08] MEDS: VITAMINS A AND D 5 GM UD PKT TP SCH ×3 (08:21)
[2022-11-08 20:00] VITALS: TEMP 97.5
[2022-11-08] MEDS: OMEPRAZOLE 20 MG CAPSULE.DR GT SCH (21:00)
[2022-11-08] MEDS: MIRALAX 17 GM POWD.PACK GT SCH (21:00)
[2022-11-09] MEDS: ARGININE/GLUTAMINE/CALCIUM BMB 1 EACH POWD.PACK GT SCH ×2 (06:00→17:25)
[2022-11-09] MEDS: ASCORBIC ACID 500 MG TABLET GT SCH (06:00)
[2022-11-09] MEDS: BACLOFEN 10 MG TABLET GT SCH ×3 (06:00→21:08)
[2022-11-09] MEDS: OMEPRAZOLE 20 MG CAPSULE.DR GT SCH ×2 (06:29→21:07)
[2022-11-09] MEDS: PROTEIN SUPPLEMENT (PROSTAT) 30 ML LIQUID GT SCH (08:00)
[2022-11-09 08:09] VITALS: TEMP 98.1
[2022-11-09] MEDS: IPRATROPIUM BROMIDE 0.5 MG/2.5 ML NEBU NEB SCH ×4 (08:20→19:06)
[2022-11-09] MEDS: ALBUTEROL SULFATE 2.5 MG/3 ML NEBU NEB SCH ×4 (08:20→19:06)
[2022-11-09] MEDS: HYDROGEN PEROXIDE 3% 118 ML BOTTLE TOP SCH ×2 (08:20→19:06)
[2022-11-09] MEDS: COD LIVER OIL/ZINC OXIDE OINT 113 GM TUBE TP SCH ×2 (09:38→21:08)
[2022-11-09] MEDS: PHENYTOIN 100 MG/4 ML UDC GT SCH ×2 (09:38→21:06)
[2022-11-09] MEDS: CHOLECALCIFEROL 400 UNITS TABLET GT SCH ×2 (09:38→21:08)
[2022-11-09] MEDS: PHENOBARBITAL 64.8 MG TABLET GT SCH ×2 (09:38→21:07)
[2022-11-09] MEDS: REMEDY ESSENTIAL ZINC PASTE 113 GM TP SCH ×2 (09:38→21:08)
[2022-11-09] MEDS: VITAMINS A AND D 5 GM UD PKT TP SCH ×3 (09:38)
[2022-11-09] MEDS: CULTURELLE CAPSULE GT SCH ×2 (09:38→21:05)
[2022-11-09 20:00] VITALS: TEMP 97.2
[2022-11-09] MEDS: MIRALAX 17 GM POWD.PACK GT SCH (21:07)
[2022-11-09] MEDS: chlorproMAZINE 25 MG TABLET GT PRN (21:11)
[2022-11-10] MEDS: JEVITY 1.2 1000 ML LIQUID GT PRN (02:30)
[2022-11-10] MEDS: BACLOFEN 10 MG TABLET GT SCH ×3 (05:27→21:10)
[2022-11-10] MEDS: OMEPRAZOLE 20 MG CAPSULE.DR GT SCH ×2 (05:27→20:34)
[2022-11-10] MEDS: ARGININE/GLUTAMINE/CALCIUM BMB 1 EACH POWD.PACK GT SCH ×2 (05:27→17:25)
[2022-11-10] MEDS: ASCORBIC ACID 500 MG TABLET GT SCH (05:27)
[2022-11-10 07:56] VITALS: TEMP 98.2
[2022-11-10] MEDS: PROTEIN SUPPLEMENT (PROSTAT) 30 ML LIQUID GT SCH (08:00)
[2022-11-10] MEDS: ALBUTEROL SULFATE 2.5 MG/3 ML NEBU NEB SCH ×4 (08:16→19:02)
[2022-11-10] MEDS: IPRATROPIUM BROMIDE 0.5 MG/2.5 ML NEBU NEB SCH ×4 (08:16→19:02)
[2022-11-10] MEDS: HYDROGEN PEROXIDE 3% 118 ML BOTTLE TOP SCH ×2 (08:16→19:02)
[2022-11-10] MEDS: CHOLECALCIFEROL 400 UNITS TABLET GT SCH ×2 (09:28→20:34)
[2022-11-10] MEDS: PHENYTOIN 100 MG/4 ML UDC GT SCH ×2 (09:28→20:34)
[2022-11-10] MEDS: COD LIVER OIL/ZINC OXIDE OINT 113 GM TUBE TP SCH ×2 (09:28→20:34)
[2022-11-10] MEDS: REMEDY ESSENTIAL ZINC PASTE 113 GM TP SCH ×2 (09:28→20:34)
[2022-11-10] MEDS: PHENOBARBITAL 64.8 MG TABLET GT SCH ×2 (09:28→20:34)
[2022-11-10] MEDS: VITAMINS A AND D 5 GM UD PKT TP SCH ×3 (09:28)
[2022-11-10] MEDS: CULTURELLE CAPSULE GT SCH ×2 (09:28→20:34)
[2022-11-10 20:00] VITALS: TEMP 98.8
[2022-11-10] MEDS: MIRALAX 17 GM POWD.PACK GT SCH (20:34)
[2022-11-11] MEDS: ARGININE/GLUTAMINE/CALCIUM BMB 1 EACH POWD.PACK GT SCH ×2 (05:26→18:01)
[2022-11-11] MEDS: ASCORBIC ACID 500 MG TABLET GT SCH (05:26)
[2022-11-11] MEDS: BACLOFEN 10 MG TABLET GT SCH ×3 (05:26→22:30)
[2022-11-11] MEDS: OMEPRAZOLE 20 MG CAPSULE.DR GT SCH ×2 (05:41→20:43)
[2022-11-11] MEDS: IPRATROPIUM BROMIDE 0.5 MG/2.5 ML NEBU NEB SCH ×4 (07:00→18:52)
[2022-11-11] MEDS: ALBUTEROL SULFATE 2.5 MG/3 ML NEBU NEB SCH ×4 (07:00→18:52)
[2022-11-11] MEDS: HYDROGEN PEROXIDE 3% 118 ML BOTTLE TOP SCH ×2 (07:00→20:44)
[2022-11-11 07:28] VITALS: TEMP 97.3
[2022-11-11] MEDS: PHENYTOIN 100 MG/4 ML UDC GT SCH ×2 (08:46→20:43)
[2022-11-11] MEDS: PHENOBARBITAL 64.8 MG TABLET GT SCH ×2 (08:46→20:43)
[2022-11-11] MEDS: PROTEIN SUPPLEMENT (PROSTAT) 30 ML LIQUID GT SCH (08:46)
[2022-11-11] MEDS: COD LIVER OIL/ZINC OXIDE OINT 113 GM TUBE TP SCH ×2 (08:46→20:44)
[2022-11-11] MEDS: CULTURELLE CAPSULE GT SCH ×2 (08:46→20:43)
[2022-11-11] MEDS: CHOLECALCIFEROL 400 UNITS TABLET GT SCH ×2 (08:46→20:44)
[2022-11-11] MEDS: VITAMINS A AND D 5 GM UD PKT TP SCH ×3 (08:47)
[2022-11-11] MEDS: REMEDY ESSENTIAL ZINC PASTE 113 GM TP SCH ×2 (08:47→20:44)
[2022-11-11 19:56] VITALS: TEMP 98
[2022-11-11] MEDS: MIRALAX 17 GM POWD.PACK GT SCH (20:43)
[2022-11-12] MEDS: BACLOFEN 10 MG TABLET GT SCH ×3 (06:21→22:00)
[2022-11-12] MEDS: OMEPRAZOLE 20 MG CAPSULE.DR GT SCH ×2 (06:21→20:06)
[2022-11-12] MEDS: ASCORBIC ACID 500 MG TABLET GT SCH (06:21)
[2022-11-12] MEDS: ARGININE/GLUTAMINE/CALCIUM BMB 1 EACH POWD.PACK GT SCH ×2 (06:21→18:57)
[2022-11-12] MEDS: ALBUTEROL SULFATE 2.5 MG/3 ML NEBU NEB SCH ×4 (07:11→19:07)
[2022-11-12] MEDS: IPRATROPIUM BROMIDE 0.5 MG/2.5 ML NEBU NEB SCH ×4 (07:11→19:07)
[2022-11-12] MEDS: HYDROGEN PEROXIDE 3% 118 ML BOTTLE TOP SCH ×2 (07:11→19:07)
[2022-11-12 07:20] VITALS: TEMP 98.6
[2022-11-12] MEDS: PROTEIN SUPPLEMENT (PROSTAT) 30 ML LIQUID GT SCH (08:00)
[2022-11-12] MEDS: PHENYTOIN 100 MG/4 ML UDC GT SCH ×2 (09:38→20:06)
[2022-11-12] MEDS: CULTURELLE CAPSULE GT SCH ×2 (09:38→20:04)
[2022-11-12] MEDS: PHENOBARBITAL 64.8 MG TABLET GT SCH ×2 (09:38→20:06)
[2022-11-12] MEDS: VITAMINS A AND D 5 GM UD PKT TP SCH ×3 (09:39)
[2022-11-12] MEDS: CHOLECALCIFEROL 400 UNITS TABLET GT SCH ×2 (09:39→20:07)
[2022-11-12] MEDS: COD LIVER OIL/ZINC OXIDE OINT 113 GM TUBE TP SCH ×2 (09:39→20:07)
[2022-11-12] MEDS: REMEDY ESSENTIAL ZINC PASTE 113 GM TP SCH ×2 (09:39→20:07)
[2022-11-12] MEDS: MIRALAX 17 GM POWD.PACK GT SCH (20:06)
[2022-11-12 20:14] VITALS: TEMP 98.7
[2022-11-13] MEDS: ASCORBIC ACID 500 MG TABLET GT SCH (05:10)
[2022-11-13] MEDS: JEVITY 1.2 1000 ML LIQUID GT PRN (05:10)
[2022-11-13] MEDS: ARGININE/GLUTAMINE/CALCIUM BMB 1 EACH POWD.PACK GT SCH ×2 (05:10→18:24)
[2022-11-13] MEDS: BACLOFEN 10 MG TABLET GT SCH ×3 (05:10→22:00)
[2022-11-13] MEDS: OMEPRAZOLE 20 MG CAPSULE.DR GT SCH ×2 (05:54→20:06)
[2022-11-13] MEDS: ALBUTEROL SULFATE 2.5 MG/3 ML NEBU NEB SCH ×4 (07:10→19:04)
[2022-11-13] MEDS: IPRATROPIUM BROMIDE 0.5 MG/2.5 ML NEBU NEB SCH ×4 (07:10→19:04)
[2022-11-13 07:21] VITALS: TEMP 97.5
[2022-11-13] MEDS: HYDROGEN PEROXIDE 3% 118 ML BOTTLE TOP SCH ×2 (08:48→20:59)
[2022-11-13] MEDS: PROTEIN SUPPLEMENT (PROSTAT) 30 ML LIQUID GT SCH (08:56)
[2022-11-13] MEDS: PHENYTOIN 100 MG/4 ML UDC GT SCH ×2 (08:58→20:06)
[2022-11-13] MEDS: CULTURELLE CAPSULE GT SCH ×2 (09:01→20:06)
[2022-11-13] MEDS: COD LIVER OIL/ZINC OXIDE OINT 113 GM TUBE TP SCH ×2 (09:02→20:06)
[2022-11-13] MEDS: PHENOBARBITAL 64.8 MG TABLET GT SCH ×2 (09:02→20:06)
[2022-11-13] MEDS: REMEDY ESSENTIAL ZINC PASTE 113 GM TP SCH ×2 (09:02→20:06)
[2022-11-13] MEDS: VITAMINS A AND D 5 GM UD PKT TP SCH ×3 (09:02)
[2022-11-13] MEDS: CHOLECALCIFEROL 400 UNITS TABLET GT SCH ×2 (09:02→20:06)
[2022-11-13 19:51] VITALS: TEMP 97.8
[2022-11-13] MEDS: MIRALAX 17 GM POWD.PACK GT SCH (20:06)
[2022-11-14] MEDS: ARGININE/GLUTAMINE/CALCIUM BMB 1 EACH POWD.PACK GT SCH ×2 (05:06→17:23)
[2022-11-14] MEDS: JEVITY 1.2 1000 ML LIQUID GT PRN (05:06)
[2022-11-14] MEDS: BACLOFEN 10 MG TABLET GT SCH ×3 (05:06→22:00)
[2022-11-14] MEDS: ASCORBIC ACID 500 MG TABLET GT SCH (05:06)
[2022-11-14] MEDS: OMEPRAZOLE 20 MG CAPSULE.DR GT SCH ×2 (06:05→20:54)
[2022-11-14 07:43] VITALS: BP 110/69; TEMP 98.4; O2SAT 100
[2022-11-14] MEDS: IPRATROPIUM BROMIDE 0.5 MG/2.5 ML NEBU NEB SCH ×4 (07:56→19:14)
[2022-11-14] MEDS: ALBUTEROL SULFATE 2.5 MG/3 ML NEBU NEB SCH ×4 (07:56→19:14)
[2022-11-14] MEDS: PROTEIN SUPPLEMENT (PROSTAT) 30 ML LIQUID GT SCH (08:00)
[2022-11-14] MEDS: HYDROGEN PEROXIDE 3% 118 ML BOTTLE TOP SCH ×2 (08:05→19:14)
[2022-11-14] MEDS: CULTURELLE CAPSULE GT SCH ×2 (09:01→20:54)
[2022-11-14] MEDS: REMEDY ESSENTIAL ZINC PASTE 113 GM TP SCH ×2 (09:01→20:54)
[2022-11-14] MEDS: PHENOBARBITAL 64.8 MG TABLET GT SCH ×2 (09:01→20:54)
[2022-11-14] MEDS: CHOLECALCIFEROL 400 UNITS TABLET GT SCH ×2 (09:01→20:54)
[2022-11-14] MEDS: VITAMINS A AND D 5 GM UD PKT TP SCH ×3 (09:01)
[2022-11-14] MEDS: PHENYTOIN 100 MG/4 ML UDC GT SCH ×2 (09:01→20:54)
[2022-11-14] MEDS: COD LIVER OIL/ZINC OXIDE OINT 113 GM TUBE TP SCH ×2 (09:01→20:54)
[2022-11-14] MEDS: MIRALAX 17 GM POWD.PACK GT SCH (20:54)
[2022-11-14 21:02] VITALS: TEMP 98.2
[2022-11-15] MEDS: ASCORBIC ACID 500 MG TABLET GT SCH (05:23)
[2022-11-15] MEDS: OMEPRAZOLE 20 MG CAPSULE.DR GT SCH ×2 (05:23→20:22)
[2022-11-15] MEDS: ARGININE/GLUTAMINE/CALCIUM BMB 1 EACH POWD.PACK GT SCH ×2 (05:23→17:28)
[2022-11-15] MEDS: BACLOFEN 10 MG TABLET GT SCH ×3 (05:28→22:05)
[2022-11-15] MEDS: ALBUTEROL SULFATE 2.5 MG/3 ML NEBU NEB SCH ×4 (07:35→19:27)
[2022-11-15] MEDS: IPRATROPIUM BROMIDE 0.5 MG/2.5 ML NEBU NEB SCH ×4 (07:35→19:27)
[2022-11-15 07:49] VITALS: TEMP 97.4
[2022-11-15] MEDS: HYDROGEN PEROXIDE 3% 118 ML BOTTLE TOP SCH ×2 (08:36→19:27)
[2022-11-15] MEDS: PROTEIN SUPPLEMENT (PROSTAT) 30 ML LIQUID GT SCH (08:54)
[2022-11-15] MEDS: CULTURELLE CAPSULE GT SCH ×2 (08:55→20:21)
[2022-11-15] MEDS: PHENYTOIN 100 MG/4 ML UDC GT SCH ×2 (08:55→20:21)
[2022-11-15] MEDS: PHENOBARBITAL 64.8 MG TABLET GT SCH ×2 (08:56→20:21)
[2022-11-15] MEDS: VITAMINS A AND D 5 GM UD PKT TP SCH ×3 (08:57)
[2022-11-15] MEDS: REMEDY ESSENTIAL ZINC PASTE 113 GM TP SCH ×2 (08:57→20:22)
[2022-11-15] MEDS: CHOLECALCIFEROL 400 UNITS TABLET GT SCH ×2 (08:57→20:22)
[2022-11-15] MEDS: COD LIVER OIL/ZINC OXIDE OINT 113 GM TUBE TP SCH ×2 (08:57→20:22)
[2022-11-15 20:00] VITALS: TEMP 97.6
[2022-11-15] MEDS: MIRALAX 17 GM POWD.PACK GT SCH (20:21)
[2022-11-15] MEDS: JEVITY 1.2 1000 ML LIQUID GT PRN (21:47)
[2022-11-16] MEDS: OMEPRAZOLE 20 MG CAPSULE.DR GT SCH ×2 (05:49→21:15)
[2022-11-16] MEDS: BACLOFEN 10 MG TABLET GT SCH ×3 (05:49→21:16)
[2022-11-16] MEDS: ASCORBIC ACID 500 MG TABLET GT SCH (05:49)
[2022-11-16] MEDS: ARGININE/GLUTAMINE/CALCIUM BMB 1 EACH POWD.PACK GT SCH ×2 (05:49→17:03)
[2022-11-16] MEDS: ALBUTEROL SULFATE 2.5 MG/3 ML NEBU NEB SCH ×4 (07:14→19:38)
[2022-11-16] MEDS: HYDROGEN PEROXIDE 3% 118 ML BOTTLE TOP SCH ×2 (07:14→19:38)
[2022-11-16] MEDS: IPRATROPIUM BROMIDE 0.5 MG/2.5 ML NEBU NEB SCH ×4 (07:14→19:38)
[2022-11-16 07:31] VITALS: TEMP 97.3
[2022-11-16] MEDS: PROTEIN SUPPLEMENT (PROSTAT) 30 ML LIQUID GT SCH (08:16)
[2022-11-16] MEDS: PHENYTOIN 100 MG/4 ML UDC GT SCH ×2 (08:16→21:14)
[2022-11-16] MEDS: CULTURELLE CAPSULE GT SCH ×2 (08:16→21:11)
[2022-11-16] MEDS: PHENOBARBITAL 64.8 MG TABLET GT SCH ×2 (08:16→21:14)
[2022-11-16] MEDS: CHOLECALCIFEROL 400 UNITS TABLET GT SCH ×2 (08:16→21:15)
[2022-11-16] MEDS: COD LIVER OIL/ZINC OXIDE OINT 113 GM TUBE TP SCH ×2 (08:17→21:16)
[2022-11-16] MEDS: VITAMINS A AND D 5 GM UD PKT TP SCH ×3 (08:17)
[2022-11-16] MEDS: REMEDY ESSENTIAL ZINC PASTE 113 GM TP SCH ×2 (08:17→21:16)
[2022-11-16] MEDS: JEVITY 1.2 1000 ML LIQUID GT PRN (17:15)
[2022-11-16 20:00] VITALS: TEMP 97.6
[2022-11-16] MEDS: MIRALAX 17 GM POWD.PACK GT SCH (21:15)
[2022-11-17] MEDS: OMEPRAZOLE 20 MG CAPSULE.DR GT SCH ×2 (05:02→21:10)
[2022-11-17] MEDS: ASCORBIC ACID 500 MG TABLET GT SCH (05:02)
[2022-11-17] MEDS: BACLOFEN 10 MG TABLET GT SCH ×3 (05:02→21:19)
[2022-11-17] MEDS: ARGININE/GLUTAMINE/CALCIUM BMB 1 EACH POWD.PACK GT SCH ×2 (05:02→17:01)
[2022-11-17] MEDS: IPRATROPIUM BROMIDE 0.5 MG/2.5 ML NEBU NEB SCH ×4 (07:06→19:07)
[2022-11-17] MEDS: ALBUTEROL SULFATE 2.5 MG/3 ML NEBU NEB SCH ×4 (07:06→19:07)
[2022-11-17 07:26] VITALS: TEMP 97.7
[2022-11-17] MEDS: HYDROGEN PEROXIDE 3% 118 ML BOTTLE TOP SCH ×2 (08:01→19:07)
[2022-11-17] MEDS: PROTEIN SUPPLEMENT (PROSTAT) 30 ML LIQUID GT SCH (08:20)
[2022-11-17] MEDS: CULTURELLE CAPSULE GT SCH ×2 (08:21→21:09)
[2022-11-17] MEDS: CHOLECALCIFEROL 400 UNITS TABLET GT SCH ×2 (08:23→21:10)
[2022-11-17] MEDS: PHENOBARBITAL 64.8 MG TABLET GT SCH ×2 (08:23→21:10)
[2022-11-17] MEDS: PHENYTOIN 100 MG/4 ML UDC GT SCH ×2 (08:23→21:09)
[2022-11-17] MEDS: REMEDY ESSENTIAL ZINC PASTE 113 GM TP SCH ×2 (08:24→21:19)
[2022-11-17] MEDS: VITAMINS A AND D 5 GM UD PKT TP SCH ×3 (08:24)
[2022-11-17] MEDS: COD LIVER OIL/ZINC OXIDE OINT 113 GM TUBE TP SCH ×2 (08:24→21:19)
[2022-11-17 10:26] VITALS: O2SAT 98
[2022-11-17] MEDS: JEVITY 1.2 1000 ML LIQUID GT PRN (15:44)
[2022-11-17 20:32] VITALS: TEMP 99.1
[2022-11-17] MEDS: MIRALAX 17 GM POWD.PACK GT SCH (21:10)
[2022-11-18] MEDS: ASCORBIC ACID 500 MG TABLET GT SCH (05:48)
[2022-11-18] MEDS: BACLOFEN 10 MG TABLET GT SCH ×3 (05:48→22:21)
[2022-11-18] MEDS: OMEPRAZOLE 20 MG CAPSULE.DR GT SCH ×2 (05:48→20:20)
[2022-11-18] MEDS: ARGININE/GLUTAMINE/CALCIUM BMB 1 EACH POWD.PACK GT SCH ×2 (05:48→17:22)
[2022-11-18] MEDS: IPRATROPIUM BROMIDE 0.5 MG/2.5 ML NEBU NEB SCH ×4 (07:06→19:02)
[2022-11-18] MEDS: HYDROGEN PEROXIDE 3% 118 ML BOTTLE TOP SCH ×2 (07:06→19:02)
[2022-11-18] MEDS: ALBUTEROL SULFATE 2.5 MG/3 ML NEBU NEB SCH ×4 (07:06→19:02)
[2022-11-18 07:22] VITALS: TEMP 97.9
[2022-11-18] MEDS: PROTEIN SUPPLEMENT (PROSTAT) 30 ML LIQUID GT SCH (08:43)
[2022-11-18] MEDS: CULTURELLE CAPSULE GT SCH ×2 (08:48→20:17)
[2022-11-18] MEDS: PHENOBARBITAL 64.8 MG TABLET GT SCH ×2 (08:50→20:18)
[2022-11-18] MEDS: CHOLECALCIFEROL 400 UNITS TABLET GT SCH ×2 (08:50→20:21)
[2022-11-18] MEDS: PHENYTOIN 100 MG/4 ML UDC GT SCH ×2 (08:50→20:17)
[2022-11-18] MEDS: REMEDY ESSENTIAL ZINC PASTE 113 GM TP SCH ×2 (08:51→20:21)
[2022-11-18] MEDS: COD LIVER OIL/ZINC OXIDE OINT 113 GM TUBE TP SCH ×2 (08:51→20:21)
[2022-11-18] MEDS: VITAMINS A AND D 5 GM UD PKT TP SCH ×3 (08:51)
[2022-11-18] MEDS: JEVITY 1.2 1000 ML LIQUID GT PRN (14:24)
[2022-11-18] MEDS: MIRALAX 17 GM POWD.PACK GT SCH (20:20)
[2022-11-18 22:48] VITALS: TEMP 98.6
[2022-11-19] MEDS: OMEPRAZOLE 20 MG CAPSULE.DR GT SCH ×2 (06:22→20:17)
[2022-11-19] MEDS: ASCORBIC ACID 500 MG TABLET GT SCH (06:22)
[2022-11-19] MEDS: ARGININE/GLUTAMINE/CALCIUM BMB 1 EACH POWD.PACK GT SCH ×2 (06:22→17:19)
[2022-11-19] MEDS: BACLOFEN 10 MG TABLET GT SCH ×3 (06:22→22:32)
[2022-11-19 07:19] VITALS: TEMP 97.6
[2022-11-19] MEDS: ALBUTEROL SULFATE 2.5 MG/3 ML NEBU NEB SCH ×4 (08:08→19:06)
[2022-11-19] MEDS: HYDROGEN PEROXIDE 3% 118 ML BOTTLE TOP SCH ×2 (08:08→19:07)
[2022-11-19] MEDS: IPRATROPIUM BROMIDE 0.5 MG/2.5 ML NEBU NEB SCH ×4 (08:08→19:06)
[2022-11-19] MEDS: PROTEIN SUPPLEMENT (PROSTAT) 30 ML LIQUID GT SCH (08:49)
[2022-11-19] MEDS: PHENYTOIN 100 MG/4 ML UDC GT SCH ×2 (09:18→20:16)
[2022-11-19] MEDS: VITAMINS A AND D 5 GM UD PKT TP SCH ×3 (09:20)
[2022-11-19] MEDS: PHENOBARBITAL 64.8 MG TABLET GT SCH ×2 (09:20→20:16)
[2022-11-19] MEDS: CHOLECALCIFEROL 400 UNITS TABLET GT SCH ×2 (09:20→20:17)
[2022-11-19] MEDS: REMEDY ESSENTIAL ZINC PASTE 113 GM TP SCH ×2 (09:20→20:17)
[2022-11-19] MEDS: COD LIVER OIL/ZINC OXIDE OINT 113 GM TUBE TP SCH ×2 (09:20→20:17)
[2022-11-19] MEDS: CULTURELLE CAPSULE GT SCH ×2 (09:21→20:16)
[2022-11-19] MEDS: JEVITY 1.2 1000 ML LIQUID GT PRN (15:01)
[2022-11-19] MEDS: MIRALAX 17 GM POWD.PACK GT SCH (20:16)
[2022-11-19 20:44] VITALS: TEMP 97.3
[2022-11-20] MEDS: BACLOFEN 10 MG TABLET GT SCH ×3 (05:08→21:32)
[2022-11-20] MEDS: ARGININE/GLUTAMINE/CALCIUM BMB 1 EACH POWD.PACK GT SCH ×2 (05:08→17:52)
[2022-11-20] MEDS: ASCORBIC ACID 500 MG TABLET GT SCH (05:08)
[2022-11-20] MEDS: OMEPRAZOLE 20 MG CAPSULE.DR GT SCH ×2 (05:48→21:35)
[2022-11-20] MEDS: IPRATROPIUM BROMIDE 0.5 MG/2.5 ML NEBU NEB SCH ×4 (07:14→19:12)
[2022-11-20] MEDS: HYDROGEN PEROXIDE 3% 118 ML BOTTLE TOP SCH ×2 (07:14→19:13)
[2022-11-20] MEDS: ALBUTEROL SULFATE 2.5 MG/3 ML NEBU NEB SCH ×4 (07:14→19:13)
[2022-11-20 07:25] VITALS: TEMP 98
[2022-11-20] MEDS: PROTEIN SUPPLEMENT (PROSTAT) 30 ML LIQUID GT SCH (08:36)
[2022-11-20] MEDS: VITAMINS A AND D 5 GM UD PKT TP SCH ×3 (09:14)
[2022-11-20] MEDS: REMEDY ESSENTIAL ZINC PASTE 113 GM TP SCH ×2 (09:14→21:32)
[2022-11-20] MEDS: COD LIVER OIL/ZINC OXIDE OINT 113 GM TUBE TP SCH ×2 (09:14→21:32)
[2022-11-20] MEDS: CHOLECALCIFEROL 400 UNITS TABLET GT SCH ×2 (09:14→21:32)
[2022-11-20] MEDS: CULTURELLE CAPSULE GT SCH ×2 (09:22→21:36)
[2022-11-20] MEDS: PHENYTOIN 100 MG/4 ML UDC GT SCH ×2 (09:23→21:31)
[2022-11-20] MEDS: PHENOBARBITAL 64.8 MG TABLET GT SCH ×2 (09:24→21:39)
[2022-11-20] MEDS: JEVITY 1.2 1000 ML LIQUID GT PRN (13:44)
[2022-11-20 20:00] VITALS: TEMP 97.8
[2022-11-20] MEDS: MIRALAX 17 GM POWD.PACK GT SCH (21:31)
[2022-11-21] MEDS: BACLOFEN 10 MG TABLET GT SCH ×3 (05:13→22:10)
[2022-11-21] MEDS: ASCORBIC ACID 500 MG TABLET GT SCH (05:13)
[2022-11-21] MEDS: ARGININE/GLUTAMINE/CALCIUM BMB 1 EACH POWD.PACK GT SCH ×2 (05:13→16:52)
[2022-11-21] MEDS: OMEPRAZOLE 20 MG CAPSULE.DR GT SCH ×2 (05:30→20:24)
[2022-11-21 07:43] VITALS: TEMP 97.6
[2022-11-21] MEDS: HYDROGEN PEROXIDE 3% 118 ML BOTTLE TOP SCH ×2 (07:52→19:24)
[2022-11-21] MEDS: IPRATROPIUM BROMIDE 0.5 MG/2.5 ML NEBU NEB SCH ×4 (07:52→19:24)
[2022-11-21] MEDS: ALBUTEROL SULFATE 2.5 MG/3 ML NEBU NEB SCH ×4 (07:52→19:24)
[2022-11-21] MEDS: PROTEIN SUPPLEMENT (PROSTAT) 30 ML LIQUID GT SCH (08:00)
[2022-11-21] MEDS: PHENOBARBITAL 64.8 MG TABLET GT SCH ×2 (09:03→20:24)
[2022-11-21] MEDS: PHENYTOIN 100 MG/4 ML UDC GT SCH ×2 (09:03→20:24)
[2022-11-21] MEDS: COD LIVER OIL/ZINC OXIDE OINT 113 GM TUBE TP SCH ×2 (09:03→20:24)
[2022-11-21] MEDS: CULTURELLE CAPSULE GT SCH ×2 (09:03→20:23)
[2022-11-21] MEDS: CHOLECALCIFEROL 400 UNITS TABLET GT SCH ×2 (09:03→20:24)
[2022-11-21] MEDS: REMEDY ESSENTIAL ZINC PASTE 113 GM TP SCH ×2 (09:05→20:24)
[2022-11-21] MEDS: VITAMINS A AND D 5 GM UD PKT TP SCH ×3 (09:10)
[2022-11-21] MEDS: JEVITY 1.2 1000 ML LIQUID GT PRN (12:32)
[2022-11-21] MEDS: MIRALAX 17 GM POWD.PACK GT SCH (20:24)
[2022-11-21 21:34] VITALS: TEMP 98.7
[2022-11-22] MEDS: ARGININE/GLUTAMINE/CALCIUM BMB 1 EACH POWD.PACK GT SCH ×2 (05:08→18:04)
[2022-11-22] MEDS: BACLOFEN 10 MG TABLET GT SCH ×3 (05:08→21:01)
[2022-11-22] MEDS: ASCORBIC ACID 500 MG TABLET GT SCH (05:08)
[2022-11-22] MEDS: OMEPRAZOLE 20 MG CAPSULE.DR GT SCH ×2 (05:52→21:00)
[2022-11-22 07:31] VITALS: TEMP 98.5
[2022-11-22] MEDS: IPRATROPIUM BROMIDE 0.5 MG/2.5 ML NEBU NEB SCH ×4 (07:41→19:02)
[2022-11-22] MEDS: ALBUTEROL SULFATE 2.5 MG/3 ML NEBU NEB SCH ×4 (07:41→19:02)
[2022-11-22] MEDS: HYDROGEN PEROXIDE 3% 118 ML BOTTLE TOP SCH ×2 (07:41→21:11)
[2022-11-22] MEDS: PROTEIN SUPPLEMENT (PROSTAT) 30 ML LIQUID GT SCH (08:57)
[2022-11-22] MEDS: CULTURELLE CAPSULE GT SCH ×2 (08:59→20:47)
[2022-11-22] MEDS: PHENYTOIN 100 MG/4 ML UDC GT SCH ×2 (09:00→20:59)
[2022-11-22] MEDS: PHENOBARBITAL 64.8 MG TABLET GT SCH ×2 (09:01→21:00)
[2022-11-22] MEDS: CHOLECALCIFEROL 400 UNITS TABLET GT SCH ×2 (09:01→21:00)
[2022-11-22] MEDS: COD LIVER OIL/ZINC OXIDE OINT 113 GM TUBE TP SCH ×2 (09:02→21:00)
[2022-11-22] MEDS: VITAMINS A AND D 5 GM UD PKT TP SCH ×3 (09:02)
[2022-11-22] MEDS: REMEDY ESSENTIAL ZINC PASTE 113 GM TP SCH ×2 (09:02→21:01)
[2022-11-22] MEDS: JEVITY 1.2 1000 ML LIQUID GT PRN (15:26)
[2022-11-22 20:00] VITALS: TEMP 97.7
[2022-11-22] MEDS: MIRALAX 17 GM POWD.PACK GT SCH (21:00)
[2022-11-23] MEDS: ARGININE/GLUTAMINE/CALCIUM BMB 1 EACH POWD.PACK GT SCH ×2 (05:05→17:34)
[2022-11-23] MEDS: ASCORBIC ACID 500 MG TABLET GT SCH (05:05)
[2022-11-23] MEDS: OMEPRAZOLE 20 MG CAPSULE.DR GT SCH ×2 (05:05→20:00)
[2022-11-23] MEDS: BACLOFEN 10 MG TABLET GT SCH ×3 (05:05→21:50)
[2022-11-23 07:31] VITALS: TEMP 97.5
[2022-11-23] MEDS: HYDROGEN PEROXIDE 3% 118 ML BOTTLE TOP SCH ×2 (07:32→19:15)
[2022-11-23] MEDS: IPRATROPIUM BROMIDE 0.5 MG/2.5 ML NEBU NEB SCH ×4 (07:32→19:15)
[2022-11-23] MEDS: ALBUTEROL SULFATE 2.5 MG/3 ML NEBU NEB SCH ×4 (07:32→19:15)
[2022-11-23] MEDS: PROTEIN SUPPLEMENT (PROSTAT) 30 ML LIQUID GT SCH (08:00)
[2022-11-23] MEDS: CULTURELLE CAPSULE GT SCH ×2 (09:40→20:00)
[2022-11-23] MEDS: PHENYTOIN 100 MG/4 ML UDC GT SCH ×2 (09:44→20:00)
[2022-11-23] MEDS: CHOLECALCIFEROL 400 UNITS TABLET GT SCH ×2 (09:45→20:00)
[2022-11-23] MEDS: PHENOBARBITAL 64.8 MG TABLET GT SCH ×2 (09:45→20:00)
[2022-11-23] MEDS: REMEDY ESSENTIAL ZINC PASTE 113 GM TP SCH ×2 (09:46→20:01)
[2022-11-23] MEDS: COD LIVER OIL/ZINC OXIDE OINT 113 GM TUBE TP SCH ×2 (09:46→20:01)
[2022-11-23] MEDS: VITAMINS A AND D 5 GM UD PKT TP SCH ×3 (09:46)
[2022-11-23] MEDS: JEVITY 1.2 1000 ML LIQUID GT PRN (09:48)
[2022-11-23 20:00] VITALS: TEMP 97.9
[2022-11-23] MEDS: MIRALAX 17 GM POWD.PACK GT SCH (20:00)
[2022-11-24] MEDS: BACLOFEN 10 MG TABLET GT SCH ×3 (05:14→22:00)
[2022-11-24] MEDS: ASCORBIC ACID 500 MG TABLET GT SCH (05:14)
[2022-11-24] MEDS: JEVITY 1.2 1000 ML LIQUID GT PRN (05:14)
[2022-11-24] MEDS: ARGININE/GLUTAMINE/CALCIUM BMB 1 EACH POWD.PACK GT SCH ×2 (05:14→17:43)
[2022-11-24] MEDS: OMEPRAZOLE 20 MG CAPSULE.DR GT SCH ×2 (05:34→20:40)
[2022-11-24] MEDS: ALBUTEROL SULFATE 2.5 MG/3 ML NEBU NEB SCH ×4 (07:05→19:08)
[2022-11-24] MEDS: IPRATROPIUM BROMIDE 0.5 MG/2.5 ML NEBU NEB SCH ×4 (07:05→19:08)
[2022-11-24 07:37] VITALS: TEMP 97.5
[2022-11-24] MEDS: PROTEIN SUPPLEMENT (PROSTAT) 30 ML LIQUID GT SCH (08:20)
[2022-11-24] MEDS: CULTURELLE CAPSULE GT SCH ×2 (08:22→20:40)
[2022-11-24] MEDS: PHENOBARBITAL 64.8 MG TABLET GT SCH ×2 (08:22→20:40)
[2022-11-24] MEDS: PHENYTOIN 100 MG/4 ML UDC GT SCH ×2 (08:22→20:40)
[2022-11-24] MEDS: VITAMINS A AND D 5 GM UD PKT TP SCH ×3 (08:23)
[2022-11-24] MEDS: CHOLECALCIFEROL 400 UNITS TABLET GT SCH ×2 (08:23→20:40)
[2022-11-24] MEDS: COD LIVER OIL/ZINC OXIDE OINT 113 GM TUBE TP SCH ×2 (08:23→20:40)
[2022-11-24] MEDS: REMEDY ESSENTIAL ZINC PASTE 113 GM TP SCH ×2 (08:23→20:40)
[2022-11-24] MEDS: HYDROGEN PEROXIDE 3% 118 ML BOTTLE TOP SCH ×2 (09:19→19:08)
[2022-11-24 20:00] VITALS: TEMP 98.6
[2022-11-24] MEDS: MIRALAX 17 GM POWD.PACK GT SCH (20:40)
[2022-11-25] MEDS: OMEPRAZOLE 20 MG CAPSULE.DR GT SCH ×2 (06:16→20:59)
[2022-11-25] MEDS: BACLOFEN 10 MG TABLET GT SCH ×3 (06:16→22:50)
[2022-11-25] MEDS: ASCORBIC ACID 500 MG TABLET GT SCH (06:16)
[2022-11-25] MEDS: ARGININE/GLUTAMINE/CALCIUM BMB 1 EACH POWD.PACK GT SCH ×2 (06:16→17:03)
[2022-11-25] MEDS: JEVITY 1.2 1000 ML LIQUID GT PRN (06:44)
[2022-11-25 07:19] VITALS: TEMP 98.2
[2022-11-25] MEDS: HYDROGEN PEROXIDE 3% 118 ML BOTTLE TOP SCH ×2 (07:36→18:45)
[2022-11-25] MEDS: IPRATROPIUM BROMIDE 0.5 MG/2.5 ML NEBU NEB SCH ×4 (07:36→18:45)
[2022-11-25] MEDS: ALBUTEROL SULFATE 2.5 MG/3 ML NEBU NEB SCH ×4 (07:36→18:45)
[2022-11-25] MEDS: PROTEIN SUPPLEMENT (PROSTAT) 30 ML LIQUID GT SCH (08:00)
[2022-11-25] MEDS: CHOLECALCIFEROL 400 UNITS TABLET GT SCH ×2 (09:00→20:59)
[2022-11-25] MEDS: CULTURELLE CAPSULE GT SCH ×2 (09:00→20:58)
[2022-11-25] MEDS: REMEDY ESSENTIAL ZINC PASTE 113 GM TP SCH ×2 (09:00→20:59)
[2022-11-25] MEDS: COD LIVER OIL/ZINC OXIDE OINT 113 GM TUBE TP SCH ×2 (09:00→20:59)
[2022-11-25] MEDS: VITAMINS A AND D 5 GM UD PKT TP SCH ×3 (09:00)
[2022-11-25] MEDS: PHENYTOIN 100 MG/4 ML UDC GT SCH ×2 (09:00→20:58)
[2022-11-25] MEDS: PHENOBARBITAL 64.8 MG TABLET GT SCH ×2 (09:00→20:58)
[2022-11-25 20:00] VITALS: TEMP 97.8
[2022-11-25] MEDS: MIRALAX 17 GM POWD.PACK GT SCH (20:58)
[2022-11-26] MEDS: OMEPRAZOLE 20 MG CAPSULE.DR GT SCH ×2 (05:37→20:37)
[2022-11-26] MEDS: ARGININE/GLUTAMINE/CALCIUM BMB 1 EACH POWD.PACK GT SCH ×2 (05:37→18:00)
[2022-11-26] MEDS: ASCORBIC ACID 500 MG TABLET GT SCH (05:37)
[2022-11-26] MEDS: BACLOFEN 10 MG TABLET GT SCH ×3 (05:37→22:30)
[2022-11-26] MEDS: JEVITY 1.2 1000 ML LIQUID GT PRN (06:37)
[2022-11-26 07:20] VITALS: TEMP 97.5
[2022-11-26] MEDS: ALBUTEROL SULFATE 2.5 MG/3 ML NEBU NEB SCH ×4 (07:33→19:11)
[2022-11-26] MEDS: HYDROGEN PEROXIDE 3% 118 ML BOTTLE TOP SCH ×2 (07:33→19:11)
[2022-11-26] MEDS: IPRATROPIUM BROMIDE 0.5 MG/2.5 ML NEBU NEB SCH ×4 (07:33→19:11)
[2022-11-26] MEDS: PROTEIN SUPPLEMENT (PROSTAT) 30 ML LIQUID GT SCH (08:00)
[2022-11-26] MEDS: COD LIVER OIL/ZINC OXIDE OINT 113 GM TUBE TP SCH ×2 (09:33→20:38)
[2022-11-26] MEDS: VITAMINS A AND D 5 GM UD PKT TP SCH ×3 (09:33)
[2022-11-26] MEDS: PHENYTOIN 100 MG/4 ML UDC GT SCH ×2 (09:33→20:37)
[2022-11-26] MEDS: REMEDY ESSENTIAL ZINC PASTE 113 GM TP SCH ×2 (09:33→20:38)
[2022-11-26] MEDS: CHOLECALCIFEROL 400 UNITS TABLET GT SCH ×2 (09:33→20:38)
[2022-11-26] MEDS: CULTURELLE CAPSULE GT SCH ×2 (09:33→20:37)
[2022-11-26] MEDS: PHENOBARBITAL 64.8 MG TABLET GT SCH ×2 (09:33→20:37)
[2022-11-26] MEDS: MIRALAX 17 GM POWD.PACK GT SCH (20:37)
[2022-11-27] MEDS: ARGININE/GLUTAMINE/CALCIUM BMB 1 EACH POWD.PACK GT SCH ×2 (06:22→17:25)
[2022-11-27] MEDS: BACLOFEN 10 MG TABLET GT SCH ×3 (06:22→22:00)
[2022-11-27] MEDS: ASCORBIC ACID 500 MG TABLET GT SCH (06:22)
[2022-11-27] MEDS: OMEPRAZOLE 20 MG CAPSULE.DR GT SCH ×2 (06:22→20:12)
[2022-11-27] MEDS: JEVITY 1.2 1000 ML LIQUID GT PRN (06:22)
[2022-11-27] MEDS: IPRATROPIUM BROMIDE 0.5 MG/2.5 ML NEBU NEB SCH ×4 (07:10→19:04)
[2022-11-27] MEDS: ALBUTEROL SULFATE 2.5 MG/3 ML NEBU NEB SCH ×4 (07:10→19:04)
[2022-11-27 07:26] VITALS: TEMP 97.5
[2022-11-27] MEDS: PROTEIN SUPPLEMENT (PROSTAT) 30 ML LIQUID GT SCH (08:00)
[2022-11-27] MEDS: HYDROGEN PEROXIDE 3% 118 ML BOTTLE TOP SCH ×2 (09:00→19:04)
[2022-11-27] MEDS: PHENOBARBITAL 64.8 MG TABLET GT SCH ×2 (09:32→20:12)
[2022-11-27] MEDS: CULTURELLE CAPSULE GT SCH ×2 (09:33→20:12)
[2022-11-27] MEDS: CHOLECALCIFEROL 400 UNITS TABLET GT SCH ×2 (09:34→20:12)
[2022-11-27] MEDS: PHENYTOIN 100 MG/4 ML UDC GT SCH ×2 (09:34→20:12)
[2022-11-27] MEDS: VITAMINS A AND D 5 GM UD PKT TP SCH ×3 (09:35)
[2022-11-27] MEDS: COD LIVER OIL/ZINC OXIDE OINT 113 GM TUBE TP SCH ×2 (09:35→20:12)
[2022-11-27] MEDS: REMEDY ESSENTIAL ZINC PASTE 113 GM TP SCH ×2 (09:35→20:12)
[2022-11-27 20:00] VITALS: TEMP 97.9
[2022-11-27] MEDS: MIRALAX 17 GM POWD.PACK GT SCH (20:12)
[2022-11-28] MEDS: BACLOFEN 10 MG TABLET GT SCH ×3 (06:00→22:16)
[2022-11-28] MEDS: ASCORBIC ACID 500 MG TABLET GT SCH (06:00)
[2022-11-28] MEDS: ARGININE/GLUTAMINE/CALCIUM BMB 1 EACH POWD.PACK GT SCH ×2 (06:00→17:08)
[2022-11-28] MEDS: ALBUTEROL SULFATE 2.5 MG/3 ML NEBU NEB SCH ×4 (07:15→19:07)
[2022-11-28] MEDS: HYDROGEN PEROXIDE 3% 118 ML BOTTLE TOP SCH ×2 (07:15→19:07)
[2022-11-28] MEDS: IPRATROPIUM BROMIDE 0.5 MG/2.5 ML NEBU NEB SCH ×4 (07:15→19:07)
[2022-11-28] MEDS: OMEPRAZOLE 20 MG CAPSULE.DR GT SCH ×2 (07:23→20:20)
[2022-11-28 08:00] VITALS: TEMP 98.4
[2022-11-28] MEDS: CHOLECALCIFEROL 400 UNITS TABLET GT SCH ×2 (08:16→20:20)
[2022-11-28] MEDS: CULTURELLE CAPSULE GT SCH ×2 (08:16→20:19)
[2022-11-28] MEDS: PROTEIN SUPPLEMENT (PROSTAT) 30 ML LIQUID GT SCH (08:16)
[2022-11-28] MEDS: COD LIVER OIL/ZINC OXIDE OINT 113 GM TUBE TP SCH ×2 (08:16→20:21)
[2022-11-28] MEDS: PHENYTOIN 100 MG/4 ML UDC GT SCH ×2 (08:16→20:19)
[2022-11-28] MEDS: VITAMINS A AND D 5 GM UD PKT TP SCH ×3 (08:16)
[2022-11-28] MEDS: PHENOBARBITAL 64.8 MG TABLET GT SCH ×2 (08:16→20:19)
[2022-11-28] MEDS: REMEDY ESSENTIAL ZINC PASTE 113 GM TP SCH ×2 (08:16→20:21)
[2022-11-28 20:00] VITALS: TEMP 98.2
[2022-11-28] MEDS: MIRALAX 17 GM POWD.PACK GT SCH (20:19)
[2022-11-28] MEDS: JEVITY 1.2 1000 ML LIQUID GT PRN (20:21)
[2022-11-29] MEDS: BACLOFEN 10 MG TABLET GT SCH ×3 (05:55→21:01)
[2022-11-29] MEDS: ARGININE/GLUTAMINE/CALCIUM BMB 1 EACH POWD.PACK GT SCH ×2 (05:55→17:45)
[2022-11-29] MEDS: OMEPRAZOLE 20 MG CAPSULE.DR GT SCH ×2 (05:56→21:00)
[2022-11-29] MEDS: ASCORBIC ACID 500 MG TABLET GT SCH (05:56)
[2022-11-29] MEDS: HYDROGEN PEROXIDE 3% 118 ML BOTTLE TOP SCH ×2 (07:53→19:09)
[2022-11-29] MEDS: ALBUTEROL SULFATE 2.5 MG/3 ML NEBU NEB SCH ×4 (07:53→19:08)
[2022-11-29] MEDS: IPRATROPIUM BROMIDE 0.5 MG/2.5 ML NEBU NEB SCH ×4 (07:53→19:08)
[2022-11-29 08:00] VITALS: TEMP 97.5
[2022-11-29] MEDS: PROTEIN SUPPLEMENT (PROSTAT) 30 ML LIQUID GT SCH (08:00)
[2022-11-29] MEDS: CULTURELLE CAPSULE GT SCH ×2 (09:32→20:43)
[2022-11-29] MEDS: PHENYTOIN 100 MG/4 ML UDC GT SCH ×2 (09:34→20:59)
[2022-11-29] MEDS: CHOLECALCIFEROL 400 UNITS TABLET GT SCH ×2 (09:37→21:01)
[2022-11-29] MEDS: PHENOBARBITAL 64.8 MG TABLET GT SCH ×2 (09:37→21:00)
[2022-11-29] MEDS: REMEDY ESSENTIAL ZINC PASTE 113 GM TP SCH ×2 (09:38→21:01)
[2022-11-29] MEDS: VITAMINS A AND D 5 GM UD PKT TP SCH ×3 (09:38)
[2022-11-29] MEDS: COD LIVER OIL/ZINC OXIDE OINT 113 GM TUBE TP SCH ×2 (09:38→21:01)
[2022-11-29 20:00] VITALS: TEMP 98.6
[2022-11-29] MEDS: JEVITY 1.2 1000 ML LIQUID GT PRN (20:43)
[2022-11-29] MEDS: MIRALAX 17 GM POWD.PACK GT SCH (21:00)
[2022-11-30] MEDS: ASCORBIC ACID 500 MG TABLET GT SCH (06:10)
[2022-11-30] MEDS: ARGININE/GLUTAMINE/CALCIUM BMB 1 EACH POWD.PACK GT SCH ×2 (06:10→17:25)
[2022-11-30] MEDS: BACLOFEN 10 MG TABLET GT SCH ×3 (06:10→21:02)
[2022-11-30] MEDS: OMEPRAZOLE 20 MG CAPSULE.DR GT SCH ×2 (06:11→20:50)
[2022-11-30] MEDS: HYDROGEN PEROXIDE 3% 118 ML BOTTLE TOP SCH ×2 (07:06→22:58)
[2022-11-30] MEDS: IPRATROPIUM BROMIDE 0.5 MG/2.5 ML NEBU NEB SCH ×4 (07:06→19:16)
[2022-11-30] MEDS: ALBUTEROL SULFATE 2.5 MG/3 ML NEBU NEB SCH ×4 (07:06→19:16)
[2022-11-30 08:00] VITALS: TEMP 97.6
[2022-11-30] MEDS: PROTEIN SUPPLEMENT (PROSTAT) 30 ML LIQUID GT SCH (08:00)
[2022-11-30] MEDS: CULTURELLE CAPSULE GT SCH ×2 (09:25→20:42)
[2022-11-30] MEDS: PHENYTOIN 100 MG/4 ML UDC GT SCH ×2 (09:25→20:50)
[2022-11-30] MEDS: PHENOBARBITAL 64.8 MG TABLET GT SCH ×2 (09:27→20:50)
[2022-11-30] MEDS: CHOLECALCIFEROL 400 UNITS TABLET GT SCH ×2 (09:29→20:50)
[2022-11-30] MEDS: REMEDY ESSENTIAL ZINC PASTE 113 GM TP SCH ×2 (09:30→20:51)
[2022-11-30] MEDS: VITAMINS A AND D 5 GM UD PKT TP SCH ×3 (09:30)
[2022-11-30] MEDS: COD LIVER OIL/ZINC OXIDE OINT 113 GM TUBE TP SCH ×2 (09:30→20:50)
[2022-11-30] MEDS: JEVITY 1.2 1000 ML LIQUID GT PRN (17:25)
[2022-11-30 20:00] VITALS: TEMP 97.8
[2022-11-30] MEDS: MIRALAX 17 GM POWD.PACK GT SCH (20:50)
[2022-12-01] MEDS: ARGININE/GLUTAMINE/CALCIUM BMB 1 EACH POWD.PACK GT SCH ×2 (05:12→17:49)
[2022-12-01] MEDS: BACLOFEN 10 MG TABLET GT SCH ×3 (05:13→22:27)
[2022-12-01] MEDS: ASCORBIC ACID 500 MG TABLET GT SCH (05:13)
[2022-12-01] MEDS: OMEPRAZOLE 20 MG CAPSULE.DR GT SCH ×2 (05:13→20:09)
[2022-12-01] MEDS: HYDROGEN PEROXIDE 3% 118 ML BOTTLE TOP SCH ×2 (07:10→19:05)
[2022-12-01] MEDS: ALBUTEROL SULFATE 2.5 MG/3 ML NEBU NEB SCH ×4 (07:10→19:05)
[2022-12-01] MEDS: IPRATROPIUM BROMIDE 0.5 MG/2.5 ML NEBU NEB SCH ×4 (07:10→19:04)
[2022-12-01] MEDS: PROTEIN SUPPLEMENT (PROSTAT) 30 ML LIQUID GT SCH (08:00)
[2022-12-01] MEDS: CULTURELLE CAPSULE GT SCH ×2 (09:04→20:08)
[2022-12-01] MEDS: CHOLECALCIFEROL 400 UNITS TABLET GT SCH ×2 (09:04→20:09)
[2022-12-01] MEDS: PHENYTOIN 100 MG/4 ML UDC GT SCH ×2 (09:04→20:08)
[2022-12-01] MEDS: PHENOBARBITAL 64.8 MG TABLET GT SCH ×2 (09:04→20:09)
[2022-12-01] MEDS: VITAMINS A AND D 5 GM UD PKT TP SCH ×3 (09:04→09:05)
[2022-12-01] MEDS: COD LIVER OIL/ZINC OXIDE OINT 113 GM TUBE TP SCH ×2 (09:04→20:10)
[2022-12-01] MEDS: REMEDY ESSENTIAL ZINC PASTE 113 GM TP SCH ×2 (09:04→20:10)
[2022-12-01 11:50] VITALS: TEMP 97.6
[2022-12-01] MEDS: MIRALAX 17 GM POWD.PACK GT SCH (20:09)
[2022-12-01 21:33] VITALS: TEMP 99.1
[2022-12-02] MEDS: ARGININE/GLUTAMINE/CALCIUM BMB 1 EACH POWD.PACK GT SCH ×2 (05:13→17:03)
[2022-12-02] MEDS: ASCORBIC ACID 500 MG TABLET GT SCH (05:14)
[2022-12-02] MEDS: BACLOFEN 10 MG TABLET GT SCH ×3 (05:14→21:01)
[2022-12-02] MEDS: OMEPRAZOLE 20 MG CAPSULE.DR GT SCH ×2 (05:32→21:00)
[2022-12-02] MEDS: JEVITY 1.2 1000 ML LIQUID GT PRN (05:33)
[2022-12-02] MEDS: IPRATROPIUM BROMIDE 0.5 MG/2.5 ML NEBU NEB SCH ×4 (07:18→19:03)
[2022-12-02] MEDS: ALBUTEROL SULFATE 2.5 MG/3 ML NEBU NEB SCH ×4 (07:18→19:03)
[2022-12-02 07:26] VITALS: TEMP 97.4
[2022-12-02] MEDS: HYDROGEN PEROXIDE 3% 118 ML BOTTLE TOP SCH ×2 (08:01→19:04)
[2022-12-02] MEDS: PROTEIN SUPPLEMENT (PROSTAT) 30 ML LIQUID GT SCH (08:32)
[2022-12-02] MEDS: PHENYTOIN 100 MG/4 ML UDC GT SCH ×2 (08:38→20:59)
[2022-12-02] MEDS: CULTURELLE CAPSULE GT SCH ×2 (08:38→21:00)
[2022-12-02] MEDS: CHOLECALCIFEROL 400 UNITS TABLET GT SCH ×2 (08:39→21:00)
[2022-12-02] MEDS: PHENOBARBITAL 64.8 MG TABLET GT SCH ×2 (08:39→21:04)
[2022-12-02] MEDS: VITAMINS A AND D 5 GM UD PKT TP SCH ×3 (08:42)
[2022-12-02] MEDS: REMEDY ESSENTIAL ZINC PASTE 113 GM TP SCH ×2 (08:42→21:01)
[2022-12-02] MEDS: COD LIVER OIL/ZINC OXIDE OINT 113 GM TUBE TP SCH ×2 (08:42→21:00)
[2022-12-02] MEDS: MIRALAX 17 GM POWD.PACK GT SCH (21:00)
[2022-12-02 22:47] VITALS: TEMP 97.8
[2022-12-03] MEDS: JEVITY 1.2 1000 ML LIQUID GT PRN ×2 (02:00→17:44)
[2022-12-03] MEDS: ARGININE/GLUTAMINE/CALCIUM BMB 1 EACH POWD.PACK GT SCH ×2 (06:11→17:39)
[2022-12-03] MEDS: OMEPRAZOLE 20 MG CAPSULE.DR GT SCH ×2 (06:11→20:23)
[2022-12-03] MEDS: BACLOFEN 10 MG TABLET GT SCH ×3 (06:11→22:31)
[2022-12-03] MEDS: ASCORBIC ACID 500 MG TABLET GT SCH (06:11)
[2022-12-03] MEDS: IPRATROPIUM BROMIDE 0.5 MG/2.5 ML NEBU NEB SCH ×4 (07:08→19:08)
[2022-12-03] MEDS: HYDROGEN PEROXIDE 3% 118 ML BOTTLE TOP SCH ×2 (07:08→19:08)
[2022-12-03] MEDS: ALBUTEROL SULFATE 2.5 MG/3 ML NEBU NEB SCH ×4 (07:08→19:08)
[2022-12-03 07:15] VITALS: TEMP 97.8
[2022-12-03] MEDS: PROTEIN SUPPLEMENT (PROSTAT) 30 ML LIQUID GT SCH (08:07)
[2022-12-03] MEDS: REMEDY ESSENTIAL ZINC PASTE 113 GM TP SCH ×2 (08:08→20:24)
[2022-12-03] MEDS: CULTURELLE CAPSULE GT SCH ×2 (08:08→20:22)
[2022-12-03] MEDS: VITAMINS A AND D 5 GM UD PKT TP SCH ×3 (08:08)
[2022-12-03] MEDS: COD LIVER OIL/ZINC OXIDE OINT 113 GM TUBE TP SCH ×2 (08:08→20:24)
[2022-12-03] MEDS: PHENYTOIN 100 MG/4 ML UDC GT SCH ×2 (08:08→20:23)
[2022-12-03] MEDS: PHENOBARBITAL 64.8 MG TABLET GT SCH ×2 (08:08→20:23)
[2022-12-03] MEDS: CHOLECALCIFEROL 400 UNITS TABLET GT SCH ×2 (08:08→20:24)
[2022-12-03] MEDS: MIRALAX 17 GM POWD.PACK GT SCH (20:23)
[2022-12-03 20:43] VITALS: TEMP 97.3
[2022-12-04] MEDS: ASCORBIC ACID 500 MG TABLET GT SCH (05:06)
[2022-12-04] MEDS: BACLOFEN 10 MG TABLET GT SCH ×3 (05:06→21:52)
[2022-12-04] MEDS: ARGININE/GLUTAMINE/CALCIUM BMB 1 EACH POWD.PACK GT SCH ×2 (05:06→18:09)
[2022-12-04] MEDS: OMEPRAZOLE 20 MG CAPSULE.DR GT SCH ×2 (05:30→20:29)
[2022-12-04] MEDS: HYDROGEN PEROXIDE 3% 118 ML BOTTLE TOP SCH ×2 (07:16→19:03)
[2022-12-04] MEDS: IPRATROPIUM BROMIDE 0.5 MG/2.5 ML NEBU NEB SCH ×4 (07:16→19:03)
[2022-12-04] MEDS: ALBUTEROL SULFATE 2.5 MG/3 ML NEBU NEB SCH ×4 (07:16→19:03)
[2022-12-04 08:00] VITALS: TEMP 98.2
[2022-12-04] MEDS: REMEDY ESSENTIAL ZINC PASTE 113 GM TP SCH ×2 (08:38→20:29)
[2022-12-04] MEDS: VITAMINS A AND D 5 GM UD PKT TP SCH ×3 (08:38)
[2022-12-04] MEDS: PHENOBARBITAL 64.8 MG TABLET GT SCH ×2 (08:38→20:27)
[2022-12-04] MEDS: CHOLECALCIFEROL 400 UNITS TABLET GT SCH ×2 (08:38→20:29)
[2022-12-04] MEDS: CULTURELLE CAPSULE GT SCH ×2 (08:38→20:27)
[2022-12-04] MEDS: PHENYTOIN 100 MG/4 ML UDC GT SCH ×2 (08:38→20:27)
[2022-12-04] MEDS: PROTEIN SUPPLEMENT (PROSTAT) 30 ML LIQUID GT SCH (08:38)
[2022-12-04] MEDS: COD LIVER OIL/ZINC OXIDE OINT 113 GM TUBE TP SCH ×2 (08:38→20:29)
[2022-12-04] MEDS: MIRALAX 17 GM POWD.PACK GT SCH (20:27)
[2022-12-04 21:45] VITALS: TEMP 98.4
[2022-12-04] MEDS: JEVITY 1.2 1000 ML LIQUID GT PRN (21:52)
[2022-12-05] MEDS: BACLOFEN 10 MG TABLET GT SCH ×3 (06:00→22:00)
[2022-12-05] MEDS: ARGININE/GLUTAMINE/CALCIUM BMB 1 EACH POWD.PACK GT SCH ×2 (06:00→18:55)
[2022-12-05] MEDS: ASCORBIC ACID 500 MG TABLET GT SCH (06:00)
[2022-12-05] MEDS: ALBUTEROL SULFATE 2.5 MG/3 ML NEBU NEB SCH ×4 (07:08→19:21)
[2022-12-05] MEDS: HYDROGEN PEROXIDE 3% 118 ML BOTTLE TOP SCH ×2 (07:08→19:21)
[2022-12-05] MEDS: IPRATROPIUM BROMIDE 0.5 MG/2.5 ML NEBU NEB SCH ×4 (07:08→19:21)
[2022-12-05] MEDS: OMEPRAZOLE 20 MG CAPSULE.DR GT SCH ×2 (07:09→20:09)
[2022-12-05 08:00] VITALS: TEMP 98.3
[2022-12-05] MEDS: PROTEIN SUPPLEMENT (PROSTAT) 30 ML LIQUID GT SCH (08:00)
[2022-12-05] MEDS: CHOLECALCIFEROL 400 UNITS TABLET GT SCH ×2 (09:02→20:09)
[2022-12-05] MEDS: CULTURELLE CAPSULE GT SCH ×2 (09:02→20:09)
[2022-12-05] MEDS: PHENOBARBITAL 64.8 MG TABLET GT SCH ×2 (09:02→20:09)
[2022-12-05] MEDS: COD LIVER OIL/ZINC OXIDE OINT 113 GM TUBE TP SCH ×2 (09:02→20:10)
[2022-12-05] MEDS: PHENYTOIN 100 MG/4 ML UDC GT SCH ×2 (09:02→20:09)
[2022-12-05] MEDS: VITAMINS A AND D 5 GM UD PKT TP SCH ×3 (09:03)
[2022-12-05] MEDS: REMEDY ESSENTIAL ZINC PASTE 113 GM TP SCH ×2 (09:03→20:10)
[2022-12-05] MEDS: JEVITY 1.2 1000 ML LIQUID GT PRN (16:41)
[2022-12-05 20:00] VITALS: TEMP 97.4
[2022-12-05] MEDS: MIRALAX 17 GM POWD.PACK GT SCH (20:09)
[2022-12-06] MEDS: BACLOFEN 10 MG TABLET GT SCH ×2 (05:19→13:36)
[2022-12-06] MEDS: ASCORBIC ACID 500 MG TABLET GT SCH (05:19)
[2022-12-06] MEDS: ARGININE/GLUTAMINE/CALCIUM BMB 1 EACH POWD.PACK GT SCH ×2 (05:19→17:28)
[2022-12-06] MEDS: OMEPRAZOLE 20 MG CAPSULE.DR GT SCH (06:13)
[2022-12-06] MEDS: IPRATROPIUM BROMIDE 0.5 MG/2.5 ML NEBU NEB SCH ×4 (07:05→19:07)
[2022-12-06] MEDS: HYDROGEN PEROXIDE 3% 118 ML BOTTLE TOP SCH ×2 (07:05→19:07)
[2022-12-06] MEDS: ALBUTEROL SULFATE 2.5 MG/3 ML NEBU NEB SCH ×4 (07:05→19:07)
[2022-12-06 08:00] VITALS: TEMP 97.5
[2022-12-06] MEDS: CULTURELLE CAPSULE GT SCH (08:33)
[2022-12-06] MEDS: PROTEIN SUPPLEMENT (PROSTAT) 30 ML LIQUID GT SCH (08:33)
[2022-12-06] MEDS: VITAMINS A AND D 5 GM UD PKT TP SCH ×3 (08:34)
[2022-12-06] MEDS: PHENOBARBITAL 64.8 MG TABLET GT SCH (08:34)
[2022-12-06] MEDS: CHOLECALCIFEROL 400 UNITS TABLET GT SCH (08:34)
[2022-12-06] MEDS: COD LIVER OIL/ZINC OXIDE OINT 113 GM TUBE TP SCH (08:34)
[2022-12-06] MEDS: REMEDY ESSENTIAL ZINC PASTE 113 GM TP SCH (08:34)
[2022-12-06] MEDS: PHENYTOIN 100 MG/4 ML UDC GT SCH (08:34)
[2022-12-06] MEDS: JEVITY 1.2 1000 ML LIQUID GT PRN (13:36)
[2022-12-06 20:00] VITALS: TEMP 97.6
[2022-12-07] MEDS: ARGININE/GLUTAMINE/CALCIUM BMB 1 EACH POWD.PACK GT SCH ×2 (06:00→18:00)
[2022-12-07 07:45] VITALS: TEMP 98.9
[2022-12-07] MEDS: IPRATROPIUM BROMIDE 0.5 MG/2.5 ML NEBU NEB SCH ×4 (07:52→19:06)
[2022-12-07] MEDS: ALBUTEROL SULFATE 2.5 MG/3 ML NEBU NEB SCH ×4 (07:52→19:06)
[2022-12-07] MEDS: HYDROGEN PEROXIDE 3% 118 ML BOTTLE TOP SCH ×2 (07:52→19:06)
[2022-12-07] MEDS: PROTEIN SUPPLEMENT (PROSTAT) 30 ML LIQUID GT SCH (08:00)
[2022-12-07] MEDS: CHOLECALCIFEROL 400 UNITS TABLET GT SCH ×2 (09:00→20:22)
[2022-12-07] MEDS: COD LIVER OIL/ZINC OXIDE OINT 113 GM TUBE TP SCH ×2 (09:00→20:22)
[2022-12-07] MEDS: REMEDY ESSENTIAL ZINC PASTE 113 GM TP SCH ×2 (09:00→20:22)
[2022-12-07] MEDS: PHENOBARBITAL 64.8 MG TABLET GT SCH ×2 (09:00→20:22)
[2022-12-07] MEDS: PHENYTOIN 100 MG/4 ML UDC GT SCH ×2 (09:00→20:21)
[2022-12-07] MEDS: CULTURELLE CAPSULE GT SCH ×2 (09:00→20:20)
[2022-12-07] MEDS: VITAMINS A AND D 5 GM UD PKT TP SCH ×3 (09:37)
[2022-12-07] MEDS: BACLOFEN 10 MG TABLET GT SCH ×2 (13:06→22:54)
[2022-12-07] MEDS: JEVITY 1.2 1000 ML LIQUID GT PRN (17:24)
[2022-12-07 20:00] VITALS: TEMP 97.8
[2022-12-07] MEDS: ACETAMINOPHEN 650 MG/20 ML UDC- SA PATIENTS-PAIN ONLY GT PRN (20:00)
[2022-12-07] MEDS: OMEPRAZOLE 20 MG CAPSULE.DR GT SCH (21:00)
[2022-12-07] MEDS: MIRALAX 17 GM POWD.PACK GT SCH (21:00)
[2022-12-07] MEDS: chlorproMAZINE 25 MG TABLET GT PRN (22:55)
[2022-12-08] MEDS: ASCORBIC ACID 500 MG TABLET GT SCH ×2 (05:26→06:00)
[2022-12-08] MEDS: OMEPRAZOLE 20 MG CAPSULE.DR GT SCH ×2 (05:26→20:57)
[2022-12-08] MEDS: ARGININE/GLUTAMINE/CALCIUM BMB 1 EACH POWD.PACK GT SCH ×2 (05:26→17:02)
[2022-12-08] MEDS: BACLOFEN 10 MG TABLET GT SCH ×3 (05:26→21:04)
[2022-12-08] MEDS: IPRATROPIUM BROMIDE 0.5 MG/2.5 ML NEBU NEB SCH ×4 (07:35→19:03)
[2022-12-08] MEDS: ALBUTEROL SULFATE 2.5 MG/3 ML NEBU NEB SCH ×4 (07:35→19:03)
[2022-12-08 07:53] VITALS: TEMP 97.4
[2022-12-08] MEDS: PROTEIN SUPPLEMENT (PROSTAT) 30 ML LIQUID GT SCH (08:32)
[2022-12-08] MEDS: PHENYTOIN 100 MG/4 ML UDC GT SCH ×2 (08:34→21:04)
[2022-12-08] MEDS: CULTURELLE CAPSULE GT SCH ×2 (08:34→21:04)
[2022-12-08] MEDS: VITAMINS A AND D 5 GM UD PKT TP SCH ×3 (08:35)
[2022-12-08] MEDS: REMEDY ESSENTIAL ZINC PASTE 113 GM TP SCH ×2 (08:35→20:57)
[2022-12-08] MEDS: COD LIVER OIL/ZINC OXIDE OINT 113 GM TUBE TP SCH ×2 (08:35→20:57)
[2022-12-08] MEDS: PHENOBARBITAL 64.8 MG TABLET GT SCH ×2 (08:35→21:04)
[2022-12-08] MEDS: CHOLECALCIFEROL 400 UNITS TABLET GT SCH ×2 (08:35→20:57)
[2022-12-08] MEDS: HYDROGEN PEROXIDE 3% 118 ML BOTTLE TOP SCH ×2 (08:45→19:03)
[2022-12-08] MEDS: JEVITY 1.2 1000 ML LIQUID GT PRN (17:34)
[2022-12-08 20:56] VITALS: TEMP 98.2
[2022-12-08] MEDS: MIRALAX 17 GM POWD.PACK GT SCH (20:57)
[2022-12-09] MEDS: OMEPRAZOLE 20 MG CAPSULE.DR GT SCH ×2 (05:19→20:01)
[2022-12-09] MEDS: BACLOFEN 10 MG TABLET GT SCH ×3 (05:19→22:00)
[2022-12-09] MEDS: ASCORBIC ACID 500 MG TABLET GT SCH (05:19)
[2022-12-09] MEDS: ARGININE/GLUTAMINE/CALCIUM BMB 1 EACH POWD.PACK GT SCH ×2 (05:19→17:38)
[2022-12-09] MEDS: IPRATROPIUM BROMIDE 0.5 MG/2.5 ML NEBU NEB SCH ×4 (07:13→19:15)
[2022-12-09] MEDS: ALBUTEROL SULFATE 2.5 MG/3 ML NEBU NEB SCH ×4 (07:14→19:15)
[2022-12-09 07:24] VITALS: TEMP 98
[2022-12-09] MEDS: PROTEIN SUPPLEMENT (PROSTAT) 30 ML LIQUID GT SCH (08:00)
[2022-12-09] MEDS: HYDROGEN PEROXIDE 3% 118 ML BOTTLE TOP SCH ×2 (09:00→19:15)
[2022-12-09] MEDS: COD LIVER OIL/ZINC OXIDE OINT 113 GM TUBE TP SCH ×2 (09:41→20:03)
[2022-12-09] MEDS: PHENOBARBITAL 64.8 MG TABLET GT SCH ×2 (09:41→20:01)
[2022-12-09] MEDS: PHENYTOIN 100 MG/4 ML UDC GT SCH ×2 (09:41→20:01)
[2022-12-09] MEDS: CHOLECALCIFEROL 400 UNITS TABLET GT SCH ×2 (09:41→20:03)
[2022-12-09] MEDS: VITAMINS A AND D 5 GM UD PKT TP SCH ×3 (09:41→09:42)
[2022-12-09] MEDS: CULTURELLE CAPSULE GT SCH ×2 (09:41→20:01)
[2022-12-09] MEDS: REMEDY ESSENTIAL ZINC PASTE 113 GM TP SCH ×2 (09:41→20:03)
[2022-12-09] MEDS: JEVITY 1.2 1000 ML LIQUID GT PRN (17:38)
[2022-12-09 19:50] VITALS: TEMP 98.8
[2022-12-09] MEDS: MIRALAX 17 GM POWD.PACK GT SCH (20:01)
[2022-12-10] MEDS: BACLOFEN 10 MG TABLET GT SCH ×3 (06:15→22:43)
[2022-12-10] MEDS: OMEPRAZOLE 20 MG CAPSULE.DR GT SCH ×2 (06:15→20:19)
[2022-12-10] MEDS: ASCORBIC ACID 500 MG TABLET GT SCH (06:15)
[2022-12-10] MEDS: ARGININE/GLUTAMINE/CALCIUM BMB 1 EACH POWD.PACK GT SCH ×2 (06:15→17:14)
[2022-12-10 07:23] VITALS: TEMP 97.5
[2022-12-10] MEDS: ALBUTEROL SULFATE 2.5 MG/3 ML NEBU NEB SCH ×4 (07:45→19:06)
[2022-12-10] MEDS: IPRATROPIUM BROMIDE 0.5 MG/2.5 ML NEBU NEB SCH ×4 (07:45→19:06)
[2022-12-10] MEDS: HYDROGEN PEROXIDE 3% 118 ML BOTTLE TOP SCH ×2 (07:45→19:06)
[2022-12-10] MEDS: PROTEIN SUPPLEMENT (PROSTAT) 30 ML LIQUID GT SCH (08:00)
[2022-12-10] MEDS: PHENYTOIN 100 MG/4 ML UDC GT SCH ×2 (09:27→20:19)
[2022-12-10] MEDS: COD LIVER OIL/ZINC OXIDE OINT 113 GM TUBE TP SCH ×2 (09:28→20:20)
[2022-12-10] MEDS: CHOLECALCIFEROL 400 UNITS TABLET GT SCH ×2 (09:28→20:19)
[2022-12-10] MEDS: REMEDY ESSENTIAL ZINC PASTE 113 GM TP SCH ×2 (09:28→20:20)
[2022-12-10] MEDS: VITAMINS A AND D 5 GM UD PKT TP SCH ×3 (09:28)
[2022-12-10] MEDS: PHENOBARBITAL 64.8 MG TABLET GT SCH ×2 (09:28→20:19)
[2022-12-10] MEDS: CULTURELLE CAPSULE GT SCH ×2 (09:30→20:19)
[2022-12-10] MEDS: JEVITY 1.2 1000 ML LIQUID GT PRN (17:15)
[2022-12-10 19:52] VITALS: TEMP 97.9
[2022-12-10] MEDS: MIRALAX 17 GM POWD.PACK GT SCH (20:19)
[2022-12-11] MEDS: BACLOFEN 10 MG TABLET GT SCH ×3 (05:21→21:16)
[2022-12-11] MEDS: ASCORBIC ACID 500 MG TABLET GT SCH (05:21)
[2022-12-11] MEDS: ARGININE/GLUTAMINE/CALCIUM BMB 1 EACH POWD.PACK GT SCH ×2 (05:21→18:03)
[2022-12-11] MEDS: ALBUTEROL SULFATE 2.5 MG/3 ML NEBU NEB SCH ×4 (07:07→19:12)
[2022-12-11] MEDS: IPRATROPIUM BROMIDE 0.5 MG/2.5 ML NEBU NEB SCH ×4 (07:07→19:12)
[2022-12-11 07:25] VITALS: TEMP 97.6
[2022-12-11] MEDS: HYDROGEN PEROXIDE 3% 118 ML BOTTLE TOP SCH ×2 (08:01→19:12)
[2022-12-11] MEDS: PROTEIN SUPPLEMENT (PROSTAT) 30 ML LIQUID GT SCH (08:55)
[2022-12-11] MEDS: CULTURELLE CAPSULE GT SCH ×2 (09:06→20:07)
[2022-12-11] MEDS: PHENYTOIN 100 MG/4 ML UDC GT SCH ×2 (09:06→20:07)
[2022-12-11] MEDS: VITAMINS A AND D 5 GM UD PKT TP SCH ×3 (09:08→09:09)
[2022-12-11] MEDS: PHENOBARBITAL 64.8 MG TABLET GT SCH ×2 (09:08→20:10)
[2022-12-11] MEDS: CHOLECALCIFEROL 400 UNITS TABLET GT SCH ×2 (09:08→20:07)
[2022-12-11] MEDS: REMEDY ESSENTIAL ZINC PASTE 113 GM TP SCH ×2 (09:08→20:07)
[2022-12-11] MEDS: COD LIVER OIL/ZINC OXIDE OINT 113 GM TUBE TP SCH ×2 (09:08→20:07)
[2022-12-11] MEDS: JEVITY 1.2 1000 ML LIQUID GT PRN (16:41)
[2022-12-11] MEDS: OMEPRAZOLE 20 MG CAPSULE.DR GT SCH ×2 (20:05→20:07)
[2022-12-11] MEDS: MIRALAX 17 GM POWD.PACK GT SCH (20:07)
[2022-12-11 20:34] VITALS: TEMP 97.6
[2022-12-12] MEDS: BACLOFEN 10 MG TABLET GT SCH ×3 (05:11→22:48)
[2022-12-12] MEDS: ASCORBIC ACID 500 MG TABLET GT SCH (05:11)
[2022-12-12] MEDS: ARGININE/GLUTAMINE/CALCIUM BMB 1 EACH POWD.PACK GT SCH ×2 (05:11→17:01)
[2022-12-12] MEDS: OMEPRAZOLE 20 MG CAPSULE.DR GT SCH ×2 (05:58→20:06)
[2022-12-12 07:27] VITALS: TEMP 97.4
[2022-12-12] MEDS: PROTEIN SUPPLEMENT (PROSTAT) 30 ML LIQUID GT SCH (08:00)
[2022-12-12] MEDS: HYDROGEN PEROXIDE 3% 118 ML BOTTLE TOP SCH ×2 (08:29→19:30)
[2022-12-12] MEDS: IPRATROPIUM BROMIDE 0.5 MG/2.5 ML NEBU NEB SCH ×4 (08:29→19:30)
[2022-12-12] MEDS: ALBUTEROL SULFATE 2.5 MG/3 ML NEBU NEB SCH ×4 (08:29→19:30)
[2022-12-12] MEDS: CHOLECALCIFEROL 400 UNITS TABLET GT SCH ×2 (09:05→20:06)
[2022-12-12] MEDS: PHENYTOIN 100 MG/4 ML UDC GT SCH ×2 (09:05→20:06)
[2022-12-12] MEDS: VITAMINS A AND D 5 GM UD PKT TP SCH ×3 (09:05)
[2022-12-12] MEDS: PHENOBARBITAL 64.8 MG TABLET GT SCH ×2 (09:05→20:06)
[2022-12-12] MEDS: CULTURELLE CAPSULE GT SCH ×2 (09:05→20:06)
[2022-12-12] MEDS: COD LIVER OIL/ZINC OXIDE OINT 113 GM TUBE TP SCH ×2 (09:05→20:07)
[2022-12-12] MEDS: REMEDY ESSENTIAL ZINC PASTE 113 GM TP SCH ×2 (09:05→20:07)
[2022-12-12] MEDS: JEVITY 1.2 1000 ML LIQUID GT PRN (13:49)
[2022-12-12 20:00] VITALS: TEMP 98.2
[2022-12-12] MEDS: MIRALAX 17 GM POWD.PACK GT SCH (20:06)
[2022-12-13] MEDS: ASCORBIC ACID 500 MG TABLET GT SCH (05:18)
[2022-12-13] MEDS: ARGININE/GLUTAMINE/CALCIUM BMB 1 EACH POWD.PACK GT SCH ×2 (05:18→17:35)
[2022-12-13] MEDS: BACLOFEN 10 MG TABLET GT SCH ×3 (05:18→21:18)
[2022-12-13] MEDS: OMEPRAZOLE 20 MG CAPSULE.DR GT SCH ×2 (05:50→21:18)
[2022-12-13] MEDS: ALBUTEROL SULFATE 2.5 MG/3 ML NEBU NEB SCH ×4 (07:35→19:08)
[2022-12-13] MEDS: IPRATROPIUM BROMIDE 0.5 MG/2.5 ML NEBU NEB SCH ×4 (07:35→19:08)
[2022-12-13 07:37] VITALS: TEMP 97.6
[2022-12-13] MEDS: PROTEIN SUPPLEMENT (PROSTAT) 30 ML LIQUID GT SCH (08:46)
[2022-12-13] MEDS: HYDROGEN PEROXIDE 3% 118 ML BOTTLE TOP SCH ×2 (08:48→19:08)
[2022-12-13] MEDS: CULTURELLE CAPSULE GT SCH ×2 (08:48→21:13)
[2022-12-13] MEDS: PHENYTOIN 100 MG/4 ML UDC GT SCH ×2 (08:49→21:14)
[2022-12-13] MEDS: COD LIVER OIL/ZINC OXIDE OINT 113 GM TUBE TP SCH ×2 (08:51→21:18)
[2022-12-13] MEDS: CHOLECALCIFEROL 400 UNITS TABLET GT SCH ×2 (08:51→21:18)
[2022-12-13] MEDS: REMEDY ESSENTIAL ZINC PASTE 113 GM TP SCH ×2 (08:51→21:18)
[2022-12-13] MEDS: VITAMINS A AND D 5 GM UD PKT TP SCH ×3 (08:51)
[2022-12-13] MEDS: PHENOBARBITAL 64.8 MG TABLET GT SCH ×2 (08:51→21:00)
[2022-12-13] MEDS: JEVITY 1.2 1000 ML LIQUID GT PRN (15:20)
[2022-12-13 20:00] VITALS: TEMP 97.4
[2022-12-13] MEDS: NYSTATIN CREAM 30 GM TUBE TP SCH (21:10)
[2022-12-13] MEDS: MIRALAX 17 GM POWD.PACK GT SCH (21:18)
[2022-12-14] MEDS: ASCORBIC ACID 500 MG TABLET GT SCH (05:45)
[2022-12-14] MEDS: BACLOFEN 10 MG TABLET GT SCH ×3 (05:45→21:36)
[2022-12-14] MEDS: OMEPRAZOLE 20 MG CAPSULE.DR GT SCH ×2 (05:45→21:34)
[2022-12-14] MEDS: ARGININE/GLUTAMINE/CALCIUM BMB 1 EACH POWD.PACK GT SCH ×2 (06:02→18:03)
[2022-12-14] MEDS: IPRATROPIUM BROMIDE 0.5 MG/2.5 ML NEBU NEB SCH ×4 (07:15→19:26)
[2022-12-14] MEDS: ALBUTEROL SULFATE 2.5 MG/3 ML NEBU NEB SCH ×4 (07:15→19:26)
[2022-12-14 08:00] VITALS: TEMP 97.5
[2022-12-14] MEDS: PROTEIN SUPPLEMENT (PROSTAT) 30 ML LIQUID GT SCH (08:34)
[2022-12-14] MEDS: PHENYTOIN 100 MG/4 ML UDC GT SCH ×2 (08:36→21:30)
[2022-12-14] MEDS: CULTURELLE CAPSULE GT SCH ×2 (08:36→21:30)
[2022-12-14] MEDS: PHENOBARBITAL 64.8 MG TABLET GT SCH ×2 (08:39→21:31)
[2022-12-14] MEDS: CHOLECALCIFEROL 400 UNITS TABLET GT SCH ×2 (08:39→21:35)
[2022-12-14] MEDS: VITAMINS A AND D 5 GM UD PKT TP SCH ×3 (08:40)
[2022-12-14] MEDS: REMEDY ESSENTIAL ZINC PASTE 113 GM TP SCH ×2 (08:40→21:36)
[2022-12-14] MEDS: NYSTATIN CREAM 30 GM TUBE TP SCH ×2 (08:40→21:36)
[2022-12-14] MEDS: COD LIVER OIL/ZINC OXIDE OINT 113 GM TUBE TP SCH ×2 (08:40→21:36)
[2022-12-14] MEDS: HYDROGEN PEROXIDE 3% 118 ML BOTTLE TOP SCH ×2 (09:00→19:26)
[2022-12-14] MEDS: JEVITY 1.2 1000 ML LIQUID GT PRN (14:59)
[2022-12-14 20:00] VITALS: TEMP 98
[2022-12-14] MEDS: MIRALAX 17 GM POWD.PACK GT SCH (21:32)
[2022-12-15] MEDS: ASCORBIC ACID 500 MG TABLET GT SCH (05:11)
[2022-12-15] MEDS: BACLOFEN 10 MG TABLET GT SCH ×3 (05:11→21:07)
[2022-12-15] MEDS: ARGININE/GLUTAMINE/CALCIUM BMB 1 EACH POWD.PACK GT SCH ×2 (05:11→18:11)
[2022-12-15] MEDS: OMEPRAZOLE 20 MG CAPSULE.DR GT SCH ×2 (07:12→21:06)
[2022-12-15] MEDS: HYDROGEN PEROXIDE 3% 118 ML BOTTLE TOP SCH ×2 (07:17→19:12)
[2022-12-15] MEDS: IPRATROPIUM BROMIDE 0.5 MG/2.5 ML NEBU NEB SCH ×4 (07:17→19:12)
[2022-12-15] MEDS: ALBUTEROL SULFATE 2.5 MG/3 ML NEBU NEB SCH ×4 (07:17→19:12)
[2022-12-15 07:22] VITALS: TEMP 98.2
[2022-12-15] MEDS: PROTEIN SUPPLEMENT (PROSTAT) 30 ML LIQUID GT SCH (08:32)
[2022-12-15] MEDS: CULTURELLE CAPSULE GT SCH ×2 (08:32→21:06)
[2022-12-15] MEDS: COD LIVER OIL/ZINC OXIDE OINT 113 GM TUBE TP SCH ×2 (08:32→21:07)
[2022-12-15] MEDS: PHENYTOIN 100 MG/4 ML UDC GT SCH ×2 (08:32→21:06)
[2022-12-15] MEDS: PHENOBARBITAL 64.8 MG TABLET GT SCH ×2 (08:32→21:06)
[2022-12-15] MEDS: CHOLECALCIFEROL 400 UNITS TABLET GT SCH ×2 (08:32→21:06)
[2022-12-15] MEDS: REMEDY ESSENTIAL ZINC PASTE 113 GM TP SCH ×2 (08:33→21:07)
[2022-12-15] MEDS: VITAMINS A AND D 5 GM UD PKT TP SCH ×3 (08:33)
[2022-12-15] MEDS: NYSTATIN CREAM 30 GM TUBE TP SCH ×2 (08:33→21:07)
[2022-12-15] MEDS: JEVITY 1.2 1000 ML LIQUID GT PRN (18:11)
[2022-12-15 20:00] VITALS: TEMP 97.4
[2022-12-15] MEDS: MIRALAX 17 GM POWD.PACK GT SCH (21:06)
[2022-12-16] MEDS: ARGININE/GLUTAMINE/CALCIUM BMB 1 EACH POWD.PACK GT SCH ×2 (05:34→17:22)
[2022-12-16] MEDS: ASCORBIC ACID 500 MG TABLET GT SCH (05:35)
[2022-12-16] MEDS: BACLOFEN 10 MG TABLET GT SCH ×3 (05:35→21:51)
[2022-12-16] MEDS: OMEPRAZOLE 20 MG CAPSULE.DR GT SCH ×2 (05:35→20:42)
[2022-12-16 07:27] VITALS: TEMP 97.6
[2022-12-16] MEDS: ALBUTEROL SULFATE 2.5 MG/3 ML NEBU NEB SCH ×4 (07:27→19:31)
[2022-12-16] MEDS: IPRATROPIUM BROMIDE 0.5 MG/2.5 ML NEBU NEB SCH ×4 (07:27→19:31)
[2022-12-16] MEDS: NYSTATIN CREAM 30 GM TUBE TP SCH ×2 (08:23→20:42)
[2022-12-16] MEDS: PHENYTOIN 100 MG/4 ML UDC GT SCH ×2 (08:23→20:42)
[2022-12-16] MEDS: PHENOBARBITAL 64.8 MG TABLET GT SCH ×2 (08:23→20:42)
[2022-12-16] MEDS: COD LIVER OIL/ZINC OXIDE OINT 113 GM TUBE TP SCH ×2 (08:23→20:42)
[2022-12-16] MEDS: PROTEIN SUPPLEMENT (PROSTAT) 30 ML LIQUID GT SCH (08:23)
[2022-12-16] MEDS: CULTURELLE CAPSULE GT SCH ×2 (08:23→20:42)
[2022-12-16] MEDS: REMEDY ESSENTIAL ZINC PASTE 113 GM TP SCH ×2 (08:23→20:42)
[2022-12-16] MEDS: CHOLECALCIFEROL 400 UNITS TABLET GT SCH ×2 (08:23→20:42)
[2022-12-16] MEDS: VITAMINS A AND D 5 GM UD PKT TP SCH ×3 (08:24)
[2022-12-16] MEDS: HYDROGEN PEROXIDE 3% 118 ML BOTTLE TOP SCH ×2 (08:54→19:31)
[2022-12-16] MEDS: JEVITY 1.2 1000 ML LIQUID GT PRN (15:01)
[2022-12-16 20:00] VITALS: TEMP 97.9
[2022-12-16] MEDS: MIRALAX 17 GM POWD.PACK GT SCH (20:42)
[2022-12-17] MEDS: ARGININE/GLUTAMINE/CALCIUM BMB 1 EACH POWD.PACK GT SCH ×2 (05:10→18:11)
[2022-12-17] MEDS: BACLOFEN 10 MG TABLET GT SCH ×3 (05:11→21:27)
[2022-12-17] MEDS: ASCORBIC ACID 500 MG TABLET GT SCH (05:11)
[2022-12-17] MEDS: OMEPRAZOLE 20 MG CAPSULE.DR GT SCH ×2 (05:41→20:01)
[2022-12-17 07:29] VITALS: TEMP 97.6
[2022-12-17] MEDS: ALBUTEROL SULFATE 2.5 MG/3 ML NEBU NEB SCH ×4 (07:46→19:16)
[2022-12-17] MEDS: IPRATROPIUM BROMIDE 0.5 MG/2.5 ML NEBU NEB SCH ×4 (07:46→19:16)
[2022-12-17] MEDS: HYDROGEN PEROXIDE 3% 118 ML BOTTLE TOP SCH ×3 (07:47→19:16)
[2022-12-17] MEDS: PROTEIN SUPPLEMENT (PROSTAT) 30 ML LIQUID GT SCH (08:00)
[2022-12-17] MEDS: PHENYTOIN 100 MG/4 ML UDC GT SCH ×2 (09:55→20:00)
[2022-12-17] MEDS: CHOLECALCIFEROL 400 UNITS TABLET GT SCH ×2 (09:55→20:01)
[2022-12-17] MEDS: CULTURELLE CAPSULE GT SCH ×2 (09:55→20:00)
[2022-12-17] MEDS: PHENOBARBITAL 64.8 MG TABLET GT SCH ×2 (09:55→20:01)
[2022-12-17] MEDS: REMEDY ESSENTIAL ZINC PASTE 113 GM TP SCH ×2 (09:56→20:02)
[2022-12-17] MEDS: VITAMINS A AND D 5 GM UD PKT TP SCH ×3 (09:56)
[2022-12-17] MEDS: NYSTATIN CREAM 30 GM TUBE TP SCH ×2 (09:56→20:02)
[2022-12-17] MEDS: COD LIVER OIL/ZINC OXIDE OINT 113 GM TUBE TP SCH ×2 (09:56→20:02)
[2022-12-17 11:37] VITALS: O2SAT 98
[2022-12-17] MEDS: JEVITY 1.2 1000 ML LIQUID GT PRN (18:25)
[2022-12-17 20:00] VITALS: TEMP 98.3
[2022-12-17] MEDS: MIRALAX 17 GM POWD.PACK GT SCH (20:01)
[2022-12-18] MEDS: ARGININE/GLUTAMINE/CALCIUM BMB 1 EACH POWD.PACK GT SCH ×2 (05:14→17:46)
[2022-12-18] MEDS: BACLOFEN 10 MG TABLET GT SCH ×3 (05:14→21:50)
[2022-12-18] MEDS: ASCORBIC ACID 500 MG TABLET GT SCH (05:14)
[2022-12-18] MEDS: OMEPRAZOLE 20 MG CAPSULE.DR GT SCH ×2 (05:46→21:32)
[2022-12-18] MEDS: IPRATROPIUM BROMIDE 0.5 MG/2.5 ML NEBU NEB SCH ×4 (07:24→19:01)
[2022-12-18] MEDS: HYDROGEN PEROXIDE 3% 118 ML BOTTLE TOP SCH ×2 (07:24→19:01)
[2022-12-18] MEDS: ALBUTEROL SULFATE 2.5 MG/3 ML NEBU NEB SCH ×4 (07:24→19:01)
[2022-12-18 08:00] VITALS: TEMP 97.8
[2022-12-18] MEDS: PHENYTOIN 100 MG/4 ML UDC GT SCH ×2 (08:21→21:31)
[2022-12-18] MEDS: PROTEIN SUPPLEMENT (PROSTAT) 30 ML LIQUID GT SCH (08:21)
[2022-12-18] MEDS: CHOLECALCIFEROL 400 UNITS TABLET GT SCH ×2 (08:21→21:32)
[2022-12-18] MEDS: CULTURELLE CAPSULE GT SCH ×2 (08:21→21:36)
[2022-12-18] MEDS: PHENOBARBITAL 64.8 MG TABLET GT SCH ×2 (08:21→21:31)
[2022-12-18] MEDS: COD LIVER OIL/ZINC OXIDE OINT 113 GM TUBE TP SCH ×2 (08:22→21:32)
[2022-12-18] MEDS: REMEDY ESSENTIAL ZINC PASTE 113 GM TP SCH ×2 (08:22→21:33)
[2022-12-18] MEDS: VITAMINS A AND D 5 GM UD PKT TP SCH ×3 (08:22)
[2022-12-18] MEDS: NYSTATIN CREAM 30 GM TUBE TP SCH ×2 (08:22→21:33)
[2022-12-18] MEDS: JEVITY 1.2 1000 ML LIQUID GT PRN (12:15)
[2022-12-18 20:00] VITALS: TEMP 97.5
[2022-12-18] MEDS: MIRALAX 17 GM POWD.PACK GT SCH (21:31)
[2022-12-19] MEDS: ARGININE/GLUTAMINE/CALCIUM BMB 1 EACH POWD.PACK GT SCH ×2 (05:03→17:32)
[2022-12-19] MEDS: ASCORBIC ACID 500 MG TABLET GT SCH (05:03)
[2022-12-19] MEDS: BACLOFEN 10 MG TABLET GT SCH ×3 (05:03→21:09)
[2022-12-19] MEDS: OMEPRAZOLE 20 MG CAPSULE.DR GT SCH ×2 (05:50→21:09)
[2022-12-19] MEDS: HYDROGEN PEROXIDE 3% 118 ML BOTTLE TOP SCH ×2 (07:53→19:07)
[2022-12-19] MEDS: ALBUTEROL SULFATE 2.5 MG/3 ML NEBU NEB SCH ×4 (07:53→19:07)
[2022-12-19] MEDS: IPRATROPIUM BROMIDE 0.5 MG/2.5 ML NEBU NEB SCH ×4 (07:53→19:06)
[2022-12-19 08:00] VITALS: TEMP 97.6
[2022-12-19] MEDS: PROTEIN SUPPLEMENT (PROSTAT) 30 ML LIQUID GT SCH (08:00)
[2022-12-19] MEDS: PHENYTOIN 100 MG/4 ML UDC GT SCH ×2 (09:00→21:05)
[2022-12-19] MEDS: PHENOBARBITAL 64.8 MG TABLET GT SCH ×2 (09:00→21:05)
[2022-12-19] MEDS: COD LIVER OIL/ZINC OXIDE OINT 113 GM TUBE TP SCH ×2 (09:00→21:06)
[2022-12-19] MEDS: CULTURELLE CAPSULE GT SCH ×2 (09:00→21:01)
[2022-12-19] MEDS: CHOLECALCIFEROL 400 UNITS TABLET GT SCH ×2 (09:00→21:06)
[2022-12-19] MEDS: NYSTATIN CREAM 30 GM TUBE TP SCH ×2 (09:00→21:06)
[2022-12-19] MEDS: VITAMINS A AND D 5 GM UD PKT TP SCH ×3 (09:00)
[2022-12-19] MEDS: REMEDY ESSENTIAL ZINC PASTE 113 GM TP SCH ×2 (09:00→21:06)
[2022-12-19] MEDS: JEVITY 1.2 1000 ML LIQUID GT PRN (11:58)
[2022-12-19 19:59] VITALS: TEMP 97.9
[2022-12-19] MEDS: MIRALAX 17 GM POWD.PACK GT SCH (21:09)
[2022-12-20] MEDS: OMEPRAZOLE 20 MG CAPSULE.DR GT SCH ×2 (06:21→20:43)
[2022-12-20] MEDS: BACLOFEN 10 MG TABLET GT SCH ×3 (06:21→22:33)
[2022-12-20] MEDS: ASCORBIC ACID 500 MG TABLET GT SCH (06:21)
[2022-12-20] MEDS: ARGININE/GLUTAMINE/CALCIUM BMB 1 EACH POWD.PACK GT SCH ×2 (06:21→18:20)
[2022-12-20] MEDS: IPRATROPIUM BROMIDE 0.5 MG/2.5 ML NEBU NEB SCH ×4 (07:16→19:09)
[2022-12-20] MEDS: HYDROGEN PEROXIDE 3% 118 ML BOTTLE TOP SCH ×2 (07:17→19:09)
[2022-12-20] MEDS: ALBUTEROL SULFATE 2.5 MG/3 ML NEBU NEB SCH ×4 (07:17→19:09)
[2022-12-20] MEDS: PROTEIN SUPPLEMENT (PROSTAT) 30 ML LIQUID GT SCH (08:00)
[2022-12-20 08:08] VITALS: TEMP 98.7
[2022-12-20] MEDS: CULTURELLE CAPSULE GT SCH ×2 (09:14→20:40)
[2022-12-20] MEDS: PHENYTOIN 100 MG/4 ML UDC GT SCH ×2 (09:15→20:42)
[2022-12-20] MEDS: COD LIVER OIL/ZINC OXIDE OINT 113 GM TUBE TP SCH ×2 (09:17→20:43)
[2022-12-20] MEDS: PHENOBARBITAL 64.8 MG TABLET GT SCH ×2 (09:17→20:42)
[2022-12-20] MEDS: CHOLECALCIFEROL 400 UNITS TABLET GT SCH ×2 (09:17→20:44)
[2022-12-20] MEDS: REMEDY ESSENTIAL ZINC PASTE 113 GM TP SCH ×2 (09:18→20:43)
[2022-12-20] MEDS: VITAMINS A AND D 5 GM UD PKT TP SCH ×3 (09:18)
[2022-12-20] MEDS: NYSTATIN CREAM 30 GM TUBE TP SCH ×2 (09:18→20:43)
[2022-12-20] MEDS: JEVITY 1.2 1000 ML LIQUID GT PRN (12:35)
[2022-12-20 20:00] VITALS: TEMP 98.4
[2022-12-20] MEDS: MIRALAX 17 GM POWD.PACK GT SCH (20:45)
[2022-12-21] MEDS: ARGININE/GLUTAMINE/CALCIUM BMB 1 EACH POWD.PACK GT SCH ×2 (05:22→18:03)
[2022-12-21] MEDS: BACLOFEN 10 MG TABLET GT SCH ×3 (05:22→22:01)
[2022-12-21] MEDS: ASCORBIC ACID 500 MG TABLET GT SCH (05:22)
[2022-12-21] MEDS: OMEPRAZOLE 20 MG CAPSULE.DR GT SCH ×2 (05:23→21:00)
[2022-12-21] MEDS: HYDROGEN PEROXIDE 3% 118 ML BOTTLE TOP SCH ×2 (07:17→19:11)
[2022-12-21] MEDS: IPRATROPIUM BROMIDE 0.5 MG/2.5 ML NEBU NEB SCH ×4 (07:17→19:11)
[2022-12-21] MEDS: ALBUTEROL SULFATE 2.5 MG/3 ML NEBU NEB SCH ×4 (07:17→19:11)
[2022-12-21 08:04] VITALS: TEMP 97.8
[2022-12-21] MEDS: PROTEIN SUPPLEMENT (PROSTAT) 30 ML LIQUID GT SCH (08:51)
[2022-12-21] MEDS: PHENYTOIN 100 MG/4 ML UDC GT SCH ×2 (08:55→21:59)
[2022-12-21] MEDS: PHENOBARBITAL 64.8 MG TABLET GT SCH ×2 (08:57→21:59)
[2022-12-21] MEDS: CHOLECALCIFEROL 400 UNITS TABLET GT SCH ×2 (08:57→21:00)
[2022-12-21] MEDS: COD LIVER OIL/ZINC OXIDE OINT 113 GM TUBE TP SCH ×2 (09:00→21:00)
[2022-12-21] MEDS: VITAMINS A AND D 5 GM UD PKT TP SCH ×3 (09:01)
[2022-12-21] MEDS: NYSTATIN CREAM 30 GM TUBE TP SCH ×2 (09:01→21:00)
[2022-12-21] MEDS: REMEDY ESSENTIAL ZINC PASTE 113 GM TP SCH ×2 (09:01→21:00)
[2022-12-21] MEDS: CULTURELLE CAPSULE GT SCH ×2 (09:03→21:58)
[2022-12-21 20:00] VITALS: TEMP 97.3
[2022-12-21] MEDS: MIRALAX 17 GM POWD.PACK GT SCH (21:00)
[2022-12-21] MEDS: NEOMY/BACITRA/POLYMYXIN B OINT UD PACKET TP SCH (21:00)
[2022-12-22] MEDS: JEVITY 1.2 1000 ML LIQUID GT PRN ×2 (02:55→22:54)
[2022-12-22] MEDS: BACLOFEN 10 MG TABLET GT SCH ×3 (06:13→21:09)
[2022-12-22] MEDS: OMEPRAZOLE 20 MG CAPSULE.DR GT SCH ×2 (06:13→20:58)
[2022-12-22] MEDS: ARGININE/GLUTAMINE/CALCIUM BMB 1 EACH POWD.PACK GT SCH ×2 (06:13→18:20)
[2022-12-22] MEDS: ASCORBIC ACID 500 MG TABLET GT SCH (06:13)
[2022-12-22] MEDS: HYDROGEN PEROXIDE 3% 118 ML BOTTLE TOP SCH ×2 (07:37→19:05)
[2022-12-22] MEDS: ALBUTEROL SULFATE 2.5 MG/3 ML NEBU NEB SCH ×5 (07:37→19:04)
[2022-12-22] MEDS: IPRATROPIUM BROMIDE 0.5 MG/2.5 ML NEBU NEB SCH ×5 (07:37→19:04)
[2022-12-22 07:54] VITALS: TEMP 98
[2022-12-22] MEDS: CHOLECALCIFEROL 400 UNITS TABLET GT SCH ×2 (08:47→20:58)
[2022-12-22] MEDS: CULTURELLE CAPSULE GT SCH ×2 (08:47→20:57)
[2022-12-22] MEDS: COD LIVER OIL/ZINC OXIDE OINT 113 GM TUBE TP SCH ×2 (08:47→20:58)
[2022-12-22] MEDS: PROTEIN SUPPLEMENT (PROSTAT) 30 ML LIQUID GT SCH (08:47)
[2022-12-22] MEDS: NYSTATIN CREAM 30 GM TUBE TP SCH ×2 (08:47→20:58)
[2022-12-22] MEDS: PHENOBARBITAL 64.8 MG TABLET GT SCH ×2 (08:47→20:58)
[2022-12-22] MEDS: NEOMY/BACITRA/POLYMYXIN B OINT UD PACKET TP SCH ×2 (08:47→20:58)
[2022-12-22] MEDS: PHENYTOIN 100 MG/4 ML UDC GT SCH ×2 (08:47→20:58)
[2022-12-22] MEDS: REMEDY ESSENTIAL ZINC PASTE 113 GM TP SCH ×2 (08:47→20:58)
[2022-12-22] MEDS: VITAMINS A AND D 5 GM UD PKT TP SCH ×3 (08:48)
[2022-12-22 20:00] VITALS: TEMP 97.1
[2022-12-22] MEDS: MIRALAX 17 GM POWD.PACK GT SCH (20:58)
[2022-12-23] MEDS: ARGININE/GLUTAMINE/CALCIUM BMB 1 EACH POWD.PACK GT SCH ×2 (05:21→17:59)
[2022-12-23] MEDS: ASCORBIC ACID 500 MG TABLET GT SCH (05:21)
[2022-12-23] MEDS: BACLOFEN 10 MG TABLET GT SCH ×3 (05:21→21:48)
[2022-12-23] MEDS: OMEPRAZOLE 20 MG CAPSULE.DR GT SCH ×2 (06:06→21:49)
[2022-12-23 08:00] VITALS: TEMP 98.2
[2022-12-23] MEDS: PROTEIN SUPPLEMENT (PROSTAT) 30 ML LIQUID GT SCH (08:00)
[2022-12-23] MEDS: IPRATROPIUM BROMIDE 0.5 MG/2.5 ML NEBU NEB SCH ×4 (08:17→19:15)
[2022-12-23] MEDS: ALBUTEROL SULFATE 2.5 MG/3 ML NEBU NEB SCH ×4 (08:17→19:15)
[2022-12-23] MEDS: NYSTATIN CREAM 30 GM TUBE TP SCH (09:00)
[2022-12-23] MEDS: CHOLECALCIFEROL 400 UNITS TABLET GT SCH ×2 (09:00→21:58)
[2022-12-23] MEDS: REMEDY ESSENTIAL ZINC PASTE 113 GM TP SCH ×2 (09:00→21:49)
[2022-12-23] MEDS: COD LIVER OIL/ZINC OXIDE OINT 113 GM TUBE TP SCH ×2 (09:00→21:49)
[2022-12-23] MEDS: PHENOBARBITAL 64.8 MG TABLET GT SCH ×2 (09:00→21:53)
[2022-12-23] MEDS: VITAMINS A AND D 5 GM UD PKT TP SCH ×3 (09:00)
[2022-12-23] MEDS: CULTURELLE CAPSULE GT SCH ×2 (09:00→21:47)
[2022-12-23] MEDS: NEOMY/BACITRA/POLYMYXIN B OINT UD PACKET TP SCH ×2 (09:00→21:49)
[2022-12-23] MEDS: HYDROGEN PEROXIDE 3% 118 ML BOTTLE TOP SCH ×2 (09:06→19:15)
[2022-12-23] MEDS: PHENYTOIN 100 MG/4 ML UDC GT SCH ×2 (09:58→21:53)
[2022-12-23 20:00] VITALS: TEMP 98.7
[2022-12-23] MEDS: MIRALAX 17 GM POWD.PACK GT SCH (21:50)
[2022-12-23] MEDS: JEVITY 1.2 1000 ML LIQUID GT PRN (23:37)
[2022-12-24] MEDS: ARGININE/GLUTAMINE/CALCIUM BMB 1 EACH POWD.PACK GT SCH ×2 (06:27→17:47)
[2022-12-24] MEDS: ASCORBIC ACID 500 MG TABLET GT SCH (06:27)
[2022-12-24] MEDS: OMEPRAZOLE 20 MG CAPSULE.DR GT SCH ×2 (06:27→21:57)
[2022-12-24] MEDS: BACLOFEN 10 MG TABLET GT SCH ×3 (06:27→21:57)
[2022-12-24] MEDS: IPRATROPIUM BROMIDE 0.5 MG/2.5 ML NEBU NEB SCH ×4 (07:26→19:09)
[2022-12-24] MEDS: HYDROGEN PEROXIDE 3% 118 ML BOTTLE TOP SCH ×2 (07:26→19:09)
[2022-12-24] MEDS: ALBUTEROL SULFATE 2.5 MG/3 ML NEBU NEB SCH ×4 (07:26→19:09)
[2022-12-24 07:46] VITALS: TEMP 97.5
[2022-12-24] MEDS: PROTEIN SUPPLEMENT (PROSTAT) 30 ML LIQUID GT SCH (08:10)
[2022-12-24] MEDS: CULTURELLE CAPSULE GT SCH ×2 (08:12→21:57)
[2022-12-24] MEDS: PHENYTOIN 100 MG/4 ML UDC GT SCH ×2 (08:12→21:57)
[2022-12-24] MEDS: VITAMINS A AND D 5 GM UD PKT TP SCH ×3 (08:13)
[2022-12-24] MEDS: COD LIVER OIL/ZINC OXIDE OINT 113 GM TUBE TP SCH ×2 (08:13→21:57)
[2022-12-24] MEDS: REMEDY ESSENTIAL ZINC PASTE 113 GM TP SCH ×2 (08:13→21:57)
[2022-12-24] MEDS: NEOMY/BACITRA/POLYMYXIN B OINT UD PACKET TP SCH ×2 (08:13→21:57)
[2022-12-24] MEDS: PHENOBARBITAL 64.8 MG TABLET GT SCH ×2 (08:19→21:57)
[2022-12-24] MEDS: CHOLECALCIFEROL 400 UNITS TABLET GT SCH ×2 (08:19→21:57)
[2022-12-24] MEDS: MIRALAX 17 GM POWD.PACK GT SCH (21:57)
[2022-12-24] MEDS: JEVITY 1.2 1000 ML LIQUID GT PRN (21:58)
[2022-12-24 22:45] VITALS: TEMP 98.4
[2022-12-25] MEDS: ASCORBIC ACID 500 MG TABLET GT SCH (05:25)
[2022-12-25] MEDS: BACLOFEN 10 MG TABLET GT SCH ×3 (05:25→21:26)
[2022-12-25] MEDS: ARGININE/GLUTAMINE/CALCIUM BMB 1 EACH POWD.PACK GT SCH ×2 (05:25→17:40)
[2022-12-25] MEDS: OMEPRAZOLE 20 MG CAPSULE.DR GT SCH ×2 (06:30→21:29)
[2022-12-25] MEDS: ALBUTEROL SULFATE 2.5 MG/3 ML NEBU NEB SCH ×4 (07:21→19:02)
[2022-12-25] MEDS: IPRATROPIUM BROMIDE 0.5 MG/2.5 ML NEBU NEB SCH ×4 (07:21→19:02)
[2022-12-25 08:00] VITALS: TEMP 98.3
[2022-12-25] MEDS: PROTEIN SUPPLEMENT (PROSTAT) 30 ML LIQUID GT SCH (08:00)
[2022-12-25] MEDS: HYDROGEN PEROXIDE 3% 118 ML BOTTLE TOP SCH ×2 (08:56→20:33)
[2022-12-25] MEDS: PHENYTOIN 100 MG/4 ML UDC GT SCH ×2 (09:32→21:20)
[2022-12-25] MEDS: PHENOBARBITAL 64.8 MG TABLET GT SCH ×2 (09:37→21:22)
[2022-12-25] MEDS: CHOLECALCIFEROL 400 UNITS TABLET GT SCH ×2 (09:38→21:24)
[2022-12-25] MEDS: REMEDY ESSENTIAL ZINC PASTE 113 GM TP SCH ×2 (09:39→21:25)
[2022-12-25] MEDS: NEOMY/BACITRA/POLYMYXIN B OINT UD PACKET TP SCH ×2 (09:39→21:25)
[2022-12-25] MEDS: COD LIVER OIL/ZINC OXIDE OINT 113 GM TUBE TP SCH ×2 (09:39→21:25)
[2022-12-25] MEDS: VITAMINS A AND D 5 GM UD PKT TP SCH ×3 (09:40)
[2022-12-25] MEDS: CULTURELLE CAPSULE GT SCH ×2 (09:43→21:25)
[2022-12-25 20:00] VITALS: TEMP 97.1
[2022-12-25] MEDS: MIRALAX 17 GM POWD.PACK GT SCH (21:23)
[2022-12-26] MEDS: JEVITY 1.2 1000 ML LIQUID GT PRN (01:07)
[2022-12-26] MEDS: ARGININE/GLUTAMINE/CALCIUM BMB 1 EACH POWD.PACK GT SCH ×2 (06:32→18:37)
[2022-12-26] MEDS: ASCORBIC ACID 500 MG TABLET GT SCH (06:32)
[2022-12-26] MEDS: BACLOFEN 10 MG TABLET GT SCH ×3 (06:32→22:37)
[2022-12-26] MEDS: OMEPRAZOLE 20 MG CAPSULE.DR GT SCH ×2 (06:32→20:26)
[2022-12-26 08:00] VITALS: TEMP 97.7
[2022-12-26] MEDS: ALBUTEROL SULFATE 2.5 MG/3 ML NEBU NEB SCH ×4 (08:08→19:08)
[2022-12-26] MEDS: IPRATROPIUM BROMIDE 0.5 MG/2.5 ML NEBU NEB SCH ×4 (08:08→19:08)
[2022-12-26] MEDS: PROTEIN SUPPLEMENT (PROSTAT) 30 ML LIQUID GT SCH (08:50)
[2022-12-26] MEDS: REMEDY ESSENTIAL ZINC PASTE 113 GM TP SCH ×2 (08:52→20:27)
[2022-12-26] MEDS: COD LIVER OIL/ZINC OXIDE OINT 113 GM TUBE TP SCH ×2 (08:52→20:27)
[2022-12-26] MEDS: CHOLECALCIFEROL 400 UNITS TABLET GT SCH ×2 (08:52→21:00)
[2022-12-26] MEDS: CULTURELLE CAPSULE GT SCH ×2 (08:58→20:20)
[2022-12-26] MEDS: HYDROGEN PEROXIDE 3% 118 ML BOTTLE TOP SCH ×2 (09:00→19:08)
[2022-12-26] MEDS: PHENOBARBITAL 64.8 MG TABLET GT SCH ×2 (09:04→20:23)
[2022-12-26] MEDS: NEOMY/BACITRA/POLYMYXIN B OINT UD PACKET TP SCH ×2 (09:05→20:27)
[2022-12-26] MEDS: PHENYTOIN 100 MG/4 ML UDC GT SCH ×2 (09:07→20:24)
[2022-12-26] MEDS: VITAMINS A AND D 5 GM UD PKT TP SCH ×3 (09:09)
[2022-12-26 20:00] VITALS: TEMP 98.3
[2022-12-26] MEDS: MIRALAX 17 GM POWD.PACK GT SCH (20:25)
[2022-12-27] MEDS: JEVITY 1.2 1000 ML LIQUID GT PRN (02:16)
[2022-12-27] MEDS: ARGININE/GLUTAMINE/CALCIUM BMB 1 EACH POWD.PACK GT SCH ×2 (05:26→17:20)
[2022-12-27] MEDS: BACLOFEN 10 MG TABLET GT SCH ×3 (05:26→22:34)
[2022-12-27] MEDS: ASCORBIC ACID 500 MG TABLET GT SCH (05:26)
[2022-12-27] MEDS: OMEPRAZOLE 20 MG CAPSULE.DR GT SCH ×2 (06:20→20:46)
[2022-12-27] MEDS: ALBUTEROL SULFATE 2.5 MG/3 ML NEBU NEB SCH ×4 (07:19→19:04)
[2022-12-27] MEDS: HYDROGEN PEROXIDE 3% 118 ML BOTTLE TOP SCH ×2 (07:19→21:22)
[2022-12-27] MEDS: IPRATROPIUM BROMIDE 0.5 MG/2.5 ML NEBU NEB SCH ×4 (07:19→19:04)
[2022-12-27 07:55] VITALS: TEMP 98.7
[2022-12-27] MEDS: CULTURELLE CAPSULE GT SCH ×2 (08:30→20:46)
[2022-12-27] MEDS: PROTEIN SUPPLEMENT (PROSTAT) 30 ML LIQUID GT SCH (08:30)
[2022-12-27] MEDS: PHENYTOIN 100 MG/4 ML UDC GT SCH ×2 (08:30→20:44)
[2022-12-27] MEDS: REMEDY ESSENTIAL ZINC PASTE 113 GM TP SCH ×2 (08:32→20:46)
[2022-12-27] MEDS: VITAMINS A AND D 5 GM UD PKT TP SCH ×3 (08:32)
[2022-12-27] MEDS: NEOMY/BACITRA/POLYMYXIN B OINT UD PACKET TP SCH ×2 (08:32→20:46)
[2022-12-27] MEDS: PHENOBARBITAL 64.8 MG TABLET GT SCH ×2 (08:32→20:45)
[2022-12-27] MEDS: COD LIVER OIL/ZINC OXIDE OINT 113 GM TUBE TP SCH ×2 (08:32→20:46)
[2022-12-27] MEDS: CHOLECALCIFEROL 400 UNITS TABLET GT SCH ×2 (08:32→20:46)
[2022-12-27] MEDS: MIRALAX 17 GM POWD.PACK GT SCH (20:46)
[2022-12-28] MEDS: JEVITY 1.2 1000 ML LIQUID GT PRN (01:00)
[2022-12-28] MEDS: ARGININE/GLUTAMINE/CALCIUM BMB 1 EACH POWD.PACK GT SCH ×2 (06:50→17:40)
[2022-12-28] MEDS: ASCORBIC ACID 500 MG TABLET GT SCH (06:50)
[2022-12-28] MEDS: OMEPRAZOLE 20 MG CAPSULE.DR GT SCH ×2 (06:50→20:17)
[2022-12-28] MEDS: BACLOFEN 10 MG TABLET GT SCH ×3 (06:50→21:21)
[2022-12-28] MEDS: IPRATROPIUM BROMIDE 0.5 MG/2.5 ML NEBU NEB SCH ×4 (07:16→19:09)
[2022-12-28] MEDS: ALBUTEROL SULFATE 2.5 MG/3 ML NEBU NEB SCH ×4 (07:16→19:09)
[2022-12-28 08:00] VITALS: TEMP 98.5
[2022-12-28] MEDS: HYDROGEN PEROXIDE 3% 118 ML BOTTLE TOP SCH ×2 (08:46→19:09)
[2022-12-28] MEDS: CULTURELLE CAPSULE GT SCH ×2 (08:48→20:19)
[2022-12-28] MEDS: PROTEIN SUPPLEMENT (PROSTAT) 30 ML LIQUID GT SCH (08:48)
[2022-12-28] MEDS: PHENOBARBITAL 64.8 MG TABLET GT SCH ×2 (08:50→20:24)
[2022-12-28] MEDS: CHOLECALCIFEROL 400 UNITS TABLET GT SCH ×2 (08:50→20:24)
[2022-12-28] MEDS: PHENYTOIN 100 MG/4 ML UDC GT SCH ×2 (08:50→20:24)
[2022-12-28] MEDS: VITAMINS A AND D 5 GM UD PKT TP SCH ×3 (08:51)
[2022-12-28] MEDS: REMEDY ESSENTIAL ZINC PASTE 113 GM TP SCH ×2 (08:51→20:24)
[2022-12-28] MEDS: COD LIVER OIL/ZINC OXIDE OINT 113 GM TUBE TP SCH ×2 (08:51→20:24)
[2022-12-28] MEDS: NEOMY/BACITRA/POLYMYXIN B OINT UD PACKET TP SCH ×2 (08:51→20:24)
[2022-12-28 20:00] VITALS: TEMP 97.4
[2022-12-28] MEDS: MIRALAX 17 GM POWD.PACK GT SCH (20:16)
[2022-12-29] MEDS: JEVITY 1.2 1000 ML LIQUID GT PRN (00:28)
[2022-12-29] MEDS: ASCORBIC ACID 500 MG TABLET GT SCH (06:18)
[2022-12-29] MEDS: ARGININE/GLUTAMINE/CALCIUM BMB 1 EACH POWD.PACK GT SCH ×2 (06:18→17:12)
[2022-12-29] MEDS: BACLOFEN 10 MG TABLET GT SCH ×3 (06:18→22:42)
[2022-12-29] MEDS: OMEPRAZOLE 20 MG CAPSULE.DR GT SCH ×2 (06:19→20:05)
[2022-12-29] MEDS: ALBUTEROL SULFATE 2.5 MG/3 ML NEBU NEB SCH ×4 (07:05→19:15)
[2022-12-29] MEDS: IPRATROPIUM BROMIDE 0.5 MG/2.5 ML NEBU NEB SCH ×4 (07:05→19:15)
[2022-12-29 07:25] VITALS: TEMP 97.4
[2022-12-29] MEDS: HYDROGEN PEROXIDE 3% 118 ML BOTTLE TOP SCH ×2 (08:12→19:15)
[2022-12-29] MEDS: PROTEIN SUPPLEMENT (PROSTAT) 30 ML LIQUID GT SCH (08:18)
[2022-12-29] MEDS: COD LIVER OIL/ZINC OXIDE OINT 113 GM TUBE TP SCH ×2 (08:19→20:05)
[2022-12-29] MEDS: CHOLECALCIFEROL 400 UNITS TABLET GT SCH ×2 (08:19→20:05)
[2022-12-29] MEDS: PHENYTOIN 100 MG/4 ML UDC GT SCH ×2 (08:19→20:03)
[2022-12-29] MEDS: NEOMY/BACITRA/POLYMYXIN B OINT UD PACKET TP SCH ×2 (08:19→20:06)
[2022-12-29] MEDS: PHENOBARBITAL 64.8 MG TABLET GT SCH ×2 (08:19→20:03)
[2022-12-29] MEDS: CULTURELLE CAPSULE GT SCH ×2 (08:19→20:03)
[2022-12-29] MEDS: VITAMINS A AND D 5 GM UD PKT TP SCH ×3 (08:19→08:20)
[2022-12-29] MEDS: REMEDY ESSENTIAL ZINC PASTE 113 GM TP SCH ×2 (08:19→20:06)
[2022-12-29 19:51] VITALS: TEMP 96.7
[2022-12-29] MEDS: MIRALAX 17 GM POWD.PACK GT SCH (20:04)
[2022-12-30] MEDS: ARGININE/GLUTAMINE/CALCIUM BMB 1 EACH POWD.PACK GT SCH ×2 (05:04→17:17)
[2022-12-30] MEDS: JEVITY 1.2 1000 ML LIQUID GT PRN ×2 (05:04→22:25)
[2022-12-30] MEDS: BACLOFEN 10 MG TABLET GT SCH ×3 (05:04→22:25)
[2022-12-30] MEDS: ASCORBIC ACID 500 MG TABLET GT SCH (05:04)
[2022-12-30] MEDS: OMEPRAZOLE 20 MG CAPSULE.DR GT SCH ×2 (05:38→20:07)
[2022-12-30] MEDS: ALBUTEROL SULFATE 2.5 MG/3 ML NEBU NEB SCH ×4 (07:07→19:03)
[2022-12-30] MEDS: IPRATROPIUM BROMIDE 0.5 MG/2.5 ML NEBU NEB SCH ×4 (07:07→19:03)
[2022-12-30] MEDS: HYDROGEN PEROXIDE 3% 118 ML BOTTLE TOP SCH ×2 (07:08→19:03)
[2022-12-30 07:30] VITALS: TEMP 97.7
[2022-12-30] MEDS: CULTURELLE CAPSULE GT SCH ×2 (08:51→20:07)
[2022-12-30] MEDS: PROTEIN SUPPLEMENT (PROSTAT) 30 ML LIQUID GT SCH (08:51)
[2022-12-30] MEDS: PHENYTOIN 100 MG/4 ML UDC GT SCH ×2 (08:51→20:07)
[2022-12-30] MEDS: CHOLECALCIFEROL 400 UNITS TABLET GT SCH ×2 (08:52→20:07)
[2022-12-30] MEDS: PHENOBARBITAL 64.8 MG TABLET GT SCH ×2 (08:52→20:07)
[2022-12-30] MEDS: NEOMY/BACITRA/POLYMYXIN B OINT UD PACKET TP SCH ×2 (08:53→20:07)
[2022-12-30] MEDS: REMEDY ESSENTIAL ZINC PASTE 113 GM TP SCH ×2 (08:53→20:07)
[2022-12-30] MEDS: VITAMINS A AND D 5 GM UD PKT TP SCH ×3 (08:53)
[2022-12-30] MEDS: COD LIVER OIL/ZINC OXIDE OINT 113 GM TUBE TP SCH ×2 (08:53→20:07)
[2022-12-30] MEDS: MIRALAX 17 GM POWD.PACK GT SCH (20:07)
[2022-12-30 20:51] VITALS: TEMP 97.9
[2022-12-31] MEDS: BACLOFEN 10 MG TABLET GT SCH ×3 (05:19→22:31)
[2022-12-31] MEDS: ASCORBIC ACID 500 MG TABLET GT SCH (05:19)
[2022-12-31] MEDS: ARGININE/GLUTAMINE/CALCIUM BMB 1 EACH POWD.PACK GT SCH ×2 (05:19→17:15)
[2022-12-31] MEDS: OMEPRAZOLE 20 MG CAPSULE.DR GT SCH ×2 (06:26→20:31)
[2022-12-31 07:22] VITALS: TEMP 97.9
[2022-12-31] MEDS: HYDROGEN PEROXIDE 3% 118 ML BOTTLE TOP SCH ×2 (07:46→19:09)
[2022-12-31] MEDS: ALBUTEROL SULFATE 2.5 MG/3 ML NEBU NEB SCH ×4 (07:46→19:09)
[2022-12-31] MEDS: IPRATROPIUM BROMIDE 0.5 MG/2.5 ML NEBU NEB SCH ×4 (07:46→19:09)
[2022-12-31] MEDS: PROTEIN SUPPLEMENT (PROSTAT) 30 ML LIQUID GT SCH (08:28)
[2022-12-31] MEDS: CULTURELLE CAPSULE GT SCH ×2 (08:29→20:28)
[2022-12-31] MEDS: PHENOBARBITAL 64.8 MG TABLET GT SCH ×2 (08:30→20:31)
[2022-12-31] MEDS: PHENYTOIN 100 MG/4 ML UDC GT SCH ×2 (08:30→20:28)
[2022-12-31] MEDS: CHOLECALCIFEROL 400 UNITS TABLET GT SCH ×2 (08:41→20:31)
[2022-12-31] MEDS: COD LIVER OIL/ZINC OXIDE OINT 113 GM TUBE TP SCH ×2 (08:42→20:31)
[2022-12-31] MEDS: NEOMY/BACITRA/POLYMYXIN B OINT UD PACKET TP SCH ×2 (08:42→20:32)
[2022-12-31] MEDS: REMEDY ESSENTIAL ZINC PASTE 113 GM TP SCH ×2 (08:42→20:32)
[2022-12-31] MEDS: VITAMINS A AND D 5 GM UD PKT TP SCH ×3 (08:42)
[2022-12-31] MEDS: JEVITY 1.2 1000 ML LIQUID GT PRN (18:41)
[2022-12-31 20:00] VITALS: TEMP 97.8
[2022-12-31] MEDS: MIRALAX 17 GM POWD.PACK GT SCH (20:31)
[2023-01-01] MEDS: ARGININE/GLUTAMINE/CALCIUM BMB 1 EACH POWD.PACK GT SCH ×2 (05:24→17:07)
[2023-01-01] MEDS: BACLOFEN 10 MG TABLET GT SCH ×3 (05:24→22:16)
[2023-01-01] MEDS: ASCORBIC ACID 500 MG TABLET GT SCH (05:24)
[2023-01-01] MEDS: OMEPRAZOLE 20 MG CAPSULE.DR GT SCH ×2 (06:02→20:13)
[2023-01-01 07:20] VITALS: TEMP 97.7
[2023-01-01] MEDS: PROTEIN SUPPLEMENT (PROSTAT) 30 ML LIQUID GT SCH (08:00)
[2023-01-01] MEDS: HYDROGEN PEROXIDE 3% 118 ML BOTTLE TOP SCH ×2 (08:05→19:14)
[2023-01-01] MEDS: IPRATROPIUM BROMIDE 0.5 MG/2.5 ML NEBU NEB SCH ×4 (08:05→19:13)
[2023-01-01] MEDS: ALBUTEROL SULFATE 2.5 MG/3 ML NEBU NEB SCH ×4 (08:05→19:13)
[2023-01-01] MEDS: PHENYTOIN 100 MG/4 ML UDC GT SCH ×2 (09:48→20:12)
[2023-01-01] MEDS: CULTURELLE CAPSULE GT SCH ×2 (09:48→20:12)
[2023-01-01] MEDS: PHENOBARBITAL 64.8 MG TABLET GT SCH ×2 (09:49→20:12)
[2023-01-01] MEDS: REMEDY ESSENTIAL ZINC PASTE 113 GM TP SCH ×2 (09:50→20:13)
[2023-01-01] MEDS: NEOMY/BACITRA/POLYMYXIN B OINT UD PACKET TP SCH ×2 (09:50→20:13)
[2023-01-01] MEDS: VITAMINS A AND D 5 GM UD PKT TP SCH ×3 (09:50)
[2023-01-01] MEDS: CHOLECALCIFEROL 400 UNITS TABLET GT SCH ×2 (09:50→20:13)
[2023-01-01] MEDS: COD LIVER OIL/ZINC OXIDE OINT 113 GM TUBE TP SCH ×2 (09:50→20:13)
[2023-01-01] MEDS: JEVITY 1.2 1000 ML LIQUID GT PRN (17:07)
[2023-01-01 20:00] VITALS: TEMP 97.2
[2023-01-01] MEDS: MIRALAX 17 GM POWD.PACK GT SCH (20:12)
[2023-01-02] MEDS: ASCORBIC ACID 500 MG TABLET GT SCH (05:26)
[2023-01-02] MEDS: ARGININE/GLUTAMINE/CALCIUM BMB 1 EACH POWD.PACK GT SCH ×2 (05:26→17:21)
[2023-01-02] MEDS: BACLOFEN 10 MG TABLET GT SCH ×3 (05:26→22:00)
[2023-01-02] MEDS: OMEPRAZOLE 20 MG CAPSULE.DR GT SCH ×2 (06:19→21:00)
[2023-01-02] MEDS: IPRATROPIUM BROMIDE 0.5 MG/2.5 ML NEBU NEB SCH ×4 (07:24→19:16)
[2023-01-02] MEDS: ALBUTEROL SULFATE 2.5 MG/3 ML NEBU NEB SCH ×4 (07:24→19:17)
[2023-01-02 07:58] VITALS: TEMP 97.4
[2023-01-02] MEDS: PHENOBARBITAL 64.8 MG TABLET GT SCH ×2 (08:53→21:00)
[2023-01-02] MEDS: CULTURELLE CAPSULE GT SCH ×2 (08:53→21:00)
[2023-01-02] MEDS: PROTEIN SUPPLEMENT (PROSTAT) 30 ML LIQUID GT SCH (08:53)
[2023-01-02] MEDS: CHOLECALCIFEROL 400 UNITS TABLET GT SCH ×2 (08:53→21:00)
[2023-01-02] MEDS: PHENYTOIN 100 MG/4 ML UDC GT SCH ×2 (08:53→21:00)
[2023-01-02] MEDS: NEOMY/BACITRA/POLYMYXIN B OINT UD PACKET TP SCH ×2 (08:54→21:00)
[2023-01-02] MEDS: REMEDY ESSENTIAL ZINC PASTE 113 GM TP SCH ×2 (08:54→21:00)
[2023-01-02] MEDS: COD LIVER OIL/ZINC OXIDE OINT 113 GM TUBE TP SCH ×2 (08:54→21:00)
[2023-01-02] MEDS: VITAMINS A AND D 5 GM UD PKT TP SCH ×3 (08:54)
[2023-01-02] MEDS: HYDROGEN PEROXIDE 3% 118 ML BOTTLE TOP SCH ×2 (09:13→19:17)
[2023-01-02 19:48] VITALS: TEMP 97.4
[2023-01-02] MEDS: MIRALAX 17 GM POWD.PACK GT SCH (21:00)
[2023-01-03] MEDS: ASCORBIC ACID 500 MG TABLET GT SCH (06:26)
[2023-01-03] MEDS: ARGININE/GLUTAMINE/CALCIUM BMB 1 EACH POWD.PACK GT SCH ×2 (06:26→17:09)
[2023-01-03] MEDS: BACLOFEN 10 MG TABLET GT SCH ×3 (06:26→21:22)
[2023-01-03] MEDS: OMEPRAZOLE 20 MG CAPSULE.DR GT SCH ×2 (06:31→21:21)
[2023-01-03] MEDS: IPRATROPIUM BROMIDE 0.5 MG/2.5 ML NEBU NEB SCH ×4 (07:15→19:06)
[2023-01-03] MEDS: ALBUTEROL SULFATE 2.5 MG/3 ML NEBU NEB SCH ×4 (07:15→19:06)
[2023-01-03] MEDS: HYDROGEN PEROXIDE 3% 118 ML BOTTLE TOP SCH ×2 (07:15→19:06)
[2023-01-03 07:52] VITALS: TEMP 97.4
[2023-01-03] MEDS: PROTEIN SUPPLEMENT (PROSTAT) 30 ML LIQUID GT SCH (08:00)
[2023-01-03] MEDS: CULTURELLE CAPSULE GT SCH ×2 (09:01→21:18)
[2023-01-03] MEDS: PHENYTOIN 100 MG/4 ML UDC GT SCH ×2 (09:09→21:18)
[2023-01-03] MEDS: PHENOBARBITAL 64.8 MG TABLET GT SCH ×2 (09:11→21:20)
[2023-01-03] MEDS: CHOLECALCIFEROL 400 UNITS TABLET GT SCH ×2 (09:12→21:22)
[2023-01-03] MEDS: REMEDY ESSENTIAL ZINC PASTE 113 GM TP SCH ×2 (09:12→21:22)
[2023-01-03] MEDS: COD LIVER OIL/ZINC OXIDE OINT 113 GM TUBE TP SCH ×2 (09:12→21:22)
[2023-01-03] MEDS: NEOMY/BACITRA/POLYMYXIN B OINT UD PACKET TP SCH ×2 (09:12→21:22)
[2023-01-03] MEDS: VITAMINS A AND D 5 GM UD PKT TP SCH ×3 (09:13)
[2023-01-03 20:00] VITALS: TEMP 97
[2023-01-03] MEDS: MIRALAX 17 GM POWD.PACK GT SCH (21:21)
[2023-01-04] MEDS: COD LIVER OIL/ZINC OXIDE OINT 113 GM TUBE TOP SCH ×6 (01:40→21:33)
[2023-01-04] MEDS: CLOTRIMAZOLE 1% CREAM 30 GM TUBE TOP SCH ×6 (01:41→21:33)
[2023-01-04] MEDS: ARGININE/GLUTAMINE/CALCIUM BMB 1 EACH POWD.PACK GT SCH ×2 (05:13→17:00)
[2023-01-04] MEDS: BACLOFEN 10 MG TABLET GT SCH ×3 (05:14→21:34)
[2023-01-04] MEDS: ASCORBIC ACID 500 MG TABLET GT SCH (05:14)
[2023-01-04] MEDS: OMEPRAZOLE 20 MG CAPSULE.DR GT SCH ×2 (05:14→21:33)
[2023-01-04] MEDS: IPRATROPIUM BROMIDE 0.5 MG/2.5 ML NEBU NEB SCH ×4 (07:33→19:34)
[2023-01-04] MEDS: ALBUTEROL SULFATE 2.5 MG/3 ML NEBU NEB SCH ×4 (07:34→19:34)
[2023-01-04] MEDS: HYDROGEN PEROXIDE 3% 118 ML BOTTLE TOP SCH ×2 (07:34→19:34)
[2023-01-04 07:50] VITALS: TEMP 97.8
[2023-01-04] MEDS: PROTEIN SUPPLEMENT (PROSTAT) 30 ML LIQUID GT SCH (08:00)
[2023-01-04] MEDS: CULTURELLE CAPSULE GT SCH ×2 (09:13→21:32)
[2023-01-04] MEDS: COD LIVER OIL/ZINC OXIDE OINT 113 GM TUBE TP SCH ×2 (09:14→21:33)
[2023-01-04] MEDS: PHENYTOIN 100 MG/4 ML UDC GT SCH ×2 (09:14→21:32)
[2023-01-04] MEDS: VITAMINS A AND D 5 GM UD PKT TP SCH ×3 (09:14→09:15)
[2023-01-04] MEDS: NEOMY/BACITRA/POLYMYXIN B OINT UD PACKET TP SCH (09:14)
[2023-01-04] MEDS: CHOLECALCIFEROL 400 UNITS TABLET GT SCH ×2 (09:14→21:33)
[2023-01-04] MEDS: PHENOBARBITAL 64.8 MG TABLET GT SCH ×2 (09:14→21:32)
[2023-01-04] MEDS: REMEDY ESSENTIAL ZINC PASTE 113 GM TP SCH ×2 (09:14→21:34)
[2023-01-04 20:00] VITALS: TEMP 97.2
[2023-01-04] MEDS: MIRALAX 17 GM POWD.PACK GT SCH (21:32)
[2023-01-05] MEDS: OMEPRAZOLE 20 MG CAPSULE.DR GT SCH ×2 (05:54→21:31)
[2023-01-05] MEDS: ARGININE/GLUTAMINE/CALCIUM BMB 1 EACH POWD.PACK GT SCH ×2 (05:54→17:30)
[2023-01-05] MEDS: BACLOFEN 10 MG TABLET GT SCH ×3 (05:54→21:33)
[2023-01-05] MEDS: ASCORBIC ACID 500 MG TABLET GT SCH (05:54)
[2023-01-05] MEDS: HYDROGEN PEROXIDE 3% 118 ML BOTTLE TOP SCH ×2 (07:20→19:10)
[2023-01-05] MEDS: IPRATROPIUM BROMIDE 0.5 MG/2.5 ML NEBU NEB SCH ×4 (07:20→19:09)
[2023-01-05] MEDS: ALBUTEROL SULFATE 2.5 MG/3 ML NEBU NEB SCH ×4 (07:20→19:09)
[2023-01-05 07:50] VITALS: TEMP 98.1
[2023-01-05] MEDS: CULTURELLE CAPSULE GT SCH ×2 (08:49→21:26)
[2023-01-05] MEDS: PHENOBARBITAL 64.8 MG TABLET GT SCH ×2 (08:49→21:28)
[2023-01-05] MEDS: PROTEIN SUPPLEMENT (PROSTAT) 30 ML LIQUID GT SCH (08:49)
[2023-01-05] MEDS: PHENYTOIN 100 MG/4 ML UDC GT SCH ×2 (08:49→21:26)
[2023-01-05] MEDS: COD LIVER OIL/ZINC OXIDE OINT 113 GM TUBE TOP SCH ×4 (08:50→21:32)
[2023-01-05] MEDS: CHOLECALCIFEROL 400 UNITS TABLET GT SCH ×2 (08:50→21:32)
[2023-01-05] MEDS: COD LIVER OIL/ZINC OXIDE OINT 113 GM TUBE TP SCH ×2 (08:50→21:33)
[2023-01-05] MEDS: REMEDY ESSENTIAL ZINC PASTE 113 GM TP SCH ×2 (08:50→21:33)
[2023-01-05] MEDS: VITAMINS A AND D 5 GM UD PKT TP SCH ×3 (08:50)
[2023-01-05] MEDS: CLOTRIMAZOLE 1% CREAM 30 GM TUBE TOP SCH ×4 (08:50→21:32)
[2023-01-05] MEDS: JEVITY 1.2 1000 ML LIQUID GT PRN (17:30)
[2023-01-05 19:45] VITALS: TEMP 96.7
[2023-01-05] MEDS: MIRALAX 17 GM POWD.PACK GT SCH (21:29)
[2023-01-06] MEDS: ASCORBIC ACID 500 MG TABLET GT SCH (05:09)
[2023-01-06] MEDS: BACLOFEN 10 MG TABLET GT SCH ×3 (05:10→21:46)
[2023-01-06] MEDS: OMEPRAZOLE 20 MG CAPSULE.DR GT SCH ×2 (06:07→20:33)
[2023-01-06] MEDS: ARGININE/GLUTAMINE/CALCIUM BMB 1 EACH POWD.PACK GT SCH ×2 (06:07→17:38)
[2023-01-06] MEDS: IPRATROPIUM BROMIDE 0.5 MG/2.5 ML NEBU NEB SCH ×4 (07:12→18:55)
[2023-01-06] MEDS: ALBUTEROL SULFATE 2.5 MG/3 ML NEBU NEB SCH ×4 (07:12→18:55)
[2023-01-06] MEDS: HYDROGEN PEROXIDE 3% 118 ML BOTTLE TOP SCH ×2 (07:12→18:55)
[2023-01-06 07:32] VITALS: TEMP 97.6
[2023-01-06] MEDS: PROTEIN SUPPLEMENT (PROSTAT) 30 ML LIQUID GT SCH (08:00)
[2023-01-06] MEDS: COD LIVER OIL/ZINC OXIDE OINT 113 GM TUBE TOP SCH ×4 (09:00→20:35)
[2023-01-06] MEDS: VITAMINS A AND D 5 GM UD PKT TP SCH ×3 (09:00)
[2023-01-06] MEDS: COD LIVER OIL/ZINC OXIDE OINT 113 GM TUBE TP SCH ×2 (09:00→20:35)
[2023-01-06] MEDS: REMEDY ESSENTIAL ZINC PASTE 113 GM TP SCH ×2 (09:00→20:35)
[2023-01-06] MEDS: CLOTRIMAZOLE 1% CREAM 30 GM TUBE TOP SCH ×4 (09:00→20:35)
[2023-01-06] MEDS: CULTURELLE CAPSULE GT SCH ×2 (09:59→20:30)
[2023-01-06] MEDS: CHOLECALCIFEROL 400 UNITS TABLET GT SCH ×2 (09:59→20:33)
[2023-01-06] MEDS: PHENYTOIN 100 MG/4 ML UDC GT SCH ×2 (09:59→20:31)
[2023-01-06] MEDS: PHENOBARBITAL 64.8 MG TABLET GT SCH ×2 (09:59→20:31)
[2023-01-06] MEDS: JEVITY 1.2 1000 ML LIQUID GT PRN ×2 (19:03→21:46)
[2023-01-06 19:44] VITALS: TEMP 96.7
[2023-01-06] MEDS: MIRALAX 17 GM POWD.PACK GT SCH (20:33)
[2023-01-07] MEDS: BACLOFEN 10 MG TABLET GT SCH ×3 (05:03→21:32)
[2023-01-07] MEDS: ASCORBIC ACID 500 MG TABLET GT SCH (05:03)
[2023-01-07] MEDS: ARGININE/GLUTAMINE/CALCIUM BMB 1 EACH POWD.PACK GT SCH ×2 (05:03→17:38)
[2023-01-07] MEDS: OMEPRAZOLE 20 MG CAPSULE.DR GT SCH ×2 (05:42→21:31)
[2023-01-07 07:22] VITALS: TEMP 97.6
[2023-01-07] MEDS: PROTEIN SUPPLEMENT (PROSTAT) 30 ML LIQUID GT SCH (08:00)
[2023-01-07] MEDS: HYDROGEN PEROXIDE 3% 118 ML BOTTLE TOP SCH ×2 (08:06→19:18)
[2023-01-07] MEDS: ALBUTEROL SULFATE 2.5 MG/3 ML NEBU NEB SCH ×4 (08:06→19:18)
[2023-01-07] MEDS: IPRATROPIUM BROMIDE 0.5 MG/2.5 ML NEBU NEB SCH ×4 (08:06→19:18)
[2023-01-07] MEDS: CHOLECALCIFEROL 400 UNITS TABLET GT SCH ×2 (09:17→21:31)
[2023-01-07] MEDS: COD LIVER OIL/ZINC OXIDE OINT 113 GM TUBE TOP SCH ×4 (09:17→21:32)
[2023-01-07] MEDS: COD LIVER OIL/ZINC OXIDE OINT 113 GM TUBE TP SCH ×2 (09:17→21:32)
[2023-01-07] MEDS: PHENYTOIN 100 MG/4 ML UDC GT SCH ×2 (09:17→21:31)
[2023-01-07] MEDS: PHENOBARBITAL 64.8 MG TABLET GT SCH ×2 (09:17→21:31)
[2023-01-07] MEDS: CLOTRIMAZOLE 1% CREAM 30 GM TUBE TOP SCH ×4 (09:17→21:32)
[2023-01-07] MEDS: CULTURELLE CAPSULE GT SCH ×2 (09:17→21:31)
[2023-01-07] MEDS: REMEDY ESSENTIAL ZINC PASTE 113 GM TP SCH ×2 (09:18→21:32)
[2023-01-07] MEDS: VITAMINS A AND D 5 GM UD PKT TP SCH ×3 (09:18)
[2023-01-07 20:00] VITALS: TEMP 97.5
[2023-01-07] MEDS: MIRALAX 17 GM POWD.PACK GT SCH (21:31)
[2023-01-08] MEDS: ASCORBIC ACID 500 MG TABLET GT SCH (05:03)
[2023-01-08] MEDS: ARGININE/GLUTAMINE/CALCIUM BMB 1 EACH POWD.PACK GT SCH ×2 (05:03→18:00)
[2023-01-08] MEDS: BACLOFEN 10 MG TABLET GT SCH ×3 (05:03→22:55)
[2023-01-08] MEDS: OMEPRAZOLE 20 MG CAPSULE.DR GT SCH ×2 (05:30→20:51)
[2023-01-08] MEDS: IPRATROPIUM BROMIDE 0.5 MG/2.5 ML NEBU NEB SCH ×4 (07:12→19:13)
[2023-01-08] MEDS: ALBUTEROL SULFATE 2.5 MG/3 ML NEBU NEB SCH ×4 (07:12→19:13)
[2023-01-08 07:20] VITALS: TEMP 97.9
[2023-01-08] MEDS: PROTEIN SUPPLEMENT (PROSTAT) 30 ML LIQUID GT SCH (08:24)
[2023-01-08] MEDS: COD LIVER OIL/ZINC OXIDE OINT 113 GM TUBE TP SCH ×2 (08:25→20:52)
[2023-01-08] MEDS: COD LIVER OIL/ZINC OXIDE OINT 113 GM TUBE TOP SCH ×4 (08:25→20:51)
[2023-01-08] MEDS: PHENYTOIN 100 MG/4 ML UDC GT SCH ×2 (08:25→20:51)
[2023-01-08] MEDS: CHOLECALCIFEROL 400 UNITS TABLET GT SCH ×2 (08:25→20:51)
[2023-01-08] MEDS: CLOTRIMAZOLE 1% CREAM 30 GM TUBE TOP SCH ×4 (08:25→20:52)
[2023-01-08] MEDS: VITAMINS A AND D 5 GM UD PKT TP SCH ×3 (08:25)
[2023-01-08] MEDS: REMEDY ESSENTIAL ZINC PASTE 113 GM TP SCH ×2 (08:25→20:52)
[2023-01-08] MEDS: CULTURELLE CAPSULE GT SCH ×2 (08:25→20:51)
[2023-01-08] MEDS: PHENOBARBITAL 64.8 MG TABLET GT SCH ×2 (08:25→20:51)
[2023-01-08] MEDS: HYDROGEN PEROXIDE 3% 118 ML BOTTLE TOP SCH ×2 (09:00→19:13)
[2023-01-08 20:00] VITALS: TEMP 97.6
[2023-01-08] MEDS: MIRALAX 17 GM POWD.PACK GT SCH (20:51)
[2023-01-09] MEDS: ASCORBIC ACID 500 MG TABLET GT SCH (05:59)
[2023-01-09] MEDS: BACLOFEN 10 MG TABLET GT SCH ×3 (05:59→22:00)
[2023-01-09] MEDS: ARGININE/GLUTAMINE/CALCIUM BMB 1 EACH POWD.PACK GT SCH ×2 (05:59→18:28)
[2023-01-09] MEDS: OMEPRAZOLE 20 MG CAPSULE.DR GT SCH ×2 (05:59→20:35)
[2023-01-09 07:31] VITALS: TEMP 97.7
[2023-01-09] MEDS: PROTEIN SUPPLEMENT (PROSTAT) 30 ML LIQUID GT SCH (08:00)
[2023-01-09] MEDS: ALBUTEROL SULFATE 2.5 MG/3 ML NEBU NEB SCH ×4 (08:06→19:07)
[2023-01-09] MEDS: HYDROGEN PEROXIDE 3% 118 ML BOTTLE TOP SCH ×2 (08:06→19:07)
[2023-01-09] MEDS: IPRATROPIUM BROMIDE 0.5 MG/2.5 ML NEBU NEB SCH ×4 (08:06→19:07)
[2023-01-09] MEDS: CULTURELLE CAPSULE GT SCH ×2 (09:18→20:32)
[2023-01-09] MEDS: PHENYTOIN 100 MG/4 ML UDC GT SCH ×2 (09:20→21:26)
[2023-01-09] MEDS: PHENOBARBITAL 64.8 MG TABLET GT SCH ×2 (09:21→20:37)
[2023-01-09] MEDS: CLOTRIMAZOLE 1% CREAM 30 GM TUBE TOP SCH ×4 (09:22→20:35)
[2023-01-09] MEDS: COD LIVER OIL/ZINC OXIDE OINT 113 GM TUBE TOP SCH ×4 (09:22→20:35)
[2023-01-09] MEDS: CHOLECALCIFEROL 400 UNITS TABLET GT SCH ×2 (09:22→20:35)
[2023-01-09] MEDS: COD LIVER OIL/ZINC OXIDE OINT 113 GM TUBE TP SCH ×2 (09:22→20:35)
[2023-01-09] MEDS: VITAMINS A AND D 5 GM UD PKT TP SCH ×3 (09:23)
[2023-01-09] MEDS: REMEDY ESSENTIAL ZINC PASTE 113 GM TP SCH ×2 (09:23→20:36)
[2023-01-09 20:00] VITALS: TEMP 97.4
[2023-01-09] MEDS: MIRALAX 17 GM POWD.PACK GT SCH (20:32)
[2023-01-10] MEDS: ARGININE/GLUTAMINE/CALCIUM BMB 1 EACH POWD.PACK GT SCH ×2 (06:10→17:47)
[2023-01-10] MEDS: ASCORBIC ACID 500 MG TABLET GT SCH (06:11)
[2023-01-10] MEDS: OMEPRAZOLE 20 MG CAPSULE.DR GT SCH ×2 (06:11→20:22)
[2023-01-10] MEDS: BACLOFEN 10 MG TABLET GT SCH ×3 (06:11→21:53)
[2023-01-10] MEDS: JEVITY 1.2 1000 ML LIQUID GT PRN (06:17)
[2023-01-10 07:21] VITALS: TEMP 98
[2023-01-10] MEDS: ALBUTEROL SULFATE 2.5 MG/3 ML NEBU NEB SCH ×4 (07:35→19:09)
[2023-01-10] MEDS: IPRATROPIUM BROMIDE 0.5 MG/2.5 ML NEBU NEB SCH ×4 (07:35→19:09)
[2023-01-10] MEDS: PROTEIN SUPPLEMENT (PROSTAT) 30 ML LIQUID GT SCH (08:25)
[2023-01-10] MEDS: CULTURELLE CAPSULE GT SCH ×2 (08:28→20:16)
[2023-01-10] MEDS: PHENYTOIN 100 MG/4 ML UDC GT SCH ×2 (08:29→20:17)
[2023-01-10] MEDS: PHENOBARBITAL 64.8 MG TABLET GT SCH ×2 (08:29→20:18)
[2023-01-10] MEDS: CLOTRIMAZOLE 1% CREAM 30 GM TUBE TOP SCH ×4 (08:30→20:23)
[2023-01-10] MEDS: COD LIVER OIL/ZINC OXIDE OINT 113 GM TUBE TOP SCH ×4 (08:30→20:23)
[2023-01-10] MEDS: CHOLECALCIFEROL 400 UNITS TABLET GT SCH ×2 (08:30→20:22)
[2023-01-10] MEDS: REMEDY ESSENTIAL ZINC PASTE 113 GM TP SCH ×2 (08:31→20:23)
[2023-01-10] MEDS: VITAMINS A AND D 5 GM UD PKT TP SCH ×3 (08:31→08:36)
[2023-01-10] MEDS: COD LIVER OIL/ZINC OXIDE OINT 113 GM TUBE TP SCH ×2 (08:31→20:23)
[2023-01-10] MEDS: HYDROGEN PEROXIDE 3% 118 ML BOTTLE TOP SCH ×2 (08:38→19:09)
[2023-01-10 20:00] VITALS: TEMP 97.2
[2023-01-10] MEDS: MIRALAX 17 GM POWD.PACK GT SCH (20:18)
[2023-01-11] MEDS: JEVITY 1.2 1000 ML LIQUID GT PRN (04:10)
[2023-01-11] MEDS: BACLOFEN 10 MG TABLET GT SCH ×3 (05:40→22:05)
[2023-01-11] MEDS: ASCORBIC ACID 500 MG TABLET GT SCH (05:40)
[2023-01-11] MEDS: ARGININE/GLUTAMINE/CALCIUM BMB 1 EACH POWD.PACK GT SCH ×2 (05:40→18:26)
[2023-01-11] MEDS: OMEPRAZOLE 20 MG CAPSULE.DR GT SCH ×2 (05:41→20:48)
[2023-01-11] MEDS: IPRATROPIUM BROMIDE 0.5 MG/2.5 ML NEBU NEB SCH ×4 (07:12→19:16)
[2023-01-11] MEDS: ALBUTEROL SULFATE 2.5 MG/3 ML NEBU NEB SCH ×4 (07:13→19:16)
[2023-01-11] MEDS: HYDROGEN PEROXIDE 3% 118 ML BOTTLE TOP SCH ×2 (07:13→19:16)
[2023-01-11 07:27] VITALS: TEMP 97.7
[2023-01-11] MEDS: PROTEIN SUPPLEMENT (PROSTAT) 30 ML LIQUID GT SCH (08:56)
[2023-01-11] MEDS: CULTURELLE CAPSULE GT SCH ×2 (08:58→20:47)
[2023-01-11] MEDS: PHENYTOIN 100 MG/4 ML UDC GT SCH ×2 (09:02→20:47)
[2023-01-11] MEDS: PHENOBARBITAL 64.8 MG TABLET GT SCH ×2 (09:06→20:47)
[2023-01-11] MEDS: COD LIVER OIL/ZINC OXIDE OINT 113 GM TUBE TOP SCH ×4 (09:07→20:49)
[2023-01-11] MEDS: CHOLECALCIFEROL 400 UNITS TABLET GT SCH ×2 (09:07→20:49)
[2023-01-11] MEDS: CLOTRIMAZOLE 1% CREAM 30 GM TUBE TOP SCH ×4 (09:08→20:50)
[2023-01-11] MEDS: REMEDY ESSENTIAL ZINC PASTE 113 GM TP SCH ×2 (09:09→20:50)
[2023-01-11] MEDS: COD LIVER OIL/ZINC OXIDE OINT 113 GM TUBE TP SCH ×2 (09:09→20:50)
[2023-01-11] MEDS: VITAMINS A AND D 5 GM UD PKT TP SCH ×3 (09:10)
[2023-01-11 20:00] VITALS: TEMP 97.2
[2023-01-11] MEDS: MIRALAX 17 GM POWD.PACK GT SCH (20:48)
[2023-01-12] MEDS: BACLOFEN 10 MG TABLET GT SCH ×3 (06:07→21:53)
[2023-01-12] MEDS: ASCORBIC ACID 500 MG TABLET GT SCH (06:07)
[2023-01-12] MEDS: ARGININE/GLUTAMINE/CALCIUM BMB 1 EACH POWD.PACK GT SCH ×2 (06:07→18:00)
[2023-01-12] MEDS: OMEPRAZOLE 20 MG CAPSULE.DR GT SCH ×2 (06:08→20:53)
[2023-01-12] MEDS: JEVITY 1.2 1000 ML LIQUID GT PRN (06:08)
[2023-01-12] MEDS: ALBUTEROL SULFATE 2.5 MG/3 ML NEBU NEB SCH ×4 (07:16→19:06)
[2023-01-12] MEDS: IPRATROPIUM BROMIDE 0.5 MG/2.5 ML NEBU NEB SCH ×4 (07:16→19:06)
[2023-01-12 08:00] VITALS: TEMP 98.1
[2023-01-12] MEDS: PROTEIN SUPPLEMENT (PROSTAT) 30 ML LIQUID GT SCH (08:00)
[2023-01-12] MEDS: HYDROGEN PEROXIDE 3% 118 ML BOTTLE TOP SCH ×2 (08:48→19:06)
[2023-01-12] MEDS: PHENOBARBITAL 64.8 MG TABLET GT SCH ×2 (09:04→20:53)
[2023-01-12] MEDS: PHENYTOIN 100 MG/4 ML UDC GT SCH ×2 (09:04→20:53)
[2023-01-12] MEDS: CHOLECALCIFEROL 400 UNITS TABLET GT SCH ×2 (09:04→20:53)
[2023-01-12] MEDS: VITAMINS A AND D 5 GM UD PKT TP SCH ×3 (09:05)
[2023-01-12] MEDS: CLOTRIMAZOLE 1% CREAM 30 GM TUBE TOP SCH ×4 (09:05→20:54)
[2023-01-12] MEDS: COD LIVER OIL/ZINC OXIDE OINT 113 GM TUBE TOP SCH ×4 (09:05→20:54)
[2023-01-12] MEDS: COD LIVER OIL/ZINC OXIDE OINT 113 GM TUBE TP SCH ×2 (09:05→20:54)
[2023-01-12] MEDS: REMEDY ESSENTIAL ZINC PASTE 113 GM TP SCH ×2 (09:05→20:54)
[2023-01-12] MEDS: CULTURELLE CAPSULE GT SCH ×2 (09:08→20:53)
[2023-01-12 20:00] VITALS: TEMP 97.2
[2023-01-12] MEDS: MIRALAX 17 GM POWD.PACK GT SCH (20:53)
[2023-01-13] MEDS: ARGININE/GLUTAMINE/CALCIUM BMB 1 EACH POWD.PACK GT SCH ×2 (05:09→18:49)
[2023-01-13] MEDS: BACLOFEN 10 MG TABLET GT SCH ×3 (05:09→22:47)
[2023-01-13] MEDS: ASCORBIC ACID 500 MG TABLET GT SCH (05:09)
[2023-01-13] MEDS: OMEPRAZOLE 20 MG CAPSULE.DR GT SCH ×2 (05:49→20:56)
[2023-01-13] MEDS: HYDROGEN PEROXIDE 3% 118 ML BOTTLE TOP SCH ×2 (07:16→19:01)
[2023-01-13] MEDS: IPRATROPIUM BROMIDE 0.5 MG/2.5 ML NEBU NEB SCH ×4 (07:16→19:01)
[2023-01-13] MEDS: ALBUTEROL SULFATE 2.5 MG/3 ML NEBU NEB SCH ×4 (07:16→19:01)
[2023-01-13 07:22] VITALS: TEMP 97.9
[2023-01-13] MEDS: PROTEIN SUPPLEMENT (PROSTAT) 30 ML LIQUID GT SCH (08:00)
[2023-01-13] MEDS: CULTURELLE CAPSULE GT SCH ×2 (09:52→20:54)
[2023-01-13] MEDS: PHENYTOIN 100 MG/4 ML UDC GT SCH ×2 (09:54→20:56)
[2023-01-13] MEDS: CHOLECALCIFEROL 400 UNITS TABLET GT SCH ×2 (09:55→20:56)
[2023-01-13] MEDS: PHENOBARBITAL 64.8 MG TABLET GT SCH ×2 (09:55→20:56)
[2023-01-13] MEDS: COD LIVER OIL/ZINC OXIDE OINT 113 GM TUBE TOP SCH ×4 (09:56→20:56)
[2023-01-13] MEDS: COD LIVER OIL/ZINC OXIDE OINT 113 GM TUBE TP SCH ×2 (09:56→20:57)
[2023-01-13] MEDS: CLOTRIMAZOLE 1% CREAM 30 GM TUBE TOP SCH ×4 (09:56→20:56)
[2023-01-13] MEDS: REMEDY ESSENTIAL ZINC PASTE 113 GM TP SCH ×2 (09:57→20:57)
[2023-01-13] MEDS: VITAMINS A AND D 5 GM UD PKT TP SCH ×3 (09:57)
[2023-01-13 20:00] VITALS: TEMP 97.5
[2023-01-13] MEDS: MIRALAX 17 GM POWD.PACK GT SCH (20:56)
[2023-01-14] MEDS: JEVITY 1.2 1000 ML LIQUID GT PRN (02:35)
[2023-01-14] MEDS: OMEPRAZOLE 20 MG CAPSULE.DR GT SCH ×2 (06:02→20:18)
[2023-01-14] MEDS: ASCORBIC ACID 500 MG TABLET GT SCH (06:02)
[2023-01-14] MEDS: BACLOFEN 10 MG TABLET GT SCH ×3 (06:02→22:10)
[2023-01-14] MEDS: ARGININE/GLUTAMINE/CALCIUM BMB 1 EACH POWD.PACK GT SCH ×2 (06:02→18:05)
[2023-01-14 07:25] VITALS: TEMP 97.6
[2023-01-14] MEDS: ALBUTEROL SULFATE 2.5 MG/3 ML NEBU NEB SCH ×4 (07:57→19:15)
[2023-01-14] MEDS: IPRATROPIUM BROMIDE 0.5 MG/2.5 ML NEBU NEB SCH ×4 (07:57→19:14)
[2023-01-14] MEDS: HYDROGEN PEROXIDE 3% 118 ML BOTTLE TOP SCH ×2 (07:58→19:15)
[2023-01-14] MEDS: PROTEIN SUPPLEMENT (PROSTAT) 30 ML LIQUID GT SCH (08:00)
[2023-01-14] MEDS: REMEDY ESSENTIAL ZINC PASTE 113 GM TP SCH ×2 (09:00→20:19)
[2023-01-14] MEDS: CLOTRIMAZOLE 1% CREAM 30 GM TUBE TOP SCH ×4 (09:00→20:19)
[2023-01-14] MEDS: CHOLECALCIFEROL 400 UNITS TABLET GT SCH ×2 (09:00→20:19)
[2023-01-14] MEDS: COD LIVER OIL/ZINC OXIDE OINT 113 GM TUBE TP SCH ×2 (09:00→20:19)
[2023-01-14] MEDS: VITAMINS A AND D 5 GM UD PKT TP SCH ×3 (09:00)
[2023-01-14] MEDS: PHENYTOIN 100 MG/4 ML UDC GT SCH ×2 (09:00→20:18)
[2023-01-14] MEDS: COD LIVER OIL/ZINC OXIDE OINT 113 GM TUBE TOP SCH ×4 (09:00→20:19)
[2023-01-14] MEDS: CULTURELLE CAPSULE GT SCH ×2 (09:00→20:32)
[2023-01-14] MEDS: PHENOBARBITAL 64.8 MG TABLET GT SCH ×2 (09:00→20:18)
[2023-01-14 20:00] VITALS: TEMP 97.5
[2023-01-14] MEDS: MIRALAX 17 GM POWD.PACK GT SCH (20:18)
[2023-01-15] MEDS: BACLOFEN 10 MG TABLET GT SCH ×3 (05:20→22:29)
[2023-01-15] MEDS: ASCORBIC ACID 500 MG TABLET GT SCH (05:20)
[2023-01-15] MEDS: ARGININE/GLUTAMINE/CALCIUM BMB 1 EACH POWD.PACK GT SCH ×2 (05:20→17:10)
[2023-01-15] MEDS: JEVITY 1.2 1000 ML LIQUID GT PRN (05:21)
[2023-01-15] MEDS: OMEPRAZOLE 20 MG CAPSULE.DR GT SCH ×2 (06:15→20:08)
[2023-01-15] MEDS: HYDROGEN PEROXIDE 3% 118 ML BOTTLE TOP SCH ×2 (07:10→19:16)
[2023-01-15] MEDS: ALBUTEROL SULFATE 2.5 MG/3 ML NEBU NEB SCH ×4 (07:10→19:15)
[2023-01-15] MEDS: IPRATROPIUM BROMIDE 0.5 MG/2.5 ML NEBU NEB SCH ×4 (07:10→19:15)
[2023-01-15 08:00] VITALS: TEMP 97.8
[2023-01-15] MEDS: PROTEIN SUPPLEMENT (PROSTAT) 30 ML LIQUID GT SCH (08:00)
[2023-01-15] MEDS: PHENOBARBITAL 64.8 MG TABLET GT SCH ×2 (09:37→20:07)
[2023-01-15] MEDS: COD LIVER OIL/ZINC OXIDE OINT 113 GM TUBE TOP SCH ×4 (09:37→20:10)
[2023-01-15] MEDS: PHENYTOIN 100 MG/4 ML UDC GT SCH ×2 (09:37→20:07)
[2023-01-15] MEDS: CULTURELLE CAPSULE GT SCH ×2 (09:37→21:00)
[2023-01-15] MEDS: CHOLECALCIFEROL 400 UNITS TABLET GT SCH ×2 (09:37→20:08)
[2023-01-15] MEDS: COD LIVER OIL/ZINC OXIDE OINT 113 GM TUBE TP SCH ×2 (09:38→20:11)
[2023-01-15] MEDS: VITAMINS A AND D 5 GM UD PKT TP SCH ×3 (09:38)
[2023-01-15] MEDS: REMEDY ESSENTIAL ZINC PASTE 113 GM TP SCH ×2 (09:38→20:11)
[2023-01-15] MEDS: CLOTRIMAZOLE 1% CREAM 30 GM TUBE TOP SCH ×4 (09:38→20:11)
[2023-01-15 20:00] VITALS: TEMP 98.4
[2023-01-15] MEDS: MIRALAX 17 GM POWD.PACK GT SCH (20:08)
[2023-01-16] MEDS: BACLOFEN 10 MG TABLET GT SCH ×3 (05:09→22:00)
[2023-01-16] MEDS: ARGININE/GLUTAMINE/CALCIUM BMB 1 EACH POWD.PACK GT SCH ×2 (05:09→17:27)
[2023-01-16] MEDS: ASCORBIC ACID 500 MG TABLET GT SCH (05:09)
[2023-01-16] MEDS: JEVITY 1.2 1000 ML LIQUID GT PRN (05:10)
[2023-01-16] MEDS: OMEPRAZOLE 20 MG CAPSULE.DR GT SCH ×2 (05:43→20:14)
[2023-01-16] MEDS: ALBUTEROL SULFATE 2.5 MG/3 ML NEBU NEB SCH ×4 (07:22→19:25)
[2023-01-16] MEDS: IPRATROPIUM BROMIDE 0.5 MG/2.5 ML NEBU NEB SCH ×4 (07:22→19:25)
[2023-01-16] MEDS: HYDROGEN PEROXIDE 3% 118 ML BOTTLE TOP SCH ×2 (07:22→21:56)
[2023-01-16 08:00] VITALS: TEMP 97.5
[2023-01-16] MEDS: PROTEIN SUPPLEMENT (PROSTAT) 30 ML LIQUID GT SCH (08:55)
[2023-01-16] MEDS: PHENYTOIN 100 MG/4 ML UDC GT SCH ×2 (08:56→20:14)
[2023-01-16] MEDS: CHOLECALCIFEROL 400 UNITS TABLET GT SCH ×2 (08:56→20:16)
[2023-01-16] MEDS: CLOTRIMAZOLE 1% CREAM 30 GM TUBE TOP SCH ×4 (08:56→20:16)
[2023-01-16] MEDS: COD LIVER OIL/ZINC OXIDE OINT 113 GM TUBE TOP SCH ×4 (08:56→20:16)
[2023-01-16] MEDS: PHENOBARBITAL 64.8 MG TABLET GT SCH ×2 (08:56→20:14)
[2023-01-16] MEDS: CULTURELLE CAPSULE GT SCH ×2 (08:56→20:14)
[2023-01-16] MEDS: COD LIVER OIL/ZINC OXIDE OINT 113 GM TUBE TP SCH ×2 (08:57→20:16)
[2023-01-16] MEDS: REMEDY ESSENTIAL ZINC PASTE 113 GM TP SCH ×2 (08:57→20:16)
[2023-01-16] MEDS: VITAMINS A AND D 5 GM UD PKT TP SCH ×3 (08:57)
[2023-01-16] MEDS: MIRALAX 17 GM POWD.PACK GT SCH (20:14)
[2023-01-16 20:18] VITALS: TEMP 97
[2023-01-17] MEDS: ARGININE/GLUTAMINE/CALCIUM BMB 1 EACH POWD.PACK GT SCH ×2 (05:05→18:48)
[2023-01-17] MEDS: ASCORBIC ACID 500 MG TABLET GT SCH (05:05)
[2023-01-17] MEDS: BACLOFEN 10 MG TABLET GT SCH ×3 (05:05→21:14)
[2023-01-17] MEDS: JEVITY 1.2 1000 ML LIQUID GT PRN (05:06)
[2023-01-17] MEDS: OMEPRAZOLE 20 MG CAPSULE.DR GT SCH ×2 (05:52→21:14)
[2023-01-17 07:05] VITALS: O2SAT 98
[2023-01-17] MEDS: ALBUTEROL SULFATE 2.5 MG/3 ML NEBU NEB SCH ×4 (07:20→19:05)
[2023-01-17] MEDS: IPRATROPIUM BROMIDE 0.5 MG/2.5 ML NEBU NEB SCH ×4 (07:20→19:05)
[2023-01-17] MEDS: HYDROGEN PEROXIDE 3% 118 ML BOTTLE TOP SCH ×2 (07:20→19:06)
[2023-01-17] MEDS: PHENYTOIN 100 MG/4 ML UDC GT SCH ×2 (08:38→21:14)
[2023-01-17] MEDS: PHENOBARBITAL 64.8 MG TABLET GT SCH ×2 (08:38→21:14)
[2023-01-17] MEDS: COD LIVER OIL/ZINC OXIDE OINT 113 GM TUBE TOP SCH ×4 (08:38→21:14)
[2023-01-17] MEDS: CULTURELLE CAPSULE GT SCH ×2 (08:38→21:14)
[2023-01-17] MEDS: CHOLECALCIFEROL 400 UNITS TABLET GT SCH ×2 (08:38→21:14)
[2023-01-17] MEDS: PROTEIN SUPPLEMENT (PROSTAT) 30 ML LIQUID GT SCH (08:38)
[2023-01-17] MEDS: VITAMINS A AND D 5 GM UD PKT TP SCH ×3 (08:39)
[2023-01-17] MEDS: COD LIVER OIL/ZINC OXIDE OINT 113 GM TUBE TP SCH ×2 (08:39→21:14)
[2023-01-17] MEDS: CLOTRIMAZOLE 1% CREAM 30 GM TUBE TOP SCH ×4 (08:39→21:14)
[2023-01-17] MEDS: REMEDY ESSENTIAL ZINC PASTE 113 GM TP SCH ×2 (08:39→21:14)
[2023-01-17 08:55] VITALS: TEMP 97.5
[2023-01-17 19:43] VITALS: TEMP 98
[2023-01-17] MEDS: MIRALAX 17 GM POWD.PACK GT SCH (21:14)
[2023-01-18] MEDS: JEVITY 1.2 1000 ML LIQUID GT PRN (03:22)
[2023-01-18] MEDS: OMEPRAZOLE 20 MG CAPSULE.DR GT SCH ×2 (06:01→21:16)
[2023-01-18] MEDS: BACLOFEN 10 MG TABLET GT SCH ×3 (06:01→21:17)
[2023-01-18] MEDS: ARGININE/GLUTAMINE/CALCIUM BMB 1 EACH POWD.PACK GT SCH ×2 (06:01→18:25)
[2023-01-18] MEDS: ASCORBIC ACID 500 MG TABLET GT SCH (06:01)
[2023-01-18] MEDS: IPRATROPIUM BROMIDE 0.5 MG/2.5 ML NEBU NEB SCH ×4 (07:44→19:05)
[2023-01-18] MEDS: ALBUTEROL SULFATE 2.5 MG/3 ML NEBU NEB SCH ×4 (07:44→19:05)
[2023-01-18] MEDS: HYDROGEN PEROXIDE 3% 118 ML BOTTLE TOP SCH ×2 (07:44→19:05)
[2023-01-18 08:00] VITALS: TEMP 98.2
[2023-01-18] MEDS: PROTEIN SUPPLEMENT (PROSTAT) 30 ML LIQUID GT SCH (08:00)
[2023-01-18] MEDS: COD LIVER OIL/ZINC OXIDE OINT 113 GM TUBE TOP SCH ×4 (09:00→21:17)
[2023-01-18] MEDS: CLOTRIMAZOLE 1% CREAM 30 GM TUBE TOP SCH ×4 (09:00→21:17)
[2023-01-18] MEDS: PHENYTOIN 100 MG/4 ML UDC GT SCH ×2 (09:23→21:16)
[2023-01-18] MEDS: CHOLECALCIFEROL 400 UNITS TABLET GT SCH ×2 (09:25→21:16)
[2023-01-18] MEDS: PHENOBARBITAL 64.8 MG TABLET GT SCH ×2 (09:25→21:16)
[2023-01-18] MEDS: CULTURELLE CAPSULE GT SCH ×2 (09:26→21:12)
[2023-01-18] MEDS: VITAMINS A AND D 5 GM UD PKT TP SCH ×3 (09:27)
[2023-01-18] MEDS: REMEDY ESSENTIAL ZINC PASTE 113 GM TP SCH ×2 (09:27→21:17)
[2023-01-18] MEDS: COD LIVER OIL/ZINC OXIDE OINT 113 GM TUBE TP SCH ×2 (09:27→21:17)
[2023-01-18 20:00] VITALS: TEMP 97.9
[2023-01-18] MEDS: MIRALAX 17 GM POWD.PACK GT SCH (21:16)
[2023-01-19] MEDS: ASCORBIC ACID 500 MG TABLET GT SCH (05:16)
[2023-01-19] MEDS: OMEPRAZOLE 20 MG CAPSULE.DR GT SCH ×2 (05:16→20:59)
[2023-01-19] MEDS: ARGININE/GLUTAMINE/CALCIUM BMB 1 EACH POWD.PACK GT SCH ×2 (05:16→18:21)
[2023-01-19] MEDS: BACLOFEN 10 MG TABLET GT SCH ×3 (05:16→21:05)
[2023-01-19] MEDS: IPRATROPIUM BROMIDE 0.5 MG/2.5 ML NEBU NEB SCH ×4 (07:17→19:05)
[2023-01-19] MEDS: ALBUTEROL SULFATE 2.5 MG/3 ML NEBU NEB SCH ×4 (07:17→19:05)
[2023-01-19] MEDS: HYDROGEN PEROXIDE 3% 118 ML BOTTLE TOP SCH ×2 (07:17→19:05)
[2023-01-19 07:40] VITALS: TEMP 97.6
[2023-01-19] MEDS: PHENYTOIN 100 MG/4 ML UDC GT SCH ×2 (08:55→20:59)
[2023-01-19] MEDS: PROTEIN SUPPLEMENT (PROSTAT) 30 ML LIQUID GT SCH (08:55)
[2023-01-19] MEDS: CULTURELLE CAPSULE GT SCH ×2 (08:55→20:58)
[2023-01-19] MEDS: CHOLECALCIFEROL 400 UNITS TABLET GT SCH ×2 (08:56→20:59)
[2023-01-19] MEDS: PHENOBARBITAL 64.8 MG TABLET GT SCH ×2 (08:56→20:59)
[2023-01-19] MEDS: COD LIVER OIL/ZINC OXIDE OINT 113 GM TUBE TOP SCH ×4 (08:56→21:00)
[2023-01-19] MEDS: VITAMINS A AND D 5 GM UD PKT TP SCH ×3 (08:56)
[2023-01-19] MEDS: COD LIVER OIL/ZINC OXIDE OINT 113 GM TUBE TP SCH ×2 (08:56→21:00)
[2023-01-19] MEDS: REMEDY ESSENTIAL ZINC PASTE 113 GM TP SCH ×2 (08:56→21:01)
[2023-01-19] MEDS: CLOTRIMAZOLE 1% CREAM 30 GM TUBE TOP SCH ×4 (08:59→21:00)
[2023-01-19 20:00] VITALS: TEMP 97
[2023-01-19] MEDS: MIRALAX 17 GM POWD.PACK GT SCH (20:59)
[2023-01-20] MEDS: OMEPRAZOLE 20 MG CAPSULE.DR GT SCH ×2 (05:40→20:59)
[2023-01-20] MEDS: ARGININE/GLUTAMINE/CALCIUM BMB 1 EACH POWD.PACK GT SCH ×2 (05:40→17:25)
[2023-01-20] MEDS: ASCORBIC ACID 500 MG TABLET GT SCH (05:40)
[2023-01-20] MEDS: BACLOFEN 10 MG TABLET GT SCH ×3 (05:40→21:59)
[2023-01-20] MEDS: ALBUTEROL SULFATE 2.5 MG/3 ML NEBU NEB SCH ×4 (07:06→19:08)
[2023-01-20] MEDS: IPRATROPIUM BROMIDE 0.5 MG/2.5 ML NEBU NEB SCH ×4 (07:06→19:08)
[2023-01-20] MEDS: HYDROGEN PEROXIDE 3% 118 ML BOTTLE TOP SCH ×2 (07:06→19:09)
[2023-01-20 07:16] VITALS: TEMP 97.6
[2023-01-20] MEDS: PROTEIN SUPPLEMENT (PROSTAT) 30 ML LIQUID GT SCH (08:00)
[2023-01-20] MEDS: PHENOBARBITAL 64.8 MG TABLET GT SCH ×2 (09:18→20:59)
[2023-01-20] MEDS: CULTURELLE CAPSULE GT SCH ×2 (09:18→20:59)
[2023-01-20] MEDS: COD LIVER OIL/ZINC OXIDE OINT 113 GM TUBE TOP SCH ×4 (09:18→20:59)
[2023-01-20] MEDS: PHENYTOIN 100 MG/4 ML UDC GT SCH ×2 (09:18→20:59)
[2023-01-20] MEDS: CHOLECALCIFEROL 400 UNITS TABLET GT SCH ×2 (09:18→20:59)
[2023-01-20] MEDS: CLOTRIMAZOLE 1% CREAM 30 GM TUBE TOP SCH ×4 (09:18→20:59)
[2023-01-20] MEDS: COD LIVER OIL/ZINC OXIDE OINT 113 GM TUBE TP SCH ×2 (09:19→20:59)
[2023-01-20] MEDS: VITAMINS A AND D 5 GM UD PKT TP SCH ×3 (09:19)
[2023-01-20] MEDS: REMEDY ESSENTIAL ZINC PASTE 113 GM TP SCH ×2 (09:19→20:59)
[2023-01-20 20:19] VITALS: TEMP 97.5
[2023-01-20] MEDS: MIRALAX 17 GM POWD.PACK GT SCH (20:59)
[2023-01-21] MEDS: ARGININE/GLUTAMINE/CALCIUM BMB 1 EACH POWD.PACK GT SCH ×2 (06:06→18:25)
[2023-01-21] MEDS: ASCORBIC ACID 500 MG TABLET GT SCH (06:06)
[2023-01-21] MEDS: BACLOFEN 10 MG TABLET GT SCH ×3 (06:06→21:17)
[2023-01-21] MEDS: OMEPRAZOLE 20 MG CAPSULE.DR GT SCH ×2 (06:06→20:23)
[2023-01-21] MEDS: JEVITY 1.2 1000 ML LIQUID GT PRN (06:07)
[2023-01-21 07:16] VITALS: TEMP 97.5
[2023-01-21] MEDS: HYDROGEN PEROXIDE 3% 118 ML BOTTLE TOP SCH ×2 (07:35→19:18)
[2023-01-21] MEDS: ALBUTEROL SULFATE 2.5 MG/3 ML NEBU NEB SCH ×4 (07:35→19:17)
[2023-01-21] MEDS: IPRATROPIUM BROMIDE 0.5 MG/2.5 ML NEBU NEB SCH ×4 (07:35→19:17)
[2023-01-21] MEDS: PROTEIN SUPPLEMENT (PROSTAT) 30 ML LIQUID GT SCH (08:00)
[2023-01-21] MEDS: CULTURELLE CAPSULE GT SCH ×2 (09:05→20:23)
[2023-01-21] MEDS: COD LIVER OIL/ZINC OXIDE OINT 113 GM TUBE TOP SCH ×4 (09:05→20:24)
[2023-01-21] MEDS: PHENOBARBITAL 64.8 MG TABLET GT SCH ×2 (09:05→20:23)
[2023-01-21] MEDS: CHOLECALCIFEROL 400 UNITS TABLET GT SCH ×2 (09:05→20:23)
[2023-01-21] MEDS: PHENYTOIN 100 MG/4 ML UDC GT SCH ×2 (09:05→20:23)
[2023-01-21] MEDS: REMEDY ESSENTIAL ZINC PASTE 113 GM TP SCH ×2 (09:06→20:25)
[2023-01-21] MEDS: COD LIVER OIL/ZINC OXIDE OINT 113 GM TUBE TP SCH ×2 (09:06→20:25)
[2023-01-21] MEDS: VITAMINS A AND D 5 GM UD PKT TP SCH ×3 (09:06)
[2023-01-21] MEDS: CLOTRIMAZOLE 1% CREAM 30 GM TUBE TOP SCH ×4 (09:06→20:25)
[2023-01-21 19:55] VITALS: TEMP 98.2
[2023-01-21] MEDS: MIRALAX 17 GM POWD.PACK GT SCH (20:23)
[2023-01-22] MEDS: ASCORBIC ACID 500 MG TABLET GT SCH (05:10)
[2023-01-22] MEDS: BACLOFEN 10 MG TABLET GT SCH ×3 (05:10→21:24)
[2023-01-22] MEDS: ARGININE/GLUTAMINE/CALCIUM BMB 1 EACH POWD.PACK GT SCH ×2 (05:10→17:36)
[2023-01-22] MEDS: OMEPRAZOLE 20 MG CAPSULE.DR GT SCH ×2 (06:12→20:29)
[2023-01-22] MEDS: IPRATROPIUM BROMIDE 0.5 MG/2.5 ML NEBU NEB SCH ×4 (07:09→19:30)
[2023-01-22] MEDS: ALBUTEROL SULFATE 2.5 MG/3 ML NEBU NEB SCH ×4 (07:09→19:30)
[2023-01-22 07:28] VITALS: TEMP 97.6
[2023-01-22] MEDS: PROTEIN SUPPLEMENT (PROSTAT) 30 ML LIQUID GT SCH (08:00)
[2023-01-22] MEDS: HYDROGEN PEROXIDE 3% 118 ML BOTTLE TOP SCH ×2 (08:39→20:53)
[2023-01-22] MEDS: CULTURELLE CAPSULE GT SCH ×2 (09:38→20:28)
[2023-01-22] MEDS: CLOTRIMAZOLE 1% CREAM 30 GM TUBE TOP SCH ×4 (09:39→20:31)
[2023-01-22] MEDS: PHENYTOIN 100 MG/4 ML UDC GT SCH ×2 (09:39→20:28)
[2023-01-22] MEDS: COD LIVER OIL/ZINC OXIDE OINT 113 GM TUBE TOP SCH ×4 (09:39→20:29)
[2023-01-22] MEDS: PHENOBARBITAL 64.8 MG TABLET GT SCH ×2 (09:39→20:28)
[2023-01-22] MEDS: CHOLECALCIFEROL 400 UNITS TABLET GT SCH ×2 (09:39→20:29)
[2023-01-22] MEDS: COD LIVER OIL/ZINC OXIDE OINT 113 GM TUBE TP SCH ×2 (09:40→20:31)
[2023-01-22] MEDS: REMEDY ESSENTIAL ZINC PASTE 113 GM TP SCH ×2 (09:40→20:31)
[2023-01-22] MEDS: VITAMINS A AND D 5 GM UD PKT TP SCH ×3 (09:40)
[2023-01-22 20:00] VITALS: TEMP 98.6
[2023-01-22] MEDS: MIRALAX 17 GM POWD.PACK GT SCH (20:29)
[2023-01-23] MEDS: ASCORBIC ACID 500 MG TABLET GT SCH (05:27)
[2023-01-23] MEDS: ARGININE/GLUTAMINE/CALCIUM BMB 1 EACH POWD.PACK GT SCH ×2 (05:27→17:38)
[2023-01-23] MEDS: BACLOFEN 10 MG TABLET GT SCH ×3 (05:27→21:51)
[2023-01-23] MEDS: OMEPRAZOLE 20 MG CAPSULE.DR GT SCH ×2 (06:08→20:23)
[2023-01-23 07:20] VITALS: TEMP 97.7
[2023-01-23] MEDS: ALBUTEROL SULFATE 2.5 MG/3 ML NEBU NEB SCH ×4 (08:06→19:12)
[2023-01-23] MEDS: IPRATROPIUM BROMIDE 0.5 MG/2.5 ML NEBU NEB SCH ×4 (08:06→19:12)
[2023-01-23] MEDS: HYDROGEN PEROXIDE 3% 118 ML BOTTLE TOP SCH ×2 (08:07→19:12)
[2023-01-23] MEDS: PHENYTOIN 100 MG/4 ML UDC GT SCH ×2 (08:24→20:22)
[2023-01-23] MEDS: PROTEIN SUPPLEMENT (PROSTAT) 30 ML LIQUID GT SCH (08:24)
[2023-01-23] MEDS: PHENOBARBITAL 64.8 MG TABLET GT SCH ×2 (08:24→20:22)
[2023-01-23] MEDS: CULTURELLE CAPSULE GT SCH ×2 (08:24→20:22)
[2023-01-23] MEDS: CLOTRIMAZOLE 1% CREAM 30 GM TUBE TOP SCH ×4 (08:26→20:23)
[2023-01-23] MEDS: VITAMINS A AND D 5 GM UD PKT TP SCH ×3 (08:26→08:27)
[2023-01-23] MEDS: COD LIVER OIL/ZINC OXIDE OINT 113 GM TUBE TP SCH ×2 (08:26→20:24)
[2023-01-23] MEDS: CHOLECALCIFEROL 400 UNITS TABLET GT SCH ×2 (08:26→20:23)
[2023-01-23] MEDS: REMEDY ESSENTIAL ZINC PASTE 113 GM TP SCH ×2 (08:26→20:25)
[2023-01-23] MEDS: COD LIVER OIL/ZINC OXIDE OINT 113 GM TUBE TOP SCH ×4 (08:26→20:23)
[2023-01-23 19:52] VITALS: TEMP 96.4
[2023-01-23] MEDS: MIRALAX 17 GM POWD.PACK GT SCH (20:22)
[2023-01-24] MEDS: ASCORBIC ACID 500 MG TABLET GT SCH (05:12)
[2023-01-24] MEDS: ARGININE/GLUTAMINE/CALCIUM BMB 1 EACH POWD.PACK GT SCH ×2 (05:12→18:23)
[2023-01-24] MEDS: BACLOFEN 10 MG TABLET GT SCH ×3 (05:12→22:57)
[2023-01-24] MEDS: OMEPRAZOLE 20 MG CAPSULE.DR GT SCH ×2 (05:38→20:21)
[2023-01-24 07:23] VITALS: TEMP 97.6
[2023-01-24] MEDS: ALBUTEROL SULFATE 2.5 MG/3 ML NEBU NEB SCH ×4 (07:35→19:21)
[2023-01-24] MEDS: IPRATROPIUM BROMIDE 0.5 MG/2.5 ML NEBU NEB SCH ×4 (07:35→19:21)
[2023-01-24] MEDS: PROTEIN SUPPLEMENT (PROSTAT) 30 ML LIQUID GT SCH (08:39)
[2023-01-24] MEDS: CLOTRIMAZOLE 1% CREAM 30 GM TUBE TOP SCH ×2 (08:40)
[2023-01-24] MEDS: COD LIVER OIL/ZINC OXIDE OINT 113 GM TUBE TOP SCH ×2 (08:40)
[2023-01-24] MEDS: REMEDY ESSENTIAL ZINC PASTE 113 GM TP SCH ×2 (08:40→20:30)
[2023-01-24] MEDS: CULTURELLE CAPSULE GT SCH ×2 (08:40→20:19)
[2023-01-24] MEDS: COD LIVER OIL/ZINC OXIDE OINT 113 GM TUBE TP SCH ×2 (08:40→20:30)
[2023-01-24] MEDS: PHENYTOIN 100 MG/4 ML UDC GT SCH ×2 (08:40→20:19)
[2023-01-24] MEDS: PHENOBARBITAL 64.8 MG TABLET GT SCH ×2 (08:40→20:21)
[2023-01-24] MEDS: CHOLECALCIFEROL 400 UNITS TABLET GT SCH ×2 (08:40→20:21)
[2023-01-24] MEDS: VITAMINS A AND D 5 GM UD PKT TP SCH ×3 (08:40)
[2023-01-24] MEDS: HYDROGEN PEROXIDE 3% 118 ML BOTTLE TOP SCH ×2 (09:28→21:22)
[2023-01-24 20:00] VITALS: TEMP 97
[2023-01-24] MEDS: MIRALAX 17 GM POWD.PACK GT SCH (20:21)
[2023-01-25] MEDS: BACLOFEN 10 MG TABLET GT SCH ×3 (05:14→21:14)
[2023-01-25] MEDS: ARGININE/GLUTAMINE/CALCIUM BMB 1 EACH POWD.PACK GT SCH ×2 (05:14→17:10)
[2023-01-25] MEDS: ASCORBIC ACID 500 MG TABLET GT SCH (05:14)
[2023-01-25] MEDS: OMEPRAZOLE 20 MG CAPSULE.DR GT SCH ×2 (06:36→21:13)
[2023-01-25] MEDS: HYDROGEN PEROXIDE 3% 118 ML BOTTLE TOP SCH ×2 (07:06→19:15)
[2023-01-25] MEDS: IPRATROPIUM BROMIDE 0.5 MG/2.5 ML NEBU NEB SCH ×4 (07:06→19:15)
[2023-01-25] MEDS: ALBUTEROL SULFATE 2.5 MG/3 ML NEBU NEB SCH ×4 (07:06→19:15)
[2023-01-25 08:00] VITALS: TEMP 97.5
[2023-01-25] MEDS: PROTEIN SUPPLEMENT (PROSTAT) 30 ML LIQUID GT SCH (08:27)
[2023-01-25] MEDS: CULTURELLE CAPSULE GT SCH ×2 (08:27→21:11)
[2023-01-25] MEDS: PHENYTOIN 100 MG/4 ML UDC GT SCH ×2 (08:27→21:11)
[2023-01-25] MEDS: COD LIVER OIL/ZINC OXIDE OINT 113 GM TUBE TP SCH ×2 (08:28→21:14)
[2023-01-25] MEDS: VITAMINS A AND D 5 GM UD PKT TP SCH ×3 (08:28)
[2023-01-25] MEDS: PHENOBARBITAL 64.8 MG TABLET GT SCH ×2 (08:28→21:12)
[2023-01-25] MEDS: REMEDY ESSENTIAL ZINC PASTE 113 GM TP SCH ×2 (08:28→21:14)
[2023-01-25] MEDS: CHOLECALCIFEROL 400 UNITS TABLET GT SCH ×2 (08:28→21:13)
[2023-01-25] MEDS: JEVITY 1.2 1000 ML LIQUID GT PRN (15:17)
[2023-01-25 20:00] VITALS: TEMP 97; TEMP 97.8
[2023-01-25] MEDS: MIRALAX 17 GM POWD.PACK GT SCH (21:12)
[2023-01-26] MEDS: ARGININE/GLUTAMINE/CALCIUM BMB 1 EACH POWD.PACK GT SCH ×2 (05:18→17:21)
[2023-01-26] MEDS: BACLOFEN 10 MG TABLET GT SCH ×3 (05:18→22:06)
[2023-01-26] MEDS: OMEPRAZOLE 20 MG CAPSULE.DR GT SCH ×2 (05:19→20:25)
[2023-01-26] MEDS: ASCORBIC ACID 500 MG TABLET GT SCH (05:19)
[2023-01-26] MEDS: ALBUTEROL SULFATE 2.5 MG/3 ML NEBU NEB SCH ×4 (07:08→19:11)
[2023-01-26] MEDS: IPRATROPIUM BROMIDE 0.5 MG/2.5 ML NEBU NEB SCH ×4 (07:08→19:11)
[2023-01-26 07:26] VITALS: TEMP 97.6
[2023-01-26] MEDS: PROTEIN SUPPLEMENT (PROSTAT) 30 ML LIQUID GT SCH (08:00)
[2023-01-26] MEDS: PHENYTOIN 100 MG/4 ML UDC GT SCH ×2 (09:28→20:25)
[2023-01-26] MEDS: CULTURELLE CAPSULE GT SCH ×2 (09:31→20:25)
[2023-01-26] MEDS: PHENOBARBITAL 64.8 MG TABLET GT SCH ×2 (09:34→20:25)
[2023-01-26] MEDS: VITAMINS A AND D 5 GM UD PKT TP SCH ×3 (09:35)
[2023-01-26] MEDS: REMEDY ESSENTIAL ZINC PASTE 113 GM TP SCH ×2 (09:35→20:26)
[2023-01-26] MEDS: COD LIVER OIL/ZINC OXIDE OINT 113 GM TUBE TP SCH ×2 (09:35→20:26)
[2023-01-26] MEDS: CHOLECALCIFEROL 400 UNITS TABLET GT SCH ×2 (09:35→20:25)
[2023-01-26] MEDS: HYDROGEN PEROXIDE 3% 118 ML BOTTLE TOP SCH ×2 (09:56→19:12)
[2023-01-26] MEDS: BETAMET DP 0.05% AUGM CR 15 GM CREAM.GM. TP PRN (12:49)
[2023-01-26] MEDS: JEVITY 1.2 1000 ML LIQUID GT PRN (14:17)
[2023-01-26 19:54] VITALS: TEMP 97.2
[2023-01-26] MEDS: MIRALAX 17 GM POWD.PACK GT SCH (20:25)
[2023-01-27] MEDS: ARGININE/GLUTAMINE/CALCIUM BMB 1 EACH POWD.PACK GT SCH ×2 (05:08→17:50)
[2023-01-27] MEDS: BACLOFEN 10 MG TABLET GT SCH ×3 (05:08→21:05)
[2023-01-27] MEDS: ASCORBIC ACID 500 MG TABLET GT SCH (05:08)
[2023-01-27] MEDS: OMEPRAZOLE 20 MG CAPSULE.DR GT SCH ×2 (05:41→20:44)
[2023-01-27] MEDS: IPRATROPIUM BROMIDE 0.5 MG/2.5 ML NEBU NEB SCH ×4 (07:18→19:07)
[2023-01-27] MEDS: ALBUTEROL SULFATE 2.5 MG/3 ML NEBU NEB SCH ×4 (07:18→19:07)
[2023-01-27 07:26] VITALS: TEMP 97.6
[2023-01-27] MEDS: PROTEIN SUPPLEMENT (PROSTAT) 30 ML LIQUID GT SCH (08:00)
[2023-01-27] MEDS: HYDROGEN PEROXIDE 3% 118 ML BOTTLE TOP SCH ×2 (08:23→19:07)
[2023-01-27] MEDS: CHOLECALCIFEROL 400 UNITS TABLET GT SCH ×2 (09:27→20:44)
[2023-01-27] MEDS: PHENYTOIN 100 MG/4 ML UDC GT SCH ×2 (09:27→20:41)
[2023-01-27] MEDS: PHENOBARBITAL 64.8 MG TABLET GT SCH ×2 (09:27→20:40)
[2023-01-27] MEDS: CULTURELLE CAPSULE GT SCH ×2 (09:27→20:51)
[2023-01-27] MEDS: VITAMINS A AND D 5 GM UD PKT TP SCH ×3 (09:28)
[2023-01-27] MEDS: COD LIVER OIL/ZINC OXIDE OINT 113 GM TUBE TP SCH ×2 (09:28→20:42)
[2023-01-27] MEDS: REMEDY ESSENTIAL ZINC PASTE 113 GM TP SCH ×2 (09:28→20:43)
[2023-01-27] MEDS: JEVITY 1.2 1000 ML LIQUID GT PRN (12:42)
[2023-01-27 20:00] VITALS: TEMP 97.4
[2023-01-27] MEDS: MIRALAX 17 GM POWD.PACK GT SCH (20:44)
[2023-01-28] MEDS: ARGININE/GLUTAMINE/CALCIUM BMB 1 EACH POWD.PACK GT SCH ×2 (05:33→17:57)
[2023-01-28] MEDS: BACLOFEN 10 MG TABLET GT SCH ×3 (05:33→21:03)
[2023-01-28] MEDS: ASCORBIC ACID 500 MG TABLET GT SCH (05:33)
[2023-01-28] MEDS: OMEPRAZOLE 20 MG CAPSULE.DR GT SCH ×2 (05:33→20:01)
[2023-01-28 07:23] VITALS: TEMP 97
[2023-01-28] MEDS: PROTEIN SUPPLEMENT (PROSTAT) 30 ML LIQUID GT SCH (08:00)
[2023-01-28] MEDS: ALBUTEROL SULFATE 2.5 MG/3 ML NEBU NEB SCH ×4 (08:31→19:11)
[2023-01-28] MEDS: IPRATROPIUM BROMIDE 0.5 MG/2.5 ML NEBU NEB SCH ×4 (08:31→19:11)
[2023-01-28] MEDS: HYDROGEN PEROXIDE 3% 118 ML BOTTLE TOP SCH ×2 (08:31→19:11)
[2023-01-28] MEDS: CULTURELLE CAPSULE GT SCH ×2 (09:37→20:01)
[2023-01-28] MEDS: PHENYTOIN 100 MG/4 ML UDC GT SCH ×2 (09:37→20:01)
[2023-01-28] MEDS: CHOLECALCIFEROL 400 UNITS TABLET GT SCH ×2 (09:38→20:03)
[2023-01-28] MEDS: PHENOBARBITAL 64.8 MG TABLET GT SCH ×2 (09:38→20:01)
[2023-01-28] MEDS: COD LIVER OIL/ZINC OXIDE OINT 113 GM TUBE TP SCH ×2 (09:38→20:03)
[2023-01-28] MEDS: REMEDY ESSENTIAL ZINC PASTE 113 GM TP SCH ×2 (09:39→20:03)
[2023-01-28] MEDS: VITAMINS A AND D 5 GM UD PKT TP SCH ×3 (09:39)
[2023-01-28] MEDS: BETAMET DP 0.05% AUGM CR 15 GM CREAM.GM. TP PRN (12:52)
[2023-01-28] MEDS: JEVITY 1.2 1000 ML LIQUID GT PRN (13:07)
[2023-01-28] MEDS: MIRALAX 17 GM POWD.PACK GT SCH (20:01)
[2023-01-28 20:15] VITALS: TEMP 97.9
[2023-01-29] MEDS: BACLOFEN 10 MG TABLET GT SCH ×3 (05:46→22:43)
[2023-01-29] MEDS: OMEPRAZOLE 20 MG CAPSULE.DR GT SCH ×2 (05:46→20:36)
[2023-01-29] MEDS: ARGININE/GLUTAMINE/CALCIUM BMB 1 EACH POWD.PACK GT SCH ×2 (05:46→17:56)
[2023-01-29] MEDS: ASCORBIC ACID 500 MG TABLET GT SCH (05:46)
[2023-01-29] MEDS: HYDROGEN PEROXIDE 3% 118 ML BOTTLE TOP SCH ×2 (07:18→19:16)
[2023-01-29] MEDS: ALBUTEROL SULFATE 2.5 MG/3 ML NEBU NEB SCH ×4 (07:18→19:16)
[2023-01-29] MEDS: IPRATROPIUM BROMIDE 0.5 MG/2.5 ML NEBU NEB SCH ×4 (07:18→19:16)
[2023-01-29 08:00] VITALS: TEMP 97.8
[2023-01-29] MEDS: PROTEIN SUPPLEMENT (PROSTAT) 30 ML LIQUID GT SCH (08:31)
[2023-01-29] MEDS: CULTURELLE CAPSULE GT SCH ×2 (08:32→20:28)
[2023-01-29] MEDS: PHENYTOIN 100 MG/4 ML UDC GT SCH ×2 (08:32→20:28)
[2023-01-29] MEDS: PHENOBARBITAL 64.8 MG TABLET GT SCH ×2 (08:32→20:36)
[2023-01-29] MEDS: REMEDY ESSENTIAL ZINC PASTE 113 GM TP SCH ×2 (08:33→20:37)
[2023-01-29] MEDS: COD LIVER OIL/ZINC OXIDE OINT 113 GM TUBE TP SCH ×2 (08:33→20:36)
[2023-01-29] MEDS: VITAMINS A AND D 5 GM UD PKT TP SCH ×3 (08:33)
[2023-01-29] MEDS: CHOLECALCIFEROL 400 UNITS TABLET GT SCH ×2 (08:41→20:36)
[2023-01-29 20:00] VITALS: TEMP 97.6
[2023-01-29] MEDS: NEOMY/BACITRAC/POLYMI OINT 28.35 GM TUBE TOP SCH ×2 (20:28→20:37)
[2023-01-29] MEDS: MIRALAX 17 GM POWD.PACK GT SCH (20:36)
[2023-01-30] MEDS: ASCORBIC ACID 500 MG TABLET GT SCH (06:05)
[2023-01-30] MEDS: ARGININE/GLUTAMINE/CALCIUM BMB 1 EACH POWD.PACK GT SCH ×2 (06:05→18:22)
[2023-01-30] MEDS: OMEPRAZOLE 20 MG CAPSULE.DR GT SCH ×2 (06:05→20:17)
[2023-01-30] MEDS: BACLOFEN 10 MG TABLET GT SCH ×3 (06:05→21:34)
[2023-01-30] MEDS: HYDROGEN PEROXIDE 3% 118 ML BOTTLE TOP SCH ×2 (07:13→20:54)
[2023-01-30] MEDS: ALBUTEROL SULFATE 2.5 MG/3 ML NEBU NEB SCH ×4 (07:13→19:04)
[2023-01-30] MEDS: IPRATROPIUM BROMIDE 0.5 MG/2.5 ML NEBU NEB SCH ×4 (07:13→19:04)
[2023-01-30 08:00] VITALS: TEMP 97.8
[2023-01-30] MEDS: PROTEIN SUPPLEMENT (PROSTAT) 30 ML LIQUID GT SCH (08:00)
[2023-01-30] MEDS: NEOMY/BACITRAC/POLYMI OINT 28.35 GM TUBE TOP SCH ×2 (09:00→20:18)
[2023-01-30] MEDS: COD LIVER OIL/ZINC OXIDE OINT 113 GM TUBE TP SCH ×2 (09:00→20:18)
[2023-01-30] MEDS: CHOLECALCIFEROL 400 UNITS TABLET GT SCH ×2 (09:26→20:18)
[2023-01-30] MEDS: PHENOBARBITAL 64.8 MG TABLET GT SCH ×2 (09:26→20:17)
[2023-01-30] MEDS: CULTURELLE CAPSULE GT SCH ×2 (09:26→20:16)
[2023-01-30] MEDS: REMEDY ESSENTIAL ZINC PASTE 113 GM TP SCH ×2 (09:26→20:18)
[2023-01-30] MEDS: PHENYTOIN 100 MG/4 ML UDC GT SCH ×2 (09:26→20:16)
[2023-01-30] MEDS: VITAMINS A AND D 5 GM UD PKT TP SCH ×3 (09:26)
[2023-01-30] MEDS: JEVITY 1.2 1000 ML LIQUID GT PRN (14:09)
[2023-01-30 20:00] VITALS: TEMP 97.6
[2023-01-30] MEDS: MIRALAX 17 GM POWD.PACK GT SCH (20:17)
[2023-01-31] MEDS: BACLOFEN 10 MG TABLET GT SCH ×3 (05:19→21:09)
[2023-01-31] MEDS: ARGININE/GLUTAMINE/CALCIUM BMB 1 EACH POWD.PACK GT SCH ×2 (05:19→18:00)
[2023-01-31] MEDS: ASCORBIC ACID 500 MG TABLET GT SCH (05:19)
[2023-01-31] MEDS: OMEPRAZOLE 20 MG CAPSULE.DR GT SCH ×2 (06:33→20:57)
[2023-01-31] MEDS: ALBUTEROL SULFATE 2.5 MG/3 ML NEBU NEB SCH ×4 (07:21→19:08)
[2023-01-31] MEDS: HYDROGEN PEROXIDE 3% 118 ML BOTTLE TOP SCH ×2 (07:21→19:08)
[2023-01-31] MEDS: IPRATROPIUM BROMIDE 0.5 MG/2.5 ML NEBU NEB SCH ×4 (07:21→19:08)
[2023-01-31 08:00] VITALS: TEMP 97.8
[2023-01-31] MEDS: CULTURELLE CAPSULE GT SCH ×2 (08:34→20:53)
[2023-01-31] MEDS: PROTEIN SUPPLEMENT (PROSTAT) 30 ML LIQUID GT SCH (08:34)
[2023-01-31] MEDS: PHENYTOIN 100 MG/4 ML UDC GT SCH ×2 (08:36→20:54)
[2023-01-31] MEDS: PHENOBARBITAL 64.8 MG TABLET GT SCH ×2 (08:37→20:56)
[2023-01-31] MEDS: CHOLECALCIFEROL 400 UNITS TABLET GT SCH ×2 (08:37→20:57)
[2023-01-31] MEDS: VITAMINS A AND D 5 GM UD PKT TP SCH ×3 (08:38)
[2023-01-31] MEDS: NEOMY/BACITRAC/POLYMI OINT 28.35 GM TUBE TOP SCH ×2 (08:38→20:58)
[2023-01-31] MEDS: REMEDY ESSENTIAL ZINC PASTE 113 GM TP SCH ×2 (08:38→20:58)
[2023-01-31] MEDS: COD LIVER OIL/ZINC OXIDE OINT 113 GM TUBE TP SCH ×2 (08:38→20:58)
[2023-01-31] MEDS: JEVITY 1.2 1000 ML LIQUID GT PRN (08:39)
[2023-01-31 20:00] VITALS: TEMP 97.4
[2023-01-31] MEDS: MIRALAX 17 GM POWD.PACK GT SCH (20:57)
[2023-02-01] MEDS: JEVITY 1.2 1000 ML LIQUID GT PRN (05:00)
[2023-02-01] MEDS: ASCORBIC ACID 500 MG TABLET GT SCH (05:11)
[2023-02-01] MEDS: ARGININE/GLUTAMINE/CALCIUM BMB 1 EACH POWD.PACK GT SCH ×2 (05:11→17:03)
[2023-02-01] MEDS: OMEPRAZOLE 20 MG CAPSULE.DR GT SCH ×2 (05:11→21:03)
[2023-02-01] MEDS: BACLOFEN 10 MG TABLET GT SCH ×3 (05:11→21:03)
[2023-02-01] MEDS: IPRATROPIUM BROMIDE 0.5 MG/2.5 ML NEBU NEB SCH ×4 (07:35→19:01)
[2023-02-01] MEDS: ALBUTEROL SULFATE 2.5 MG/3 ML NEBU NEB SCH ×4 (07:35→19:01)
[2023-02-01 08:00] VITALS: TEMP 97.6
[2023-02-01] MEDS: CULTURELLE CAPSULE GT SCH ×2 (08:52→20:55)
[2023-02-01] MEDS: PROTEIN SUPPLEMENT (PROSTAT) 30 ML LIQUID GT SCH (08:52)
[2023-02-01] MEDS: PHENYTOIN 100 MG/4 ML UDC GT SCH ×2 (08:54→20:56)
[2023-02-01] MEDS: CHOLECALCIFEROL 400 UNITS TABLET GT SCH ×2 (08:54→21:03)
[2023-02-01] MEDS: PHENOBARBITAL 64.8 MG TABLET GT SCH ×2 (08:54→20:59)
[2023-02-01] MEDS: COD LIVER OIL/ZINC OXIDE OINT 113 GM TUBE TP SCH ×2 (08:55→21:03)
[2023-02-01] MEDS: REMEDY ESSENTIAL ZINC PASTE 113 GM TP SCH ×2 (08:55→21:03)
[2023-02-01] MEDS: VITAMINS A AND D 5 GM UD PKT TP SCH ×3 (08:55)
[2023-02-01] MEDS: NEOMY/BACITRAC/POLYMI OINT 28.35 GM TUBE TOP SCH ×2 (08:55→21:03)
[2023-02-01] MEDS: HYDROGEN PEROXIDE 3% 118 ML BOTTLE TOP SCH ×2 (09:48→19:01)
[2023-02-01 20:00] VITALS: TEMP 98.2
[2023-02-01] MEDS: MIRALAX 17 GM POWD.PACK GT SCH (21:01)
[2023-02-02] MEDS: ASCORBIC ACID 500 MG TABLET GT SCH (05:29)
[2023-02-02] MEDS: ARGININE/GLUTAMINE/CALCIUM BMB 1 EACH POWD.PACK GT SCH ×2 (05:29→17:22)
[2023-02-02] MEDS: BACLOFEN 10 MG TABLET GT SCH ×3 (05:29→22:35)
[2023-02-02] MEDS: OMEPRAZOLE 20 MG CAPSULE.DR GT SCH ×2 (05:30→20:02)
[2023-02-02] MEDS: JEVITY 1.2 1000 ML LIQUID GT PRN (05:31)
[2023-02-02 07:51] VITALS: TEMP 97.2
[2023-02-02] MEDS: ALBUTEROL SULFATE 2.5 MG/3 ML NEBU NEB SCH ×4 (07:57→19:04)
[2023-02-02] MEDS: IPRATROPIUM BROMIDE 0.5 MG/2.5 ML NEBU NEB SCH ×4 (07:57→19:04)
[2023-02-02] MEDS: HYDROGEN PEROXIDE 3% 118 ML BOTTLE TOP SCH ×2 (07:57→19:05)
[2023-02-02] MEDS: PROTEIN SUPPLEMENT (PROSTAT) 30 ML LIQUID GT SCH (08:42)
[2023-02-02] MEDS: COD LIVER OIL/ZINC OXIDE OINT 113 GM TUBE TP SCH ×2 (08:42→20:02)
[2023-02-02] MEDS: PHENOBARBITAL 64.8 MG TABLET GT SCH ×2 (08:42→20:01)
[2023-02-02] MEDS: CULTURELLE CAPSULE GT SCH ×2 (08:42→20:01)
[2023-02-02] MEDS: VITAMINS A AND D 5 GM UD PKT TP SCH ×3 (08:42)
[2023-02-02] MEDS: NEOMY/BACITRAC/POLYMI OINT 28.35 GM TUBE TOP SCH ×2 (08:42→20:02)
[2023-02-02] MEDS: PHENYTOIN 100 MG/4 ML UDC GT SCH ×2 (08:42→20:01)
[2023-02-02] MEDS: CHOLECALCIFEROL 400 UNITS TABLET GT SCH ×2 (08:42→20:02)
[2023-02-02] MEDS: REMEDY ESSENTIAL ZINC PASTE 113 GM TP SCH ×2 (08:42→20:02)
[2023-02-02 19:36] VITALS: TEMP 98
[2023-02-02] MEDS: MIRALAX 17 GM POWD.PACK GT SCH (20:02)
[2023-02-03] MEDS: ARGININE/GLUTAMINE/CALCIUM BMB 1 EACH POWD.PACK GT SCH ×2 (05:26→17:41)
[2023-02-03] MEDS: BACLOFEN 10 MG TABLET GT SCH ×3 (05:26→22:00)
[2023-02-03] MEDS: ASCORBIC ACID 500 MG TABLET GT SCH (05:27)
[2023-02-03] MEDS: JEVITY 1.2 1000 ML LIQUID GT PRN (05:28)
[2023-02-03] MEDS: OMEPRAZOLE 20 MG CAPSULE.DR GT SCH ×2 (05:31→23:43)
[2023-02-03] MEDS: HYDROGEN PEROXIDE 3% 118 ML BOTTLE TOP SCH ×2 (07:08→19:11)
[2023-02-03] MEDS: ALBUTEROL SULFATE 2.5 MG/3 ML NEBU NEB SCH ×4 (07:08→19:11)
[2023-02-03] MEDS: IPRATROPIUM BROMIDE 0.5 MG/2.5 ML NEBU NEB SCH ×4 (07:08→19:11)
[2023-02-03 07:22] VITALS: TEMP 97.9
[2023-02-03] MEDS: PROTEIN SUPPLEMENT (PROSTAT) 30 ML LIQUID GT SCH (08:16)
[2023-02-03] MEDS: PHENYTOIN 100 MG/4 ML UDC GT SCH ×2 (09:12→21:38)
[2023-02-03] MEDS: CHOLECALCIFEROL 400 UNITS TABLET GT SCH ×2 (09:15→23:43)
[2023-02-03] MEDS: NEOMY/BACITRAC/POLYMI OINT 28.35 GM TUBE TOP SCH ×2 (09:15→21:00)
[2023-02-03] MEDS: COD LIVER OIL/ZINC OXIDE OINT 113 GM TUBE TP SCH ×2 (09:15→21:00)
[2023-02-03] MEDS: PHENOBARBITAL 64.8 MG TABLET GT SCH ×2 (09:15→21:38)
[2023-02-03] MEDS: REMEDY ESSENTIAL ZINC PASTE 113 GM TP SCH ×2 (09:16→21:00)
[2023-02-03] MEDS: VITAMINS A AND D 5 GM UD PKT TP SCH ×3 (09:16)
[2023-02-03] MEDS: CULTURELLE CAPSULE GT SCH ×2 (09:17→21:00)
[2023-02-03 20:02] VITALS: TEMP 98
[2023-02-03] MEDS: MIRALAX 17 GM POWD.PACK GT SCH (23:43)
[2023-02-04] MEDS: ASCORBIC ACID 500 MG TABLET GT SCH (05:05)
[2023-02-04] MEDS: ARGININE/GLUTAMINE/CALCIUM BMB 1 EACH POWD.PACK GT SCH ×2 (05:05→18:31)
[2023-02-04] MEDS: BACLOFEN 10 MG TABLET GT SCH ×3 (05:05→22:36)
[2023-02-04] MEDS: OMEPRAZOLE 20 MG CAPSULE.DR GT SCH ×2 (05:05→20:31)
[2023-02-04] MEDS: JEVITY 1.2 1000 ML LIQUID GT PRN (05:05)
[2023-02-04 07:26] VITALS: TEMP 97.6
[2023-02-04] MEDS: IPRATROPIUM BROMIDE 0.5 MG/2.5 ML NEBU NEB SCH ×4 (07:56→19:11)
[2023-02-04] MEDS: ALBUTEROL SULFATE 2.5 MG/3 ML NEBU NEB SCH ×4 (07:56→19:11)
[2023-02-04] MEDS: HYDROGEN PEROXIDE 3% 118 ML BOTTLE TOP SCH ×2 (07:56→19:11)
[2023-02-04] MEDS: PROTEIN SUPPLEMENT (PROSTAT) 30 ML LIQUID GT SCH (08:00)
[2023-02-04] MEDS: PHENYTOIN 100 MG/4 ML UDC GT SCH ×2 (09:03→20:30)
[2023-02-04] MEDS: PHENOBARBITAL 64.8 MG TABLET GT SCH ×2 (09:04→20:31)
[2023-02-04] MEDS: CHOLECALCIFEROL 400 UNITS TABLET GT SCH ×2 (09:04→20:31)
[2023-02-04] MEDS: VITAMINS A AND D 5 GM UD PKT TP SCH ×3 (09:05)
[2023-02-04] MEDS: REMEDY ESSENTIAL ZINC PASTE 113 GM TP SCH ×2 (09:05→20:31)
[2023-02-04] MEDS: NEOMY/BACITRAC/POLYMI OINT 28.35 GM TUBE TOP SCH ×2 (09:05→20:31)
[2023-02-04] MEDS: COD LIVER OIL/ZINC OXIDE OINT 113 GM TUBE TP SCH ×2 (09:05→20:31)
[2023-02-04] MEDS: CULTURELLE CAPSULE GT SCH ×2 (09:07→20:30)
[2023-02-04] MEDS: BETAMET DP 0.05% AUGM CR 15 GM CREAM.GM. TP PRN (13:19)
[2023-02-04 20:16] VITALS: TEMP 98.6
[2023-02-04] MEDS: MIRALAX 17 GM POWD.PACK GT SCH (20:31)
[2023-02-05] MEDS: BACLOFEN 10 MG TABLET GT SCH ×3 (05:29→22:48)
[2023-02-05] MEDS: ASCORBIC ACID 500 MG TABLET GT SCH (05:29)
[2023-02-05] MEDS: ARGININE/GLUTAMINE/CALCIUM BMB 1 EACH POWD.PACK GT SCH ×2 (05:29→17:37)
[2023-02-05] MEDS: JEVITY 1.2 1000 ML LIQUID GT PRN (05:29)
[2023-02-05] MEDS: OMEPRAZOLE 20 MG CAPSULE.DR GT SCH ×2 (05:30→20:32)
[2023-02-05 07:20] VITALS: TEMP 97.6
[2023-02-05] MEDS: PROTEIN SUPPLEMENT (PROSTAT) 30 ML LIQUID GT SCH (08:00)
[2023-02-05] MEDS: ALBUTEROL SULFATE 2.5 MG/3 ML NEBU NEB SCH ×4 (08:15→19:12)
[2023-02-05] MEDS: IPRATROPIUM BROMIDE 0.5 MG/2.5 ML NEBU NEB SCH ×4 (08:15→19:12)
[2023-02-05] MEDS: HYDROGEN PEROXIDE 3% 118 ML BOTTLE TOP SCH ×2 (09:00→19:12)
[2023-02-05] MEDS: PHENYTOIN 100 MG/4 ML UDC GT SCH ×2 (09:12→20:32)
[2023-02-05] MEDS: PHENOBARBITAL 64.8 MG TABLET GT SCH ×2 (09:12→20:32)
[2023-02-05] MEDS: CULTURELLE CAPSULE GT SCH ×2 (09:12→20:31)
[2023-02-05] MEDS: COD LIVER OIL/ZINC OXIDE OINT 113 GM TUBE TP SCH ×2 (09:13→20:33)
[2023-02-05] MEDS: CHOLECALCIFEROL 400 UNITS TABLET GT SCH ×2 (09:13→20:33)
[2023-02-05] MEDS: NEOMY/BACITRAC/POLYMI OINT 28.35 GM TUBE TOP SCH ×2 (09:13→20:33)
[2023-02-05] MEDS: REMEDY ESSENTIAL ZINC PASTE 113 GM TP SCH ×2 (09:14→20:33)
[2023-02-05] MEDS: VITAMINS A AND D 5 GM UD PKT TP SCH ×3 (09:14)
[2023-02-05 20:00] VITALS: TEMP 96.8
[2023-02-05] MEDS: MIRALAX 17 GM POWD.PACK GT SCH (20:32)
[2023-02-06] MEDS: ARGININE/GLUTAMINE/CALCIUM BMB 1 EACH POWD.PACK GT SCH ×2 (05:06→17:11)
[2023-02-06] MEDS: BACLOFEN 10 MG TABLET GT SCH ×3 (05:06→22:00)
[2023-02-06] MEDS: ASCORBIC ACID 500 MG TABLET GT SCH (05:06)
[2023-02-06] MEDS: JEVITY 1.2 1000 ML LIQUID GT PRN (05:07)
[2023-02-06] MEDS: OMEPRAZOLE 20 MG CAPSULE.DR GT SCH ×2 (06:55→20:04)
[2023-02-06 07:24] VITALS: TEMP 97.6
[2023-02-06] MEDS: ALBUTEROL SULFATE 2.5 MG/3 ML NEBU NEB SCH ×4 (07:28→19:05)
[2023-02-06] MEDS: IPRATROPIUM BROMIDE 0.5 MG/2.5 ML NEBU NEB SCH ×4 (07:28→19:05)
[2023-02-06] MEDS: HYDROGEN PEROXIDE 3% 118 ML BOTTLE TOP SCH ×2 (07:28→19:05)
[2023-02-06] MEDS: PROTEIN SUPPLEMENT (PROSTAT) 30 ML LIQUID GT SCH (08:00)
[2023-02-06] MEDS: PHENYTOIN 100 MG/4 ML UDC GT SCH ×2 (09:09→20:04)
[2023-02-06] MEDS: CULTURELLE CAPSULE GT SCH ×2 (09:09→20:03)
[2023-02-06] MEDS: NEOMY/BACITRAC/POLYMI OINT 28.35 GM TUBE TOP SCH ×2 (09:11→20:04)
[2023-02-06] MEDS: VITAMINS A AND D 5 GM UD PKT TP SCH ×3 (09:11)
[2023-02-06] MEDS: CHOLECALCIFEROL 400 UNITS TABLET GT SCH ×2 (09:11→20:04)
[2023-02-06] MEDS: COD LIVER OIL/ZINC OXIDE OINT 113 GM TUBE TP SCH ×2 (09:11→20:04)
[2023-02-06] MEDS: PHENOBARBITAL 64.8 MG TABLET GT SCH ×2 (09:11→20:04)
[2023-02-06] MEDS: REMEDY ESSENTIAL ZINC PASTE 113 GM TP SCH ×2 (09:11→20:04)
[2023-02-06 19:35] VITALS: TEMP 97
[2023-02-06] MEDS: MIRALAX 17 GM POWD.PACK GT SCH (20:04)
[2023-02-07] MEDS: OMEPRAZOLE 20 MG CAPSULE.DR GT SCH ×2 (05:39→21:46)
[2023-02-07] MEDS: ARGININE/GLUTAMINE/CALCIUM BMB 1 EACH POWD.PACK GT SCH ×2 (05:39→18:01)
[2023-02-07] MEDS: BACLOFEN 10 MG TABLET GT SCH ×3 (05:39→21:48)
[2023-02-07] MEDS: ASCORBIC ACID 500 MG TABLET GT SCH (05:39)
[2023-02-07 07:25] VITALS: TEMP 97.7
[2023-02-07] MEDS: PROTEIN SUPPLEMENT (PROSTAT) 30 ML LIQUID GT SCH (08:00)
[2023-02-07] MEDS: HYDROGEN PEROXIDE 3% 118 ML BOTTLE TOP SCH ×2 (08:34→19:18)
[2023-02-07] MEDS: IPRATROPIUM BROMIDE 0.5 MG/2.5 ML NEBU NEB SCH ×4 (08:34→19:18)
[2023-02-07] MEDS: ALBUTEROL SULFATE 2.5 MG/3 ML NEBU NEB SCH ×4 (08:34→19:18)
[2023-02-07] MEDS: PHENYTOIN 100 MG/4 ML UDC GT SCH ×2 (09:41→21:46)
[2023-02-07] MEDS: CULTURELLE CAPSULE GT SCH ×2 (09:41→21:50)
[2023-02-07] MEDS: PHENOBARBITAL 64.8 MG TABLET GT SCH ×2 (09:42→21:51)
[2023-02-07] MEDS: CHOLECALCIFEROL 400 UNITS TABLET GT SCH ×2 (09:42→21:48)
[2023-02-07] MEDS: REMEDY ESSENTIAL ZINC PASTE 113 GM TP SCH ×2 (09:44→21:48)
[2023-02-07] MEDS: VITAMINS A AND D 5 GM UD PKT TP SCH ×3 (09:44→09:51)
[2023-02-07] MEDS: NEOMY/BACITRAC/POLYMI OINT 28.35 GM TUBE TOP SCH ×2 (09:44→21:48)
[2023-02-07] MEDS: COD LIVER OIL/ZINC OXIDE OINT 113 GM TUBE TP SCH ×2 (09:44→21:48)
[2023-02-07 19:48] VITALS: TEMP 97.3
[2023-02-07] MEDS: MIRALAX 17 GM POWD.PACK GT SCH (21:46)
[2023-02-08] MEDS: JEVITY 1.2 1000 ML LIQUID GT PRN (03:00)
[2023-02-08] MEDS: ASCORBIC ACID 500 MG TABLET GT SCH (05:32)
[2023-02-08] MEDS: ARGININE/GLUTAMINE/CALCIUM BMB 1 EACH POWD.PACK GT SCH ×2 (05:32→18:44)
[2023-02-08] MEDS: OMEPRAZOLE 20 MG CAPSULE.DR GT SCH ×2 (05:32→20:58)
[2023-02-08] MEDS: BACLOFEN 10 MG TABLET GT SCH ×3 (05:32→21:14)
[2023-02-08] MEDS: IPRATROPIUM BROMIDE 0.5 MG/2.5 ML NEBU NEB SCH ×4 (07:21→19:08)
[2023-02-08] MEDS: ALBUTEROL SULFATE 2.5 MG/3 ML NEBU NEB SCH ×4 (07:21→19:08)
[2023-02-08] MEDS: HYDROGEN PEROXIDE 3% 118 ML BOTTLE TOP SCH ×2 (07:22→19:08)
[2023-02-08 08:00] VITALS: TEMP 97.3
[2023-02-08] MEDS: PROTEIN SUPPLEMENT (PROSTAT) 30 ML LIQUID GT SCH (08:30)
[2023-02-08] MEDS: CULTURELLE CAPSULE GT SCH ×2 (09:16→20:51)
[2023-02-08] MEDS: PHENYTOIN 100 MG/4 ML UDC GT SCH ×2 (09:18→20:56)
[2023-02-08] MEDS: PHENOBARBITAL 64.8 MG TABLET GT SCH ×2 (09:22→20:57)
[2023-02-08] MEDS: CHOLECALCIFEROL 400 UNITS TABLET GT SCH ×2 (09:23→20:59)
[2023-02-08] MEDS: REMEDY ESSENTIAL ZINC PASTE 113 GM TP SCH ×2 (09:25→21:14)
[2023-02-08] MEDS: NEOMY/BACITRAC/POLYMI OINT 28.35 GM TUBE TOP SCH ×2 (09:25→21:14)
[2023-02-08] MEDS: COD LIVER OIL/ZINC OXIDE OINT 113 GM TUBE TP SCH ×2 (09:25→21:14)
[2023-02-08] MEDS: VITAMINS A AND D 5 GM UD PKT TP SCH ×3 (09:26)
[2023-02-08 20:00] VITALS: TEMP 97.6
[2023-02-08] MEDS: MIRALAX 17 GM POWD.PACK GT SCH (20:58)
[2023-02-09] MEDS: JEVITY 1.2 1000 ML LIQUID GT PRN ×2 (05:05→05:08)
[2023-02-09] MEDS: ASCORBIC ACID 500 MG TABLET GT SCH (05:08)
[2023-02-09] MEDS: ARGININE/GLUTAMINE/CALCIUM BMB 1 EACH POWD.PACK GT SCH ×2 (05:08→17:44)
[2023-02-09] MEDS: BACLOFEN 10 MG TABLET GT SCH ×3 (05:08→21:04)
[2023-02-09] MEDS: OMEPRAZOLE 20 MG CAPSULE.DR GT SCH ×2 (05:18→21:03)
[2023-02-09] MEDS: ALBUTEROL SULFATE 2.5 MG/3 ML NEBU NEB SCH ×4 (07:13→19:17)
[2023-02-09] MEDS: IPRATROPIUM BROMIDE 0.5 MG/2.5 ML NEBU NEB SCH ×4 (07:13→19:17)
[2023-02-09 07:26] VITALS: TEMP 97.7
[2023-02-09] MEDS: PROTEIN SUPPLEMENT (PROSTAT) 30 ML LIQUID GT SCH (08:00)
[2023-02-09] MEDS: HYDROGEN PEROXIDE 3% 118 ML BOTTLE TOP SCH ×2 (09:00→19:17)
[2023-02-09] MEDS: PHENYTOIN 100 MG/4 ML UDC GT SCH ×2 (09:12→21:03)
[2023-02-09] MEDS: CULTURELLE CAPSULE GT SCH ×2 (09:12→21:02)
[2023-02-09] MEDS: CHOLECALCIFEROL 400 UNITS TABLET GT SCH ×2 (09:13→21:03)
[2023-02-09] MEDS: PHENOBARBITAL 64.8 MG TABLET GT SCH ×2 (09:13→21:03)
[2023-02-09] MEDS: COD LIVER OIL/ZINC OXIDE OINT 113 GM TUBE TP SCH ×2 (09:14→21:03)
[2023-02-09] MEDS: REMEDY ESSENTIAL ZINC PASTE 113 GM TP SCH ×2 (09:14→21:04)
[2023-02-09] MEDS: VITAMINS A AND D 5 GM UD PKT TP SCH ×3 (09:14)
[2023-02-09] MEDS: NEOMY/BACITRAC/POLYMI OINT 28.35 GM TUBE TOP SCH ×2 (09:14→21:03)
[2023-02-09 19:54] VITALS: TEMP 97.4
[2023-02-09] MEDS: MIRALAX 17 GM POWD.PACK GT SCH (21:03)
[2023-02-10] MEDS: ASCORBIC ACID 500 MG TABLET GT SCH (05:07)
[2023-02-10] MEDS: BACLOFEN 10 MG TABLET GT SCH ×3 (05:07→22:42)
[2023-02-10] MEDS: ARGININE/GLUTAMINE/CALCIUM BMB 1 EACH POWD.PACK GT SCH ×2 (05:07→17:24)
[2023-02-10] MEDS: JEVITY 1.2 1000 ML LIQUID GT PRN (06:45)
[2023-02-10] MEDS: PROTEIN SUPPLEMENT (PROSTAT) 30 ML LIQUID GT SCH (06:45)
[2023-02-10] MEDS: OMEPRAZOLE 20 MG CAPSULE.DR GT SCH ×2 (07:05→20:51)
[2023-02-10] MEDS: IPRATROPIUM BROMIDE 0.5 MG/2.5 ML NEBU NEB SCH ×4 (07:20→19:05)
[2023-02-10] MEDS: ALBUTEROL SULFATE 2.5 MG/3 ML NEBU NEB SCH ×4 (07:20→19:05)
[2023-02-10 07:21] VITALS: TEMP 97.7
[2023-02-10] MEDS: PHENOBARBITAL 64.8 MG TABLET GT SCH ×2 (09:25→20:51)
[2023-02-10] MEDS: CULTURELLE CAPSULE GT SCH ×2 (09:25→20:51)
[2023-02-10] MEDS: PHENYTOIN 100 MG/4 ML UDC GT SCH ×2 (09:25→20:51)
[2023-02-10] MEDS: COD LIVER OIL/ZINC OXIDE OINT 113 GM TUBE TP SCH ×2 (09:26→20:51)
[2023-02-10] MEDS: NEOMY/BACITRAC/POLYMI OINT 28.35 GM TUBE TOP SCH ×2 (09:26→20:51)
[2023-02-10] MEDS: CHOLECALCIFEROL 400 UNITS TABLET GT SCH ×2 (09:26→20:51)
[2023-02-10] MEDS: VITAMINS A AND D 5 GM UD PKT TP SCH ×3 (09:26)
[2023-02-10] MEDS: REMEDY ESSENTIAL ZINC PASTE 113 GM TP SCH ×2 (09:26→20:51)
[2023-02-10] MEDS: HYDROGEN PEROXIDE 3% 118 ML BOTTLE TOP SCH ×2 (09:30→19:05)
[2023-02-10 19:41] VITALS: TEMP 97.5
[2023-02-10] MEDS: MIRALAX 17 GM POWD.PACK GT SCH (20:51)
[2023-02-11] MEDS: ASCORBIC ACID 500 MG TABLET GT SCH (05:52)
[2023-02-11] MEDS: OMEPRAZOLE 20 MG CAPSULE.DR GT SCH ×2 (05:52→20:54)
[2023-02-11] MEDS: ARGININE/GLUTAMINE/CALCIUM BMB 1 EACH POWD.PACK GT SCH ×2 (05:52→17:20)
[2023-02-11] MEDS: BACLOFEN 10 MG TABLET GT SCH ×3 (05:52→22:18)
[2023-02-11] MEDS: JEVITY 1.2 1000 ML LIQUID GT PRN (06:57)
[2023-02-11 07:21] VITALS: TEMP 97.5
[2023-02-11] MEDS: IPRATROPIUM BROMIDE 0.5 MG/2.5 ML NEBU NEB SCH ×4 (07:35→19:02)
[2023-02-11] MEDS: ALBUTEROL SULFATE 2.5 MG/3 ML NEBU NEB SCH ×4 (07:35→19:02)
[2023-02-11] MEDS: PROTEIN SUPPLEMENT (PROSTAT) 30 ML LIQUID GT SCH (08:00)
[2023-02-11] MEDS: PHENYTOIN 100 MG/4 ML UDC GT SCH ×2 (09:24→20:54)
[2023-02-11] MEDS: PHENOBARBITAL 64.8 MG TABLET GT SCH ×2 (09:25→20:54)
[2023-02-11] MEDS: CHOLECALCIFEROL 400 UNITS TABLET GT SCH ×2 (09:25→20:54)
[2023-02-11] MEDS: COD LIVER OIL/ZINC OXIDE OINT 113 GM TUBE TP SCH ×2 (09:26→20:55)
[2023-02-11] MEDS: VITAMINS A AND D 5 GM UD PKT TP SCH ×3 (09:26)
[2023-02-11] MEDS: REMEDY ESSENTIAL ZINC PASTE 113 GM TP SCH ×2 (09:26→20:55)
[2023-02-11] MEDS: NEOMY/BACITRAC/POLYMI OINT 28.35 GM TUBE TOP SCH ×2 (09:26→20:55)
[2023-02-11] MEDS: CULTURELLE CAPSULE GT SCH ×2 (09:28→20:54)
[2023-02-11] MEDS: HYDROGEN PEROXIDE 3% 118 ML BOTTLE TOP SCH ×2 (09:33→19:02)
[2023-02-11] MEDS: BETAMET DP 0.05% AUGM CR 15 GM CREAM.GM. TP PRN (13:23)
[2023-02-11] MEDS: CLOTRIMAZOLE 1% CREAM 30 GM TUBE TP PRN (13:23)
[2023-02-11 19:40] VITALS: TEMP 97.4
[2023-02-11] MEDS: MIRALAX 17 GM POWD.PACK GT SCH (20:54)
[2023-02-12] MEDS: ASCORBIC ACID 500 MG TABLET GT SCH (05:20)
[2023-02-12] MEDS: ARGININE/GLUTAMINE/CALCIUM BMB 1 EACH POWD.PACK GT SCH ×2 (05:20→17:54)
[2023-02-12] MEDS: BACLOFEN 10 MG TABLET GT SCH ×3 (05:20→21:29)
[2023-02-12] MEDS: OMEPRAZOLE 20 MG CAPSULE.DR GT SCH ×2 (05:48→20:12)
[2023-02-12] MEDS: HYDROGEN PEROXIDE 3% 118 ML BOTTLE TOP SCH ×2 (07:04→19:04)
[2023-02-12] MEDS: ALBUTEROL SULFATE 2.5 MG/3 ML NEBU NEB SCH ×4 (07:04→19:04)
[2023-02-12] MEDS: IPRATROPIUM BROMIDE 0.5 MG/2.5 ML NEBU NEB SCH ×4 (07:04→19:04)
[2023-02-12 08:00] VITALS: TEMP 97.6
[2023-02-12] MEDS: PROTEIN SUPPLEMENT (PROSTAT) 30 ML LIQUID GT SCH (08:57)
[2023-02-12] MEDS: CULTURELLE CAPSULE GT SCH ×2 (09:01→20:07)
[2023-02-12] MEDS: PHENYTOIN 100 MG/4 ML UDC GT SCH ×2 (09:01→20:07)
[2023-02-12] MEDS: PHENOBARBITAL 64.8 MG TABLET GT SCH ×2 (09:02→20:07)
[2023-02-12] MEDS: CHOLECALCIFEROL 400 UNITS TABLET GT SCH ×2 (09:03→20:12)
[2023-02-12] MEDS: REMEDY ESSENTIAL ZINC PASTE 113 GM TP SCH ×2 (09:03→20:12)
[2023-02-12] MEDS: VITAMINS A AND D 5 GM UD PKT TP SCH ×3 (09:03→09:04)
[2023-02-12] MEDS: COD LIVER OIL/ZINC OXIDE OINT 113 GM TUBE TP SCH ×2 (09:03→20:12)
[2023-02-12] MEDS: NEOMY/BACITRAC/POLYMI OINT 28.35 GM TUBE TOP SCH ×2 (09:03→20:12)
[2023-02-12 19:45] VITALS: TEMP 97.8
[2023-02-12] MEDS: MIRALAX 17 GM POWD.PACK GT SCH (20:07)
[2023-02-12] MEDS: JEVITY 1.2 1000 ML LIQUID GT PRN (21:30)
[2023-02-13] MEDS: BACLOFEN 10 MG TABLET GT SCH ×3 (05:09→22:31)
[2023-02-13] MEDS: ASCORBIC ACID 500 MG TABLET GT SCH (05:09)
[2023-02-13] MEDS: ARGININE/GLUTAMINE/CALCIUM BMB 1 EACH POWD.PACK GT SCH ×2 (05:09→17:35)
[2023-02-13] MEDS: JEVITY 1.2 1000 ML LIQUID GT PRN (05:10)
[2023-02-13] MEDS: OMEPRAZOLE 20 MG CAPSULE.DR GT SCH ×2 (05:43→20:11)
[2023-02-13] MEDS: ALBUTEROL SULFATE 2.5 MG/3 ML NEBU NEB SCH ×4 (07:22→19:30)
[2023-02-13] MEDS: IPRATROPIUM BROMIDE 0.5 MG/2.5 ML NEBU NEB SCH ×4 (07:22→19:30)
[2023-02-13 08:00] VITALS: TEMP 97.5
[2023-02-13] MEDS: PROTEIN SUPPLEMENT (PROSTAT) 30 ML LIQUID GT SCH (08:00)
[2023-02-13] MEDS: HYDROGEN PEROXIDE 3% 118 ML BOTTLE TOP SCH ×2 (08:09→21:33)
[2023-02-13] MEDS: CULTURELLE CAPSULE GT SCH ×2 (09:00→20:11)
[2023-02-13] MEDS: PHENOBARBITAL 64.8 MG TABLET GT SCH ×2 (09:00→20:11)
[2023-02-13] MEDS: PHENYTOIN 100 MG/4 ML UDC GT SCH ×2 (09:00→20:11)
[2023-02-13] MEDS: VITAMINS A AND D 5 GM UD PKT TP SCH ×3 (09:00)
[2023-02-13] MEDS: REMEDY ESSENTIAL ZINC PASTE 113 GM TP SCH ×2 (09:00→20:12)
[2023-02-13] MEDS: CHOLECALCIFEROL 400 UNITS TABLET GT SCH ×2 (09:00→20:11)
[2023-02-13] MEDS: COD LIVER OIL/ZINC OXIDE OINT 113 GM TUBE TP SCH ×2 (09:00→20:12)
[2023-02-13] MEDS: NEOMY/BACITRAC/POLYMI OINT 28.35 GM TUBE TOP SCH ×2 (09:00→20:12)
[2023-02-13 19:40] VITALS: TEMP 97.4
[2023-02-13] MEDS: MIRALAX 17 GM POWD.PACK GT SCH (20:11)
[2023-02-14] MEDS: ARGININE/GLUTAMINE/CALCIUM BMB 1 EACH POWD.PACK GT SCH ×2 (05:13→17:55)
[2023-02-14] MEDS: BACLOFEN 10 MG TABLET GT SCH ×3 (05:13→22:19)
[2023-02-14] MEDS: ASCORBIC ACID 500 MG TABLET GT SCH (05:14)
[2023-02-14] MEDS: OMEPRAZOLE 20 MG CAPSULE.DR GT SCH ×2 (06:15→20:35)
[2023-02-14] MEDS: IPRATROPIUM BROMIDE 0.5 MG/2.5 ML NEBU NEB SCH ×4 (07:33→19:03)
[2023-02-14] MEDS: ALBUTEROL SULFATE 2.5 MG/3 ML NEBU NEB SCH ×4 (07:33→19:03)
[2023-02-14] MEDS: HYDROGEN PEROXIDE 3% 118 ML BOTTLE TOP SCH ×2 (07:33→19:03)
[2023-02-14 08:00] VITALS: TEMP 97.5
[2023-02-14] MEDS: PROTEIN SUPPLEMENT (PROSTAT) 30 ML LIQUID GT SCH (08:45)
[2023-02-14] MEDS: PHENYTOIN 100 MG/4 ML UDC GT SCH ×2 (08:45→20:34)
[2023-02-14] MEDS: CULTURELLE CAPSULE GT SCH ×2 (08:45→20:30)
[2023-02-14] MEDS: PHENOBARBITAL 64.8 MG TABLET GT SCH ×2 (08:46→20:34)
[2023-02-14] MEDS: CHOLECALCIFEROL 400 UNITS TABLET GT SCH ×2 (08:46→20:34)
[2023-02-14] MEDS: NEOMY/BACITRAC/POLYMI OINT 28.35 GM TUBE TOP SCH ×2 (08:47→20:35)
[2023-02-14] MEDS: REMEDY ESSENTIAL ZINC PASTE 113 GM TP SCH ×2 (08:47→20:35)
[2023-02-14] MEDS: COD LIVER OIL/ZINC OXIDE OINT 113 GM TUBE TP SCH ×2 (08:47→20:35)
[2023-02-14] MEDS: VITAMINS A AND D 5 GM UD PKT TP SCH ×3 (08:47)
[2023-02-14] MEDS: JEVITY 1.2 1000 ML LIQUID GT PRN (14:05)
[2023-02-14 20:00] VITALS: TEMP 97.2
[2023-02-14] MEDS: MIRALAX 17 GM POWD.PACK GT SCH (20:34)
[2023-02-15] MEDS: ARGININE/GLUTAMINE/CALCIUM BMB 1 EACH POWD.PACK GT SCH ×2 (05:10→18:13)
[2023-02-15] MEDS: ASCORBIC ACID 500 MG TABLET GT SCH (05:10)
[2023-02-15] MEDS: BACLOFEN 10 MG TABLET GT SCH ×3 (05:10→22:00)
[2023-02-15] MEDS: OMEPRAZOLE 20 MG CAPSULE.DR GT SCH ×2 (06:25→20:30)
[2023-02-15 08:05] VITALS: TEMP 97.9
[2023-02-15] MEDS: IPRATROPIUM BROMIDE 0.5 MG/2.5 ML NEBU NEB SCH ×4 (08:26→19:01)
[2023-02-15] MEDS: HYDROGEN PEROXIDE 3% 118 ML BOTTLE TOP SCH ×2 (08:26→19:01)
[2023-02-15] MEDS: ALBUTEROL SULFATE 2.5 MG/3 ML NEBU NEB SCH ×4 (08:26→19:01)
[2023-02-15] MEDS: PROTEIN SUPPLEMENT (PROSTAT) 30 ML LIQUID GT SCH (09:00)
[2023-02-15] MEDS: CULTURELLE CAPSULE GT SCH ×2 (09:16→20:29)
[2023-02-15] MEDS: PHENYTOIN 100 MG/4 ML UDC GT SCH ×2 (09:16→20:29)
[2023-02-15] MEDS: CHOLECALCIFEROL 400 UNITS TABLET GT SCH ×2 (09:17→20:30)
[2023-02-15] MEDS: COD LIVER OIL/ZINC OXIDE OINT 113 GM TUBE TP SCH ×2 (09:17→20:30)
[2023-02-15] MEDS: NEOMY/BACITRAC/POLYMI OINT 28.35 GM TUBE TOP SCH ×2 (09:17→20:30)
[2023-02-15] MEDS: PHENOBARBITAL 64.8 MG TABLET GT SCH ×2 (09:17→20:29)
[2023-02-15] MEDS: VITAMINS A AND D 5 GM UD PKT TP SCH ×3 (09:18)
[2023-02-15] MEDS: REMEDY ESSENTIAL ZINC PASTE 113 GM TP SCH ×2 (09:18→20:30)
[2023-02-15] MEDS: ACETAMINOPHEN 650 MG/20 ML UDC- SA PATIENTS-PAIN ONLY GT PRN (14:00)
[2023-02-15] MEDS: JEVITY 1.2 1000 ML LIQUID GT PRN (18:13)
[2023-02-15 20:00] VITALS: TEMP 97.9
[2023-02-15] MEDS: MIRALAX 17 GM POWD.PACK GT SCH (20:29)
[2023-02-16] MEDS: OMEPRAZOLE 20 MG CAPSULE.DR GT SCH ×2 (06:07→20:15)
[2023-02-16] MEDS: ASCORBIC ACID 500 MG TABLET GT SCH (06:07)
[2023-02-16] MEDS: BACLOFEN 10 MG TABLET GT SCH ×3 (06:07→22:00)
[2023-02-16] MEDS: ARGININE/GLUTAMINE/CALCIUM BMB 1 EACH POWD.PACK GT SCH ×2 (06:07→17:34)
[2023-02-16] MEDS: IPRATROPIUM BROMIDE 0.5 MG/2.5 ML NEBU NEB SCH ×4 (07:03→19:02)
[2023-02-16] MEDS: HYDROGEN PEROXIDE 3% 118 ML BOTTLE TOP SCH ×2 (07:03→19:02)
[2023-02-16] MEDS: ALBUTEROL SULFATE 2.5 MG/3 ML NEBU NEB SCH ×4 (07:03→19:02)
[2023-02-16 07:05] VITALS: O2SAT 98
[2023-02-16 07:48] VITALS: TEMP 98
[2023-02-16] MEDS: PROTEIN SUPPLEMENT (PROSTAT) 30 ML LIQUID GT SCH (08:00)
[2023-02-16] MEDS: PHENYTOIN 100 MG/4 ML UDC GT SCH ×2 (09:24→20:15)
[2023-02-16] MEDS: CULTURELLE CAPSULE GT SCH ×2 (09:24→20:14)
[2023-02-16] MEDS: PHENOBARBITAL 64.8 MG TABLET GT SCH ×2 (09:25→20:15)
[2023-02-16] MEDS: NEOMY/BACITRAC/POLYMI OINT 28.35 GM TUBE TOP SCH ×2 (09:26→20:15)
[2023-02-16] MEDS: REMEDY ESSENTIAL ZINC PASTE 113 GM TP SCH ×2 (09:26→20:15)
[2023-02-16] MEDS: CHOLECALCIFEROL 400 UNITS TABLET GT SCH ×2 (09:26→20:15)
[2023-02-16] MEDS: COD LIVER OIL/ZINC OXIDE OINT 113 GM TUBE TP SCH ×2 (09:26→20:15)
[2023-02-16] MEDS: VITAMINS A AND D 5 GM UD PKT TP SCH ×3 (09:26)
[2023-02-16] MEDS: ACETAMINOPHEN 650 MG/20 ML UDC- SA PATIENTS-PAIN ONLY GT PRN (14:00)
[2023-02-16] MEDS: JEVITY 1.2 1000 ML LIQUID GT PRN (14:29)
[2023-02-16 19:52] VITALS: TEMP 97.4
[2023-02-16] MEDS: MIRALAX 17 GM POWD.PACK GT SCH (20:15)
[2023-02-17] MEDS: ARGININE/GLUTAMINE/CALCIUM BMB 1 EACH POWD.PACK GT SCH ×2 (05:08→18:35)
[2023-02-17] MEDS: BACLOFEN 10 MG TABLET GT SCH ×3 (05:08→21:03)
[2023-02-17] MEDS: ASCORBIC ACID 500 MG TABLET GT SCH (05:08)
[2023-02-17] MEDS: OMEPRAZOLE 20 MG CAPSULE.DR GT SCH ×2 (05:45→21:03)
[2023-02-17] MEDS: ALBUTEROL SULFATE 2.5 MG/3 ML NEBU NEB SCH ×4 (07:13→19:08)
[2023-02-17] MEDS: IPRATROPIUM BROMIDE 0.5 MG/2.5 ML NEBU NEB SCH ×4 (07:13→19:08)
[2023-02-17] MEDS: HYDROGEN PEROXIDE 3% 118 ML BOTTLE TOP SCH ×2 (07:13→19:08)
[2023-02-17 08:00] VITALS: TEMP 98.2
[2023-02-17] MEDS: PROTEIN SUPPLEMENT (PROSTAT) 30 ML LIQUID GT SCH (08:00)
[2023-02-17] MEDS: REMEDY ESSENTIAL ZINC PASTE 113 GM TP SCH ×2 (09:00→21:03)
[2023-02-17] MEDS: VITAMINS A AND D 5 GM UD PKT TP SCH ×3 (09:00)
[2023-02-17] MEDS: COD LIVER OIL/ZINC OXIDE OINT 113 GM TUBE TP SCH ×2 (09:00→21:03)
[2023-02-17] MEDS: CULTURELLE CAPSULE GT SCH ×2 (09:39→21:02)
[2023-02-17] MEDS: PHENYTOIN 100 MG/4 ML UDC GT SCH ×2 (09:39→21:02)
[2023-02-17] MEDS: PHENOBARBITAL 64.8 MG TABLET GT SCH ×2 (09:39→21:03)
[2023-02-17] MEDS: NEOMY/BACITRAC/POLYMI OINT 28.35 GM TUBE TOP SCH ×2 (09:41→21:03)
[2023-02-17] MEDS: CHOLECALCIFEROL 400 UNITS TABLET GT SCH ×2 (09:41→21:03)
[2023-02-17] MEDS: ACETAMINOPHEN 650 MG/20 ML UDC- SA PATIENTS-PAIN ONLY GT PRN ×2 (16:18→21:06)
[2023-02-17 20:00] VITALS: TEMP 97.6
[2023-02-17] MEDS: MIRALAX 17 GM POWD.PACK GT SCH (21:03)
[2023-02-18] MEDS: ARGININE/GLUTAMINE/CALCIUM BMB 1 EACH POWD.PACK GT SCH ×2 (05:22→17:38)
[2023-02-18] MEDS: BACLOFEN 10 MG TABLET GT SCH ×3 (05:22→22:41)
[2023-02-18] MEDS: ASCORBIC ACID 500 MG TABLET GT SCH (05:22)
[2023-02-18] MEDS: OMEPRAZOLE 20 MG CAPSULE.DR GT SCH ×2 (06:30→20:24)
[2023-02-18] MEDS: ALBUTEROL SULFATE 2.5 MG/3 ML NEBU NEB SCH ×4 (07:16→19:03)
[2023-02-18] MEDS: IPRATROPIUM BROMIDE 0.5 MG/2.5 ML NEBU NEB SCH ×4 (07:16→19:03)
[2023-02-18] MEDS: HYDROGEN PEROXIDE 3% 118 ML BOTTLE TOP SCH ×2 (07:16→19:03)
[2023-02-18 07:28] VITALS: TEMP 97.6
[2023-02-18] MEDS: PROTEIN SUPPLEMENT (PROSTAT) 30 ML LIQUID GT SCH (08:00)
[2023-02-18] MEDS: REMEDY ESSENTIAL ZINC PASTE 113 GM TP SCH ×2 (09:00→20:25)
[2023-02-18] MEDS: VITAMINS A AND D 5 GM UD PKT TP SCH ×3 (09:00)
[2023-02-18] MEDS: CULTURELLE CAPSULE GT SCH ×2 (09:09→20:24)
[2023-02-18] MEDS: PHENYTOIN 100 MG/4 ML UDC GT SCH ×2 (09:09→20:24)
[2023-02-18] MEDS: PHENOBARBITAL 64.8 MG TABLET GT SCH ×2 (09:11→20:24)
[2023-02-18] MEDS: CHOLECALCIFEROL 400 UNITS TABLET GT SCH ×2 (09:11→20:24)
[2023-02-18] MEDS: NEOMY/BACITRAC/POLYMI OINT 28.35 GM TUBE TOP SCH ×2 (09:12→20:24)
[2023-02-18] MEDS: COD LIVER OIL/ZINC OXIDE OINT 113 GM TUBE TP SCH ×2 (09:12→20:25)
[2023-02-18] MEDS: ACETAMINOPHEN 650 MG/20 ML UDC- SA PATIENTS-PAIN ONLY GT PRN ×2 (13:11→20:36)
[2023-02-18] MEDS: JEVITY 1.2 1000 ML LIQUID GT PRN (18:16)
[2023-02-18 20:00] VITALS: TEMP 97.8
[2023-02-18] MEDS: MIRALAX 17 GM POWD.PACK GT SCH (20:24)
[2023-02-19] MEDS: BACLOFEN 10 MG TABLET GT SCH ×3 (05:26→22:12)
[2023-02-19] MEDS: ASCORBIC ACID 500 MG TABLET GT SCH (05:26)
[2023-02-19] MEDS: ARGININE/GLUTAMINE/CALCIUM BMB 1 EACH POWD.PACK GT SCH ×2 (05:26→17:06)
[2023-02-19] MEDS: OMEPRAZOLE 20 MG CAPSULE.DR GT SCH ×2 (06:39→20:24)
[2023-02-19] MEDS: ALBUTEROL SULFATE 2.5 MG/3 ML NEBU NEB SCH ×4 (07:06→19:06)
[2023-02-19] MEDS: IPRATROPIUM BROMIDE 0.5 MG/2.5 ML NEBU NEB SCH ×4 (07:06→19:06)
[2023-02-19 07:24] VITALS: TEMP 97.6
[2023-02-19] MEDS: PROTEIN SUPPLEMENT (PROSTAT) 30 ML LIQUID GT SCH (08:36)
[2023-02-19] MEDS: COD LIVER OIL/ZINC OXIDE OINT 113 GM TUBE TP SCH ×2 (08:37→20:25)
[2023-02-19] MEDS: PHENOBARBITAL 64.8 MG TABLET GT SCH ×2 (08:37→20:23)
[2023-02-19] MEDS: PHENYTOIN 100 MG/4 ML UDC GT SCH ×2 (08:37→20:22)
[2023-02-19] MEDS: CHOLECALCIFEROL 400 UNITS TABLET GT SCH ×2 (08:37→20:24)
[2023-02-19] MEDS: VITAMINS A AND D 5 GM UD PKT TP SCH ×3 (08:38)
[2023-02-19] MEDS: REMEDY ESSENTIAL ZINC PASTE 113 GM TP SCH ×2 (08:38→20:25)
[2023-02-19] MEDS: CULTURELLE CAPSULE GT SCH ×2 (08:43→20:27)
[2023-02-19] MEDS: HYDROGEN PEROXIDE 3% 118 ML BOTTLE TOP SCH ×2 (09:00→19:06)
[2023-02-19] MEDS: JEVITY 1.2 1000 ML LIQUID GT PRN (14:45)
[2023-02-19 19:58] VITALS: TEMP 98.4
[2023-02-19] MEDS: MIRALAX 17 GM POWD.PACK GT SCH (20:23)
[2023-02-20] MEDS: BACLOFEN 10 MG TABLET GT SCH ×3 (05:34→22:00)
[2023-02-20] MEDS: ARGININE/GLUTAMINE/CALCIUM BMB 1 EACH POWD.PACK GT SCH ×2 (05:34→17:59)
[2023-02-20] MEDS: OMEPRAZOLE 20 MG CAPSULE.DR GT SCH ×2 (05:34→20:07)
[2023-02-20] MEDS: ASCORBIC ACID 500 MG TABLET GT SCH (05:34)
[2023-02-20 07:26] VITALS: TEMP 97.7
[2023-02-20] MEDS: PROTEIN SUPPLEMENT (PROSTAT) 30 ML LIQUID GT SCH (08:00)
[2023-02-20] MEDS: IPRATROPIUM BROMIDE 0.5 MG/2.5 ML NEBU NEB SCH ×4 (08:05→19:07)
[2023-02-20] MEDS: ALBUTEROL SULFATE 2.5 MG/3 ML NEBU NEB SCH ×4 (08:05→19:07)
[2023-02-20] MEDS: HYDROGEN PEROXIDE 3% 118 ML BOTTLE TOP SCH ×2 (08:05→19:07)
[2023-02-20] MEDS: CULTURELLE CAPSULE GT SCH ×2 (09:06→20:05)
[2023-02-20] MEDS: PHENYTOIN 100 MG/4 ML UDC GT SCH ×2 (09:06→20:06)
[2023-02-20] MEDS: CHOLECALCIFEROL 400 UNITS TABLET GT SCH ×2 (09:07→20:09)
[2023-02-20] MEDS: NEOMY/BACITRAC/POLYMI OINT 28.35 GM TUBE TOP SCH ×2 (09:07→20:09)
[2023-02-20] MEDS: PHENOBARBITAL 64.8 MG TABLET GT SCH ×2 (09:07→20:06)
[2023-02-20] MEDS: COD LIVER OIL/ZINC OXIDE OINT 113 GM TUBE TP SCH ×2 (09:08→20:09)
[2023-02-20] MEDS: VITAMINS A AND D 5 GM UD PKT TP SCH ×3 (09:08)
[2023-02-20] MEDS: REMEDY ESSENTIAL ZINC PASTE 113 GM TP SCH ×2 (09:08→20:09)
[2023-02-20] MEDS: JEVITY 1.2 1000 ML LIQUID GT PRN (18:00)
[2023-02-20] MEDS: MIRALAX 17 GM POWD.PACK GT SCH (20:06)
[2023-02-20 20:59] VITALS: TEMP 98.1
[2023-02-21] MEDS: BACLOFEN 10 MG TABLET GT SCH ×3 (05:57→21:23)
[2023-02-21] MEDS: ASCORBIC ACID 500 MG TABLET GT SCH (05:57)
[2023-02-21] MEDS: OMEPRAZOLE 20 MG CAPSULE.DR GT SCH ×2 (05:57→21:22)
[2023-02-21] MEDS: ARGININE/GLUTAMINE/CALCIUM BMB 1 EACH POWD.PACK GT SCH ×2 (05:57→17:57)
[2023-02-21] MEDS: ALBUTEROL SULFATE 2.5 MG/3 ML NEBU NEB SCH ×4 (07:26→19:26)
[2023-02-21] MEDS: IPRATROPIUM BROMIDE 0.5 MG/2.5 ML NEBU NEB SCH ×4 (07:26→19:26)
[2023-02-21] MEDS: HYDROGEN PEROXIDE 3% 118 ML BOTTLE TOP SCH ×2 (07:26→19:26)
[2023-02-21 08:00] VITALS: TEMP 98
[2023-02-21] MEDS: CULTURELLE CAPSULE GT SCH ×2 (08:47→21:18)
[2023-02-21] MEDS: PROTEIN SUPPLEMENT (PROSTAT) 30 ML LIQUID GT SCH (08:47)
[2023-02-21] MEDS: PHENYTOIN 100 MG/4 ML UDC GT SCH ×2 (08:48→21:19)
[2023-02-21] MEDS: PHENOBARBITAL 64.8 MG TABLET GT SCH ×2 (08:49→21:21)
[2023-02-21] MEDS: COD LIVER OIL/ZINC OXIDE OINT 113 GM TUBE TP SCH ×2 (08:51→21:23)
[2023-02-21] MEDS: REMEDY ESSENTIAL ZINC PASTE 113 GM TP SCH ×2 (08:51→21:23)
[2023-02-21] MEDS: NEOMY/BACITRAC/POLYMI OINT 28.35 GM TUBE TOP SCH ×2 (08:51→21:23)
[2023-02-21] MEDS: CHOLECALCIFEROL 400 UNITS TABLET GT SCH ×2 (08:51→21:23)
[2023-02-21] MEDS: VITAMINS A AND D 5 GM UD PKT TP SCH ×3 (08:51)
[2023-02-21 20:00] VITALS: TEMP 98.9
[2023-02-21] MEDS: MIRALAX 17 GM POWD.PACK GT SCH (21:21)
[2023-02-22] MEDS: JEVITY 1.2 1000 ML LIQUID GT PRN (04:00)
[2023-02-22] MEDS: ARGININE/GLUTAMINE/CALCIUM BMB 1 EACH POWD.PACK GT SCH ×2 (06:05→17:33)
[2023-02-22] MEDS: BACLOFEN 10 MG TABLET GT SCH ×3 (06:05→21:07)
[2023-02-22] MEDS: ASCORBIC ACID 500 MG TABLET GT SCH (06:05)
[2023-02-22] MEDS: OMEPRAZOLE 20 MG CAPSULE.DR GT SCH ×2 (06:06→21:07)
[2023-02-22] MEDS: IPRATROPIUM BROMIDE 0.5 MG/2.5 ML NEBU NEB SCH ×4 (07:24→19:17)
[2023-02-22] MEDS: ALBUTEROL SULFATE 2.5 MG/3 ML NEBU NEB SCH ×4 (07:24→19:17)
[2023-02-22 07:26] VITALS: TEMP 97.7
[2023-02-22] MEDS: HYDROGEN PEROXIDE 3% 118 ML BOTTLE TOP SCH ×2 (07:26→19:17)
[2023-02-22] MEDS: PROTEIN SUPPLEMENT (PROSTAT) 30 ML LIQUID GT SCH (09:00)
[2023-02-22] MEDS: CULTURELLE CAPSULE GT SCH ×2 (09:26→21:07)
[2023-02-22] MEDS: PHENYTOIN 100 MG/4 ML UDC GT SCH ×2 (09:26→21:07)
[2023-02-22] MEDS: CHOLECALCIFEROL 400 UNITS TABLET GT SCH ×2 (09:26→21:07)
[2023-02-22] MEDS: PHENOBARBITAL 64.8 MG TABLET GT SCH ×2 (09:26→21:07)
[2023-02-22] MEDS: NEOMY/BACITRAC/POLYMI OINT 28.35 GM TUBE TOP SCH ×2 (09:26→21:07)
[2023-02-22] MEDS: REMEDY ESSENTIAL ZINC PASTE 113 GM TP SCH ×2 (09:27→21:07)
[2023-02-22] MEDS: VITAMINS A AND D 5 GM UD PKT TP SCH ×3 (09:27)
[2023-02-22] MEDS: COD LIVER OIL/ZINC OXIDE OINT 113 GM TUBE TP SCH ×2 (09:27→21:07)
[2023-02-22 20:00] VITALS: TEMP 96.9
[2023-02-22] MEDS: MIRALAX 17 GM POWD.PACK GT SCH (21:07)
[2023-02-23] MEDS: JEVITY 1.2 1000 ML LIQUID GT PRN (05:29)
[2023-02-23] MEDS: BACLOFEN 10 MG TABLET GT SCH ×3 (05:42→21:07)
[2023-02-23] MEDS: ARGININE/GLUTAMINE/CALCIUM BMB 1 EACH POWD.PACK GT SCH ×2 (05:42→17:17)
[2023-02-23] MEDS: ASCORBIC ACID 500 MG TABLET GT SCH (05:42)
[2023-02-23] MEDS: OMEPRAZOLE 20 MG CAPSULE.DR GT SCH ×2 (05:42→21:07)
[2023-02-23] MEDS: IPRATROPIUM BROMIDE 0.5 MG/2.5 ML NEBU NEB SCH ×4 (07:35→19:05)
[2023-02-23] MEDS: ALBUTEROL SULFATE 2.5 MG/3 ML NEBU NEB SCH ×4 (07:35→19:05)
[2023-02-23 08:00] VITALS: TEMP 97.6
[2023-02-23 08:10] VITALS: TEMP 97.6
[2023-02-23] MEDS: CULTURELLE CAPSULE GT SCH ×2 (08:42→21:06)
[2023-02-23] MEDS: PHENYTOIN 100 MG/4 ML UDC GT SCH ×2 (08:42→21:06)
[2023-02-23] MEDS: PROTEIN SUPPLEMENT (PROSTAT) 30 ML LIQUID GT SCH (08:42)
[2023-02-23] MEDS: CHOLECALCIFEROL 400 UNITS TABLET GT SCH ×2 (08:45→21:07)
[2023-02-23] MEDS: PHENOBARBITAL 64.8 MG TABLET GT SCH ×2 (08:45→21:07)
[2023-02-23] MEDS: NEOMY/BACITRAC/POLYMI OINT 28.35 GM TUBE TOP SCH ×2 (08:46→21:07)
[2023-02-23] MEDS: REMEDY ESSENTIAL ZINC PASTE 113 GM TP SCH ×2 (08:46→21:07)
[2023-02-23] MEDS: VITAMINS A AND D 5 GM UD PKT TP SCH ×3 (08:46)
[2023-02-23] MEDS: COD LIVER OIL/ZINC OXIDE OINT 113 GM TUBE TP SCH ×2 (08:46→21:07)
[2023-02-23] MEDS: HYDROGEN PEROXIDE 3% 118 ML BOTTLE TOP SCH ×2 (09:44→19:05)
[2023-02-23] MEDS ORDERED: TUBERCULIN,PURIF.PROT.DERIV. 5 TU/0.1 ML TEST ID SCH (12:00)
[2023-02-23] MEDS: NEOMY/BACITRA/POLYMYXIN B OINT UD PACKET TP SCH ×2 (14:08→14:17)
[2023-02-23 20:00] VITALS: TEMP 97
[2023-02-23] MEDS: MIRALAX 17 GM POWD.PACK GT SCH (21:07)
[2023-02-24] MEDS: JEVITY 1.2 1000 ML LIQUID GT PRN (04:41)
[2023-02-24] MEDS: BACLOFEN 10 MG TABLET GT SCH ×3 (05:14→22:33)
[2023-02-24] MEDS: ASCORBIC ACID 500 MG TABLET GT SCH (05:14)
[2023-02-24] MEDS: ARGININE/GLUTAMINE/CALCIUM BMB 1 EACH POWD.PACK GT SCH ×2 (05:14→17:12)
[2023-02-24] MEDS: OMEPRAZOLE 20 MG CAPSULE.DR GT SCH ×2 (06:26→20:31)
[2023-02-24 07:18] VITALS: TEMP 97.8
[2023-02-24] MEDS: IPRATROPIUM BROMIDE 0.5 MG/2.5 ML NEBU NEB SCH ×4 (07:32→19:13)
[2023-02-24] MEDS: ALBUTEROL SULFATE 2.5 MG/3 ML NEBU NEB SCH ×4 (07:32→19:13)
[2023-02-24] MEDS: HYDROGEN PEROXIDE 3% 118 ML BOTTLE TOP SCH ×2 (07:32→19:13)
[2023-02-24] MEDS: PROTEIN SUPPLEMENT (PROSTAT) 30 ML LIQUID GT SCH (08:00)
[2023-02-24] MEDS: CULTURELLE CAPSULE GT SCH ×2 (09:23→20:31)
[2023-02-24] MEDS: PHENYTOIN 100 MG/4 ML UDC GT SCH ×2 (09:23→20:31)
[2023-02-24] MEDS: REMEDY ESSENTIAL ZINC PASTE 113 GM TP SCH ×2 (09:25→20:31)
[2023-02-24] MEDS: PHENOBARBITAL 64.8 MG TABLET GT SCH ×2 (09:25→20:31)
[2023-02-24] MEDS: VITAMINS A AND D 5 GM UD PKT TP SCH ×3 (09:25)
[2023-02-24] MEDS: NEOMY/BACITRAC/POLYMI OINT 28.35 GM TUBE TOP SCH ×2 (09:25→20:31)
[2023-02-24] MEDS: COD LIVER OIL/ZINC OXIDE OINT 113 GM TUBE TP SCH ×2 (09:25→20:31)
[2023-02-24] MEDS: CHOLECALCIFEROL 400 UNITS TABLET GT SCH ×2 (09:25→20:31)
[2023-02-24] MEDS: NEOMY/BACITRA/POLYMYXIN B OINT UD PACKET TP SCH ×2 (13:39)
[2023-02-24 20:00] VITALS: TEMP 97.7
[2023-02-24] MEDS: MIRALAX 17 GM POWD.PACK GT SCH (20:31)
[2023-02-25] MEDS: ARGININE/GLUTAMINE/CALCIUM BMB 1 EACH POWD.PACK GT SCH ×2 (05:25→17:05)
[2023-02-25] MEDS: ASCORBIC ACID 500 MG TABLET GT SCH (05:25)
[2023-02-25] MEDS: BACLOFEN 10 MG TABLET GT SCH ×3 (05:25→22:59)
[2023-02-25] MEDS: OMEPRAZOLE 20 MG CAPSULE.DR GT SCH ×2 (06:27→20:29)
[2023-02-25] MEDS: HYDROGEN PEROXIDE 3% 118 ML BOTTLE TOP SCH ×2 (07:17→19:01)
[2023-02-25] MEDS: ALBUTEROL SULFATE 2.5 MG/3 ML NEBU NEB SCH ×4 (07:17→19:01)
[2023-02-25] MEDS: IPRATROPIUM BROMIDE 0.5 MG/2.5 ML NEBU NEB SCH ×4 (07:17→19:01)
[2023-02-25 07:19] VITALS: TEMP 97.5
[2023-02-25] MEDS: PROTEIN SUPPLEMENT (PROSTAT) 30 ML LIQUID GT SCH (08:00)
[2023-02-25] MEDS: PHENYTOIN 100 MG/4 ML UDC GT SCH ×2 (09:07→20:29)
[2023-02-25] MEDS: PHENOBARBITAL 64.8 MG TABLET GT SCH ×2 (09:07→20:29)
[2023-02-25] MEDS: CULTURELLE CAPSULE GT SCH ×2 (09:07→20:29)
[2023-02-25] MEDS: CHOLECALCIFEROL 400 UNITS TABLET GT SCH ×2 (09:09→20:29)
[2023-02-25] MEDS: NEOMY/BACITRAC/POLYMI OINT 28.35 GM TUBE TOP SCH ×2 (09:09→20:29)
[2023-02-25] MEDS: VITAMINS A AND D 5 GM UD PKT TP SCH ×3 (09:10)
[2023-02-25] MEDS: REMEDY ESSENTIAL ZINC PASTE 113 GM TP SCH ×2 (09:10→20:29)
[2023-02-25] MEDS: COD LIVER OIL/ZINC OXIDE OINT 113 GM TUBE TP SCH ×2 (09:10→20:29)
[2023-02-25] MEDS ORDERED: TUBERCULIN,PURIF.PROT.DERIV. 5 TU/0.1 ML TEST ID ONE (14:00)
[2023-02-25] MEDS: NEOMY/BACITRA/POLYMYXIN B OINT UD PACKET TP SCH ×2 (14:41)
[2023-02-25 20:00] VITALS: TEMP 97.4; TEMP 97.7
[2023-02-25] MEDS: MIRALAX 17 GM POWD.PACK GT SCH (20:29)
[2023-02-26] MEDS: ASCORBIC ACID 500 MG TABLET GT SCH (05:03)
[2023-02-26] MEDS: ARGININE/GLUTAMINE/CALCIUM BMB 1 EACH POWD.PACK GT SCH ×2 (05:03→17:15)
[2023-02-26] MEDS: JEVITY 1.2 1000 ML LIQUID GT PRN (05:03)
[2023-02-26] MEDS: BACLOFEN 10 MG TABLET GT SCH ×3 (05:03→20:51)
[2023-02-26] MEDS: OMEPRAZOLE 20 MG CAPSULE.DR GT SCH ×2 (06:28→20:49)
[2023-02-26 07:24] VITALS: TEMP 97.7
[2023-02-26] MEDS: ALBUTEROL SULFATE 2.5 MG/3 ML NEBU NEB SCH ×4 (07:35→20:10)
[2023-02-26] MEDS: IPRATROPIUM BROMIDE 0.5 MG/2.5 ML NEBU NEB SCH ×4 (07:35→20:10)
[2023-02-26] MEDS: PROTEIN SUPPLEMENT (PROSTAT) 30 ML LIQUID GT SCH (08:35)
[2023-02-26] MEDS: CULTURELLE CAPSULE GT SCH ×2 (08:46→20:44)
[2023-02-26] MEDS: NEOMY/BACITRAC/POLYMI OINT 28.35 GM TUBE TOP SCH ×2 (08:46→20:50)
[2023-02-26] MEDS: CHOLECALCIFEROL 400 UNITS TABLET GT SCH ×2 (08:46→20:49)
[2023-02-26] MEDS: PHENOBARBITAL 64.8 MG TABLET GT SCH ×2 (08:46→20:47)
[2023-02-26] MEDS: PHENYTOIN 100 MG/4 ML UDC GT SCH ×2 (08:46→20:46)
[2023-02-26] MEDS: REMEDY ESSENTIAL ZINC PASTE 113 GM TP SCH ×2 (08:47→20:51)
[2023-02-26] MEDS: VITAMINS A AND D 5 GM UD PKT TP SCH ×3 (08:47)
[2023-02-26] MEDS: HYDROGEN PEROXIDE 3% 118 ML BOTTLE TOP SCH ×2 (09:00→20:10)
[2023-02-26] MEDS: COD LIVER OIL/ZINC OXIDE OINT 113 GM TUBE TP SCH ×2 (09:00→20:50)
[2023-02-26] MEDS: NEOMY/BACITRA/POLYMYXIN B OINT UD PACKET TP SCH ×2 (13:18→14:36)
[2023-02-26 20:00] VITALS: TEMP 97.6
[2023-02-26] MEDS: MIRALAX 17 GM POWD.PACK GT SCH (20:48)
[2023-02-27] MEDS: JEVITY 1.2 1000 ML LIQUID GT PRN (02:41)
[2023-02-27] MEDS: ARGININE/GLUTAMINE/CALCIUM BMB 1 EACH POWD.PACK GT SCH ×2 (05:58→17:22)
[2023-02-27] MEDS: ASCORBIC ACID 500 MG TABLET GT SCH (05:58)
[2023-02-27] MEDS: OMEPRAZOLE 20 MG CAPSULE.DR GT SCH ×2 (05:58→21:02)
[2023-02-27] MEDS: BACLOFEN 10 MG TABLET GT SCH ×3 (05:58→21:03)
[2023-02-27 07:23] VITALS: TEMP 97.6
[2023-02-27] MEDS: ALBUTEROL SULFATE 2.5 MG/3 ML NEBU NEB SCH ×4 (07:35→19:11)
[2023-02-27] MEDS: IPRATROPIUM BROMIDE 0.5 MG/2.5 ML NEBU NEB SCH ×4 (07:35→19:11)
[2023-02-27] MEDS: PROTEIN SUPPLEMENT (PROSTAT) 30 ML LIQUID GT SCH (08:47)
[2023-02-27] MEDS: CULTURELLE CAPSULE GT SCH ×2 (08:48→20:54)
[2023-02-27] MEDS: REMEDY ESSENTIAL ZINC PASTE 113 GM TP SCH ×2 (08:50→21:03)
[2023-02-27] MEDS: COD LIVER OIL/ZINC OXIDE OINT 113 GM TUBE TP SCH ×2 (08:50→21:03)
[2023-02-27] MEDS: PHENOBARBITAL 64.8 MG TABLET GT SCH ×2 (08:50→20:59)
[2023-02-27] MEDS: PHENYTOIN 100 MG/4 ML UDC GT SCH ×2 (08:50→20:55)
[2023-02-27] MEDS: CHOLECALCIFEROL 400 UNITS TABLET GT SCH ×2 (08:50→21:02)
[2023-02-27] MEDS: VITAMINS A AND D 5 GM UD PKT TP SCH ×3 (08:51)
[2023-02-27] MEDS: HYDROGEN PEROXIDE 3% 118 ML BOTTLE TOP SCH ×2 (09:00→19:11)
[2023-02-27] MEDS: NEOMY/BACITRA/POLYMYXIN B OINT UD PACKET TP SCH ×2 (13:03→14:52)
[2023-02-27 20:00] VITALS: TEMP 97.8
[2023-02-27] MEDS: MIRALAX 17 GM POWD.PACK GT SCH (21:00)
[2023-02-28] MEDS: OMEPRAZOLE 20 MG CAPSULE.DR GT SCH ×2 (05:42→20:50)
[2023-02-28] MEDS: ARGININE/GLUTAMINE/CALCIUM BMB 1 EACH POWD.PACK GT SCH ×2 (05:42→18:06)
[2023-02-28] MEDS: ASCORBIC ACID 500 MG TABLET GT SCH (05:42)
[2023-02-28] MEDS: BACLOFEN 10 MG TABLET GT SCH ×3 (05:42→21:02)
[2023-02-28] MEDS: IPRATROPIUM BROMIDE 0.5 MG/2.5 ML NEBU NEB SCH ×4 (07:15→19:09)
[2023-02-28] MEDS: ALBUTEROL SULFATE 2.5 MG/3 ML NEBU NEB SCH ×4 (07:15→19:09)
[2023-02-28] MEDS: HYDROGEN PEROXIDE 3% 118 ML BOTTLE TOP SCH ×2 (07:15→19:09)
[2023-02-28 07:40] VITALS: TEMP 97.5
[2023-02-28] MEDS: PROTEIN SUPPLEMENT (PROSTAT) 30 ML LIQUID GT SCH (08:00)
[2023-02-28] MEDS: PHENYTOIN 100 MG/4 ML UDC GT SCH ×2 (09:01→20:49)
[2023-02-28] MEDS: PHENOBARBITAL 64.8 MG TABLET GT SCH ×2 (09:01→20:49)
[2023-02-28] MEDS: CULTURELLE CAPSULE GT SCH ×2 (09:01→20:47)
[2023-02-28] MEDS: COD LIVER OIL/ZINC OXIDE OINT 113 GM TUBE TP SCH ×2 (09:02→20:50)
[2023-02-28] MEDS: CHOLECALCIFEROL 400 UNITS TABLET GT SCH ×2 (09:02→20:50)
[2023-02-28] MEDS: REMEDY ESSENTIAL ZINC PASTE 113 GM TP SCH ×2 (09:02→20:50)
[2023-02-28] MEDS: VITAMINS A AND D 5 GM UD PKT TP SCH ×3 (09:02→09:04)
[2023-02-28] MEDS: NEOMY/BACITRA/POLYMYXIN B OINT UD PACKET TP SCH ×2 (14:05)
[2023-02-28 20:00] VITALS: TEMP 97.2
[2023-02-28] MEDS: MIRALAX 17 GM POWD.PACK GT SCH (20:50)
[2023-02-28] MEDS: JEVITY 1.2 1000 ML LIQUID GT PRN (21:00)
[2023-03-01] MEDS: BACLOFEN 10 MG TABLET GT SCH ×3 (05:35→21:00)
[2023-03-01] MEDS: ARGININE/GLUTAMINE/CALCIUM BMB 1 EACH POWD.PACK GT SCH ×2 (05:35→18:39)
[2023-03-01] MEDS: ASCORBIC ACID 500 MG TABLET GT SCH (05:35)
[2023-03-01] MEDS: OMEPRAZOLE 20 MG CAPSULE.DR GT SCH ×2 (05:35→20:59)
[2023-03-01] MEDS: ALBUTEROL SULFATE 2.5 MG/3 ML NEBU NEB SCH ×4 (07:35→19:07)
[2023-03-01] MEDS: IPRATROPIUM BROMIDE 0.5 MG/2.5 ML NEBU NEB SCH ×4 (07:35→19:07)
[2023-03-01 07:58] VITALS: TEMP 97.7
[2023-03-01] MEDS: PROTEIN SUPPLEMENT (PROSTAT) 30 ML LIQUID GT SCH (08:00)
[2023-03-01] MEDS: PHENOBARBITAL 64.8 MG TABLET GT SCH ×2 (09:00→20:59)
[2023-03-01] MEDS: CHOLECALCIFEROL 400 UNITS TABLET GT SCH ×2 (09:00→21:00)
[2023-03-01] MEDS: REMEDY ESSENTIAL ZINC PASTE 113 GM TP SCH ×2 (09:00→21:00)
[2023-03-01] MEDS: VITAMINS A AND D 5 GM UD PKT TP SCH ×3 (09:00)
[2023-03-01] MEDS: COD LIVER OIL/ZINC OXIDE OINT 113 GM TUBE TP SCH ×2 (09:00→21:00)
[2023-03-01] MEDS: CULTURELLE CAPSULE GT SCH ×2 (09:00→20:58)
[2023-03-01] MEDS: PHENYTOIN 100 MG/4 ML UDC GT SCH ×2 (09:00→20:59)
[2023-03-01] MEDS: HYDROGEN PEROXIDE 3% 118 ML BOTTLE TOP SCH ×2 (09:16→19:07)
[2023-03-01] MEDS: NEOMY/BACITRA/POLYMYXIN B OINT UD PACKET TP SCH ×2 (13:40)
[2023-03-01 20:00] VITALS: TEMP 98
[2023-03-01] MEDS: MIRALAX 17 GM POWD.PACK GT SCH (20:59)
[2023-03-01] MEDS: JEVITY 1.2 1000 ML LIQUID GT PRN (21:02)
[2023-03-02] MEDS: BACLOFEN 10 MG TABLET GT SCH ×3 (05:09→22:34)
[2023-03-02] MEDS: ASCORBIC ACID 500 MG TABLET GT SCH (05:09)
[2023-03-02] MEDS: OMEPRAZOLE 20 MG CAPSULE.DR GT SCH ×2 (05:09→20:26)
[2023-03-02] MEDS: ARGININE/GLUTAMINE/CALCIUM BMB 1 EACH POWD.PACK GT SCH ×2 (05:09→18:14)
[2023-03-02] MEDS: IPRATROPIUM BROMIDE 0.5 MG/2.5 ML NEBU NEB SCH ×4 (06:05→19:06)
[2023-03-02] MEDS: ALBUTEROL SULFATE 2.5 MG/3 ML NEBU NEB SCH ×4 (06:05→19:06)
[2023-03-02] MEDS: HYDROGEN PEROXIDE 3% 118 ML BOTTLE TOP SCH ×2 (07:24→19:06)
[2023-03-02 07:59] VITALS: TEMP 97.6
[2023-03-02] MEDS: PROTEIN SUPPLEMENT (PROSTAT) 30 ML LIQUID GT SCH (08:00)
[2023-03-02] MEDS: CULTURELLE CAPSULE GT SCH ×2 (09:24→20:26)
[2023-03-02] MEDS: CHOLECALCIFEROL 400 UNITS TABLET GT SCH ×2 (09:30→20:26)
[2023-03-02] MEDS: PHENYTOIN 100 MG/4 ML UDC GT SCH ×2 (09:30→20:26)
[2023-03-02] MEDS: COD LIVER OIL/ZINC OXIDE OINT 113 GM TUBE TP SCH ×2 (09:31→21:00)
[2023-03-02] MEDS: VITAMINS A AND D 5 GM UD PKT TP SCH ×3 (09:31)
[2023-03-02] MEDS: REMEDY ESSENTIAL ZINC PASTE 113 GM TP SCH ×2 (09:31→20:26)
[2023-03-02] MEDS: PHENOBARBITAL 64.8 MG TABLET GT SCH ×2 (09:34→20:26)
[2023-03-02] MEDS: NEOMY/BACITRA/POLYMYXIN B OINT UD PACKET TP SCH ×2 (13:19→14:58)
[2023-03-02] MEDS: MIRALAX 17 GM POWD.PACK GT SCH (20:26)
[2023-03-02 20:31] VITALS: TEMP 97.8
[2023-03-02] MEDS: JEVITY 1.2 1000 ML LIQUID GT PRN (23:47)
[2023-03-03] MEDS: ARGININE/GLUTAMINE/CALCIUM BMB 1 EACH POWD.PACK GT SCH ×2 (05:21→17:20)
[2023-03-03] MEDS: BACLOFEN 10 MG TABLET GT SCH ×3 (05:21→22:54)
[2023-03-03] MEDS: ASCORBIC ACID 500 MG TABLET GT SCH (05:21)
[2023-03-03] MEDS: OMEPRAZOLE 20 MG CAPSULE.DR GT SCH ×2 (06:18→20:09)
[2023-03-03] MEDS: ALBUTEROL SULFATE 2.5 MG/3 ML NEBU NEB SCH ×4 (07:11→19:00)
[2023-03-03] MEDS: IPRATROPIUM BROMIDE 0.5 MG/2.5 ML NEBU NEB SCH ×4 (07:11→19:00)
[2023-03-03 07:24] VITALS: TEMP 97.6
[2023-03-03] MEDS: HYDROGEN PEROXIDE 3% 118 ML BOTTLE TOP SCH ×2 (08:01→19:00)
[2023-03-03] MEDS: PROTEIN SUPPLEMENT (PROSTAT) 30 ML LIQUID GT SCH (08:53)
[2023-03-03] MEDS: PHENYTOIN 100 MG/4 ML UDC GT SCH ×2 (08:57→20:09)
[2023-03-03] MEDS: CULTURELLE CAPSULE GT SCH ×2 (08:57→20:09)
[2023-03-03] MEDS: VITAMINS A AND D 5 GM UD PKT TP SCH ×3 (09:01→09:02)
[2023-03-03] MEDS: REMEDY ESSENTIAL ZINC PASTE 113 GM TP SCH ×2 (09:01→20:09)
[2023-03-03] MEDS: PHENOBARBITAL 64.8 MG TABLET GT SCH ×2 (09:01→20:09)
[2023-03-03] MEDS: CHOLECALCIFEROL 400 UNITS TABLET GT SCH ×2 (09:01→20:09)
[2023-03-03] MEDS: COD LIVER OIL/ZINC OXIDE OINT 113 GM TUBE TP SCH ×2 (09:01→20:09)
[2023-03-03] MEDS: NEOMY/BACITRA/POLYMYXIN B OINT UD PACKET TP SCH ×2 (13:40)
[2023-03-03] MEDS: MIRALAX 17 GM POWD.PACK GT SCH (20:09)
[2023-03-03 20:38] VITALS: TEMP 98.2
[2023-03-04] MEDS: JEVITY 1.2 1000 ML LIQUID GT PRN ×2 (02:06→20:12)
[2023-03-04] MEDS: BACLOFEN 10 MG TABLET GT SCH ×3 (05:47→22:40)
[2023-03-04] MEDS: ARGININE/GLUTAMINE/CALCIUM BMB 1 EACH POWD.PACK GT SCH ×2 (05:47→17:11)
[2023-03-04] MEDS: OMEPRAZOLE 20 MG CAPSULE.DR GT SCH ×2 (05:47→20:11)
[2023-03-04] MEDS: ASCORBIC ACID 500 MG TABLET GT SCH (05:47)
[2023-03-04 07:24] VITALS: TEMP 97.4
[2023-03-04] MEDS: ALBUTEROL SULFATE 2.5 MG/3 ML NEBU NEB SCH ×4 (07:35→19:15)
[2023-03-04] MEDS: IPRATROPIUM BROMIDE 0.5 MG/2.5 ML NEBU NEB SCH ×4 (07:35→19:15)
[2023-03-04] MEDS: PHENOBARBITAL 64.8 MG TABLET GT SCH ×2 (08:26→20:11)
[2023-03-04] MEDS: PROTEIN SUPPLEMENT (PROSTAT) 30 ML LIQUID GT SCH (08:26)
[2023-03-04] MEDS: PHENYTOIN 100 MG/4 ML UDC GT SCH ×2 (08:26→20:11)
[2023-03-04] MEDS: CULTURELLE CAPSULE GT SCH ×2 (08:26→20:11)
[2023-03-04] MEDS: REMEDY ESSENTIAL ZINC PASTE 113 GM TP SCH ×2 (08:27→20:11)
[2023-03-04] MEDS: VITAMINS A AND D 5 GM UD PKT TP SCH ×3 (08:27)
[2023-03-04] MEDS: CHOLECALCIFEROL 400 UNITS TABLET GT SCH ×2 (08:27→20:11)
[2023-03-04] MEDS: COD LIVER OIL/ZINC OXIDE OINT 113 GM TUBE TP SCH ×2 (08:27→20:11)
[2023-03-04] MEDS: HYDROGEN PEROXIDE 3% 118 ML BOTTLE TOP SCH ×2 (09:00→19:15)
[2023-03-04] MEDS: NEOMY/BACITRA/POLYMYXIN B OINT UD PACKET TP SCH ×2 (14:01)
[2023-03-04 20:00] VITALS: TEMP 98
[2023-03-04] MEDS: MIRALAX 17 GM POWD.PACK GT SCH (20:11)
[2023-03-04 20:23] VITALS: TEMP 98
[2023-03-05] MEDS: ARGININE/GLUTAMINE/CALCIUM BMB 1 EACH POWD.PACK GT SCH ×2 (05:12→18:00)
[2023-03-05] MEDS: BACLOFEN 10 MG TABLET GT SCH ×3 (05:13→22:13)
[2023-03-05] MEDS: ASCORBIC ACID 500 MG TABLET GT SCH (05:13)
[2023-03-05] MEDS: JEVITY 1.2 1000 ML LIQUID GT PRN (05:13)
[2023-03-05] MEDS: OMEPRAZOLE 20 MG CAPSULE.DR GT SCH ×2 (05:43→20:48)
[2023-03-05] MEDS: ALBUTEROL SULFATE 2.5 MG/3 ML NEBU NEB SCH ×4 (07:09→19:07)
[2023-03-05] MEDS: IPRATROPIUM BROMIDE 0.5 MG/2.5 ML NEBU NEB SCH ×4 (07:09→19:07)
[2023-03-05] MEDS: PROTEIN SUPPLEMENT (PROSTAT) 30 ML LIQUID GT SCH (08:00)
[2023-03-05] MEDS: HYDROGEN PEROXIDE 3% 118 ML BOTTLE TOP SCH ×2 (08:55→19:08)
[2023-03-05] MEDS: REMEDY ESSENTIAL ZINC PASTE 113 GM TP SCH ×2 (09:00→20:49)
[2023-03-05] MEDS: CULTURELLE CAPSULE GT SCH ×2 (09:00→20:47)
[2023-03-05] MEDS: CHOLECALCIFEROL 400 UNITS TABLET GT SCH ×2 (09:00→20:48)
[2023-03-05] MEDS: PHENYTOIN 100 MG/4 ML UDC GT SCH ×2 (09:00→20:47)
[2023-03-05] MEDS: COD LIVER OIL/ZINC OXIDE OINT 113 GM TUBE TP SCH ×2 (09:00→20:49)
[2023-03-05] MEDS: PHENOBARBITAL 64.8 MG TABLET GT SCH ×2 (09:00→20:47)
[2023-03-05] MEDS: VITAMINS A AND D 5 GM UD PKT TP SCH ×3 (09:00)
[2023-03-05] MEDS: NEOMY/BACITRA/POLYMYXIN B OINT UD PACKET TP SCH ×3 (09:00→20:49)
[2023-03-05] MEDS: MIRALAX 17 GM POWD.PACK GT SCH (20:47)
[2023-03-05 23:40] VITALS: TEMP 97.7
[2023-03-06] MEDS: ASCORBIC ACID 500 MG TABLET GT SCH (05:14)
[2023-03-06] MEDS: ARGININE/GLUTAMINE/CALCIUM BMB 1 EACH POWD.PACK GT SCH ×2 (05:14→17:56)
[2023-03-06] MEDS: BACLOFEN 10 MG TABLET GT SCH ×3 (05:14→21:48)
[2023-03-06] MEDS: OMEPRAZOLE 20 MG CAPSULE.DR GT SCH ×2 (05:57→20:12)
[2023-03-06] MEDS: HYDROGEN PEROXIDE 3% 118 ML BOTTLE TOP SCH ×2 (07:36→19:06)
[2023-03-06] MEDS: ALBUTEROL SULFATE 2.5 MG/3 ML NEBU NEB SCH ×4 (07:36→19:06)
[2023-03-06] MEDS: IPRATROPIUM BROMIDE 0.5 MG/2.5 ML NEBU NEB SCH ×4 (07:36→19:06)
[2023-03-06 08:00] VITALS: TEMP 97.1
[2023-03-06] MEDS: PROTEIN SUPPLEMENT (PROSTAT) 30 ML LIQUID GT SCH (08:00)
[2023-03-06] MEDS: NEOMY/BACITRA/POLYMYXIN B OINT UD PACKET TP SCH ×3 (09:00→20:15)
[2023-03-06] MEDS: VITAMINS A AND D 5 GM UD PKT TP SCH ×3 (09:00)
[2023-03-06] MEDS: CULTURELLE CAPSULE GT SCH ×2 (09:30→20:10)
[2023-03-06] MEDS: PHENYTOIN 100 MG/4 ML UDC GT SCH ×2 (09:30→20:10)
[2023-03-06] MEDS: PHENOBARBITAL 64.8 MG TABLET GT SCH ×2 (09:31→20:10)
[2023-03-06] MEDS: CHOLECALCIFEROL 400 UNITS TABLET GT SCH ×2 (09:33→20:15)
[2023-03-06] MEDS: COD LIVER OIL/ZINC OXIDE OINT 113 GM TUBE TP SCH ×2 (09:35→20:15)
[2023-03-06] MEDS: REMEDY ESSENTIAL ZINC PASTE 113 GM TP SCH ×2 (09:35→20:15)
[2023-03-06] MEDS: MIRALAX 17 GM POWD.PACK GT SCH (20:10)
[2023-03-06 22:28] VITALS: TEMP 96.6
[2023-03-07] MEDS: ASCORBIC ACID 500 MG TABLET GT SCH (05:53)
[2023-03-07] MEDS: ARGININE/GLUTAMINE/CALCIUM BMB 1 EACH POWD.PACK GT SCH ×2 (05:53→17:06)
[2023-03-07] MEDS: JEVITY 1.2 1000 ML LIQUID GT PRN (05:53)
[2023-03-07] MEDS: BACLOFEN 10 MG TABLET GT SCH ×3 (05:53→21:14)
[2023-03-07] MEDS: OMEPRAZOLE 20 MG CAPSULE.DR GT SCH ×2 (05:53→21:14)
[2023-03-07] MEDS: IPRATROPIUM BROMIDE 0.5 MG/2.5 ML NEBU NEB SCH ×4 (07:35→19:08)
[2023-03-07] MEDS: ALBUTEROL SULFATE 2.5 MG/3 ML NEBU NEB SCH ×4 (07:35→19:08)
[2023-03-07 08:00] VITALS: BP 100/54; TEMP 97.6; O2SAT 100
[2023-03-07] MEDS: PROTEIN SUPPLEMENT (PROSTAT) 30 ML LIQUID GT SCH (08:37)
[2023-03-07] MEDS: PHENYTOIN 100 MG/4 ML UDC GT SCH ×2 (08:39→21:14)
[2023-03-07] MEDS: CULTURELLE CAPSULE GT SCH ×2 (08:39→21:14)
[2023-03-07] MEDS: PHENOBARBITAL 64.8 MG TABLET GT SCH ×2 (08:40→21:14)
[2023-03-07] MEDS: CHOLECALCIFEROL 400 UNITS TABLET GT SCH ×2 (08:43→21:14)
[2023-03-07] MEDS: COD LIVER OIL/ZINC OXIDE OINT 113 GM TUBE TP SCH ×2 (08:46→21:14)
[2023-03-07] MEDS: NEOMY/BACITRA/POLYMYXIN B OINT UD PACKET TP SCH ×3 (08:46→21:14)
[2023-03-07] MEDS: REMEDY ESSENTIAL ZINC PASTE 113 GM TP SCH ×2 (08:46→21:14)
[2023-03-07] MEDS: VITAMINS A AND D 5 GM UD PKT TP SCH ×3 (08:46)
[2023-03-07] MEDS: HYDROGEN PEROXIDE 3% 118 ML BOTTLE TOP SCH ×2 (09:41→19:08)
[2023-03-07 20:00] VITALS: TEMP 96.7
[2023-03-07] MEDS: MIRALAX 17 GM POWD.PACK GT SCH (21:14)
[2023-03-08] MEDS: JEVITY 1.2 1000 ML LIQUID GT PRN (01:00)
[2023-03-08] MEDS: OMEPRAZOLE 20 MG CAPSULE.DR GT SCH ×2 (06:36→21:09)
[2023-03-08] MEDS: BACLOFEN 10 MG TABLET GT SCH ×3 (06:36→21:11)
[2023-03-08] MEDS: ASCORBIC ACID 500 MG TABLET GT SCH (06:36)
[2023-03-08] MEDS: ARGININE/GLUTAMINE/CALCIUM BMB 1 EACH POWD.PACK GT SCH ×2 (06:36→17:21)
[2023-03-08] MEDS: ALBUTEROL SULFATE 2.5 MG/3 ML NEBU NEB SCH ×4 (07:17→19:19)
[2023-03-08] MEDS: IPRATROPIUM BROMIDE 0.5 MG/2.5 ML NEBU NEB SCH ×4 (07:17→19:19)
[2023-03-08] MEDS: HYDROGEN PEROXIDE 3% 118 ML BOTTLE TOP SCH ×2 (07:17→19:19)
[2023-03-08] MEDS: PROTEIN SUPPLEMENT (PROSTAT) 30 ML LIQUID GT SCH (08:00)
[2023-03-08 08:49] VITALS: TEMP 97.6
[2023-03-08] MEDS: NEOMY/BACITRA/POLYMYXIN B OINT UD PACKET TP SCH ×3 (09:00→21:11)
[2023-03-08] MEDS: REMEDY ESSENTIAL ZINC PASTE 113 GM TP SCH ×2 (09:00→21:11)
[2023-03-08] MEDS: CULTURELLE CAPSULE GT SCH ×2 (09:00→21:05)
[2023-03-08] MEDS: VITAMINS A AND D 5 GM UD PKT TP SCH ×3 (09:00)
[2023-03-08] MEDS: CHOLECALCIFEROL 400 UNITS TABLET GT SCH ×2 (09:00→21:09)
[2023-03-08] MEDS: PHENYTOIN 100 MG/4 ML UDC GT SCH ×2 (09:00→21:07)
[2023-03-08] MEDS: PHENOBARBITAL 64.8 MG TABLET GT SCH ×2 (09:00→21:08)
[2023-03-08] MEDS: COD LIVER OIL/ZINC OXIDE OINT 113 GM TUBE TP SCH ×2 (09:00→21:11)
[2023-03-08 20:00] VITALS: TEMP 97.1
[2023-03-08] MEDS: MIRALAX 17 GM POWD.PACK GT SCH (21:08)
[2023-03-09] MEDS: ASCORBIC ACID 500 MG TABLET GT SCH (06:02)
[2023-03-09] MEDS: ARGININE/GLUTAMINE/CALCIUM BMB 1 EACH POWD.PACK GT SCH ×2 (06:02→18:10)
[2023-03-09] MEDS: BACLOFEN 10 MG TABLET GT SCH ×3 (06:02→22:07)
[2023-03-09] MEDS: OMEPRAZOLE 20 MG CAPSULE.DR GT SCH ×2 (06:03→20:35)
[2023-03-09] MEDS: ALBUTEROL SULFATE 2.5 MG/3 ML NEBU NEB SCH ×4 (07:05→19:06)
[2023-03-09] MEDS: IPRATROPIUM BROMIDE 0.5 MG/2.5 ML NEBU NEB SCH ×4 (07:05→19:06)
[2023-03-09] MEDS: PROTEIN SUPPLEMENT (PROSTAT) 30 ML LIQUID GT SCH (08:00)
[2023-03-09 08:03] VITALS: TEMP 97.1
[2023-03-09] MEDS: COD LIVER OIL/ZINC OXIDE OINT 113 GM TUBE TP SCH ×2 (09:00→20:36)
[2023-03-09] MEDS: REMEDY ESSENTIAL ZINC PASTE 113 GM TP SCH ×2 (09:00→20:36)
[2023-03-09] MEDS: NEOMY/BACITRA/POLYMYXIN B OINT UD PACKET TP SCH ×3 (09:00→20:36)
[2023-03-09] MEDS: PHENYTOIN 100 MG/4 ML UDC GT SCH ×2 (09:00→20:33)
[2023-03-09] MEDS: VITAMINS A AND D 5 GM UD PKT TP SCH ×3 (09:00)
[2023-03-09] MEDS: CHOLECALCIFEROL 400 UNITS TABLET GT SCH ×2 (09:00→20:36)
[2023-03-09] MEDS: PHENOBARBITAL 64.8 MG TABLET GT SCH ×2 (09:00→20:39)
[2023-03-09] MEDS: CULTURELLE CAPSULE GT SCH ×2 (09:00→20:33)
[2023-03-09] MEDS: HYDROGEN PEROXIDE 3% 118 ML BOTTLE TOP SCH ×2 (09:15→19:06)
[2023-03-09 20:00] VITALS: TEMP 97.5
[2023-03-09] MEDS: MIRALAX 17 GM POWD.PACK GT SCH (20:35)
[2023-03-10] MEDS: OMEPRAZOLE 20 MG CAPSULE.DR GT SCH ×2 (05:49→20:42)
[2023-03-10] MEDS: ARGININE/GLUTAMINE/CALCIUM BMB 1 EACH POWD.PACK GT SCH ×2 (05:49→17:05)
[2023-03-10] MEDS: BACLOFEN 10 MG TABLET GT SCH ×3 (05:49→22:37)
[2023-03-10] MEDS: ASCORBIC ACID 500 MG TABLET GT SCH (05:49)
[2023-03-10] MEDS: ALBUTEROL SULFATE 2.5 MG/3 ML NEBU NEB SCH ×4 (07:06→19:30)
[2023-03-10] MEDS: HYDROGEN PEROXIDE 3% 118 ML BOTTLE TOP SCH ×3 (07:06→20:50)
[2023-03-10] MEDS: IPRATROPIUM BROMIDE 0.5 MG/2.5 ML NEBU NEB SCH ×4 (07:06→19:30)
[2023-03-10 08:00] VITALS: TEMP 96.9
[2023-03-10] MEDS: PROTEIN SUPPLEMENT (PROSTAT) 30 ML LIQUID GT SCH (08:00)
[2023-03-10] MEDS: CULTURELLE CAPSULE GT SCH ×2 (09:38→20:42)
[2023-03-10] MEDS: PHENOBARBITAL 64.8 MG TABLET GT SCH ×2 (09:39→20:42)
[2023-03-10] MEDS: CHOLECALCIFEROL 400 UNITS TABLET GT SCH ×2 (09:39→20:42)
[2023-03-10] MEDS: PHENYTOIN 100 MG/4 ML UDC GT SCH ×2 (09:39→20:42)
[2023-03-10] MEDS: COD LIVER OIL/ZINC OXIDE OINT 113 GM TUBE TP SCH ×2 (09:43→20:42)
[2023-03-10] MEDS: REMEDY ESSENTIAL ZINC PASTE 113 GM TP SCH ×2 (09:43→20:42)
[2023-03-10] MEDS: NEOMY/BACITRA/POLYMYXIN B OINT UD PACKET TP SCH ×3 (09:44→20:42)
[2023-03-10] MEDS: VITAMINS A AND D 5 GM UD PKT TP SCH ×3 (09:44)
[2023-03-10 20:00] VITALS: TEMP 97.5
[2023-03-10] MEDS: MIRALAX 17 GM POWD.PACK GT SCH (20:42)
[2023-03-11] MEDS: JEVITY 1.2 1000 ML LIQUID GT PRN (02:18)
[2023-03-11] MEDS: ARGININE/GLUTAMINE/CALCIUM BMB 1 EACH POWD.PACK GT SCH ×2 (05:22→17:11)
[2023-03-11] MEDS: ASCORBIC ACID 500 MG TABLET GT SCH (05:22)
[2023-03-11] MEDS: BACLOFEN 10 MG TABLET GT SCH ×3 (05:22→21:51)
[2023-03-11] MEDS: OMEPRAZOLE 20 MG CAPSULE.DR GT SCH ×2 (06:03→20:11)
[2023-03-11] MEDS: HYDROGEN PEROXIDE 3% 118 ML BOTTLE TOP SCH ×2 (07:32→19:14)
[2023-03-11] MEDS: ALBUTEROL SULFATE 2.5 MG/3 ML NEBU NEB SCH ×4 (07:32→19:14)
[2023-03-11] MEDS: IPRATROPIUM BROMIDE 0.5 MG/2.5 ML NEBU NEB SCH ×4 (07:32→19:14)
[2023-03-11 08:00] VITALS: TEMP 97.5
[2023-03-11] MEDS: PROTEIN SUPPLEMENT (PROSTAT) 30 ML LIQUID GT SCH (08:00)
[2023-03-11] MEDS: CHOLECALCIFEROL 400 UNITS TABLET GT SCH ×2 (09:03→20:11)
[2023-03-11] MEDS: PHENOBARBITAL 64.8 MG TABLET GT SCH ×2 (09:03→20:10)
[2023-03-11] MEDS: PHENYTOIN 100 MG/4 ML UDC GT SCH ×2 (09:03→20:10)
[2023-03-11] MEDS: CULTURELLE CAPSULE GT SCH ×2 (09:03→20:10)
[2023-03-11] MEDS: COD LIVER OIL/ZINC OXIDE OINT 113 GM TUBE TP SCH ×2 (09:03→20:11)
[2023-03-11] MEDS: VITAMINS A AND D 5 GM UD PKT TP SCH ×3 (09:03)
[2023-03-11] MEDS: REMEDY ESSENTIAL ZINC PASTE 113 GM TP SCH ×2 (09:03→20:11)
[2023-03-11] MEDS: NEOMY/BACITRA/POLYMYXIN B OINT UD PACKET TP SCH ×3 (09:03→20:11)
[2023-03-11 20:00] VITALS: TEMP 96.6
[2023-03-11] MEDS: MIRALAX 17 GM POWD.PACK GT SCH (20:10)
[2023-03-12] MEDS: ARGININE/GLUTAMINE/CALCIUM BMB 1 EACH POWD.PACK GT SCH ×2 (05:25→17:56)
[2023-03-12] MEDS: BACLOFEN 10 MG TABLET GT SCH ×3 (05:25→21:24)
[2023-03-12] MEDS: ASCORBIC ACID 500 MG TABLET GT SCH (05:25)
[2023-03-12] MEDS: OMEPRAZOLE 20 MG CAPSULE.DR GT SCH ×2 (06:03→20:07)
[2023-03-12] MEDS: ALBUTEROL SULFATE 2.5 MG/3 ML NEBU NEB SCH ×4 (07:22→19:01)
[2023-03-12] MEDS: HYDROGEN PEROXIDE 3% 118 ML BOTTLE TOP SCH ×2 (07:22→19:01)
[2023-03-12] MEDS: IPRATROPIUM BROMIDE 0.5 MG/2.5 ML NEBU NEB SCH ×4 (07:22→19:01)
[2023-03-12 08:00] VITALS: TEMP 97.4
[2023-03-12] MEDS: PROTEIN SUPPLEMENT (PROSTAT) 30 ML LIQUID GT SCH (08:00)
[2023-03-12] MEDS: CULTURELLE CAPSULE GT SCH ×2 (09:12→20:07)
[2023-03-12] MEDS: REMEDY ESSENTIAL ZINC PASTE 113 GM TP SCH ×2 (09:12→20:08)
[2023-03-12] MEDS: COD LIVER OIL/ZINC OXIDE OINT 113 GM TUBE TP SCH ×2 (09:12→20:08)
[2023-03-12] MEDS: CHOLECALCIFEROL 400 UNITS TABLET GT SCH ×2 (09:12→20:08)
[2023-03-12] MEDS: PHENOBARBITAL 64.8 MG TABLET GT SCH ×2 (09:12→20:07)
[2023-03-12] MEDS: PHENYTOIN 100 MG/4 ML UDC GT SCH ×2 (09:12→20:07)
[2023-03-12] MEDS: VITAMINS A AND D 5 GM UD PKT TP SCH ×3 (09:13)
[2023-03-12] MEDS: NEOMY/BACITRA/POLYMYXIN B OINT UD PACKET TP SCH ×3 (09:13→20:08)
[2023-03-12 20:00] VITALS: TEMP 97.2
[2023-03-12] MEDS: MIRALAX 17 GM POWD.PACK GT SCH (20:07)
[2023-03-13] MEDS: ARGININE/GLUTAMINE/CALCIUM BMB 1 EACH POWD.PACK GT SCH ×2 (05:06→18:00)
[2023-03-13] MEDS: BACLOFEN 10 MG TABLET GT SCH ×3 (05:06→21:28)
[2023-03-13] MEDS: JEVITY 1.2 1000 ML LIQUID GT PRN (05:07)
[2023-03-13] MEDS: ASCORBIC ACID 500 MG TABLET GT SCH (05:07)
[2023-03-13] MEDS: OMEPRAZOLE 20 MG CAPSULE.DR GT SCH ×2 (05:40→20:14)
[2023-03-13 07:55] VITALS: TEMP 97.5
[2023-03-13] MEDS: IPRATROPIUM BROMIDE 0.5 MG/2.5 ML NEBU NEB SCH ×4 (08:00→19:04)
[2023-03-13] MEDS: PROTEIN SUPPLEMENT (PROSTAT) 30 ML LIQUID GT SCH (08:00)
[2023-03-13] MEDS: ALBUTEROL SULFATE 2.5 MG/3 ML NEBU NEB SCH ×4 (08:00→19:04)
[2023-03-13] MEDS: HYDROGEN PEROXIDE 3% 118 ML BOTTLE TOP SCH ×2 (08:01→20:43)
[2023-03-13] MEDS: PHENYTOIN 100 MG/4 ML UDC GT SCH ×2 (09:48→20:14)
[2023-03-13] MEDS: PHENOBARBITAL 64.8 MG TABLET GT SCH ×2 (09:48→20:14)
[2023-03-13] MEDS: CHOLECALCIFEROL 400 UNITS TABLET GT SCH ×2 (09:48→20:14)
[2023-03-13] MEDS: CULTURELLE CAPSULE GT SCH ×2 (09:48→20:14)
[2023-03-13] MEDS: REMEDY ESSENTIAL ZINC PASTE 113 GM TP SCH ×2 (09:49→20:14)
[2023-03-13] MEDS: NEOMY/BACITRA/POLYMYXIN B OINT UD PACKET TP SCH ×3 (09:49→20:15)
[2023-03-13] MEDS: VITAMINS A AND D 5 GM UD PKT TP SCH ×3 (09:49)
[2023-03-13] MEDS: COD LIVER OIL/ZINC OXIDE OINT 113 GM TUBE TP SCH ×2 (09:49→20:14)
[2023-03-13 20:00] VITALS: TEMP 97.4
[2023-03-13] MEDS: MIRALAX 17 GM POWD.PACK GT SCH (20:14)
[2023-03-14] MEDS: ARGININE/GLUTAMINE/CALCIUM BMB 1 EACH POWD.PACK GT SCH ×2 (05:06→18:48)
[2023-03-14] MEDS: ASCORBIC ACID 500 MG TABLET GT SCH (05:06)
[2023-03-14] MEDS: BACLOFEN 10 MG TABLET GT SCH ×3 (05:06→22:00)
[2023-03-14] MEDS: JEVITY 1.2 1000 ML LIQUID GT PRN (05:07)
[2023-03-14] MEDS: OMEPRAZOLE 20 MG CAPSULE.DR GT SCH ×2 (05:48→21:17)
[2023-03-14] MEDS: HYDROGEN PEROXIDE 3% 118 ML BOTTLE TOP SCH ×2 (07:08→19:04)
[2023-03-14] MEDS: ALBUTEROL SULFATE 2.5 MG/3 ML NEBU NEB SCH ×4 (07:08→19:04)
[2023-03-14] MEDS: IPRATROPIUM BROMIDE 0.5 MG/2.5 ML NEBU NEB SCH ×4 (07:08→19:04)
[2023-03-14 07:59] VITALS: TEMP 97.7
[2023-03-14] MEDS: PROTEIN SUPPLEMENT (PROSTAT) 30 ML LIQUID GT SCH (08:16)
[2023-03-14] MEDS: CULTURELLE CAPSULE GT SCH ×2 (08:18→21:12)
[2023-03-14] MEDS: PHENYTOIN 100 MG/4 ML UDC GT SCH ×2 (08:18→21:17)
[2023-03-14] MEDS: NEOMY/BACITRA/POLYMYXIN B OINT UD PACKET TP SCH ×3 (08:22→21:18)
[2023-03-14] MEDS: PHENOBARBITAL 64.8 MG TABLET GT SCH ×2 (08:22→21:17)
[2023-03-14] MEDS: COD LIVER OIL/ZINC OXIDE OINT 113 GM TUBE TP SCH ×2 (08:22→21:18)
[2023-03-14] MEDS: CHOLECALCIFEROL 400 UNITS TABLET GT SCH ×2 (08:22→21:17)
[2023-03-14] MEDS: REMEDY ESSENTIAL ZINC PASTE 113 GM TP SCH ×2 (08:22→21:18)
[2023-03-14] MEDS: VITAMINS A AND D 5 GM UD PKT TP SCH ×3 (08:23)
[2023-03-14 20:49] VITALS: TEMP 98.2
[2023-03-14] MEDS: MIRALAX 17 GM POWD.PACK GT SCH (21:17)
[2023-03-15] MEDS: JEVITY 1.2 1000 ML LIQUID GT PRN (05:00)
[2023-03-15] MEDS: ARGININE/GLUTAMINE/CALCIUM BMB 1 EACH POWD.PACK GT SCH ×2 (05:04→18:13)
[2023-03-15] MEDS: BACLOFEN 10 MG TABLET GT SCH ×3 (05:04→22:00)
[2023-03-15] MEDS: ASCORBIC ACID 500 MG TABLET GT SCH (05:04)
[2023-03-15] MEDS: OMEPRAZOLE 20 MG CAPSULE.DR GT SCH ×2 (05:04→20:23)
[2023-03-15 08:00] VITALS: TEMP 97.6
[2023-03-15] MEDS: PROTEIN SUPPLEMENT (PROSTAT) 30 ML LIQUID GT SCH (08:00)
[2023-03-15] MEDS: IPRATROPIUM BROMIDE 0.5 MG/2.5 ML NEBU NEB SCH ×4 (08:10→19:10)
[2023-03-15] MEDS: ALBUTEROL SULFATE 2.5 MG/3 ML NEBU NEB SCH ×4 (08:10→19:10)
[2023-03-15] MEDS: HYDROGEN PEROXIDE 3% 118 ML BOTTLE TOP SCH ×2 (08:11→19:10)
[2023-03-15] MEDS: REMEDY ESSENTIAL ZINC PASTE 113 GM TP SCH ×2 (09:00→20:24)
[2023-03-15] MEDS: NEOMY/BACITRA/POLYMYXIN B OINT UD PACKET TP SCH ×3 (09:00→20:24)
[2023-03-15] MEDS: VITAMINS A AND D 5 GM UD PKT TP SCH ×3 (09:00)
[2023-03-15] MEDS: PHENYTOIN 100 MG/4 ML UDC GT SCH ×2 (09:48→20:23)
[2023-03-15] MEDS: CULTURELLE CAPSULE GT SCH ×2 (09:48→20:23)
[2023-03-15] MEDS: PHENOBARBITAL 64.8 MG TABLET GT SCH ×2 (09:49→20:23)
[2023-03-15] MEDS: CHOLECALCIFEROL 400 UNITS TABLET GT SCH ×2 (09:50→20:24)
[2023-03-15] MEDS: COD LIVER OIL/ZINC OXIDE OINT 113 GM TUBE TP SCH ×2 (09:50→20:24)
[2023-03-15 20:00] VITALS: TEMP 97.2
[2023-03-15] MEDS: MIRALAX 17 GM POWD.PACK GT SCH (20:23)
[2023-03-16] MEDS: JEVITY 1.2 1000 ML LIQUID GT PRN (05:00)
[2023-03-16] MEDS: BACLOFEN 10 MG TABLET GT SCH ×3 (05:08→21:58)
[2023-03-16] MEDS: ASCORBIC ACID 500 MG TABLET GT SCH (05:08)
[2023-03-16] MEDS: OMEPRAZOLE 20 MG CAPSULE.DR GT SCH ×2 (05:08→21:00)
[2023-03-16] MEDS: ARGININE/GLUTAMINE/CALCIUM BMB 1 EACH POWD.PACK GT SCH ×2 (05:08→17:12)
[2023-03-16] MEDS: ALBUTEROL SULFATE 2.5 MG/3 ML NEBU NEB SCH ×4 (07:08→19:07)
[2023-03-16] MEDS: IPRATROPIUM BROMIDE 0.5 MG/2.5 ML NEBU NEB SCH ×4 (07:08→19:07)
[2023-03-16] MEDS: HYDROGEN PEROXIDE 3% 118 ML BOTTLE TOP SCH ×2 (07:08→19:07)
[2023-03-16 07:54] VITALS: TEMP 97.7
[2023-03-16] MEDS: PROTEIN SUPPLEMENT (PROSTAT) 30 ML LIQUID GT SCH (08:53)
[2023-03-16] MEDS: CULTURELLE CAPSULE GT SCH ×2 (08:53→21:55)
[2023-03-16] MEDS: COD LIVER OIL/ZINC OXIDE OINT 113 GM TUBE TP SCH ×3 (08:54→21:00)
[2023-03-16] MEDS: REMEDY ESSENTIAL ZINC PASTE 113 GM TP SCH ×2 (08:54→21:00)
[2023-03-16] MEDS: NEOMY/BACITRA/POLYMYXIN B OINT UD PACKET TP SCH ×3 (08:54→21:00)
[2023-03-16] MEDS: PHENYTOIN 100 MG/4 ML UDC GT SCH ×2 (08:54→21:00)
[2023-03-16] MEDS: CHOLECALCIFEROL 400 UNITS TABLET GT SCH ×2 (08:54→21:00)
[2023-03-16] MEDS: PHENOBARBITAL 64.8 MG TABLET GT SCH ×2 (08:54→21:00)
[2023-03-16] MEDS: VITAMINS A AND D 5 GM UD PKT TP SCH ×3 (08:54)
[2023-03-16 20:00] VITALS: TEMP 97
[2023-03-16] MEDS: NYSTATIN CREAM 30 GM TUBE TP SCH (21:00)
[2023-03-16] MEDS: TRIAMCINOLONE ACET 0.1% CREAM 15 GM TUBE TP SCH (21:00)
[2023-03-16] MEDS: MIRALAX 17 GM POWD.PACK GT SCH (21:00)
[2023-03-17] MEDS: BACLOFEN 10 MG TABLET GT SCH ×3 (05:45→22:00)
[2023-03-17] MEDS: ASCORBIC ACID 500 MG TABLET GT SCH (05:45)
[2023-03-17] MEDS: OMEPRAZOLE 20 MG CAPSULE.DR GT SCH ×2 (05:45→20:31)
[2023-03-17] MEDS: ARGININE/GLUTAMINE/CALCIUM BMB 1 EACH POWD.PACK GT SCH ×2 (05:45→17:01)
[2023-03-17 07:18] VITALS: TEMP 97.8
[2023-03-17] MEDS: HYDROGEN PEROXIDE 3% 118 ML BOTTLE TOP SCH ×2 (07:35→19:05)
[2023-03-17] MEDS: ALBUTEROL SULFATE 2.5 MG/3 ML NEBU NEB SCH ×4 (07:35→19:05)
[2023-03-17] MEDS: IPRATROPIUM BROMIDE 0.5 MG/2.5 ML NEBU NEB SCH ×4 (07:35→19:05)
[2023-03-17] MEDS: PROTEIN SUPPLEMENT (PROSTAT) 30 ML LIQUID GT SCH (08:27)
[2023-03-17] MEDS: CULTURELLE CAPSULE GT SCH ×2 (08:29→20:31)
[2023-03-17] MEDS: PHENYTOIN 100 MG/4 ML UDC GT SCH ×2 (08:29→20:31)
[2023-03-17] MEDS: TRIAMCINOLONE ACET 0.1% CREAM 15 GM TUBE TP SCH ×2 (08:30→20:32)
[2023-03-17] MEDS: PHENOBARBITAL 64.8 MG TABLET GT SCH ×2 (08:30→20:31)
[2023-03-17] MEDS: CHOLECALCIFEROL 400 UNITS TABLET GT SCH ×2 (08:30→20:31)
[2023-03-17] MEDS: COD LIVER OIL/ZINC OXIDE OINT 113 GM TUBE TP SCH ×4 (08:30→20:32)
[2023-03-17] MEDS: VITAMINS A AND D 5 GM UD PKT TP SCH ×3 (08:31)
[2023-03-17] MEDS: REMEDY ESSENTIAL ZINC PASTE 113 GM TP SCH ×2 (08:31→20:32)
[2023-03-17] MEDS: NEOMY/BACITRA/POLYMYXIN B OINT UD PACKET TP SCH ×3 (08:31→20:32)
[2023-03-17] MEDS: NYSTATIN CREAM 30 GM TUBE TP SCH ×2 (08:31→20:32)
[2023-03-17] MEDS: JEVITY 1.2 1000 ML LIQUID GT PRN (11:44)
[2023-03-17 20:00] VITALS: TEMP 97.4
[2023-03-17] MEDS: MIRALAX 17 GM POWD.PACK GT SCH (20:31)
[2023-03-18] MEDS: ARGININE/GLUTAMINE/CALCIUM BMB 1 EACH POWD.PACK GT SCH (05:20)
[2023-03-18] MEDS: ASCORBIC ACID 500 MG TABLET GT SCH (05:20)
[2023-03-18] MEDS: BACLOFEN 10 MG TABLET GT SCH (05:20)
[2023-03-18] MEDS: OMEPRAZOLE 20 MG CAPSULE.DR GT SCH (06:24)
[2023-03-18] MEDS: JEVITY 1.2 1000 ML LIQUID GT PRN (06:24)
== END 2023-03-16 23:59 | disposition still patient (30) | DRG 207 ==
LOC: SA → UNDOADMIN 03-19 06:25 → SA 03-19 06:25 → SA1 10-10 22:10 → SA 10-13 18:06
PROVIDERS: ADMIT Internal Medicine Pulmonary Disease; ATTEND Internal Medicine Pulmonary Disease
PROC: 5A1955Z Respiratory Ventilation, Greater than 96 Consecutive Hours (ICD-10-PCS; principal; 2022-03-17)
PROC: 05H633Z Insertion of Infusion Device into Left Subclavian Vein, Percutaneous Approach (ICD-10-PCS; 2022-03-25)
PROC: B547ZZA Ultrasonography of Left Subclavian Vein, Guidance (ICD-10-PCS; 2022-03-25)
PROC: 05H533Z Insertion of Infusion Device into Right Subclavian Vein, Percutaneous Approach (ICD-10-PCS; 2022-10-09)
PROC: B546ZZA Ultrasonography of Right Subclavian Vein, Guidance (ICD-10-PCS; 2022-10-09)
PROC: 05HC33Z Insertion of Infusion Device into Left Basilic Vein, Percutaneous Approach (ICD-10-PCS; 2022-10-18)
DX: J96.11 Chronic respiratory failure with hypoxia (principal); G82.50 Quadriplegia, unspecified; G93.1 Anoxic brain damage, not elsewhere classified; D68.69 Other thrombophilia; Z99.11 Dependence on respirator [ventilator] status; K94.22 Gastrostomy infection; D68.59 Other primary thrombophilia; M46.28 Osteomyelitis of vertebra, sacral and sacrococcygeal region; K31.6 Fistula of stomach and duodenum; L03.311 Cellulitis of abdominal wall; G40.909 Epilepsy, unspecified, not intractable, without status epilepticus; Z74.09 Other reduced mobility; D69.6 Thrombocytopenia, unspecified; K59.09 Other constipation; L25.9 Unspecified contact dermatitis, unspecified cause; R13.10 Dysphagia, unspecified; Z86.16 Personal history of COVID-19; Z91.51 Personal history of suicidal behavior; Z93.0 Tracheostomy status; X83.8XXS Intentional self-harm by other specified means, sequela; Z86.74 Personal history of sudden cardiac arrest; N43.3 Hydrocele, unspecified; M12.9 Arthropathy, unspecified; D63.8 Anemia in other chronic diseases classified elsewhere; E11.65 Type 2 diabetes mellitus with hyperglycemia; E08.69 Diabetes mellitus due to underlying condition with other specified complication; E11.69 Type 2 diabetes mellitus with other specified complication; I10 Essential (primary) hypertension; I25.2 Old myocardial infarction; I69.365 Other paralytic syndrome following cerebral infarction, bilateral; S06.6XAD Traumatic subarachnoid hemorrhage with loss of consciousness status unknown, subsequent encounter; V89.2XXS Person injured in unspecified motor-vehicle accident, traffic, sequela; L82.1 Other seborrheic keratosis; N20.0 Calculus of kidney; Z86.718 Personal history of other venous thrombosis and embolism
CPT/HCPCS: 36415; 71045; 74018; 80184; 83735; 84100; 84520; 85025; 86580; 94003; 94640; 94664; 99082-TC; A4663; A6209; A6213; J2185; J2543; J3370; J3490; J7042; J7050; Q9963; U0003

== ENCOUNTER → 2022-03-24 | Outpatient (CLI) | payer MEDICARE, MEDICAID | END | disposition home or self-care (01) | LOC: RAD 09:53 | PROVIDERS: ATTEND Internal Medicine | DX: N20.0 Calculus of kidney (principal); R16.1 Splenomegaly, not elsewhere classified; I70.0 Atherosclerosis of aorta; M47.816 Spondylosis without myelopathy or radiculopathy, lumbar region; R16.0 Hepatomegaly, not elsewhere classified | CPT/HCPCS: 74150 ==

== ENCOUNTER 2022-10-19 14:52 | Outpatient (CLI) | payer MEDICARE, OTHER | END 2022-10-19 23:59 | disposition home or self-care (01) | LOC: CT 14:52 | PROVIDERS: ATTEND Physician Assistant | DX: N20.0 Calculus of kidney (principal); K40.90 Unilateral inguinal hernia, without obstruction or gangrene, not specified as recurrent; M16.0 Bilateral primary osteoarthritis of hip; K82.8 Other specified diseases of gallbladder; R10.9 Unspecified abdominal pain; R16.1 Splenomegaly, not elsewhere classified; J98.11 Atelectasis; K63.89 Other specified diseases of intestine; I25.10 Atherosclerotic heart disease of native coronary artery without angina pectoris; R60.9 Edema, unspecified; K63.2 Fistula of intestine ==